=== PATIENT | female | born 1945 | race Caucasian/White ===

== ENCOUNTER → 2020-05-12 | Outpatient (CLI) | payer MEDICARE, OTHER, SELFPAY ==
[2016-10-01 10:11] VITALS: BMI 30.9
== END | disposition home or self-care (01) ==
PROVIDERS: PCP Family Medicine; Referring Provider Urology; Visit Provider Urology
DX: N39.0 Urinary tract infection, site not specified (principal)
CPT/HCPCS: 87086; 87088; 87186

== ENCOUNTER → 2020-10-13 | Outpatient (CLI) | payer MEDICARE, OTHER, SELFPAY | END | disposition home or self-care (01) | LOC: LABSPEC 17:04 | PROVIDERS: PCP Family Medicine; Visit Provider Nurse Practitioner Adult Health | DX: N30.00 Acute cystitis without hematuria (principal) | CPT/HCPCS: 87086; 87088; 87186 ==

== ENCOUNTER → 2020-11-17 10:15 | Outpatient (CLI) | payer MEDICARE, OTHER, SELFPAY ==
--- NOTE | 2020-11-17 10:40 | RAD_ITS ---
CLINICAL HISTORY: Female, 75 years old. Two-week history of knee pain. PROCEDURE: ARTHROGRAM - RIGHT KNEE CONSENT: The procedure as well as the benefits and possible complications including bleeding and infection were expanded to the patient. Informed consent was obtained. FLUOROSCOPY TIME (if supplied): (91 seconds) minutes/seconds Injection Information: 10 cc of dilute MRI contrast. Number of images obtained: 1 TECHNIQUE: (All elements of maximal sterile barrier technique followed, including US elements as applicable) The patient was in the supine position. The overlying skin was prepped and draped in usual sterile fashion. Following local anesthetic application and under direct fluoroscopic guidance, a 22-gauge spinal needle was placed into the knee joint. 10 cc of dilute MRI contrast was injected. The patient tolerated the procedure well. A CT scan will follow. RAD/Arthrogram Knee IMPRESSION: Successful right knee arthrogram. Electronically Signed: Conrado Harrison MD at 12:55 EDT , Service support ,
--- NOTE | 2020-11-17 11:02 | CT_ITS ---
STUDY: CT LEFT KNEE WITH CONTRAST REASON FOR EXAM: Female, 75 years old. Left knee pain following injury. RADIATION DOSAGE (If Supplied By Facility): CTDIvol = ( 15.35 ) mGy, DLP = ( 480.41 ) mGycm TECHNIQUE: Transaxial CT imaging of the knee was performed post intra-articular contrast administration of 10 cc of the MRI contrast. The examination was performed without intravenous administration of . Individualized dose optimization techniques were used for this CT. COMPARISON: None. FINDINGS: Subchondral sclerosis of the medial tibial plateau. Moderate degree of a joint space narrowing of the medial compartment of the knee joint. Normal lateral femoral condyle and lateral tibial plateau. There is preservation of the articular joint space of the lateral knee compartment. Normal proximal tibiofibular articulation. There is no joint effusion. There is no demonstrated abnormal enhancement. The quadriceps tendon is grossly normal. The patellar tendon is grossly normal. Normal Hoffa''s fat pad. The soft tissues are unremarkable. CT/Extremity Lower WITH Contrast IMPRESSION: Moderate degree of the joint space narrowing of the medial compartment of the knee joint with subchondral sclerosis of the medial tibial plateau. Electronically Signed: Conrado Harrison MD at 13:01 EDT , Service support ,
== END ==
PROVIDERS: PCP Family Medicine; Referring Provider Physician Assistant Surgical; Visit Provider Physician Assistant Surgical
DX: M17.12 Unilateral primary osteoarthritis, left knee (principal); S83.8X2A Sprain of other specified parts of left knee, initial encounter
CPT/HCPCS: 27369; 73580; 73701; A9575; Q9967

== ENCOUNTER → 2021-02-20 10:01 | Outpatient (CLI) | payer MEDICARE, OTHER, SELFPAY ==
[2021-02-20 12:43] LABS: Absolute Lymphocyte Count 2.08 X10^3/uL (0.83-4.51); Absolute Neutrophil Count 5.1 X10^3/uL (2.0-7.7); Basophil# 0.07 X10^3/uL; Basophil% 0.9 % (0-1); Eosinophil# 0.21 X10^3/uL; Eosinophils% 2.6 % (0-5); Hematocrit 43.3 % (37-47); Hemoglobin 14.2 g/dL (12.0-15.0); Lymphocyte # 2.08 X10^3/ul (0.83-4.51); Lymphocyte % 25.8 % (19-41); Mean Corp Hgb Conc 32.8 g/dL (32-36); Mean Corpuscular Hgb 31.5 pg (27.0-32.0); Mean Platelet Vol. 9.7 fl (6.2-12.0); Monocyte# 0.53 X10^3/uL; Monocyte% 6.6 % (0-10); NRBC Flagged by Analyzer 0 % (0-5); Neutrophil # 5.14 X10^3/uL (2.7-7.7); Neutrophil % 63.9 % (47-70); Platelet Count 351 K/mm3 (150-450); RBC Distribution Width CV 12.6 % (11.6-14.6); RBC Distribution Width SD 44.9 fl (35.1-43.9); Red Blood Count 4.51 M/mm3 (4.2-5.4); White Blood Count 8.1 K/mm3 (4.4-11.0)
[2021-02-20 12:57] LABS: Vitamin D,25 Hydroxy 36.7 ng/mL
[2021-02-20 13:04] LABS: AST(SGOT) 21 U/L (15-37); Alanine Aminotransfer ALT/SGPT 32 U/L (13-56); Albumin, Serum 3.8 g/dL (3.2-5.0); Alkaline Phosphatase 95 U/L (45-117); Anion Gap 8 (5-15); BUN 24 mg/dL (7-18); BUN/Creat Ratio 28.3 RATIO (10-20); Calcium,Total 9.4 mg/dL (8.5-10.1); Chloride 103 mmol/L (98-107); Creatinine, Serum 0.85 mg/dL (0.55-1.02); EST Glomerular Filtration Rate 69 mL/min (>60); Est Glom Filt Rate - Afr Amer 83 mL/min (>60); Globulin 3.7 g/dL (2.2-4.2); Glucose 96 mg/dL (74-106); Potassium 4.1 mmol/L (3.5-5.1); Protein, Total 7.5 g/dL (6.4-8.2); Sodium Level 137 mmol/L (136-145); Thyroid Stim Hormone (TSH) 4.24 uIU/mL (0.358-3.74)
== END ==
PROVIDERS: PCP Family Medicine Geriatric Medicine; Visit Provider Family Medicine Geriatric Medicine
DX: E55.9 Vitamin D deficiency, unspecified (principal); R53.83 Other fatigue
CPT/HCPCS: 36415; 80053; 82306; 84443; 85025

== ENCOUNTER → 2021-03-25 17:01 | Outpatient (CLI) | payer MEDICARE, OTHER, SELFPAY ==
--- NOTE | 2021-03-25 17:20 | CT_ITS ---
STUDY: CT BRAIN WITHOUT CONTRAST REASON FOR EXAM: Female, 75 years old. Injury. RADIATION DOSAGE (If Supplied By Facility): CTDIvol = ( 44.99 ) mGy, DLP = ( 779.24 ) mGycm TECHNIQUE: Transaxial CT imaging of the brain was performed without administration of intravenous contrast material. Individualized dose optimization techniques were used for this CT. COMPARISON: No relevant priors. FINDINGS: Normal soft tissue structures. Normal calvarium. There is mild cerebral atrophy with widening of the extra-axial spaces and ventricular dilatation. There are areas of decreased attenuation within the white matter tracts of the supratentorial brain, consistent with microvascular disease changes. There are small punctate calcifications of the basal ganglia which are seen in the aging brain as a normal variant. Normal brainstem. Normal cerebellum. 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 There is no intracranial hemorrhage. There are no findings of an acute ischemic infarction. Normal visualized paranasal sinuses. CT/Brain/Head without Contrast IMPRESSION: Chronic involutional changes without evidence of acute intracranial or calvarial abnormality. Electronically Signed: Charles Jasmine DO at 17:37 EST Tel [phone], Service support ,
[2021-03-25 18:17] LABS: Thyroid Stim Hormone (TSH) 3.13 uIU/mL (0.358-3.74)
== END ==
PROVIDERS: PCP Family Medicine Geriatric Medicine; Visit Provider Family Medicine Geriatric Medicine
DX: E03.9 Hypothyroidism, unspecified (principal); S09.90XD Unspecified injury of head, subsequent encounter
CPT/HCPCS: 36415; 70450; 84443

== ENCOUNTER 2021-05-02 10:52 | Emergency (ER) | payer MEDICARE, OTHER, SELFPAY ==
[2021-05-02 10:53] VITALS: BP 149/79; PULSE 86; RESP 16; TEMP 36.2; O2SAT 96; BMI 28.5
--- NOTE | 2021-05-02 11:14 | RAD_ITS ---
STUDY: X-RAY - RIGHT KNEE REASON FOR EXAM: Female, 75 years old. trauma fall this morning onto the knee TECHNIQUE: 4 view(s) of the knee. COMPARISON: None. FINDINGS: The knee is intact and located without fractures or lesions. There is moderate degeneration of the medial weightbearing compartment and mild patellofemoral. There is a small joint effusion. RAD/Knee 4 or More Views IMPRESSION: No acute osseous injury. Small joint effusion. Moderate medial compartment degeneration. Electronically Signed: Corazon Mcduffie MD at 11:47 EST Tel , Service support ,
--- NOTE | 2021-05-02 12:15 | EDS_ITS ---
HPI History of Present Illness Chief Complaint: Lower Extremity Injury Narrative Narrative: Patient fell out of bed injuring her right knee. She did not sustain any other injury. No head injury no loss consciousness no neck pain no upper extremity injury no chest pain or back pain [facility] Medical History GERD (gastroesophageal reflux disease) Hypothyroid Home Medications hydrocodone-acetaminophen 1 tab PO QHS PRN 3 Days #10 tab 05/02/21 [Rx Last Taken Unknown] Allergy/AdvReac Type Severity Reaction Status Date / Time rofecoxib [From Vioxx] Allergy Other Verified 05/02/21 10:54 Surgical History H/O lateral meniscus repair of right knee Social History Smoking Status: Never smoker ROS ROS ED ROS Narrative Past medical history: Reviewed Medications: Reviewed Social history: Noncontributory Review of systems: Musculoskeletal: Knee injury as in HPI Skin: No abrasions or lacerations Neurological: No weakness or paresthesias Hematologic: No easy bleeding or easy bruising EXAM Physical Exam Narrative Exam Narrative: Physical exam General: Patient does not appear in significant distress . Head: Normocephalic, Atraumatic Neck: No C-spine tenderness Cardiovascular: Normal distal pulses Back: Nontender, Normal Inspection. Extremities: Right knee shows normal knee there is a very slight effusion medially. No laxity to any other stressors normal extensor mechanism. Skin: No abrasions, no lacerations Neurological: Normal strength and sensation Const Vital Signs: 05/02/21 10:53 Temperature 97.2 F L Temperature Source Temporal Pulse Rate 86 Respiratory Rate 16 Blood Pressure 149/79 H Blood Pressure Mean 102 Pulse Ox 96 Oxygen Delivery Method Room Air MDM MDM MDM Narrative Medical decision making narrative: X-ray read by me and radiologist does not show any fracture. There is a small effusion. Patient be discharged with analgesia. No fracture. She is referred to orthopedics if she still has pain in a few days. Radiography Diagnostic Testing: Clinical Impression(s) from Imaging Studies Knee X-Ray 05/02/21 11:14 IMPRESSION: No acute osseous injury. Small joint effusion. Moderate medial compartment degeneration. Electronically Signed: Corazon Mcduffie MD at 11:47 EST Tel , Service support , Discharge Plan Triage Chief Complaint: Lower Extremity Injury ED Provider: Quentin Joya Dx/Rx/DC Orders Clinical Impression: Knee strain Instructions: ED Hip Strain Prescriptions: New hydrocodone-acetaminophen 5-325 mg tablet 1 tab PO QHS PRN (Reason: pain) 3 Days Qty: 10 RF: 0 Primary Care Provider: Israel Tucker Chi Referrals: Ty Sorensen DO [STAFF PHYSICIAN] - Israel Tucker Chi, MD [Primary Care Provider] -
== END 2021-05-02 13:42 | disposition home or self-care (01) ==
PROVIDERS: Emergency Provider Emergency Medicine; PCP Family Medicine Geriatric Medicine
DX: S76.911A Strain of unspecified muscles, fascia and tendons at thigh level, right thigh, initial encounter (principal); W06.XXXA Fall from bed, initial encounter
CPT/HCPCS: 73564; 99281; 99282

== ENCOUNTER 2021-05-21 13:23 | Outpatient (CLI) | payer MEDICARE, OTHER, SELFPAY ==
--- NOTE | 2021-05-21 13:40 | CT_ITS ---
STUDY: CT RIGHT KNEE WITHOUT CONTRAST REASON FOR EXAM: Female, 75 years old. CONTUSION RADIATION DOSAGE (If Supplied By Facility): CTDIvol = ( 15.35 ) mGy, DLP = ( 530.30 ) mGycm TECHNIQUE: Transaxial CT imaging of the knee was performed post contrast administration. The examination was performed without intravenous administration of . Individualized dose optimization techniques were used for this CT. COMPARISON: None. FINDINGS: Degenerative spur formation along the medial femoral condyle. Moderate degree of joint space of the medial compartment of the knee joint. Degenerative spur formation of the lateral femoral condyle. Mild degree of lateral compartment joint space narrowing. Normal proximal tibiofibular articulation. There is no joint effusion. There is no demonstrated abnormal enhancement. The quadriceps tendon is grossly normal. The patellar tendon is grossly normal. Normal Hoffa''s fat pad. Vascular calcification. CT/Extremity Lower without Contra IMPRESSION: Moderate degree of joint space narrowing of the medial compartment knee joint with mild degree of joint space narrowing of the lateral compartment and patellofemoral joint. Electronically Signed: Conrado Harrison MD at 14:14 EST , Service support ,
== END 2021-05-21 23:59 | disposition short-term general hospital (02) ==
LOC: CT 13:28
PROVIDERS: PCP Family Medicine Geriatric Medicine; Referring Provider Physician Assistant Surgical; Visit Provider Physician Assistant Surgical
DX: S80.01XA Contusion of right knee, initial encounter (principal)
CPT/HCPCS: 73700

== ENCOUNTER 2021-06-03 14:59 | Outpatient (CLI) | payer MEDICARE, OTHER, SELFPAY ==
[2021-06-03 16:13] LABS: Absolute Lymphocyte Count 1.47 X10^3/uL (0.83-4.51); Absolute Neutrophil Count 6.6 X10^3/uL (2.0-7.7); Basophil# 0.07 X10^3/uL; Basophil% 0.7 % (0-1); Eosinophil# 0.25 X10^3/uL; Eosinophils% 2.6 % (0-5); Hematocrit 42.5 % (37-47); Hemoglobin 13.9 g/dL (12.0-15.0); Lymphocyte # 1.47 X10^3/ul (0.83-4.51); Lymphocyte % 15.4 % (19-41); Mean Corp Hgb Conc 32.7 g/dL (32-36); Mean Corpuscular Hgb 30.4 pg (27.0-32.0); Mean Platelet Vol. 9.1 fl (6.2-12.0); Monocyte# 0.94 X10^3/uL; Monocyte% 9.9 % (0-10); NRBC Flagged by Analyzer 0 % (0-5); Neutrophil # 6.63 X10^3/uL (2.7-7.7); Neutrophil % 69.5 % (47-70); Platelet Count 361 K/mm3 (150-450); RBC Distribution Width CV 12.2 % (11.6-14.6); Red Blood Count 4.57 M/mm3 (4.2-5.4); White Blood Count 9.5 K/mm3 (4.4-11.0)
--- NOTE | 2021-06-03 16:21 | RAD_ITS ---
STUDY: X-RAY - ABDOMEN/PELVIS REASON FOR EXAM: Female, 75 years old. FECAL IMPACTION TECHNIQUE: AP supine and upright views of the abdomen and pelvis. COMPARISON: FINDINGS: There is left lower lobe atelectasis. There is moderate stool in the colon. There is mild to moderate stool within the visualized rectum. There are few mildly distended loops of small bowel in the left upper quadrant and featureless decompressed descending colon. The liver spleen and kidneys are mostly obscured. The visualized baclofen pump. A lead is overlying the left side of the pelvis. Normal soft tissue structures. There are diffuse degenerative changes of the visualized lumbar spine. There is visualized scoliosis. RAD/Abd Inc Decub and/or Erect IMPRESSION: Nonspecific bowel gas pattern with [id number] stool and gas in the colon. Moderate stool within the rectum. Minimal left lower lobe atelectasis. Electronically Signed: Johanna Huffman MD at 4:44 EST ,
[2021-06-03 16:35] LABS: Vitamin D,25 Hydroxy 25.7 ng/mL
[2021-06-04 08:13] LABS: ALB/GLOB Ratio 0.9 RATIO (0.9-2.4); AST(SGOT) 16 U/L (15-37); Alanine Aminotransfer ALT/SGPT 26 U/L (13-56); Albumin, Serum 3.3 g/dL (3.2-5.0); Alkaline Phosphatase 118 U/L (45-117); Anion Gap 8 (5-15); BUN 27 mg/dL (7-18); BUN/Creat Ratio 30.4 RATIO (10-20); Calcium,Total 8.7 mg/dL (8.5-10.1); Chloride 102 mmol/L (98-107); Creatinine, Serum 0.89 mg/dL (0.55-1.02); EST Glomerular Filtration Rate 66 mL/min (>60); Est Glom Filt Rate - Afr Amer 79 mL/min (>60); Globulin 3.8 g/dL (2.2-4.2); Glucose 118 mg/dL (74-106); Protein, Total 7.1 g/dL (6.4-8.2); Sodium Level 137 mmol/L (136-145); Thyroid Stim Hormone (TSH) 2.92 uIU/mL (0.358-3.74)
== END 2021-06-03 23:59 | disposition short-term general hospital (02) ==
LOC: POLAB3 15:03 → RAD 16:12
PROVIDERS: PCP Family Medicine Geriatric Medicine; Visit Provider Family Medicine Geriatric Medicine
DX: K56.41 Fecal impaction (principal); E55.9 Vitamin D deficiency, unspecified; R53.83 Other fatigue
CPT/HCPCS: 36415; 74019; 80053; 82306; 84443; 85025

== ENCOUNTER 2021-06-05 11:36 | Outpatient (CLI) | payer MEDICARE, OTHER, SELFPAY | END 2021-06-05 23:59 | disposition short-term general hospital (02) | LOC: LABSPEC 11:38 | PROVIDERS: PCP Family Medicine Geriatric Medicine; Visit Provider Family Medicine Geriatric Medicine | DX: R19.7 Diarrhea, unspecified (principal) | CPT/HCPCS: 82274; 83630; 87177; 87209; 87506 ==

== ENCOUNTER 2021-08-26 14:41 | Outpatient (CLI) | payer MEDICARE, OTHER, SELFPAY ==
--- NOTE | 2021-08-26 16:15 | RAD_ITS ---
STUDY: X-RAY - LUMBAR SPINE REASON FOR EXAM: Female, 76 years old. SCIATICA TECHNIQUE: 2 view(s) of the lumbar spine were obtained. COMPARISON: Abdominal x-rays 06/03/2021 FINDINGS: Vertebral bodies are normal in height. No definite fracture demonstrated. Anterior subluxation L3 on L4 of approximately 3 mm, and L4 on L5, 6 mm. Moderate curvature convex left. Disc space narrowing and osteophytes most pronounced at L1-L3. Marked facet arthropathy most pronounced at the lower lumbar levels. No paravertebral soft tissue mass identified. Device overlying the right iliac wing with electrode terminating over the left hemisacrum. RAD/Lumbar Spine 2 or 3 Views IMPRESSION: Anterolisthesis at L3-4 and L4-5 likely secondary to degenerative changes/facet arthropathy. Extensive degenerative changes and scoliosis. No evidence of fracture or traumatic subluxation. Electronically Signed: Yessy Avendaño MD at 2:46 EDT ,
[2021-08-26 16:40] LABS: Absolute Lymphocyte Count 1.75 X10^3/uL (0.83-4.51); Absolute Neutrophil Count 4.7 X10^3/uL (2.0-7.7); Basophil# 0.06 X10^3/uL; Basophil% 0.8 % (0-1); Eosinophil# 0.29 X10^3/uL; Eosinophils% 3.8 % (0-5); Hematocrit 40.6 % (37-47); Hemoglobin 12.9 g/dL (12.0-15.0); Lymphocyte # 1.75 X10^3/ul (0.83-4.51); Lymphocyte % 22.6 % (19-41); Mean Corp Hgb Conc 31.8 g/dL (32-36); Mean Corpuscular Hgb 29.8 pg (27.0-32.0); Mean Corpuscular Volume 93.8 fL (81-99); Mean Platelet Vol. 10.3 fl (6.2-12.0); Monocyte# 0.86 X10^3/uL; Monocyte% 11.1 % (0-10); NRBC Flagged by Analyzer 0 % (0-5); Neutrophil # 4.74 X10^3/uL (2.7-7.7); Neutrophil % 61.3 % (47-70); Platelet Count 356 K/mm3 (150-450); RBC Distribution Width CV 12.8 % (11.6-14.6); RBC Distribution Width SD 44.6 fl (35.1-43.9); Red Blood Count 4.33 M/mm3 (4.2-5.4); White Blood Count 7.7 K/mm3 (4.4-11.0)
[2021-08-26 16:46] LABS: Vitamin D,25 Hydroxy 22.4 ng/mL
[2021-08-26 16:51] LABS: Albumin, Serum 3.6 g/dL (3.2-5.0); BUN 23 mg/dL (7-18); BUN/Creat Ratio 23.6 RATIO (10-20); Creatinine, Serum 0.97 mg/dL (0.55-1.02); EST Glomerular Filtration Rate 59 mL/min (>60); Est Glom Filt Rate - Afr Amer 71 mL/min (>60); Glucose 112 mg/dL (74-106)
[2021-08-26 16:52] LABS: ALB/GLOB Ratio 1.1 RATIO (0.9-2.4); AST(SGOT) 20 U/L (15-37); Alanine Aminotransfer ALT/SGPT 26 U/L (13-56); Alkaline Phosphatase 108 U/L (45-117); Anion Gap 8 (5-15); Calcium,Total 8.5 mg/dL (8.5-10.1); Chloride 102 mmol/L (98-107); Globulin 3.4 g/dL (2.2-4.2); Potassium 4.3 mmol/L (3.5-5.1); Sodium Level 139 mmol/L (136-145); Thyroid Stim Hormone (TSH) 3.19 uIU/mL (0.358-3.74)
== END 2021-08-26 23:59 | disposition home or self-care (01) ==
LOC: POLAB3 14:43 → RAD 16:01
PROVIDERS: PCP Family Medicine Geriatric Medicine; Referring Provider Family Medicine Geriatric Medicine; Visit Provider Family Medicine Geriatric Medicine
DX: E55.9 Vitamin D deficiency, unspecified (principal); R53.83 Other fatigue; M54.30 Sciatica, unspecified side
CPT/HCPCS: 36415; 72100; 80053; 82306; 84443; 85025

== ENCOUNTER → 2021-10-07 | Outpatient (CLI) | payer MEDICARE, OTHER, SELFPAY ==
--- NOTE | 2021-10-07 10:22 | RAD_ITS ---
STUDY: X-RAY - LUMBAR SPINE REASON FOR EXAM: Female, 76 years old. PAIN IN LEG TECHNIQUE: XR Spine Lumbar 2 or 3 Views COMPARISON: Aug 26 2021 4:22pm FINDINGS: Normal lumbar lordosis. There is a levoscoliosis of the lumbar spine. There is a grade 1 anterolisthesis of L3 on L4 and L4 on L5. There is a right side sided subcutaneous implanted electronic device with leads extending into the spinal canal. This is likely an SCS (spinal cord stimulator). There is multilevel endplate spondylosis of the lumbar vertebrae. There is multi-level degenerative disc disease with multi-level disc space narrowing. There are atherosclerotic vascular calcifications. The soft tissue structures are unremarkable. RAD/Lumbar Spine 2 or 3 Views IMPRESSION: Degenerative changes of the spine, as detailed above. Electronically Signed: Willy Caldera MD at 17:21 EDT ,
== END | disposition home or self-care (01) ==
PROVIDERS: PCP Family Medicine Geriatric Medicine; Referring Provider Family Medicine Geriatric Medicine; Visit Provider Family Medicine Geriatric Medicine
DX: M79.606 Pain in leg, unspecified (principal)
CPT/HCPCS: 72100

== ENCOUNTER → 2021-10-15 | Outpatient (CLI) | payer MEDICARE, OTHER, SELFPAY ==
[2021-10-15 16:30] LABS: Absolute Lymphocyte Count 1.84 X10^3/uL (0.83-4.51); Absolute Neutrophil Count 6.1 X10^3/uL (2.0-7.7); Basophil# 0.06 X10^3/uL; Basophil% 0.7 % (0-1); Eosinophil# 0.19 X10^3/uL; Eosinophils% 2.1 % (0-5); Hematocrit 47.6 % (37-47); Hemoglobin 15.1 g/dL (12.0-15.0); Lymphocyte # 1.84 X10^3/ul (0.83-4.51); Mean Corp Hgb Conc 31.7 g/dL (32-36); Mean Corpuscular Volume 91.4 fL (81-99); Mean Platelet Vol. 9.9 fl (6.2-12.0); Monocyte# 0.93 X10^3/uL; Monocyte% 10.1 % (0-10); NRBC Flagged by Analyzer 0 % (0-5); Neutrophil # 6.14 X10^3/uL (2.7-7.7); Neutrophil % 66.6 % (47-70); Platelet Count 348 K/mm3 (150-450); RBC Distribution Width CV 12.3 % (11.6-14.6); RBC Distribution Width SD 41.1 fl (35.1-43.9); Red Blood Count 5.21 M/mm3 (4.2-5.4); White Blood Count 9.2 K/mm3 (4.4-11.0)
[2021-10-15 16:49] LABS: ALB/GLOB Ratio 1.1 RATIO (0.9-2.4); AST(SGOT) 20 U/L (15-37); Alanine Aminotransfer ALT/SGPT 34 U/L (13-56); Albumin, Serum 3.9 g/dL (3.2-5.0); Alkaline Phosphatase 115 U/L (45-117); Anion Gap 8 (5-15); BUN 20 mg/dL (7-18); Calcium,Total 9.5 mg/dL (8.5-10.1); Chloride 103 mmol/L (98-107); Creatinine, Serum 0.91 mg/dL (0.55-1.02); EST Glomerular Filtration Rate 64 mL/min (>60); Est Glom Filt Rate - Afr Amer 77 mL/min (>60); Globulin 3.6 g/dL (2.2-4.2); Glucose 83 mg/dL (74-106); Potassium 3.7 mmol/L (3.5-5.1); Protein, Total 7.5 g/dL (6.4-8.2); Sodium Level 137 mmol/L (136-145)
--- NOTE | 2021-10-15 17:00 | RAD_ITS ---
EXAM: XR ABDOMEN, 1 VIEW CLINICAL INDICATION: ABDOMINAL PAIN TECHNIQUE: Frontal supine view of the abdomen/pelvis. This report was created using Swift[employer] report generation technology. COMPARISON: None. FINDINGS: LOWER THORAX: No acute pathology. GASTROINTESTINAL TRACT: There are gas-filled loops of large and small bowel which may represent enteritis or ileus. ORGANS: Unremarkable as visualized. No organomegaly. No abnormal calcifications. BONES/JOINTS: There is a battery pack over the right hemipelvis with left sacrum. SOFT TISSUES: No acute pathology. RAD/Abdomen Single View IMPRESSION: Gas-filled loops of large and small bowel which may represent enteritis or a mild ileus. Electronically Signed: Faisal Alvarez MD at 15:26 EDT ,
== END | disposition home or self-care (01) ==
LOC: POLAB3 14:09 → RAD 16:46
PROVIDERS: PCP Family Medicine Geriatric Medicine; Referring Provider Family Medicine Geriatric Medicine; Visit Provider Family Medicine Geriatric Medicine
DX: R10.9 Unspecified abdominal pain (principal); R11.0 Nausea; N39.0 Urinary tract infection, site not specified
CPT/HCPCS: 36415; 74018; 80053; 85025; 87077; 87086; 87088; 87186

== ENCOUNTER → 2021-10-16 | Outpatient (CLI) | payer MEDICARE, OTHER, SELFPAY | END | disposition home or self-care (01) | LOC: LAB 08:57 | PROVIDERS: PCP Family Medicine Geriatric Medicine; Referring Provider Family Medicine Geriatric Medicine; Visit Provider Family Medicine Geriatric Medicine | DX: R19.7 Diarrhea, unspecified (principal) | CPT/HCPCS: 82274; 83630; 87177; 87209; 87493; 87506 ==

== ENCOUNTER 2021-10-23 09:58 | Emergency (ER) | payer OTHER, MEDICARE, SELFPAY ==
[2021-10-23 09:59] VITALS: BP 165/90; PULSE 87; RESP 17; TEMP 36.9; O2SAT 94
--- NOTE | 2021-10-23 10:17 | CT_ITS ---
STUDY: CT BRAIN WITHOUT CONTRAST REASON FOR EXAM: Female, 76 years old. Head injury. RADIATION DOSAGE (If Supplied By Facility): CTDIvol = ( 44.99 ) mGy, DLP = ( 779.24 ) mGycm TECHNIQUE: Transaxial CT imaging of the brain was performed without administration of intravenous contrast material. Individualized dose optimization techniques were used for this CT. COMPARISON: Comparison is made with prior study dated 03/25/2021. FINDINGS: Normal soft tissue structures. Normal calvarium. There is mild cerebral atrophy with widening of the extra-axial spaces and ventricular dilatation. There are areas of decreased attenuation within the white matter tracts of the supratentorial brain, consistent with microvascular disease changes. Normal basal ganglia and thalami. Normal brainstem. Normal cerebellum. Enlargement of the cisterna magna. There is a 5 mm dense nodule in the anterior aspect of the third ventricle. A colloid cyst should be ruled out. There is no intracranial hemorrhage. There are no findings of an acute ischemic infarction. Atherosclerotic calcific plaques of the vertebral arteries and cavernous portions of the internal carotid arteries bilaterally. Normal visualized paranasal sinuses. CT/Brain/Head without Contrast IMPRESSION: Chronic involutional changes of the brain. A 5 mm dense nodule is seen in the roof of the anterior aspect of the third ventricle. A colloid cyst should be ruled out. Electronically Signed: Conrado Harrison MD at 10:52 EDT ,
--- NOTE | 2021-10-23 10:17 | CT_ITS ---
STUDY: CT CERVICAL SPINE WITHOUT CONTRAST REASON FOR EXAM: Female, 76 years old. Injury RADIATION DOSAGE (If Supplied By Facility): CTDIvol = ( 21.29 ) mGy, DLP = ( 442.53 ) mGycm TECHNIQUE: High resolution transaxial imaging was performed without contrast material. Sagittal and coronal images were reconstructed. Individualized dose optimization techniques were used for this CT. COMPARISON: None FINDINGS: Normal craniovertebral junction. There are degenerative changes of the anterior atlantoaxial articulation. There is a 8.2 mm x 9.8 mm cystic nodule in the posterior aspect of the base of the odontoid. There is reversal of the normal cervical lordosis. Normal vertebral bodies and posterior osseous elements. C2-3: Normal endplates. Normal disc height and morphology. Normal central canal and intervertebral neuroforamina. C3-4: Facet joint osteoarthritis and hypertrophy. Bilateral neural foraminal stenosis. C4-5: Minimal anterior listhesis of C4 on C5. Facet joint osteoarthritis and hypertrophy worse on the left side. Mild degree of left neural foraminal stenosis. C5-6: Marked degree of disc space narrowing with spondylosis. Uncovertebral arthrosis. Bilateral neural foraminal stenosis right greater than left. C6-7: Moderate degree of disc space narrowing. Spondylosis. Facet joint osteoarthritis. C7-T1: Normal endplates. Normal disc height and morphology. Normal central canal and intervertebral neuroforamina. Atherosclerotic plaque formation of the carotid bifurcations bilaterally. CT/Spine Cervical without Contras IMPRESSION: Multilevel degenerative changes, as described above. Reversal of the normal cervical lordosis. 9.8 mm x 8.2 mm cystic nodule in the posterior aspect of the dens. Electronically Signed: Conrado Harrison MD at 10:54 EDT ,
--- NOTE | 2021-10-23 10:18 | EDS_ITS ---
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 She fell forward striking her head. No loss of consciousness. She states that 2 days ago she had fallen out of bed and had a hematoma on the occiput. She had some minor neck discomfort but now notes that after today's fall the neck is significantly more sore. She denies being on any blood thinners. She denies any other injuries. She denies any oral or mandibular injuries. [facility] Medical History (Updated 10/23/21 @ 11:[address] Ramakrishna Al DO) GERD (gastroesophageal reflux disease) Hypothyroid Home Medications hydrocodone-acetaminophen 5-325mg 5mg-325mg 1 tab PO QHS PRN pain 3 days #10 tabs 05/02/21 [Rx Last Taken Unknown] Allergy/AdvReac Type Severity Reaction Status Date / Time rofecoxib [From Vioxx] Allergy Other Verified 10/23/21 09:59 Surgical History (Updated 10/23/21 @ 10:29 by Jihan Mcghee) H/O lateral meniscus repair of right knee History of appendectomy History of cholecystectomy History of partial hysterectomy Social History (Updated 10/23/21 @ 10:[address] Ramakrishna Al DO) current gender identity: female Smoking Status: Never smoker substance use type: does not use EXAM Physical Exam Const Vital Signs: 10/23/21 09:59 10/23/21 10:28 Temperature 98.4 F Temperature Source Temporal Pulse Rate 87 Respiratory Rate 17 Respiratory Effort Normal Non-Labored Respiratory Depth Normal Respiratory Pattern Normal Blood Pressure 165/90 H Blood Pressure Mean 115 Pulse Ox 94 Oxygen Delivery Method Room Air Room Air Positive well nourished and well developed General Appearance ED: well developed HEENT Reports normocephalic and moist mucous membranes HEENT Narrative: There is a forehead hematoma Nose: external nose normal, nares normal and other Other Details: Specifically no septal hematoma Mouth ED: Yes other Mouth: other Other Details: Midface stable no dental trauma noted no malocclusion. Eyes PERRL and EOMs intact bilaterally Neck full ROM, no lymphadenopathy, supple and no JVD Neck Narrative: Patient is tenderness in the midline the upper cervical spine as well as in the paraspinal musculature Resp normal respiratory effort and clear to auscultation bilaterally Cardio regular rate, regular rhythm and no murmurs GI normal to inspection, nondistended, normoactive bowel sounds and non-tender Palpation: soft Back/Spine no CVA tenderness and normal ROM Extremity normal to inspection General Extremety ED: Negative for edema General Extremity: Negative for edema Neuro oriented x3 and CN's II-XII intact bilaterally Sensorium / Orientation: alert Motor Exam: strength 5/5 throughout Psych mental status grossly normal Mood & Affect: Negative for depressed or tearful Skin no rashes or lesions noted and no wounds MDM MDM MDM Narrative Medical decision making narrative: CT of the head and cervical spine were negative for fracture or hemorrhage. Patient will be discharged home with supportive care. Return if worsening or concerns Radiography Diagnostic Testing: Clinical Impression(s) from Imaging Studies Brain CT 10/23/21 10:17 IMPRESSION: Chronic involutional changes of the brain. A 5 mm dense nodule is seen in the roof of the anterior aspect of the third ventricle. A colloid cyst should be ruled out. Electronically Signed: Conrado Harrison MD at 10:52 EDT , Cervical Spine CT 10/23/21 10:17 IMPRESSION: Multilevel degenerative changes, as described above. Reversal of the normal cervical lordosis. 9.8 mm x 8.2 mm cystic nodule in the posterior aspect of the dens. Electronically Signed: Conrado Harrison MD at 10:54 EDT , Discharge Plan Triage Chief Complaint: Fall ED Provider: Ramakrishna Al Dx/Rx/DC Orders Clinical Impression: Closed head injury, Contusion of forehead, Acute cervical myofascial strain Instructions: ED Facial Contusion, ED Head Injury (Adult) Prescriptions: No Action hydrocodone-acetaminophen 5-325 mg tablet 1 tab PO QHS PRN (Reason: pain) 3 Days Qty: 10 0RF Primary Care Provider: Israel Tucker Chi Referrals: Israel Tucker Chi, MD [Primary Care Provider] - [facility] [NON-STAFF] - 3-5 Days Disposition Disposition: Home, Self Care
[2021-10-23 11:34] VITALS: BP 142/88; PULSE 73; RESP 15; O2SAT 98
== END 2021-10-23 11:34 | disposition home or self-care (01) ==
PROVIDERS: Emergency Provider Emergency Medicine; PCP Family Medicine Geriatric Medicine; Visit Provider Emergency Medicine
DX: S00.83XA Contusion of other part of head, initial encounter (principal); S16.1XXA Strain of muscle, fascia and tendon at neck level, initial encounter; W19.XXXA Unspecified fall, initial encounter
CPT/HCPCS: 70450; 72125; 99282

== ENCOUNTER → 2021-11-16 | Outpatient (CLI) | payer MEDICARE, OTHER, SELFPAY ==
--- NOTE | 2021-11-16 15:45 | MRI_ITS ---
STUDY: MRI BRAIN WITHOUT CONTRAST REASON FOR EXAM: Female, 76 years old. CONGENITAL CEREBRAL CYSTS TECHNIQUE: Standardized multiplanar fat and water weighted pulse sequences were obtained. COMPARISON: 03/25/2021 and 10/23/[address]''s FINDINGS: Normal size of the ventricles and extra-axial spaces for the patient''s age. Normal white matter tracts of the supratentorial brain. There is no evidence for recent intracranial ischemia or other cause of cytotoxic edema on diffusion weighted imaging (DWI). 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 Normal thalami. 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 Normal flow voids within the major intracranial circulation suggesting patency by spin echo criteria. Previously described dense nodule in the anterior third ventricle follows white matter on all sequences. Normal sella turcica, pituitary gland, infundibular stalk, optic chiasm and hypothalamus. Normal tectal plate and pineal gland. Normal midbrain, raj and medulla. Normal cerebellum. Normal basal cisterns. Normal bilateral temporal bones. Normal bilateral internal auditory canals. There are bilateral ocular lens implants with otherwise normal intraorbital contents Normal visualized paranasal sinuses. Normal calvarium and skull base. Normal visualized soft tissue structures. Normal visualized upper cervical spine. MRI/Brain without Contrast IMPRESSION: Probable interthalamic adhesion corresponds to dense nodule in the anterior third ventricle on recent CT. No finding of colloid cyst. Unchanged appearance of a cisterna magna versus arachnoid cyst. Electronically Signed: Quentin Carpenter MD at 4:39 EDT ,
== END | disposition home or self-care (01) ==
LOC: MRI 15:27
PROVIDERS: PCP Family Medicine Geriatric Medicine; Referring Provider Family Medicine Geriatric Medicine; Visit Provider Family Medicine Geriatric Medicine
DX: Q04.6 Congenital cerebral cysts (principal)
CPT/HCPCS: 70551

== ENCOUNTER → 2021-11-25 | Outpatient (CLI) | payer MEDICARE, OTHER, SELFPAY ==
[2021-11-25 16:19] LABS: Absolute Lymphocyte Count 1.59 X10^3/uL (0.83-4.51); Absolute Neutrophil Count 3.7 X10^3/uL (2.0-7.7); Basophil# 0.06 X10^3/uL; Eosinophil# 0.24 X10^3/uL; Eosinophils% 3.9 % (0-5); Hematocrit 42.8 % (37-47); Hemoglobin 13.7 g/dL (12.0-15.0); Lymphocyte # 1.59 X10^3/ul (0.83-4.51); Lymphocyte % 25.7 % (19-41); Mean Corpuscular Volume 90.7 fL (81-99); Mean Platelet Vol. 9.7 fl (6.2-12.0); Monocyte# 0.55 X10^3/uL; Monocyte% 8.9 % (0-10); NRBC Flagged by Analyzer 0 % (0-5); Neutrophil # 3.73 X10^3/uL (2.7-7.7); Neutrophil % 60.2 % (47-70); Platelet Count 340 K/mm3 (150-450); RBC Distribution Width CV 13.2 % (11.6-14.6); RBC Distribution Width SD 43.8 fl (35.1-43.9); Red Blood Count 4.72 M/mm3 (4.2-5.4); White Blood Count 6.2 K/mm3 (4.4-11.0)
[2021-11-25 16:34] LABS: Vitamin D,25 Hydroxy 26.3 ng/mL
[2021-11-25 16:45] LABS: ALB/GLOB Ratio 1.1 RATIO (0.9-2.4); AST(SGOT) 18 U/L (15-37); Alanine Aminotransfer ALT/SGPT 27 U/L (13-56); Albumin, Serum 3.6 g/dL (3.2-5.0); Alkaline Phosphatase 107 U/L (45-117); Anion Gap 5 (5-15); BUN 21 mg/dL (7-18); BUN/Creat Ratio 21.9 RATIO (10-20); Chloride 105 mmol/L (98-107); Creatinine, Serum 0.96 mg/dL (0.55-1.02); EST Glomerular Filtration Rate 60 mL/min (>60); Est Glom Filt Rate - Afr Amer 72 mL/min (>60); Globulin 3.3 g/dL (2.2-4.2); Glucose 140 mg/dL (74-106); Potassium 3.7 mmol/L (3.5-5.1); Protein, Total 6.9 g/dL (6.4-8.2); Sodium Level 140 mmol/L (136-145); Thyroid Stim Hormone (TSH) 2.11 uIU/mL (0.358-3.74)
== END | disposition home or self-care (01) ==
LOC: POLAB3 15:19
PROVIDERS: PCP Family Medicine Geriatric Medicine; Visit Provider Family Medicine Geriatric Medicine
DX: E55.9 Vitamin D deficiency, unspecified (principal); R53.83 Other fatigue
CPT/HCPCS: 36415; 80053; 82306; 84443; 85025

== ENCOUNTER 2022-03-26 18:15 | Emergency (ER) | payer MEDICARE, OTHER, SELFPAY ==
[2022-03-26 18:17] VITALS: BP 117/77; PULSE 86; RESP 18; TEMP 37.2; O2SAT 93; BMI 31.7
--- NOTE | 2022-03-26 18:35 | RAD_ITS ---
STUDY: X-RAY - UNILATERAL RIBS ( LEFT ) WITH CHEST REASON FOR EXAM: Female, 76 years old. On concrete. Left anterior rib pain. TECHNIQUE - RIBS: 4 view(s) of the ribs. TECHNIQUE - CHEST: Single PA view of the chest. COMPARISON: None. FINDINGS - RIBS: Normal visualized ribs without a demonstrated fracture. FINDINGS - CHEST: The lungs are clear and expanded. There is no demonstrated pleural abnormality. Normal size heart. Normal mediastinum and jonny. Normal visualized pulmonary arteries. There is atherosclerotic calcification of the aortic arch with tortuosity. There are diffuse degenerative changes of the visualized thoracic spine. Normal visualized ribs, clavicles, and shoulders. There is no demonstrated abnormality of the visualized soft tissue structures of the upper abdomen. RAD/Ribs Uni Min 3V w/PA Chest IMPRESSION: RIBS: Normal x-ray examination of the ribs. CHEST: Degenerative changes, as described above. No demonstrated acute cardiopulmonary process. Electronically Signed: Charles Jasmine DO at 19:00 EST ,
--- NOTE | 2022-03-26 18:38 | EDS_ITS ---
HPI <ASIF Whalen - Last Filed: 03/26/22 19:36> History of Present Illness Chief Complaint: Fall Narrative Narrative: 76-year-old female with history of arthritis, hypertension, lipidemia presents to the emergency department with left rib pain following a fall which occurred 4 days ago. Patient was walking out of a building, her left knee gave out, falling to her left side She does work at [employer] and she is continuously moving, she noticed that while she was doing some movements with her upper extremities, she had worsening pain to her left ribs. Patient denies any other injury. Patient has a head and neck injury. Patient is currently noyt any blood thinners. PFSH <ASIF Whalen - Last Filed: 03/26/22 19:36> [facility] Medical History (Updated 03/26/22 @ 19:34 by ASIF Whalen) GERD (gastroesophageal reflux disease) Hypothyroid Home Medications hydrocodone-acetaminophen 5-325mg 5mg-325mg 1 tab PO QHS PRN pain 3 days #10 tabs 05/02/21 [Rx Last Taken Unknown] hydrocodone-acetaminophen 5-325mg 5mg-325mg 1 tab PO Q6H PRN pain 3 days #10 tabs 03/26/22 [Rx Last Taken Unknown] Allergy/AdvReac Type Severity Reaction Status Date / Time rofecoxib [From Vioxx] Allergy Unknown Verified 03/26/22 18:17 Surgical History H/O lateral meniscus repair of right knee History of appendectomy History of cholecystectomy History of partial hysterectomy Social History (Updated 10/23/21 @ 10:[address] Ramakrishna Al, DO) Smoking Status: Never smoker substance use type: does not use ROS <ASIF Whalen - Last Filed: 03/26/22 19:36> ROS ED ROS Narrative Constitutional: Negative for fever, chills, weight loss, weakness Eyes: Negative for vision loss, vision change, double vision ENT: Negative for any sore throat, ear pain, congestion Cardiovascular: Negative for any chest pain, tightness, palpitations Respiratory: Negative for any cough, sputum production, hemoptysis, dyspnea, dyspnea on exertion, orthopnea Gastrointestinal: Negative for any abdominal pain, nausea, vomiting, diarrhea, constipation, blood in stool, blood in vomit : Negative for any urinary frequency, dysuria, retention, blood in urine Muscle skeletal: Negative for any muscle joint pain, stiffness, myalgias, arthralgias, neck pain, back pain. Positive for left rib pain Neurological: Negative for any headache, syncope, numbness or tingling, dizziness Skin: Negative for any rashes, lumps, itching, abrasions, lacerations Psychiatric: Negative for any depression, anxiety, stress, suicidal ideation, homicidal ideation Hematologic: Negative for any easy bruising, excessive bruising, easy bleeding Allergies: Negative for any eczema, hives, rash EXAM <ASIF Whalen - Last Filed: 03/26/22 19:36> Physical Exam Narrative Exam Narrative: Vital signs reviewed. HEET: Head normocephalic atraumatic, TMs clear bilaterally. Posterior pharynx is clear, moist mucous membranes. Nares clear bilaterally. Neck: Supple with no lymphadenopathy or tenderness. No signs of meningismus, negative jolt sign. Cardiac: Regular rate and rhythm no murmurs gallops or rubs, equal peripheral pulses bilaterally. Respiratory: Lungs clear to auscultation bilaterally. Patient has some left- sided chest tenderness to her lateral left ribs. There is no crepitus, ecchymosis, edema. Equal lung sounds throughout. Abdomen: Soft, nontender, nondistended. No abdominal bruit or pulsatile masses. No hepatosplenomegaly Extremities: No peripheral edema, no signs of gross trauma or deformity. Active full range of motion of all extremities. Neuro: Cranial nerves II through XII intact, no focal neurological deficits. Skin: Clean dry and intact with no rash, purpura, petechiae, vesicles or pustules. Backs/flank: No CVA tenderness, no midline spinal tenderness, no deformity. Psych: Normal mood and affect. No SI, HI or acute psychosis. Const Vital Signs: 03/26/22 18:17 03/26/22 18:29 Temperature 98.9 F Temperature Source Temporal Pulse Rate 86 Respiratory Rate 18 Respiratory Effort Normal Respiratory Depth Normal Respiratory Pattern Normal Blood Pressure 117/77 Blood Pressure Mean 90 Pulse Ox 93 Oxygen Delivery Method Room Air Room Air <Dr. Marilee Munguia MD - Last Filed: 03/26/22 19:43> Physical Exam Const Vital Signs: 03/26/22 18:17 03/26/22 18:29 Temperature 98.9 F Temperature Source Temporal Pulse Rate 86 Respiratory Rate 18 Respiratory Effort Normal Respiratory Depth Normal Respiratory Pattern Normal Blood Pressure 117/77 Blood Pressure Mean 90 Pulse Ox 93 Oxygen Delivery Method Room Air Room Air [facility] <Quentin BlackASIF gross - Last Filed: 03/26/22 19:36> [facility] Radiography Diagnostic Testing: Clinical Impression(s) from Imaging Studies Ribs w/Chest X-Ray 03/26/22 18:35 IMPRESSION: RIBS: Normal x-ray examination of the ribs. CHEST: Degenerative changes, as described above. No demonstrated acute cardiopulmonary process. Electronically Signed: Charles Jasmine DO at 19:00 EST Reading Location ID and State: [employer] / [place] Tel [phone], Service support , Treatment and Re-Evaluation Narrative: Patient appears well, patient appears nontoxic, vital signs are stable. Patient presents to the emergency department with complaints of left rib pain after a fall 3 days ago. Patient did receive x-rays of the left rib series, these were entered by ER physician, there was possible fractures on the lateral view x2. Patient will be given incentive spirometer. She is instructed to use this 10 times every hour while awake. She will also be given a short course of Medora for pain. She instructed to ice heat and perform gentle stretching. Patient given strict return precaution return for any cough, fever chills nausea vomiting. Patient stable for discharge <Dr. Marilee Munguia MD - Last Filed: 03/26/22 19:43> [facility] Radiography Diagnostic Testing: Clinical Impression(s) from Imaging Studies Ribs w/Chest X-Ray 03/26/22 18:35 IMPRESSION: RIBS: Normal x-ray examination of the ribs. CHEST: Degenerative changes, as described above. No demonstrated acute cardiopulmonary process. Electronically Signed: Charles Jasmine DO at 19:00 EST , Treatment and Re-Evaluation Narrative: Patient appears well, patient appears nontoxic, vital signs are stable. Patient presents to the emergency department with complaints of left rib pain after a fall 3 days ago. Patient did receive x-rays of the left rib series, these were entered by ER physician, there was possible fractures on the lateral view x2. Patient will be given incentive spirometer. She is instructed to use this 10 times every hour while awake. She will also be given a short course of Medora for pain. She instructed to ice heat and perform gentle stretching. Patient given strict return precaution return for any cough, fever chills nausea vomiting. Patient stable for discharge Patient seen and evaluated with [facility]E. I personally interviewed and examined the patient. I was involved in all aspects of patient's orders, interpretation of results, and treatment. Patient presents with left lateral lower rib pain after a fall 3 days ago. She landed on concrete. She states has been icing the area. She continues to have pain. She states she does feel somewhat short of breath. Patient sitting upright in bed no acute distress. Speaking full sentences. Head and neck examination unremarkable. Heart is regular rate and rhythm. Lung sounds are clear. Chest wall is tender along the left lateral lower border. No crepitus noted. Abdomen is soft and nontender. Rib series with chest x-ray obtained. Per my interpretation it appears there are 2 cracked ribs on the left lateral lower border. Radiology has read the images as normal. This was discussed with the patient and we did advise her that it does not change our management. She will be written for analgesics to use as needed. Return instructions given. Discharge Plan Triage Chief Complaint: Fall ED Midlevel Provider: Quentin Mckeon ED Provider: Marilee Munguia Dx/Rx/DC Orders Clinical Impression: Fall, Fracture of rib Instructions: ED Rib Fracture Prescriptions: New hydrocodone-acetaminophen 5-325 mg tablet 1 tab PO Q6H PRN (Reason: pain) 3 Days Qty: 10 0RF No Action hydrocodone-acetaminophen 5-325 mg tablet 1 tab PO QHS PRN (Reason: pain) 3 Days Qty: 10 0RF Primary Care Provider: Richard Cruz Referrals: Richard Cruz MD [Primary Care Provider] - Activity Restrictions/Additional Instructions: Please use the incentive spirometer 10 times every hour while awake. Return for any signs or symptoms of pneumonia, fever or chills. Disposition Disposition: Home, Self Care
[2022-03-26 19:56] VITALS: RESP 18
== END 2022-03-26 19:57 | disposition home or self-care (01) ==
PROVIDERS: Emergency Provider Emergency Medicine; PCP Family Medicine; Visit Provider Emergency Medicine
DX: S22.39XA Fracture of one rib, unspecified side, initial encounter for closed fracture (principal); I10 Essential (primary) hypertension; W19.XXXA Unspecified fall, initial encounter
CPT/HCPCS: 71101; 99251; 99252; 99282; G0463

== ENCOUNTER 2022-06-11 06:08 | Emergency (ER) | payer MEDICARE, OTHER, SELFPAY ==
[2022-06-11 06:09] VITALS: BP 156/74; PULSE 100; RESP 16; TEMP 36.8; O2SAT 95; BMI 32.1
--- NOTE | 2022-06-11 06:30 | CT_ITS ---
INDICATION: fall EXAMINATION: CT CERVICAL SPINE - CT Spine Cervical W/O Contrast Injection TECHNIQUE: Helically acquired images were obtained of the cervical spine. 2D reformatted images were reviewed. A radiation dose optimization technique was used for this scan. IV Contrast dosage and agent: None. COMPARISON: CT cervical spine 10/23/2021. FINDINGS: ALIGNMENT: Minimal anterior subluxation of C4 on C5, unchanged. Straightening of the normal curvature. MINERALIZATION: Normal. VERTEBRAL BODIES: No fracture or acute abnormality. Cystic change at the base of the odontoid, unchanged DISC SPACES: Disc space narrowing with osteophytes most pronounced C5-C7. POSTERIOR ELEMENTS: Facet arthropathy at multiple levels. SPINAL CANAL: Maintained. PARASPINAL SOFT TISSUES: Unremarkable. OTHER: None. CT/Spine Cervical without Contras IMPRESSION: No evidence of fracture or traumatic subluxation. Minimal anterolisthesis at C4-5 likely secondary to degenerative changes. Straightening of the normal curvature may be due to positioning or muscle spasm. No significant change compared to prior study. Electronically Signed: Yessy Avendaño MD at 7:23 EST ,
--- NOTE | 2022-06-11 06:30 | CT_ITS ---
INDICATION: head trauma EXAMINATION: CT FACIAL BONES - CT Maxillofacial W/O Contrast Injection TECHNIQUE: Helically acquired images were obtained of the facial bones. A radiation dose optimization technique was used for this scan. IV Contrast dosage and agent: None. COMPARISON: None. FINDINGS: ORBITS: No fracture demonstrated. Globes appear intact. No retrobulbar hematoma. NASAL BONES: Unremarkable. NASOETHMOID COMPLEX: Unremarkable. ZYGOMATIC ARCHES: Unremarkable. MAXILLAE: Unremarkable. PTERYGOID PLATES: Unremarkable. MANDIBLE: No fracture demonstrated. No dislocation at the temporomandibular joints. SINUSES: Minimal mucosal thickening in the maxillary sinuses. No fluid levels. SOFT TISSUES: Mild swelling right supraorbital/frontal region. OTHER: None. CT/Sinus/Facial Bone IMPRESSION: No evidence of fracture. Electronically Signed: Yessy Avendaño MD at 7:27 EST ,
--- NOTE | 2022-06-11 06:30 | CT_ITS ---
INDICATION: head injury EXAMINATION: CT BRAIN - CT Head or Brain W/O Contrast Injection TECHNIQUE: Multiple axial images were obtained of the head without intravenous contrast. A radiation dose optimization technique was used for this scan. IV Contrast dosage and agent: None. COMPARISON: CT head 10/23/2021, MRI report 11/16/2021. FINDINGS: BRAIN: No acute bleed. No edema. Decreased attenuation in the periventricular white matter bilaterally. Old lacunar infarct in the right basal ganglia Murphy-white matter differentiation is maintained. Arterial calcifications. VENTRICLES AND SULCI: Ventricles are not enlarged, stable. Small hyperdense 5 mm nodule at the third ventricle unchanged. Sulci are prominent EXTRA-AXIAL: No hemorrhage, fluid collection, or mass. CALVARIUM / SKULL BASE: Unremarkable. FACE/SINUSES: Unremarkable. SOFT TISSUES: Mild swelling in the right frontal scalp anteriorly. CT/Brain/Head without Contrast IMPRESSION: Scalp contusion. No evidence of acute intracranial injury. Chronic microvascular ischemic disease. Small hyperdense nodule in the third ventricle unchanged. Electronically Signed: Yessy Avendaño MD at 7:18 EST ,
[2022-06-11] MEDS: Lidocaine/Epi/Tetracaine 50 ML 1 APPLIC TOPICAL (06:38)
--- NOTE | 2022-06-11 06:45 | RAD_ITS ---
INDICATION: fall EXAMINATION/TECHNIQUE: X-RAY - XR Pelvis 1 or 2 Views COMPARISON: None. FINDINGS: No definite fracture demonstrated. Femoral heads are normal in contour. No dislocation of the hips. Device overlying the right iliac wing with electrode projecting over the left hemisacrum. RAD/Pelvis 1 or 2 Views IMPRESSION: No evidence of fracture on single view pelvis. Electronically Signed: Yessy Avendaño MD at 7:29 EST ,
--- NOTE | 2022-06-11 06:45 | RAD_ITS ---
INDICATION: pain EXAMINATION/TECHNIQUE: X-RAY - RIGHT XR Knee 3 Views 3 VIEWS COMPARISON: None. FINDINGS: SOFT TISSUES: No soft tissue swelling or gas. No radiopaque foreign body. BONES/JOINTS: Severe degenerative arthrosis. Small joint effusion. No sclerotic or destructive changes observed. RAD/Knee 3 Views IMPRESSION: Severe degenerative arthrosis. Electronically Signed: Araceli Fu MD at 7:16 EST ,
--- NOTE | 2022-06-11 06:50 | EX.ED.DYSGE1 ---
HPI History of Present Illness Chief Complaint: Fall Narrative Narrative: Patient is a 76-year-old female with past medical history of hypothyroidism neurogenic bladder GERD and previous skull fracture. She states she was in bed last night when she accidentally rolled over and fell out of bed. She states she fell approximately 2 feet landing on a wooden floor. She states she did strike her head/face. She denies any loss of consciousness. She states she tried to get back up and lost her balance once again and fell from a kneeling position back to the ground and struck her head once again. Again she states there is no loss of consciousness with this injury. She states that she developed a knot on her forehead from the trauma and she iced it but despite this she had increased bruising and with her previous history of underlying skull fracture she was concerned for repeat injury with this fall and therefore comes in for evaluation [facility] Medical History GERD (gastroesophageal reflux disease) Hypothyroid Home Medications donepezil 10 mg tablet 10 mg PO DAILY 06/11/22 [History Last Taken Unknown] famotidine 40 mg tablet 40 mg PO DAILY 06/11/22 [History Last Taken Unknown] fluoxetine 40 mg capsule 40 mg PO DAILY 06/11/22 [History Last Taken Unknown] levothyroxine 25 mcg tablet (Synthroid) 25 mcg PO DAILY 06/11/22 [History Last Taken Unknown] meloxicam 7.5 mg tablet 7.5 mg PO DAILY 06/11/22 [History Last Taken Unknown] mirabegron 50 mg tablet,extended release 24 hr (Myrbetriq) 50 mg PO DAILY 06/11/22 [History Last Taken Unknown] pantoprazole 40 mg granules delayed-release for susp in packet 40 mg PO DAILY 06/11/22 [History Last Taken Unknown] Allergy/AdvReac Type Severity Reaction Status Date / Time rofecoxib [From Vioxx] Allergy Unknown Verified 06/11/22 06:14 Surgical History H/O lateral meniscus repair of right knee History of appendectomy History of cholecystectomy History of partial hysterectomy Social History Smoking Status: Never smoker substance use type: does not use ROS ROS ED Constitutional Constitutional ED: Denies chills or fever(s) Eyes Eyes: Denies change in vision ENT ENT ED: Denies sore throat Cardiovascular Cardiovascular: Denies chest pain Respiratory/Chest Respiratory/Chest: Denies cough or dyspnea Gastrointestinal Gastrointestinal: Denies abdominal pain, diarrhea, nausea or vomiting Genitourinary Genitourinary ED: Denies dysuria Musculoskeletal Musculoskeletal: Reports other Details: Positive right knee pain ; Denies back pain, myalgias or neck pain Integumentary Denies rash Neurologic Neurologic: Denies headache(s), paresthesias or weakness Hematologic/Lymphatic Hematologic/Lymphatic: Denies easy bleeding or easy bruising EXAM Physical Exam Const Vital Signs: 06/11/22 06:09 06/11/22 06:18 Temperature 98.2 F Temperature Source Temporal Pulse Rate 100 Respiratory Rate 16 Respiratory Effort Normal Blood Pressure 156/74 H Blood Pressure Mean 101 Pulse Ox 95 Oxygen Delivery Method Room Air Positive well nourished, well developed and obese General Appearance ED: well developed Nutritional Appearance: obese HEENT Reports moist mucous membranes HEENT Narrative: No signs of depressed or basilar skull fracture. Patient has a 2 x 2 centimeter hematoma with ecchymosis tracking down the right side of her frontal bone towards the orbit consistent with report of trauma. No septal hematoma noted. Patient does have a small 1 cm skin laceration to the right portion of the upper lip that does not involve the vermilion border without active bleeding or foreign body. The wound is dermal layer deep Eyes PERRL and EOMs intact bilaterally Eyes Narrative: No hyphema noted Neck supple Neck Narrative: No bony deformity or step-off of the cervical spine no midline pain on palpation Patient can move her neck in all directions without pain Chest Wall palpation of chest normal Chest Narrative: No bony deformity or crepitance Resp normal respiratory effort and clear to auscultation bilaterally Cardio regular rate and regular rhythm GI normal to inspection, nondistended, normoactive bowel sounds, non-tender, non-distended and no masses Auscultation: normoactive bowel sounds Palpation: soft Back/Spine Back/Spine Narrative: No bony deformity or step-off of the thoracic or lumbar spine no midline pain on palpation Extremity Extremity Narrative: Pelvis is stable there is no shortening or external rotation of either lower extremity. Patient does have mild pain on palpation over top the superior and inferior pubic rami region on the right There is mild soft tissue swelling to the anterior aspect of the right knee with pain on palpation over top the patella. No obvious bony deformity or joint effusion. Patellar tendon is intact and knee ligaments are stable. Remainder of the exam is normal. Neuro oriented x3, CN's II-XII intact bilaterally and no sensory deficits noted Sensorium / Orientation: alert Psych mental status grossly normal Skin Skin Narrative: Hematoma to the forehead as documented above along with upper lip skin laceration MDM MDM MDM Narrative Medical decision making narrative: Patient presented to the ER with a mechanical fall and therefore there was no need for cardiac or syncope work-up. With the physical exam showing signs of head injury I did elect to perform CTs of the head neck and face. This revealed hematoma consistent with her history and exam but no underlying trauma. Imaging of the long bones also revealed no acute fracture or dislocation. The patient's lip laceration was sutured as documented below. Following this as work-up reveals no signs of acute trauma and patient reports has been able to ambulate since the fall there is no need for further work-up and she is otherwise safe for discharge Patient had the upper lip laceration cleaned with chlorhexidine. It was anesthetized with 4 mL of 1% lidocaine without epinephrine in local fashion. The wound was copiously irrigated with normal saline then three 5-0 Ethilon sutures were placed in simple interrupted fashion. This brought the wound together with good approximation. Patient tolerated procedure well without complication Radiography Diagnostic Testing: Clinical Impression(s) from Imaging Studies Brain CT 06/11/22 06:30 IMPRESSION: Scalp contusion. No evidence of acute intracranial injury. Chronic microvascular ischemic disease. Small hyperdense nodule in the third ventricle unchanged. Electronically Signed: Yessy Avendaño MD at 7:18 EST , Cervical Spine CT 06/11/22 06:30 IMPRESSION: No evidence of fracture or traumatic subluxation. Minimal anterolisthesis at C4-5 likely secondary to degenerative changes. Straightening of the normal curvature may be due to positioning or muscle spasm. No significant change compared to prior study. Electronically Signed: Yessy Avendaño MD at 7:23 EST , Facial/Sinus 06/11/22 06:30 IMPRESSION: No evidence of fracture. Electronically Signed: Yessy Avendaño MD at 7:27 EST , Knee X-Ray 06/11/22 06:45 IMPRESSION: Severe degenerative arthrosis. Electronically Signed: Araceli Fu MD at 7:16 EST , Pelvis X-Ray 06/11/22 06:45 IMPRESSION: No evidence of fracture on single view pelvis. Electronically Signed: Yessy Avendaño MD at 7:29 EST , X-ray of the right knee as interpreted by the emergency medicine physician reveals no acute fracture dislocation or joint effusion 1 view pelvis x-ray as interpreted by the emergency medicine physician reveals no acute fracture or dislocation Discharge Plan Triage Chief Complaint: Fall ED Provider: Jesus Duenas Dx/Rx/DC Orders Clinical Impression: Closed head injury, Hematoma of frontal scalp, Facial laceration, Contusion of right knee Instructions: ED Head Injury (Adult), ED Hematoma, ED Laceration: All Closures Prescriptions: No Action fluoxetine 40 mg Capsule 40 mg PO DAILY donepezil 10 mg Tablet 10 mg PO DAILY famotidine 40 mg Tablet 40 mg PO DAILY levothyroxine [Synthroid] 25 mcg Tablet 25 mcg PO DAILY meloxicam 7.5 mg Tablet 7.5 mg PO DAILY pantoprazole [address] For Susp In Packet 40 mg PO DAILY Myrbetriq 50 mg Tablet Extended Release 24 Hr 50 mg PO DAILY Primary Care Provider: Richard Cruz Referrals: Richard Cruz MD [Primary Care Provider] - Activity Restrictions/Additional Instructions: Please return to the ER or see your family doctor in 5 to 7 days for suture removal. Your work-up today revealed no signs of underlying head trauma such as skull fracture or brain bleed or broken bones Disposition Disposition: Home, Self Care
[2022-06-11 07:51] VITALS: BP 129/74; PULSE 68; RESP 15; O2SAT 98
== END 2022-06-11 07:52 | disposition home or self-care (01) ==
PROVIDERS: Emergency Provider Emergency Medicine; PCP Family Medicine; Visit Provider Emergency Medicine
DX: S01.511A Laceration without foreign body of lip, initial encounter (principal); S80.01XA Contusion of right knee, initial encounter; K21.9 Gastro-esophageal reflux disease without esophagitis; E66.9 Obesity, unspecified; Z79.899 Other long term (current) drug therapy
CPT/HCPCS: 12011; 70450; 70486; 72125; 72170; 73562; 99283

== ENCOUNTER → 2022-09-09 | Outpatient (CLI) | payer MEDICARE, OTHER, SELFPAY ==
--- NOTE | 2022-09-09 15:02 | CT_ITS ---
INDICATION: NEOPLASM OF UNCERTAIN BEHAIVOR OF BLADDER A radiation dose optimization technique was used for this scan. COMPARISON: Comparison abdominal radiograph 10/15/2021 and pelvis radiograph 06/11/2022. IV Contrast dosage and agent: IV 100mL Isovue-300 Radiation CTDIvol 17.4 Radiation DLP 2233.23 FINDINGS: Contrast enhanced serial CT axial images through the abdomen and pelvis with coronal and sagittal reformatted series. PANCREAS: No peripancreatic fat stranding. BOWEL/MESENTERY: No dilated bowel loops. No significant free fluid. No free air. GALLBLADDER: Appears to be absent. LIVER/STOMACH: No obvious abnormality. URINARY COLLECTING SYSTEM/ KIDNEYS: No obstructing ureteral calculus. No significant renal parenchymal abnormality. Although urinary bladder is nondistended and unopacified, there appears to be urinary bladder wall thickening and perivesicular hazy fat stranding suggesting cystitis, however, no comparison is available to document stability of this finding. APPENDIX: Appendix is not definitely identified, however, there are no significant right lower quadrant inflammatory fat changes or focal fluid collection to suggest acute appendicitis. LUNG BASES: Left lung base thin linear atelectasis versus. BONES: Lumbar levoscoliosis. Old left lateral rib fracture deformities. Right flank neurostimulator lead wire tip at left L3-L4 level. CT/Abdomen/Pelvis W IV Cont ONLY IMPRESSION: Although urinary bladder is nondistended and unopacified, there appears to be urinary bladder wall thickening and perivesicular hazy fat stranding suggesting cystitis, however, no comparison is available to document stability of this finding in this patient with history of urinary bladder neoplasm. Appendix is not definitely identified, however, there are no significant right lower quadrant inflammatory fat changes or focal fluid collection to suggest acute appendicitis. Otherwise, no other definite acute abdominal abnormality is identified, to include no evidence of obstructing ureteral calculus. Electronically Signed: Alber Mccray MD at 23:25 EDT ,
[2022-09-09 15:41] LABS: CREATININE FINGERSTICK 1.1 mg/dL (0.55-1.02)
== END | disposition home or self-care (01) ==
LOC: CT 14:52
PROVIDERS: PCP Family Medicine; Visit Provider Urology
DX: D41.4 Neoplasm of uncertain behavior of bladder (principal)
CPT/HCPCS: 74177; Q9967

== ENCOUNTER 2022-09-10 12:23 | Day surgery (SDC) | payer MEDICARE, OTHER, SELFPAY ==
[2022-09-07 08:48] LABS: Hematocrit 44.7 % (37-47); Hemoglobin 14.1 g/dL (12.0-15.0); Mean Corp Hgb Conc 31.5 g/dL (32-36); Mean Corpuscular Hgb 29.9 pg (27.0-32.0); Mean Corpuscular Volume 94.7 fL (81-99); Mean Platelet Vol. 9.4 fl (6.2-12.0); Platelet Count 377 K/mm3 (150-450); RBC Distribution Width CV 13.6 % (11.6-14.6); RBC Distribution Width SD 47.5 fl (35.1-43.9); Red Blood Count 4.72 M/mm3 (4.2-5.4)
[2022-09-07 08:59] LABS: International Normalized Ratio 0.9; Partial Thromboplast Time 23.9 Seconds (24.1-36.2); Prothrombin Time (Protime)PT. 12.3 SECONDS (11.7-14.9)
[2022-09-07 09:31] LABS: AST(SGOT) 16 U/L (15-37); Alanine Aminotransfer ALT/SGPT 23 U/L (13-56); Albumin, Serum 3.6 g/dL (3.2-5.0); Alkaline Phosphatase 117 U/L (45-117); Bilirubin, Direct 0.08 mg/dL (0.00-0.30); Globulin 3.4 g/dL (2.2-4.2)
[2022-09-10 12:56] VITALS: BP 136/88; PULSE 94; RESP 16; TEMP 36.2; O2SAT 95; BMI 30.4
[2022-09-10] MEDS: Lactated Ringers 1,000 ML 15 ML IV (13:00)
--- NOTE | 2022-09-10 14:40 | BLA_PTH ---
PATIENT: ALLAN SEGURA [place] [facility] [place][id number] AGE/SX: 77/F ROOM: RE09/10/[address]: Dr. Rory Gomez MD : 1945 BED: DIS: 09/10/2022 SPEC #: [id number] RECD: 09/10/22 15:55 STATUS: MAULIK WINSTON #: [id number] IZA: 09/10/22 14:[address]: Rory Gomez DEPT: SURGICAL PATHOLOGY RECD BY: Sobia Negron ENTERED: 09/13/22 10:07 SP TYPE: BLADDER BX OTHR DR: MD Dr. Richard Calhoun MD Tissues: Urinary bladder, NOS Procedures: Surgery Specimen Level IV HEADER OPERATION: Cystoscopy, bladder biopsy, fulguration PRE-OP DIAGNOSIS: Bladder lesion TISSUE SUBMITTED: Bladder biopsy MICROSCOPIC DIAGNOSIS Urinary bladder, biopsy: Chronic cystitis. See comment. AM:meng 09/14/2022 COMMENT The majority of the chronic infiltrates consist of eosinophils with a smaller population of plasma cells and polymorphous lymphocytes. Clinical correlation is suggested. MICROSCOPIC DESCRIPTION Slides are reviewed. GROSS DESCRIPTION Received in fixative is one container labeled with the patient's name and designated bladder biopsy. The specimen consists of one irregular fragment of light lorenzo soft tissue that measures 0.2 x 0.1 x 0.1 cm. The specimen is totally submitted in one cassette. / SJ:meng 09/13/2022 TC:3 CPT:
--- NOTE | 2022-09-10 14:52 | HP.PCM_ITS ---
HPI - General HPI Narrative ALLAN SEGURA, is a 77 F who presents a diagnostic cystoscopy possible bladder biopsy possible transurethral section of bladder tumor around in the office he had a cystoscopy that was abnormal so organ to do a biopsies there was a concern of possible malignancy in the bladder. [facility] Medical History (Updated 09/06/22 @ 14:09 by Fara Duarte) Bladder disease Depression Easy bruising Excessive bleeding GERD (gastroesophageal reflux disease) High cholesterol Hypothyroid Non-smoker Overactive bladder PONV (postoperative nausea and vomiting) Wears glasses Home Medications donepezil 10 mg tablet 10 mg PO DAILY MEMORY 06/11/22 [History Last Taken Unknown] famotidine 40 mg tablet 40 mg PO DAILY GERD 06/11/22 [History Last Taken Unknown] fluoxetine 40 mg capsule 40 mg PO DAILY DEPRESSION 06/11/22 [History Last Taken Unknown] levothyroxine 25 mcg tablet (Synthroid) 25 mcg PO DAILY THYROID 06/11/22 [ History Last Taken 09/10/22] mirabegron 50 mg tablet,extended release 24 hr (Myrbetriq) 50 mg PO DAILY OAB 06/11/22 [History Last Taken Unknown] pantoprazole 40 mg granules delayed-release for susp in packet 40 mg PO DAILY 06/11/22 [History Last Taken 09/10/22] ciprofloxacin HCl 500 mg tablet (Cipro) 500 mg PO BID #6 tabs 09/10/22 [Rx Last Taken Unknown] Allergy/AdvReac Type Severity Reaction Status Date / Time rofecoxib [From Vioxx] Allergy Unknown Verified 09/10/22 12:55 Surgical History (Updated 09/06/22 @ 13:55 by Fara Duarte) H/O lateral meniscus repair of right knee History of appendectomy History of bladder surgery History of cholecystectomy History of partial hysterectomy Social History Smoking Status: Never smoker substance use type: does not use Vital Signs Vital Signs Vital Signs: 09/10/22 12:56 09/10/22 12:56 Temperature 97.2 F L Temperature Source Temporal Pulse Rate 94 Respiratory Rate 16 Respiratory Pattern Normal Blood Pressure 136/88 H Blood Pressure Mean 104 Blood Pressure Source Monitor Blood Pressure Position Semi-Fowlers Blood Pressure Location Left Arm Pulse Ox 95 Oxygen Delivery Method Room Air Weight Weight: 78 kg Body Mass Index (BMI) 30.4 Results Lab / Micro Data Result Diagrams: 09/07/22 08:20
--- NOTE | 2022-09-10 14:53 | DCINST_ITS ---
Discharge Instructions Diet Discharge Diet: No restrictions, Light diet - advance as tolerated and Soft diet Activity Discharge Activity: Return to Normal Activity Follow Up Care Please Follow Up With: Rory Gomez MD When: call for appt. Test Results: Test results from this visit will be discussed in further detail at your follow- up appointment, if applicable. Discharge Plan Admission Primary Reason for Your Visit: bladder biopsy Attending Provider: Rory Gomez Primary Care Provider: Richard Cruz Consulting Providers: Jose Sotelo Instructions Patient Instructions: Bladder Tumor Transureth Resect Discharge Orders/Prescriptions Prescriptions: New ciprofloxacin HCl [Cipro] 500 mg tablet 500 mg PO BID Qty: 6 0RF Continued fluoxetine 40 mg Capsule 40 mg PO DAILY donepezil 10 mg Tablet 10 mg PO DAILY famotidine 40 mg Tablet 40 mg PO DAILY levothyroxine [Synthroid] 25 mcg Tablet 25 mcg PO DAILY pantoprazole [address] For Susp In Packet 40 mg PO DAILY Myrbetriq 50 mg Tablet Extended Release 24 Hr 50 mg PO DAILY Referrals / Follow Up: Rory Gomez MD [Med Staff - Active Staff] - Richard Cruz MD [Primary Care Provider] - Disposition Disposition (needs filled in before D/C Order can be placed): Home, Self Care
[2022-09-10] MEDS: Cefazolin 2 GM in 0.9% Normal Saline 100 ML IV (14:57)
--- NOTE | 2022-09-10 15:24 | OP.PCM_ITS ---
Report of Operation Date of Procedure: 09/10/22 Pre-Operative Diagnosis: Bladder lesion Post-Operative Diagnosis: The same Surgery/Procedure Performed:: Cystoscopy bladder biopsy and fulguration of lesion in the dome of the bladder Description of Surgical Findings:: Is a 77-year-old female who I saw in the office for overactive bladder and urge incontinence on cystoscopy was found to have an ulcerative lesion in the dome of the bladder so today she taken back to the operating due to biopsy and fulguration of this lesion. She is placed in dorsolithotomy position within the bladder with a right 21 Upper Sorbian rigid cystourethroscope afterwards after she had undergone a sterilization and prepped. Inside the bladder and a nice smooth mucosa there was an ulcerative lesion in the dome of the bladder up in the anterior part of the bladder a biopsy was taken of this I then used the Bugbee electrode curve the Bugbee electrode and cauterized the area extensively to control bleeding there was no bleeding I then emptied the bladder cystoscope was removed and she is taken back to the PACU in good condition on inspection this appeared to be a benign lesion on inspection but a biopsy was taken to be sure. She will follow-up in the office in a few weeks for check Surgeon: Rory Gomez Type of Anesthesia: General Drains: none Estimated Blood Loss (mL): 0 Admit VTE Documentation VTE Present on Admission: No VTE Mechan Device Prophylaxis: SCD's VTE Pharm Prophylaxis ordered?: No
[2022-09-10 15:38] VITALS: BP 136/88; BP 160/94; PULSE 96; RESP 16; TEMP 36.2; O2SAT 98
[2022-09-10 15:45] VITALS: BP 136/88; BP 162/93; PULSE 91; RESP 16; O2SAT 94
[2022-09-10 16:00] VITALS: BP 136/88; BP 156/84; PULSE 90; RESP 16; O2SAT 94
[2022-09-10 16:04] VITALS: BP 136/88; BP 156/84; PULSE 88; RESP 16; TEMP 36.4; O2SAT 93
== END 2022-09-10 17:00 | disposition home or self-care (01) ==
LOC: SDC 12:24 → AC 12:24
PROVIDERS: Anesthesiology; PCP Family Medicine; Referring Provider Urology; Visit Provider Urology
PROC: 0TBB8ZZ Excision of Bladder, Via Natural or Artificial Opening Endoscopic (ICD-10-PCS; CPT 52204; principal; 2022-09-10 14:30)
DX: N30.20 Other chronic cystitis without hematuria (principal); N32.81 Overactive bladder; E78.00 Pure hypercholesterolemia, unspecified; E03.9 Hypothyroidism, unspecified; K21.9 Gastro-esophageal reflux disease without esophagitis; F32.A Depression, unspecified; Z79.890 Hormone replacement therapy; Z79.899 Other long term (current) drug therapy
CPT/HCPCS: 52204; 00910; 36415; 80076; 84443; 85027; 85610; 85730; 88305; 93005; J7120; J2405

== ENCOUNTER 2022-10-08 19:31 | Emergency (ER) | payer MEDICARE, OTHER, SELFPAY ==
[2022-10-08 19:32] VITALS: BP 203/93; PULSE 99; RESP 19; TEMP 37.1; O2SAT 96
[2022-10-08 19:34] VITALS: BMI 31.0
[2022-10-08 20:47] VITALS: O2SAT 98
--- NOTE | 2022-10-08 22:06 | CT_ITS ---
INDICATION: head injury EXAMINATION: CT BRAIN - CT Head or Brain W/O Contrast Injection TECHNIQUE: Multiple axial images were obtained of the head without intravenous contrast. A radiation dose optimization technique was used for this scan. IV Contrast dosage and agent: None. RADIATION DOSAGE (If Supplied By Facility): CTDIvol = ( 44.99 ) mGy, DLP = ( 812.98 ) mGycm COMPARISON: CT brain 06/11/2022 FINDINGS: BRAIN: Chronic lacunar infarct in the right basal ganglia, similar compared to the prior. Posterior fossa cystic changes, similar compared to the prior. VENTRICLES: The ventricles and cortical sulci are mildly enlarged, similar compared to the prior. 6 mm hyperattenuating nodule in the anterior aspect of the third ventricle, similar compared to the prior. Bilateral periventricular hypoattenuation, nonspecific however likely represents chronic microvascular ischemic changes. EXTRA-AXIAL SPACES: No hemorrhages, fluid collections, or masses. CALVARIUM/SKULL BASE: Normal. FACE/SINUSES: Visualized portions normal. SOFT TISSUES: Posterior left scalp soft tissue swelling and hematoma measuring approximately 2 cm.. OTHER: Vascular calcifications. CT/Brain/Head without Contrast IMPRESSION: 1. No intracranial hemorrhage or depressed calvarial fracture. 2. Senescent changes and hyperattenuating 6 mm third ventricular nodule, similar compared to the prior. Electronically Signed: Ryland Grimes MD at 22:24 EDT ,
--- NOTE | 2022-10-08 22:59 | EDS_ITS ---
HPI HPI - Fall History of Present Illness Chief Complaint: Fall Narrative Narrative: 77-year-old female with gait instability presenting after a fall. She states she was walking across a parking lot and misstep with a right foot and fell backwards hitting her head. No LOC. No nausea, vomiting. Patient states this is a chronic issue and she had blood work done this month. She was referred to neurology who stated they wanted her to get into physical therapy and she supposed to have some follow-up testing on her feet as I thought this was part of the problem. She denies any extremity pain or injury. She not anticoagulated on any blood thinners. [facility] Medical History Bladder disease Depression Easy bruising Excessive bleeding GERD (gastroesophageal reflux disease) High cholesterol Hypothyroid Non-smoker Overactive bladder PONV (postoperative nausea and vomiting) Wears glasses Home Medications donepezil 10 mg tablet 10 mg PO DAILY MEMORY 06/11/22 [History Last Taken Unknown] famotidine 40 mg tablet 40 mg PO DAILY GERD 06/11/22 [History Last Taken Unknown] fluoxetine 40 mg capsule 40 mg PO DAILY DEPRESSION 06/11/22 [History Last Taken Unknown] levothyroxine 25 mcg tablet (Synthroid) 25 mcg PO DAILY THYROID 06/11/22 [History Last Taken 09/10/22] mirabegron 50 mg tablet,extended release 24 hr (Myrbetriq) 50 mg PO DAILY OAB 06/11/22 [History Last Taken Unknown] pantoprazole 40 mg granules delayed-release for susp in packet 40 mg PO DAILY 06/11/22 [History Last Taken 09/10/22] ciprofloxacin HCl 500 mg tablet (Cipro) 500 mg PO BID #6 tabs 09/10/22 [Rx Last Taken Unknown] Allergy/AdvReac Type Severity Reaction Status Date / Time rofecoxib [From Vioxx] Allergy Unknown Verified 10/08/22 19:32 Surgical History H/O lateral meniscus repair of right knee History of appendectomy History of bladder surgery History of cholecystectomy History of partial hysterectomy Social History Smoking Status: Never smoker substance use type: does not use ROS ROS ED Constitutional Constitutional ED: Denies chills, fever(s) or sweats Eyes Eyes: Denies blurry vision or change in vision ENT ENT ED: Denies ear pain or sore throat Cardiovascular Cardiovascular: Denies chest pain, palpitations or racing heartbeat Respiratory/Chest Respiratory/Chest: Denies cough, dyspnea or sputum Gastrointestinal Gastrointestinal: Denies abdominal pain, constipation, diarrhea, nausea or vomiting Genitourinary Genitourinary ED: Denies dysuria, hematuria or urinary frequency Musculoskeletal Musculoskeletal: Denies arthralgias, myalgias or neck pain Integumentary Reports other Details: Superficial abrasion to the occiput. ; Denies abscess, Abrasions or rash Neurologic Neurologic: Denies headache(s), paresthesias or weakness Psychiatric Psychiatric: Denies anxiety, depression, suicidal ideation or suicidal thoughts Endocrine Endocrinology: Denies polydipsia or polyuria EXAM Physical Exam Const Vital Signs: 10/08/22 19:32 10/08/22 20:47 Temperature 98.8 F Temperature Source Temporal Pulse Rate 99 Respiratory Rate 19 H Respiratory Effort Normal Non-Labored Respiratory Depth Normal Respiratory Pattern Normal Blood Pressure 203/93 H Blood Pressure Mean 129 Pulse Ox 96 98 Oxygen Delivery Method Room Air Room Air Positive well nourished General Appearance ED: NAD HEENT Reports normocephalic HEENT Narrative: 3 cm superficial abrasion to the occiput in the midline. Eyes PERRL and EOMs intact bilaterally Neck full ROM Neck Narrative: No midline spinal tenderness, deformity, step-off. Resp normal respiratory effort and no retractions Cardio regular rate and regular rhythm Neuro oriented x3 and CN's II-XII intact bilaterally Sensorium / Orientation: alert Motor Exam: strength 5/5 throughout Psych mental status grossly normal MDM MDM MDM Narrative Medical decision making narrative: Patient presenting with mechanical fall history. She fell and hit her head. No LOC. No red flag signs or symptoms. She is on any blood thinners. Has not any neck pain. CT of the brain was obtained and is negative for acute or cranial findings. Patient counseled on this. He is discharged home in stable condition. Impression: 1. Mechanical fall 2. Closed head injury 3. Superficial scalp abrasion Radiography Diagnostic Testing: Clinical Impression(s) from Imaging Studies Brain CT 10/08/22 22:06 IMPRESSION: 1. No intracranial hemorrhage or depressed calvarial fracture. 2. Senescent changes and hyperattenuating 6 mm third ventricular nodule, similar compared to the prior. Electronically Signed: Ryland Grimes MD at 22:24 EDT , Discharge Plan Triage Chief Complaint: Fall ED Provider: Abe Pinedo Dx/Rx/DC Orders Instructions: ED Head Injury (Adult), ED Fall Prevention Prescriptions: No Action fluoxetine 40 mg Capsule 40 mg PO DAILY donepezil 10 mg Tablet 10 mg PO DAILY famotidine 40 mg Tablet 40 mg PO DAILY levothyroxine [Synthroid] 25 mcg Tablet 25 mcg PO DAILY pantoprazole [address] For Susp In Packet 40 mg PO DAILY Myrbetriq 50 mg Tablet Extended Release 24 Hr 50 mg PO DAILY ciprofloxacin HCl [Cipro] 500 mg tablet 500 mg PO BID Qty: 6 0RF Primary Care Provider: Richard Cruz Referrals: Richard Cruz MD [Primary Care Provider] - Disposition Disposition: Home, Self Care
[2022-10-08 23:26] VITALS: BP 154/76; PULSE 87; RESP 16; TEMP 36.7; O2SAT 99
== END 2022-10-08 23:28 | disposition home or self-care (01) ==
PROVIDERS: Emergency Provider Student in an Organized Health Care Education/Training Program; PCP Family Medicine; Visit Provider Student in an Organized Health Care Education/Training Program
DX: S00.01XA Abrasion of scalp, initial encounter (principal); E78.00 Pure hypercholesterolemia, unspecified; W18.30XA Fall on same level, unspecified, initial encounter
CPT/HCPCS: 70450; 99284

== ENCOUNTER 2023-04-06 10:57 | Day surgery (SDC) | payer MEDICARE, OTHER, SELFPAY ==
[2023-04-06 11:37] VITALS: BP 134/84; PULSE 86; RESP 16; TEMP 36.9; O2SAT 93; BMI 32.1
[2023-04-06] MEDS: Lactated Ringers 1,000 ML 15 ML IV (11:45)
--- NOTE | 2023-04-06 14:01 | PCM.HP.STD ---
HPI - General General Date of Service: 04/06/23 Chief Complaint: InterStim battery not working worn out HPI Narrative ALLAN SEGURA, is a 77 F who presents stage II InterStim therapy change of B battery and generator FOR[facility] Medical History (Updated 03/28/23 @ 15:10 by Laya Thomas) Ambulates with cane Arthritis Asthma Back pain CPAP (continuous positive airway pressure) dependence Depression Easy bruising GERD (gastroesophageal reflux disease) High cholesterol History of pain when walking Hypothyroid Injury of head and neck Loss of hearing Non-smoker Overactive bladder PONV (postoperative nausea and vomiting) Post-menopausal Wears glasses Home Medications donepezil 10 mg tablet 10 mg PO DAILY MEMORY 06/11/22 [History Last Taken Unknown] famotidine 40 mg tablet 40 mg PO QHS GERD 06/11/22 [History Last Taken Unknown] fluoxetine 40 mg capsule 40 mg PO DAILY DEPRESSION 06/11/22 [History Last Taken Unknown] levothyroxine 25 mcg tablet (Synthroid) 25 mcg PO DAILY THYROID 06/11/22 [History Last Taken 04/06/23] mirabegron 50 mg tablet,extended release 24 hr (Myrbetriq) 50 mg PO DAILY OAB 06/11/22 [History Last Taken Unknown] pantoprazole 40 mg granules delayed-release for susp in packet 40 mg PO DAILY 06/11/22 [History Last Taken 04/06/23] ezetimibe 10 mg tablet 10 mg PO DAILY 03/28/23 [History Last Taken Unknown] solifenacin 10 mg tablet 10 mg PO QHS 03/28/23 [History Last Taken Unknown] Allergy/AdvReac Type Severity Reaction Status Date / Time rofecoxib [From Vioxx] Allergy Unknown Verified 03/28/23 14:51 Surgical History (Updated 03/28/23 @ 15:10 by Laya Thomas) H/O lateral meniscus repair of right knee History of appendectomy History of bladder surgery History of cholecystectomy History of partial hysterectomy Hx of surgical biopsy Social History Smoking Status: Never smoker substance use type: does not use Vital Signs Vital Signs Vital Signs: 04/06/23 11:37 04/06/23 11:37 Temperature 98.4 F Temperature Source Temporal Pulse Rate 86 Respiratory Rate 16 Respiratory Pattern Normal Blood Pressure 134/84 H Blood Pressure Mean 100 Blood Pressure Source Monitor Blood Pressure Position Semi-Fowlers Blood Pressure Location Left Arm Pulse Ox 93 Oxygen Delivery Method Room Air Weight Weight: 82.2 kg Body Mass Index (BMI) 32.1
--- NOTE | 2023-04-06 14:04 | DCINST_ITS ---
Discharge Instructions Diet Discharge Diet: No restrictions Activity Discharge Activity: Return to Normal Activity and May Not Drive (while taking narcotic pain medications.) Dressing / Incision Call your doctor if you observe: Fever of 101 or Higher Follow Up Care Please Follow Up With: Rory Gomez MD When: Call [phone] for an appointment Test Results: Test results from this visit will be discussed in further detail at your follow- up appointment, if applicable. Discharge Plan Admission Primary Reason for Your Visit: New battery and generator for InterStim Attending Provider: Rory Gomez Primary Care Provider: Richard Cruz Discharge Orders/Prescriptions Prescriptions: New cephalexin 500 mg capsule 1,000 mg PO BID Qty: 10 0RF oxycodone 5 mg tablet 5 mg PO Q6H PRN (Reason: pain) 7 Days Qty: 10 0RF Continued fluoxetine 40 mg Capsule 40 mg PO DAILY donepezil 10 mg Tablet 10 mg PO DAILY famotidine 40 mg Tablet 40 mg PO QHS levothyroxine [Synthroid] 25 mcg Tablet 25 mcg PO DAILY pantoprazole [address] For Susp In Packet 40 mg PO DAILY Myrbetriq 50 mg Tablet Extended Release 24 Hr 50 mg PO DAILY solifenacin 10 mg tablet 10 mg PO QHS ezetimibe 10 mg tablet 10 mg PO DAILY Referrals / Follow Up: Richard Cruz MD [Primary Care Provider] - Disposition Disposition (needs filled in before D/C Order can be placed): Home, Self Care
[2023-04-06] MEDS: Lidocaine 1% (20 ml mdv) 20 ML Vial (14:39)
--- NOTE | 2023-04-06 14:55 | OP.PCM_ITS ---
Report of Operation Date of Procedure: 04/06/23 Pre-Operative Diagnosis: InterStim therapy stage II of battery depleted Post-Operative Diagnosis: Same Surgery/Procedure Performed:: InterStim therapy, stage II Description of Surgical Findings:: The patient presents to the operating room for placement of stage II interstim therapuy therapy. She also wishes to proceed with stage II InterStim therapy as it has improved her symptoms significantly, her battery in the original implant has worn off and is not effective anymore. The patient understands these is no guarantees that in the future the InterStim therapy will keep working to the p atient's satisfaction and its always possible and it may need to have a surgical revision, change in implant, possible revision or removal of implant. We also talk about the risks of pain with stimulation, bleeding and infection or any injury to nerves or bony structures and the tailbone area. After reviewing all this with the patient in the preoperative area she signed the consent form and we proceeded with stage II interstim therapy implant. Patient was brought back to the operating room and placed supine on the table and then transferred to facedown the table and underwent sedation with comfort hugging a pillow. Patient's lower back was prepped and draped in usual sterile fashion, I then palpated the bony landmarks identify the tailbone the sacrum and the pocket area was identified where the fast food shift lead would be implanted and also the lead. The temporary lead was then cut off from the Bluetooth device. We made an incision over the pocket and remove the temporary extension from the permanent lead and the suture that was holding the temporary extension was removed. The end of the permanent lead was inspected and there was no signs of any damage and was cleaned thoroughly. We then brought over the generator from the kit. After this was confirmed then pocket opened up to allow for the placement of the generator and the patient's lateral side. Then the generator was opened and I made sure I cleaned the lead completely I attached the lead to the generator use the screwdriver provided in the kit to then secure the bolt secure the lead to the generator prior to doing this again checked the lead 0, 1, 2, 3 and there was still good stimulation at all sites. I then placed the lead into the generator and the generator was put into the pocket that was created. I made sure that the generator was placed with InterStim labeling side up and was oriented appropriately. I then checked for impedance using the [employer] rep had the device checked in the impedance was normal with no abnormal impedance and all leads in all 4-lead sites were programmed and responded normally. The generator was then programmed to ensure good proper stimulation of the InterStim device this was done in the operating room, after complex programming was completed we finished with fluoroscopy I then closed the insertion site with subcuticular stitches and Steri-Strips and bandages and then closed the pocket with subcuticular stitches and Steri-Strips and bandages. The patient's anesthetic was reversed patient was taken back to the recovery room in stable condition and further training and education will be given to the patient regarding how to use the new InterStim therapy. Surgeon: Rory Gomez Type of Anesthesia: General Drains: none Admit VTE Documentation VTE Present on Admission: No VTE Mechan Device Prophylaxis: SCD's VTE Pharm Prophylaxis ordered?: No
[2023-04-06] MEDS: Cefazolin 2 GM in 0.9% Normal Saline (100mL Bag) 100 ML IV (14:58)
[2023-04-06 15:03] VITALS: BP 116/75; BP 134/84; PULSE 91; RESP 16; TEMP 36.2; O2SAT 98
[2023-04-06 15:15] VITALS: BP 134/84; BP 141/85; PULSE 91; RESP 16; O2SAT 97
[2023-04-06 15:30] VITALS: BP 133/70; BP 134/84; PULSE 82; RESP 16; TEMP 36; O2SAT 93
[2023-04-06] MEDS: Ketorolac 15 MG/ML Vial IV (15:33)
[2023-04-06 16:20] VITALS: BP 134/84; BP 150/83; PULSE 84; RESP 16; TEMP 36.9; O2SAT 96
== END 2023-04-06 16:20 | disposition home or self-care (01) ==
LOC: SDC 11:00 → AC 11:01
PROVIDERS: PCP Family Medicine; Referring Provider Urology; Visit Provider Urology
PROC: (CPT 64590; principal; 2023-04-06 12:55)
DX: Z45.42 Encounter for adjustment and management of neurostimulator (principal); N32.81 Overactive bladder; N39.46 Mixed incontinence; E78.00 Pure hypercholesterolemia, unspecified; E03.9 Hypothyroidism, unspecified; Z79.890 Hormone replacement therapy; Z79.899 Other long term (current) drug therapy
CPT/HCPCS: 64590; 00300; J7120; C1767

== ENCOUNTER 2023-08-20 12:18 | Emergency (ER) | payer MEDICARE, OTHER, SELFPAY ==
[2023-08-20 12:20] VITALS: BP 148/88; PULSE 95; RESP 26; TEMP 36.6; O2SAT 93; BMI 34.9
--- NOTE | 2023-08-20 12:32 | CT_ITS ---
EXAM: CT HEAD WITHOUT INTRAVENOUS CONTRAST CLINICAL INDICATION: head injury TECHNIQUE: Multiple axial images were obtained of the head without intravenous contrast. This CT exam was performed using one or more of the following dose reduction techniques: automated exposure control, adjustment of the mA and/or kV according to patient size, and/or use of iterative reconstruction technique. COMPARISON: CT Head dated 10/26/2022 FINDINGS: BRAIN AND EXTRA-AXIAL SPACES: No hemorrhage or mass effect. No acute ischemia. Areas of diminished white matter density noted within both cerebral hemispheres suggestive of chronic microvascular change. Stable chronic lacunar type infarct of the right clay radiata. Prominence of the cortical sulci and ventricles related to volume loss change. 4 mm focus of increased density at the foramen of Grant suggestive of an incidental colloid cyst. Stable prominent CSF space along the posterior midline of the posterior fossa which may represent cisterna magna variant or an arachnoid cyst. BONES/JOINTS: Normal calvarium. SINUSES: No acute sinusitis. MASTOID AIR CELLS: Normal. Clear. CT/Brain/Head without Contrast IMPRESSION: 1. No acute intracranial abnormality. 2. Stable chronic microvascular changes. Electronically Signed: Tyshawn Love MD at 14:17 EDT ,
--- NOTE | 2023-08-20 12:32 | CT_ITS ---
EXAM: CT CERVICAL SPINE WITHOUT INTRAVENOUS CONTRAST CLINICAL INDICATION: neck injury TECHNIQUE: Helically acquired images were obtained of the cervical spine without intravenous contrast. 2D reformatted images were reviewed. This CT exam was performed using one or more of the following dose reduction techniques: automated exposure control, adjustment of the mA and/or kV according to patient size, and/or use of iterative reconstruction technique. COMPARISON: No relevant prior studies available. FINDINGS: VERTEBRAE: Acute type II odontoid fracture noted extending through 16mm subchondral cyst. 13 and 9 mm bone densities superior and posterior to the odontoid process suggestive of old odontoid fractures. Mild anterior listhesis of C4 on C5 likely related to underlying degenerative change. Multilevel facet arthropathy. Prominent disc space narrowing and vertebral body hypertrophy noted at C5-6 and C6-7. Narrowing of the C5-6 and C6-7 neural foramina related to uncinate joint hypertrophy. DISCS/SPINAL CANAL/NEURAL FORAMINA: Spinal stenosis noted at the C2-3, C3-4, C4-5 and C5-6 levels related to disc herniation. SOFT TISSUES: Normal. No prevertebral soft tissue swelling. LYMPH NODES: Normal. No cervical adenopathy. LUNG APICES: Unremarkable as visualized. CT/Spine Cervical without Contras IMPRESSION: 1. Acute pathologic type II odontoid fracture. 2. Findings suggestive of chronic odontoid fracture. 3. Prominent spondylosis with multilevel spinal and neural foraminal stenoses as described. N.B. : The above Results were Read Back by Tyshawn Love MD to Quentin Mckeon NP, and understanding confirmed on 08/20/2023 13:16:13 (ET). Electronically Signed: Tyshawn Love MD at 13:19 EDT ,
[2023-08-20] MEDS: Lidocaine 1% /Epi 1:100 (20ml) 20 ML Vial INFILT (12:37)
--- NOTE | 2023-08-20 12:37 | EDS_ITS ---
HPI <ASIF Whalen - Last Filed: 08/20/23 15:53> History of Present Illness Chief Complaint: Fall Narrative Narrative: Patient is an 78-year-old female with history of hypertension, hyperlipidemia, hypothyroidism, bladder spasms, right arm tremor who presents to the emergency department after mechanical fall. Patient states that she was sitting on the edge of a chair when she slipped off, falling backward striking her head on a corner of a wooden table. Patient was concerned because it was bleeding. Patient now has a headache, she denies any LOC, he is currently on any blood thinners. Patient's tetanus vaccine was within the last 5 years. COUNTS INCLUDE 234 BEDS AT THE [facility] <ASIF Whalen - Last Filed: 08/20/23 15:53> COUNTS INCLUDE 234 BEDS AT THE [facility] Medical History (Updated 08/20/23 @ 15:53 by ASIF Whalen) Ambulates with cane Arthritis Asthma Back pain CPAP (continuous positive airway pressure) dependence Depression Easy bruising GERD (gastroesophageal reflux disease) High cholesterol History of pain when walking Hypothyroid Injury of head and neck Loss of hearing Non-smoker Overactive bladder PONV (postoperative nausea and vomiting) Post-menopausal Wears glasses Home Medications donepezil 10 mg tablet 10 mg PO DAILY MEMORY 06/11/22 [History Last Taken Unknown] famotidine 40 mg tablet 40 mg PO QHS GERD 06/11/22 [History Last Taken Unknown] fluoxetine 40 mg capsule 40 mg PO DAILY DEPRESSION 06/11/22 [History Last Taken Unknown] levothyroxine 25 mcg tablet (Synthroid) 25 mcg PO DAILY THYROID 06/11/22 [History Last Taken 04/06/23] mirabegron 50 mg tablet,extended release 24 hr (Myrbetriq) 50 mg PO DAILY OAB 06/11/22 [History Last Taken Unknown] pantoprazole 40 mg granules delayed-release for susp in packet 40 mg PO DAILY 06/11/22 [History Last Taken 04/06/23] ezetimibe 10 mg tablet 10 mg PO DAILY 03/28/23 [History Last Taken Unknown] meloxicam 7.5 mg tablet 7.5 mg PO DAILY 08/20/23 [History Last Taken Unknown] oxybutynin chloride 10 mg tablet,extended release 24 hr 10 mg PO DAILY 08/20/23 [History Last Taken Unknown] Allergy/AdvReac Type Severity Reaction Status Date / Time rofecoxib [From Vioxx] Allergy Unknown Verified 03/28/23 14:51 Surgical History (Updated 03/28/23 @ 15:10 by Laya Thomas) H/O lateral meniscus repair of right knee History of appendectomy History of bladder surgery History of cholecystectomy History of partial hysterectomy Hx of surgical biopsy Social History Smoking Status: Never smoker substance use type: does not use ROS <ASIF Whalen - Last Filed: 08/20/23 15:53> ROS ED ROS Narrative Constitutional: Negative for fever, chills, weight loss, weakness Eyes: Negative for vision loss, vision change, double vision ENT: Negative for any sore throat, ear pain, congestion Cardiovascular: Negative for any chest pain, tightness, palpitations Respiratory: Negative for any cough, sputum production, hemoptysis, dyspnea, dyspnea on exertion, orthopnea Gastrointestinal: Negative for any abdominal pain, nausea, vomiting, diarrhea, constipation, blood in stool, blood in vomit : Negative for any urinary frequency, dysuria, retention, blood in urine Muscle skeletal: Negative for any neck pain, back pain Neurological: Negative for any syncope, dizziness. Positive for headache Skin: Negative for any rashes, itching, abrasions. Positive for scalp laceration Psychiatric: Negative for any depression, anxiety, stress, suicidal ideation, homicidal ideation Hematologic: Negative for any excessive bruising, easy bleeding EXAM <ASIF Whalen - Last Filed: 08/20/23 15:53> Physical Exam Narrative Exam Narrative: Vital signs reviewed. HEET: Head normocephalic atraumatic, TMs clear bilaterally. Posterior pharynx is clear, moist mucous membranes. Nares clear bilaterally. Pupils are equal round reactive to light, negative for any hemotympanum, negative for any septal hematoma. Patient does have a 2 cm vertical laceration to the occiput. This will need radha. Neck: Supple with no lymphadenopathy or tenderness. No signs of meningismus. Cardiac: Regular rate and rhythm no murmurs gallops or rubs, equal peripheral pulses bilaterally. Respiratory: Lungs clear to auscultation bilaterally. No chest tenderness. Abdomen: Soft, nontender, nondistended. No abdominal bruit or pulsatile masses. No hepatosplenomegaly Extremities: No peripheral edema, no signs of gross trauma or deformity. Active full range of motion of all extremities. Neuro: Cranial nerves II through XII intact, no focal neurological deficits. Skin: Clean dry and intact with no rash, purpura, petechiae, vesicles or pustules. Backs/flank: No CVA tenderness, no midline spinal tenderness, no deformity. Psych: Normal mood and affect. No SI, HI or acute psychosis. Const Vital Signs: 08/20/23 12:20 08/20/23 12:25 08/20/23 14:19 Temperature 97.8 F Temperature Source Tympanic Pulse Rate 95 86 Respiratory Rate 26 H 17 Respiratory Effort Normal Non-Labored Respiratory Depth Normal Respiratory Pattern Normal Blood Pressure 148/88 H 152/90 H Blood Pressure Mean 108 110 Pulse Ox 93 98 Oxygen Delivery Method Room Air Room Air Room Air 08/20/23 16:00 08/20/23 16:34 Temperature 97.8 F Temperature Source Pulse Rate 93 80 Respiratory Rate 16 12 Respiratory Effort Respiratory Depth Respiratory Pattern Blood Pressure 154/90 H 173/101 H Blood Pressure Mean 111 125 Pulse Ox 97 97 Oxygen Delivery Method Room Air <Abelardo Reddy MD - Last Filed: 08/20/23 16:50> Physical Exam Const Vital Signs: 08/20/23 12:20 08/20/23 12:25 08/20/23 14:19 Temperature 97.8 F Temperature Source Tympanic Pulse Rate 95 86 Respiratory Rate 26 H 17 Respiratory Effort Normal Non-Labored Respiratory Depth Normal Respiratory Pattern Normal Blood Pressure 148/88 H 152/90 H Blood Pressure Mean 108 110 Pulse Ox 93 98 Oxygen Delivery Method Room Air Room Air Room Air 08/20/23 16:00 08/20/23 16:34 Temperature 97.8 F Temperature Source Pulse Rate 93 80 Respiratory Rate 16 12 Respiratory Effort Respiratory Depth Respiratory Pattern Blood Pressure 154/90 H 173/101 H Blood Pressure Mean 111 125 Pulse Ox 97 97 Oxygen Delivery Method Room Air MDM <ASIF Whalen - Last Filed: 08/20/23 15:53> [facility] Lab Data Labs: Laboratory Results - last 24 hr 08/20/23 13:30 WBC 8.1 RBC 4.97 Hgb 14.6 Hct 45.8 MCV 92.2 MCH 29.4 MCHC 31.9 L RDW Std Deviation 43.3 RDW Coeff of Dionne 12.9 Plt Count 345 MPV 10.3 Immature Gran % (Auto) 0.600 Neut % (Auto) 57.7 Lymph % (Auto) 31.6 [place] % (Auto) 5.9 Eos % (Auto) 3.3 Baso % (Auto) 0.9 Absolute Neuts (auto) 4.7 Absolute Lymphs (auto) 2.55 Nucleated RBC % 0 PT 12.5 INR 0.9 Sodium 138 Potassium 3.8 Chloride 106 Carbon Dioxide 27.0 Anion Gap 5 BUN 29 H Creatinine 1.38 H Estim Creat Clear Calc 34.49 Est GFR (MDRD) Af Amer 47 L Est GFR (MDRD) Non-Af 39 L BUN/Creatinine Ratio 21.0 H Glucose 140 H Calcium 8.9 Radiography Diagnostic Testing: Clinical Impression(s) from Imaging Studies Brain CT 08/20/23 12:32 IMPRESSION: 1. No acute intracranial abnormality. 2. Stable chronic microvascular changes. Electronically Signed: Tyshawn Love MD at 14:17 EDT , Cervical Spine CT 08/20/23 12:32 IMPRESSION: 1. Acute pathologic type II odontoid fracture. 2. Findings suggestive of chronic odontoid fracture. 3. Prominent spondylosis with multilevel spinal and neural foraminal stenoses as described. N.B. : The above Results were Read Back by Tyshawn Love MD to Quentin Mckeon NP, and understanding confirmed on 08/20/2023 13:16:13 (ET). Electronically Signed: Tyshawn Love MD at 13:19 EDT , ADDENDUM: 08/20/23 1326 IMPRESSION: 1. Acute pathologic type II odontoid fracture. 2. Findings suggestive of chronic odontoid fracture. 3. Prominent spondylosis with multilevel spinal and neural foraminal stenoses as described. N.B. : The above Results were Read Back by Tyshawn Love MD to Quentin Mckeon NP, and understanding confirmed on 08/20/2023 13:16:13 (ET). Electronically Signed: Tyshawn Love MD at 13:19 EDT , Treatment and Re-Evaluation :: Differential diagnosis includes however is not limited to: Concussion, closed head injury, scalp laceration, skull fracture, intracranial bleeding Patient appears generally well, patient appears nontoxic, vital signs are stable. Presenting to the emergency department after mechanical fall, striking the back of her head on a table. Tetanus vaccination was within the last 5 years. Patient does have a 2 cm vertical laceration that will need radha. Patient will receive a CT scan of the brain, cervical spine. All radiologic examinations were read, reviewed by the emergency department attending. From these reads, a plan of care will be put in place. Patient be given 1 g of Tylenol for headache. Patient's CT scan was relayed to me by the radiologist, showing acute type II odontoid fracture noted extending to 16 mm subchondral cyst 13 and 90 mm bone density superior and posterior to the odontoid process suggestive of old odontoid fractures. Mild anterior listhesis. Secondary to patient having frequent falls, continue neck pain, patient will need to be transferred to a place that does have neurosurgery. Patient is currently in the process of being transferred to [facility]. Patient radha stable, placed in c- collar. Patient has a 2 cm vertical laceration to the posterior scalp. Sterile gloves, sterile drapes were used. I was able to place 4 radha to close the wound, edges approximated nicely. Patient tolerated well. The [facility] did call back, secondary to the spine surgeons at [facility] not wanting to do any sort of intervention, do not believe the patient needs to be transferred to their service. However secondary the patient having a mechanical fall, odontoid fracture, history of falls, I do believe the patient still needs to be transferred, we will now try medicine admission at [facility]. I spoke with medicine, they will admit the patient at [facility]. Spoke with the patient they are in agreement. Patient remained stable. <Abelardo Reddy MD - Last Filed: 08/20/23 16:50> MDM MDM Narrative Medical decision making narrative: Dr. Reddy: I have personally performed a face to face assessment of the patient and have reviewed the ZE Note. I performed a substantive portion of the visit including all aspects of the following. My comer findings include: History is fall with head and neck pain. Had previous fall 2 weeks ago when fell against loveseat, has had neck pain since. Exam is GCS 15. ABCs intact. Awake, alert, oriented. Laceration to occipital scalp. Medical Decision Making: Check CT brain, check CT C-spine. Old fractures and pathologic fracture noticed from cyst. Acute type II odontoid fracture. Placed in c-collar. Transfer. Other additions or changes: [None] History & Record Review Discussion w/independent historian: Patient and Family Lab Data Attestation: I reviewed the patient's lab results. Labs: Laboratory Results - last 24 hr 08/20/23 13:30 WBC 8.1 RBC 4.97 Hgb 14.6 Hct 45.8 MCV 92.2 MCH 29.4 MCHC 31.9 L RDW Std Deviation 43.3 RDW Coeff of Dionne 12.9 Plt Count 345 MPV 10.3 Immature Gran % (Auto) 0.600 Neut % (Auto) 57.7 Lymph % (Auto) 31.6 [place] % (Auto) 5.9 Eos % (Auto) 3.3 Baso % (Auto) 0.9 Absolute Neuts (auto) 4.7 Absolute Lymphs (auto) 2.55 Nucleated RBC % 0 PT 12.5 INR 0.9 Sodium 138 Potassium 3.8 Chloride 106 Carbon Dioxide 27.0 Anion Gap 5 BUN 29 H Creatinine 1.38 H Estim Creat Clear Calc 34.49 Est GFR (MDRD) Af Amer 47 L Est GFR (MDRD) Non-Af 39 L BUN/Creatinine Ratio 21.0 H Glucose 140 H Calcium 8.9 Radiography Diagnostic Testing: Clinical Impression(s) from Imaging Studies Brain CT 08/20/23 12:32 IMPRESSION: 1. No acute intracranial abnormality. 2. Stable chronic microvascular changes. Electronically Signed: Tyshawn Love MD at 14:17 EDT , Cervical Spine CT 08/20/23 12:32 IMPRESSION: 1. Acute pathologic type II odontoid fracture. 2. Findings suggestive of chronic odontoid fracture. 3. Prominent spondylosis with multilevel spinal and neural foraminal stenoses as described. N.B. : The above Results were Read Back by Tyshawn Love MD to Quentin Mckeon , BEN, and understanding confirmed on 08/20/2023 13:16:13 (ET). Electronically Signed: Tyshawn Love MD at 13:19 EDT , ADDENDUM: 08/20/23 1326 IMPRESSION: 1. Acute pathologic type II odontoid fracture. 2. Findings suggestive of chronic odontoid fracture. 3. Prominent spondylosis with multilevel spinal and neural foraminal stenoses as described. N.B. : The above Results were Read Back by Tyshawn Love MD to Quentin Mckeon , BEN, and understanding confirmed on 08/20/2023 13:16:13 (ET). Electronically Signed: Tyshawn Love MD at 13:19 EDT , Discharge Plan Triage Chief Complaint: Fall ED Midlevel Provider: Quentin Mckeon ED Provider: Abelardo Reddy Dx/Rx/DC Orders Clinical Impression: Concussion, Acute renal insufficiency, Closed type II fracture of odontoid process, Fall, Laceration of scalp Prescriptions: No Action fluoxetine 40 mg Capsule 40 mg PO DAILY donepezil 10 mg Tablet 10 mg PO DAILY famotidine 40 mg Tablet 40 mg PO QHS levothyroxine [Synthroid] 25 mcg Tablet 25 mcg PO DAILY pantoprazole [address] For Susp In Packet 40 mg PO DAILY Myrbetriq 50 mg Tablet Extended Release 24 Hr 50 mg PO DAILY ezetimibe 10 mg tablet 10 mg PO DAILY oxybutynin chloride 10 mg tablet extended release 24hr 10 mg PO DAILY meloxicam 7.5 mg tablet 7.5 mg PO DAILY Primary Care Provider: Richard Cruz Referrals: Richard Cruz MD [Primary Care Provider] - Disposition Disposition: Acute Care Hospital Discharge Location: [facility]
[2023-08-20] MEDS: Acetaminophen 500 MG Tablet 1000 MG PO (12:40)
[2023-08-20 13:36] LABS: Absolute Lymphocyte Count 2.55 X10^3/uL (0.83-4.51); Absolute Neutrophil Count 4.7 X10^3/uL (2.0-7.7); Basophil# 0.07 X10^3/uL; Basophil% 0.9 % (0-1); Eosinophil# 0.27 X10^3/uL; Eosinophils% 3.3 % (0-5); Hematocrit 45.8 % (37-47); Hemoglobin 14.6 g/dL (12.0-15.0); Lymphocyte # 2.55 X10^3/ul (0.83-4.51); Lymphocyte % 31.6 % (19-41); Mean Corp Hgb Conc 31.9 g/dL (32-36); Mean Corpuscular Hgb 29.4 pg (27.0-32.0); Mean Corpuscular Volume 92.2 fL (81-99); Mean Platelet Vol. 10.3 fl (6.2-12.0); Monocyte# 0.48 X10^3/uL; Monocyte% 5.9 % (0-10); NRBC Flagged by Analyzer 0 % (0-5); Neutrophil # 4.65 X10^3/uL (2.7-7.7); Neutrophil % 57.7 % (47-70); Platelet Count 345 K/mm3 (150-450); RBC Distribution Width CV 12.9 % (11.6-14.6); RBC Distribution Width SD 43.3 fl (35.1-43.9); Red Blood Count 4.97 M/mm3 (4.2-5.4); White Blood Count 8.1 K/mm3 (4.4-11.0)
[2023-08-20 13:51] LABS: Anion Gap 5 (5-15); BUN 29 mg/dL (7-18); Calcium,Total 8.9 mg/dL (8.5-10.1); Chloride 106 mmol/L (98-107); Creatinine, Serum 1.38 mg/dL (0.55-1.02); EST Glomerular Filtration Rate 39 mL/min (>60); Est Glom Filt Rate - Afr Amer 47 mL/min (>60); Estimated Creatinine Clearance 34.49 ml/min; Glucose 140 mg/dL (74-106); Potassium 3.8 mmol/L (3.5-5.1); Sodium Level 138 mmol/L (136-145)
[2023-08-20 13:53] LABS: International Normalized Ratio 0.9; Prothrombin Time (Protime)PT. 12.5 SECONDS (11.7-14.9)
[2023-08-20] MEDS: Ondansetron 4 MG/2 ML Vial IV (13:54)
[2023-08-20] MEDS: Morphine 2 MG/ML Syringe IV ×2 (13:55→16:55)
[2023-08-20] MEDS: 0.9% Normal Saline (500mL Bag) 500 ML 999 ML IV (13:59)
[2023-08-20 14:19] VITALS: BP 152/90; PULSE 86; RESP 17; O2SAT 98
[2023-08-20 16:00] VITALS: BP 154/90; PULSE 93; RESP 16; O2SAT 97
--- NOTE | 2023-08-20 16:24 | ED.RN ---
OFE CALLED, MELO WITHIN THE HOUR (BY [id number])
[2023-08-20 16:34] VITALS: BP 173/101; PULSE 80; RESP 12; TEMP 36.6; O2SAT 97
== END 2023-08-20 17:02 | disposition short-term general hospital (02) ==
PROVIDERS: Nurse Practitioner; Emergency Provider Emergency Medicine; PCP Family Medicine; Visit Provider Emergency Medicine
DX: S01.01XA Laceration without foreign body of scalp, initial encounter (principal); S12.100A Unspecified displaced fracture of second cervical vertebra, initial encounter for closed fracture; W07.XXXA Fall from chair, initial encounter; W22.8XXA Striking against or struck by other objects, initial encounter; N28.9 Disorder of kidney and ureter, unspecified; I10 Essential (primary) hypertension; S06.0X0A Concussion without loss of consciousness, initial encounter; E03.9 Hypothyroidism, unspecified; Z79.01 Long term (current) use of anticoagulants; J45.909 Unspecified asthma, uncomplicated; E78.00 Pure hypercholesterolemia, unspecified
CPT/HCPCS: 12011; 96361; 96374; 96375; 96376; 99283; 70450; 72125; 80048; 85025; 85610; J7040; A4216; J2405

== ENCOUNTER 2023-08-23 15:33 | Inpatient (IN) | payer MEDICARE, OTHER, SELFPAY ==
[2023-08-23 16:31] VITALS: BP 177/92; BP 179/98; BP 181/113; PULSE 101; PULSE 82; PULSE 90
[2023-08-23 16:35] VITALS: BMI 34.0
[2023-08-23 16:39] VITALS: BP 177/92; PULSE 82; RESP 17; TEMP 37.1; O2SAT 96
[2023-08-23 17:13] VITALS: BP 151/87; PULSE 88
[2023-08-23] MEDS: traMADol 50 MG Tablet PO (18:17)
[2023-08-23 21:16] VITALS: BP 166/95; PULSE 93; RESP 16; TEMP 36.8; O2SAT 94
[2023-08-23 21:18] VITALS: BP 166/95; PULSE 93
[2023-08-23] MEDS: hydrALAZINE 10 MG Tablet PO (21:18)
[2023-08-23] MEDS: Donepezil HCl 10 MG Tablet PO (21:19)
[2023-08-23] MEDS: Senna/Docusate Sodium 1 Tablet 2 TABLET PO (21:19)
[2023-08-23] MEDS: Famotidine 20 MG Tablet 40 MG PO (21:19)
[2023-08-23 22:00] VITALS: PULSE 93; RESP 15; O2SAT 94
[2023-08-24] MEDS: Acetaminophen 325 MG Tablet 650 MG PO (04:44)
[2023-08-24] MEDS: traMADol 50 MG Tablet PO ×3 (04:44→20:55)
[2023-08-24] MEDS: Ondansetron ODT 4 MG Tablet PO (05:02)
[2023-08-24 05:12] VITALS: BP 180/95; PULSE 88
[2023-08-24] MEDS: hydrALAZINE 10 MG Tablet PO (05:12)
[2023-08-24] MEDS: Levothyroxine 25 MCG TABLET PO (05:12)
[2023-08-24 05:57] LABS: Absolute Lymphocyte Count 1.94 X10^3/uL (0.83-4.51); Absolute Neutrophil Count 3.6 X10^3/uL (2.0-7.7); Basophil# 0.03 X10^3/uL; Basophil% 0.5 % (0-1); Eosinophil# 0.17 X10^3/uL; Eosinophils% 2.6 % (0-5); Hematocrit 42.3 % (37-47); Hemoglobin 13.7 g/dL (12.0-15.0); Lymphocyte # 1.94 X10^3/ul (0.83-4.51); Lymphocyte % 30.2 % (19-41); Mean Corp Hgb Conc 32.4 g/dL (32-36); Mean Corpuscular Hgb 29.3 pg (27.0-32.0); Mean Corpuscular Volume 90.6 fL (81-99); Mean Platelet Vol. 9.5 fl (6.2-12.0); Monocyte# 0.62 X10^3/uL; Monocyte% 9.6 % (0-10); NRBC Flagged by Analyzer 0 % (0-5); Neutrophil # 3.64 X10^3/uL (2.7-7.7); Neutrophil % 56.6 % (47-70); Platelet Count 274 K/mm3 (150-450); RBC Distribution Width CV 12.7 % (11.6-14.6); RBC Distribution Width SD 41.7 fl (35.1-43.9); Red Blood Count 4.67 M/mm3 (4.2-5.4); White Blood Count 6.4 K/mm3 (4.4-11.0)
[2023-08-24 06:00] VITALS: BP 177/94; BP 177/98; BP 182/93; PULSE 84; PULSE 88; PULSE 93
[2023-08-24 06:26] LABS: AST(SGOT) 22 U/L (15-37); Alanine Aminotransfer ALT/SGPT 22 U/L (13-56); Albumin, Serum 3.4 g/dL (3.2-5.0); Alkaline Phosphatase 118 U/L (45-117); Anion Gap 7 (5-15); BUN 11 mg/dL (7-18); BUN/Creat Ratio 10.8 RATIO (10-20); Calcium,Total 9.1 mg/dL (8.5-10.1); Chloride 100 mmol/L (98-107); Creatinine, Serum 1.02 mg/dL (0.55-1.02); EST Glomerular Filtration Rate 55 mL/min (>60); Est Glom Filt Rate - Afr Amer 67 mL/min (>60); Estimated Creatinine Clearance 46.06 ml/min; Globulin 3.5 g/dL (2.2-4.2); Glucose 123 mg/dL (74-106); Magnesium 2.3 mg/dL (1.6-2.6); Phosphorus 4.3 mg/dL (2.5-4.9); Potassium 3.9 mmol/L (3.5-5.1); Protein, Total 6.9 g/dL (6.4-8.2); Sodium Level 137 mmol/L (136-145)
[2023-08-24 07:47] VITALS: BP 182/93; PULSE 88; RESP 15; TEMP 36.7; O2SAT 96
[2023-08-24] MEDS: Pantoprazole Sodium 40 MG Tablet PO (08:56)
[2023-08-24] MEDS: Vibegron 75 MG TABLET PO (08:56)
[2023-08-24] MEDS: Ezetimibe 10 MG Tablet PO (08:56)
[2023-08-24] MEDS: Fluoxetine HCl 40 MG CAPSULE PO (08:56)
--- NOTE | 2023-08-24 10:21 | PCM.HP.STD ---
[facility] Date of Admission: 08/23/23 Date of Service: 08/24/23 Chief Complaint: Debility due to fall with fx of odontoid. [facility] Narrative GEORGINA SEGURA, is a 78 YO F with a past medical history of asthma, osteoarthritis, dementia without behavioral disturbance, chronic depression, GERD, history of a skull fracture in February 2023 secondary to fall, hyperlipidemia, hypothyroidism, chronic tremors of the right upper extremity, chronic rhinitis, chronic nausea/vomiting Was on Meloxicam at home prior to to the most recent fall, irritable bowel syndrome, neurogenic bladder, sleep apnea (noncompliant with CPAP due to claustrophobia) and urinary incontinence who presented to the emergency department at [facility] on 08/20/2023 after a fall at home. She has a history of frequent falls and in fact had a fall 2-3 weeks prior to the ED visit and had neck pain but, she did not seek medical attention for it. She complained of headache at presentation to the ED denied she had loss of consciousness. On physical examination cranial nerves II through XII are grossly intact and she had no focal neurologic deficits. Noncontrast brain CT showed no acute intracranial abnormalities. 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 She had prominent spondylosis with multilevel spinal and neuroforaminal stenoses. Lab was significant for acute renal failure with a creatinine of 1.38 and a BUN of 29. She had 4 radha to close a laceration in the occipital area and she was transferred to [facility]. She did not require surgery. The cervical spine was immobilized with a cervical collar. She was seen by PT/OT and [facility]. She was transferred to the acute inpt rehab unit at [facility] on 08/23/23 for 3 hours of therapy daily to restore function at or near her level prior to the fall/fracture. Afebrile Blood pressure since arrival on rehab has ranged from 166/95 to 182/93. Heart rate is within normal limits. All lab drawn this AM was personally reviewed. CBC is unremarkable. Sodium is within normal limits and the potassium is 3.9. The BUN is down to 11 with a creatinine of 1.02, down from 1.38 at presentation to the emergency department on 08/20/2023. GFR is 55 which is consistent with stage IIIa chronic renal failure. Fasting blood sugar today is elevated at 123. Phosphorus and magnesium are within normal limits. LFTs are unremarkable. She lives alone and required assistance with cleaning, laundry, meals, shopping and transportation. Reportedly independent with ADLs (later said children assist with ADL's) and mobility. Uses a walker or cane when outside her home. Georgina admits that she does not drink enough during the day. She tells me that when she stands up from bed in the AM she feels lightheaded and she tries to stand there for a few minutes prior to walking. I spoke with her dtr Jaqueline and she tells me that the N/V were under control with Protonix in the AM and Famotidine at night unless she was constipated. She does not take enemas very often at all. Georgina denies any recent wt loss. She has never had an ulcer and she denies any hx of DVT. Her legs swell at the end of the day but, in the AM the swelling is gone. They used to swell when she was working. She worked in a [employer] and after that she worked at [employer] so she did a lot of standing. She still drives in the community for short distances. She denies any hx of HTN. [facility] Medical History (Updated 08/25/23 @ 13:[address] Marina Gotti, ) Ambulates with cane Arthritis Asthma Back pain CPAP (continuous positive airway pressure) dependence Dehydration Dementia Depression Easy bruising GERD (gastroesophageal reflux disease) High cholesterol History of pain when walking Hypothyroid Injury of head and neck Loss of hearing Neurogenic bladder Non-smoker Noncompliance with CPAP treatment Overactive bladder PONV (postoperative nausea and vomiting) Post-menopausal Venous insufficiency (chronic) (peripheral) Wears glasses Home Medications donepezil 10 mg tablet 10 mg PO DAILY MEMORY 06/11/22 [History Last Taken 08/22/23] famotidine 40 mg tablet 40 mg PO QHS GERD 06/11/22 [History Last Taken Unknown] fluoxetine 40 mg capsule 40 mg PO DAILY DEPRESSION 06/11/22 [History Last Taken 08/23/23] levothyroxine 25 mcg tablet (Synthroid) 25 mcg PO DAILY THYROID 06/11/22 [History Last Taken 08/23/23] mirabegron 50 mg tablet,extended release 24 hr (Myrbetriq) 50 mg PO DAILY OAB 06/11/22 [History Last Taken Unknown] pantoprazole 40 mg granules delayed-release for susp in packet 40 mg PO DAILY GERD 06/11/22 [History Last Taken 08/23/23] ezetimibe 10 mg tablet 10 mg PO DAILY cholestorol 03/28/23 [History Last Taken 08/23/23] oxybutynin chloride 10 mg tablet,extended release 24 hr 10 mg PO DAILY OAB 08/20/23 [History Last Taken Unknown] albuterol sulfate 90 mcg/actuation aerosol inhaler 2 inh inhalation Q4H PRN SOB,Wheezing 08/23/23 [History Last Taken Unknown] tramadol 50 mg tablet 50 mg PO Q6H PRN pain 08/23/23 [History Last Taken Unknown] Allergy/AdvReac Type Severity Reaction Status Date / Time rofecoxib [From Vioxx] Allergy Unknown Verified 03/28/23 14:51 Family History unable to obtain Surgical History H/O lateral meniscus repair of right knee History of appendectomy History of bladder surgery History of cholecystectomy History of partial hysterectomy Hx of surgical biopsy Social History housing: house Smoking Status: Never smoker substance use type: does not use ROS Review of Systems ROS Unobtainable: Denies due to encephalopathy, due to endotracheal tube, due to mental condition or due to mental status Constitutional Constitutional: Reports change in weight and weight gain; Denies anorexia, chills, fatigue, fever(s), night sweats or weakness Eyes Eyes: Reports dry eyes; Denies blurry vision, change in vision, eye pain, itchy eyes or loss of vision ENT HEENT: Reports nasal congestion and other Details: Dry mouth ; Denies abnormal hearing, dysphagia, headache(s), hearing loss, sore throat or vertigo Cardiovascular Cardiovascular: Reports chest pain, edema, lightheadedness and other Details: Chest pain is located over the inferior portion of the manubrium and the xiphoid. ; Denies dyspnea on exertion, irregular heart rhythm, orthopnea, palpitations, paroxysmal nocturnal dyspnea or syncope Respiratory/Chest Respiratory/Chest: Denies cough, dyspnea, shortness of breath at rest, shortness of breath with exertion or wheezing Gastrointestinal Gastrointestinal: Reports bloating, constipation, nausea, vomiting and other Details: When she vomits it is chunks......looks like undigested food. ; Denies abdominal pain, diarrhea, dyspepsia, hematemesis or hematochezia Genitourinary Genitourinary: Reports urinary incontinence and urinary urgency; Denies dysuria, hematuria, nocturia, urinary frequency or urinary hesitancy Musculoskeletal Musculoskeletal: Reports joint pain, neck pain and tremors; Denies back pain or joint swelling Integumentary Integumentary: Reports dry skin; Denies alopecia, bleeding lesions, hirsutism or jaundice Neurologic Neurologic: Reports memory loss and tremor(s); Denies behavior changes, confusion, disequilibrium, dizziness, focal weakness, headache(s), paresthesias, radicular pain or seizures Psychiatric Psychiatric: Reports depression and other Details: Was having some hallucinations when taking narcotics at the previous hospital. ; Denies anxiety, homicidal ideation or suicidal ideation Endocrine Endocrinology: Denies change in body appearance, polydipsia or polyuria Hematologic/Lymphatic Hematologic/Lymphatic: Denies easy bleeding, easy bruising or lymphadenopathy Allergic/Immunologic Allergic/Immunologic: Reports seasonal rhinorrhea and rhinitis; Denies itchy eyes, tongue swelling, hives, eczemia or asthma Vital Signs Vital Signs Vital Signs: 08/23/23 16:39 08/23/23 16:31 08/23/23 17:13 Temperature 98.7 F Temperature Source Temporal Pulse Rate 82 88 Pulse Rate [Lying] 82 Pulse Rate [Sitting (for 1 minute prior to obtaining)] 90 Pulse Rate [Standing (for 1 minute prior to obtaining)] 101 H Respiratory Rate 17 Respiratory Effort Respiratory Depth Respiratory Pattern Blood Pressure 177/92 H 151/87 H Blood Pressure [Lying] 177/92 H Blood Pressure [Sitting (for 1 minute prior to obtaining)] 179/98 H Blood Pressure [Standing (for 1 minute prior to obtaining)] 181/113 H Blood Pressure Mean 120 108 Blood Pressure Mean [Lying] 120 Blood Pressure Mean [Sitting (for 1 minute prior to obtaining)] 125 Blood Pressure Mean [Standing (for 1 minute prior to obtaining)] 135 Blood Pressure Source Monitor Monitor Blood Pressure Position Supine Semi-Fowlers Blood Pressure Location Left Arm Right Arm Pulse Ox 96 Oxygen Delivery Method Room Air Oxygen Flow Rate (L/min) 08/23/23 21:16 08/23/23 21:18 08/23/23 22:00 Temperature 98.3 F Temperature Source Temporal Pulse Rate 93 93 93 Pulse Rate [Lying] Pulse Rate [Sitting (for 1 minute prior to obtaining)] Pulse Rate [Standing (for 1 minute prior to obtaining)] Respiratory Rate 16 15 Respiratory Effort Normal Non-Labored Respiratory Depth Normal Respiratory Pattern Normal Blood Pressure 166/95 H 166/95 H Blood Pressure [Lying] Blood Pressure [Sitting (for 1 minute prior to obtaining)] Blood Pressure [Standing (for 1 minute prior to obtaining)] Blood Pressure Mean 118 Blood Pressure Mean [Lying] Blood Pressure Mean [Sitting (for 1 minute prior to obtaining)] Blood Pressure Mean [Standing (for 1 minute prior to obtaining)] Blood Pressure Source Blood Pressure Position Semi-Fowlers Blood Pressure Location Right Arm Pulse Ox 94 94 Oxygen Delivery Method Room Air Room Air Oxygen Flow Rate (L/min) 08/24/23 05:12 08/24/23 07:46 08/24/23 07:47 Temperature 98.0 F Temperature Source Temporal Pulse Rate 88 88 Pulse Rate [Lying] Pulse Rate [Sitting (for 1 minute prior to obtaining)] Pulse Rate [Standing (for 1 minute prior to obtaining)] Respiratory Rate 15 Respiratory Effort Respiratory Depth Respiratory Pattern Blood Pressure 180/95 H 182/93 H Blood Pressure [Lying] Blood Pressure [Sitting (for 1 minute prior to obtaining)] Blood Pressure [Standing (for 1 minute prior to obtaining)] Blood Pressure Mean 122 Blood Pressure Mean [Lying] Blood Pressure Mean [Sitting (for 1 minute prior to obtaining)] Blood Pressure Mean [Standing (for 1 minute prior to obtaining)] Blood Pressure Source Blood Pressure Position Semi-Fowlers Blood Pressure Location Right Arm Pulse Ox 96 Oxygen Delivery Method Room Air Oxygen Flow Rate (L/min) 2 08/24/23 06:00 Temperature Temperature Source Pulse Rate Pulse Rate [Lying] 88 Pulse Rate [Sitting (for 1 minute prior to obtaining)] 84 Pulse Rate [Standing (for 1 minute prior to obtaining)] 93 Respiratory Rate Respiratory Effort Respiratory Depth Respiratory Pattern Blood Pressure Blood Pressure [Lying] 177/98 H Blood Pressure [Sitting (for 1 minute prior to obtaining)] 182/93 H Blood Pressure [Standing (for 1 minute prior to obtaining)] 177/94 H Blood Pressure Mean Blood Pressure Mean [Lying] 124 Blood Pressure Mean [Sitting (for 1 minute prior to obtaining)] 122 Blood Pressure Mean [Standing (for 1 minute prior to obtaining)] 121 Blood Pressure Source Blood Pressure Position Blood Pressure Location Pulse Ox Oxygen Delivery Method Oxygen Flow Rate (L/min) Weight Weight: 192 lb 3.889 oz Body Mass Index (BMI) 34.0 Physical Exam Const alert, oriented x3 and no apparent distress General Appearance: cooperative and well kempt HEENT normocephalic, hearing grossly normal bilaterally, external ears normal and external nose normal HEENT Narrative: Dry mucous membranes. Has a laceration over the occiput. No dehiscence. No DC Eyes PERRL, EOMs intact bilaterally, conjunctivae normal and no scleral icterus Eyes Narrative: No discharge from the eyes. Neck Neck Narrative: Kersey cervical collar is in place. Chest Chest Narrative: She has some pain with palpation over the distal manubrium and the xiphoid. No bruising, erythema or opening in the skin. Chest: symmetrical chest wall rise Resp normal respiratory effort, normal air movement and clear to auscultation bilaterally Effort and Inspection: able to speak in complete sentences; Negative for tachypneic or respiratory distress Cardio regular rate, regular rhythm, S1 normal heart sound, S2 normal heart sound, no murmurs, no rub and no gallops Cardio Narrative: No ectopy GI GI Narrative: Feels bloated. No pain with palpation in the epigastric area. Low frequency BS's. No guarding with palpation. Soft. Not ayush tympanic. no CVA tenderness Back/Spine straight leg raise negative bilaterally Back/Spine Narrative: No pain with palpation or percussion over the vertebrae. No abrasions on the back. Extremity Extremity Narrative: mild pitting edema over the distal anterior tibia BL Skin Skin Narrative: Laceration is intact with no dehiscence, no purulent DC and no gina-incisional erythema. General Skin Exam: no breakdown Rashes: no rashes Neuro oriented x3, CN's II-XII intact bilaterally, moves all extremities and no focal motor deficits Psych cooperative, affect normal, denies hallucinations, denies homicidal ideation and denies suicidal ideation Appearance: grossly normal and appropriate Attitude: calm and engaged Activity / Motor Behavior: appropriate eye contact; Negative for psychomotor agitation Speech: normal speech Results Lab / Micro Data 08/24/23 05:35 08/24/23 05:35 Labs: Laboratory Results - last 24 hr 08/24/23 05:35: WBC 6.4, RBC 4.67, Hgb 13.7, Hct 42.3, MCV 90.6, MCH 29.3, MCHC 32.4, RDW Std Deviation 41.7, RDW Coeff of Dionne 12.7, Plt Count 274, MPV 9.5, Immature Gran % (Auto) 0.500, Neut % (Auto) 56.6, Lymph % (Auto) 30.2, Warrick % (Auto) 9.6, Eos % (Auto) 2.6, Baso % (Auto) 0.5, Absolute Neuts (auto) 3.6, Absolute Lymphs (auto) 1.94, Nucleated RBC % 0, Sodium 137, Potassium 3.9, Chloride 100, Carbon Dioxide 30.0, Anion Gap 7, BUN 11, Creatinine 1.02, Estim Creat Clear Calc 46.06, Est GFR (MDRD) Af Amer 67, Est GFR (MDRD) Non-Af 55 L, BUN/Creatinine Ratio 10.8, Glucose 123 H, Calcium 9.1, Phosphorus 4.3, Magnesium 2.3, Total Bilirubin 0.40, AST 22, ALT 22, Alkaline Phosphatase 118 H, Total Protein 6.9, Albumin 3.4, Globulin 3.5, Albumin/Globulin Ratio 1.0 Assessment & Plan Assessment/Plan (1) Debility: (2) Frequent falls: PLAN: I suspect she is chronically dehydrated and orthostasis contributes to the falls. (3) Closed type II fracture of odontoid process: PLAN: acute fracture with another subacute fracture. (4) Laceration of scalp: QUALIFIERS: Encounter type: subsequent encounter Qualified Code(s): S01.01XD - Laceration without foreign body of scalp, subsequent encounter (5) Closed head injury: QUALIFIERS: Encounter type: subsequent encounter Qualified Code(s): S09.90XD - Unspecified injury of head, subsequent encounter (6) Hypothyroid: QUALIFIERS: Hypothyroidism type: acquired Qualified Code(s): E03.9 - Hypothyroidism, unspecified (7) Elevated TSH: PLAN: TSH is 10.6. Thyroid supplement increased (8) Concussion: QUALIFIERS: Encounter type: subsequent encounter Loss of consciousness presence/duration: without LOC Qualified Code(s): S06.0X0D - Concussion without loss of consciousness, subsequent encounter (9) Acute renal insufficiency: PLAN: Resolved with hydration (10) Dementia: QUALIFIERS: Dementia type: unspecified type Dementia severity: moderate Dementia behavioral or psychological symptom: without behavioral, psychotic, or mood disturbance or anxiety Qualified Code(s): F03.B0 - Unspecified dementia, moderate, without behavioral disturbance, psychotic disturbance, mood disturbance, and anxiety (11) Depression: QUALIFIERS: Depression Type: unspecified Qualified Code(s): F32.A - Depression, unspecified (12) Nausea and vomiting: QUALIFIERS: Vomiting type: unspecified Qualified Code(s): R11.2 - Nausea with vomiting, unspecified (13) Glucose intolerance (impaired glucose tolerance): PLAN: HGBA1C is 5.7. Has a dtr with DM II. (14) Noncompliance with CPAP treatment: PLAN: Due to claustrophobia. Does not have oxygen at home. (15) Heme positive stool: PLAN: Plan PLAN PT for gait stability OT for ADL's ST for evaluation Analgesics as needed Bowel protocol Fall precautions Assess for Anxiety/Depression GI prophylaxis -continue Protonix in the a.m. and famotidine at at bedtime DVT prophylaxis with DYLON hose and ambulation Follow up with Dr. Cruz and neurosurgery following DC from Rehab AM lab including CMP, CBC, Mag and Phos -personally reviewed TSH, hemoglobin A1c, lipase Avoid antihistamines due to the potential for confusion and increased falls. Start Atrovent nasal spray 2 sprays each nostril once daily. Schedule Tylenol 1 g p.o. every 8 hours and tramadol 50 mg p.o. 3 times daily. Wean later this week Increase the hydralazine to 25 mg Q4H PRN systolic >160 or diastolic >85. If the BP's remain elevated will start a scheduled antihypertensive. Encourage increased fluid intake. Remove radha in 7-10 days (today is day #4). Increase the Levothyroxine dose to 50 mcg/day - will need a repeat TSH in 4-6 weeks. Monitor I&O closely Overnight trending pulse ox. Charges/Coding Visit Charges Inpatient E&M: 44080 Init Hosp L2
[2023-08-24] MEDS: Senna/Docusate Sodium 1 Tablet 2 TABLET PO (10:24)
[2023-08-24 11:34] LABS: Hemoglobin A1c 5.7 % (3.8-5.6); Lipase 50 U/L (13-75)
[2023-08-24 13:26] VITALS: O2SAT 91
--- NOTE | 2023-08-24 13:30 | RAD_ITS ---
INDICATION: Nausea/vomiting EXAMINATION/TECHNIQUE: X-RAY - XR Abdomen 1 View COMPARISON: No relevant prior comparison study available FINDINGS: BOWEL GAS PATTERN: Stimulator device with wire extending to the pelvic region. No bowel or stomach distention. FREE AIR: Not assessed on a single supine view. ORGANOMEGALY: Not seen. CALCIFICATIONS: No abnormal calcifications observed. LOWER CHEST: No acute pathology. BONES AND SOFT TISSUES: Degenerative changes of the spine. RAD/Abdomen Single View IMPRESSION: Non-obstructive bowel gas pattern. Electronically Signed: Renzo Ng MD at 13:43 EDT ,
[2023-08-24 13:45] VITALS: BP 153/80; PULSE 83
[2023-08-24] MEDS: Acetaminophen 500 MG Tablet 1000 MG PO ×2 (13:47→20:33)
[2023-08-24 20:00] VITALS: BP 140/74; PULSE 80; RESP 18; TEMP 36.2; O2SAT 98
[2023-08-24] MEDS: Famotidine 20 MG Tablet 40 MG PO (20:31)
[2023-08-24] MEDS: Donepezil HCl 10 MG Tablet PO (20:31)
[2023-08-24] MEDS: Ipratropium Bromide 0.06% NASAL SPRAY 2 SPRAY NASAL (20:32)
[2023-08-25] VITALS (8 sets, daily range): BP systolic 108–190; BP diastolic 66–112; PULSE 85–93; RESP 16–17; TEMP 36.4–36.7; O2SAT 92–96
[2023-08-25] MEDS: Levothyroxine 25 MCG TABLET PO (06:01)
[2023-08-25] MEDS: Acetaminophen 500 MG Tablet 1000 MG PO ×3 (06:01→21:34)
[2023-08-25] MEDS: hydrALAZINE 25 MG Tablet PO ×2 (06:04→12:30)
[2023-08-25] MEDS: traMADol 50 MG Tablet PO ×3 (06:15→21:33)
[2023-08-25] MEDS: Ondansetron ODT 4 MG Tablet PO (06:19)
[2023-08-25] MEDS: Fluoxetine HCl 40 MG CAPSULE PO (09:00)
[2023-08-25] MEDS: Pantoprazole Sodium 40 MG Tablet PO (09:00)
[2023-08-25] MEDS: Ipratropium Bromide 0.06% NASAL SPRAY 2 SPRAY NASAL ×2 (09:00→20:31)
[2023-08-25] MEDS: Vibegron 75 MG TABLET PO (09:00)
[2023-08-25] MEDS: Ezetimibe 10 MG Tablet PO (09:01)
--- NOTE | 2023-08-25 13:53 | PCM.RU.PYE ---
Admission Information Primary Diagnosis:: Debility due to a fall with fracture of the odontoid and mild TBI Status Changes from Prescreening?: No changes Identified Actual Problem List:: Falls, Pain, ALteration in Cmfrt, Cognitve Impr/Memory Loss, Depression, Bladder Incontinence, Bowel, Constipation, Mobility Impaired, Self Care Deficit, BP, Hypertension, Fluid Change-Dehydration and Alteration-Leisure Activ. Potential Problem List:: DVT, Bleeding, Infection, UTI, Aspiration, Falls, Skin Integrity and Depression Risk of Complications DVT: DYLON Hose and - (ambulation) Bleeding: Monitor Lab Values, Nursing to Teach Precautions for anti-coagulation therapy., Wound, if applicable, to be assessed every shift. and Stroke patients assessed for lethargy or change in status. Infection: Clinical Staff to Monitor for S/S of infection: and S/S of infection include fever, redness, warmth, etc. Urinary Tract Infection: Monitor for frequency, burning, discomfort, or incontinence. and Nursing will obtain urine sample for urinalysis and C&S when ordered. Aspiration: Clinical staff will monitor for coughing, drooling, congestion., Speech will evaluate swallowing and dsyphasia. and Nursing will monitor patient swallowing during meals. Falls: Patient will be evaluated for Fall Precautions and Patient will be placed on Fall Precautions as indicated per protocol. Skin Breakdown: Nursing will assess skin daily using assessment tool. and Nursing will place on Skin Breakdown Precautions as indicated. Pain: Clinical staff will assess patient's pain level per protocol., Medications will be given, if needed, and the pain level reassessed. and Other methods: Massage, distraction, decrease stimulus, etc. used PRN. Plan of Care Patient requires physician specializing in physical medicine and rehab oversight to provide close medical supervision of rehab issues including: Pain Management, Sleep Problems, Bowel and Bladder, Medical and co-morbidity Management, DVT prophylaxis, Rehabilitation Leadership and Coordination of treatment team Patient needs Physical Therapy: For a minimum of 1 hour and At least 5 out of 7 days Patient needs Physical Therapy to improve:: Mobility, Strengthening, Transfers, Stretching, ROM, Endurance, Stairs, Gait and Balance Patient needs Occupational Therapy: For a minimum of 1 hour and At least 5 out of 7 days Patient needs Occupational Therapy to improve ADL's incl.: Eating, Grooming, Bathing, Dressing, Toileting, Toilet transfers, Community Reintegration, Higher functioning activities, Household tasks, Adaptive Equipment, Splinting and Other activities as determined Patient requires speech therapy: For a minimum of 1 hour and At least 5 out of 7 days Patient requires speech therapy for: Swallowing, Cognition, Language Skills and Compensatory Strategies Patient requires 24/ Rehabilitation Nursing for: Pain Issues, Identifying and preventing risk factors, Monitoring and reporting current medical conditions, Assisting with ambulation, transfer, and all ADL's, Teaching patients about disease process and medications, Family teaching, Providing safe environment, Bowel and Bladder Issues, Skin integrity and Medication Management Patient needs [employer] Marketing Manager/ Case Management for: Discharge Planning, Arranging Home Equipment or Services and Family Interventions Patient needs Dietary and Nutrition Services for: Adequate Nutrition, Nutritional Supplements and Nutritional Education Goals Goals Patient will remain: free from falls Patient will perform eating at: MOD I level of assist. Patient will perform bed mobility at: MOD I level of assist. Patient will complete transfers from bed to chair at: MOD I level of assist. Patient will ambulate: - (200 feet with least restrictive device at mod I on various surfaces) Patient will complete upper body dressing at: MOD I level of assist. Patient will complete lower body dressing at: MOD I level of assist. (With adaptive equipment as needed for increased independence) Patient will complete toilet transfer at: MOD I level of assist. Patient will complete toileting at: MOD I level of assist. Patient will perform bathing at: MOD I level of assist. (Upper body bathing independently and lower body bathing at mod I with adaptive equipment as needed for increased independence with self-care.) Patient will perform Tub/Shower transfer at: - (Supervision) Patient will complete grooming at: MOD I level of assist. (While standing at the sink) Patient will achieve: - (2 steps with 1-2 handrails and least restrictive device at standby assist to allow access to her home) Discharge Planning Pt Prognosis for Sig. Practical Improv. w/in Reasonable Time: Good Estimated Length of stay (days): 21 Anticipated D/C Destination: Home with Outpt Therapy Was Preadmission Assessment Accurate?: Yes
--- NOTE | 2023-08-25 14:02 | PCM.PROGNOTE ---
Subjective Subjective Afebrile VSS - BP's remain elevated, both systolic and diastolic. HR is in the 80's Maintaining appropriate oxygen saturation on RA Oral intake - FOOD good FLUIDS poor Discussed with nursing - no problems that need addressed Reviewed the THERAPY notes Medication list reviewed. Objective Data Objective Data Vital Signs: Vital Signs Temp Pulse Resp BP Pulse Ox O2 Del Method O2 Flow Rate 98.1 F 88 17 147/79 H 96 Room Air 2 08/25/23 08:55 08/25/23 13:40 08/25/23 08:55 08/25/23 13:40 08/25/23 08:55 08/25/23 08:55 08/24/23 13:26 Oxygen Flow Rate (L/min) 2 Oxygen Delivery Method Room Air Weight: 192 lb 3.889 oz Body Mass Index (BMI) 34.0 Intake & Output: Intake and Output for Last 24 Hours 08/23/23 08/24/23 08/25/23 23:59 23:59 23:59 Intake Total 350 / 350 860 / 860 340 / 340 Output Total 440 / 440 450 / 450 Balance 350 / 350 420 / 420 -110 / -110 Lab / Micro Data 08/24/23 05:35 08/24/23 05:35 Micro: Microbiology 08/24/23 13:37 Stool Stool Occult Blood (STEFANY) - Final Occult Blood Positive Physical Exam Const alert, oriented x3 and no apparent distress General Appearance: cooperative Resp normal respiratory effort, normal air movement and clear to auscultation bilaterally Effort and Inspection: able to speak in complete sentences; Negative for tachypneic or respiratory distress Cardio regular rate, regular rhythm, S1 normal heart sound, S2 normal heart sound, no murmurs, no rub and no gallops Cardio Narrative: No ectopy GI normal to inspection, nondistended, normoactive bowel sounds, soft to palpation and non-tender GI Narrative: No guarding with palpation. Not tympanic. Denies feeling bloated. Had some nausea this AM.......states she threw up however nursing reports it was primarily spit in the emesis bag. Stool is heme +. Will need to enquire if she has ever had an EGD or a colonoscopy. Extremity Extremity Narrative: mild pitting edema over the distal anterior tibia BL Skin Skin Narrative: Laceration is intact with no dehiscence, no purulent DC and no gina-incisional erythema. General Skin Exam: no breakdown Rashes: no rashes Assessment & Plan Assessment/Plan (1) Debility: (2) Frequent falls: PLAN: I suspect she is chronically dehydrated and orthostasis contributes to the falls. (3) Closed type II fracture of odontoid process: PLAN: acute fracture with another subacute fracture. (4) Laceration of scalp: QUALIFIERS: Encounter type: subsequent encounter Qualified Code(s): S01.01XD - Laceration without foreign body of scalp, subsequent encounter (5) Closed head injury: QUALIFIERS: Encounter type: subsequent encounter Qualified Code(s): S09.90XD - Unspecified injury of head, subsequent encounter (6) Hypothyroid: QUALIFIERS: Hypothyroidism type: acquired Qualified Code(s): E03.9 - Hypothyroidism, unspecified (7) Elevated TSH: PLAN: TSH is 10.6. Thyroid supplement increased (8) Concussion: QUALIFIERS: Encounter type: subsequent encounter Loss of consciousness presence/duration: without LOC Qualified Code(s): S06.0X0D - Concussion without loss of consciousness, subsequent encounter (9) Nausea and vomiting: QUALIFIERS: Vomiting type: unspecified Qualified Code(s): R11.2 - Nausea with vomiting, unspecified (10) Heme positive stool: (11) HTN (hypertension): QUALIFIERS: Hypertension type: unspecified Qualified Code(s): I10 - Essential (primary) hypertension PLAN: Not on an antihypertensive prior to the recent fall. PLAN: Plan 1. Continue therapy 2. Add lisinopril 20 mg daily to the current drug regimen. Start today. 3. accurate I&O and encourage increased fluid intake. 4. BMP and orthostatics on Tuesday. 5. Obtain a med list and a problem list from PCP and also the results of any endoscopic procedures she has had in the past. Charges/Coding Visit Charges Inpatient E&M: 56307 Subs Hosp L1
[2023-08-25] MEDS: Lisinopril 20 MG Tablet PO (15:43)
--- NOTE | 2023-08-25 16:26 | CASEMGMT ---
Social Service SW met with patient and completed admission assessment and IRFPAI: BIMS 03/23 PHQ2 0/0 Pt previously lived alone with good family support. Daughter sets up her medications and son helps with finances. Pt used a cane for ambulation. Goal is to return home. SW to follow and assist with DC planning. Valarie HI
[2023-08-25] MEDS: Donepezil HCl 10 MG Tablet PO (20:30)
[2023-08-25] MEDS: Famotidine 20 MG Tablet 40 MG PO (21:34)
[2023-08-26 05:50] VITALS: BMI 33.7
[2023-08-26] MEDS: Levothyroxine 25 MCG TABLET PO (05:54)
[2023-08-26] MEDS: traMADol 50 MG Tablet PO ×3 (05:54→21:24)
[2023-08-26] MEDS: Acetaminophen 500 MG Tablet 1000 MG PO ×3 (05:55→21:25)
[2023-08-26 08:32] VITALS: BP 152/82; PULSE 84; RESP 18; TEMP 36.7; O2SAT 93
[2023-08-26] MEDS: Ipratropium Bromide 0.06% NASAL SPRAY 2 SPRAY NASAL ×2 (09:06→21:19)
[2023-08-26] MEDS: Ezetimibe 10 MG Tablet PO (09:07)
[2023-08-26] MEDS: Polyethylene Glycol 3350 17 GM PACKET PO (09:07)
[2023-08-26] MEDS: Senna/Docusate Sodium 1 Tablet 2 TABLET PO (09:07)
[2023-08-26] MEDS: Pantoprazole Sodium 40 MG Tablet PO (09:07)
[2023-08-26] MEDS: Lisinopril 20 MG Tablet PO (09:07)
[2023-08-26] MEDS: Fluoxetine HCl 40 MG CAPSULE PO (09:07)
[2023-08-26] MEDS: Vibegron 75 MG TABLET PO (09:13)
--- NOTE | 2023-08-26 10:49 | PN_ITS ---
Subjective Subjective Afebrile VSS blood pressure at at bedtime was 108/66 and this morning the blood pressure is 152/82. She was started on scheduled lisinopril 20 mg daily yesterday. Orthostatics are Positive however the MAP even with standing range from 98 standing to 113 lying down so she is asymptomatic at this time. In suspect the orthostasis is due to dehydration and not due to the Lisinopril Maintaining appropriate oxygen saturation on RA Oral intake - FOOD good FLUIDS poor Incontinent of urine. Having regular bowel movements. Continent of stool. Weight is down 5 pounds since 08/20/2023-suspect secondary to dehydration. Discussed with nursing - no problems that need addressed Reviewed the THERAPY notes Medication list reviewed. Denies lightheadedness. She is appropriate. Tells me that she slept very well last night....first time in several days. Appetite is good. Her only complaint to me is pain in the neck. Denies radicular pain into the arms or the legs. Denies numbness in the arms and legs. We discussed that the [place] collar needs to stay on until the fracture is healed to keep the odontoid from displacing. She understands. We also discussed her fluid intake. I suspect the dehydration contributes significantly to the falls. She will drink water we I offer it to her and nursing and therapy are also going to start offering water. She may need to set alarms on her phone to remind her to drink some water during the day. Denies CP, SOB, cough, N/V/abd pain, dysuria and calf tenderness. Objective Data Objective Data Vital Signs: Vital Signs Temp Pulse Resp BP Pulse Ox O2 Del Method O2 Flow Rate 98.0 F 84 18 152/82 H 93 Room Air 18 08/26/23 08:32 08/26/23 08:32 08/26/23 08:32 08/26/23 08:32 08/26/23 08:32 08/26/23 08:32 08/25/23 21:14 FiO2 21 08/25/23 21:14 Oxygen Flow Rate (L/min) 18 Oxygen Delivery Method Room Air Weight: 190 lb 11.198 oz Body Mass Index (BMI) 33.7 Intake & Output: Intake and Output for Last 24 Hours 08/24/23 08/25/23 08/26/23 23:59 23:59 23:59 Intake Total 860 / 860 340 / 340 240 / 240 Output Total 440 / 440 550 / 550 Balance 420 / 420 -210 / -210 240 / 240 Lab / Micro Data 08/24/23 05:35 08/24/23 05:35 Micro: Microbiology 08/24/23 13:37 Stool Stool Occult Blood (STEFANY) - Final Occult Blood Positive Physical Exam Const alert and no apparent distress General Appearance: cooperative HEENT normocephalic, hearing grossly normal bilaterally, external ears normal and external nose normal HEENT Narrative: MM are very dry. She did drink some water for me prior to me leaving the room. Eyes PERRL, EOMs intact bilaterally, conjunctivae normal and no scleral icterus Eyes Narrative: No discharge from the eyes. Neck Neck Narrative: [place] cervical collar is in place. Chest Chest Narrative: She has some pain with palpation over the distal manubrium and the xiphoid. No bruising, erythema or opening in the skin. Chest: symmetrical chest wall rise Resp normal respiratory effort, normal air movement and clear to auscultation bilaterally Effort and Inspection: able to speak in complete sentences; Negative for tachypneic or respiratory distress Cardio regular rate, regular rhythm and no gallops Cardio Narrative: No ectopy GI normal to inspection, nondistended, normoactive bowel sounds, soft to palpation and non-tender GI Narrative: No guarding with palpation. Not tympanic. Denies feeling bloated. Had some nausea this AM.......states she threw up however nursing reports it was primarily spit in the emesis bag. Stool is heme +. Will need to enquire if she has ever had an EGD or a colonoscopy. no CVA tenderness Back/Spine straight leg raise negative bilaterally Back/Spine Narrative: No pain with palpation or percussion over the vertebrae. No abrasions on the back. Extremity no calf tenderness Extremity Narrative: mild pitting edema over the distal anterior tibia BL General Extremity: Negative for edema Skin Skin Narrative: Laceration is intact with no dehiscence, no purulent DC and no gina-incisional erythema. General Skin Exam: no breakdown Rashes: no rashes Neuro oriented x3, CN's II-XII intact bilaterally, moves all extremities and no focal motor deficits Psych cooperative, affect normal, denies hallucinations, denies homicidal ideation and denies suicidal ideation Appearance: grossly normal and appropriate Attitude: calm and engaged Activity / Motor Behavior: appropriate eye contact; Negative for psychomotor agitation Speech: normal speech Assessment & Plan Assessment/Plan (1) Debility: (2) Frequent falls: (3) Closed type II fracture of odontoid process: (4) Laceration of scalp: QUALIFIERS: Encounter type: subsequent encounter Qualified Code(s): S01.01XD - Laceration without foreign body of scalp, subsequent encounter (5) Closed head injury: QUALIFIERS: Encounter type: subsequent encounter Qualified Code(s): S09.90XD - Unspecified injury of head, subsequent encounter (6) Hypothyroid: QUALIFIERS: Hypothyroidism type: acquired Qualified Code(s): E03.9 - Hypothyroidism, unspecified (7) Elevated TSH: (8) Concussion: QUALIFIERS: Encounter type: subsequent encounter Loss of consci ousness presence/duration: without LOC Qualified Code(s): S06.0X0D - Concussion without loss of consciousness, subsequent encounter (9) Nausea and vomiting: QUALIFIERS: Vomiting type: unspecified Qualified Code(s): R11.2 - Nausea with vomiting, unspecified (10) Heme positive stool: (11) HTN (hypertension): QUALIFIERS: Hypertension type: unspecified Qualified Code(s): I10 - Essential (primary) hypertension PLAN: Plan 1. Continue therapy 2. Recheck a BMP on Tuesday 3. Continue lisinopril and as needed hydralazine 4. encouraged her to increase her fluid intake to prevent falls going forward 5. Remove radha on Tuesday 6. Apply O2 at night for hypoxemia due to NAYA with non-compliance with CPAP due to claustrophobia. 30% of the time her pulse ox was Less than 90% No signifcant bradycardia or tachycardia during the time she was monitored last night. Charges/Coding Visit Charges Inpatient E&M: 31407 Subs Hosp L1
[2023-08-26 10:54] VITALS: BP 138/78; BP 156/92; BP 160/82; PULSE 81; PULSE 85
[2023-08-26] MEDS: Donepezil HCl 10 MG Tablet PO (21:19)
[2023-08-26] MEDS: Famotidine 20 MG Tablet 40 MG PO (21:22)
[2023-08-26 21:43] VITALS: BP 160/82; PULSE 78; RESP 18; TEMP 36.8; O2SAT 96
[2023-08-27 06:00] VITALS: BMI 33.6
[2023-08-27] MEDS: Acetaminophen 500 MG Tablet 1000 MG PO ×3 (06:16→21:04)
[2023-08-27] MEDS: Levothyroxine 25 MCG TABLET PO (06:16)
[2023-08-27] MEDS: traMADol 50 MG Tablet PO ×3 (06:16→21:04)
[2023-08-27] MEDS: Ondansetron ODT 4 MG Tablet PO (07:55)
[2023-08-27] MEDS: Ipratropium Bromide 0.06% NASAL SPRAY 2 SPRAY NASAL ×2 (07:57→20:59)
[2023-08-27] MEDS: Senna/Docusate Sodium 1 Tablet 2 TABLET PO (07:58)
[2023-08-27] MEDS: Lisinopril 20 MG Tablet PO (08:00)
[2023-08-27] MEDS: Vibegron 75 MG TABLET PO (08:00)
[2023-08-27] MEDS: Pantoprazole Sodium 40 MG Tablet PO (08:00)
[2023-08-27] MEDS: Fluoxetine HCl 40 MG CAPSULE PO (08:01)
[2023-08-27] MEDS: Polyethylene Glycol 3350 17 GM PACKET PO (08:01)
[2023-08-27] MEDS: Ezetimibe 10 MG Tablet PO (08:02)
[2023-08-27 08:19] VITALS: BP 150/86; PULSE 90; RESP 16; TEMP 36.6; O2SAT 97
[2023-08-27] MEDS: Donepezil HCl 10 MG Tablet PO (20:33)
[2023-08-27 20:37] VITALS: BP 113/65; PULSE 79; RESP 16; TEMP 36.6; O2SAT 94
[2023-08-27 20:39] VITALS: RESP 15
[2023-08-27] MEDS: Famotidine 20 MG Tablet 40 MG PO (20:59)
[2023-08-28] MEDS: Acetaminophen 500 MG Tablet 1000 MG PO ×3 (05:04→21:01)
[2023-08-28] MEDS: Levothyroxine 25 MCG TABLET PO (05:05)
[2023-08-28] MEDS: traMADol 50 MG Tablet PO ×3 (05:05→21:01)
[2023-08-28] MEDS: Ondansetron ODT 4 MG Tablet PO (05:05)
[2023-08-28 05:06] VITALS: BP 167/87; PULSE 87
[2023-08-28] MEDS: hydrALAZINE 25 MG Tablet PO (05:06)
[2023-08-28 05:53] VITALS: BMI 33.8
[2023-08-28 07:16] VITALS: O2SAT 94
[2023-08-28 08:27] VITALS: BP 164/83; PULSE 75; RESP 17; TEMP 36.9; O2SAT 96
[2023-08-28] MEDS: Ipratropium Bromide 0.06% NASAL SPRAY 2 SPRAY NASAL ×2 (09:23→20:48)
[2023-08-28] MEDS: Lisinopril 20 MG Tablet PO (09:24)
[2023-08-28] MEDS: Ezetimibe 10 MG Tablet PO (09:24)
[2023-08-28] MEDS: Fluoxetine HCl 40 MG CAPSULE PO (09:24)
[2023-08-28] MEDS: Vibegron 75 MG TABLET PO (09:25)
[2023-08-28] MEDS: Pantoprazole Sodium 40 MG Tablet PO (09:25)
[2023-08-28 11:29] VITALS: BP 141/83; PULSE 103; RESP 18; TEMP 36.8; O2SAT 92
[2023-08-28 19:28] VITALS: BP 132/71; PULSE 86; RESP 17; TEMP 36.9; O2SAT 92
[2023-08-28] MEDS: Donepezil HCl 10 MG Tablet PO (20:45)
[2023-08-28 20:51] VITALS: PULSE 86; RESP 16
[2023-08-28] MEDS: Famotidine 20 MG Tablet 40 MG PO (21:01)
[2023-08-29 04:50] VITALS: BMI 33.7
[2023-08-29] MEDS: Levothyroxine 25 MCG TABLET PO (05:01)
[2023-08-29] MEDS: Acetaminophen 500 MG Tablet 1000 MG PO ×3 (05:01→21:36)
[2023-08-29] MEDS: Ondansetron ODT 4 MG Tablet PO (05:02)
[2023-08-29] MEDS: traMADol 50 MG Tablet PO ×3 (05:02→21:36)
[2023-08-29 05:05] VITALS: BP 163/92; PULSE 89
[2023-08-29] MEDS: hydrALAZINE 25 MG Tablet PO (05:05)
[2023-08-29 05:40] VITALS: BP 163/92; PULSE 89
[2023-08-29 06:27] LABS: Anion Gap 7 (5-15); BUN 13 mg/dL (7-18); BUN/Creat Ratio 11.6 RATIO (10-20); Calcium,Total 8.9 mg/dL (8.5-10.1); Chloride 104 mmol/L (98-107); Creatinine, Serum 1.12 mg/dL (0.55-1.02); EST Glomerular Filtration Rate 50 mL/min (>60); Est Glom Filt Rate - Afr Amer 60 mL/min (>60); Estimated Creatinine Clearance 41.77 ml/min; Glucose 117 mg/dL (74-106); Potassium 3.8 mmol/L (3.5-5.1); Sodium Level 138 mmol/L (136-145)
[2023-08-29 06:45] VITALS: BP 170/87; PULSE 89
[2023-08-29 07:26] VITALS: BP 161/89; BP 165/85; BP 179/98; PULSE 87; PULSE 92
[2023-08-29 07:28] VITALS: BP 152/76; PULSE 89; RESP 18; TEMP 36.8; O2SAT 94
[2023-08-29] MEDS: Ipratropium Bromide 0.06% NASAL SPRAY 2 SPRAY NASAL ×2 (08:17→21:35)
[2023-08-29] MEDS: Fluoxetine HCl 40 MG CAPSULE PO (08:18)
[2023-08-29] MEDS: Lisinopril 20 MG Tablet PO (08:18)
[2023-08-29] MEDS: Pantoprazole Sodium 40 MG Tablet PO (08:18)
[2023-08-29] MEDS: Vibegron 75 MG TABLET PO (08:18)
[2023-08-29] MEDS: Ezetimibe 10 MG Tablet PO (08:18)
--- NOTE | 2023-08-29 12:09 | PN_ITS ---
Subjective Subjective Georgina was seen on TEAM rounds today. Her son and dtr were present in the room for rounds. Their questions were answered to their satisfaction. Afebrile VSS-blood pressures are not adequately controlled and over the past 24 hours have ranged from 152/76 to 163/92. She received a dose of hydralazine this morning at 5 AM for a blood pressure of 163/92. Blood pressure did not improve with hydralazine. Orthostatics were done today and the blood pressure lying down was 161/89. Sitting it was 179/98 and standing it was 165/85. And this is not consistent with orthostatic hypotension. Maintaining appropriate oxygen saturation on RA Oral intake - FOOD good FLUIDS poor Discussed with nursing - no problems that need addressed. [place] were removed from the head over the occiput. Reviewed the THERAPY notes Medication list reviewed. All lab drawn this morning was personally reviewed. Sodium is normal at 138 and the potassium is 3.8 and stable. The BUN is 13 and the creatinine is 1.12 which is up from 1.02 on 08/24/2023. The therapists and nursing staff have noted a significant improvement in level of alertness, concentration and ability to remember things since she has been wearing the O2 at night. the patient has also noted a difference in her thought processes and ability to follow instructions. Her BCAT was 32 at admission and has improved to 39 already in less than a week. She is c/o not being able to sleep well at night. This has not been mentioned in the nursing notes. Family notes that her diet at home has been not good. She will buy a pizza and eat nothing but pizza for a few days. They tell me that she has never had HTN in the past. I suspect she has white coat HTN and it is fine when she is at home and comfortable and elevated with stress/anxiety. Has never had an ECHO but, would not be surprised if she has LVH/diastolic dysfunction. Georgina is c/o pain in the knees. This is a chronic problem and she has been getting injections from [facility]. She denies WARD, lightheadedness, CP, SOB, dysuria. She tells me that she has been getting Botox injections in the bladder from Dr. Gomez for bladder spasms. She has frequency and urgency. Denies dysuria. Objective Data Objective Data Vital Signs: Vital Signs Temp Pulse Resp BP Pulse Ox O2 Del Method O2 Flow Rate 98.2 F 89 18 152/76 H 94 Room Air 18 08/29/23 07:28 08/29/23 07:28 08/29/23 07:28 08/29/23 07:28 08/29/23 07:28 08/29/23 07:28 08/25/23 21:14 FiO2 21 08/25/23 21:14 Oxygen Flow Rate (L/min) 18 Oxygen Delivery Method Room Air Weight: 190 lb 11.2 oz Body Mass Index (BMI) 33.7 Intake & Output: Intake and Output for Last 24 Hours 08/27/23 08/28/23 08/29/23 23:59 23:59 23:59 Intake Total 1610 / 1610 240 / 240 690 / 690 Output Total 200 / 200 260 / 260 Balance 1610 / 1610 40 / 40 430 / 430 Lab / Micro Data 08/24/23 05:35 08/29/23 05:43 Labs: Laboratory Results - last 24 hr 08/29/23 05:43: Sodium 138, Potassium 3.8, Chloride 104, Carbon Dioxide 27.0, Anion Gap 7, BUN 13, Creatinine 1.12 H, Estim Creat Clear Calc 41.77, Est GFR (MDRD) Af Amer 60, Est GFR (MDRD) Non-Af 50 L, BUN/Creatinine Ratio 11.6, Glucose 117 H, Calcium 8.9 Micro: Microbiology 08/24/23 13:37 Stool Stool Occult Blood (STEFANY) - Final Occult Blood Positive Physical Exam Const alert and no apparent distress General Appearance: cooperative Neck Neck Narrative: [place] cervical collar is in place. Resp normal respiratory effort, normal air movement and clear to auscultation bilaterally Effort and Inspection: able to speak in complete sentences; Negative for tachypneic or respiratory distress Cardio regular rate, regular rhythm and no gallops Cardio Narrative: No ectopy GI normal to inspection, nondistended, normoactive bowel sounds, soft to palpation and non-tender Extremity no calf tenderness Extremity Narrative: mild pitting edema over the distal anterior tibia BL Skin Skin Narrative: Laceration is intact with no dehiscence, no purulent DC and no gina-incisional erythema. General Skin Exam: no breakdown Rashes: no rashes Assessment & Plan Assessment/Plan (1) Debility: (2) Frequent falls: (3) Closed type II fracture of odontoid process: (4) Laceration of scalp: QUALIFIERS: Encounter type: subsequent encounter Qualified Code(s): S01.01XD - Laceration without foreign body of scalp, subsequent encounter (5) Closed head injury: QUALIFIERS: Encounter type: subsequent encounter Qualified Code(s): S09.90XD - Unspecified injury of head, subsequent encounter (6) Hypothyroid: QUALIFIERS: Hypothyroidism type: acquired Qualified Code(s): E03.9 - Hypothyroidism, unspecified (7) Elevated TSH: (8) Concussion: QUALIFIERS: Encounter type: subsequent encounter Loss of consciousness presence/duration: without LOC Qualified Code(s): S06.0X0D - Concussion without loss of consciousness, subsequent encounter (9) Nausea and vomiting: QUALIFIERS: Vomiting type: unspecified Qualified Code(s): R11.2 - Nausea with vomiting, unspecified (10) Heme positive stool: (11) HTN (hypertension): QUALIFIERS: Hypertension type: unspecified Qualified Code(s): I10 - Essential (primary) hypertension PLAN: Plan 1. Continue therapy 2. Add Coreg 3.125 mg twice daily to the current drug regimen which consists of lisinopril 20 mg daily. Continue as needed hydralazine. 3. straight cath for a UA today. 4. She is agreeable to a new sleep study. She has not had a sleep study for many years and she has never had a CPAP machine. Not clear to me why she is having nausea. Stool is heme + despite Famotidine and Protonix which she was on at admission to the hospital. May need to have endoscopy as an OP. for now will continue the PRN Zofran. Lipase was normal and she has had a cholecystectomy in the past. Both donepezil and Myrbetriq can cause nausea. Prozac also causes nausea and 12 to 29% of patients. Gemtesa was started because the pharmacy does not have Myrbetriq and Gemtesa can also cause nausea. Will hold the donepezil for a few days and decrease the Prozac to 30 mg daily to see if that helps with the nausea. Continue as needed Zofran. The STOP BANG score is 5 for age greater than 50, hypertension, loud snoring, she has been observed to stop breathing when she is sleeping, and she feels chronically tired and sleepy during the daytime. She sometimes takes a few naps a day. She falls asleep every night watching television and leaves the television on all night. Memory is poor and she does not sleep well through the night. She sometimes has restless legs. she has fallen asleep driving in the past. Charges/Coding Visit Charges Inpatient E&M: 72430 Subs Hosp L2
[2023-08-29] MEDS: Carvedilol 3.125 MG TABLET PO ×2 (12:50→16:47)
--- NOTE | 2023-08-29 13:13 | CASEMGMT ---
Social Work IDT met with patient and family (son and daughter) at bedside to discuss care plans. Discussed patient progress with therapy (PT/OT/ST) and nursing. Patient is progressing with therapy. Patient family assist with financial planning and medication support. Family is willing to support and adjust changes with checks and balances in the home. SW informed patient that Medicare has approved for 16 days; anticipated discharge 09/07. SW discussed patient goal for returning home. SW discussed home health care services; patient has no history of home health care services. Patient informed SW that she has significant support from her children. Patient and family are interested in home health care services, if recommended. The patient's daughter informed SW that she would like resources for medical alert and meal delivery services. Family expressed concerns for the patients diet. SW provided resources for medical alert and meal delivery services. Family expressed concerns for chronic falls in home and lack of supervision. Patient requires home O2 at night due to lack of oxygen. Patient will require a sleep study to support potential need for respiratory machine. Family expressed concerns for new diagnosis of hypertension. Patient will need blood pressure medications and BP monitor. SW will continue to follow to assist with transition of care plans. JOSEFINA Young
--- NOTE | 2023-08-29 16:25 | MDS.RN ---
Neck Measurement [address] newell.
[2023-08-29 20:53] LABS: Bacteria 0 SEEN /hpf (None Seen); Mucous, Urine 0 SEEN /hpf (<or=2+); Red Blood Cells-Urine 0 SEEN /hpf (0-5); Squamous Epithelial Cells - UA 0 SEEN /hpf (5-10); White Blood Cells 0 SEEN /hpf (0-5)
[2023-08-29 21:06] LABS: Color, Urine Yellow (Yellow); Glucose, Dipstick Normal (Normal); Ketone-Dipstick Negative (Negative); Leukocyte Esterase-Dipstick Negative /ul (Negative); Nitrite-Dipstick Negative (Negative); Occult Blood-Urine Negative /ul (Negative); Protein-Dipstick Negative (Negative); Urine Bilirubin Dipstick Negative (Negative); Urine Clarity Clear (Clear); Urine Urobilinogen Normal (Normal)
[2023-08-29] MEDS: Famotidine 20 MG Tablet 40 MG PO (21:35)
[2023-08-29 22:00] VITALS: BP 145/78; PULSE 72; PULSE 78; RESP 16; TEMP 36.9; O2SAT 96
[2023-08-30 06:00] VITALS: BMI 33.1
[2023-08-30 06:37] VITALS: BP 136/87; PULSE 82
[2023-08-30] MEDS: hydrALAZINE 25 MG Tablet PO (06:37)
[2023-08-30] MEDS: Levothyroxine 25 MCG TABLET PO (06:38)
[2023-08-30] MEDS: Ondansetron ODT 4 MG Tablet PO (06:41)
[2023-08-30] MEDS: Acetaminophen 500 MG Tablet 1000 MG PO ×3 (06:41→21:11)
[2023-08-30] MEDS: traMADol 50 MG Tablet PO ×3 (06:41→21:11)
[2023-08-30 07:42] VITALS: BP 136/87; PULSE 77; RESP 16; TEMP 36.6; O2SAT 94
[2023-08-30] MEDS: Ipratropium Bromide 0.06% NASAL SPRAY 2 SPRAY NASAL ×2 (08:28→20:10)
[2023-08-30] MEDS: Ezetimibe 10 MG Tablet PO (08:29)
[2023-08-30] MEDS: Vibegron 75 MG TABLET PO (08:29)
[2023-08-30] MEDS: Pantoprazole Sodium 40 MG Tablet PO (08:29)
[2023-08-30] MEDS: Lisinopril 20 MG Tablet PO (08:29)
[2023-08-30] MEDS: Carvedilol 3.125 MG TABLET PO ×2 (08:29→16:12)
[2023-08-30] MEDS: FLUoxetine 10 MG Capsule 30 MG PO (10:02)
[2023-08-30] MEDS: Famotidine 20 MG Tablet 40 MG PO (20:10)
[2023-08-30] MEDS: Senna/Docusate Sodium 1 Tablet 2 TABLET PO (20:10)
[2023-08-30 20:47] VITALS: BP 109/56; PULSE 77; RESP 15; TEMP 36.6; O2SAT 96
[2023-08-31] MEDS: traMADol 50 MG Tablet PO ×3 (05:00→22:42)
[2023-08-31] MEDS: Levothyroxine 25 MCG TABLET PO (05:00)
[2023-08-31] MEDS: Acetaminophen 500 MG Tablet 1000 MG PO ×3 (05:00→22:43)
[2023-08-31 06:00] VITALS: BMI 33.0
[2023-08-31] MEDS: Ipratropium Bromide 0.06% NASAL SPRAY 2 SPRAY NASAL ×3 (09:20→22:41)
[2023-08-31] MEDS: Ezetimibe 10 MG Tablet PO (09:21)
[2023-08-31] MEDS: Vibegron 75 MG TABLET PO (09:22)
[2023-08-31] MEDS: Pantoprazole Sodium 40 MG Tablet PO (09:22)
[2023-08-31] MEDS: FLUoxetine 10 MG Capsule 30 MG PO (09:22)
[2023-08-31] MEDS: Lisinopril 20 MG Tablet PO (09:22)
[2023-08-31] MEDS: Carvedilol 3.125 MG TABLET PO ×2 (09:22→16:47)
[2023-08-31 09:25] VITALS: PULSE 84; RESP 18; O2SAT 92
[2023-08-31 09:52] VITALS: BP 155/78; PULSE 76; RESP 18; TEMP 36.6; O2SAT 97
--- NOTE | 2023-08-31 17:24 | PCM.PROGNOTE ---
Subjective Subjective Afebrile VSS-blood pressure over the past 24 hours has ranged from 136/87 to 155/78. She has not required any as needed hydralazine over the past 24 hours. Heart rate is within normal limits. Maintaining appropriate oxygen saturation on RA Oral intake - FOOD good FLUIDS intake and output for 08/30/2023 is not accurate. Intake and output have been ordered in the past. So far today she has had 740 in 800 out. Discussed with nursing - no problems that need addressed Reviewed the THERAPY notes Medication list reviewed. Current antihypertensives include lisinopril 20 mg daily, carvedilol 3.125 mg twice daily and as needed hydralazine. She tells me that her nose is not congested today. She denies lightheadedness, cephalgia, pain radiating into her arms or legs, chest pain, shortness of breath, palpitations, dysuria and calf tenderness. She tells me she was coughing during speech therapy today and had to drink water. Objective Data Objective Data Vital Signs: Vital Signs Temp Pulse Resp BP Pulse Ox O2 Del Method O2 Flow Rate 97.8 F 76 18 155/78 H 97 Room Air 18 08/31/23 09:52 08/31/23 09:52 08/31/23 09:52 08/31/23 09:52 08/31/23 09:52 08/31/23 09:52 08/25/23 21:14 FiO2 21 08/25/23 21:14 Oxygen Flow Rate (L/min) 18 Oxygen Delivery Method Room Air Weight: 186 lb 8.177 oz Body Mass Index (BMI) 33.0 Intake & Output: Intake and Output for Last 24 Hours 08/29/23 08/30/23 08/31/23 23:59 23:59 23:59 Intake Total 1979 / 1979 570 / 570 740 / 740 Output Total 760 / 760 800 / 800 Balance 1220 / 1220 570 / 570 -60 / -60 Lab / Micro Data 08/24/23 05:35 08/29/23 05:43 Micro: Microbiology 08/24/23 13:37 Stool Stool Occult Blood (STEFANY) - Final Occult Blood Positive Physical Exam Const alert and oriented x3 General Appearance: cooperative HEENT normocephalic, hearing grossly normal bilaterally, external ears normal and external nose normal Eyes PERRL, EOMs intact bilaterally, conjunctivae normal and no scleral icterus Eyes Narrative: No discharge from the eyes. Neck Neck Narrative: [place] cervical collar is in place. Chest Chest Narrative: She has some pain with palpation over the distal manubrium and the xiphoid. No bruising, erythema or opening in the skin. Chest: symmetrical chest wall rise Resp normal respiratory effort and clear to auscultation bilaterally Effort and Inspection: Negative for tachypneic or labored Cardio regular rate, regular rhythm and no gallops Cardio Narrative: No ectopy GI normal to inspection, nondistended, normoactive bowel sounds, soft to palpation and non-tender GI Narrative: No guarding with palpation. Not tympanic. Denies feeling bloated. Had some nausea this AM.......states she threw up however nursing reports it was primarily spit in the emesis bag. Stool is heme +. Will need to enquire if she has ever had an EGD or a colonoscopy. no CVA tenderness Back/Spine straight leg raise negative bilaterally Back/Spine Narrative: No pain with palpation or percussion over the vertebrae. No abrasions on the back. Extremity no calf tenderness Extremity Narrative: mild pitting edema over the distal anterior tibia BL General Extremity: Negative for edema Skin Skin Narrative: Laceration is intact with no dehiscence, no purulent DC and no gina-incisional erythema. General Skin Exam: no breakdown Rashes: no rashes Neuro oriented x3, CN's II-XII intact bilaterally, moves all extremities and no focal motor deficits Psych affect normal Psych Narrative: Making good eye contact with me when we talk. She is calm and not anxious or restless. Appearance: appropriate Attitude: calm and engaged Activity / Motor Behavior: appropriate eye contact; Negative for psychomotor agitation Speech: normal speech Assessment & Plan Assessment/Plan (1) Debility: (2) Frequent falls: (3) Closed type II fracture of odontoid process: (4) Laceration of scalp: QUALIFIERS: Encounter type: subsequent encounter Qualified Code(s): S01.01XD - Laceration without foreign body of scalp, subsequent encounter (5) Closed head injury: QUALIFIERS: Encounter type: subsequent encounter Qualified Code(s): S09.90XD - Unspecified injury of head, subsequent encounter (6) Hypothyroid: QUALIFIERS: Hypothyroidism type: acquired Qualified Code(s): E03.9 - Hypothyroidism, unspecified (7) Elevated TSH: (8) Concussion: QUALIFIERS: Encounter type: subsequent encounter Loss of consciousness presence/duration: without LOC Qualified Code(s): S06.0X0D - Concussion without loss of consciousness, subsequent encounter (9) Nausea and vomiting: QUALIFIERS: Vomiting type: unspecified Qualified Code(s): R11.2 - Nausea with vomiting, unspecified (10) Heme positive stool: (11) HTN (hypertension): QUALIFIERS: Hypertension type: unspecified Qualified Code(s): I10 - Essential (primary) hypertension PLAN: Plan 1. Continue therapy 2. Continue to encourage increased fluid intake 3. Increase Coreg to 6.25 mg twice daily and continue to monitor blood pressure every 4 hours while awake. Seems to be responding well to Coreg. May be able to decrease or wean lisinopril off as we increase the Coreg. I suspect increased catecholamine release with stress contributes to her hypertension significantly. 4. Recheck a BMP on Tuesday. 5. The sleep lab was able to get her in for a sleep study on the night following discharge from acute rehab. She will go home in the a.m. on Tuesday. She will follow-up with the pulmonary department to discuss the results. Will need oxygen at discharge. Will need to repeat an overnight trending pulse ox prior to discharge. Charges/Coding Visit Charges Inpatient E&M: 78584 Subs Hosp L1
[2023-08-31 18:00] VITALS: BP 127/61; PULSE 87; RESP 16; TEMP 37.1; O2SAT 92
[2023-08-31] MEDS: Famotidine 20 MG Tablet 40 MG PO (22:42)
[2023-08-31 22:59] VITALS: BP 149/81; PULSE 85; O2SAT 97
[2023-09-01] MEDS: Levothyroxine 25 MCG TABLET PO (05:32)
[2023-09-01] MEDS: Acetaminophen 500 MG Tablet 1000 MG PO ×3 (05:36→22:05)
[2023-09-01] MEDS: Ipratropium Bromide 0.06% NASAL SPRAY 2 SPRAY NASAL ×3 (05:36→22:05)
[2023-09-01] MEDS: traMADol 50 MG Tablet PO ×3 (05:37→22:05)
[2023-09-01 06:00] VITALS: BP 145/69; PULSE 86; RESP 16; TEMP 36.6; O2SAT 93; BMI 33.0
[2023-09-01] MEDS: FLUoxetine 10 MG Capsule 30 MG PO (08:01)
[2023-09-01] MEDS: Ezetimibe 10 MG Tablet PO (08:01)
[2023-09-01] MEDS: Lisinopril 20 MG Tablet PO (08:01)
[2023-09-01] MEDS: Pantoprazole Sodium 40 MG Tablet PO (08:02)
[2023-09-01] MEDS: Carvedilol 6.25 MG Tablet PO ×2 (08:02→16:57)
[2023-09-01] MEDS: Vibegron 75 MG TABLET PO (08:02)
[2023-09-01 09:00] VITALS: BP 103/56; BP 94/55
[2023-09-01 10:00] VITALS: BP 148/85; PULSE 80
--- NOTE | 2023-09-01 12:01 | PN_ITS ---
Subjective Subjective Afebrile VSS Maintaining appropriate oxygen saturation on RA Oral intake - FOOD good FLUIDS improving- She had 1340 in yesterday. Fluid balance yesterday was +540. Discussed with nursing - no problems that need addressed Reviewed the THERAPY notes Medication list reviewed. Georgina tells me that she became lightheaded with standing today and had to sit back down. She told me that her BP dropped however I do not see that reflected in the nurses note. Will check with nursing. She also tells me that she has a cough but, I had her take multiple deep breaths and she never coughed. The lungs were CTA after deep breaths. She has had rhinitis and is on Atrovent nasal spray.....cough may be due to post nasal drainage. She denies CP, SOB, cephalgia, radicular pain into her legs and arms, nausea/vomiting.......this is better since we have been holding the Aricept. She did not need to take any Zofran yesterday or today. She last took Zofran on 08/30/2023 at 06 40. She also denies calf pain and dysuria. Objective Data Objective Data Vital Signs: Vital Signs Temp Pulse Resp BP Pulse Ox O2 Del Method O2 Flow Rate 97.8 F 86 16 145/69 H 93 Room Air 2 09/01/23 06:00 09/01/23 06:00 09/01/23 06:00 09/01/23 06:00 09/01/23 06:00 09/01/23 10:00 08/31/23 22:59 FiO2 21 08/25/23 21:14 Oxygen Flow Rate (L/min) 2 Oxygen Delivery Method Room Air Weight: 186 lb 12.8 oz Body Mass Index (BMI) 33.0 Intake & Output: Intake and Output for Last 24 Hours 08/30/23 08/31/23 09/01/23 23:59 23:59 23:59 Intake Total 570 / 570 1340 / 1340 360 / 360 Output Total 800 / 800 200 / 200 Balance 570 / 570 540 / 540 160 / 160 Lab / Micro Data 08/24/23 05:35 08/29/23 05:43 Micro: Microbiology 08/24/23 13:37 Stool Stool Occult Blood (STEFANY) - Final Occult Blood Positive Physical Exam Const alert Constitutional Narrative: Sitting in the recliner at the bedside and has almost finished 900 cc's of water. General Appearance: cooperative Neck Neck Narrative: [place] collar is in place. Resp normal respiratory effort, normal air movement and clear to auscultation bilaterally Resp Narrative: Able to speak in complete sentences with no conversational dyspnea. Effort and Inspection: Negative for tachypneic or labored Cardio regular rate, regular rhythm and no gallops GI normal to inspection, nondistended, normoactive bowel sounds, soft to palpation and non-tender GI Narrative: No guarding with palpation. Denies nausea. Extremity no calf tenderness Extremity Narrative: Trace edema in the ankles. Compression stockings are on. Skin General Skin Exam: no breakdown Rashes: no rashes Psych cooperative and affect normal Appearance: appropriate Assessment & Plan Assessment/Plan (1) Debility: (2) Frequent falls: (3) Closed type II fracture of odontoid process: (4) Laceration of scalp: QUALIFIERS: Encounter type: subsequent encounter Qualified Code(s): S01.01XD - Laceration without foreign body of scalp, subsequent enco unter (5) Closed head injury: QUALIFIERS: Encounter type: subsequent encounter Qualified Code(s): S09.90XD - Unspecified injury of head, subsequent encounter (6) Hypothyroid: QUALIFIERS: Hypothyroidism type: acquired Qualified Code(s): E03.9 - Hypothyroidism, unspecified (7) Elevated TSH: (8) Concussion: QUALIFIERS: Encounter type: subsequent encounter Loss of consciousness presence/duration: without LOC Qualified Code(s): S06.0X0D - Concussion without loss of consciousness, subsequent encounter (9) Nausea and vomiting: QUALIFIERS: Vomiting type: unspecified Qualified Code(s): R11.2 - Nausea with vomiting, unspecified (10) Heme positive stool: (11) HTN (hypertension): QUALIFIERS: Hypertension type: unspecified Qualified Code(s): I10 - Essential (primary) hypertension (12) Lightheadedness: PLAN: Plan 1. Continue therapy 2. Check orthostatic vital signs today. She was not orthostatic at admission however she has been started on antihypertensives so will repeat the ort hostatics. She has been increasing her fluid intake as instructed. 3. BMP has been ordered for the morning 4. I think the nausea is due to Aricept. I suspect she does not need both Famotidine and Protonix. Continue to hold the Aricept......try restarting at a lower dose or consider Namenda or follow up with neurolog Charges/Coding Visit Charges Inpatient E&M: 21487 Subs Hosp L1
[2023-09-01 14:00] VITALS: BP 115/63; BP 122/62; BP 123/65; PULSE 76; PULSE 80
[2023-09-01 17:59] VITALS: BP 116/67; PULSE 73; RESP 16; TEMP 37.2; O2SAT 97
[2023-09-01 22:00] VITALS: BP 158/72; PULSE 72; RESP 15; TEMP 37; O2SAT 96
[2023-09-01] MEDS: Famotidine 20 MG Tablet 40 MG PO (22:05)
[2023-09-02 06:00] VITALS: BP 140/76; PULSE 74; BMI 32.4
[2023-09-02] MEDS: traMADol 50 MG Tablet PO ×3 (06:10→21:49)
[2023-09-02] MEDS: Levothyroxine 25 MCG TABLET PO (06:10)
[2023-09-02] MEDS: Ipratropium Bromide 0.06% NASAL SPRAY 2 SPRAY NASAL ×3 (06:10→21:52)
[2023-09-02] MEDS: Acetaminophen 500 MG Tablet 1000 MG PO ×3 (06:11→21:51)
[2023-09-02] MEDS: Pantoprazole Sodium 40 MG Tablet PO (08:14)
[2023-09-02] MEDS: Vibegron 75 MG TABLET PO (08:14)
[2023-09-02] MEDS: FLUoxetine 10 MG Capsule 30 MG PO (08:14)
[2023-09-02] MEDS: Senna/Docusate Sodium 1 Tablet 2 TABLET PO (08:15)
[2023-09-02] MEDS: Ezetimibe 10 MG Tablet PO (08:15)
[2023-09-02] MEDS: Lisinopril 10 MG Tablet PO (08:15)
[2023-09-02] MEDS: Carvedilol 6.25 MG Tablet PO ×2 (08:15→17:28)
[2023-09-02 10:00] VITALS: BP 114/64; PULSE 75
[2023-09-02 14:41] VITALS: BP 144/79; PULSE 81
[2023-09-02 17:50] VITALS: BP 143/75; PULSE 79; RESP 16; TEMP 37; O2SAT 96
[2023-09-02 21:49] VITALS: BP 138/76; PULSE 72; RESP 16; TEMP 36.1; O2SAT 97
[2023-09-02] MEDS: Famotidine 20 MG Tablet 40 MG PO (21:50)
[2023-09-03 05:07] VITALS: BP 143/78; PULSE 75; RESP 16; TEMP 36.2; O2SAT 99; BMI 32.3
[2023-09-03] MEDS: Acetaminophen 500 MG Tablet 1000 MG PO ×3 (05:12→21:37)
[2023-09-03] MEDS: traMADol 50 MG Tablet PO ×3 (05:12→21:41)
[2023-09-03] MEDS: Levothyroxine 25 MCG TABLET PO (05:12)
[2023-09-03] MEDS: Ipratropium Bromide 0.06% NASAL SPRAY 2 SPRAY NASAL ×3 (05:12→21:36)
[2023-09-03] MEDS: FLUoxetine 10 MG Capsule 30 MG PO (08:24)
[2023-09-03] MEDS: Pantoprazole Sodium 40 MG Tablet PO (08:24)
[2023-09-03] MEDS: Ezetimibe 10 MG Tablet PO (08:24)
[2023-09-03] MEDS: Vibegron 75 MG TABLET PO (08:25)
[2023-09-03] MEDS: Carvedilol 6.25 MG Tablet PO ×2 (08:25→17:38)
[2023-09-03] MEDS: Lisinopril 10 MG Tablet PO (08:25)
[2023-09-03 09:33] VITALS: BP 141/70; PULSE 76; RESP 18
[2023-09-03] MEDS: guaiFENesin 10 ML UDC (200MG/10ML) GT ×2 (13:40→21:42)
[2023-09-03 14:00] VITALS: BP 150/71
[2023-09-03 17:41] VITALS: BP 177/88; PULSE 78
[2023-09-03] MEDS: hydrALAZINE 25 MG Tablet PO (17:41)
[2023-09-03 18:00] VITALS: BP 125/70; PULSE 78
[2023-09-03 19:08] VITALS: PULSE 78; RESP 18; TEMP 35.6; O2SAT 96
[2023-09-03] MEDS: Famotidine 20 MG Tablet 40 MG PO (21:37)
[2023-09-03] MEDS: Senna/Docusate Sodium 1 Tablet 2 TABLET PO (21:39)
[2023-09-04] VITALS (8 sets, daily range): BP systolic 87–183; BP diastolic 50–86; PULSE 74–86; RESP 16–18; TEMP 36.6–36.7; O2SAT 93–94; BMI 32.0
[2023-09-04] MEDS: Levothyroxine 25 MCG TABLET PO (06:15)
[2023-09-04] MEDS: Acetaminophen 500 MG Tablet 1000 MG PO ×3 (06:15→21:08)
[2023-09-04] MEDS: Ipratropium Bromide 0.06% NASAL SPRAY 2 SPRAY NASAL ×3 (06:15→21:06)
[2023-09-04] MEDS: traMADol 50 MG Tablet PO ×3 (06:18→21:11)
[2023-09-04] MEDS: hydrALAZINE 25 MG Tablet PO ×2 (06:38→17:38)
[2023-09-04] MEDS: guaiFENesin 10 ML UDC (200MG/10ML) GT (08:28)
[2023-09-04] MEDS: FLUoxetine 10 MG Capsule 30 MG PO (08:28)
[2023-09-04] MEDS: Pantoprazole Sodium 40 MG Tablet PO (08:36)
[2023-09-04] MEDS: Carvedilol 6.25 MG Tablet PO ×2 (08:36→17:36)
[2023-09-04] MEDS: Vibegron 75 MG TABLET PO (08:36)
[2023-09-04] MEDS: Ezetimibe 10 MG Tablet PO (08:36)
[2023-09-04] MEDS: Lisinopril 10 MG Tablet PO (08:36)
[2023-09-04] MEDS: Senna/Docusate Sodium 1 Tablet 2 TABLET PO (21:07)
[2023-09-04] MEDS: Famotidine 20 MG Tablet 40 MG PO (21:07)
[2023-09-05 05:14] VITALS: BP 149/84; PULSE 90; RESP 17; TEMP 36.4; O2SAT 97
[2023-09-05] MEDS: traMADol 50 MG Tablet PO (05:36)
[2023-09-05] MEDS: Levothyroxine 25 MCG TABLET PO (05:37)
[2023-09-05] MEDS: Ipratropium Bromide 0.06% NASAL SPRAY 2 SPRAY NASAL ×3 (05:37→22:29)
[2023-09-05] MEDS: Acetaminophen 500 MG Tablet 1000 MG PO ×3 (05:37→22:29)
[2023-09-05 05:38] LABS: Anion Gap 4 (5-15); BUN 20 mg/dL (7-18); BUN/Creat Ratio 15.4 RATIO (10-20); Calcium,Total 9.4 mg/dL (8.5-10.1); Chloride 104 mmol/L (98-107); EST Glomerular Filtration Rate 42 mL/min (>60); Est Glom Filt Rate - Afr Amer 51 mL/min (>60); Glucose 98 mg/dL (74-106); Potassium 4.4 mmol/L (3.5-5.1); Sodium Level 138 mmol/L (136-145)
[2023-09-05 05:47] VITALS: BMI 32.1
[2023-09-05] MEDS: Senna/Docusate Sodium 1 Tablet 2 TABLET PO (08:02)
[2023-09-05] MEDS: Vibegron 75 MG TABLET PO (08:02)
[2023-09-05] MEDS: Ezetimibe 10 MG Tablet PO (08:02)
[2023-09-05] MEDS: Carvedilol 6.25 MG Tablet PO ×2 (08:02→16:54)
[2023-09-05] MEDS: FLUoxetine 10 MG Capsule 30 MG PO (08:02)
[2023-09-05] MEDS: Polyethylene Glycol 3350 17 GM PACKET PO (09:50)
[2023-09-05] MEDS: Lisinopril 10 MG Tablet PO (09:50)
[2023-09-05] MEDS: Pantoprazole Sodium 40 MG Tablet PO (09:50)
[2023-09-05 10:00] VITALS: BP 122/70; PULSE 77; RESP 16; O2SAT 98
--- NOTE | 2023-09-05 10:27 | PN_ITS ---
Subjective Subjective Georgina was seen on team rounds today. Her family was present in the room. Afebrile VSS -blood pressures are erratic. Yesterday at 10 AM the recorded blood pressure was 87/50. Orthostatics last week were negative but Occupational Therapy recorded a drop in blood pressure when going from sitting to standing that could not really reproduce later in the day. Blood pressure this morning is 122/70 with a pulse rate of 77. Current antihypertensives include carvedilol 6.25 mg twice daily and lisinopril 10 mg daily. Maintaining appropriate oxygen saturation on RA Oral intake - FOOD good FLUIDS good, much better than at admission. Discussed with nursing - no problems that need addressed Reviewed the THERAPY notes Medication list reviewed. But he denies lightheadedness, cephalgia, vertigo, shortness of breath, chest pain, nausea/vomiting/epigastric pain, dysuria and calf tenderness. Georgina admits to feeling anxious. She does not c/o feeling depressed. She is more worried about what is to happen to her at DC. Will she have enough money to live on. She she be able to stay in her current living situation. We discussed with Georgina and her family that this is quite normal/common in elderly, ayush when they live by themselves. Family will continue to manage her meds at home and her finances. Cognition has improved with applying oxygen at night. She is scheduled for a sleep study night following DC from reha.. Has been very cooperative with therapy and has been making good progress. Very important for her to maintain an exercise program post DC from rehab. Objective Data Objective Data Vital Signs: Vital Signs Temp Pulse Resp BP Pulse Ox O2 Del Method O2 Flow Rate 97.5 F L 77 16 122/70 H 98 Room Air 2 09/05/23 05:14 09/05/23 10:00 09/05/23 10:00 09/05/23 10:00 09/05/23 10:00 09/05/23 10:00 09/03/23 05:07 FiO2 21 08/25/23 21:14 Oxygen Flow Rate (L/min) 2 Oxygen Delivery Method Room Air Weight: 181 lb 10.574 oz Body Mass Index (BMI) 32.1 Intake & Output: Intake and Output for Last 24 Hours 09/03/23 09/04/23 09/05/23 23:59 23:59 23:59 Intake Total 2220 / 2220 1720 / 1720 300 / 300 Output Total 800 / 800 900 / 900 450 / 450 Balance 1420 / 1420 820 / 820 -150 / -150 Lab / Micro Data 08/24/23 05:35 09/05/23 05:10 Labs: Laboratory Results - last 24 hr 09/05/23 05:10: Sodium 138, Potassium 4.4, Chloride 104, Carbon Dioxide 30.0, Anion Gap 4 L, BUN 20 H, Creatinine 1.30 H, Estim Creat Clear Calc 35.00, Est GFR (MDRD) Af Amer 51 L, Est GFR (MDRD) Non-Af 42 L, BUN/Creatinine Ratio 15.4, Glucose 98, Calcium 9.4 Micro: Microbiology 08/24/23 13:37 Stool Stool Occult Blood (STEFANY) - Final Occult Blood Positive Physical Exam Const alert and no apparent distress Constitutional Narrative: Paying close attention to what is being said on team rounds. Making good eye contact with the speakers. Much more alert and able to focus since arrival on rehab. Making good progress in therapy. General Appearance: cooperative HEENT moist oral mucous membranes Neck Neck Narrative: [place] collar is in place. Resp normal respiratory effort, normal air movement and clear to auscultation bilaterally Resp Narrative: Able to speak in complete sentences with no conversational dyspnea. Effort and Inspection: Negative for tachypneic or labored Cardio regular rate, regular rhythm and no gallops GI normal to inspection, nondistended, normoactive bowel sounds, soft to palpation and non-tender GI Narrative: No guarding with palpation. Denies nausea. Extremity no calf tenderness Extremity Narrative: Trace edema in the ankles. Compression stockings are on. Skin General Skin Exam: no breakdown Rashes: no rashes Psych cooperative and affect normal Appearance: appropriate Assessment & Plan Assessment/Plan (1) Debility: (2) Frequent falls: (3) Closed type II fracture of odontoid process: (4) Laceration of scalp: QUALIFIERS: Encounter type: subsequent encounter Qualified Code( s): S01.01XD - Laceration without foreign body of scalp, subsequent encounter (5) Closed head injury: QUALIFIERS: Encounter type: subsequent encounter Qualified Code(s): S09.90XD - Unspecified injury of head, subsequent encounter (6) Hypothyroid: QUALIFIERS: Hypothyroidism type: acquired Qualified Code(s): E03.9 - Hypothyroidism, unspecified (7) Elevated TSH: (8) Concussion: QUALIFIERS: Encounter type: subsequent encounter Loss of consciousness presence/duration: without LOC Qualified Code(s): S06.0X0D - Concussion without loss of consciousness, subsequent encounter (9) Nausea and vomiting: QUALIFIERS: Vomiting type: unspecified Qualified Code(s): R11.2 - Nausea with vomiting, unspecified PLAN: Resolved with discontinuation of Aricept and decreasing the dose of Prozac. (10) Heme positive stool: PLAN: Heme positive stool but with no anemia. Will defer workup to her family practitioner. (11) HTN (hypertension): QUALIFIERS: Hypertension type: unspecified Qualified Code(s): I10 - Essential (primary) hypertension PLAN: Catecholamine driven. good response to Coreg but, BP still goes up with anxiety and we have needed to give Hydralazine at times. (12) Lightheadedness: (13) NAYA (obstructive sleep apnea): PLAN: Plan 1. Continue therapy 2. Change the Tramadol to TID PRN. Continue acetaminophen 1000 mg p.o. every 8 hours. 3. Consider restarting Aricept at a lower dose to see if she can tolerate. 10 mg caused nausea and vomiting. We also decreased the dose of Prozac because of the nausea........12-29% of people on Prozac have nausea. 4. May need to add something for anxiety. Would consider Buspar. She is not depressed........She is more anxious than depressed. PT is agreeable to starting Buspar for anxiety. and will decrease Prozac to 20 mg and hold there. 5. DC lisinopril due to Low BP and continue Coreg. Continue as needed hydralazine. I suspect if we control her anxiety the blood pressures will come down. 6. Check orthostatics today 7. I recommended they consider seeing a neurologist to assess for dementia and need for medications such as Aricept and Namenda. They had been going to see a neurologist in the past but, they never made it there. With treating sleep apnea and increasing the Levothyroxine may not need Aricept. Charges/Coding Visit Charges Inpatient E&M: 24840 Subs Hosp L2
[2023-09-05 12:00] VITALS: BP 129/77; BP 133/74; BP 136/76; PULSE 81; PULSE 89; PULSE 94
[2023-09-05 14:00] VITALS: BP 139/70; PULSE 84
--- NOTE | 2023-09-05 16:22 | CASEMGMT ---
Addendum entered by Nikki Dickey 09/05/23 16:44: Correction: referral sent to [facility], [facility], and [facility]. Original Note: Social Work IDT met with patient, daughter, and additional family member at bedside for care plan meeting. Discussed patient progress with therapy (PT/OT/ST) and nursing. Patient anticipates discharge on 09/26/2023. Patient and family are agreeable to discharge plans. SW discussed patient anticipated discharge plan for home with home health care services and family support. Patient's daughter informed SW that the patient does not have a preference of home health care providers. SW submitted referral to home health care agency: [facility], [facility], and [facility]. Patient has sleep study scheduled at discharge. Overnight pulse oximetry is required to determine home O2 DME need. Patient has been sleeping with oxygen on unit. SW is awaiting overnight oximetry study for home O2 evaluation. SW will provide update to patient and family regarding accepting home health care provider. SW will continue to follow for discharge plans. JOSEFINA Young
[2023-09-05 16:55] VITALS: BP 130/80; PULSE 77
[2023-09-05 22:00] VITALS: BP 158/72; PULSE 75; RESP 15; TEMP 36.4; O2SAT 97
[2023-09-05] MEDS: Famotidine 20 MG Tablet 40 MG PO (22:28)
[2023-09-06 06:00] VITALS: BP 136/70; PULSE 83; RESP 15; TEMP 36.7; O2SAT 95
[2023-09-06] MEDS: Levothyroxine 50 MCG Tablet PO (06:32)
[2023-09-06] MEDS: Ipratropium Bromide 0.06% NASAL SPRAY 2 SPRAY NASAL ×2 (06:33→21:54)
[2023-09-06] MEDS: Acetaminophen 500 MG Tablet 1000 MG PO ×3 (06:34→21:54)
[2023-09-06] MEDS: FLUoxetine 10 MG Capsule 30 MG PO (08:07)
[2023-09-06] MEDS: Carvedilol 6.25 MG Tablet PO ×2 (08:08→17:15)
[2023-09-06] MEDS: Vibegron 75 MG TABLET PO (08:10)
[2023-09-06] MEDS: Pantoprazole Sodium 40 MG Tablet PO (08:11)
[2023-09-06] MEDS: Ezetimibe 10 MG Tablet PO (08:12)
[2023-09-06 10:00] VITALS: BP 126/70; PULSE 76
--- NOTE | 2023-09-06 11:48 | CASEMGMT ---
Addendum entered by Nikki Dickey 09/06/23 12:55: SW contacted patient's daughter, Netta to provide home health care provider choice and information. Netta informed SW that she has ordered patient's DME for hip kit and shower chair; confirm schedule delivery for 09/06. Original Note: Social Work SW met with patient at bedside to review accepting home health care [facility] and [facility]. Patient provided choice for [facility] services PT/OT/ST/SN. Discharge [facility] PT/OT/ST/SN JOSEFINA Young
[2023-09-06] MEDS: guaiFENesin 10 ML UDC (200MG/10ML) GT ×2 (13:19→22:41)
[2023-09-06 13:42] VITALS: BMI 32.1
[2023-09-06 13:43] VITALS: BP 116/71; PULSE 87
[2023-09-06 18:00] VITALS: BP 158/84; PULSE 63; RESP 16; TEMP 36.2; O2SAT 97
[2023-09-06] MEDS: Famotidine 20 MG Tablet 40 MG PO (21:54)
[2023-09-06 22:00] VITALS: BP 141/75; PULSE 74; RESP 16; RESP 17; TEMP 36.3; O2SAT 98
[2023-09-06] MEDS: Senna/Docusate Sodium 1 Tablet 2 TABLET PO (22:05)
[2023-09-07] VITALS (9 sets, daily range): BP systolic 117–171; BP diastolic 60–81; PULSE 77–102; RESP 15–17; TEMP 36.1–37.2; O2SAT 92–98; BMI 31.6
[2023-09-07] MEDS: Levothyroxine 50 MCG Tablet PO (05:00)
[2023-09-07] MEDS: Ipratropium Bromide 0.06% NASAL SPRAY 2 SPRAY NASAL ×2 (05:00→21:53)
[2023-09-07] MEDS: Acetaminophen 500 MG Tablet 1000 MG PO ×3 (05:01→22:00)
[2023-09-07] MEDS: hydrALAZINE 25 MG Tablet PO (05:12)
[2023-09-07] MEDS: Pantoprazole Sodium 40 MG Tablet PO (07:56)
[2023-09-07] MEDS: Carvedilol 6.25 MG Tablet PO ×2 (07:56→17:01)
[2023-09-07] MEDS: Vibegron 75 MG TABLET PO (07:56)
[2023-09-07] MEDS: Ezetimibe 10 MG Tablet PO (07:57)
[2023-09-07] MEDS: Senna/Docusate Sodium 1 Tablet 2 TABLET PO ×2 (07:58→21:59)
[2023-09-07] MEDS: FLUoxetine 10 MG Capsule 30 MG PO (08:00)
--- NOTE | 2023-09-07 10:55 | DCINST_ITS ---
Discharge Instructions Diet Discharge Diet: - (Low fat, low salt) Activity Discharge Activity: Return to Normal Activity Weight Bearing Status: Full weight bearing Keep extremity elevated above heart level: Legs Dressing / Incision Call your doctor if you observe: Fever of 101 or Higher, Inability to urinate, Shortness of breath, Dizziness, Fainting spells, Swelling in the ankles, Chest pain, Increased palpitations (irregular heartbeat), Calf discomfort and Uncontrolled pain Follow Up Care Please Follow Up With: Richard Cruz MD When: Has an appt scheduled for near future. Test Results: Test results from this visit will be discussed in further detail at your follow- up appointment, if applicable. Pending Tests Upon Discharge: none Discharge Plan Admission Admit Date/Time: 08/23/23 15:33 Primary Reason for Your Visit: Debility due to fall with fracture of the Dens. Attending Provider: Marina Gotti Primary Care Provider: Richard Cruz Instructions Patient Instructions: What Are Snoring and Sleep Apnea?, Preventing Falls in the Home, Exercises to Prevent Falls Additional Instructions / Restrictions: 1. You have done very well in therapy! In order to maintain your stability with walking and strength you should start a regular exercise program at home. I have given you some printed information on an exercise program and The therapists have also talked with you about exercises to do once you are home. If you are not active and you sit around a lot then you will lose your strength and this will lead to more falls. You must USE IT OR LOSE IT Marina! This is especially important for you because I know you want to stay in your home and not have to go to a nursing facility. Falls lead to fractures and fractures lead to surgeries and increased disability. I have given you some information on how to prevent falls in the home. 2. There are a few things that have been contributing to memory loss besides dementia. Other things that contribute to loss of memory include an underactive thyroid, untreated sleep apnea, depression and lack of socialization. You were not taking quite enough thyroid supplement and we have increased the dose. Dr. Cruz will want to recheck your thyroid lab tests in another 4-6 weeks to make sure that you are on an appropriate dose. Over time the dose can change. Your oxygen was lower than it should be 30% of the time when you were sleeping. When the oxygen drops that low your brain wakes you up to take a deep breath and you don't get into stage 4 sleep (also called REM sleep). This causes chronic sleep deprivation and can lead to problems with the rhythm of your heart, strokes, restless legs, daytime sleepiness/napping, memory loss, etc. You became much more alert and able to remember from one day to the next what the therapists were telling you to do. We ALL noticed a big difference after you were on the oxygen at night for a few days. You will have a sleep study the night you are discharged from rehab and then follow up with the pulmonary doctor to discuss the results of the sleep study. 3. I don't think your dementia is as bad as everyone thought. I think it is a good idea for your daughter to continue setting up your medications for you and your son continues to manage your finances. I would recommend following up with a neurologist for some testing and recommendations on medications. I stopped the Aricept (donepezil) while you were on rehab. I stopped it to see if the Nausea and vomiting would resolve. GI upset is one of the most frequent side effects of that medication. If the neurologist thinks you need to be on Aricept prehaps you will tolerate a lower dose (like 5 mg a day). I also decreased the dose of Prozac because up to 29% of patients have nausea with Prozac. Fortunately with the changes in the medication the nausea and vomiting have gone away. You are taking 20 mg of Prozac daily now and your mood is good. You do get anxious and this is very common in the elderly, ayush those living alone. When you get anxious your BP increases significantly and we have had to start you on a BP pill. You worry about being alone, about having enough money to live on, about losing your memory and having to live in a mcc, about your children and your grandchildren, about people trying to cheat you and take advantage of you and the list goes on. I have started you on a medication called Buspar. this medication treats only anxiety and it is not addictive. You take just take when you think you need it.....you have to take it 2-3 times a day as directed. I started you on twice a day and you have been tolerating it well. If things change when you go home Dr. Cruz may have to increase the dose to 3 times a day and you should let him know how you are felling and what you are worried about. 4. It has been a pleasure meeting you and your family Marina. If you or your family have any questions following discharge from rehab please do not hesitate to call me. OFFICE: [phone] CELL: [phone] Discharge Orders/Prescriptions Prescriptions: New fluoxetine [Prozac] 20 mg capsule 20 mg PO DAILY Qty: 30 0RF carvedilol 6.25 mg Tablet 6.25 mg PO BIDCM Qty: 60 0RF tramadol 50 mg Tablet 50 mg PO TID PRN (Reason: Pain Score 4-10) Qty: 21 0RF Rx Instructions: 1 tab every 8 hours as needed for pain >3/10 acetaminophen 500 mg Tablet 1,000 mg PO Q8 Qty: 180 0RF levothyroxine 50 mcg Tablet 50 mcg PO DAILY@0600 Qty: 30 0RF ipratropium bromide 42 mcg (0.06 %) [place],Non-Aerosol 2 spray NASAL TID Qty: 1 0RF polyethylene glycol 3350 [Miralax] 17 gram/dose powder 17 g PO BID Qty: 850 0RF Continued famotidine 40 mg Tablet 40 mg PO QHS pantoprazole [address] For Susp In Packet 40 mg PO DAILY Myrbetriq 50 mg Tablet Extended Release 24 Hr 50 mg PO DAILY ezetimibe 10 mg tablet 10 mg PO DAILY albuterol sulfate 90 mcg/actuation HFA aerosol inhaler 2 inh inhalation Q4H PRN (Reason: SOB,Wheezing) Discontinued fluoxetine 40 mg Capsule 40 mg PO DAILY donepezil 10 mg Tablet 10 mg PO DAILY levothyroxine [Synthroid] 25 mcg Tablet 25 mcg PO DAILY tramadol 50 mg tablet 50 mg PO Q6H PRN (Reason: pain) oxybutynin chloride 10 mg tablet extended release 24hr 10 mg PO DAILY Referrals / Follow Up: Lab,Sleep [Other] - 09/08/23 8:00 pm (d/c 8pm to sleep lab ) Bro Ferrara [Other] - 09/16/23 10:00 am (Need to do Xray prior to appointment. Can go to any [facility] Location) Richard Cruz MD [Primary Care Provider] - 09/12/23 9:20 am Disposition Disposition (needs filled in before D/C Order can be placed): Home Health Service
--- NOTE | 2023-09-07 12:03 | PCM.DC.SUM ---
Providers Date of Admission: 08/23/23 Date of Discharge: 09/08/23 Primary Care Physician: Dr. Richard Cruz MD None Reason For Visit: CERVICAL FRACTURE Diagnosis Discharge Diagnosis (1) Debility: Status: Acute Code(s): R53.81 - Other malaise Plan: Due to non-displaced fractures of the dens due to falls. (2) Frequent falls: Status: Chronic Code(s): R29.6 - Repeated falls Plan: Related to untreated sleep apnea, sedating medications, elevated TSH, etc. (3) Closed type II fracture of odontoid process: Status: Inactive Code(s): S12.110A - Anterior displaced Type II dens fracture, initial encounter for closed fracture (4) Laceration of scalp: Status: Inactive Code(s): S01.01XA - Laceration without foreign body of scalp, initial encounter Qualifiers: Encounter type: subsequent encounter Qualified Code(s): S01.01XD - Laceration without foreign body of scalp, subsequent encounter Plan: Healed. [place] removed. (5) Closed head injury: Status: Acute Code(s): S09.90XA - Unspecified injury of head, initial encounter Qualifiers: Encounter type: subsequent encounter Qualified Code(s): S09.90XD - Unspecified injury of head, subsequent encounter (6) Hypothyroid: Status: Chronic Code(s): E03.9 - Hypothyroidism, unspecified Qualifiers: Hypothyroidism type: acquired Qualified Code(s): E03.9 - Hypothyroidism, unspecified Plan: TSH was elevated. Levothyroxine dose increased from 25 mcg daily to 50 mcg daily. Will need a follow up TSH/T4 in 4-6 weeks. (7) Elevated TSH: Status: Acute Code(s): R79.89 - Other specified abnormal findings of blood chemistry (8) Concussion: Status: Inactive Code(s): S06.0XAA - Concussion with loss of consciousness status unknown, initial encounter Qualifiers: Encounter type: subsequent encounter Loss of consciousness presence/duration: without LOC Qualified Code(s): S06.0X0D - Concussion without loss of consciousness, subsequent encounter (9) Nausea and vomiting: Status: Resolved Code(s): R11.2 - Nausea with vomiting, unspecified Qualifiers: Vomiting type: unspecified Qualified Code(s): R11.2 - Nausea with vomiting, unspecified Plan: Resolved with discontinuation of Aricept and decreasing the dose of Prozac. May consider restarting Aricept at 5 mg as an OP to see if she can tolerate a lower dose without recurrent N/V. (10) Heme positive stool: Status: Acute Code(s): R19.5 - Other fecal abnormalities Plan: Heme positive stool but with no anemia. Will defer workup to her family practitioner. (11) HTN (hypertension): Status: Chronic Code(s): I10 - Essential (primary) hypertension Qualifiers: Hypertension type: unspecified Qualified Code(s): I10 - Essential (primary) hypertension Plan: Catecholamine driven. Good response to Coreg but, BP still goes up with anxiety and we have needed to give Hydralazine at times. doing better with the addition of Buspar to the drug regimen. On 5 mg BID at PR......will likely need to increase the dose going forward. Tolerating with no adverse side effects at the time of DC from rehab. (12) Lightheadedness: Status: Resolved Code(s): R42 - Dizziness and giddiness Plan: Dur to decreased intravascular volume at DC. Doing much better with fluid intake at the time of DC from rehab. (13) NAYA (obstructive sleep apnea): Status: Chronic Code(s): G47.33 - Obstructive sleep apnea (adult) (pediatric) Plan: Scheduled for a sleep study on 09/08/23 and then will follow up with pulmonary medicine. Discharging home on nasal O2 when sleeping. (14) Depression: Status: Chronic Code(s): F32.A - Depression, unspecified Qualifiers: Depression Type: unspecified Qualified Code(s): F32.A - Depression, unspecified Plan: Prozac dose decreased to 20 mg daily due to chronic N/V. No sx of depression at the time of DC from rehab. Anxiety is not adequately controlled even with the 40 mg dose of Prozac. Buspar was added to the drug regimen for better control of anxiety. (15) Anxiety: Status: Chronic Code(s): F41.9 - Anxiety disorder, unspecified Plan: Tolerating 5 mg BID of Buspar at PR but, anxiety is not yet adequately controlled. Will defer increasing the dose in another 5-[address] Cruz. Plan 1. DC home with [facility]. 2. Dtr will continue to fill pill boxes for her and her son will continue to manage her finances. 3. Would avoid medications on the Beer's list if at all possible 4. Sleep study tonight and then will follow up with pulmonary to discuss the results 5. No driving while she is in a cervical collar. I am recommending that in light of dementia/poor memory that prior to resuming driving she follow up with driving assessment program at [facility] to be evaluated to make sure she will be safe to drive. Information about the program and referral made about SW. 6. Has a follow up appt scheduled with Dr. Cruz. Will also need to follow up with Dr. Ferrara for the fracture of the dens. 7. Continue Atrovent nasal spray for chronic rhinitis rather than restarting an antihistamine to avoid sedation and falls. 8. She had N/V despite being on a PPI and a H2 yeni. N/V resolved with decreasing the dose of the Prozac and discontinuing the Aricept. Likely does not need both a PPI and a H2 yeni for GERD. Will defer to Dr. Cruz to make that determination. Medications at Discharge Home Medications famotidine 40 mg tablet 40 mg PO QHS GERD 06/11/22 mirabegron 50 mg tablet,extended release 24 hr (Myrbetriq) 50 mg PO DAILY OAB 06/11/22 pantoprazole 40 mg granules delayed-release for susp in packet 40 mg PO DAILY GERD 06/11/22 ezetimibe 10 mg tablet 10 mg PO DAILY cholestorol 03/28/23 albuterol sulfate 90 mcg/actuation aerosol inhaler 2 inh inhalation Q4H PRN SOB,Wheezing 08/23/23 acetaminophen 500 mg tablet 1,000 mg (2 x 500 mg) PO Q8 #180 tabs 09/07/23 carvedilol 6.25 mg tablet 6.25 mg PO BIDCM #60 tabs 09/07/23 fluoxetine 20 mg capsule (Prozac) 20 mg PO DAILY #30 caps 09/07/23 ipratropium bromide 42 mcg (0.06 %) nasal spray 2 spray NASAL TID #1 BOTTLE 09/07/23 levothyroxine 50 mcg tablet 50 mcg PO DAILY@0600 #30 tabs 09/07/23 polyethylene glycol 3350 17 gram/dose oral powder (Miralax) 17 g PO BID #850 grams 09/07/23 tramadol 50 mg tablet 50 mg PO TID PRN Pain Score 4-10 #21 tabs 09/07/23 Hospital Course Operations None Procedures None Summary of Care Provided Minutes Spent on Discharge: 45 Hospital Course: GEORGINA SEGURA, is a 78 YO F with a past medical history of asthma, osteoarthritis, dementia without behavioral disturbance, chronic depression, GERD, history of a skull fracture in February 2023 secondary to fall, hyperlipidemia, hypothyroidism, chronic tremors of the right upper extremity, chronic rhinitis, chronic nausea/vomiting (was on Meloxicam at home prior to to the most recent fall), irritable bowel syndrome, neurogenic bladder, sleep apnea (noncompliant with CPAP due to claustrophobia) and urinary incontinence who presented to the emergency department at [facility] on 08/20/2023 after a fall at home. She has a history of frequent falls and in fact had a fall 2-3 weeks prior to the ED visit and had neck pain but, she did not seek medical attention for it. She complained of headache at presentation to the ED denied she had loss of consciousness. On physical examination cranial nerves II through XII are grossly intact and she had no focal neurologic deficits. Noncontrast brain CT showed no acute intracranial abnormalities. 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 She had prominent spondylosis with multilevel spinal and neuroforaminal stenoses. Lab was significant for acute renal failure with a creatinine of 1.38 and a BUN of 29. She had 4 radha to close a laceration in the occipital area and she was transferred to [facility]. She did not require surgery. The cervical spine was immobilized with a Bryant cervical collar. She was seen by PT/OT and acute inpt rehab was recommended at [place] from [facility]. She was transferred to the acute inpt rehab unit at [facility] on 08/23/23 for 3 hours of therapy daily to restore function at or near her level prior to the fall/fracture. An overnight trending pulse ox was done at presentation to rehab and it showed that the pulse ox was 88% or last 30% of the time that she was monitored. She was started on nasal O2 while sleeping and this significantly improved her confusion, drowsiness and performance in therapy. We also discontinued some of the sedating medications she had been taking as an OP. She had N/V and stomach discomfort the first few days she was on rehab despite being on a PPI and H2 yeni. Aricept was held and the dose of the Prozac was decreased to 20 mg daily. N/V resolved. She has not really been symptomatically depressed but, she is quite anxious and Prozac was not adequately controlling this. Her BP is very sensitive to any increase in anxiety. BP's were consistently significantly elevated and she was started on Coreg. the Coreg has been effective in bringing the BP down but, she still is getting Hydralazine usually once a day for elevated BP's. I suspect once the anxiety is under control the BP will be controlled at the current dose of Coreg which is 6.25 mg BID. Georgina did well in the therapy. At the time of DC from rehab she is modified independent with grooming, eating, bathing, upper body and lower body dressing, toileting and toilet transfer. She is supervision/set up for tub/shower transfer. She is able to do 12 sit to stands in 30 seconds using her bilateral upper extremities. She is able to ascend/descend three 4 inch steps and two 6 inch steps with 2 handrails at standby assist. She is ambulated with a straight cane on various surfaces for 930 feet at modified [facility]. Georgina was discharged from acute rehab on 09/08/23 and was sent to the sleep lab for a split sleep study. She will follow up with pulmonary medicine following the sleep study. Home O2 has been arranged and she will use the oxygen anytime she is sleeping. She and her family were instructed that she is not to drive while she has a cervical collar on and Dr. Ferrara will let her know when it is safe to remove the collar. I also recommended that prior to her resuming driving she attend the local company hazmat driver evaluation program for physically and mentally impaired drivers at [facility] to make sure that she is safe to drive. A referral was made to the program and a handout was given to the patient telling her about the program. She is much more alert at discharge than she was at admission and I think she she will probably be safe for community driving. She has follow appts scheduled with Dr. Cruz and Dr. Ferrara. she should have a TSH and a T4 repeated in 4-6 weeks since the levothyroxine dose was changed. Would recommend avoiding use of medications on the Beer's list in this elderly pat with dementia and frequent falls. Physical Exam Const alert and oriented x3 Constitutional Narrative: Making good eye contact when talking with me. Still very forgetful and asks me the same question not even 3 minutes I answered the question. General Appearance: cooperative HEENT moist oral mucous membranes HEENT Narrative: No evidence of thrush. Eyes PERRL and EOMs intact bilaterally Neck Neck Narrative: Bryant collar is in place. Resp normal respiratory effort, normal air movement and clear to auscultation bilaterally Resp Narrative: Able to speak in complete sentences with no conversational dyspnea. Effort and Inspection: Negative for tachypneic Cardio regular rate, regular rhythm, no murmurs, no rub and no gallops Cardio Narrative: No ectopy GI normal to inspection, nondistended, normoactive bowel sounds, soft to palpation and non-tender GI Narrative: No guarding with palpation. Denies nausea. Extremity no calf tenderness Extremity Narrative: Trace edema in the ankles. Compression stockings are on. I recommended she continue use of the compression stockings at home to control LE edema due to venous insufficiency. General Extremity: Negative for clubbing or cyanosis Skin General Skin Exam: no breakdown Rashes: no rashes Neuro Neuro Narrative: Has tremors of the RUE and this is chronic. Psych cooperative Psych Narrative: Anxious about the sleep study and about going home. sleeping well at night and has a good appetite. Making good eye contact when talking with staff and has been interacting with staff and other patients on a regular basis. Not tearful. Very motivated to get better and get home. Appearance: appropriate Weight / BMI Weight Weight: 178 lb 5.663 oz Body Mass Index (BMI) 31.6 ABG / Lab / Microbiology Data 08/24/23 05:35 09/05/23 05:10 Microbiology: Microbiology 08/24/23 13:37 Stool Stool Occult Blood (STEFANY) - Final Occult Blood Positive D/C Instructions Discharge Diet: - (Low fat, low salt) Weight Bearing Status: Full weight bearing Keep extremity elevated above heart level: Legs Call your doctor if you observe: Fever of 101 or Higher, Inability to urinate, Shortness of breath, Dizziness, Fainting spells, Swelling in the ankles, Chest pain, Increased palpitations (irregular heartbeat), Calf discomfort and Uncontrolled pain Pending Tests Upon Discharge: none Please Follow Up With: Richard Cruz MD When: Has an appt scheduled for near future. Meaningful Use Info Meaningful Use Meaningful Use Diagnoses (Choose all that apply): None applicable Ischemic Stroke Statin Dosing Therapy Reference: STATIN DOSE THERAPY REFERENCE: * Patients > 75 years receive moderate or high dose statin therapy. * Patients 75 years or YOUNGER should receive HIGH intensity statin dose unless contraindicated. You will be required to document reason for non-treatment if statin daily dose does not meet guidelines. HIGH DOSE STATIN THERAPY DAILY Atorvastatin > than or = to 40 mg Rosuvastatin > than or = to 20 mg Amlodipine + Atorvastatin > than or = to 2.5/40 mg Ezetimibe + Simvastatin 10/80 mg Simvastatin 80mg Discharge Plan Admission Admit Date/Time: 08/23/23 15:33 Primary Reason for Your Visit: Debility due to fall with fracture of the Dens. Attending Provider: Marina Gotti Primary Care Provider: Richard Cruz Instructions Patient Instructions: What Are Snoring and Sleep Apnea?, Preventing Falls in the Home, Exercises to Prevent Falls Additional Instructions / Restrictions: 1. You have done very well in therapy! In order to maintain your stability with walking and strength you should start a regular exercise program at home. I have given you some printed information on an exercise program and The therapists have also talked with you about exercises to do once you are home. If you are not active and you sit around a lot then you will lose your strength and this will lead to more falls. You must USE IT OR LOSE IT Marina! This is especially important for you because I know you want to stay in your home and not have to go to a nursing facility. Falls lead to fractures and fractures lead to surgeries and increased disability. I have given you some information on how to prevent falls in the home. 2. There are a few things that have been contributing to memory loss besides dementia. Other things that contribute to loss of memory include an underactive thyroid, untreated sleep apnea, depression and lack of socialization. You were not taking quite enough thyroid supplement and we have increased the dose. Dr. Cruz will want to recheck your thyroid lab tests in another 4-6 weeks to make sure that you are on an appropriate dose. Over time the dose can change. Your oxygen was lower than it should be 30% of the time when you were sleeping. When the oxygen drops that low your brain wakes you up to take a deep breath and you don't get into stage 4 sleep (also called REM sleep). This causes chronic sleep deprivation and can lead to problems with the rhythm of your heart, strokes, restless legs, daytime sleepiness/napping, memory loss, etc. You became much more alert and able to remember from one day to the next what the therapists were telling you to do. We ALL noticed a big difference after you were on the oxygen at night for a few days. You will have a sleep study the night you are discharged from rehab and then follow up with the pulmonary doctor to discuss the results of the sleep study. 3. I don't think your dementia is as bad as everyone thought. I think it is a good idea for your daughter to continue setting up your medications for you and your son continues to manage your finances. I would recommend following up with a neurologist for some testing and recommendations on medications. I stopped the Aricept (donepezil) while you were on rehab. I stopped it to see if the Nausea and vomiting would resolve. GI upset is one of the most frequent side effects of that medication. If the neurologist thinks you need to be on Aricept prehaps you will tolerate a lower dose (like 5 mg a day). I also decreased the dose of Prozac because up to 29% of patients have nausea with Prozac. Fortunately with the changes in the medication the nausea and vomiting have gone away. You are taking 20 mg of Prozac daily now and your mood is good. You do get anxious and this is very common in the elderly, ayush those living alone. When you get anxious your BP increases significantly and we have had to start you on a BP pill. You worry about being alone, about having enough money to live on, about losing your memory and having to live in a intermediate, about your children and your grandchildren, about people trying to cheat you and take advantage of you and the list goes on. I have started you on a medication called Buspar. this medication treats only anxiety and it is not addictive. You take just take when you think you need it.....you have to take it 2-3 times a day as directed. I started you on twice a day and you have been tolerating it well. If things change when you go home Dr. Cruz may have to increase the dose to 3 times a day and you should let him know how you are felling and what you are worried about. 4. It has been a pleasure meeting you and your family Marina. If you or your family have any questions following discharge from rehab please do not hesitate to call me. OFFICE: [phone] CELL: [phone] Discharge Orders/Prescriptions Prescriptions: New fluoxetine [Prozac] 20 mg capsule 20 mg PO DAILY Qty: 30 0RF carvedilol 6.25 mg Tablet 6.25 mg PO BIDCM Qty: 60 0RF tramadol 50 mg Tablet 50 mg PO TID PRN (Reason: Pain Score 4-10) Qty: 21 0RF Rx Instructions: 1 tab every 8 hours as needed for pain >3/10 acetaminophen 500 mg Tablet 1,000 mg PO Q8 Qty: 180 0RF levothyroxine 50 mcg Tablet 50 mcg PO DAILY@0600 Qty: 30 0RF ipratropium bromide 42 mcg (0.06 %) [place],Non-Aerosol 2 spray NASAL TID Qty: 1 0RF polyethylene glycol 3350 [Miralax] 17 gram/dose powder 17 g PO BID Qty: 850 0RF Continued famotidine 40 mg Tablet 40 mg PO QHS pantoprazole [address] [place] Susp In Packet 40 mg PO DAILY Myrbetriq 50 mg Tablet Extended Release 24 Hr 50 mg PO DAILY ezetimibe 10 mg tablet 10 mg PO DAILY albuterol sulfate 90 mcg/actuation HFA aerosol inhaler 2 inh inhalation Q4H PRN (Reason: SOB,Wheezing) Discontinued fluoxetine 40 mg Capsule 40 mg PO DAILY donepezil 10 mg Tablet 10 mg PO DAILY levothyroxine [Synthroid] 25 mcg Tablet 25 mcg PO DAILY tramadol 50 mg tablet 50 mg PO Q6H PRN (Reason: pain) oxybutynin chloride 10 mg tablet extended release 24hr 10 mg PO DAILY Referrals / Follow Up: Lab,Sleep [Other] - 09/08/23 8:00 pm (d/c 8pm to sleep lab ) Bro Ferrara [Other] - 09/16/23 10:00 am (Need to do Xray prior to appointment. Can go to any [facility] Location) Richard Cruz MD [Primary Care Provider] - 09/12/23 9:20 am Disposition Disposition (needs filled in before D/C Order can be placed): Home Health Service Charges/Coding Visit Charges Inpatient E&M: 28906 Disch Hosp >30min
[2023-09-07] MEDS: guaiFENesin 10 ML UDC (200MG/10ML) GT ×2 (14:27→22:10)
[2023-09-07] MEDS: Famotidine 20 MG Tablet 40 MG PO (21:53)
[2023-09-08] MEDS: Levothyroxine 50 MCG Tablet PO (05:56)
[2023-09-08] MEDS: Ipratropium Bromide 0.06% NASAL SPRAY 2 SPRAY NASAL ×2 (05:56→19:51)
[2023-09-08] MEDS: Acetaminophen 500 MG Tablet 1000 MG PO ×3 (05:56→19:52)
[2023-09-08 06:00] VITALS: BP 169/97; PULSE 83; RESP 16; TEMP 36.4; O2SAT 96; BMI 31.4
[2023-09-08 06:12] VITALS: BP 169/97; PULSE 84
[2023-09-08] MEDS: hydrALAZINE 25 MG Tablet PO (06:12)
[2023-09-08 07:11] VITALS: BP 148/83; PULSE 90
[2023-09-08] MEDS: Vibegron 75 MG TABLET PO (08:04)
[2023-09-08] MEDS: Carvedilol 6.25 MG Tablet PO ×2 (08:04→16:20)
[2023-09-08] MEDS: Pantoprazole Sodium 40 MG Tablet PO (08:04)
[2023-09-08] MEDS: FLUoxetine 10 MG Capsule 30 MG PO (08:04)
[2023-09-08] MEDS: Ezetimibe 10 MG Tablet PO (08:04)
[2023-09-08] MEDS: Senna/Docusate Sodium 1 Tablet 2 TABLET PO (08:05)
--- NOTE | 2023-09-08 09:58 | CASEMGMT ---
Addendum entered by Nikki Dickey 09/08/23 15:43: Correction: [facility] to delivery Home O2 to home when patient discharge to home. Addendum entered by Nikki Dickey 09/08/23 15:39: 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 Patient was provided information regarding [facility] Drivers Rehabilitation. Patient is awaiting delivery of Home O2 at bedside from [facility]. Addendum entered by Nikki Dickey 09/08/23 12:25: SW submitted DME order to [facility] for 2L oxygen Physician informed SW that she would like patient to discharge with resources for [employer] to be provided to patient and family. SW to provide information to patient and family. Original Note: Social Work SW met with patient at bedside to review discharge disposition. Patient informed SW that she anticipates discharge home with daughter and home health care. Patient informed SW that her goal is to continue exercising at home. SW reviewed home health care PT/OT/ST/SN via [facility]. SW inquired about patient preference for DME provider. Patient informed SW that she has no preference for DME provider. Patient completed BIM (04/22) and PhQ-2 (1). Patient denies any concerns at this time. SW met with physician, Dr. Gotti to discuss overnight pulse Ox. Patient still requires physician review of O2 evaluation. JOSEFINA Young
[2023-09-08 10:00] VITALS: BP 141/78; PULSE 94
--- NOTE | 2023-09-08 11:39 | PCM.PROGNOTE ---
Subjective Subjective I reviewed the overnight trending pulse ox. she had desaturation of 88% and less for just over 5% of the time she was monitored. She had 1 desaturation event with O2 sat of 72% for over 60 sec. Will need home O2. Has sleep study scheduled for tonight and following the sleep study will follow up with pulmonary medicine to discuss the results. The overnight pulse ox has improved somewhat since admission when she was 88 or less 30% of the time she was monitored and I suspect this has everything to do with discontinuing some of the sedating medications she was taking. Objective Data Objective Data Vital Signs: Vital Signs Temp Pulse Resp BP Pulse Ox O2 Del Method O2 Flow Rate 97.6 F L 94 16 141/78 H 96 Room Air 2 09/08/23 06:00 09/08/23 10:00 09/08/23 06:00 09/08/23 10:00 09/08/23 06:00 09/08/23 06:00 09/05/23 22:00 FiO2 21 09/07/23 21:40 Oxygen Flow Rate (L/min) 2 Oxygen Delivery Method Room Air Weight: 177 lb 4.026 oz Body Mass Index (BMI) 31.4 Intake & Output: Intake and Output for Last 24 Hours 09/06/23 09/07/23 09/08/23 23:59 23:59 23:59 Intake Total 1370 / 1370 1510 / 1510 590 / 590 Output Total 1150 / 1150 650 / 650 400 / 400 Balance 220 / 220 860 / 860 190 / 190 Lab / Micro Data 08/24/23 05:35 09/05/23 05:10 Micro: Microbiology 08/24/23 13:37 Stool Stool Occult Blood (STEFANY) - Final Occult Blood Positive
[2023-09-08] MEDS: guaiFENesin 10 ML UDC (200MG/10ML) GT ×2 (14:19→20:21)
[2023-09-08 17:52] VITALS: BP 142/82; PULSE 84; RESP 16; TEMP 36.2; O2SAT 95
[2023-09-08] MEDS: Famotidine 20 MG Tablet 40 MG PO (19:51)
[2023-09-08 20:00] VITALS: BP 126/70; PULSE 80; RESP 16; TEMP 36.4; O2SAT 97
--- NOTE | 2023-09-08 20:15 | NURSING ---
Discharge at this time and prior nurse did DC instruct with patient and her daughter.
== END 2023-09-08 20:25 | disposition home health service (06) | DRG 561 ==
PROVIDERS: Admitting Provider Internal Medicine; PCP Family Medicine; Visit Provider Internal Medicine
DX: S12.190D Other displaced fracture of second cervical vertebra, subsequent encounter for fracture with routine healing (principal); E03.9 Hypothyroidism, unspecified; E11.22 Type 2 diabetes mellitus with diabetic chronic kidney disease; F03.90 Unspecified dementia, unspecified severity, without behavioral disturbance, psychotic disturbance, mood disturbance, and anxiety; J45.909 Unspecified asthma, uncomplicated; I10 Essential (primary) hypertension; F32.A Depression, unspecified; E78.00 Pure hypercholesterolemia, unspecified; K21.9 Gastro-esophageal reflux disease without esophagitis; W19.XXXD Unspecified fall, subsequent encounter; G47.33 Obstructive sleep apnea (adult) (pediatric); J31.0 Chronic rhinitis; F41.9 Anxiety disorder, unspecified; S06.0X0D Concussion without loss of consciousness, subsequent encounter; S01.01XD Laceration without foreign body of scalp, subsequent encounter; Z79.899 Other long term (current) drug therapy; Z79.890 Hormone replacement therapy; N31.9 Neuromuscular dysfunction of bladder, unspecified; N32.89 Other specified disorders of bladder; R29.6 Repeated falls
CPT/HCPCS: 36415; 70450; 72125; 74018; 80048; 80053; 81001; 82274; 83036; 83690; 83735; 84100; 84443; 85025; 85610; 92507; 92523; 92526; 94762; 96361; 96374; 96375; 96376; 97110; 97116; 97129; 97130; 97162; 97166; 97530; 97535; 97802; 99283; J7040; A4216; J2405

== ENCOUNTER → 2023-09-08 | Outpatient (CLI) | payer MEDICARE, OTHER, SELFPAY | END | disposition home or self-care (01) | LOC: SL 20:07 | PROVIDERS: PCP Family Medicine; Referring Provider Internal Medicine; Visit Provider Internal Medicine | DX: G47.33 Obstructive sleep apnea (adult) (pediatric) (principal) | CPT/HCPCS: 95811 ==

== ENCOUNTER → 2024-02-06 | Outpatient (CLI) | payer MEDICARE, OTHER, SELFPAY | END | disposition home or self-care (01) | LOC: SL 11:29 | PROVIDERS: PCP Family Medicine; Referring Provider Nurse Practitioner Acute Care; Visit Provider Nurse Practitioner Acute Care | DX: G47.30 Sleep apnea, unspecified (principal) | CPT/HCPCS: 98960; G0463 ==

== ENCOUNTER 2024-08-12 11:29 | Emergency (ER) | payer MEDICARE, OTHER, SELFPAY ==
[2024-08-12 11:30] VITALS: BP 159/81; PULSE 84; RESP 16; TEMP 36.6; O2SAT 94
[2024-08-12 11:32] VITALS: BMI 35.3
--- NOTE | 2024-08-12 12:04 | ED.VIS.FALL ---
HPI HPI - Fall History of Present Illness Chief Complaint: Fall Informant: patient Occured/Mechanism Occurred: Days (2 days ago) Narrative: Patient presents with a fall that occurred 2 days ago. Patient states she actually fell twice. Patient states the first time she fell out of bed. Patient states the second time she was standing and turned when she fell. Patient states her pain is mainly over her lower back. Patient describes it as aching. Patient states it is worse with movement. Patient denies any paresthesias or weakness. Patient states she hit her head the first time she fell but denies any loss of consciousness. Patient denies any other injuries. Pain/Injury Pain Location: back Quality of Pain: Aching Worsened by: Movement Relieved by: Rest Associated Symptoms Associated Symptoms: Negative for Parasthesias, Weakness, Loss of function, Inability to ambulate, Loss of consciousness or Amnesia PFSH PFSH Medical History NAYA (obstructive sleep apnea) Noncompliance with CPAP treatment Venous insufficiency (chronic) (peripheral) Dementia Dehydration Neurogenic bladder Frequent falls Glucose intolerance (impaired glucose tolerance) Loss of hearing Post-menopausal Ambulates with cane Arthritis Back pain Injury of head and neck Asthma CPAP (continuous positive airway pressure) dependence History of pain when walking Wears glasses Depression Overactive bladder High cholesterol Easy bruising Non-smoker PONV (postoperative nausea and vomiting) GERD (gastroesophageal reflux disease) Hypothyroid Home Medications ?Medication ?Instructions ?Recorded ?Last Taken ?Type famotidine 40 mg tablet 40 mg PO QHS GERD 06/11/22 Unknown History mirabegron 50 mg tablet,extended 50 mg PO DAILY OAB 06/11/22 Unknown History release 24 hr (Myrbetriq) pantoprazole 40 mg granules 40 mg PO DAILY GERD 06/11/22 08/23/23 History delayed-release for susp in packet ezetimibe 10 mg tablet 10 mg PO DAILY cholestorol 03/28/23 08/23/23 History albuterol sulfate 90 mcg/actuation 2 inh inhalation Q4H PRN 08/23/23 Unknown History aerosol inhaler SOB,Wheezing acetaminophen 500 mg tablet 1,000 mg (2 x 500 mg) PO Q8 #180 09/07/23 Unknown Rx tabs carvedilol 6.25 mg tablet 6.25 mg PO BIDCM #60 tabs 09/07/23 Unknown Rx fluoxetine 20 mg capsule (Prozac) 20 mg PO DAILY #30 caps 09/07/23 Unknown Rx ipratropium bromide 42 mcg (0.06 2 spray NASAL TID #1 BOTTLE 09/07/23 Unknown Rx %) nasal spray levothyroxine 50 mcg tablet 50 mcg PO DAILY@0600 #30 tabs 09/07/23 Unknown Rx polyethylene glycol 3350 17 17 g PO BID #850 grams 09/07/23 Unknown Rx gram/dose oral powder (Miralax) hydrocodone-acetaminophen 5-325mg 1 tab PO Q6H PRN PRN Pain 3 days 08/12/24 Unknown Rx 5mg-325mg #10 TABLETS solifenacin 10 mg tablet 10 mg PO DAILY 08/12/24 Unknown History Allergy/AdvReac Type Severity Reaction Status Date / Time rofecoxib (From Vioxx) Allergy Unknown Verified 08/12/24 11:32 Surgical History Hx of surgical biopsy History of bladder surgery History of partial hysterectomy History of appendectomy History of cholecystectomy H/O lateral meniscus repair of right knee Social History housing: house Smoking Status: Never smoker second hand exposure: Yes substance use type: does not use ROS ROS ED Constitutional Constitutional ED: Denies chills or fever(s) Eyes Eyes: Denies blurry vision or change in vision ENT ENT ED: Denies rhinorrhea or sore throat Cardiovascular Cardiovascular: Denies chest pain or palpitations Respiratory/Chest Respiratory/Chest: Reports cough; Denies dyspnea Gastrointestinal Gastrointestinal: Reports diarrhea; Denies nausea or vomiting Genitourinary Genitourinary ED: Denies dysuria or hematuria Musculoskeletal Musculoskeletal: Reports back pain; Denies neck pain Integumentary Denies abscess or rash Neurologic Neurologic: Denies headache(s) or weakness Allergic/Immunologic Allergic/Immunologic ED: Denies mouth swelling or urticaria EXAM Physical Exam Const Vital Signs: 08/12/24 11:30 08/12/24 11:42 Temperature 97.9 F Temperature Source Oral Pulse Rate 84 Respiratory Rate 16 Respiratory Effort Normal Respiratory Depth Normal Respiratory Pattern Normal Blood Pressure 159/81 H Blood Pressure Mean 107 Pulse Ox 94 Oxygen Delivery Method Room Air Room Air Positive well nourished and well developed Constitutional Narrative: BMI is 35.3 General Appearance ED: well developed HEENT Reports normocephalic atraumatic Neck full ROM and supple Resp normal respiratory effort and clear to auscultation bilaterally Cardio regular rate and regular rhythm GI non-tender and non-distended Palpation: soft Back/Spine Back/Spine Narrative: There is tenderness over the lower lumbar spine and paraspinal muscles. There is no edema or ecchymosis. There is no bony crepitance or step-off. Range of motion was limited in all motions of the lumbar spine secondary to pain. Straight leg raises were negative bilaterally. Lumbar Spine / Lower Back: lumbar spinal tenderness, paraspinal muscle tenderness and straight leg raise negative bilaterally Neuro oriented x3, CN's II-XII intact bilaterally, moves all extremities, no focal motor deficits and no sensory deficits noted [place] Coma Scale: document GCS findings Spontaneous Obeys Commands Oriented 15 Sensorium / Orientation: alert Motor Exam: strength 5/5 throughout Psych mental status grossly normal and thought process normal MDM MDM MDM Narrative Medical decision making narrative: Differential diagnosis includes lumbar compression fracture, spondylolisthesis, and lumbosacral strain. X-rays of the lumbar spine will be obtained to assess for spondylolisthesis and lumbar compression fracture. Radiography Diagnostic Testing: Clinical Impression(s) from Imaging Studies Lumbar Spine X-Ray 08/12/24 12:24 IMPRESSION: Degenerative changes. No acute fracture. Reading Location: [facility] X-rays of the lumbar spine were obtained. There are 3 views. On my independent interpretation, there is no acute fracture. There is a grade 1 spondylolisthesis at L3-L4 and a grade 1 spondylolisthesis at L4-L5. There is no acute abnormality noted. There are some degenerative changes. Radiologist also interpreted the x-rays and agrees. Treatment and Re-Evaluation Narrative: Patient was advised of her findings. Patient was advised that this is most likely muscular strain. The patient was instructed to use ice to the area. Patient was instructed to follow-up with her primary care physician in 5 to 7 days. Patient understood and was agreeable with the plan. All questions were answered. Discharge Plan Triage Chief Complaint: Fall ED Provider: Nic Chicas Dx/Rx/DC Orders Clinical Impression: Acute myofascial strain of lumbosacral region, HTN (hypertension) Instructions: ED Back Sprain/Strain Prescriptions: New hydrocodone-acetaminophen 5-325 mg tablet 1 tab PO Q6H PRN PRN (Reason: Pain) 3 Days Qty: 10 0RF No Action famotidine 40 mg Tablet 40 mg PO QHS pantoprazole [address] For Susp In Packet 40 mg PO DAILY Myrbetriq 50 mg Tablet Extended Release 24 Hr 50 mg PO DAILY ezetimibe 10 mg tablet 10 mg PO DAILY albuterol sulfate 90 mcg/actuation HFA aerosol inhaler 2 inh inhalation Q4H PRN (Reason: SOB,Wheezing) fluoxetine [Prozac] 20 mg capsule 20 mg PO DAILY Qty: 30 0RF carvedilol 6.25 mg Tablet 6.25 mg PO BIDCM Qty: 60 0RF acetaminophen 500 mg Tablet 1,000 mg PO Q8 Qty: 180 0RF levothyroxine 50 mcg Tablet 50 mcg PO DAILY@0600 Qty: 30 0RF ipratropium bromide 42 mcg (0.06 %) [place],Non-Aerosol 2 spray NASAL TID Qty: 1 0RF polyethylene glycol 3350 [Miralax] 17 gram/dose powder 17 g PO BID Qty: 850 0RF solifenacin 10 mg tablet 10 mg PO DAILY Primary Care Provider: Richard Cruz Referrals: Richard Cruz MD [Primary Care Provider] - Print Language: Fijian Disposition Disposition: Home, Self Care
--- NOTE | 2024-08-12 12:24 | RAD_ITS ---
PROCEDURE: LUMBAR SPINE 2 OR 3 VIEWS 08/12/2024 REASON FOR EXAM: INJURY/PAIN TECHNIQUE: 3 view(s) of the lumbar spine COMPARISON: None. FINDINGS: Vertebrae: The vertebral body heights are maintained. No acute fracture. Discs: Mild-moderate multilevel disc space narrowing. Alignment: Mild leftward curvature of the lumbar spine. Grade 1 retrolisthesis of L3 onto L4, and L4 onto L5. no traumatic listhesis. Other: Calcific plaque of the abdominal aorta. Partially visualized battery pack and stimulator overlying the sacrum. The visualized SI joints are maintained. RAD/Lumbar Spine 2 or 3 Views IMPRESSION: Degenerative changes. No acute fracture. Reading Location: [id number]
[2024-08-12 13:02] VITALS: BP 159/81; PULSE 84; RESP 16; TEMP 36.6; O2SAT 94
[2024-08-12] MEDS: HYDROcodone Bitartrate/Apap 5/325 Tablet PO (13:13)
== END 2024-08-12 13:18 | disposition home or self-care (01) ==
PROVIDERS: Emergency Provider Emergency Medicine; PCP Family Medicine; Visit Provider Emergency Medicine
DX: S39.012A Strain of muscle, fascia and tendon of lower back, initial encounter (principal); F03.93 Unspecified dementia, unspecified severity, with mood disturbance; W19.XXXA Unspecified fall, initial encounter; W06.XXXA Fall from bed, initial encounter; M43.16 Spondylolisthesis, lumbar region; I10 Essential (primary) hypertension; I87.2 Venous insufficiency (chronic) (peripheral); K21.9 Gastro-esophageal reflux disease without esophagitis; E03.9 Hypothyroidism, unspecified; E78.00 Pure hypercholesterolemia, unspecified; G47.33 Obstructive sleep apnea (adult) (pediatric); N32.81 Overactive bladder; J45.909 Unspecified asthma, uncomplicated; Z90.49 Acquired absence of other specified parts of digestive tract; Z79.899 Other long term (current) drug therapy; Z79.890 Hormone replacement therapy
CPT/HCPCS: 99282; 72100

== ENCOUNTER 2024-08-13 18:48 | Inpatient (IN) | payer MEDICARE, OTHER, SELFPAY ==
[2024-08-13 18:49] VITALS: BP 134/68; PULSE 88; RESP 19; TEMP 36.4; O2SAT 92
[2024-08-13 18:51] VITALS: BMI 35.3
--- NOTE | 2024-08-13 20:00 | ED.VIS.BACK ---
HPI History of Present Illness Chief Complaint: Back [facility] Medical History NAYA (obstructive sleep apnea) Noncompliance with CPAP treatment Venous insufficiency (chronic) (peripheral) Dementia Dehydration Neurogenic bladder Frequent falls Glucose intolerance (impaired glucose tolerance) Loss of hearing Post-menopausal Ambulates with cane Arthritis Back pain Injury of head and neck Asthma CPAP (continuous positive airway pressure) dependence History of pain when walking Wears glasses Depression Overactive bladder High cholesterol Easy bruising Non-smoker PONV (postoperative nausea and vomiting) GERD (gastroesophageal reflux disease) Hypothyroid Home Medications ?Medication ?Instructions ?Recorded ?Last Taken ?Type famotidine 40 mg tablet 40 mg PO QHS GERD 06/11/22 Unknown History mirabegron 50 mg tablet,extended 50 mg PO DAILY OAB 06/11/22 Unknown History release 24 hr (Myrbetriq) pantoprazole 40 mg granules 40 mg PO DAILY GERD 06/11/22 08/23/23 History delayed-release for susp in packet ezetimibe 10 mg tablet 10 mg PO DAILY cholestorol 03/28/23 08/23/23 History albuterol sulfate 90 mcg/actuation 2 inh inhalation Q4H PRN 08/23/23 Unknown History aerosol inhaler SOB,Wheezing acetaminophen 500 mg tablet 1,000 mg (2 x 500 mg) PO Q8 #180 09/07/23 Unknown Rx tabs carvedilol 6.25 mg tablet 6.25 mg PO BIDCM #60 tabs 09/07/23 Unknown Rx fluoxetine 20 mg capsule (Prozac) 20 mg PO DAILY #30 caps 09/07/23 Unknown Rx ipratropium bromide 42 mcg (0.06 2 spray NASAL TID #1 BOTTLE 09/07/23 Unknown Rx %) nasal spray levothyroxine 50 mcg tablet 50 mcg PO DAILY@0600 #30 tabs 09/07/23 Unknown Rx solifenacin 10 mg tablet 10 mg PO DAILY 08/12/24 Unknown History polyethylene glycol 3350 17 17 g PO BID PRN constipation 08/13/24 Unknown History gram/dose oral powder (Miralax) Allergy/AdvReac Type Severity Reaction Status Date / Time rofecoxib (From Vioxx) Allergy Unknown Verified 08/13/24 18:49 Surgical History Hx of surgical biopsy History of bladder surgery History of partial hysterectomy History of appendectomy History of cholecystectomy H/O lateral meniscus repair of right knee Social History housing: house Smoking Status: Never smoker second hand exposure: Yes substance use type: does not use EXAM Physical Exam Const Vital Signs: 08/13/24 18:49 08/13/24 20:43 08/13/24 20:43 Temperature 97.5 F L Temperature Source Temporal Pulse Rate 88 Respiratory Rate 19 H Blood Pressure 134/68 H Blood Pressure Mean 90 Pulse Ox 92 80 92 Oxygen Delivery Method Room Air Room Air Nasal Cannula Oxygen Flow Rate (L/min) 2 08/13/24 22:45 08/13/24 23:47 Temperature Temperature Source Pulse Rate 88 85 Respiratory Rate 18 22 H Blood Pressure 120/63 148/78 H Blood Pressure Mean 82 101 Pulse Ox 96 96 Oxygen Delivery Method Nasal Cannula Nasal Cannula Oxygen Flow Rate (L/min) 2 2 MDM MDM MDM Narrative Medical decision making narrative: HISTORY OF PRESENT ILLNESS: Chief complaint: Back pain 79-year-old female present back pain is now resolved. Notes lower midsternal back pain that got worse after recent fall where she received an x-ray for. She states she has no bowel or bladder incontinence, no urinary retention, no loss of motor sensation in her legs. She notes pain in the flank area when asked to locate her pain. She denies vomiting. Denies chest pain or shortness of breath. Denies abdominal pain but does note some abdominal fullness. REVIEW OF SYSTEMS: Pertinent positives: Back pain, abdominal pain, flank pain Pertinent negatives: Vomiting, chest pain PHYSICAL EXAM: Nursing triage notes reviewed, Vital signs reviewed Constitutional: please see mdm HENT: MMM Eyes: Pupils equal round and reactive to light, Extraocular muscles intact Neck: No stridor, no JVD, full neck ROM Lungs: Clear to auscultation, No wheezing or rales. No increased work of breathing, no conversational dyspnea, no accessory muscle use, no nasal flaring. No respiratory distress noted Heart: Regular rate and rhythm, No murmurs, No rubs and No gallops, 2+ distal pulses (radial, femoral, posterior tibial) in all extremities Abdomen: Soft, there is no tenderness slight distention, rigidity, rebound or guarding, no obvious peritoneal signs, no palpable pulsatile abdominal masses, no auscultated abdominal bruit : No CVAT Extremities: No edema Neuro: Intact sensation L1-S1 dermatomal distributions. Intact 5/5 strength in hip flexion (T12-L3). Knee extension (L2-L4). Ankle dorsiflexion (L4-L5). Ankle plantar flexion (S1). Great toe extension (L5). 2+ patellar and Achilles DTRs. Skin: No rash or lesions noted MEDICAL DECISION MAKING: Chief Complaint: please see HPI External records reviewed: Reviewed prior imaging studies: Reviewed x-rays of lumbar spine from August 12, 2024 which showed no acute fracture Factors affecting care: Hypertension, anxiety, neurogenic bladder, Social determinants of health: none History obtained from others: Family Consults: Internal medicine (Dr. Denson) MDM Narrative: The patient was initially hemodynamically stable, afebrile and nontoxic-appearing. Exam without focal cardiopulmonary maladies. Abdomen was slightly distended but nontender to palpation I considered the following differential diagnosis: Intra-abdominal surgical pathology, nephrolithiasis, fractures location lumbar spine, pneumonia, ACS, arrhythmia, anemia, UTI, PE I obtained a broad lab and imaging workup that initially consisted of CT scan abdomen pelvis, CT scan lumbar spine, labs including troponin, EKG, urinalysis ALL IMAGES (IF OBTAINED) HAVE BEEN PERSONALLY REVIEWED AND INTERPRETED BY MYSELF. EKG with normal sinus rhythm, normal axis, normal intervals, no STEMI CBC without leukocytosis, severe anemia, no thrombocytopenia. BMP without evidence of significant electrolyte abnormalities, no anion gap, no acute kidney injury. Baseline CKD LFTs show no evidence of hepatobiliary pathology. High-sensitivity troponin is negative, no evidence of myocardial ischemia BNP within normal suggestive of no heart failure Urinalysis consistent with UTI I have personally reviewed the patient's chest x-ray. Chest x-ray is unremarkable for pulmonary edema, pneumothorax, pneumonia or focal cardiopulmonary abnormality. CT scan lumbar spine showed no evidence of obvious bony abnormality lumbar spine CT scan abdomen pelvis with no evidence of obvious intra-abdominal surgical pathology or left lithiasis During the patient's ED course she became hypoxic. She does note she has NAYA and wears oxygen at night. Her lungs were clear. At this point I ambulated the patient to assess if she had an exertional hypoxia. She ambulates she desaturated to 82%Given exertional hypoxia add on a BNP, COVID flu RSV and CTA of the chest. Additional testing also was negative. Given exertional hypoxia admit the patient. Will also admit for UTI. The patient and/or family, caregivers express understanding. The patient and/or family, caregivers agrees with the plan. Shared decision making: I will have a discussion with the patient and or visitors regarding risk/benefits of further testing or admission. They will be made aware of of the risk/benefits inherent in this decision they will be given the opportunity to voice understanding. Total critical care time today provided was at least 0 minutes. This excludes separately billable procedures. Critical care time (if documented) is secondary to the patient having high probability of clinically significant/life threatening deterioration in the patient's condition which required my urgent intervention. Impression: 1. Back pain 2. UTI 3. NAYA 4. Exertional hypoxia Dispo: Admit to medical floor This note was generated with [employer] dictation software. It may contain incorrect words, spelling, and punctuation that were not noted in review of the chart prior to signing. Lab Data Labs: Laboratory Results - last 24 hr 08/13/24 08/13/24 20:40 21:37 WBC 8.9 RBC 4.25 Hgb 13.0 Hct 39.0 MCV 91.8 MCH 30.6 MCHC 33.3 RDW Std Deviation 42.6 RDW Coeff of [place] 12.9 Plt Count 270 MPV 9.4 Sodium 136 Potassium 3.9 Chloride 102 Carbon Dioxide 21.7 Anion Gap 12 BUN 21 H Creatinine 1.27 H Estim Creat Clear Calc 37.10 L Est GFR (MDRD) Non-Af 42 L BUN/Creatinine Ratio 16.7 Glucose 123 H Calcium 8.8 Total Bilirubin 0.25 AST 21 ALT 10 Alkaline Phosphatase 100 Troponin T High Sens 22 H NT pro BNP II 236 Total Protein 6.4 Albumin 4.0 Globulin 2.4 Albumin/Globulin Ratio 1.6 Urine Color Yellow Urine Clarity Sl. Cloudy Urine pH 5.0 Ur Specific [place] 1.025 Urine Protein 30 H Urine Glucose (UA) Normal Urine Ketones 5 H Urine Occult Blood 10 H Urine Nitrite Positive H Urine Bilirubin Negative Urine Urobilinogen Normal Ur Leukocyte Esterase 500 H Urine RBC 0-5 SEEN Urine WBC 25-50 SEEN Ur Squamous Epith Cells 0 SEEN Urine Bacteria 3+ Urine Mucus 0 SEEN Radiography Diagnostic Testing: Clinical Impression(s) from Imaging Studies Abdomen/Pelvis CT 08/13/24 21:28 IMPRESSION: No acute findings in the abdomen and pelvis. Reading [facility] Lumbar Spine CT 08/13/24 21:28 IMPRESSION: No acute fracture or traumatic subluxation. Degenerative changes, most prominent at L3-L4. Reading Location[facility] Chest X-Ray 08/13/24 21:48 IMPRESSION: No Acute Findings. Reading Location: [facility] Discharge Plan Triage Chief Complaint: Back ED Provider: Haider Hinojosa Dx/Rx/DC Orders Prescriptions: No Action famotidine 40 mg Tablet 40 mg PO QHS pantoprazole [address] For Susp In Packet 40 mg PO DAILY mirabegron [Myrbetriq] 50 mg Tablet Extended Release 24 Hr 50 mg PO DAILY ezetimibe 10 mg tablet 10 mg PO DAILY albuterol sulfate 90 mcg/actuation HFA aerosol inhaler 2 inh inhalation Q4H PRN (Reason: SOB,Wheezing) fluoxetine [Prozac] 20 mg capsule 20 mg PO DAILY Qty: 30 0RF carvedilol 6.25 mg Tablet 6.25 mg PO BIDCM Qty: 60 0RF acetaminophen 500 mg Tablet 1,000 mg PO Q8 Qty: 180 0RF levothyroxine 50 mcg Tablet 50 mcg PO DAILY@0600 Qty: 30 0RF ipratropium bromide 42 mcg (0.06 %) [place],Non-Aerosol 2 spray NASAL TID Qty: 1 0RF solifenacin 10 mg tablet 10 mg PO DAILY polyethylene glycol 3350 [Miralax] 17 gram/dose powder 17 g PO BID PRN (Reason: constipation) Primary Care Provider: Richard Cruz Referrals: Richard Cruz MD [Primary Care Provider] - Print Language: Lebanese
[2024-08-13 20:43] VITALS: O2SAT 80; O2SAT 92
[2024-08-13 20:45] LABS: Mucous, Urine 0 SEEN /hpf (<or=2+); Squamous Epithelial Cells - UA 0 SEEN /hpf (5-10)
[2024-08-13 20:49] LABS: Color, Urine Yellow (Yellow); Glucose, Dipstick Normal (Normal); Ketone-Dipstick 5 mg/dl (Negative); Leukocyte Esterase-Dipstick 500 /ul (Negative); Nitrite-Dipstick Positive (Negative); Occult Blood-Urine 10 /ul (Negative); Protein-Dipstick 30 mg/dl (Negative); Specific Gravity, Urine 1.025 (1.002-1.030); Urine Bilirubin Dipstick Negative (Negative); Urine Clarity Sl. Cloudy (Clear); Urine Urobilinogen Normal (Normal)
[2024-08-13 20:58] LABS: Bacteria 3+ /hpf (None Seen); Red Blood Cells-Urine 0-5 SEEN /hpf (0-5); White Blood Cells 25-50 SEEN /hpf (0-5)
--- NOTE | 2024-08-13 21:26 | EKG12_ITS ---
Test Reason : BACK Blood Pressure : */* mmHG Vent. Rate : 84 BPM Atrial Rate : 84 BPM P-R Int : 144 ms QRS Dur : 88 ms QT Int : 404 ms P-R-T Axes : 14 7 81 degrees QTcB Int : 477 ms Normal sinus rhythm Nonspecific ST and T wave abnormality Abnormal ECG Confirmed by LUANN THOMAS, YULI ([id number]), editorial intern TIGIST DORADO ([id number]) on 08/14/2024 8:11:07 AM Referred By: MARY Confirmed By: YULI KONG MD
--- NOTE | 2024-08-13 21:28 | CT_ITS ---
PROCEDURE: ABDOMEN/PELVIS W IV CONT ONLY 08/13/2024 REASON FOR EXAM: ABDOMINAL PAIN TECHNIQUE: Abdomen and pelvis CT with intravenous contrast. Coronal and Sagittal reconstruction series were provided. PATIENT PREPARATION: Per protocol ORAL CONTRAST TYPE: None. AMOUNT: mL CONTRAST: Omnipaque 350 VOLUME: 100 mL Not Provided Gauge IV One or more dose reduction techniques were used (e.g., Automated exposure control, adjustment of the mA and/or kV according to patient size, use of iterative reconstruction technique. COMPARISON: None FINDINGS: Lung bases: Mild bibasilar atelectasis. Mild cardiomegaly. Dense mitral annular calcifications. Liver: Homogeneous attenuation. No focal lesion. Gallbladder: No ductal dilation. Status post cholecystectomy. Spleen: Normal size. Pancreas: Normal size without evidence of mass surrounding inflammation or ductal dilation. Adrenals: Unremarkable Kidneys: Normal renal sizes. No hydronephrosis. Bladder: No abnormal wall thickening. Reproductive Organs: No pelvic mass. Bowel: Stomach is unremarkable. Small hiatal hernia. No bowel dilation or wall thickening. Appendix: The appendix is not identified. There is no inflammatory process identified in the right lower quadrant to suggest appendicitis. Lymph nodes: No suspicious lymph node enlargement. Vasculature: Moderate diffuse atherosclerotic calcifications are noted. Peritoneum / Retroperitoneum: No ascites. No pneumoperitoneum. Bones: Degenerative changes of the spine. Soft tissues: Right retro gluteal neurostimulator device, with leads terminating in the left presacral region. CT/Abdomen/Pelvis W IV Cont ONLY IMPRESSION: No acute findings in the abdomen and pelvis. Reading Location: [facility]
--- NOTE | 2024-08-13 21:28 | CT_ITS ---
PROCEDURE: SPINE LUMBAR WITHOUT CONTRAST 08/13/2024 REASON FOR EXAM: BACK PAIN TECHNIQUE: Lumbar spine CT without contrast. Coronal and Sagittal reconstruction series were provided. One or more dose reduction techniques were used (e.g., Automated exposure control, adjustment of the mA and/or kV according to patient size, use of iterative reconstruction technique COMPARISON: Lumbar spine radiograph 08/12/2024 FINDINGS: Vertebrae: Vertebral body heights are maintained. Mild multilevel loss of disc space most prominent at L1-L2 and L2-L3. No acute fracture or traumatic malalignment. Right sacral spiculated lesion, likely bone island. Otherwise, no evidence of lytic or blastic lesion. Alignment: Lumbar lordosis is maintained. Mild levoscoliosis. Grade 1 anterolisthesis of L3 on L4 and L4 on L5. Multilevel degenerative changes with up to mild canal stenosis and moderate neural foraminal narrowing most prominent at L3-L4 CT/Spine Lumbar without Contrast IMPRESSION: No acute fracture or traumatic subluxation. Degenerative changes, most prominent at L3-L4. Reading Location: [facility]
[2024-08-13] MEDS: 0.9% Normal Saline (500mL Bag) 500 ML 1000 ML IV (21:39)
--- NOTE | 2024-08-13 21:48 | RAD_ITS ---
PROCEDURE: CHEST 1 VIEW (PORTABLE) 08/13/2024 REASON FOR EXAM: SOB TECHNIQUE: Frontal view of the chest. COMPARISON: None FINDINGS: Hardware: None Heart: Heart size is mildly enlarged. Lungs: Mild bibasilar atelectasis. No focal consolidation. No pneumothorax. No pleural effusion. Bones: Degenerative changes are identified within the thoracic spine. Other: RAD/Chest 1 View (Portable) IMPRESSION: No Acute Findings. Reading Location: [facility]
[2024-08-13 21:50] LABS: Mean Corp Hgb Conc 33.3 g/dL (32-36); Mean Corpuscular Hgb 30.6 pg (27.0-32.0); Mean Corpuscular Volume 91.8 fL (81-99); Mean Platelet Vol. 9.4 fl (6.2-12.0); Platelet Count 270 K/mm3 (150-450); RBC Distribution Width CV 12.9 % (11.6-14.6); RBC Distribution Width SD 42.6 fl (35.1-43.9); Red Blood Count 4.25 M/mm3 (4.2-5.4); White Blood Count 8.9 K/mm3 (4.4-11.0)
[2024-08-13 22:19] LABS: ALB/GLOB Ratio 1.6 RATIO (0.9-2.4); AST(SGOT) 21 U/L (<=31); Alanine Aminotransfer ALT/SGPT 10 U/L (<=34); Alkaline Phosphatase 100 U/L (35-104); Anion Gap 12 (5-15); BUN 21 mg/dL (4-19); BUN/Creat Ratio 16.7 RATIO (10-20); Calcium,Total 8.8 mg/dL (7.6-11.0); Carbon Dioxide 21.7 mmol/L (21.0-32.0); Chloride 102 mmol/L (98-108); Creatinine, Serum 1.27 mg/dL (0.70-1.20); EST Glomerular Filtration Rate 42 (>60); Globulin 2.4 g/dL (2.2-4.2); Glucose 123 mg/dL (70-99); Potassium 3.9 mmol/L (3.3-5.1); Pro- Brain NATRIURETIC PEPTIDE 236 pg/mL (<=1800); Protein, Total 6.4 g/dL (5.9-8.4); Sodium Level 136 mmol/L (133-145); Total Bilirubin 0.25 mg/dL (0.00-1.30); Troponin T High Sensitivity 22 ng/L (<=14)
[2024-08-13] MEDS: Ceftriaxone 1 GM/50 ML BAG IV (22:32)
[2024-08-13 22:45] VITALS: BP 120/63; PULSE 88; RESP 18; O2SAT 96
[2024-08-13 23:06] VITALS: O2SAT 97
--- NOTE | 2024-08-13 23:08 | CT_ITS ---
PROCEDURE: CTA CHEST W/WO CONTRAST 08/13/2024 REASON FOR EXAM: HYPOXIA TECHNIQUE: CTA axial imaging of the chest with intravenous contrast. Coronal and Sagittal reconstruction series were provided. 3D, 3D post processing, 3D reconstructions, Maximum intensity projection (MIPs) Volume rendering and Shaded surface rendering was provided. PATIENT PREPARATION: Per protocol CONTRAST: Isovue 370 VOLUME: 100 ML 18 gauge IV One or more dose reduction techniques were used (e.g., Automated exposure control, adjustment of the mA and/or kV according to patient size, use of iterative reconstruction technique). RADIATION DOSE SUMMARY: CTDlvol: 509.5 mGy DLP: 513.1 mGycm . COMPARISON: Chest radiograph dated August 13, 2024 FINDINGS: Hardware: None Lymph nodes: No lymphadenopathy. Heart: The heart is normal in size. The great vessels are normal in size and caliber. No pericardial effusion. Coronary artery calcification. RV/LV Diameter Ratio: Unremarkable Thoracic Aorta: Unremarkable Pulmonary Vessels: No evidence of pulmonary emboli up to the segmental arterial branches. More peripheral vessels are not well assessed. Most Proximal Level of Embolus (if embolus present): Lungs and Airways: Central airways are patent. Patchy opacity within the lingula and bilateral lower lobe likely representing scarring or subsegmental atelectasis. Dependent left basilar atelectasis. Pleura: Questionable trace left pleural effusion. Upper Abdomen: Unremarkable Bones: Multilevel degenerative changes throughout the spine. CT/CTA Chest W/WO Contrast IMPRESSION: No evidence of a pulmonary emboli up to the segmental arterial branches. More peripheral vessels are not well assessed. Reading Location: [facility]
[2024-08-13] MEDS: 0.9% Normal Saline (500mL Bag) 500 ML 999 ML IV (23:46)
[2024-08-13 23:47] VITALS: BP 148/78; PULSE 85; RESP 22; O2SAT 96
[2024-08-14] VITALS (12 sets, daily range): BP systolic 93–179; BP diastolic 49–86; PULSE 76–98; RESP 13–20; TEMP 36.3–36.9; O2SAT 93–98; BMI 35.1; BMI 35.4
--- NOTE | 2024-08-14 00:50 | HP.PCM.HOS_ITS ---
[facility] - General General Date of Admission: 08/14/24 Date of Service: 08/14/24 Chief Complaint: Lower Abdominal Pain and Back Pain. [facility] Narrative ALLAN SEGURA, is a 79 F with a past medical history of essential hypertension; on carvedilol, hyperlipidemia; on ezetimibe, hypothyroidism; on levothyroxine, obesity; with BMI of 35.3 this admission, NAYA; noncompliant with CPAP, chronic venous insufficiency, history of dementia, history of asthma; on as needed albuterol, history of overactive/neurogenic bladder; s/p bladder surgery on mirabegron and Solifenacin, depression; on fluoxetine, history of Hemoccult positive stool, history of appendectomy, history of cholecystectomy, GERD; on pantoprazole and famotidine nightly, history of constipation; on as needed polyethylene glycol and OA; with history of lateral meniscus repair of the Right knee and chronic back pain with patient ambulating with cane at baseline with frequent falls who presents to [facility] ER complaining of lower abdominal pain and back pain. Ms. Segura reports her symptoms began a few days ago after recent fall for which she received an x-ray that was negative for acute pathologic changes. She also noted flank pain and abdominal fullness but she denied bladder incontinence or urinary retention. There was no report of associated fever, chills, nausea, vomiting, abdominal pain, chest pain or headache. In the ER she was noted to have a UA positive for Acute Cystitis; without hematuria complicated by hypoxia with activity likely due to OHS with a CTA of the chest with and without IV contrast that revealed no evidence of pulmonary emboli with patent central airways and patchy opacity within the lingula and bilateral lower lobes likely presenting scarring or atelectasis with dependent left basilar atelectasis and questionable trace Left pleural effusion. She was then admitted to the general medical floor for ongoing care for a stay that is expected to extend beyond 2 midnights. FORMERLY [facility], [facility]–1983 Medical History NAYA (obstructive sleep apnea) Noncompliance with CPAP treatment Venous insufficiency (chronic) (peripheral) Dementia Dehydration Neurogenic bladder Frequent falls Glucose intolerance (impaired glucose tolerance) Loss of hearing Post-menopausal Ambulates with cane Arthritis Back pain Injury of head and neck Asthma CPAP (continuous positive airway pressure) dependence History of pain when walking Wears glasses Depression Overactive bladder High cholesterol Easy bruising Non-smoker PONV (postoperative nausea and vomiting) GERD (gastroesophageal reflux disease) Hypothyroid Home Medications ?Medication ?Instructions ?Recorded ?Last Taken ?Type famotidine 40 mg tablet 40 mg PO QHS GERD 06/11/22 U nknown History mirabegron 50 mg tablet,extended 50 mg PO DAILY OAB Unknown History release 24 hr (Myrbetriq) pantoprazole 40 mg granules 40 mg PO DAILY GERD 08/23/23 History delayed-release for susp in packet ezetimibe 10 mg tablet 10 mg PO DAILY cholestorol 1 05/28/22 08/23/23 History albuterol sulfate 90 mcg/actuation 2 inh inhalation Q4 H PRN 08/23/23 Unknown History aerosol inhaler SOB,Wheezing acetaminophen 500 mg tablet 1,000 mg (2 x 500 mg) PO Q 8 #180 09/07/23 Unknown Rx tabs carvedilol 6.25 mg tablet 6.25 mg PO BIDCM #60 tabs Unknown Rx fluoxetine 20 mg capsule (Prozac) 20 mg PO DAILY #30 c aps 09/07/23 Unknown Rx ipratropium bromide 42 mcg (0.06 2 spray NASAL TID #1 BOTTLE 09/07/23 Unknown Rx %) nasal spray levothyroxine 50 mcg tablet 50 mcg PO DAILY@0600 #30 t abs 09/07/23 Unknown Rx solifenacin 10 mg tablet 10 mg PO DAILY 08/12/24 Unkn own History polyethylene glycol 3350 17 17 g PO BID PRN constipati on 08/13/24 Unknown History gram/dose oral powder (Miralax) Allergy/AdvReac Type Severity Reaction Status Date / Time rofecoxib (From Vioxx) Allergy Unknown Verified 08/13/24 18:49 Surgical History Hx of surgical biopsy History of bladder surgery History of partial hysterectomy History of appendectomy History of cholecystectomy H/O lateral meniscus repair of right knee Social History housing: house Smoking Status: Never smoker second hand exposure: Yes substance use type: does not use ROS ROS Narrative Review of Systems: Constitutional: Patient denies fever or chills. Eyes: Patient denies change in vision or discharge from eyes. ENT: Patient denies runny nose, sore throat or ear pain. Resp: Patient denies shortness of breath or cough. CV: Patient denies chest pain, palpitations, heart racing or new lower extremity edema. GI: Patient denies abdominal pain, nausea, vomiting, diarrhea or constipation. : Patient denies bladder incontinence, urinary retention or hematuria. MSK: Patient admits to back pain after recent fall as per HPI. Skin: Patient denies rash, abscess, wounds or jaundice. Psych: Patient denies of uncontrolled depression or anxiety. Neuro: Patient denies headache, paresthesias or focal neurologic deficits. Allergy: Patient denies lip swelling, tongue swelling or urticaria. Hematology: Patient denies easy bleeding or easy bruisability. Endocrinology: Patient denies polyuria, polydipsia, polyphagia or heat/cold intolerance. 14 point ROS otherwise negative except for positives noted above in HPI. Vital Signs Vital Signs Vital Signs: 08/13/24 18:49 08/13/24 20:43 08/13/24 20:43 Temperature 97.5 F L Temperature Source Temporal Pulse Rate 88 Respiratory Rate 19 H Blood Pressure 134/68 H Blood Pressure Mean 90 Pulse Ox 92 80 92 Oxygen Delivery Method Room Air Room Air Nasal Cannula Oxygen Flow Rate (L/min) 2 08/13/24 22:45 08/13/24 23:47 08/14/24 00:37 Temperature 98.5 F Temperature Source Pulse Rate 88 85 88 Respiratory Rate 18 22 H 13 Blood Pressure 120/63 148/78 H 140/70 H Blood Pressure Mean 82 101 93 Pulse Ox 96 96 95 Oxygen Delivery Method Nasal Cannula Nasal Cannula Oxygen Flow Rate (L/min) 2 2 Weight Weight: 199 lb 8.293 oz Body Mass Index (BMI) 35.3 Physical Exam Const alert, oriented x3 and no apparent distress Constitutional Narrative: Obese. General Appearance: cooperative HEENT normocephalic, head/scalp atraumatic, hearing grossly normal bilaterally and moist oral mucous membranes Eyes PERRL and EOMs intact bilaterally Neck no lymphadenopathy and supple Resp normal respiratory effort, no retractions, no use of accessory muscles and clear to auscultation bilaterally Cardio regular rate and regular rhythm GI normal to inspection, nondistended, normoactive bowel sounds, soft to palpation, non-tender and non-distended Extremity normal to inspection, full ROM and no clubbing, cyanosis or edema Skin Skin Narrative: Patient denies rash, abscess, wounds or jaundice. Neuro oriented x3, CN's II-XII intact bilaterally, moves all extremities and no focal motor deficits Sensorium / Orientation: awake, alert, oriented to person, oriented to place and oriented to time Speech: speech normal Psych affect normal Results Medical Records Data Attestation: I reviewed the patient's medical records Lab / Micro Data Attestation: I reviewed the patient's lab results. 08/13/24 21:37 08/13/24 21:37 Labs: Laboratory Results - last 24 hr 08/13/24 20:40: Urine Color Yellow, Urine Clarity Sl. Cloudy, Urine pH 5.0, Ur Specific Mchenry 1.025, Urine Protein 30 H, Urine Glucose (UA) Normal, Urine Ketones 5 H, Urine Occult Blood 10 H, Urine Nitrite Positive H, Urine Bilirubin Negative, Urine Urobilinogen Normal, Ur Leukocyte Esterase 500 H, Urine RBC 0-5 SEEN, Urine WBC 25-50 SEEN, Ur Squamous Epith Cells 0 SEEN, Urine Bacteria 3+, Urine Mucus 0 SEEN 08/13/24 21:37: WBC 8.9, RBC 4.25, Hgb 13.0, Hct 39.0, MCV 91.8, MCH 30.6, MCHC 33.3, RDW Std Deviation 42.6, RDW Coeff of Dionne 12.9, Plt Count 270, MPV 9.4, Sodium 136, Potassium 3.9, Chloride 102, Carbon Dioxide 21.7, Anion Gap 12, BUN 21 H, Creatinine 1.27 H, Estim Creat Clear Calc 37.10 L, Est GFR (MDRD) Non-Af 42 L, BUN/Creatinine Ratio 16.7, Glucose 123 H, Calcium 8.8, Total Bilirubin 0.25, AST 21, ALT 10, Alkaline Phosphatase 100, Troponin T High Sens 22 H, NT pro BNP II 236, Total Protein 6.4, Albumin 4.0, Globulin 2.4, Albumin/Globulin Ratio 1.6 Micro: Microbiology 08/13/24 21:37 Mucosa - Nose SARS-CoV-2, Influenza & RSV (PCR) - Final Imaging Radiology Impression Abdomen/Pelvis CT 08/13/24 21:28 IMPRESSION: No acute findings in the abdomen and pelvis. Reading Location: [facility] Lumbar Spine CT 08/13/24 21:28 IMPRESSION: No acute fracture or traumatic subluxation. Degenerative changes, most prominent at L3-L4. Reading Location: [facility] Chest X-Ray 08/13/24 21:48 IMPRESSION: No Acute Findings. Reading Location: [facility] Chest CTA 08/13/24 23:08 IMPRESSION: No evidence of a pulmonary emboli up to the segmental arterial branches. More peripheral vessels are not well assessed. Reading Location: [facility] Assessment & Plan Assessment/Plan (1) Acute cystitis without hematuria: (2) Acute myofascial strain of lumbosacral region: QUALIFIERS: Encounter type: initial encounter Qualified Code(s): S39.012A - Strain of muscle, fascia and tendon of lower back, initial encounter (3) Hypoxia: (4) Sleep apnea: QUALIFIERS: Sleep apnea type: obstructive Qualified Code(s): G 47.33 - Obstructive sleep apnea (adult) (pediatric) (5) Obesity (BMI 30-39.9): PLAN: Plan 1. UA positive for Acute Cystitis; without hematuria - Admit to general medical floor. Continue empiric IV ceftriaxone begun in the ER and await culture and sensitivity data. Give acetaminophen as needed for [id number] (level 1- 5/10) pain or fever. Give morphine IV as needed for severe (level 6-10/10) pain. 2. Acute myofascial strain of lumbosacral region after recent fall complicating #1 - Give pain regimen as outlined in #1. Finally, PT/OT and case management consult and treat on rounds in the a.m. for further recommendations with help appreciated in advance. 3. Obesity; with BMI of 35.1 this admission plus patient noncompliant with CPAP noted to have Hypoxia with activity likely due to OHS compounding #1 & #2 - Patient will need to be tested to see if she requires home oxygen. She will be encouraged to use CPAP. Weight loss will be recommended. Check TSH. This complicates her case and may hamper recovery. 4. Essential hypertension; on carvedilol - Maintain current regimen. 5. Hyperlipidemia; on ezetimibe - Continue ezetimibe and check lipid profile this admission. 6. Hypothyroidism; on levothyroxine - Resume levothyroxine as previous and check TSH. 7. History of chronic venous insufficiency - Noted with no signs of edema on admission. 8. History of dementia - Stable. 9. History of asthma; on as needed albuterol - Stable with no evidence of acute flare at this time. Continue as needed albuterol inhaler. 10. History of overactive/neurogenic bladder; s/p bladder surgery on mirabegron and Solifenacin - Resume current therapy. 11. Depression; on fluoxetine - Maintain current fluoxetine dose and schedule. 12. History of Hemoccult positive stool - Noted with no evidence of active bleeding at this time. 13. History of appendectomy - Noted. 14. History of cholecystectomy - Noted. 15. GERD; on pantoprazole and famotidine nightly - Continue current treatment. 16. History of constipation; on as needed polyethylene glycol - Stable. 17. OA; with history of lateral meniscus repair of the Right knee and chronic back pain with patient ambulating with cane at baseline with frequent falls - Stable. 18. DVT prophylaxis - Lovenox 40 mg sq daily plus SCDs. Total time: Approximately (but not less than) 55 minutes. Charges/Coding Visit Charges Inpatient E&M: 50688 Init Hosp L2
[2024-08-14] MEDS: Morphine 2 MG/ML Syringe IV ×2 (01:03→20:21)
[2024-08-14] MEDS: Ketorolac 15 MG/ML Vial IV (01:07)
[2024-08-14] MEDS: 0.9% Normal Saline (1000mL) 1,000 ML 70 ML IV (03:15)
[2024-08-14] MEDS: Ipratropium Bromide 0.06% NASAL SPRAY 2 SPRAY NASAL ×3 (05:34→20:29)
[2024-08-14] MEDS: Levothyroxine 50 MCG Tablet PO (05:38)
[2024-08-14] MEDS: Acetaminophen 325 MG Tablet 650 MG PO ×2 (05:38→20:21)
[2024-08-14 08:00] LABS: Absolute Lymphocyte Count 1.83 X10^3/uL (0.83-4.51); Basophil# 0.04 X10^3/uL; Basophil% 0.6 % (0-1); Eosinophil# 0.19 X10^3/uL; Eosinophils% 2.8 % (0-5); Hematocrit 34.7 % (37-47); Hemoglobin 11.2 g/dL (12.0-15.0); Lymphocyte # 1.83 X10^3/ul (0.83-4.51); Lymphocyte % 26.8 % (19-41); Mean Corp Hgb Conc 32.3 g/dL (32-36); Mean Corpuscular Hgb 30.2 pg (27.0-32.0); Mean Corpuscular Volume 93.5 fL (81-99); Mean Platelet Vol. 9.4 fl (6.2-12.0); Monocyte# 0.79 X10^3/uL; Monocyte% 11.6 % (0-10); NRBC Flagged by Analyzer 0 % (0-5); Neutrophil # 3.95 X10^3/uL (2.7-7.7); Neutrophil % 57.8 % (47-70); Platelet Count 249 K/mm3 (150-450); RBC Distribution Width CV 12.8 % (11.6-14.6); RBC Distribution Width SD 43.8 fl (35.1-43.9); Red Blood Count 3.71 M/mm3 (4.2-5.4); White Blood Count 6.8 K/mm3 (4.4-11.0)
--- NOTE | 2024-08-14 08:16 | PN.HOSP_ITS ---
Hospitalist Note Mrs. Paredes is a 79-year-old female who presents emergency department at [facility] on 08/14/2024 with a chief complaint of lower abdominal pain and back pain. She ambulates with a cane at baseline. And presented with frequent falls and abdominal pain as well as back pain. Her symptoms began a few days prior to presentation after she sustained a fall. She had x-rays that were unremarkable at that time. She also was complaining of some flank pain and abdominal fullness. She denied any bladder incontinence or urinary retention at the time presentation. She had no fever chills, nausea or vomiting or specific upper abdominal pain. Vital signs on presentation showed a temperature of 97.5, heart rate 88, respiratory rate 19, blood pressure 134/68 and pulse ox was 92% on room air. She desatted to 80% on room air in the emergency department placed on 2 L nasal cannula with improvement to oxygen saturation 92%. CBC on presentation was unremarkable. Today she has a mild monocytosis at 11.6% but CBC remains unremarkable. Chemistry panel showed stable CKD stage IIIb with a serum creatinine of 1.27 but was otherwise unremarkable. BNP is normal. TSH was 5.55. UA was suggestive of dehydration and infection. Urine specific gravity was 1.025. She had positive nitrates and leuk esterase, white cells and 3+ bacteria. Chest x-ray was unremarkable but with her hypoxia CTA of her chest was performed and was overtly unremarkable. CT abdomen pelvis was also unremarkable for any acute findings. COVID/flu/RSV was unremarkable. Urine culture was sent and is currently pending. She does remain on 2 L nasal cannula with a sat of 94%. She is on incentive spirometry and I added Acapella therapy. She is on ceftriaxone for suspected urinary tract infection with pending culture. Will target antibiotics to cultures as culture results. Check respiratory viral panel given hypoxia. Patient does have respiratory history and has diagnosis of sleep apnea with an AHI of 60.9. She does utilize PAP therapy at bedtime. Per last report in the pulmonary office she is extremely compliant with her mask. Settings 8 cm of water. At baseline she is on room air and sats appear to be in the low 90s. I do anticipate patient may be able to be discharged tomorrow. Will check ambulatory pulse ox prior to discharge. Continue current therapy. She is a never smoker so we will just continue with albuterol and DuoNebs.
[2024-08-14 08:28] LABS: Hemoglobin A1c 5.9 % (<=5.6)
[2024-08-14 08:29] LABS: ALB/GLOB Ratio 1.6 RATIO (0.9-2.4); AST(SGOT) 20 U/L (<=31); Alanine Aminotransfer ALT/SGPT 9 U/L (<=34); Albumin, Serum 3.5 g/dL (3.4-4.8); Alkaline Phosphatase 88 U/L (35-104); Anion Gap 11 (5-15); BUN 18 mg/dL (4-19); BUN/Creat Ratio 15.4 RATIO (10-20); Calcium,Total 8.8 mg/dL (7.6-11.0); Carbon Dioxide 21.2 mmol/L (21.0-32.0); Chloride 105 mmol/L (98-108); Creatinine, Serum 1.19 mg/dL (0.70-1.20); EST Glomerular Filtration Rate 46 (>60); Estimated Creatinine Clearance 39.66 ml/min (50-250); Globulin 2.2 g/dL (2.2-4.2); Glucose 90 mg/dL (70-99); Phosphorus 4.1 mg/dL (2.7-4.5); Potassium 4.1 mmol/L (3.3-5.1); Protein, Total 5.7 g/dL (5.9-8.4); Sodium Level 137 mmol/L (133-145); Total Bilirubin 0.21 mg/dL (0.00-1.30)
[2024-08-14] MEDS: Carvedilol 6.25 MG Tablet PO ×2 (08:30→17:52)
[2024-08-14] MEDS: Pantoprazole Sodium 40 MG Tablet PO (10:29)
[2024-08-14] MEDS: Lactobacillis Acidophilus 1 CAP PO ×4 (10:29→20:29)
[2024-08-14] MEDS: Tolterodine Tartrate 4 MG CAP.SA PO (10:29)
[2024-08-14] MEDS: Ezetimibe 10 MG Tablet PO (10:29)
[2024-08-14] MEDS: FLUoxetine 20 MG Capsule PO (10:30)
[2024-08-14] MEDS: Vibegron 75 MG TABLET PO (10:30)
[2024-08-14] MEDS: Enoxaparin 40 MG/0.4 ML Syringe SC (10:30)
--- NOTE | 2024-08-14 14:59 | CASEMGMT ---
Addendum entered by Maryann Brantley 08/14/24 15:05: TC to pt son, he states he is not sure of the patient's DME supplier but is going to her home today and will check and notify [facility]EM[facility] when he comes to visit. Original Note: Received confirmation from [facility] that they are not patient's current DME provider for her oxygen.
--- NOTE | 2024-08-14 15:37 | CASEMGMT ---
[facility] Assessment Face to Face with patient for initial transition planning/care coordination assessment. [facility] HEMPH[facility] introduced self and role at [facility], pt voices understanding. Pt is A&Ox4 and is resting comfortably in the chair and is calm. Care providers, pharmacy, and demographics verified. Admitting dx: UTI LACE Strata: 2 PCP: Richard Cruz Specialists: [facility] (Pt unable to recall name) Preferred Pharmacy: [facility] Insurance: MCR A/B, [employer] Prescription Benefit: Yes LNOK: Netta Carmona (Daughter), Ryan Ivory (Son) Living Arrangements: Pt lives alone in a single story home with 2 steps to enter ADLs/IADLs: Pt reports that she is mainly independent but her children helps her clean at home Transportation: Pt children. Denies concerns DME: Home oxygen. Pt states that she believes that it is through [employer]. Pt states that she only wears @ HS and that she has a concentrator but no portability or pulse ox. Pt educated on pulse ox purchasing options. Per chart review, pt has had recent falls. Pt declines having a medical alert system. MS3 [facility]EM[facility] notified and will f/u with MAS info and oxygen needs. Pt also reports that she has a FWW, Cane, crutches, W/C, and grab bars. HHC/S[facility] Pt[facility]s goal: Home Plan: Home with MAS info, family support, potential updated O2 needs, and follow for HHC. Pt did well with therapy, see notes. At this time, the pt states that she may be interested in HHC, but would like to talk to her son about this first. Pt states that her son will be coming into the hospital this evening and that CM can f/u tomorrow. Pt is aware of home bound status. MS3 [facility] updated and to follow. Pt denies further questions or concerns at this time. Lourdes Sheridan RN, CM
[2024-08-14] MEDS: Famotidine 20 MG Tablet 40 MG PO (20:35)
[2024-08-14] MEDS: Ceftriaxone 1 GM/50 ML BAG IV (20:40)
[2024-08-14] MEDS: Polyethylene Glycol 3350 17 GM PACKET PO (20:40)
--- NOTE | 2024-08-14 21:33 | CPS ---
Patient has 2L oxygen bled intp CPAP HS
[2024-08-15] VITALS: BP 153/97; PULSE 69; RESP 16; TEMP 36.4; O2SAT 95
[2024-08-15] MEDS: Morphine 2 MG/ML Syringe IV (03:53)
[2024-08-15 04:07] VITALS: BP 144/67; PULSE 78; RESP 16; TEMP 36.5; O2SAT 95
[2024-08-15] MEDS: Acetaminophen 325 MG Tablet 650 MG PO (05:42)
[2024-08-15] MEDS: Levothyroxine 50 MCG Tablet PO (05:42)
[2024-08-15] MEDS: Ipratropium Bromide 0.06% NASAL SPRAY 2 SPRAY NASAL ×2 (05:43→13:21)
[2024-08-15 05:51] VITALS: BMI 35.8
[2024-08-15 07:41] LABS: Absolute Lymphocyte Count 1.92 X10^3/uL (0.83-4.51); Basophil# 0.05 X10^3/uL; Basophil% 0.9 % (0-1); Eosinophil# 0.26 X10^3/uL; Eosinophils% 4.5 % (0-5); Hematocrit 35.5 % (37-47); Hemoglobin 11.4 g/dL (12.0-15.0); Lymphocyte # 1.92 X10^3/ul (0.83-4.51); Mean Corp Hgb Conc 32.1 g/dL (32-36); Mean Corpuscular Hgb 30.2 pg (27.0-32.0); Mean Corpuscular Volume 93.9 fL (81-99); Mean Platelet Vol. 9.6 fl (6.2-12.0); Monocyte# 0.58 X10^3/uL; NRBC Flagged by Analyzer 0 % (0-5); Neutrophil # 2.97 X10^3/uL (2.7-7.7); Neutrophil % 50.9 % (47-70); Platelet Count 263 K/mm3 (150-450); RBC Distribution Width SD 44.2 fl (35.1-43.9); Red Blood Count 3.78 M/mm3 (4.2-5.4); White Blood Count 5.8 K/mm3 (4.4-11.0)
[2024-08-15 08:14] LABS: Anion Gap 14 (5-15); BUN 14 mg/dL (4-19); BUN/Creat Ratio 11.6 RATIO (10-20); Calcium,Total 8.7 mg/dL (7.6-11.0); Carbon Dioxide 18.5 mmol/L (21.0-32.0); Chloride 104 mmol/L (98-108); Creatinine, Serum 1.23 mg/dL (0.70-1.20); EST Glomerular Filtration Rate 44 (>60); Estimated Creatinine Clearance 38.58 ml/min (50-250); Glucose 88 mg/dL (70-99); Magnesium 2.2 mg/dL (1.5-2.2); Phosphorus 4.1 mg/dL (2.7-4.5); Potassium 4.3 mmol/L (3.3-5.1); Sodium Level 136 mmol/L (133-145)
[2024-08-15 08:17] VITALS: BP 147/68; PULSE 77; RESP 18; TEMP 36.6; O2SAT 97
[2024-08-15] MEDS: oxyCODONE 5 MG Tablet PO (08:24)
[2024-08-15] MEDS: Carvedilol 6.25 MG Tablet PO (08:24)
[2024-08-15] MEDS: Vibegron 75 MG TABLET PO (09:34)
[2024-08-15] MEDS: Tolterodine Tartrate 4 MG CAP.SA PO (09:34)
[2024-08-15] MEDS: Lactobacillis Acidophilus 1 CAP PO ×2 (09:34→13:21)
[2024-08-15] MEDS: FLUoxetine 20 MG Capsule PO (09:35)
[2024-08-15] MEDS: Pantoprazole Sodium 40 MG Tablet PO (09:35)
[2024-08-15] MEDS: Ezetimibe 10 MG Tablet PO (09:35)
[2024-08-15] MEDS: Enoxaparin 40 MG/0.4 ML Syringe SC (09:35)
[2024-08-15 12:41] VITALS: O2SAT 89; O2SAT 94
--- NOTE | 2024-08-15 12:43 | CASEMGMT ---
Received message that pt son reports oxygen is from [employer]. Emailed [employer] again to verify.
--- NOTE | 2024-08-15 12:52 | DS.PCM_ITS ---
Providers Date of Admission: 08/14/24 Date of Discharge: 08/15/24 Primary Care Physician: Dr. Richard Cruz MD Reason For Visit: UTI Diagnosis Discharge Diagnosis (1) Acute cystitis without hematuria: Status: Acute Code(s): N30.00 - Acute cystitis without hematuria (2) Acute myofascial strain of lumbosacral region: Status: Acute Code(s): S39.012A - Strain of muscle, fascia and tendon of lower back, initial encounter Qualifiers: Encounter type: initial encounter Qualified Code(s): S39.012A - Strain of muscle, fascia and tendon of lower back, initial encounter (3) Hypoxia: Status: Acute Code(s): R09.02 - Hypoxemia (4) Sleep apnea: Status: Chronic Code(s): G47.30 - Sleep apnea, unspecified Qualifiers: Sleep apnea type: obstructive Qualified Code(s): G47.33 - Obstructive sleep apnea (adult) (pediatric) (5) Obesity (BMI 30-39.9): Status: Acute Code(s): E66.9 - Obesity, unspecified Medications at Discharge Home Medications famotidine 40 mg tablet 40 mg PO QHS GERD 06/11/22 mirabegron 50 mg tablet,extended release 24 hr (Myrbetriq) 50 mg PO DAILY OAB 06/11/22 pantoprazole 40 mg granules delayed-release for susp in packet 40 mg PO DAILY GERD 06/11/22 ezetimibe 10 mg tablet 10 mg PO DAILY cholestorol 03/28/23 albuterol sulfate 90 mcg/actuation aerosol inhaler 2 inh inhalation Q4H PRN SOB,Wheezing 08/23/23 acetaminophen 500 mg tablet 1,000 mg (2 x 500 mg) PO Q8 pain #180 tabs 09/07/23 carvedilol 6.25 mg tablet 6.25 mg PO BIDCM heart #60 tabs 09/07/23 fluoxetine 20 mg capsule (Prozac) 20 mg PO DAILY mood #30 caps 09/07/23 ipratropium bromide 42 mcg (0.06 %) nasal spray 2 spray NASAL TID #1 BOTTLE 09/07/23 levothyroxine 50 mcg tablet 50 mcg PO DAILY@0600 thyroid #30 tabs 09/07/23 solifenacin 10 mg tablet 10 mg PO DAILY bladder 08/12/24 polyethylene glycol 3350 17 gram/dose oral powder (Miralax) 17 g PO BID PRN constipation 08/13/24 cephalexin 500 mg capsule 500 mg PO BID #10 caps 08/15/24 Hospital Course Operations None Procedures EKG and - (CT of the abdomen and pelvis/CT of the lumbar spine/CTA of the chest/chest x-ray) Summary of Care Provided Minutes Spent on Discharge: 38 Hospital Course: Mrs. Paredes is a 79-year-old female who presents emergency department at [facility] on 08/14/2024 with a chief complaint of lower abdominal pain and back pain. She ambulates with a cane at baseline. And presented with frequent falls and abdominal pain as well as back pain. Her symptoms began a few days prior to presentation after she sustained a fall. She had x-rays that were unremarkable at that time. She also was complaining of some flank pain and abdominal fullness. She denied any bladder incontinence or urinary retention at the time presentation. She had no fever chills, nausea or vomiting or specific upper abdominal pain. Vital signs on presentation showed a temperature of 97.5, heart rate 88, respiratory rate 19, blood pressure 134/68 and pulse ox was 92% on room air. She desatted to 80% on room air in the emergency department placed on 2 L nasal cannula with improvement to oxygen saturation 92%. CBC on presentation was unremarkable. Today she has a mild monocytosis at 11.6% but CBC remains unremarkable. Chemistry panel showed stable CKD stage IIIb with a serum creatinine of 1.27 but was otherwise unremarkable. BNP is normal. TSH was 5.55. UA was suggestive of dehydration and infection. Urine specific gravity was 1.025. She had positive nitrates and leuk esterase, white cells and 3+ bacteria. Chest x-ray was unremarkable but with her hypoxia CTA of her chest was performed and was overtly unremarkable. CT abdomen pelvis was also unremarkable for any acute findings. COVID/flu/RSV was unremarkable. Urine culture shows 2 gram-negative organisms whose colony counts are low but since patient was symptomatic we elected to treat. At the time of admission she was placed on ceftriaxone to cover her urine. She clinically is much improved so we will continue Keflex at the time of discharge. She did temporarily require oxygen I suspect this was likely atelectatic related that she is improved with its benefit from a tree and no real treatment for her lungs other than ceftriaxone. She did not have symptoms consistent with a pneumonia and her imaging was not consistent with pneumonia. We did an amatory pulse ox prior to discharge and patient required no oxygen. I encouraged her to continue incentive spirometry and Acapella at the time of discharge. She was feeling much improved and anxious to go home. I have sent a prescription for Keflex to local pharmacy to complete a total of a 10-day course given the severity of her symptoms on presentation. I have asked her to follow-up with her primary care physician within the next week. Discharge diagnoses: Abdominal pain Uncomplicated UTI Transient hypoxia Essential hypertension Acute myofascial strain of the lumbosacral spine due to fall Hyperlipidemia Hypothyroidism Chronic venous insufficiency Mild cognitive impairment Asthma Overactive bladder GERD Osteoarthritis Depression Physical Exam Const alert, oriented x3, no apparent distress, no limitations, healthy appearing and well nourished; Negative for average body habitus Constitutional Narrative: Obese, elderly, white female, sitting up in a chair at the bedside, eating lunch, on room air and looks well, daughter at bedside General Appearance: cooperative, comfortable, well kempt and well developed Exam Limitations: no limitations Nutritional Appearance: obese HEENT normocephalic, head/scalp atraumatic, hearing grossly normal bilaterally and moist oral mucous membranes Eyes EOMs intact bilaterally and conjunctivae normal Eyes Narrative: No scleral icterus Neck supple Neck Narrative: Trachea midline Resp normal respiratory effort, no retractions, no use of accessory muscles and clear to auscultation bilaterally Cardio regular rate, regular rhythm, S1 normal heart sound, S2 normal heart sound, no murmurs, no rub, no gallops and no clicks GI normal to inspection, nondistended, normoactive bowel sounds, soft to palpation and non-tender Extremity no clubbing, cyanosis or edema Extremity Narrative: Pedal and radial pulses are 2+ Skin skin turgor normal, no jaundice, no petechiae and no mottling Skin Narrative: Few scattered ecchymosis from fall Neuro oriented x3, moves all extremities and no focal motor deficits Speech: speech normal Psych affect normal Psych Narrative: Extremely pleasant, eye contact is good and patient interacts appropriately Weight / BMI Weight Weight: 91.7 kg Body Mass Index (BMI) 35.8 ABG / Lab / Microbiology Data 08/15/24 06:36 08/15/24 06:36 Laboratory: Laboratory Results - last 24 hr 08/15/24 06:36: WBC 5.8, RBC 3.78 L, Hgb 11.4 L, Hct 35.5 L, MCV 93.9, MCH 30.2, MCHC 32.1, RDW Std Deviation 44.2 H, RDW Coeff of Dionne 13.0, Plt Count 263, MPV 9.6, Immature Gran % (Auto) 0.700, Neut % (Auto) 50.9, Lymph % (Auto) 33.0, [place] % (Auto) 10.0, Eos % (Auto) 4.5, Baso % (Auto) 0.9, Absolute Neuts (auto) 3.0, Absolute Lymphs (auto) 1.92, Nucleated RBC % 0, Sodium 136, Potassium 4.3, Chloride 104, Carbon Dioxide 18.5 L, Anion Gap 14, BUN 14, Creatinine 1.23 H, E stim Creat Clear Calc 38.58 L, Est GFR (MDRD) Non-Af 44 L, BUN/Creatinine Ratio 11.6, Glucose 88, Calcium 8.7, Phosphorus 4.1, Magnesium 2.2 Microbiology: Microbiology 08/13/24 20:40 Urine, Catheterized Urine Culture - Preliminary GNR lactose coin box inspector GNR lactose coin box inspector#2 08/14/24 08:34 Mucosa - Nasopharyngeal Respiratory Panel (PCR) - Final 08/13/24 21:37 Mucosa - Nose SARS-CoV-2, Influenza & RSV (PCR) - Final D/C Instructions Discharge Diet: No restrictions Discharge Activity: Return to Normal Activity DC O2, CPAP, BIPAP Needs Home O2 Discharge instructions: No Meaningful Use Info Meaningful Use Meaningful Use Diagnoses (Choose all that apply): None applicable Ischemic Stroke Statin Dosing Therapy Reference: STATIN DOSE THERAPY REFERENCE: * Patients > 75 years receive moderate or high dose statin therapy. * Patients 75 years or YOUNGER should receive HIGH intensity statin dose unless contraindicated. You will be required to document reason for non-treatment if statin daily dose does not meet guidelines. HIGH DOSE STATIN THERAPY DAILY Atorvastatin > than or = to 40 mg Rosuvastatin > than or = to 20 mg Amlodipine + Atorvastatin > than or = to 2.5/40 mg Ezetimibe + Simvastatin 10/80 mg Simvastatin 80mg Discharge Plan Admission Admit Date/Time: 08/14/24 01:06 Primary Reason for Your Visit: Abdominal pain Attending Provider: Charlee Hernandez Primary Care Provider: Richard Cruz Consulting Providers: Jose Aj Instructions Additional Instructions / Restrictions: 1. Please continue to use your incentive spirometer and Acapella at least 3-4 times daily over the next 1 to 2 weeks 2. Encouraged ongoing mobility and ambulation 3. Please complete antibiotics as noted below Discharge Orders/Prescriptions Prescriptions: New cephalexin 500 mg capsule 500 mg PO BID Qty: 10 0RF Continued famotidine 40 mg Tablet 40 mg PO QHS pantoprazole [address] For Susp In Packet 40 mg PO DAILY mirabegron [Myrbetriq] 50 mg Tablet Extended Release 24 Hr 50 mg PO DAILY ezetimibe 10 mg tablet 10 mg PO DAILY albuterol sulfate 90 mcg/actuation HFA aerosol inhaler 2 inh inhalation Q4H PRN (Reason: SOB,Wheezing) fluoxetine [Prozac] 20 mg capsule 20 mg PO DAILY Qty: 30 0RF carvedilol 6.25 mg Tablet 6.25 mg PO BIDCM Qty: 60 0RF acetaminophen 500 mg Tablet 1,000 mg PO Q8 Qty: 180 0RF levothyroxine 50 mcg Tablet 50 mcg PO DAILY@0600 Qty: 30 0RF ipratropium bromide 42 mcg (0.06 %) [place],Non-Aerosol 2 spray NASAL TID Qty: 1 0RF solifenacin 10 mg tablet 10 mg PO DAILY polyethylene glycol 3350 [Miralax] 17 gram/dose powder 17 g PO BID PRN (Reason: constipation) Referrals / Follow Up: Richard Cruz MD [Primary Care Provider] - Within 2 Weeks Disposition Disposition (needs filled in before D/C Order can be placed): Home, Self Care Charges/Coding Visit Charges Inpatient E&M: 35256 Disch Hosp >30min
--- NOTE | 2024-08-15 13:08 | CASEMGMT ---
Pt did not qualify for home oxygen. No PT recommended. RN CM into pt room, pt sister and dtr present. Pt reports having a CPAP at home with O2 through [employer] for 2L bleed in to pap. Pt aware no therapy was recommended at this time. Discussed SN for pt for UTI prevention/teaching. Pt dtr spoke up who is also a nurse and states that is not necessary. Pt denies any homegoing needs at this time.
[2024-08-15] MEDS: Acetaminophen 500 MG Tablet 1000 MG PO (13:21)
[2024-08-15 13:32] VITALS: BP 158/60; PULSE 87; RESP 18; TEMP 36.3; O2SAT 93
--- NOTE | 2024-08-15 13:48 | PHA.DC.MR.R ---
Pharmacy [place] Med Reconciliation Pharmacy Service has performed discharge medication reconciliation for this patient. Medication education papers prepared, patient discharged when counseling was attempted. The patient's discharge medication list was reviewed for discrepancies and discrepancies were resolved. Medications at Discharge Home Medications famotidine 40 mg tablet 40 mg PO QHS GERD 06/11/22 mirabegron 50 mg tablet,extended release 24 hr (Myrbetriq) 50 mg PO DAILY OAB 06/11/22 pantoprazole 40 mg granules delayed-release for susp in packet 40 mg PO DAILY GERD 06/11/22 ezetimibe 10 mg tablet 10 mg PO DAILY cholestorol 03/28/23 albuterol sulfate 90 mcg/actuation aerosol inhaler 2 inh inhalation Q4H PRN SOB,Wheezing 08/23/23 acetaminophen 500 mg tablet 1,000 mg (2 x 500 mg) PO Q8 pain #180 tabs 09/07/23 carvedilol 6.25 mg tablet 6.25 mg PO BIDCM heart #60 tabs 09/07/23 fluoxetine 20 mg capsule (Prozac) 20 mg PO DAILY mood #30 caps 09/07/23 ipratropium bromide 42 mcg (0.06 %) nasal spray 2 spray NASAL TID #1 BOTTLE 09/07/23 levothyroxine 50 mcg tablet 50 mcg PO DAILY@0600 thyroid #30 tabs 09/07/23 solifenacin 10 mg tablet 10 mg PO DAILY bladder 08/12/24 polyethylene glycol 3350 17 gram/dose oral powder (Miralax) 17 g PO BID PRN constipation 08/13/24 cephalexin 500 mg capsule 500 mg PO BID #10 caps 08/15/24
--- NOTE | 2024-08-15 16:24 | NURSING ---
All documentation by nursing program coordinator Verena Carrasco reviewed by nursing tech Marilee MONTEZN, RN.
== END 2024-08-15 13:45 | disposition home or self-care (01) | DRG 690 ==
LOC: ED 08-14 00:56 → MS3 08-14 02:03
PROVIDERS: Physician Assistant; Admitting Provider Internal Medicine; Emergency Provider Emergency Medicine; PCP Family Medicine; Visit Provider Internal Medicine
DX: N30.00 Acute cystitis without hematuria (principal); E66.2 Morbid (severe) obesity with alveolar hypoventilation; F03.93 Unspecified dementia, unspecified severity, with mood disturbance; F03.94 Unspecified dementia, unspecified severity, with anxiety; J98.11 Atelectasis; N18.32 Chronic kidney disease, stage 3b; E03.9 Hypothyroidism, unspecified; J45.909 Unspecified asthma, uncomplicated; I12.9 Hypertensive chronic kidney disease with stage 1 through stage 4 chronic kidney disease, or unspecified chronic kidney disease; E86.0 Dehydration; E78.00 Pure hypercholesterolemia, unspecified; K21.9 Gastro-esophageal reflux disease without esophagitis; K59.00 Constipation, unspecified; M19.90 Unspecified osteoarthritis, unspecified site; M54.9 Dorsalgia, unspecified; S39.012A Strain of muscle, fascia and tendon of lower back, initial encounter; W06.XXXA Fall from bed, initial encounter; I87.2 Venous insufficiency (chronic) (peripheral); M43.16 Spondylolisthesis, lumbar region; Z68.35 Body mass index [BMI] 35.0-35.9, adult; R09.02 Hypoxemia; N32.81 Overactive bladder; G89.29 Other chronic pain; R29.6 Repeated falls; Z79.899 Other long term (current) drug therapy; Z79.890 Hormone replacement therapy; Z90.49 Acquired absence of other specified parts of digestive tract; Z98.890 Other specified postprocedural states; Z91.199 Patient's noncompliance with other medical treatment and regimen due to unspecified reason
CPT/HCPCS: 36415; 71045; 71275; 72100; 72131; 74177; 80048; 80053; 81001; 83036; 83735; 83880; 84100; 84443; 84484; 85025; 85027; 87077; 87086; 87088; 87186; 87631; 87633; 93005; 94668; 97116; 97162; 97530; 99282; 99285; P9612; Q9967; A4216

== ENCOUNTER 2024-08-21 16:18 | Emergency (ER) | payer MEDICARE, OTHER, SELFPAY ==
[2024-08-21 16:18] VITALS: BP 202/101; PULSE 89; RESP 16; TEMP 36.6; O2SAT 99; BMI 35.3
[2024-08-21 16:23] VITALS: BP 184/92
[2024-08-21 21:00] VITALS: BP 173/87; PULSE 76; RESP 18; O2SAT 96
--- NOTE | 2024-08-21 21:06 | EDS_ITS ---
HPI <ASIF Whalen - Last Filed: 08/21/24 22:20> History of Present Illness Chief Complaint: Constipation Narrative Narrative: Patient is an 79-year-old female with history of hypertension, hyperlipidemia, chronic back pain who presents the [facility] apartment with 8 days of difficulty having a bowel movement. Pay states he is also been having lower back pain. She does have a chronic T12 compression fracture. Patient on her x-ray of her back yesterday, did show some dilated bowel loops concerning for obstruction. Patient has a daughter that has been trying to help her with her constipation. Patient has tried magnesium citrate, MiraLAX, a rectal exam, enemas and nothing is helping. She states that her abdomen is getting more full and more distended and is here for evaluation. [facility] <ASIF Whalen - Last Filed: 08/21/24 22:20> [facility] Medical History NAYA (obstructive sleep apnea) Noncompliance with CPAP treatment Venous insufficiency (chronic) (peripheral) Dementia Dehydration Neurogenic bladder Frequent falls Glucose intolerance (impaired glucose tolerance) Loss of hearing Post-menopausal Ambulates with cane Arthritis Back pain Injury of head and neck Asthma CPAP (continuous positive airway pressure) dependence History of pain when walking Wears glasses Depression Overactive bladder High cholesterol Easy bruising Non-smoker PONV (postoperative nausea and vomiting) GERD (gastroesophageal reflux disease) Hypothyroid Home Medications ?Medication ?Instructions ?Recorded ?Last Taken ?Type famotidine 40 mg tablet 40 mg PO QHS GERD 06/11/22 U nknown History mirabegron 50 mg tablet,extended 50 mg PO DAILY OAB Unknown History release 24 hr (Myrbetriq) pantoprazole 40 mg granules 40 mg PO DAILY GERD 08/23/23 History delayed-release for susp in packet ezetimibe 10 mg tablet 10 mg PO DAILY cholestorol 1 05/28/22 08/23/23 History albuterol sulfate 90 mcg/actuation 2 inh inhalation Q4 H PRN 08/23/23 Unknown History aerosol inhaler SOB,Wheezing acetaminophen 500 mg tablet 1,000 mg (2 x 500 mg) PO Q 8 pain 09/07/23 Unknown Rx #180 tabs carvedilol 6.25 mg tablet 6.25 mg PO BIDCM heart #60 t abs 09/07/23 Unknown Rx fluoxetine 20 mg capsule (Prozac) 20 mg PO DAILY mood #30 caps 09/07/23 Unknown Rx ipratropium bromide 42 mcg (0.06 2 spray NASAL TID #1 BOTTLE 09/07/23 Unknown Rx %) nasal spray levothyroxine 50 mcg tablet 50 mcg PO DAILY@0600 thyro id #30 09/07/23 Unknown Rx tabs solifenacin 10 mg tablet 10 mg PO DAILY bladder 08/12 Unknown History polyethylene glycol 3350 17 17 g PO BID PRN constipati on 08/13/24 Unknown History gram/dose oral powder (Miralax) lactulose 10 gram/15 mL oral 15 ml PO PRN 08/21/24 Unk nown History solution Allergy/AdvReac Type Severity Reaction Status Date / Time rofecoxib (From Vioxx) Allergy Unknown Verified 08/21/24 16:19 Surgical History Hx of surgical biopsy History of bladder surgery History of partial hysterectomy History of appendectomy History of cholecystectomy H/O lateral meniscus repair of right knee Social History housing: house Smoking Status: Former smoker second hand exposure: Yes substance use type: does not use ROS <ASIF Whalen - Last Filed: 08/21/24 22:20> ROS ED ROS Narrative Constitutional: Negative for fever, chills, weight loss, weakness Eyes: Negative for vision loss, vision change, double vision ENT: Negative for any sore throat, ear pain, congestion Cardiovascular: Negative for any chest pain, tightness, palpitations Respiratory: Negative for any cough, sputum production, hemoptysis, dyspnea, dyspnea on exertion, orthopnea Gastrointestinal: Negative for any nausea, vomiting, diarrhea, blood in stool, blood in vomit. Positive for abdominal pain, constipation : Negative for any urinary frequency, dysuria, retention, blood in urine Muscle skeletal: Negative for any neck pain. Positive for back pain Neurological: Negative for any headache, syncope, dizziness Skin: Negative for any rashes, itching, abrasions, lacerations Psychiatric: Negative for any depression, anxiety, stress, suicidal ideation, homicidal ideation Hematologic: Negative for any excessive bruising, easy bleeding EXAM <ASIF Whalen - Last Filed: 08/21/24 22:20> Physical Exam Narrative Exam Narrative: Vital signs reviewed. HEET: Head normocephalic atraumatic, TMs clear bilaterally. Posterior pharynx is clear, moist mucous membranes. Nares clear bilaterally. Neck: Supple with no lymphadenopathy or tenderness. No signs of meningismus. Cardiac: Regular rate and rhythm no murmurs gallops or rubs, equal peripheral pulses bilaterally. Respiratory: Lungs clear to auscultation bilaterally. No chest tenderness. Abdomen: Soft, nondistended. No abdominal bruit or pulsatile masses. No hep atosplenomegaly. Patient had hypoactive bowel sounds, no significant pain on palpation. No peritoneum. No guarding Extremities: No peripheral edema, no signs of gross trauma or deformity. Active full range of motion of all extremities. Neuro: Cranial nerves II through XII intact, no focal neurological deficits. Skin: Clean dry and intact with no rash, purpura, petechiae, vesicles or pustules. Backs/flank: No CVA tenderness, no midline spinal tenderness, no deformity. Psych: Normal mood and affect. No SI, HI or acute psychosis. Const Vital Signs: 08/21/24 16:18 08/21/24 16:23 08/21/24 21:00 Temperature 98 F Temperature Source Temporal Pulse Rate 89 76 Respiratory Rate 16 18 Blood Pressure 202/101 H 184/92 H 173/87 H Blood Pressure Mean 134 122 115 Pulse Ox 99 96 Oxygen Delivery Method Room Air Room Air 08/21/24 21:30 Temperature Temperature Source Pulse Rate Respiratory Rate Blood Pressure 157/76 H Blood Pressure Mean 103 Pulse Ox Oxygen Delivery Method <Abelardo Reddy MD - Last Filed: 08/21/24 23:05> Physical Exam Const Vital Signs: 08/21/24 16:18 08/21/24 16:23 08/21/24 21:00 Temperature 98 F Temperature Source Temporal Pulse Rate 89 76 Respiratory Rate 16 18 Blood Pressure 202/101 H 184/92 H 173/87 H Blood Pressure Mean 134 122 115 Pulse Ox 99 96 Oxygen Delivery Method Room Air Room Air 08/21/24 21:30 Temperature Temperature Source Pulse Rate Respiratory Rate Blood Pressure 157/76 H Blood Pressure Mean 103 Pulse Ox Oxygen Delivery Method [facility] <Quentin MckeonASIF - Last Filed: 08/21/24 22:20> [facility] Lab Data Labs: Laboratory Results - last 24 hr 08/21/24 08/21/24 08/21/24 21:14 21:25 21:25 WBC Cancelled Corrected WBC Cancelled RBC Cancelled Hgb Cancelled Hct Cancelled MCV Cancelled MCH Cancelled MCHC Cancelled RDW Std Deviation Cancelled RDW Coeff of Dionne Cancelled Plt Count Cancelled MPV Cancelled Immature Gran % (Auto) Cancelled Neut % (Auto) Cancelled Lymph % (Auto) Cancelled [place] % (Auto) Cancelled Eos % (Auto) Cancelled Baso % (Auto) Cancelled Absolute Neuts (auto) Cancelled Absolute Lymphs (auto) Cancelled Total Counted Cancelled Neutrophils % (Manual) Cancelled Band Neutrophils % Cancelled Lymphocytes % (Manual) Cancelled Monocytes % (Manual) Cancelled Eosinophils % (Manual) Cancelled Basophils % (Manual) Cancelled Metamyelocytes % Cancelled Myelocytes % Cancelled Promyelocytes % Cancelled Blast Cells % Cancelled Plasma Cell % (Manual) Cancelled Other Cells % Cancelled Nucleated RBC % Cancelled Nucleated RBCs/100 WBC Cancelled Differential Comment Cancelled Diff Path Review Cancelled Hypersegmented Neuts Cancelled Atypical Lymphocytes Cancelled Reactive Lymphocytes Cancelled Smudge Cells Cancelled Toxic Granulation Cancelled Toxic Vacuolation Cancelled Dohle Bodies Cancelled Rhoda Rods Cancelled Platelet Estimate Cancelled Plt Morphology Comment Cancelled RBC Morphology Cancelled Cancelled Polychromasia Cancelled Hypochromasia Cancelled Basophilic Stippling Cancelled Anisocytosis Cancelled Microcytosis Cancelled Macrocytosis Cancelled Spherocytes Cancelled Sickle Cells Cancelled Target Cells Cancelled Tear Drop Cells Cancelled Ovalocytes Cancelled Stomatocytes Cancelled [place] Bodies Cancelled [place] Cells Cancelled Bite Cells Cancelled Crenated Cell Cancelled Acanthocytes (Spur) Cancelled Rouleaux Cancelled Schistocytes Cancelled Sodium 138 Potassium 4.2 Chloride 98 Carbon Dioxide 25.8 Anion Gap 14 BUN 11 Creatinine 1.27 H Estim Creat Clear Calc 37.09 L Est GFR (MDRD) Non-Af 42 L BUN/Creatinine Ratio 8.7 L Glucose 104 H Lactic Acid Calcium 10.4 Total Bilirubin 0.48 AST 27 ALT 22 Alkaline Phosphatase 140 H Total Protein 8.1 Albumin 4.9 H Globulin 3.2 Albumin/Globulin Ratio 1.5 Urine Color Yellow Urine Clarity Clear Urine pH 6.5 Ur Specific [place] 1.010 Urine Protein 30 H Urine Glucose (UA) Normal Urine Ketones Negative Urine Occult Blood Negative Urine Nitrite Negative Urine Bilirubin Negative Urine Urobilinogen Normal Ur Leukocyte Esterase Negative Urine RBC 0 SEEN Urine WBC 0 SEEN Ur Squamous Epith Cells 0-5 SEEN Urine Bacteria 1+ Urine Mucus 0 SEEN 08/21/24 08/21/24 21:34 22:03 WBC 6.7 Corrected WBC RBC 4.09 L Hgb 12.3 Hct 37.0 MCV 90.5 MCH 30.1 MCHC 33.2 RDW Std Deviation 41.7 RDW Coeff of Dionne 12.7 Plt Count 306 MPV 8.7 Immature Gran % (Auto) 0.300 Neut % (Auto) 52.6 Lymph % (Auto) 34.0 [place] % (Auto) 10.5 H Eos % (Auto) 1.8 Baso % (Auto) 0.8 Absolute Neuts (auto) 3.5 Absolute Lymphs (auto) 2.26 Total Counted Neutrophils % (Manual) Band Neutrophils % Lymphocytes % (Manual) Monocytes % (Manual) Eosinophils % (Manual) Basophils % (Manual) Metamyelocytes % Myelocytes % Promyelocytes % Blast Cells % Plasma Cell % (Manual) Other Cells % Nucleated RBC % 0 Nucleated RBCs/100 WBC Differential Comment Diff Path Review Hypersegmented Neuts Atypical Lymphocytes Reactive Lymphocytes Smudge Cells Toxic Granulation Toxic Vacuolation Dohle Bodies Rhoda Rods Platelet Estimate Plt Morphology Comment RBC Morphology Polychromasia Hypochromasia Basophilic Stippling Anisocytosis Microcytosis Macrocytosis Spherocytes Sickle Cells Target Cells Tear Drop Cells Ovalocytes Stomatocytes [place] Bodies [place] Cells Bite Cells Crenated Cell Acanthocytes (Spur) Rouleaux Schistocytes Sodium Potassium Chloride Carbon Dioxide Anion Gap BUN Creatinine Estim Creat Clear Calc Est GFR (MDRD) Non-Af BUN/Creatinine Ratio Glucose Lactic Acid 1.1 Calcium Total Bilirubin AST ALT Alkaline Phosphatase Total Protein Albumin Globulin Albumin/Globulin Ratio Urine Color Urine Clarity Urine pH Ur Specific [place] Urine Protein Urine Glucose (UA) Urine Ketones Urine Occult Blood Urine Nitrite Urine Bilirubin Urine Urobilinogen Ur Leukocyte Esterase Urine RBC Urine WBC Ur Squamous Epith Cells Urine Bacteria Urine Mucus Radiography Diagnostic Testing: Clinical Impression(s) from Imaging Studies Abdomen/Pelvis CT 08/21/24 21:35 IMPRESSION: NO ACUTE FINDINGS AT THE ABDOMEN OR PELVIS ON CONTRAST-ENHANCED CT. Reading Location: [facility] Treatment and Re-Evaluation :: Differential diagnosis includes however is not limited to: Bowel obstruction, constipation, significant stool burden, colitis, diverticulitis Patient is slightly hypertensive, in no obvious distress. Presenting to the emergency department for ongoing abdominal pain, constipation for the last 8 days. Patient will receive basic laboratory values as well as IV fluids, CT scan of the abdomen pelvis IV contrast. All radiologic examinations were read, reviewed by the emergency department attending. From these reads, a plan of care will be put in place. <Abelardo Reddy MD - Last Filed: 08/21/24 23:05> [facility] Narrative Medical decision making narrative: Dr. Reddy: Dr. Reddy: I have personally performed a face to face assessment of the patient and have reviewed the ZE Note. I performed a substantive portion of the visit including all aspects of the following. My comer findings include: History is patient presents for lack of bowel movement and concern for bowel obstruction on outpatient x-ray. Family states that it was approximately 1 week before she had a bowel movement on Tuesday. She was seen by another physician and her primary care provider's office who did x-rays yesterday. They were put on a liquid diet and told to come to the emergency department regarding a dilated small bowel loop with concern for early bowel obstruction. She was also diagnosed with a T12 fracture of undetermined age on that x-ray. Exam is afebrile. Vital signs noted. Nontoxic-appearing. Cardiovascular examination regular rate and rhythm. Lungs clear to auscultation bilaterally. Abdomen is soft, nontender without guarding or rebound. Positive bowel sounds. Medical Decision Making: Check labs. Check CT. I reviewed her laboratory work and she has normal white count. On her electrolyte panel, she has slightly elevated creatinine of 1.27 but when compared to prior labs she seems to be at her baseline. Lactic acid is normal so I have a low suspicion for ischemic bowel disease. I reviewed the radiology report of the CT of the abdomen and pelvis. There is no acute process, no obstruction. She does have moderate stool burden in the right colon. I discussed the findings with the patient and her family. I do not feel that she requires observation or admission as there is no evidence of a bowel obstruction as seen on the x-ray/concern on the x-ray. At this point in time, I do not feel that enemas would be effective as she has no stool in the colon. We discussed transit time for the stool to go across through the transverse colon, down the left colon and into the rectosigmoid area. Regarding her age indeterminate T12 compression fracture, she will continue Tylenol as she was told that opiates may cause constipation and decreased bowel motility. At this point in time she was discharged to follow-up with her primary care provider. Return instructions were reviewed. Disposition is discharged home in stable condition. Other additions or changes: [None] History & Record Review Discussion w/independent historian: Patient and Family Lab Data Attestation: I reviewed the patient's lab results. Labs: Laboratory Results - last 24 hr 08/21/24 08/21/24 08/21/24 21:14 21:25 21:25 WBC Cancelled Corrected WBC Cancelled RBC Cancelled Hgb Cancelled Hct Cancelled MCV Cancelled MCH Cancelled MCHC Cancelled RDW Std Deviation Cancelled RDW Coeff of Dionne Cancelled Plt Count Cancelled MPV Cancelled Immature Gran % (Auto) Cancelled Neut % (Auto) Cancelled Lymph % (Auto) Cancelled [place] % (Auto) Cancelled Eos % (Auto) Cancelled Baso % (Auto) Cancelled Absolute Neuts (auto) Cancelled Absolute Lymphs (auto) Cancelled Total Counted Cancelled Neutrophils % (Manual) Cancelled Band Neutrophils % Cancelled Lymphocytes % (Manual) Cancelled Monocytes % (Manual) Cancelled Eosinophils % (Manual) Cancelled Basophils % (Manual) Cancelled Metamyelocytes % Cancelled Myelocytes % Cancelled Promyelocytes % Cancelled Blast Cells % Cancelled Plasma Cell % (Manual) Cancelled Other Cells % Cancelled Nucleated RBC % Cancelled Nucleated RBCs/100 WBC Cancelled Differential Comment Cancelled Diff Path Review Cancelled Hypersegmented Neuts Cancelled Atypical Lymphocytes Cancelled Reactive Lymphocytes Cancelled Smudge Cells Cancelled Toxic Granulation Cancelled Toxic Vacuolation Cancelled Dohle Bodies Cancelled Rhoda Rods Cancelled Platelet Estimate Cancelled Plt Morphology Comment Cancelled RBC Morphology Cancelled Cancelled Polychromasia Cancelled Hypochromasia Cancelled Basophilic Stippling Cancelled Anisocytosis Cancelled Microcytosis Cancelled Macrocytosis Cancelled Spherocytes Cancelled Sickle Cells Cancelled Target Cells Cancelled Tear Drop Cells Cancelled Ovalocytes Cancelled Stomatocytes Cancelled [place] Bodies Cancelled [place] Cells Cancelled Bite Cells Cancelled Crenated Cell Cancelled Acanthocytes (Spur) Cancelled Rouleaux Cancelled Schistocytes Cancelled Sodium 138 Potassium 4.2 Chloride 98 Carbon Dioxide 25.8 Anion Gap 14 BUN 11 Creatinine 1.27 H Estim Creat Clear Calc 37.09 L Est GFR (MDRD) Non-Af 42 L BUN/Creatinine Ratio 8.7 L Glucose 104 H Lactic Acid Calcium 10.4 Total Bilirubin 0.48 AST 27 ALT 22 Alkaline Phosphatase 140 H Total Protein 8.1 Albumin 4.9 H Globulin 3.2 Albumin/Globulin Ratio 1.5 Urine Color Yellow Urine Clarity Clear Urine pH 6.5 Ur Specific [place] 1.010 Urine Protein 30 H Urine Glucose (UA) Normal Urine Ketones Negative Urine Occult Blood Negative Urine Nitrite Negative Urine Bilirubin Negative Urine Urobilinogen Normal Ur Leukocyte Esterase Negative Urine RBC 0 SEEN Urine WBC 0 SEEN Ur Squamous Epith Cells 0-5 SEEN Urine Bacteria 1+ Urine Mucus 0 SEEN 08/21/24 08/21/24 21:34 22:03 WBC 6.7 Corrected WBC RBC 4.09 L Hgb 12.3 Hct 37.0 MCV 90.5 MCH 30.1 MCHC 33.2 RDW Std Deviation 41.7 RDW Coeff of Dionne 12.7 Plt Count 306 MPV 8.7 Immature Gran % (Auto) 0.300 Neut % (Auto) 52.6 Lymph % (Auto) 34.0 [place] % (Auto) 10.5 H Eos % (Auto) 1.8 Baso % (Auto) 0.8 Absolute Neuts (auto) 3.5 Absolute Lymphs (auto) 2.26 Total Counted Neutrophils % (Manual) Band Neutrophils % Lymphocytes % (Manual) Monocytes % (Manual) Eosinophils % (Manual) Basophils % (Manual) Metamyelocytes % Myelocytes % Promyelocytes % Blast Cells % Plasma Cell % (Manual) Other Cells % Nucleated RBC % 0 Nucleated RBCs/100 WBC Differential Comment Diff Path Review Hypersegmented Neuts Atypical Lymphocytes Reactive Lymphocytes Smudge Cells Toxic Granulation Toxic Vacuolation Dohle Bodies Rhoda Rods Platelet Estimate Plt Morphology Comment RBC Morphology Polychromasia Hypochromasia Basophilic Stippling Anisocytosis Microcytosis Macrocytosis Spherocytes Sickle Cells Target Cells Tear Drop Cells Ovalocytes Stomatocytes [place] Bodies [place] Cells Bite Cells Crenated Cell Acanthocytes (Spur) Rouleaux Schistocytes Sodium Potassium Chloride Carbon Dioxide Anion Gap BUN Creatinine Estim Creat Clear Calc Est GFR (MDRD) Non-Af BUN/Creatinine Ratio Glucose Lactic Acid 1.1 Calcium Total Bilirubin AST ALT Alkaline Phosphatase Total Protein Albumin Globulin Albumin/Globulin Ratio Urine Color Urine Clarity Urine pH Ur Specific [place] Urine Protein Urine Glucose (UA) Urine Ketones Urine Occult Blood Urine Nitrite Urine Bilirubin Urine Urobilinogen Ur Leukocyte Esterase Urine RBC Urine WBC Ur Squamous Epith Cells Urine Bacteria Urine Mucus Radiography Diagnostic Testing: Clinical Impression(s) from Imaging Studies Abdomen/Pelvis CT 08/21/24 21:35 IMPRESSION: NO ACUTE FINDINGS AT THE ABDOMEN OR PELVIS ON CONTRAST-ENHANCED CT. Reading Location: [facility] Discharge Plan Triage Chief Complaint: Constipation ED Midlevel Provider: Quentin Mckeon ED Provider: Abelardo Reddy Dx/Rx/DC Orders Clinical Impression: Constipation, Back pain, T12 vertebral fracture Instructions: ED Fracture, Vertebral Compression, ED Constipation (Adult) Prescriptions: No Action famotidine 40 mg Tablet 40 mg PO QHS pantoprazole [address] For Susp In Packet 40 mg PO DAILY mirabegron [Myrbetriq] 50 mg Tablet Extended Release 24 Hr 50 mg PO DAILY ezetimibe 10 mg tablet 10 mg PO DAILY albuterol sulfate 90 mcg/actuation HFA aerosol inhaler 2 inh inhalation Q4H PRN (Reason: SOB,Wheezing) fluoxetine [Prozac] 20 mg capsule 20 mg PO DAILY Qty: 30 0RF carvedilol 6.25 mg Tablet 6.25 mg PO BIDCM Qty: 60 0RF acetaminophen 500 mg Tablet 1,000 mg PO Q8 Qty: 180 0RF levothyroxine 50 mcg Tablet 50 mcg PO DAILY@0600 Qty: 30 0RF ipratropium bromide 42 mcg (0.06 %) [place],Non-Aerosol 2 spray NASAL TID Qty: 1 0RF solifenacin 10 mg tablet 10 mg PO DAILY polyethylene glycol 3350 [Miralax] 17 gram/dose powder 17 g PO BID PRN (Reason: constipation) lactulose 10 gram/15 mL solution 15 ml PO PRN Primary Care Provider: Richard Cruz Referrals: Richard Cruz MD [Primary Care Provider] - Activity Restrictions/Additional Instructions: Your laboratory work was grossly unremarkable today. You do not have an elevated white count meaning infection and inflammation. The CT of your abdomen and pelvis did not show any bowel obstruction. You did have a moderate amount of stool in the right colon. It will take some time for it to travel through the transverse and left colon, to the rectosigmoid colon. Follow-up with your primary care provider in the next 1 to 2 days regarding your T12 compression fracture that was age-indeterminate as read on your outpatient x-ray. Continue Tylenol 650 mg every 4-6 hours as needed for pain. Opiates may cause decreased colonic activity. Return to the emergency department with fever, nausea and vomiting, new or worsening symptoms. Print Language: Turkish Disposition Disposition: Home, Self Care
[2024-08-21 21:30] VITALS: BP 157/76
[2024-08-21] MEDS: 0.9% Normal Saline (1000mL) 1,000 ML 999 ML IV (21:30)
--- NOTE | 2024-08-21 21:35 | CT_ITS ---
PROCEDURE: ABDOMEN/PELVIS W IV CONT ONLY 08/21/2024 REASON FOR EXAM: ABDOMINAL PAIN TECHNIQUE: Abdomen and pelvis CT with intravenous contrast. Coronal and Sagittal reconstruction series were provided. PATIENT PREPARATION: Per protocol ORAL CONTRAST TYPE: None. AMOUNT: mL CONTRAST: Isovue 370 VOLUME: 99 mL Not Provided Gauge IV One or more dose reduction techniques were used (e.g., Automated exposure control, adjustment of the mA and/or kV according to patient size, use of iterative reconstruction technique. RADIATION DOSE SUMMARY: CTDlvol: 34 mGy DLP: 1133 mGycm COMPARISON: None FINDINGS: Lung bases: Mild dependent atelectasis Liver: Normal size. No mass. Gallbladder: Surgically absent. Spleen: Normal size. Pancreas: Diffuse fatty atrophy. Adrenals: Unremarkable Kidneys: Choose on Bladder: Unremarkable Reproductive Organs: Prior hysterectomy. Adnexal regions are unremarkable. Bowel: Evaluation of the bowel loops are limited due to lack of oral contrast. Stomach is decompressed. No inflammatory changes of the small bowel. Mild stool burden within the right colon. No inflammatory changes of the large bowel. Appendix: The appendix is not clearly visualized. Lymph nodes: No lymphadenopathy. Vasculature: Atherosclerotic calcification of the abdominal aorta and branches. Peritoneum / Retroperitoneum: No free air or free fluid. Bones: Degenerative changes of the lumbar spine. CT/Abdomen/Pelvis W IV Cont ONLY IMPRESSION: NO ACUTE FINDINGS AT THE ABDOMEN OR PELVIS ON CONTRAST-ENHANCED CT. [facility]
[2024-08-21 21:44] LABS: Mucous, Urine 0 SEEN /hpf (<or=2+); Red Blood Cells-Urine 0 SEEN /hpf (0-5); White Blood Cells 0 SEEN /hpf (0-5)
[2024-08-21 21:48] LABS: Color, Urine Yellow (Yellow); Glucose, Dipstick Normal (Normal); Ketone-Dipstick Negative (Negative); Leukocyte Esterase-Dipstick Negative /ul (Negative); Nitrite-Dipstick Negative (Negative); Occult Blood-Urine Negative /ul (Negative); Protein-Dipstick 30 mg/dl (Negative); Urine Bilirubin Dipstick Negative (Negative); Urine Clarity Clear (Clear); Urine Urobilinogen Normal (Normal); Urine pH 6.5 (5.0 - 8.0)
[2024-08-21 22:07] LABS: Absolute Lymphocyte Count 2.26 X10^3/uL (0.83-4.51); Absolute Neutrophil Count 3.5 X10^3/uL (2.0-7.7); Basophil# 0.05 X10^3/uL; Basophil% 0.8 % (0-1); Eosinophil# 0.12 X10^3/uL; Eosinophils% 1.8 % (0-5); Hemoglobin 12.3 g/dL (12.0-15.0); Lymphocyte # 2.26 X10^3/ul (0.83-4.51); Mean Corp Hgb Conc 33.2 g/dL (32-36); Mean Corpuscular Hgb 30.1 pg (27.0-32.0); Mean Corpuscular Volume 90.5 fL (81-99); Mean Platelet Vol. 8.7 fl (6.2-12.0); Monocyte% 10.5 % (0-10); NRBC Flagged by Analyzer 0 % (0-5); Neutrophil % 52.6 % (47-70); Platelet Count 306 K/mm3 (150-450); RBC Distribution Width CV 12.7 % (11.6-14.6); RBC Distribution Width SD 41.7 fl (35.1-43.9); Red Blood Count 4.09 M/mm3 (4.2-5.4); White Blood Count 6.7 K/mm3 (4.4-11.0)
[2024-08-21 22:12] LABS: Bacteria 1+ /hpf (None Seen); Squamous Epithelial Cells - UA 0-5 SEEN /hpf (5-10)
[2024-08-21 22:25] LABS: ALB/GLOB Ratio 1.5 RATIO (0.9-2.4); AST(SGOT) 27 U/L (<=31); Alanine Aminotransfer ALT/SGPT 22 U/L (<=34); Albumin, Serum 4.9 g/dL (3.4-4.8); Alkaline Phosphatase 140 U/L (35-104); Anion Gap 14 (5-15); BUN 11 mg/dL (4-19); BUN/Creat Ratio 8.7 RATIO (10-20); Calcium,Total 10.4 mg/dL (7.6-11.0); Carbon Dioxide 25.8 mmol/L (21.0-32.0); Chloride 98 mmol/L (98-108); Creatinine, Serum 1.27 mg/dL (0.70-1.20); EST Glomerular Filtration Rate 42 (>60); Estimated Creatinine Clearance 37.09 ml/min (50-250); Globulin 3.2 g/dL (2.2-4.2); Glucose 104 mg/dL (70-99); Potassium 4.2 mmol/L (3.3-5.1); Protein, Total 8.1 g/dL (5.9-8.4); Sodium Level 138 mmol/L (133-145); Total Bilirubin 0.48 mg/dL (0.00-1.30)
[2024-08-21 22:25] LABS: Lactic Acid 1.1 mmol/L (0.0-2.0)
[2024-08-21 23:20] VITALS: BP 189/86; PULSE 79; RESP 18; TEMP 36.7; O2SAT 95
== END 2024-08-21 23:22 | disposition home or self-care (01) ==
PROVIDERS: Nurse Practitioner; Emergency Provider Emergency Medicine; PCP Family Medicine; Visit Provider Emergency Medicine
DX: K59.00 Constipation, unspecified (principal); M48.54XA Collapsed vertebra, not elsewhere classified, thoracic region, initial encounter for fracture; F03.93 Unspecified dementia, unspecified severity, with mood disturbance; I10 Essential (primary) hypertension; M54.50 Low back pain, unspecified; N32.81 Overactive bladder; K21.9 Gastro-esophageal reflux disease without esophagitis; E03.9 Hypothyroidism, unspecified; E78.00 Pure hypercholesterolemia, unspecified; G89.29 Other chronic pain; G47.33 Obstructive sleep apnea (adult) (pediatric); J45.909 Unspecified asthma, uncomplicated; Z90.49 Acquired absence of other specified parts of digestive tract; Z79.899 Other long term (current) drug therapy; Z79.890 Hormone replacement therapy; Z87.891 Personal history of nicotine dependence
CPT/HCPCS: 74177; 80053; 81001; 83605; 85025; 96360; 99282; Q9967; A4216

== ENCOUNTER 2024-08-24 18:59 | Emergency (ER) | payer MEDICARE, OTHER, SELFPAY ==
[2024-08-24 19:00] VITALS: BP 161/82; PULSE 78; RESP 16; O2SAT 96
[2024-08-24 19:01] VITALS: BP 156/88; TEMP 36.4; BMI 35.9
[2024-08-24 19:06] VITALS: O2SAT 95
--- NOTE | 2024-08-24 19:09 | ED.RN ---
PT LIVES ALONE AT HOME, WAS REACHING FOR THE PHONE AND LOST HER BALANCE. PT DENIES LOC OR LAC. SHE HAD A C2 FX FROM A YEAR AGO AND PERIODICALLY WEARS HER NECK BRACE. PT HAD A FALL A FEW WEEKS AGO THAT PTS DAUGHTER STATES SHE HAS A LUMBAR FX.
--- NOTE | 2024-08-24 19:46 | CT_ITS ---
PROCEDURE: SPINE LUMBAR WITHOUT CONTRAST 08/24/2024 REASON FOR EXAM: PAIN, TRAUMA TECHNIQUE: Lumbar spine CT without contrast. Coronal and Sagittal reconstruction series were provided. One or more dose reduction techniques were used (e.g., Automated exposure control, adjustment of the mA and/or kV according to patient size, use of iterative reconstruction technique COMPARISON: 08/14/2019 FINDINGS: Vertebrae: Mild wedge compression fracture of T12 which is unchanged. Alignment: Mild levoscoliosis centered at L2. 5 mm of anterolisthesis of L3 on L4 and L4 on L5 which is unchanged. L1-2: Moderate bilobed disc protrusion with vacuum disc formation produces moderate spinal stenosis and moderate bilateral neural foraminal stenosis. L2-3: Mild bilateral facet hypertrophy and severe ligamentum flavum hypertrophy. Moderate bilobed disc protrusion with vacuum disc formation produces moderate spinal stenosis and moderate bilateral neural foraminal stenosis. L3-4: Moderate bilateral facet hypertrophy and severe ligamentum flavum hypertrophy. 5 mm of anterolisthesis of L3 on L4 with a moderate bilobed disc protrusion produces severe spinal stenosis and moderate bilateral neural foraminal stenosis. L4-5: Moderate bilateral facet hypertrophy and ligamentum flavum hypertrophy. 5 mm of anterolisthesis of L4 on L5 with a mild broad disc protrusion produces moderate spinal stenosis and moderate bilateral neural foraminal stenosis. L5-S1: Mild broad disc protrusion produces mild spinal stenosis and mild bilateral neural foraminal stenosis. Sacrum: Unremarkable. Sacral stimulator. CT/Spine Lumbar without Contrast IMPRESSION: Chronic mild wedge compression fracture of T12 which is unchanged. No new fracture or subluxation. Mild levoscoliosis with degenerative disc disease, similar to the prior study. Reading Location: [id number]
--- NOTE | 2024-08-24 19:52 | EDS_ITS ---
HPI HPI - Fall History of Present Illness Chief Complaint: Fall Narrative Narrative: Chief complaint and HPI: Lumbar back pain. 79-year-old female with past medical history of sleep apnea, dementia, frequent falls, asthma presents for evaluation of lumbar back pain after mechanical fall. Patient states that she was reaching over her TV dinner stand to hang up the phone when she lost her balance and fell onto the carpeted floor. States she landed on her back. Was able to get a hold of the telephone to call family. Family called EMS. Patient denies hitting her head. No LOC. Not on blood thinners. States her only pain/injury is her low back. States she recently injured this from a mechanical fall a couple weeks ago, has a known fracture. She denies any fever, chills, shortness of breath, chest pain abdominal pain, nausea, vomiting, weakness, numbness/tingling, dysuria, headache, neck pain. On Chart review, patient was seen in our emergency department office 08/12/2024 for back pain after a fall. She had x-rays that show no acute fracture. She had a CT lumbar spine on 08/13 that showed no traumatic injury but degenerative changes, most prominent at L3-L4. Review of systems: See HPI Medications: As listed on the chart Allergies: As listed on the chart PFSH: Per chart Vital signs: As listed on the chart. Reviewed. Physical exam: Gen: A&O x3, NAD Head: Normocephalic, atraumatic Eyes: No sclera icterus, conjunctiva clear, PERRL, EOMI ENT: TMs clear BL, moist mucous membranes, no swelling/lacerations/blood in the mouth or the nares, No nasal septal hematoma, no facial tenderness Neck: Trachea midline, No JVD, Nontender full range of motion, CV: RRR, no murmurs, no chest wall TTP Resp: Lungs CTA BL, no w/r/c GI: Abd soft, non-distended, non-tender, no r/r/g Musc: Full ROM, no deformity, no spinal TTP, no daphne step-offs, tender to palpation in the bilateral lumbar paraspinal musculature Skin: Warm, dry, intact Neuro: Alert, oriented, grossly intact, sensation intact, GCS 15 Psych: Cooperative, appropriate mood and affect [facility] Medical History NAYA (obstructive sleep apnea) Noncompliance with CPAP treatment Venous insufficiency (chronic) (peripheral) Dementia Dehydration Neurogenic bladder Frequent falls Glucose intolerance (impaired glucose tolerance) Loss of hearing Post-menopausal Ambulates with cane Arthritis Back pain Injury of head and neck Asthma CPAP (continuous positive airway pressure) dependence History of pain when walking Wears glasses Depression Overactive bladder High cholesterol Easy bruising Non-smoker PONV (postoperative nausea and vomiting) GERD (gastroesophageal reflux disease) Hypothyroid Home Medications ?Medication ?Instructions ?Recorded ?Last Taken ?Type famotidine 40 mg tablet 40 mg PO QHS GERD 06/11/22 U nknown History mirabegron 50 mg tablet,extended 50 mg PO DAILY OAB Unknown History release 24 hr (Myrbetriq) pantoprazole 40 mg granules 40 mg PO DAILY GERD 08/23/23 History delayed-release for susp in packet ezetimibe 10 mg tablet 10 mg PO DAILY cholestorol 1 05/28/22 08/23/23 History albuterol sulfate 90 mcg/actuation 2 inh inhalation Q4 H PRN 08/23/23 Unknown History aerosol inhaler SOB,Wheezing acetaminophen 500 mg tablet 1,000 mg (2 x 500 mg) PO Q 8 pain 09/07/23 Unknown Rx #180 tabs carvedilol 6.25 mg tablet 6.25 mg PO BIDCM heart #60 t abs 09/07/23 Unknown Rx fluoxetine 20 mg capsule (Prozac) 20 mg PO DAILY mood #30 caps 09/07/23 Unknown Rx ipratropium bromide 42 mcg (0.06 2 spray NASAL TID #1 BOTTLE 09/07/23 Unknown Rx %) nasal spray levothyroxine 50 mcg tablet 50 mcg PO DAILY@0600 thyro id #30 09/07/23 Unknown Rx tabs solifenacin 10 mg tablet 10 mg PO DAILY bladder 08/12 Unknown History polyethylene glycol 3350 17 17 g PO BID PRN constipati on 08/13/24 Unknown Hi story gram/dose oral powder (Miralax) lactulose 10 gram/15 mL oral 15 ml PO PRN 08/21/24 Unk nown History solution Allergy/AdvReac Type Severity Reaction Status Date / Time rofecoxib (From Vioxx) Allergy Unknown Verified 08/21/24 16:19 Surgical History Hx of surgical biopsy History of bladder surgery History of partial hysterectomy History of appendectomy History of cholecystectomy H/O lateral meniscus repair of right knee Social History housing: house Smoking Status: Former smoker second hand exposure: Yes substance use type: does not use EXAM Physical Exam Const Vital Signs: 08/24/24 19:00 08/24/24 19:01 08/24/24 19:06 Temperature 97.5 F L Temperature Source Oral Pulse Rate 78 Respiratory Rate 16 Respiratory Effort Normal Respiratory Depth Normal Respiratory Pattern Normal Blood Pressure 161/82 H 156/88 H Blood Pressure Mean 108 110 Pulse Ox 96 95 Oxygen Delivery Method Room Air Room Air Room Air 08/24/24 21:00 08/24/24 21:19 Temperature 98.7 F Temperature Source Pulse Rate 82 81 Respiratory Rate 17 17 Respiratory Effort Respiratory Depth Respiratory Pattern Blood Pressure 131/65 H 121/76 H Blood Pressure Mean 87 91 Pulse Ox 92 99 Oxygen Delivery Method Room Air MDM MDM MDM Narrative Medical decision making narrative: 79-year-old female with past medical history of sleep apnea, dementia, frequent falls, asthma presents for evaluation of lumbar back pain after mechanical fall. History was taken by patient as well as medical record, see HPI. Denies hitting her head. No LOC. Not on blood thinners. See physical exam findings. Differential diagnosis includes but is not limited to lumbar spasm, lumbar strain, fracture. Given this was purely mechanical fall I do not think any laboratory workup is needed at this time. Morphine and Zofran ordered for symptoms. CT of the lumbar spine ordered. CT of the lumbar spine shows chronic mild wedge compression fracture of T12 which is unchanged. No new fracture or subluxation. Mild levoscoliosis with degenerative disc disease similar to prior study. On reevaluation, patient's pain has improved. She was able to ambulate in her emergency department with a walker without any difficulty. She is a walker at home. Patient comfortable with discharging home. Daughter comfortable with this decision as well. Follow-up with PCP. Given patient's history of frequent falls no muscle relaxers or narcotics will be given. Tylenol as needed for pain. Impression: 1. Mechanical fall 2. Lumbar back strain Radiography Diagnostic Testing: Clinical Impression(s) from Imaging Studies Lumbar Spine CT 08/24/24 19:46 IMPRESSION: Chronic mild wedge compression fracture of T12 which is unchanged. No new fracture or subluxation. Mild levoscoliosis with degenerative disc disease, similar to the prior study. Reading Location: [facility] Discharge Plan Triage Chief Complaint: Fall ED Provider: Ezequiel Keller Dx/Rx/DC Orders Clinical Impression: Accident due to mechanical fall without injury, Back spasm Instructions: Muscle Spasm, Falls Prevent Adjust Living Space Prescriptions: No Action famotidine 40 mg Tablet 40 mg PO QHS pantoprazole [address] For Susp In Packet 40 mg PO DAILY mirabegron [Myrbetriq] 50 mg Tablet Extended Release 24 Hr 50 mg PO DAILY ezetimibe 10 mg tablet 10 mg PO DAILY albuterol sulfate 90 mcg/actuation HFA aerosol inhaler 2 inh inhalation Q4H PRN (Reason: SOB,Wheezing) fluoxetine [Prozac] 20 mg capsule 20 mg PO DAILY Qty: 30 0RF carvedilol 6.25 mg Tablet 6.25 mg PO BIDCM Qty: 60 0RF acetaminophen 500 mg Tablet 1,000 mg PO Q8 Qty: 180 0RF levothyroxine 50 mcg Tablet 50 mcg PO DAILY@0600 Qty: 30 0RF ipratropium bromide 42 mcg (0.06 %) Esko,Non-Aerosol 2 spray NASAL TID Qty: 1 0RF solifenacin 10 mg tablet 10 mg PO DAILY polyethylene glycol 3350 [Miralax] 17 gram/dose powder 17 g PO BID PRN (Reason: constipation) lactulose 10 gram/15 mL solution 15 ml PO PRN Primary Care Provider: Richard Cruz Referrals: Richard Cruz MD [Primary Care Provider] - 3-5 Days Activity Restrictions/Additional Instructions: Tylenol and Motrin as needed for pain. Follow-up with primary care physician. Return back to the ED if symptoms change or worsen. Print Language: Danish Disposition Disposition: Home, Self Care Discharge Date/Time: 08/24/24 21:31
[2024-08-24] MEDS: Ondansetron 4 MG/2 ML Vial IV (20:41)
[2024-08-24] MEDS: Morphine 2 MG/ML Syringe IV (20:41)
[2024-08-24 21:00] VITALS: BP 131/65; PULSE 82; RESP 17; O2SAT 92
[2024-08-24 21:19] VITALS: BP 121/76; PULSE 81; RESP 17; TEMP 37.1; O2SAT 99
== END 2024-08-24 21:31 | disposition home or self-care (01) ==
PROVIDERS: Emergency Provider Surgery; PCP Family Medicine; Visit Provider Surgery
DX: S39.012A Strain of muscle, fascia and tendon of lower back, initial encounter (principal); M48.54XA Collapsed vertebra, not elsewhere classified, thoracic region, initial encounter for fracture; F03.93 Unspecified dementia, unspecified severity, with mood disturbance; W01.0XXA Fall on same level from slipping, tripping and stumbling without subsequent striking against object, initial encounter; E78.00 Pure hypercholesterolemia, unspecified; E03.9 Hypothyroidism, unspecified; I87.2 Venous insufficiency (chronic) (peripheral); K21.9 Gastro-esophageal reflux disease without esophagitis; N32.81 Overactive bladder; G47.33 Obstructive sleep apnea (adult) (pediatric); J45.909 Unspecified asthma, uncomplicated; Z91.81 History of falling; Z79.899 Other long term (current) drug therapy; Z79.890 Hormone replacement therapy; Z87.891 Personal history of nicotine dependence
CPT/HCPCS: 72131; 96374; 96375; 99285; A4216; J2405

== ENCOUNTER 2024-10-09 19:58 | Inpatient (IN) | payer MEDICARE, OTHER, SELFPAY ==
[2024-10-09] VITALS (8 sets, daily range): BP systolic 137–158; BP diastolic 71–89; PULSE 87–101; RESP 18–31; TEMP 36.8–36.9; O2SAT 81–96; BMI 33.5
--- NOTE | 2024-10-09 20:19 | EKG12_ITS ---
Test Reason : SOB Blood Pressure : */* mmHG Vent. Rate : 95 BPM Atrial Rate : 95 BPM P-R Int : 148 ms QRS Dur : 84 ms QT Int : 426 ms P-R-T Axes : 2 -4 67 degrees QTcB Int : 535 ms Normal sinus rhythm ST & T wave abnormality, consider lateral ischemia Abnormal ECG Confirmed by REGINLADO THOMAS, GWEN ([id number]), food editor TIGIST DORADO ([id number]) on 10/15/2024 7:09:37 AM Referred By: Confirmed By: GWEN HAIR MD
--- NOTE | 2024-10-09 20:25 | EX.ED.DYSGE1 ---
HPI History of Present Illness Chief Complaint: Weakness Narrative Narrative: Chief complaint and HPI: Confusion and weakness. 79-year-old female with past medical history of recurrent UTIs, HTN, NAYA, hypothyroidism presents for evaluation of confusion and weakness. History taken by patient as well as daughter. Patient states that she has been feeling generally unwell since Tuesday. States she has had progressive weakness. Endorses decreased p.o. intake. Patient endorses chronic cough. Denies any fever, shortness of breath, chest pain abdominal pain, nausea, vomiting, dysuria. Patient is slow to respond and intermittently confused with her story. Daughter states this is abnormal for her. States patient is usually alert and oriented x 3. Daughter states that she took the patient's vitals at home and found her oxygen to be in the 80s. Daughter states she smell of urine and is concerned for UTI. Review of systems: See HPI Medications: As listed on the chart Allergies: As listed on the chart PFSH: Per chart Vital signs: As listed on the chart. Reviewed. Physical exam: Gen: A&O x2, NAD Head: Normocephalic, atraumatic Eyes: No sclera icterus, conjunctiva clear, PERRL ENT: Dry mucous membranes Neck: Trachea midline, No JVD CV: RRR, no murmurs, no peripheral edema Resp: Lungs CTA BL but diminished in the bases, no w/r/c, requiring 3 L nasal cannula she was hypoxic at 87% on room air , + productive cough GI: Abd soft, non-distended, non-tender, no r/r/g Musc: Moves all extremities but generalized weakness, no deformity Skin: Warm, dry Neuro: Alert, grossly intact, sensation intact Psych: Cooperative, appropriate mood and affect [facility] Medical History Obesity (BMI 30-39.9) Sleep apnea NAYA (obstructive sleep apnea) Noncompliance with CPAP treatment Venous insufficiency (chronic) (peripheral) Dementia Dehydration Neurogenic bladder Frequent falls Glucose intolerance (impaired glucose tolerance) Loss of hearing Post-menopausal Ambulates with cane Arthritis Back pain Injury of head and neck Asthma CPAP (continuous positive airway pressure) dependence History of pain when walking Wears glasses Depression Overactive bladder High cholesterol Easy bruising Non-smoker PONV (postoperative nausea and vomiting) GERD (gastroesophageal reflux disease) Hypothyroid Home Medications ?Medication ?Instructions ?Recorded ?Last Taken ?Type famotidine 40 mg tablet 40 mg PO QHS GERD 06/11/22 Unknown History mirabegron 50 mg tablet,extended 50 mg PO DAILY OAB 06/11/22 Unknown History release 24 hr (Myrbetriq) pantoprazole 40 mg granules 40 mg PO DAILY GERD 06/11/22 08/23/23 History delayed-release for susp in packet ezetimibe 10 mg tablet 10 mg PO DAILY cholestorol 03/28/23 08/23/23 History albuterol sulfate 90 mcg/actuation 2 inh inhalation Q4H PRN 08/23/23 Unknown History aerosol inhaler SOB,Wheezing acetaminophen 500 mg tablet 1,000 mg (2 x 500 mg) PO Q8 pain 09/07/23 Unknown Rx #180 tabs carvedilol 6.25 mg tablet 6.25 mg PO BIDCM heart #60 tabs 09/07/23 Unknown Rx fluoxetine 20 mg capsule (Prozac) 20 mg PO DAILY mood #30 caps 09/07/23 Unknown Rx levothyroxine 50 mcg tablet 50 mcg PO DAILY@0600 thyroid #30 09/07/23 Unknown Rx tabs solifenacin 10 mg tablet 10 mg PO DAILY bladder 08/12/24 Unknown History polyethylene glycol 3350 17 17 g PO BID PRN constipation 08/13/24 Unknown History gram/dose oral powder (Miralax) alendronate 70 mg tablet 70 mg PO QWEEK 10/09/24 Unknown History tramadol 50 mg tablet 50 mg PO Q8H PRN PRN pain 10/09/24 Unknown History Allergy/AdvReac Type Severity Reaction Status Date / Time rofecoxib (From Vioxx) Allergy Unknown Verified 10/09/24 20:01 Family History (Updated 10/09/24 @ 22:[address] Ayde Powell MD) Mother Heart disease Father Heart disease Surgical History Hx of surgical biopsy History of bladder surgery History of partial hysterectomy History of appendectomy History of cholecystectomy H/O lateral meniscus repair of right knee Social History housing: house Smoking Status: Former smoker second hand exposure: Yes substance use type: does not use EXAM Physical Exam Const Vital Signs: 10/09/24 19:58 10/09/24 20:30 10/09/24 20:39 Temperature 98.3 F 98.3 F Temperature Source Oral Oral Pulse Rate 101 H 98 93 Respiratory Rate 18 22 H 31 H Respiratory Effort Respiratory Pattern Blood Pressure 158/89 H 154/85 H Blood Pressure Mean 112 108 Pulse Ox 81 94 Oxygen Delivery Method Room Air Nasal Cannula Oxygen Flow Rate (L/min) 3 10/09/24 20:45 10/09/24 20:47 10/09/24 21:01 Temperature 98.4 F Temperature Source Oral Pulse Rate 87 Respiratory Rate 26 H Respiratory Effort Labored Respiratory Pattern Tachypnea Blood Pressure 144/71 H Blood Pressure Mean 95 Pulse Ox 92 95 Oxygen Delivery Method Nasal Cannula Nasal Cannula Oxygen Flow Rate (L/min) 3 3 10/09/24 22:00 Temperature 98.4 F Temperature Source Oral Pulse Rate 89 Respiratory Rate 23 H Respiratory Effort Respiratory Pattern Blood Pressure 150/75 H Blood Pressure Mean 100 Pulse Ox 96 Oxygen Delivery Method Nasal Cannula Oxygen Flow Rate (L/min) 3 MDM MDM MDM Narrative Medical decision making narrative: 79-year-old female with past medical history of recurrent UTIs, HTN, NAYA, hypothyroidism presents for evaluation of confusion and weakness. Onset of symptoms Tuesday and progressively worsening. Associated symptom is decreased p.o. intake and hypoxia. On presentation patient is 87% on room air. Placed on 3 L nasal cannula with increase in oxygen saturations. Differential diagnosis includes but is not limited to pneumonia, UTI, viral illness, dehydration, electrolyte abnormality, encephalopathy. NS bolus and DuoNeb ordered. Infectious workup ordered. Shortly after workup was ordered patient triggered sepsis with her encephalopathy, tachycardia, tachypnea, hypoxia. Patient was made a sepsis alert. Rocephin ordered for suspected UTI. Patient does not require 30 cc/kg bolus given that she is not hypotensive. VBG without respiratory or metabolic acidosis, no hypercapnia as a reason for encephalopathy. CBC without leukocytosis or anemia. Coagulation panel unremarkable. CMP shows baseline renal insufficiency with mild dehydration. No transaminitis. Lactic acid unremarkable. Troponin mildly elevated at 17, was previously 22 in August, will obtain delta. Patient not having chest pain. UA positive for UTI. Urine culture already sent and Rocephin already given. Previous urine culture grew out E. coli that was sensitive. Chest x-ray was personally reviewed and interpreted by me, ED physician. Small pleural effusions with vascular congestion. Atelectasis versus consolidation in the left base. Radiology in agreement. Given concern for possible pneumonia with her hypoxia, azithromycin added. Patient will warrant admission. Patient updated about the results and confirmed understanding. Patient discussed with the hospitalist who accepted admission. EKG: Interpreted by me/EM physician: EKG shows normal sinus rhythm with nonspecific ST changes. Heart rate 95. Impression: 1. Acute hypoxia requiring nasal cannula 2. Possible community-acquired pneumonia 3. UTI 4. Encephalopathy, multi factorial secondary to above 5. Renal insufficiency with mild dehydration Lab Data Labs: Laboratory Results - last 24 hr 10/09/24 10/09/24 10/09/24 20:30 21:30 21:38 WBC 11.0 RBC 4.58 Hgb 13.8 Hct 41.3 MCV 90.2 MCH 30.1 MCHC 33.4 RDW Std Deviation 42.2 RDW Coeff of Dionne 13.0 Plt Count 317 MPV 9.9 Immature Gran % (Auto) 0.600 Neut % (Auto) 71.4 H Lymph % (Auto) 16.3 L [place] % (Auto) 10.1 H Eos % (Auto) 1.1 Baso % (Auto) 0.5 Absolute Neuts (auto) 7.9 H Absolute Lymphs (auto) 1.79 Nucleated RBC % 0 PT 13.7 INR 1.0 APTT 25.5 Sodium 133 Potassium 4.0 Chloride 97 L Carbon Dioxide 20.2 L Anion Gap 16 H BUN 20 H Creatinine 1.22 H Estim Creat Clear Calc 37.53 L Est GFR (MDRD) Non-Af 45 L BUN/Creatinine Ratio 16.6 Glucose 110 H Lactic Acid 1.0 Calcium 9.4 Total Bilirubin 0.55 AST 22 ALT 13 Alkaline Phosphatase 152 H Troponin T High Sens 17 H D NT pro BNP II 331 Total Protein 7.1 Albumin 4.2 Globulin 2.9 Albumin/Globulin Ratio 1.5 Urine Color Yellow Urine Clarity Cloudy Urine pH 6.0 Ur Specific [place] 1.020 Urine Protein 30 H Urine Glucose (UA) Normal Urine Ketones 15 H Urine Occult Blood 10 H Urine Nitrite Positive H Urine Bilirubin Negative Urine Urobilinogen 1 H Ur Leukocyte Esterase 500 H Urine RBC 0-5 SEEN Urine WBC 50-100 SEEN Ur Squamous Epith Cells 5-10 SEEN Ur Transition Epith Cell 0-5 SEEN Urine Bacteria 4+ Urine Mucus 0 SEEN ABG Data ABG results: ABG 10/09/24 20:37 Specimen Type ASHLEY Sample Site Not entered O2 % 3.0 VBG pH 7.48 H VBG pO2 60 H VBG HCO3 23 VBG Total CO2 24 VBG O2 Sat (Calc) 93 H VBG Base Excess -1 POC Mix VBG pCO2 Pt Tmp 30.4 L O2 Delivery Device Cannula Radiography Diagnostic Testing: Clinical Impression(s) from Imaging Studies Chest X-Ray 10/09/24 21:15 IMPRESSION: Left base opacity likely reflecting atelectasis however consolidation or aspiration not excluded. Mild pulmonary vascular congestion and interstitial edema. Stable mild cardiomegaly. Reading Location: [id number] Discharge Plan Triage Chief Complaint: Weakness ED Provider: Ezequiel Keller Dx/Rx/DC Orders Prescriptions: No Action famotidine 40 mg Tablet 40 mg PO QHS pantoprazole [address] For Susp In Packet 40 mg PO DAILY mirabegron [Myrbetriq] 50 mg Tablet Extended Release 24 Hr 50 mg PO DAILY ezetimibe 10 mg tablet 10 mg PO DAILY albuterol sulfate 90 mcg/actuation HFA aerosol inhaler 2 inh inhalation Q4H PRN (Reason: SOB,Wheezing) fluoxetine [Prozac] 20 mg capsule 20 mg PO DAILY Qty: 30 0RF carvedilol 6.25 mg Tablet 6.25 mg PO BIDCM Qty: 60 0RF acetaminophen 500 mg Tablet 1,000 mg PO Q8 Qty: 180 0RF levothyroxine 50 mcg Tablet 50 mcg PO DAILY@0600 Qty: 30 0RF solifenacin 10 mg tablet 10 mg PO DAILY polyethylene glycol 3350 [Miralax] 17 gram/dose powder 17 g PO BID PRN (Reason: constipation) alendronate 70 mg tablet 70 mg PO QWEEK tramadol 50 mg tablet 50 mg PO Q8H PRN PRN (Reason: pain) Primary Care Provider: Richard Cruz Referrals: Richard Cruz MD [Primary Care Provider] - Print Language: Russian
[2024-10-09 20:42] LABS: Blood Gas Specimen Type VEN; O2 Delivery Device Cannula; SITE Not entered; VBG BASE EXCESS -1 mmol/L (-1.0-3.5); VBG Bicarbonate 23 mmol/L (22-26); VBG PO2 60 mmHg (25-40); VBG SO2 93 % (50-70); VBG TCO2 24 mmol/L (23-33); VBG pCO2 30.4 mmHg (41-51); VBG pH 7.48 (7.32-7.42)
[2024-10-09] MEDS: Ipratropium/Albuterol Sulfate 3 ML AMPUL.NEB INHALATION (20:42)
[2024-10-09] MEDS: 0.9% Normal Saline (1000mL) 1,000 ML 1000 ML IV (20:43)
[2024-10-09 20:48] LABS: Absolute Lymphocyte Count 1.79 X10^3/uL (0.83-4.51); Absolute Neutrophil Count 7.9 X10^3/uL (2.0-7.7); Basophil# 0.06 X10^3/uL; Basophil% 0.5 % (0-1); Eosinophil# 0.12 X10^3/uL; Eosinophils% 1.1 % (0-5); Hematocrit 41.3 % (37-47); Hemoglobin 13.8 g/dL (12.0-15.0); Lymphocyte # 1.79 X10^3/ul (0.83-4.51); Lymphocyte % 16.3 % (19-41); Mean Corp Hgb Conc 33.4 g/dL (32-36); Mean Corpuscular Hgb 30.1 pg (27.0-32.0); Mean Corpuscular Volume 90.2 fL (81-99); Mean Platelet Vol. 9.9 fl (6.2-12.0); Monocyte# 1.11 X10^3/uL; Monocyte% 10.1 % (0-10); NRBC Flagged by Analyzer 0 % (0-5); Neutrophil # 7.85 X10^3/uL (2.7-7.7); Neutrophil % 71.4 % (47-70); Platelet Count 317 K/mm3 (150-450); RBC Distribution Width SD 42.2 fl (35.1-43.9); Red Blood Count 4.58 M/mm3 (4.2-5.4)
[2024-10-09 21:08] LABS: ALB/GLOB Ratio 1.5 RATIO (0.9-2.4); AST(SGOT) 22 U/L (<=31); Alanine Aminotransfer ALT/SGPT 13 U/L (<=34); Albumin, Serum 4.2 g/dL (3.4-4.8); Alkaline Phosphatase 152 U/L (35-104); Anion Gap 16 (5-15); BUN 20 mg/dL (4-19); BUN/Creat Ratio 16.6 RATIO (10-20); Calcium,Total 9.4 mg/dL (7.6-11.0); Carbon Dioxide 20.2 mmol/L (21.0-32.0); Chloride 97 mmol/L (98-108); Creatinine, Serum 1.22 mg/dL (0.70-1.20); EST Glomerular Filtration Rate 45 (>60); Estimated Creatinine Clearance 37.53 ml/min (50-250); Globulin 2.9 g/dL (2.2-4.2); Glucose 110 mg/dL (70-99); Protein, Total 7.1 g/dL (5.9-8.4); Sodium Level 133 mmol/L (133-145); Total Bilirubin 0.55 mg/dL (0.00-1.30)
--- NOTE | 2024-10-09 21:15 | RAD_ITS ---
PROCEDURE: CHEST PA AND LATERAL 10/09/2024 REASON FOR EXAM: COUGH TECHNIQUE: Frontal and lateral views of the chest. COMPARISON: 08/13/2024 FINDINGS: Left base opacity likely reflecting atelectasis however consolidation not excluded.Mild pulmonary vascular congestion and interstitial edema. Bibasilar subsegmental atelectasis. Stable mild cardiomegaly. No pleural effusion or pneumothorax. RAD/Chest PA and Lateral IMPRESSION: Left base opacity likely reflecting atelectasis however consolidation or aspira tion not excluded. Mild pulmonary vascular congestion and interstitial edema. Stable mild cardiom egaly. Reading Location: [id number]
[2024-10-09 21:25] LABS: Troponin T High Sensitivity 17 ng/L (<=14)
[2024-10-09 21:46] LABS: Mucous, Urine 0 SEEN /hpf (<or=2+)
[2024-10-09 21:49] LABS: Partial Thromboplast Time 25.5 Seconds (24.1-36.2); Prothrombin Time (Protime)PT. 13.7 SECONDS (11.7-14.9)
[2024-10-09 21:50] LABS: Color, Urine Yellow (Yellow); Glucose, Dipstick Normal (Normal); Ketone-Dipstick 15 mg/dl (Negative); Leukocyte Esterase-Dipstick 500 /ul (Negative); Nitrite-Dipstick Positive (Negative); Occult Blood-Urine 10 /ul (Negative); Protein-Dipstick 30 mg/dl (Negative); Urine Bilirubin Dipstick Negative (Negative); Urine Clarity Cloudy (Clear); Urine Urobilinogen 1 mg/dl (Normal)
[2024-10-09] MEDS: Ceftriaxone 1 GM/50 ML BAG IV (21:55)
[2024-10-09 22:10] LABS: White Blood Cells 50-100 SEEN /hpf (0-5)
[2024-10-09 22:12] LABS: Bacteria 4+ /hpf (None Seen); Red Blood Cells-Urine 0-5 SEEN /hpf (0-5); Squamous Epithelial Cells - UA 5-10 SEEN /hpf (5-10); Transitional Epithelial - Ur 0-5 SEEN /hpf (0-5)
[2024-10-09] MEDS: Azithromycin 500 MG in 0.9% Normal Saline (250mL Bag) 250 ML 255 MG IV (22:24)
[2024-10-09 22:31] LABS: Pro- Brain NATRIURETIC PEPTIDE 331 pg/mL (<=1800)
--- NOTE | 2024-10-09 22:35 | PCM.HP.STD ---
HPI - General General Date of Admission: 10/09/24 Date of Service: 10/09/24 Chief Complaint: Confusion, weakness, foul smelling urine, hypoxia noted at home. HPI Narrative The patient is an 79 y/o F w/ PMHx: CKD stage III unclear subtype per GFR trending, Obesity, NAYA noncompliant with PAP therapy, Frequent urinary tract infections with history of neurogenic bladder, Dementia unclear type with unclear behavioral disturbance history, Chart reported history of frequent falls, Asthma, GERD, HLD, Anxiety and Depression, Hypothyroidism, Former tobacco use who presents to the [facility] ED on 10/09/2024 with reported confusion and weakness with general malaise and fatigue not feeling well since Tuesday however she has progressively worsened with decreased oral intake with no recent URI type symptoms, cough, fever, chills, abdominal pain, nausea, emesis or any urinary symptoms but given concerns family brought her in for evaluation. Daughter notes that she has been slow to respond and has intermittently been more confused which is not normal for her. Patient's daughter reportedly also checked her vitals at home and noted that she was mildly hypoxic in the 80s. She also was concern for foul-smelling urine prompting ED evaluation additionally. Workup in the ED included T98.3, heart rate 101, BP 158/89, respiratory rate 18, 81% on room air upon initial presentation with most recent repeat evaluation with T98.3, heart rate 93, BP 154/85, respiratory rate 31, 92% on 3 L nasal cannula, CBC with WBC 11, hemoglobin 13.8, platelet 317 with left shift, VBG with pH 7.48, PO260, O2 saturation 93% on nasal cannula, CMP with chloride 97, carbon dioxide 20.2, anion gap 16, BUN/creatinine 20/1.22, GFR 45, glucose 110, alk phos 152, lactic acid 1.0, urinalysis concerning for urinary tract infection, blood culture x 2 pending per ED, urine culture pending per ED, rapid SARS COVID/influenza/RSV PCR negative, chest x-ray with left base opacity, mild pulmonary vascular congestion and interstitial edema, stable mild cardiomegaly in the ED patient ministered 1 L normal saline, DuoNeb therapy, azithromycin 500 mg IV x 1, Rocephin 1 g IV x 1. [facility] Medical History Obesity (BMI 30-39.9) Sleep apnea NAYA (obstructive sleep apnea) Noncompliance with CPAP treatment Venous insufficiency (chronic) (peripheral) Dementia Dehydration Neurogenic bladder Frequent falls Glucose intolerance (impaired glucose tolerance) Loss of hearing Post-menopausal Ambulates with cane Arthritis Back pain Injury of head and neck Asthma CPAP (continuous positive airway pressure) dependence History of pain when walking Wears glasses Depression Overactive bladder High cholesterol Easy bruising Non-smoker PONV (postoperative nausea and vomiting) GERD (gastroesophageal reflux disease) Hypothyroid Home Medications ?Medication ?Instructions ?Recorded ?Last Taken ?Type famotidine 40 mg tablet 40 mg PO QHS GERD 06/11/22 Unknown History mirabegron 50 mg tablet,extended 50 mg PO DAILY OAB 06/11/22 Unknown History release 24 hr (Myrbetriq) pantoprazole 40 mg granules 40 mg PO DAILY GERD 06/11/22 08/23/23 History delayed-release for susp in packet ezetimibe 10 mg tablet 10 mg PO DAILY cholestorol 03/28/23 08/23/23 History albuterol sulfate 90 mcg/actuation 2 inh inhalation Q4H PRN 08/23/23 Unknown History aerosol inhaler SOB,Wheezing acetaminophen 500 mg tablet 1,000 mg (2 x 500 mg) PO Q8 pain 09/07/23 Unknown Rx #180 tabs carvedilol 6.25 mg tablet 6.25 mg PO BIDCM heart #60 tabs 09/07/23 Unknown Rx fluoxetine 20 mg capsule (Prozac) 20 mg PO DAILY mood #30 caps 09/07/23 Unknown Rx levothyroxine 50 mcg tablet 50 mcg PO DAILY@0600 thyroid #30 09/07/23 Unknown Rx tabs solifenacin 10 mg tablet 10 mg PO DAILY bladder 08/12/24 Unknown History polyethylene glycol 3350 17 17 g PO BID PRN constipation 08/13/24 Unknown History gram/dose oral powder (Miralax) alendronate 70 mg tablet 70 mg PO QWEEK 10/09/24 Unknown History tramadol 50 mg tablet 50 mg PO Q8H PRN PRN pain 10/09/24 Unknown History Allergy/AdvReac Type Severity Reaction Status Date / Time rofecoxib (From Vioxx) Allergy Unknown Verified 10/09/24 20:01 Family History (Updated 10/09/24 @ 22:[address] Ayde Powell MD) Mother Heart disease Father Heart disease Surgical History Hx of surgical biopsy History of bladder surgery History of partial hysterectomy History of appendectomy History of cholecystectomy H/O lateral meniscus repair of right knee Social History housing: house Smoking Status: Former smoker second hand exposure: Yes substance use type: does not use ROS ROS Narrative Admission Review of Systems: CONSTITUTIONAL: No weight loss, fever, chills, weakness or fatigue. HEENT: Eyes: No visual loss, blurred vision, double vision or yellow sclerae. Ears, Nose, Throat: No hearing loss, sneezing, congestion, runny nose or sore throat. SKIN: No rash or itching, lesions, wounds. CARDIOVASCULAR: No chest pain, chest pressure or chest discomfort, palpitations, edema, orthopnea, syncopal events. RESPIRATORY: No shortness of breath, cough or sputum, wheezing, hemoptysis. GASTROINTESTINAL: + Decreased oral intake. No nausea, vomiting or diarrhea, abdominal pain, melena, BRBPR. GENITOURINARY: + Increased urinary frequency with foul-smelling urine. No dysuria, urgency or retention. NEUROLOGICAL: + Acute confusion on chronic with underlying dementia history. No headache, dizziness, syncope, paralysis, ataxia, numbness or tingling in the extremities, focal weakness, change in bowel or bladder control, seizure. MUSCULOSKELETAL: + muscle, back pain, joint pain or stiffness. HEMATOLOGIC: No anemia. + Easy bleeding/bruising. LYMPHATICS: No enlarged nodes. No history of splenectomy. PSYCHIATRIC: + History of anxiety and depression. ENDOCRINOLOGIC: No reports of sweating, cold or heat intolerance. No polyuria or polydipsia. ALLERGIES: + History of asthma. Vital Signs Vital Signs Vital Signs: 10/09/24 19:58 10/09/24 20:30 10/09/24 20:39 Temperature 98.3 F 98.3 F Temperature Source Oral Oral Pulse Rate 101 H 98 93 Respiratory Rate 18 22 H 31 H Respiratory Effort Respiratory Pattern Blood Pressure 158/89 H 154/85 H Blood Pressure Mean 112 108 Pulse Ox 81 94 Oxygen Delivery Method Room Air Nasal Cannula Oxygen Flow Rate (L/min) 3 10/09/24 20:45 10/09/24 20:47 10/09/24 21:01 Temperature 98.4 F Temperature Source Oral Pulse Rate 87 Respiratory Rate 26 H Respiratory Effort Labored Respiratory Pattern Tachypnea Blood Pressure 144/71 H Blood Pressure Mean 95 Pulse Ox 92 95 Oxygen Delivery Method Nasal Cannula Nasal Cannula Oxygen Flow Rate (L/min) 3 3 10/09/24 22:00 Temperature 98.4 F Temperature Source Oral Pulse Rate 89 Respiratory Rate 23 H Respiratory Effort Respiratory Pattern Blood Pressure 150/75 H Blood Pressure Mean 100 Pulse Ox 96 Oxygen Delivery Method Nasal Cannula Oxygen Flow Rate (L/min) 3 Weight Weight: 189 lb Body Mass Index (BMI) 33.5 Physical Exam Narrative Physical Examination: General: Awake, alert, oriented to self, place, family present, which is improved per discussion with family present and cooperative, seated upright in the ED bed, fatigued but no acute distress. Skin: Normal color, normal turgor, no icterus, no cyanosis except occasional stage ecchymoses, abrasion. HEENT: AT/NC, EOMI, PERRLA, moderately dry MM, no carotid bruits or JVD noted. Lungs: Mild diminished, greater bases, no evidence of any distress, supplemental oxygen currently in place, no rales, ronchi or wheezing. Heart: Regular rate and rhythm; no gallop, rub audible. Abdomen: Soft, mild suprapubic discomfort with palpation otherwise nontender to palpation, no evidence of distention, distant BS, no appreciated HSM. Extremities: No cyanosis, no clubbing, mild ankle not markedly pitting edema. Neurological: Patient awake, alert, oriented as noted, cognitive function improving but still not baseline intact per discussion with family but does have underlying dementia of note, pupils equally reactive to light and accommodation, cranial nerves grossly normal, moving all 4 extremities, no focal deficits, strength moderately to severely globally decreased. Psychiatric: Affect appears flat, fatigued, no acute evidence of depressive or anxiety feelings. But does have underlying history Results Lab / Micro Data 10/09/24 20:30 10/09/24 20:30 Labs: Laboratory Results - last 24 hr 10/09/24 20:30: WBC 11.0, RBC 4.58, Hgb 13.8, Hct 41.3, MCV 90.2, MCH 30.1, MCHC 33.4, RDW Std Deviation 42.2, RDW Coeff of [place] 13.0, Plt Count 317, MPV 9.9, Immature Gran % (Auto) 0.600, Neut % (Auto) 71.4 H, Lymph % (Auto) 16.3 L, [place] % (Auto) 10.1 H, Eos % (Auto) 1.1, Baso % (Auto) 0.5, Absolute Neuts (auto) 7.9 H, Absolute Lymphs (auto) 1.79, Nucleated RBC % 0, Sodium 133, Potassium 4.0, Chloride 97 L, Carbon Dioxide 20.2 L, Anion Gap 16 H, BUN 20 H, Creatinine 1.22 H, Estim Creat Clear Calc 37.53 L, Est GFR (MDRD) Non-Af 45 L, BUN/Creatinine Ratio 16.6, Glucose 110 H, Lactic Acid 1.0, Calcium 9.4, Total Bilirubin 0.55, AST 22, ALT 13, Alkaline Phosphatase 152 H, Troponin T High Sens 17 H D, NT pro BNP II 331, Total Protein 7.1, Albumin 4.2, Globulin 2.9, Albumin/Globulin Ratio 1.5 10/09/24 21:30: PT 13.7, INR 1.0, APTT 25.5 10/09/24 21:38: Urine Color Yellow, Urine Clarity Cloudy, Urine pH 6.0, Ur Specific [place] 1.020, Urine Protein 30 H, Urine Glucose (UA) Normal, Urine Ketones 15 H, Urine Occult Blood 10 H, Urine Nitrite Positive H, Urine Bilirubin Negative, Urine Urobilinogen 1 H, Ur Leukocyte Esterase 500 H, Urine RBC 0-5 SEEN, Urine WBC 50-100 SEEN, Ur Squamous Epith Cells 5-10 SEEN, Ur Transition Epith Cell 0-5 SEEN, Urine Bacteria 4+, Urine Mucus 0 SEEN Micro: Microbiology 10/09/24 20:37 Mucosa - Nose SARS-CoV-2, Influenza & RSV (PCR) - Final ABG Data ABG results: ABG 10/09/24 20:37 Specimen Type ASHLEY Sample Site Not entered O2 % 3.0 VBG pH 7.48 H VBG pO2 60 H VBG HCO3 23 VBG Total CO2 24 VBG O2 Sat (Calc) 93 H VBG Base Excess -1 POC Mix VBG pCO2 Pt Tmp 30.4 L O2 Delivery Device Cannula Imaging Radiology Impression Chest X-Ray 10/09/24 21:15 IMPRESSION: Left base opacity likely reflecting atelectasis however consolidation or aspiration not excluded. Mild pulmonary vascular congestion and interstitial edema. Stable mild cardiomegaly. Reading Location: [facility] Assessment & Plan Assessment/Plan (1) Acute cystitis without hematuria: PLAN: Plan The patient is an 79 y/o F w/ PMHx: CKD stage III unclear subtype per GFR trending, Obesity, NAYA noncompliant with PAP therapy, Frequent urinary tract infections with history of neurogenic bladder, Dementia unclear type with unclear behavioral disturbance history, Chart reported history of frequent falls, Asthma, GERD, HLD, Anxiety and Depression, Hypothyroidism, Former tobacco use who presents to the [facility] ED on 10/09/2024 with reported confusion and weakness with general malaise and fatigue not feeling well since Tuesday however she has progressively worsened with decreased oral intake with no recent URI type symptoms, cough, fever, chills, abdominal pain, nausea, emesis or any urinary symptoms but given concerns family brought her in for evaluation. #1. Acute Encephalopathy, multifactorial, secondary to Acute Hypoxia with left lower lobe infiltrate concerning for possible pneumonia, community-acquired versus potential aspiration however lower suspicion complicated by #2 and confounded by #8: Will admit to [facility], maintain on oxygen with wean as tolerated to room air, PRN albuterol, maintained on IV Rocephin and Azithromycin however if any concerns arise for possible aspiration certainly could alter antibiotic therapy but lower suspicion at this time per discussion with patient and family, HOB, IS parameters w/ pending sputum cultures, full respiratory viral panel and urine antigens. PT/OT/case management consulted for discharge planning. BNP requested also given no marked recent respiratory complaints or symptoms. #2. Acute Complicated Urinary Tract Infection complicated by underlying noted history of neurogenic bladder: UA upon ED evaluation remarkable, pending UCx, administer judicious IVFs, monitor I/Os, continue IV Rocephin w/ transition as able pending sensitivities and speciation. #3. Dementia unclear type with unclear behavioral disturbance history: Complicates presentation, maintain fall precautions, PT/OT/case management consulted for discharge planning. #4. Chronic Kidney Disease Stage III, unclear subtype or GFR trending: Admission BUN/Cr 20/1.22, GFR 45, baseline renal function primarily 1.0-1.2, repeat BMP in AM. #5. Anxiety and depression: Will continue patient on Prozac regimen. #6. Hypothyroidism: Will continue patient on levothyroxine regimen. #7. Obesity: Weight loss and lifestyle changes encouraged. #8. NAYA: Patient noncompliant with PAP therapy. #9. GERD: Continue patient on PPI. #10. Former tobacco use: Encourage continued tobacco cessation. #11. Chronic asthma: Will maintain on oxygen with wean as tolerated to room air given acute presentation as noted above, will maintain on ATC budesonide therapy, PRN albuterol, HOB, IS parameters. #12. Hypertension: Continue home regimen including Coreg, PRN hydralazine. #13. Hyperlipidemia: Will continue patient home ezetimibe. #14. DVT prophylaxis: Lovenox. #15. CODE STATUS: DNR CCA with intubation which was confirmed with patient and family as this was the last status patient had during previous admission 08/2024. Charges/Coding Visit Charges Inpatient E&M: 22197 Init Hosp L3
--- OUTSIDE RECORDS SUMMARY | 2024-10-09 23:31 | XMS RPT_ITS | CCD ---
Author Organization [facility] Care Team Providers Care Rivet Catcher Name Role Phone Dr. Israel Tucker Chi Primary Care Provider Dr. Israel Tucker Chi Referring Provider ARLEEN Watt Attending Provider Kayley Owens MD Primary Care Provider Unavailable Primary Care Provider UnavailDinah Kumrai MD Primary Care Provider Dinah Melgar MD Primary Care Provider Dr. Dinah Melgar Primary Care Provider Dr. Dinah Melgar Referring Provider ARLEEN Liang Attending Provider Dr. Dinah Melgar Primary Care Provider Dr. Rosa Cruz Attending Provider Dr. Rory Gomez Referring Provider Dinah Melgar MD Primary Care Provider Dr. Dinah Melgar Primary Care Provider Shen, Dr. Marina Cerda Admit Provider Semenkirby, Dr. Marina Cerda Attending Provider Shen, Dr. Marina Cerda Other Provider GUILLAUME DELGADO Attending Unavailable DINAH MELGAR Primary Care Unavailable Constance JAMIL MD, Arnold Singh Primary Care Provider Sowmya vailable Constance JAMIL MD, Arnold A Primary Care Provider Sowmya vailable Geronimo KNIFE OPERATOR.FILING AND POLISHING SUPERVISOR, Isadora Unavailable Suppan KNIFE OPERATOR.FILING AND POLISHING SUPERVISOR, Sylvie A Unavailable [phone] Suppan KNIFE OPERATOR.FILING AND POLISHING SUPERVISOR, Sylvie A Unavailable Suppan KNIFE OPERATOR.FILING AND POLISHING SUPERVISOR, Sylvie A Unavailable Talia THOMAS, Dr. Ramos Primary Care Provider Dr. Dinah Melgar MD Referring Provider Srini MICROSCOPIST-C, Pam Attending Provider Aviva JACOBSON, Dr. Lucero Emergency Provider [phone] iMcaela JACOBSON, Dr. Maloney Emergency Provider de Lucho JACOBSON, Dr. Garcia Admit Provider Unavail able de Lucho DO, Dr. Garcia Attending Provider Unav ailable Micaela JACOBSON, Dr. Maloney Emergency Provider de Lucho JACOBSON, Dr. Garcia Admit Provider Unavail able de Lucho JACOBSON, Dr. Garcia Other Provider Unavail able David JACOBSON, Dr. Deshpande Attending Provider [phone] David JACOBSON, Dr. Deshpande Other Provider Dr. Nic Chicas DO Attending Provider Abelardo Reddy MD Emergency Provider [phone] Ezequiel Keller DO Emergency Provider [facility] Primary Care Unavailable Ezequiel Keller Attending Unavailabl e [facility] Primary Care Unavailable Charlee Hernandez Attending Unavailable Jose Aj Admitting Unavailable de Jose Yepez Consulting Unavailable Abelardo Reddy Attending Unavailable [facility] Primary Care Unavailable Pam Milligan NP Attending Unavailable Pam Milligan NP Referring Unavailable [facility] Primary Care Unavailable [facility] Primary Care Unavailable Marina Gotti Attending Unavaila ble Marina Gotti Referring Unavaila ble Nic Chicas Attending Unavailable [facility] Primary Care Unavailable [place], [facility] Primary Care Unavailable Charlee Hernandez Attending Unavailable Jose Aj Admitting Unavailable de Jose Yepez Consulting Unavailable Charlee Hernandez Consulting Unavailable Jose Aj Attending Unavailable Srini MICROSCOPIST, Pam Attending Unavailable Talia, Dinah Primary Care Unavailable [place], Dinah Referring Unavailable Srini MICROSCOPIST, Pam Attending Unavailable [place], Dinah Primary Care Unavailable [place], Dinah Referring Unavailable HAWRYGUILLAUME SEN Referring Unavailable TALIA, DINAH García Primary Care Unavailable HAWCANDELARIA, GUILLAUME Referring Unavailable TALIA, DINAH García Primary Care Unavailable NITZ, URIEL Admitting Unavailable NITAnnie, URIEL Attending Unavailable NITZ, URIEL Referring Unavailable TALIA, DINAH J Primary Care Unavailable HAWRYMCKINLEY, GUILLAUME Attending Unavailable TALIA, DINAH García Primary Care Unavailable TALIA, DINAH García Primary Care Unavailable SANDY, GUILLAUME Referring Unavailable TALIA, DINAH García Primary Care Unavailable HAWRYMCKINLEY, GUILLAUME Attending Unavailable TALIA, DINAH J Primary Care Unavailable HAWRYLUK, GUILLAUME Attending Unavailable TALIA, DINAH García Primary Care Unavailable HAWRYMCKINLEY, GUILLAUME Attending Unavailable TALIA, DINAH García Primary Care Unavailable GABRIELRYMCKINLEY, GUILLAUME Attending Unavailable GUILLAUME DELGADO Referring Unavailable TALIA, DINAH García Primary Care Unavailable TALIA, DINAH García Referring Unavailable TALIA, DINAH García Primary Care Unavailable TON LOONEY Attending Unavailable TESTRATON HORNE Referring Unavailable TALIA, DINAH García Primary Care Unavailable TALIA, DINAH García Attending Unavailable TALIA, DINAH García Primary Care Unavailable SYLVIE ARIZA Attending Unavailable TALIA, DINAH García Primary Care Unavailable TALIA, DINAH García Referring Unavailable TALIA, DINAH García Primary Care Unavailable SYLVIE ARIZA Attending Unavailable TALIA, DINAH García Primary Care Unavailable SYLVIE ARIZA Referring Unavailable TALIA, DINAH García Primary Care Unavailable TALIA, DINAH García Referring Unavailable TALIA, DINAH García Primary Care Unavailable TALIA, DINAH García Attending Unavailable TALIA, DINAH García Primary Care Unavailable TESTTON LERMA Attending Unavailable TESTTON LERMA Referring Unavailable TALIA, DINAH García Primary Care Unavailable TALIA, DINAH García Referring Unavailable TALIA, DINAH García Primary Care Unavailable TALIA, DINAH García Attending Unavailable TALIA, DINAH García Primary Care Unavailable TALIA, DINAH García Attending Unavailable TALIA, DINAH García Primary Care Unavailable TESTTON LERMA Attending Unavailable TESTRATON HORNE Referring Unavailable TALIA, DINAH García Primary Care Unavailable TALIA, DINAH García Referring Unavailable TALIA, DINAH García Primary Care Unavailable Allergies Allergy Classification Reported Allergen(s) Allergy Type Date of Onset Reaction(s) Facility (20 sources) rofecoxib; Translations: [ROFECOXIB] Drug Allergy 6 Unknown [facility] Comment on above: It's been too long ago to remember what happened (20 sources) Simvastatin; Translations: [SIMVASTATIN] Drug Allergy 1 Other: See Comments [facility] (1 source) rofecoxib Drug Allergy 5 [facility] Repository Medications Current Medications Medication Drug Class(es) Dates Sig (Normalized) Sig (Original) acetaminophen 500 mg oral tablet (20 sources) Start: 09-07-2023 take 2 tablets by mouth every eight hours Acetaminophen 500 mg Tablet Active 1000 mg PO EVERY 8 HOURS 180 September 07, 2023 12:00am Start: 09-07-2023 take 1000 mg by mout h every eight hours Acetaminophen Active 1000 MG PO EVERY 8 HOURS 180 September 07, 2023 12:00am End: 06-13-2023 take 500 mg by mouth twice daily acetaminophen (TYLENOL 8 HOUR ORAL) Take 500 mg by mouth twice daily. 06/13/2023 Discontinued Comment on above: Take 500 mg by mouth twice daily. [id number] 200 actuat albuterol 0.09 mg/actuat metered dose inhaler (20 sources) beta2-Adrenergic Agonist Start: 08-23-2023 Albuterol Sulfate 90 mcg/actuation HFA aerosol inhaler Active 2 NMA INHALATION Q4H as needed for SOB,Wheezing August 23, 2023 12:00am Start: 08-23-2023 Albuterol Sulf ate Active 2 INH INHALATION Q4H August 23, 2023 12:00am Start: 06-09-2020 take 2 puff(s) by in halation every four hours as needed albuterol HFA (PROVENTIL HFA, VENTOLIN HFA) 90 mcg/actuation inhaler Indications: Uncomplicated asthma, unspecified asthma severity, unspecified whether persistent (HCC) Inhale 2 Puffs as instructed every 4 hours as needed. 18 g 3 06/09/2020 Active Comment on above: Inhale 2 Puffs as in structed every 4 hours as needed. alendronic acid 70 mg oral tablet (10 sources) Bisphosphonate Start: 08-28-19 25 End: 04-21-20 26 take 1 tablet by mouth every week in the morning alendronate (FOSAMAX) 70 mg tablet Indications: Age-related osteoporosis with current pathological fracture, initial encounter Take 1 tablet by mouth one time a week. In am with glass of water, on a empty stomach, nothing by mouth or lying down for 30 minutes 12 tablet 3 08/27/2024 08/27/2025 Active Start: 06-21-2020 End: 02-03-2022 take 1 tablet by mouth every week alendronate (FOSAMAX) 70 mg tablet Indications: Osteoporosis without current pathological fracture, unspecified osteoporosis type Take 1 tablet by mouth one time a week. Take with a full glass of water, on an empty stomach; do NOT lie down for 30minutes. 4 tablet 11 06/21/2020 02/03/2022 Discontinued Comment on above: Take 1 tablet by kary th one time a week. Take with a full glass of water, on an empty stomach; do NOT lie down for 30minutes. calcium carbonate 1250 mg / cholecalciferol 200 unt oral tablet (5 sources) Vitamin D Start: 2024 End: 2025 take 1 tablet by mouth twice daily pgillnv-limwfvxcv-jfol min D3 (CALCIUM 500+D) 500 mg-5 mcg (200 unit) per tablet Indications: Age-related osteoporosis with current pathological fracture, initial encounter Take 1 tablet by mouth two times a day. 180 tablet 3 08/27/2024 08/27/2025 Active carvedilol 6.25 mg oral tablet (20 sources) alpha-Adrenergic Yeni, beta-Adrenergic Yeni Start: 2023 End: 2025 take 1 tablet by mouth twice daily at mealtime carvedilol (COREG) 6.25 mg tablet Indications: Primary hypertension Take 1 tablet by mouth two times a day with meals. 180 tablet 3 07/30/2024 07/30/2025 Active chlorpheniramine maleate 4 mg oral tablet (6 sources) Histamine-1 Receptor Antagonist Start: 2023 End: 2023 take 1 tablet by mouth every six hours as needed chlorpheniramine (CHLORTRIMETON) 4 mg tablet Indications: Seasonal allergic rhinitis due to pollen Take 1 tablet by mouth every 6 hours as needed for up to 15 days. 45 tablet 0 06/13/2023 06/28/2023 Active Comment on above: Take 1 tablet by kary th every 6 hours as needed for up to 15 days. ciprofloxacin 500 mg oral tablet (2 sources) Quinolone Antimicrobial Start: 2022 take 1 tablet by mouth twice daily Ciprofloxacin Hcl (Cipro) 500 mg tablet Active 500 MG PO TWICE A DAY September 10, 2022 12:00am doxycycline monohydrate 100 mg oral tablet (1 source) Tetracycline-class Drug Start: 2022 End: 2022 take 1 tablet by mouth twice daily doxycycline monohydrate 100 mg tablet Indications: Bronchitis Take 1 tablet by mouth two times a day for 10 days. 20 tablet 0 02/16/2023 02/26/2023 Active Comment on above: Take 1 tablet by kary th two times a day for 10 days. ezetimibe 10 mg oral tablet (20 sources) Dietary Cholesterol Absorption Inhibitor Start: 2022 End: 2025 take 1 tablet by mouth once daily ezetimibe (ZETIA) 10 mg tablet Indications: Hyperlipidemia LDL goal , Statin intolerance Take 1 tablet by mouth once daily. 90 tablet 3 07/30/2024 07/30/2025 Active Comment on above: Take 1 tablet by kary th once daily. famotidine 40 mg oral tablet (20 sources) Histamine-2 Receptor Antagonist Start: 2022 End: 2025 take 1 tablet by mouth once daily famotidine (PEPCID) 40 mg tablet Indications: Gastroesophageal reflux disease without esophagitis Take 1 tablet by mouth once daily. 90 tablet 3 07/30/2024 07/30/2025 Active Comment on above: Take 40 mg by mouth once daily. Take 1 tablet by kary th once daily. FLUoxetine 20 mg oral capsule (20 sources) Serotonin Reuptake Inhibitor Start: 2023 End: 2025 take 1 capsule by mouth once FLUoxetine (PROZAC) 20 mg capsule Indications: Depression, recurrent Take 1 capsule by mouth every afternoon. 90 capsule 3 07/30/2024 07/30/2025 Active Start: 01-15-2022 End: 12-31-2023 take 1 capsule by mouth once daily Fluoxetine 40 mg Capsule Discontinued 40 mg PO DAILY June 11, 2022 1:00September 07, 2023 11:43am Start: 06-09-2020 End: 02-03-2022 take 1 capsule by mouth once daily FLUoxetine (PROZAC) 20 mg capsule Indications: Situational depression Take 1 capsule by mouth once daily. 90 capsule 3 06/09/2020 02/03/2022 Discontinued Comment on above: Take 1 capsule by mo [facility] once daily. Take 40 mg by mouth once daily. Incontinence Pad, Liner, Disp pads (9 sources) Start: 08-20-2024 End: 11-18-2024 Incontinence Pad, Liner, Disp pads Indications: Dysuria 1 pad two times a day as needed. 120 each 2 08/20/2024 11/18/2024 Active ipratropium bromide 0.042 mg/actuat metered dose nasal spray (20 sources) Anticholinergic Start: 09-07-2023 End: 07-30-2024 ipratropium bromide (ATROVENT) 42 mcg (0.06 %) nasal spray Use 2 Sprays in the nose three times a day. 15 mL 5 07/30/2024 Active Start: 09-07-2023 Ipratropium Br omide 42 mcg (0.06 %) [place],Non-Aerosol Active 2 NMA NASAL THREE TIMES A DAY September 07, 2023 12:00am Start: 09-07-2023 Ipratropium Br omide Active 2 SPRAY NASAL THREE TIMES A DAY September 07, 2023 12:00am End: 01-30-2024 IPRATROPIUM BROMIDE NASAL Us e in the nose. 01/30/2024 Discontinued IPRATROPIUM BROM SUSAN NASAL Use in the nose. Active IPRATROPIUM BROM SUSAN NASAL Use in the nose. 0 Active lactulose 667 mg/ml oral solution (13 sources) Osmotic Laxative Start: 08-21-2024 Lactulose 10 gram/15 mL solution Active 15 mL PO NEEDED August 21, 2024 12:00am Start: 08-20-2024 End: 08-27-2025 take 30 mL by mouth twice daily as needed lactulose 10 gram/15 mL solution Indications: Acute low back pain without sciatica, unspecified back pain laterality Take 30 mL by mouth two times a day as needed. 473 mL 11 08/27/2024 08/27/2025 Active levothyroxine sodium 0.05 mg oral tablet (20 sources) l-Thyroxine Start: 09-07-2023 End: 07-30-2024 take 1 tablet by mouth once daily in the morning levothyroxine (SYNTHROID) 50 mcg tablet Indications: Hypothyroidism, acquired TAKE 1 TABLET BY MOUTH ONCE DAILY AT 6 AM 90 tablet 3 07/30/2024 Active Start: 03-05-2022 End: 09-12-2023 take 1 tablet by mouth once daily Levothyroxine (Synthroid) 25 mcg Tablet Discontinued 25 ug PO DAILY June 11, 2022 1:00am September 07, 2023 11:44am Start: 03-05-2022 End: 03-05-2022 take 1 capsule by mouth once daily before breakfast levothyroxine 25 mcg cap Take 1 capsule by mouth daily before breakfast. 90 capsule 1 03/05/2022 03/05/2022 Discontinued Comment on above: Take 25 mcg by mouth daily before breakfast. Take 1 capsule by mo uth daily before breakfast. Take 1 tablet by kary th once daily. Take on empty stomach. For Thyroid 24 hr mirabegron 50 mg extended release oral tablet (20 sources) beta3-Adrenergic Agonist Start: 06-11-2022 End: 07-30-2025 take 1 tablet by mouth once daily mirabegron (MYRBETRIQ) 50 mg Tb24 Indications: Overactive bladder Take 1 tablet by mouth once daily. 90 tablet 3 07/30/2024 07/30/2025 Active End: 10-24-2023 take 25 mg by mouth once daily mirabegron (MYRBETRIQ) 50 mg Tb24 Take 25 mg by mouth once daily. 10/24/2023 Discontinued Comment on above: Take 25 mg by mouth once daily. mupirocin 0.02 mg/mg topical ointment (5 sources) RNA Synthetase Inhibitor Antibacterial Start: 12-26-2022 End: 01-05-2023 mupirocin (BACTROBAN) 2 % ointment Apply 1 application to affected area three times daily for 10 days. 30 g 0 12/26/2022 01/05/2023 Active Start: 12-18-2021 End: 12-28-2021 mupirocin (BACTROBAN) 2 % oi ntment Indications: Skin tear of left lower leg without complication, initial encounter Apply to affected area three times daily for 10 days. 22 g 1 12/18/2021 12/28/2021 Active Comment on above: Apply to affected ar ea three times daily for 10 days. Apply 1 application to affected area three times daily for 10 days. nitrofurantoin, macrocrystals 25 mg / nitrofurantoin, monohydrate 75 mg oral capsule (2 sources) Nitrofuran Antibacterial Start: End: take 1 capsule by mouth twice daily at mealtime nitrofurantoin monohydrate and macrocrystal (MACROBID) 100 mg capsule Indications: Urinary tract infection without hematuria, site unspecified Take 1 capsule by mouth two times a day with meals for 5 days. 10 capsule 0 06/15/2023 06/20/2023 Active Comment on above: Take 1 capsule by mo [facility] two times a day with meals for 5 days. pantoprazole 40 mg delayed release oral tablet (20 sources) Proton Pump Inhibitor Start: End: take 1 tablet by mouth once daily pantoprazole DR (PROTONIX) 40 mg tablet Indications: Gastroesophageal reflux disease without esophagitis Take 1 tablet by mouth once daily. 90 tablet 3 07/30/2024 07/30/2025 Active Start: 06-11-2022 take 40 mg by mouth once daily Pantoprazole [address] For Susp In Packet Active 40 mg PO DAILY June 11, 2022 1:00am Start: 05-11-2022 End: 09-12-2023 take 1 tablet by mouth once daily pantoprazole DR (PROTONIX) 40 mg tablet Take 1 tablet by mouth once daily. 90 tablet 1 05/23/2023 09/12/2023 Discontinued (Other) Start: 05-11-2022 End: 05-10-2022 take 1 tablet by mouth once daily pantoprazole DR (PROTONIX) 40 mg tablet Take 1 tablet by mouth once daily. 90 tablet 3 05/11/2022 Active End: 09-16-2023 take 1 tablet by mouth once daily pantoprazole DR (PROTONIX) 40 mg tablet Take 40 mg by mouth once daily. 09/16/2023 Discontinued Comment on above: Take 40 mg by mouth once daily. [facility] polyethylene glycol 3350 82180 mg powder for oral solution (11 sources) Osmotic Laxative Start: End: Polyethylene Glycol 3350 (Miralax) 17 gram/dose powder Active 17 g PO TWICE A DAY as needed for constipation August 13, 2024 12:00am solifenacin succinate 10 mg oral tablet (20 sources) Cholinergic Muscarinic Antagonist Start: take 1 tablet by mouth once daily solifenacin 10 mg tablet Take 1 tablet by mouth once daily. 07/30/2024 Active Start: 03-28-2023 End: 08-20-2023 take 1 tablet by mouth at bedtime Solifenacin 10 mg tablet Discontinued 10 mg PO AT BEDTIME March 28, 2023 1:00am August 20, 2023 1:37pm traMADol hydrochloride 50 mg oral tablet (20 sources) Opioid Agonist Start: 09-07-2023 End: 01-30-2024 traMADol (ULTRAM) 50 mg tablet TAKE 1 TABLET BY MOUTH THREE TIMES DAILY (EVERY 8 HOURS) NEEDED FOR LEVEL 4-10 PAIN 09/07/2023 01/30/2024 Discontinued Start: 09-07-2023 End: 01-30-2024 Tramadol 50 mg Tablet Discon tinued 50 mg PO THREE TIMES A DAY as needed for Pain Score 4-10 September 07, 2023 12:00am January 30, 2024 11:23am 1 tab every 8 hours as needed for pain >3/10 Start: 08-23-2023 End: 09-07-2023 take 1 tablet by mouth every six hours as needed for pain Tramadol 50 mg tablet Discontinued 50 mg PO EVERY 6 HOURS as needed for pain August 23, 2023 12:00am September 07, 2023 11:45am valACYclovir 1000 mg oral tablet (1 source) Herpesvirus Nucleoside Analog DNA Polymerase Inhibitor, Herpes Simplex Virus Nucleoside Analog DNA Polymerase Inhibitor, Herpes Zoster Virus Nucleoside Analog DNA Polymerase Inhibitor Start: 07-14-2022 End: 07-21-2022 take 1 tablet by mouth three times daily valACYclovir (VALTREX) 1 gram Indications: Herpes zoster without complication Take 1 tablet by mouth three times daily for 7 days. 21 tablet 0 07/14/2022 07/21/2022 Active Comment on above: Take 1 tablet by kary three times daily for 7 days. Completed/Discontinued Medications Medication Drug Class(es) Dates Sig (Normalized) Sig (Original) acetaminophen 65 mg/ml / chlorpheniramine maleate 0.4 mg/ml / dextromethorphan hydrobromide 1.3 mg/ml / phenylephrine hydrochloride 1 mg/ml oral solution (1 source) Histamine-1 Receptor Antagonist, Uncompetitive V-tqiygk-X-aspartat e Receptor Antagonist, Sigma-1 Agonist, alpha-1 Adrenergic Agonist Start: 06-13-2023 End: 06-13-2023 take 4 mg by mouth four times daily as needed [id number] cetaminophen 4--650 mg/10 mL liqd Indications: Seasonal allergic rhinitis due to pollen Take 4 mg by mouth four times daily. Takes as needed for sinus drainage, prn use only 60 mL 1 06/13/2023 06/13/2023 Discontinued Comment on above: Take 4 mg by mouth f our times daily. Takes as needed for sinus drainage, prn use only acetaminophen 325 mg / HYDROcodone bitartrate 5 mg oral tablet (20 sources) Opioid Agonist Start: 08-12-2024 End: 08-13-2024 Hydrocodone-Aceta minophen 5-325 mg tablet Discontinued 1 {tbl} PO EVERY 6 HOURS NEEDED as needed for Pain 02 08August 12, 2024 August 13, 2024 9:41pm Start: 03-26-2022 take 1 tablet by kary th every six hours Hydrocodone-Acetaminophen Active 1 TABLE T PO EVERY 6 HOURS 02 08March 26, 2022 Start: 05-02-2021 End: 04-25-2022 Hydrocodone-Acetaminophen 5- 325 mg tablet Discontinued 1 {tbl} PO AT BEDTIME as needed for pain 02 08May 02, 2021 April 25, 2022 12:40pm Start: 05-02-2021 End: 04-25-2022 take 1 tablet by mouth at bedtime Hydrocodone-Acetaminophen Discontinued 1 TABLET PO AT BEDTIME 02 08May 02, 2021 April 25, 2022 12:40pm Apple Cider Vinegar (5 sources) End: 02-03-2022 take 2 capsules by mouth once daily APPLE CIDER VINEGAR ORAL Take 2 capsules by mouth once daily. 02/03/2022 Discontinued End: 02-03-2022 take 2 capsules by mouth once daily APPLE CIDER VINEGAR ORAL Take 2 capsules by mouth once daily. 0 02/03/2022 Discontinued take 2 capsules by m outh once daily APPLE CIDER VINEGAR ORAL Take 2 capsules by mouth once daily. 0 Active Comment on above: Take 2 capsules by m outh once daily. atorvastatin 40 mg oral tablet (5 sources) HMG-CoA Reductase Inhibitor Start: 0 End: 2 atorvastatin (LIPITOR) 40 mg tablet Take as many doses as tolerated /week. (max 1/day; 7/wk)For cholesterol. 90 tablet 3 05/05/2020 02/03/2022 Discontinued Comment on above: Take as many doses a s tolerated /week. (max 1/day; 7/wk)For cholesterol. benzonatate 100 mg oral capsule (3 sources) Non-narcotic Antitussive Start: 3 End: 4 take 1 capsule by mouth three times daily as needed for cough benzonatate (TESSALON PERLES) 100 mg capsule Indications: Bronchitis Take 1 capsule by mouth three times a day as needed for cough. 30 capsule 0 02/16/2023 06/13/2023 Discontinued Comment on above: Take 1 capsule by mo uth three times a day as needed for cough. CENTRUM SILVER TAB (5 sources) Start: 7 End: 2 CENTRUM SILVER TAB Take one(1) tablet daily. 0 06/08/2006 02/03/2022 Discontinued Start: 06-08-2006 CENTRUM SILVER TAB Take one(1) tablet daily. 0 06/08/2006 Active Comment on above: Take one(1) tablet d aily. cephalexin 500 mg oral capsule (12 sources) Cephalosporin Antibacterial Start: 5 End: 5 take 1 capsule by mouth twice daily Cephalexin 500 mg capsule Discontinued 500 mg PO TWICE A DAY August 15, 2024 12:00am August 21, 2024 9:26pm Start: 04-06-2023 End: 08-20-2023 take 2 capsules by mouth twice daily Cephalexin 500 mg capsule Discontinued 1000 mg PO TWICE A DAY April 06, 2023 1:00am August 20, 2023 1:37pm Start: 04-06-2023 End: 08-20-2023 take 1000 mg by mouth twice daily Cephalexin Discontinued 1000 MG PO TWICE A DAY April 06, 2023 1:00am August 20, 2023 1:37pm COMPOUNDED PRESCRIPTION (5 sources) Start: 09-30-2007 End: 02-03-2022 COMPOUNDED PRESCRIPTION biof sabas 1 tab daily 0 09/30/2007 02/03/2022 Discontinued Start: 09-30-2007 COMPOUNDED PRE SCRIPTION bioflex 1 tab daily 0 09/30/2007 Active Comment on above: bioflex 1 tab daily cyclobenzaprine hydrochloride 5 mg oral tablet (15 sources) Muscle Relaxant Start: End: take 1 tablet by mouth three times daily cyclobenzaprine (FLEXERIL) 5 mg tablet Indications: Acute pain of right shoulder Take 1 tablet by mouth three times a day. 20 tablet 05/28/2024 08/27/2024 Discontinued (Discontinued by Patient) diclofenac sodium 0.01 mg/mg topical gel (15 sources) Nonsteroidal Anti-inflammatory Drug Start: End: diclofenac (VOLTAREN ARTHRITIS PAIN) 1 % topical gel Indications: Acute pain of right shoulder Apply 2 g to affected area four times daily. 50 g 05/28/2024 08/27/2024 Discontinued (Discontinued by Patient) diphenhydrAMINE-maalox -lidocaine (BMX 1:1:1) 1:1:1 liqd (1 source) Start: End: take 1 [tsp_us] by mouth every two hours as needed for pain diphenhydrAMINE-maalo x-lidocaine (BMX 1:1:1) 1:1:1 liqd Mix in equal amounts - 1 tsp every 2hrs as needed for mouth pain, Swish/swallow or expectorate. (8oz) 240 mL 06/09/2020 02/15/2021 Discontinued (Course of therapy completed) docusate sodium 50 mg / sennosides, fdc 8.6 mg oral tablet (4 sources) Start: End: take 1 tablet by mouth twice daily senna-docusate (SENNA-S) 8.6-50 mg per tablet Take 1 tablet by mouth two times a day. 0 08/23/2023 09/12/2023 Discontinued Comment on above: Take 1 tablet by kary two times a day. donepezil hydrochloride 10 mg oral tablet (20 sources) Start: End: take 1 tablet by mouth once daily Donepezil 10 mg Tablet Discontinued 10 mg PO DAILY June 11, 2022 1:00am September 07, 2023 11:42am Comment on above: Take 10 mg by mouth daily at bedtime. Take 1 tablet by kary daily at bedtime. fluticasone propionate 0.05 mg/actuat metered dose nasal spray (16 sources) Corticosteroid Start: End: take 2 spray(s) by mouth once daily fluticasone (FLONASE) 50 mcg/actuation nasal spray Use 2 Sprays in each nostril once daily. Rinse mouth after use. 1 Bottle 08/16/2019 10/06/2022 Discontinued Comment on above: Use 2 Sprays in each nostril once daily. Rinse mouth after use. folic acid 0.4 mg oral tablet (5 sources) Start: End: FOLIC ACID 400 MCG TAB Take one(1) tablet daily. 0 06/08/2006 02/03/2022 Discontinued Comment on above: Take one(1) tablet d aily. Magnesium (5 sources) End: take 2 tablets by mouth once daily MAGNESIUM ORAL Take 2 tablets by mouth once daily. 02/03/2022 Discontinued End: 02-03-2022 take 2 tablets by mouth once daily MAGNESIUM ORAL Take 2 tablets by mouth once daily. 0 02/03/2022 Discontinued take [address] [facility] once daily MAGNESIUM ORAL Take 2 tablets by mouth once daily. 0 Active Comment on above: Take 2 tablets by mo [facility] once daily. meloxicam 7.5 mg oral tablet (20 sources) Nonsteroidal Anti-inflammatory Drug Start: 4 End: take 1 tablet by mouth once daily Meloxicam 7.5 mg tablet Discontinued 7.5 mg PO DAILY August 20, 2023 12:00am August 23, 2023 4:01pm Start: 05-11-2022 End: 06-01-2023 take 1 tablet by mouth once daily meloxicam (MOBIC) 7.5 mg tablet Take 1 tablet by mouth once daily. 90 tablet 1 12/03/2022 06/01/2023 Active Comment on above: Take 7.5 mg by mouth once daily. Take 1 tablet by kary once daily. naproxen 500 mg oral tablet (5 sources) Nonsteroidal Anti-inflammatory Drug Start: 09-20-19 End: 02-04-20 take 1 tablet by mouth every twelve hours as needed naproxen (NAPROSYN) 500 mg tablet Take 1 tablet by mouth twice daily as needed (arthritis pain). Take with food. 60 tablet 11 09/20/2019 02/03/2022 Discontinued Comment on above: Take 1 tablet by kary twice daily as needed (arthritis pain). Take with food. omeprazole 20 mg delayed release oral capsule (5 sources) Proton Pump Inhibitor Start: 06-04-19 End: 02-04-20 take 1 capsule by mouth once daily omeprazole (PRILOSEC) 20 mg capsule Indications: Gastroesophageal reflux disease, unspecified whether esophagitis present Take 1 capsule by mouth once daily. 90 capsule 3 06/04/2020 02/03/2022 Discontinued Comment on above: Take 1 capsule by mo [facility] once daily. 24 hr oxybutynin chloride 10 mg extended release oral tablet (13 sources) Cholinergic Muscarinic Antagonist Start: 08-20-19 End: 09-07-19 take 1 tablet by mouth once daily Oxybutynin Chloride 10 mg tablet extended release 24hr Discontinued 10 mg PO DAILY August 20, 2023 12:00am September 07, 2023 11:42am End: 02-03-2022 OXYBUTYNIN CHLORIDE ORAL Abel e 10 mg by mouth. 02/03/2022 Discontinued Comment on above: Take 10 mg by mouth. oxyCODONE hydrochloride 5 mg oral tablet (9 sources) Opioid Agonist Start: 3 End: 4 take 1 tablet by mouth every six hours as needed for pain Oxycodone 5 mg tablet Discontinued 5 mg PO EVERY 6 HOURS as needed for pain 02 12April 06, 2023 August 20, 2023 1:37pm Problems Active Problems Problem Classification Problem Date Documented Da te Episodic/Chronic Anxiety disorders (10 sources) Anxiety; Translations: [Anxiety disorder, unspecified] 09-08-2023 Chronic Asthma (20 sources) Asthma; Translations: [Unspecified asthma, uncomplicated] Onset: 0 03-11-2010 Chronic Chronic kidney disease (20 sources) Chronic kidney disease stage 3A ; Translations: [Chronic kidney disease, stage 3a (HCC)] Onset: 4 Chronic Chronic kidney disease (1 source) Chronic kidney disease; Translations: [Chronic kidney disease, stage 3a (HCC)] Onset: 4 Chronic obstructive pulmonary disease and bronchiectasis (1 source) Bronchitis; Translations: [Bronchitis, not specified as acute or chronic] 02-16-2023 Episodic Conditions associated with dizziness or vertigo (10 sources) Dizziness; Translations: [Dizziness and giddiness] 06-12-2023 Episodic Diabetes mellitus without complication (8 sources) Impaired glucose tolerance; Translations: [Impaired glucose tolerance (oral)] 08-24-2023 Episodic Disorders of lipid metabolism (20 sources) Hyperlipidemia; Translations: [Hyperlipidemia, unspecified] Onset: 2 Resolved: 4 11-12-2015 Chronic Esophageal disorders (20 sources) Gastroesophageal reflux disease; Translations: [Gastro-esophageal reflux disease without esophagitis] Onset: 6 11-03-2005 Chronic Essential hypertension (12 sources) Hypertensive disorder; Translations: [Essential (primary) hypertension] 08-25-2023 Chronic Gastrointestinal hemorrhage (1 source) Hematochezia; Translations: [Melena] 09-12-2023 Episodic Genitourinary symptoms and ill-defined conditions (20 sources) Incontinence; Translations: [Mixed incontinence] Onset: 5 04-23-2015 Chronic Genitourinary symptoms and ill-defined conditions (1 source) Dysuria; Translations: [Dysuria] 08-20-2024 Episodic Headache; including migraine (20 sources) Migraine; Translations: [Other forms of migraine] 07-12-2005 Chronic Intracranial injury (8 sources) Concussion injury of body structure; Translations: [Concussion] 08-20-2023 Episodic Mood disorders (20 sources) Recurrent depression; Translations: [Major depressive disorder, recurrent, unspecified] Onset: 3 10-11-2022 Chronic Comment on above: Taking Prozac 40 mg daily Mycoses (4 sources) Onychomycosis; Translations: [Tinea unguium] 06-14-2023 Episodic Nausea and vomiting (9 sources) Nausea and vomiting; Translations: [Nausea with vomiting, unspecified] 09-08-2023 Episodic Neoplasms of unspecified nature or uncertain behavior (3 sources) Thrombocytosis; Translations: [Thrombocytosis] Episodic Nonmalignant breast conditions (20 sources) Fibrocystic disease of breast; Translations: [Diffuse cystic mastopathy of unspecified breast] Onset: 6 11-03-2005 Chronic Open wounds of extremities (2 sources) Tear of skin; Translations: [Laceration without foreign body, left lower leg, initial encounter] Episodic Osteoarthritis (20 sources) Arthritis; Translations: [Unspecified osteoarthritis, unspecified site] Onset: 6 07-12-2005 Chronic Osteoporosis (3 sources) Osteoporosis; Translations: [Other osteoporosis without current pathological fracture] Onset: 4 01-30-2024 Chronic Other bone disease and musculoskeletal deformities (2 sources) Disorder of bone; Translations: [Disorder of bone, unspecified] 01-30-2024 Episodic Other connective tissue disease (1 source) Pain in both feet; Translations: [Pain in right foot] Episodic Other connective tissue disease (4 sources) Pain of toe of left foot; Translations: [Pain in left toe(s)] 06-14-2023 Episodic Other connective tissue disease (4 sources) Pain of toe of right foot; Translations: [Pain in right toe(s)] 06-14-2023 Episodic Other connective tissue disease (1 source) Repeated falls; Translations: [History of fall] 09-08-2023 Episodic Other diseases of bladder and urethra (20 sources) Overactive bladder; Translations: [Overactive bladder] Onset: 9 02-12-2009 Chronic Other diseases of kidney and ureters (2 sources) Renal impairment; Translations: [Disorder of kidney and ureter, unspecified] Episodic Other diseases of kidney and ureters (8 sources) Acute renal insufficiency; Translations: [Disorder of kidney and ureter, unspecified] 08-20-2023 Episodic Other fractures (13 sources) Fracture of rib; Translations: [Fracture of one rib, unspecified side, initial encounter for closed fracture] 04-03-2022 Episodic Other fractures (8 sources) Type II fracture of odontoid process of axis; Translations: [Anterior displaced Type II dens fracture, initial encounter for closed fracture] 08-20-2023 Episodic Other fractures (1 source) Anterior displaced Type II dens fracture, initial encounter for closed fracture; Translations: [Closed fracture of second cervical vertebra] 09-08-2023 Episodic Other fractures (3 sources) Fracture of twelfth thoracic vertebra; Translations: [Unspecified fracture of T11-T12 vertebra, initial encounter for closed fracture] 08-21-2024 Episodic Other fractures (1 source) Wedge compression fracture of T11-T12 vertebra, initial encounter for closed fracture; Translations: [T12 compression fracture, initial encounter ([facility])] Onset: Episodic Other fractures (1 source) Wedge compression fracture of T11-T12 vertebra, sequela; Translations: [Compression fracture of T12 vertebra, sequela] Onset: Episodic Other gastrointestinal disorders (20 sources) Irritable bowel syndrome with diarrhea; Translations: [Irritable bowel syndrome with diarrhea] Onset: 9 05-31-2018 Chronic Other gastrointestinal disorders (7 sources) Occult blood in stools; Translations: [Other fecal abnormalities] 08-25-2023 Episodic Other gastrointestinal disorders (2 sources) Other fecal abnormalities; Translations: [Nonspecific abnormal findings in stool contents] 09-08-2023 Episodic Other gastrointestinal disorders (2 sources) Constipation; Translations: [Constipation, unspecified] 08-21-2024 Episodic Other gastrointestinal disorders (1 source) Constipation, unspecified; Translations: [Constipation, unspecified] Onset: 5 Episodic Other hereditary and degenerative nervous system conditions (2 sources) Hereditary essential tremor; Translations: [Essential tremor] Chronic Other hereditary and degenerative nervous system conditions (2 sources) Impaired cognition; Translations: [Mild cognitive impairment, so stated] Chronic Other injuries and conditions due to external causes (3 sources) Unspecified injury of head, initial encounter; Translations: [Head injury, unspecified] Episodic Other injuries and conditions due to external causes (1 source) H/O: vertebral fracture; Translations: [Personal history of (healed) traumatic fracture] 09-12-2023 Episodic Other injuries and conditions due to external causes (1 source) Injury of left knee; Translations: [Unspecified injury of left lower leg, initial encounter] 10-23-2020 Episodic Other lower respiratory disease (1 source) Chronic cough; Translations: [Chronic cough] 11-23-2022 Episodic Other lower respiratory disease (1 source) Rib pain; Translations: [Pleurodynia] 02-16-2021 Episodic Other lower respiratory disease (8 sources) Hypoxia; Translations: [Hypoxemia] 08-14-2024 Episodic Other lower respiratory disease (1 source) Hypoxemia; Translations: [Hypoxemia] Onset: Episodic Other nervous system disorders (2 sources) Ataxia; Translations: [Ataxia, unspecified] Episodic Other non-traumatic joint disorders (3 sources) Pain in unspecified knee; Translations: [Pain in joint, lower leg] Onset: 5 07-30-2024 Episodic Other nutritional; endocrine; and metabolic disorders (20 sources) Obese class I; Translations: [Obesity, unspecified] Onset: 4 09-12-2023 Chronic Other nutritional; endocrine; and metabolic disorders (8 sources) Body mass index 30+ - obesity; Translations: [Obesity, unspecified] 08-14-2024 Chronic Other nutritional; endocrine; and metabolic disorders (1 source) Obesity, unspecified; Translations: [Obesity, unspecified] Onset: Chronic Other screening for suspected conditions (not mental disorders or infectious disease) (9 sources) Raised TSH level; Translations: [Other specified abnormal findings of blood chemistry] 08-24-2023 Episodic Other skin disorders (2 sources) Skin lesion; Translations: [Disorder of the skin and subcutaneous tissue, unspecified] 07-30-2024 Episodic Other upper respiratory disease (20 sources) Allergic rhinitis; Translations: [Allergic rhinitis, unspecified] Onset: 8 09-30-2007 Chronic Other upper respiratory disease (1 source) Allergic rhinitis due to pollen; Translations: [Allergic rhinitis due to pollen] 06-13-2023 Chronic Pathological fracture (4 sources) Pathological fracture due to osteoporosis; Translations: [Age-related osteoporosis with current pathological fracture, unspecified site, initial encounter for fracture] Onset: 5 04-23-2025 Episodic Residual codes; unclassified (20 sources) Sleep apnea; Translations: [Sleep apnea, unspecified] 05-05-2016 Chronic Comment on above: AHI is 60.9 Residual codes; unclassified (8 sources) Obstructive sleep apnea syndrome; Translations: [Obstructive sleep apnea (adult) (pediatric)] Chronic Comment on above: diagnosed in the pas t but, she was intolerant of CPAP so she never got a CPAP unit. ABN overnight trending pulse ox with desaturations to 88 or less approximantly 30% of the period she was monitored. Residual codes; unclassified (3 sources) Obstructive sleep apnea (adult) (pediatric); Translations: [Obstructive sleep apnea (adult)(pediatric)] Onset: 4 09-08-2023 Chronic Residual codes; unclassified (1 source) Sleep apnea, unspecified; Translations: [Sleep apnea, unspecified] Onset: 4 Chronic Residual codes; unclassified (8 sources) Unable to comply with treatment; Translations: [Poor compliance with continuous positive airway pressure treatment] 08-25-2023 Episodic Residual codes; unclassified (1 source) Edema; Translations: [Edema, unspecified] 05-28-2024 Episodic Screening and history of mental health and substance abuse codes (1 source) Patient encounter status; Translations: [Encounter for screening examination for other mental health and behavioral disorders] 01-30-2024 Episodic Spondylosis; intervertebral disc disorders; other back problems (20 sources) Cervical disc disorder; Translations: [Cervical disc disorder, unspecified, unspecified cervical region] Onset: 4 06-06-2013 Chronic Thyroid disorders (20 sources) Acquired hypothyroidism; Translations: [Hypothyroidism, unspecified] Onset: 3 Chronic Comment on above: On 25 mcg of Levothy roid the TSH is 10.1 Unclassified (1 source) Knee pain, unspecified chronicity, unspecified laterality 07-30-2024 Unclassified (1 source) Low back pain, unspecified; Translations: [Low back pain, unspecified] Onset: 5 Unclassified (1 source) Established Patient Onset: 4 Unclassified (1 source) Acute low back pain without sciatica, unspecified back pain laterality; Translations: [Acute low back pain without sciatica, unspecified back pain laterality] Onset: 5 Urinary tract infections (10 sources) Urinary tract infectious disease; Translations: [Urinary tract infection, site not specified] Onset: 5 06-15-2023 Episodic Viral infection (14 sources) COVID-19; Translations: [Other specified viral infection] Episodic Past or Other Problems Problem Classification Problem Date Documented Da te Episodic/Chronic Acute and unspecified renal failure (20 sources) Acute renal failure syndrome; Translations: [Acute kidney failure, unspecified] Onset: 08-20-2023 Resolved: 01-30-2024 08-20-2023 Episodic Adjustment disorders (20 sources) Reactive depression (situational); Translations: [Adjustment disorder with depressed mood] Onset: 05-31-2018 Resolved: 02-16-2023 05-31-2018 Chronic Delirium, dementia, and amnestic and other cognitive disorders (20 sources) Dementia; Translations: [Unspecified dementia without behavioral disturbance] Onset: 10-11-2022 Resolved: 02-16-2023 Chronic E Codes: Fall (20 sources) Fall; Translations: [Unspecified fall, initial encounter] Onset: 02-16-2023 Resolved: 02-16-2023 04-03-2022 Episodic Immunizations and screening for infectious disease (20 sources) Requires a tetanus booster; Translations: [Encounter for immunization] Onset: 02-03-2022 Resolved: 02-03-2022 Episodic Malaise and fatigue (11 sources) Asthenia; Translations: [Other malaise] Onset: 01-30-2024 08-25-2023 Episodic Open wounds of head; neck; and trunk (20 sources) Laceration - injury; Translations: [Laceration] Onset: 06-22-2022 Resolved: 10-24-2023 04-28-2013 Episodic Other bone disease and musculoskeletal deformities (1 source) Disorder of bone, unspecified; Translations: [Disorder of bone] Onset: 03-26-2024 Episodic Other connective tissue disease (20 sources) Recurrent falls ; Translations: [Repeated falls] Onset: 11-15-2022 Episodic Other connective tissue disease (20 sources) Disorder of rotator cuff; Translations: [Unspecified rotator cuff tear or rupture of unspecified shoulder, not specified as traumatic] Onset: 02-12-2009 Resolved: 04-10-2014 04-10-2014 Episodic Other connective tissue disease (20 sources) Supraspinatus tendinitis; Translations: [Shoulder lesion, unspecified, unspecified shoulder] Onset: 12-06-2012 Resolved: 04-10-2014 04-10-2014 Episodic Other connective tissue disease (20 sources) Impingement syndrome of right shoulder region; Translations: [Impingement syndrome of right shoulder] Onset: 06-06-2013 Resolved: 05-18-2017 04-10-2014 Episodic Other connective tissue disease (20 sources) Tear of right rotator cuff; Translations: [Unspecified rotator cuff tear or rupture of right shoulder, not specified as traumatic] Onset: 06-28-2013 Resolved: 04-10-2014 04-10-2014 Episodic Other fractures (14 sources) Fracture of odontoid process; Translations: [Anterior displaced Type II dens fracture, initial encounter for closed fracture] Onset: 08-20-2023 08-20-2023 Episodic Other fractures (20 sources) Closed fracture axis, odontoid process ; Translations: [Unspecified displaced fracture of second cervical vertebra, sequela] Onset: 08-20-2023 09-16-2023 Episodic Other fractures (2 sources) Unspecified displaced fracture of second cervical vertebra, sequela; Translations: [Closed odontoid fracture, sequela] Onset: 08-20-2023 Episodic Other fractures (1 source) Unspecified displaced fracture of second cervical vertebra, subsequent encounter for fracture with routine healing; Translations: [Closed odontoid fracture with routine healing] Onset: 01-30-2024 Episodic Other gastrointestinal disorders (20 sources) Diarrhea; Translations: [Diarrhea, unspecified] Onset: 06-21-2011 Resolved: 04-10-2014 04-10-2014 Episodic Other injuries and conditions due to external causes (20 sources) Closed injury of head; Translations: [Unspecified injury of head, initial encounter] Onset: 11-18-2021 Resolved: 01-30-2024 10-23-2021 Episodic Other injuries and conditions due to external causes (20 sources) H/O: head injury; Translations: [Personal history of (healed) traumatic fracture] Onset: 02-16-2023 02-16-2023 Episodic Other injuries and conditions due to external causes (1 source) Personal history of (healed) traumatic fracture; Translations: [History of skull fracture] Onset: 02-16-2023 Episodic Other liver diseases (20 sources) Increased creatine kinase level; Translations: [Abnormal levels of other serum enzymes] Onset: 04-26-2012 Resolved: 04-10-2014 04-10-2014 Episodic Other lower respiratory disease (20 sources) Cough; Translations: [Acute cough] Onset: 11-23-2022 Resolved: 02-16-2023 Episodic Other nervous system disorders (20 sources) Impairment of balance; Translations: [Other abnormalities of gait and mobility] Onset: 10-11-2022 Resolved: 02-16-2023 Episodic Other nervous system disorders (20 sources) Paresthesia of foot ; Translations: [Anesthesia of skin] Onset: 11-15-2022 Episodic Other non-traumatic joint disorders (20 sources) Pain in left shoulder; Translations: [Pain in joint, shoulder region] Onset: 11-29-2022 Resolved: 02-16-2023 11-23-2022 Episodic Other non-traumatic joint disorders (3 sources) Pain in right shoulder; Translations: [Pain in joint, shoulder region] Onset: 05-28-2024 05-28-2024 Episodic Residual codes; unclassified (20 sources) Other specified health status; Translations: [Other drug allergy] Onset: 07-03-2018 07-03-2018 Episodic Residual codes; unclassified (1 source) Edema, unspecified; Translations: [Edema, unspecified type] Onset: 05-28-2024 Episodic Skull and face fractures (20 sources) Fracture of skull; Translations: [Unspecified fracture of skull, initial encounter for closed fracture] Onset: 02-16-2023 Resolved: 02-16-2023 03-05-2021 Episodic Spondylosis; intervertebral disc disorders; other back problems (12 sources) Acute low back pain; Translations: [Acute low back pain without sciatica, unspecified back pain laterality] Onset: 01-04-2024 08-20-2024 Episodic Sprains and strains (20 sources) Strain of knee; Translations: [Strain of unspecified muscle(s) and tendon(s) at lower leg level, unspecified leg, initial encounter] Onset: 04-23-2015 Resolved: 02-16-2023 05-18-2017 Episodic Superficial injury; contusion (20 sources) Contusion of forehead; Translations: [Contusion of other part of head, initial encounter] Onset: 11-18-2021 Resolved: 02-16-2023 06-11-2022 Episodic Unclassified (20 sources) OPENED IN ERROR Onset: 10-13-2018 Resolved: 02-03-2022 10-13-2018 Unclassified (1 source) Fracture of twelfth thoracic vertebra 08-29-2024 Results Test Name Value Interpretation Reference Range Facility [facility] 09-03-2024 CNOV Office Visit ([facility]) GEORGINA SEGURA ([id number]) 1945 F Date Time Provider Department 09/03/24 8:45 AM GUILLAUME DELGADO [facility] During your visit today, we recorded the following information about you: Pulse Blood pressure Weight Height 77/minute 116/74 89.4 kg 1.6 m Guillaume Delgado MD, PhD 09/03/2024 11:58 AM Signed NEUROSURGERY FOLLOW UP OFFICE NOTE Guillaume Delgado MD, PhD Date of visit: September 03, 2024 Patient Name: Ms.Betty Ricky Segura Date of : 1945 Current Age: [age] year old Sex: female MRN/E# [id number] Last Office Visit: 07/23/2024 Chief Complaint: Patient presents with: Established Patient SUBJECTIVE: HPI The patient presented to [facility] ED on 08/20/2023 as a transfer from an outside hospital follow a fall. She noted she hit her head on the wall. Outside imaging demonstrated a type 2 odontoid fracture (acute vs chronic). She reported multiple falls recently and in the past. She noted 2-3 weeks prior, she fell and endorsed neck pain but did not seek medical attention. No surgical interventions were required at that time. She was to wear a [place] collar at all times. She was to obtain a bone stimulator outpatient. She was to follow up in 1 month with repeat imaging. At her last visit on 09/16/2023 she stated she had been doing okay since discharge. She reported midline posterior cervical pain. She denied any radicular symptoms. Denied paresthesia. Denied any weakness. Denied any further falls, loss of bowel or bladder. She had since been using a cane for extra support. She was complaint with her cervical collar. She had been using ultram with relief. She was receiving home therapy. She did not receive any information about her bone growth stimulator. There was significant bone loss at the neck of the odontoid process that was caused to believe that she likely had a longstanding fracture in that location. It was difficult to tell thought it may be acute. Her xray's did not have any concerns with respect to odontoid displacement or other issues. She was interested in the bone growth stimulator. It was recommended that she follow up in 3 months with repeat imaging. At her last visit on 12/19/2023 she stated she had continual posterior cervical pain. She denied any radicular symptoms. Patient stated over the last week or so she had noticed left hand numbness. She reported using Tylenol as needed for the pain. She denied dexterity issues. She did not get her x-rays prior to her visit. She denied any recent falls, numbness, tingling or bowel/ bladder incontinence. Patient using a cane for assistance with ambulation. Patient still had her [place] collar on and stated she wanted it off. She noted she continued with her bone growth stimulator. There was concern for a new upper motor neuron finding that was not perviously documented. She was to obtain a CT myelogram of the cervical spine as she could not obtain an MRI due to her bladder stimulator. She was to follow up once completed. At her last visit on 02/01/2024 she stated she continued with very little cervical pain and headaches, but stated the headaches were unrelated to her cervical spine. Denied any radicular symptoms. Continued with left hand numbness. She continued to be off balance and unsteady with use of a cane, but reported this was improving. Denied any falls, loss of bowel or bladder. She had been complaint with her cervical collar. Noted she continued with her bone growth stimulator. 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 This would almost completely remove her ability to move her neck. The goal of surgery be to arrest neurologic progression and not necessarily to achieve neurologic improvement. In this context I think that continuing to wear the cervical collar is the less morbid of the [address] myelogram does not show evidence of healing of her C1-2 fracture we did articulate a plan to continue use of her bone growth stimulator given that there is little downside to doing so. It was recommended that at that time, she continue with conservative treatment and to follow up in 3 months. At her last visit on 04/30/2024 she stated she had been doing well. She denied any cervical pain or headaches. Denied any radicular pain. Denied paresthesia. Noted taking tylenol as needed. Reported a fall the day before [place] where she slid out of a chair onto her bottom. Denied any injuries. Denied feeling off balance and unsteady, but continued with use of cane. She had been compliant with her cervical collar at all times and wears her bone growth stimulator daily. She was having no evident motion at the site of her odontoid fracture on flexion-extension films. (more content not included)... Normal [facility] CT CERVICAL SPINE WO IVCONon 09-03-2024 CT CERVICAL SPINE WO IVCON * * *Final Report* * * DATE OF EXAM: Sep 03 2024 8:25AM A1C 0505 - CT CERVICAL SPINE WO IVCON / PROCEDURE REASON: Closed odontoid fracture, sequela * * * * Physician Interpretation * * * * EXAMINATION: CT CERVICAL SPINE WO IVCON CLINICAL HISTORY: Closed odontoid fracture, sequela TECHNIQUE: Spiral, high resolution axial unenhanced images were obtained from the skull base to the cervicothoracic junction with sagittal and coronal planar reconstructions. MQ: CTCSPWO_5 CT Radiation dose: Integrated CT Dose-Length Product (DLP) for this visit = 401.64 mGy*cm CT Dose Reduction Employed: Automated exposure control (AEC) COMPARISON: 01/04/2024 CT myelogram RESULT: Counting reference: Craniocervical junction. Anatomic Variants: None. Certified Medical Biller (topogram) images: Bilateral carotid calcifications Alignment: Unchanged AP and lateral alignment which includes reversal normal lower cervical spine. Unchanged 3 mm anterolisthesis C4-5 level. Craniocervical junction: Stable corticated bone superior to a normally developed dens, likely representing a persistent ossiculum terminale. Osseous structures/fracture: . Redemonstration type II odontoid process fracture. Compared to previous exam, mild degree of interval healing of the fracture, consistent with incomplete fusion. However, fracture line is still visualized Redemonstration advanced degenerative disc/endplate degenerative changes C5-6 level Cervical soft tissues: The paraspinal soft tissues are within normal limits. Degenerative changes: Redemonstration of central canal narrowing secondary to central disc bulge/protrusion at the C2-3 and C3-4 level. Mild degree of positive mass effect on the ventral cord, unchanged. Degenerative left foraminal stenosis C3-4 level. Unchanged multilevel degenerative central and foraminal stenotic changes throughout the cervical spine secondary to uncovertebral hypertrophy, posterior osteophytes and facet arthropathy as well as disc bulging. IMPRESSION: Redemonstration type II odontoid process fracture. Compared to previous CT exam, mild degree of interval healing of the fracture, consistent with incomplete fusion. However, fracture line is still visualized. Unchanged alignment of the fracture components. Redemonstration of subcortical cyst involving the odontoid process. Anatomic Variant: None. Assume 7 cervical vertebrae with counting from the craniocervical junction. 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[employer] Transcribe Date/Time: Sep 03 2024 10:44A Dictated by : MICHAEL RICHARDS MD This examination was interpreted and the report reviewed and electronically signed by: MICHAEL RICHARDS MD on Sep 03 2024 10:52AM EST [id number] Normal [facility] CT Cervical spine WO contras ton 09-03-2024 IMPRESSION: Redemonstration type II odontoid process fracture. Compared to previous CT exam, mild degree of interval healing of the fracture, consistent with incomplete fusion. However, fracture line is still visualized. Unchanged alignment of the fracture components. Redemonstration of subcortical cyst involving the odontoid process. Anatomic Variant: None. Assume 7 cervical vertebrae with counting from the craniocervical junction. 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[employer] Transcribe Date/Time: Sep 03 2024 10:44A Dictated by : MICHAEL RICHARDS MD This examination was interpreted and the report reviewed and electronically signed by: MICHAEL RICHARDS MD on Sep 03 2024 10:52AM EST [facility] * * *Final Report* * * DATE OF EXAM: Sep 03 2024 8:25AM A1C 0505 - CT CERVICAL SPINE WO IVCON / PROCEDURE REASON: Closed odontoid fracture, sequela * * * * Physician Interpretation * * * * EXAMINATION: CT CERVICAL SPINE WO IVCON CLINICAL HISTORY: Closed odontoid fracture, sequela TECHNIQUE: Spiral, high resolution axial unenhanced images were obtained from the skull base to the cervicothoracic junction with sagittal and coronal planar reconstructions. MQ: CTCSPWO_5 CT Radiation dose: Integrated CT Dose-Length Product (DLP) for this visit = 401.64 mGy*cm CT Dose Reduction Employed: Automated exposure control (AEC) COMPARISON: 01/04/2024 CT myelogram RESULT: Counting reference: Craniocervical junction. Anatomic Variants: None. Certified Medical Biller (topogram) images: Bilateral carotid calcifications Alignment: Unchanged AP and lateral alignment which includes reversal normal lower cervical spine. Unchanged 3 mm anterolisthesis C4-5 level. Craniocervical junction: Stable corticated bone superior to a normally developed dens, likely representing a persistent ossiculum terminale. Osseous structures/fracture: . Redemonstration type II odontoid process fracture. Compared to previous exam, mild degree of interval healing of the fracture, consistent with incomplete fusion. However, fracture line is still visualized Redemonstration advanced degenerative disc/endplate degenerative changes C5-6 level Cervical soft tissues: The paraspinal soft tissues are within normal limits. Degenerative changes: Redemonstration of central canal narrowing secondary to central disc bulge/protrusion at the C2-3 and C3-4 level. Mild degree of positive mass effect on the ventral cord, unchanged. Degenerative left foraminal stenosis C3-4 level. Unchanged multilevel degenerative central and foraminal stenotic changes throughout the cervical spine secondary to uncovertebral hypertrophy, posterior osteophytes and facet arthropathy as well as disc bulging. [facility] Provider, [facility] - 09/03/2024 * * *Final Report* * * DATE OF EXAM: Sep 03 2024 8:25AM A1C 0505 - CT CERVICAL SPINE WO IVCON / PROCEDURE REASON: Closed odontoid fracture, sequela * * * * Physician Interpretation * * * * EXAMINATION: CT CERVICAL SPINE WO IVCON CLINICAL HISTORY: Closed odontoid fracture, sequela TECHNIQUE: Spiral, high resolution axial unenhanced images were obtained from the skull base to the cervicothoracic junction with sagittal and coronal planar reconstructions. MQ: CTCSPWO_5 CT Radiation dose: Integrated CT Dose-Length Product (DLP) for this visit = 401.64 mGy*cm CT Dose Reduction Employed: Automated exposure control (AEC) COMPARISON: 01/04/2024 CT myelogram RESULT: Counting reference: Craniocervical junction. Anatomic Variants: None. Certified Medical Biller (topogram) images: Bilateral carotid calcifications Alignment: Unchanged AP and lateral alignment which includes reversal normal lower cervical spine. Unchanged 3 mm anterolisthesis C4-5 level. Craniocervical junction: Stable corticated bone superior to a normally developed dens, likely representing a persistent ossiculum terminale. Osseous structures/fracture: . Redemonstration type II odontoid process fracture. Compared to previous exam, mild degree of interval healing of the fracture, consistent with incomplete fusion. However, fracture line is still visualized Redemonstration advanced degenerative disc/endplate degenerative changes C5-6 level Cervical soft tissues: The paraspinal soft tissues are within normal limits. Degenerative changes: Redemonstration of central canal narrowing secondary to central disc bulge/protrusion at the C2-3 and C3-4 level. Mild degree of positive mass effect on the ventral cord, unchanged. Degenerative left foraminal stenosis C3-4 level. Unchanged multilevel degenerative central and foraminal stenotic changes throughout the cervical spine secondary to uncovertebral hypertrophy, posterior osteophytes and facet arthropathy as well as disc bulging. IMPRESSION IMPRESSION: Redemonstration type II odontoid process fracture. Compared to previous CT exam, mild degree of interval healing of the fracture, consistent with incomplete fusion. However, fracture line is still visualized. Unchanged alignment of the fracture components. Redemonstration of subcortical cyst involving the odontoid process. Anatomic Variant: None. Assume 7 cervical vertebrae with counting from the craniocervical junction. 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[employer] Transcribe Date/Time: Sep 03 2024 10:44A Dictated by : MICHAEL RICHARDS MD This examination was interpreted and the report reviewed and electronically signed by: MICHAEL RICHARDS MD on Sep 03 2024 10:52AM EST [facility] Radiology Study observation (narrative) [facility] CT Cervical spine WO contras tOrdered By: [facility] Provider on 09-03-2024 [facility] XR CERV 5V AP/LAT/FLX/EXT/OD ONon 09-03-2024 XR CERV 5V AP/LAT/FLX/EXT/ODON * * *Final Report* * * DATE OF EXAM: Sep 03 2024 8:39AM A1X 5312 - XR CERV 5V AP/LAT/FLX/EXT/ODON / PROCEDURE REASON: Closed odontoid fracture, sequela * * * * Physician Interpretation * * * * EXAMINATION: XR CERV 5V AP/LAT/FLX/EXT/ODON HISTORY: 08/20/23 fall type 2 odontoid fracture, neck pain, left hand numbn Closed odontoid fracture, sequela . TECHNIQUE: XR CERV 5V AP/LAT/FLX/EXT/ODON Laterality: NOT APPLICABLE Number of different views (projections): 5 M: XB_1 COMPARISON: Radiograph 07/23/[address] cervical spine September 03, 2024 RESULT: The odontoid fracture is difficult to visualize by radiograph and is better characterized by the CT done the same day. No malalignment with neutral and flexion view. There could be slight retrolisthesis of the odontoid on extension view. At C4-C5 there is 2 mm anterolisthesis C4-C5 on neutral view. This slightly accentuates on flexion view and reduces to 2 mm on extension view. Moderate degenerative disc space narrowing C5-C6 and C6-C7. No other significant abnormality. IMPRESSION: Odontoid fracture is not well visualized by radiograph. Please refer to recent CT. There may be slight retrolisthesis of the odontoid on extension. Additional degenerative changes as detailed. 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[employer] Transcribe Date/Time: Sep 06 2024 3:38P Dictated by : LYNDA IBARRA MD This examination was interpreted and the report reviewed and electronically signed by: LYNDA IBARRA MD on Sep 06 2024 3:40PM EST [id number] N [facility] CNOVon 08-27-2024 CNOV Office Visit (FAMPWS ) GEORGINA SEGURA ([id number]) 1945 F Date Time Provider Department 08/27/24 2:20 PM SYLVIE ARIZA During your visit today, we recorded the following information about you: Pulse Blood pressure 80/minute 148/78 Sylvie Ariza, KNIFE OPERATOR.FILING AND POLISHING SUPERVISOR 08/27/2024 2:44 PM Signed This is a 79 year old female who presents today with: Patient presents with: Follow Up: Back pain/fracture ER F/U: [facility] Fall 08/24/24 HISTORY OF PRESENT ILLNESS: Georgina Segura is a 79 year old female. Patient presents with: Follow Up: Back pain/fracture ER F/U: [facility] Fall 08/24/24 Pt. Seen for T 12 mild compression fracture. ER medicated her for pain with morphine. Compression fracture found here and sent there to be evaluated for bracing or kyphoplasty- that was not done. ER Reported that they hadn't changed from Xray report. Nothing else done. Tylenol helps. At times pain is a 9/10. Hurts on both lateral lower abdomen. Movement hurts. Hx of osteoporosis No loss of bowel or bladder function Sleeps on couch, wakes up at 2-3 am in the morning, then will go to bed and put home O2 on Daughter wants her to see Palliative Care PAST MEDICAL HISTORY: PAST MEDICAL HISTORY Diagnosis Date Arthritis of both hands 05/05/2016 Asthma ([facility]) 03/11/2010 Cervical disc disease 06/06/2013 Dementia without behavioral disturbance ([facility]) 10/11/2022 Depression, recurrent 10/11/2022 Diarrhea Diffuse cystic mastopathy 11/03/2005 Elevated CK 04/26/2012 Esophageal reflux 11/03/2005 Fracture of skull ([facility]) 02/16/2023 Hyperlipidemia 04/26/2012 Hypothyroidism, acquired 08/04/2022 Impingement syndrome of right shoulder 10/11/2016 Irritable bowel syndrome with diarrhea 05/31/2018 Mild intermittent asthma, uncomplicated ([facility]) 11/23/2022 Neurogenic bladder, NOS Odontoid fracture ([facility]) 08/20/2023 Other and unspecified hyperlipidemia Other forms of migraine Overactive bladder 02/12/2009 Primary localized osteoarthrosis, lower leg Rotator cuff syndrome 02/12/2009 Situational depression 05/31/2018 Statin intolerance 07/03/2018 Supraspinatus tendonitis 12/06/2012 Tear of biceps tendon 05/18/2017 Unspecified sleep apnea Urinary incontinence 03/11/2010 PAST SURGICAL HISTORY Procedure Laterality Date ADENOIDECTOMY PRIMARY Adenoidectomy APPENDECTOMY COLONOSCOPY W/BIOPSY SINGLE/MULTIPLE 06/21/11 DILATION AND CURETTAGE DXAND/THER NONOBSTETRIC Dilation AND curettage LAPAROSCOPY SURG CHOLECYSTECTOMY 07-15-06 Cholecystectomy, lap PAST SURGICAL HISTORY OF N/A 2017 urinary implant device TONSILLECTOMY PRIMARY/SECONDARY Tonsillectomy VAGINAL HYSTERECTOMY UTERUS 250 GM/< Hysterectomy, vaginal ALLERGIES Vioxx [Rofecoxib] and Zocor [Simvastatin] MEDICATIONS Current Outpatient Medications Medication Sig solifenacin 10 mg tablet Take 1 tablet by mouth once daily. lactulose 10 gram/15 mL solution Take 30 mL by mouth two times a day as needed. Incontinence Pad, Liner, Disp pads 1 pad two times a day as needed. mirabegron (MYRBETRIQ) 50 mg Tb24 Take 1 tablet by mouth once daily. levothyroxine (SYNTHROID) 50 mcg tablet TAKE 1 TABLET BY MOUTH ONCE DAILY AT 6 AM FLUoxetine (PROZAC) 20 mg capsule Take 1 capsule by mouth every afternoon. famotidine (PEPCID) 40 mg tablet Take 1 tablet by mouth once daily. ezetimibe (ZETIA) 10 mg tablet Take 1 tablet by mouth once daily. carvedilol (COREG) 6.25 mg tablet Take 1 tablet by mouth two times a day with meals. pantoprazole DR (PROTONIX) 40 mg tablet Take 1 tablet by mouth once daily. ipratropium bromide (ATROVENT) 42 mcg (0.06 %) nasal spray Use 2 Sprays in the nose three times a day. diclofenac (VOLTAREN ARTHRITIS PAIN) 1 % topical gel Apply 2 g to affected area four times daily. (Patient not taking: Reported on 07/30/2024) cyclobenzaprine (FLEXERIL) 5 mg tablet Take 1 tablet by mouth three times a day. (Patient not taking: Reported on 07/30/2024) albuterol HFA (PROVENTIL HFA, VENTOLIN HFA) 90 mcg/actuation inhaler Inhale 2 Puffs as instructed every 4 hours as needed. No current facility-administered medications for this visit. FAMILY HISTORY Problem Relation Age of Onset other (dementia [Other]) Father Heart Father Tremor Father Heart Mother Heart Brother Tremor Daughter Tremor Son Social History Tobacco Use Smoking status: Never Smokeless tobacco: Never Substance Use Topics Alcohol use: No Drug use: No EXAM: BP 148/78 Pulse 80 SpO2 94% PHYSICAL EXAM: Physical Exam Vitals reviewed. Constitutional: Appearance: Normal appearance. HENT: Head: Normocephalic. Cardiovascular: Rate and Rhythm: Normal rate and regular rhythm. Pulses: Normal pulses. Heart sounds: Normal heart sounds. Pulmonary: Effort: Pulmonary effort is normal. Breath sounds: Normal breath sounds. Abdominal: General: Bowel sounds are normal. Pa (more content not included)... Normal [facility] Emergency Department Summary on 08-24-2024 Emergency Department Summary [facility] Medical Records Department [address] [place] [id number] Emergency Department Summary 08/24/24 MR#: [id number] Acct: [id number] Name: GEORGINA SEGURA Rep #: [id number] : 1945 79 From: Ezequiel Keller DO PCP: Dr. Dinah Melgar MD Status:DEP ER Location: ED HPI HPI - Fall History of Present Illness Chief Complaint: Fall Narrative Narrative: Chief complaint and HPI: Lumbar back pain. 79-year-old female with past medical history of sleep apnea, dementia, frequent falls, asthma presents for evaluation of lumbar back pain after mechanical fall. Patient states that she was reaching over her TV dinner stand to hang up the phone when she lost her balance and fell onto the carpeted floor. States she landed on her back. Was able to get a hold of the telephone to call family. Family called EMS. Patient denies hitting her head. No LOC. Not on blood thinners. States her only pain/injury is her low back. States she recently injured this from a mechanical fall a couple weeks ago, has a known fracture. She denies any fever, chills, shortness of breath, chest pain abdominal pain, nausea, vomiting, weakness, numbness/tingling, dysuria, headache, neck pain. On Chart review, patient was seen in our emergency department office 08/12/2024 for back pain after a fall. She had x-rays that show no acute fracture. She had a CT lumbar spine on 08/13 that showed no traumatic injury but degenerative changes, most prominent at L3-L4. Review of systems: See HPI Medications: As listed on the chart Allergies: As listed on the chart PFSH: Per chart Vital signs: As listed on the chart. Reviewed. Physical exam: Gen: A O x3, NAD Head: Normocephalic, atraumatic Eyes: No sclera icterus, conjunctiva clear, PERRL, EOMI ENT: TMs clear BL, moist mucous membranes, no swelling/lacerations/ blood in the mouth or the nares, No nasal septal hematoma, no facial tenderness Neck: Trachea midline, No JVD, Nontender full range of motion, CV: RRR, no murmurs, no chest wall TTP Resp: Lungs CTA BL, no w/r/c GI: Abd soft, non-distended, non-tender, no r/r/g Musc: Full ROM, no deformity, no spinal TTP, no daphne step-offs, tender to palpation in the bilateral lumbar paraspinal musculature Skin: Warm, dry, intact Neuro: Alert, oriented, grossly intact, sensation intact, GCS 15 Psych: Cooperative, appropriate mood and affect [facility] Medical History NAYA (obstructive sleep apnea) Noncompliance with CPAP treatment Venous insufficiency (chronic) (peripheral) Dementia Dehydration Neurogenic bladder Frequent falls Glucose intolerance (impaired glucose tolerance) Loss of hearing Post-menopausal Ambulates with cane Arthritis Back pain Injury of head and neck Asthma CPAP (continuous positive airway pressure) dependence History of pain when walking Wears glasses Depression Overactive bladder High cholesterol Easy bruising Non-smoker PONV (postoperative nausea and vomiting) GERD (gastroesophageal reflux disease) Hypothyroid Home Medications ???Medication ???Instructions ???Recorded ???Last Taken ???Type famotidine 40 mg tablet 40 mg PO QHS GERD 06/11/22 Unknown History mirabegron 50 mg tablet,extended 50 mg PO DAILY OAB 06/11/22 Unknow n History release 24 hr (Myrbetriq) pantoprazole 40 mg granules 40 mg PO DAILY GERD 06/11/2208/22 History delayed-release for susp in packet ezetimibe 10 mg tablet 10 mg PO DAILY cholestorol 3 08/23/23 History albuterol sulfate 90 mcg/actuation 2 inh inhalation Q4H PRN 4 Unknown History aerosol inhaler SOB,Wheezing acetaminophen 500 mg tablet 1,000 mg (2 x 500 mg) PO Q8 pain 0 09/07/23 Unknown Rx #180 tabs carvedilol 6.25 mg tablet 6.25 mg PO BIDCM heart #60 tabs Unknown Rx fluoxetine 20 mg capsule (Prozac) 20 mg PO DAILY mood #30 caps 06/01 Unknown Rx ipratropium bromide 42 mcg (0.06 2 spray NASAL TID #1 BOTTLE Unknown Rx %) nasal spray levothyroxine 50 mcg tablet 50 mcg PO DAILY@0600 thyroid #30 0 09/07/23 Unknown Rx tabs solifenacin 10 mg tablet 10 mg PO DAILY bladder 08/12/24 Un known History polyethylene glycol 3350 17 17 g PO BID PRN constipation 08/13 Unknown History gram/dose oral powder (Miralax) lactulose 10 gram/15 mL oral 15 ml PO PRN 08/21/24 Unknown Hist ory solution Allergy/AdvReac Type Severity Reaction Status Date / Time rofecoxib (From Vioxx) Allergy Unknown Verified 08/21/24 16:19 Surgical History Hx of surgical biopsy History of bladder surgery History of partial hysterectomy History of appendectomy History of cholecystectomy H/O lateral meniscus repair of right knee Soci (more content not included)... Normal [facility] Spine Lumbar without Contras ton 08-24-2024 Spine Lumbar without Contrast [facility] Imaging Services [address] [place] [address] Spine Lumbar without Contrast MR#: [id number] Acct: [id number] Name: GEORGINA SEGURA Rep #: [id number] : 1945 F 79 From: Max Love MD PCP: Dr. Dinah Melgar MD Status: REG ER Study: Spine Lumbar without Contrast Date of Exam: Exam# [id number] Ordering Dr: Ezequiel Keller DO PROCEDURE: SPINE LUMBAR WITHOUT CONTRAST 08/24/2024 REASON FOR EXAM: PAIN, TRAUMA TECHNIQUE: Lumbar spine CT without contrast. Coronal and Sagittal reconstruction series were provided. One or more dose reduction techniques were used (e.g., Automated exposure control, adjustment of the mA and/or kV according to patient size, use of iterative reconstruction technique COMPARISON: 08/14/2019 FINDINGS: Vertebrae: Mild wedge compression fracture of T12 which is unchanged. Alignment: Mild levoscoliosis centered at L2. 5 mm of anterolisthesis of L3 on L4 and L4 on L5 which is unchanged. L1-2: Moderate bilobed disc protrusion with vacuum disc formation produces moderate spinal stenosis and moderate bilateral neural foraminal stenosis. L2-3: Mild bilateral facet hypertrophy and severe ligamentum flavum hypertrophy. Moderate bilobed disc protrusion with vacuum disc formation produces moderate spinal stenosis and moderate bilateral neural foraminal stenosis. L3-4: Moderate bilateral facet hypertrophy and severe ligamentum flavum hypertrophy. 5 mm of anterolisthesis of L3 on L4 with a moderate bilobed disc protrusion produces severe spinal stenosis and moderate bilateral neural foraminal stenosis. L4-5: Moderate bilateral facet hypertrophy and ligamentum flavum hypertrophy. 5 mm of anterolisthesis of L4 on L5 with a mild broad disc protrusion produces moderate spinal stenosis and moderate bilateral neural foraminal stenosis. L5-S1: Mild broad disc protrusion produces mild spinal stenosis and mild bilateral neural foraminal stenosis. Sacrum: Unremarkable. Sacral stimulator. CT/Spine Lumbar without Contrast IMPRESSION: Chronic mild wedge compression fracture of T12 which is unchanged. No new fracture or subluxation. Mild levoscoliosis with degenerative disc disease, similar to the prior study. Reading Location: [id number] CC: Dr. Ezequiel Keller DO; Dr. Dinah Melgar MD 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Signed Normal [facility] Abdomen/Pelvis W IV Cont ONL Yon 08-21-2024 Abdomen/Pelvis W IV Cont ONLY [facility] Imaging Services [address] [place] [id number] Abdomen/Pelvis W IV Cont ONLY MR#: [id number] Acct: [id number] Name: GEORGINA SEGURA Rep #: [id number] : 1945 F 79 From: Levi Johnson DO PCP: Dr. Dinah Melgar MD Status: REG ER Study: Abdomen/Pelvis W IV Cont ONLY Date of Exam: Exam# [id number] Ordering Dr: Quentin Mckeon MICROSCOPISTKelle PROCEDURE: ABDOMEN/PELVIS W IV CONT ONLY 08/21/2024 REASON FOR EXAM: ABDOMINAL PAIN TECHNIQUE: Abdomen and pelvis CT with intravenous contrast. Coronal and Sagittal reconstruction series were provided. PATIENT PREPARATION: Per protocol ORAL CONTRAST TYPE: None. AMOUNT: mL CONTRAST: Isovue 370 VOLUME: 99 mL Not Provided Gauge IV One or more dose reduction techniques were used (e.g., Automated exposure control, adjustment of the mA and/or kV according to patient size, use of iterative reconstruction technique. RADIATION DOSE SUMMARY: CTDlvol: 34 mGy DLP: 1133 mGycm COMPARISON: None FINDINGS: Lung bases: Mild dependent atelectasis Liver: Normal size. No mass. Gallbladder: Surgically absent. Spleen: Normal size. Pancreas: Diffuse fatty atrophy. Adrenals: Unremarkable Kidneys: Choose on Bladder: Unremarkable Reproductive Organs: Prior hysterectomy. Adnexal regions are unremarkable. Bowel: Evaluation of the bowel loops are limited due to lack of oral contrast. Stomach is decompressed. No inflammatory changes of the small bowel. Mild stool burden within the right colon. No inflammatory changes of the large bowel. Appendix: The appendix is not clearly visualized. Lymph nodes: No lymphadenopathy. Vasculature: Atherosclerotic calcification of the abdominal aorta and branches. Peritoneum / Retroperitoneum: No free air or free fluid. Bones: Degenerative changes of the lumbar spine. CT/Abdomen/Pelvis W IV Cont ONLY IMPRESSION: NO ACUTE FINDINGS AT THE ABDOMEN OR PELVIS ON CONTRAST-ENHANCED CT. [facility] CC: ASIF Mckeon; Dr. Dinah Melgar MD 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Signed Normal [facility] Absolute neutrophil countOrd ered By: Abelardo Reddy on 08-21-2024 Neutrophils (Bld) [#/Vol] 3.5 10*3/uL 2.0-7.7 [facility] Anion gap in Serum or Plasma Ordered By: Quentin Mckeon on 08-21-2024 Anion gap [Moles/Vol] 14 mmol/L 09-20 [facility] BUN/creatinine ratioOrdered By: Quentin Mckeon on 08-21-2024 Urea nitrogen/Creatinine [Mass ratio] 8.7 mg/mg Low 02-25 [facility] Basophil percentageOrdered B y: Abelardo Reddy on 08-21-2024 Basophils/100 WBC (Bld) 0.8 % 0-1 [facility] Bilirubin Test strip Ql (U)O rdered By: Quentin Mckeon on 08-21-2024 Bilirubin Ql (U) Negative Negative [facility] Bilirubin, totalOrdered By: Quentin Mckeon on 08-21-2024 Bilirubin [Mass/Vol] 0.48 mg/dL 0.00-1.30 [facility] CBC W/Diff, Automatedon 08-07 Absolute Lymph 2.26 X10 3/uL Normal 0.83-4.51 [facility] Comment on above: Order Comment: REDRA W. PREVIOUS SPECIMEN REJECTED DUE TOCLOTTED SPECIMEN. 08/21/242157. Performed By: #### L 501.9520, L501.9985, L501.5200 #### [facility] [address] [place], [address] Absolute Neut 3.5 X10 3/uL Normal 2.0-7.7 [facility] Comment on above: Order Comment: REDRA W. PREVIOUS SPECIMEN REJECTED DUE TOCLOTTED SPECIMEN. 08/21/242157. Performed By: #### L 501.9520, L501.9985, L501.5200 #### [facility] [address] [place], [address] Basophils/100 WBC (Bld) 0.8 % Normal 0-1 [facility] Comment on above: Order Comment: REDRA W. PREVIOUS SPECIMEN REJECTED DUE TOCLOTTED SPECIMEN. 08/21/242157. Performed By: #### L 501.9520, L501.9985, L501.5200 #### [facility] [address] [place], [address] Eosinophils/100 WBC (Bld) 1.8 % Normal 0-5 [facility] Comment on above: Order Comment: REDRA W. PREVIOUS SPECIMEN REJECTED DUE TOCLOTTED SPECIMEN. 08/21/242157. Performed By: #### L 501.9520, L501.9985, L501.5200 #### [facility] [address] [place], [address] Erythrocyte distribution width (RBC) [Ratio] 12.7 % Normal 11.6-14.6 [facility] Comment on above: Order Comment: REDRA W. PREVIOUS SPECIMEN REJECTED DUE TOCLOTTED SPECIMEN. 08/21/242157. Performed By: #### L 501.9520, L501.9985, L501.5200 #### [facility] [address] [place], [address] Hematocrit (Bld) [Volume fraction] 37.0 % Normal 37-47 [facility] Comment on above: Order Comment: REDRA W. PREVIOUS SPECIMEN REJECTED DUE TOCLOTTED SPECIMEN. 08/21/242157. Performed By: #### L 501.9520, L501.9985, L501.5200 #### [facility] [address] [place], [address] Hemoglobin (Bld) [Mass/Vol] 12.3 g/dL Normal 12.0-15.0 [facility] Comment on above: Order Comment: REDRA W. PREVIOUS SPECIMEN REJECTED DUE TOCLOTTED SPECIMEN. 08/21/242157. Performed By: #### L 501.9520, L501.9985, L501.5200 #### [facility] [address] [place], [address] IG% 0.300 Normal 0.0-0.9 [facility] Comment on above: Order Comment: REDRA W. PREVIOUS SPECIMEN REJECTED DUE TOCLOTTED SPECIMEN. 08/21/242157. Result Comment: IG% - Immature Granulocytes (promyelocytes, myelocytes and metamyelocytes) > 1% indicates that a LEFT SHIFT is Present. Performed By: #### L 501.9520, L501.9985, L501.5200 #### [facility] [address] [place], [address] Lymphocytes/100 WBC (Bld) 34.0 % Normal 19-41 [facility] Comment on above: Order Comment: REDRA W. PREVIOUS SPECIMEN REJECTED DUE TOCLOTTED SPECIMEN. 08/21/242157. Performed By: #### L 501.9520, L501.9985, L501.5200 #### [facility] [address] [place], [address] MCH (RBC) [Entitic mass] 30.1 pg Normal 27.0-32.0 [facility] Comment on above: Order Comment: REDRA W. PREVIOUS SPECIMEN REJECTED DUE TOCLOTTED SPECIMEN. 08/21/242157. Performed By: #### L 501.9520, L501.9985, L501.5200 #### [facility] [address] [place], [address] MCHC (RBC) [Mass/Vol] 33.2 g/dL Normal 32-36 [facility] Comment on above: Order Comment: REDRA W. PREVIOUS SPECIMEN REJECTED DUE TOCLOTTED SPECIMEN. 08/21/242157. Performed By: #### L 501.9520, L501.9985, L501.5200 #### [facility] [address] [place], [address] MCV (RBC) [Entitic vol] 90.5 fL Normal 81-99 [facility] Comment on above: Order Comment: REDRA W. PREVIOUS SPECIMEN REJECTED DUE TOCLOTTED SPECIMEN. 08/21/242157. Performed By: #### L 501.9520, L501.9985, L501.5200 #### [facility] [address] [place], [address] Monocytes/100 WBC (Bld) 10.5 % High 0-10 [facility] Comment on above: Order Comment: REDRA W. PREVIOUS SPECIMEN REJECTED DUE TOCLOTTED SPECIMEN. 08/21/242157. Performed By: #### L 501.9520, L501.9985, L501.5200 #### [facility] [address] [place], [address] Neutrophils/100 WBC (Bld) 52.6 % Normal 47-70 [facility] Comment on above: Order Comment: REDRA W. PREVIOUS SPECIMEN REJECTED DUE TOCLOTTED SPECIMEN. 08/21/242157. Performed By: #### L 501.9520, L501.9985, L501.5200 #### [facility] [address] [place], [address] Nucleated RBC (Bld) [#/Vol] 0 10*3/uL Normal 0-5 [facility] Comment on above: Order Comment: REDRA W. PREVIOUS SPECIMEN REJECTED DUE TOCLOTTED SPECIMEN. 08/21/242157. Performed By: #### L 501.9520, L501.9985, L501.5200 #### [facility] [address] [place], [address] Platelet mean volume (Bld) [Entitic vol] 8.7 fL Normal 6.2-12.0 [facility] Comment on above: Order Comment: REDRA W. PREVIOUS SPECIMEN REJECTED DUE TOCLOTTED SPECIMEN. 08/21/242157. Performed By: #### L 501.9520, L501.9985, L501.5200 #### [facility] [address] [place], [address] Platelets (Bld) [#/Vol] 306 10*3/uL Normal 150-450 [facility] Comment on above: Order Comment: REDRA W. PREVIOUS SPECIMEN REJECTED DUE TOCLOTTED SPECIMEN. 08/21/242157. Performed By: #### L 501.9520, L501.9985, L501.5200 #### [facility] [address] [place], [address] RBC (Bld) [#/Vol] 4.09 10*6/uL Low 4.2-5.4 [facility] Comment on above: Order Comment: REDRA W. PREVIOUS SPECIMEN REJECTED DUE TOCLOTTED SPECIMEN. 08/21/242157. Performed By: #### L 501.9520, L501.9985, L501.5200 #### [facility] [address] [place], [address] RDW SD 41.7 fl Normal 35.1-43.9 [facility] Comment on above: Order Comment: REDRA W. PREVIOUS SPECIMEN REJECTED DUE TOCLOTTED SPECIMEN. 08/21/242157. Performed By: #### L 501.9520, L501.9985, L501.5200 #### [facility] [address] [place], [address] WBC (Bld) [#/Vol] 6.7 10*3/uL Normal 4.4-11.0 [facility] Comment on above: Order Comment: REDRA W. PREVIOUS SPECIMEN REJECTED DUE TOCLOTTED SPECIMEN. 08/21/242157. Performed By: #### L 501.9520, L501.9985, L501.5200 #### [facility] [address] [place], [address] Absolute Neut Normal 2.0-7.7 [facility] Comment on above: Result Comment: This specimen has been REJECTED due to Laboratory criteria: Clotted. ED-JUAN has been notified of need of recollection. 08/21/242156 Performed By: #### L 500.4050, L100.0100 #### [facility] [address] [place], [address] HCT Normal 37-47 [facility] Comment on above: Result Comment: This specimen has been REJECTED due to Laboratory criteria: Clotted. ED-JUAN has been notified of need of recollection. 08/21/242156 Performed By: #### L 500.4050, L100.0100 #### [facility] [address] [place], [address] HGB Normal 12.0-15.0 [facility] Comment on above: Result Comment: This specimen has been REJECTED due to Laboratory criteria: Clotted. ED-JUAN has been notified of need of recollection. 08/21/242156 Performed By: #### L 500.4050, L100.0100 #### [facility] [address] [place], [address] MCH Normal 27.0-32.0 [facility] Comment on above: Result Comment: This specimen has been REJECTED due to Laboratory criteria: Clotted. ED-JUAN has been notified of need of recollection. 08/21/242156 Performed By: #### L 500.4050, L100.0100 #### [facility] [address] [place], [address] MCHC Normal 32-36 [facility] Comment on above: Result Comment: This specimen has been REJECTED due to Laboratory criteria: Clotted. ED-JUAN has been notified of need of recollection. 08/21/242156 Performed By: #### L 500.4050, L100.0100 #### [facility] [address] [place], [address] MCV Normal 81-99 [facility] Comment on above: Result Comment: This specimen has been REJECTED due to Laboratory criteria: Clotted. ED-JUAN has been notified of need of recollection. 08/21/242156 Performed By: #### L 500.4050, L100.0100 #### [facility] [address] [place], [address] NEUT% Normal 47-70 [facility] Comment on above: Result Comment: This specimen has been REJECTED due to Laboratory criteria: Clotted. ED-JUAN has been notified of need of recollection. 08/21/242156 Performed By: #### L 500.4050, L100.0100 #### [facility] [address] [place], [address] PLT Normal 150-450 [facility] Comment on above: Result Comment: This specimen has been REJECTED due to Laboratory criteria: Clotted. ED-JUAN has been notified of need of recollection. 08/21/242156 Performed By: #### L 500.4050, L100.0100 #### [facility] [address] [place], [address] RBC Normal 4.2-5.4 [facility] Comment on above: Result Comment: This specimen has been REJECTED due to Laboratory criteria: Clotted. ED-JUAN has been notified of need of recollection. 08/21/242156 Performed By: #### L 500.4050, L100.0100 #### [facility] [address] [place], [address] RDW CV Normal 11.6-14.6 [facility] Comment on above: Result Comment: This specimen has been REJECTED due to Laboratory criteria: Clotted. ED-JUAN has been notified of need of recollection. 08/21/242156 Performed By: #### L 500.4050, L100.0100 #### [facility] [address] [place], [address] RDW SD Normal 35.1-43.9 [facility] Comment on above: Result Comment: This specimen has been REJECTED due to Laboratory criteria: Clotted. ED-JUAN has been notified of need of recollection. 08/21/242156 Performed By: #### L 500.4050, L100.0100 #### [facility] [address] [place], [address] WBC Normal 4.4-11.0 [facility] Comment on above: Result Comment: This specimen has been REJECTED due to Laboratory criteria: Clotted. ED-JUAN has been notified of need of recollection. 08/21/242156 Performed By: #### L 500.4050, L100.0100 #### [facility] [address] [place], [address] Carbon dioxide, total [Moles /volume] in Central venous bloodOrdered By: Quentin Mckeon on 08-21-2024 CO2 [Moles/Vol] 25.8 mmol/L 21.0-32.0 [facility] Chloride assayOrdered By: Arleen Mckeon on 08-21-2024 Chloride [Moles/Vol] 98 mmol/L 98-108 [facility] Comprehensive Metabolic Prof ilon 08-21-2024 Albumin [Mass/Vol] 4.9 g/dL High 3.4-4.8 [facility] Comment on above: Performed By: #### L 500.4050, L100.0100 #### [facility] [address] [place], [address] Albumin/Globulin [Mass ratio] 1.5 {ratio} Normal 0.9-2.4 [facility] Comment on above: Performed By: #### L 500.4050, L100.0100 #### [facility] [address] [place], [address] ALK PHOS 140 U/L High 35-104 [facility] Comment on above: Performed By: #### L 500.4050, L100.0100 #### [facility] [address] [place], [address] ALT [Catalytic activity/Vol] 22 U/L Normal <=34 [facility] Comment on above: Performed By: #### L 500.4050, L100.0100 #### [facility] [address] [place], [address] AST [Catalytic activity/Vol] 27 U/L Normal <=31 [facility] Comment on above: Performed By: #### L 500.4050, L100.0100 #### [facility] [address] [place], [address] Bilirubin [Mass/Vol] 0.48 mg/dL Normal 0.00-1.30 [facility] Comment on above: Performed By: #### L 500.4050, L100.0100 #### [facility] [address] [place], [address] BUN/CRE 8.7 RATIO Low 10-20 [facility] Comment on above: Performed By: #### L 500.4050, L100.0100 #### [facility] [address] [place], [address] Calcium [Mass/Vol] 10.4 mg/dL Normal 7.6-11.0 [facility] Comment on above: Performed By: #### L 500.4050, L100.0100 #### [facility] [address] [place], [address] Chloride [Moles/Vol] 98 mmol/L Normal 98-108 [facility] Comment on above: Performed By: #### L 500.4050, L100.0100 #### [facility] [address] [place], [address] CO2 [Moles/Vol] 25.8 mmol/L Normal 21.0-32.0 [facility] Comment on above: Performed By: #### L 500.4050, L100.0100 #### [facility] [address] [place], [address] Creatinine [Mass/Vol] 1.27 mg/dL High 0.70-1.20 [facility] Comment on above: Performed By: #### L 500.4050, L100.0100 #### [facility] [address] [place], [address] ECRCL 37.09 ml/min Low 50-250 [facility] Comment on above: Performed By: #### L 500.4050, L100.0100 #### [facility] [address] [place], [address] GAP 14 Normal 5-15 [facility] Comment on above: Performed By: #### L 500.4050, L100.0100 #### [facility] [address] [place], [address] GFR/1.73 sq M.predicted among non-blacks MDRD (S/P/Bld) [Vol rate/Area] 42 mL/min/{1.73_m2} Low >60 [facility] Comment on above: Result Comment: mL/m in/1.73m2 CKD-EPI Creatinine Equation (2020) Performed By: #### L 500.4050, L100.0100 #### [facility] [address] [place], [address] Globulin (S) [Mass/Vol] 3.2 g/dL Normal 2.2-4.2 [facility] Comment on above: Performed By: #### L 500.4050, L100.0100 #### [facility] [address] [place], [address] Glucose [Mass/Vol] 104 mg/dL High 70-99 [facility] Comment on above: Performed By: #### L 500.4050, L100.0100 #### [facility] [address] [place], [address] Potassium [Moles/Vol] 4.2 mmol/L Normal 3.3-5.1 [facility] Comment on above: Performed By: #### L 500.4050, L100.0100 #### [facility] [address] [place], [address] Sodium [Moles/Vol] 138 mmol/L Normal 133-145 [facility] Comment on above: Performed By: #### L 500.4050, L100.0100 #### [facility] [address] [place], [address] T PROT 8.1 g/dL Normal 5.9-8.4 [facility] Comment on above: Performed By: #### L 500.4050, L100.0100 #### [facility] [address] [place], [address] Urea nitrogen [Mass/Vol] 11 mg/dL Normal 4-19 [facility] Comment on above: Performed By: #### L 500.4050, L100.0100 #### [facility] [address] [place], [address] Emergency Department Summary on 08-21-2024 Emergency Department Summary [facility] Medical Records Department [address] [place] [address] Emergency Department Summary 08/21/24 MR#: [id number] Acct: [id number] Name: GEORGINA SEGURA Rep #: [id number] : 1945 79 From: Quentin Mckeon MICROSCOPISTKelle PCP: Dr. Dinah Melgar MD Status:REG ER Location: ED HPI History of Present Illness Chief Complaint: Constipation Narrative Narrative: Patient is an 79-year-old female with history of hypertension, hyperlipidemia, chronic back pain who presents the [facility] apartment with 8 days of difficulty having a bowel movement. Pay states he is also been having lower back pain. She does have a chronic T12 compression fracture. Patient on her x-ray of her back yesterday, did show some dilated bowel loops concerning for obstruction. Patient has a daughter that has been trying to help her with her constipation. Patient has tried magnesium citrate, MiraLAX, a rectal exam, enemas and nothing is helping. She states that her abdomen is getting more full and more distended and is here for evaluation. [facility] Medical History NAYA (obstructive sleep apnea) Noncompliance with CPAP treatment Venous insufficiency (chronic) (peripheral) Dementia Dehydration Neurogenic bladder Frequent falls Glucose intolerance (impaired glucose tolerance) Loss of hearing Post-menopausal Ambulates with cane Arthritis Back pain Injury of head and neck Asthma CPAP (continuous positive airway pressure) dependence History of pain when walking Wears glasses Depression Overactive bladder High cholesterol Easy bruising Non-smoker PONV (postoperative nausea and vomiting) GERD (gastroesophageal reflux disease) Hypothyroid Home Medications ???Medication ???Instructions ???Recorded ???Last Taken ???Type famotidine 40 mg tablet 40 mg PO QHS GERD 06/11/22 Unknown History mirabegron 50 mg tablet,extended 50 mg PO DAILY OAB 06/11/22 Unknow n History release 24 hr (Myrbetriq) pantoprazole 40 mg granules 40 mg PO DAILY GERD 06/11/2208/22 History delayed-release for susp in packet ezetimibe 10 mg tablet 10 mg PO DAILY cholestorol 3 08/23/23 History albuterol sulfate 90 mcg/actuation 2 inh inhalation Q4H PRN 4 Unknown History aerosol inhaler SOB,Wheezing acetaminophen 500 mg tablet 1,000 mg (2 x 500 mg) PO Q8 pain 0 09/07/23 Unknown Rx #180 tabs carvedilol 6.25 mg tablet 6.25 mg PO BIDCM heart #60 tabs Unknown Rx fluoxetine 20 mg capsule (Prozac) 20 mg PO DAILY mood #30 caps 0506/01 Unknown Rx ipratropium bromide 42 mcg (0.06 2 spray NASAL TID #1 BOTTLE Unknown Rx %) nasal spray levothyroxine 50 mcg tablet 50 mcg PO DAILY@0600 thyroid #30 0 09/07/23 Unknown Rx tabs solifenacin 10 mg tablet 10 mg PO DAILY bladder 08/12/24 Un known History polyethylene glycol 3350 17 17 g PO BID PRN constipation 08/13 Unknown History gram/dose oral powder (Miralax) lactulose 10 gram/15 mL oral 15 ml PO PRN 08/21/24 Unknown Hist ory solution Allergy/AdvReac Type Severity Reaction Status Date / Time rofecoxib (From Vioxx) Allergy Unknown Verified 08/21/24 16:19 Surgical History Hx of surgical biopsy History of bladder surgery History of partial hysterectomy History of appendectomy History of cholecystectomy H/O lateral meniscus repair of right knee Social History housing: house Smoking Status: Former smoker second hand exposure: Yes substance use type: does not use ROS ROS ED ROS Narrative Constitutional: Negative for fever, chills, weight loss, weakness Eyes: Negative for vision loss, vision change, double vision ENT: Negative for any sore throat, ear pain, congestion Cardiovascular: Negative for any chest pain, tightness, palpitations Respiratory: Negative for any cough, sputum production, hemoptysis, dyspnea, dyspnea on exertion, orthopnea Gastrointestinal: Negative for any nausea, vomiting, diarrhea, blood in stool, blood in vomit. Positive for abdominal pain, constipation : Negative for any urinary frequency, dysuria, retention, blood in urine Muscle skeletal: Negative for any neck pain. Positive for back pain Neurological: Negative for any headache, syncope, dizziness Skin: Negative for any rashes, itching, abrasions, lacerations Psychiatric: Negative for any depression, anxiety, stress, suicidal ideation, homicidal ideation Hematologic: Negative for any excessive bruising, easy bleeding EXAM Physical Exam Narrative Exam Narrative: Vital signs reviewed. HEET: Head normocephalic atraumatic, TMs clear bilaterally. Posterior pharynx is clear, moist mucous membranes. (more content not included)... Normal [facility] Eosinophil percentageOrdered By: Abelardo Reddy on 08-21-2024 Eosinophils/100 WBC (Bld) 1.8 % 0-5 [facility] Epithelial cells.squamous LM Ql (Urine sed)Ordered By: Quentin Mckeon on 08-21-2024 Epithelial cells.squamous LM.HPF (Urine sed) [#/Area] 0 /[HPF] 5-10 [facility] Erythrocyte distribution wid th (RBC) [Ratio]Ordered By: Abelardo Reddy on 08-21-2024 Erythrocyte distribution width (RBC) [Entitic vol] 41.7 fL 35.1-43.9 [facility] Erythrocyte distribution wid th ratioOrdered By: Abelardo Reddy on 08-21-2024 Erythrocyte distribution width (RBC) [Ratio] 12.7 % 11.6-14.6 [facility] Estimation of creatinine awa aranceOrdered By: Quentin Mckeon on 08-21-2024 Estimated Creatinine Clearance Calc 37.09 ml/min Low 50-250 [facility] GFR/1.73 sq M.predicted mary kate g non-blacks MDRD (S/P/Bld) [Vol rate/Area]Ordered By: Quentin Mckeon on 08-21-2024 Estimated GFR (MDRD) Non-Af Amer 42 Low >60 [facility] Comment on above: mL/min/1.73m2 CKD-EP I Creatinine Equation (2020) Glucose Ql (U)Ordered By: Arleen Mckeon on 08-21-2024 Urine Glucose (UA) Normal mg/dl Normal [facility] Hematocrit Auto (Bld) [Volum e fraction]Ordered By: Abelardo Reddy on 08-21-2024 Hematocrit (Bld) [Volume fraction] 37.0 % 37-47 [facility] Hemoglobin measurementOrdere d By: Abelardo Reddy on 08-21-2024 Hemoglobin (Bld) [Mass/Vol] 12.3 g/dL 12.0-15.0 [facility] Immature granulocytes/100 WB C Auto (Bld)Ordered By: Abelardo Reddy on 08-21-2024 Immature granulocytes/100 WBC (Bld) 0.300 % 0.0-0.9 [facility] Comment on above: IG% - Immature Granu locytes (promyelocytes, myelocytes and metamyelocytes) > 1% indicates that a LEFT SHIFT is Present. Ketones Test strip Ql (U)Ord ered By: Quentin Mckeon on 08-21-2024 Ketones Ql (U) Negative Negative [facility] - Chemistry and C hemistry - challengeOrdered By: Quentin Mckeon on 08-21-2024 AST [Catalytic activity/Vol] 27 U/L <32 [facility] Lactic Acidon 08-21-2024 Lactate [Moles/Vol] 1.1 mmol/L Normal 0.0-2.0 [facility] Comment on above: Order Comment: Y Performed By: #### L 501.9514, L501.9954, L501.5200 #### [facility] [address] [place], [address] Lactic acid measurementOrder ed By: Quentin Mckeon on 08-21-2024 Lactate [Moles/Vol] 1.1 mmol/L 0.0-2.0 [facility] Lymphocytes Auto (Unsp spec) [#/Vol]Ordered By: Abelardo Reddy on 08-21-2024 Lymphocytes (Bld) [#/Vol] 2.26 10*3/uL 0.83-4.51 [facility] Lymphocytes/100 WBC Auto (Un sp spec)Ordered By: Abelardo Reddy on 08-21-2024 Lymphocytes/100 WBC (Bld) 34.0 % 19-41 [facility] MCV (mean corpuscular volume ) determinationOrdered By: Abelardo Reddy on 08-21-2024 MCV (RBC) [Entitic vol] 90.5 fL 81-99 [facility] Mean corpuscular hemoglobin (MCH) determinationOrdered By: Abelardo Reddy on 08-21-2024 MCH (RBC) [Entitic mass] 30.1 pg 27.0-32.0 [facility] Mean corpuscular hemoglobin concentration (MCHC) determinationOrdered By: Abelardo Reddy on 08-21-2024 MCHC (RBC) [Mass/Vol] 33.2 g/dL 32-36 [facility] Mean platelet volume determi nationOrdered By: Abelardo Reddy on 08-21-2024 Platelet mean volume (Bld) [Entitic vol] 8.7 fL 6.2-12.0 [facility] Microscopic analysis of urin e for red blood cells (RBC)Ordered By: Quentin Mckeon on 08-21-2024 Urine RBC 0 SEEN /hpf 0-5 [facility] Monocyte percentageOrdered B y: Abelardo Reddy on 08-21-2024 Monocytes/100 WBC (Bld) 10.5 % High 0-10 [facility] Mucus LM Ql (Urine sed)Order ed By: Quentin Mckeon on 08-21-2024 Mucus Ql (Urine sed) 0 SEEN /hpf [facility] Neutrophil percentageOrdered By: Abelardo Reddy on 08-21-2024 Neutrophils/100 WBC (Bld) 52.6 % 47-70 [facility] Nitrite Test strip Ql (U)Ord ered By: Quentin Mckeon on 08-21-2024 Nitrite Ql (U) Negative Negative [facility] Nucleated red blood cell per centageOrdered By: Abelardo Reddy on 08-21-2024 Nucleated RBC/100 WBC (Bld) [Ratio] 0 % 0-5 [facility] Platelet countOrdered By: Ernst Reddy on 08-21-2024 Platelets (Bld) [#/Vol] 306 10*3/uL 150-450 [facility] Potassium (Unsp spec) [Mass/ Vol]Ordered By: Quentin Mckeon on 08-21-2024 Potassium [Moles/Vol] 4.2 mmol/L 3.3-5.1 [facility] Protein Test strip Ql (U)Ord ered By: Quentin Mckeon on 08-21-2024 Protein Ql (U) 30 mg/dl High Negative [facility] RBC Auto (Bld) [#/Vol]Ordere d By: Abelardo Reddy on 08-21-2024 RBC (Bld) [#/Vol] 4.09 10*6/uL Low 4.2-5.4 [facility] Serum creatinine measurement (mass/volume)Ordered By: Quentin Mckeon on 08-21-2024 Creatinine [Mass/Vol] 1.27 mg/dL High 0.70-1.20 [facility] Serum globulin measurementOr dered By: Quentin Mckeon on 08-21-2024 Globulin (S) [Mass/Vol] 3.2 g/dL 2.2-4.2 [facility] Serum glucose measurement (m ass/volume)Ordered By: Quentin Mckeon on 08-21-2024 Glucose [Mass/Vol] 104 mg/dL High 70-99 [facility] Serum or plasma alanine andres otransferase (ALT) measurementOrdered By: Quentin Mckeon on 08-21-2024 ALT [Catalytic activity/Vol] 22 U/L <35 [facility] Serum or plasma albumin stephanie urement (mass/volume)Ordered By: Quentin Mckeon on 08-21-2024 Albumin [Mass/Vol] 4.9 g/dL High 3.4-4.8 [facility] Serum or plasma albumin/glob ulin mass ratioOrdered By: Quentin Mckeon on 08-21-2024 Albumin/Globulin [Mass ratio] 1.5 {ratio} 0.9-2.4 [facility] Serum or plasma alkaline yaya sphatase measurementOrdered By: Quentin Mckeon on 08-21-2024 ALP [Catalytic activity/Vol] 140 U/L High 35-104 [facility] Serum or plasma calcium stephanie urement (mass/volume)Ordered By: Quentin Mckeon on 08-21-2024 Calcium [Mass/Vol] 10.4 mg/dL 7.6-11.0 [facility] Serum or plasma urea nitroge n measurement (mass/volume)Ordered By: Quentin Mckeon on 08-21-2024 Urea nitrogen [Mass/Vol] 11 mg/dL 4-19 [facility] Sodium levelOrdered By: Quentin Mckeon on 08-21-2024 Sodium [Moles/Vol] 138 mmol/L 133-145 [facility] Total proteinOrdered By: Kaitlynn Mckeon on 08-21-2024 Protein [Mass/Vol] 8.1 g/dL 5.9-8.4 [facility] Urinalysis, Completeon 08-21 BACTERIA 1+ /hpf Normal None Seen [facility] Comment on above: Order Comment: CLEAN CATCH Performed By: #### L [id number] #### [facility] [address] [place], [place], [id number] EPI,SQUAMOUS 0-5 SEEN Normal 5-10 [facility] Comment on above: Order Comment: CLEAN CATCH Performed By: #### L [id number] #### [facility] [address] [place], [address] Mucus Ql (Urine sed) 0 SEEN Normal [facility] Comment on above: Order Comment: CLEAN CATCH Performed By: #### L [id number] #### [facility] [address] [place], [address] RBC 0 SEEN Normal 0-5 [facility] Comment on above: Order Comment: CLEAN CATCH Performed By: #### L [id number] #### [facility] [address] [place], [address] WBC 0 SEEN Normal 0-5 [facility] Comment on above: Order Comment: CLEAN CATCH Performed By: #### L [id number] #### [facility] [address] [place], [place], [id number] Urine blood detectionOrdered By: Quentin Mckeon on 08-21-2024 Urine Occult Blood Negative Negative [facility] Urine clarityOrdered By: Kaitlynn Mckeon on 08-21-2024 Clarity (U) Clear Clear [facility] Urine color determinationOrd ered By: Quentin Mckeon on 08-21-2024 Color (U) Yellow Yellow [facility] Urine leukocyte esterase det ection by dipstickOrdered By: Quentin Mckeon on 08-21-2024 Leukocyte esterase Test strip Ql (U) Negative Negative [facility] Urine pHOrdered By: Quentin tong on 08-21-2024 pH (U) 6.5 [pH] 5.0 - 8.0 [facility] Urine sediment bacteria coun t by microscopy (number/high power field)Ordered By: Quentin Mckeon on 08-21-2024 Bacteria LM.HPF (Urine sed) [#/Area] 1 /[HPF] None Seen [facility] Urine specific gravity measu rementOrdered By: Quentin Mckeon on 08-21-2024 Specific gravity (U) [Rel density] 1.010 1.002-1.030 [facility] Urobilinogen Ql (U)Ordered B y: Quentin Mckeon on 08-21-2024 Urine Urobilinogen Normal mg/dl Normal [facility] White blood cell (WBC) count Ordered By: Abelardo Reddy on 08-21-2024 WBC (Bld) [#/Vol] 6.7 10*3/uL 4.4-11.0 [facility] White blood cell countOrdere d By: Quentin Mckeon on 08-21-2024 Urine WBC 0 SEEN /hpf 0-5 [facility] Bacteria Ur Culton Bacteria identified Cx Nom (U) ORGANISM ID: 1 <10,000 CFU/ml Normal urogenital grant Normal [facility] Comment on above: Performed By: #### 6 30-4 #### [facility] CLIA [id number] [address] [place] [address] OF [facility] CNOVon 08-20-2024 CNOV Office Visit (FAMPWS ) GEORGINA SEGURA ([id number]) 1945 F Date Time Provider Department 08/20/24 1:40 PM [facility] During your visit today, we recorded the following information about you: Temperature Pulse Blood pressure 99.7 degrees 80/minute 128/72 Sylvie Ariza APRN.[facility] 08/20/2024 2:23 PM Signed This is a 79 year old female who presents today with: Patient presents with: Hospital F/U: UTI Constipation HISTORY OF PRESENT ILLNESS: Georgina Segura is a 79 year old female. Patient presents with: Hospital F/U: UTI Constipation Fell a week ago, Tuesday (about 10 days ago) First fell out of bed. The same day, she turned in the kitchen an fell again. Was in hospital overnight for cystitis. Treated with cephalexin. Pain axial lumbar- hurts to move No radiation No nausea or vomiting No fever or chills. No appetite. Constipation. No stool for 5 days Daughter gave her an enema. Then a second enema. Dulcolax liquid caused only liquid stool Kayexalate didn't work PAST MEDICAL HISTORY: PAST MEDICAL HISTORY Diagnosis Date Arthritis of both hands 05/05/2016 Asthma 03/11/2010 Cervical disc disease 06/06/2013 Dementia without behavioral disturbance (HCC) 10/11/2022 Depression, recurrent 10/11/2022 Diarrhea Diffuse cystic mastopathy 11/03/2005 Elevated CK 04/26/2012 Esophageal reflux 11/03/2005 Fracture of skull (HCC) 02/16/2023 Hyperlipidemia 04/26/2012 Hypothyroidism, acquired 08/04/2022 Impingement syndrome of right shoulder 10/11/2016 Irritable bowel syndrome with diarrhea 05/31/2018 Mild intermittent asthma, uncomplicated 11/23/2022 Neurogenic bladder, NOS Odontoid fracture (HCC) 08/20/2023 Other and unspecified hyperlipidemia Other forms of migraine Overactive bladder 02/12/2009 Primary localized osteoarthrosis, lower leg Rotator cuff syndrome 02/12/2009 Situational depression 05/31/2018 Statin intolerance 07/03/2018 Supraspinatus tendonitis 12/06/2012 Tear of biceps tendon 05/18/2017 Unspecified sleep apnea Urinary incontinence 03/11/2010 PAST SURGICAL HISTORY Procedure Laterality Date ADENOIDECTOMY PRIMARY Adenoidectomy APPENDECTOMY COLONOSCOPY W/BIOPSY SINGLE/MULTIPLE 06/21/11 DILATION AND CURETTAGE DXAND/THER NONOBSTETRIC Dilation AND curettage LAPAROSCOPY SURG CHOLECYSTECTOMY 07-15-06 Cholecystectomy, lap PAST SURGICAL HISTORY OF N/A 2016 urinary implant device TONSILLECTOMY PRIMARY/SECONDARY Tonsillectomy VAGINAL HYSTERECTOMY UTERUS 250 GM/< Hysterectomy, vaginal ALLERGIES Vioxx [Rofecoxib] and Zocor [Simvastatin] MEDICATIONS Current Outpatient Medications Medication Sig solifenacin 10 mg tablet Take 1 tablet by mouth once daily. mirabegron (MYRBETRIQ) 50 mg Tb24 Take 1 tablet by mouth once daily. levothyroxine (SYNTHROID) 50 mcg tablet TAKE 1 TABLET BY MOUTH ONCE DAILY AT 6 AM FLUoxetine (PROZAC) 20 mg capsule Take 1 capsule by mouth every afternoon. famotidine (PEPCID) 40 mg tablet Take 1 tablet by mouth once daily. ezetimibe (ZETIA) 10 mg tablet Take 1 tablet by mouth once daily. carvedilol (COREG) 6.25 mg tablet Take 1 tablet by mouth two times a day with meals. pantoprazole DR (PROTONIX) 40 mg tablet Take 1 tablet by mouth once daily. ipratropium bromide (ATROVENT) 42 mcg (0.06 %) nasal spray Use 2 Sprays in the nose three times a day. albuterol HFA (PROVENTIL HFA, VENTOLIN HFA) 90 mcg/actuation inhaler Inhale 2 Puffs as instructed every 4 hours as needed. diclofenac (VOLTAREN ARTHRITIS PAIN) 1 % topical gel Apply 2 g to affected area four times daily. (Patient not taking: Reported on 07/30/2024) cyclobenzaprine (FLEXERIL) 5 mg tablet Take 1 tablet by mouth three times a day. (Patient not taking: Reported on 07/30/2024) No current facility-administered medications for this visit. FAMILY HISTORY Problem Relation Age of Onset other (dementia [Other]) Father Heart Father Tremor Father Heart Mother Heart Brother Tremor Daughter Tremor Son Social History Tobacco Use Smoking status: Never Smokeless tobacco: Never Substance Use Topics Alcohol use: No Drug use: No EXAM: BP 128/72 Pulse 80 Temp 37.6 ?C (99.7 ?F) (Right Tympanic) SpO2 93% PHYSICAL EXAM: Physical Exam Vitals reviewed. Constitutional: Appearance: Normal appearance. Cardiovascular: Rate and Rhythm: Normal rate and regular rhythm. Pulses: Normal pulses. Heart sounds: Normal heart sounds. Pulmonary: Effort: Pulmonary effort is normal. Breath sounds: Normal breath sounds. Musculoskeletal: Comments: Presents in a wheelchair because she is having back pain Walks w/ a cane Skin: General: Skin is warm and dry. Neurological: Mental Status: She is alert and oriented to person, place, and time. LABS: urine culture, Xray abd and low back ASSESSMENT/PLAN: 1. Dysuria - ICD9: 788.1, ICD10: R30.0 (primary (more content not included)... Normal [facility] No Panel Informationon 08-20 Radiology Study observation (narrative) [facility] UA DIP, URINE (POC)on 2024 BILIRUBIN UA (POCT) Negative Negative [facility] CLARITY UA (POCT) Clear [facility] COLOR UA (POCT) Yellow [facility] GLUCOSE UA (POCT) Negative Negative mg/dL [facility] Hemoglobin Ql (U) Negative Negative [facility] KETONE UA (POCT) Negative Negative mg/dL [facility] LEUKOCYTES UA (POCT) Negative Negative [facility] NITRITE UA (POCT) Negative Negative [facility] PH UA (POCT) 5.5 4.5 - 8.0 [facility] Protein Ql (U) Negative Negative mg/dL [facility] SPECIFIC GRAVITY UA (POCT) 1.01 1.005 - 1.030 [facility] UROBILINOGEN UA (POCT) 0.2 Annette l E.U./dL [facility] Location:[address], [place], [place], [id number] [place] [address] POINT OF CARE [facility] XR ABDOMEN 1V SUPINEon 08-20 XR ABDOMEN 1V SUPINE * * *Final Report* * * DATE OF EXAM: Aug 20 2024 2:57PM WOX 5289 - XR ABDOMEN 1V SUPINE / PROCEDURE REASON: Acute low back pain without sciatica, unspecified back pain laterality * * * * Physician Interpretation * * * * ABDOMINAL X-RAY HISTORY: Acute low back pain without sciatica, unspecified back pain laterality TECHNIQUE: AP supine view. COMPARISON: None available RESULT: Lines/tubes/devices: Right-sided sacral stimulator in place with the lead terminating in the left pelvis. Abdomen: Pelvic phleboliths. Gas nondistended colon. Mildly dilated loop of small bowel in the left abdomen measuring 3.5 cm. Moderate colonic stool burden in the ascending colon. Bones: Degenerative changes of the spine with levoconvex curvature. IMPRESSION: Mildly dilated loop of small bowel in the left abdomen measuring 3.5 cm, nonspecific. 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[facility] Transcribe Date/Time: Aug 20 2024 3:49P Dictated by : TONI OBREGON MD This examination was interpreted and the report reviewed and electronically signed by: TONI OBREGON MD on Aug 20 2024 3:53PM EST [id number] Normal [facility] XR Abdomen Supine and Uprigh ton 08-20-2024 IMPRESSION: Mildly dilated loop of small bowel in the left abdomen measuring 3.5 cm, nonspecific. 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[facility] Transcribe Date/Time: Aug 20 2024 3:49P Dictated by : TONI OBREGON MD This examination was interpreted and the report reviewed and electronically signed by: TONI OBREGON MD on Aug 20 2024 3:53PM EST DIVISION OF RADIOLOGY * * *Final Report* * * DATE OF EXAM: Aug 20 2024 2:57PM WOX 5289 - XR ABDOMEN 1V SUPINE / PROCEDURE REASON: Acute low back pain without sciatica, unspecified back pain laterality * * * * Physician Interpretation * * * * ABDOMINAL X-RAY HISTORY: Acute low back pain without sciatica, unspecified back pain laterality TECHNIQUE: AP supine view. COMPARISON: None available RESULT: Lines/tubes/devices: Right-sided sacral stimulator in place with the lead terminating in the left pelvis. Abdomen: Pelvic phleboliths. Gas nondistended colon. Mildly dilated loop of small bowel in the left abdomen measuring 3.5 cm. Moderate colonic stool burden in the ascending colon. Bones: Degenerative changes of the spine with levoconvex curvature. DIVISION OF RADIOLOGY Provider, [facility] - 08/20/2024 * * *Final Report* * * DATE OF EXAM: Aug 20 2024 2:57PM WOX 5289 - XR ABDOMEN 1V SUPINE / PROCEDURE REASON: Acute low back pain without sciatica, unspecified back pain laterality * * * * Physician Interpretation * * * * ABDOMINAL X-RAY HISTORY: Acute low back pain without sciatica, unspecified back pain laterality TECHNIQUE: AP supine view. COMPARISON: None available RESULT: Lines/tubes/devices: Right-sided sacral stimulator in place with the lead terminating in the left pelvis. Abdomen: Pelvic phleboliths. Gas nondistended colon. Mildly dilated loop of small bowel in the left abdomen measuring 3.5 cm. Moderate colonic stool burden in the ascending colon. Bones: Degenerative changes of the spine with levoconvex curvature. IMPRESSION IMPRESSION: Mildly dilated loop of small bowel in the left abdomen measuring 3.5 cm, nonspecific. 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[facility] Transcribe Date/Time: Aug 20 2024 3:49P Dictated by : TONI OBREGON MD This examination was interpreted and the report reviewed and electronically signed by: TONI OBREGON MD on Aug 20 2024 3:53PM EST [facility] XR Abdomen Supine and Uprigh tOrdered By: [facility] Provider on 08-20-2024 [facility] XR LUMBAR 3V AP/LAT/L5-S1on 08-20-2024 XR LUMBAR 3V AP/LAT/L5-S1 * * *Final Report* * * DATE OF EXAM: Aug 20 2024 2:57PM WOX 5228 - XR LUMBAR 3V AP/LAT/L5-S1 / PROCEDURE REASON: Acute low back pain without sciatica, unspecified back pain laterality * * * * Physician Interpretation * * * * LUMBAR SPINE X-RAY SERIES HISTORY: Acute low back pain without sciatica, unspecified back pain laterality TECHNIQUE: AP, Lateral, coned-down lateral COMPARISON: None available. RESULT: Alignment: Grade 1 anterolisthesis of L3 on L4 and L4 on L5.. Levoconvex curvature. Bones: No acute or chronic fracture of the lumbar spine. Mild T12 vertebral body compression fracture, age indeterminate. Intervertebral discs: Mild to moderate degenerative disc disease.. Sacral stimulator in the pelvis. IMPRESSION: 1. No fracture of the lumbar spine. 2. Mild T12 vertebral body compression fracture, age indeterminate. 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[facility] Transcribe Date/Time: Aug 20 2024 3:54P Dictated by : TONI OBREGON MD This examination was interpreted and the report reviewed and electronically signed by: TONI OBREGON MD on Aug 20 2024 3:55PM EST [id number] Normal [facility] XR Lumbar spine 3 Viewson IMPRESSION: 1. No fracture of the lumbar spine. 2. Mild T12 vertebral body compression fracture, age indeterminate. 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[facility] Transcribe Date/Time: Aug 20 2024 3:54P Dictated by : TONI OBREGON MD This examination was interpreted and the report reviewed and electronically signed by: TONI OBREGON MD on Aug 20 2024 3:55PM EST DIVISION OF RADIOLOGY * * *Final Report* * * DATE OF EXAM: Aug 20 2024 2:57PM WOX 5228 - XR LUMBAR 3V AP/LAT/L5-S1 / PROCEDURE REASON: Acute low back pain without sciatica, unspecified back pain laterality * * * * Physician Interpretation * * * * LUMBAR SPINE X-RAY SERIES HISTORY: Acute low back pain without sciatica, unspecified back pain laterality TECHNIQUE: AP, Lateral, coned-down lateral COMPARISON: None available. RESULT: Alignment: Grade 1 anterolisthesis of L3 on L4 and L4 on L5.. Levoconvex curvature. Bones: No acute or chronic fracture of the lumbar spine. Mild T12 vertebral body compression fracture, age indeterminate. Intervertebral discs: Mild to moderate degenerative disc disease.. Sacral stimulator in the pelvis. DIVISION OF RADIOLOGY Provider, [facility] Saurav [facility] - 08/20/2024 * * *Final Report* * * DATE OF EXAM: Aug 20 2024 2:57PM WOX 5228 - XR LUMBAR 3V AP/LAT/L5-S1 / PROCEDURE REASON: Acute low back pain without sciatica, unspecified back pain laterality * * * * Physician Interpretation * * * * LUMBAR SPINE X-RAY SERIES HISTORY: Acute low back pain without sciatica, unspecified back pain laterality TECHNIQUE: AP, Lateral, coned-down lateral COMPARISON: None available. RESULT: Alignment: Grade 1 anterolisthesis of L3 on L4 and L4 on L5.. Levoconvex curvature. Bones: No acute or chronic fracture of the lumbar spine. Mild T12 vertebral body compression fracture, age indeterminate. Intervertebral discs: Mild to moderate degenerative disc disease.. Sacral stimulator in the pelvis. IMPRESSION IMPRESSION: 1. No fracture of the lumbar spine. 2. Mild T12 vertebral body compression fracture, age indeterminate. 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 Transcribe Date/Time: Aug 20 2024 3:54P Dictated by : TONI OBREGON MD This examination was interpreted and the report reviewed and electronically signed by: TONI OBREGON MD on Aug 20 2024 3:55PM [facility] Urine Cultureon 08-16-2024 [facility] Escherichia coli [place] Count 50,000-80,000 Escherichia coli: REACTION Ampicillin Islt STEFANY 4 Ampicillin+Sulbac Islt STEFANY <=2 S Cefepime Islt STEFANY <=0.12 S cefTRIAXone Islt STEFANY <=0.25 S Ciprofloxacin Islt STEFANY <=0.06 S B-Lactamase Extended Susc Islt NEG Gentamicin Islt STEFANY <=1 S levoFLOXacin Islt STEFANY <=0.12 S Meropenem Islt STEFANY <=0.25 S Nitrofurantoin Islt STEFANY <=16 S Pip+Tazo Islt STEFANY <=4 S TMP SMX Islt STEFANY <=20 S Normal [facility] Comment on above: Performed By: #### L [id number], L501.9985, L501.5200 #### [facility] [address] [place], [address] Absolute neutrophil countOrd ered By: Charlee Hernandez on 08-15-2024 Neutrophils (Bld) [#/Vol] 3.0 10*3/uL 2.0-7.7 [facility] Anion gap in Serum or Plasma Ordered By: Charlee Hernandez on 08-15-2024 Anion gap [Moles/Vol] 14 mmol/L 09-20 [facility] BUN/creatinine ratioOrdered By: Charlee Hernandez on 08-15-2024 Urea nitrogen/Creatinine [Mass ratio] 11.6 mg/mg 02-25 [facility] Basic Metabolic Profile (BMP )on 08-15-2024 BUN/CRE 11.6 RATIO Normal 02-25 [facility] Comment on above: Performed By: #### L 501.2300, L100.0100, L500.2500, L501.5200 #### [facility] [address] [place], [address] Calcium [Mass/Vol] 8.7 mg/dL Normal 7.6-11.0 [facility] Comment on above: Performed By: #### L 501.2300, L100.0100, L500.2500, L501.5200 #### [facility] [address] [place], [address] Chloride [Moles/Vol] 104 mmol/L Normal 98-108 [facility] Comment on above: Performed By: #### L 501.2300, L100.0100, L500.2500, L501.5200 #### [facility] [address] [place], [address] CO2 [Moles/Vol] 18.5 mmol/L Low 21.0-32.0 [facility] Comment on above: Performed By: #### L 501.2300, L100.0100, L500.2500, L501.5200 #### [facility] [address] [place], [address] Creatinine [Mass/Vol] 1.23 mg/dL High 0.70-1.20 [facility] Comment on above: Performed By: #### L [id number], L100.0100, L500.2500, L501.5200 #### [facility] [address] [place], [address] ECRCL 38.58 ml/min Low 50-250 [facility] Comment on above: Performed By: #### L 501.2300, L100.0100, L500.2500, L501.5200 #### [facility] [address] [place], [address] GAP 14 Normal 5-15 [facility] Comment on above: Performed By: #### L [id number], L100.0100, L500.2500, L501.5200 #### [facility] [address] [place], [address] GFR/1.73 sq M.predicted among non-blacks MDRD (S/P/Bld) [Vol rate/Area] 44 mL/min/{1.73_m2} Low >60 [facility] Comment on above: Result Comment: mL/m in/1.73m2 CKD-EPI Creatinine Equation (2020) Performed By: #### L 501.2300, L100.0100, L500.2500, L501.5200 #### [facility] [address] [place], [address] Glucose [Mass/Vol] 88 mg/dL Normal 70-99 [facility] Comment on above: Performed By: #### L 501.2300, L100.0100, L500.2500, L501.5200 #### [facility] [address] [place], [address] Potassium [Moles/Vol] 4.3 mmol/L Normal 3.3-5.1 [facility] Comment on above: Performed By: #### L 501.2300, L100.0100, L500.2500, L501.5200 #### [facility] [address] [place], [address] Sodium [Moles/Vol] 136 mmol/L Normal 133-145 [facility] Comment on above: Performed By: #### L 501.2300, L100.0100, L500.2500, L501.5200 #### [facility] [address] [place], [place], [address] Urea nitrogen [Mass/Vol] 14 mg/dL Normal 4-19 [facility] Comment on above: Performed By: #### L 501.2300, L100.0100, L500.2500, L501.5200 #### [facility] [address] [place], [address] Basophil percentageOrdered B y: Charlee Hernandez on 08-15-2024 Basophils/100 WBC (Bld) 0.9 % 0-1 [facility] CBC W/Diff, Automatedon 04-0 Absolute Lymph 1.92 X10 3/uL Normal 0.83-4.51 [facility] Comment on above: Performed By: #### L 501.2300, L100.0100, L500.2500, L501.5200 #### [facility] [address] [place], [address] Absolute Neut 3.0 X10 3/uL Normal 2.0-7.7 [facility] Comment on above: Performed By: #### L 501.2300, L100.0100, L500.2500, L501.5200 #### [facility] [address] [place], [address] Basophils/100 WBC (Bld) 0.9 % Normal 0-1 [facility] Comment on above: Performed By: #### L 501.2300, L100.0100, L500.2500, L501.5200 #### [facility] [address] [place], [address] Eosinophils/100 WBC (Bld) 4.5 % Normal 0-5 [facility] Comment on above: Performed By: #### L 501.2300, L100.0100, L500.2500, L501.5200 #### [facility] [address] [place], [address] Erythrocyte distribution width (RBC) [Ratio] 13.0 % Normal 11.6-14.6 [facility] Comment on above: Performed By: #### L 501.2300, L100.0100, L500.2500, L501.5200 #### [facility] [address] [place], [address] Hematocrit (Bld) [Volume fraction] 35.5 % Low 37-47 [facility] Comment on above: Performed By: #### L 501.2300, L100.0100, L500.2500, L501.5200 #### [facility] [address] [place], [address] Hemoglobin (Bld) [Mass/Vol] 11.4 g/dL Low 12.0-15.0 [facility] Comment on above: Performed By: #### L 501.2300, L100.0100, L500.2500, L501.5200 #### [facility] [address] [place], [address] IG% 0.700 Normal 0.0-0.9 [facility] Comment on above: Result Comment: IG% - Immature Granulocytes (promyelocytes, myelocytes and metamyelocytes) > 1% indicates that a LEFT SHIFT is Present. Performed By: #### L 501.2300, L100.0100, L500.2500, L501.5200 #### [facility] [address] [place], [address] Lymphocytes/100 WBC (Bld) 33.0 % Normal 19-41 [facility] Comment on above: Performed By: #### L 501.2300, L100.0100, L500.2500, L501.5200 #### [facility] [address] [place], [address] MCH (RBC) [Entitic mass] 30.2 pg Normal 27.0-32.0 [facility] Comment on above: Performed By: #### L 501.2300, L100.0100, L500.2500, L501.5200 #### [facility] [address] [place], [address] MCHC (RBC) [Mass/Vol] 32.1 g/dL Normal 32-36 [facility] Comment on above: Performed By: #### L 501.2300, L100.0100, L500.2500, L501.5200 #### [facility] [address] [place], [address] MCV (RBC) [Entitic vol] 93.9 fL Normal 81-99 [facility] Comment on above: Performed By: #### L 501.2300, L100.0100, L500.2500, L501.5200 #### [facility] [address] [place], [address] Monocytes/100 WBC (Bld) 10.0 % Normal 0-10 [facility] Comment on above: Performed By: #### L 501.2300, L100.0100, L500.2500, L501.5200 #### [facility] [address] [place], [address] Neutrophils/100 WBC (Bld) 50.9 % Normal 47-70 [facility] Comment on above: Performed By: #### L 501.2300, L100.0100, L500.2500, L501.5200 #### [facility] [address] [place], [address] Nucleated RBC (Bld) [#/Vol] 0 10*3/uL Normal 0-5 [facility] Comment on above: Performed By: #### L 501.2300, L100.0100, L500.2500, L501.5200 #### [facility] [address] [place], [address] Platelet mean volume (Bld) [Entitic vol] 9.6 fL Normal 6.2-12.0 [facility] Comment on above: Performed By: #### L 501.2300, L100.0100, L500.2500, L501.5200 #### [facility] [address] [place], [address] Platelets (Bld) [#/Vol] 263 10*3/uL Normal 150-450 [facility] Comment on above: Performed By: #### L 501.2300, L100.0100, L500.2500, L501.5200 #### [facility] [address] [place], [address] RBC (Bld) [#/Vol] 3.78 10*6/uL Low 4.2-5.4 [facility] Comment on above: Performed By: #### L 501.2300, L100.0100, L500.2500, L501.5200 #### [facility] [address] [place], [address] RDW SD 44.2 fl High 35.1-43.9 [facility] Comment on above: Performed By: #### L 501.2300, L100.0100, L500.2500, L501.5200 #### [facility] [address] [place], [address] WBC (Bld) [#/Vol] 5.8 10*3/uL Normal 4.4-11.0 [facility] Comment on above: Performed By: #### L 501.2300, L100.0100, L500.2500, L501.5200 #### [facility] [address] [place], [address] Carbon dioxide, total [Moles /volume] in Central venous bloodOrdered By: Charlee Hernandez on 08-15-2024 CO2 [Moles/Vol] 18.5 mmol/L Low 21.0-32.0 [facility] Chloride assayOrdered By: Viri Hernandez on 08-15-2024 Chloride [Moles/Vol] 104 mmol/L 98-108 [facility] Eosinophil percentageOrdered By: Charlee Hernandez on 08-15-2024 Eosinophils/100 WBC (Bld) 4.5 % 0-5 [facility] Erythrocyte distribution wid th (RBC) [Ratio]Ordered By: Charlee Hernandez on 08-15-2024 Erythrocyte distribution width (RBC) [Entitic vol] 44.2 fL High 35.1-43.9 [facility] Erythrocyte distribution wid th ratioOrdered By: Charlee Hernandez on 08-15-2024 Erythrocyte distribution width (RBC) [Ratio] 13.0 % 11.6-14.6 [facility] Estimation of creatinine awa aranceOrdered By: Charlee Hernandez on 08-15-2024 Estimated Creatinine Clearance Calc 38.58 ml/min Low 50-250 [facility] GFR/1.73 sq M.predicted mary kate g non-blacks MDRD (S/P/Bld) [Vol rate/Area]Ordered By: Charlee Hernandez on 08-15-2024 Estimated GFR (MDRD) Non-Af Amer 44 Low >60 [facility] Comment on above: mL/min/1.73m2 CKD-EP I Creatinine Equation (2020) Hematocrit Auto (Bld) [Volum e fraction]Ordered By: Charlee Hernandez on 04-09-2025 Hematocrit (Bld) [Volume fraction] 35.5 % Low 37-47 [facility] Hemoglobin measurementOrdere d By: Charlee Hernandez on 08-15-2024 Hemoglobin (Bld) [Mass/Vol] 11.4 g/dL Low 12.0-15.0 [facility] Immature granulocytes/100 WB C Auto (Bld)Ordered By: Charlee Hernandez on 08-15-2024 Immature granulocytes/100 WBC (Bld) 0.700 % 0.0-0.9 [facility] Comment on above: IG% - Immature Granu locytes (promyelocytes, myelocytes and metamyelocytes) > 1% indicates that a LEFT SHIFT is Present. Lymphocytes Auto (Unsp spec) [#/Vol]Ordered By: Charlee Hernandez on 08-15-2024 Lymphocytes (Bld) [#/Vol] 1.92 10*3/uL 0.83-4.51 [facility] Lymphocytes/100 WBC Auto (Un sp spec)Ordered By: Charlee Hernandez on 08-15-2024 Lymphocytes/100 WBC (Bld) 33.0 % 19-41 [facility] MCV (mean corpuscular volume ) determinationOrdered By: Charlee Hernandez on 08-15-2024 MCV (RBC) [Entitic vol] 93.9 fL 81-99 [facility] Magnesiumon 08-15-2024 Magnesium [Mass/Vol] 2.2 mg/dL Normal 1.5-2.2 [facility] Comment on above: Performed By: #### L 501.9520, L501.9985, L501.5200 #### [facility] [address] [place] [address], [id number] Magnesium (Unsp spec) [Mass/ Vol]Ordered By: Charlee Hernandez on 08-15-2024 Magnesium [Mass/Vol] 2.2 mg/dL 1.5-2.2 [facility] Mean corpuscular hemoglobin (MCH) determinationOrdered By: Charlee Hernandez on 08-15-2024 MCH (RBC) [Entitic mass] 30.2 pg 27.0-32.0 [facility] Mean corpuscular hemoglobin concentration (MCHC) determinationOrdered By: Charlee Hernandez on 08-15-2024 MCHC (RBC) [Mass/Vol] 32.1 g/dL 32-36 [facility] Mean platelet volume determi nationOrdered By: Charlee Hernandez on 08-15-2024 Platelet mean volume (Bld) [Entitic vol] 9.6 fL 6.2-12.0 [facility] Monocyte percentageOrdered B y: Charlee Hernandez on 08-15-2024 Monocytes/100 WBC (Bld) 10.0 % 0-10 [facility] Neutrophil percentageOrdered By: Charlee Hernandez on 08-15-2024 Neutrophils/100 WBC (Bld) 50.9 % 47-70 [facility] Nucleated red blood cell per centageOrdered By: Charlee Hernandez on 08-15-2024 Nucleated RBC/100 WBC (Bld) [Ratio] 0 % 0-5 [facility] Phosphoruson 08-15-2024 Phosphate [Mass/Vol] 4.1 mg/dL Normal 2.7-4.5 [facility] Comment on above: Performed By: #### L 501.2300, L100.0100, L500.2500, L501.5200 #### [facility] [address] [facility] [place], [address] Platelet countOrdered By: Viri Hernandez on 08-15-2024 Platelets (Bld) [#/Vol] 263 10*3/uL 150-450 [facility] Potassium (Unsp spec) [Mass/ Vol]Ordered By: Charlee Hernandez on 08-15-2024 Potassium [Moles/Vol] 4.3 mmol/L 3.3-5.1 [facility] RBC Auto (Bld) [#/Vol]Ordere d By: Charlee Hernandez on 08-15-2024 RBC (Bld) [#/Vol] 3.78 10*6/uL Low 4.2-5.4 [facility] Serum creatinine measurement (mass/volume)Ordered By: Charlee Hernandez on 08-15-2024 Creatinine [Mass/Vol] 1.23 mg/dL High 0.70-1.20 [facility] Serum glucose measurement (m ass/volume)Ordered By: Charlee Hernandez on 08-15-2024 Glucose [Mass/Vol] 88 mg/dL 70-99 [facility] Serum or plasma calcium stephanie urement (mass/volume)Ordered By: Charlee Hernandez on 08-15-2024 Calcium [Mass/Vol] 8.7 mg/dL 7.6-11.0 [facility] Serum or plasma urea nitroge n measurement (mass/volume)Ordered By: Charlee Hernandez on 08-15-2024 Urea nitrogen [Mass/Vol] 14 mg/dL 4-19 [facility] Serum phosphorus measurement Ordered By: Charlee Hernandez on 08-15-2024 Phosphorus Level 4.1 mg/dL 2.7-4.5 [facility] Sodium levelOrdered By: Marilyn Hernandez on 08-15-2024 Sodium [Moles/Vol] 136 mmol/L 133-145 [facility] White blood cell (WBC) count Ordered By: Charlee Hernandez on 08-15-2024 WBC (Bld) [#/Vol] 5.8 10*3/uL 4.4-11.0 [facility] Bilirubin, totalOrdered By: Jose Yepez on 08-14-2024 Bilirubin [Mass/Vol] 0.21 mg/dL 0.00-1.30 [facility] CBC W/Diff, Automatedon 04- Absolute Lymph 1.83 X10 3/uL Normal 0.83-4.51 [facility] Comment on above: Performed By: #### L 501.9520, L501.9985, L501.5200 #### [facility] [address] [place], [address] Absolute Neut 4.0 X10 3/uL Normal 2.0-7.7 [facility] Comment on above: Performed By: #### L 501.9520, L501.9985, L501.5200 #### [facility] [address] [place], [address] Basophils/100 WBC (Bld) 0.6 % Normal 0-1 [facility] Comment on above: Performed By: #### L 501.9520, L501.9985, L501.5200 #### [facility] [address] [place], [address] Eosinophils/100 WBC (Bld) 2.8 % Normal 0-5 [facility] Comment on above: Performed By: #### L 501.9520, L501.9985, L501.5200 #### [facility] [address] [place], [address] Erythrocyte distribution width (RBC) [Ratio] 12.8 % Normal 11.6-14.6 [facility] Comment on above: Performed By: #### L 501.9520, L501.9985, L501.5200 #### [facility] [address] [place], [address] Hematocrit (Bld) [Volume fraction] 34.7 % Low 37-47 [facility] Comment on above: Performed By: #### L 501.9520, L501.9985, L501.5200 #### [facility] [address] [place], [address] Hemoglobin (Bld) [Mass/Vol] 11.2 g/dL Low 12.0-15.0 [facility] Comment on above: Performed By: #### L 501.9520, L501.9985, L501.5200 #### [facility] [address] [place], [address] IG% 0.400 Normal 0.0-0.9 [facility] Comment on above: Result Comment: IG% - Immature Granulocytes (promyelocytes, myelocytes and metamyelocytes) > 1% indicates that a LEFT SHIFT is Present. Performed By: #### L 501.9520, L501.9985, L501.5200 #### [facility] [address] [place], [address] Lymphocytes/100 WBC (Bld) 26.8 % Normal 19-41 [facility] Comment on above: Performed By: #### L 501.9520, L501.9985, L501.5200 #### [facility] [address] [place], [address] MCH (RBC) [Entitic mass] 30.2 pg Normal 27.0-32.0 [facility] Comment on above: Performed By: #### L 501.9520, L501.9985, L501.5200 #### [facility] [address] [place], [address] MCHC (RBC) [Mass/Vol] 32.3 g/dL Normal 32-36 [facility] Comment on above: Performed By: #### L 501.9520, L501.9985, L501.5200 #### [facility] [address] [place], [address] MCV (RBC) [Entitic vol] 93.5 fL Normal 81-99 [facility] Comment on above: Performed By: #### L 501.9520, L501.9985, L501.5200 #### [facility] [address] [place], [address] Monocytes/100 WBC (Bld) 11.6 % High 0-10 [facility] Comment on above: Performed By: #### L 501.9520, L501.9985, L501.5200 #### [facility] [address] [place], [address] Neutrophils/100 WBC (Bld) 57.8 % Normal 47-70 [facility] Comment on above: Performed By: #### L 501.9520, L501.9985, L501.5200 #### [facility] [address] [place], [address] Nucleated RBC (Bld) [#/Vol] 0 10*3/uL Normal 0-5 [facility] Comment on above: Performed By: #### L 501.9520, L501.9985, L501.5200 #### [facility] [address] [place], [address] Platelet mean volume (Bld) [Entitic vol] 9.4 fL Normal 6.2-12.0 [facility] Comment on above: Performed By: #### L 501.9520, L501.9985, L501.5200 #### [facility] [address] [place], [address] Platelets (Bld) [#/Vol] 249 10*3/uL Normal 150-450 [facility] Comment on above: Performed By: #### L 501.9520, L501.9985, L501.5200 #### [facility] [address] [place], [address] RBC (Bld) [#/Vol] 3.71 10*6/uL Low 4.2-5.4 [facility] Comment on above: Performed By: #### L 501.9520, L501.9985, L501.5200 #### [facility] [address] [place], [address] RDW SD 43.8 fl Normal 35.1-43.9 [facility] Comment on above: Performed By: #### L 501.9520, L501.9985, L501.5200 #### [facility] [address] [place], [address] WBC (Bld) [#/Vol] 6.8 10*3/uL Normal 4.4-11.0 [facility] Comment on above: Performed By: #### L 501.9520, L501.9985, L501.5200 #### [facility] [address] [place], [address] [facility] Albumin [Mass/Vol] 3.5 g/dL Normal 3.4-4.8 [facility] Comment on above: Performed By: #### L 501.9520, L501.9985, L501.5200 #### [facility] [address] [place], [address] Albumin/Globulin [Mass ratio] 1.6 {ratio} Normal 0.9-2.4 [facility] Comment on above: Performed By: #### L 501.9520, L501.9985, L501.5200 #### [facility] [address] [place], [address] ALK PHOS 88 U/L Normal 35-104 [facility] Comment on above: Performed By: #### L 501.9520, L501.9985, L501.5200 #### [facility] [address] [place], [address] ALT [Catalytic activity/Vol] 9 U/L Normal <=34 [facility] Comment on above: Performed By: #### L 501.9520, L501.9985, L501.5200 #### [facility] [address] [place], [address] AST [Catalytic activity/Vol] 20 U/L Normal <=31 [facility] Comment on above: Performed By: #### L 501.9520, L501.9985, L501.5200 #### [facility] [address] [place], [address] Bilirubin [Mass/Vol] 0.21 mg/dL Normal 0.00-1.30 [facility] Comment on above: Performed By: #### L 501.9520, L501.9985, L501.5200 #### [facility] [address] [place], [address] BUN/CRE 15.4 RATIO Normal 10-20 [facility] Comment on above: Performed By: #### L 501.9520, L501.9985, L501.5200 #### [facility] [address] [place], [address] Calcium [Mass/Vol] 8.8 mg/dL Normal 7.6-11.0 [facility] Comment on above: Performed By: #### L 501.9520, L501.9985, L501.5200 #### [facility] [address] [place], [address] Chloride [Moles/Vol] 105 mmol/L Normal 98-108 [facility] Comment on above: Performed By: #### L 501.9520, L501.9985, L501.5200 #### [facility] [address] [place], [address] CO2 [Moles/Vol] 21.2 mmol/L Normal 21.0-32.0 [facility] Comment on above: Performed By: #### L 501.9520, L501.9985, L501.5200 #### [facility] [address] [place], [address] Creatinine [Mass/Vol] 1.19 mg/dL Normal 0.70-1.20 [facility] Comment on above: Performed By: #### L 501.9520, L501.9985, L501.5200 #### [facility] [address] [place], [address] ECRCL 39.66 ml/min Low 50-250 [facility] Comment on above: Performed By: #### L 501.9520, L501.9985, L501.5200 #### [facility] [address] [place], [address] GAP 11 Normal 5-15 [facility] Comment on above: Performed By: #### L 501.9520, L501.9985, L501.5200 #### [facility] [address] [place], [address] GFR/1.73 sq M.predicted among non-blacks MDRD (S/P/Bld) [Vol rate/Area] 46 mL/min/{1.73_m2} Low >60 [facility] Comment on above: Result Comment: mL/m in/1.73m2 CKD-EPI Creatinine Equation (2020) Performed By: #### L 501.9520, L501.9985, L501.5200 #### [facility] [address] [place], [address] Globulin (S) [Mass/Vol] 2.2 g/dL Normal 2.2-4.2 [facility] Comment on above: Performed By: #### L 501.9520, L501.9985, L501.5200 #### [facility] [address] [place], [address] Glucose [Mass/Vol] 90 mg/dL Normal 70-99 [facility] Comment on above: Performed By: #### L 501.9520, L501.9985, L501.5200 #### [facility] [address] [place], [address] Potassium [Moles/Vol] 4.1 mmol/L Normal 3.3-5.1 [facility] Comment on above: Performed By: #### L 501.9520, L501.9985, L501.5200 #### [facility] [address] [place], [address] Sodium [Moles/Vol] 137 mmol/L Normal 133-145 [facility] Comment on above: Performed By: #### L 501.9520, L501.9985, L501.5200 #### [facility] [address] [place], [address] T PROT 5.7 g/dL Low 5.9-8.4 [facility] Comment on above: Performed By: #### L 501.9520, L501.9985, L501.5200 #### [facility] [address] [place], [address] Urea nitrogen [Mass/Vol] 18 mg/dL Normal 4-19 [facility] Comment on above: Performed By: #### L 501.9520, L501.9985, L501.5200 #### [facility] [address] [place], [address] Electrocardiogram reportOrde red By: Wallace Lacy on 08-14-2024 EKG study [facility] Cardiovascular Services [address] [place] [address] 12 Lead EKG 08/13/24 2139 MR#: [id number] Acct: [id number] Name: GEORGINA SEGURA Rep #:[id number] : 1945 79 From: Wallace Lacy MD Attending Dr: Dr. Charlee Hernandez DO S tatus: ADM IN Ordering Dr: Haider Hinojosa DO Date: 0 08/13/24 Location: [facility] Sex: F C Admitted: 08/14/24 Test Reason : BACK Blood Pressure : */* mmHG Vent. Rate : 84 BPM Atrial Rate : 84 BPM P-R Int : 144 ms QRS Dur : 88 ms QT Int : 404 ms P-R-T Axes : 14 7 81 degrees QTcB Int : 477 ms Normal sinus rhythm Nonspecific ST and T wave abnormality Abnormal ECG Confirmed by WALLACE LACY MD ([id number]), supervising editor trailer TIGIST DORADO ([id number]) on 08/14/2024 8:11:07 AM Referred By: MICAELA Confirmed By: WALLCAE LACY MD 08/14/24 0811 Date _ Wallace Lacy MD CC: Dr. Charlee Hernandez DO; Dr. Haider Hinojosa DO; Dr. Dinah Melgar MD ~ Signed [facility] Other Phone: H AND P Exam - Hospitaliston 08-14-2024 H&P Exam - Hospitalist [facility] Medical Records Department [address] [place] [address] H P Exam - Hospitalist 08/14/24 0050 MR#: [id number] Acct: [id number] Name: GEORGINA SEGURA Rep #: [id number] : 1945 79 From: Jose Aj DO PCP: Dr. Dinah Melgar MD Status:ADM IN Location: AL3 [id number] [facility] - General General Date of Admission: 08/14/24 Date of Service: 08/14/24 Chief Complaint: Lower Abdominal Pain and Back Pain. HPI Narrative GEORGINA SEGURA, is a 79 F with a past medical history of essential hypertension; on carvedilol, hyperlipidemia; on ezetimibe, hypothyroidism; on levothyroxine, obesity; with BMI of 35.3 this admission, NAYA; noncompliant with CPAP, chronic venous insufficiency, history of dementia, history of asthma; on as needed albuterol, history of overactive/neurogenic bladder; s/p bladder surgery on mirabegron and Solifenacin, depression; on fluoxetine, history of Hemoccult positive stool, history of appendectomy, history of cholecystectomy, GERD; on pantoprazole and famotidine nightly, history of constipation; on as needed polyethylene glycol and OA; with history of lateral meniscus repair of the Right knee and chronic back pain with patient ambulating with cane at baseline with frequent falls who presents to [facility] ER complaining of lower abdominal pain and back pain. Ms. Segura reports her symptoms began a few days ago after recent fall for which she received an x-ray that was negative for acute pathologic changes. She also noted flank pain and abdominal fullness but she denied bladder incontinence or urinary retention. There was no report of associated fever, chills, nausea, vomiting, abdominal pain, chest pain or headache. In the ER she was noted to have a UA positive for Acute Cystitis; without hematuria complicated by hypoxia with activity likely due to OHS with a CTA of the chest with and without IV contrast that revealed no evidence of pulmonary emboli with patent central airways and patchy opacity within the lingula and bilateral lower lobes likely presenting scarring or atelectasis with dependent left basilar atelectasis and questionable trace Left pleural effusion. She was then admitted to the general medical floor for ongoing care for a stay that is expected to extend beyond 2 midnights. [facility] Medical History NAYA (obstructive sleep apnea) Noncompliance with CPAP treatment Venous insufficiency (chronic) (peripheral) Dementia Dehydration Neurogenic bladder Frequent falls Glucose intolerance (impaired glucose tolerance) Loss of hearing Post-menopausal Ambulates with cane Arthritis Back pain Injury of head and neck Asthma CPAP (continuous positive airway pressure) dependence History of pain when walking Wears glasses Depression Overactive bladder High cholesterol Easy bruising Non-smoker PONV (postoperative nausea and vomiting) GERD (gastroesophageal reflux disease) Hypothyroid Home Medications ???Medication ???Instructions ???Recorded ???Last Taken ???Type famotidine 40 mg tablet 40 mg PO QHS GERD 06/11/22 Unknown History mirabegron 50 mg tablet,extended 50 mg PO DAILY OAB 06/11/22 Unknow n History release 24 hr (Myrbetriq) pantoprazole 40 mg granules 40 mg PO DAILY GERD 06/11/2208/22 History delayed-release for susp in packet ezetimibe 10 mg tablet 10 mg PO DAILY cholestorol 3 08/23/23 History albuterol sulfate 90 mcg/actuation 2 inh inhalation Q4H PRN 4 Unknown History aerosol inhaler SOB,Wheezing acetaminophen 500 mg tablet 1,000 mg (2 x 500 mg) PO Q8 #180 0 09/07/23 Unknown Rx tabs carvedilol 6.25 mg tablet 6.25 mg PO BIDCM #60 tabs 09/07/23 Unknown Rx fluoxetine 20 mg capsule (Prozac) 20 mg PO DAILY #30 caps 09/07/23 Unknown Rx ipratropium bromide 42 mcg (0.06 2 spray NASAL TID #1 BOTTLE Unknown Rx %) nasal spray levothyroxine 50 mcg tablet 50 mcg PO DAILY@0600 #30 tabs 05/0 06/01 Unknown Rx solifenacin 10 mg tablet 10 mg PO DAILY 04/06/25 Unknown Hi story polyethylene glycol 3350 17 17 g PO BID PRN constipation 08/13 Unknown History gram/dose oral powder (Miralax) Allergy/AdvReac Type Severity Reaction Status Date / Time rofecoxib (From Vioxx) Allergy Unknown Verified 08/13/24 18:49 Surgical History Hx of surgical biopsy History of bladder surgery History of partial hysterectomy History of appendectomy History of cholecystectomy H/O lateral meniscus repair of right knee Social History housing: house Smoking Status: Never smoker second hand exposure: Yes substance use type: does not use ROS ROS Narrative Review of Systems (more content not included)... Normal [facility] Hemoglobin A1con 08-14-2024 HbA1c (Bld) [Mass fraction] 5.9 % Normal <=5.6 [facility] Comment on above: Performed By: #### L 501.9520, L501.9985, L501.5200 #### [facility] [address] [place], [place], [id number] Hemoglobin A1c percentageOrd ered By: Jose Yepez on 08-14-2024 HbA1c (Bld) [Mass fraction] 5.9 % >5.7 [facility] - Chemistry and C hemistry - challengeOrdered By: Jose Yepez on 08-14-2024 AST [Catalytic activity/Vol] 20 U/L <32 [facility] Magnesiumon 08-14-2024 Magnesium [Mass/Vol] 2.0 mg/dL Normal 1.5-2.2 [facility] Comment on above: Performed By: #### L 501.9520, L501.9985, L501.5200 #### [facility] [address] [facility] [place], [place], [id number] Phosphoruson 08-14-2024 Phosphate [Mass/Vol] 4.1 mg/dL Normal 2.7-4.5 [facility] Comment on above: Performed By: #### L 501.9520, L501.9985, L501.5200 #### [facility] [address] [facility] [place], [place], [id number] RESPIRATORY PANEL MOLECULARo n 08-14-2024 RP PANEL Normal Reference Range = Not Detected Resp path DNA+RNA Pnl Resp VIKRAM+probe Nucleic acid amplification test method ADENOVIRUS Not Detected INFLUENZA A Not Detected INFLUENZA A (SUBTYPE H1) Not Detected INFLUENZA A (SUBTYPE H3) Not Detected INFLUENZA B Not Detected HUMAN METAPHNEUMO Not Detected PARAINFLUENZA 1 Not Detected PARAINFLUENZA 2 Not Detected PARAINFLUENZA 3 Not Detected PARAINFLUENZA 4 Not Detected RHINOVIRUS Not Detected RSV A Not Detected RSV B Not Detected Normal [facility] Comment on above: Performed By: #### M 100.638 #### [facility] [address] [place], [place], [id number] Respiratory pathogens DNA an d RNA panel VIKRAM+probe (Resp)Ordered By: Charlee Hernandez on 08-14-2024 Respiratory Panel (PCR) [facility] Serum globulin measurementOr dered By: Jose Yepez on 08-14-2024 Globulin (S) [Mass/Vol] 2.2 g/dL 2.2-4.2 [facility] Serum or plasma alanine andres otransferase (ALT) measurementOrdered By: Jose Yepez on 08-14-2024 ALT [Catalytic activity/Vol] 9 U/L <35 [facility] Serum or plasma albumin stephanie urement (mass/volume)Ordered By: Jose Yepez on 08-14-2024 Albumin [Mass/Vol] 3.5 g/dL 3.4-4.8 [facility] Serum or plasma albumin/glob ulin mass ratioOrdered By: Jose Yepez on 08-14-2024 Albumin/Globulin [Mass ratio] 1.6 {ratio} 0.9-2.4 [facility] Serum or plasma alkaline yaya sphatase measurementOrdered By: Jose Yepez on 08-14-2024 ALP [Catalytic activity/Vol] 88 U/L 35-104 [facility] Thyroid Stim Hormone (TSH)on 08-14-2024 TSH 5.550 uIU/mL High 0.300-4.200 [facility] Comment on above: Performed By: #### L 501.9520, L501.9985, L501.5200 #### [facility] [address] [facility] [place], [place], [address] Total proteinOrdered By: Kilo Yepez on 08-14-2024 Protein [Mass/Vol] 5.7 g/dL Low 5.9-8.4 [facility] 12 Lead EKGon 08-13-2024 12 Lead EKG [facility] Cardiovascular Services [address] [place] [address] 12 Lead EKG 08/13/24 2139 MR#: [id number] Acct: [id number] Name: GEORGINA SEGURA Rep #: [id number] : 1945 79 From: Wallace Lacy MD Attending Dr: Dr. Charlee Hernandez DO Status: ADM I N Ordering Dr: Haider Hinojosa DO Date: 08/13/24 Location: [facility] Sex: F C Admitted: 08/14/24 Test Reason : BACK Blood Pressure : */* mmHG Vent. Rate : 84 BPM Atrial Rate : 84 BPM P-R Int : 144 ms QRS Dur : 88 ms QT Int : 404 ms P-R-T Axes : 14 7 81 degrees QTcB Int : 477 ms Normal sinus rhythm Nonspecific ST and T wave abnormality Abnormal ECG Confirmed by WALLACE ALCY MD ([id number]), supervising editor trailer TIGIST DORADO ([id number]) on 08/14/2024 8:11:07 AM Referred By: MICAELA Confirmed By: WALLACE LACY MD 08/14/24 0811 Date Wallace Lacy MD CC: Dr. Charlee Hernandez DO; Dr. Haider Hinojosa DO; Dr. Dinah Melgar MD Signed Normal [facility] Abdomen/Pelvis W IV Cont ONL Yon 08-13-2024 Abdomen/Pelvis W IV Cont ONLY [facility] Imaging Services [address] [place] [address] Abdomen/Pelvis W IV Cont ONLY MR#: [id number] Acct: [id number] Name: GEORGINA SEGURA Rep #: [id number] : 1945 F 79 From: Cosme kimble MD PCP: Dr. Dinah Melgar MD Status: [facility] Study: Abdomen/Pelvis W IV Cont ONLY Date of Exam: Exam# [id number] Ordering Dr: Haider Hinojosa DO PROCEDURE: ABDOMEN/PELVIS W IV CONT ONLY 08/13/2024 REASON FOR EXAM: ABDOMINAL PAIN TECHNIQUE: Abdomen and pelvis CT with intravenous contrast. Coronal and Sagittal reconstruction series were provided. PATIENT PREPARATION: Per protocol ORAL CONTRAST TYPE: None. AMOUNT: mL CONTRAST: Omnipaque 350 VOLUME: 100 mL Not Provided Gauge IV One or more dose reduction techniques were used (e.g., Automated exposure control, adjustment of the mA and/or kV according to patient size, use of iterative reconstruction technique. COMPARISON: None FINDINGS: Lung bases: Mild bibasilar atelectasis. Mild cardiomegaly. Dense mitral annular calcifications. Liver: Homogeneous attenuation. No focal lesion. Gallbladder: No ductal dilation. Status post cholecystectomy. Spleen: Normal size. Pancreas: Normal size without evidence of mass surrounding inflammation or ductal dilation. Adrenals: Unremarkable Kidneys: Normal renal sizes. No hydronephrosis. Bladder: No abnormal wall thickening. Reproductive Organs: No pelvic mass. Bowel: Stomach is unremarkable. Small hiatal hernia. No bowel dilation or wall thickening. Appendix: The appendix is not identified. There is no inflammatory process identified in the right lower quadrant to suggest appendicitis. Lymph nodes: No suspicious lymph node enlargement. Vasculature: Moderate diffuse atherosclerotic calcifications are noted. Peritoneum / Retroperitoneum: No ascites. No pneumoperitoneum. Bones: Degenerative changes of the spine. Soft tissues: Right retro gluteal neurostimulator device, with leads terminating in the left presacral region. CT/Abdomen/Pelvis W IV Cont ONLY IMPRESSION: No acute findings in the abdomen and pelvis. Reading Location: [facility] CC: Dr. Haider Hinojosa DO; Dr. Dinah Melgar MD 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Signed Normal [facility] Anion gap in Serum or Plasma Ordered By: Haider Hinojosa on 08-13-2024 Anion gap [Moles/Vol] 12 mmol/L 5-15 [facility] BUN/creatinine ratioOrdered By: Haider Hinojosa on 08-13-2024 Urea nitrogen/Creatinine [Mass ratio] 16.7 mg/mg 10-20 [facility] Bilirubin Test strip Ql (U)O rdered By: Joelle Gilliam on 08-13-2024 Bilirubin Ql (U) Negative Negative [facility] Bilirubin, totalOrdered By: Haider Hinojosa on 08-13-2024 Bilirubin [Mass/Vol] 0.25 mg/dL 0.00-1.30 [facility] CBC-Complete Blood Cnt No Di ffon 08-13-2024 Erythrocyte distribution width (RBC) [Ratio] 12.9 % Normal 11.6-14.6 [facility] Comment on above: Performed By: #### L 501.9520, L501.9985, L501.5200 #### [facility] [address] [place], [address] Hematocrit (Bld) [Volume fraction] 39.0 % Normal 37-47 [facility] Comment on above: Performed By: #### L 501.9520, L501.9985, L501.5200 #### [facility] [address] [place], [address] Hemoglobin (Bld) [Mass/Vol] 13.0 g/dL Normal 12.0-15.0 [facility] Comment on above: Performed By: #### L 501.9520, L501.9985, L501.5200 #### [facility] [address] [place], [address] MCH (RBC) [Entitic mass] 30.6 pg Normal 27.0-32.0 [facility] Comment on above: Performed By: #### L 501.9520, L501.9985, L501.5200 #### [facility] [address] [place], [address] MCHC (RBC) [Mass/Vol] 33.3 g/dL Normal 32-36 [facility] Comment on above: Performed By: #### L 501.9520, L501.9985, L501.5200 #### [facility] [address] [place], [address] MCV (RBC) [Entitic vol] 91.8 fL Normal 81-99 [facility] Comment on above: Performed By: #### L 501.9520, L501.9985, L501.5200 #### [facility] [address] [place], [address] Platelet mean volume (Bld) [Entitic vol] 9.4 fL Normal 6.2-12.0 [facility] Comment on above: Performed By: #### L 501.9520, L501.9985, L501.5200 #### [facility] [address] [place], [address] Platelets (Bld) [#/Vol] 270 10*3/uL Normal 150-450 [facility] Comment on above: Performed By: #### L 501.9520, L501.9985, L501.5200 #### [facility] [address] [place], [address] RBC (Bld) [#/Vol] 4.25 10*6/uL Normal 4.2-5.4 [facility] Comment on above: Performed By: #### L 501.9520, L501.9985, L501.5200 #### [facility] [address] [place], [address] RDW SD 42.6 fl Normal 35.1-43.9 [facility] Comment on above: Performed By: #### L 501.9520, L501.9985, L501.5200 #### [facility] [address] [place], [address] WBC (Bld) [#/Vol] 8.9 10*3/uL Normal 4.4-11.0 [facility] Comment on above: Performed By: #### L 501.9520, L501.9985, L501.5200 #### [facility] [address] [place], [address] CTA Chest W/WO Contraston CTA Chest W/WO Contrast [facility] Imaging Services [address] [place], [place] [address] CTA Chest W/WO Contrast MR#: [id number] Acct: [id number] Name: GEORGINA SEGURA Rep #: [id number] : 1945 F 79 From: Cherie Edmondson MD PCP: Dr. Dinah Melgar MD Status: REG ER Study: CTA Chest W/WO Contrast Date of Exam: 08/13/24 Exam# [id number] Ordering Dr: Haider Hinojosa DO PROCEDURE: CTA CHEST W/WO CONTRAST 08/13/2024 REASON FOR EXAM: HYPOXIA TECHNIQUE: CTA axial imaging of the chest with intravenous contrast. Coronal and Sagittal reconstruction series were provided. 3D, 3D post processing, 3D reconstructions, Maximum intensity projection (MIPs) Volume rendering and Shaded surface rendering was provided. PATIENT PREPARATION: Per protocol CONTRAST: Isovue 370 VOLUME: 100 ML 18 gauge IV One or more dose reduction techniques were used (e.g., Automated exposure control, adjustment of the mA and/or kV according to patient size, use of iterative reconstruction technique). RADIATION DOSE SUMMARY: CTDlvol: 509.5 mGy DLP: 513.1 mGycm . COMPARISON: Chest radiograph dated August 13, 2024 FINDINGS: Hardware: None Lymph nodes: No lymphadenopathy. Heart: The heart is normal in size. The great vessels are normal in size and caliber. No pericardial effusion. Coronary artery calcification. RV/LV Diameter Ratio: Unremarkable Thoracic Aorta: Unremarkable Pulmonary Vessels: No evidence of pulmonary emboli up to the segmental arterial branches. More peripheral vessels are not well assessed. Most Proximal Level of Embolus (if embolus present): Lungs and Airways: Central airways are patent. Patchy opacity within the lingula and bilateral lower lobe likely representing scarring or subsegmental atelectasis. Dependent left basilar atelectasis. Pleura: Questionable trace left pleural effusion. Upper Abdomen: Unremarkable Bones: Multilevel degenerative changes throughout the spine. CT/CTA Chest W/WO Contrast IMPRESSION: No evidence of a pulmonary emboli up to the segmental arterial branches. More peripheral vessels are not well assessed. Reading Location: [facility] CC: Dr. Haider Hinojosa DO; Dr. Dinah Melgar MD 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Signed Normal [facility] Carbon dioxide, total [Moles /volume] in Central venous bloodOrdered By: Haider Hinojosa on 08-13-2024 CO2 [Moles/Vol] 21.7 mmol/L 21.0-32.0 [facility] Chest 1 View (Portable)on Chest 1 View (Portable) [facility] Imaging Services [address] [place] [address] Chest 1 View (Portable) MR#: [id number] Acct: [id number] Name: GEORGINA SEGURA Rep #: [id number] : 1945 F 79 From: Cosme kimble MD PCP: Dr. Dinah Melgar MD Status: [facility] ER Study: Chest 1 View (Portable) Date of Exam: 08/13/24 Exam# [id number] Ordering Dr: Haider Hinojosa DO PROCEDURE: CHEST 1 VIEW (PORTABLE) 08/13/2024 REASON FOR EXAM: SOB TECHNIQUE: Frontal view of the chest. COMPARISON: None FINDINGS: Hardware: None Heart: Heart size is mildly enlarged. Lungs: Mild bibasilar atelectasis. No focal consolidation. No pneumothorax. No pleural effusion. Bones: Degenerative changes are identified within the thoracic spine. Other: RAD/Chest 1 View (Portable) IMPRESSION: No Acute Findings. [facility] CC: Dr. Haider Hinojosa DO; Dr. Dinah Melgar MD 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Signed Normal [facility] Chloride assayOrdered By: Luis Hinojosa on 08-13-2024 Chloride [Moles/Vol] 102 mmol/L 98-108 [facility] Comprehensive Metabolic Prof ilon 08-13-2024 Albumin [Mass/Vol] 4.0 g/dL Normal 3.4-4.8 [facility] Comment on above: Performed By: #### L 501.9520, L501.9985, L501.5200 #### [facility] [address] [place], [address] Albumin/Globulin [Mass ratio] 1.6 {ratio} Normal 0.9-2.4 [facility] Comment on above: Performed By: #### L 501.9520, L501.9985, L501.5200 #### [facility] [address] [place], [address] ALK PHOS 100 U/L Normal 35-104 [facility] Comment on above: Performed By: #### L 501.9520, L501.9985, L501.5200 #### [facility] [address] [place], [address] ALT [Catalytic activity/Vol] 10 U/L Normal <=34 [facility] Comment on above: Performed By: #### L 501.9520, L501.9985, L501.5200 #### [facility] [address] [place], [address] AST [Catalytic activity/Vol] 21 U/L Normal <=31 [facility] Comment on above: Performed By: #### L 501.9520, L501.9985, L501.5200 #### [facility] [address] [place], [address] Bilirubin [Mass/Vol] 0.25 mg/dL Normal 0.00-1.30 [facility] Comment on above: Performed By: #### L 501.9520, L501.9985, L501.5200 #### [facility] [address] [place], [address] BUN/CRE 16.7 RATIO Normal 10-20 [facility] Comment on above: Performed By: #### L 501.9520, L501.9985, L501.5200 #### [facility] [address] [place], [address] Calcium [Mass/Vol] 8.8 mg/dL Normal 7.6-11.0 [facility] Comment on above: Performed By: #### L 501.9520, L501.9985, L501.5200 #### [facility] [address] [place], [address] Chloride [Moles/Vol] 102 mmol/L Normal 98-108 [facility] Comment on above: Performed By: #### L 501.9520, L501.9985, L501.5200 #### [facility] [address] [place], [address] CO2 [Moles/Vol] 21.7 mmol/L Normal 21.0-32.0 [facility] Comment on above: Performed By: #### L 501.9520, L501.9985, L501.5200 #### [facility] [address] [place], [address] Creatinine [Mass/Vol] 1.27 mg/dL High 0.70-1.20 [facility] Comment on above: Performed By: #### L 501.9520, L501.9985, L501.5200 #### [facility] [address] [place], [address] ECRCL 37.10 ml/min Low 50-250 [facility] Comment on above: Performed By: #### L 501.9520, L501.9985, L501.5200 #### [facility] [address] [place], [address] GAP 12 Normal 5-15 [facility] Comment on above: Performed By: #### L 501.9520, L501.9985, L501.5200 #### [facility] [address] [place], [address] GFR/1.73 sq M.predicted among non-blacks MDRD (S/P/Bld) [Vol rate/Area] 42 mL/min/{1.73_m2} Low >60 [facility] Comment on above: Result Comment: mL/m in/1.73m2 CKD-EPI Creatinine Equation (2020) Performed By: #### L 501.9520, L501.9985, L501.5200 #### [facility] [address] [place], [address] Globulin (S) [Mass/Vol] 2.4 g/dL Normal 2.2-4.2 [facility] Comment on above: Performed By: #### L 501.9520, L501.9985, L501.5200 #### [facility] [address] [place], [address] Glucose [Mass/Vol] 123 mg/dL High 70-99 [facility] Comment on above: Performed By: #### L 501.9520, L501.9985, L501.5200 #### [facility] [address] [place], [address] Potassium [Moles/Vol] 3.9 mmol/L Normal 3.3-5.1 [facility] Comment on above: Performed By: #### L 501.9520, L501.9985, L501.5200 #### [facility] [address] [place], [address] Sodium [Moles/Vol] 136 mmol/L Normal 133-145 [facility] Comment on above: Performed By: #### L 501.9520, L501.9985, L501.5200 #### [facility] [address] [place], [address] T PROT 6.4 g/dL Normal 5.9-8.4 [facility] Comment on above: Performed By: #### L 501.9520, L501.9985, L501.5200 #### [facility] [address] [place], [address] Urea nitrogen [Mass/Vol] 21 mg/dL High 4-19 [facility] Comment on above: Performed By: #### L 501.9520, L501.9985, L501.5200 #### [facility] [address] [place], [address] Emergency Department Summary on 08-13-2024 Emergency Department Summary [facility] Medical Records Department [address] [place] [address] Emergency Department Summary 08/13/24 MR#: [id number] Acct: [id number] Name: GEORGINA SEGURA Rep #: [id number] : 1945 79 From: Haider Hinojosa DO PCP: Dr. Dinah Melgar MD Status:REG ER Location: ED HPI History of Present Illness Chief Complaint: Back [facility] Medical History NAYA (obstructive sleep apnea) Noncompliance with CPAP treatment Venous insufficiency (chronic) (peripheral) Dementia Dehydration Neurogenic bladder Frequent falls Glucose intolerance (impaired glucose tolerance) Loss of hearing Post-menopausal Ambulates with cane Arthritis Back pain Injury of head and neck Asthma CPAP (continuous positive airway pressure) dependence History of pain when walking Wears glasses Depression Overactive bladder High cholesterol Easy bruising Non-smoker PONV (postoperative nausea and vomiting) GERD (gastroesophageal reflux disease) Hypothyroid Home Medications ???Medication ???Instructions ???Recorded ???Last Taken ???Type famotidine 40 mg tablet 40 mg PO QHS GERD 06/11/22 Unknown History mirabegron 50 mg tablet,extended 50 mg PO DAILY OAB 06/11/22 Unknow n History release 24 hr (Myrbetriq) pantoprazole 40 mg granules 40 mg PO DAILY GERD 06/11/2208/22 History delayed-release for susp in packet ezetimibe 10 mg tablet 10 mg PO DAILY cholestorol 3 08/23/23 History albuterol sulfate 90 mcg/actuation 2 inh inhalation Q4H PRN 4 Unknown History aerosol inhaler SOB,Wheezing acetaminophen 500 mg tablet 1,000 mg (2 x 500 mg) PO Q8 #180 0 09/07/23 Unknown Rx tabs carvedilol 6.25 mg tablet 6.25 mg PO BIDCM #60 tabs 09/07/23 Unknown Rx fluoxetine 20 mg capsule (Prozac) 20 mg PO DAILY #30 caps 09/07/23 Unknown Rx ipratropium bromide 42 mcg (0.06 2 spray NASAL TID #1 BOTTLE Unknown Rx %) nasal spray levothyroxine 50 mcg tablet 50 mcg PO DAILY@0600 #30 tabs 05/0 06/01 Unknown Rx solifenacin 10 mg tablet 10 mg PO DAILY 08/12/24 Unknown Hi story polyethylene glycol 3350 17 17 g PO BID PRN constipation 08/13 Unknown History gram/dose oral powder (Miralax) Allergy/AdvReac Type Severity Reaction Status Date / Time rofecoxib (From Vioxx) Allergy Unknown Verified 08/13/24 18:49 Surgical History Hx of surgical biopsy History of bladder surgery History of partial hysterectomy History of appendectomy History of cholecystectomy H/O lateral meniscus repair of right knee Social History housing: house Smoking Status: Never smoker second hand exposure: Yes substance use type: does not use EXAM Physical Exam Const Vital Signs: 08/13/24 18:49 08/13/24 20:43 08/13/24 20:43 Temperature 97.5 F L Temperature Source Temporal Pulse Rate 88 Respiratory Rate 19 H Blood Pressure 134/68 H Blood Pressure Mean 90 Pulse Ox 92 80 92 Oxygen Delivery Method Room Air Room Air Nasal Cannula Oxygen Flow Rate (L/min) 2 08/13/24 22:45 08/13/24 23:47 Temperature Temperature Source Pulse Rate 88 85 Respiratory Rate 18 22 H Blood Pressure 120/63 148/78 H Blood Pressure Mean 82 101 Pulse Ox 96 96 Oxygen Delivery Method Nasal Cannula Nasal Cannula Oxygen Flow Rate (L/min) 2 2 MDM MDM MDM Narrative Medical decision making narrative: HISTORY OF PRESENT ILLNESS: Chief complaint: Back pain 79-year-old female present back pain is now resolved. Notes lower midsternal back pain that got worse after recent fall where she received an x-ray for. She states she has no bowel or bladder incontinence, no urinary retention, no loss of motor sensation in her legs. She notes pain in the flank area when asked to locate her pain. She denies vomiting. Denies chest pain or shortness of breath. Denies abdominal pain but does note some abdominal fullness. REVIEW OF SYSTEMS: Pertinent positives: Back pain, abdominal pain, flank pain Pertinent negatives: Vomiting, chest pain PHYSICAL EXAM: Nursing triage notes reviewed, Vital signs reviewed Constitutional: please see mdm HENT: MMM Eyes: Pupils equal round and reactive to light, Extraocular muscles intact Neck: No stridor, no JVD, full neck ROM Lungs: Clear to auscultation, No wheezing or rales. No increased work of breathing, no conversational dyspnea, no accessory muscle use, no nasal flaring. No respiratory distress noted Heart: Regular rate and rhythm, No murmurs, No rubs and No gallops, 2+ distal pulses (radial, femoral, posterior tibial) in all extremities Abdomen: Soft, there is no tender (more content not included)... Normal [facility] Epithelial cells.squamous LM Ql (Urine sed)Ordered By: Joelle Gilliam on 08-13-2024 Epithelial cells.squamous LM.HPF (Urine sed) [#/Area] 0 /[HPF] 5-10 [facility] Erythrocyte distribution wid th (RBC) [Ratio]Ordered By: Haider Hinojosa on 08-13-2024 Erythrocyte distribution width (RBC) [Entitic vol] 42.6 fL 35.1-43.9 [facility] Erythrocyte distribution wid th ratioOrdered By: Haider Hinojosa on 08-13-2024 Erythrocyte distribution width (RBC) [Ratio] 12.9 % 11.6-14.6 [facility] Estimation of creatinine awa aranceOrdered By: Haider Hinojosa on 08-13-2024 Estimated Creatinine Clearance Calc 37.10 ml/min Low 50-250 [facility] GFR/1.73 sq M.predicted mary kate g non-blacks MDRD (S/P/Bld) [Vol rate/Area]Ordered By: Haider Hinojosa on 08-13-2024 Estimated GFR (MDRD) Non-Af Amer 42 Low >60 [facility] Comment on above: mL/min/1.73m2 CKD-EP I Creatinine Equation (2020) Glucose Ql (U)Ordered By: Cathy Gilliam on 08-13-2024 Urine Glucose (UA) Normal mg/dl Normal [facility] Hematocrit Auto (Bld) [Volum e fraction]Ordered By: Haider Hinojosa on 08-13-2024 Hematocrit (Bld) [Volume fraction] 39.0 % 37-47 [facility] Hemoglobin measurementOrdere d By: Haider Hinojosa on 08-13-2024 Hemoglobin (Bld) [Mass/Vol] 13.0 g/dL 12.0-15.0 [facility] Influenza virus A and B and SARS-CoV-2 (COVID-19) and Respiratory syncytial virus RNAOrdered By: Haider Hinojosa on 08-13-2024 SARS-CoV-2 (COVID-19) RNA VIKRAM+probe Ql (Unsp spec) [facility] Ketones Test strip Ql (U)Ord ered By: Joelle Gilliam on 08-13-2024 Ketones Ql (U) 5 mg/dl High Negative [facility] L501.4021on 08-13-2024 Trop T High Sen 22 ng/L High <=14 [facility] Comment on above: Performed By: #### L 501.6999, L501.9968, L501.9380 #### [facility] [address] [place], [address] L503.7501on 08-13-2024 Natriuretic peptide B (Bld) [Mass/Vol] 236 pg/mL Normal <=1800 [facility] Comment on above: Result Comment: Hear t Failure Unlikely: < 300 pg/mL Heart Failure Likely < 50 Years: > 450 pg/mL 50-75 Years: > 900 pg/mL >75 Years: > 1800 pg/mL Performed By: #### L 501.9520, L501.9985, L501.5200 #### [facility] [address] [place], [place], [id number] Laboratory - Chemistry and C hemistry - challengeOrdered By: Haider Hinojosa on 08-13-2024 AST [Catalytic activity/Vol] 21 U/L <32 [facility] M100.678on 08-13-2024 M100.678 SARS-CoV-2 (COVID 19 ) Negative INFLUENZA A Negative INFLUENZA B Negative RSV PCR Negative Normal [facility] Comment on above: Performed By: #### L 501.9520, L501.9985, L501.5200 #### [facility] [address] [place], [place], [address] MCV (mean corpuscular volume ) determinationOrdered By: Haider Hinojosa on 08-13-2024 MCV (RBC) [Entitic vol] 91.8 fL 81-99 [facility] Mean corpuscular hemoglobin (MCH) determinationOrdered By: Haider Hinojosa on 08-13-2024 MCH (RBC) [Entitic mass] 30.6 pg 27.0-32.0 [facility] Mean corpuscular hemoglobin concentration (MCHC) determinationOrdered By: Haider Hinojosa on 08-13-2024 MCHC (RBC) [Mass/Vol] 33.3 g/dL 32-36 [facility] Mean platelet volume determi nationOrdered By: Haider Hinojosa on 08-13-2024 Platelet mean volume (Bld) [Entitic vol] 9.4 fL 6.2-12.0 [facility] Microscopic analysis of urin e for red blood cells (RBC)Ordered By: Joelle Gilliam on 08-13-2024 Urine RBC 0-5 SEEN /hpf 0-5 [facility] Mucus LM Ql (Urine sed)Order ed By: Joelle Gilliam on 08-13-2024 Mucus Ql (Urine sed) 0 SEEN /hpf [facility] Natriuretic peptide.B prohor sylvie N-Terminal [Mass/Vol]Ordered By: Haider Hinojosa on 08-13-2024 Natriuretic peptide B (Bld) [Mass/Vol] 236 pg/mL <1800 [facility] Comment on above: Heart Failure Unlike ly: < 300 pg/mLHeart Failure Likely< 50 Years: > 450 pg/mL50-75 Years: > 900 pg/mL>75 Years: > 1800 pg/mL Nitrite Test strip Ql (U)Ord ered By: Joelle Gilliam on 08-13-2024 Nitrite Ql (U) Positive High Negative [facility] Platelet countOrdered By: Luis Hinojosa on 08-13-2024 Platelets (Bld) [#/Vol] 270 10*3/uL 150-450 [facility] Potassium (Unsp spec) [Mass/ Vol]Ordered By: Haider Hinojosa on 08-13-2024 Potassium [Moles/Vol] 3.9 mmol/L 3.3-5.1 [facility] Protein Test strip Ql (U)Ord ered By: Joelle Gilliam on 08-13-2024 Protein Ql (U) 30 mg/dl High Negative [facility] RBC Auto (Bld) [#/Vol]Ordere d By: Haider Hinojosa on 08-13-2024 RBC (Bld) [#/Vol] 4.25 10*6/uL 4.2-5.4 [facility] Serum creatinine measurement (mass/volume)Ordered By: Haider Hinojosa on 08-13-2024 Creatinine [Mass/Vol] 1.27 mg/dL High 0.70-1.20 [facility] Serum globulin measurementOr dered By: Haider Hinojosa on 08-13-2024 Globulin (S) [Mass/Vol] 2.4 g/dL 2.2-4.2 [facility] Serum glucose measurement (m ass/volume)Ordered By: Haider Hinojosa on 08-13-2024 Glucose [Mass/Vol] 123 mg/dL High 70-99 [facility] Serum or plasma alanine andres otransferase (ALT) measurementOrdered By: Haider Hinojosa on 08-13-2024 ALT [Catalytic activity/Vol] 10 U/L <35 [facility] Serum or plasma albumin stephanie urement (mass/volume)Ordered By: Haider Hinojosa on 08-13-2024 Albumin [Mass/Vol] 4.0 g/dL 3.4-4.8 [facility] Serum or plasma albumin/glob ulin mass ratioOrdered By: Haider Hniojosa on 08-13-2024 Albumin/Globulin [Mass ratio] 1.6 {ratio} 0.9-2.4 [facility] Serum or plasma alkaline yaya sphatase measurementOrdered By: Haider Hinojosa on 08-13-2024 ALP [Catalytic activity/Vol] 100 U/L 35-104 [facility] Serum or plasma calcium stephanie urement (mass/volume)Ordered By: Haider Hinojosa on 08-13-2024 Calcium [Mass/Vol] 8.8 mg/dL 7.6-11.0 [facility] Serum or plasma urea nitroge n measurement (mass/volume)Ordered By: Haider Hinojosa on 08-13-2024 Urea nitrogen [Mass/Vol] 21 mg/dL High 4-19 [facility] Sodium levelOrdered By: Ranjan Hinojosa on 08-13-2024 Sodium [Moles/Vol] 136 mmol/L 133-145 [facility] Spine Lumbar without Contras ton 08-13-2024 Spine Lumbar without Contrast [facility] Imaging Services [address] [place] [id number] Spine Lumbar without Contrast MR#: [id number] Acct: [id number] Name: GEORGINA SEGURA Rep #: [id number] : 1945 F 79 From: Cosme kimble MD PCP: Dr. Dinah Melgar MD Status: REG ER Study: Spine Lumbar without Contrast Date of Exam: Exam# [id number] Ordering Dr: Haider Hinojosa DO PROCEDURE: SPINE LUMBAR WITHOUT CONTRAST 08/13/2024 REASON FOR EXAM: BACK PAIN TECHNIQUE: Lumbar spine CT without contrast. Coronal and Sagittal reconstruction series were provided. One or more dose reduction techniques were used (e.g., Automated exposure control, adjustment of the mA and/or kV according to patient size, use of iterative reconstruction technique COMPARISON: Lumbar spine radiograph 08/12/2024 FINDINGS: Vertebrae: Vertebral body heights are maintained. Mild multilevel loss of disc space most prominent at L1-L2 and L2-L3. No acute fracture or traumatic malalignment. Right sacral spiculated lesion, likely bone island. Otherwise, no evidence of lytic or blastic lesion. Alignment: Lumbar lordosis is maintained. Mild levoscoliosis. Grade 1 anterolisthesis of L3 on L4 and L4 on L5. Multilevel degenerative changes with up to mild canal stenosis and moderate neural foraminal narrowing most prominent at L3-L4 CT/Spine Lumbar without Contrast IMPRESSION: No acute fracture or traumatic subluxation. Degenerative changes, most prominent at L3-L4. [facility] CC: Dr. Haider Hinojosa DO; Dr. Dinah Melgar MD 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Signed Normal [facility] TSH DL <= 0.005 mIU/L QnOrde red By: Jose Yepez on 08-13-2024 Thyroid Stimulating Hormone (TSH) 5.550 uIU/mL High 0.300-4.200 [facility] Total proteinOrdered By: Manpreet Hinojosa on 08-13-2024 Protein [Mass/Vol] 6.4 g/dL 5.9-8.4 [facility] Troponin T.cardiac High sens itivity method [Mass/Vol]Ordered By: Haider Hinojosa on 08-13-2024 Troponin T High Sensitivity 22 ng/L High <14 [facility] Urinalysis, Completeon 08-13 BACTERIA 3+ /hpf Normal None Seen [facility] Comment on above: Order Comment: LAVERNE CTOR TO SPECIFY Performed By: #### L 501.9512, L501.9971, L501.5200 #### [facility] [address] [place], [address] RBC 0-5 SEEN Normal 0-5 [facility] Comment on above: Order Comment: LAVERNE CTOR TO SPECIFY Performed By: #### L 501.9520, L501.9985, L501.5200 #### [facility] [address] [place], [address] WBC 25-50 SEEN Normal 0-5 [facility] Comment on above: Order Comment: LAVERNE CTOR TO SPECIFY Performed By: #### L 501.9520, L501.9985, L501.5200 #### [facility] [address] [place], [address] EPI,SQUAMOUS 0 SEEN Normal 5-10 [facility] Comment on above: Order Comment: LAVERNE CTOR TO SPECIFY Performed By: #### L 501.9520, L501.9985, L501.5200 #### [facility] [address] [place], [address] Mucus Ql (Urine sed) 0 SEEN Normal [facility] Comment on above: Order Comment: LAVERNE CTOR TO SPECIFY Performed By: #### L 501.9520, L501.9985, L501.5200 #### [facility] [address] [place], [address] Urine blood detectionOrdered By: Joelle Gilliam on 08-13-2024 Urine Occult Blood 10 /ul High Negative [facility] Urine clarityOrdered By: Rizwana Gilliam on 08-13-2024 Clarity (U) Sl. Cloudy Clear [facility] Urine color determinationOrd ered By: Joelle Gilliam on 08-13-2024 Color (U) Yellow Yellow [facility] Urine cultureOrdered By: Manpreet Hinojosa on 08-13-2024 Bacteria identified Cx Nom (U) Escherichia coli Abnormal [facility] Urine leukocyte esterase det ection by dipstickOrdered By: Joelle Gilliam on 08-13-2024 Leukocyte esterase Test strip Ql (U) 500 /ul High Negative [facility] Urine pHOrdered By: Joelle esparza on 08-13-2024 pH (U) 5.0 [pH] 5.0 - 8.0 [facility] Urine sediment bacteria coun t by microscopy (number/high power field)Ordered By: Joelle Gilliam on 08-13-2024 Bacteria LM.HPF (Urine sed) [#/Area] 3 /[HPF] None Seen [facility] Urine specific gravity measu rementOrdered By: Joelle Gilliam on 08-13-2024 Specific gravity (U) [Rel density] 1.025 1.002-1.030 [facility] Urobilinogen Ql (U)Ordered B y: Joelle Gilliam on 08-13-2024 Urine Urobilinogen Normal mg/dl Normal [facility] White blood cell (WBC) count Ordered By: Haider Hinojosa on 08-13-2024 WBC (Bld) [#/Vol] 8.9 10*3/uL 4.4-11.0 [facility] White blood cell countOrdere d By: Joelle Gilliam on 08-13-2024 Urine WBC 25-50 SEEN /hpf 0-5 [facility] Emergency Department Summary on 08-12-[address] [facility] Medical Records Department [address] [place] [address] Emergency Department Summary 08/12/24 MR#: [id number] Acct: [id number] Name: GEORGINA SEGURA Rep #: [id number] : 1945 79 From: Nic Chicas DO PCP: Dr. Dinah Melgar MD Status:DEP ER Location: ED HPI HPI - Fall History of Present Illness Chief Complaint: Fall Informant: patient Occured/Mechanism Occurred: Days (2 days ago) Narrative: Patient presents with a fall that occurred 2 days ago. Patient states she actually fell twice. Patient states the first time she fell out of bed. Patient states the second time she was standing and turned when she fell. Patient states her pain is mainly over her lower back. Patient describes it as aching. Patient states it is worse with movement. Patient denies any paresthesias or weakness. Patient states she hit her head the first time she fell but denies any loss of consciousness. Patient denies any other injuries. Pain/Injury Pain Location: back Quality of Pain: Aching Worsened by: Movement Relieved by: Rest Associated Symptoms Associated Symptoms: Negative for Parasthesias, Weakness, Loss of function, Inability to ambulate, Loss of consciousness or Amnesia PFSH PFSH Medical History NAYA (obstructive sleep apnea) Noncompliance with CPAP treatment Venous insufficiency (chronic) (peripheral) Dementia Dehydration Neurogenic bladder Frequent falls Glucose intolerance (impaired glucose tolerance) Loss of hearing Post-menopausal Ambulates with cane Arthritis Back pain Injury of head and neck Asthma CPAP (continuous positive airway pressure) dependence History of pain when walking Wears glasses Depression Overactive bladder High cholesterol Easy bruising Non-smoker PONV (postoperative nausea and vomiting) GERD (gastroesophageal reflux disease) Hypothyroid Home Medications ???Medication ???Instructions ???Recorded ???Last Taken ???Type famotidine 40 mg tablet 40 mg PO QHS GERD 06/11/22 Unknown History mirabegron 50 mg tablet,extended 50 mg PO DAILY OAB 06/11/22 Unknow n History release 24 hr (Myrbetriq) pantoprazole 40 mg granules 40 mg PO DAILY GERD 06/11/2208/22 History delayed-release for susp in packet ezetimibe 10 mg tablet 10 mg PO DAILY cholestorol 3 08/23/23 History albuterol sulfate 90 mcg/actuation 2 inh inhalation Q4H PRN 4 Unknown History aerosol inhaler SOB,Wheezing acetaminophen 500 mg tablet 1,000 mg (2 x 500 mg) PO Q8 #180 0 09/07/23 Unknown Rx tabs carvedilol 6.25 mg tablet 6.25 mg PO BIDCM #60 tabs 09/07/23 Unknown Rx fluoxetine 20 mg capsule (Prozac) 20 mg PO DAILY #30 caps 09/07/23 Unknown Rx ipratropium bromide 42 mcg (0.06 2 spray NASAL TID #1 BOTTLE Unknown Rx %) nasal spray levothyroxine 50 mcg tablet 50 mcg PO DAILY@0600 #30 tabs 0506/01 Unknown Rx polyethylene glycol 3350 17 17 g PO BID #850 grams 09/07/23 Un known Rx gram/dose oral powder (Miralax) hydrocodone-acetamino phen 5-325mg 1 tab PO Q6H PRN PRN Pain 3 days 04/06/25 Unknown Rx 5mg-325mg #10 TABLETS solifenacin 10 mg tablet 10 mg PO DAILY 08/12/24 Unknown Hi story Allergy/AdvReac Type Severity Reaction Status Date / Time rofecoxib (From Vioxx) Allergy Unknown Verified 08/12/24 11:32 Surgical History Hx of surgical biopsy History of bladder surgery History of partial hysterectomy History of appendectomy History of cholecystectomy H/O lateral meniscus repair of right knee Social History housing: house Smoking Status: Never smoker second hand exposure: Yes substance use type: does not use ROS ROS ED Constitutional Constitutional ED: Denies chills or fever(s) Eyes Eyes: Denies blurry vision or change in vision ENT ENT ED: Denies rhinorrhea or sore throat Cardiovascular Cardiovascular: Denies chest pain or palpitations Respiratory/Chest Respiratory/Chest: Reports cough; Denies dyspnea Gastrointestinal Gastrointestinal: Reports diarrhea; Denies nausea or vomiting Genitourinary Genitourinary ED: Denies dysuria or hematuria Musculoskeletal Musculoskeletal: Reports back pain; Denies neck pain Integumentary Denies abscess or rash Neurologic Neurologic: Denies headache(s) or weakness Allergic/Immunologic Allergic/Immunologic ED: Denies mouth swelling or urticaria EXAM Physical Exam Const Vital Signs: 08/12/24 11:30 08/12/24 11:42 Temperature 97.9 F Temperature Source Oral Pulse Rate 84 Respiratory Rate 16 Respiratory Effort Normal Respiratory Depth Normal Respiratory Pattern Normal Blood Pressure 159 (more content not included)... Normal [facility] Lumbar Spine 2 or 3 Viewson 08-12-2024 Lumbar Spine 2 or 3 Views [facility] Imaging Services [address] [place] [address] Lumbar Spine 2 or 3 Views MR#: [id number] Acct: [id number] Name: GEORGINA SEGURA Rep #: [id number] : 1945 F 79 From: Carolina Wells nd, MD PCP: Dr. Dinah Melgar MD Status: REG ER Study: Lumbar Spine 2 or 3 Views Date of Exam: Exam# [id number] Ordering Dr: Nic Chicas DO PROCEDURE: LUMBAR SPINE 2 OR 3 VIEWS 08/12/2024 REASON FOR EXAM: INJURY/PAIN TECHNIQUE: 3 view(s) of the lumbar spine COMPARISON: None. FINDINGS: Vertebrae: The vertebral body heights are maintained. No acute fracture. Discs: Mild-moderate multilevel disc space narrowing. Alignment: Mild leftward curvature of the lumbar spine. Grade 1 retrolisthesis of L3 onto L4, and L4 onto L5. no traumatic listhesis. Other: Calcific plaque of the abdominal aorta. Partially visualized battery pack and stimulator overlying the sacrum. The visualized SI joints are maintained. RAD/Lumbar Spine 2 or 3 Views IMPRESSION: Degenerative changes. No acute fracture. Reading Location: [facility] CC: Dr. Nic Chicas DO; Dr. Dinah Melgar MD 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Signed [facility] 07-30-2024 [facility] Office Visit (FAMPWS ) GEORGINA SEGURA ([id number]) 1945 F Date Time Provider Department 07/30/24 10:00 AM DINAH MELGAR FAMPWS During your visit today, we recorded the following information about you: Pulse Blood pressure Weight Height 92/minute 122/70 89.4 kg 1.6 m Dinah Melgar MD 07/30/2024 10:34 AM Signed Patient presents with: Follow Up HPI: Patient presents today for office visit for routine follow up. Had a fall a couple months ago. While walking up steps into house she tripped and fell. Hit her face. Caused bruising to left eye. Ambulates with cane when outside of home. Her knees still bother her. Still wearing neck brace. Seeing neuro. Inquiring about driving. Advised to wait for now. She recently could not remember what happened to her neck. Occasionally will talk about things repeatedly. No obvious other memory issues. They do not think it is a big issue now. Red flags for re-assessment reviewed with patient in detail. Denies chest pain and shortness of breath. Has edema to B/L feet and ankles. Left ankle/calf is much worse. She is not wearing the compression hose as we discussed Is actually down three lbs No chest pain or shortness of breath. Has had edema dating back at least 10 years. Has had duplexes in the past. Shoulder is not bad. Note was copied and pasted, without alteration from previous ov: Complains of right shoulder pain X 5 days. Daughter thinks it may be longer. No injury. Pain is constant. Refers to It really hurts Hx of rotator cuff repair same side No new neck pain. No injury. Pain is over the posterior shoulder. Used ice and heat. No numbness or tingling. She did see neurosurgery on 04/30. They are considering stopping her wearing her collar. Just had xrays done recently Did have a fall off of a chair at [facility] but no injuries since. Did not bother her after. Also having issues with worsening chronic edema. Is not moving around as much. Has been more sedentary. No chest pain with exertion. Drinking coffee etc again. She recently had some constipation She had a panic attack. Was short of breath and uncomfortable in trunk. Given mag citrate and enema Once she got her bowels better, she was fine. No redness or soreness in her legs. Not wearing compression stockings. The swelling goes down at night. Latest Ref [facility] 05/28/2024 WBC 3.70 - 11.00 k/uL 10.01 RBC 3.90 - 5.20 m/uL 4.52 Hemoglobin 11.5 - 15.5 g/dL 14.0 Hematocrit 36.0 - 46.0 % 43.0 MCV 80.0 - 100.0 fL 95.1 MCH 26.0 - 34.0 pg 31.0 MCHC 30.5 - 36.0 g/dL 32.6 RDW-CV 11.5 - 15.0 % 12.6 Platelet Count 150 - 400 k/uL 353 MPV 9.0 - 12.7 fL 10.4 Neut% % 61.6 Abs Neut (ANC) 1.45 - 7.50 k/uL 6.17 Lymph% % 29.1 Abs Lymph 1.00 - 4.00 k/uL 2.91 Anasco% % 6.6 Abs [place]co <0.87 k/uL 0.66 Eosin% % 1.6 Abs Eosin <0.46 k/uL 0.16 Baso% % 0.8 Abs Baso <0.11 k/uL 0.08 Immature Gran % % 0.3 IMMATURE GRANS (ABS) <0.10 k/uL 0.03 NRBC /100 WBC 0.0 Absolute nRBC <0.01 k/uL <0.01 DTYPE Auto Protein, Total 6.3 - 8.0 g/dL 7.0 Albumin 3.9 - 4.9 g/dL 4.8 Calcium 8.5 - 10.2 mg/dL 9.7 Bilirubin, Total 0.2 - 1.3 mg/dL <0.2 (L) Alkaline Phosphatase 34 - 123 U/L 94 AST 13 - 35 U/L 19 ALT 7 - 38 U/L 13 Glucose 74 - 99 mg/dL 111 (H) BUN 7 - 21 mg/dL 26 (H) Creatinine 0.58 - 0.96 mg/dL 1.12 (H) Sodium 136 - 144 mmol/L 139 Potassium 3.7 - 5.1 mmol/L 4.3 Chloride 98 - 107 mmol/L 102 CO2 22 - 30 mmol/L 24 Anion Gap 8 - 15 mmol/L 13 eGFR >=60 mL/min/1.73m? 50 (L) TSH 0.270 - 4.200 mIU/L 2.170 Legend: (L) Low (H) High IMPRESSION: Findings are suggestive of degenerative changes in the right shoulder and rotator cuff arthroplasty. MEDICATIONS: Current Outpatient Medications Medication Sig famotidine (PEPCID) 40 mg tablet Take 1 tablet by mouth once daily. ipratropium bromide (ATROVENT) 42 mcg (0.06 %) nasal spray Use 2 Sprays in the nose three times a day. mirabegron (MYRBETRIQ) 50 mg Tb24 Take 1 tablet by mouth once daily. pantoprazole DR (PROTONIX) 40 mg tablet Take 1 tablet by mouth once daily. levothyroxine (SYNTHROID) 50 mcg tablet TAKE 1 TABLET BY MOUTH ONCE DAILY AT 6 AM carvedilol (COREG) 6.25 mg tablet Take 1 tablet by mouth two times a day with meals. FLUoxetine (PROZAC) 20 mg capsule Take 1 capsule by mouth every afternoon. ezetimibe (ZETIA) 10 mg tablet Take 1 tablet by mouth once daily. albuterol HFA (PROVENTIL HFA, VENTOLIN HFA) 90 mcg/actuation inhaler Inhale 2 Puffs as instructed every 4 hours as needed. diclofenac (VOLTAREN ARTHRITIS PAIN) 1 % topical gel Apply 2 g to affected area four times daily. (Patient not taking: Reported on 07/30/2024) cyclobenzaprine (FLEXERIL) 5 mg tablet Take 1 tablet by mouth three times a day. (Patient not taking: Reported on 07/30/2024) No current facility-administered medications f (more content not included)... Normal [facility] XR KNEE 4V AP/PA/LAT/MERCH B ILon 07-30-2024 XR KNEE 4V AP/PA/LAT/MERCH ABDULKADIR * * *Final Report* * * DATE OF EXAM: Jul 30 2024 11:27AM WOX 5618 - XR KNEE 4V AP/PA/LAT/MERCH ABDULKADIR / PROCEDURE REASON: Knee pain, unspecified chronicity, unspecified laterality * * * * Physician Interpretation * * * * EXAM(s): XR KNEE 4V AP/PA/LAT/MERCH ABDULKADIR..... HISTORY: 79 years old Clinical information: Knee pain, unspecified chronicity, unspecified laterality Pt. states chronic bilat knee pain throughout. No injury. TECHNIQUE: Images: XR KNEE 4V AP/PA/LAT/MERCH ABDULKADIR Comparison: 10/23/2020. RESULT: Findings: Advanced degenerative change in the medial joint space compartments bilaterally, both of which are [id number] on the upright films. Lateral joint space is also narrowed in comparison with the previous exam. No intra-articular loose bodies. No fractures. Marginal patellar osteophyte formation. Femoral patellar joint space is narrowed with marginal sclerosis. Diffuse vascular calcification.. IMPRESSION: Advanced osteoarthritis in both knees, progressive since the previous examination dated 10/23/2020 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DIEGO Transcribe Date/Time: Aug 03 2024 5:00P Dictated by : ALYSON WILSON MD This examination was interpreted and the report reviewed and electronically signed by: ALYSON WILSON MD on Aug 03 2024 5:03PM EST [id number] Normal [facility] CNOVon 07-23-2024 [facility] Office Visit (NEAGCLM) GEORGINA SEGURA ([id number]) 1945 F Date Time Provider Department 07/23/24 9:45 AM GUILLAUME DELGADO NEAGCLM During your visit today, we recorded the following information about you: Pulse Respiration Blood pressure Weight 84/minute 16/minute 129/84 91 kg Guillaume Delgado MD, PhD 07/23/2024 10:18 AM Signed NEUROSURGERY FOLLOW UP OFFICE NOTE Guillaume Delgado MD, PhD Date of visit: July 23, 2024 Patient Name: Ms.Betty Ricky Segura Date of : 1945 Current Age: [age] year old Sex: female MRN/E# [id number] Last Office Visit: 04/30/2024 Chief Complaint: Patient presents with: Established Patient SUBJECTIVE: HPI The patient presented to [facility] ED on 08/20/2023 as a transfer from an outside hospital follow a fall. She noted she hit her head on the wall. Outside imaging demonstrated a type 2 odontoid fracture (acute vs chronic). She reported multiple falls recently and in the past. She noted 2-3 weeks prior, she fell and endorsed neck pain but did not seek medical attention. No surgical interventions were required at that time. She was to wear a [place] collar at all times. She was to obtain a bone stimulator outpatient. She was to follow up in 1 month with repeat imaging. At her last visit on 09/16/2023 she stated she had been doing okay since discharge. She reported midline posterior cervical pain. She denied any radicular symptoms. Denied paresthesia. Denied any weakness. Denied any further falls, loss of bowel or bladder. She had since been using a cane for extra support. She was complaint with her cervical collar. She had been using ultram with relief. She was receiving home therapy. She did not receive any information about her bone growth stimulator. There was significant bone loss at the neck of the odontoid process that was caused to believe that she likely had a longstanding fracture in that location. It was difficult to tell thought it may be acute. Her xray's did not have any concerns with respect to odontoid displacement or other issues. She was interested in the bone growth stimulator. It was recommended that she follow up in 3 months with repeat imaging. At her last visit on 12/19/2023 she stated she had continual posterior cervical pain. She denied any radicular symptoms. Patient stated over the last week or so she had noticed left hand numbness. She reported using Tylenol as needed for the pain. She denied dexterity issues. She did not get her x-rays prior to her visit. She denied any recent falls, numbness, tingling or bowel/ bladder incontinence. Patient using a cane for assistance with ambulation. Patient still had her [place] collar on and stated she wanted it off. She noted she continued with her bone growth stimulator. There was concern for a new upper motor neuron finding that was not perviously documented. She was to obtain a CT myelogram of the cervical spine as she could not obtain an MRI due to her bladder stimulator. She was to follow up once completed. At her last visit on 02/01/2024 she stated she continued with very little cervical pain and headaches, but stated the headaches were unrelated to her cervical spine. Denied any radicular symptoms. Continued with left hand numbness. She continued to be off balance and unsteady with use of a cane, but reported this was improving. Denied any falls, loss of bowel or bladder. She had been complaint with her cervical collar. Noted she continued with her bone growth stimulator. 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 This would almost completely remove her ability to move her neck. The goal of surgery be to arrest neurologic progression and not necessarily to achieve neurologic improvement. In this context I think that continuing to wear the cervical collar is the less morbid of the [address] myelogram does not show evidence of healing of her C1-2 fracture we did articulate a plan to continue use of her bone growth stimulator given that there is little downside to doing so. It was recommended that at that time, she continue with conservative treatment and to follow up in 3 months. At her last visit on 04/30/2024 she stated she had been doing well. She denied any cervical pain or headaches. Denied any radicular pain. Denied paresthesia. Noted taking tylenol as needed. Reported a fall the day before where she slid out of a chair onto her bottom. Denied any injuries. Denied feeling off balance and unsteady, but continued with use of cane. She had been compliant with her cervical collar at all times and wears her bone growth stimulator daily. She was having no evident motion at the site of her odontoid fracture on flexion-extensio (more content not included)... Normal [facility] XR CERV 5V AP/LAT/FLX/EXT/OD ONon 07-23-2024 XR CERV 5V AP/LAT/FLX/EXT/ODON * * *Final Report* * * DATE OF EXAM: Jul 23 2024 9:19AM A1X 5312 - XR CERV 5V AP/LAT/FLX/EXT/ODON / PROCEDURE REASON: Closed odontoid fracture, sequela * * * * Physician Interpretation * * * * TECHNIQUE: XR CERV 5V AP/LAT/FLX/EXT/ODON EXAM DATE: 07/23/2024 9:19 AM COMPARISON STUDIES: 04/30/2024 cervical spine x-rays and 01/04/2024 cervical spine myelogram CLINICAL HISTORY: C2 fracture follow-up RESULT: Counting reference: Craniocervical junction. Anatomic Variants: None. C2 dens fracture seen on prior CT not as well appreciated on x-ray, with also limited assessment on the open-mouth odontoid views. Grossly no change between flexion extension 1-2 mm anterolisthesis C4/5, unchanged Straightening/reversa l normal lordosis at the mid to lower cervical spine unchanged No gross instability Visualized vertebral body heights maintained Severe C5/6 and moderate C6/7 disc space narrowing with endplate osteophytes Facet and UVJ degenerative changes IMPRESSION: C2 fracture seen on prior CT not well seen on x-rays. Grossly similar x-ray appearance compared to prior Degenerative changes 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MICAHB Transcribe Date/Time: Jul 26 2024 10:17A Dictated by : JAIMIE RANGEL MD This examination was interpreted and the report reviewed and electronically signed by: JAIMIE RANGEL MD on Jul 26 2024 10:27AM EST [id number] Normal [facility] CNOVon 07-13-2024 CNOV Office Visit (PODIWS ) GEORGINA SEGURA ([id number]) 1945 F Date Time Provider Department 07/13/24 1:00 PM TON LOONEY [facility] During your visit today, we recorded the following information about you: Ton Looney 07/13/2024 1:11 PM Signed Subjective: Patient presents to clinic c/o painful toenails. They state that the nails are especially painful with shoe gear and pressure. Patient states that nails b/l hallux are painful. No other pedal complaints at this time. Patient states no change in medications or medical history since last visit. Objective: Patient presents to clinic ambulating in [facility] Vasc: DP and PT pulses are nonpalpable bilateral. CFT is less than 5 seconds bilateral. Skin temperature is warm to cool proximal to distal bilateral. There is no edema or varicosities noted. Neuro: Protective sensation is intact to the foot and toes when tested with the 5.07 SWM bilateral. Vibratory sensation is absent at the hallux IPJ bilateral. The hallux is downgoing bilateral. Derm: Nails 1-5 b/l are painful, discolored-yellow, thick, crumbly, dystrophic and with subungal debris. Skin is of normal turgor, texture and hair growth is absent bilateral. Right upper arm along anterior lateral biceps has hypopigmented raised lesion. Pic entered into epic Ortho: Muscle strength is 5/5 for all pedal groups tested. Ankle joint DF is full with the knee extended with no pain or crepitus noted. 1st MPJ ROM is full bilateral. Assessment: (B35.1) Onychomycosis (primary encounter diagnosis) (M79.675) Pain in toe of left foot (M79.674) Pain in toe of right foot (D49.2) Skin neoplasm Plan: Patient was seen and evaluated. Nails 1-5 bilateral were debrided in length and thickness. Small bleed to left hallux treated with band aide. Of note, I did notice a small hypopigmented lesion along the right anterior lateral upper arm. I would recommend she consult with derm for possbile biopsy. Discussed [facility] in [place] or [facility]. This patient would like to stay local. Derm referral made. Patient is to RTC in 3-4 months. KATHY Iyer Laurie, MA 07/13/2024 1:18 PM Signed Referral faxed to [facility] ) due to transportation issues. Pt will call when ready to schedule. Jessica Osborn MA Referring Provider: TON LOONEY [[id number]] Allergies As of Date: 07/13/2024 Noted Allergy Reaction VIOXX (ROFECOXIB) 07/12/2005 16 - Unknown Comments: Has used nsaids ZOCOR (SIMVASTATIN) 03/18/2011 14 - Other: See Comments Comments: elevated CPK Date Reviewed: 07/13/2024 Reviewed by: Jessica Osborn MA - Fully Assessed Reason for Visit: Established Patient [175] Established Patient [175] Primary Visit Diagnosis:Onychomycos is [B35.1] Other Visit Diagnoses:Pain in toe of left foot [M79.675] Pain in toe of right foot [M79.674] Skin neoplasm [D49.2] Order(s):CONSULT TO DERMATOLOGY [9006] Order #: [id number]: 1 FUTURE Prescriptions as of 07/13/2024 - diclofenac (VOLTAREN ARTHRITIS PAIN) 1 % topical gel Apply 2 g to affected area four times daily. - cyclobenzaprine (FLEXERIL) 5 mg tablet Take 1 tablet by mouth three times a day. - famotidine (PEPCID) 40 mg tablet Take 1 tablet by mouth once daily. - ipratropium bromide (ATROVENT) 42 mcg (0.06 %) nasal spray Use 2 Sprays in the nose three times a day. - mirabegron (MYRBETRIQ) 50 mg Tb24 Take 1 tablet by mouth once daily. - pantoprazole DR (PROTONIX) 40 mg tablet Take 1 tablet by mouth once daily. - levothyroxine (SYNTHROID) 50 mcg tablet TAKE 1 TABLET BY MOUTH ONCE DAILY AT 6 AM - carvedilol (COREG) 6.25 mg tablet Take 1 tablet by mouth two times a day with meals. - FLUoxetine (PROZAC) 20 mg capsule Take 1 capsule by mouth every afternoon. - ezetimibe (ZETIA) 10 mg tablet Take 1 tablet by mouth once daily. - albuterol HFA (PROVENTIL HFA, VENTOLIN HFA) 90 mcg/actuation inhaler Inhale 2 Puffs as instructed every 4 hours as needed. 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] ESOPHAGEAL REFLUX [K21.9] 11/03/2005 DIFFUS CYSTIC MASTOPATHY [N60.19] 11/03/2005 ALLERGIC RHINITIS NOS [J30.9] 09/30/2007 Rotator cuff syndrome [M75.100] 02/12/2009 04/10/2014 Overactive bladder [N32.81] 02/12/2009 Asthma [J45.909] 03/11/2010 Diarrhea [R19.7] 06/21/2011 04/10/2014 Hyperlipidemia [E78.5] 04/26/2012 04/10/2014 Elevated CK [R74.8] 04/26/2012 04/10/2014 Supraspinatus tendonitis [M75.90] 12/06/2012 04/10/2014 Impingement syndrome of right shoulder [M75.41] 06/06/2013 04/10/2014 Cervical disc disease [M50.90] 06/06/2013 Right rotator cuff tear [M75.101] 06/28/2013 04/10/2014 Mixed incontinence [N39.46] 04/23/2015 Rotator cuff strain (more content not included)... Normal [facility] CBC W Auto Differential pane l (Bld)on 05-28-2024 Basophils (Bld) [#/Vol] 0.08 10*3/uL Normal <0.11 [facility] Comment on above: Order Comment: Speci men Type: BLOOD SPECIMENOrdering Facility: [facility] Address: [address] [place] [address] Performed By: #### 6 30-4 #### [facility] CLIA [id number] [address] [address] [place] Basophils/100 WBC (Bld) 0.8 % Normal [facility] Comment on above: Order Comment: Speci men Type: BLOOD SPECIMENOrdering Facility: [facility] Address: [address] [place] [address] Performed By: #### 6 30-4 #### [facility] CLIA [id number] [address] [address] [place] Differential cell count method Nom (Bld) Auto Normal [facility] Comment on above: Order Comment: Speci men Type: BLOOD SPECIMENOrdering Facility: [facility] Address: [address] [place] [address] Performed By: #### 6 30-4 #### [facility] CLIA [id number] [address] [place] [address] [place] Eosinophils (Bld) [#/Vol] 0.16 10*3/uL Normal <0.46 [facility] Comment on above: Order Comment: Speci men Type: BLOOD SPECIMENOrdering Facility: [facility] Address: [address] [place] [address] Performed By: #### 6 30-4 #### [facility] CLIA [id number] [address] [address] [place] Eosinophils/100 WBC (Bld) 1.6 % Normal [facility] Comment on above: Order Comment: Speci men Type: BLOOD SPECIMENOrdering Facility: [facility] Address: [address] [place] [address] Performed By: #### 6 30-4 #### [facility] CLIA [id number] [address] [address] [place] Erythrocyte distribution width (RBC) [Ratio] 12.6 % Normal 11.5-15.0 [facility] Comment on above: Order Comment: Speci men Type: BLOOD SPECIMENOrdering Facility: [facility] Address: [address] [place] [address] Performed By: #### 6 30-4 #### [facility] CLIA [id number] [address] [address] [place] Hematocrit (Bld) [Volume fraction] 43.0 % Normal 36.0-46.0 [facility] Comment on above: Order Comment: Speci men Type: BLOOD SPECIMENOrdering Facility: [facility] Address: [address] [place] [address] Performed By: #### 6 30-4 #### [facility] CLIA [id number] [address] [address] [place] Hemoglobin (Bld) [Mass/Vol] 14.0 g/dL Normal 11.5-15.5 [facility] Comment on above: Order Comment: Speci men Type: BLOOD SPECIMENOrdering Facility: [facility] Address: [address] [place] [address] Performed By: #### 6 30-4 #### [facility] CLIA [id number] [address] [address] [place] Immature granulocytes (Bld) [#/Vol] 0.03 10*3/uL Normal <0.10 [facility] Comment on above: Order Comment: Speci men Type: BLOOD SPECIMENOrdering Facility: [facility] Address: [address] [place] [address] Performed By: #### 6 30-4 #### [facility] CLIA [id number] [address] [address] [place] Immature granulocytes/100 WBC (Bld) 0.3 % Normal [facility] Comment on above: Order Comment: Speci men Type: BLOOD SPECIMENOrdering Facility: [facility] Address: [address] [place] [address] Performed By: #### 6 30-4 #### [facility] CLIA [id number] [address] [address] [place] Lymphocytes (Bld) [#/Vol] 2.91 10*3/uL Normal 1.00-4.00 [facility] Comment on above: Order Comment: Speci men Type: BLOOD SPECIMENOrdering Facility: [facility] Address: [address] [place] [address] Performed By: #### 6 30-4 #### [facility] CLIA [id number] [address] [address] [place] Lymphocytes/100 WBC (Bld) 29.1 % Normal [facility] Comment on above: Order Comment: Speci men Type: BLOOD SPECIMENOrdering Facility: [facility] Address: [address] [place] [address] Performed By: #### 6 30-4 #### [facility] CLIA [id number] [address] [address] [place] MCH (RBC) [Entitic mass] 31.0 pg Normal 26.0-34.0 [facility] Comment on above: Order Comment: Speci men Type: BLOOD SPECIMENOrdering Facility: [facility] Address: [address] [place] [address] Performed By: #### 6 30-4 #### [facility] CLIA [id number] [address] [address] [place] MCHC (RBC) [Mass/Vol] 32.6 g/dL Normal 30.5-36.0 [facility] Comment on above: Order Comment: Speci men Type: BLOOD SPECIMENOrdering Facility: [facility] Address: [address] [place] [address] Performed By: #### 6 30-4 #### [facility] CLIA [id number] [address] [address] [place] MCV (RBC) [Entitic vol] 95.1 fL Normal 80.0-100.0 [facility] Comment on above: Order Comment: Speci men Type: BLOOD SPECIMENOrdering Facility: [facility] Address: [address] [place] [address] Performed By: #### 6 30-4 #### [facility] CLIA [id number] [address] [address] [place] Monocytes (Bld) [#/Vol] 0.66 10*3/uL Normal <0.87 [facility] Comment on above: Order Comment: Speci men Type: BLOOD SPECIMENOrdering Facility: [facility] Address: [address] [place] [address] Performed By: #### 6 30-4 #### [facility] CLIA [id number] [address] [address] [place] Monocytes/100 WBC (Bld) 6.6 % Normal [facility] Comment on above: Order Comment: Speci men Type: BLOOD SPECIMENOrdering Facility: [facility] Address: [address] [place] [address] Performed By: #### 6 30-4 #### [facility] CLIA [id number] [address] [address] [place] Neutrophils (Bld) [#/Vol] 6.17 10*3/uL Normal 1.45-7.50 [facility] Comment on above: Order Comment: Speci men Type: BLOOD SPECIMENOrdering Facility: [facility] Address: [address] [place] [address] Performed By: #### 6 30-4 #### [facility] CLIA [id number] [address] [address] [place] Neutrophils/100 WBC (Bld) 61.6 % Normal [facility] Comment on above: Order Comment: Speci men Type: BLOOD SPECIMENOrdering Facility: [facility] Address: [address] [place] [address] Performed By: #### 6 30-4 #### [facility] CLIA [id number] [address] [address] [place] Nucleated RBC (Bld) [#/Vol] 10*3/uL Normal <0.01 [facility] Comment on above: Order Comment: Speci men Type: BLOOD SPECIMENOrdering Facility: [facility] Address: [address] [place] [address] Performed By: #### 6 30-4 #### [facility] CLIA [id number] [address] [address] [place] Nucleated RBC/100 WBC (Bld) [Ratio] 0.0 /100 WBC Normal [facility] Comment on above: Order Comment: Speci men Type: BLOOD SPECIMENOrdering Facility: [facility] Address: [address] [place] [address] Performed By: #### 6 30-4 #### [facility] CLIA [id number] [address] [address] [place] Platelet mean volume (Bld) [Entitic vol] 10.4 fL Normal 9.0-12.7 [facility] Comment on above: Order Comment: Speci men Type: BLOOD SPECIMENOrdering Facility: [facility] Address: [address] [place] [address] Performed By: #### 6 30-4 #### [facility] CLIA [id number] [address] [address] [place] Platelets (Bld) [#/Vol] 353 10*3/uL Normal 150-400 [facility] Comment on above: Order Comment: Speci men Type: BLOOD SPECIMENOrdering Facility: [facility] Address: [address] [place] [address] Performed By: #### 6 30-4 #### [facility] CLIA [id number] [address] [address] [place] RBC (Bld) [#/Vol] 4.52 10*6/uL Normal 3.90-5.20 [facility] Comment on above: Order Comment: Speci men Type: BLOOD SPECIMENOrdering Facility: [facility] Address: [address] [place] [address] Performed By: #### 6 30-4 #### [facility] CLIA [id number] [address] [address] [place] WBC (Bld) [#/Vol] 10.01 10*3/uL Normal 3.70-11.00 [facility] Comment on above: Order Comment: Speci men Type: BLOOD SPECIMENOrdering Facility: [facility] Address: [address] [place] [address] Performed By: #### 6 30-4 #### [facility] CLIA [id number] [address] [address] [place] CNOVon 05-28-2024 [facility] GEORGINA SEGURA ([id number]) 1945 F Date Time Provider Department 05/28/24 3:20 PM [facility] During your visit today, we recorded the following information about you: Pulse Blood pressure Weight Height 86/minute 150/81 88.5 kg 1.6 m Dinah Melgar MD 05/28/2024 4:00 PM Signed Patient presents with: Pain (Shoulder Pain): Right shoulder pain HPI: Patient presents today for office visit for right shoulder pain. Complains of right shoulder pain X 5 days. Daughter thinks it may be longer. No injury. Pain is constant. Refers to It really hurts Hx of rotator cuff repair same side No new neck pain. No injury. Pain is over the posterior shoulder. Used ice and heat. No numbness or tingling. She did see neurosurgery on 04/30. They are considering stopping her wearing her collar. Just had xrays done recently Did have a fall off of a chair at [facility] but no injuries since. Did not bother her after. Also having issues with worsening chronic edema. Is not moving around as much. Has been more sedentary. No chest pain with exertion. Drinking coffee etc again. She recently had some constipation She had a panic attack. Was short of breath and uncomfortable in trunk. Given mag citrate and enema Once she got her bowels better, she was fine. No redness or soreness in her legs. Not wearing compression stockings. The swelling goes down at night. MEDICATIONS: Current Outpatient Medications Medication Sig famotidine (PEPCID) 40 mg tablet Take 1 tablet by mouth once daily. ipratropium bromide (ATROVENT) 42 mcg (0.06 %) nasal spray Use 2 Sprays in the nose three times a day. mirabegron (MYRBETRIQ) 50 mg Tb24 Take 1 tablet by mouth once daily. pantoprazole DR (PROTONIX) 40 mg tablet Take 1 tablet by mouth once daily. levothyroxine (SYNTHROID) 50 mcg tablet TAKE 1 TABLET BY MOUTH ONCE DAILY AT 6 AM carvedilol (COREG) 6.25 mg tablet Take 1 tablet by mouth two times a day with meals. FLUoxetine (PROZAC) 20 mg capsule Take 1 capsule by mouth every afternoon. ezetimibe (ZETIA) 10 mg tablet Take 1 tablet by mouth once daily. albuterol HFA (PROVENTIL HFA, VENTOLIN HFA) 90 mcg/actuation inhaler Inhale 2 Puffs as instructed every 4 hours as needed. No current facility-administered medications for this visit. ALLERGIES: ALLERGIES Allergen Reactions Vioxx [Rofecoxib] Zocor [Simvastatin] Other: See Comments elevated CPK PAST MEDICAL HISTORY Diagnosis Date Arthritis of both hands 05/05/2016 Asthma 03/11/2010 Cervical disc disease 06/06/2013 Dementia without behavioral disturbance (HCC) 10/11/2022 Depression, recurrent ([facility]) 10/11/2022 Diarrhea Diffuse cystic mastopathy 11/03/2005 Elevated CK 04/26/2012 Esophageal reflux 11/03/2005 Fracture of skull ([facility]) 02/16/2023 Hyperlipidemia 04/26/2012 Hypothyroidism, acquired 08/04/2022 Impingement syndrome of right shoulder 10/11/2016 Irritable bowel syndrome with diarrhea 05/31/2018 Mild intermittent asthma, uncomplicated 11/23/2022 Neurogenic bladder, NOS Odontoid fracture ([facility]) 08/20/2023 Other and unspecified hyperlipidemia Other forms of migraine Overactive bladder 02/12/2009 Primary localized osteoarthrosis, lower leg Rotator cuff syndrome 02/12/2009 Situational depression 05/31/2018 Statin intolerance 07/03/2018 Supraspinatus tendonitis 12/06/2012 Tear of biceps tendon 05/18/2017 Unspecified sleep apnea Urinary incontinence 03/11/2010 PAST SURGICAL HISTORY Procedure Laterality Date ADENOIDECTOMY PRIMARY Adenoidectomy APPENDECTOMY COLONOSCOPY W/BIOPSY SINGLE/MULTIPLE 06/21/11 DILATION AND CURETTAGE DXAND/THER NONOBSTETRIC Dilation AND curettage LAPAROSCOPY SURG CHOLECYSTECTOMY 07-15-06 Cholecystectomy, lap PAST SURGICAL HISTORY OF N/A 2017 urinary implant device TONSILLECTOMY PRIMARY/SECONDARY Tonsillectomy VAGINAL HYSTERECTOMY UTERUS 250 GM/< Hysterectomy, vaginal FAMILY HISTORY Problem Relation Age of Onset other (dementia [Other]) Father Heart Father Tremor Father Heart Mother Heart Brother Tremor Daughter Tremor Son Social History Tobacco Use Smoking status: Never Smokeless tobacco: Never Substance Use Topics Alcohol use: No Drug use: No Reviewed current medications, allergies, past medical history, surgical history, family history and social history today. REVIEW OF SYSTEMS All other reviewed and negative other than HPI. VITALS: BP 150/81 Pulse 86 Ht 160 cm (5' 3) Wt 88.5 kg (195 lb) BMI 34.54 kg/m? Last 4 Encounter Wt Readings: Date: Wt: 05/28/2024 88.5 kg (195 lb) 04/30/2024 86.6 kg (191 lb) 02/01/2024 86.8 kg (191 lb 6.4 oz) 01/30/2024 86.8 kg (191 lb 6.4 oz) PHYSICAL EXAMINATION: General appearance: Well appearing, alert, in no acute distress, well-hydrated, well nourished. Skin: Skin color, texture, turgor n (more content not included)... [facility] GEORGINA SEGURA ([id number]) 1945 F Date Time Provider Department 05/28/24 DINAH MELGAR [facility] [place] During your visit today, we recorded the following information about you: Ary Garza LPN 05/28/2024 4:13 PM Signed Electronic PA rec'd for cyclobenzaprine. This was approved. Prior authorization approved Payer: [employer] [phone] Note from payer: CaseId:[id number];Statu s:Approved;Review Type:Prior Auth;Coverage Start Date:04/28/2024;Cover age End Date:05/28/2025; Approval Details Authorized from April 28, 2024 to May 28, 2025 Electronic appeal: Not supported View History Medication Being Authorized cyclobenzaprine (FLEXERIL) 5 mg tablet Take 1 tablet by mouth three times a day. Dispense: 20 tablet Refills: 0 Start: 05/28/2024 Class: Normal Diagnoses: Acute pain of right shoulder This order has been released to its destination. To be filled at: [facility] [address] [place] [id number] [facility] [phone] 1812 Allergies As of Date: 05/28/2024 Noted Allergy Reaction VIOXX (ROFECOXIB) 07/12/2005 16 - Unknown Comments: Has used nsaids ZOCOR (SIMVASTATIN) 03/18/2011 14 - Other: See Comments Comments: elevated CPK Date Reviewed: 05/28/2024 Reviewed by: Glenis Truong MA - Fully Assessed Reason for Visit: Insurance Authorization [[id number]] Prescriptions as of 05/28/2024 - diclofenac (VOLTAREN ARTHRITIS PAIN) 1 % topical gel Apply 2 g to affected area four times daily. - cyclobenzaprine (FLEXERIL) 5 mg tablet Take 1 tablet by mouth three times a day. - famotidine (PEPCID) 40 mg tablet Take 1 tablet by mouth once daily. - ipratropium bromide (ATROVENT) 42 mcg (0.06 %) nasal spray Use 2 Sprays in the nose three times a day. - mirabegron (MYRBETRIQ) 50 mg Tb24 Take 1 tablet by mouth once daily. - pantoprazole DR (PROTONIX) 40 mg tablet Take 1 tablet by mouth once daily. - levothyroxine (SYNTHROID) 50 mcg tablet TAKE 1 TABLET BY MOUTH ONCE DAILY AT 6 AM - carvedilol (COREG) 6.25 mg tablet Take 1 tablet by mouth two times a day with meals. - FLUoxetine (PROZAC) 20 mg capsule Take 1 capsule by mouth every afternoon. - ezetimibe (ZETIA) 10 mg tablet Take 1 tablet by mouth once daily. - albuterol HFA (PROVENTIL HFA, VENTOLIN HFA) 90 mcg/actuation inhaler Inhale 2 Puffs as instructed every 4 hours as needed. Meds Comments as of 09/16/2023: Unsure of medications recent change Problem List As Of Date 05/28/2024 Noted Resolved Unspecified sleep apnea [G47.30] MIGRAINE NEC [346.8] LOC PRIM OSTEOART-L/LEG [M17.10] ESOPHAGEAL REFLUX [K21.9] 11/03/2005 DIFFUS CYSTIC MASTOPATHY [N60.19] 11/03/2005 ALLERGIC RHINITIS NOS [J30.9] 09/30/2007 Rotator cuff syndrome [M75.100] 02/12/2009 04/10/2014 Overactive bladder [N32.81] 02/12/2009 Asthma [J45.909] 03/11/2010 Diarrhea [R19.7] 06/21/2011 04/10/2014 Hyperlipidemia [E78.5] 04/26/2012 04/10/2014 Elevated CK [R74.8] 04/26/2012 04/10/2014 Supraspinatus tendonitis [M75.90] 12/06/2012 04/10/2014 Impingement syndrome of right shoulder [M75.41] 06/06/2013 04/10/2014 Cervical disc disease [M50.90] 06/06/2013 Right rotator cuff tear [M75.101] 06/28/2013 04/10/2014 Mixed incontinence [N39.46] 04/23/2015 Rotator cuff strain [S46.019A] 04/23/2015 05/18/2017 Hyperlipidemia LDL goal <100 [E78.5] 11/12/2015 Arthritis of both hands [M19.041, M19.042] 05/05/2016 Impingement syndrome of right shoulder [M75.41] 10/11/2016 05/18/2017 Tear of biceps tendon [S46.219A] 05/18/2017 02/16/2023 Irritable bowel syndrome with diarrhea [K58.0] 05/31/2018 Situational depression [F43.21] 05/31/2018 02/16/2023 Statin intolerance [Z78.9] 07/03/2018 OPENED IN ERROR 10/13/2018 02/03/2022 Special screening examination for viral disease*02/03/2022 02/03/2022 Hypothyroidism, acquired [E03.9] 08/04/2022 Dementia without behavioral disturbance (HCC) [*10/11/2022 02/16/2023 Depression, recurrent (HCC) [F33.9] 10/11/2022 Imbalance [R26.89] 10/11/2022 02/16/2023 Balance disorder [R26.89] 11/15/2022 Falls frequently [R29.6] 11/15/2022 Numbness and tingling of both feet [R20.0, R20.*11/15/2022 Cough [R05.9] 11/23/2022 02/16/2023 Mild intermittent asthma, uncomplicated [J45.20]11/23/2022 Acute pain of left shoulder [M25.512] 11/29/2022 02/16/2023 Closed head injury [S09.90XA] 11/18/2021 01/30/2024 Diagnosed: 02/16/2023 Contusion of forehead [S00.83XA] 11/18/2021 02/16/2023 Diagnosed: 02/16/2023 Fall [W19.XXXA] 02/16/2023 02/16/2023 Diagnosed: 02/16/2023 Fracture of skull (HCC) [S02.91XA] 02/16/2023 02/16/2023 Diagnosed: 02/16/2023 Laceration [ONY6845] 06/22/2022 10/24/2023 Diagnosed: 02/16/2023 Arthritis [M19.90] 02/16/2023 Diagnosed: 02/16/2023 History of skull fracture [Z87.81] 02/16/2023 [place] (acute kidney injury) (HCC) [N17.9] 08/20/2023 0 (more content not included)... Normal [facility] Comprehensive metabolic 2000 panelon 05-28-2024 Albumin [Mass/Vol] 4.8 g/dL Normal 3.9-4.9 [facility] Comment on above: Order Comment: Speci men Type: BLOOD SPECIMENOrdering Facility: [facility] Address: [address] [place] [address] Performed By: #### 6 30-4 #### [facility] CLIA [id number] [address] [place] [address] [place] ALP [Catalytic activity/Vol] 94 U/L Normal 34-123 [facility] Comment on above: Order Comment: Speci men Type: BLOOD SPECIMENOrdering Facility: [facility] Address: [address] [place] [address] Performed By: #### 6 30-4 #### [facility] CLIA [id number] [address] [place] [address] [place] ALT [Catalytic activity/Vol] 13 U/L Normal 7-38 [facility] Comment on above: Order Comment: Speci men Type: BLOOD SPECIMENOrdering Facility: [facility] Address: [address] [place] [address] Performed By: #### 6 30-4 #### [facility] CLIA [id number] [address] [place] [address] [place] Anion gap [Moles/Vol] 13 mmol/L Normal 8-15 [facility] Comment on above: Order Comment: Speci men Type: BLOOD SPECIMENOrdering Facility: [facility] Address: [address] [place] [address] Performed By: #### 6 30-4 #### [facility] CLIA [id number] [address] [place] [address] [place] AST [Catalytic activity/Vol] 19 U/L Normal 13-35 [facility] Comment on above: Order Comment: Speci men Type: BLOOD SPECIMENOrdering Facility: [facility] Address: [address] [place] [address] Performed By: #### 6 30-4 #### [facility] CLIA [id number] [address] [place] [address] [place] Bilirubin [Mass/Vol] mg/dL Low 0.2-1.3 [facility] Comment on above: Order Comment: Speci men Type: BLOOD SPECIMENOrdering Facility: [facility] Address: [address] [place] [address] Performed By: #### 6 30-4 #### [facility] CLIA [id number] [address] [address] [place] Calcium [Mass/Vol] 9.7 mg/dL Normal 8.5-10.2 [facility] Comment on above: Order Comment: Speci men Type: BLOOD SPECIMENOrdering Facility: [facility] Address: [address] [place] [address] Performed By: #### 6 30-4 #### [facility] CLIA [id number] [address] [place] [address] [place] Chloride [Moles/Vol] 102 mmol/L Normal 98-107 [facility] Comment on above: Order Comment: Speci men Type: BLOOD SPECIMENOrdering Facility: [facility] Address: [address] [place] [address] Performed By: #### 6 30-4 #### [facility] CLIA [id number] [address] [address] [place] CO2 [Moles/Vol] 24 mmol/L Normal 22-30 [facility] Comment on above: Order Comment: Speci men Type: BLOOD SPECIMENOrdering Facility: [facility] Address: [address] [place] [address] Performed By: #### 6 30-4 #### [facility] CLIA [id number] [address] [address] [place] Creatinine [Mass/Vol] 1.12 mg/dL High 0.58-0.96 [facility] Comment on above: Order Comment: Speci men Type: BLOOD SPECIMENOrdering Facility: [facility] Address: [address] [place] [address] Performed By: #### 6 30-4 #### [facility] CLIA [id number] [address] [address] [place] Creatinine and Glomerular filtration rate.predicted panel (S/P/Bld) 50 mL/min/1.73m??? Low >=60 [facility] Comment on above: Order Comment: Speci men Type: BLOOD SPECIMENOrdering Facility: [facility] Address: [address] [place] [address] Result Comment: Lindsey mated Glomerular Filtration Rate (eGFR) is calculated using the 2020 CKD-EPI creatinine equation. This equation utilizes serum creatinine, sex, and age as parameters. The creatinine assay has traceable calibration to isotope dilution-mass spectrometry. Refer to KDIGO guidelines for clinical interpretation. In patients with unstable renal function, e.g. those with acute kidney injury, the eGFR may not accurately reflect actual GFR. Performed By: #### 6 30-4 #### [facility] CLIA [id number] [address] [address] [place] Glucose [Mass/Vol] 111 mg/dL High 74-99 [facility] Comment on above: Order Comment: Speci men Type: BLOOD SPECIMENOrdering Facility: [facility] Address: [address] [place] [address] Result Comment: The [place] Diabetes Association (ADA) provides guidance for cutoff values for fasting glucose and random glucose. The ADA defines fasting as no caloric intake for at least 8 hours. Fasting plasma glucose results between 100 to 125 mg/dL indicate increased risk for diabetes (prediabetes). Fasting plasma glucose results greater than or equal to 126 mg/dL meet the criteria for diagnosis of diabetes. In the absence of unequivocal hyperglycemia, results should be confirmed by repeat testing. In a patient with classic symptoms of hyperglycemia or hyperglycemic crisis, random plasma glucose results greater than or equal to 200 mg/dL meet the criteria for diagnosis of diabetes. Reference: Standards of Medical Care in Diabetes 2016, [place] [employer]. Diabetes Care. 2016.39(Suppl 1). Performed By: #### 6 30-4 #### [facility] CLIA [id number] [address] [address] [place] Potassium [Moles/Vol] 4.3 mmol/L Normal 3.7-5.1 [facility] Comment on above: Order Comment: Speci men Type: BLOOD SPECIMENOrdering Facility: [facility] Address: [address] [place] [address] Performed By: #### 6 30-4 #### [facility] CLIA [id number] [address] [address] [place] Protein [Mass/Vol] 7.0 g/dL Normal 6.3-8.0 [facility] Comment on above: Order Comment: Speci men Type: BLOOD SPECIMENOrdering Facility: [facility] Address: [address] [place] [address] Performed By: #### 6 30-4 #### [facility] CLIA [id number] [address] [address] [place] Sodium [Moles/Vol] 139 mmol/L Normal 136-144 [facility] Comment on above: Order Comment: Speci men Type: BLOOD SPECIMENOrdering Facility: [facility] Address: [address] [place] [address] Performed By: #### 6 30-4 #### [facility] CLIA [id number] [address] [address] [place] Urea nitrogen [Mass/Vol] 26 mg/dL High 7-21 [facility] Comment on above: Order Comment: Speci men Type: BLOOD SPECIMENOrdering Facility: [facility] Address: [address] [place] [address] Performed By: #### 6 30-4 #### [facility] CLIA [id number] [address] [address] [place] TSH SerPl-aCncon 05-28-2024 TSH Qn 2.170 m[IU]/L Normal 0.270-4.200 [facility] Comment on above: Order Comment: Speci men Type: BLOOD SPECIMENOrdering Facility: [facility] Address: [address] [place] [address] Performed By: #### 6 30-4 #### [facility] CLIA [id number] [address] [place] [address] [place] XR SHLDR >/=3V AP/PRETTY AP/OTH R RTon 05-28-2024 XR SHLDR >/=3V AP/PRETTY AP/OTHR RT * * *Final Report* * * DATE OF EXAM: May 28 2024 4:09PM [id number] - XR SHLDR >/=3V AP/PRETTY AP/OTHR RT / PROCEDURE REASON: Acute pain of right shoulder * * * * Physician Interpretation * * * * EXAM TITLE: XR SHLDR >/=3V AP/PRETTY AP/OTHR RT EXAM DATE/TIME: 05/28/2024 4:09 PM COMPARISON: None. CLINICAL INDICATION/HISTORY: Shoulder pain TECHNIQUE: AP, true AP and axial views of the right shoulder are presented FINDINGS: No acute fractures or subluxations are noted. The acromioclavicular and glenohumeral joint spaces are maintained however mild osteophyte formation is present. Decreased acromiohumeral interval is noted. The mineralization of the bones is normal. There is no significant soft tissue swelling. IMPRESSION: Findings are suggestive of degenerative changes in the right shoulder and rotator cuff arthroplasty. 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DIEGO Transcribe Date/Time: May 30 2024 3:07P Dictated by : SUSANA HERNANDEZ MD This examination was interpreted and the report reviewed and electronically signed by: SUSANA HERNANDEZ MD on May 30 2024 3:09PM EST [id number] Normal [facility] Pulmonary Visit Reporton Pulmonary Visit Report [facility] of [address] [place] [address] OFFICE VISIT Date of Service: 05/07/24 MR#: [id number] Acct: [id number] Name: GEORGINA SEGURA Rep #: [id number] : 1945 Provider: ASIF Milligan Age/Sex: 78/F [place] [facility] [place] Status: Signed Assessment and Plan Assessment and Plan (1) Sleep apnea: Status: Chronic Qualifiers: Sleep apnea type: obstructive Qualified Code(s): G47.33 - Obstructive sleep apnea (adult) (pediatric) Comment: AHI is 60.9 Plan: She is using and benefiting from Pap therapy. No indication for titration study at this time. Contact the office for any new or worsening symptoms in the meantime. Follow-up in 6 months. She has been encouraged to call the office with any difficulty in the meantime. Plan Details Follow Up: 6 Months ([facility]) HPI 3 M FU Chief Complaint: Sleep apnea HPI Comments Details: This patient presents to the office today for follow-up of her obstructive sleep apnea. She is ambulatory, currently on room air and accompanied today by her daughter. She has not recently been seen in the ED or urgent care for any respiratory illness. She has not required any antibiotics or prednisone for any breathing problems. She reports some shortness of breath on exertion. Currently she has an occasional dry cough. She denies any sputum production or hemoptysis. She has occasional wheezing but denies any chest pain, chest tightness or palpitations. She has not had any fever, chills or body aches. The patient reports that now that she is using a nasal interface that she is feeling rested and refreshed with the use of her Pap device. She has no longer feeling claustrophobic. She wakes up easily, is not requiring naps. She denies any difficulty with dry mouth or mask leaks. She is not having morning headaches. Compliance report for the past 30 days shows 100% compliance and average use of 8 hours and 9 minutes per night. Current setting is CPAP 8 cmH2O with a residual AHI of 5.0 events per hour. Leaks do not appear to be a problem. Intake Vital Signs 01/30/24 07:51 05/07/24 07:46 Height 5 ft 3 in 5 ft 3 in Weight: 190 lb 192 lb BMI 33.6 34.0 BP 127/74 H 108/67 Blood Pressure Location Rt brachial Lt brachial Position Sitting Sitting Respiration 20 H Pulse 77 73 Pulse Source Monitor Monitor Temp 97.2 F L 97.0 F L Temperature Source Temporal Artery Temporal Artery Pulse Oximetry (%) 93 93 Oxygen Delivery Method room air room air Intake Visit Reasons: 3 M FU Transportation Superintendent Required: No DME Vendor: pap- [employer] Accompanied by: Daughter Is patient in pain?: No Allergies rofecoxib (From Vioxx) Allergy (Verified 05/07/24 13:20) Unknown Medications ???Medication ???Instructions ???Recorded ???Confirmed ???Type famotidine 40 mg tablet 40 mg PO QHS GERD 06/11/22 05/07/24 History mirabegron 50 mg tablet,extended 50 mg PO DAILY OAB 06/11/22 05/07/24 History release 24 hr (Myrbetriq) pantoprazole 40 mg granules 40 mg PO DAILY GERD 06/11/22 05/07/24 History delayed-release for susp in packet ezetimibe 10 mg tablet 10 mg PO DAILY cholestorol 03/28/23 05/07/24 History albuterol sulfate 90 mcg/actuation 2 inh inhalation Q4H PRN 08/23/23 05/07/24 History aerosol inhaler SOB,Wheezing acetaminophen 500 mg tablet 1,000 mg (2 x 500 mg) PO Q8 #180 09/07/23 05/07/24 Rx tabs carvedilol 6.25 mg tablet 6.25 mg PO BIDCM #60 tabs 09/07/23 05/07/24 Rx fluoxetine 20 mg capsule (Prozac) 20 mg PO DAILY #30 caps 09/07/23 05/07/24 Rx ipratropium bromide 42 mcg (0.06 2 spray NASAL TID #1 BOTTLE 09/07/23 05/07/24 Rx %) nasal spray levothyroxine 50 mcg tablet 50 mcg PO DAILY@0600 #30 tabs 09/07/23 05/07/24 Rx polyethylene glycol 3350 17 17 g PO BID #850 grams 09/07/23 05/07/24 Rx gram/dose oral powder (Miralax) Have you fallen in the past year?: Yes PFSH Medical History NAYA (obstructive sleep apnea) Noncompliance with CPAP treatment Venous insufficiency (chronic) (peripheral) Dementia Dehydration Neurogenic bladder Frequent falls Glucose intolerance (impaired glucose tolerance) Loss of hearing Post-menopausal Ambulates with cane Arthritis Back pain Injury of head and neck Asthma CPAP (continuous positive airway pressure) dependence History of pain when walking Wears glasses Depression Overactive bladder High cholesterol Easy bruising Non-smoker PONV (postoperative nausea and vomiting) GERD (gastroesophageal reflux disease) Hypothyroid Surgical History Hx of surgical biopsy History of bladder surgery History of partial hysterectomy History of append (more content not included)... [facility] ([facility]) GEORGINA SEGURA ([id number]) 1945 F Date Time Provider Department 04/30/24 8:30 AM GUILLAUME DELGADO [facility] During your visit today, we recorded the following information about you: Pulse Blood pressure Weight Height 78/minute 136/76 86.6 kg 1.6 m Guillaume Delgado MD, PhD 04/30/2024 9:32 AM Signed NEUROSURGERY FOLLOW UP OFFICE NOTE Guillaume Delgado MD, PhD Date of visit: April 30, 2024 Patient Name: Ms.Betty Ricky Segura Date of : 1945 Current Age: [age] year old Sex: female MRN/E# [id number] Last Office Visit: 12/19/2023 Chief Complaint: Patient presents with: Established Patient SUBJECTIVE: HPI The patient presented to [facility] ED on 08/20/2023 as a transfer from an outside hospital follow a fall. She noted she hit her head on the wall. Outside imaging demonstrated a type 2 odontoid fracture (acute vs chronic). She reported multiple falls recently and in the past. She noted 2-3 weeks prior, she fell and endorsed neck pain but did not seek medical attention. No surgical interventions were required at that time. She was to wear a [place] collar at all times. She was to obtain a bone stimulator outpatient. She was to follow up in 1 month with repeat imaging. At her last visit on 09/16/2023 she stated she had been doing okay since discharge. She reported midline posterior cervical pain. She denied any radicular symptoms. Denied paresthesia. Denied any weakness. Denied any further falls, loss of bowel or bladder. She had since been using a cane for extra support. She was complaint with her cervical collar. She had been using ultram with relief. She was receiving home therapy. She did not receive any information about her bone growth stimulator. There was significant bone loss at the neck of the odontoid process that was caused to believe that she likely had a longstanding fracture in that location. It was difficult to tell thought it may be acute. Her xray's did not have any concerns with respect to odontoid displacement or other issues. She was interested in the bone growth stimulator. It was recommended that she follow up in 3 months with repeat imaging. At her last visit on 12/19/2023 she stated she had continual posterior cervical pain. She denied any radicular symptoms. Patient stated over the last week or so she had noticed left hand numbness. She reported using Tylenol as needed for the pain. She denied dexterity issues. She did not get her x-rays prior to her visit. She denied any recent falls, numbness, tingling or bowel/ bladder incontinence. Patient using a cane for assistance with ambulation. Patient still had her [place] collar on and stated she wanted it off. She noted she continued with her bone growth stimulator. There was concern for a new upper motor neuron finding that was not perviously documented. She was to obtain a CT myelogram of the cervical spine as she could not obtain an MRI due to her bladder stimulator. She was to follow up once completed. At her last visit on 02/01/2024 she stated she continued with very little cervical pain and headaches, but stated the headaches were unrelated to her cervical spine. Denied any radicular symptoms. Continued with left hand numbness. She continued to be off balance and unsteady with use of a cane, but reported this was improving. Denied any falls, loss of bowel or bladder. She had been complaint with her cervical collar. Noted she continued with her bone growth stimulator. 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 This would almost completely remove her ability to move her neck. The goal of surgery be to arrest neurologic progression and not necessarily to achieve neurologic improvement. In this context I think that continuing to wear the cervical collar is the less morbid of the [address] myelogram does not show evidence of healing of her C1-2 fracture we did articulate a plan to continue use of her bone growth stimulator given that there is little downside to doing so. It was recommended that at that time, she continue with conservative treatment and to follow up in 3 months, prompting her visit today. Today she states she has been doing well since her last visit. She denies any cervical pain or headaches. Denies any radicular pain. Denies paresthesia. Notes taking tylenol as needed. Reports a fall the day before Thanks where she slid out of a chair onto her bottom. Denies any injuries. Denies feeling off balance and unsteady, but continues with use of cane. She has been compliant with her cervical collar at all times and wears her bone growth stimulator daily. She presents for evaluation and plan of care. Symptoms: use of a cane. (more content not included)... Normal [facility] XR CERV 5V AP/LAT/FLX/EXT/OD ONon 04-30-2024 XR CERV 5V AP/LAT/FLX/EXT/ODON * * *Final Report* * * DATE OF EXAM: Apr 30 2024 9:01AM [id number] - XR CERV 5V AP/LAT/FLX/EXT/ODON / PROCEDURE REASON: Closed odontoid fracture, sequela * * * * Physician Interpretation * * * * EXAMINATION / TECHNIQUE: XR CERV 5V AP/LAT/FLX/EXT/ODON HISTORY: closed odontoid fracture Closed odontoid fracture, sequela . COMPARISON: CT cervical spine 01/04/2024 RESULT: Nonunion of type II odontoid fracture is nondisplaced on the neutral and flexion views and demonstrates minimal 2 mm of posterior displacement of the upper fragment on the extension view. No acute cervical compression deformity identified. Grade 1 anterolisthesis C3-4 and C4-5 on the neutral view is unchanged on the flexion/extension views. Atlantodental interval is not widened. Disc space narrowing, most pronounced at C5-6 and C6-7. Multilevel facet arthrosis. Scattered osteophytes. Atherosclerotic calcifications of the cervical carotid arteries.. Counting reference: Craniocervical junction. Anatomic Variants: None. IMPRESSION: Nonunion of type II odontoid fracture with minimal posterior displacement of the upper fragment on the extension view and no displacement on the flexion and neutral views.. 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PSCB Transcribe Date/Time: May 05 2024 5:08P Dictated by : MARGARITA VÁSQUEZ MD This examination was interpreted and the report reviewed and electronically signed by: MARGARITA VÁSQUEZ MD on May 05 2024 5:13PM EST [id number] N Normal [facility] CNOVon 04-13-2024 CNOV Office Visit (PODIWS ) GEORGINA SEGURA ([id number]) 1945 F Date Time Provider Department 04/13/24 3:20 PM TON LOONEY During your visit today, we recorded the following information about you: Ton Looney 04/13/2024 3:35 PM Signed Subjective: Patient presents to clinic c/o painful toenails. They state that the nails are especially painful with shoe gear and pressure. Patient states that nails b/l hallux are painful. No other pedal complaints at this time. Patient states no change in medications or medical history since last visit. Objective: Patient presents to clinic ambulating in [facility] Vasc: DP pulses palpable bilateral. Posterior tibial pulses nonpalpable b/l. CFT is less than 5 seconds bilateral. Skin temperature is warm to cool proximal to distal bilateral. There is moderate edema or varicosities noted. Neuro: Protective sensation is intact to the foot and toes when tested with the 5.07 SWM bilateral. Vibratory sensation is absent at the hallux IPJ bilateral. The hallux is downgoing bilateral. Derm: Nails 1-5 b/l are painful, discolored-yellow, thick, crumbly, dystrophic and with subungal debris. Skin is of normal turgor, texture and hair growth is absent bilateral. Skin is ruborous. Hair growth is absent. Ortho: Muscle strength is 5/5 for all pedal groups tested. Ankle joint DF is decreased with the knee extended with no pain or crepitus noted. 1st MPJ ROM is decreased bilateral. Assessment: (B35.1) Onychomycosis (primary encounter diagnosis) (M79.675) Pain in toe of left foot (M79.674) Pain in toe of right foot Plan: Patient was seen and evaluated. Nails 1-5 bilateral were debrided in length and thickness. Small bleed to left 2nd toe and right hallux. Band aide applied. Patient is to RTC in 3-4 months. Ton Looney DPM Referring Provider: TON LOONEY [[id number]] Allergies As of Date: 04/13/2024 Noted Allergy Reaction VIOXX (ROFECOXIB) 07/12/2005 ZOCOR (SIMVASTATIN) 03/18/2011 14 - Other: See Comments Comments: elevated CPK Date Reviewed: 04/13/2024 Reviewed by: Jessica Osborn MA - Fully Assessed Reason for Visit: Follow Up [171] Cmt: Nail Care Follow Up [171] Cmt: Nail Care Primary Visit Diagnosis:Onychomycos is [B35.1] Other Visit Diagnoses:Pain in toe of left foot [M79.675] Pain in toe of right foot [M79.674] Prescriptions as of 04/13/2024 - famotidine (PEPCID) 40 mg tablet Take 1 tablet by mouth once daily. - ipratropium bromide (ATROVENT) 42 mcg (0.06 %) nasal spray Use 2 Sprays in the nose three times a day. - mirabegron (MYRBETRIQ) 50 mg Tb24 Take 1 tablet by mouth once daily. - pantoprazole DR (PROTONIX) 40 mg tablet Take 1 tablet by mouth once daily. - levothyroxine (SYNTHROID) 50 mcg tablet TAKE 1 TABLET BY MOUTH ONCE DAILY AT 6 AM - carvedilol (COREG) 6.25 mg tablet Take 1 tablet by mouth two times a day with meals. - FLUoxetine (PROZAC) 20 mg capsule Take 1 capsule by mouth every afternoon. - ezetimibe (ZETIA) 10 mg tablet Take 1 tablet by mouth once daily. - albuterol HFA (PROVENTIL HFA, VENTOLIN HFA) 90 mcg/actuation inhaler Inhale 2 Puffs as instructed every 4 hours as needed. Meds Comments as of 09/16/2023: Unsure of medications recent change Problem List As Of Date 04/13/2024 Noted Resolved Unspecified sleep apnea [G47.30] MIGRAINE NEC [346.8] LOC PRIM OSTEOART-L/LEG [M17.10] ESOPHAGEAL REFLUX [K21.9] 11/03/2005 DIFFUS CYSTIC MASTOPATHY [N60.19] 11/03/2005 ALLERGIC RHINITIS NOS [J30.9] 09/30/2007 Rotator cuff syndrome [M75.100] 02/12/2009 04/10/2014 Overactive bladder [N32.81] 02/12/2009 Asthma [J45.909] 03/11/2010 Diarrhea [R19.7] 06/21/2011 04/10/2014 Hyperlipidemia [E78.5] 04/26/2012 04/10/2014 Elevated CK [R74.8] 04/26/2012 04/10/2014 Supraspinatus tendonitis [M75.90] 12/06/2012 04/10/2014 Impingement syndrome of right shoulder [M75.41] 06/06/2013 04/10/2014 Cervical disc disease [M50.90] 06/06/2013 Right rotator cuff tear [M75.101] 06/28/2013 04/10/2014 Mixed incontinence [N39.46] 04/23/2015 Rotator cuff strain [S46.019A] 04/23/2015 05/18/2017 Hyperlipidemia LDL goal <100 [E78.5] 11/12/2015 Arthritis of both hands [M19.041, M19.042] 05/05/2016 Impingement syndrome of right shoulder [M75.41] 10/11/2016 05/18/2017 Tear of biceps tendon [S46.219A] 05/18/2017 02/16/2023 Irritable bowel syndrome with diarrhea [K58.0] 05/31/2018 Situational depression [F43.21] 05/31/2018 02/16/2023 Statin intolerance [Z78.9] 07/03/2018 OPENED IN ERROR 10/13/2018 02/03/2022 Special screening examination for viral disease*02/03/2022 02/03/2022 Hypothyroidism, acquired [E03.9] 08/04/2022 Dementia without behavioral disturbance (HCC) [*10/11/2022 02/16/2023 Depression, recurrent (HCC) [F33.9] 10/11/2022 Imbalance [R26.89] 10/11/2022 02/16/2023 Balance disorder [R26.89] 11/15/2022 Falls frequently [R29 (more content not included)... Normal [facility] BD DXA - AXIAL SKELETONon BD DXA - AXIAL SKELETON * * *Final Repor t* * * DATE OF EXAM: Mar 26 2024 11:40AM WRB 0804 - BD DXA - AXIAL SKELETON / PROCEDURE REASON: multiple diagnoses * * * * Physician Interpretation * * * * EXAMINATION: DXA BONE DENSITOMETRY BD DXA - AXIAL SKELETON, BD DXA TRABECLR BONE SCORE (TBS) PATIENT DEMOGRAPHICS: Age: 78 years, Gender: Female SCANNER INFORMATION: DXA Model: [place] - [employer] C [id number] Date Scanned: 03/26/2024 11:40 AM CLINICAL HISTORY: DIAGNOSTIC History of skull fracture Disorder of bone Closed odontoid fracture with routine healing Other osteoporosis. RISK FACTORS FOR OSTEOPOROSIS AND ASSOCIATED FRACTURES REPORTED BY THIS PATIENT: Please refer to Bone Health Questionnaire in the EMR CURRENT THERAPY: Please refer to Bone Health Questionnaire in the EMR TECHNICAL LIMITATIONS: Degenerative disease of the spine RESULTS: Lumbar spine (L1, L2, L3, L4): 1.041 g/cm2, T-score -0.1, Z-score 2.7 Lumbar spine: 2020: 1.058 g/cm2 No statistically significant change Right Femoral Neck: 0.597 g/cm2, T-score -2.3, Z-score 0.1 Right Femoral Neck: 2009: 0.705 g/cm2 Statistically significant decrease Right Total Hip: 0.794 g/cm2, T-score -1.2, Z-score 0.9 Right Total Hip: 2009: 0.967 g/cm2 Statistically significant decrease Left Femoral Neck: 0.573 g/cm2, T-score -2.5, Z-score -0.1 Left Femoral Neck: 2020: 0.597 g/cm2 No statistically significant change Left Total Hip: 0.776 g/cm2, T-score -1.4, Z-score 0.7 Left Total Hip: 2020: 0.858 g/cm2 Statistically significant decrease CHANGE IS STATISTICALLY SIGNIFICANT IN THE SPINE OR HIP IF GREATER THAN OR EQUAL TO 0.04 g/cm2 VERTEBRAL FRACTURE ASSESSMENT Not performed. TRABECULAR BONE ASSESSMENT TBS score: 1.117 Bone micro-architecture: Degraded (< or = 1.230) IMPRESSION: THE LOWEST T-SCORE IS -2.5 IN THE LEFT HIP 1) DIAGNOSIS (based on BMD alone): OSTEOPOROSIS Caution: Medical conditions other than osteoporosis may cause low bone density, such as osteomalacia or renal osteodystrophy. Clinical correlation is necessary. 2) FRACTURE RISK (Based on TBS adjusted FRAX): 10-year absolute fracture risk: - major osteoporotic fracture = 24 % - hip fracture = 6.6 % - A diagnosis of Osteoporosis, a 10 year probability of hip fracture greater than or equal to 3% or a 10 year probability of any major osteoporosis-related fracture greater than or equal to 20% should be considered for treatment. - DXA scanner generated FRAX calculations may slightly differ from online FRAX calculations due to differences in software versions. - All recommendations and calculations are to be considered as guidelines and should not replace sound clinical judgement - Caution: Fracture risk may be increased independent of BMD in patients with corticosteroid use, age greater than 65 years, or a history of prior fragility fracture. RECOMMENDATIONS: Follow-up in 2 years or as clinically indicated. Patients that are taking corticosteroids, are transplant recipients or have hyperparathyroidism should have annual follow-up. Follow-up scans should always be done on the same machine for accurate comparison. FOR MORE INFORMATION ABOUT DIAGNOSIS AND TREATMENT: [facility]oporosis and Metabolic Bone Disease:? www.ccf.org/arthritis /osteo National Osteoporosis Foundation:? www.nof.org International Society of Clinical Densitometry www.iscd.org 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DIEGO Transcribe Date/Time: Mar 26 2024 4:10P Dictated by : SONNY PICKENS MD This examination was interpreted and the report reviewed and electronically signed by: SONNY PCIKENS MD on Mar 26 2024 4:13PM EST [id number] N -2.5 Normal [facility] BD DXA TRABECLR BONE SCORE ( TBS)on 03-26-2024 BD DXA TRABECLR BONE SCORE (TBS) * * *Final Report* * * DATE OF EXAM: Mar 26 2024 11:40AM B 0801 - BD DXA TRABECLR BONE SCORE (TBS) / PROCEDURE REASON: multiple diagnoses * * * * Physician Interpretation * * * * EXAMINATION: DXA BONE DENSITOMETRY BD DXA - AXIAL SKELETON, BD DXA TRABECLR BONE SCORE (TBS) PATIENT DEMOGRAPHICS: Age: 78 years, Gender: Female SCANNER INFORMATION: DXA Model: [employer] - [employer] C [id number] Date Scanned: 03/26/2024 11:40 AM CLINICAL HISTORY: DIAGNOSTIC History of skull fracture Disorder of bone Closed odontoid fracture with routine healing Other osteoporosis. RISK FACTORS FOR OSTEOPOROSIS AND ASSOCIATED FRACTURES REPORTED BY THIS PATIENT: Please refer to Bone Health Questionnaire in the EMR CURRENT THERAPY: Please refer to Bone Health Questionnaire in the EMR TECHNICAL LIMITATIONS: Degenerative disease of the spine RESULTS: Lumbar spine (L1, L2, L3, L4): 1.041 g/cm2, T-score -0.1, Z-score 2.7 Lumbar spine: 2020: 1.058 g/cm2 No statistically significant change Right Femoral Neck: 0.597 g/cm2, T-score -2.3, Z-score 0.1 Right Femoral Neck: 2009: 0.705 g/cm2 Statistically significant decrease Right Total Hip: 0.794 g/cm2, T-score -1.2, Z-score 0.9 Right Total Hip: 2009: 0.967 g/cm2 Statistically significant decrease Left Femoral Neck: 0.573 g/cm2, T-score -2.5, Z-score -0.1 Left Femoral Neck: 2020: 0.597 g/cm2 No statistically significant change Left Total Hip: 0.776 g/cm2, T-score -1.4, Z-score 0.7 Left Total Hip: 2020: 0.858 g/cm2 Statistically significant decrease CHANGE IS STATISTICALLY SIGNIFICANT IN THE SPINE OR HIP IF GREATER THAN OR EQUAL TO 0.04 g/cm2 VERTEBRAL FRACTURE ASSESSMENT Not performed. TRABECULAR BONE ASSESSMENT TBS score: 1.117 Bone micro-architecture: Degraded (< or = 1.230) IMPRESSION: THE LOWEST T-SCORE IS -2.5 IN THE LEFT HIP 1) DIAGNOSIS (based on BMD alone): OSTEOPOROSIS Caution: Medical conditions other than osteoporosis may cause low bone density, such as osteomalacia or renal osteodystrophy. Clinical correlation is necessary. 2) FRACTURE RISK (Based on TBS adjusted FRAX): 10-year absolute fracture risk: - major osteoporotic fracture = 24 % - hip fracture = 6.6 % - A diagnosis of Osteoporosis, a 10 year probability of hip fracture greater than or equal to 3% or a 10 year probability of any major osteoporosis-related fracture greater than or equal to 20% should be considered for treatment. - DXA scanner generated FRAX calculations may slightly differ from online FRAX calculations due to differences in software versions. - All recommendations and calculations are to be considered as guidelines and should not replace sound clinical judgement - Caution: Fracture risk may be increased independent of BMD in patients with corticosteroid use, age greater than 65 years, or a history of prior fragility fracture. RECOMMENDATIONS: Follow-up in 2 years or as clinically indicated. Patients that are taking corticosteroids, are transplant recipients or have hyperparathyroidism should have annual follow-up. Follow-up scans should always be done on the same machine for accurate comparison. FOR MORE INFORMATION ABOUT DIAGNOSIS AND TREATMENT: [facility] Osteoporosis and Metabolic Bone Disease:? www.ccf.org/arthritis /osteo National Osteoporosis Foundation:? www.nof.org International Society of Clinical Densitometry www.iscd.org 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DIEGO Transcribe Date/Time: Mar 26 2024 4:10P Dictated by : SONNY PICKENS MD This examination was interpreted and the report reviewed and electronically signed by: SONNY PICKENS MD on Mar 26 2024 4:13PM EST [id number] N -2.5 Normal [facility] 03[facility]26[facility]20[facility] GEORGINA SEGURA ([id number]) 1945 F Date Time Provider Department 03/26/24 DINAH MELGAR [facility] During your visit today, we recorded the following information about you: Dinah Melgar MD 03/26/2024 4:23 PM Signed Bone density shows osteoporosis. H. If interested in retrying meds, come in to see one of us to discuss Martínez Kessler LPN 03/26/2024 4:50 PM Signed Phoned patient and went over results, notes from Dr Melgar several times to get her to understand. She is going to discuss with her daughter who is a nurse and gave her phone number to call back to schedule an appt. Allergies As of Date: 03/26/2024 Noted Allergy Reaction VIOXX (ROFECOXIB) 07/12/2005 ZOCOR (SIMVASTATIN) 03/18/2011 14 - Other: See Comments Comments: elevated CPK Date Reviewed: 02/01/2024 Reviewed by: Chuyita Davila MA - Fully Assessed Reason for Visit: Results [95] Prescriptions as of 03/26/2024 - famotidine (PEPCID) 40 mg tablet Take 1 tablet by mouth once daily. - ipratropium bromide (ATROVENT) 42 mcg (0.06 %) nasal spray Use 2 Sprays in the nose three times a day. - mirabegron (MYRBETRIQ) 50 mg Tb24 Take 1 tablet by mouth once daily. - pantoprazole DR (PROTONIX) 40 mg tablet Take 1 tablet by mouth once daily. - levothyroxine (SYNTHROID) 50 mcg tablet TAKE 1 TABLET BY MOUTH ONCE DAILY AT 6 AM - carvedilol (COREG) 6.25 mg tablet Take 1 tablet by mouth two times a day with meals. - FLUoxetine (PROZAC) 20 mg capsule Take 1 capsule by mouth every afternoon. - ezetimibe (ZETIA) 10 mg tablet Take 1 tablet by mouth once daily. - albuterol HFA (PROVENTIL HFA, VENTOLIN HFA) 90 mcg/actuation inhaler Inhale 2 Puffs as instructed every 4 hours as needed. Meds Comments as of 09/16/2023: Unsure of medications recent change Problem List As Of Date 03/26/2024 Noted Resolved Unspecified sleep apnea [G47.30] MIGRAINE NEC [346.8] LOC PRIM OSTEOART-L/LEG [M17.10] ESOPHAGEAL REFLUX [K21.9] 11/03/2005 DIFFUS CYSTIC MASTOPATHY [N60.19] 11/03/2005 ALLERGIC RHINITIS NOS [J30.9] 09/30/2007 Rotator cuff syndrome [M75.100] 02/12/2009 04/10/2014 Overactive bladder [N32.81] 02/12/2009 Asthma [J45.909] 03/11/2010 Diarrhea [R19.7] 06/21/2011 04/10/2014 Hyperlipidemia [E78.5] 04/26/2012 04/10/2014 Elevated CK [R74.8] 04/26/2012 04/10/2014 Supraspinatus tendonitis [M75.90] 12/06/2012 04/10/2014 Impingement syndrome of right shoulder [M75.41] 06/06/2013 04/10/2014 Cervical disc disease [M50.90] 06/06/2013 Right rotator cuff tear [M75.101] 06/28/2013 04/10/2014 Mixed incontinence [N39.46] 04/23/2015 Rotator cuff strain [S46.019A] 04/23/2015 05/18/2017 Hyperlipidemia LDL goal <100 [E78.5] 11/12/2015 Arthritis of both hands [M19.041, M19.042] 05/05/2016 Impingement syndrome of right shoulder [M75.41] 10/11/2016 05/18/2017 Tear of biceps tendon [S46.219A] 05/18/2017 02/16/2023 Irritable bowel syndrome with diarrhea [K58.0] 05/31/2018 Situational depression [F43.21] 05/31/2018 02/16/2023 Statin intolerance [Z78.9] 07/03/2018 OPENED IN ERROR 10/13/2018 02/03/2022 Special screening examination for viral disease*02/03/2022 02/03/2022 Hypothyroidism, acquired [E03.9] 08/04/2022 Dementia without behavioral disturbance (HCC) [*10/11/2022 02/16/2023 Depression, recurrent (HCC) [F33.9] 10/11/2022 Imbalance [R26.89] 10/11/2022 02/16/2023 Balance disorder [R26.89] 11/15/2022 Falls frequently [R29.6] 11/15/2022 Numbness and tingling of both feet [R20.0, R20.*11/15/2022 Cough [R05.9] 11/23/2022 02/16/2023 Mild intermittent asthma, uncomplicated [J45.20]11/23/2022 Acute pain of left shoulder [M25.512] 11/29/2022 02/16/2023 Closed head injury [S09.90XA] 11/18/2021 01/30/2024 Diagnosed: 02/16/2023 Contusion of forehead [S00.83XA] 11/18/2021 02/16/2023 Diagnosed: 02/16/2023 Fall [W19.XXXA] 02/16/2023 02/16/2023 Diagnosed: 02/16/2023 Fracture of skull (HCC) [S02.91XA] 02/16/2023 02/16/2023 Diagnosed: 02/16/2023 Laceration [DDS4425] 06/22/2022 10/24/2023 Diagnosed: 02/16/2023 Arthritis [M19.90] 02/16/2023 Diagnosed: 02/16/2023 History of skull fracture [Z87.81] 02/16/2023 [place] (acute kidney injury) ([facility]) [N17.9] 08/20/2023 01/30/2024 Closed odontoid fracture with routine healing [*08/20/2023 Obesity, Class I, BMI 30-34.9 [E66.811] 09/12/2023 Chronic kidney disease, stage 3a (HCC) [N18.31] 01/30/2024 Encounter Status:Closed by MARTÍNEZ KESSLER on 03/26/24 Normal [facility] DXA Femur [T-score] Bone den bridgetyon 03-26-2024 * * *Final Report* * * DATE OF EXAM: Mar 26 2024 11:40AM WRB 0801 - BD DXA TRABECLR BONE SCORE (TBS) / PROCEDURE REASON: multiple diagnoses * * * * Physician Interpretation * * * * EXAMINATION: DXA BONE DENSITOMETRY BD DXA - AXIAL SKELETON, BD DXA TRABECLR BONE SCORE (TBS) PATIENT DEMOGRAPHICS: Age: 78 years, Gender: Female SCANNER INFORMATION: DXA Model: [facility] - [employer] C [id number] Date Scanned: 03/26/2024 11:40 AM CLINICAL HISTORY: DIAGNOSTIC History of skull fracture Disorder of bone Closed odontoid fracture with routine healing Other osteoporosis. RISK FACTORS FOR OSTEOPOROSIS AND ASSOCIATED FRACTURES REPORTED BY THIS PATIENT: Please refer to Bone Health Questionnaire in the EMR CURRENT THERAPY: Please refer to Bone Health Questionnaire in the EMR TECHNICAL LIMITATIONS: Degenerative disease of the spine RESULTS: Lumbar spine (L1, L2, L3, L4): 1.041 g/cm2, T-score -0.1, Z-score 2.7 Lumbar spine: 2020: 1.058 g/cm2 No statistically significant change Right Femoral Neck: 0.597 g/cm2, T-score -2.3, Z-score 0.1 Right Femoral Neck: 2009: 0.705 g/cm2 Statistically significant decrease Right Total Hip: 0.794 g/cm2, T-score -1.2, Z-score 0.9 Right Total Hip: 2009: 0.967 g/cm2 Statistically significant decrease Left Femoral Neck: 0.573 g/cm2, T-score -2.5, Z-score -0.1 Left Femoral Neck: 2020: 0.597 g/cm2 No statistically significant change Left Total Hip: 0.776 g/cm2, T-score -1.4, Z-score 0.7 Left Total Hip: 2020: 0.858 g/cm2 Statistically significant decrease CHANGE IS STATISTICALLY SIGNIFICANT IN THE SPINE OR HIP IF GREATER THAN OR EQUAL TO 0.04 g/cm2 VERTEBRAL FRACTURE ASSESSMENT Not performed. TRABECULAR BONE ASSESSMENT TBS score: 1.117 Bone micro-architecture: Degraded (< or = 1.230) DIVISION OF RADIOLOGY Provider, [facility] - 03/26/2024 * * *Final Report* * * DATE OF EXAM: Mar 26 2024 11:40AM [facility] 0801 - BD DXA TRABECLR BONE SCORE (TBS) / PROCEDURE REASON: multiple diagnoses * * * * Physician Interpretation * * * * EXAMINATION: DXA BONE DENSITOMETRY BD DXA - AXIAL SKELETON, BD DXA TRABECLR BONE SCORE (TBS) PATIENT DEMOGRAPHICS: Age: 78 years, Gender: Female SCANNER INFORMATION: DXA Model: [place] - [employer] C [id number] Date Scanned: 03/26/2024 11:40 AM CLINICAL HISTORY: DIAGNOSTIC History of skull fracture Disorder of bone Closed odontoid fracture with routine healing Other osteoporosis. RISK FACTORS FOR OSTEOPOROSIS AND ASSOCIATED FRACTURES REPORTED BY THIS PATIENT: Please refer to Bone Health Questionnaire in the EMR CURRENT THERAPY: Please refer to Bone Health Questionnaire in the EMR TECHNICAL LIMITATIONS: Degenerative disease of the spine RESULTS: Lumbar spine (L1, L2, L3, L4): 1.041 g/cm2, T-score -0.1, Z-score 2.7 Lumbar spine: 2020: 1.058 g/cm2 No statistically significant change Right Femoral Neck: 0.597 g/cm2, T-score -2.3, Z-score 0.1 Right Femoral Neck: 2009: 0.705 g/cm2 Statistically significant decrease Right Total Hip: 0.794 g/cm2, T-score -1.2, Z-score 0.9 Right Total Hip: 2009: 0.967 g/cm2 Statistically significant decrease Left Femoral Neck: 0.573 g/cm2, T-score -2.5, Z-score -0.1 Left Femoral Neck: 2020: 0.597 g/cm2 No statistically significant change Left Total Hip: 0.776 g/cm2, T-score -1.4, Z-score 0.7 Left Total Hip: 2020: 0.858 g/cm2 Statistically significant decrease CHANGE IS STATISTICALLY SIGNIFICANT IN THE SPINE OR HIP IF GREATER THAN OR EQUAL TO 0.04 g/cm2 VERTEBRAL FRACTURE ASSESSMENT Not performed. TRABECULAR BONE ASSESSMENT TBS score: 1.117 Bone micro-architecture: Degraded (< or = 1.230) IMPRESSION IMPRESSION: THE LOWEST T-SCORE IS -2.5 IN THE LEFT HIP 1) DIAGNOSIS (based on BMD alone): OSTEOPOROSIS Caution: Medical conditions other than osteoporosis may cause low bone density, such as osteomalacia or renal osteodystrophy. Clinical correlation is necessary. 2) FRACTURE RISK (Based on TBS adjusted FRAX): 10-year absolute fracture risk: - major osteoporotic fracture = 24 % - hip fracture = 6.6 % - A diagnosis of Osteoporosis, a 10 year probability of hip fracture greater than or equal to 3% or a 10 year probability of any major osteoporosis-related fracture greater than or equal to 20% should be considered for treatment. - DXA scanner generated FRAX calculations may slightly differ from online FRAX calculations due to differences in software versions. - All recommendations and calculations are to be considered as guidelines and should not replace sound clinical judgement - Caution: Fracture risk may be increased independent of BMD in patients with corticosteroid use, age greater than 65 years, or a history of prior fragility fracture. RECOMMENDATIONS: Follow-up in 2 years or as clinically indicated. Patients that are taking corticosteroids, are transplant recipients or have hyperparathyroidism should have annual follow-up. Follow-up scans should always be done on the same machine for accurate comparison. FOR MORE INFORMATION ABOUT DIAGNOSIS AND TREATMENT: [facility] Osteoporosis and Metabolic Bone Disease:? www.ccf.org/arthritis /osteo National Osteoporosis Foundation:? www.nof.org International Society of Clinical Densitometry www.iscd.org 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DIEGO Transcribe Date/Time: Mar 26 2024 4:10P Dictated by : SONNY PICKENS MD This examination was interpreted and the report reviewed and electronically signed by: SONNY PICKENS MD on Mar 26 2024 4:13PM EST [facility] DXA Skeletal system.axial Vi ews for bone densityon 03-26-2024 * * *Final Report* * * DATE OF EXAM: Mar 26 2024 11:40AM WRB 0804 - BD DXA - AXIAL SKELETON / PROCEDURE REASON: multiple diagnoses * * * * Physician Interpretation * * * * EXAMINATION: DXA BONE DENSITOMETRY BD DXA - AXIAL SKELETON, BD DXA TRABECLR BONE SCORE (TBS) PATIENT DEMOGRAPHICS: Age: 78 years, Gender: Female SCANNER INFORMATION: DXA Model: [employer] - [employer] C [id number] Date Scanned: 03/26/2024 11:40 AM CLINICAL HISTORY: DIAGNOSTIC History of skull fracture Disorder of bone Closed odontoid fracture with routine healing Other osteoporosis. RISK FACTORS FOR OSTEOPOROSIS AND ASSOCIATED FRACTURES REPORTED BY THIS PATIENT: Please refer to Bone Health Questionnaire in the EMR CURRENT THERAPY: Please refer to Bone Health Questionnaire in the EMR TECHNICAL LIMITATIONS: Degenerative disease of the spine RESULTS: Lumbar spine (L1, L2, L3, L4): 1.041 g/cm2, T-score -0.1, Z-score 2.7 Lumbar spine: 2020: 1.058 g/cm2 No statistically significant change Right Femoral Neck: 0.597 g/cm2, T-score -2.3, Z-score 0.1 Right Femoral Neck: 2009: 0.705 g/cm2 Statistically significant decrease Right Total Hip: 0.794 g/cm2, T-score -1.2, Z-score 0.9 Right Total Hip: 2009: 0.967 g/cm2 Statistically significant decrease Left Femoral Neck: 0.573 g/cm2, T-score -2.5, Z-score -0.1 Left Femoral Neck: 2020: 0.597 g/cm2 No statistically significant change Left Total Hip: 0.776 g/cm2, T-score -1.4, Z-score 0.7 Left Total Hip: 2020: 0.858 g/cm2 Statistically significant decrease CHANGE IS STATISTICALLY SIGNIFICANT IN THE SPINE OR HIP IF GREATER THAN OR EQUAL TO 0.04 g/cm2 VERTEBRAL FRACTURE ASSESSMENT Not performed. TRABECULAR BONE ASSESSMENT TBS score: 1.117 Bone micro-architecture: Degraded (< or = 1.230) DIVISION OF RADIOLOGY Provider, Lilibeth Mg [facility] - 03/26/2024 * * *Final Report* * * DATE OF EXAM: Mar 26 2024 11:40AM WRB 0804 - BD DXA - AXIAL SKELETON / PROCEDURE REASON: multiple diagnoses * * * * Physician Interpretation * * * * EXAMINATION: DXA BONE DENSITOMETRY BD DXA - AXIAL SKELETON, BD DXA TRABECLR BONE SCORE (TBS) PATIENT DEMOGRAPHICS: Age: 78 years, Gender: Female SCANNER INFORMATION: DXA Model: Bloc - [employer] C [id number] Date Scanned: 03/26/2024 11:40 AM CLINICAL HISTORY: DIAGNOSTIC History of skull fracture Disorder of bone Closed odontoid fracture with routine healing Other osteoporosis. RISK FACTORS FOR OSTEOPOROSIS AND ASSOCIATED FRACTURES REPORTED BY THIS PATIENT: Please refer to Bone Health Questionnaire in the EMR CURRENT THERAPY: Please refer to Bone Health Questionnaire in the EMR TECHNICAL LIMITATIONS: Degenerative disease of the spine RESULTS: Lumbar spine (L1, L2, L3, L4): 1.041 g/cm2, T-score -0.1, Z-score 2.7 Lumbar spine: 2020: 1.058 g/cm2 No statistically significant change Right Femoral Neck: 0.597 g/cm2, T-score -2.3, Z-score 0.1 Right Femoral Neck: 2009: 0.705 g/cm2 Statistically significant decrease Right Total Hip: 0.794 g/cm2, T-score -1.2, Z-score 0.9 Right Total Hip: 2009: 0.967 g/cm2 Statistically significant decrease Left Femoral Neck: 0.573 g/cm2, T-score -2.5, Z-score -0.1 Left Femoral Neck: 2020: 0.597 g/cm2 No statistically significant change Left Total Hip: 0.776 g/cm2, T-score -1.4, Z-score 0.7 Left Total Hip: 2020: 0.858 g/cm2 Statistically significant decrease CHANGE IS STATISTICALLY SIGNIFICANT IN THE SPINE OR HIP IF GREATER THAN OR EQUAL TO 0.04 g/cm2 VERTEBRAL FRACTURE ASSESSMENT Not performed. TRABECULAR BONE ASSESSMENT TBS score: 1.117 Bone micro-architecture: Degraded (< or = 1.230) IMPRESSION IMPRESSION: THE LOWEST T-SCORE IS -2.5 IN THE LEFT HIP 1) DIAGNOSIS (based on BMD alone): OSTEOPOROSIS Caution: Medical conditions other than osteoporosis may cause low bone density, such as osteomalacia or renal osteodystrophy. Clinical correlation is necessary. 2) FRACTURE RISK (Based on TBS adjusted FRAX): 10-year absolute fracture risk: - major osteoporotic fracture = 24 % - hip fracture = 6.6 % - A diagnosis of Osteoporosis, a 10 year probability of hip fracture greater than or equal to 3% or a 10 year probability of any major osteoporosis-related fracture greater than or equal to 20% should be considered for treatment. - DXA scanner generated FRAX calculations may slightly differ from online FRAX calculations due to differences in software versions. - All recommendations and calculations are to be considered as guidelines and should not replace sound clinical judgement - Caution: Fracture risk may be increased independent of BMD in patients with corticosteroid use, age greater than 65 years, or a history of prior fragility fracture. RECOMMENDATIONS: Follow-up in 2 years or as clinically indicated. Patients that are taking corticosteroids, are transplant recipients or have hyperparathyroidism should have annual follow-up. Follow-up scans should always be done on the same machine for accurate comparison. FOR MORE INFORMATION ABOUT DIAGNOSIS AND TREATMENT: [facility]oporosis and Metabolic Bone Disease:? www.ccf.org/arthritis /osteo National Osteoporosis Foundation:? www.nof.org International Society of Clinical Densitometry www.iscd.org 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DIEGO Transcribe Date/Time: Mar 26 2024 4:10P Dictated by : SONNY PICKENS MD This examination was interpreted and the report reviewed and electronically signed by: SONNY PICKENS MD on Mar 26 2024 4:13PM [facility] No Panel InformationOrdered By: [facility] Provider on 03-26-2024 LOWEST T-SCORE -2.5 [facility] No Panel Informationon 03-26 IMPRESSION: THE LOWEST T-SCORE IS -2.5 IN THE LEFT HIP 1) DIAGNOSIS (based on BMD alone): OSTEOPOROSIS Caution: Medical conditions other than osteoporosis may cause low bone density, such as osteomalacia or renal osteodystrophy. Clinical correlation is necessary. 2) FRACTURE RISK (Based on TBS adjusted FRAX): 10-year absolute fracture risk: - major osteoporotic fracture = 24 % - hip fracture = 6.6 % - A diagnosis of Osteoporosis, a 10 year probability of hip fracture greater than or equal to 3% or a 10 year probability of any major osteoporosis-related fracture greater than or equal to 20% should be considered for treatment. - DXA scanner generated FRAX calculations may slightly differ from online FRAX calculations due to differences in software versions. - All recommendations and calculations are to be considered as guidelines and should not replace sound clinical judgement - Caution: Fracture risk may be increased independent of BMD in patients with corticosteroid use, age greater than 65 years, or a history of prior fragility fracture. RECOMMENDATIONS: Follow-up in 2 years or as clinically indicated. Patients that are taking corticosteroids, are transplant recipients or have hyperparathyroidism should have annual follow-up. Follow-up scans should always be done on the same machine for accurate comparison. FOR MORE INFORMATION ABOUT DIAGNOSIS AND TREATMENT: [facility] Oste[facility]osis and Metabolic Bone Disease:? www.ccf.org/arthritis /osteo National Osteoporosis Foundation:? www.nof.org International Society of Clinical Densitometry www.iscd.org 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DIEGO Transcribe Date/Time: Mar 26 2024 4:10P Dictated by : SONNY PICKENS MD This examination was interpreted and the report reviewed and electronically signed by: SONNY PICKENS MD on Mar 26 2024 4:13PM [facility] DIVISION OF RADIOLOGY Radiology Study observation (narrative) [facility] 02-01-2024 [facility] Office Visit (ENRRIQUEY ) GEORGINA SEGURA ([id number]) 1945 F Date Time Provider Department 02/01/24 9:15 AM GUILLAUME DELGADOBabatunde During your visit today, we recorded the following information about you: Pulse Blood pressure Weight Height 81/minute 124/74 86.8 kg 1.6 m Guillaume Delgado MD, PhD 02/01/2024 9:50 AM Signed NEUROSURGERY FOLLOW UP OFFICE NOTE Guillaume Delgado MD, PhD Date of visit: February 01, 2024 Patient Name: Ms.Betty Ricky Segura Date of : 1945 Current Age: [age] year old Sex: female MRN/E# [id number] Last Office Visit: Visit date not found Chief Complaint: Patient presents with: Follow Up: 78 year old female pt her for a follow up spinal stenosis. Ct and xray done on 01-04-24. SUBJECTIVE: HPI The patient presented to [facility] ED on 08/20/2023 af a transfer from an outside hospital follow a fall. She noted she hit her head on the wall. Outside imaging demonstrated a type 2 odontoid fracture (acute vs chronic). She reported multiple falls recently and in the past. She noted 2-3 weeks prior, she fell and endorsed neck pain but did not seek medical attention. No surgical interventions were required at that time. She was to wear a [place] collar at all times. She was to obtain a bone stimulator outpatient. She was to follow up in 1 month with repeat imaging. At her last visit on 09/16/2023 she stated she had been doing okay since discharge. She reported midline posterior cervical pain. She denied any radicular symptoms. Denied paresthesia. Denied any weakness. Denied any further falls, loss of bowel or bladder. She had since been using a cane for extra support. She was complaint with her cervical collar. She had been using ultram with relief. She was receiving home therapy. She did not receive any information about her bone growth stimulator. There was significant bone loss at the neck of the odontoid process that was caused to believe that she likely had a longstanding fracture in that location. It was difficult to tell thought it may be acute. Her xray's did not have any concerns with respect to odontoid displacement or other issues. She was interested in the bone growth stimulator. It was recommended that she follow up in 3 months with repeat imaging. At her last visit on 12/19/2023 she stated she had continual posterior cervical pain. She denied any radicular symptoms. Patient stated over the last week or so she had noticed left hand numbness. She reported using Tylenol as needed for the pain. She denied dexterity issues. She did not get her x-rays prior to her visit. She denied any recent falls, numbness, tingling or bowel/ bladder incontinence. Patient using a cane for assistance with ambulation. Patient still had her [place] collar on and stated she wanted it off. She noted she continued with her bone growth stimulator. There was concern for a new upper motor neuron finding that was not perviously documented. She was to obtain a CT myelogram of the cervical spine as she could not obtain an MRI due to her bladder stimulator. She was to follow up once completed, prompting her visit today. Today she states she continues with very little cervical pain and headaches, but states the headaches are unrelated to her cervical spine. Denies any radicular symptoms. Continues with left hand numbness. She continues to be off balance and unsteady with use of a cane, but reports this is improving. Denies any falls, loss of bowel or bladder. She has been complaint with her cervical collar. Notes she continues with her bone growth stimulator. She presents for imaging review, evaluation and plan of care. Symptoms: Posterior cervical pain, left hand numbness. Headaches, gait imbalance and use of a cane. Smoker: denies Diabetic: denies Anticoagulants / Antiplatelets: denies Occupation: [employer] PREVIOUS CONSERVATIVE TREATMENTS: [place] collar Ultram Bone growth stimulator. PREVIOUS SURGERY: None PAIN EVALUATION No data found in the last 1 encounters. PAST MEDICAL HISTORY Diagnosis Date Arthritis of both hands 05/05/2016 Asthma 03/11/2010 Cervical disc disease 06/06/2013 Dementia without behavioral disturbance (HCC) 10/11/2022 Depression, recurrent ([facility]) 10/11/2022 Diarrhea Diffuse cystic mastopathy 11/03/2005 Elevated CK 04/26/2012 Esophageal reflux 11/03/2005 Fracture of skull (HCC) 02/16/2023 Hyperlipidemia 04/26/2012 Hypothyroidism, acquired 08/04/2022 Impingement syndrome of right shoulder 10/11/2016 Irritable bowel syndrome with diarrhea 05/31/2018 Mild intermittent asthma, uncomplicated 11/23/2022 Neurogenic bladder, NOS Odontoid fracture (HCC) 08/20/2023 Other and unspecified hyperlipidemia Other forms of migraine Overactive bladder 02/12/2009 Primary localized osteoarthrosis, lower leg Rotator cuff syndrome 02/12/2009 Situational depression (more content not included)... Normal [facility] 25(OH)D3 SerPl-ncon 2023 25-hydroxyvitamin D3 [Mass/Vol] 21.9 ng/mL Low 31.0-80.0 [facility] Comment on above: Order Comment: Speci men Type: BLOOD SPECIMENOrdering Facility: [facility] Address: [address] [place] [address] Performed By: #### 6 30-4 #### [facility] CLIA [id number] [address] [address] [place] Basic metabolic 2000 panelon 01-30-2024 Anion gap [Moles/Vol] 12 mmol/L Normal 8-15 [facility] Comment on above: Order Comment: Speci men Type: BLOOD SPECIMENOrdering Facility: [facility] Address: [address] [place] [address] Performed By: #### 6 30-4 #### [facility] CLIA [id number] [address] [place] [address] [place] Calcium [Mass/Vol] 9.5 mg/dL Normal 8.5-10.2 [facility] Comment on above: Order Comment: Speci men Type: BLOOD SPECIMENOrdering Facility: [facility] Address: [address] [place] [address] Performed By: #### 6 30-4 #### [facility] CLIA [id number] [address] [address] [place] Chloride [Moles/Vol] 104 mmol/L Normal 98-107 [facility] Comment on above: Order Comment: Speci men Type: BLOOD SPECIMENOrdering Facility: [facility] Address: [address] [place] [address] Performed By: #### 6 30-4 #### [facility] CLIA [id number] [address] [address] [place] CO2 [Moles/Vol] 24 mmol/L Normal 22-30 [facility] Comment on above: Order Comment: Speci men Type: BLOOD SPECIMENOrdering Facility: [facility] Address: [address] [place] [address] Performed By: #### 6 30-4 #### [facility] CLIA [id number] [address] [address] [place] Creatinine [Mass/Vol] 1.20 mg/dL High 0.58-0.96 [facility] Comment on above: Order Comment: Speci men Type: BLOOD SPECIMENOrdering Facility: [facility] Address: [address] [place] [address] Performed By: #### 6 30-4 #### [facility] CLIA [id number] [address] [address] [place] Creatinine and Glomerular filtration rate.predicted panel (S/P/Bld) 46 mL/min/1.73m??? Low >=60 [facility] Comment on above: Order Comment: Speci men Type: BLOOD SPECIMENOrdering Facility: [facility] Address: [address] [place] [address] Result Comment: Lindsey mated Glomerular Filtration Rate (eGFR) is calculated using the 2020 CKD-EPI creatinine equation. This equation utilizes serum creatinine, sex, and age as parameters. The creatinine assay has traceable calibration to isotope dilution-mass spectrometry. Refer to KDIGO guidelines for clinical interpretation. In patients with unstable renal function, e.g. those with acute kidney injury, the eGFR may not accurately reflect actual GFR. Performed By: #### 6 30-4 #### [facility] CLIA [id number] [address] [address] [place] Glucose [Mass/Vol] 114 mg/dL High 74-99 [facility] Comment on above: Order Comment: Speci men Type: BLOOD SPECIMENOrdering Facility: [facility] Address: [address] [place] [address] Result Comment: The [place] Diabetes Association (ADA) provides guidance for cutoff values for fasting glucose and random glucose. The ADA defines fasting as no caloric intake for at least 8 hours. Fasting plasma glucose results between 100 to 125 mg/dL indicate increased risk for diabetes (prediabetes). Fasting plasma glucose results greater than or equal to 126 mg/dL meet the criteria for diagnosis of diabetes. In the absence of unequivocal hyperglycemia, results should be confirmed by repeat testing. In a patient with classic symptoms of hyperglycemia or hyperglycemic crisis, random plasma glucose results greater than or equal to 200 mg/dL meet the criteria for diagnosis of diabetes. Reference: Standards of Medical Care in Diabetes 2016, [place] Diabetes Association. Diabetes Care. 2016.39(Suppl 1). Performed By: #### 6 30-4 #### [facility] CLIA [id number] [address] [address] [place] Potassium [Moles/Vol] 4.9 mmol/L Normal 3.7-5.1 [facility] Comment on above: Order Comment: Speci men Type: BLOOD SPECIMENOrdering Facility: [facility] Address: [address] [place] [address] Performed By: #### 6 30-4 #### [facility] CLIA [id number] [address] [address] [place] Sodium [Moles/Vol] 140 mmol/L Normal 136-144 [facility] Comment on above: Order Comment: Speci men Type: BLOOD SPECIMENOrdering Facility: [facility] Address: [address] [place] [address] Performed By: #### 6 30-4 #### [facility] CLIA [id number] [address] [address] [place] Urea nitrogen [Mass/Vol] 22 mg/dL High 7-21 [facility] Comment on above: Order Comment: Speci men Type: BLOOD SPECIMENOrdering Facility: [facility] Address: [address] [place] [address] Performed By: #### 6 30-4 #### [facility] CLIA [id number] [address] [address] [place] CBC W Auto Differential pane l (Bld)on 01-30-2024 Basophils (Bld) [#/Vol] 0.05 10*3/uL Normal <0.11 [facility] Comment on above: Order Comment: Speci men Type: BLOOD SPECIMENOrdering Facility: [facility] Address: [address] [place] [address] Performed By: #### 6 30-4 #### [facility] CLIA [id number] [address] [address] [place] Basophils/100 WBC (Bld) 0.8 % Normal [facility] Comment on above: Order Comment: Speci men Type: BLOOD SPECIMENOrdering Facility: [facility] Address: [address] [place] [address] Performed By: #### 6 30-4 #### [facility] CLIA [id number] [address] [address] [place] Differential cell count method Nom (Bld) Auto Normal [facility] Comment on above: Order Comment: Speci men Type: BLOOD SPECIMENOrdering Facility: [facility] Address: [address] [place] [address] Performed By: #### 6 30-4 #### [facility] CLIA [id number] [address] [address] [place] Eosinophils (Bld) [#/Vol] 0.16 10*3/uL Normal <0.46 [facility] Comment on above: Order Comment: Speci men Type: BLOOD SPECIMENOrdering Facility: [facility] Address: [address] [place] [address] Performed By: #### 6 30-4 #### [facility] CLIA [id number] [address] [address] [place] Eosinophils/100 WBC (Bld) 2.4 % Normal [facility] Comment on above: Order Comment: Speci men Type: BLOOD SPECIMENOrdering Facility: [facility] Address: [address] [place] [address] Performed By: #### 6 30-4 #### [facility] CLIA [id number] [address] [address] [place] Erythrocyte distribution width (RBC) [Ratio] 12.8 % Normal 11.5-15.0 [facility] Comment on above: Order Comment: Speci men Type: BLOOD SPECIMENOrdering Facility: [facility] Address: [address] [place] [address] Performed By: #### 6 30-4 #### [facility] CLIA [id number] [address] [address] [place] Hematocrit (Bld) [Volume fraction] 42.7 % Normal 36.0-46.0 [facility] Comment on above: Order Comment: Speci men Type: BLOOD SPECIMENOrdering Facility: [facility] Address: [address] [place] [address] Performed By: #### 6 30-4 #### [facility] CLIA [id number] [address] [address] [place] Hemoglobin (Bld) [Mass/Vol] 13.7 g/dL Normal 11.5-15.5 [facility] Comment on above: Order Comment: Speci men Type: BLOOD SPECIMENOrdering Facility: [facility] Address: [address] [place] [address] Performed By: #### 6 30-4 #### [facility] CLIA [id number] [address] [address] [place] Immature granulocytes (Bld) [#/Vol] 0.03 10*3/uL Normal <0.10 [facility] Comment on above: Order Comment: Speci men Type: BLOOD SPECIMENOrdering Facility: [facility] Address: [address] [place] [address] Performed By: #### 6 30-4 #### [facility] CLIA [id number] [address] [address] [place] Immature granulocytes/100 WBC (Bld) 0.5 % Normal [facility] Comment on above: Order Comment: Speci men Type: BLOOD SPECIMENOrdering Facility: [facility] Address: [address] [place] [address] Performed By: #### 6 30-4 #### [facility] CLIA [id number] [address] [address] [place] Lymphocytes (Bld) [#/Vol] 1.97 10*3/uL Normal 1.00-4.00 [facility] Comment on above: Order Comment: Speci men Type: BLOOD SPECIMENOrdering Facility: [facility] Address: [address] [place] [address] Performed By: #### 6 30-4 #### [facility] CLIA [id number] [address] [address] [place] Lymphocytes/100 WBC (Bld) 29.7 % Normal [facility] Comment on above: Order Comment: Speci men Type: BLOOD SPECIMENOrdering Facility: [facility] Address: [address] [place] [address] Performed By: #### 6 30-4 #### [facility] CLIA [id number] [address] [address] [place] MCH (RBC) [Entitic mass] 30.0 pg Normal 26.0-34.0 [facility] Comment on above: Order Comment: Speci men Type: BLOOD SPECIMENOrdering Facility: [facility] Address: [address] [place] [address] Performed By: #### 6 30-4 #### [facility] CLIA [id number] [address] [address] [place] MCHC (RBC) [Mass/Vol] 32.1 g/dL Normal 30.5-36.0 [facility] Comment on above: Order Comment: Speci men Type: BLOOD SPECIMENOrdering Facility: [facility] Address: [address] [place] [address] Performed By: #### 6 30-4 #### [facility] CLIA [id number] [address] [address] [place] MCV (RBC) [Entitic vol] 93.4 fL Normal 80.0-100.0 [facility] Comment on above: Order Comment: Speci men Type: BLOOD SPECIMENOrdering Facility: [facility] Address: [address] [place] [address] Performed By: #### 6 30-4 #### [facility] CLIA [id number] [address] [address] [place] Monocytes (Bld) [#/Vol] 0.56 10*3/uL Normal <0.87 [facility] Comment on above: Order Comment: Speci men Type: BLOOD SPECIMENOrdering Facility: [facility] Address: [address] [place] [address] Performed By: #### 6 30-4 #### [facility] CLIA [id number] [address] [address] [place] Monocytes/100 WBC (Bld) 8.4 % Normal [facility] Comment on above: Order Comment: Speci men Type: BLOOD SPECIMENOrdering Facility: [facility] Address: [address] [place] [address] Performed By: #### 6 30-4 #### [facility] CLIA [id number] [address] [address] [place] Neutrophils (Bld) [#/Vol] 3.87 10*3/uL Normal 1.45-7.50 [facility] Comment on above: Order Comment: Speci men Type: BLOOD SPECIMENOrdering Facility: [facility] Address: [address] [place] [address] Performed By: #### 6 30-4 #### [facility] CLIA [id number] [address] [address] [place] Neutrophils/100 WBC (Bld) 58.2 % Normal [facility] Comment on above: Order Comment: Speci men Type: BLOOD SPECIMENOrdering Facility: [facility] Address: [address] [place] [address] Performed By: #### 6 30-4 #### [facility] CLIA [id number] [address] [address] [place] Nucleated RBC (Bld) [#/Vol] 10*3/uL Normal <0.01 [facility] Comment on above: Order Comment: Speci men Type: BLOOD SPECIMENOrdering Facility: [facility] Address: [address] [place] [address] Performed By: #### 6 30-4 #### [facility] CLIA [id number] [address] [place] [address] [place] Nucleated RBC/100 WBC (Bld) [Ratio] 0.0 /100 WBC Normal [facility] Comment on above: Order Comment: Speci men Type: BLOOD SPECIMENOrdering Facility: [facility] Address: [address] [place] [address] Performed By: #### 6 30-4 #### [facility] CLIA [id number] [address] [place] [address] [place] Platelet mean volume (Bld) [Entitic vol] 10.2 fL Normal 9.0-12.7 [facility] Comment on above: Order Comment: Speci men Type: BLOOD SPECIMENOrdering Facility: [facility] Address: [address] [place] [address] Performed By: #### 6 30-4 #### [facility] CLIA [id number] [address] [place] [address] [place] Platelets (Bld) [#/Vol] 314 10*3/uL Normal 150-400 [facility] Comment on above: Order Comment: Speci men Type: BLOOD SPECIMENOrdering Facility: [facility] Address: [address] [place] [address] Performed By: #### 6 30-4 #### [facility] CLIA [id number] [address] [place] [address] [place] RBC (Bld) [#/Vol] 4.57 10*6/uL Normal 3.90-5.20 [facility] Comment on above: Order Comment: Speci men Type: BLOOD SPECIMENOrdering Facility: [facility] Address: [address] [place] [address] Performed By: #### 6 30-4 #### [facility] CLIA [id number] [address] [place] [address] [place] WBC (Bld) [#/Vol] 6.64 10*3/uL Normal 3.70-11.00 [facility] Comment on above: Order Comment: Speci men Type: BLOOD SPECIMENOrdering Facility: [facility] Address: [address] [place] [address] Performed By: #### 6 30-4 #### [facility] CLIA [id number] [address] [place] [address] [place] CNOVon 01-30-2024 [facility] GEORGINA SEGURA ([id number]) 1945 F Date Time Provider Department 01/30/24 9:20 AM [facility] During your visit today, we recorded the following information about you: Pulse Blood pressure Weight Height 83/minute 112/50 86.8 kg 1.6 m Dinah Melgar MD 01/30/2024 5:23 PM Addendum Patient presents with: Follow Up HPI: Patient presents today for office visit for follow up. Follows with Neurosurgery. Had noted new left hand numbness at her last ov. Nothing new since. Upcoming appt this week. Note was copied and pasted, without alteration from: Dr Delgado's last note Unfortunately today Georgina reports that she did not get the request to obtain cervical x-rays. She reports that she is wearing her bone growth stimulator diligently. My concern today is that she has new upper motor neuron findings that have not been previously documented. She has a bladder stimulator in place that may prevent obtaining a cervical MR. We will check into whether this is likely be MR-compatible. If it is not I think we will need to proceed with a CT myelogram. I would like to see her again a few days after the CT myelogram has been completed when the report is available. I think there is a bit of a waiting list for CT milligram at the moment but hopefully we will be able to get this investigation completed before too long if it is required. I have cautioned Georgina that we often keep people in a collar with a bone growth stimulator for a period of 9 months and so it is unlikely that I will be able to recommend collar removal in the near future. Denies any chest pain or shortness of breath. Sees pulmonary today Mentions she has gained weight so this makes things harder. Has some chronic edema. Uses compression stockings. Sees Podiatry. Her knees bother her. Hard to walk. Ambulates with a cane. Wants to wait on checking the knees. No falls. Has some fatigue. Last tsh was in 07/02. Has issues losing weight. No gi changes. Some mild changes in the bowels or the last week and a half. Has a stool softener since not as active but not using. No blood or black stools. Moods are stable. Benefiting from naya tx. Uses cpap nightly. Reviewed print out from [employer]. Her AHI is improved from 60.9 to 14.4. they believe she would benefit from new setting on her cpap of 8-15 cm H20. If not improving. May consider sleep referral. CT myelogram: IMPRESSION: Stable nonunion type II odontoid fracture. Stable 1.4 cm lytic lesion in the dens in a nonaggressive appearance. Degenerative changes and OPLL. Resultant ventricle cord deformity at C3-4 through C5-6. Moderate to severe foraminal stenosis at bilateral C5-6. Anatomic Variant: None. Assume 7 cervical vertebrae with counting from the craniocervical junction. MEDICATIONS: Current Outpatient Medications Medication Sig ipratropium bromide (ATROVENT) 42 mcg (0.06 %) nasal spray Use 2 Sprays in the nose three times a day. mirabegron (MYRBETRIQ) 50 mg Tb24 Take 1 tablet by mouth once daily. pantoprazole DR (PROTONIX) 40 mg tablet Take 1 tablet by mouth once daily. levothyroxine (SYNTHROID) 50 mcg tablet TAKE 1 TABLET BY MOUTH ONCE DAILY AT 6 AM carvedilol (COREG) 6.25 mg tablet Take 1 tablet by mouth two times a day with meals. FLUoxetine (PROZAC) 20 mg capsule Take 1 capsule by mouth every afternoon. famotidine (PEPCID) 40 mg tablet Take 1 tablet by mouth once daily. ezetimibe (ZETIA) 10 mg tablet Take 1 tablet by mouth once daily. albuterol HFA (PROVENTIL HFA, VENTOLIN HFA) 90 mcg/actuation inhaler Inhale 2 Puffs as instructed every 4 hours as needed. No current facility-administered medications for this visit. ALLERGIES: ALLERGIES Allergen Reactions Vioxx [Rofecoxib] Zocor [Simvastatin] Other: See Comments elevated CPK PAST MEDICAL HISTORY Diagnosis Date Arthritis of both hands 05/05/2016 Asthma 03/11/2010 Cervical disc disease 06/06/2013 Dementia without behavioral disturbance (HCC) 10/11/2022 Depression, recurrent (HCC) 10/11/2022 Diarrhea Diffuse cystic mastopathy 11/03/2005 Elevated CK 04/26/2012 Esophageal reflux 11/03/2005 Fracture of skull (HCC) 02/16/2023 Hyperlipidemia 04/26/2012 Hypothyroidism, acquired 08/04/2022 Impingement syndrome of right shoulder 10/11/2016 Irritable bowel syndrome with diarrhea 05/31/2018 Mild intermittent asthma, uncomplicated 11/23/2022 Neurogenic bladder, NOS Odontoid fracture (HCC) 08/20/2023 Other and unspecified hyperlipidemia Other forms of migraine Overactive bladder 02/12/2009 Primary localized osteoarthrosis, lower leg Rotator cuff syndrome 02/12/2009 Situational depression 05/31/2018 Statin intolerance 07/03/2018 Supraspinatus tendonitis 12/06/2012 Tear of biceps tendon 05/18/2017 Unspecified sleep apnea Urinary incontinence 03/11/2010 PAST SURGICAL HISTORY Pr (more content not included)... Normal [facility] Pulmonary Visit Reporton Pulmonary Visit Report [facility] [address] [place] [address] OFFICE VISIT Date of Service: 01/30/24 MR#: [id number] Acct: [id number] Name: GEORGINA SEGURA Rep #: [id number] : 1945 Provider: ASIF Milligan Age/Sex: 78/F [place] [facility] Status: Signed Assessment and Plan Assessment and Plan (1) Sleep apnea: Status: Chronic Qualifiers: Sleep apnea type: obstructive Qualified Code(s): G47.33 - Obstructive sleep apnea (adult) (pediatric) Comment: AHI is 60.9 Plan: She is using and benefiting from Pap therapy, however she has an elevated residual AHI and increase in mask leaks. I am sending her to PAP Ed to evaluate for tips/tricks to reduce leaks. No indication for titration study at this time. Contact the office for any new or worsening symptoms in the meantime. Follow-up in 3 months to evaluate for reduces AHI and mask leak. She has been encouraged to call the office with any difficulty in the meantime. Orders: Orders Self Mgmnt Educ Training 01/30/24 G47.30 - Sleep apnea, unspecified Plan Details Follow Up: 3 Months ([facility]) HPI Sleep concern Chief Complaint: PAP therapy HPI Comments Details: This patient presents to the office today for initial consultation regarding concern for obstructive sleep apnea. She is in a wheelchair, currently on room air and accompanied today by her daughter. The patient reports that since being set up with PAP therapy she is occasionally having some difficulty with dry mouth. She is nodding off to sleep unintentionally, however this is occurring less frequently. She is experiencing some headaches, also not as frequent. It is unclear if she has nocturia as she has a bladder stimulator. She is noticing that she feels more rested and her daughter reports that the patient's thinking is more clear since starting PAP therapy. The patient is currently retired. 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 She is a lifelong never smoker. She does have an albuterol but has never used it. She has never seen a interline clerk. Past medical family history significant for: Mother had heart disease and scarlet fever, father had heart trouble as well. Sister had her gallbladder recently removed, also has osteoporosis. Brother has dementia. She has 2 children, 1 son and 1 daughter. The daughter has diabetes, fatty liver and nonessential tremors. The son has hyperlipidemia and tremors. The patient denies any difficulty with wheezing, chest tightness, chest pain or palpitations. She has some shortness of breath on exertion. She has an occasional dry cough, but she denies any sputum production or hemoptysis. She has not had any fever, chills or body aches. Test results personally reviewed with the patient: Split-night study completed on September 08, 2023. Overall AHI is 60.9 events per hour with treatment emergent conditions. Impression is severe sleep apnea, appeared mostly obstructive in mechanism. Recommendation is a trial of CPAP at 12 cm of water. Compliance report for the past 30 days shows 100% compliance and average use of 6 hours and 56 minutes per night. Current setting is CPAP 12 cmH2O with a residual AHI of 14.6 events per hour. Leaks do appear to be quite problematic. Intake Vital Signs 08/31/23 11:19 01/30/24 07:51 Height 5 ft 3 in 5 ft 3 in Weight: 190 lb BMI 33.6 BP 127/74 H Blood Pressure Location Rt brachial Position Sitting Pulse 77 Pulse Source Monitor Temp 97.2 F L Temperature Source Temporal Artery Pulse Oximetry (%) 93 Oxygen Delivery Method room air Intake Visit Reasons: Sleep problems Chief Complaint: Cervical Fracture Transportation Superintendent Required: No DME Vendor: Cpap - [employer] Accompanied by: Daughter Allergies rofecoxib (From Vioxx) Allergy (Verified 01/30/24 11:22) Unknown Medications ???Medication ???Instructions ???Recorded ???Confirmed ???Type famotidine 40 mg tablet 40 mg PO QHS GERD 06/11/22 01/30/24 History mirabegron 50 mg tablet,extended 50 mg PO DAILY OAB 06/11/22 01/30/24 History release 24 hr (Myrbetriq) pantoprazole 40 mg granules 40 mg PO DAILY GERD 06/11/22 01/30/24 History delayed-release for susp in packet ezetimibe 10 mg tablet 10 mg PO DAILY cholestorol 03/28/23 01/30/24 History albuterol sulfate 90 mcg/actuation 2 inh inhalation Q4H PRN 08/23/23 01/30/24 History aerosol inhaler SOB,Wheezing acetaminophen 500 mg tablet 1,000 mg (2 x 500 mg) PO Q8 #180 09/07/23 01/30/24 Rx tabs carvedilol 6.25 mg tablet 6.25 mg PO BIDCM #60 tabs 09/07/23 01/30/24 Rx fluoxetine 20 mg capsule (Prozac) 20 mg PO DAILY #30 caps 09/07/23 01/30/24 Rx ipratropium bromide 42 mcg (0.06 2 spray NASAL TID #1 BOTTLE 09/07/23 01/30/24 Rx %) nasal spra (more content not included)... Normal [facility] TSH SerPl-aCncon 01-30-2024 TSH Qn 3.010 m[IU]/L Normal 0.270-4.200 [facility] Comment on above: Order Comment: Speci men Type: BLOOD SPECIMENOrdering Facility: [facility] Address: [address] [place] [address] Performed By: #### 6 30-4 #### [facility] CLIA [id number] [address] [place] [address] [place] [address] [place] BRIEF OP NOTon 01-04-2024 BRIEF OP NOT HNO ID: [id number] Author: COSMO MCGUIRE PA-C Service: ? Author Type: Physician Food Tray Assembler Type: Brief Op Note Filed: 01/04/2024 11:12 Note Text: BRIEF OPERATIVE / PROCEDURE NOTE LOG ID: [id number] SURGERY/PROCEDURE DATE: 01/04/2024 INCISION/PROCEDURE START TIME: 1050 INCISION CLOSE/PROCEDURE END TIME: 1100 SURGEON(S)/PROCEDURAL IST(S) AND SILICATOR(S): Surgeons and Role: * Cosmo Mcguire PA-C - Primary No Additional Staff SURGERY/PROCEDURE(S): fluoroscopically guided lumbar puncture with IT injection of contrast ANESTHESIA: Local 5cc FINDINGS: successful access L5/S1, clear CSF, IT injection of 10cc Omnipaque 300. Fluoroscopy demonstrated presence of contrast in cervical region. ESTIMATED BLOOD LOSS: <1 mls SPECIMENS: None per ordering team COMPLICATIONS: None PRE-OP/PRE-PROCEDURE DIAGNOSIS: Spinal stenosis of cervical region POST-OP/POST-PROCEDUR E DIAGNOSIS: Same as Preop SIGNATURE: COSMO MCGUIRE PA-C PATIENT NAME: Georgina Segura DATE: January 04, 2024 TIME: 11:10 AM Normal [facility] CT MYELOGRAM CERVICALon 12-08 CT MYELOGRAM CERVICAL * * *Final Report* * * DATE OF EXAM: Jan 04 2024 11:25AM [facility] 0482 - CT MYELOGRAM CERVICAL / PROCEDURE REASON: spinal stenosis * * * * Physician Interpretation * * * * EXAMINATION: CT MYELOGRAM CERVICAL CLINICAL HISTORY: spinal stenosis TECHNIQUE: Spiral, high resolution axial images were obtained from the skull base to the cervicothoracic junction following the injection of intrathecal contrast with subsequent sagittal and coronal planar reconstructions. MQ: [id number] CT Radiation dose: Integrated CT Dose-Length Product (DLP) for this visit = 417 mGy*cm CT Dose Reduction Employed: Automated exposure control(AEC) and iterative recon COMPARISON: Outside CT cervical spine 09/06/2023 RESULT: Counting reference: Craniocervical junction. Anatomic Variants: None. Certified Medical Biller (topogram) images: No additional findings. Alignment: Reversal of the lower cervical spine. Stable 2 to 3 mm anterolisthesis at C4-5 due to facet arthropathy. Craniocervical junction: Stable corticated bone superior to a normally developed dens, likely representing a persistent ossiculum terminale. Osseous structures/fracture: Again noted is a nonunion type II fracture through the dens. There is minimal anterior sagittal translation of the fractured dens, stable. Again noted is a 1 x 1 x 1.4 cm lucent lesion in the posterior dense with a thin sclerotic margin, stable.. Stable severe disc space narrowing and endplate sclerosis at C5-6. Cervical spinal Canal: Satisfactory opacification of the subarachnoid spaces. Cervical soft tissues: The paraspinal soft tissues are within normal limits. Degenerative changes: There is likely ossification of the posterior longitudinal ligament. Degenerative with disc osteophyte complex, uncovertebral and facet hypertrophy C2-C3: Mild to moderate canal stenosis and mild bilateral foraminal stenosis C3-C4: Mild to moderate canal stenosis and ventral cord deformity. Mild right and moderate left foraminal stenosis C4-C5: Mild to moderate canal stenosis and ventral cord deformity. Mild right and moderate left foraminal stenosis. C5-C6: Mild to moderate canal stenosis and ventral cord deformity. Moderate to severe bilateral foraminal stenosis. C6-C7: Mild canal stenosis. Moderate right and mild left foraminal stenosis. C7-T1: Canal and foramina are patent. IMPRESSION: Stable nonunion type II odontoid fracture. Stable 1.4 cm lytic lesion in the dens in a nonaggressive appearance. Degenerative changes and OPLL. Resultant ventricle cord deformity at C3-4 through C5-6. Moderate to severe foraminal stenosis at bilateral C5-6. Anatomic Variant: None. Assume 7 cervical vertebrae with counting from the craniocervical junction. 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PSC[employer] Transcribe Date/Time: Jan 04 2024 1:59P Dictated by : HEATHER NEWMAN MD This examination was interpreted and the report reviewed and electronically signed by: HEATHER NEWMAN MD on Jan 04 2024 2:26PM EST [id number] N Normal [facility] XR MYELOGRAM CERVICALon 12-08 XR MYELOGRAM CERVICAL * * *Final Report* * * DATE OF EXAM: Jan 04 2024 11:14AM [facility] [id number] - XR MYELOGRAM CERVICAL / PROCEDURE REASON: M48.02 * * * * Physician Interpretation * * * * PROCEDURE: Myelogram HISTORY: The patient is a 78 years year old Female who presented with spinal stenosis of cervical region. Consent: The risks, benefits, treatment options, potential complications, equipment, and personnel to be involved were discussed (including the risks of radiation exposure, contrast and anesthesia administration) with the patient and all questions were answered and consent was obtained prior to the procedure. General: A) Medication Reconciliation: The patient's medications and allergies were reviewed in the electronic medical record and reconciled to the proposed procedure/treatment. B) Pre-Procedure Medications: Medication #1: None C) Positioning: The patient was placed Prone on the fluoroscopy table. D) The Lumbar dorsal soft tissues. were then sterile prepped and draped. E) Time Out: A time out was performed immediately prior to procedure start with the nursing, anesthesia and interventional team, correctly identifying the name, medical record number, procedure, anatomy (including marking of site and side), patient position, procedure consent form, relevant diagnostic and radiology test results, antibiotic administration, safety precautions, and procedure-specific equipment needs. Timeout Affirmation (if attending not present): PA, RN, and RT present. F) Anesthesia Type: administration of local anesthesia. Local Anesthesia: 5 mL 1% Lidocaine G) Anesthesia Was Administered For A Total Of None. H) Patient Monitoring: I personally monitored the patient?s level of consciousness and physiological status throughout the procedure. TECHNIQUE/RESULT: A) Access Site: 9 cm 22 gauge spinal needle from a Midline approach at the L5-S1 level. B) Counting reference: Lumbosacral junction. For the purposes of this report, L4-5 is considered the level of the iliac crest. C) Procedure Details: Using sterile procedure, local anesthesia was introduced to the skin and subcutaneous tissues as outlined above. Diagnostic Myelo Details: Under fluoroscopic guidance, the needle was carefully advanced into the lumbar subarachnoid space resulting in free flow of CSF. 10 ml of OMNIPAQUE 300 Intrathecal contrast was administered. CSF Color: Clear Diagnostic Myelogram Results: Myelogram Type: Cervical Primary Site Results: Fluoroscopy demonstrated presence of contrast in the cervical spine / subarachnoid space. Secondary Site Results: Not Applicable. D) Estimated Blood Loss: <1 mL E) Type of Removed Specimens: none per ordering team. F) Number of specimen vials: None Fluoroscopic Radiation Summary: Fluoroscopic guidance was performed in conjunction with the agricultural service technician. Plane A, Air Kerma: 11.8 mGy Dose Area Product (DAP): 2014.2 mGy*cm2 Fluoro time: 0:54 min: sec Post-Procedure: Conclusion: The patient was transferred to the Radiology Recovery Room in stable condition and observed for approximately 60 minutes. Immediate Complications: None. Delayed Complications (will be reported as an addendum to the original report): None apparent at this time Timeout Time and Procedure Start Time: 1050 Procedure End Time and Sign Out Time: 1100 IMPRESSION: Technically successful myelogram The procedure was performed by: Cosmo Mcguire PA-C 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PSCB Transcribe Date/Time: Jan 04 2024 11:55A Dictated by : ARLEEN PRESCOTT This examination was interpreted and the report reviewed and electronically signed by: ARLEEN PRESCOTT on Jan 04 2024 11:57AM EST [id number] N Normal [facility] CNOVon 12-19-2023 CNOV Office Visit ([facility]) GEORGINA SEGURA ([id number]) 1945 F Date Time Provider Department 12/19/23 10:30 AM GUILLAUME DELGADO [facility] During your visit today, we recorded the following information about you: Pulse Blood pressure Weight Height 76/minute 136/80 84.4 kg 1.6 m Guillaume Delgado MD, PhD 12/19/2023 11:17 AM Signed NEUROSURGERY FOLLOW UP OFFICE NOTE Guillaume Delgado MD, PhD Date of visit: December 19, 2023 Patient Name: Ms.Betty Ricky Segura Date of : 1945 Current Age: [age] year old Sex: female MRN/E# [id number] Last Office Visit: Visit date not found Chief Complaint: No chief complaint on file. SUBJECTIVE: HPI The patient presented to [facility] ED on 08/20/2023 af a transfer from an outside hospital follow a fall. She noted she hit her head on the wall. Outside imaging demonstrated a type 2 odontoid fracture (acute vs chronic). She reported multiple falls recently and in the past. She noted 2-3 weeks prior, she fell and endorsed neck pain but did not seek medical attention. No surgical interventions were required at that time. She was to wear a [place] collar at all times. She was to obtain a bone stimulator outpatient. She was to follow up in 1 month with repeat imaging. At her last visit on 09/16/2023 she stated she had been doing okay since discharge. She reported midline posterior cervical pain. She denied any radicular symptoms. Denied paresthesia. Denied any weakness. Denied any further falls, loss of bowel or bladder. She had since been using a cane for extra support. She was complaint with her cervical collar. She had been using ultram with relief. She was receiving home therapy. She did not receive any information about her bone growth stimulator. There was significant bone loss at the neck of the odontoid process that was caused to believe that she likely had a longstanding fracture in that location. It was difficult to tell thought it may be acute. Her xray's did not have any concerns with respect to odontoid displacement or other issues. She was interested in the bone growth stimulator. It was recommended that she follow up in 3 months with repeat imaging, prompting her visit today. Today she states she has continual posterior cervical pain. She denies any radicular symptoms. Patient states over the last week or so she has noticed left hand numbness. She reports using Tylenol as needed for the pain. She denies dexterity issues. She did not get her x-rays prior to her visit today. She denies any recent falls, numbness, tingling or bowel/ bladder incontinence. Patient using a cane for and assistance with ambulation. Patient still has her [place] collar on and states she wants it off. She presents for evaluation and plan of care. Symptoms: Posterior cervical pain, left hand numbness. Smoker: denies Diabetic: denies Anticoagulants / Antiplatelets: denies Occupation: [employer] PREVIOUS CONSERVATIVE TREATMENTS: [place] collar Ultram PREVIOUS SURGERY: None PAIN EVALUATION No data found in the last 1 encounters. PAST MEDICAL HISTORY Diagnosis Date Arthritis of both hands 05/05/2016 Asthma 03/11/2010 Cervical disc disease 06/06/2013 Dementia without behavioral disturbance (HCC) 10/11/2022 Depression, recurrent (HCC) 10/11/2022 Diarrhea Diffuse cystic mastopathy 11/03/2005 Elevated CK 04/26/2012 Esophageal reflux 11/03/2005 Fracture of skull (HCC) 02/16/2023 Hyperlipidemia 04/26/2012 Hypothyroidism, acquired 08/04/2022 Impingement syndrome of right shoulder 10/11/2016 Irritable bowel syndrome with diarrhea 05/31/2018 Mild intermittent asthma, uncomplicated 11/23/2022 Neurogenic bladder, NOS Odontoid fracture (HCC) 08/20/2023 Other and unspecified hyperlipidemia Other forms of migraine Overactive bladder 02/12/2009 Primary localized osteoarthrosis, lower leg Rotator cuff syndrome 02/12/2009 Situational depression 05/31/2018 Statin intolerance 07/03/2018 Supraspinatus tendonitis 12/06/2012 Tear of biceps tendon 05/18/2017 Unspecified sleep apnea Urinary incontinence 03/11/2010 PAST SURGICAL HISTORY Procedure Laterality Date ADENOIDECTOMY PRIMARY Adenoidectomy APPENDECTOMY COLONOSCOPY W/BIOPSY SINGLE/MULTIPLE 06/21/11 DILATION AND CURETTAGE DXAND/THER NONOBSTETRIC Dilation AND curettage LAPAROSCOPY SURG CHOLECYSTECTOMY 07-15-06 Cholecystectomy, lap PAST SURGICAL HISTORY OF N/A 2017 urinary implant device TONSILLECTOMY PRIMARY/SECONDARY Tonsillectomy VAGINAL HYSTERECTOMY UTERUS 250 GM/< Hysterectomy, vaginal FAMILY HISTORY Problem Relation Age of Onset other (dementia [Other]) Father Heart Father Tremor Father Heart Mother Heart Brother Tremor Daughter Tremor Son ALLERGIES Allergen Reactions Vioxx [Rofecoxib] Zocor [Simvastatin] Other: See Comments elevated CPK Current Outpatient Medications Medication Sig (more content not included)... Normal [facility] CNOVon 10-24-2023 CN Office Visit (LAURELWS ) GEORGINA SEGURA ([id number]) 1945 F Date Time Provider Department 10/24/23 11:20 AM DINAH MELGARWS During your visit today, we recorded the following information about you: Pulse Blood pressure Weight 88/minute 111/67 84.4 kg Dinah Melgar MD 10/24/2023 12:06 PM Signed Patient presents with: Follow Up HPI: Patient presents today for office visit for follow up. Sees neurosurgery again in December. Using her cane. No falls. Mentally is doing well. No constipation. No chest pain Has a cpap and oxygen at hs from sleep med/pulmonary. Still has some pain. Neuro surgery declined pain meds. Mostly using tramadol if goes away etc. Does help her to function. Discussed risks and benefits of opiates. No misuse or abuse. Discussed that if chronic use occurs, might need to see pain management. Note was copied and pasted, without alteration from last ov: HOSPITAL/ER FOLLOW UP: Recently in [facility] and then transferred to [facility] rehab Date of [facility] 08/22-09/08/23. Today is day two after discharge (normal working hours) [facility] is following. Undergoing physical therapy. Wearing her collar. Mentally is back to baseline. Is not taking her buspar that was discussed in hospital discharge. Bp is well controlled. No chest pain or shortness of breath. No worsening edema. No new neuro issues. No black or bloody stools. Was having constipation when her heme positive stool was done. She is not anemic. We discussed rechecking at some point. We discussed adding colace. Rarely using tramadol. Has appointments with pulmonary at [facility] for sleep study follow up. Has follow up neurosurgery. [facility] is following. Her daughter is keeping close tabs on her. Is on oxygen at hs. See discharge from [facility], copied and pasted: Diagnosis Discharge Diagnosis (1) Debility: Status: Acute Code(s): R53.81 - Other malaise Plan: Due to non-displaced fractures of the dens due to falls. (2) Frequent falls: Status: Chronic Code(s): R29.6 - Repeated falls Plan: Related to untreated sleep apnea, sedating medications, elevated TSH, etc. (3) Closed type II fracture of odontoid process: Status: Inactive Code(s): S12.110A - Anterior displaced Type II dens fracture, initial encounter for closed fracture (4) Laceration of scalp: Status: Inactive Code(s): S01.01XA - Laceration without foreign body of scalp, initial encounter Qualifiers: Encounter type: subsequent encounter Qualified Code(s): S01.01XD - Laceration without foreign body of scalp, subsequent encounter Plan: Healed. Radha removed. (5) Closed head injury: Status: Acute Code(s): S09.90XA - Unspecified injury of head, initial encounter Qualifiers: Encounter type: subsequent encounter Qualified Code(s): S09.90XD - Unspecified injury of head, subsequent encounter (6) Hypothyroid: Status: Chronic Code(s): E03.9 - Hypothyroidism, unspecified Qualifiers: Hypothyroidism type: acquired Qualified Code(s): E03.9 - Hypothyroidism, unspecified Plan: TSH was elevated. Levothyroxine dose increased from 25 mcg daily to 50 mcg daily. Will need a follow up TSH/T4 in 4-6 weeks. (7) Elevated TSH: Status: Acute Code(s): R79.89 - Other specified abnormal findings of blood chemistry (8) Concussion: Status: Inactive Code(s): S06.0XAA - Concussion with loss of consciousness status unknown, initial encounter Qualifiers: Encounter type: subsequent encounter Loss of consciousness presence/duration: without LOC Qualified Code(s): S06.0X0D - Concussion withoutloss of consciousness, subsequent encounter (9) Nausea and vomiting: Status: Resolved Code(s): R11.2 - Nausea with vomiting, unspecified Qualifiers: Vomiting type: unspecified Qualified Code(s): R11.2 - Nausea with vomiting, unspecified Plan: Resolved with discontinuation of Aricept and decreasing the dose of Prozac. Mayconsider restarting Aricept at 5 mg as an OP to see if she can tolerate a lower dose without recurrent N/V. (10) Heme positive stool: Status: Acute Code(s): R19.5 - Other fecal abnormalities Plan: Heme positive stool but with no anemia. Will defer workup to her family practitioner. (11) HTN (hypertension): Status: Chronic Code(s): I10 - Essential (primary) hypertension Qualifiers: Hypertension type: unspecified Qualified Code(s): I10 - Essential (primary) hypertension Plan: Catecholamine driven. Good response to Coreg but, BP still goes up with anxietyand we have needed to give Hydralazine at times. doing better with the additionof Buspar to the drug regimen. On 5 mg BID at DC......will likely need to increase the dose going forward. Tolerating with no adverse side effects at thetime of DC from rehab. (12) Lightheadedness: Status: Resolved Code(s): R42 - Dizziness and giddiness Plan: Dur to (more content not included)... Normal [facility] CNPNon 10-10-2023 CNPN Telephone (FAMWS) GEORGINA SEGURA ([id number]) 1945 F Date Time Provider Department 10/10/23 DINAH MELGAR [facility] During your visit today, we recorded the following information about you: Allergies As of Date: 10/10/2023 Noted Allergy Reaction VIOXX (ROFECOXIB) 07/12/2005 ZOCOR (SIMVASTATIN) 03/18/2011 14 - Other: See Comments Comments: elevated CPK Date Reviewed: 09/16/2023 Reviewed by: Kimberly Domingo LPN - Fully Assessed Prescriptions as of 10/10/2023 - levothyroxine (SYNTHROID) 50 mcg tablet TAKE 1 TABLET BY MOUTH ONCE DAILY AT 6 AM - carvedilol (COREG) 6.25 mg tablet Take 1 tablet by mouth two times a day with meals. - FLUoxetine (PROZAC) 20 mg capsule Take 1 capsule by mouth every afternoon. - pantoprazole DR (PROTONIX) 40 mg tablet Take 1 tablet by mouth once daily. - traMADol (ULTRAM) 50 mg tablet TAKE 1 TABLET BY MOUTH THREE TIMES DAILY (EVERY 8 HOURS) NEEDED FOR LEVEL 4-10 PAIN - IPRATROPIUM BROMIDE NASAL Use in the nose. - famotidine (PEPCID) 40 mg tablet Take 1 tablet by mouth once daily. - ezetimibe (ZETIA) 10 mg tablet Take 1 tablet by mouth once daily. - mirabegron (MYRBETRIQ) 50 mg Tb24 Take 25 mg by mouth once daily. - albuterol HFA (PROVENTIL HFA, VENTOLIN HFA) 90 mcg/actuation inhaler Inhale 2 Puffs as instructed every 4 hours as needed. Meds Comments as of 09/16/2023: Unsure of medications recent change Problem List As Of Date 10/10/2023 Noted Resolved Unspecified sleep apnea [G47.30] MIGRAINE NEC [346.8] LOC PRIM OSTEOART-L/LEG [M17.10] ESOPHAGEAL REFLUX [K21.9] 11/03/2005 DIFFUS CYSTIC MASTOPATHY [N60.19] 11/03/2005 ALLERGIC RHINITIS NOS [J30.9] 09/30/2007 Rotator cuff syndrome [M75.100] 02/12/2009 04/10/2014 Overactive bladder [N32.81] 02/12/2009 Asthma [J45.909] 03/11/2010 Diarrhea [R19.7] 06/21/2011 04/10/2014 Hyperlipidemia [E78.5] 04/26/2012 04/10/2014 Elevated CK [R74.8] 04/26/2012 04/10/2014 Supraspinatus tendonitis [M75.90] 12/06/2012 04/10/2014 Impingement syndrome of right shoulder [M75.41] 06/06/2013 04/10/2014 Cervical disc disease [M50.90] 06/06/2013 Right rotator cuff tear [M75.101] 06/28/2013 04/10/2014 Mixed incontinence [N39.46] 04/23/2015 Rotator cuff strain [S46.019A] 04/23/2015 05/18/2017 Hyperlipidemia LDL goal <100 [E78.5] 11/12/2015 Arthritis of both hands [M19.041, M19.042] 05/05/2016 Impingement syndrome of right shoulder [M75.41] 10/11/2016 05/18/2017 Tear of biceps tendon [S46.219A] 05/18/2017 02/16/2023 Irritable bowel syndrome with diarrhea [K58.0] 05/31/2018 Situational depression [F43.21] 05/31/2018 02/16/2023 Statin intolerance [Z78.9] 07/03/2018 OPENED IN ERROR 10/13/2018 02/03/2022 Special screening examination for viral disease*02/03/2022 02/03/2022 Hypothyroidism, acquired [E03.9] 08/04/2022 Dementia without behavioral disturbance (HCC) [*10/11/2022 02/16/2023 Depression, recurrent (HCC) [F33.9] 10/11/2022 Imbalance [R26.89] 10/11/2022 02/16/2023 Balance disorder [R26.89] 11/15/2022 Falls frequently [R29.6] 11/15/2022 Numbness and tingling of both feet [R20.0, R20.*11/15/2022 Cough [R05.9] 11/23/2022 02/16/2023 Mild intermittent asthma, uncomplicated [J45.20]11/23/2022 Acute pain of left shoulder [M25.512] 11/29/2022 02/16/2023 Closed head injury [S09.90XA] 11/18/2021 Contusion of forehead [S00.83XA] 11/18/2021 02/16/2023 Fall [W19.XXXA] 02/16/2023 02/16/2023 Fracture of skull (HCC) [S02.91XA] 02/16/2023 02/16/2023 Laceration [[id number]] 06/22/2022 Arthritis [M19.90] 02/16/2023 History of skull fracture [Z87.81] 02/16/2023 RALEIGH (acute kidney injury) (HCC) [N17.9] 08/20/2023 Odontoid fracture (HCC) [S12.110A] 08/20/2023 Obesity, Class I, BMI 30-34.9 [E66.9] 09/12/2023 Encounter Status:Closed by IDNAH MELGAR on 10/10/23 [facility] CNOVon 09-16-2023 CNOV Office Visit (PODIWS ) GEORGINA SEGURA ([id number]) 1945 F Date Time Provider Department 09/16/23 3:00 PM TON LOONEY PODIWS During your visit today, we recorded the following information about you: Kimberly Domingo FAB[employer]ICATION 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 They state that the nails are especially painful with shoe gear and pressure. Patient states that nails 1-5 b/l are painful. Patient states no change in medications or medical history since last visit. Objective: Patient presents to clinic ambulating in dress shoes Vasc: DP and PT pulses are faintly palpable bilateral. CFT is less than 5 seconds bilateral. Skin temperature is warm to cool proximal to distal bilateral. There is mild edema or varicosities noted. Neuro: Protective sensation is intact to the foot and toes when tested with the 5.07 SWM bilateral. Vibratory sensation is decreased at the hallux IPJ bilateral. The hallux is downgoing bilateral. Derm: Nails 1-5 b/l are painful, discolored-yellow, thick, crumbly, dystrophic and with subungal debris. Skin is of normal turgor, texture and hair growth is decreased bilateral. There are no hyperkeratosis, ulcerations, scars, verruca or other lesions noted. Ortho: Muscle strength is 5/5 for all pedal groups tested. Ankle joint DF is decreased with the knee extended with no pain or crepitus noted. 1st MPJ ROM is decreased bilateral. Assessment: (B35.1) Onychomycosis (primary encounter diagnosis) (M79.675) Pain in toe of left foot (M79.674) Pain in toe of right foot Plan: Patient was seen and evaluated. Nails 1-5 bilateral were debrided in length and thickness. Patient is to RTC in 3-4 months. Ton Looney DPM Referring Provider: TON LOONEY [[id number]] Allergies As of Date: 09/16/2023 Noted Allergy Reaction VIOXX (ROFECOXIB) 07/12/2005 ZOCOR (SIMVASTATIN) 03/18/2011 14 - Other: See Comments Comments: elevated CPK Date Reviewed: 09/16/2023 Reviewed by: Kimberly Domingo LPN - Fully Assessed Primary Visit Diagnosis:Onychomycos is [B35.1] Other Visit Diagnoses:Pain in toe of left foot [M79.675] Pain in toe of right foot [M79.674] Prescriptions as of 09/18/2023 - pantoprazole DR (PROTONIX) 40 mg tablet Take 1 tablet by mouth once daily. - carvedilol (COREG) 6.25 mg tablet Take 6.25 mg by mouth two times a day with meals. - traMADol (ULTRAM) 50 mg tablet TAKE 1 TABLET BY MOUTH THREE TIMES DAILY (EVERY 8 HOURS) NEEDED FOR LEVEL 4-10 PAIN - FLUoxetine (PROZAC) 20 mg capsule Take 1 capsule by mouth every afternoon. - levothyroxine (SYNTHROID) 50 mcg tablet TAKE 1 TABLET BY MOUTH ONCE DAILY AT 6 AM - IPRATROPIUM BROMIDE NASAL Use in the nose. - famotidine (PEPCID) 40 mg tablet Take 1 tablet by mouth once daily. - ezetimibe (ZETIA) 10 mg tablet Take 1 tablet by mouth once daily. - mirabegron (MYRBETRIQ) 50 mg Tb24 Take 25 mg by mouth once daily. - albuterol HFA (PROVENTIL HFA, VENTOLIN HFA) 90 mcg/actuation inhaler Inhale 2 Puffs as instructed every 4 hours as needed. Meds Comments as of 09/16/2023: Unsure of medications recent change Problem List As Of Date 09/16/2023 Noted Resolved Unspecified sleep apnea [G47.30] MIGRAINE NEC [346.8] LOC PRIM OSTEOART-L/LEG [M17.10] ESOPHAGEAL REFLUX [K21.9] 11/03/2005 DIFFUS CYSTIC MASTOPATHY [N60.19] 11/03/2005 ALLERGIC RHINITIS NOS [J30.9] 09/30/2007 Rotator cuff syndrome [M75.100] 02/12/2009 04/10/2014 Overactive bladder [N32.81] 02/12/2009 Asthma [J45.909] 03/11/2010 Diarrhea [R19.7] 06/21/2011 04/10/2014 Hyperlipidemia [E78.5] 04/26/2012 04/10/2014 Elevated CK [R74.8] 04/26/2012 04/10/2014 Supraspinatus tendonitis [M75.90] 12/06/2012 04/10/2014 Impingement syndrome of right shoulder [M75.41] 06/06/2013 04/10/2014 Cervical disc disease [M50.90] 06/06/2013 Right rotator cuff tear [M75.101] 06/28/2013 04/10/2014 Mixed incontinence [N39.46] 04/23/2015 Rotator cuff strain [S46.019A] 04/23/2015 05/18/2017 Hyperlipidemia LDL goal <100 [E78.5] 11/12/2015 Arthritis of both hands [M19.041, M19.042] 05/05/2016 Impingement syndrome of right shoulder [M75.41] 10/11/2016 05/18/2017 Tear of biceps tendon [S46.219A] 05/18/2017 02/16/2023 Irritable bowel syndrome with diarrhea [K58.0] 05/31/2018 Situational depression [F43.21] 05/31/2018 02/16/2023 Statin intolerance [Z78.9] 07/03/2018 OPENED IN ERROR 10/13/2018 02/03/2022 Special screening examination for viral disease*02/03/2022 02/03/2022 Hypothyroidism, acquired [E03.9] 0 (more content not included)... Normal [facility] CNOV Office Visit (NSAGAP ) GEORGINA SEGURA ([id number]) 1945 F Date Time Provider Department 09/16/23 10:00 AM GUILLAUME DELGADO NSAGAP During your visit today, we recorded the following information about you: Pulse Respiration Blood pressure Weight 89/minute 20/minute 143/72 82.4 kg Guillaume Delgado MD, PhD 09/16/2023 10:53 AM Signed NEUROSURGERY FOLLOW UP OFFICE NOTE Guillaume Delgado MD, PhD Date of visit: September 16, 2023 Patient Name: Ms.Betty Ricky Segura Date of : 1945 Current Age: [age] year old Sex: female MRN/E# [id number] Last Office Visit: Visit date not found Chief Complaint: Patient presents with: Established Patient: ED follow up SUBJECTIVE: HPI The patient presented to [facility] ED on 08/20/2023 af a transfer from an outside hospital follow a fall. She noted she hit her head on the wall. Outside imaging demonstrated a type 2 odontoid fracture (acute vs chronic). She reported multiple falls recently and in the past. She noted 2-3 weeks prior, she fell and endorsed neck pain but did not seek medical attention. No surgical interventions were required at that time. She was to wear a [place] collar at all times. She was to obtain a bone stimulator outpatient. She was to follow up in 1 month with repeat imaging, prompting her visit today. Today she states she has been doing okay since discharge. She reports midline posterior cervical pain. She denies any radicular symptoms. Denies paresthesia. Denies any weakness. Denies any further falls, loss of bowel or bladder. She has since been using a cane for extra support. She has been complaint with her cervical collar. She has been using ultram with relief. She is receiving home therapy at this time. She did not receive any information about her bone growth stimulator. She presents for imaging review, evaluation and plan of care. Symptoms: midline posterior cervical pain Smoker: denies Diabetic: denies Anticoagulants / Antiplatelets: denies Occupation: [employer] PREVIOUS CONSERVATIVE TREATMENTS: [place] collar Ultram PREVIOUS SURGERY: None PAIN EVALUATION 09/11/2023 1240 09/16/2023 1020 Pain Level: 4 4 Pain Location: Neck Neck Description: Aching;Tightness -- Duration Amount of Time: 24 -- Duration Units: Hours -- Frequency: Continuous -- Intervention/Comfort measure: Medication;Other: See comment -- Comments: neck brace -- PAST MEDICAL HISTORY Diagnosis Date Arthritis of both hands 05/05/2016 Asthma 03/11/2010 Cervical disc disease 06/06/2013 Dementia without behavioral disturbance (HCC) 10/11/2022 Depression, recurrent (HCC) 10/11/2022 Diarrhea Diffuse cystic mastopathy 11/03/2005 Elevated CK 04/26/2012 Esophageal reflux 11/03/2005 Fracture of skull (HCC) 02/16/2023 Hyperlipidemia 04/26/2012 Hypothyroidism, acquired 08/04/2022 Impingement syndrome of right shoulder 10/11/2016 Irritable bowel syndrome with diarrhea 05/31/2018 Mild intermittent asthma, uncomplicated 11/23/2022 Neurogenic bladder, NOS Odontoid fracture (HCC) 08/20/2023 Other and unspecified hyperlipidemia Other forms of migraine Overactive bladder 02/12/2009 Primary localized osteoarthrosis, lower leg Rotator cuff syndrome 02/12/2009 Situational depression 05/31/2018 Statin intolerance 07/03/2018 Supraspinatus tendonitis 12/06/2012 Tear of biceps tendon 05/18/2017 Unspecified sleep apnea Urinary incontinence 03/11/2010 PAST SURGICAL HISTORY Procedure Laterality Date ADENOIDECTOMY PRIMARY Adenoidectomy APPENDECTOMY COLONOSCOPY W/BIOPSY SINGLE/MULTIPLE 06/21/11 DILATION AND CURETTAGE DXAND/THER NONOBSTETRIC Dilation AND curettage LAPAROSCOPY SURG CHOLECYSTECTOMY 07-15-06 Cholecystectomy, lap PAST SURGICAL HISTORY OF N/A 2016 urinary implant device TONSILLECTOMY PRIMARY/SECONDARY Tonsillectomy VAGINAL HYSTERECTOMY UTERUS 250 GM/< Hysterectomy, vaginal FAMILY HISTORY Problem Relation Age of Onset other (dementia [Other]) Father Heart Father Tremor Father Heart Mother Heart Brother Tremor Daughter Tremor Son ALLERGIES Allergen Reactions Vioxx [Rofecoxib] Zocor [Simvastatin] Other: See Comments elevated CPK Current Outpatient Medications Medication Sig Dispense Refill carvedilol (COREG) 6.25 mg tablet Take 6.25 mg by mouth two times a day with meals. traMADol (ULTRAM) 50 mg tablet TAKE 1 TABLET BY MOUTH THREE TIMES DAILY (EVERY 8 HOURS) NEEDED FOR LEVEL 4-10 PAIN FLUoxetine (PROZAC) 20 mg capsule Take 1 capsule by mouth every afternoon. levothyroxine (SYNTHROID) 50 mcg tablet TAKE 1 TABLET BY MOUTH ONCE DAILY AT [address] (PROTONIX) 40 mg tablet Take 40 mg by mouth once daily. IPRATROPIUM BROMIDE NASAL Use in the nose. famotidine (PEPCID) 40 mg tablet Take 1 tablet by mouth once daily. 90 tablet 1 ezetimibe (ZETIA) 10 mg tablet Take 1 tablet by mouth once daily. 90 tablet 3 (more content not included)... Normal [facility]15[facility]20[facility]) GEORGINA SEGURA ([id number]) 1945 F Date Time Provider Department 09/15/23 DINAH MELGAR [facility] During your visit today, we recorded the following information about you: Martínez Kessler LPN 09/15/2023 3:47 PM Signed Ángel from [facility] calling with PT plan of care, 1 visit this week, then 2 visits weekly for 2 weeks, then 1 visit weekly for 3 weeks. No need for return call. Allergies As of Date: 09/15/2023 Noted Allergy Reaction VIOXX (ROFECOXIB) 07/12/2005 ZOCOR (SIMVASTATIN) 03/18/2011 14 - Other: See Comments Comments: elevated CPK Date Reviewed: 09/12/2023 Reviewed by: Glenis Truong MA - Fully Assessed Reason for Visit: PT plan of care [Other] Prescriptions as of 09/26/2023 - pantoprazole DR (PROTONIX) 40 mg tablet Take 1 tablet by mouth once daily. - carvedilol (COREG) 6.25 mg tablet Take 6.25 mg by mouth two times a day with meals. - traMADol (ULTRAM) 50 mg tablet TAKE 1 TABLET BY MOUTH THREE TIMES DAILY (EVERY 8 HOURS) NEEDED FOR LEVEL 4-10 PAIN - FLUoxetine (PROZAC) 20 mg capsule Take 1 capsule by mouth every afternoon. - levothyroxine (SYNTHROID) 50 mcg tablet TAKE 1 TABLET BY MOUTH ONCE DAILY AT 6 AM - IPRATROPIUM BROMIDE NASAL Use in the nose. - famotidine (PEPCID) 40 mg tablet Take 1 tablet by mouth once daily. - ezetimibe (ZETIA) 10 mg tablet Take 1 tablet by mouth once daily. - mirabegron (MYRBETRIQ) 50 mg Tb24 Take 25 mg by mouth once daily. - albuterol HFA (PROVENTIL HFA, VENTOLIN HFA) 90 mcg/actuation inhaler Inhale 2 Puffs as instructed every 4 hours as needed. Meds Comments as of 09/16/2023: Unsure of medications recent change Problem List As Of Date 09/15/2023 Noted Resolved Unspecified sleep apnea [G47.30] MIGRAINE NEC [346.8] LOC PRIM OSTEOART-L/LEG [M17.10] ESOPHAGEAL REFLUX [K21.9] 11/03/2005 DIFFUS CYSTIC MASTOPATHY [N60.19] 11/03/2005 ALLERGIC RHINITIS NOS [J30.9] 09/30/2007 Rotator cuff syndrome [M75.100] 02/12/2009 04/10/2014 Overactive bladder [N32.81] 02/12/2009 Asthma [J45.909] 03/11/2010 Diarrhea [R19.7] 06/21/2011 04/10/2014 Hyperlipidemia [E78.5] 04/26/2012 04/10/2014 Elevated CK [R74.8] 04/26/2012 04/10/2014 Supraspinatus tendonitis [M75.90] 12/06/2012 04/10/2014 Impingement syndrome of right shoulder [M75.41] 06/06/2013 04/10/2014 Cervical disc disease [M50.90] 06/06/2013 Right rotator cuff tear [M75.101] 06/28/2013 04/10/2014 Mixed incontinence [N39.46] 04/23/2015 Rotator cuff strain [S46.019A] 04/23/2015 05/18/2017 Hyperlipidemia LDL goal <100 [E78.5] 11/12/2015 Arthritis of both hands [M19.041, M19.042] 05/05/2016 Impingement syndrome of right shoulder [M75.41] 10/11/2016 05/18/2017 Tear of biceps tendon [S46.219A] 05/18/2017 02/16/2023 Irritable bowel syndrome with diarrhea [K58.0] 05/31/2018 Situational depression [F43.21] 05/31/2018 02/16/2023 Statin intolerance [Z78.9] 07/03/2018 OPENED IN ERROR 10/13/2018 02/03/2022 Special screening examination for viral disease*02/03/2022 02/03/2022 Hypothyroidism, acquired [E03.9] 08/04/2022 Dementia without behavioral disturbance (HCC) [*10/11/2022 02/16/2023 Depression, recurrent (HCC) [F33.9] 10/11/2022 Imbalance [R26.89] 10/11/2022 02/16/2023 Balance disorder [R26.89] 11/15/2022 Falls frequently [R29.6] 11/15/2022 Numbness and tingling of both feet [R20.0, R20.*11/15/2022 Cough [R05.9] 11/23/2022 02/16/2023 Mild intermittent asthma, uncomplicated [J45.20]11/23/2022 Acute pain of left shoulder [M25.512] 11/29/2022 02/16/2023 Closed head injury [S09.90XA] 11/18/2021 Contusion of forehead [S00.83XA] 11/18/2021 02/16/2023 Fall [W19.XXXA] 02/16/2023 02/16/2023 Fracture of skull (HCC) [S02.91XA] 02/16/2023 02/16/2023 Laceration [[id number]] 06/22/2022 Arthritis [M19.90] 02/16/2023 History of skull fracture [Z87.81] 02/16/2023 RALEIGH (acute kidney injury) (HCC) [N17.9] 08/20/2023 Odontoid fracture (HCC) [S12.110A] 08/20/2023 Obesity, Class I, BMI 30-34.9 [E66.9] 09/12/2023 Encounter Status:Closed by MARTÍNEZ KESSLER on 09/26/23 [facility] AP and Lat eralon 09-15-2023 IMPRESSION: Cervical spine degenerative changes from multilevel disc space narrowing. 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DIEGO Transcribe Date/Time: Sep 15 2023 3:35P Dictated by : SUSANA HERNANDEZ MD This examination was interpreted and the report reviewed and electronically signed by: SUSANA HERNANDEZ MD on Sep 15 2023 3:45PM [facility] DIVISION OF RADIOLOGY * * *Final Report* * * DATE OF EXAM: Sep 12 2023 10:53AM WOX [id number] - XR CERVICAL 2V AP/LAT / PROCEDURE REASON: Closed nondisplaced odontoid fracture with type II morphology and nonunion, subs * * * * Physician Interpretation * * * * EXAM TITLE: XR CERVICAL 2V AP/LAT EXAM DATE/TIME: 09/12/2023 10:53 AM COMPARISON: X-ray cervical spine on 06/06/2013 CLINICAL INDICATION/HISTORY: Closed fracture. TECHNIQUE: AP, lateral and swimmer's views of the cervical spine are presented. FINDINGS: No acute fractures seen. There is grade 1 C4 on C5 anterolisthesis. C5-6 and C6-7 disc space narrowing is demonstrated. There is at least moderate osteophyte formation, with facet arthrosis. The prevertebral soft tissues are normal. 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 TECHNIQUE: AP, lateral and swimmer's views of the cervical spine are presented. FINDINGS: No acute fractures seen. There is grade 1 C4 on C5 anterolisthesis. C5-6 and C6-7 disc space narrowing is demonstrated. There is at least moderate osteophyte formation, with facet arthrosis. The prevertebral soft tissues are normal. IMPRESSION IMPRESSION: Cervical spine degenerative changes from multilevel disc space narrowing. 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DIEGO Transcribe Date/Time: Sep 15 2023 3:35P Dictated by : SUSANA HERNANDEZ MD This examination was interpreted and the report reviewed and electronically signed by: SUSANA HERNANDEZ MD on Sep 15 2023 3:45PM [facility] XR Cervical spine AP and Lat eralOrdered By: Ccf Provider on 09-15-2023 [facility] Basic metabolic 2000 panelon 09-12-2023 Anion gap [Moles/Vol] 12 mmol/L 9 - 18 mmol/L [facility] Calcium [Mass/Vol] 9.8 mg/dL 8.5 - 10. 2 mg/dL [facility] Chloride [Moles/Vol] 102 mmol/L 97 - 10 5 mmol/L [facility] CO2 [Moles/Vol] 25 mmol/L 22 - 30 mmol/L [facility] Creatinine [Mass/Vol] 1.09 mg/dL High 0.58 - 0.96 mg/dL [facility] GFR/1.73 sq M.predicted among non-blacks MDRD (S/P/Bld) [Vol rate/Area] 51 mL/min/{1.73_m2} Low - PINF [facility] Comment on above: Estimated Glomerular Filtration Rate (eGFR) is calculated using the 2020 CKD-EPI creatinine equation. This equation utilizes serum creatinine, sex, and age as parameters. The creatinine assay has traceable calibration to isotope dilution-mass spectrometry. Refer to KDIGO guidelines for clinical interpretation. In patients with unstable renal function, e.g. those with acute kidney injury, the eGFR may not accurately reflect actual GFR. Glucose [Mass/Vol] 104 mg/dL High 74 - 99 mg/dL [facility] Comment on above: The [place] Diab[employer] Association (ADA) provides guidance for cutoff values for fasting glucose and random glucose. The ADA defines fasting as no caloric intake for at least 8 hours. Fasting plasma glucose results between 100 to 125 mg/dL indicate increased risk for diabetes (prediabetes). Fasting plasma glucose results greater than or equal to 126 mg/dL meet the criteria for diagnosis of diabetes. In the absence of unequivocal hyperglycemia, results should be confirmed by repeat testing. In a patient with classic symptoms of hyperglycemia or hyperglycemic crisis, random plasma glucose results greater than or equal to 200 mg/dL meet the criteria for diagnosis of diabetes. Reference: Standards of Medical Care in Diabetes 2016, [place] [employer]. Diabetes Care. 2016.39(Suppl 1). Interpretation and review of laboratory results Abnormal [facility] Potassium [Moles/Vol] 4.5 mmol/L 3.7 - 5.1 mmol/L [facility] Sodium [Moles/Vol] 139 mmol/L 136 - 144 mmol/L [facility] Urea nitrogen [Mass/Vol] 17 mg/dL 7 - 21 mg/d L [facility] CBC W Auto Differential pane l (Bld)on 09-12-2023 Basophils (Bld) [#/Vol] 0.06 10*3/uL [facility] Basophils/100 WBC (Bld) 0.5 % C [facility] Differential cell count method Nom (Bld) Auto [facility] Eosinophils (Bld) [#/Vol] 0.15 10*3/uL [facility] Eosinophils/100 WBC (Bld) 1.3 % [facility] Erythrocyte distribution width (RBC) [Ratio] 13.1 % 11.5 - 15.0 % [facility] Hematocrit (Bld) [Volume fraction] 42.9 % 36.0 - 46.0 % [facility] Hemoglobin (Bld) [Mass/Vol] 13.6 g/dL 11.5 - 15.5 g/dL [facility] Immature granulocytes (Bld) [#/Vol] 0.04 10*3/uL [facility] Immature granulocytes/100 WBC (Bld) 0.3 % [facility] Interpretation and review of laboratory results Abnormal [facility] Lymphocytes (Bld) [#/Vol] 2.67 10*3/uL [facility] Lymphocytes/100 WBC (Bld) 22.3 % [facility] MCH (RBC) [Entitic mass] 29.5 pg 26. 0 - 34.0 pg [facility] MCHC (RBC) [Mass/Vol] 31.7 g/dL 30.5 - 36.0 g/dL [facility] MCV (RBC) [Entitic vol] 93.1 fL 80.0 - 100.0 fL [facility] Monocytes (Bld) [#/Vol] 0.89 10*3/uL High [facility] Monocytes/100 WBC (Bld) 7.4 % C [facility] Neutrophils (Bld) [#/Vol] 8.18 10*3/uL High [facility] Neutrophils/100 WBC (Bld) 68.2 % [facility] Nucleated RBC (Bld) [#/Vol] [facility] Nucleated RBC/100 WBC (Bld) [Ratio] 0.0 % /100 WBC [facility] Platelet mean volume (Bld) [Entitic vol] 10.3 fL 9.0 - 12.7 fL [facility] Platelets (Bld) [#/Vol] 362 10*3/uL [facility] RBC (Bld) [#/Vol] 4.61 10*6/uL 3.90 - 5.2 0 m/uL [facility] WBC (Bld) [#/Vol] 11.99 10*3/uL High [facility] XR Cervical spine AP and Lat eralon 09-12-2023 Radiology Study [facility]narrative[facility] Discharge Instructionon 05-0 Discharge Instruction [facility] Medical Records Department [address] [place] [address] Instructions for Home/Discharge Instructions 09/07/23 1055 MR#: [id number] Acct: [id number] Name: GEORGINA SEGURA Rep #: [id number] : 1945 78 From: Marina Gotti DO PCP: Dr. Dinah Melgar MD Status:ADM IN Discharge Instructions Diet Discharge Diet: - (Low fat, low salt) Activity Discharge Activity: Return to Normal Activity Weight Bearing Status: Full weight bearing Keep extremity elevated above heart level: Legs Dressing / Incision Call your doctor if you observe: Fever of 101 or Higher, Inability to urinate, Shortness of breath, Dizziness, Fainting spells, Swelling in the ankles, Chest pain, Increased palpitations (irregular heartbeat), Calf discomfort and Uncontrolled pain Follow Up Care Please Follow Up With: Dinah Melgar MD When: Has an appt scheduled for near future. Test Results: Test results from this visit will be discussed in further detail at your follow-up appointment, if applicable. Pending Tests Upon Discharge: none Discharge Plan Admission Admit Date/Time: 08/23/23 15:33 Primary Reason for Your Visit: Debility due to fall with fracture of the Dens. Attending Provider: Marina Gotti Primary Care Provider: Dinah Melgar Instructions Patient Instructions: What Are Snoring and Sleep Apnea?, Preventing Falls in the Home, Exercises to Prevent Falls Additional Instructions / Restrictions: 1. You have done very well in therapy! In order to maintain your stability with walking and strength you should start a regular exercise program at home. I have given you some printed information on an exercise program and The therapists have also talked with you about exercises to do once you are home. If you are not active and you sit around a lot then you will lose your strength and this will lead to more falls. You must USE IT OR LOSE IT Marina! This is especially important for you because I know you want to stay in your home and not have to go to a nursing facility. Falls lead to fractures and fractures lead to surgeries and increased disability. I have given you some information on how to prevent falls in the home. 2. There are a few things that have been contributing to memory loss besides dementia. Other things that contribute to loss of memory include an underactive thyroid, untreated sleep apnea, depression and lack of socialization. You were not taking quite enough thyroid supplement and we have increased the dose. Dr. Melgar will want to recheck your thyroid lab tests in another 4-6 weeks to make sure that you are on an appropriate dose. Over time the dose can change. Your oxygen was lower than it should be 30% of the time when you were sleeping. When the oxygen drops that low your brain wakes you up to take a deep breath and you don't get into stage 4 sleep (also called REM sleep). This causes chronic sleep deprivation and can lead to problems with the rhythm of your heart, strokes, restless legs, daytime sleepiness/napping, memory loss, etc. You became much more alert and able to remember from one day to the next what the therapists were telling you to do. We ALL noticed a big difference after you were on the oxygen at night for a few days. You will have a sleep study the night you are discharged from rehab and then follow up with the pulmonary doctor to discuss the results of the sleep study. 3. I don't think your dementia is as bad as everyone thought. I think it is a good idea for your daughter to continue setting up your medications for you and your son continues to manage your finances. I would recommend following up with a neurologist for some testing and recommendations on medications. I stopped the Aricept (donepezil) while you were on rehab. I stopped it to see if the Nausea and vomiting would resolve. GI upset is one of the most frequent side effects of that medication. If the neurologist thinks you need to be on Aricept prehaps you will tolerate a lower dose (like 5 mg a day). I also decreased the dose of Prozac because up to 29% of patients have nausea with Prozac. Fortunately with the changes in the medication the nausea and vomiting have gone away. You are taking 20 mg of Prozac daily now and your mood is good. You do get anxious and this is very common in the elderly, ayush those living alone. When you get anxious your BP increases significantly and we have had to start you on a BP pill. You worry about being alone, about having enough money to live on, about losing your memory and having to live in a chcf, about your children and your grandchildren, about people trying to cheat you and take advantage of you and the list goes on. I have started you on a medication called Buspar. this medication treats only anxiety and it is not addictive. You take just take when you think you need it.....you have to t (more content not included)... Normal [facility] Basic Metabolic Profile (BMP )on 09-05-2023 BUN/CRE 15.4 RATIO Normal 10-20 [facility] Comment on above: Performed By: #### L 501.9520, L501.9985, L501.5200 #### [facility] [address] [place], [address] CA,Total 9.4 mg/dL Normal 8.5-10.1 [facility] Comment on above: Performed By: #### L [id number], L501.9985, L501.5200 #### [facility] [address] [place], [address] Chloride [Moles/Vol] 104 mmol/L Normal 98-107 [facility] Comment on above: Performed By: #### L [id number], L501.9985, L501.5200 #### [facility] [address] [place], [address] CO2 [Moles/Vol] 30.0 mmol/L Normal 21.0-32.0 [facility] Comment on above: Performed By: #### L [id number], L501.9985, L501.5200 #### [facility] [address] [place], [address] Creatinine [Mass/Vol] 1.30 mg/dL High 0.55-1.02 [facility] Comment on above: Result Comment: The validity of the calculated GFR GFRAA in patients over 70 years has not been determined. Clinical correlation is essential. Performed By: #### L [id number], L501.9985, L501.5200 #### [facility] [address] [place], [address] ECRCL 35.00 ml/min Normal [facility] Comment on above: Performed By: #### L [id number], L501.9985, L501.5200 #### [facility] [address] [place], [address] EST GFR - AA 51 mL/min Low >60 [facility] Comment on above: Result Comment: Afri can [place] GFR Calc Performed By: #### L [id number], L501.9985, L501.5200 #### [facility] [address] [place], [address] GAP 4 Low 5-15 [facility] Comment on above: Performed By: #### L [id number], [id number], L501.5200 #### [facility] [address] [place], [address] GFR/1.73 sq M.predicted among non-blacks MDRD (S/P/Bld) [Vol rate/Area] 42 mL/min/{1.73_m2} Low >60 [facility] Comment on above: Result Comment: Non- GFR Calc Performed By: #### L [id number], L501.9985, L501.5200 #### [facility] [address] [place], [address] Glucose [Mass/Vol] 98 mg/dL Normal 74-106 [facility] Comment on above: Performed By: #### L [id number], [id number], L501.5200 #### [facility] [address] [place], [address] Potassium [Moles/Vol] 4.4 mmol/L Normal 3.5-5.1 [facility] Comment on above: Performed By: #### L [id number], [id number], L501.5200 #### [facility] [address] [place], [address] Sodium [Moles/Vol] 138 mmol/L Normal 136-145 [facility] Comment on above: Performed By: #### L [id number], [id number], L501.5200 #### [facility] [address] [place], [address] Urea nitrogen [Mass/Vol] 20 mg/dL High 7-18 [facility] Comment on above: Performed By: #### L [id number], [id number], L501.5200 #### [facility] [address] [place], [address] Basophil percentageOrdered B y: Marina Gotti on 09-05-2023 Chloride [Moles/Vol] 104 mmol/L 98-107 [facility] Glucose [Mass/Vol] 98 mg/dL 74-106 [facility] Potassium [Moles/Vol] 4.4 mmol/L 3.5-5.1 [facility] Sodium [Moles/Vol] 138 mmol/L 136-145 [facility] - Chemistry and C hemistry - challengeOrdered By: Marina Gotti on 09-05-2023 CO2 [Moles/Vol] 30.0 mmol/L 21.0-32.0 [facility] Urea nitrogen/Creatinine [Mass ratio] 15.4 mg/mg 10-20 [facility] No Panel InformationOrdered By: Marina Gotti on 09-05-2023 Estimated Creatinine Clearance Calc 35.00 ml/min [facility] Estimated GFR (MDRD) Amer 51 mL/min >60 [facility] Comment on above: GFR Calc Estimated GFR (MDRD) Non-Af Amer 42 mL/min >60 [facility] Comment on above: Non- GFR Calc Serum or plasma calcium stephanie urement (mass/volume)Ordered By: Marina Gotti on 09-05-2023 Calcium [Mass/Vol] 9.4 mg/dL 8.5-10.1 [facility] Serum or plasma creatinine m easurement (mass/volume)Ordered By: Marina Gotti on 09-05-2023 Creatinine [Mass/Vol] 1.30 mg/dL 0.55-1.02 [facility] Comment on above: The validity of the calculated GFR & GFRAA in patients over 70 years has not been determined. Clinical correlation is essential. Serum or plasma urea nitroge n measurement (mass/volume)Ordered By: Marina Gotti on 09-05-2023 Urea nitrogen [Mass/Vol] 20 mg/dL 7-18 [facility] Thin prep Papanicolaou smear with manual screeningOrdered By: Marina Gotti on 09-05-2023 Thin prep Papanicolaou smear with manual screening 4 5-15 [facility] Basophil percentageOrdered B y: Marina Gotti on 08-29-2023 Basophil percentage 0 SEEN /hpf 0-5 [facility] Bilirubin Test strip Ql (U)O rdered By: Marina Gotti on 08-29-2023 Bilirubin Ql (U) Negative Negative [facility] Ketones Test strip Ql (U)Ord ered By: Marina Gotti on 08-29-2023 Ketones Ql (U) Negative Negative [facility] Mucus LM Ql (Urine sed)Order ed By: Marina Gotti on 08-29-2023 Mucus Ql (Urine sed) 0 SEEN /hpf [facility] Nitrite Test strip Ql (U)Ord ered By: Marina Gotti on 08-29-2023 Nitrite Ql (U) Negative Negative [facility] No Panel InformationOrdered By: Marina Gotti on 08-29-2023 Urine RBC 0 SEEN /hpf 0-5 [facility] Protein Test strip Ql (U)Ord ered By: Marina Gotti on 08-29-2023 Protein Ql (U) Negative Negative [facility] Squamous epithelial cells de tection in urine sediment by light microscopyOrdered By: Marina Gotti on 08-29-2023 Epithelial cells.squamous LM Ql (Urine sed) 0 SEEN /hpf 5-10 [facility] Urine blood detectionOrdered By: Marina Gotti on 08-29-2023 RBC Ql (U) Negative Negative [facility] Urine clarityOrdered By: Frances rasmussen Shen on 08-29-2023 Clarity (U) Clear Clear [facility] Urine color determinationOrd ered By: Marina Shen on 08-29-2023 Color (U) Yellow Yellow [facility] Urine glucose detectionOrder ed By: Marina Shen on 08-29-2023 Glucose Ql (U) Normal mg/dl Normal [facility] Urine leukocyte esterase det ection by dipstickOrdered By: Marina Gotti on 08-29-2023 Leukocyte esterase Test strip Ql (U) Negative Negative [facility] Urine pHOrdered By: Marina duncan on 08-29-2023 pH (U) 7.0 [pH] 5.0 - 8.0 [facility] Urine sediment bacteria coun t by microscopy (number/high power field)Ordered By: Marina Shen on 08-29-2023 Bacteria LM.HPF (Urine sed) [#/Area] 0 /[HPF] None Seen [facility] Urine specific gravity measu rementOrdered By: Marina Shen on 08-29-2023 Specific gravity (U) [Rel density] 1.010 1.002-1.030 [facility] Urine urobilinogen measureme ntOrdered By: Marina Gotti on 08-29-2023 Urobilinogen Ql (U) Normal mg/dl Normal [facility] Absolute lymphocyte countOrd ered By: Marina Shen on 08-24-2023 Lymphocytes Auto (Unsp spec) [#/Vol] 1.94 10*3/uL 0.83-4.51 [facility] Automated lymphocyte count a s percentage of total leukocytesOrdered By: Marina Gotti on 08-24-2023 Lymphocytes/100 WBC Auto (Unsp spec) 30.2 % 19-41 [facility] Basophil percentageOrdered B y: Marina Gotti on 08-24-2023 Basophil percentage 4.3 mg/dL 2.5-4.9 [facility] Basophils/100 WBC (Bld) 0.5 % 0-1 [facility] Bilirubin [Mass/Vol] 0.40 mg/dL 0.20-1.00 [facility] Comment on above: For patients on eltr ombopag therapy, use of Dimension [place] TBIL is not recommended. Eosinophils/100 WBC (Bld) 2.6 % 0-5 [facility] Hemoglobin (Bld) [Mass/Vol] 13.7 g/dL 12.0-15.0 [facility] Monocytes/100 WBC (Bld) 9.6 % 0-10 [facility] Neutrophils (Bld) [#/Vol] 3.6 10*3/uL 2.0-7.7 [facility] Neutrophils/100 WBC (Bld) 56.6 % 47-70 [facility] Protein [Mass/Vol] 6.9 g/dL 6.4-8.2 [facility] WBC (Bld) [#/Vol] 6.4 10*3/uL 4.4-11.0 [facility] Determination of erythrocyte mean corpuscular volume (MCV)Ordered By: Marina Gotti on 08-24-2023 MCV (RBC) [Entitic vol] 90.6 fL 81-99 [facility] Erythrocyte distribution wid th ratioOrdered By: Marina Gotti on 08-24-2023 Erythrocyte distribution width (RBC) [Ratio] 12.7 % 11.6-14.6 [facility] Erythrocyte distribution wid th standard deviationOrdered By: Marina Gotti on 08-24-2023 Erythrocyte distribution width (RBC) [Entitic vol] 41.7 fL 35.1-43.9 [facility] Hematocrit Auto (Bld) [Volum e fraction]Ordered By: Marina Gotti on 08-24-2023 Hematocrit (Bld) [Volume fraction] 42.3 % 37-47 [facility] Immature granulocytes/100 WB C Auto (Bld)Ordered By: Marina Gotti on 08-24-2023 Immature granulocytes/100 WBC (Bld) 0.500 % 0.0-0.9 [facility] Comment on above: IG% - Immature Granu locytes (promyelocytes, myelocytes and metamyelocytes) > 1% indicates that a LEFT SHIFT is Present. Laboratory - Chemistry and C hemistry - challengeOrdered By: Marina Gotti on 08-24-2023 Albumin/Globulin [Mass ratio] 1.0 {ratio} 0.9-2.4 [facility] ALP [Catalytic activity/Vol] 118 U/L 45-117 [facility] ALT [Catalytic activity/Vol] 22 U/L 13-56 [facility] Globulin (S) [Mass/Vol] 3.5 g/dL 2.2-4.2 [facility] Lipase [Catalytic activity/Vol] 50 U/L 13-75 [facility] Comment on above: Please note:LIPASE r evised reference range effective 22. New Lipase methodology. Expected to produce lower values than the previous assay method. NEW Reference Range: 13 - 75 U/L Magnesium [Mass/Vol] 2.3 mg/dL 1.6-2.6 [facility] Laboratory - Hematology and Cell countsOrdered By: Marina Gotti on 08-24-2023 MCH (RBC) [Entitic mass] 29.3 pg 27.0-32.0 [facility] MCHC (RBC) [Mass/Vol] 32.4 g/dL 32-36 [facility] Nucleated RBC/100 WBC (Bld) [Ratio] 0 % 0-5 [facility] Platelet mean volume (Bld) [Entitic vol] 9.5 fL 6.2-12.0 [facility] Platelets (Bld) [#/Vol] 274 10*3/uL 150-450 [facility] Lower GI hemoglobin IA Ql (S tl)Ordered By: Marina Gotti on 08-24-2023 Stool Occult Blood (STEFANY) Positive [facility] RBC Auto (Bld) [#/Vol]Ordere d By: Marina Gotti on 08-24-2023 RBC (Bld) [#/Vol] 4.67 10*6/uL 4.2-5.4 [facility] Serum or plasma thyroid stim ulating hormone (TSH) measurement (units/volume)Ordered By: Marina Gotti on 08-24-2023 TSH Qn 10.60 uIU/mL 0.358-3.74 [facility] Thin prep Papanicolaou smear with manual screeningOrdered By: Marina Shen on 08-24-2023 Thin prep Papanicolaou smear with manual screening 3.4 g/dL 3.2-5.0 [facility] Thin prep Papanicolaou smear with manual screening 22 U/L 15-37 [facility] Whole blood hemoglobin A1c/t otal hemoglobin ratio (mass fraction)Ordered By: Marina Shen on 08-24-2023 HbA1c (Bld) [Mass fraction] 5.7 % 3.8-5.6 [facility] Comment on above: Normal < 5.7 % Predi abetic 5.7 - 6.4 % Diabetic >or= 6.5 % Please note range changes. Absolute lymphocyte countOrd ered By: Quentin Mckeon on 08-20-2023 Lymphocytes Auto (Unsp spec) [#/Vol] 2.55 10*3/uL 0.83-4.51 [facility] Automated lymphocyte count a s percentage of total leukocytesOrdered By: Quentin Mckeon on 08-20-2023 Lymphocytes/100 WBC Auto (Unsp spec) 31.6 % 19-41 [facility] Basophil percentageOrdered B y: Quentin Mckeon on 08-20-2023 Basophils/100 WBC (Bld) 0.9 % 0-1 [facility] Chloride [Moles/Vol] 106 mmol/L 98-107 [facility] Eosinophils/100 WBC (Bld) 3.3 % 0-5 [facility] Glucose [Mass/Vol] 140 mg/dL 74-106 [facility] Comment on above: Fasting Glucose resu lt greater than or equal to 126 mg/dL suggests DIABETES MELLITUS per A.D.A. criteria. Hemoglobin (Bld) [Mass/Vol] 14.6 g/dL 12.0-15.0 [facility] Monocytes/100 WBC (Bld) 5.9 % 0-10 [facility] Neutrophils (Bld) [#/Vol] 4.7 10*3/uL 2.0-7.7 [facility] Neutrophils/100 WBC (Bld) 57.7 % 47-70 [facility] Potassium [Moles/Vol] 3.8 mmol/L 3.5-5.1 [facility] Sodium [Moles/Vol] 138 mmol/L 136-145 [facility] WBC (Bld) [#/Vol] 8.1 10*3/uL 4.4-11.0 [facility] Determination of erythrocyte mean corpuscular volume (MCV)Ordered By: Quentin Mckeon on 08-20-2023 MCV (RBC) [Entitic vol] 92.2 fL 81-99 [facility] Erythrocyte distribution wid th ratioOrdered By: Quentin Mckeon on 08-20-2023 Erythrocyte distribution width (RBC) [Ratio] 12.9 % 11.6-14.6 [facility] Erythrocyte distribution wid th standard deviationOrdered By: Quentin Mckeon on 08-20-2023 Erythrocyte distribution width (RBC) [Entitic vol] 43.3 fL 35.1-43.9 [facility] Hematocrit Auto (Bld) [Volum e fraction]Ordered By: Quentin Mckeon on 08-20-2023 Hematocrit (Bld) [Volume fraction] 45.8 % 37-47 [facility] Immature granulocytes/100 WB C Auto (Bld)Ordered By: Quentin Mckeon on 08-20-2023 Immature granulocytes/100 WBC (Bld) 0.600 % 0.0-0.9 [facility] Comment on above: IG% - Immature Granu locytes (promyelocytes, myelocytes and metamyelocytes) > 1% indicates that a LEFT SHIFT is Present. Laboratory - Chemistry and C hemistry - challengeOrdered By: Quentin Mckeon on 08-20-2023 CO2 [Moles/Vol] 27.0 mmol/L 21.0-32.0 [facility] Urea nitrogen/Creatinine [Mass ratio] 21.0 mg/mg 10-20 [facility] Laboratory - CoagulationOrde red By: Quentin Mckeon on 08-20-2023 INR Coag (Bld) [Relative time] 0.9 {INR} [facility] PT Coag (PPP) [Time] 12.5 s 11.7-14.9 [facility] Laboratory - Hematology and Cell countsOrdered By: Quentin Mckeon on 08-20-2023 MCH (RBC) [Entitic mass] 29.4 pg 27.0-32.0 [facility] MCHC (RBC) [Mass/Vol] 31.9 g/dL 32-36 [facility] Nucleated RBC/100 WBC (Bld) [Ratio] 0 % 0-5 [facility] Platelet mean volume (Bld) [Entitic vol] 10.3 fL 6.2-12.0 [facility] Platelets (Bld) [#/Vol] 345 10*3/uL 150-450 [facility] No Panel InformationOrdered By: Quentin Mckeon on 08-20-2023 Estimated Creatinine Clearance Calc 34.49 ml/min [facility] Estimated GFR (MDRD) Amer 47 mL/min >60 [facility] Comment on above: GFR Calc Estimated GFR (MDRD) Non-Af Amer 39 mL/min >60 [facility] Comment on above: Non- GFR Calc RBC Auto (Bld) [#/Vol]Ordere d By: Quentin Mckeon on 08-20-2023 RBC (Bld) [#/Vol] 4.97 10*6/uL 4.2-5.4 [facility] Serum or plasma calcium stephanie urement (mass/volume)Ordered By: Quentin Mckeon on 08-20-2023 Calcium [Mass/Vol] 8.9 mg/dL 8.5-10.1 [facility] Serum or plasma creatinine m easurement (mass/volume)Ordered By: Quentin Mckeon on 08-20-2023 Creatinine [Mass/Vol] 1.38 mg/dL 0.55-1.02 [facility] Comment on above: The validity of the calculated GFR & GFRAA in patients over 70 years has not been determined. Clinical correlation is essential. Serum or plasma urea nitroge n measurement (mass/volume)Ordered By: Quentin Mckeon on 08-20-2023 Urea nitrogen [Mass/Vol] 29 mg/dL 7-18 [facility] Thin prep Papanicolaou smear with manual screeningOrdered By: Quentin Mckeon on 08-20-2023 Thin prep Papanicolaou smear with manual screening 5 5-15 [facility] CBC W Auto Differential pane l (Bld)on 06-13-2023 Basophils (Bld) [#/Vol] 0.06 10*3/uL <0.11 k/uL [facility] Basophils/100 WBC (Bld) 0.8 % [facility] Differential cell count method Nom (Bld) Auto [facility] Eosinophils (Bld) [#/Vol] 0.24 10*3/uL <0.46 k/uL [facility] Eosinophils/100 WBC (Bld) 3.2 % [facility] Erythrocyte distribution width (RBC) [Ratio] 13.0 % 11.5 - 15.0 % [facility] Hematocrit (Bld) [Volume fraction] 48.9 % High 36.0 - 46.0 % [facility] Hemoglobin (Bld) [Mass/Vol] 15.3 g/dL 11.5 - 15.5 g/dL [facility] Immature granulocytes (Bld) [#/Vol] <0.10 k/uL [facility] Immature granulocytes/100 WBC (Bld) 0.3 % [facility] Lymphocytes (Bld) [#/Vol] 2.31 10*3/uL 1.00 - 4.00 k/uL [facility] Lymphocytes/100 WBC (Bld) 30.5 % [facility] MCH (RBC) [Entitic mass] 29.3 pg 26. 0 - 34.0 pg [facility] MCHC (RBC) [Mass/Vol] 31.3 g/dL 30.5 - 36.0 g/dL [facility] MCV (RBC) [Entitic vol] 93.7 fL 80.0 - 100.0 fL [facility] Monocytes (Bld) [#/Vol] 0.62 10*3/uL <0.87 k/uL [facility] Monocytes/100 WBC (Bld) 8.2 % [facility] Neutrophils (Bld) [#/Vol] 4.33 10*3/uL 1.45 - 7.50 k/uL [facility] Neutrophils/100 WBC (Bld) 57.0 % [facility] Nucleated RBC (Bld) [#/Vol] <0.01 k/uL [facility] Nucleated RBC/100 WBC (Bld) [Ratio] 0.0 /100 WBC [facility] Platelet mean volume (Bld) [Entitic vol] 10.6 fL 9.0 - 12.7 fL [facility] Platelets (Bld) [#/Vol] 324 10*3/uL 150 - 400 k/uL [facility] RBC (Bld) [#/Vol] 5.22 10*6/uL High 3.90 - 5.2 0 m/uL [facility] WBC (Bld) [#/Vol] 7.58 10*3/uL 3.70 - 11. 00 k/uL [facility] XR Shoulder - left 3 Viewson 11-25-2022 IMPRESSION: No acute osseous abnormality. 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[employer] Transcribe Date/Time: Nov 25 2022 5:04P Dictated by : YAZAN VARMA MD This examination was interpreted and the report reviewed and electronically signed by: YAZAN VARMA MD on Nov 25 2022 5:06PM [facility] DIVISION OF RADIOLOGY * * *Final Report* * * DATE OF EXAM: Nov 23 2022 9:51AM WOX 5252 - XR SHLDR >/=3V AP/PRETTY AP/OTHR LT / PROCEDURE REASON: Acute pain of left shoulder * * * * Physician Interpretation * * * * EXAMINATION: XR SHLDR >/=3V AP/PRETTY AP/OTHR LT CLINICAL HISTORY: Left shoulder pain Technique: XR SHLDR >/=3V AP/PRETTY AP/OTHR LT -- LEFT with 3 views on 3 images Comparison: None RESULT: No acute fracture or dislocation. Joint spaces are maintained. DIVISION OF RADIOLOGY Provider, [facility] - 11/25/2022 * * *Final Report* * * DATE OF EXAM: Nov 23 2022 9:51AM WOX 5252 - XR SHLDR >/=3V AP/PRETTY AP/OTHR LT / PROCEDURE REASON: Acute pain of left shoulder * * * * Physician Interpretation * * * * EXAMINATION: XR SHLDR >/=3V AP/PRETTY AP/OTHR LT CLINICAL HISTORY: Left shoulder pain Technique: XR SHLDR >/=3V AP/PRETTY AP/OTHR LT -- LEFT with 3 views on 3 images Comparison: None RESULT: No acute fracture or dislocation. Joint spaces are maintained. IMPRESSION IMPRESSION: No acute osseous abnormality. 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[employer] Transcribe Date/Time: Nov 25 2022 5:04P Dictated by : YAZAN VARMA MD This examination was interpreted and the report reviewed and electronically signed by: YAZAN VARMA MD on Nov 25 2022 5:06PM EST [facility] XR Shoulder - left 3 ViewsOr dered By: Ccf Provider on 11-25-2022 [facility] XR Shoulder - left 3 Viewson 11-23-2022 Radiology Study observation (narrative) Anthony gardner [facility] XR Chest PA and Lateralon IMPRESSION: No developing abnormality or acute process 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DIEGO Transcribe Date/Time: Oct 12 2022 9:53A Dictated by : BELINDA CARDENAS MD This examination was interpreted and the report reviewed and electronically signed by: BELINDA CARDENAS MD on Oct 12 2022 9:54AM EST DIVISION OF RADIOLOGY * * *Final Report* * * DATE OF EXAM: Oct 11 2022 3:03PM WOX 5291 - XR CHEST 2V FRONTAL/LAT / PROCEDURE REASON: Acute cough * * * * Physician Interpretation * * * * EXAMINATION: CHEST RADIOGRAPH (2 VIEW FRONTAL & LATERAL) CLINICAL HISTORY: Acute cough MQ: XC2_6 EXAM DATE/TIME: 10/11/2022 3:03 PM COMPARISON: 02/16/2021 and 04/10/2014 RESULT: Lines, tubes, and devices: None. Lungs and pleura: No consolidation. No lung mass. No pleural effusion. No pneumothorax. Minimal stable atelectasis or fibrosis at the left base Cardiomediastinal silhouette: Normal cardiomediastinal silhouette. Bones and soft tissues: Unremarkable. DIVISION OF RADIOLOGY Provider, [facility] - 10/12/2022 * * *Final Report* * * DATE OF EXAM: Oct 11 2022 3:03PM WOX 5291 - XR CHEST 2V FRONTAL/LAT / PROCEDURE REASON: Acute cough * * * * Physician Interpretation * * * * EXAMINATION: CHEST RADIOGRAPH (2 VIEW FRONTAL & LATERAL) CLINICAL HISTORY: Acute cough MQ: XC2_6 EXAM DATE/TIME: 10/11/2022 3:03 PM COMPARISON: 02/16/2021 and 04/10/2014 RESULT: Lines, tubes, and devices: None. Lungs and pleura: No consolidation. No lung mass. No pleural effusion. No pneumothorax. Minimal stable atelectasis or fibrosis at the left base Cardiomediastinal silhouette: Normal cardiomediastinal silhouette. Bones and soft tissues: Unremarkable. 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[employer] Transcribe Date/Time: Oct 12 2022 9:53A Dictated by : BELINDA CARDENAS MD This examination was interpreted and the report reviewed and electronically signed by: BELINDA CARDENAS MD on Oct 12 2022 9:54AM EST [facility] XR Chest PA and LateralOrder ed By: Ccf Provider on 10-12-2022 [facility] Influenza virus A and B RNA and SARS-CoV-2 (COVID-19) N gene panel VIKRAM+probe (Resp)on 10-11-2022 FLUAV RNA VIKRAM+probe Ql (Unsp spec) Not detected Not Detected [facility] FLUBV RNA VIKRAM+probe Ql (Unsp spec) Not detected Not Detected [facility] SARS-CoV-2 (COVID-19) RNA VIKRAM+probe Ql (Resp) Not detected See comment [facility] XR Chest PA and Lateralon Radiology Study observation (narrative) [facility] Basophil percentageOrdered B y: Dr. Gomez on 09-09-2022 Creatinine [Mass/Vol] 1.1 mg/dL 0.55-1.02 [facility] Laboratory - Chemistry and C hemistry - challengeOrdered By: Dr. Gomez on 09-09-2022 GFR/1.73 sq M.predicted among non-blacks MDRD (S/P/Bld) [Vol rate/Area] 51.0000 mL/min/{1.73_m2} >60 [facility] Basophil percentageOrdered B y: Dr. Sotelo on 09-07-2022 Bilirubin [Mass/Vol] 0.30 mg/dL 0.20-1.00 [facility] Comment on above: For patients on eltr ombopag therapy, use of [place] TBIL is not recommended. Protein [Mass/Vol] 7.0 g/dL 6.4-8.2 [facility] WBC (Bld) [#/Vol] 8.0 10*3/uL 4.4-11.0 [facility] Blood erythrocytes count (nu mber/volume)Ordered By: Dr. Sotelo on 09-07-2022 RBC (Bld) [#/Vol] 4.72 10*6/uL 4.2-5.4 [facility] Blood hemoglobin measurement (mass/volume)Ordered By: Dr. Sotelo on 09-07-2022 Hemoglobin (Bld) [Mass/Vol] 14.1 g/dL 12.0-15.0 [facility] Blood platelet mean volumeOr dered By: Dr. Sotelo on 09-07-2022 Platelet mean volume (Bld) [Entitic vol] 9.4 fL 6.2-12.0 [facility] Determination of erythrocyte mean corpuscular volume (MCV)Ordered By: Dr. Sotelo on 09-07-2022 MCV (RBC) [Entitic vol] 94.7 fL 81-99 [facility] Direct bilirubinOrdered By: Dr. Sotelo on 09-07-2022 Bilirubin.direct [Mass/Vol] 0.08 mg/dL 0.00-0.30 [facility] Hematocrit Auto (Bld) [Volum e fraction]Ordered By: Dr. Sotelo on 09-07-2022 Hematocrit (Bld) [Volume fraction] 44.7 % 37-47 [facility] INR in Blood by Coagulation assayOrdered By: Dr. Sotelo on 09-07-2022 INR Coag (Bld) [Relative time] 0.9 {INR} [facility] Laboratory - Chemistry and C hemistry - challengeOrdered By: Dr. Sotelo on 09-07-2022 ALP [Catalytic activity/Vol] 117 U/L 45-117 [facility] ALT [Catalytic activity/Vol] 23 U/L 13-56 [facility] Globulin (S) [Mass/Vol] 3.4 g/dL 2.2-4.2 [facility] Laboratory - CoagulationOrde red By: Dr. Sotelo on 09-07-2022 aPTT Coag (Bld) [Time] 23.9 s 24.1-36.2 [facility] PT Coag (PPP) [Time] 12.3 s 11.7-14.9 [facility] Laboratory - Hematology and Cell countsOrdered By: Dr. Sotelo on 09-07-2022 Erythrocyte distribution width (RBC) [Entitic vol] 47.5 fL 35.1-43.9 [facility] Erythrocyte distribution width (RBC) [Ratio] 13.6 % 11.6-14.6 [facility] MCH (RBC) [Entitic mass] 29.9 pg 27.0-32.0 [facility] MCHC Auto (RBC) [Mass/Vol]Or dered By: Dr. Sotelo on 09-07-2022 MCHC (RBC) [Mass/Vol] 31.5 g/dL 32-36 [facility] No Panel InformationOrdered By: Dr. Sotelo on 09-07-2022 Thyroid Stimulating Hormone (TSH) 6.80 uIU/mL 0.358-3.74 [facility] Platelets bldOrdered By: Dr. Sotelo on 09-07-2022 Platelets (Bld) [#/Vol] 377 10*3/uL 150-450 [facility] Serum or plasma albumin stephanie urement (mass/volume)Ordered By: Dr. Sotelo on 09-07-2022 Albumin [Mass/Vol] 3.6 g/dL 3.2-5.0 [facility] Thin prep Papanicolaou smear with manual screeningOrdered By: Dr. Sotelo on 09-07-2022 Thin prep Papanicolaou smear with manual screening 16 U/L 15-37 [facility] Laboratory - Microbiology an d Antimicrobial susceptibilityon 04-25-2022 SARS-CoV-2 (COVID-19) RNA VIKRAM+probe Ql (Unsp spec) Detected [facility] No Panel Informationon 04-25 Influenza Types A,B Rapid (Clinic) Not detected [facility] XR FOOT GENERAL 3V AP/LAT/OB L BILATERALon 01-06-2022 [facility] Lower GI hemoglobin IA Ql (S tl)on 10-16-2021 Stool Occult Blood (STEFANY) Positive [facility] Work Phone: No Panel Informationon 10-16 Enteric Bacteriology [facility] Work Phone: Absolute lymphocyte counton 10-15-2021 Lymphocytes Auto (Unsp spec) [#/Vol] 1.84 10*3/uL 0.83-4.51 [facility] Work Phone: Basophil percentageon 2021 Basophils/100 WBC (Bld) 0.7 % 0-1 [facility] Work Phone: Bilirubin [Mass/Vol] 0.40 mg/dL 0.20-1.00 [facility] Work Phone: Comment on above: For patients on eltr ombopag therapy, use of [place] TBIL is not recommended. Chloride [Moles/Vol] 103 mmol/L 98-107 [facility] Work Phone: Eosinophils/100 WBC (Bld) 2.1 % 0-5 [facility] Work Phone: Glucose [Mass/Vol] 83 mg/dL 74-106 [facility] Work Phone: Neutrophils (Bld) [#/Vol] 6.1 10*3/uL 2.0-7.7 [facility] Work Phone: Neutrophils/100 WBC (Bld) 66.6 % 47-70 [facility] Work Phone: Potassium [Moles/Vol] 3.7 mmol/L 3.5-5.1 [facility] Work Phone: Comment on above: Slight Hemolysis, Re sult may be falsely increased. Protein [Mass/Vol] 7.5 g/dL 6.4-8.2 [facility] Work Phone: Sodium [Moles/Vol] 137 mmol/L 136-145 [facility] Work Phone: WBC (Bld) [#/Vol] 9.2 10*3/uL 4.4-11.0 [facility] Work Phone: Blood erythrocytes count (nu mber/volume)on 10-15-2021 RBC (Bld) [#/Vol] 5.21 10*6/uL 4.2-5.4 [facility] Work Phone: Blood hemoglobin measurement (mass/volume)on 10-15-2021 Hemoglobin (Bld) [Mass/Vol] 15.1 g/dL 12.0-15.0 [facility] Work Phone: Blood lymphocytes/100 leukoc yteson 10-15-2021 Lymphocytes/100 WBC (Bld) 20.0 % 19-41 [facility] Work Phone: [phone] Blood monocytes/100 leukocyt eson 10-15-2021 Monocytes/100 WBC (Bld) 10.1 % 0-10 [facility] Work Phone: [phone] Blood platelet mean volumeon 10-15-2021 Platelet mean volume (Bld) [Entitic vol] 9.9 fL 6.2-12.0 [facility] Work Phone: Culture, urineon 10-15-2021 Bacteria identified Cx Nom (U) Klebsiella pneumoniae sp pneum [facility] Work Phone: [phone] Bacteria identified Cx Nom (U) Positive [facility] Work Phone: [phone] Determination of erythrocyte mean corpuscular volume (MCV)on 10-15-2021 MCV (RBC) [Entitic vol] 91.4 fL 81-99 [facility] Work Phone: [phone] Hematocrit Auto (Bld) [Volum e fraction]on 10-15-2021 Hematocrit (Bld) [Volume fraction] 47.6 % 37-47 [facility] Work Phone: Laboratory - Chemistry and C hemistry - challengeon 10-15-2021 ALP [Catalytic activity/Vol] 115 U/L 45-117 [facility] Work Phone: ALT [Catalytic activity/Vol] 34 U/L 13-56 [facility] Work Phone: [phone] CO2 [Moles/Vol] 26.0 mmol/L 21.0-32.0 [facility] Work Phone: [phone] Globulin (S) [Mass/Vol] 3.6 g/dL 2.2-4.2 [facility] Work Phone: [phone] Urea nitrogen/Creatinine [Mass ratio] 22.0 mg/mg 10-20 [facility] Work Phone: [phone] Laboratory - Hematology and Cell countson 10-15-2021 Erythrocyte distribution width (RBC) [Entitic vol] 41.1 fL 35.1-43.9 [facility] Work Phone: [phone] Erythrocyte distribution width (RBC) [Ratio] 12.3 % 11.6-14.6 [facility] Work Phone: [phone] Immature granulocytes/100 WBC (Bld) 0.500 % 0.0-0.9 [facility] Work Phone: [phone] Comment on above: IG% - Immature Granu locytes (promyelocytes, myelocytes and metamyelocytes) > 1% indicates that a LEFT SHIFT is Present. MCH (RBC) [Entitic mass] 29.0 pg 27.0-32.0 [facility] Work Phone: [phone] Nucleated RBC/100 WBC (Bld) [Ratio] 0 % 0-5 [facility] Work Phone: [phone] MCHC Auto (RBC) [Mass/Vol]on 10-15-2021 MCHC (RBC) [Mass/Vol] 31.7 g/dL 32-36 [facility] Work Phone: No Panel Informationon 10-15 Estimated GFR (MDRD) Amer 77 mL/min >60 [facility] Work Phone: [phone] Comment on above: GFR Calc Estimated GFR (MDRD) Non-Af Amer 64 mL/min >60 [facility] Work Phone: [phone] Comment on above: Non- GFR Calc Platelets bldon 10-15-2021 Platelets (Bld) [#/Vol] 348 10*3/uL 150-450 [facility] Work Phone: [phone] Serum or plasma albumin stephanie urement (mass/volume)on 10-15-2021 Albumin [Mass/Vol] 3.9 g/dL 3.2-5.0 [facility] Work Phone: [phone] Serum or plasma albumin/glob ulin mass ratioon 10-15-2021 Albumin/Globulin [Mass ratio] 1.1 {ratio} 0.9-2.4 [facility] Work Phone: Serum or plasma calcium stephanie urement (mass/volume)on 10-15-2021 Calcium [Mass/Vol] 9.5 mg/dL 8.5-10.1 [facility] Work Phone: Serum or plasma creatinine m easurement (mass/volume)on 10-15-2021 Creatinine [Mass/Vol] 0.91 mg/dL 0.55-1.02 [facility] Work Phone: Comment on above: The validity of the calculated GFR & GFRAA in patients over 70 years has not been determined. Clinical correlation is essential. Serum or plasma urea nitroge n measurement (mass/volume)on 10-15-2021 Urea nitrogen [Mass/Vol] 20 mg/dL 7-18 [facility] Work Phone: Thin prep Papanicolaou smear with manual screeningon 10-15-2021 Thin prep Papanicolaou smear with manual screening 20 U/L 15-37 [facility] Work Phone: Comment on above: Slight Hemolysis, Re sult may be falsely increased. Thin prep Papanicolaou smear with manual screening 8 5-15 [facility] Work Phone: Absolute lymphocyte counton 08-26-2021 Lymphocytes Auto (Unsp spec) [#/Vol] 1.75 10*3/uL 0.83-4.51 [facility] Work Phone: Basophil percentageon 2021 Basophils/100 WBC (Bld) 0.8 % 0-1 [facility] Work Phone: [phone] Bilirubin [Mass/Vol] 0.30 mg/dL 0.20-1.00 [facility] Work Phone: Comment on above: For patients on eltr ombopag therapy, use of [place] TBIL is not recommended. Chloride [Moles/Vol] 102 mmol/L 98-107 [facility] Work Phone: Eosinophils/100 WBC (Bld) 3.8 % 0-5 [facility] Work Phone: Glucose [Mass/Vol] 112 mg/dL 74-106 [facility] Work Phone: Comment on above: Fasting Glucose resu lt from 100 to 125 mg/dL suggests IMPAIRED HOMEOSTASIS per A.D.A. criteria. Neutrophils (Bld) [#/Vol] 4.7 10*3/uL 2.0-7.7 [facility] Work Phone: Neutrophils/100 WBC (Bld) 61.3 % 47-70 [facility] Work Phone: Potassium [Moles/Vol] 4.3 mmol/L 3.5-5.1 [facility] Work Phone: Protein [Mass/Vol] 7.0 g/dL 6.4-8.2 [facility] Work Phone: Sodium [Moles/Vol] 139 mmol/L 136-145 [facility] Work Phone: WBC (Bld) [#/Vol] 7.7 10*3/uL 4.4-11.0 [facility] Work Phone: Blood erythrocytes count (nu mber/volume)on 08-26-2021 RBC (Bld) [#/Vol] 4.33 10*6/uL 4.2-5.4 [facility] Work Phone: Blood hemoglobin measurement (mass/volume)on 08-26-2021 Hemoglobin (Bld) [Mass/Vol] 12.9 g/dL 12.0-15.0 [facility] Work Phone: Blood lymphocytes/100 leukoc yteson 08-26-2021 Lymphocytes/100 WBC (Bld) 22.6 % 19-41 [facility] Work Phone: Blood monocytes/100 leukocyt eson 08-26-2021 Monocytes/100 WBC (Bld) 11.1 % 0-10 [facility] Work Phone: Blood platelet mean volumeon 08-26-2021 Platelet mean volume (Bld) [Entitic vol] 10.3 fL 6.2-12.0 [facility] Work Phone: [phone] Determination of erythrocyte mean corpuscular volume (MCV)on 08-26-2021 MCV (RBC) [Entitic vol] 93.8 fL 81-99 [facility] Work Phone: [phone] Hematocrit Auto (Bld) [Volum e fraction]on 08-26-2021 Hematocrit (Bld) [Volume fraction] 40.6 % 37-47 [facility] Work Phone: [phone] Laboratory - Chemistry and C hemistry - challengeon 08-26-2021 ALP [Catalytic activity/Vol] 108 U/L 45-117 [facility] Work Phone: [phone] ALT [Catalytic activity/Vol] 26 U/L 13-56 [facility] Work Phone: [phone] CO2 [Moles/Vol] 29.0 mmol/L 21.0-32.0 [facility] Work Phone: [phone] Globulin (S) [Mass/Vol] 3.4 g/dL 2.2-4.2 [facility] Work Phone: [phone] Urea nitrogen/Creatinine [Mass ratio] 23.6 mg/mg -20 [facility] Work Phone: [phone] Laboratory - Hematology and Cell countson 08-26-2021 Erythrocyte distribution width (RBC) [Entitic vol] 44.6 fL 35.1-43.9 [facility] Work Phone: [phone] Erythrocyte distribution width (RBC) [Ratio] 12.8 % 11.6-14.6 [facility] Work Phone: [phone] Immature granulocytes/100 WBC (Bld) 0.400 % 0.0-0.9 [facility] Work Phone: [phone] Comment on above: IG% - Immature Granu locytes (promyelocytes, myelocytes and metamyelocytes) > 1% indicates that a LEFT SHIFT is Present. MCH (RBC) [Entitic mass] 29.8 pg 27.0-32.0 [facility] Work Phone: [phone] Nucleated RBC/100 WBC (Bld) [Ratio] 0 % 0-5 [facility] Work Phone: [phone] MCHC Auto (RBC) [Mass/Vol]on 08-26-2021 MCHC (RBC) [Mass/Vol] 31.8 g/dL 32-36 [facility] Work Phone: No Panel Informationon 08-26 Estimated GFR (MDRD) Amer 71 mL/min >60 [facility] Work Phone: [phone] Comment on above: GFR Calc Estimated GFR (MDRD) Non-Af Amer 59 mL/min >60 [facility] Work Phone: [phone] Comment on above: Non- GFR Calc Thyroid Stimulating Hormone (TSH) 3.19 uIU/mL 0.358-3.74 [facility] Work Phone: [phone] Vitamin D 25-Hydroxy 22.4 ng/mL [facility] Work Phone: [phone] Comment on above: Vitamin D 25(OH) Sta tus Range Deficiency <20 ng/mL (50nmol/L) Insufficiency 20 - 30 ng/mL (50 - 75 nmol/L) Sufficiency 30 - 100 ng/mL (75 - 250 nmol/L) Toxicity >100 ng/mL (>250 nmol/L) Platelets bldon 08-26-2021 Platelets (Bld) [#/Vol] 356 10*3/uL 150-450 [facility] Work Phone: [phone] Serum or plasma albumin stephanie urement (mass/volume)on 08-26-2021 Albumin [Mass/Vol] 3.6 g/dL 3.2-5.0 [facility] Work Phone: [phone] Serum or plasma albumin/glob ulin mass ratioon 08-26-2021 Albumin/Globulin [Mass ratio] 1.1 {ratio} 0.9-2.4 [facility] Work Phone: [phone] Serum or plasma calcium stephanie urement (mass/volume)on 08-26-2021 Calcium [Mass/Vol] 8.5 mg/dL 8.5-10.1 [facility] Work Phone: Serum or plasma creatinine m easurement (mass/volume)on 08-26-2021 Creatinine [Mass/Vol] 0.97 mg/dL 0.55-1.02 [facility] Work Phone: Comment on above: The validity of the calculated GFR & GFRAA in patients over 70 years has not been determined. Clinical correlation is essential. Serum or plasma urea nitroge n measurement (mass/volume)on 08-26-2021 Urea nitrogen [Mass/Vol] 23 mg/dL 7-18 [facility] Work Phone: Thin prep Papanicolaou smear with manual screeningon 08-26-2021 Thin prep Papanicolaou smear with manual screening 20 U/L 15-37 [facility] Work Phone: Thin prep Papanicolaou smear with manual screening 8 5-15 [facility] Work Phone: Absolute lymphocyte counton 06-03-2021 Lymphocytes Auto (Unsp spec) [#/Vol] 1.47 10*3/uL 0.83-4.51 [facility] Work Phone: Basophil percentageon 2021 Basophils/100 WBC (Bld) 0.7 % 0-1 [facility] [facility] Work Phone: Bilirubin [Mass/Vol] 0.20 mg/dL 0.20-1.00 [facility] Work Phone: Comment on above: For patients on eltr ombopag therapy, use of Dimension [place] TBIL is not recommended. Chloride [Moles/Vol] 102 mmol/L 98-107 [facility] Work Phone: Eosinophils/100 WBC (Bld) 2.6 % 0-5 [facility] Work Phone: Glucose [Mass/Vol] 118 mg/dL 74-106 [facility] Work Phone: Comment on above: Fasting Glucose resu lt from 100 to 125 mg/dL suggests IMPAIRED HOMEOSTASIS per A.D.A. criteria. Neutrophils (Bld) [#/Vol] 6.6 10*3/uL 2.0-7.7 [facility] Work Phone: [phone] Neutrophils/100 WBC (Bld) 69.5 % 47-70 [facility] Work Phone: [phone] Potassium [Moles/Vol] 4.0 mmol/L 3.5-5.1 [facility] Work Phone: [phone] Protein [Mass/Vol] 7.1 g/dL 6.4-8.2 [facility] Work Phone: [phone] Sodium [Moles/Vol] 137 mmol/L 136-145 [facility] Work Phone: [phone] WBC (Bld) [#/Vol] 9.5 10*3/uL 4.4-11.0 [facility] Work Phone: [phone] Blood erythrocytes count (nu mber/volume)on 06-03-2021 RBC (Bld) [#/Vol] 4.57 10*6/uL 4.2-5.[address] [facility] Work Phone: [phone] Blood hemoglobin measurement (mass/volume)on 06-03-2021 Hemoglobin (Bld) [Mass/Vol] 13.9 g/dL 12.0-15.0 [facility] Work Phone: [phone] Blood lymphocytes/100 leukoc yteson 06-03-2021 Lymphocytes/100 WBC (Bld) 15.4 % 19-41 [facility] Work Phone: [phone] Blood monocytes/100 leukocyt eson 06-03-2021 Monocytes/100 WBC (Bld) 9.9 % 0-10 [facility] Work Phone: [phone] Blood platelet mean volumeon 06-03-2021 Platelet mean volume (Bld) [Entitic vol] 9.1 fL 6.2-12.0 [facility] Work Phone: [phone] Determination of erythrocyte mean corpuscular volume (MCV)on 06-03-2021 MCV (RBC) [Entitic vol] 93.0 fL 81-99 [facility] Work Phone: Hematocrit Auto (Bld) [Volum e fraction]on 06-03-2021 Hematocrit (Bld) [Volume fraction] 42.5 % 37-47 [facility] Work Phone: [phone] Laboratory - Chemistry and C hemistry - challengeon 06-03-2021 ALP [Catalytic activity/Vol] 118 U/L 45-117 [facility] Work Phone: [phone] ALT [Catalytic activity/Vol] 26 U/L 13-56 [facility] Work Phone: [phone] CO2 [Moles/Vol] 27.0 mmol/L 21.0-32.0 [facility] Work Phone: [phone] Globulin (S) [Mass/Vol] 3.8 g/dL 2.2-4.2 [facility] Work Phone: [phone] Urea nitrogen/Creatinine [Mass ratio] 30.4 mg/mg 10-20 [facility] Work Phone: [phone] Laboratory - Hematology and Cell countson 06-03-2021 Erythrocyte distribution width (RBC) [Entitic vol] 42.0 fL 35.1-43.9 [facility] Work Phone: [phone] Erythrocyte distribution width (RBC) [Ratio] 12.2 % 11.6-14.6 [facility] Work Phone: [phone] Immature granulocytes/100 WBC (Bld) 1.900 % 0.0-0.9 [facility] Work Phone: [phone] Comment on above: IG% - Immature Granu locytes (promyelocytes, myelocytes and metamyelocytes) > 1% indicates that a LEFT SHIFT is Present. MCH (RBC) [Entitic mass] 30.4 pg 27.0-32.0 [facility] Work Phone: [phone] Nucleated RBC/100 WBC (Bld) [Ratio] 0 % 0-5 [facility] Work Phone: [phone] MCHC Auto (RBC) [Mass/Vol]on 06-03-2021 MCHC (RBC) [Mass/Vol] 32.7 g/dL 32-36 [facility] Work Phone: No Panel Informationon 06-03 Estimated GFR (MDRD) Amer 79 mL/min >60 [facility] Work Phone: Comment on above: GFR Calc Estimated GFR (MDRD) Non-Af Amer 66 mL/min >60 [facility] Work Phone: Comment on above: Non- GFR Calc Thyroid Stimulating Hormone (TSH) 2.92 uIU/mL 0.358-3.74 [facility] Work Phone: Vitamin D 25-Hydroxy 25.7 ng/mL [facility] Work Phone: Comment on above: Vitamin D 25(OH) Sta tus Range Deficiency <20 ng/mL (50nmol/L) Insufficiency 20 - 30 ng/mL (50 - 75 nmol/L) Sufficiency 30 - 100 ng/mL (75 - 250 nmol/L) Toxicity >100 ng/mL (>250 nmol/L) Platelets bldon 06-03-2021 Platelets (Bld) [#/Vol] 361 10*3/uL 150-450 [facility] Work Phone: Serum or plasma albumin stephanie urement (mass/volume)on 06-03-2021 Albumin [Mass/Vol] 3.3 g/dL 3.2-5.0 [facility] Work Phone: [phone] Serum or plasma albumin/glob ulin mass ratioon 06-03-2021 Albumin/Globulin [Mass ratio] 0.9 {ratio} 0.9-2.4 [facility] Work Phone: [phone] Serum or plasma calcium stephanie urement (mass/volume)on 06-03-2021 Calcium [Mass/Vol] 8.7 mg/dL 8.5-10.1 [facility] Work Phone: [phone] Serum or plasma creatinine m easurement (mass/volume)on 06-03-2021 Creatinine [Mass/Vol] 0.89 mg/dL 0.55-1.02 [facility] Work Phone: Comment on above: The validity of the calculated GFR & GFRAA in patients over 70 years has not been determined. Clinical correlation is essential. Serum or plasma urea nitroge n measurement (mass/volume)on 06-03-2021 Urea nitrogen [Mass/Vol] 27 mg/dL 7-18 [facility] Work Phone: Thin prep Papanicolaou smear with manual screeningon 06-03-2021 Thin prep Papanicolaou smear with manual screening 16 U/L 15-37 [facility] Work Phone: Thin prep Papanicolaou smear with manual screening 8 5-15 [facility] Work Phone: XR Ribs - right Views and Ch est PAon 02-16-2021 IMPRESSION: No acute osseous abnormality. 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DIEGO Transcribe Date/Time: Feb 16 2021 4:14P Dictated by : TON CABRERA MD This examination was interpreted and the report reviewed and electronically signed by: TON CABRERA MD on Feb 16 2021 4:15PM [facility] DIVISION OF RADIOLOGY * * *Final Report* * * DATE OF EXAM: Feb 16 2021 3:06PM WOX 5244 - XR RIB/CHST 3V AP RIB/OBL/CHST R / PROCEDURE REASON: multiple diagnoses * * * * Physician Interpretation * * * * EXAMINATION / TECHNIQUE: XR RIB/CHST 3V AP RIB/OBL/CHST R PATIENT/TECHNOLOGIST PROVIDED HISTORY: Right anterior mid to lower rib pain following a fall yesterday CLINICAL INFORMATION ( PROVIDED BY ORDERING CLINICIAN) : Fall from slip, trip, or stumble, initial encounter Rib pain on right side COMPARISON: None RESULT: No acute fracture or dislocation. Visualized joint spaces are preserved. No aggressive osseous lesions. Left basilar atelectasis. Atherosclerotic calcifications of the thoracic aorta. No pneumothorax. DIVISION OF RADIOLOGY Provider, [facility] * * *Final Report* * * DATE OF EXAM: Feb 16 2021 3:06PM WOX 5244 - XR RIB/CHST 3V AP RIB/OBL/CHST R / PROCEDURE REASON: multiple diagnoses * * * * Physician Interpretation * * * * EXAMINATION / TECHNIQUE: XR RIB/CHST 3V AP RIB/OBL/CHST R PATIENT/TECHNOLOGIST PROVIDED HISTORY: Right anterior mid to lower rib pain following a fall yesterday CLINICAL INFORMATION ( PROVIDED BY ORDERING CLINICIAN) : Fall from slip, trip, or stumble, initial encounter Rib pain on right side COMPARISON: None RESULT: No acute fracture or dislocation. Visualized joint spaces are preserved. No aggressive osseous lesions. Left basilar atelectasis. Atherosclerotic calcifications of the thoracic aorta. No pneumothorax. IMPRESSION IMPRESSION: No acute osseous abnormality. 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[facility] Transcribe Date/Time: Feb 16 2021 4:14P Dictated by : TON CABRERA MD This examination was interpreted and the report reviewed and electronically signed by: TON CABRERA MD on Feb 16 2021 4:15PM EST [facility] Radiology Study observation (narrative) [facility] XR Ribs - right Views and Ch est PAOrdered By: Ccf Provider on 02-16-2021 [facility] XR Knee - left 4 Viewson IMPRESSION: Suprapatellar LEFT knee joint effusion. No acute osseous abnormality. 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[facility] Transcribe Date/Time: Oct 23 2020 8:28A Dictated by : CONSTANZA MARCOS MD This examination was interpreted and the report reviewed and electronically signed by: CONSTANZA MARCOS MD on Oct 23 2020 8:29AM [facility] DIVISION OF RADIOLOGY * * *Final Report* * * DATE OF EXAM: Oct 23 2020 8:25AM WOX 5202 - XR KNEE 4V AP/PA BOTH+LAT/DMITRI LT / PROCEDURE REASON: Knee injury, left, initial encounter * * * * Physician Interpretation * * * * EXAMINATION: XR KNEE 4V AP/PA BOTH+LAT/DMITRI LT CLINICAL HISTORY: Diffuse left knee pain after feeling a pop this morning. Knee injury, left, initial encounter Technique: XR KNEE 4V AP/PA BOTH+LAT/DMITRI LT -- LEFT knee with 4 views on 4 images Comparison: None RESULT: No acute fracture or dislocation. There is mild narrowing of the medial compartment of the LEFT knee without significant degenerative spurring. A suprapatellar LEFT knee joint effusion is noted. Vascular calcifications. Marked degenerative changes of the medial compartment of the RIGHT knee with subchondral sclerotic change and spurring. There is also narrowing of the lateral aspect of the patellofemoral joint of the RIGHT knee. DIVISION OF RADIOLOGY Provider, Lilibeth Saurav [facility] - 10/23/2020 * * *Final Report* * * DATE OF EXAM: Oct 23 2020 8:25AM WOX 5202 - XR KNEE 4V AP/PA BOTH+LAT/DMITRI LT / PROCEDURE REASON: Knee injury, left, initial encounter * * * * Physician Interpretation * * * * EXAMINATION: XR KNEE 4V AP/PA BOTH+LAT/DMITRI LT CLINICAL HISTORY: Diffuse left knee pain after feeling a pop this morning. Knee injury, left, initial encounter Technique: XR KNEE 4V AP/PA BOTH+LAT/DMITRI LT -- LEFT knee with 4 views on 4 images Comparison: None RESULT: No acute fracture or dislocation. There is mild narrowing of the medial compartment of the LEFT knee without significant degenerative spurring. A suprapatellar LEFT knee joint effusion is noted. Vascular calcifications. Marked degenerative changes of the medial compartment of the RIGHT knee with subchondral sclerotic change and spurring. There is also narrowing of the lateral aspect of the patellofemoral joint of the RIGHT knee. IMPRESSION IMPRESSION: Suprapatellar LEFT knee joint effusion. No acute osseous abnormality. 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[facility] Transcribe Date/Time: Oct 23 2020 8:28A Dictated by : CONSTANZA MARCOS MD This examination was interpreted and the report reviewed and electronically signed by: CONSTANZA MARCOS MD on Oct 23 2020 8:29AM EST [facility] Radiology Study observation (narrative) Anthony gardner [facility] XR Knee - left 4 ViewsOrdere d By: Ccf Provider on 10-23-2020 [facility] Culture, urine Bacteria identified Cx Nom (U) Klebsiella pneumoniae sp pneum [facility] Work Phone: Bacteria identified Cx Nom (U) Positive [facility] Work Phone: Lower GI hemoglobin IA Ql (S tl) Stool Occult Blood (STEFANY) Positive [facility] Work Phone: No Panel Information Enteric Bacteriology [facility] Work Phone: Vital Signs Date Time Vital Sign Value Performing Clinician Facility 08-27-2024 14:06-0400 Diastolic blood pressure 78 mm[Hg] Sylvie Suppan KNIFE OPERATOR.FILING AND POLISHING SUPERVISOR Work Phone: [facility] 08-27-2024 14:06-0400 Heart rate 80 /min Sylvie Suppan KNIFE OPERATOR.FILING AND POLISHING SUPERVISOR Work Phone: [facility] 08-27-2024 14:06-0400 SaO2% (BldA) [Mass fraction] 94 % Sylvie Suppan KNIFE OPERATOR.FILING AND POLISHING SUPERVISOR Work Phone: [facility] 08-27-2024 14:06-0400 Systolic blood pressure 148 mm[Hg] Sylvie Suppan KNIFE OPERATOR.FILING AND POLISHING SUPERVISOR Work Phone: [facility] 08-24-2024 21:19-0400 Body temperature 98.7 [degF] Dr. Dinah Melgar MD Work Phone: [facility] 08-24-2024 21:19-0400 Diastolic blood pressure 76 mm[Hg] Dr. Dinah Melgar MD Work Phone: [facility] 08-24-2024 21:19-0400 Heart rate 81 /min Dr. Dinah Melgar MD Work Phone: 8(416)545-401725 [place] [address] 08-24-2024 21:19-0400 Respiratory rate 17 /min Dr. Dinah Melgar MD Work Phone: [facility] 08-24-2024 21:19-0400 SaO2% (BldA) [Mass fraction] 99 % Dr. Dinah Melgar MD Work Phone: [facility] 08-24-2024 21:19-0400 Systolic blood pressure 121 mm[Hg] Dr. Dinah Melgar MD Work Phone: [facility] 08-24-2024 19:01-0400 Body height 160.[address] Dinah Melgar MD Work Phone: [facility] 08-24-2024 19:01-0400 Body mass index (BMI) [Ratio] 35.9 kg/m2 Dr. Dinah Melgar MD Work Phone: [facility] 08-24-2024 19:01-0400 Body weight 91.[address] Dinah Melgar MD Work Phone: 2(575)701-267038 [place] [address] 08-21-2024 23:20-0400 Body temperature 98 [degF] Dr. Dinah Melgar MD Work Phone: 6(527)128-323538 [place] [address] 08-21-2024 23:20-0400 Diastolic blood pressure 86 mm[Hg] Dr. Dinah Melgar MD Work Phone: 6(584)131-146938 [place] [address] 08-21-2024 23:20-0400 Heart rate 79 /min Dr. Dinah Melgar MD Work Phone: 8(600)746-555538 [place] [address] 08-21-2024 23:20-0400 Respiratory rate 18 /min Dr. Dinah Melgar MD Work Phone: 7(247)735-043838 [place] [address] 08-21-2024 23:20-0400 SaO2% (BldA) [Mass fraction] 95 % Dr. Dinah Melgar MD Work Phone: 1(016)771-149938 [place] [address] 08-21-2024 23:20-0400 Systolic blood pressure 189 mm[Hg] Dr. Dinah Melgar MD Work Phone: 2(615)105-637338 [place] [address] 08-21-2024 16:18-0400 Body height 160.[address] Dinah Melgar MD Work Phone: 5(324)010-258138 [place] [address] 08-21-2024 16:18-0400 Body mass index (BMI) [Ratio] 35.3 kg/m2 Dr. Dinah Melgar MD Work Phone: 5(086)762-213138 [place] [address] 08-21-2024 16:18-0400 Body weight 90.[address] Dinah Melgar MD Work Phone: 9(532)463-006438 [place] [address] 08-20-2024 13:50-0400 Body temperature 99.7 [degF] Sylvie Ariza KNIFE OPERATOR.FILING AND POLISHING SUPERVISOR Work Phone: 8(443)762-378315 [place] [address] 08-20-2024 13:50-0400 Diastolic blood pressure 72 mm[Hg] Sylvie Ariza KNIFE OPERATOR.FILING AND POLISHING SUPERVISOR Work Phone: 4(754)498-018355 [place] [address] 08-20-2024 13:50-0400 Heart rate 80 /min Sylvie Ariza KNIFE OPERATOR.FILING AND POLISHING SUPERVISOR Work Phone: [facility] 08-20-2024 13:50-0400 SaO2% (BldA) [Mass fraction] 93 % Sylvie Ariza KNIFE OPERATOR.FILING AND POLISHING SUPERVISOR Work Phone: [facility] 08-20-2024 13:50-0400 Systolic blood pressure 128 mm[Hg] Sylvie Ariza KNIFE OPERATOR.FILING AND POLISHING SUPERVISOR Work Phone: 5(558)264-183755 [place] [address] 08-15-2024 13:32-0400 Body temperature 97.4 [degF] Dr. Dinah Melgar MD Work Phone: 4(441)978-680638 [place] [address] 08-15-2024 13:32-0400 Diastolic blood pressure 60 mm[Hg] Dr. Dinah Melgar MD Work Phone: 1(542)438-903838 [place] [address] 08-15-2024 13:32-0400 Heart rate 87 /min Dr. Dinah Melgar MD Work Phone: 0(790)605-481938 [place] [address] 08-15-2024 13:32-0400 Respiratory rate 18 /min Dr. Dinah Melgar MD Work Phone: 4(545)565-569738 [place] [address] 08-15-2024 13:32-0400 SaO2% (BldA) [Mass fraction] 93 % Dr. Dinah Melgar MD Work Phone: 1(940)926-597225 [place] [address] 08-15-2024 13:32-0400 Systolic blood pressure 158 mm[Hg] Dr. Dinah Melgar MD Work Phone: 1(923)530-360638 [place] [address] 08-15-2024 09:17-0400 Inhaled oxygen flow rate 2 L/min Dr. Dinah Melgar MD Work Phone: 5(370)496-135838 [place] [address] 08-15-2024 08:17-0400 Inhaled oxygen concentration 2 % Dr. Dinah Melgar MD Work Phone: 4(213)564-449538 [place] [address] 08-15-2024 05:51-0400 Body mass index (BMI) [Ratio] 35.8 kg/m2 Dr. Dinah Melgar MD Work Phone: 1(593)727-346738 [place] [address] 08-15-2024 05:51-0400 Body weight 91.[address] Dinah Melgar MD Work Phone: 3(796)395-732738 [place] [address] 08-14-2024 02:50-0400 Body height 160.[address] Dinah Melgar MD Work Phone: 5(843)007-113938 [place] [address] 08-14-2024 01:17-0400 Diastolic blood pressure 86 mm[Hg] Dr. Dinah Melgar MD Work Phone: 6(154)324-375038 [place] [address] 08-14-2024 01:17-0400 Heart rate 83 /min Dr. Dinah Melgar MD Work Phone: 2(446)268-885338 [place] [address] 08-14-2024 01:17-0400 Inhaled oxygen flow rate 2 L/min Dr. Dinah Melgar MD Work Phone: 9(899)091-204738 [place] [address] 08-14-2024 01:17-0400 Respiratory rate 18 /min Dr. Dinah Melgar MD Work Phone: 4(537)953-985338 [place] [address] 08-14-2024 01:17-0400 SaO2% (BldA) [Mass fraction] 96 % Dr. Dinah Melgar MD Work Phone: 4(830)045-921738 [place] [address] 08-14-2024 01:17-0400 Systolic blood pressure 175 mm[Hg] Dr. Dinah Melgar MD Work Phone: 2(063)080-678338 [place] [address] 08-14-2024 00:37-0400 Body temperature 98.5 [degF] Dr. Dinah Melgar MD Work Phone: 7(951)783-417738 [place] [address] 08-13-2024 18:51-0400 Body mass index (BMI) [Ratio] 35.3 kg/m2 Dr. Dinah Melgar MD Work Phone: 9(704)825-447438 [place] [address] 08-13-2024 18:51-0400 Body weight 90.[address] Dinah Melgar MD Work Phone: 2(694)730-006138 [place] [address] 08-13-2024 18:49-0400 Body height 160.[address] Dinah Melgar MD Work Phone: 1(572)507-443938 [place] [address] 08-12-2024 13:02-0400 Body temperature 97.9 [degF] Dr. Dinah Melgar MD Work Phone: 0(914)939-560825 [place] [address] 08-12-2024 13:02-0400 Diastolic blood pressure 81 mm[Hg] Dr. Dinah Melgar MD Work Phone: 5(274)323-324038 [place] [address] 08-12-2024 13:02-0400 Heart rate 84 /min Dr. Dinah Melgar MD Work Phone: 8(918)965-911538 [place] [address] 08-12-2024 13:02-0400 Respiratory rate 16 /min Dr. Dinah Melgar MD Work Phone: 3(507)369-404738 [place] [address] 08-12-2024 13:02-0400 SaO2% (BldA) [Mass fraction] 94 % Dr. Dinah Melgar MD Work Phone: 4(796)883-296538 [place] [address] 08-12-2024 13:02-0400 Systolic blood pressure 159 mm[Hg] Dr. Dinah Melgar MD Work Phone: 0(043)351-664338 [place] [address] 08-12-2024 11:32-0400 Body mass index (BMI) [Ratio] 35.3 kg/m2 Dr. Dinah Melgar MD Work Phone: 4(934)462-720238 [place] [address] 08-12-2024 11:32-0400 Body weight 90.[address] Dinah Melgar MD Work Phone: 2(803)534-466338 [place] [address] 08-12-2024 11:30-0400 Body height 160.[address] Dinah Melgar MD Work Phone: [facility] 07-30-2024 09:54-0400 Body height 160 cm Dinah Melgar MD Work Phone: [facility] 07-30-2024 09:54-0400 Body mass index (BMI) [Ratio] 34.9 kg/m2 Dinah Melgar MD Work Phone: [facility] 07-30-2024 09:54-0400 Body weight 89.36 kg Dinah Melgar MD Work Phone: [facility] 07-30-2024 09:54-0400 Diastolic blood pressure 70 mm[Hg] Dinah Melgar MD Work Phone: [facility] 07-30-2024 09:54-0400 Heart rate 92 /min Dinah Melgar MD Work Phone: [facility] 07-30-2024 09:54-0400 SaO2% (BldA) [Mass fraction] 96 % Dinah Melgar MD Work Phone: [facility] 07-30-2024 09:54-0400 Systolic blood pressure 122 mm[Hg] Dinah Melgar MD Work Phone: [facility] 07-23-2024 09:27-0400 Body mass index (BMI) [Ratio] 35.54 kg/m2 Guillaume Delgado MD, PhD Work Phone: [facility] 07-23-2024 09:27-0400 Body weight 91 kg Guillaume Delgado MD, PhD Work Phone: [facility] 07-23-2024 09:27-0400 Diastolic blood pressure 84 mm[Hg] Guillaume Delgado MD, PhD Work Phone: [facility] 07-23-2024 09:27-0400 Heart rate 84 /min Guillaume Delgado MD, PhD Work Phone: [facility] 07-23-2024 09:27-0400 Respiratory rate 16 /min Guillaume Delgado MD, PhD Work Phone: [facility] 07-23-2024 09:27-0400 SaO2% (BldA) [Mass fraction] 94 % Guillaume Delgado MD, PhD Work Phone: [facility] 07-23-2024 09:27-0400 Systolic blood pressure 129 mm[Hg] Guillaume Delgado MD, PhD Work Phone: [facility] 05-28-2024 15:09-0500 Body height 160 cm Dinah Melgar MD Work Phone: [facility] 05-28-2024 15:09-0500 Body mass index (BMI) [Ratio] 34.54 kg/m2 Dinah Melgar MD Work Phone: [facility] 05-28-2024 15:09-0500 Body weight 88.45 kg Dinah Melgar MD Work Phone: [facility] 05-28-2024 15:09-0500 Diastolic blood pressure 81 mm[Hg] Dinah Melgar MD Work Phone: [facility] 05-28-2024 15:09-0500 Heart rate 86 /min Dinah Melgar MD Work Phone: [facility] 05-28-2024 15:09-0500 Systolic blood pressure 150 mm[Hg] Dinah Melgar MD Work Phone: [facility] 05-07-2024 07:46-0500 Body mass index (BMI) [Ratio] 34 kg/m2 Dr. Dinah Melgar MD Work Phone: [facility] 05-07-2024 07:46-0500 Body temperature 97 [degF] Dr. Dinah Melgar MD Work Phone: 9(944)688-401738 [place] [address] 05-07-2024 07:46-0500 Body weight 87.[address] Dinah Melgar MD Work Phone: 2(781)011-720638 [place] [address] 05-07-2024 07:46-0500 Diastolic blood pressure 67 mm[Hg] Dr. Dinah Melgar MD Work Phone: 6(690)419-125525 [place] [address] 05-07-2024 07:46-0500 Heart rate 73 /min Dr. Dinah Melgar MD Work Phone: 9(036)894-443025 [place] [address] 05-07-2024 07:46-0500 Respiratory rate 20 /min Dr. Dinah Melgar MD Work Phone: 9(748)158-674138 [place] [address] 05-07-2024 07:46-0500 SaO2% (BldA) [Mass fraction] 93 % Dr. Dinah Melgar MD Work Phone: 2(512)260-861925 [place] [address] 05-07-2024 07:46-0500 Systolic blood pressure 108 mm[Hg] Dr. Dinah Melgar MD Work Phone: 9(129)784-620525 [place] [address] 04-30-2024 08:09-0500 Body height 160 cm Guillaume Delgado MD, PhD Work Phone: [facility] 04-30-2024 08:09-0500 Body mass index (BMI) [Ratio] 33.83 kg/m2 Guillaume Delgado MD, PhD Work Phone: [facility] 04-30-2024 08:09-0500 Body weight 86.64 kg Guillaume Delgado MD, PhD Work Phone: [facility] 04-30-2024 08:09-0500 Diastolic blood pressure 76 mm[Hg] Guillaume Delgado MD, PhD Work Phone: [facility] 04-30-2024 08:09-0500 Heart rate 78 /min Guillaume Delgado MD, PhD Work Phone: [facility] 04-30-2024 08:09-0500 SaO2% (BldA) [Mass fraction] 96 % Guillaume Delgado MD, PhD Work Phone: [facility] 04-30-2024 08:09-0500 Systolic blood pressure 136 mm[Hg] Guillaume Delgado MD, PhD Work Phone: [facility] 02-01-2024 09:10-0400 Body height 160 cm Guillaume Delgado MD, PhD Work Phone: [facility] 02-01-2024 09:10-0400 Body mass index (BMI) [Ratio] 33.9 kg/m2 Guillaume Delgado MD, PhD Work Phone: [facility] 02-01-2024 09:10-0400 Body weight 86.82 kg Guillaume Delgado MD, PhD Work Phone: [facility] 02-01-2024 09:10-0400 Diastolic blood pressure 74 mm[Hg] Guillaume Delgado MD, PhD Work Phone: [facility] 02-01-2024 09:10-0400 Heart rate 81 /min Guillaume Delgado MD, PhD Work Phone: [facility] 02-01-2024 09:10-0400 SaO2% (BldA) [Mass fraction] 93 % Guillaume Delgado MD, PhD Work Phone: [facility] 02-01-2024 09:10-0400 Systolic blood pressure 124 mm[Hg] Guillaume Delgado MD, PhD Work Phone: [facility] 01-30-2024 09:08-0400 Body height 160 cm Dinah Melgar MD Work Phone: [facility] 01-30-2024 09:08-0400 Body mass index (BMI) [Ratio] 33.9 kg/m2 Dinah Melgar MD Work Phone: [facility] 01-30-2024 09:08-0400 Body weight 86.82 kg Dinah Melgar MD Work Phone: [facility] 01-30-2024 09:08-0400 Diastolic blood pressure 50 mm[Hg] Dinah Melgar MD Work Phone: [facility] 01-30-2024 09:08-0400 Heart rate 83 /min Dinah Melgar MD Work Phone: [facility] 01-30-2024 09:08-0400 SaO2% (BldA) [Mass fraction] 94 % Dinah Melgar MD Work Phone: [facility] 01-30-2024 09:08-0400 Systolic blood pressure 112 mm[Hg] Dinah Melgar MD Work Phone: [facility] 12-19-2023 10:24-0400 Body height 160 cm Guillaume Delgado MD, PhD Work Phone: [facility] 12-19-2023 10:24-0400 Body mass index (BMI) [Ratio] 32.95 kg/m2 Guillaume Delgado MD, PhD Work Phone: [facility] 12-19-2023 10:24-0400 Body weight 84.37 kg Guillaume Delgado MD, PhD Work Phone: [facility] 12-19-2023 10:24-0400 Diastolic blood pressure 80 mm[Hg] Guillaume Delgado MD, PhD Work Phone: [facility] 12-19-2023 10:24-0400 Heart rate 76 /min Guillaume Delgado MD, PhD Work Phone: [facility] 12-19-2023 10:24-0400 SaO2% (BldA) [Mass fraction] 94 % Guillaume Delgado MD, PhD Work Phone: [facility] 12-19-2023 10:24-0400 Systolic blood pressure 136 mm[Hg] Guillaume Delgado MD, PhD Work Phone: [facility] 10-24-2023 11:39-0400 Body mass index (BMI) [Ratio] 32.95 kg/m2 Dinah Melgar MD Work Phone: [facility] 10-24-2023 11:39-0400 Body weight 84.37 kg Dinah Melgar MD Work Phone: [facility] 10-24-2023 11:39-0400 Diastolic blood pressure 67 mm[Hg] Dinah Melgar MD Work Phone: [facility] 10-24-2023 11:39-0400 Heart rate 88 /min Dinah Melgar MD Work Phone: [facility] 10-24-2023 11:39-0400 SaO2% (BldA) [Mass fraction] 92 % Dinah Melgar MD Work Phone: [facility] 10-24-2023 11:39-0400 Systolic blood pressure 111 mm[Hg] Dinah Melgar MD Work Phone: [facility] 09-16-2023 10:20-0400 Body mass index (BMI) [Ratio] 32.17 kg/m2 Guillaume Delgado MD, PhD Work Phone: [facility] 09-16-2023 10:20-0400 Body weight 82.37 kg Guillaume Delgado MD, PhD Work Phone: [facility] 09-16-2023 10:20-0400 Diastolic blood pressure 72 mm[Hg] Guillaume Delgado MD, PhD Work Phone: [facility] 09-16-2023 10:20-0400 Heart rate 89 /min Guillaume Delgado MD, PhD Work Phone: [facility] 09-16-2023 10:20-0400 Respiratory rate 20 /min Guillaume Delgado MD, PhD Work Phone: [facility] 09-16-2023 10:20-0400 SaO2% (BldA) [Mass fraction] 95 % Guillaume Delgado MD, PhD Work Phone: [facility] 09-16-2023 10:20-0400 Systolic blood pressure 143 mm[Hg] Guillaume Delgado MD, PhD Work Phone: [facility] 09-12-2023 09:13-0400 Body height 160 cm Dinah Melgar MD Work Phone: [facility] 09-12-2023 09:13-0400 Body mass index (BMI) [Ratio] 32.06 kg/m2 Dinah Melgar MD Work Phone: [facility] 09-12-2023 09:13-0400 Body weight 82.1 kg Dinah Melgar MD Work Phone: [facility] 09-12-2023 09:13-0400 Diastolic blood pressure 70 mm[Hg] Dinah Melgar MD Work Phone: [facility] 09-12-2023 09:13-0400 Heart rate 90 /min Dinah Melgar MD Work Phone: [facility] 09-12-2023 09:13-0400 SaO2% (BldA) [Mass fraction] 94 % Dinah Melgar MD Work Phone: [facility] 09-12-2023 09:13-0400 Systolic blood pressure 134 mm[Hg] Dinah Melgar MD Work Phone: [facility] 09-08-2023 20:00-0400 Body temperature 97.5 [degF] Dr. Dinah Melgar Work Phone: 9(527)232-098625 [place] [address] 09-08-2023 20:00-0400 Diastolic blood pressure 70 mm[Hg] Dr. Dinah Melgar Work Phone: 8(146)295-632825 [place] [address] 09-08-2023 20:00-0400 Heart rate 80 /min Dr. Dinah Melgar Work Phone: 1(859)495-067725 [place] [address] 09-08-2023 20:00-0400 Respiratory rate 16 /min Dr. Dinah Melagr Work Phone: 1(294)498-516938 [place] [address] 09-08-2023 20:00-0400 SaO2% (BldA) [Mass fraction] 97 % Dr. Dinah Melgar Work Phone: 5(911)639-045938 [place] [address] 09-08-2023 20:00-0400 Systolic blood pressure 126 mm[Hg] Dr. Dinah Melgar Work Phone: 2(627)998-218825 [place] [address] 09-08-2023 06:00-0400 Body mass index (BMI) [Ratio] 31.4 kg/m2 Dr. Dinah Melgar Work Phone: 9(761)313-199925 [place] [address] 09-08-2023 06:00-0400 Body weight 80.[address] Dinah Melgar Work Phone: 5(832)518-076638 [place] [address] 09-07-2023 21:40-0400 Inhaled oxygen concentration 21 % Dr. Dinah Melgar Work Phone: 2(324)283-483925 [place] [address] 09-05-2023 22:00-0400 Inhaled oxygen flow rate 2 L/min Dr. Dinah Melgar Work Phone: 4(925)999-150238 [place] [address] 08-31-2023 11:19-0400 Body height 160.[address] Dinah Melgar Work Phone: 9(567)324-133238 [place] [address] 08-20-2023 16:34-0400 Body temperature 97.8 [degF] [facility] 08-20-2023 16:34-0400 Diastolic blood pressure 101 mm[Hg] [facility] 08-20-2023 16:34-0400 Heart rate 80 /min [facility] 08-20-2023 16:34-0400 Respiratory rate 12 /min [facility] 08-20-2023 16:34-0400 SaO2% (BldA) [Mass fraction] 97 % [facility] 08-20-2023 16:34-0400 Systolic blood pressure 173 mm[Hg] [facility] 08-20-2023 12:20-0400 Body height 160.02 cm [facility] 08-20-2023 12:20-0400 Body mass index (BMI) [Ratio] 34.9 kg/m2 [facility] 08-20-2023 12:20-0400 Body weight 89.4 kg [facility] 06-13-2023 08:58-0500 Body weight 82.56 kg Sylvie Suppan KNIFE OPERATOR.PHOTOGRAPHIC AIDE Work Phone: [facility] 06-13-2023 08:58-0500 Diastolic blood pressure 72 mm[Hg] Sylvie Suppan KNIFE OPERATOR.PHOTOGRAPHIC AIDE Work Phone: [facility] 06-13-2023 08:58-0500 Heart rate 98 /min Sylvie Suppan KNIFE OPERATOR.PHOTOGRAPHIC AIDE Work Phone: [facility] 06-13-2023 08:58-0500 Respiratory rate 16 /min Sylvie Suppan KNIFE OPERATOR.PHOTOGRAPHIC AIDE Work Phone: [facility] 06-13-2023 08:58-0500 SaO2% (BldA) [Mass fraction] 95 % Sylvie Suppan KNIFE OPERATOR.PHOTOGRAPHIC AIDE Work Phone: [facility] 06-13-2023 08:58-0500 Systolic blood pressure 110 mm[Hg] Sylvie Suppan KNIFE OPERATOR.PHOTOGRAPHIC AIDE Work Phone: [facility] 06-12-2023 12:54-0500 Body temperature 97.39 [degF] Vera Ocampo KNIFE OPERATOR.FILING AND POLISHING SUPERVISOR Work Phone: [facility] 06-12-2023 12:54-0500 Body weight 82.56 kg Evra Ocampo KNIFE OPERATOR.FILING AND POLISHING SUPERVISOR Work Phone: [facility] 06-12-2023 12:54-0500 Diastolic blood pressure 80 mm[Hg] Vera Ocampo KNIFE OPERATOR.FILING AND POLISHING SUPERVISOR Work Phone: [facility] 06-12-2023 12:54-0500 Heart rate 102 /min Vera Ocampo KNIFE OPERATOR.FILING AND POLISHING SUPERVISOR Work Phone: [facility] 06-12-2023 12:54-0500 Respiratory rate 16 /min Vera Ocampo KNIFE OPERATOR.FILING AND POLISHING SUPERVISOR Work Phone: [facility] 06-12-2023 12:54-0500 SaO2% (BldA) [Mass fraction] 98 % Vera Ocampo KNIFE OPERATOR.FILING AND POLISHING SUPERVISOR Work Phone: [facility] 06-12-2023 12:54-0500 Systolic blood pressure 126 mm[Hg] Vera Ocampo KNIFE OPERATOR.FILING AND POLISHING SUPERVISOR Work Phone: [facility] 04-06-2023 16:20-0500 Body temperature 98.4 [degF] [facility] 04-06-2023 16:20-0500 Diastolic blood pressure 83 mm[Hg] [facility] 04-06-2023 16:20-0500 Heart rate 84 /min [facility] 04-06-2023 16:20-0500 Respiratory rate 16 /min [facility] 04-06-2023 16:20-0500 SaO2% (BldA) [Mass fraction] 96 % [facility] 04-06-2023 16:20-0500 Systolic blood pressure 150 mm[Hg] [facility] 04-06-2023 15:15-0500 Inhaled oxygen flow rate 2 L/min [facility] 04-06-2023 11:37-0500 Body height 160.02 cm [facility] 04-06-2023 11:37-0500 Body mass index (BMI) [Ratio] 32.1 kg/m2 [facility] 04-06-2023 11:37-0500 Body weight 82.2 kg [facility] 02-16-2023 08:13-0400 Body height 160 cm Dinah Melgar MD Work Phone: [facility] 02-16-2023 08:13-0400 Body weight 82.1 kg Dinah Melgar MD Work Phone: [facility] 02-16-2023 08:13-0400 Diastolic blood pressure 82 mm[Hg] Dinah Melgar MD Work Phone: [facility] 02-16-2023 08:13-0400 Heart rate 87 /min Dinah Melgar MD Work Phone: [facility] 02-16-2023 08:13-0400 SaO2% (BldA) [Mass fraction] 95 % Dinah Melgar MD Work Phone: [facility] 02-16-2023 08:13-0400 Systolic blood pressure 131 mm[Hg] Dinah Melgar MD Work Phone: [facility] 12-26-2022 09:39-0400 Body temperature 98.91 [degF] Anna Abdullahi KNIFE OPERATOR.FILING AND POLISHING SUPERVISOR Work Phone: [facility] 12-26-2022 09:39-0400 Body weight 81.1 kg Anna Abdullahi KNIFE OPERATOR.FILING AND POLISHING SUPERVISOR Work Phone: [facility] 12-26-2022 09:39-0400 Diastolic blood pressure 78 mm[Hg] Anna Abdullahi KNIFE OPERATOR.FILING AND POLISHING SUPERVISOR Work Phone: [facility] 12-26-2022 09:39-0400 Heart rate 105 /min Anna Abdullahi KNIFE OPERATOR.FILING AND POLISHING SUPERVISOR Work Phone: [facility] 12-26-2022 09:39-0400 Respiratory rate 18 /min Anna Abdullahi KNIFE OPERATOR.FILING AND POLISHING SUPERVISOR Work Phone: [facility] 12-26-2022 09:39-0400 SaO2% (BldA) [Mass fraction] 95 % Anna Abdullahi KNIFE OPERATOR.FILING AND POLISHING SUPERVISOR Work Phone: [facility] 12-26-2022 09:39-0400 Systolic blood pressure 128 mm[Hg] Anna Abdullahi KNIFE OPERATOR.FILING AND POLISHING SUPERVISOR Work Phone: [facility] 11-23-2022 08:52-0400 Body height 160 cm Dinah Melgar MD Work Phone: [facility] 11-23-2022 08:52-0400 Body weight 79.29 kg Dinah Melgar MD Work Phone: [facility] 11-23-2022 08:52-0400 Diastolic blood pressure 74 mm[Hg] Dinah Melgar MD Work Phone: [facility] 11-23-2022 08:52-0400 Heart rate 93 /min Dinah Melgar MD Work Phone: [facility] 11-23-2022 08:52-0400 SaO2% (BldA) [Mass fraction] 93 % Dinah Melgar MD Work Phone: [facility] 11-23-2022 08:52-0400 Systolic blood pressure 138 mm[Hg] Dinah Melgar MD Work Phone: [facility] 10-11-2022 14:08-0400 Body weight 77.56 kg Dinah Melgar MD Work Phone: [facility] 10-11-2022 14:08-0400 Diastolic blood pressure 80 mm[Hg] Dinah Melgar MD Work Phone: [facility] 10-11-2022 14:08-0400 Heart rate 90 /min Dinah Melgar MD Work Phone: [facility] 10-11-2022 14:08-0400 SaO2% (BldA) [Mass fraction] 96 % Dinah Melgar MD Work Phone: [facility] 10-11-2022 14:08-0400 Systolic blood pressure 120 mm[Hg] Dinah Melgar MD Work Phone: [facility] 10-08-2022 23:26-0400 Body temperature 98.1 [degF] Dr. Dinah Melgar Work Phone: [facility] 10-08-2022 23:26-0400 Diastolic blood pressure 76 mm[Hg] Dr. Dinah Melgar Work Phone: [facility] 10-08-2022 23:26-0400 Heart rate 87 /min Dr. Dinah Melgar Work Phone: [facility] 10-08-2022 23:26-0400 Respiratory rate 16 /min Dr. Dinah Melgar Work Phone: [facility] 10-08-2022 23:26-0400 SaO2% (BldA) [Mass fraction] 99 % Dr. Dinah Melgar Work Phone: [facility] 10-08-2022 23:26-0400 Systolic blood pressure 154 mm[Hg] Dr. Dinah Melgar Work Phone: [facility] 10-08-2022 19:34-0400 Body mass index (BMI) [Ratio] 31 kg/m2 Dr. Dinah Melgar Work Phone: [facility] 10-08-2022 19:34-0400 Body weight 79.[address] Dinah Melgar Work Phone: [facility] 10-08-2022 19:32-0400 Body height 160.[address] Dinah Melgar Work Phone: [facility] 10-06-2022 07:43-0400 Body height 160 cm Tanja Collins MD Work Phone: [facility] 10-06-2022 07:43-0400 Body weight 80.6 kg Tanja Collins MD Work Phone: [facility] 10-06-2022 07:43-0400 Diastolic blood pressure 68 mm[Hg] Tanja Collins MD Work Phone: [facility] 10-06-2022 07:43-0400 Heart rate 65 /min Tanja Collins MD Work Phone: [facility] 10-06-2022 07:43-0400 SaO2% (BldA) [Mass fraction] 95 % Tanja Collins MD Work Phone: [facility] 10-06-2022 07:43-0400 Systolic blood pressure 121 mm[Hg] Tanja Collins MD Work Phone: [facility] 09-10-2022 16:04-0400 Body temperature 97.5 [degF] Dr. Dinah Melgar Work Phone: 6(758)591-520938 [place] [address] 09-10-2022 16:04-0400 Diastolic blood pressure 84 mm[Hg] Dr. Dinah Melgar Work Phone: 8(206)643-691238 [place] [address] 09-10-2022 16:04-0400 Heart rate 88 /min Dr. Dinah Melgar Work Phone: 9(190)429-738138 [place] [address] 09-10-2022 16:04-0400 Respiratory rate 16 /min Dr. Dinah Melgar Work Phone: 2(249)147-311138 [place] [address] 09-10-2022 16:04-0400 SaO2% (BldA) [Mass fraction] 93 % Dr. Dinah Melgar Work Phone: 7(771)021-515738 [place] [address] 09-10-2022 16:04-0400 Systolic blood pressure 156 mm[Hg] Dr. Dinah Melgar Work Phone: 9(493)373-253838 [place] [address] 09-10-2022 15:38-0400 Inhaled oxygen flow rate 4 L/min Dr. Dinah Melgar Work Phone: 5(850)170-239238 [place] [address] 09-10-2022 12:56-0400 Body height 160.[address] Dinah Melgar Work Phone: 9(688)091-092438 [place] [address] 09-10-2022 12:56-0400 Body mass index (BMI) [Ratio] 30.4 kg/m2 Dr. Dinah Melgar Work Phone: 2(335)096-616538 [place] [address] 09-10-2022 12:56-0400 Body weight [address] Dinah Melgar Work Phone: [facility] 08-04-2022 10:18-0400 Body height 154.9 cm Dinah Melgar MD Work Phone: [facility] 08-04-2022 10:18-0400 Body weight 76.2 kg Dinah Melgar MD Work Phone: [facility] 08-04-2022 10:18-0400 Diastolic blood pressure 70 mm[Hg] Dinah Melgar MD Work Phone: [facility] 08-04-2022 10:18-0400 Heart rate 96 /min Dinah Mlegar MD Work Phone: [facility] 08-04-2022 10:18-0400 SaO2% (BldA) [Mass fraction] 96 % Dinah Melgar MD Work Phone: [facility] 08-04-2022 10:18-0400 Systolic blood pressure 116 mm[Hg] Dinah Melgar MD Work Phone: [facility] 06-11-2022 07:51-0500 Diastolic blood pressure 74 mm[Hg] Dr. Dinah Melgar Work Phone: [facility] 06-11-2022 07:51-0500 Heart rate 68 /min Dr. Dinah Melgar Work Phone: [facility] 06-11-2022 07:51-0500 Respiratory rate 15 /min Dr. Dinah Melgar Work Phone: [facility] 06-11-2022 07:51-0500 SaO2% (BldA) [Mass fraction] 98 % Dr. Dinah Melgar Work Phone: [facility] 06-11-2022 07:51-0500 Systolic blood pressure 129 mm[Hg] Dr. Dinah Melgar Work Phone: [facility] 06-11-2022 06:09-0500 Body height 160.[address] Dinah Melgar Work Phone: [facility] 06-11-2022 06:09-0500 Body mass index (BMI) [Ratio] 32.1 kg/m2 Dr. Dinah Melgar Work Phone: [facility] 06-11-2022 06:09-0500 Body temperature 98.2 [degF] Dr. Dinah Melgar Work Phone: [facility] 06-11-2022 06:09-0500 Body weight 82.[address] Dinah Melgar Work Phone: 4(094)843-760225 [place] [address] 05-10-2022 15:02-0500 Body temperature 99.1 [degF] Nael Benson MD Work Phone: [facility] 05-10-2022 15:02-0500 Body weight 78.83 kg Nael Benson MD Work Phone: [facility] 05-10-2022 15:02-0500 Diastolic blood pressure 84 mm[Hg] Nael Benson MD Work Phone: [facility] 05-10-2022 15:02-0500 Heart rate 97 /min Nael Benson MD Work Phone: [facility] 05-10-2022 15:02-0500 Respiratory rate 18 /min Nael Benson MD Work Phone: [facility] 05-10-2022 15:02-0500 SaO2% (BldA) [Mass fraction] 92 % Nael Benson MD Work Phone: [facility] 05-10-2022 15:02-0500 Systolic blood pressure 138 mm[Hg] Nael Benson MD Work Phone: [facility] 04-25-2022 11:39-0500 Body temperature 98.6 [degF] Dr. Dinah Melgar Work Phone: [facility] 04-25-2022 11:39-0500 Diastolic blood pressure 80 mm[Hg] Dr. Dinah Melgar Work Phone: [facility] 04-25-2022 11:39-0500 Heart rate 108 /min Dr. Dinah Melgar Work Phone: [facility] 04-25-2022 11:39-0500 Respiratory rate 17 /min Dr. Dinah Melgar Work Phone: [facility] 04-25-2022 11:39-0500 SaO2% (BldA) [Mass fraction] 94 % Dr. Dinah Melgar Work Phone: [facility] 04-25-2022 11:39-0500 Systolic blood pressure 150 mm[Hg] Dr. Dinah Melgar Work Phone: [facility] 03-26-2022 19:56-0500 Respiratory rate 18 /min [facility] 03-26-2022 18:17-0500 Body height 160.02 cm [facility] Work Phone: 03-26-2022 18:17-0500 Body mass index (BMI) [Ratio] 31.7 kg/m2 [facility] 03-26-2022 18:17-0500 Body temperature 98.9 [degF] [facility] 03-26-2022 18:17-0500 Body weight 81.2 kg [facility] 03-26-2022 18:17-0500 Diastolic blood pressure 77 mm[Hg] [facility] 03-26-2022 18:17-0500 Heart rate 86 /min [facility] 03-26-2022 18:17-0500 SaO2% (BldA) [Mass fraction] 93 % [facility] 03-26-2022 18:17-0500 Systolic blood pressure 117 mm[Hg] [facility] 02-03-2022 13:05-0400 Body height 154.9 cm Dinah Melgar MD Work Phone: [facility] 02-03-2022 13:05-0400 Body weight 77.56 kg Dinah Melgar MD Work Phone: [facility] 02-03-2022 13:05-0400 Diastolic blood pressure 72 mm[Hg] Dinah Melgar MD Work Phone: [facility] 02-03-2022 13:05-0400 Heart rate 55 /min Dinah Melgar MD Work Phone: [facility] 02-03-2022 13:05-0400 SaO2% (BldA) [Mass fraction] 94 % Dinah Melgar MD Work Phone: [facility] 02-03-2022 13:05-0400 Systolic blood pressure 126 mm[Hg] Dinah Melgar MD Work Phone: [facility] 12-18-2021 18:37-0400 Body temperature 97.39 [degF] Ryland Covarrubias KNIFE OPERATOR.FILING AND POLISHING SUPERVISOR Work Phone: [facility] 12-18-2021 18:37-0400 Body weight 78.2 kg Ryland Covarrubias KNIFE OPERATOR.FILING AND POLISHING SUPERVISOR Work Phone: [facility] 12-18-2021 18:37-0400 Diastolic blood pressure 90 mm[Hg] Ryland Covarrubias KNIFE OPERATOR.FILING AND POLISHING SUPERVISOR Work Phone: [facility] 12-18-2021 18:37-0400 Heart rate 82 /min Ryland Covarrubias KNIFE OPERATOR.FILING AND POLISHING SUPERVISOR Work Phone: [facility] 12-18-2021 18:37-0400 Respiratory rate 20 /min Ryland Covarrubias KNIFE OPERATOR.FILING AND POLISHING SUPERVISOR Work Phone: [facility] 12-18-2021 18:37-0400 SaO2% (BldA) [Mass fraction] 97 % Ryland Covarrubias KNIFE OPERATOR.FILING AND POLISHING SUPERVISOR Work Phone: [facility] 12-18-2021 18:37-0400 Systolic blood pressure 162 mm[Hg] Ryland Covarrubias KNIFE OPERATOR.FILING AND POLISHING SUPERVISOR Work Phone: [facility] 10-26-2021 09:18-0400 Body temperature 98.5 [degF] Dr. Israel Tucker Work Phone: [facility] Work Phone: 10-26-2021 09:18-0400 Diastolic blood pressure 78 mm[Hg] Dr. Israel Tucker Work Phone: [facility] Work Phone: 10-26-2021 09:18-0400 Heart rate 84 /min Dr. Israel Tucker Work Phone: [facility] Work Phone: 10-26-2021 09:18-0400 Respiratory rate 16 /min Dr. Israel Tucker Work Phone: [facility] Work Phone: 10-26-2021 09:18-0400 SaO2% (BldA) [Mass fraction] 97 % Dr. Israel Tucker Work Phone: [facility] Work Phone: 10-26-2021 09:18-0400 Systolic blood pressure 144 mm[Hg] Dr. Israel Tucker Work Phone: [facility] Work Phone: 10-23-2021 11:34-0400 Diastolic blood pressure 88 mm[Hg] [facility] Work Phone: 10-23-2021 11:34-0400 Heart rate 73 /min [facility] Work Phone: 10-23-2021 11:34-0400 Respiratory rate 15 /min [facility] Work Phone: 10-23-2021 11:34-0400 SaO2% (BldA) [Mass fraction] 98 % [facility] Work Phone: 10-23-2021 11:34-0400 Systolic blood pressure 142 mm[Hg] [facility] Work Phone: 10-23-2021 09:59-0400 Body height 160.02 cm [facility] Work Phone: 10-23-2021 09:59-0400 Body mass index (BMI) [Ratio] 30 kg/m2 [facility] Work Phone: 10-23-2021 09:59-0400 Body temperature 98.4 [degF] [facility] Work Phone: 10-23-2021 09:59-0400 Body weight 76.9 kg [facility] Work Phone: Encounters Encounter Date Encounter Type Care Provider Facility Start: 10-05-2024 End: 10-05-2024 ambulatory Nurse Intm/Famp Triage [facility] Work Phone: Nurse Phone Triage Comment on above: Fall; Back Pain Start: 09-17-2024 End: 09-17-2024 Refill Dinah Melgar MD Work Phone: [facility] [place] Comment on above: Refill Request Start: 09-03-2024 End: 09-03-2024 ambulatory GUILLAUME DELGADO Facility:[facility] Start: 09-03-2024 End: 09-03-2024 Subsequent hospital visit by physician Xr [employer] PHOTOGRAPHIC AIDE Comment on above: Closed odontoid frac ture, sequela [S12.100S] Start: 08-27-2024 End: 08-27-2024 Office outpatient visit 15 minutes Sylvie Ariza KNIFE OPERATOR.FILING AND POLISHING SUPERVISOR Work Phone: [facility] [place] Comment on above: Compression fracture of T12 vertebra, sequela (Primary Dx); Age-related osteoporosis with current pathological fracture, initial encounter; Acute low back pain without sciatica, unspecified back pain laterality Start: 08-27-2024 End: 08-27-2024 ambulatory SYLVIE Singh SUPPAN Facility:[facility] Start: 08-24-2024 End: 08-24-2024 Emergency department patient visit Dr. Dinah Melgar MD Work Phone: -Emergency Department Work Phone: Start: 08-23-2024 End: 08-24-2024 Follow-up encounter Sylvie Ariza KNIFE OPERATOR.FILING AND POLISHING SUPERVISOR Work Phone: [facility] [place] Start: 08-21-2024 End: 08-21-2024 Emergency department patient visit Dr. Dinah Melgar MD Work Phone: -Emergency Department Work Phone: Start: 08-20-2024 End: 08-20-2024 Subsequent hospital visit by physician Xr [facility] [place] Work Phone: Radiology Comment on above: Acute low back pain without sciatica, unspecified back pain laterality [M54.50] Start: 08-20-2024 End: 08-20-2024 Follow-up encounter Sylvie Ariza KNIFE OPERATOR.FILING AND POLISHING SUPERVISOR Work Phone: [facility] [place] Start: 08-20-2024 End: 08-20-2024 ambulatory SYLVIE Singh SUPPAN Facility:[facility] Start: 08-20-2024 End: 08-20-2024 Office outpatient visit 15 minutes Sylvie Ariza KNIFE OPERATOR.FILING AND POLISHING SUPERVISOR Work Phone: [facility] Comment on above: Dysuria (Primary Dx) ; Acute low back pain without sciatica, unspecified back pain laterality Start: 08-15-2024 Non-patient / Non-visit Dr. Charlee Hernandez DO -[facility] Work Phone: Start: 08-14-2024 End: 08-14-2024 ambulatory Dinah Melgar MD Work Phone: [facility] Comment on above: Georgina Colton Start: 08-14-2024 ambulatory Dinah Melgar Facility:[facility] Start: 08-14-2024 End: 08-15-2024 Evaluation and management of inpatient Dr. Jose Aj DO -[facility] Work Phone: Start: 08-12-2024 End: 08-12-2024 Emergency department patient visit Dr. Dinah Melgar MD Work Phone: -Emergency Department Work Phone: Start: 08-03-2024 End: 08-07-2024 Follow-up encounter Dinah Melgar MD Work Phone: [facility] Comment on above: Results Start: 07-30-2024 End: 07-30-2024 Subsequent hospital visit by physician Valerio [facility] Work Phone: Radiology Comment on above: Knee pain, unspecifi ed chronicity, unspecified laterality [M25.569] Start: 07-30-2024 End: 07-30-2024 ambulatory DINAH MELGAR Facility:[facility] Start: 07-30-2024 End: 07-30-2024 Patient encounter procedure [facility] Comment on above: Balance disorder (Pr imary Dx); Hyperlipidemia LDL goal <100; Statin intolerance; Uncomplicated asthma, unspecified asthma severity, unspecified whether persistent; Gastroesophageal reflux disease without esophagitis; Overactive bladder; Hypothyroidism, acquired; Closed odontoid fracture with routine healing; Depression, recurrent (HCC); Obesity, Class I, BMI 30-34.9; Falls frequently; Chronic pain of both knees; Primary hypertension; Knee pain, unspecified chronicity, unspecified laterality; Skin lesion Start: 07-23-2024 End: 07-23-2024 Patient encounter procedure Guillaume Delgado MD, PhD Work Phone: [facility] Comment on above: Closed odontoid frac ture, sequela (Primary Dx) Start: 07-23-2024 End: 07-23-2024 ambulatory GUILLAUME DELGADO Facility:[facility] Start: 07-23-2024 End: 07-23-2024 Subsequent hospital visit by physician Xr [employer] [facility] Comment on above: Closed odontoid frac ture, sequela [S12.100S] Start: 07-13-2024 End: 07-13-2024 ambulatory TON LOONEY Facility:[facility] Start: 07-13-2024 End: 07-13-2024 Patient encounter procedure Ton Looney Work Phone: Podiatry Comment on above: Onychomycosis (Prima ry Dx); Pain in toe of left foot; Pain in toe of right foot; Skin neoplasm Start: 05-28-2024 End: 05-28-2024 Subsequent hospital visit by physician Valerio [facility] Work Phone: Radiology Comment on above: Acute pain of right shoulder [M25.511] Start: 05-28-2024 End: 05-28-2024 Patient encounter procedure Dinah Melgar MD Work Phone: [facility] [place] Comment on above: Acute pain of right shoulder (Primary Dx); Edema, unspecified type; Chronic kidney disease, stage 3a (HCC); Hypothyroidism, acquired; Closed odontoid fracture with routine healing Start: 05-28-2024 End: 05-28-2024 ambulatory DINAH MELGAR Facility:[facility] Start: 05-28-2024 End: 05-28-2024 Telephone encounter Dinah Melgar MD Work Phone: Internal Medicine [facility] Comment on above: Insurance Authorizat ion Start: 05-07-2024 End: 05-07-2024 Patient encounter procedure [facility] Work Phone: Start: 05-07-2024 End: 05-07-2024 ambulatory Pam Milligan MICROSCOPIST [facility] Start: 04-30-2024 End: 04-30-2024 Subsequent hospital visit by physician Valerio [employer] [facility] Comment on above: Closed odontoid frac ture, sequela [S12.100S] Start: 04-30-2024 End: 04-30-2024 Patient encounter procedure Guillaume Delgado MD, PhD Work Phone: [facility] Comment on above: Hyperlipidemia LDL g oal <100 (Primary Dx); Closed odontoid fracture, sequela Start: 04-30-2024 End: 04-30-2024 ambulatory GUILLAUME DELGADO Facility:[facility] Start: 04-13-2024 End: 04-16-2024 ambulatory TON LOONEY Facility:[facility] Start: 04-13-2024 End: 04-13-2024 Patient encounter procedure Ton Looney Work Phone: Podiatry Comment on above: Onychomycosis (Prima ry Dx); Pain in toe of left foot; Pain in toe of right foot Start: 03-26-2024 End: 03-26-2024 Telephone encounter Dinah Melgar MD Work Phone: [facility] [place] Comment on above: Results Start: 03-26-2024 End: 03-26-2024 ambulatory DINAH MELGAR Facility:[facility] Start: 03-26-2024 End: 03-26-2024 Subsequent hospital visit by physician [facility] Work Phone: Radiology Comment on above: History of skull fra cture [Z87.81] Start: 03-25-2024 End: 03-26-2024 Refill Flora Carnes PA-C Work Phone: [facility] [place] Comment on above: Refill Request Start: 02-06-2024 End: 02-06-2024 ambulatory Pam Milligan NP Facility:[facility] Start: 02-01-2024 End: 02-01-2024 Patient encounter procedure Guillaume Delgado MD, PhD Work Phone: [facility] Comment on above: Closed odontoid frac ture, sequela (Primary Dx) Start: 02-01-2024 End: 02-01-2024 ambulatory GUILLAUME SANDY Facility:[id number] Start: 01-30-2024 End: 01-30-2024 ambulatory Pam Milligan NP [facility] Start: 01-30-2024 End: 01-30-2024 ambulatory DINAH MELGAR Facility:[facility] Start: 01-30-2024 End: 01-30-2024 Patient encounter procedure Dinah Melgar MD Work Phone: [facility] [place] Comment on above: Hyperlipidemia LDL g oal <100 (Primary Dx); Gastroesophageal reflux disease without esophagitis; Hypothyroidism, acquired; Statin intolerance; History of skull fracture; Balance disorder; Depression, recurrent ([facility]); Need for vaccination; Encounter for screening examination for other mental health and behavioral disorders; Disorder of bone; Closed odontoid fracture with routine healing; Other osteoporosis; Fatigue, unspecified type; Primary hypertension; Chronic kidney disease, stage 3a ([facility]) Start: 01-04-2024 End: 01-04-2024 ambulatory URIEL ENG Facility:[facility] Start: 12-19-2023 End: 12-19-2023 Patient encounter procedure Guillaume Delgado MD, PhD Work Phone: [facility] Comment on above: Closed odontoid frac ture, sequela (Primary Dx) Start: 12-19-2023 End: 12-19-2023 ambulatory GUILLAUME DELGADO Facility:[facility] Start: 10-24-2023 End: 10-24-2023 ambulatory DINAH MELGAR Facility:[facility] Start: 10-24-2023 End: 10-24-2023 Patient encounter procedure Dinah Melgar MD Work Phone: [facility] [place] Comment on above: Closed odontoid frac ture with routine healing, subsequent encounter (Primary Dx); Hyperlipidemia LDL goal <100; Unspecified sleep apnea; Uncomplicated asthma, unspecified asthma severity, unspecified whether persistent; Mild intermittent asthma, uncomplicated; Hypothyroidism, acquired; Depression, recurrent (HCC); Statin intolerance; Mixed incontinence Start: 10-10-2023 ambulatory Dinah Melgar MD Work Phone: [facility] [place] Comment on above: Pain medication Start: 10-10-2023 Telephone encounter Dinah Melgar MD Work Phone: [facility] Start: 09-27-2023 MC Get Medical Advice Dinah Melgar MD Work Phone: [facility] [place] Comment on above: Medication Refills Start: 09-16-2023 End: 09-16-2023 ambulatory Dinah Melgar MD Work Phone: [facility] Comment on above: medication question Start: 09-16-2023 End: 09-16-2023 Patient encounter procedure Guillaume Delgado MD, PhD Work Phone: [facility] Comment on above: Closed odontoid frac ture, sequela (Primary Dx) Onychomycosis (Prima ry Dx); Pain in toe of left foot; Pain in toe of right foot Start: 09-15-2023 Telephone encounter Dinah Melgar MD Work Phone: [facility] [place] Comment on above: PT plan of care Start: 09-12-2023 End: 09-12-2023 Subsequent hospital visit by physician Valerio [facility] [place] Work Phone: Radiology Comment on above: Closed nondisplaced odontoid fracture with type II morphology and nonunion, subsequent encounter [S12.112K] Start: 09-12-2023 End: 09-12-2023 Patient encounter procedure Dinah Melgar MD Work Phone: [facility] [place] Comment on above: History of cervical fracture (Primary Dx); Obesity, Class I, BMI 30-34.9; Falls frequently; Hypothyroidism, acquired; 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 Dinah Melgar Work Phone: [facility] Work Phone: Start: 09-08-2023 End: 09-08-2023 ambulatory Dinah Melgar MD Work Phone: [facility] [place] Comment on above: Opened In Error Start: 09-08-2023 Non-patient / Non-visit Dr. Gabriel Melgar Work Phone: [facility] Work Phone: Start: 09-08-2023 End: 09-08-2023 ambulatory Dinah Melgar Facility:[facility] Start: 09-07-2023 Non-patient / Non-visit Dr. Gabriel Melgar Work Phone: [facility] Work Phone: Start: 09-06-2023 Telephone encounter Dinah Melgar MD Work Phone: [facility] [place] Comment on above: [facility] orders needed Start: 09-05-2023 Non-patient / Non-visit Dr. Gabriel Melgar Work Phone: [facility] Work Phone: Start: 09-01-2023 Non-patient / Non-visit Dr. Gabriel Melgar Work Phone: [facility] Work Phone: Start: 08-31-2023 Non-patient / Non-visit Dr. Gabriel Melgar Work Phone: [facility] Work Phone: Start: 08-29-2023 Non-patient / Non-visit Dr. Gabriel Melgar Work Phone: [facility] Work Phone: Start: 08-26-2023 Non-patient / Non-visit Dr. Gabriel Melgar Work Phone: [facility] Work Phone: Start: 08-25-2023 Non-patient / Non-visit Dr. Gabriel Melgar Work Phone: [facility] Work Phone: Start: 08-24-2023 ambulatory Dinah Melgar MD Work Phone: [facility] [place] Comment on above: Georgina Colton Start: 08-24-2023 Non-patient / Non-visit Dr. Gabriel Melgar Work Phone: [facility] Work Phone: Start: 08-23-2023 End: 09-08-2023 Evaluation and management of inpatient Dr. Dinah Melgar Work Phone: [facility] Work Phone: Start: 08-20-2023 End: 08-20-2023 Emergency department patient visit [facility] Work Phone: Start: 06-16-2023 Telephone encounter Sylvie Ariza KNIFE OPERATOR.PHOTOGRAPHIC AIDE Work Phone: [facility] [place] Comment on above: Results Start: 06-15-2023 ambulatory Sylvie Benson upjluis KNIFE OPERATOR.PHOTOGRAPHIC AIDE Work Phone: [facility] [place] Comment on above: UA/C&S Start: 06-14-2023 End: 06-14-2023 Patient encounter procedure Ton Looney Work Phone: Podiatry Comment on above: Onychomycosis (Prima ry Dx); Pain in toe of left foot; Pain in toe of right foot Refill Request Start: 06-13-2023 Telephone encounter Sylvie Ariza KNIFE OPERATOR.PHOTOGRAPHIC AIDE Work Phone: [facility] [place] Comment on above: Medication Problem Start: 06-13-2023 End: 06-13-2023 Office outpatient visit 25 minutes Sylvie Samantha Ariza KNIFE OPERATOR.PHOTOGRAPHIC AIDE Work Phone: [facility] [place] Comment on above: Balance disorder (Pr imary Dx); Hypothyroidism, acquired; Falls frequently; Numbness and tingling of both feet; 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 behavioral disturbance (HCC); Seasonal allergic rhinitis due to pollen Start: 06-12-2023 End: 06-12-2023 Patient encounter procedure Vera Ocampo APRN.CNP Work Phone: [facility] Comment on above: Dizziness (Primary D x) Start: 04-06-2023 End: 04-06-2023 Admission to same day surgery center [facility] Start: 04-06-2023 End: 04-06-2023 ambulatory [facility] Work Phone: Start: 02-16-2023 End: 02-16-2023 Patient encounter procedure Dinah Melgar MD Work Phone: [facility] [place] Comment on above: Acute cough (Primary Dx); Mild intermittent asthma, uncomplicated; Uncomplicated asthma, unspecified asthma severity, unspecified whether persistent; Unspecified sleep apnea; Hyperlipidemia LDL goal <100; Overactive bladder; Hypothyroidism, acquired; Statin intolerance; History of skull fracture; Depression, recurrent (HCC); Dementia without behavioral disturbance (HCC); Bronchitis; Multiple falls; Contusion of other part of head, initial encounter Start: 01-24-2023 End: 01-24-2023 OT/PT/Speech Visit Vera Matthews PT [facility] Comment on above: Balance disorder (Pr imary Dx); Falls frequently; Numbness and tingling of both feet; Acute pain of left shoulder Start: 01-20-2023 End: 01-20-2023 OT/PT/Speech Visit Vera Matthews PT [facility] Comment on above: Acute pain of left s houlder (Primary Dx); Balance disorder; Falls frequently; Numbness and tingling of both feet Start: 01-18-2023 End: 01-18-2023 OT/PT/Speech Visit Awa Mims PTA Work Phone: [facility] Comment on above: Acute pain of left s houlder (Primary Dx); Balance disorder; Falls frequently; Numbness and tingling of both feet Start: 01-03-2023 End: 01-03-2023 OT/PT/Speech Visit Awa Rodriguezosman [facility] Work Phone: [facility] Comment on above: Balance disorder (Pr imary Dx); Acute pain of left shoulder; Falls frequently; Numbness and tingling of both feet Start: 12-29-2022 End: 12-29-2022 OT/PT/Speech Visit Vera Matthews PT [facility] Comment on above: Balance disorder (Pr imary Dx); Falls frequently; Numbness and tingling of both feet Start: 12-27-2022 End: 12-27-2022 [facility] Comment on above: Acute pain of left s houlder (Primary Dx); Balance disorder; Falls frequently; Numbness and tingling of both feet Start: 12-26-2022 End: 12-26-2022 Patient encounter procedure Anna Fernando 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 Work Phone: [facility] Comment on above: Laceration of left i ndex finger without foreign body without damage to nail, initial encounter (Primary Dx) Start: 12-13-2022 End: 12-13-2022 OT/PT/Speech Visit Vera Matthews PT [facility] Comment on above: Acute pain of left s houlder (Primary Dx); Balance disorder; Falls frequently; Numbness and tingling of both feet Start: 12-08-2022 End: 12-08-2022 OT/PT/Speech Visit Awa Kasosman [facility] Work Phone: [facility] Comment on above: Acute pain of left s houlder (Primary Dx); Balance disorder; Falls frequently; Numbness and tingling of both feet Start: 12-02-2022 Refill Dinah Melgar MD Work Phone: [facility] [place] Comment on above: Refill Request Medication Refill Start: 12-01-2022 End: 12-01-2022 OT/PT/Speech Visit Vera Matthews PT [facility] Comment on above: Acute pain of left s houlder (Primary Dx); Balance disorder; Falls frequently; Numbness and tingling of both feet Start: 11-26-2022 End: 11-26-2022 OT/PT/Speech Visit Awa Mims DURGA Work Phone: [facility] Comment on above: Balance disorder (Pr imary Dx); Falls frequently; Numbness and tingling of both feet Start: 11-23-2022 End: 11-23-2022 OT/PT/Speech Visit Vera Matthews PT [facility] Comment on above: Balance disorder (Pr imary Dx); Falls frequently; Numbness and tingling of both feet Start: 11-23-2022 End: 11-23-2022 Subsequent hospital visit by physician Valerio [facility] Work Phone: Radiology Comment on above: Acute pain of left s houlder [M25.512] Start: 11-23-2022 End: 11-23-2022 Patient encounter procedure Dinah Melgar MD Work Phone: [facility] [place] Comment on above: Gastroesophageal ref lux disease without esophagitis (Primary Dx); Chronic cough; Mild intermittent asthma, uncomplicated; Imbalance; Acute pain of left shoulder Start: 11-15-2022 End: 11-15-2022 OT/PT/Speech Visit Vera Matthews PT [facility] Comment on above: Falls frequently (Pr imary Dx); Balance disorder; Numbness and tingling of both feet Start: 10-11-2022 End: 10-11-2022 Subsequent hospital visit by physician Valerio [facility] Work Phone: Radiology Comment on above: Acute cough [R05.1] Start: 10-11-2022 End: 10-11-2022 Patient encounter procedure Dinah Melgar MD Work Phone: [facility] [place] Comment on above: Acute cough (Primary Dx); Dementia without behavioral disturbance (HCC); Imbalance Start: 10-08-2022 End: 10-08-2022 Emergency department patient visit Dr. Dinah Melgar Work Phone: [facility] Start: 10-06-2022 End: 10-06-2022 Patient encounter procedure Tanja Collins MD Work Phone: Neurology Comment on above: Numbness and tinglin g of both feet (Primary Dx); Familial tremor; Balance disorder; Ataxia; Falls frequently; Mild cognitive impairment; NAYA (obstructive sleep apnea) Start: 09-10-2022 End: 09-10-2022 Admission to same day surgery center Dr. Dinah Melgar Work Phone: [facility] Start: 09-09-2022 End: 09-09-[address] Dinah Melgar Work Phone: [facility] Work Phone: Start: 09-09-2022 End: 09-09-[address] Dinah Melgar Work Phone: [facility] Start: 09-07-2022 End: 09-07-2022 Non-patient / Non-visit Dr. Dinah Melgar Work Phone: [facility] Start: 09-06-2022 ambulatory Dinah Melgar MD Work Phone: [facility] [place] Comment on above: medication renewal Start: 09-05-2022 Refill Dinah Melgar MD Work Phone: [facility] [place] Comment on above: Refill Request Start: 08-04-2022 End: 08-04-2022 Patient encounter procedure Dinah Melgar MD Work Phone: [facility] [place] Comment on above: Hyperlipidemia LDL g oal <100 (Primary Dx); Chronic kidney disease, stage 3a (HCC); Uncomplicated asthma, unspecified asthma severity, unspecified whether persistent; Unspecified sleep apnea; Gastroesophageal reflux disease without esophagitis; Overactive bladder; Hypothyroidism, acquired; Statin intolerance; Thrombocytosis; Renal insufficiency; Familial tremor; Balance disorder; Ataxia; Falls frequently; Mild cognitive impairment Start: 07-15-2022 Telephone encounter Ryland álvarez APRN.CNP Work Phone: [facility] Comment on above: Results Start: 06-25-2022 Telephone encounter Dinah Melgar MD Work Phone: [facility] [place] Comment on above: [place] [facility] Start: 06-11-2022 End: 06-11-2022 Emergency department patient visit Dr. Dinah Melgar Work Phone: [facility] Start: 05-10-2022 End: 05-10-2022 Patient encounter procedure Nael Benson MD Work Phone: [facility] Comment on above: Acute COVID-19 (Prim dolores Dx) Refill Request Start: 04-25-2022 End: 04-25-[address] Dinha Melgar Work Phone: [facility] Start: 03-26-2022 End: 03-26-2022 [facility] Start: 03-05-2022 Telephone encounter M Guillaume Villegas PA-C Work Phone: [facility] [place] Comment on above: Orders medication issue Start: 02-03-2022 End: 02-03-2022 Patient encounter procedure Dinah Melgar MD Work Phone: [facility] [place] Comment on above: Uncomplicated asthma , unspecified asthma severity, unspecified whether persistent (Primary Dx); Unspecified sleep apnea; Hyperlipidemia LDL goal <100; Statin intolerance; Situational depression; Need for influenza vaccination; Overactive bladder; Hypothyroidism, acquired; Need for hepatitis C screening test Start: 01-06-2022 End: 01-06-2022 Subsequent hospital visit by physician Xr [facility] Gigi Work Phone: Radiology Comment on above: Bilateral foot pain [M79.671, M79.672] Start: 12-18-2021 End: 12-18-2021 Patient encounter procedure Ryland Covarrubias APRN.CNP Work Phone: [facility] Comment on above: Skin tear of left lo wer leg without complication, initial encounter (Primary Dx); Need for tetanus booster Start: 11-16-2021 End: 11-16-[address] Israel Tucker Work Phone: [facility] Start: 10-26-2021 End: 10-26-[address] Israel Tucker Work Phone: [facility] Start: 10-23-2021 End: 10-23-2021 Emergency department patient visit [facility] Start: 10-16-2021 End: 10-16-2021 Patient encounter procedure [facility] Start: 10-15-2021 End: 10-15-2021 Patient encounter procedure [facility], [facility] Start: 10-07-2021 End: 10-07-2021 Patient encounter procedure [facility], [facility] Start: 08-26-2021 End: 08-26-2021 Patient encounter procedure [facility], [facility] Start: 06-05-2021 End: 06-05-2021 Patient encounter procedure [facility], Specimen Start: 06-03-2021 End: 06-03-2021 Patient encounter procedure [facility], [facility] Start: 05-21-2021 End: 05-21-2021 Patient encounter procedure [facility]Cat Scan, [facility] Start: 02-16-2021 End: 02-16-2021 Subsequent hospital visit by physician Xr [facility] Work Phone: Radiology Comment on above: Fall from slip, trip , or stumble, initial encounter [W01.0XXA] Start: 10-23-2020 End: 10-23-2020 Subsequent hospital visit by physician Xr [facility] Work Phone: Radiology Comment on above: Knee injury, left, i nitial encounter [S89.92XA] Procedures Date Procedure Procedure Detail Performing Clinician Start: 09-03-2024 Ct cervical spine w/ o contrast material Guillaume Delgado MD, PhD Work Phone: Start: 08-24-2024 CT of lumbar spine Dr. Dinah Melgar MD Work Phone: Start: 08-21-2024 Computed tomography of abdomen and pelvis with intravenous contrast Dr. Dinah Melgar MD Work Phone: Start: 08-20-2024 Radiologic exam abdo men 1 view Sylvie Ariza KNIFE OPERATOR.FILING AND POLISHING SUPERVISOR Work Phone: Start: 08-20-2024 Urnls dip stick/tabl et rgnt auto w/o microscopy Sylvie Singh Suppjaciel KNIFE OPERATOR.FILING AND POLISHING SUPERVISOR Work Phone: Start: 08-14-[address] Dinah Melgar MD Work Phone: Start: 08-13-2024 CT angiography of ch est with contrast Dr. Dinah Melgar MD Work Phone: Start: 08-13-2024 Plain chest X-ray Dr. Miguel Melgar MD Work Phone: Start: 08-13-2024 Computed tomography of abdomen and pelvis with intravenous contrast Dr. Dinah Melgar MD Work Phone: Start: 08-13-2024 CT of lumbar spine Dr. Dinah Melgar MD Work Phone: Start: 08-13-2024 SARS-CoV-2, Influenz a & RSV (PCR) Dr. Dinah Melgar MD Work Phone: Start: 08-13-[address] Omar Melgar MD Work Phone: Start: 08-12-2024 X-ray of lumbar spin e, two or three views Dr. Dinah Melgar MD Work Phone: Start: 03-26-2024 BD DXA TRABECULAR RODGER NE SCORE (TBS) Dinah Melgar MD Work Phone: Start: 03-26-2024 Dxa bone density isabela dy 1/> sites axial skel Dinah Melgar MD Work Phone: Start: 01-30-2024 PFIZER-BIONTCaratLane COVI D-19 VACCINE AGE 12+ YR Dinah Melgar MD Work Phone: Start: 09-12-2023 Radex spine cervical 2 or 3 views Joanne Villegas PA-C Work Phone: Start: 08-24-2023 Measurement of occul t blood in stool specimen using immunoassay Dr. Dinah Melgar Work Phone: Start: 08-24-2023 Diagnostic radiograp hy of abdomen Dr. Dinah Melgar Work Phone: Start: 08-20-2023 CT cervical spine wi thout contrast Start: 08-20-2023 CT of head without contrast Start: 04-06-2023 Interstim Therapy 2 (Not Applicable) Start: 11-23-2022 Radex shoulder compl ete minimum 2 views Dinah Melgar MD Work Phone: Start: 10-11-2022 Radiologic exam ches t 2 views Dinah Melgar MD Work Phone: Start: 10-11-2022 COVID WITH FLUA+B, ROUTINE Dinah Melgar MD Work Phone: Start: 10-08-2022 CT of head without contrast Dr. Dinah Melgar Work Phone: Start: 09-10-2022 Cysto,Transurethal R esec Bladder,[facility] (Not Applicable) Dr. Dinah Melgar Work Phone: Start: 09-09-2022 Computed tomography of abdomen and pelvis with intravenous contrast Dr. Dinah Melgar Work Phone: Start: 06-11-[address]22 Pelvis X-ray Dr. Ayan Melgar Work Phone: Start: 06-11-2022 Radiologic examinati on of knee Dr. Dinah Melgar Work Phone: Start: 06-11-2022 CT cervical spine wi thout contrast Dr. Dinah Melgar Work Phone: Start: 06-11-[address] Ayan Melgar Work Phone: Start: 06-11-2022 CT of head without contrast Dr. Dinah Melgar Work Phone: Start: 03-26-2022 X-ray of chest posteroanterior view Start: 02-03-2022 INFLUENZA SEASONAL QUADRIVALENT HIGH DOSE AGE 65+ Dinah Melgar MD Work Phone: Start: 01-06-2022 Radex foot complete minimum 3 views Ton Looney Work Phone: Start: 11-16-2021 MRI of brain without contrast Dr. Israel Tucker Work Phone: Start: 10-23-2021 CT cervical spine wi thout contrast Start: 10-23-2021 CT of head without contrast Start: 10-16-2021 End: 10-16-2021 Clostridium difficile detection Start: 10-16-2021 Enteric Bacteriology Start: 10-16-2021 End: 10-16-2021 Lactoferrin measurement Start: 10-16-2021 Measurement of occul t blood in stool specimen using immunoassay Start: 10-15-2021 Diagnostic radiograp hy of abdomen Start: 10-15-2021 Urine culture Start: 10-07-2021 X-ray of lumbar spin e, two or three views Start: 08-26-2021 X-ray of lumbar spin e, two or three views Start: 06-05-2021 End: 06-05-2021 Ova OR parasites identification Start: 06-03-2021 Diagnostic radiograp hy of abdomen, decubitus and erect Start: 05-21-2021 MRI of lower extremity Start: 02-16-2021 Radex ribs uni w/pos teroant ch minimum 3 views Marcelle Marcos APRN.CNP Work Phone: Start: 10-23-2020 Radiologic exam knee complete 4/more views Luly Perez PA-C Work Phone: Clostridium difficil e detection Enteric Bacteriology Lactoferrin measurement Measurement of occul t blood in stool specimen using immunoassay Ova [place] parasites identification Dr. Israel Tucker Work Phone: Urine culture Plan of Treatment Date Care Activity Detail Author Start: 12-19-2031 Urine microalbumin profile [facility] Start: 05-28-2027 Diabetes Screening Diabetes Screening [facility] Start: 01-29-2027 Diabetes Screening Diabetes Screening [facility] Start: 09-11-2026 Diabetes Screening Diabetes Screening [facility] Start: 08-22-2026 Diabetes Screening Diabetes Screening [facility] Start: 06-13-2026 Diabetes Screening Diabetes Screening [facility] Start: 03-26-2026 Screening for osteoporosis Bone Density Screening [facility] Start: 08-02-2025 DIABETES SCREEN DIABETES SCREEN [facility] Start: 08-02-2025 Diabetes Screening Diabetes Screening [facility] Start: 05-28-2025 Annual PCP Team Chronic Disease Visit Annual PCP Team Chronic Disease Visit [facility] Start: 02-18-2025 End: 02-18-2025 Patient encounter procedure 02/18/2025 10:00 AM EDT [facility] [place] [address] [facility] [place] [address] Dinah Melgar MD [address] [facility] [place] [address] Medicare Wellness [facility] [place] Comment on above: Medicare Wellness Start: 01-31-2025 BP Controlled (<130/80) BP Controlled (<130/80) [facility] Start: 01-29-2025 Annual PCP Team Chronic Disease Visit Annual PCP Team Chronic Disease Visit [facility] Start: 01-29-2025 Anxiety Screening Anxiety Screening [facility] Start: 01-29-2025 BP Controlled (<130/80) BP Controlled (<130/80) [facility] Start: 01-29-2025 Complete blood count Hemoglobin/Hematocrit [facility] Start: 01-29-2025 Creatinine measurement Serum Creatinine [facility] Start: 01-29-2025 RSV Vaccine (1 - 1-dose 75+ series) RSV Vaccine (1 - 1-dose 75+ series) [facility] Comment on above: Postponed from 2018 (Declined at t his time) Start: 10-23-2024 Annual PCP Team Chronic Disease Visit Annual PCP Team Chronic Disease Visit [facility] Start: 10-19-2024 End: 10-19-2024 Patient encounter procedure Podiatry Comment on above: 3 month follow up nail care Start: 09-11-2024 Annual PCP Team Chronic Disease Visit Annual PCP Team Chronic Disease Visit [facility] Start: 09-11-2024 Complete blood count Hemoglobin/Hematocrit [facility] Start: 09-11-2024 Creatinine measurement Serum Creatinine [facility] Start: 09-03-2024 End: 09-03-2024 Patient encounter procedure RADIO CT [facility] [employer] Comment on above: cervical CT CERVICAL WO XR CERV AP/LAT/FLEX/ EXT/ODON Start: 08-27-2024 End: 08-27-2024 Patient encounter procedure 08/27/2024 2:20 PM EDT Office Visit Family [facility] [address] [place] [address] Sylvie Ariza 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 [address] [facility] [place] [address] back pain/fracture follow up [facility] [place] Comment on above: back pain/fracture follow up Start: 08-24-2024 [facility] Start: 08-21-2024 [facility] Start: 08-15-2024 Patient discharge [facility] Start: 08-14-2024 Continuous positive airway pressure ventilation treatment [facility] Start: 08-14-2024 Physiotherapy of chest [facility] Start: 08-14-2024 Application of intermittent pneumatic compression device [facility] Start: 08-14-2024 Following clinical pathway protocol [facility] Start: 08-14-2024 Assessment of risk of venous thromboembolism [facility] Start: 08-14-2024 Incentive spirometry [facility] Start: 08-14-2024 Insertion of catheter into peripheral vein [facility] Start: 08-14-2024 Measuring intake and output [facility] Start: 08-14-2024 Oxygen therapy [facility] Start: 08-14-2024 Providing care according to standard [facility] Start: 08-14-2024 Provision of activity privileges [facility] Start: 08-14-2024 Referral to service [facility] Start: 08-14-2024 [facility] Start: 08-14-2024 End: 08-14-2024 Hospital admission, emergency, from emergency room, medical nature [facility] Start: 08-14-2024 Thyroid stimulating hormone measurement [facility] Start: 08-14-2024 Verification routine [facility] Start: 08-14-2024 Admission procedure [facility] Start: 08-13-2024 End: 08-13-2024 [facility] Start: 08-13-2024 Bacteria identified in Urine by Culture Urine Culture [facility] Start: 08-13-2024 Urine culture [facility] Start: 08-12-2024 Emergency department visit low/moder severity EMERGENCY DEPT VISIT [facility] Start: 08-12-2024 [facility] Start: 07-30-2024 End: 07-30-2024 Patient encounter procedure 07/30/2024 10:00 AM EDT [facility] [address] [place] [address] Dinah Melgar MD [address] [facility] [place] [id number] [facility] Comment on above: 6 month follow up Start: 07-29-2024 Covid-19 Vaccine () Covid-19 Vaccine () [facility] Start: 07-23-2024 End: 07-23-2024 Patient encounter procedure [facility] [employer] Comment on above: cervcial 3 month follow up xr ay today XR CERV AP/LAT/FLEX/ EXT/ODONTOID Start: 07-13-2024 End: 07-13-2024 Patient encounter procedure 07/13/2024 1:00 PM EST Office Visit Podiatry [address] [place], [place] [id number] Ton Looney [address] [address] 3 month follow up nail care Podiatry Comment on above: 3 month follow up nail care Start: 06-23-2024 End: 06-23-2024 Patient encounter procedure 06/23/2024 9:40 AM EST Office Visit [facility] [place] [address] [facility] [place] [address] Dinah Melgar MD [address] [facility] [place] [id number] follow up [facility] Yajaira Gallardo Comment on above: follow up Start: 05-28-2024 End: 08-27-2024 CBC W Auto Differential panel - Blood [facility] Work Phone: Comment on above: Expected: 05/28/2024, Expires: Start: 05-28-2024 End: 08-27-2024 Comprehensive metabolic 2000 panel - Serum or Plasma [facility] Comment on above: Expected: 05/28/2024, Expires: Start: 05-28-2024 End: 08-27-2024 Thyrotropin [Units/volume] in Serum or Plasma [facility] Comment on above: Expected: 05/28/2024, Expires: Start: 05-09-2024 Advance Directive Discussion Advance Directive Discussion [facility] Start: 04-30-2024 End: 04-30-2024 Patient encounter procedure 04/30/2024 8:30 AM EST Office Visit [facility] [address] [place] [address] Guillaume Delgado MD, PhD [address] [facility] [place] [address] 3 month follow up [facility] Comment on above: 3 month follow up Start: 04-13-2024 End: 04-13-2024 Patient encounter procedure 04/13/2024 3:20 PM EST Office Visit Podiatry [address] [place] [place] [address] Ton Looney [address] [address] 3 month follow up nail care Podiatry Comment on above: 3 month follow up nail care Start: 03-26-2024 End: 03-26-2024 Patient encounter procedure 03/26/2024 11:15 AM EST Appointment Radiology [address] [place] [id number] History of skull fracture [Z87.81] Radiology Comment on above: History of skull fracture [Z87.81] Start: 03-23-2024 End: 03-23-2024 Patient encounter procedure 03/23/2024 1:00 PM EST Office Visit Podiatry [address] [place] [place] [address] Ton Looney [address] [place] [place] [address] 3 month follow up nail care Podiatry Comment on above: 3 month follow up nail care Start: 02-17-2024 Annual PCP Team Chronic Disease Visit Annual PCP Team Chronic Disease Visit [facility] Start: 02-17-2024 Covid-19 Vaccine () Covid-19 Vaccine () [facility] Comment on above: Postponed from 01/07/2023 (Declined at t his time) Start: 02-01-2024 End: 02-01-2024 Patient encounter procedure 02/01/2024 9:15 AM EDT Office Visit [facility] [address] [place] [address] Guillaume Delgado MD, PhD [address] [facility] [place] [address] follow up [facility] Comment on above: follow up Start: 01-30-2024 End: 04-30-2024 25-hydroxyvitamin D3 [Mass/volume] in Serum or Plasma [facility] Comment on above: Expected: 01/30/2024, Expires: Start: 01-30-2024 End: 04-30-2024 Basic metabolic 2000 panel - Serum or Plasma [facility] Comment on above: Expected: 01/30/2024, Expires: 4 Start: 01-30-2024 End: 04-30-2024 CBC W Auto Differential panel - Blood [facility] Comment on above: Expected: 01/30/2024, Expires: Start: 01-30-2024 End: 04-30-2024 Thyrotropin [Units/volume] in Serum or Plasma [facility] Comment on above: Expected: 01/30/2024, Expires: Start: 01-30-2024 End: 01-30-2024 Patient encounter procedure 01/30/2024 9:20 AM EDT Office Visit [facility] [place] [address] [place] [address] Dinah Melgar MD [address] [facility] [place] [address] 3 month follow up [facility] [place] Comment on above: 3 month follow up Start: 01-08-2024 Covid-19 Vaccine () Covid-19 Vaccine () [facility] Start: 01-08-2024 Influenza vaccination [facility] Start: 12-20-2023 End: 12-20-2023 Patient encounter procedure 12/20/2023 10:00 AM EDT Office Visit Podiatry [address] [place] [address] Ton Looney [address] [place] [address] 3 month follow up nail care Podiatry Comment on above: 3 month follow up nail care Start: 12-19-2023 End: 12-19-2023 Patient encounter procedure 12/19/2023 10:30 AM EDT Office Visit [facility] [address] [facility] [id number] Guillaume Delgado MD, PhD [address] [facility] [place] [address] 3 month follow up will get xray before [facility] Comment on above: 3 month follow up will get xray before Start: 11-24-2023 ANNUAL PCP TEAM CHRONIC DISEASE VISIT ANNUAL PCP TEAM CHRONIC DISEASE VISIT [facility] Start: 11-06-2023 Influenza vaccination Influenza Vaccine (#1) [facility] Comment on above: Postponed from 01/07/2023 (Declined at t his time) Start: 10-24-2023 End: 10-24-2023 Patient encounter procedure 10/24/2023 11:20 AM EDT Office Visit [facility] [place] [address] [place] [address] Dinah Melgar MD [address] [facility] [place] [address] 6 week follow up Family Yajaira Gallardo Comment on above: 6 week follow up Start: 10-12-2023 ANNUAL PCP TEAM CHRONIC DISEASE VISIT ANNUAL PCP TEAM CHRONIC DISEASE VISIT [facility] Start: 09-16-2023 End: 09-16-2023 Patient encounter procedure [facility] Comment on above: 6 week follow up will get xrays before 3 MONTH FOLLOW UP Start: 09-12-2023 End: 09-12-2023 Patient encounter procedure Family [facility] [place] Comment on above: 3 month f/u 3 month f/u-hospital follow up Start: 09-08-2023 Polysomnography [facility] Start: 09-08-2023 Patient discharge [facility] Start: 09-06-2023 Referral to service [facility] Start: 09-06-2023 [facility] Start: 09-05-2023 [facility] Start: 08-30-2023 Inhalation therapy procedure [facility] Start: 08-29-2023 [facility] Start: 08-29-2023 Introduction of urinary catheter [facility] Start: 08-25-2023 Measuring intake and output [facility] Start: 08-24-2023 Urinary bladder residual urine study [facility] Start: 08-23-2023 Application of intermittent pneumatic compression device [facility] Start: 08-23-2023 Recommendation to continue with treatment [facility] Start: 08-23-[address] [facility] Start: 08-23-2023 Referral to service [facility] Start: 08-23-2023 Admission procedure [facility] Start: 08-23-2023 Patient referral to dietitian [facility] Start: 08-23-2023 Referral to occupational therapist [facility] Start: 08-23-[address] [facility] Start: 08-23-2023 End: 08-23-2023 [facility] Start: 08-23-2023 Speech therapy assessment [facility] Start: 08-20-2023 Emergency department visit moderate severity EMERGENCY DEPT VISIT LOW MDM [facility] Start: 08-20-2023 Iv infusion hydration each additional hour HYDRATE IV INFUSION ADD-ON [facility] Start: 08-20-2023 Simple repair f/e/e/n/l/m 2.5cm/< RPR F/E/E/N/L/M 2.5 CM/< [facility] Start: 08-20-2023 Ther proph/dx njx ea seql iv push sbst/drug fac TX/PRO/DX INJ SAME DRUG SHEET COMBINING OPERATOR [facility] Start: 08-20-2023 Ther proph/dx njx iv push single/1st sbst/drug THER/PROPH/DIAG INJ IV PUSH [facility] Start: 08-20-2023 Therapeutic injection iv push each new drug TX/PRO/DX INJ NEW DRUG ADDON [facility] Start: 08-18-2023 End: 10-18-2023 CBC panel - Blood by Automated count CBC Lab Routine Hypothyroidism, acquired Expected: 08/18/2023, Expires: 10/18/2023 [facility] Work Phone: Comment on above: Expected: 08/18/2023, Expires: 4 Start: 08-18-2023 End: 10-18-2023 Comprehensive metabolic 2000 panel - Serum or Plasma COMP METABOLIC PANEL Lab Routine Hypothyroidism, acquired Expected: 08/18/2023, Expires: 10/18/2023 [facility] Work Phone: Comment on above: Expected: 08/18/2023, Expires: 4 Start: 08-18-2023 End: 10-18-2023 Lipid 1996 panel - Serum or Plasma LIPID PANEL BASIC Lab Routine Hypothyroidism, acquired Expected: 08/18/2023, Expires: 10/18/2023 [facility] Work Phone: Comment on above: Expected: 08/18/2023, Expires: 4 Start: 08-18-2023 End: 10-18-2023 Thyrotropin [Units/volume] in Serum or Plasma TSH BLD Lab Routine Hyperlipidemia LDL goal <100 Hypothyroidism, acquired Expected: 08/18/2023, Expires: 10/18/2023 [facility] Work Phone: Comment on above: Expected: 08/18/2023, Expires: 4 Start: 08-05-2023 ANNUAL PCP TEAM CHRONIC DISEASE VISIT ANNUAL PCP TEAM CHRONIC DISEASE VISIT [facility] Start: 08-05-2023 COVID-19 VACCINE (5 - Booster for Pfizer series) COVID-19 VACCINE (5 - Booster for Pfizer series) [facility] Comment on above: Postponed from 10/21/2021 (Declined at t his time) Start: 08-05-2023 COVID-19 VACCINE (5 - Pfizer series) COVID-19 VACCINE (5 - Pfizer series) [facility] Comment on above: Postponed from 10/21/2021 (Declined at t his time) Start: 06-13-2023 End: 09-12-2023 Cobalamin (Vitamin B12) [Mass/volume] in Serum or Plasma [facility] Work Phone: Comment on above: Expected: 06/13/2023, Expires: 4 Start: 06-13-2023 End: 09-12-2023 Comprehensive metabolic 2000 panel - Serum or Plasma [facility] Work Phone: Comment on above: Expected: 06/13/2023, Expires: 4 Start: 06-13-2023 End: 09-12-2023 Magnesium [Mass/volume] in Serum or Plasma [facility] Work Phone: Comment on above: Expected: 06/13/2023, Expires: 4 Start: 06-13-2023 End: 09-12-2023 Thyrotropin [Units/volume] in Serum or Plasma [facility] Work Phone: Comment on above: Expected: 06/13/2023, Expires: 4 Start: 06-13-2023 End: 09-12-2023 Urinalysis complete panel - Urine [facility] Work Phone: Comment on above: Expected: 06/13/2023, Expires: Start: 06-05-2023 DIABETES SCREEN DIABETES SCREEN [facility] Start: 05-09-2023 Advance Directive Discussion Advance Directive Discussion [facility] Start: 04-06-2023 Ambulation without limitation [facility] Start: 04-06-2023 Medication education [facility] Start: 04-06-2023 Patient discharge [facility] Start: 04-06-2023 Taking patient vital signs [facility] Start: 04-06-2023 [facility] Start: 02-03-2023 ANNUAL PCP TEAM CHRONIC DISEASE VISIT ANNUAL PCP TEAM CHRONIC DISEASE VISIT [facility] Start: 01-07-2023 Influenza vaccination [facility] Start: 09-10-2022 Patient discharge [facility] Start: 09-10-2022 Ambulation without limitation [facility] Start: 09-10-2022 Medical regimen orders management [facility] Start: 09-10-2022 Medication education [facility] Start: 09-10-2022 Taking patient vital signs [facility] Start: 09-10-2022 [facility] Start: 09-10-2022 Anes transurethral w/urethrocystoscopy nos ANESTH BLADDER SURGERY [facility] Start: 09-10-2022 Cystourethroscopy with biopsy CYSTOSCOPY W/BIOPSY(S) [facility] Start: 08-04-2022 End: 10-04-2022 Basic metabolic 2000 panel - Serum or Plasma BASIC METABOLIC PNL Lab Routine Renal insufficiency Expected: 08/04/2022, Expires: 10/04/2022 [facility] Work Phone: Comment on above: Expected: 08/04/2022, Expires: 3 Start: 08-04-2022 End: 10-04-2022 CBC W Auto Differential panel - Blood CBC + DIFF Lab Routine Thrombocytosis Expected: 08/04/2022, Expires: 10/04/2022 [facility] Work Phone: Comment on above: Expected: 08/04/2022, Expires: 3 Start: 08-04-2022 End: 10-04-2022 Lipid 1996 panel - Serum or Plasma LIPID PANEL BASIC Lab Routine Hyperlipidemia LDL goal <100 Expected: 08/04/2022, Expires: 10/04/2022 [facility] Work Phone: Comment on above: Expected: 08/04/2022, Expires: 3 Start: 08-04-2022 End: 10-04-2022 Urinalysis complete panel - Urine URINALYSIS, WITH MICROSCOPIC Lab Routine Renal insufficiency Expected: 08/04/2022, Expires: 10/04/2022 [facility] Work Phone: Comment on above: Expected: 08/04/2022, Expires: 3 Start: 08-03-2022 End: 02-03-2023 CBC W Auto Differential panel - Blood CBC + DIFF Lab Routine Uncomplicated asthma, unspecified asthma severity, unspecified whether persistent Expected: 08/03/2022, Expires: 02/03/2023 [facility] Work Phone: Comment on above: Expected: 08/03/2022, Expires: 3 Start: 08-03-2022 End: 02-03-2023 Comprehensive metabolic 2000 panel - Serum or Plasma COMP METABOLIC PANEL Lab Routine Hyperlipidemia LDL goal <100 Expected: 08/03/2022, Expires: 02/03/2023 [facility] Work Phone: Comment on above: Expected: 08/03/2022, Expires: 3 Start: 08-03-2022 End: 10-03-2022 Hepatitis C virus Ab [Presence] in Serum HEP C AB IA W/CONF SCRN Lab Routine Need for hepatitis C screening test Expected: 08/03/2022, Expires: 10/03/2022 [facility] Work Phone: Comment on above: Expected: 08/03/2022, Expires: 3 Start: 08-03-2022 End: 02-03-2023 Lipid 1996 panel - Serum or Plasma LIPID PANEL BASIC Lab Routine Hyperlipidemia LDL goal <100 Expected: 08/03/2022, Expires: 02/03/2023 [facility] Work Phone: Comment on above: Expected: 08/03/2022, Expires: 3 Start: 08-03-2022 End: 10-03-2022 Thyrotropin [Units/volume] in Serum or Plasma TSH BLD Lab Routine Hypothyroidism, acquired Expected: 08/03/2022, Expires: 10/03/2022 [facility] Work Phone: Comment on above: Expected: 08/03/2022, Expires: 3 Start: 06-11-2022 Simple repair f/e/e/n/l/m 2.5cm/< RPR F/E/E/N/L/M 2.5 CM/< [facility] Start: 05-09-2022 ADVANCE DIRECTIVE DISCUSSION ADVANCE DIRECTIVE DISCUSSION [facility] Start: 03-26-2022 Incentive spirometry [facility] Start: 01-07-2022 Influenza vaccination INFLUENZA (#1) [facility] Start: 10-21-2021 COVID-19 VACCINE (5 - Booster for Pfizer series) COVID-19 VACCINE (5 - Booster for Pfizer series) [facility] Start: 06-09-2021 ANNUAL PCP TEAM CHRONIC DISEASE VISIT ANNUAL PCP TEAM CHRONIC DISEASE VISIT [facility] Start: 05-09-2021 ADVANCE DIRECTIVE DISCUSSION ADVANCE DIRECTIVE DISCUSSION [facility] Start: 2003 RSV Vaccine (1 - 1-dose 60+ series) RSV Vaccine (1 - 1-dose 60+ series) [facility] Start: 1961 Anxiety Screening Anxiety Screening [facility] Start: 1961 BP Controlled (<130/80) BP Controlled (<130/80) [facility] Start: 1961 HEPATITIS C SCREENING HEPATITIS C SCREENING [facility] Bacteria identified in Urine by Culture BACTERIAL CULTURE, URINE Microbiology Routine Dysuria 08/20/2024 2:28 PM EDT [facility] Work Phone: End: 02-28-2025 BD DXA TRABECULAR BONE SCORE (TBS) BD DXA TRABECULAR BONE SCORE (TBS) Radiology Routine History of skull fracture Disorder of bone Closed odontoid fracture with routine healing Other osteoporosis 1 Occurrences starting 01/30/2024 until 02/28/2025 [facility] Comment on above: 1 Occurrences starting 01/30/2024 until 02/28/2025 COVID & INFLUENZA A/ B & RSV NAAT, ROUTINE COVID & INFLUENZA A/B & RSV NAAT, ROUTINE Microbiology Routine Bronchitis Acute cough Ordered: 02/16/2023 [facility] Work Phone: Comment on above: Ordered: 02/16/2023 End: 08-22-2025 CT Cervical spine WO contrast CT CERVICAL SPINE WO IVCON Radiology Routine Closed odontoid fracture, sequela 1 Occurrences starting 07/23/2024 until 08/22/2025 [facility] Work Phone: Comment on above: 1 Occurrences starting 07/23/2024 until 08/22/2025 End: 02-28-2025 DXA Skeletal system.axial Views for bone density DXA-AXIAL SKELETON Radiology Routine History of skull fracture Disorder of bone Closed odontoid fracture with routine healing Other osteoporosis 1 Occurrences starting 01/30/2024 until 02/28/2025 [facility] Work Phone: Comment on above: 1 Occurrences starting 01/30/2024 until 02/28/2025 End: 10-07-2023 EMG(NEURO/NI) EMG(NEURO/NI) EMG Routine Balance disorder Falls frequently Numbness and tingling of both feet 1 Occurrences starting 10/06/2022 until 10/07/2023 [facility] Work Phone: Comment on above: 1 Occurrences starting 10/06/2022 until 10/07/2023 Hemoglobin A1c/Hemoglobin.total in Blood [facility] [facility] Patient Education [facility] Work Phone: Patient referral [facility] Work Phone: PT PLAN OF CARE CERTIFICATION PT PLAN OF CARE CERTIFICATION Procedures Routine Balance disorder Falls frequently Numbness and tingling of both feet Ordered: 11/15/2022 [facility] Comment on above: Ordered: 11/15/2022 End: 11-10-2023 Radiologic exam chest 2 views XR CHEST 2V FRONTAL/LAT Radiology Routine Acute cough 1 Occurrences starting 10/11/2022 until 11/10/2023 [facility] Work Phone: Comment on above: 1 Occurrences starting 10/11/2022 until 11/10/2023 Radiologic exam ches t 2 views XR CHEST 2V FRONTAL/LAT Radiology Routine Acute cough 10/11/2022 3:03 PM EDT [facility] Work Phone: ROUTINE FLU A/B + RSV ROUTINE FL U A/B + RSV Lab Routine Bronchitis Acute cough Ordered: 02/16/2023 [facility] Work Phone: Comment on above: Ordered: 02/16/2023 SARS-CoV-2 (COVID-19 ) RNA [Presence] in Respiratory specimen by VIKRAM with probe detection COVID NAAT, UPPER RESPIRATORY, ROUTINE Microbiology Routine Bronchitis Acute cough Ordered: 02/16/2023 [facility] Work Phone: Comment on above: Ordered: 02/16/2023 End: 10-15-2024 XR Cervical spine AP and Lateral XR CERV GENERAL 2V AP/LAT Radiology Routine Closed odontoid fracture, sequela 1 Occurrences starting 09/16/2023 until 10/15/2024 [facility] Work Phone: Comment on above: 1 Occurrences starting 09/16/2023 until 10/15/2024 End: 05-30-2025 XR Cervical spine AP and Odontoid and (Lateral W flexion and W extension) XR CERV OTHER 5V AP/LAT/FLX/EXT/ODON Radiology Routine Closed odontoid fracture, sequela 1 Occurrences starting 04/30/2024 until 05/30/2025 [facility] Work Phone: Comment on above: 1 Occurrences starting 04/30/2024 until 05/30/2025 XR Cervical spine AP and Odontoid and (Lateral W flexion and W extension) XR CERV OTHER 5V AP/LAT/FLX/EXT/ODON Radiology Routine Closed odontoid fracture, sequela 04/30/2024 9:01 AM EST [facility] End: 08-22-2025 XR Cervical spine AP and Odontoid and (Lateral W flexion and W extension) XR CERV OTHER 5V AP/LAT/FLX/EXT/ODON Radiology Routine Closed odontoid fracture, sequela 1 Occurrences starting 07/23/2024 until 08/22/2025 [facility] Comment on above: 1 Occurrences starting 07/23/2024 until 08/22/2025 XR Cervical spine AP and Odontoid and (Lateral W flexion and W extension) XR CERV OTHER 5V AP/LAT/FLX/EXT/ODON Radiology Routine Closed odontoid fracture, sequela 07/23/2024 9:19 AM EDT [facility] Work Phone: XR Cervical spine AP and Odontoid and (Lateral W flexion and W extension) XR CERV OTHER 5V AP/LAT/FLX/EXT/ODON Radiology Routine Closed odontoid fracture, sequela 09/03/2024 8:39 AM EDT [facility] Work Phone: End: 08-29-2025 XR Knee - bilateral 4 Views XR KNEE GENERAL 4V AP BOTH/PA BOTH/LAT/MERC BILATERAL Radiology Routine Knee pain, unspecified chronicity, unspecified laterality 1 Occurrences starting 07/30/2024 until 08/29/2025 [facility] Work Phone: Comment on above: 1 Occurrences starting 07/30/2024 until 08/29/2025 XR Knee - bilateral 4 Views XR KNEE GENERAL 4V AP BOTH/PA BOTH/LAT/MERC BILATERAL Radiology Routine Knee pain, unspecified chronicity, unspecified laterality 07/30/2024 11:27 AM EDT [facility] End: 06-27-2025 XR Shoulder - right 3 Views XR SHOULDER GENERAL 3V OR MORE AP/TRUE AP/OTHER RIGHT Radiology Routine Acute pain of right shoulder 1 Occurrences starting 05/28/2024 until 06/27/2025 [facility] Comment on above: 1 Occurrences starting 05/28/2024 until 06/27/2025 XR Shoulder - right 3 Views XR SHOULDER GENERAL 3V OR MORE AP/TRUE AP/OTHER RIGHT Radiology Routine Acute pain of right shoulder 05/28/2024 4:09 PM [facility] End: 12-23-2023 XR SHOULDER GENERAL 3V OR MORE AP/TRUE AP/OTHER LEFT XR SHOULDER GENERAL 3V OR MORE AP/TRUE AP/OTHER LEFT Radiology Routine Acute pain of left shoulder 1 Occurrences starting 11/23/2022 until 12/23/2023 [facility] Work Phone: Comment on above: 1 Occurrences starting 11/23/2022 until 12/23/2023 XR SHOULDER GENERAL 3V OR MORE AP/TRUE AP/OTHER LEFT XR SHOULDER GENERAL 3V OR MORE AP/TRUE AP/OTHER LEFT Radiology Routine Acute pain of left shoulder 11/23/2022 9:51 AM EDT [facility] Work Phone: [facility] Immunizations Immunization Date Immunization Notes Care Provider Fa cili 01-30-2024 COVID-19 vaccine, ag e 12+ yr ([employer]) Dinah Melgar MD Work Phone: [facility] 01-30-2024 influenza, high dose seasonal, preservative-free Dinah Melgar MD Work Phone: [facility] 02-03-2022 influenza, high-dose , quadrivalent vaccine (FLUZONE HIGH DOSE QUADRIVALENT) Dinah Melgar MD Work Phone: [facility] 02-03-2022 influenza virus vacc ine, unspecified formulation Awa Rodriguezosman HANDLE ASSEMBLER Work Phone: [facility] 12-18-2021 TD(adult) unspecifie d formulation Ryland Covarrubias 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 Work Phone: [facility] Work Phone: 12-18-2021 tetanus and diphther ia toxoids, adsorbed, preservative free, for adult use (2 Lf of tetanus toxoid and 2 Lf of diphtheria toxoid) Dr. Dinah Melgar Work Phone: [facility] 12-18-2021 tetanus and diphther ia toxoids, adsorbed, preservative free, for adult use (5 Lf of tetanus toxoid and 2 Lf of diphtheria toxoid) Ryland Covarrubias 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 Work Phone: [facility] 08-26-2021 COVID-19 vaccine, fu ll dose (MODERNA) Ryland Covarrubias 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 Work Phone: [facility] 08-24-2021 zoster vaccine recombinant Ryland Satish KNIFE OPERATOR.FILING AND POLISHING SUPERVISOR Work Phone: [facility] 06-21-2021 zoster vaccine recombinant Ryland Satish KNIFE OPERATOR.FILING AND POLISHING SUPERVISOR Work Phone: [facility] 02-20-2021 COVID-19 vaccine, fu ll dose (MODERNA) Ryland Satish KNIFE OPERATOR.FILING AND POLISHING SUPERVISOR Work Phone: [facility] 02-20-2021 influenza, injectabl e, quadrivalent, contains preservative Ryland Satish KNIFE OPERATOR.FILING AND POLISHING SUPERVISOR Work Phone: [facility] 08-04-2020 Covid (Pfizer) Dr. Dinah morataya Work Phone: [facility] 07-12-2020 Covid (Pfizer) Dr. Dinah morataya Work Phone: [facility] 06-06-2019 influenza, high dose seasonal, preservative-free Ryland Satish KNIFE OPERATOR.FILING AND POLISHING SUPERVISOR Work Phone: [facility] 05-31-2018 influenza, high dose seasonal, preservative-free Ryland Satish KNIFE OPERATOR.FILING AND POLISHING SUPERVISOR Work Phone: [facility] 05-18-2017 influenza, high dose seasonal, preservative-free Ryland Satish KNIFE OPERATOR.FILING AND POLISHING SUPERVISOR Work Phone: [facility] 05-05-2016 influenza, high dose seasonal, preservative-free Ryland Satish KNIFE OPERATOR.FILING AND POLISHING SUPERVISOR Work Phone: [facility] 04-23-2015 influenza, high dose seasonal, preservative-free Ryland Satish KNIFE OPERATOR.FILING AND POLISHING SUPERVISOR Work Phone: [facility] 04-23-2015 pneumococcal conjuga te vaccine, 13 valent Ryland Satish KNIFE OPERATOR.FILING AND POLISHING SUPERVISOR Work Phone: [facility] 04-10-2014 influenza, high dose seasonal, preservative-free Ryland Satish KNIFE OPERATOR.FILING AND POLISHING SUPERVISOR Work Phone: [facility] 04-28-2013 diphtheria and tetan us toxoids, adsorbed for pediatric use Ryland Satish KNIFE OPERATOR.FILING AND POLISHING SUPERVISOR Work Phone: [facility] 04-28-2013 tetanus and diphther ia toxoids, adsorbed, preservative free, for adult use (2 Lf of tetanus toxoid and 2 Lf of diphtheria toxoid) [facility] 03-28-2013 influenza virus vacc ine, unspecified formulation Ryland Covarrubias KNIFE OPERATOR.FILING AND POLISHING SUPERVISOR Work Phone: [facility] 04-05-2012 zoster vaccine, live Lacykiko Covarrubias KNIFE OPERATOR.FILING AND POLISHING SUPERVISOR Work Phone: [facility] 03-17-2011 influenza virus vacc ine, unspecified formulation Ryland Covarrubias KNIFE OPERATOR.FILING AND POLISHING SUPERVISOR Work Phone: [facility] Work Phone: 03-17-2011 tetanus toxoid, redu [place] diphtheria toxoid, and acellular pertussis vaccine, adsorbed Ryland Covarrubias KNIFE OPERATOR.FILING AND POLISHING SUPERVISOR Work Phone: [facility] Work Phone: 03-11-2010 influenza virus vacc ine, unspecified formulation Ryland Covarrubias KNIFE OPERATOR.FILING AND POLISHING SUPERVISOR Work Phone: [facility] 03-11-2010 pneumococcal polysaccharide vaccine, 23 valent Ryland Covarrubias KNIFE OPERATOR.FILING AND POLISHING SUPERVISOR Work Phone: [facility] 02-12-2009 influenza virus vacc ine, unspecified formulation Ryland Covarrubias KNIFE OPERATOR.FILING AND POLISHING SUPERVISOR Work Phone: [facility] 03-22-2007 influenza virus vacc ine, whole virus Ryland Covarrubias KNIFE OPERATOR.FILING AND POLISHING SUPERVISOR Work Phone: [facility] 05-09-1999 diphtheria and tetan us toxoids, adsorbed for pediatric use Ryland Covarrubias KNIFE OPERATOR.FILING AND POLISHING SUPERVISOR Work Phone: [facility] Payers Date Payer Category Payer Self-pay [id number] 2008 Medicare [id number] 2008 Medicare [id number] 2005 Private Health Insurance [id number] 2005 Private Health Insurance [id number] Unknown SELF INS [facility] CAMI [id number] Unknown [id number] 2 Unknown [id number] 2 Unknown [id number] 2 Unknown [id number] 2 Unknown [id number] 2 Unknown [id number] 2 Unknown [id number] 2 Unknown [id number] 2 Unknown [id number] 2 Unknown [id number] 2 Social History Date Type Detail Facility Start: 05-02-2021 End: 08-23-2023 Tobacco smoking status UTIS Unknown if ever smoked [facility] Start: 1945 Sex Assigned At Female W [facility] Start: 03-17-2011 End: 08-13-2024 Tobacco smoking status NHIS Never smoked tobacco [facility] Work Phone: Start: 03-17-2011 Tobacco use and exposure Smoke less tobacco non-user [facility] Work Phone: Start: 12-18-2021 End: 09-03-2024 Alcohol intake Current non-drinker of alcohol (finding) [facility] Start: 06-01-2019 End: 02-03-2022 History SDOH Alcohol Frequency 1 [facility] Start: 06-01-2019 End: 10-11-2022 History SDOH Social Connections Phone 5 [facility] Start: 06-01-2019 End: 10-11-2022 History SDOH Social Connections Membership 2 [facility] Start: 06-01-2019 End: 10-11-2022 History SDOH Physical Activity DPW 0 [facility] Start: 06-01-2019 End: 10-11-2022 History SDOH Stress 3 [facility] Start: 06-01-2019 Education 12 [facility] Start: 1945 Sex Assigned At Not on file [facility] Start: 09-23-2020 End: 02-03-2022 Exposure to SARS-CoV-2 (event) Not sure [facility] Start: 02-03-2022 History SDOH Social Connections Get Together 4 [facility] Start: 10-11-2022 End: 10-22-2023 History of Social function [facility] Start: 10-11-2022 End: 10-22-2023 Social connection and isolation panel [facility] Do you belong to any clubs or organizations such as restorationist groups, unions, fraternal or athletic groups, or school groups? Yes [facility] Are you now , , , , never or living with a partner? [facility] How often to you hav e a drink containing alcohol? Never [facility] How many standard dr inks containing alcohol do you have on a typical day? Patient does not drink [facility] Do you feel stress - tense, restless, nervous, or anxious, or unable to sleep at night because your mind is troubled all the time - these days [OSQ] Not at all [facility] (I/We) worried wheth er (my/our) food would run out before (I/we) got money to buy more. Never true [facility] In the past 12 month s, was there a time when you were not able to pay the mortgage or rent on time? No [facility] Do you feel stress - tense, restless, nervous, or anxious, or unable to sleep at night because your mind is troubled all the time - these days [OSQ] Only a little [facility] Do you feel stress - tense, restless, nervous, or anxious, or unable to sleep at night because your mind is troubled all the time - these days [OSQ] To some extent [facility] Start: 08-12-2024 End: 08-24-2024 Sex Female (finding) [facility] Start: 08-21-2024 End: 08-24-2024 Tobacco smoking status NHIS Ex-smoker (finding) [facility] NEGATED: Highlighted row [facility] Medical Equipment Procedure Code Equipment Code Equipment Origin al Text Equipment Identifier Dates MEDTRONIC BLADDE R STIMULATOR FDA Start: 10-01-2016 MEDTRONIC BLADDE R STIMULATOR FDA Start: 10-01-2016 MEDTRONIC BLADDE R STIMULATOR FDA Start: 10-01-2016 MEDTRONIC BLADDE R STIMULATOR FDA Start: 10-01-2016 MEDTRONIC BLADDE R STIMULATOR FDA Start: 10-01-2016 MEDTRONIC BLADDE R STIMULATOR FDA Start: 10-01-2016 MEDTRONIC BLADDE R STIMULATOR FDA Start: 10-01-2016 NEUROSTIM ,INTER STIM X INS FDA Start: 04-06-2023 MEDTRONIC BLADDE R STIMULATOR FDA Start: 10-01-2016 NEUROSTIM ,INTER STIM X INS FDA Start: 04-06-2023 MEDTRONIC BLADDE R STIMULATOR FDA Start: 10-01-2016 NEUROSTIM ,INTER STIM X INS FDA Start: 04-06-2023 MEDTRONIC BLADDE R STIMULATOR FDA Start: 10-01-2016 NEUROSTIM ,INTER STIM X INS FDA Start: 04-06-2023 MEDTRONIC BLADDE R STIMULATOR FDA Start: 10-01-2016 NEUROSTIM ,INTER STIM X INS FDA Start: 04-06-2023 MEDTRONIC BLADDE R STIMULATOR FDA Start: 10-01-2016 NEUROSTIM ,INTER STIM X INS FDA Start: 04-06-2023 MEDTRONIC BLADDE R STIMULATOR FDA Start: 10-01-2016 NEUROSTIM ,INTER STIM X INS FDA Start: 04-06-2023 MEDTRONIC BLADDE R STIMULATOR FDA Start: 10-01-2016 NEUROSTIM ,INTER STIM X INS FDA Start: 04-06-2023 Goals Date Patient Goal Desired Activity /State Functional Status Date Assessment Result Facility 08-15-2024 Functional status Chair [facility] Work Phone: 09-08-2023 Functional status Chair [facility] Work Phone: 08-23-2023 Are you deaf, or do you have serious difficulty hearing No 08/23/2023 12:51 PM EDT Nany Reeves RN No [facility] 08-23-2023 Are you blind, or do you have serious difficulty seeing, even when wearing glasses No 08/23/2023 12:51 PM EDNany Hamilton RN No [facility] 08-23-2023 Do you have serious difficulty walking or climbing stairs Yes 08/23/2023 12:51 PM EDT Nany Reeves RN Yes [facility] 08-23-2023 Do you have difficul ty dressing or bathing Yes 08/23/2023 12:51 PM EDT Nany Reeves RN Yes [facility] 08-23-2023 Because of a physica l, mental, or emotional condition, do you have difficulty doing errands alone such as visiting a physician's office or shopping Yes 08/23/2023 12:51 PM EDNany Hamilton RN Yes [facility] Mental Status Date Assessment Result Facility 08-15-2024 Cognitive function Voice/Name [facility] Work Phone: 09-08-2023 Cognitive function Voice/Name [facility] Work Phone: 08-23-2023 Because of a physica l, mental, or emotional condition, do you have serious difficulty concentrating, remembering, or making decisions Yes 08/23/2023 12:51 PM EDNany Hamilton RN Yes [facility] 04-06-2023 Cognitive function Voice/Name [facility] Work Phone: 09-10-2022 Cognitive function Voice/Name [facility] Work Phone: Clinical Notes 10-11-2016 to 10-05-2024 Telephone Encounter - Karon Turner RN - 10/05/2024 3:46 PM EDTTelephone Encounter - Karon Turner RN - 10/05/2024 3:46 PM EDTTelephone Encounter - Annalee Jimenez RN - 10/05/2024 2:09 PM EDT Note Date & Type Note Facility 10-05-2024 Telephone encounter Note Called pt's daughter Netta who called in earlier. Netta states she is driving home from [place] at the moment. States her mom called her and told her she fell and is having a lot of pain. Daughter states the fall was Tuesday and pt told her she slid out of her bed onto her bottom. Daughter also states that pt's son, Sy told Netta that their mom feel the Tuesday before as well and bent her walker. Netta isn't sure what to do. She states pt has been under palliative care and they prescribed meds for her, but the pt can't find them. Instructed Netta to contact palliative care as they can send a nurse out to check on her. She states she will do that. Netta also says her mom's home number isn't working and to use pt's cell number. Called and spoke with pt. Pt states she has significant back pain. Pt states she did fall but neither time did she hit her head. Pt has a hx of back pain and she states that is why she fell. She denies any headache, numbness or tingling, leg weakness or problems with urinary or fecal incontinence or control. Pt found her pain meds and will take those. Called and spoke with daughter again who states that palliative said she should take her mom to the ER if pain is bad. Netta will call her brother to take her mom if needed. [facility] 10-05-2024 Miscellaneous Notes Called pt's daughter Netta who called in earlier. Netta states she is driving home from [place] at the moment. States her mom called her and told her she fell and is having a lot of pain. Daughter states the fall was Tuesday and pt told her she slid out of her bed onto her bottom. Daughter also states that pt's son, Sy told Netta that their mom feel the Tuesday before as well and bent her walker. Netta isn't sure what to do. She states pt has been under palliative care and they prescribed meds for her, but the pt can't find them. Instructed Netta to contact palliative care as they can send a nurse out to check on her. She states she will do that. Netta also says her mom's home number isn't working and to use pt's cell number. Called and spoke with pt. Pt states she has significant back pain. Pt states she did fall but neither time did she hit her head. Pt has a hx of back pain and she states that is why she fell. She denies any headache, numbness or tingling, leg weakness or problems with urinary or fecal incontinence or control. Pt found her pain meds and will take those. Called and spoke with daughter again who states that palliative said she should take her mom to the ER if pain is bad. Netta will call her brother to take her mom if needed. Attempted to contact patient. No answer and no VM. Please try contacting patient again. Annalee Jimenez RN documented in this encounter [facility] 10-05-2024 Telephone encounter Note Attempted to contact patient. No answer and no VM. Please try contacting patient again. Annalee Jimenez RN [facility] 09-03-2024 Note HNO ID: [id number] Author: GUILLAUME DELGADO MD, PhD Service: ? Author Type: Physician Type: Progress Notes Filed: 09/03/2024 11:58 Note Text: NEUROSURGERY FOLLOW UP OFFICE NOTE Guillaume Delgado MD, PhD Date of visit: September 03, 2024 Patient Name: Ms.Betty Ricky Segura Date of : 1945 Current Age: [age] year old Sex: female MRN/E# [id number] Last Office Visit: 07/23/2024 Chief Complaint: Patient presents with: Established Patient SUBJECTIVE: HPI The patient presented to [facility] ED on 08/20/2023 as a transfer from an outside hospital follow a fall. She noted she hit her head on the wall. Outside imaging demonstrated a type 2 odontoid fracture (acute vs chronic). She reported multiple falls recently and in the past. She noted 2-3 weeks prior, she fell and endorsed neck pain but did not seek medical attention. No surgical interventions were required at that time. She was to wear a [place] collar at all times. She was to obtain a bone stimulator outpatient. She was to follow up in 1 month with repeat imaging. At her last visit on 09/16/2023 she stated she had been doing okay since discharge. She reported midline posterior cervical pain. She denied any radicular symptoms. Denied paresthesia. Denied any weakness. Denied any further falls, loss of bowel or bladder. She had since been using a cane for extra support. She was complaint with her cervical collar. She had been using ultram with relief. She was receiving home therapy. She did not receive any information about her bone growth stimulator. There was significant bone loss at the neck of the odontoid process that was caused to believe that she likely had a longstanding fracture in that location. It was difficult to tell thought it may be acute. Her xray's did not have any concerns with respect to odontoid displacement or other issues. She was interested in the bone growth stimulator. It was recommended that she follow up in 3 months with repeat imaging. At her last visit on 12/19/2023 she stated she had continual posterior cervical pain. She denied any radicular symptoms. Patient stated over the last week or so she had noticed left hand numbness. She reported using Tylenol as needed for the pain. She denied dexterity issues. She did not get her x-rays prior to her visit. She denied any recent falls, numbness, tingling or bowel/ bladder incontinence. Patient using a cane for assistance with ambulation. Patient still had her [place] collar on and stated she wanted it off. She noted she continued with her bone growth stimulator. There was concern for a new upper motor neuron finding that was not perviously documented. She was to obtain a CT myelogram of the cervical spine as she could not obtain an MRI due to her bladder stimulator. She was to follow up once completed. At her last visit on 02/01/2024 she stated she continued with very little cervical pain and headaches, but stated the headaches were unrelated to her cervical spine. Denied any radicular symptoms. Continued with left hand numbness. She continued to be off balance and unsteady with use of a cane, but reported this was improving. Denied any falls, loss of bowel or bladder. She had been complaint with her cervical collar. Noted she continued with her bone growth stimulator. 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 This would almost completely remove her ability to move her neck. The goal of surgery be to arrest neurologic progression and not necessarily to achieve neurologic improvement. In this context I think that continuing to wear the cervical collar is the less morbid of the [address] myelogram does not show evidence of healing of her C1-2 fracture we did articulate a plan to continue use of her bone growth stimulator given that there is little downside to doing so. It was recommended that at that time, she continue with conservative treatment and to follow up in 3 months. At her last visit on 04/30/2024 she stated she had been doing well. She denied any cervical pain or headaches. Denied any radicular pain. Denied paresthesia. Noted taking tylenol as needed. Reported a fall the day before Thanks where she slid out of a chair onto her bottom. Denied any injuries. Denied feeling off balance and unsteady, but continued with use of cane. She had been compliant with her cervical collar at all times and wears her bone growth stimulator daily. She was having no evident motion at the site of her odontoid fracture on flexion-extension films. This could reflect fibrous union. It was recommended that she continue with her collar and bone growth stimulator for another 3 months. If her xray's looked good, then we may consider a collar wean. She was to follow up in 3 months with repeat imaging. At her (more content not included)... [facility] 09-03-2024 History of Presen t illness Narrative Radiology Service Progress Note PATIENT NAME: Georgian Segura DATE OF SERVICE: September 03, 2024 TIME: 8:39 AM PATIENT IDENTITY VERIFICATION COMPLETED USING TWO (2) IDENTIFIERS: Name and Date of confirmed by patient verbally. FALL SCREENING: Has the patient had 2 falls in the last year or 1 fall with injury or currently using an Ambulatory Assistive Device (Walker, Cane, Wheelchair, Crutches, etc.)? No PATIENT GENDER DATA: PATIENT RELEVANT IMPLANT DATA REVIEWED: Not Applicable PATIENT PRESENTS WITH AN IMPLANTABLE OR ATTACHED FAMILY SERVICE CENTER DIRECTOR: No RADIOLOGY DEPARTMENT: General X-ray: Exam(s) Completed: Spine X-Ray(s): Cervical AP / LAT / OBL / FLEX-EXT PERIPHERAL IV DATA: Not applicable SIGNED BY: RT Yolanda(R) September 03, 2024 8:39 AM documented in this encounter [facility] 09-03-2024 Note HNO ID: [id number] Author: TIGIST HERNANDEZ RT(Arin) Service: ? Author Type: Technologist Type: Progress Notes Filed: 09/03/2024 08:40 Note Text: Radiology Service Progress Note PATIENT NAME: Georgina Segura DATE OF SERVICE: September 03, 2024 TIME: 8:39 AM PATIENT IDENTITY VERIFICATION COMPLETED USING TWO (2) IDENTIFIERS: Name and Date of confirmed by patient verbally. FALL SCREENING: Has the patient had 2 falls in the last year or 1 fall with injury or currently using an Ambulatory Assistive Device (Walker, Cane, Wheelchair, Crutches, etc.)? No PATIENT GENDER DATA: PATIENT RELEVANT IMPLANT DATA REVIEWED: Not Applicable PATIENT PRESENTS WITH AN IMPLANTABLE OR ATTACHED FAMILY SERVICE CENTER DIRECTOR: No RADIOLOGY DEPARTMENT: General X-ray: Exam(s) Completed: Spine X-Ray(s): Cervical AP / LAT / OBL / FLEX-EXT PERIPHERAL IV DATA: Not applicable SIGNED BY: RT Yolanda(R) September 03, 2024 8:39 AM [facility] 09-03-2024 History of Presen t illness Narrative Radiology Service Progress Note PATIENT NAME: Georgina WINNN: [id number] DATE OF SERVICE: September 03, 2024 TIME: 8:21 AM PATIENT IDENTITY VERIFICATION COMPLETED USING TWO (2) IDENTIFIERS: Name and Date of confirmed by patient verbally. FALL SCREENING: Has the patient had 2 falls in the last year or 1 fall with injury or currently using an Ambulatory Assistive Device (Walker, Cane, Wheelchair, Crutches, etc.)? Yes, Patient High Risk for Falls What interventions were put in place to prevent falls during this visit? Offered Assistance with Transfers/Clothing and Increased Observations by Caregivers PATIENT GENDER DATA: Assigned female at . status: : No status: NO. PATIENT RELEVANT IMPLANT DATA REVIEWED: Not Applicable PATIENT PRESENTS WITH AN IMPLANTABLE OR ATTACHED [facility]ENTER DIRECTOR: No RADIOLOGY DEPARTMENT: CT; Exam(s) Completed: Spine PERIPHERAL IV DATA: Not applicable SIGNED BY: JILLINA Mitchell) September 03, 2024 8:21 AM documented in this encounter [facility] 09-03-2024 Note HNO ID: [id number] Author: FRANCISCO ROWAN RT(R) Service: Radiology Author Type: Technologist Type: Progress Notes Filed: 09/03/2024 08:22 Note Text: Radiology Service Progress Note PATIENT NAME: Georgina Segura DATE OF SERVICE: September 03, 2024 TIME: 8:21 AM PATIENT IDENTITY VERIFICATION COMPLETED USING TWO (2) IDENTIFIERS: Name and Date of confirmed by patient verbally. FALL SCREENING: Has the patient had 2 falls in the last year or 1 fall with injury or currently using an Ambulatory Assistive Device (Walker, Cane, Wheelchair, Crutches, etc.)? Yes, Patient High Risk for Falls What interventions were put in place to prevent falls during this visit? Offered Assistance with Transfers/Clothing and Increased Observations by Caregivers PATIENT GENDER DATA: Assigned female at . status: : No status: NO. PATIENT RELEVANT IMPLANT DATA REVIEWED: Not Applicable PATIENT PRESENTS WITH AN IMPLANTABLE OR ATTACHED [facility]ILY [facility] CENTER DIRECTOR: No RADIOLOGY DEPARTMENT: CT; Exam(s) Completed: Spine PERIPHERAL IV DATA: Not applicable SIGNED BY: JILLIAN Mitchell) September 03, 2024 8:21 AM [facility] 08-27-2024 Instructions Sylvie Ariza APRN.CNP - 08/27/2024 2:32 PM EDT Consult [facility]- if not covered, call me for pain management referral Calcium with Vit D 2 times every day Fosamax 70 mg every week for osteoporosis Increase Lactulose to 30 mg daily or 15 mg [address] Melgar as scheduled in Feb. documented in this encounter [facility] 08-27-2024 Note HNO ID: [id number] Author: SYLVIE ARIZA APRN.CNP Service: ? Author Type: Nurse Practitioner Type: Progress Notes Filed: 08/27/2024 14:44 Note Text: This is a 79 year old female who presents today with: Patient presents with: Follow Up: Back pain/fracture ER F/U: [facility] Fall 08/24/24 HISTORY OF PRESENT ILLNESS: Georgina Segura is a 79 year old female. Patient presents with: Follow Up: Back pain/fracture ER F/U: [facility] Fall 08/24/24 Pt. Seen for T 12 mild compression fracture. ER medicated her for pain with morphine. Compression fracture found here and sent there to be evaluated for bracing or kyphoplasty- that was not done. ER Reported that they hadn't changed from Xray report. Nothing else done. Tylenol helps. At times pain is a 9/10. Hurts on both lateral lower abdomen. Movement hurts. Hx of osteoporosis No loss of bowel or bladder function Sleeps on couch, wakes up at 2-3 am in the morning, then will go to bed and put home O2 on Daughter wants her to see Palliative Care PAST MEDICAL HISTORY: PAST MEDICAL HISTORY Diagnosis Date Arthritis of both hands 05/05/2016 Asthma ([facility]) 03/11/2010 Cervical disc disease 06/06/2013 Dementia without behavioral disturbance ([facility]) 10/11/2022 Depression, recurrent 10/11/2022 Diarrhea Diffuse cystic mastopathy 11/03/2005 Elevated CK 04/26/2012 Esophageal reflux 11/03/2005 Fracture of skull ([facility]) 02/16/2023 Hyperlipidemia 04/26/2012 Hypothyroidism, acquired 08/04/2022 Impingement syndrome of right shoulder 10/11/2016 Irritable bowel syndrome with diarrhea 05/31/2018 Mild intermittent asthma, uncomplicated ([facility]) 11/23/2022 Neurogenic bladder, NOS Odontoid fracture ([facility]) 08/20/2023 Other and unspecified hyperlipidemia Other forms of migraine Overactive bladder 02/12/2009 Primary localized osteoarthrosis, lower leg Rotator cuff syndrome 02/12/2009 Situational depression 05/31/2018 Statin intolerance 07/03/2018 Supraspinatus tendonitis 12/06/2012 Tear of biceps tendon 05/18/2017 Unspecified sleep apnea Urinary incontinence 03/11/2010 PAST SURGICAL HISTORY Procedure Laterality Date ADENOIDECTOMY PRIMARY Adenoidectomy APPENDECTOMY COLONOSCOPY W/BIOPSY SINGLE/MULTIPLE 06/21/11 DILATION AND CURETTAGE DXAND/THER NONOBSTETRIC Dilation AND curettage LAPAROSCOPY SURG CHOLECYSTECTOMY 07-15-06 Cholecystectomy, lap PAST SURGICAL HISTORY OF N/A 2017 urinary implant device TONSILLECTOMY PRIMARY/SECONDARY Tonsillectomy VAGINAL HYSTERECTOMY UTERUS 250 GM/< Hysterectomy, vaginal ALLERGIES Vioxx [Rofecoxib] and Zocor [Simvastatin] MEDICATIONS Current Outpatient Medications Medication Sig solifenacin 10 mg tablet Take 1 tablet by mouth once daily. lactulose 10 gram/15 mL solution Take 30 mL by mouth two times a day as needed. Incontinence Pad, Liner, Disp pads 1 pad two times a day as needed. mirabegron (MYRBETRIQ) 50 mg Tb24 Take 1 tablet by mouth once daily. levothyroxine (SYNTHROID) 50 mcg tablet TAKE 1 TABLET BY MOUTH ONCE DAILY AT 6 AM FLUoxetine (PROZAC) 20 mg capsule Take 1 capsule by mouth every afternoon. famotidine (PEPCID) 40 mg tablet Take 1 tablet by mouth once daily. ezetimibe (ZETIA) 10 mg tablet Take 1 tablet by mouth once daily. carvedilol (COREG) 6.25 mg tablet Take 1 tablet by mouth two times a day with meals. pantoprazole DR (PROTONIX) 40 mg tablet Take 1 tablet by mouth once daily. ipratropium bromide (ATROVENT) 42 mcg (0.06 %) nasal spray Use 2 Sprays in the nose three times a day. diclofenac (VOLTAREN ARTHRITIS PAIN) 1 % topical gel Apply 2 g to affected area four times daily. (Patient not taking: Reported on 07/30/2024) cyclobenzaprine (FLEXERIL) 5 mg tablet Take 1 tablet by mouth three times a day. (Patient not taking: Reported on 07/30/2024) albuterol HFA (PROVENTIL HFA, VENTOLIN HFA) 90 mcg/actuation inhaler Inhale 2 Puffs as instructed every 4 hours as needed. No current facility-administered medications for this visit. FAMILY HISTORY Problem Relation Age of Onset other (dementia [Other]) Father Heart Father Tremor Father Heart Mother Heart Brother Tremor Daughter Tremor Son Social History Tobacco Use Smoking status: Never Smokeless tobacco: Never Substance Use Topics Alcohol use: No Drug use: No EXAM: BP 148/78 Pulse 80 SpO2 94% PHYSICAL EXAM: Physical Exam Vitals reviewed. Constitutional: Appearance: Normal appearance. HENT: Head: Normocephalic. Cardiovascular: Rate and Rhythm: Normal rate and regular rhythm. Pulses: Normal pulses. Heart sounds: Normal heart sounds. Pulmonary: Effort: Pulmonary effort is normal. Breath sounds: Normal breath sounds. Abdominal: General: Bowel sounds are normal. Palpations: Abdomen is soft. Tenderness: There is no abdominal tenderness. There is no rebound. Musculoskeletal: Comments: Presents in a wheelchair, palpable T 12 pain that radiates to both sides of back Skin: General: Skin i (more content not included)... [facility] 08-27-2024 History of Presen t illness Narrative This is a 79 year old female who presents today with: Patient presents with: Follow Up: Back pain/fracture ER F/U: [facility] Fall 08/24/24 HISTORY OF PRESENT ILLNESS: Georgina Segura is a 79 year old female. Patient presents with: Follow Up: Back pain/fracture ER F/U: [facility] Fall 08/24/24 Pt. Seen for T 12 mild compression fracture. ER medicated her for pain with morphine. Compression fracture found here and sent there to be evaluated for bracing or kyphoplasty- that was not done. ER Reported that they hadn't changed from Xray report. Nothing else done. Tylenol helps. At times pain is a 9/10. Hurts on both lateral lower abdomen. Movement hurts. Hx of osteoporosis No loss of bowel or bladder function Sleeps on couch, wakes up at 2-3 am in the morning, then will go to bed and put home O2 on Daughter wants her to see Palliative Care PAST MEDICAL HISTORY: PAST MEDICAL HISTORY Diagnosis Date Arthritis of both hands 05/05/2016 Asthma ([facility]) 03/11/2010 Cervical disc disease 06/06/2013 Dementia without behavioral disturbance ([facility]) 10/11/2022 Depression, recurrent 10/11/2022 Diarrhea Diffuse cystic mastopathy 11/03/2005 Elevated CK 04/26/2012 Esophageal reflux 11/03/2005 Fracture of skull ([facility]) 02/16/2023 Hyperlipidemia 04/26/2012 Hypothyroidism, acquired 08/04/2022 Impingement syndrome of right shoulder 10/11/2016 Irritable bowel syndrome with diarrhea 05/31/2018 Mild intermittent asthma, uncomplicated ([facility]) 11/23/2022 Neurogenic bladder, NOS Odontoid fracture ([facility]) 08/20/2023 Other and unspecified hyperlipidemia Other forms of migraine Overactive bladder 02/12/2009 Primary localized osteoarthrosis, lower leg Rotator cuff syndrome 02/12/2009 Situational depression 05/31/2018 Statin intolerance 07/03/2018 Supraspinatus tendonitis 12/06/2012 Tear of biceps tendon 05/18/2017 Unspecified sleep apnea Urinary incontinence 03/11/2010 PAST SURGICAL HISTORY Procedure Laterality Date ADENOIDECTOMY PRIMARY <AGE 10 Adenoidectomy APPENDECTOMY COLONOSCOPY W/BIOPSY SINGLE/MULTIPLE 06/21/11 DILATION & CURETTAGE DX&/THER NONOBSTETRIC Dilation & curettage LAPAROSCOPY SURG CHOLECYSTECTOMY 07-15-06 Cholecystectomy, lap PAST SURGICAL HISTORY OF N/A 2017 urinary implant device TONSILLECTOMY PRIMARY/SECONDARY <AGE 10 Tonsillectomy VAGINAL HYSTERECTOMY UTERUS 250 GM/< Hysterectomy, vaginal ALLERGIES Vioxx [Rofecoxib] and Zocor [Simvastatin] MEDICATIONS Current Outpatient Medications Medication Sig solifenacin 10 mg tablet Take 1 tablet by mouth once daily. lactulose 10 gram/15 mL solution Take 30 mL by mouth two times a day as needed. Incontinence Pad, Liner, Disp pads 1 pad two times a day as needed. mirabegron (MYRBETRIQ) 50 mg Tb24 Take 1 tablet by mouth once daily. levothyroxine (SYNTHROID) 50 mcg tablet TAKE 1 TABLET BY MOUTH ONCE DAILY AT 6 AM FLUoxetine (PROZAC) 20 mg capsule Take 1 capsule by mouth every afternoon. famotidine (PEPCID) 40 mg tablet Take 1 tablet by mouth once daily. ezetimibe (ZETIA) 10 mg tablet Take 1 tablet by mouth once daily. carvedilol (COREG) 6.25 mg tablet Take 1 tablet by mouth two times a day with meals. pantoprazole DR (PROTONIX) 40 mg tablet Take 1 tablet by mouth once daily. ipratropium bromide (ATROVENT) 42 mcg (0.06 %) nasal spray Use 2 Sprays in the nose three times a day. diclofenac (VOLTAREN ARTHRITIS PAIN) 1 % topical gel Apply 2 g to affected area four times daily. (Patient not taking: Reported on 07/30/2024) cyclobenzaprine (FLEXERIL) 5 mg tablet Take 1 tablet by mouth three times a day. (Patient not taking: Reported on 07/30/2024) albuterol HFA (PROVENTIL HFA, VENTOLIN HFA) 90 mcg/actuation inhaler Inhale 2 Puffs as instructed every 4 hours as needed. No current facility-administered medications for this visit. FAMILY HISTORY Problem Relation Age of Onset other (dementia [Other]) Father Heart Father Tremor Father Heart Mother Heart Brother Tremor Daughter Tremor Son Social History Tobacco Use Smoking status: Never Smokeless tobacco: Never Substance Use Topics Alcohol use: No Drug use: No EXAM: BP 148/78 Pulse 80 SpO2 94% PHYSICAL EXAM: Physical Exam Vitals reviewed. Constitutional: Appearance: Normal appearance. HENT: Head: Normocephalic. Cardiovascular: Rate and Rhythm: Normal rate and regular rhythm. Pulses: Normal pulses. Heart sounds: Normal heart sounds. Pulmonary: Effort: Pulmonary effort is normal. Breath sounds: Normal breath sounds. Abdominal: General: Bowel sounds are normal. Palpations: Abdomen is soft. Tenderness: There is no abdominal tenderness. There is no rebound. Musculoskeletal: Comments: Presents in a wheelchair, palpable T 12 pain that radiates to both sides of back Skin: General: Skin is warm and dry. Neurological: Mental Status: She is alert and oriented to person, place, and time. LABS: ASSESSMENT/PLAN: 1. Compression fracture of T12 vertebra, sequela - ICD9: 905.1, ICD10: S22.080S (primary diagnosis) Acute fracture T12- CT did not apparently note instability - CONSULT TO PALLIATIVE CARE 2. Age-related osteoporosis with current pathological fracture, initial encounter - ICD9: 733.10, 733.01, ICD10: M80.00XA - Reviewed the need for Calcium and Vitamin D supplements and weight bearing exercise as tolerated - CALCIUM 500 MG ( CARBONATE)-VITAMIN D3 5 MCG (200 UNIT) TABLET - ALENDRONATE 70 MG TABLET weekly - CONSULT TO PALLIATIVE CARE 3. Acute low back pain without sciatica, unspecified back pain laterality - ICD9: 724.2, ICD10: M54.50 Relived with acetaminophen prn - LACTULOSE 10 GRAM/15 ML ORAL SOLUTION increased to 30 mg daily Discussed treatment plan and patient voices understanding. Patient's questions answered appropriately. Medications and potential side effects were discussed and patient voices understanding. Return to the office as scheduled or as needed for worsening/no improvement. Sylvie Ariza APRN.SHIRLEY documented in this encounter [facility] 08-24-2024 Radiology Diagnostic study note [facility] Imaging Services [address] [place], [place] [address] Spine Lumbar without Contrast MR#: [id number] Acct: [id number] Name: GEORGINA SEGURA Rep #: [id number] : 1945 F 79 From: Xavier Love MD PCP: Dr. Dinah Melgar MD Status: REG E R Study:Spine Lumbar without Contrast Date of E xam: 08/24/24 Exam# [id number] Ordering Dr: Ezequiel Hernandez DO PROCEDURE: SPINE LUMBAR WITHOUT CONTRAST 08/24/2024 REASON FOR EXAM: PAIN, TRAUMA TECHNIQUE: Lumbar spine CT without contrast. Coronal and Sagittal reconstruction series were provided. One or more dose reduction techniques were used (e.g., Automated exposure control, adjustment of the mA and/or kV according to patient size, use of iterative reconstruction technique COMPARISON: 08/14/2019 FINDINGS: Vertebrae: Mild wedge compression fracture of T12 which is unchanged. Alignment: Mild levoscoliosis centered at L2. 5 mm of anterolisthesis of L3 on L4 and L4 on L5 which is unchanged. L1-2: Moderate bilobed disc protrusion with vacuum disc formation produces moderate spinal stenosis and moderate bilateral neural foraminal stenosis. L2-3: Mild bilateral facet hypertrophy and severe ligamentum flavum hypertrophy. Moderate bilobed disc protrusion with vacuum disc formation produces moderate spinal stenosis and moderate bilateral neural foraminal stenosis. L3-4: Moderate bilateral facet hypertrophy and severe ligamentum flavum hypertrophy. 5 mm of anterolisthesis of L3 on L4 with a moderate bilobed disc protrusion produces severe spinal stenosis and moderate bilateral neural foraminal stenosis. L4-5: Moderate bilateral facet hypertrophy and ligamentum flavum hypertrophy. 5mm of anterolisthesis of L4 on L5 with a mild broad disc protrusion produces moderate spinal stenosis and moderate bilateral neural foraminal stenosis. L5-S1: Mild broad disc protrusion produces mild spinal stenosis and mild bilateral neural foraminal stenosis. Sacrum: Unremarkable. Sacral stimulator. CT/Spine Lumbar without Contrast IMPRESSION: Chronic mild wedge compression fracture of T12 which is unchanged. No new fracture or subluxation. Mild levoscoliosis with degenerative disc disease, similar to the prior study. Reading Location: [id number] CC: Dr. Ezequiel Keller DO; Dr. Dniah Melgar MD ~ 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Signed [facility] 08-24-2024 Telephone encounter Note Patient notified. [facility] 08-24-2024 Miscellaneous Notes Patient notified. Urinalysis showed only normal grant. No infection. documented in this encounter [facility] 08-23-2024 Progress note Formatting of t his note might be different from the original. Urinalysis showed only normal grant. No infection. [facility] 08-21-2024 Discharge summary [facility] 08-21-2024 Radiology Diagnostic study note [facility] Imaging Services [address] [place] [address] Abdomen/Pelvis W IV Cont ONLY MR#: [id number] Acct: [id number] Name: GEORGINA SEGURA Rep #: [id number] : 1945 F 79 From: Erick Johnson DO PCP: Dr. Dinah Melgar MD Status: REG E R Study:Abdomen/Pelvis W IV Cont ONLY Date of E xam: 08/21/24 Exam# [id number] Ordering Dr: Quentin Clark MICROSCOPIST-C PROCEDURE: ABDOMEN/PELVIS W IV CONT ONLY 08/21/2024 REASON FOR EXAM: ABDOMINAL PAIN TECHNIQUE: Abdomen and pelvis CT with intravenous contrast. Coronal and Sagittal reconstruction series were provided. PATIENT PREPARATION: Per protocol ORAL CONTRAST TYPE: None. AMOUNT: mL CONTRAST: Isovue 370 VOLUME: 99 mL Not Provided Gauge IV One or more dose reduction techniques were used (e.g., Automated exposure control, adjustment of the mA and/or kV according to patient size, use of iterative reconstruction technique. RADIATION DOSE SUMMARY: CTDlvol: 34 mGy DLP: 1133 mGycm COMPARISON: None FINDINGS: Lung bases: Mild dependent atelectasis Liver: Normal size. No mass. Gallbladder: Surgically absent. Spleen: Normal size. Pancreas: Diffuse fatty atrophy. Adrenals: Unremarkable Kidneys: Choose on Bladder: Unremarkable Reproductive Organs: Prior hysterectomy. Adnexal regions are unremarkable. Bowel: Evaluation of the bowel loops are limited due to lack of oral contrast. Stomach is decompressed. No inflammatory changes of the small bowel. Mild stool burden within the right colon. No inflammatory changes of the large bowel. Appendix: The appendix is not clearly visualized. Lymph nodes: No lymphadenopathy. Vasculature: Atherosclerotic calcification of the abdominal aorta and branches. Peritoneum / Retroperitoneum: No free air or free fluid. Bones: Degenerative changes of the lumbar spine. CT/Abdomen/Pelvis W IV Cont ONLY IMPRESSION: NO ACUTE FINDINGS AT THE ABDOMEN OR PELVIS ON CONTRAST-ENHANCED CT. [facility] CC: ASIF Mckeon; Dr. Dinah Melgar MD ~ 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Signed [facility] 08-21-2024 Discharge summary Note Date/Time August 21, 2024 11:05pm [facility] Medical Records Department [address] [place] [address] Emergency Department Summary 08/21/24 MR#: [id number] Acct: [id number] Name: GEORGINA SEGURA Rep #:[id number] : 1945 79 From: Quentin GOLD PCP: Dr. Dinah Melgar MD Status:REG E R Location: ED HPI <ASIF Whalen - Last Filed: 08/21/24 22:20> History of Present Illness Chief Complaint: Constipation Narrative Narrative: Patient is an 79-year-old female with history of hypertension, hyperlipidemia, chronic back pain who presents the [facility] apartment with 8 days of difficulty having a bowel movement. Pay states he is also been having lower back pain. She does have a chronic T12 compression fracture. Patient on her x-ray of her back yesterday, did show some dilated bowel loops concerning for obstruction. Patient has a daughter that has been trying to help her with her constipation. Patient has tried magnesium citrate, MiraLAX, a rectal exam, enemas and nothing is helping. She states that her abdomen is getting more full and more distendedand is here for evaluation. [facility] <ASIF Whalen - Last Filed: 08/21/24 22:20> [facility] Medical History NAYA (obstructive sleep apnea) Noncompliance with CPAP treatment Venous insufficiency (chronic) (peripheral) Dementia Dehydration Neurogenic bladder Frequent falls Glucose intolerance (impaired glucose tolerance) Loss of hearing Post-menopausal Ambulates with cane Arthritis Back pain Injury of head and neck Asthma CPAP (continuous positive airway pressure) dependence History of pain when walking Wears glasses Depression Overactive bladder High cholesterol Easy bruising Non-smoker PONV (postoperative nausea and vomiting) GERD (gastroesophageal reflux disease) Hypothyroid Home Medications ?Medication ?Instructions ?Recorded ?Last Taken ?Type famotidine 40 mg tablet 40 mg PO QHS GERD 06/11/22 U nknown History mirabegron 50 mg tablet,extended 50 mg PO DAILY OAB Unknown History release 24 hr (Myrbetriq) pantoprazole 40 mg granules 40 mg PO DAILY GERD 08/23/23 History delayed-release for susp in packet ezetimibe 10 mg tablet 10 mg PO DAILY cholestorol 1 05/28/22 08/23/23 History albuterol sulfate 90 mcg/actuation 2 inh inhalation Q4 H PRN 08/23/23 Unknown History aerosol inhaler SOB,Wheezing acetaminophen 500 mg tablet 1,000 mg (2 x 500 mg) PO Q 8 pain 09/07/23 Unknown Rx #180 tabs carvedilol 6.25 mg tablet 6.25 mg PO BIDCM heart #60 t abs 09/07/23 Unknown Rx fluoxetine 20 mg capsule (Prozac) 20 mg PO DAILY mood #30 caps 09/07/23 Unknown Rx ipratropium bromide 42 mcg (0.06 2 spray NASAL TID #1 BOTTLE 09/07/23 Unknown Rx %) nasal spray levothyroxine 50 mcg tablet 50 mcg PO DAILY@0600 thyro id #30 09/07/23 Unknown Rx tabs solifenacin 10 mg tablet 10 mg PO DAILY bladder 08/12 Unknown History polyethylene glycol 3350 17 17 g PO BID PRN constipati on 08/13/24 Unknown Hi story gram/dose oral powder (Miralax) lactulose 10 gram/15 mL oral 15 ml PO PRN 08/21/24 Unk nown History solution Allergy/AdvReac Type Severity Reaction Status Date / Time rofecoxib (From Vioxx) Allergy Unknown Verified 08/21/24 16:19 Surgical History Hx of surgical biopsy History of bladder surgery History of partial hysterectomy History of appendectomy History of cholecystectomy H/O lateral meniscus repair of right knee Social History housing: house Smoking Status: Former smoker second hand exposure: Yes substance use type: does not use ROS <ASIF Whalen - Last Filed: 08/21/24 22:20> ROS ED ROS Narrative Constitutional: Negative for fever, chills, weight loss, weakness Eyes: Negative for vision loss, vision change, double vision ENT: Negative for any sore throat, ear pain, congestion Cardiovascular: Negative for any chest pain, tightness, palpitations Respiratory: Negative for any cough, sputum production, hemoptysis, dyspnea, dyspnea on exertion, orthopnea Gastrointestinal: Negative for any nausea, vomiting, diarrhea, blood in stool, blood in vomit. Positive for abdominal pain, constipation : Negative for any urinary frequency, dysuria, retention, blood in urine Muscle skeletal: Negative for any neck pain. Positive for back pain Neurological: Negative for any headache, syncope, dizziness Skin: Negative for any rashes, itching, abrasions, lacerations Psychiatric: Negative for any depression, anxiety, stress, suicidal ideation, homicidal ideation Hematologic: Negative for any excessive bruising, easy bleeding EXAM <ASIF Whalen - Last Filed: 08/21/24 22:20> Physical Exam Narrative Exam Narrative: Vital signs reviewed. HEET: Head normocephalic atraumatic, TMs clear bilaterally. Posterior pharynx is clear, moist mucous membranes. Nares clear bilaterally. Neck: Supple with no lymphadenopathy or tenderness. No signs of meningismus. Cardiac: Regular rate and rhythm no murmurs gallops or rubs, equal peripheral pulses bilaterally. Respiratory: Lungs clear to auscultation bilaterally. No chest tenderness. Abdomen: Soft, nondistended. No abdominal bruit or pulsatile masses. No hepatosplenomegaly. Patient had hypoactive bowel sounds, no significant pain onpalpation. No peritoneum. No guarding Extremities: No peripheral edema, no signs of gross trauma or deformity. Activefull range of motion of all extremities. Neuro: Cranial nerves II through XII intact, no focal neurological deficits. Skin: Clean dry and intact with no rash, purpura, petechiae, vesicles or pustules. Backs/flank: No CVA tenderness, no midline spinal tenderness, no deformity. Psych: Normal mood and affect. No SI, HI or acute psychosis. Const Vital Signs: 08/21/24 16:18 08/21/24 16:23 08/21/24 21:00 Temperature 98 F Temperature Source Temporal Pulse Rate 89 76 Respiratory Rate 16 18 Blood Pressure 202/101 H 184/92 H 173/87 H Blood Pressure Mean 134 122 115 Pulse Ox 99 96 Oxygen Delivery Method Room Air Room Air 08/21/24 21:30 Temperature Temperature Source Pulse Rate Respiratory Rate Blood Pressure 157/76 H Blood Pressure Mean 103 Pulse Ox Oxygen Delivery Method <Abelardo Reddy MD - Last Filed: 08/21/24 23:05> Physical Exam Const Vital Signs: 08/21/24 16:18 08/21/24 16:23 08/21/24 21:00 Temperature 98 F Temperature Source Temporal Pulse Rate 89 76 Respiratory Rate 16 18 Blood Pressure 202/101 H 184/92 H 173/87 H Blood Pressure Mean 134 122 115 Pulse Ox 99 96 Oxygen Delivery Method Room Air Room Air 08/21/24 21:30 Temperature Temperature Source Pulse Rate Respiratory Rate Blood Pressure 157/76 H Blood Pressure Mean 103 Pulse Ox Oxygen Delivery Method MDM <ASIF Whalen - Last Filed: 08/21/24 22:20> [facility] Lab Data Labs: Laboratory Results - last 24 hr 08/21/24 08/21/24 08/21/24 21:14 21:25 21:25 WBC Cancelled Corrected WBC Cancelled RBC Cancelled Hgb Cancelled Hct Cancelled MCV Cancelled MCH Cancelled MCHC Cancelled RDW Std Deviation Cancelled RDW Coeff of Dionne Cancelled Plt Count Cancelled MPV Cancelled Immature Gran % (Auto) Cancelled Neut % (Auto) Cancelled Lymph % (Auto) Cancelled [place] % (Auto) Cancelled Eos % (Auto) Cancelled Baso % (Auto) Cancelled Absolute Neuts (auto) Cancelled Absolute Lymphs (auto) Cancelled Total Counted Cancelled Neutrophils % (Manual) Cancelled Band Neutrophils % Cancelled Lymphocytes % (Manual) Cancelled Monocytes % (Manual) Cancelled Eosinophils % (Manual) Cancelled Basophils % (Manual) Cancelled Metamyelocytes % Cancelled Myelocytes % Cancelled Promyelocytes % Cancelled Blast Cells % Cancelled Plasma Cell % (Manual) Cancelled Other Cells % Cancelled Nucleated RBC % Cancelled Nucleated RBCs/100 WBC Cancelled Differential Comment Cancelled Diff Path Review Cancelled Hypersegmented Neuts Cancelled Atypical Lymphocytes Cancelled Reactive Lymphocytes Cancelled Smudge Cells Cancelled Toxic Granulation Cancelled Toxic Vacuolation Cancelled Dohle Bodies Cancelled Rhoda Rods Cancelled Platelet Estimate Cancelled Plt Morphology Comment Cancelled RBC Morphology Cancelled Cancelled Polychromasia Cancelled Hypochromasia Cancelled Basophilic Stippling Cancelled Anisocytosis Cancelled Microcytosis Cancelled Macrocytosis Cancelled Spherocytes Cancelled Sickle Cells Cancelled Target Cells Cancelled Tear Drop Cells Cancelled Ovalocytes Cancelled Stomatocytes Cancelled Polanco-[place] Bodies Cancelled Stefano Cells Cancelled Bite Cells Cancelled Crenated Cell Cancelled Acanthocytes (Spur) Cancelled Rouleaux Cancelled Schistocytes Cancelled Sodium 138 Potassium 4.2 Chloride 98 Carbon Dioxide 25.8 Anion Gap 14 BUN 11 Creatinine 1.27 H Estim Creat Clear Calc 37.09 L Est GFR (MDRD) Non-Af 42 L BUN/Creatinine Ratio 8.7 L Glucose 104 H Lactic Acid Calcium 10.4 Total Bilirubin 0.48 AST 27 ALT 22 Alkaline Phosphatase 140 H Total Protein 8.1 Albumin 4.9 H Globulin 3.2 Albumin/Globulin Ratio 1.5 Urine Color Yellow Urine Clarity Clear Urine pH 6.5 Ur Specific [place] 1.010 Urine Protein 30 H Urine Glucose (UA) Normal Urine Ketones Negative Urine Occult Blood Negative Urine Nitrite Negative Urine Bilirubin Negative Urine Urobilinogen Normal Ur Leukocyte Esterase Negative Urine RBC 0 SEEN Urine WBC 0 SEEN Ur Squamous Epith Cells 0-5 SEEN Urine Bacteria 1+ Urine Mucus 0 SEEN 08/21/24 08/21/24 21:34 22:03 WBC 6.7 Corrected WBC RBC 4.09 L Hgb 12.3 Hct 37.0 MCV 90.5 MCH 30.1 MCHC 33.2 RDW Std Deviation 41.7 RDW Coeff of Dionne 12.7 Plt Count 306 MPV 8.7 Immature Gran % (Auto) 0.300 Neut % (Auto) 52.6 Lymph % (Auto) 34.0 [place] % (Auto) 10.5 H Eos % (Auto) 1.8 Baso % (Auto) 0.8 Absolute Neuts (auto) 3.5 Absolute Lymphs (auto) 2.26 Total Counted Neutrophils % (Manual) Band Neutrophils % Lymphocytes % (Manual) Monocytes % (Manual) Eosinophils % (Manual) Basophils % (Manual) Metamyelocytes % Myelocytes % Promyelocytes % Blast Cells % Plasma Cell % (Manual) Other Cells % Nucleated RBC % 0 Nucleated RBCs/100 WBC Differential Comment Diff Path Review Hypersegmented Neuts Atypical Lymphocytes Reactive Lymphocytes Smudge Cells Toxic Granulation Toxic Vacuolation Dohle Bodies Rhoda Rods Platelet Estimate Plt Morphology Comment RBC Morphology Polychromasia Hypochromasia Basophilic Stippling Anisocytosis Microcytosis Macrocytosis Spherocytes Sickle Cells Target Cells Tear Drop Cells Ovalocytes Stomatocytes Polanco-[place] Bodies Sumner Cells Bite Cells Crenated Cell Acanthocytes (Spur) Rouleaux Schistocytes Sodium Potassium Chloride Carbon Dioxide Anion Gap BUN Creatinine Estim Creat Clear Calc Est GFR (MDRD) Non-Af BUN/Creatinine Ratio Glucose Lactic Acid 1.1 Calcium Total Bilirubin AST ALT Alkaline Phosphatase Total Protein Albumin Globulin Albumin/Globulin Ratio Urine Color Urine Clarity Urine pH Ur Specific [place] Urine Protein Urine Glucose (UA) Urine Ketones Urine Occult Blood Urine Nitrite Urine Bilirubin Urine Urobilinogen Ur Leukocyte Esterase Urine RBC Urine WBC Ur Squamous Epith Cells Urine Bacteria Urine Mucus Radiography Diagnostic Testing: Clinical Impression(s) from Imaging Studies Abdomen/Pelvis CT 08/21/24 21:35 IMPRESSION: NO ACUTE FINDINGS AT THE ABDOMEN OR PELVIS ON CONTRAST-ENHANCED CT. Reading [facility] Treatment and Re-Evaluation :: Differential diagnosis includes however is not limited to: Bowel obstruction, constipation, significant stool burden, colitis, diverticulitis Patient is slightly hypertensive, in no obvious distress. Presenting to the emergency department for ongoing abdominal pain, constipation for the last 8 days. Patient will receive basic laboratory values as well as IV fluids, CT scan of the abdomen pelvis IV contrast. All radiologic examinations were read, reviewed by the emergency department attending. From these reads, a plan of care will be put in place. <Abelardo Reddy MD - Last Filed: 08/21/24 23:05> [facility] MDM Narrative Medical decision making narrative: Dr. Reddy: Dr. Reddy: I have personally performed a face to face assessment of the patient and have reviewed the ZE Note. I performed a substantive portion of the visit including all aspects of the following. My comer findings include: History is patient presents for lack of bowel movement and concern for bowel obstruction on outpatient x-ray. Family states that it was approximately 1 weekbefore she had a bowel movement on Tuesday. She was seen by another physician and her primary care provider's office who did x-rays yesterday. They were put on a liquid diet and told to come to the emergency department regarding a dilated small bowel loop with concern for early bowel obstruction. She was alsodiagnosed with a T12 fracture of undetermined age on that x-ray. Exam is afebrile. Vital signs noted. Nontoxic-appearing. Cardiovascular examination regular rate and rhythm. Lungs clear to auscultation bilaterally. Abdomen is soft, nontender without guarding or rebound. Positive bowel sounds. Medical Decision Making: Check labs. Check CT. I reviewed her laboratory work and she has normal white count. On her electrolyte panel, she has slightly elevated creatinine of 1.27 but when compared to prior labs she seems to be at her baseline. Lactic acid is normal so I have a low suspicion for ischemic bowel disease. I reviewed the radiology report of the CT of the abdomen and pelvis. There is no acute process, no obstruction. She does have moderate stool burden in the right colon. I discussed the findings with the patient and her family. I do not feel that she requires observation or admission as there is no evidence of a bowel obstruction as seen on the x-ray/concern on the x-ray. At this point in time, I do not feel that enemas would be effective as she has no stool in the colon. We discussed transit time for the stool to go across through the transverse colon, down the left colon and into the rectosigmoid area. Regarding her age indeterminate T12 compression fracture, she will continue Tylenol as she was told that opiates may cause constipation and decreased bowel motility. At this point in time she was discharged to follow-upwith her primary care provider. Return instructions were reviewed. Dispositionis discharged home in stable condition. Other additions or changes: [None] History & Record Review Discussion w/independent historian: Patient and Family Lab Data Attestation: I reviewed the patient's lab results. Labs: Laboratory Results - last 24 hr 08/21/24 08/21/24 08/21/24 21:14 21:25 21:25 WBC Cancelled Corrected WBC Cancelled RBC Cancelled Hgb Cancelled Hct Cancelled MCV Cancelled MCH Cancelled MCHC Cancelled RDW Std Deviation Cancelled RDW Coeff of Dionne Cancelled Plt Count Cancelled MPV Cancelled Immature Gran % (Auto) Cancelled Neut % (Auto) Cancelled Lymph % (Auto) Cancelled [place] % (Auto) Cancelled Eos % (Auto) Cancelled Baso % (Auto) Cancelled Absolute Neuts (auto) Cancelled Absolute Lymphs (auto) Cancelled Total Counted Cancelled Neutrophils % (Manual) Cancelled Band Neutrophils % Cancelled Lymphocytes % (Manual) Cancelled Monocytes % (Manual) Cancelled Eosinophils % (Manual) Cancelled Basophils % (Manual) Cancelled Metamyelocytes % Cancelled Myelocytes % Cancelled Promyelocytes % Cancelled Blast Cells % Cancelled Plasma Cell % (Manual) Cancelled Other Cells % Cancelled Nucleated RBC % Cancelled Nucleated RBCs/100 WBC Cancelled Differential Comment Cancelled Diff Path Review Cancelled Hypersegmented Neuts Cancelled Atypical Lymphocytes Cancelled Reactive Lymphocytes Cancelled Smudge Cells Cancelled Toxic Granulation Cancelled Toxic Vacuolation Cancelled Dohle Bodies Cancelled Rhoda Rods Cancelled Platelet Estimate Cancelled Plt Morphology Comment Cancelled RBC Morphology Cancelled Cancelled Polychromasia Cancelled Hypochromasia Cancelled Basophilic Stippling Cancelled Anisocytosis Cancelled Microcytosis Cancelled Macrocytosis Cancelled Spherocytes Cancelled Sickle Cells Cancelled Target Cells Cancelled Tear Drop Cells Cancelled Ovalocytes Cancelled Stomatocytes Cancelled Polanco-[place] Bodies Cancelled Stefano Cells Cancelled Bite Cells Cancelled Crenated Cell Cancelled Acanthocytes (Spur) Cancelled Rouleaux Cancelled Schistocytes Cancelled Sodium 138 Potassium 4.2 Chloride 98 Carbon Dioxide 25.8 Anion Gap 14 BUN 11 Creatinine 1.27 H Estim Creat Clear Calc 37.09 L Est GFR (MDRD) Non-Af 42 L BUN/Creatinine Ratio 8.7 L Glucose 104 H Lactic Acid Calcium 10.4 Total Bilirubin 0.48 AST 27 ALT 22 Alkaline Phosphatase 140 H Total Protein 8.1 Albumin 4.9 H Globulin 3.2 Albumin/Globulin Ratio 1.5 Urine Color Yellow Urine Clarity Clear Urine pH 6.5 Ur Specific [place] 1.010 Urine Protein 30 H Urine Glucose (UA) Normal Urine Ketones Negative Urine Occult Blood Negative Urine Nitrite Negative Urine Bilirubin Negative Urine Urobilinogen Normal Ur Leukocyte Esterase Negative Urine RBC 0 SEEN Urine WBC 0 SEEN Ur Squamous Epith Cells 0-5 SEEN Urine Bacteria 1+ Urine Mucus 0 SEEN 08/21/24 08/21/24 21:34 22:03 WBC 6.7 Corrected WBC RBC 4.09 L Hgb 12.3 Hct 37.0 MCV 90.5 MCH 30.1 MCHC 33.2 RDW Std Deviation 41.7 RDW Coeff of Dionne 12.7 Plt Count 306 MPV 8.7 Immature Gran % (Auto) 0.300 Neut % (Auto) 52.6 Lymph % (Auto) 34.0 [place] % (Auto) 10.5 H Eos % (Auto) 1.8 Baso % (Auto) 0.8 Absolute Neuts (auto) 3.5 Absolute Lymphs (auto) 2.26 Total Counted Neutrophils % (Manual) Band Neutrophils % Lymphocytes % (Manual) Monocytes % (Manual) Eosinophils % (Manual) Basophils % (Manual) Metamyelocytes % Myelocytes % Promyelocytes % Blast Cells % Plasma Cell % (Manual) Other Cells % Nucleated RBC % 0 Nucleated RBCs/100 WBC Differential Comment Diff Path Review Hypersegmented Neuts Atypical Lymphocytes Reactive Lymphocytes Smudge Cells Toxic Granulation Toxic Vacuolation Dohle Bodies Rhoda Rods Platelet Estimate Plt Morphology Comment RBC Morphology Polychromasia Hypochromasia Basophilic Stippling Anisocytosis Microcytosis Macrocytosis Spherocytes Sickle Cells Target Cells Tear Drop Cells Ovalocytes Stomatocytes Polanco-[place] Bodies Sumner Cells Bite Cells Crenated Cell Acanthocytes (Spur) Rouleaux Schistocytes Sodium Potassium Chloride Carbon Dioxide Anion Gap BUN Creatinine Estim Creat Clear Calc Est GFR (MDRD) Non-Af BUN/Creatinine Ratio Glucose Lactic Acid 1.1 Calcium Total Bilirubin AST ALT Alkaline Phosphatase Total Protein Albumin Globulin Albumin/Globulin Ratio Urine Color Urine Clarity Urine pH Ur Specific [place] Urine Protein Urine Glucose (UA) Urine Ketones Urine Occult Blood Urine Nitrite Urine Bilirubin Urine Urobilinogen Ur Leukocyte Esterase Urine RBC Urine WBC Ur Squamous Epith Cells Urine Bacteria Urine Mucus Radiography Diagnostic Testing: Clinical Impression(s) from Imaging Studies Abdomen/Pelvis CT 08/21/24 21:35 IMPRESSION: NO ACUTE FINDINGS AT THE ABDOMEN OR PELVIS ON CONTRAST-ENHANCED CT. [facility] Triage Chief Complaint: Constipation ED Midlevel Provider: Quentin Mckeon ED Provider: Abelardo Reddy Dx/Rx/DC Orders Clinical Impression: Constipation, Back pain, T12 vertebral fracture Instructions: ED Fracture, Vertebral Compression, ED Constipation (Adult) Prescriptions: No Action famotidine 40 mg Tablet 40 mg PO QHS pantoprazole [address] For Susp In Packet 40 mg PO DAILY mirabegron [Myrbetriq] 50 mg Tablet Extended Release 24 Hr 50 mg PO DAILY ezetimibe 10 mg tablet 10 mg PO DAILY albuterol sulfate 90 mcg/actuation HFA aerosol inhaler 2 inh inhalation Q4H PRN (Reason: SOB,Wheezing) fluoxetine [Prozac] 20 mg capsule 20 mg PO DAILY Qty: 30 0RF carvedilol 6.25 mg Tablet 6.25 mg PO BIDCM Qty: 60 0RF acetaminophen 500 mg Tablet 1,000 mg PO Q8 Qty: 180 0RF levothyroxine 50 mcg Tablet 50 mcg PO DAILY@0600 Qty: 30 0RF ipratropium bromide 42 mcg (0.06 %) [place],Non-Aerosol 2 spray NASAL TID Qty: 1 0RF solifenacin 10 mg tablet 10 mg PO DAILY polyethylene glycol 3350 [Miralax] 17 gram/dose powder 17 g PO BID PRN (Reason: constipation) lactulose 10 gram/15 mL solution 15 ml PO PRN Primary Care Provider: Dinah Melgar Referrals: Dinah Melgar MD [Primary Care Provider] - Activity Restrictions/Additional Instructions: Your laboratory work was grossly unremarkable today. You do not have an elevated white count meaning infection and inflammation. The CT of your abdomen and pelvis did not show any bowel obstruction. You did have a moderate amount of stool in the right colon. It will take some time for it to travel through the transverse and left colon, to the rectosigmoid colon. Follow-up with your primary care provider in the next 1 to 2 days regarding your T12 compression fracture that was age-indeterminate as read on your outpatient x-ray. Continue Tylenol 650 mg every 4-6 hours as needed for pain. Opiates may cause decreased colonic activity. Return to the emergency department with fever, nausea and vomiting, new or worsening symptoms. Print Language: Italian Disposition Disposition: Home, Self Care What to do if you have Problems For any increased pain, shortness of breath, bleeding, nausea or vomiting, chestpain, or any unexpected problems, contact your Primary Care Provider. Call [facility] ([phone]) or report to the closest Emergency Room. Call 911 if necessary. 08/21/242219 <Electronically signed by Quentin GOLD> Cosigner Signature (if applicable): 08/21/242304 <Electronically signed by Abelardo Reddy MD> CC: Dr. Dinah Melgar MD ~ Signed [facility] Work Phone: [phone] 962-826304-14-2025 Telephone encounter Note* Telephone Encounter - Joelle Newby MA - 08/20/2024 4:37 PM EDT Daughter was notified of results and verbalizes understanding provider message Joelle Newby Ma [facility]04-14-2025 Miscellaneous Notes* Telephone Encounter - Joelle Newby MA - 08/20/2024 4:37 PM EDT Daughter was notified of results and verbalizes understanding provider message Joelle Newby Ma * Telephone Encounter - Joelle Newby MA - 08/20/2024 4:30 PM EDT ----- Message from Sylvie Ariza sent at 08/20/2024 4:27 PM EDT ----- Please let patient know that she has a mildly dilated loop of small bowel on the left meaning a possible start of bowel obstruction. Moderate amount of stool burden. Have her switch to a liquid diet and try to get her bowels moving. If she is unable to move her bowels by tomorrow, go to the emergency room. Also, she has a T12 mild compression fracture. That may be the source of her discomfort. We should follow-up in a week to make certain that she is comfortable and that her low back pain has improved. * Result Encounter Note - Sylvie Ariza APRN.CNP - 08/20/2024 4:27 PM EDT Please let patient know that she has a mildly dilated loop of small bowel on the left meaning a possible start of bowel obstruction. Moderate amount of stool burden. Have her switch to a liquid diet and try to get her bowels moving. If she is unable to move her bowels by tomorrow, go to the emergency room. Also, she has a T12 mild compression fracture. That may be the source of her discomfort. We should follow-up in a week to make certain that she is comfortable and that her low back pain has improved. [facility] Telephone encounter Note * Telephone Encounter - Joelle Newby MA - 08/20/2024 4:30 PM EDT ----- Message from Sylvie Ariza sent at 08/20/2024 4:27 PM EDT ----- Please let patient know that she has a mildly dilated loop of small bowel on the left meaning a possible start of bowel obstruction. Moderate amount of stool burden. Have her switch to a liquid diet and try to get her bowels moving. If she is unable to move her bowels by tomorrow, go to the emergency room. Also, she has a T12 mild compression fracture. That may be the source of her discomfort. We should follow-up in a week to make certain that she is comfortable and that her low back pain has improved. [facility]04-14-2025 Progress note* Result Encounter Note - Sylvie Ariza APRN.CNP - 08/20/2024 4:27 PM EDT Please let patient know that she has a mildly dilated loop of small bowel on the left meaning a possible start of bowel obstruction. Moderate amount of stool burden. Have her switch to a liquid diet and try to get her bowels moving. If she is unable to move her bowels by tomorrow, go to the emergency room. Also, she has a T12 mild compression fracture. That may be the source of her discomfort. We should follow-up in a week to make certain that she is comfortable and that her low back pain has improved. [facility]04-14-2025 History of Present illness Narrative* Sonya Osborne Tech - 08/20/2024 2:30 PM EDT Radiology Service Progress Note PATIENT NAME: Georgina Segura DATE OF SERVICE: August 20, 2024 TIME: 2:38 PM PATIENT IDENTITY VERIFICATION COMPLETED USING TWO (2) IDENTIFIERS: Name and Date of confirmedby patient verbally. FALL SCREENING: Has the patient had 2 falls in the last year or 1 fall with injury or currently using an Ambulatory Assistive Device (Walker, Cane, Wheelchair, Crutches, etc.)? No PATIENT GENDER DATA: Assigned female at . status: : No status:NO. PATIENT RELEVANT IMPLANT DATA REVIEWED: Not Applicable PATIENT PRESENTS WITH AN IMPLANTABLE OR ATTACHED [facility] DIRECTOR: No RADIOLOGY DEPARTMENT: General X-ray: Exam(s) Completed: Abdomen X-Ray: Abdomen Spine X-Ray(s): Lumbar AP / LAT / L5-S1 PERIPHERAL IV DATA: Not applicable SIGNED BY: Eldon Morgan August 20, 2024 2:38 PM [facility]25 NoteHNO ID: [id number] Author: SONYA OSBORNE Tech Service: ? Author Type: Technologist Type: Progress Notes Filed: 08/20/2024 14:59 Note Text: Radiology Service Progress Note PATIENT NAME: Georgina Segura DATE OF SERVICE: August 20, 2024 TIME: 2:38 PM PATIENT IDENTITY VERIFICATION COMPLETED USING TWO (2) IDENTIFIERS: Name and Date of confirmed by patient verbally. FALL SCREENING: Has the patient had 2 falls in the last year or 1 fall with injury or currently using an Ambulatory Assistive Device (Walker, Cane, Wheelchair, Crutches, etc.)? No PATIENT GENDER DATA: Assigned female at . status: : No status: NO. PATIENT RELEVANT IMPLANT DATA REVIEWED: Not Applicable PATIENT PRESENTS WITH AN IMPLANTABLE OR ATTACHED [facility] DIRECTOR: No RADIOLOGY DEPARTMENT: General X-ray: Exam(s) Completed: Abdomen X-Ray: Abdomen Spine X-Ray(s): Lumbar AP / LAT / L5-S1 PERIPHERAL IV DATA: Not applicable SIGNED BY: Eldon Morgan August 20, 2024 2:38 [facility]04-14-2025 Instructions* Patient Instructions* Sylvie Ariza APRN.CNP - 08/20/2024 2:21 PM EDT 1) Get Xrays done today 2) Lactulose 1 Tbsp 2 x day as needed for constipation 3) Sending urine for culture 4) Incontinence pads ordered [facility]25 NoteHNO ID: [id number] Author: SYLVIE ARIZA APRN.CNP Service: ? Author Type: Nurse Practitioner Type: Progress Notes Filed: 08/20/2024 14:23 Note Text: This is a 79 year old female who presents today with: Patient presents with: Hospital F/U: UTI Constipation HISTORY OF PRESENT ILLNESS: Georgina Segura is a 79 year old female. Patient presents with: Hospital F/U: UTI Constipation Fell a week ago, Tuesday (about 10 days ago) First fell out of bed. The same day, she turned in the kitchen an fell again. Was in hospital overnight for cystitis. Treated with cephalexin. Pain axial lumbar- hurts to move No radiation No nausea or vomiting No fever or chills. No appetite. Constipation. No stool for 5 days Daughter gave her an enema. Then a second enema. Dulcolax liquid caused only liquid stool Kayexalate didn't work PAST MEDICAL HISTORY: PAST MEDICAL HISTORY Diagnosis Date Arthritis of both hands 05/05/2016 Asthma 03/11/2010 Cervical disc disease 06/06/2013 Dementia without behavioral disturbance (HCC) 10/11/2022 Depression, recurrent 10/11/2022 Diarrhea Diffuse cystic mastopathy 11/03/2005 Elevated CK 04/26/2012 Esophageal reflux 11/03/2005 Fracture of skull ([facility]) 02/16/2023 Hyperlipidemia 04/26/2012 Hypothyroidism, acquired 08/04/2022 Impingement syndrome of right shoulder 10/11/2016 Irritable bowel syndrome with diarrhea 05/31/2018 Mild intermittent asthma, uncomplicated 11/23/2022 Neurogenic bladder, NOS Odontoid fracture ([facility]) 08/20/2023 Other and unspecified hyperlipidemia Other forms of migraine Overactive bladder 02/12/2009 Primary localized osteoarthrosis, lower leg Rotator cuff syndrome 02/12/2009 Situational depression 05/31/2018 Statin intolerance 07/03/2018 Supraspinatus tendonitis 12/06/2012 Tear of biceps tendon 05/18/2017 Unspecified sleep apnea Urinary incontinence 03/11/2010 PAST SURGICAL HISTORY Procedure Laterality Date ADENOIDECTOMY PRIMARY Adenoidectomy APPENDECTOMY COLONOSCOPY W/BIOPSY SINGLE/MULTIPLE 06/21/11 DILATION AND CURETTAGE DXAND/THER NONOBSTETRIC Dilation AND curettage LAPAROSCOPY SURG CHOLECYSTECTOMY 07-15-06 Cholecystectomy, lap PAST SURGICAL HISTORY OF N/A 2017 urinary implant device TONSILLECTOMY PRIMARY/SECONDARY Tonsillectomy VAGINAL HYSTERECTOMY UTERUS 250 GM/< Hysterectomy, vaginal ALLERGIES Vioxx [Rofecoxib] and Zocor [Simvastatin] MEDICATIONS Current Outpatient Medications Medication Sig solifenacin 10 mg tablet Take 1 tablet by mouth once daily. mirabegron (MYRBETRIQ) 50 mg Tb24 Take 1 tablet by mouth once daily. levothyroxine (SYNTHROID) 50 mcg tablet TAKE 1 TABLET BY MOUTH ONCE DAILY AT 6 AM FLUoxetine (PROZAC) 20 mg capsule Take 1 capsule by mouth every afternoon. famotidine (PEPCID) 40 mg tablet Take 1 tablet by mouth once daily. ezetimibe (ZETIA) 10 mg tablet Take 1 tablet by mouth once daily. carvedilol (COREG) 6.25 mg tablet Take 1 tablet by mouth two times a day with meals. pantoprazole DR (PROTONIX) 40 mg tablet Take 1 tablet by mouth once daily. ipratropium bromide (ATROVENT) 42 mcg (0.06 %) nasal spray Use 2 Sprays in the nose three times a day. albuterol HFA (PROVENTIL HFA, VENTOLIN HFA) 90 mcg/actuation inhaler Inhale 2 Puffs as instructed every 4 hours as needed. diclofenac (VOLTAREN ARTHRITIS PAIN) 1 % topical gel Apply 2 g to affected area four times daily. (Patient not taking: Reported on 07/30/2024) cyclobenzaprine (FLEXERIL) 5 mg tablet Take 1 tablet by mouth three times a day. (Patient not taking: Reported on 07/30/2024) No current facility-administered medications for this visit. FAMILY HISTORY Problem Relation Age of Onset other (dementia [Other]) Father Heart Father Tremor Father Heart Mother Heart Brother Tremor Daughter Tremor Son Social History Tobacco Use Smoking status: Never Smokeless tobacco: Never Substance Use Topics Alcohol use: No Drug use: No EXAM: BP 128/72 Pulse 80 Temp 37.6 ?C (99.7 ?F) (Right Tympanic) SpO2 93% PHYSICAL EXAM: Physical Exam Vitals reviewed. Constitutional: Appearance: Normal appearance. Cardiovascular: Rate and Rhythm: Normal rate and regular rhythm. Pulses: Normal pulses. Heart sounds: Normal heart sounds. Pulmonary: Effort: Pulmonary effort is normal. Breath sounds: Normal breath sounds. Musculoskeletal: Comments: Presents in a wheelchair because she is having back pain Walks w/ a cane Skin: General: Skin is warm and dry. Neurological: Mental Status: She is alert and oriented to person, place, and time. LABS: urine culture, Xray abd and low back ASSESSMENT/PLAN: 1. Dysuria - ICD9: 788.1, ICD10: R30.0 (primary diagnosis) One last antibiotic, urine dip shows negative nitrates and leukocytes - Patient education for prevention given - UA DIP, URINE (POC) - BACTERIAL CULTURE, URINE 2. Acute low back pain without sciatica, unspecified back pain laterality - (more content not included)...[facility]04-14-2025 History of Present illness Narrative* Sylvie Ariza 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 - 08/20/2024 1:56 PM EDT This is a 79 year old female who presents today with: Patient presents with: Hospital F/U: UTI Constipation HISTORY OF PRESENT ILLNESS: Georgina Segura is a 79 year old female. Patient presents with: Hospital F/U: UTI Constipation Fell a week ago, Tuesday (about 10 days ago) First fell out of bed. The same day, she turned in the kitchen an fell again. Was in hospital overnight for cystitis. Treated with cephalexin. Pain axial lumbar- hurts to move No radiation No nausea or vomiting No fever or chills. No appetite. Constipation. No stool for 5 days Daughter gave her an enema. Then a second enema. Dulcolax liquid caused only liquid stool Kayexalate didn't work PAST MEDICAL HISTORY: PAST MEDICAL HISTORY Diagnosis Date Arthritis of both hands 05/05/2016 Asthma 03/11/2010 Cervical disc disease 06/06/2013 Dementia without behavioral disturbance (HCC) 10/11/2022 Depression, recurrent 10/11/2022 Diarrhea Diffuse cystic mastopathy 11/03/2005 Elevated CK 04/26/2012 Esophageal reflux 11/03/2005 Fracture of skull (HCC) 02/16/2023 Hyperlipidemia 04/26/2012 Hypothyroidism, acquired 08/04/2022 Impingement syndrome of right shoulder 10/11/2016 Irritable bowel syndrome with diarrhea 05/31/2018 Mild intermittent asthma, uncomplicated 11/23/2022 Neurogenic bladder, NOS Odontoid fracture (HCC) 08/20/2023 Other and unspecified hyperlipidemia Other forms of migraine Overactive bladder 02/12/2009 Primary localized osteoarthrosis, lower leg Rotator cuff syndrome 02/12/2009 Situational depression 05/31/2018 Statin intolerance 07/03/2018 Supraspinatus tendonitis 12/06/2012 Tear of biceps tendon 05/18/2017 Unspecified sleep apnea Urinary incontinence 03/11/2010 PAST SURGICAL HISTORY Procedure Laterality Date ADENOIDECTOMY PRIMARY <AGE 10 Adenoidectomy APPENDECTOMY COLONOSCOPY W/BIOPSY SINGLE/MULTIPLE 06/21/11 DILATION & CURETTAGE DX&/THER NONOBSTETRIC Dilation & curettage LAPAROSCOPY SURG CHOLECYSTECTOMY 07-15-06 Cholecystectomy, lap PAST SURGICAL HISTORY OF N/A 2017 urinary implant device TONSILLECTOMY PRIMARY/SECONDARY <AGE 10 Tonsillectomy VAGINAL HYSTERECTOMY UTERUS 250 GM/< Hysterectomy, vaginal ALLERGIES Vioxx [Rofecoxib] and Zocor [Simvastatin] MEDICATIONS Current Outpatient Medications Medication Sig solifenacin 10 mg tablet Take 1 tablet by mouth once daily. mirabegron (MYRBETRIQ) 50 mg Tb24 Take 1 tablet by mouth once daily. levothyroxine (SYNTHROID) 50 mcg tablet TAKE 1 TABLET BY MOUTH ONCE DAILY AT 6 AM FLUoxetine (PROZAC) 20 mg capsule Take 1 capsule by mouth every afternoon. famotidine (PEPCID) 40 mg tablet Take 1 tablet by mouth once daily. ezetimibe (ZETIA) 10 mg tablet Take 1 tablet by mouth once daily. carvedilol (COREG) 6.25 mg tablet Take 1 tablet by mouth two times a day with meals. pantoprazole DR (PROTONIX) 40 mg tablet Take 1 tablet by mouth once daily. ipratropium bromide (ATROVENT) 42 mcg (0.06 %) nasal spray Use 2 Sprays in the nose three times a day. albuterol HFA (PROVENTIL HFA, VENTOLIN HFA) 90 mcg/actuation inhaler Inhale 2 Puffs as instructed every 4 hours as needed. diclofenac (VOLTAREN ARTHRITIS PAIN) 1 % topical gel Apply 2 g to affected area four times daily. (Patient not taking: Reported on 07/30/2024) cyclobenzaprine (FLEXERIL) 5 mg tablet Take 1 tablet by mouth three times a day. (Patient not taking: Reported on 07/30/2024) No current facility-administered medications for this visit. FAMILY HISTORY Problem Relation Age of Onset other (dementia [Other]) Father Heart Father Tremor Father Heart Mother Heart Brother Tremor Daughter Tremor Son Social History Tobacco Use Smoking status: Never Smokeless tobacco: Never Substance Use Topics Alcohol use: No Drug use: No EXAM: BP 128/72 Pulse 80 Temp 37.6 C (99.7 F) (Right Tympanic) SpO2 93% PHYSICAL EXAM: Physical Exam Vitals reviewed. Constitutional: Appearance: Normal appearance. Cardiovascular: Rate and Rhythm: Normal rate and regular rhythm. Pulses: Normal pulses. Heart sounds: Normal heart sounds. Pulmonary: Effort: Pulmonary effort is normal. Breath sounds: Normal breath sounds. Musculoskeletal: Comments: Presents in a wheelchair because she is having back pain Walks w/ a cane Skin: General: Skin is warm and dry. Neurological: Mental Status: She is alert and oriented to person, place, and time. LABS: urine culture, Xray abd and low back ASSESSMENT/PLAN: 1. Dysuria - ICD9: 788.1, ICD10: R30.0 (primary diagnosis) One last antibiotic, urine dip shows negative nitrates and leukocytes - Patient education for prevention given - UA DIP, URINE (POC) - BACTERIAL CULTURE, URINE 2. Acute low back pain without sciatica, unspecified back pain laterality - ICD9: 724.2, ICD10: M54.50 Possible constipation, bladder infection, vs lumbar compression fx - XR LUMBAR GENERAL 3V AP/LAT/L5-S1 - XR ABDOMEN 1V SUPINE - LACTULOSE 10 GRAM/15 ML ORAL SOLUTION 2 x day as needed Discussed treatment plan and patient voices understanding. Patient's questions answered appropriately. Medications and potential side effects were discussed and patient voices understanding. Return to the office as scheduled or as needed for worsening/no improvement. Sylvie Ariza APRN.SHIRLEY [facility] Discharge summary Author Charlee Hernandez [facility] Note Date/Time August 15, 2024 1:02 pm [facility] Medical Records Department [address] [place] [id number] Discharge Summary 08/15/24 1252 MR#: [id number] Acct: [id number] Name: GEORGINA SEGURA Rep #:[id number] : 1945 79 From: Charlee Hernandez DO PCP: Dr. Dinah Melgar MD Status:ADM I N [facility] Prov[facility] Date of Admission: 08/14/24 Date of Discharge: 08/15/24 Primary Care Physician: Dr. Dinah Melgar MD Reason For Visit: UTI Diagnosis Discharge Diagnosis (1) Acute cystitis without hematuria: Status: Acute Code(s): N30.00 - Acute cystitis without hematuria (2) Acute myofascial strain of lumbosacral region: Status: Acute Code(s): S39.012A - Strain of muscle, fascia and tendon of lower back, initial encounter Qualifiers: Encounter type: initial encounter Qualified Code(s): S39.012A - Strain of muscle, fascia and tendon of lower back, initial encounter (3) Hypoxia: Status: Acute Code(s): R09.02 - Hypoxemia (4) Sleep apnea: Status: Chronic Code(s): G47.30 - Sleep apnea, unspecified Qualifiers: Sleep apnea type: obstructive Qualified Code(s): G47.33 - Obstructive sleep apnea (adult) (pediatric) (5) Obesity (BMI 30-39.9): Status: Acute Code(s): E66.9 - Obesity, unspecified Medications at Discharge Home Medications famotidine 40 mg tablet 40 mg PO QHS GERD 06/11/22 mirabegron 50 mg tablet,extended release 24 hr (Myrbetriq) 50 mg PO DAILY OAB 06/11/22 pantoprazole 40 mg granules delayed-release for susp in packet 40 mg PO DAILY GERD 06/11/22 ezetimibe 10 mg tablet 10 mg PO DAILY cholestorol 03/28/23 albuterol sulfate 90 mcg/actuation aerosol inhaler 2 inh inhalation Q4H PRN SOB,Wheezing 08/23/23 acetaminophen 500 mg tablet 1,000 mg (2 x 500 mg) PO Q8 pain #180 tabs 09/07/23 carvedilol 6.25 mg tablet 6.25 mg PO BIDCM heart #60 tabs 09/07/23 fluoxetine 20 mg capsule (Prozac) 20 mg PO DAILY mood #30 caps 09/07/23 ipratropium bromide 42 mcg (0.06 %) nasal spray 2 spray NASAL TID #1 BOTTLE 09/07/23 levothyroxine 50 mcg tablet 50 mcg PO DAILY@0600 thyroid #30 tabs 09/07/23 solifenacin 10 mg tablet 10 mg PO DAILY bladder 08/12/24 polyethylene glycol 3350 17 gram/dose oral powder (Miralax) 17 g PO BID PRN constipation 08/13/24 cephalexin 500 mg capsule 500 mg PO BID #10 caps 08/15/24 Hospital Course Operations None Procedures EKG and - (CT of the abdomen and pelvis/CT of the lumbar spine/CTA of the chest/chest x-ray) Summary of Care Provided Minutes Spent on Discharge: 38 Hospital Course: Mrs. Segura is a 79-year-old female who presents emergency department at [facility] on 08/14/2024 with a chief complaint of lower abdominalpain and back pain. She ambulates with a cane at baseline. And presented with frequent falls and abdominal pain as well as back pain. Her symptoms began a few days prior to presentation after she sustained a fall. She had x-rays that were unremarkable at that time. She also was complaining of some flank pain andabdominal fullness. She denied any bladder incontinence or urinary retention atthe time presentation. She had no fever chills, nausea or vomiting or specific upper abdominal pain. Vital signs on presentation showed a temperature of 97.5,heart rate 88, respiratory rate 19, blood pressure 134/68 and pulse ox was 92% on room air. She desatted to 80% on room air in the emergency department placedon 2 L nasal cannula with improvement to oxygen saturation 92%. CBC on presentation was unremarkable. Today she has a mild monocytosis at 11.6% but CBC remains unremarkable. Chemistry panel showed stable CKD stage IIIb with a serum creatinine of 1.27 but was otherwise unremarkable. BNP is normal. TSH was 5.55. UA was suggestive of dehydration and infection. Urine specific gravity was 1.025. She had positive nitrates and leuk esterase, white cells and3+ bacteria. Chest x-ray was unremarkable but with her hypoxia CTA of her chestwas performed and was overtly unremarkable. CT abdomen pelvis was also unremarkable for any acute findings. COVID/flu/RSV was unremarkable. Urine culture shows 2 gram-negative organisms whose colony counts are low but since patient was symptomatic we elected to treat. At the time of admission she was placed on ceftriaxone to cover her urine. She clinically is much improved so wewill continue Keflex at the time of discharge. She did temporarily require oxygen I suspect this was likely atelectatic related that she is improved with its benefit from a tree and no real treatment for her lungs other than ceftriaxone. She did not have symptoms consistent with a pneumonia and her imaging was not consistent with pneumonia. We did an amatory pulse ox prior to discharge and patient required no oxygen. I encouraged her to continue incentive spirometry and Acapella at the time of discharge. She was feeling much improved and anxious to go home. I have sent a prescription for Keflex to local pharmacy to complete a total of a 10-day course given the severity of her symptoms on presentation. I have asked her to follow-up with her primary care physician within the next week. Discharge diagnoses: Abdominal pain Uncomplicated UTI Transient hypoxia Essential hypertension Acute myofascial strain of the lumbosacral spine due to fall Hyperlipidemia Hypothyroidism Chronic venous insufficiency Mild cognitive impairment Asthma Overactive bladder GERD Osteoarthritis Depression Physical Exam Const alert, oriented x3, no apparent distress, no limitations, healthy appearing and well nourished; Negative for average body habitus Constitutional Narrative: Obese, elderly, white female, sitting up in a chair at the bedside, eating lunch, on room air and looks well, daughter at bedside General Appearance: cooperative, comfortable, well kempt and well developed Exam Limitations: no limitations Nutritional Appearance: obese HEENT normocephalic, head/scalp atraumatic, hearing grossly normal bilaterally and moist oral mucous membranes Eyes EOMs intact bilaterally and conjunctivae normal Eyes Narrative: No scleral icterus Neck supple Neck Narrative: Trachea midline Resp normal respiratory effort, no retractions, no use of accessory muscles and clearto auscultation bilaterally Cardio regular rate, regular rhythm, S1 normal heart sound, S2 normal heart sound, no murmurs, no rub, no gallops and no clicks GI normal to inspection, nondistended, normoactive bowel sounds, soft to palpation and non-tender Extremity no clubbing, cyanosis or edema Extremity Narrative: Pedal and radial pulses are 2+ Skin skin turgor normal, no jaundice, no petechiae and no mottling Skin Narrative: Few scattered ecchymosis from fall Neuro oriented x3, moves all extremities and no focal motor deficits Speech: speech normal Psych affect normal Psych Narrative: Extremely pleasant, eye contact is good and patient interacts appropriately Weight / BMI Weight Weight: 91.7 kg Body Mass Index (BMI) 35.8 ABG / Lab / Microbiology Data 08/15/24 06:36 08/15/24 06:36 Laboratory: Laboratory Results - last 24 hr 08/15/24 06:36: WBC 5.8, RBC 3.78 L, Hgb 11.4 L, Hct 35.5 L, MCV 93.9, MCH 30.2,MCHC 32.1, RDW Std Deviation 44.2 H, RDW Coeff of Dionne 13.0, Plt Count 263, MPV 9.6, Immature Gran % (Auto) 0.700, Neut % (Auto) 50.9, Lymph % (Auto) 33.0, [place]% (Auto) 10.0, Eos % (Auto) 4.5, Baso % (Auto) 0.9, Absolute Neuts (auto) 3.0, Absolute Lymphs (auto) 1.92, Nucleated RBC % 0, Sodium 136, Potassium 4.3, Chloride 104, Carbon Dioxide 18.5 L, Anion Gap 14, BUN 14, Creatinine 1.23 H, Estim Creat Clear Calc 38.58 L, Est GFR (MDRD) Non-Af 44 L, BUN/Creatinine Ratio 11.6, Glucose 88, Calcium 8.7, Phosphorus 4.1, Magnesium 2.2 Microbiology: Microbiology 08/13/24 20:40 Urine, Catheterized Urine Culture - Preliminary GNR lactose charger tester GNR lactose charger tester#2 08/14/24 08:34 Mucosa - Nasopharyngeal Respiratory Panel (PCR) - Final 08/13/24 21:37 Mucosa - Nose SARS-CoV-2, Influenza & RSV (PCR) - Final D/C Instructions Discharge Diet: No restrictions Discharge Activity: Return to Normal Activity DC O2, CPAP, BIPAP Needs Home O2 Discharge instructions: No Meaningful Use Info Meaningful Use Meaningful Use Diagnoses (Choose all that apply): None applicable Ischemic Stroke Statin Dosing Therapy Reference: STATIN DOSE THERAPY REFERENCE: * Patients > 75 years receive moderate or high dose statin therapy. * Patients 75 years or YOUNGER should receive HIGH intensity statin dose unless contraindicated. You will be required to document reason for non-treatment if statin daily dose does not meet guidelines. HIGH DOSE STATIN THERAPY DAILY Atorvastatin > than or = to 40 mg Rosuvastatin > than or = to 20 mg Amlodipine + Atorvastatin > than or = to 2.5/40 mg Ezetimibe + Simvastatin 10/80 mg Simvastatin 80mg Discharge Plan Admission Admit Date/Time: 08/14/24 01:06 Primary Reason for Your Visit: Abdominal pain Attending Provider: Charlee Hernandez Primary Care Provider: Dinah Melgar Consulting Providers: Jose Aj Instructions Additional Instructions / Restrictions: 1. Please continue to use your incentive spirometer and Acapella at least 3-4 times daily over the next 1 to 2 weeks 2. Encouraged ongoing mobility and ambulation 3. Please complete antibiotics as noted below Discharge Orders/Prescriptions Prescriptions: New cephalexin 500 mg capsule 500 mg PO BID Qty: 10 0RF Continued famotidine 40 mg Tablet 40 mg PO QHS pantoprazole 40 mg Granules For Susp In Packet 40 mg PO DAILY mirabegron [Myrbetriq] 50 mg Tablet Extended Release 24 Hr 50 mg PO DAILY ezetimibe 10 mg tablet 10 mg PO DAILY albuterol sulfate 90 mcg/actuation HFA aerosol inhaler 2 inh inhalation Q4H PRN (Reason: SOB,Wheezing) fluoxetine [Prozac] 20 mg capsule 20 mg PO DAILY Qty: 30 0RF carvedilol 6.25 mg Tablet 6.25 mg PO BIDCM Qty: 60 0RF acetaminophen 500 mg Tablet 1,000 mg PO Q8 Qty: 180 0RF levothyroxine 50 mcg Tablet 50 mcg PO DAILY@0600 Qty: 30 0RF ipratropium bromide 42 mcg (0.06 %) [place],Non-Aerosol 2 spray NASAL TID Qty: 1 0RF solifenacin 10 mg tablet 10 mg PO DAILY polyethylene glycol 3350 [Miralax] 17 gram/dose powder 17 g PO BID PRN (Reason: constipation) Referrals / Follow Up: Dinah Melgar MD [Primary Care Provider] - Within 2 Weeks Disposition Disposition (needs filled in before D/C Order can be placed): Home, Self Care Charges/Coding Visit Charges Inpatient E&M: 79850 Disch Hosp >30min 08/15/24 1302 <Electronically signed by Charlee Hernandez DO> Cosigner Signature (if applicable): CC: Dr. Charlee Hernandez DO; Dr. Dinah Melgar MD~ Signed [facility] Work Phone: [phone] 594-488804-09-2025 Consult note [facility] Medical Records Department [address] [place] [address] Counseling Note - Pharmacy 08/15/24 1348 MR#: [id number] Acct: [id number] Name: GEORGINA SEGURA Rep #:[id number] : 1945 79 From: Sonali Scott PCP: Dr. Dinah Melgar MD Status:ADM I N Y Location: [place] [address] [place] Med Reconciliation Pharmacy Service has performed discharge medication reconciliation for this patient. Medication education papers prepared, patient discharged when counseling was attempted. The patient's discharge medication list was reviewed for discrepancies and discrepancies were resolved. Medications at Discharge Home Medications famotidine 40 mg tablet 40 mg PO QHS GERD 06/11/22 mirabegron 50 mg tablet,extended release 24 hr (Myrbetriq) 50 mg PO DAILY OAB 06/11/22 pantoprazole 40 mg granules delayed-release for susp in packet 40 mg PO DAILY GERD 06/11/22 ezetimibe 10 mg tablet 10 mg PO DAILY cholestorol 03/28/23 albuterol sulfate 90 mcg/actuation aerosol inhaler 2 inh inhalation Q4H PRN SOB,Wheezing 08/23/23 acetaminophen 500 mg tablet 1,000 mg (2 x 500 mg) PO Q8 pain #180 tabs 09/07/23 carvedilol 6.25 mg tablet 6.25 mg PO BIDCM heart #60 tabs 09/07/23 fluoxetine 20 mg capsule (Prozac) 20 mg PO DAILY mood #30 caps 09/07/23 ipratropium bromide 42 mcg (0.06 %) nasal spray 2 spray NASAL TID #1 BOTTLE 09/07/23 levothyroxine 50 mcg tablet 50 mcg PO DAILY@0600 thyroid #30 tabs 09/07/23 solifenacin 10 mg tablet 10 mg PO DAILY bladder 08/12/24 polyethylene glycol 3350 17 gram/dose oral powder (Miralax) 17 g PO BID PRN constipation 08/13/24 cephalexin 500 mg capsule 500 mg PO BID #10 caps 08/15/24 08/15/24 1348 Date _ Sonali Salazar Signature (if applicable): Date CC: ~ Signed [facility]04-09-2025 Discharge summary [facility] Medical Records Department [address] [place] [address] Discharge Summary 08/15/24 1252 MR#: [id number] Acct: [id number] Name: GEORGINA SEGURA Rep #:[id number] : 1945 79 From: Charlee Hernandez DO PCP: Dr. Dinah Melgar MD Status:ADM I N Location: [facility] NL570-0 Providers Date of Admission: 08/14/24 Date of Discharge: 08/15/24 Primary Care Physician: Dr. Dinah Melgar MD Reason For Visit: UTI Diagnosis Discharge Diagnosis (1) Acute cystitis without hematuria: Status: Acute Code(s): N30.00 - Acute cystitis without hematuria (2) Acute myofascial strain of lumbosacral region: Status: Acute Code(s): S39.012A - Strain of muscle, fascia and tendon of lower back, initial encounter Qualifiers: Encounter type: initial encounter Qualified Code(s): S39.012A - Strain of muscle, fascia and tendonof lower back, initial encounter (3) Hypoxia: Status: Acute Code(s): R09.02 - Hypoxemia (4) Sleep apnea: Status: Chronic Code(s): G47.30 - Sleep apnea, unspecified Qualifiers: Sleep apnea type: obstructive Qualified Code(s): G47.33 - Obstructive sleep apnea (adult) (pediatric) (5) Obesity (BMI 30-39.9): Status: Acute Code(s): E66.9 - Obesity, unspecified Medications at Discharge Home Medications famotidine 40 mg tablet 40 mg PO QHS GERD 06/11/22 mirabegron 50 mg tablet,extended release 24 hr (Myrbetriq) 50 mg PO DAILY OAB 06/11/22 pantoprazole 40 mg granules delayed-release for susp in packet 40 mg PO DAILY GERD 06/11/22 ezetimibe 10 mg tablet 10 mg PO DAILY cholestorol 03/28/23 albuterol sulfate 90 mcg/actuation aerosol inhaler 2 inh inhalation Q4H PRN SOB,Wheezing 08/23/23 acetaminophen 500 mg tablet 1,000 mg (2 x 500 mg) PO Q8 pain #180 tabs 09/07/23 carvedilol 6.25 mg tablet 6.25 mg PO BIDCM heart #60 tabs 09/07/23 fluoxetine 20 mg capsule (Prozac) 20 mg PO DAILY mood #30 caps 09/07/23 ipratropium bromide 42 mcg (0.06 %) nasal spray 2 spray NASAL TID #1 BOTTLE 09/07/23 levothyroxine 50 mcg tablet 50 mcg PO DAILY@0600 thyroid #30 tabs 09/07/23 solifenacin 10 mg tablet 10 mg PO DAILY bladder 08/12/24 polyethylene glycol 3350 17 gram/dose oral powder (Miralax) 17 g PO BID PRN constipation 08/13/24 cephalexin 500 mg capsule 500 mg PO BID #10 caps 08/15/24 Hospital Course Operations None Procedures EKG and - (CT of the abdomen and pelvis/CT of the lumbar spine/CTA of the chest/chest x-ray) Summary of Care Provided Minutes Spent on Discharge: 38 Hospital Course: Mrs. Segura is a 79-year-old female who presents emergency department at [facility] on 08/14/2024 with a chief complaint of lower abdominalpain and back pain. She ambulates with a caneat baseline. And presented with frequent falls and abdominal pain as well as back pain. Her symptoms began a few days prior to presentation after she sustained a fall. She had x-rays that were unremarkable at that time. She also was complaining of some flank pain andabdominal fullness. She denied any bladder incontinence or urinary retention atthe time presentation. She had no fever chills, nausea or vomiting or specific upper abdominal pain. Vital signs on presentation showed a temperature of 9 7.5,heart rate 88, respiratory rate 19, blood pressure 134/68 and pulse ox was 92% on room air. Shedesatted to 80% on room air in the emergency department placedon 2 L nasal cannula with improvementto oxygen saturation 92%. CBC on presentation was unremarkable. Today she has a mild monocytosis at11.6% but CBC remains unremarkable. Chemistry panel showed stable CKD stage IIIb with a serum creatinine of 1.27 but was otherwise unremarkable. BNP is normal. TSH was 5.55. UA was suggestive of dehydration and infection. Urine specific gravity was 1.025. She had positive nitrates and leuk esterase, white cells and3+ bacteria. Chest x-ray was unremarkable but with her hypoxia CTA of her chestwas performed and was overtly unremarkable. CT abdomen pelvis was also unremarkable for any acute findings. COVID/flu/RSV was unremarkable. Urine culture shows 2 gram- negative organisms whose colony counts are low but since patient was symptomatic we elected to treat. At the time of admission she was placed on ceftriaxone to cover her urine. She clinically is much improved so wewill continue Keflex atthe time of discharge. She did temporarily require oxygen I suspect this was likely atelectatic related that she is improved with its benefit from a tree and no real treatment for her lungs other than ceftriaxone. She did not have symptoms consistent with a pneumonia and her imaging was not consistent with pneumonia. We did an amatory pulse ox prior to discharge and patient required no oxygen. I encouraged her to continue incentive spirometry and Acapella at the time of discharge. She was feeling much improved and anxious to go home. I have sent a prescription for Keflex to local pharmacy to complete a total of a 10-day course given the severity of her symptoms on presentation. I have askedher to follow-up with her primary care physician within the next week. Discharge diagnoses: Abdominal pain Uncomplicated UTI Transient hypoxia Essential hypertension Acute myofascial strain of the lumbosacral spine due to fall Hyperlipidemia Hypothyroidism Chronic venous insufficiency Mild cognitive impairment Asthma Overactive bladder GERD Osteoarthritis Depression Physical Exam Const alert, oriented x3, no apparent distress, no limitations, healthy appearing and well nourished; Negative for average body habitus Constitutional Narrative: Obese, elderly, white female, sitting up in a chair at the bedside, eating lunch, on room air and looks well, daughter at bedside General Appearance: cooperative, comfortable, well kempt and well developed Exam Limitations: no limitations Nutritional Appearance: obese HEENT normocephalic, head/scalp atraumatic, hearing grossly normal bilaterally and moist oral mucous membranes Eyes EOMs intact bilaterally and conjunctivae normal Eyes Narrative: No scleral icterus Neck supple Neck Narrative: Trachea midline Resp normal respiratory effort, no retractions, no use of accessory muscles and clearto auscultation bilaterally Cardio regular rate, regular rhythm, S1 normal heart sound, S2 normal heart sound, no murmurs, no rub, no gallops and no clicks GI normal to inspection, nondistended, normoactive bowel sounds, soft to palpation and non-tender Extremity no clubbing, cyanosis or edema Extremity Narrative: Pedal and radial pulses are 2+ Skin skin turgor normal, no jaundice, no petechiae and no mottling Skin Narrative: Few scattered ecchymosis from fall Neuro oriented x3, moves all extremities and no focal motor deficits Speech: speech normal Psych affect normal Psych Narrative: Extremely pleasant, eye contact is good and patient interacts appropriately Weight / BMI Weight Weight: 91.7 kg Body Mass Index (BMI) 35.8 ABG / Lab / Microbiology Data 08/15/24 06:36 08/15/24 06:36 Laboratory: Laboratory Results - last 24 hr 08/15/24 06:36: WBC 5.8, RBC 3.78 L, Hgb 11.4 L, Hct 35.5 L, MCV 93.9, MCH 30.2,MCHC 32.1, RDW Std Deviation 44.2 H, RDW Coeff of Dionne 13.0, Plt Count 263, MPV 9.6, Immature Gran % (Auto) 0.700, Neut % (Auto) 50.9, Lymph % (Auto) 33.0, [place]% (Auto) 10.0, Eos % (Auto) 4.5, Baso % (Auto) 0.9, AbsoluteNeuts (auto) 3.0, Absolute Lymphs (auto) 1.92, Nucleated RBC % 0, Sodium 136, Potassium 4.3, Chloride 104, Carbon Dioxide 18.5 L, Anion Gap 14, BUN 14, Creatinine 1.23 H, Estim Creat Clear Calc 38.58L, Est GFR (MDRD) Non-Af 44 L, BUN/Creatinine Ratio 11.6, Glucose 88, Calcium 8.7, Phosphorus 4.1, Magnesium 2.2 Microbiology: Microbiology 08/13/24 20:40 Urine, Catheterized Urine Culture - Preliminary GNR lactose charger tester GNR lactose charger tester#2 08/14/24 08:34 Mucosa - Nasopharyngeal Respiratory Panel (PCR) - Final 08/13/24 21:37 Mucosa - Nose SARS-CoV-2, Influenza & RSV (PCR) - Final D/C Instructions Discharge Diet: No restrictions Discharge Activity: Return to Normal Activity DC O2, CPAP, BIPAP Needs Home O2 Discharge instructions: No Meaningful Use Info Meaningful Use Meaningful Use Diagnoses (Choose all that apply): None applicable Ischemic Stroke Statin Dosing Therapy Reference: STATIN DOSE THERAPY REFERENCE: * Patients > 75 years receive moderate or high dose statin therapy. * Patients 75 years or YOUNGER should receive HIGH intensity statin dose unless contraindicated. You will be required to document reason for non-treatment if statin daily dose does not meet guidelines. HIGH DOSE STATIN THERAPY DAILY Atorvastatin > than or = to 40 mg Rosuvastatin > than or = to 20 mg Amlodipine + Atorvastatin > than or = to 2.5/40 mg Ezetimibe + Simvastatin 10/80 mg Simvastatin 80mg Discharge Plan Admission Admit Date/Time: 08/14/24 01:06 Primary Reason for Your Visit: Abdominal pain Attending Provider: Charlee Hernandez Primary Care Provider: Dinah Melgar Consulting Providers: Jose Aj Instructions Additional Instructions / Restrictions: 1. Please continue to use your incentive spirometer and Acapella at least 3-4 times daily over the next 1 to 2 weeks 2. Encouraged ongoing mobility and ambulation 3. Please complete antibiotics as noted below Discharge Orders/Prescriptions Prescriptions: New cephalexin 500 mg capsule 500 mg PO BID Qty: 10 0RF Continued famotidine 40 mg Tablet 40 mg PO QHS pantoprazole [address] For Susp In Packet 40 mg PO DAILY mirabegron [Myrbetriq] 50 mg Tablet Extended Release 24 Hr 50 mg PO DAILY ezetimibe 10 mg tablet 10 mg PO DAILY albuterol sulfate 90 mcg/actuation HFA aerosol inhaler 2 inh inhalation Q4H PRN (Reason: SOB,Wheezing) fluoxetine [Prozac] 20 mg capsule 20 mg PO DAILY Qty: 30 0RF carvedilol 6.25 mg Tablet 6.25 mg PO BIDCM Qty: 60 0RF acetaminophen 500 mg Tablet 1,000 mg PO Q8 Qty: 180 0RF levothyroxine 50 mcg Tablet 50 mcg PO DAILY@0600 Qty: 30 0RF ipratropium bromide 42 mcg (0.06 %) [place],Non-Aerosol 2 spray NASAL TID Qty: 1 0RF solifenacin 10 mg tablet 10 mg PO DAILY polyethylene glycol 3350 [Miralax] 17 gram/dose powder 17 g PO BID PRN (Reason: constipation) Referrals / Follow Up: Dinah Melgar MD [Primary Care Provider] - Within 2 Weeks Disposition Disposition (needs filled in before D/C Order can be placed): Home, Self Care Charges/Coding Visit Charges Inpatient E&M: 96951 Disch Hosp >30min 08/15/24 1302 Cosigner Signature (if applicable): CC: Dr. Charlee Hernandez DO; Dr. Dinah Melgar MD~ Signed [facility]04-09-2025 [facility] Medical Records Department [address] [place] [id number] Discharge Summary 08/15/24 1252 MR#: [id number] Acct: [id number] Name: GEORGINA SEGURA Rep #: [id number] : 1945 79 From: Charlee Hernandez DO PCP: Dr. Dinah Melgar MD Status:ADM IN Location: [place] [address] Providers Date of Admission: 08/14/24 Date of Discharge: 08/15/24 Primary Care Physician: Dr. Dinah Melgar MD Reason For Visit: UTI Diagnosis Discharge Diagnosis (1) Acute cystitis without hematuria: Status: Acute Code(s): N30.00 - Acute cystitis without hematuria (2) Acute myofascial strain of lumbosacral region: Status: Acute Code(s): S39.012A - Strain of muscle, fascia and tendon of lower back, initial encounter Qualifiers: Encounter type: initial encounter Qualified Code(s): S39.012A - Strain of muscle, fascia and tendon of lower back, initial encounter (3) Hypoxia: Status: Acute Code(s): R09.02 - Hypoxemia (4) Sleep apnea: Status: Chronic Code(s): G47.30 - Sleep apnea, unspecified Qualifiers: Sleep apnea type: obstructive Qualified Code(s): G47.33 - Obstructive sleep apnea (adult) (pediatric) (5) Obesity (BMI 30-39.9): Status: Acute Code(s): E66.9 - Obesity, unspecified Medications at Discharge Home Medications famotidine 40 mg tablet 40 mg PO QHS GERD 06/11/22 mirabegron 50 mg tablet,extended release 24 hr (Myrbetriq) 50 mg PO DAILY OAB 06/11/22 pantoprazole 40 mg granules delayed-release for susp in packet 40 mg PO DAILY GERD 06/11/22 ezetimibe 10 mg tablet 10 mg PO DAILY cholestorol 03/28/23 albuterol sulfate 90 mcg/actuation aerosol inhaler 2 inh inhalation Q4H PRN SOB,Wheezing 08/23/23 acetaminophen 500 mg tablet 1,000 mg (2 x 500 mg) PO Q8 pain #180 tabs 09/07/23 carvedilol 6.25 mg tablet 6.25 mg PO BIDCM heart #60 tabs 09/07/23 fluoxetine 20 mg capsule (Prozac) 20 mg PO DAILY mood #30 caps 09/07/23 ipratropium bromide 42 mcg (0.06 %) nasal spray 2 spray NASAL TID #1 BOTTLE 09/07/23 levothyroxine 50 mcg tablet 50 mcg PO DAILY@0600 thyroid #30 tabs 09/07/23 solifenacin 10 mg tablet 10 mg PO DAILY bladder 08/12/24 polyethylene glycol 3350 17 gram/dose oral powder (Miralax) 17 g PO BID PRN constipation 08/13/24 cephalexin 500 mg capsule 500 mg PO BID #10 caps 08/15/24 Hospital Course Operations None Procedures EKG and - (CT of the abdomen and pelvis/CT of the lumbar spine/CTA of the chest/chest x-ray) Summary of Care Provided Minutes Spent on Discharge: 38 Hospital Course: Mrs. Segura is a 79-year-old female who presents emergency department at [facility] on 08/14/2024 with a chief complaint of lower abdominal pain and back pain. She ambulates with a cane at baseline. And presented with frequent falls and abdominal pain as well as back pain. Her symptoms began a few days prior to presentation after she sustained a fall. She had x-rays that were unremarkable at that time. She also was complaining of some flank pain and abdominal fullness. She denied any bladder incontinence or urinary retention at the time presentation. She had no fever chills, nausea or vomiting or specific upper abdominal pain. Vital signs on presentation showed a temperature of 97.5, heart rate 88, respiratory rate 19, blood pressure 134/68 and pulse ox was 92% on room air. She desatted to 80% on room air in the emergency department placed on 2 L nasal cannula with improvement to oxygen saturation 92%. CBC on presentation was unremarkable. Today she has a mild monocytosis at 11.6% but CBC remains unremarkable. Chemistry panel showed stable CKD stage IIIb with a serum creatinine of 1.27 but was otherwise unremarkable. BNP is normal. TSH was 5.55. UA was suggestive of dehydration and infection. Urine specific gravity was 1.025. She had positive nitrates and leuk esterase, white cells and 3+ bacteria. Chest x-ray was unremarkable but with her hypoxia CTA of her chest was performed and was overtly unremarkable. CT abdomen pelvis was also unremarkable for any acute findings. COVID/flu/RSV was unremarkable. Urine culture shows 2 gram-negative organisms whose colony counts are low but since patient was symptomatic we elected to treat. At the time of admission she was placed on ceftriaxone to cover her urine. She clinically is much improved so we will continue Keflex at the time of discharge. She did temporarily require oxygen I suspect this was likely atelectatic related that she is improved with its benefit from a tree and no real treatment for her lungs other than ceftriaxone. She did not have symptoms consistent with a pneumonia and her imaging was not consistent with pneumonia. We did an amatory pulse ox prior to discharge and patient required no oxygen. I encouraged her to continue incentive spirometry and Acapella at the time of discharge. She was feeling much improved and anxious to go home. I have sent a p (more content not included)...[facility]04-08-2025 Progress note Author Charlee Hernandez [facility] Note Date/Time August 14, 2024 5:[address] [facility] Medical Records Department [address] [place] [address] Progress Note - Hospitalist 08/14/24 0816 MR#: [id number] Acct: [id number] Name: GEORGINA SEGURA Rep #:[id number] : 1945 79 From: Charlee Hernandez DO PCP: Dr. Dinah Melgar MD Status:ADM I N Location: [place] [address] Hospitalist Note Mrs. Segura is a 79-year-old female who presents emergency department at [facility] on 08/14/2024 with a chief complaint of lower abdominalpain and back pain. She ambulates with a cane at baseline. And presented with frequent falls and abdominal pain as well as back pain. Her symptoms began a few days prior to presentation after she sustained a fall. She had x-rays that were unremarkable at that time. She also was complaining of some flank pain andabdominal fullness. She denied any bladder incontinence or urinary retention atthe time presentation. She had no fever chills, nausea or vomiting or specific upper abdominal pain. Vital signs on presentation showed a temperature of 97.5,heart rate 88, respiratory rate 19, blood pressure 134/68 and pulse ox was 92% on room air. She desatted to 80% on room air in the emergency department placedon 2 L nasal cannula with improvement to oxygen saturation 92%. CBC on presentation was unremarkable. Today she has a mild monocytosis at 11.6% but CBC remains unremarkable. Chemistry panel showed stable CKD stage IIIb with a serum creatinine of 1.27 but was otherwise unremarkable. BNP is normal. TSH was 5.55. UA was suggestive of dehydration and infection. Urine specific gravity was 1.025. She had positive nitrates and leuk esterase, white cells and3+ bacteria. Chest x-ray was unremarkable but with her hypoxia CTA of her chestwas performed and was overtly unremarkable. CT abdomen pelvis was also unremarkable for any acute findings. COVID/flu/RSV was unremarkable. Urine culture was sent and is currently pending. She does remain on 2 L nasal cannula with a sat of 94%. She is on incentive spirometry and I added Acapella therapy. She is on ceftriaxone for suspected urinary tract infection with pending culture. Will target antibiotics to cultures as culture results. Check respiratory viral panel given hypoxia. Patient does have respiratory history and has diagnosis of sleep apnea with an AHI of 60.9. She does utilize PAP therapy at bedtime. Per last report in the pulmonary office she is extremely compliant with her mask. Settings 8 cm of water. At baseline she is on room air and sats appear to be in the low 90s. I do anticipate patient may be able to be discharged tomorrow. Will check ambulatory pulse ox prior to discharge. Continue current therapy. She is a never smoker so we will just continue with albuterol and DuoNebs. 08/14/24 1707 <Electronically signed by Charlee Hernandez DO> Cosigner Signature (if applicable): CC: ~ Signed [facility] Work Phone: [phone] 373-613704-08-2025 Progress note [facility] Medical Records Department [address] [place] [address] Progress Note - Hospitalist 08/14/24815 MR#: [id number] Acct: [id number] Name: GEORGIAN SEGURA Rep #:[id number] : 1945 79 From: Charlee Hernandez DO PCP: Dr. Dinah Melgar MD Status:ADM I N Location: [facility] [id number] Hospitalist Note Mrs. Segura is a 79-year-old female who presents emergency department at [facility] on 08/14/2024 with a chief complaint of lower abdominalpain and back pain. She ambulates with a caneat baseline. And presented with frequent falls and abdominal pain as well as back pain. Her symptoms began a few days prior to presentation after she sustained a fall. She had x-rays that were unremarkable at that time. She also was complaining of some flank pain andabdominal fullness. She denied any bladder incontinence or urinary retention atthe time presentation. She had no fever chills, nausea or vomiting or specific upper abdominal pain. Vital signs on presentation showed a temperature of 9 7.5,heart rate 88, respiratory rate 19, blood pressure 134/68 and pulse ox was 92% on room air. Shedesatted to 80% on room air in the emergency department placedon 2 L nasal cannula with improvementto oxygen saturation 92%. CBC on presentation was unremarkable. Today she has a mild monocytosis at11.6% but CBC remains unremarkable. Chemistry panel showed stable CKD stage IIIb with a serum creatinine of 1.27 but was otherwise unremarkable. BNP is normal. TSH was 5.55. UA was suggestive of dehydration and infection. Urine specific gravity was 1.025. She had positive nitrates and leuk esterase, white cells and3+ bacteria. Chest x-ray was unremarkable but with her hypoxia CTA of her chestwas performed and was overtly unremarkable. CT abdomen pelvis was also unremarkable for any acute findings. COVID/flu/RSV was unremarkable. Urine culture was sent and is currently pending. She does remain on 2 L nasal cannula with a sat of 94%. She is on incentive spirometry and I added Acapella therapy. She is on ceftriaxone for suspected urinary tract infection with pending culture. Will target antibiotics to cultures as culture results. Check respiratory viral panel given hypoxia.Patient does have respiratory history and has diagnosis of sleep apnea with an AHI of 60.9. She does utilize PAP therapy at bedtime. Per last report in the pulmonary office she is extremely compliantwith her mask. Settings 8 cm of water. At baseline she is on room air and sats appear to be in the low 90s. I do anticipate patient may be able to be discharged tomorrow. Will check ambulatory pulse ox prior to discharge. Continue current therapy. She is a never smoker so we will just continue withalbuterol and DuoNebs. 08/14/24 1707 Cosigner Signature (if applicable): CC: ~ Signed [facility]04-08-2025 History and physical note Author Jose Yepez [facility] Note Date/Time August 14, 2024 6:[address] [facility] Medical Records Department [address] [place] [address] H&P Exam - Hospitalist 08/14/24 0050 MR#: [id number] Acct: [id number] Name: GEORGINA SEGURA Rep #:[id number] : 1945 79 From: Jose Dougherty DO PCP: Dr. Dinah Melgar MD Status:ADM I N Location: [facility] [id number] HPI - General General Date of Admission: 08/14/24 Date of Service: 08/14/24 Chief Complaint: Lower Abdominal Pain and Back Pain. HPI Narrative GEORGINA SEGURA, is a 79 F with a past medical history of essential hypertension; on carvedilol, hyperlipidemia; on ezetimibe, hypothyroidism; on levothyroxine, obesity; with BMI of 35.3 this admission, NAYA; noncompliant with CPAP, chronic venous insufficiency, history of dementia, history of asthma; on as needed albuterol, history of overactive/neurogenic bladder; s/p bladder surgery on mirabegron and Solifenacin, depression; on fluoxetine, history of Hemoccult positive stool, history of appendectomy, history of cholecystectomy, GERD; on pantoprazole and famotidine nightly, history of constipation; on as needed polyethylene glycol and OA; with history of lateral meniscus repair of the Rightknee and chronic back pain with patient ambulating with cane at baseline with frequent falls who presents to [facility] ER complaining of lower abdominal pain and back pain. Ms. Segura reports her symptoms began a few days ago after recent fall for which she received an x-ray that was negativefor acute pathologic changes. She also noted flank pain and abdominal fullness but she denied bladder incontinence or urinary retention. There was no report of associated fever, chills, nausea, vomiting, abdominal pain, chest pain or headache. In the ER she was noted to have a UA positive for Acute Cystitis; without hematuria complicated by hypoxia with activity likely due to OHS with a CTA of the chest with and without IV contrast that revealed no evidence of pulmonary emboli with patent central airways and patchy opacity within the lingula and bilateral lower lobes likely presenting scarring or atelectasis withdependent left basilar atelectasis and questionable trace Left pleural effusion. She was then admitted to the general medical floor for ongoing care for a stay that is expected to extend beyond 2 midnights. [facility] Medical History NAYA (obstructive sleep apnea) Noncompliance with CPAP treatment Venous insufficiency (chronic) (peripheral) Dementia Dehydration Neurogenic bladder Frequent falls Glucose intolerance (impaired glucose tolerance) Loss of hearing Post-menopausal Ambulates with cane Arthritis Back pain Injury of head and neck Asthma CPAP (continuous positive airway pressure) dependence History of pain when walking Wears glasses Depression Overactive bladder High cholesterol Easy bruising Non-smoker PONV (postoperative nausea and vomiting) GERD (gastroesophageal reflux disease) Hypothyroid Home Medications ?Medication ?Instructions ?Recorded ?Last Taken ?Type famotidine 40 mg tablet 40 mg PO QHS GERD 06/11/22 U nknown History mirabegron 50 mg tablet,extended 50 mg PO DAILY OAB Unknown History release 24 hr (Myrbetriq) pantoprazole 40 mg granules 40 mg PO DAILY GERD 08/23/23 History delayed-release for susp in packet ezetimibe 10 mg tablet 10 mg PO DAILY cholestorol 1 05/28/22 08/23/23 History albuterol sulfate 90 mcg/actuation 2 inh inhalation Q4 H PRN 08/23/23 Unknown History aerosol inhaler SOB,Wheezing acetaminophen 500 mg tablet 1,000 mg (2 x 500 mg) PO Q 8 #180 09/07/23 Unknown Rx tabs carvedilol 6.25 mg tablet 6.25 mg PO BIDCM #60 tabs Unknown Rx fluoxetine 20 mg capsule (Prozac) 20 mg PO DAILY #30 c aps 09/07/23 Unknown Rx ipratropium bromide 42 mcg (0.06 2 spray NASAL TID #1 BOTTLE 09/07/23 Unknown Rx %) nasal spray levothyroxine 50 mcg tablet 50 mcg PO DAILY@0600 #30 t abs 09/07/23 Unknown Rx solifenacin 10 mg tablet 10 mg PO DAILY 08/12/24 Unkn own History polyethylene glycol 3350 17 17 g PO BID PRN constipati on 08/13/24 Unknown History gram/dose oral powder (Miralax) Allergy/AdvReac Type Severity Reaction Status Date / Time rofecoxib (From Vioxx) Allergy Unknown Verified 08/13/24 18:49 Surgical History Hx of surgical biopsy History of bladder surgery History of partial hysterectomy History of appendectomy History of cholecystectomy H/O lateral meniscus repair of right knee Social History housing: house Smoking Status: Never smoker second hand exposure: Yes substance use type: does not use ROS ROS Narrative Review of Systems: Constitutional: Patient denies fever or chills. Eyes: Patient denies change in vision or discharge from eyes. ENT: Patient denies runny nose, sore throat or ear pain. Resp: Patient denies shortness of breath or cough. CV: Patient denies chest pain, palpitations, heart racing or new lower extremityedema. GI: Patient denies abdominal pain, nausea, vomiting, diarrhea or constipation. : Patient denies bladder incontinence, urinary retention or hematuria. MSK: Patient admits to back pain after recent fall as per HPI. Skin: Patient denies rash, abscess, wounds or jaundice. Psych: Patient denies of uncontrolled depression or anxiety. Neuro: Patient denies headache, paresthesias or focal neurologic deficits. Allergy: Patient denies lip swelling, tongue swelling or urticaria. Hematology: Patient denies easy bleeding or easy bruisability. Endocrinology: Patient denies polyuria, polydipsia, polyphagia or heat/cold intolerance. 14 point ROS otherwise negative except for positives noted above in HPI. Vital Signs Vital Signs Vital Signs: 08/13/24 18:49 08/13/24 20:43 08/13/24 20:43 Temperature 97.5 F L Temperature Source Temporal Pulse Rate 88 Respiratory Rate 19 H Blood Pressure 134/68 H Blood Pressure Mean 90 Pulse Ox 92 80 92 Oxygen Delivery Method Room Air Room Air Nasal Cannula Oxygen Flow Rate (L/min) 2 08/13/24 22:45 08/13/24 23:47 08/14/24 00:37 Temperature 98.5 F Temperature Source Pulse Rate 88 85 88 Respiratory Rate 18 22 H 13 Blood Pressure 120/63 148/78 H 140/70 H Blood Pressure Mean 82 101 93 Pulse Ox 96 96 95 Oxygen Delivery Method Nasal Cannula Nasal Cannula Oxygen Flow Rate (L/min) 2 2 Weight Weight: 199 lb 8.293 oz Body Mass Index (BMI) 35.3 Physical Exam Const alert, oriented x3 and no apparent distress Constitutional Narrative: Obese. General Appearance: cooperative HEENT normocephalic, head/scalp atraumatic, hearing grossly normal bilaterally and moist oral mucous membranes Eyes PERRL and EOMs intact bilaterally Neck no lymphadenopathy and supple Resp normal respiratory effort, no retractions, no use of accessory muscles and clearto auscultation bilaterally Cardio regular rate and regular rhythm GI normal to inspection, nondistended, normoactive bowel sounds, soft to palpation,non-tender and non-distended Extremity normal to inspection, full ROM and no clubbing, cyanosis or edema Skin Skin Narrative: Patient denies rash, abscess, wounds or jaundice. Neuro oriented x3, CN's II-XII intact bilaterally, moves all extremities and no focal motor deficits Sensorium / Orientation: awake, alert, oriented to person, oriented to place andoriented to time Speech: speech normal Psych affect normal Results Medical Records Data Attestation: I reviewed the patient's medical records Lab / Micro Data Attestation: I reviewed the patient's lab results. 08/13/24 21:37 08/13/24 21:37 Labs: Laboratory Results - last 24 hr 08/13/24 20:40: Urine Color Yellow, Urine Clarity Sl. Cloudy, Urine pH 5.0, Ur Specific [place] 1.025, Urine Protein 30 H, Urine Glucose (UA) Normal, Urine Ketones 5 H, Urine Occult Blood 10 H, Urine Nitrite Positive H, Urine Bilirubin Negative, Urine Urobilinogen Normal, Ur Leukocyte Esterase 500 H, Urine RBC 0-5 SEEN, Urine WBC 25-50 SEEN, Ur Squamous Epith Cells 0 SEEN, Urine Bacteria 3+, Urine Mucus 0 SEEN 08/13/24 21:37: WBC 8.9, RBC 4.25, Hgb 13.0, Hct 39.0, MCV 91.8, MCH 30.6, MCHC 33.3, RDW Std Deviation 42.6, RDW Coeff of Dionne 12.9, Plt Count 270, MPV 9.4, Sodium 136, Potassium 3.9, Chloride 102, Carbon Dioxide 21.7, Anion Gap 12, BUN 21 H, Creatinine 1.27 H, Estim Creat Clear Calc 37.10 L, Est GFR (MDRD) Non-Af 42 L, BUN/Creatinine Ratio 16.7, Glucose 123 H, Calcium 8.8, Total Bilirubin 0.25, AST 21, ALT 10, Alkaline Phosphatase 100, Troponin T High Sens 22 H, NT pro BNP II 236, Total Protein 6.4, Albumin 4.0, Globulin 2.4, Albumin/Globulin Ratio 1.6 Micro: Microbiology 08/13/24 21:37 Mucosa - Nose SARS-CoV-2, Influenza & RSV (PCR) - Final Imaging Radiology Impression Abdomen/Pelvis CT 08/13/24 21:28 IMPRESSION: No acute findings in the abdomen and pelvis. Reading Location: [facility] Lumbar Spine CT 08/13/24 21:28 IMPRESSION: No acute fracture or traumatic subluxation. Degenerative changes, most prominent at L3-L4. Reading Location: [facility] Chest X-Ray 08/13/24 21:48 IMPRESSION: No Acute Findings. Reading Location: [facility] Chest CTA 08/13/24 23:08 IMPRESSION: No evidence of a pulmonary emboli up to the segmental arterial branches. More peripheral vessels are not well assessed. Reading Location: [facility] Assessment & Plan Assessment/Plan (1) Acute cystitis without hematuria: (2) Acute myofascial strain of lumbosacral region: QUALIFIERS: Encounter type: initial encounter Qualified Code(s): S39.012A - Strain of muscle, fascia and tendon of lower back, initial encounter (3) Hypoxia: (4) Sleep apnea: QUALIFIERS: Sleep apnea type: obstructive Qualified Code(s): G47.33 - Obstructive sleep apnea (adult) (pediatric) (5) Obesity (BMI 30-39.9): PLAN: Plan 1. UA positive for Acute Cystitis; without hematuria - Admit to general medicalfloor. Continue empiric IV ceftriaxone begun in the ER and await culture and sensitivity data. Give acetaminophen as needed for [id number] (level 1-5/10) pain or fever. Give morphine IV as needed for severe (level 6-10/10) pain. 2. Acute myofascial strain of lumbosacral region after recent fall complicating#1 - Give pain regimen as outlined in #1. Finally, PT/OT and case management consult and treat on rounds in the a.m. for further recommendations with help appreciated in advance. 3. Obesity; with BMI of 35.1 this admission plus patient noncompliant with CPAPnoted to have Hypoxia with activity likely due to OHS compounding #1 & #2 - Patient will need to be tested to see if she requires home oxygen. She will be encouraged to use CPAP. Weight loss will be recommended. Check TSH. This complicates her case and may hamper recovery. 4. Essential hypertension; on carvedilol - Maintain current regimen. 5. Hyperlipidemia; on ezetimibe - Continue ezetimibe and check lipid profile this admission. 6. Hypothyroidism; on levothyroxine - Resume levothyroxine as previous and check TSH. 7. History of chronic venous insufficiency - Noted with no signs of edema on admission. 8. History of dementia - Stable. 9. History of asthma; on as needed albuterol - Stable with no evidence of acuteflare at this time. Continue as needed albuterol inhaler. 10. History of overactive/neurogenic bladder; s/p bladder surgery on mirabegronand Solifenacin - Resume current therapy. 11. Depression; on fluoxetine - Maintain current fluoxetine dose and schedule. 12. History of Hemoccult positive stool - Noted with no evidence of active bleeding at this time. 13. History of appendectomy - Noted. 14. History of cholecystectomy - Noted. 15. GERD; on pantoprazole and famotidine nightly - Continue current treatment. 16. History of constipation; on as needed polyethylene glycol - Stable. 17. OA; with history of lateral meniscus repair of the Right knee and chronic back pain with patient ambulating with cane at baseline with frequent falls - Stable. 18. DVT prophylaxis - Lovenox 40 mg sq daily plus SCDs. Total time: Approximately (but not less than) 55 minutes. Charges/Coding Visit Charges Inpatient E&M: 00963 Init Hosp L2 08/14/24 0656 <Electronically signed by Jose Aj DO> Cosigner Signature (if applicable): CC: Dr. Jose Aj DO; Dr. Dinah Melgar MD~ Signed [facility] Work Phone: [phone]) 702-328104-08-[address] [facility] Medical Records Department [address] [place] [address] H&P Exam - Hospitalist 08/14/24 0050 MR#: [id number] Acct: [id number] Name: GEORGINA SEGURA Rep #:[id number] : 1945 79 From: Jose Dougherty DO PCP: Dr. Dinah Melgar MD Status:ADM I N Location: [facility] IT825-6 [facility] General Date of Admission: 08/14/24 Date of Service: 08/14/24 Chief Complaint: Lower Abdominal Pain and Back Pain. HPI Narrative GEORGINA SEGURA, is a 79 F with a past medical history of essential hypertension; on carvedilol, hyperlipidemia; on ezetimibe, hypothyroidism; on levothyroxine, obesity; with BMI of 35.3 this admission, NAYA; noncompliant with CPAP, chronic venous insufficiency, history of dementia, history of asthma;on as needed albuterol, history of overactive/neurogenic bladder; s/p bladder surgery on mirabegronand Solifenacin, depression; on fluoxetine, history of Hemoccult positive stool, history of appendectomy, history of cholecystectomy, GERD; on pantoprazole and famotidine nightly, history of constipation; on as needed polyethylene glycol and OA; with history of lateral meniscus repair of the Rightknee and chronic back pain with patient ambulating with cane at baseline with frequent falls who presents to [facility] ER complaining of lower abdominal pain and back pain. Ms. Larryeports her symptoms began a few days ago after recent fall for which she received an x-ray that was negativefor acute pathologic changes. She also noted flank pain and abdominal fullness but she denied bladder incontinence or urinary retention. There was no report of associated fever, chills, nausea, vomiting, abdominal pain, chest pain or headache. In the ER she was noted to have a UA positive for Acute Cystitis; without hematuria complicated by hypoxia with activity likely due to OHS with a CTA of the chest with and without IV contrast that revealed no evidence of pulmonary emboli with patent central airways and patchy opacity within the lingula and bilateral lower lobes likely presenting scarring or atelectasis withdependent left basilar atelectasis and questionable trace Left pleural effusion. She was then admitted to the general medical floor for ongoing care for a stay that is expected to extend beyond 2 midnights. [facility] Medical History NAYA (obstructive sleep apnea) Noncompliance with CPAP treatment Venous insufficiency (chronic) (peripheral) Dementia Dehydration Neurogenic bladder Frequent falls Glucose intolerance (impaired glucose tolerance) Loss of hearing Post-menopausal Ambulates with cane Arthritis Back pain Injury of head and neck Asthma CPAP (continuous positive airway pressure) dependence History of pain when walking Wears glasses Depression Overactive bladder High cholesterol Easy bruising Non-smoker PONV (postoperative nausea and vomiting) GERD (gastroesophageal reflux disease) Hypothyroid Home Medications ?Medication ?Instructions ?Recorded ?Last Taken ?Type famotidine 40 mg tablet 40 mg PO QHS GERD 06/11/22 U nknown History mirabegron 50 mg tablet,extended 50 mg PO DAILY OAB Unknown History release 24 hr (Myrbetriq) pantoprazole 40 mg granules 40 mg PO DAILY GERD 08/23/23 History delayed-release for susp in packet ezetimibe 10 mg tablet 10 mg PO DAILY cholestorol 1 05/28/22 08/23/23 History albuterol sulfate 90 mcg/actuation 2 inh inhalation Q4 H PRN 08/23/23 Unknown History aerosol inhaler SOB,Wheezing acetaminophen 500 mg tablet 1,000 mg (2 x 500 mg) PO Q 8 #180 09/07/23 Unknown Rx tabs carvedilol 6.25 mg tablet 6.25 mg PO BIDCM #60 tabs Unknown Rx fluoxetine 20 mg capsule (Prozac) 20 mg PO DAILY #30 c aps 09/07/23 Unknown Rx ipratropium bromide 42 mcg (0.06 2 spray NASAL TID #1 BOTTLE 09/07/23 Unknown Rx %) nasal spray levothyroxine 50 mcg tablet 50 mcg PO DAILY@0600 #30 t abs 09/07/23 Unknown Rx solifenacin 10 mg tablet 10 mg PO DAILY 08/12/24 Unkn own History polyethylene glycol 3350 17 17 g PO BID PRN constipati on 08/13/24 Unknown History gram/dose oral powder (Miralax) Allergy/AdvReac Type Severity Reaction Status Date / Time rofecoxib (From Vioxx) Allergy Unknown Verified 08/13/24 18:49 Surgical History Hx of surgical biopsy History of bladder surgery History of partial hysterectomy History of appendectomy History of cholecystectomy H/O lateral meniscus repair of right knee Social History housing: house Smoking Status: Never smoker second hand exposure: Yes substance use type: does not use ROS ROS Narrative Review of Systems: Constitutional: Patient denies fever or chills. Eyes: Patient denies change in vision or discharge from eyes. ENT: Patient denies runny nose, sore throat or ear pain. Resp: Patient denies shortness of breath or cough. CV: Patient denies chest pain, palpitations, heart racing or new lower extremityedema. GI: Patient denies abdominal pain, nausea, vomiting, diarrhea or constipation. : Patient denies bladder incontinence, urinary retention or hematuria. MSK: Patient admits to back pain after recent fall as per HPI. Skin: Patient denies rash, abscess, wounds or jaundice. Psych: Patient denies of uncontrolled depression or anxiety. Neuro: Patient denies headache, paresthesias or focal neurologic deficits. Allergy: Patient denies lip swelling, tongue swelling or urticaria. Hematology: Patient denies easy bleeding or easy bruisability. Endocrinology: Patient denies polyuria, polydipsia, polyphagia or heat/cold intolerance. 14 point ROS otherwise negative except for positives noted above in HPI. Vital Signs Vital Signs Vital Signs: 08/13/24 18:49 08/13/24 20:43 08/13/24 20:43 Temperature 97.5 F L Temperature Source Temporal Pulse Rate 88 Respiratory Rate 19 H Blood Pressure 134/68 H Blood Pressure Mean 90 Pulse Ox 92 80 92 Oxygen Delivery Method Room Air Room Air Nasal Cannula Oxygen Flow Rate (L/min) 2 08/13/24 22:45 08/13/24 23:47 08/14/24 00:37 Temperature 98.5 F Temperature Source Pulse Rate 88 85 88 Respiratory Rate 18 22 H 13 Blood Pressure 120/63 148/78 H 140/70 H Blood Pressure Mean 82 101 93 Pulse Ox 96 96 95 Oxygen Delivery Method Nasal Cannula Nasal Cannula Oxygen Flow Rate (L/min) 2 2 Weight Weight: 199 lb 8.293 oz Body Mass Index (BMI) 35.3 Physical Exam Const alert, oriented x3 and no apparent distress Constitutional Narrative: Obese. General Appearance: cooperative HEENT normocephalic, head/scalp atraumatic, hearing grossly normal bilaterally and moist oral mucous membranes Eyes PERRL and EOMs intact bilaterally Neck no lymphadenopathy and supple Resp normal respiratory effort, no retractions, no use of accessory muscles and clearto auscultation bilaterally Cardio regular rate and regular rhythm GI normal to inspection, nondistended, normoactive bowel sounds, soft to palpation,non-tender and non-distended Extremity normal to inspection, full ROM and no clubbing, cyanosis or edema Skin Skin Narrative: Patient denies rash, abscess, wounds or jaundice. Neuro oriented x3, CN's II-XII intact bilaterally, moves all extremities and no focal motor deficits Sensorium / Orientation: awake, alert, oriented to person, oriented to place andoriented to time Speech: speech normal Psych affect normal Results Medical Records Data Attestation: I reviewed the patient's medical records Lab / Micro Data Attestation: I reviewed the patient's lab results. 08/13/24 21:37 08/13/24 21:37 Labs: Laboratory Results - last 24 hr 08/13/24 20:40: Urine Color Yellow, Urine Clarity Sl. Cloudy, Urine pH 5.0, Ur Specific [place] 1.025, Urine Protein 30 H, Urine Glucose (UA) Normal, Urine Ketones 5 H, Urine Occult Blood 10 H, UrineNitrite Positive H, Urine Bilirubin Negative, Urine Urobilinogen Normal, Ur Leukocyte Esterase 500 H, Urine RBC 0-5 SEEN, Urine WBC 25-50 SEEN, Ur Squamous Epith Cells 0 SEEN, Urine Bacteria 3+, Urine Mucus 0 SEEN 08/13/24 21:37: WBC 8.9, RBC 4.25, Hgb 13.0, Hct 39.0, MCV 91.8, MCH 30.6, MCHC 33.3, RDW Std Deviation 42.6, RDW Coeff of Dionne 12.9, Plt Count 270, MPV 9.4, Sodium 136, Potassium 3.9, Chloride 102, Carbon Dioxide 21.7, Anion Gap 12, BUN 21 H, Creatinine 1.27 H, Estim Creat Clear Calc 37.10 L, Est GFR (MDRD) Non-Af 42 L, BUN/Creatinine Ratio 16.7, Glucose 123 H, Calcium 8.8, Total Bilirubin 0.25, AST 21, ALT 10, Alkaline Phosphatase 100, Troponin T High Sens 22 H, NT pro BNP II 236, Total Protein 6.4, Albumin 4.0, Globulin 2.4, Albumin/Globulin Ratio 1.6 Micro: Microbiology 08/13/24 21:37 Mucosa - Nose SARS-CoV-2, Influenza & RSV (PCR) - Final Imaging Radiology Impression Abdomen/Pelvis CT 08/13/24 21:28 IMPRESSION: No acute findings in the abdomen and pelvis. Reading Location: [facility] Lumbar Spine CT 08/13/24 21:28 IMPRESSION: No acute fracture or traumatic subluxation. Degenerative changes, most prominent at L3-L4. Reading Location: [facility] Chest X-Ray 08/13/24 21:48 IMPRESSION: No Acute Findings. Reading Location: [facility] Chest CTA 08/13/24 23:08 IMPRESSION: No evidence of a pulmonary emboli up to the segmental arterial branches. More peripheral vessels are not well assessed. Reading Location: [facility] Assessment & Plan Assessment/Plan (1) Acute cystitis without hematuria: (2) Acute myofascial strain of lumbosacral region: QUALIFIERS: Encounter type: initial encounter Qualified Code(s): S39.012A - Strain of muscle, fascia and tendon of lower back, initial encounter (3) Hypoxia: (4) Sleep apnea: QUALIFIERS: Sleep apnea type: obstructive Qualified Code(s): G47.33 - Obstructive sleep apnea (adult) (pediatric) (5) Obesity (BMI 30-39.9): PLAN: Plan 1. UA positive for Acute Cystitis; without hematuria - [facility] Continue empiric IV ceftriaxone begun in the ER and await culture and sensitivity data. Give acetaminophen as needed for [id number] (level 1-5/10) pain or fever. Give morphine IV as needed for severe (level 6-10/10) pain. 2. Acute myofascial strain of lumbosacral region after recent fall complicating#1 - Give pain regimen as outlined in #1. Finally, PT/OT and case management consult and treat on rounds in the a.m. forfurther recommendations with help appreciated in advance. 3. Obesity; with BMI of 35.1 this admission plus patient noncompliant with CPAPnoted to have Hypoxia with activity likely due to OHS compounding #1 & #2 - Patient will need to be tested to see ifshe requires home oxygen. She will be encouraged to use CPAP. Weight loss will be recommended. Check TSH. This complicates her case and may hamper recovery. 4. Essential hypertension; on carvedilol - Maintain current regimen. 5. Hyperlipidemia; on ezetimibe - Continue ezetimibe and check lipid profile this admission. 6. Hypothyroidism; on levothyroxine - Resume levothyroxine as previous and check TSH. 7. History of chronic venous insufficiency - Noted with no signs of edema on admission. 8. History of dementia - Stable. 9. History of asthma; on as needed albuterol - Stable with no evidence of acuteflare at this time. Continue as needed albuterol inhaler. 10. History of overactive/neurogenic bladder; s/p bladder surgery on mirabegronand Solifenacin - Resume current therapy. 11. Depression; on fluoxetine - Maintain current fluoxetine dose and schedule. 12. History of Hemoccult positive stool - Noted with no evidence of active bleeding at this time. 13. History of appendectomy - Noted. 14. History of cholecystectomy - Noted. 15. GERD; on pantoprazole and famotidine nightly - Continue current treatment. 16. History of constipation; on as needed polyethylene glycol - Stable. 17. OA; with history of lateral meniscus repair of the Right knee and chronic back pain with patient ambulating with cane at baseline with frequent falls - Stable. 18. DVT prophylaxis - Lovenox 40 mg sq daily plus SCDs. Total time: Approximately (but not less than) 55 minutes. Charges/Coding Visit Charges Inpatient E&M: 04672 Init Hosp L2 08/14/24 0656 Cosigner Signature (if applicable): CC: Dr. Jose Aj DO; Dr. Dinah Melgar MD~ Signed [facility]04-08-2025 Discharge summary Author Haider [facility] Note Date/Time August 14, 2024 12:[address] [facility] Medical Records Department [address] [place] [address] Emergency Department Summary 08/13/24 MR#: [id number] Acct: [id number] Name: GEORGINA SEGURA Rep #:[id number] : 1945 79 From: Haider Lopez PCP: Dr. Dinah Melgar MD Status:REG E R Location: ED HPI History of Present Illness Chief Complaint: Back [facility] Medical History NAYA (obstructive sleep apnea) Noncompliance with CPAP treatment Venous insufficiency (chronic) (peripheral) Dementia Dehydration Neurogenic bladder Frequent falls Glucose intolerance (impaired glucose tolerance) Loss of hearing Post-menopausal Ambulates with cane Arthritis Back pain Injury of head and neck Asthma CPAP (continuous positive airway pressure) dependence History of pain when walking Wears glasses Depression Overactive bladder High cholesterol Easy bruising Non-smoker PONV (postoperative nausea and vomiting) GERD (gastroesophageal reflux disease) Hypothyroid Home Medications ?Medication ?Instructions ?Recorded ?Last Taken ?Type famotidine 40 mg tablet 40 mg PO QHS GERD 06/11/22 U nknown History mirabegron 50 mg tablet,extended 50 mg PO DAILY OAB Unknown History release 24 hr (Myrbetriq) pantoprazole 40 mg granules 40 mg PO DAILY GERD 08/23/23 History delayed-release for susp in packet ezetimibe 10 mg tablet 10 mg PO DAILY cholestorol 1 05/28/22 08/23/23 History albuterol sulfate 90 mcg/actuation 2 inh inhalation Q4 H PRN 08/23/23 Unknown History aerosol inhaler SOB,Wheezing acetaminophen 500 mg tablet 1,000 mg (2 x 500 mg) PO Q 8 #180 09/07/23 Unknown Rx tabs carvedilol 6.25 mg tablet 6.25 mg PO BIDCM #60 tabs Unknown Rx fluoxetine 20 mg capsule (Prozac) 20 mg PO DAILY #30 c aps 09/07/23 Unknown Rx ipratropium bromide 42 mcg (0.06 2 spray NASAL TID #1 BOTTLE 09/07/23 Unknown Rx %) nasal spray levothyroxine 50 mcg tablet 50 mcg PO DAILY@0600 #30 t abs 09/07/23 Unknown Rx solifenacin 10 mg tablet 10 mg PO DAILY 08/12/24 Unkn own History polyethylene glycol 3350 17 17 g PO BID PRN constipati on 08/13/24 Unknown History gram/dose oral powder (Miralax) Allergy/AdvReac Type Severity Reaction Status Date / Time rofecoxib (From Vioxx) Allergy Unknown Verified 08/13/24 18:49 Surgical History Hx of surgical biopsy History of bladder surgery History of partial hysterectomy History of appendectomy History of cholecystectomy H/O lateral meniscus repair of right knee Social History housing: house Smoking Status: Never smoker second hand exposure: Yes substance use type: does not use EXAM Physical Exam Const Vital Signs: 08/13/24 18:49 08/13/24 20:43 08/13/24 20:43 Temperature 97.5 F L Temperature Source Temporal Pulse Rate 88 Respiratory Rate 19 H Blood Pressure 134/68 H Blood Pressure Mean 90 Pulse Ox 92 80 92 Oxygen Delivery Method Room Air Room Air Nasal Cannula Oxygen Flow Rate (L/min) 2 08/13/24 22:45 08/13/24 23:47 Temperature Temperature Source Pulse Rate 88 85 Respiratory Rate 18 22 H Blood Pressure 120/63 148/78 H Blood Pressure Mean 82 101 Pulse Ox 96 96 Oxygen Delivery Method Nasal Cannula Nasal Cannula Oxygen Flow Rate (L/min) 2 2 [facility] Narrative Medical decision making narrative: HISTORY OF PRESENT ILLNESS: Chief complaint: Back pain 79-year-old female present back pain is now resolved. Notes lower midsternal back pain that got worse after recent fall where she received an x-ray for. Shestates she has no bowel or bladder incontinence, no urinary retention, no loss of motor sensation in her legs. She notes pain in the flank area when asked to locate her pain. She denies vomiting. Denies chest pain or shortness of breath. Denies abdominal pain but does note some abdominal fullness. REVIEW OF SYSTEMS: Pertinent positives: Back pain, abdominal pain, flank pain Pertinent negatives: Vomiting, chest pain PHYSICAL EXAM: Nursing triage notes reviewed, Vital signs reviewed Constitutional: please see [facility] HENT: MMM Eyes: Pupils equal round and reactive to light, Extraocular muscles intact Neck: No stridor, no JVD, full neck ROM Lungs: Clear to auscultation, No wheezing or rales. No increased work of breathing, no conversational dyspnea, no accessory muscle use, no nasal flaring. No respiratory distress noted Heart: Regular rate and rhythm, No murmurs, No rubs and No gallops, 2+ distal pulses (radial, femoral, posterior tibial) in all extremities Abdomen: Soft, there is no tenderness slight distention, rigidity, rebound or guarding, no obvious peritoneal signs, no palpable pulsatile abdominal masses, no auscultated abdominal bruit : No CVAT Extremities: No edema Neuro: Intact sensation L1-S1 dermatomal distributions. Intact 5/5 strength in hip flexion (T12-L3). Knee extension (L2-L4). Ankle dorsiflexion (L4-L5). Ankle plantar flexion (S1). Great toe extension (L5). 2+ patellar and AchillesDTRs. Skin: No rash or lesions noted MEDICAL DECISION MAKING: Chief Complaint: please see HPI External records reviewed: Reviewed prior imaging studies: Reviewed x-rays of lumbar spine from August 12, 2024 which showed no acute fracture Factors affecting care: Hypertension, anxiety, neurogenic bladder, Social determinants of health: none History obtained from others: Family Consults: Internal medicine (Dr. Denson) [facility] Narrative: The patient was initially hemodynamically stable, afebrile and nontoxic- appearing. Exam without focal cardiopulmonary maladies. Abdomen was slightly distended but nontender to palpation I considered the following differential diagnosis: Intra-abdominal surgical pathology, nephrolithiasis, fractures location lumbar spine, pneumonia, ACS, arrhythmia, anemia, UTI, PE I obtained a broad lab and imaging workup that initially consisted of CT scan abdomen pelvis, CT scan lumbar spine, labs including troponin, EKG, urinalysis ALL IMAGES (IF OBTAINED) HAVE BEEN PERSONALLY REVIEWED AND INTERPRETED BY MYSELF. EKG with normal sinus rhythm, normal axis, normal intervals, no STEMI CBC without leukocytosis, severe anemia, no thrombocytopenia. BMP without evidence of significant electrolyte abnormalities, no anion gap, no acute kidneyinjury. Baseline CKD LFTs show no evidence of hepatobiliary pathology. High-sensitivity troponin is negative, no evidence of myocardial ischemia BNP within normal suggestive of no heart failure Urinalysis consistent with UTI I have personally reviewed the patient's chest x-ray. Chest x-ray is unremarkable for pulmonary edema, pneumothorax, pneumonia or focal cardiopulmonary abnormality. CT scan lumbar spine showed no evidence of obvious bony abnormality lumbar spine CT scan abdomen pelvis with no evidence of obvious intra-abdominal surgical pathology or left lithiasis During the patient's ED course she became hypoxic. She does note she has NAYA and wears oxygen at night. Her lungs were clear. At this point I ambulated thepatient to assess if she had an exertional hypoxia. She ambulates she desaturated to 82%Given exertional hypoxia add on a BNP, COVID flu RSV and CTA of the chest. Additional testing also was negative. Given exertional hypoxia admit the patient. Will also admit for UTI. The patient and/or family, caregivers express understanding. The patient and/orfamily, caregivers agrees with the plan. Shared decision making: I will have a discussion with the patient and or visitors regarding risk/benefits of further testing or admission. They will be made aware of of the risk/benefits inherent in this decision they will be given the opportunity to voice understanding. Total critical care time today provided was at least 0 minutes. This excludes separately billable procedures. Critical care time (if documented) is secondary to the patient having high probability of clinically significant/life threatening deterioration in the patient's condition which required my urgent intervention. Impression: 1. Back pain 2. UTI 3. NAYA 4. Exertional hypoxia Dispo: Admit to medical floor This note was generated with Synker dictation software. It may contain incorrectwords, spelling, and punctuation that were not noted in review of the chart prior to signing. Lab Data Labs: Laboratory Results - last 24 hr 08/13/24 08/13/24 20:40 21:37 WBC 8.9 RBC 4.25 Hgb 13.0 Hct 39.0 MCV 91.8 MCH 30.6 MCHC 33.3 RDW Std Deviation 42.6 RDW Coeff of Dionne 12.9 Plt Count 270 MPV 9.4 Sodium 136 Potassium 3.9 Chloride 102 Carbon Dioxide 21.7 Anion Gap 12 BUN 21 H Creatinine 1.27 H Estim Creat Clear Calc 37.10 L Est GFR (MDRD) Non-Af 42 L BUN/Creatinine Ratio 16.7 Glucose 123 H Calcium 8.8 Total Bilirubin 0.25 AST 21 ALT 10 Alkaline Phosphatase 100 Troponin T High Sens 22 H NT pro BNP II 236 Total Protein 6.4 Albumin 4.0 Globulin 2.4 Albumin/Globulin Ratio 1.6 Urine Color Yellow Urine Clarity Sl. Cloudy Urine pH 5.0 Ur Specific [place] 1.025 Urine Protein 30 H Urine Glucose (UA) Normal Urine Ketones 5 H Urine Occult Blood 10 H Urine Nitrite Positive H Urine Bilirubin Negative Urine Urobilinogen Normal Ur Leukocyte Esterase 500 H Urine RBC 0-5 SEEN Urine WBC 25-50 SEEN Ur Squamous Epith Cells 0 SEEN Urine Bacteria 3+ Urine Mucus 0 SEEN Radiography Diagnostic Testing: Clinical Impression(s) from Imaging Studies Abdomen/Pelvis CT 08/13/24 21:28 IMPRESSION: No acute findings in the abdomen and pelvis. Reading Location: [facility] Lumbar Spine CT 08/13/24 21:28 IMPRESSION: No acute fracture or traumatic subluxation. Degenerative changes, most prominent at L3-L4. Reading Location: [facility] Chest X-Ray 08/13/24 21:48 IMPRESSION: No Acute Findings. Reading Location: [facility] Discharge Plan Triage Chief Complaint: Back ED Provider: Haider Hinojosa Dx/Rx/DC Orders Prescriptions: No Action famotidine 40 mg Tablet 40 mg PO QHS pantoprazole [address] For Susp In Packet 40 mg PO DAILY mirabegron [Myrbetriq] 50 mg Tablet Extended Release 24 Hr 50 mg PO DAILY ezetimibe 10 mg tablet 10 mg PO DAILY albuterol sulfate 90 mcg/actuation HFA aerosol inhaler 2 inh inhalation Q4H PRN (Reason: SOB,Wheezing) fluoxetine [Prozac] 20 mg capsule 20 mg PO DAILY Qty: 30 0RF carvedilol 6.25 mg Tablet 6.25 mg PO BIDCM Qty: 60 0RF acetaminophen 500 mg Tablet 1,000 mg PO Q8 Qty: 180 0RF levothyroxine 50 mcg Tablet 50 mcg PO DAILY@0600 Qty: 30 0RF ipratropium bromide 42 mcg (0.06 %) [place],Non-Aerosol 2 spray NASAL TID Qty: 1 0RF solifenacin 10 mg tablet 10 mg PO DAILY polyethylene glycol 3350 [Miralax] 17 gram/dose powder 17 g PO BID PRN (Reason: constipation) Primary Care Provider: Dinah Melgar Referrals: Dinah Melgar MD [Primary Care Provider] - Print Language: Italian What to do if you have Problems For any increased pain, shortness of breath, bleeding, nausea or vomiting, chestpain, or any unexpected problems, contact your Primary Care Provider. Call [facility] ([phone]) or report to the closest Emergency Room. Call 911 if necessary. 08/14/24 0059 <Electronically signed by Haider Hinojosa DO> Cosigner Signature (if applicable): CC: Dr. Dinah Melgar MD ~ Signed [facility] Work Phone: [phone] 312-949404-08-[address] [facility] Medical Records Department [address] [place] [address] Emergency Department Summary 08/13/24 MR#: [id number] Acct: [id number] Name: GEORGINA SEGURA Rep #:[id number] : 1945 79 From: Haider Lopez PCP: Dr. Dinah Melgar MD Status:REG E R Location: ED HPI History of Present Illness Chief Complaint: [facility] Medical History NAYA (obstructive sleep apnea) Noncompliance with CPAP treatment Venous insufficiency (chronic) (peripheral) Dementia Dehydration Neurogenic bladder Frequent falls Glucose intolerance (impaired glucose tolerance) Loss of hearing Post-menopausal Ambulates with cane Arthritis Back pain Injury of head and neck Asthma CPAP (continuous positive airway pressure) dependence History of pain when walking Wears glasses Depression Overactive bladder High cholesterol Easy bruising Non-smoker PONV (postoperative nausea and vomiting) GERD (gastroesophageal reflux disease) Hypothyroid Home Medications ?Medication ?Instructions ?Recorded ?Last Taken ?Type famotidine 40 mg tablet 40 mg PO QHS GERD 06/11/22 U nknown History mirabegron 50 mg tablet,extended 50 mg PO DAILY OAB Unknown History release 24 hr (Myrbetriq) pantoprazole 40 mg granules 40 mg PO DAILY GERD 08/23/23 History delayed-release for susp in packet ezetimibe 10 mg tablet 10 mg PO DAILY cholestorol 1 05/28/22 08/23/23 History albuterol sulfate 90 mcg/actuation 2 inh inhalation Q4 H PRN 08/23/23 Unknown History aerosol inhaler SOB,Wheezing acetaminophen 500 mg tablet 1,000 mg (2 x 500 mg) PO Q 8 #180 09/07/23 Unknown Rx tabs carvedilol 6.25 mg tablet 6.25 mg PO BIDCM #60 tabs Unknown Rx fluoxetine 20 mg capsule (Prozac) 20 mg PO DAILY #30 c aps 09/07/23 Unknown Rx ipratropium bromide 42 mcg (0.06 2 spray NASAL TID #1 BOTTLE 09/07/23 Unknown Rx %) nasal spray levothyroxine 50 mcg tablet 50 mcg PO DAILY@0600 #30 t abs 09/07/23 Unknown Rx solifenacin 10 mg tablet 10 mg PO DAILY 08/12/24 Unkn own History polyethylene glycol 3350 17 17 g PO BID PRN constipati on 08/13/24 Unknown History gram/dose oral powder (Miralax) Allergy/AdvReac Type Severity Reaction Status Date / Time rofecoxib (From Vioxx) Allergy Unknown Verified 08/13/24 18:49 Surgical History Hx of surgical biopsy History of bladder surgery History of partial hysterectomy History of appendectomy History of cholecystectomy H/O lateral meniscus repair of right knee Social History housing: house Smoking Status: Never smoker second hand exposure: Yes substance use type: does not use EXAM Physical Exam Const Vital Signs: 08/13/24 18:49 08/13/24 20:43 08/13/24 20:43 Temperature 97.5 F L Temperature Source Temporal Pulse Rate 88 Respiratory Rate 19 H Blood Pressure 134/68 H Blood Pressure Mean 90 Pulse Ox 92 80 92 Oxygen Delivery Method Room Air Room Air Nasal Cannula Oxygen Flow Rate (L/min) 2 08/13/24 22:45 08/13/24 23:47 Temperature Temperature Source Pulse Rate 88 85 Respiratory Rate 18 22 H Blood Pressure 120/63 148/78 H Blood Pressure Mean 82 101 Pulse Ox 96 96 Oxygen Delivery Method Nasal Cannula Nasal Cannula Oxygen Flow Rate (L/min) 2 2 MDM MDM MDM Narrative Medical decision making narrative: HISTORY OF PRESENT ILLNESS: Chief complaint: Back pain 79-year-old female present back pain is now resolved. Notes lower midsternal back pain that got worse after recent fall where she received an x-ray for. Shestates she has no bowel or bladder incontinence, no urinary retention, no loss of motor sensation in her legs. She notes pain in the flank areawhen asked to locate her pain. She denies vomiting. Denies chest pain or shortness of breath. Denies abdominal pain but does note some abdominal fullness. REVIEW OF SYSTEMS: Pertinent positives: Back pain, abdominal pain, flank pain Pertinent negatives: Vomiting, chest pain PHYSICAL EXAM: Nursing triage notes reviewed, Vital signs reviewed Constitutional: please see mdm HENT: MMM Eyes: Pupils equal round and reactive to light, Extraocular muscles intact Neck: No stridor, no JVD, full neck ROM Lungs: Clear to auscultation, No wheezing or rales. No increased work of breathing, no conversational dyspnea, no accessory muscle use, no nasal flaring. No respiratory distress noted Heart: Regular rate and rhythm, No murmurs, No rubs and No gallops, 2+ distal pulses (radial, femoral, posterior tibial) in all extremities Abdomen: Soft, there is no tenderness slight distention, rigidity, rebound or guarding, no obvious peritoneal signs, no palpable pulsatile abdominal masses, no auscultated abdominal bruit : No CVAT Extremities: No edema Neuro: Intact sensation L1-S1 dermatomal distributions. Intact 5/5 strength in hip flexion (T12-L3). Knee extension (L2-L4). Ankle dorsiflexion (L4-L5). Ankle plantar flexion (S1). Great toe extension (L5). 2+ patellar and AchillesDTRs. Skin: No rash or lesions noted MEDICAL DECISION MAKING: Chief Complaint: please see HPI External records reviewed: Reviewed prior imaging studies: Reviewed x-rays of lumbar spine from August 12, 2024 which showed no acute fracture Factors affecting care: Hypertension, anxiety, neurogenic bladder, Social determinants of health: none History obtained from others: Family Consults: Internal medicine (Dr. Denson) MDM Narrative: The patient was initially hemodynamically stable, afebrile and nontoxic- appearing. Exam without focal cardiopulmonary maladies. Abdomen was slightly distended but nontender to palpation I considered the following differential diagnosis: Intra-abdominal surgical pathology, nephrolithiasis, fractures location lumbar spine, pneumonia, ACS, arrhythmia, anemia, UTI, PE I obtained a broad lab and imaging workup that initially consisted of CT scan abdomen pelvis, CT scan lumbar spine, labs including troponin, EKG, urinalysis ALL IMAGES (IF OBTAINED) HAVE BEEN PERSONALLY REVIEWED AND INTERPRETED BY MYSELF. EKG with normal sinus rhythm, normal axis, normal intervals, no STEMI CBC without leukocytosis, severe anemia, no thrombocytopenia. BMP without evidence of significant electrolyte abnormalities, no anion gap, no acute kidneyinjury. Baseline CKD LFTs show no evidence of hepatobiliary pathology. High-sensitivity troponin is negative, no evidence of myocardial ischemia BNP within normal suggestive of no heart failure Urinalysis consistent with UTI I have personally reviewed the patient's chest x-ray. Chest x-ray is unremarkable for pulmonary edema, pneumothorax, pneumonia or focal cardiopulmonary abnormality. CT scan lumbar spine showed no evidence of obvious bony abnormality lumbar spine CT scan abdomen pelvis with no evidence of obvious intra-abdominal surgical pathology or left lithiasis During the patient's ED course she became hypoxic. She does note she has NAYA and wears oxygen at night. Her lungs were clear. At this point I ambulated thepatient to assess if she had an exertional hypoxia. She ambulates she desaturated to 82%Given exertional hypoxia add on a BNP, COVID flu RSV andCTA of the chest. Additional testing also was negative. Given exertional hypoxia admit the patient. Will also admit for UTI. The patient and/or family, caregivers express understanding. The patient and/orfamily, caregivers agrees with the plan. Shared decision making: I will have a discussion with the patient and or visitors regarding risk/benefits of further testing or admission. They will be made aware of of the risk/benefits inherent in this decision they will be given the opportunity to voice understanding. Total critical care time today provided was at least 0 minutes. This excludes separately billable procedures. Critical care time (if documented) is secondary to the patient having high probability ofclinically significant/life threatening deterioration in the patient's condition which required my urgent intervention. Impression: 1. Back pain 2. UTI 3. NAYA 4. Exertional hypoxia Dispo: Admit to medical floor This note was generated with Synker dictation software. It may contain incorrectwords, spelling, and punctuation that were not noted in review of the chart prior to signing. Lab Data Labs: Laboratory Results - last 24 hr 08/13/24 08/13/24 20:40 21:37 WBC 8.9 RBC 4.25 Hgb 13.0 Hct 39.0 MCV 91.8 MCH 30.6 MCHC 33.3 RDW Std Deviation 42.6 RDW Coeff of Dionne 12.9 Plt Count 270 MPV 9.4 Sodium 136 Potassium 3.9 Chloride 102 Carbon Dioxide 21.7 Anion Gap 12 BUN 21 H Creatinine 1.27 H Estim Creat Clear Calc 37.10 L Est GFR (MDRD) Non-Af 42 L BUN/Creatinine Ratio 16.7 Glucose 123 H Calcium 8.8 Total Bilirubin 0.25 AST 21 ALT 10 Alkaline Phosphatase 100 Troponin T High Sens 22 H NT pro BNP II 236 Total Protein 6.4 Albumin 4.0 Globulin 2.4 Albumin/Globulin Ratio 1.6 Urine Color Yellow Urine Clarity Sl. Cloudy Urine pH 5.0 Ur Specific [place] 1.025 Urine Protein 30 H Urine Glucose (UA) Normal Urine Ketones 5 H Urine Occult Blood 10 H Urine Nitrite Positive H Urine Bilirubin Negative Urine Urobilinogen Normal Ur Leukocyte Esterase 500 H Urine RBC 0-5 SEEN Urine WBC 25-50 SEEN Ur Squamous Epith Cells 0 SEEN Urine Bacteria 3+ Urine Mucus 0 SEEN Radiography Diagnostic Testing: Clinical Impression(s) from Imaging Studies Abdomen/Pelvis CT 08/13/24 21:28 IMPRESSION: No acute findings in the abdomen and pelvis. Reading Location: [facility] Lumbar Spine CT 08/13/24 21:28 IMPRESSION: No acute fracture or traumatic subluxation. Degenerative changes, most prominent at L3-L4. Reading Location: [facility] Chest X-Ray 08/13/24 21:48 IMPRESSION: No Acute Findings. Reading Location: [facility] Discharge Plan Triage Chief Complaint: Back ED Provider: Haider Hinojosa Dx/Rx/DC Orders Prescriptions: No Action famotidine 40 mg Tablet 40 mg PO QHS pantoprazole [address] For Susp In Packet 40 mg PO DAILY mirabegron [Myrbetriq] 50 mg Tablet Extended Release 24 Hr 50 mg PO DAILY ezetimibe 10 mg tablet 10 mg PO DAILY albuterol sulfate 90 mcg/actuation HFA aerosol inhaler 2 inh inhalation Q4H PRN (Reason: SOB,Wheezing) fluoxetine [Prozac] 20 mg capsule 20 mg PO DAILY Qty: 30 0RF carvedilol 6.25 mg Tablet 6.25 mg PO BIDCM Qty: 60 0RF acetaminophen 500 mg Tablet 1,000 mg PO Q8 Qty: 180 0RF levothyroxine 50 mcg Tablet 50 mcg PO DAILY@0600 Qty: 30 0RF ipratropium bromide 42 mcg (0.06 %) [place],Non-Aerosol 2 spray NASAL TID Qty: 1 0RF solifenacin 10 mg tablet 10 mg PO DAILY polyethylene glycol 3350 [Miralax] 17 gram/dose powder 17 g PO BID PRN (Reason: constipation) Primary Care Provider: Dinah Melgar Referrals: Dinah Melgar MD [Primary Care Provider] - Print Language: Italian What to do if you have Problems For any increased pain, shortness of breath, bleeding, nausea or vomiting, chestpain, or any unexpected problems, contact your Primary Care Provider. Call [facility] ([phone]) or report tothe closest Emergency Room. Call 911 if necessary. 08/14/24 0059 Cosigner Signature (if applicable): CC: Dr. Dinah Melgar MD ~ Signed [facility]04-08-2025 Radiology Diagnostic study note [facility] Imaging Services [address] [place] [address] CTA Chest W/WO Contrast MR#: [id number] Acct: [id number] Name: GEORGINA SEGURA Rep #: [id number] : 1945 F 79 From: Isabel Cho MD PCP: Dr. Dinah Melgar MD Status: REG E R Study:CTA Chest W/WO Contrast Date of Exam: 08/13/24 Exam# [id number] Ordering Dr: Burke Hinojosa DO PROCEDURE: CTA CHEST W/WO CONTRAST 08/13/2024 REASON FOR EXAM: HYPOXIA TECHNIQUE: CTA axial imaging of the chest with intravenous contrast. Coronal and Sagittal reconstruction series were provided. 3D, 3D post processing, 3D reconstructions, Maximum intensity projection (MIPs) Volume rendering and Shaded surface rendering was provided. PATIENT PREPARATION: Per protocol CONTRAST: Isovue 370 VOLUME: 100 ML 18 gauge IV One or more dose reduction techniques were used (e.g., Automated exposure control, adjustment of the mA and/or kV according to patient size, use of iterative reconstruction technique). RADIATION DOSE SUMMARY: CTDlvol: 509.5 mGy DLP: 513.1 mGycm . COMPARISON: Chest radiograph dated August 13, 2024 FINDINGS: Hardware: None Lymph nodes: No lymphadenopathy. Heart: The heart is normal in size. The great vessels are normal in size and caliber. No pericardial effusion. Coronary artery calcification. RV/LV Diameter Ratio: Unremarkable Thoracic Aorta: Unremarkable Pulmonary Vessels: No evidence of pulmonary emboli up to the segmental arterial branches. More peripheral vessels are not well assessed. Most Proximal Level of Embolus (if embolus present): Lungs and Airways: Central airways are patent. Patchy opacity within the lingula and bilateral lower lobe likely representing scarring or subsegmental atelectasis. Dependent left basilar atelectasis. Pleura: Questionable trace left pleural effusion. Upper Abdomen: Unremarkable Bones: Multilevel degenerative changes throughout the spine. CT/CTA Chest W/WO Contrast IMPRESSION: No evidence of a pulmonary emboli up to the segmental arterial branches. More peripheral vessels are not well assessed. Reading Location: [facility] CC: Dr. Haider Hinojosa DO; Dr. Dinah Melgar MD ~ 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Signed [facility]04-07-2025 Radiology Diagnostic study note [facility] Imaging Services [address] [place], [place] [address] Spine Lumbar without Contrast MR#: [id number] Acct: [id number] Name: GEORGINA SEGURA Rep #: [id number] : 1945 F 79 From: Dinah Ramos MD PCP: Dr. Dinah Melgar MD Status: REG E R Study:Spine Lumbar without Contrast Date of E xam: 08/13/24 Exam# [id number] Ordering Dr: Burke Hinojosa DO PROCEDURE: SPINE LUMBAR WITHOUT CONTRAST 08/13/2024 REASON FOR EXAM: BACK PAIN TECHNIQUE: Lumbar spine CT without contrast. Coronal and Sagittal reconstruction series were provided. One or more dose reduction techniques were used (e.g., Automated exposure control, adjustment of the mA and/or kV according to patient size, use of iterative reconstruction technique COMPARISON: Lumbar spine radiograph 08/12/2024 FINDINGS: Vertebrae: Vertebral body heights are maintained. Mild multilevel loss of disc space most prominentat L1-L2 and L2-L3. No acute fracture or traumatic malalignment. Right sacral spiculated lesion, likely bone island. Otherwise, no evidence of lytic or blastic lesion. Alignment: Lumbar lordosis is maintained. Mild levoscoliosis. Grade 1 anterolisthesis of L3 on L4 and L4 on L5. Multilevel degenerative changes with up to mild canal stenosis and moderate neural foraminal narrowing most prominent at L3-L4 CT/Spine Lumbar without Contrast IMPRESSION: No acute fracture or traumatic subluxation. Degenerative changes, most prominent at L3-L4. Reading Location: [facility] CC: Dr. Haider Hinojosa DO; Dr. Dinah Melgar MD ~ 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Signed [facility]04-07-2025 Radiology Diagnostic study note [facility] Imaging Services [address] [place] [address] Abdomen/Pelvis W IV Cont ONLY MR#: [id number] Acct: [id number] Name: GEORGINA SEGURA Rep #: [id number] : 1945 F 79 From: Dinah Ramos MD PCP: Dr. Dinah Melgar MD Status: REG E R Study:Abdomen/Pelvis W IV Cont ONLY Date of E xam: 08/13/24 Exam# [id number] Ordering Dr: Burke Hinojosa DO PROCEDURE: ABDOMEN/PELVIS W IV CONT ONLY 08/13/2024 REASON FOR EXAM: ABDOMINAL PAIN TECHNIQUE: Abdomen and pelvis CT with intravenous contrast. Coronal and Sagittal reconstruction series were provided. PATIENT PREPARATION: Per protocol ORAL CONTRAST TYPE: None. AMOUNT: mL CONTRAST: Omnipaque 350 VOLUME: 100 mL Not Provided Gauge IV One or more dose reduction techniques were used (e.g., Automated exposure control, adjustment of the mA and/or kV according to patient size, use of iterative reconstruction technique. COMPARISON: None FINDINGS: Lung bases: Mild bibasilar atelectasis. Mild cardiomegaly. Dense mitral annular calcifications. Liver: Homogeneous attenuation. No focal lesion. Gallbladder: No ductal dilation. Status post cholecystectomy. Spleen: Normal size. Pancreas: Normal size without evidence of mass surrounding inflammation or ductal dilation. Adrenals: Unremarkable Kidneys: Normal renal sizes. No hydronephrosis. Bladder: No abnormal wall thickening. Reproductive Organs: No pelvic mass. Bowel: Stomach is unremarkable. Small hiatal hernia. No bowel dilation or wallthickening. Appendix: The appendix is not identified. There is no inflammatory process identified in the right lower quadrant to suggest appendicitis. Lymph nodes: No suspicious lymph node enlargement. Vasculature: Moderate diffuse atherosclerotic calcifications are noted. Peritoneum / Retroperitoneum: No ascites. No pneumoperitoneum. Bones: Degenerative changes of the spine. Soft tissues: Right retro gluteal neurostimulator device, with leads terminatingin the left presacral region. CT/Abdomen/Pelvis W IV Cont ONLY IMPRESSION: No acute findings in the abdomen and pelvis. Reading Location: [facility] CC: Dr. Haider Hinojosa DO; Dr. Dinah Melgar MD ~ 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Signed [facility]04-07-2025 Radiology Diagnostic study note [facility] Imaging Services [address] [place] [address] Chest 1 View (Portable) MR#: [id number] Acct: [id number] Name: SHARONDAALEXANDRAGEORGINA Rasmussen Ricky Rep #: [id number] : 1945 F 79 From: Dinah Ramos MD PCP: Dr. Dinah Melgar MD Status: REG E R Study:Chest 1 View (Portable) Date of Exam: 08/13/24 Exam# [id number] Ordering Dr: Burke Hinojosa DO PROCEDURE: CHEST 1 VIEW (PORTABLE) 08/13/2024 REASON FOR EXAM: SOB TECHNIQUE: Frontal view of the chest. COMPARISON: None FINDINGS: Hardware: None Heart: Heart size is mildly enlarged. Lungs: Mild bibasilar atelectasis. No focal consolidation. No pneumothorax. No pleural effusion. Bones: Degenerative changes are identified within the thoracic spine. Other: RAD/Chest 1 View (Portable) IMPRESSION: No Acute Findings. Reading Location: [facility] CC: Dr. Haider Hinojosa DO; Dr. Dinah Melgar MD ~ 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Signed [facility]04-07-2025 Discharge summary Author Haider Hinojosa [facility] Note Date/Time August 14, 2024 12:[address] [facility] Medical Records Department [address] [place] [address] Emergency Department Summary 08/13/24 MR#: [id number] Acct: [id number] Name: COLTONGEORGINA Ricky Rep #:[id number] : 1945 79 From: Haider Lopez PCP: Dr. Dinah Melgar MD Status:REG E R Location: ED HPI History of Present Illness Chief Complaint: Back PFSH [facility] Medical History NAYA (obstructive sleep apnea) Noncompliance with CPAP treatment Venous insufficiency (chronic) (peripheral) Dementia Dehydration Neurogenic bladder Frequent falls Glucose intolerance (impaired glucose tolerance) Loss of hearing Post-menopausal Ambulates with cane Arthritis Back pain Injury of head and neck Asthma CPAP (continuous positive airway pressure) dependence History of pain when walking Wears glasses Depression Overactive bladder High cholesterol Easy bruising Non-smoker PONV (postoperative nausea and vomiting) GERD (gastroesophageal reflux disease) Hypothyroid Home Medications ?Medication ?Instructions ?Recorded ?Last Taken ?Type famotidine 40 mg tablet 40 mg PO QHS GERD 06/11/22 U nknown History mirabegron 50 mg tablet,extended 50 mg PO DAILY OAB Unknown History release 24 hr (Myrbetriq) pantoprazole 40 mg granules 40 mg PO DAILY GERD 08/23/23 History delayed-release for susp in packet ezetimibe 10 mg tablet 10 mg PO DAILY cholestorol 1 05/28/22 08/23/23 History albuterol sulfate 90 mcg/actuation 2 inh inhalation Q4 H PRN 08/23/23 Unknown History aerosol inhaler SOB,Wheezing acetaminophen 500 mg tablet 1,000 mg (2 x 500 mg) PO Q 8 #180 09/07/23 Unknown Rx tabs carvedilol 6.25 mg tablet 6.25 mg PO BIDCM #60 tabs Unknown Rx fluoxetine 20 mg capsule (Prozac) 20 mg PO DAILY #30 c aps 09/07/23 Unknown Rx ipratropium bromide 42 mcg (0.06 2 spray NASAL TID #1 BOTTLE 09/07/23 Unknown Rx %) nasal spray levothyroxine 50 mcg tablet 50 mcg PO DAILY@0600 #30 t abs 09/07/23 Unknown Rx solifenacin 10 mg tablet 10 mg PO DAILY 08/12/24 Unkn own History polyethylene glycol 3350 17 17 g PO BID PRN constipati on 08/13/24 Unknown History gram/dose oral powder (Miralax) Allergy/AdvReac Type Severity Reaction Status Date / Time rofecoxib (From Vioxx) Allergy Unknown Verified 08/13/24 18:49 Surgical History Hx of surgical biopsy History of bladder surgery History of partial hysterectomy History of appendectomy History of cholecystectomy H/O lateral meniscus repair of right knee Social History housing: house Smoking Status: Never smoker second hand exposure: Yes substance use type: does not use EXAM Physical Exam Const Vital Signs: 08/13/24 18:49 08/13/24 20:43 08/13/24 20:43 Temperature 97.5 F L Temperature Source Temporal Pulse Rate 88 Respiratory Rate 19 H Blood Pressure 134/68 H Blood Pressure Mean 90 Pulse Ox 92 80 92 Oxygen Delivery Method Room Air Room Air Nasal Cannula Oxygen Flow Rate (L/min) 2 08/13/24 22:45 08/13/24 23:47 Temperature Temperature Source Pulse Rate 88 85 Respiratory Rate 18 22 H Blood Pressure 120/63 148/78 H Blood Pressure Mean 82 101 Pulse Ox 96 96 Oxygen Delivery Method Nasal Cannula Nasal Cannula Oxygen Flow Rate (L/min) 2 2 MDM MDM MDM Narrative Medical decision making narrative: HISTORY OF PRESENT ILLNESS: Chief complaint: Back pain 79-year-old female present back pain is now resolved. Notes lower midsternal back pain that got worse after recent fall where she received an x-ray for. Shestates she has no bowel or bladder incontinence, no urinary retention, no loss of motor sensation in her legs. She notes pain in the flank area when asked to locate her pain. She denies vomiting. Denies chest pain or shortness of breath. Denies abdominal pain but does note some abdominal fullness. REVIEW OF SYSTEMS: Pertinent positives: Back pain, abdominal pain, flank pain Pertinent negatives: Vomiting, chest pain PHYSICAL EXAM: Nursing triage notes reviewed, Vital signs reviewed Constitutional: please see mdm HENT: MMM Eyes: Pupils equal round and reactive to light, Extraocular muscles intact Neck: No stridor, no JVD, full neck ROM Lungs: Clear to auscultation, No wheezing or rales. No increased work of breathing, no conversational dyspnea, no accessory muscle use, no nasal flaring. No respiratory distress noted Heart: Regular rate and rhythm, No murmurs, No rubs and No gallops, 2+ distal pulses (radial, femoral, posterior tibial) in all extremities Abdomen: Soft, there is no tenderness slight distention, rigidity, rebound or guarding, no obvious peritoneal signs, no palpable pulsatile abdominal masses, no auscultated abdominal bruit : No CVAT Extremities: No edema Neuro: Intact sensation L1-S1 dermatomal distributions. Intact 5/5 strength in hip flexion (T12-L3). Knee extension (L2-L4). Ankle dorsiflexion (L4-L5). Ankle plantar flexion (S1). Great toe extension (L5). 2+ patellar and AchillesDTRs. Skin: No rash or lesions noted MEDICAL DECISION MAKING: Chief Complaint: please see HPI External records reviewed: Reviewed prior imaging studies: Reviewed x-rays of lumbar spine from August 12, 2024 which showed no acute fracture Factors affecting care: Hypertension, anxiety, neurogenic bladder, Social determinants of health: none History obtained from others: Family Consults: Internal medicine (Dr. Denson) MDM Narrative: The patient was initially hemodynamically stable, afebrile and nontoxic- appearing. Exam without focal cardiopulmonary maladies. Abdomen was slightly distended but nontender to palpation I considered the following differential diagnosis: Intra-abdominal surgical pathology, nephrolithiasis, fractures location lumbar spine, pneumonia, ACS, arrhythmia, anemia, UTI, PE I obtained a broad lab and imaging workup that initially consisted of CT scan abdomen pelvis, CT scan lumbar spine, labs including troponin, EKG, urinalysis ALL IMAGES (IF OBTAINED) HAVE BEEN PERSONALLY REVIEWED AND INTERPRETED BY MYSELF. EKG with normal sinus rhythm, normal axis, normal intervals, no STEMI CBC without leukocytosis, severe anemia, no thrombocytopenia. BMP without evidence of significant electrolyte abnormalities, no anion gap, no acute kidneyinjury. Baseline CKD LFTs show no evidence of hepatobiliary pathology. High-sensitivity troponin is negative, no evidence of myocardial ischemia BNP within normal suggestive of no heart failure Urinalysis consistent with UTI I have personally reviewed the patient's chest x-ray. Chest x-ray is unremarkable for pulmonary edema, pneumothorax, pneumonia or focal cardiopulmonary abnormality. CT scan lumbar spine showed no evidence of obvious bony abnormality lumbar spine CT scan abdomen pelvis with no evidence of obvious intra-abdominal surgical pathology or left lithiasis During the patient's ED course she became hypoxic. She does note she has NAYA and wears oxygen at night. Her lungs were clear. At this point I ambulated thepatient to assess if she had an exertional hypoxia. She ambulates she desaturated to 82%Given exertional hypoxia add on a BNP, COVID flu RSV and CTA of the chest. Additional testing also was negative. Given exertional hypoxia admit the patient. Will also admit for UTI. The patient and/or family, caregivers express understanding. The patient and/orfamily, caregivers agrees with the plan. Shared decision making: I will have a discussion with the patient and or visitors regarding risk/benefits of further testing or admission. They will be made aware of of the risk/benefits inherent in this decision they will be given the opportunity to voice understanding. Total critical care time today provided was at least 0 minutes. This excludes separately billable procedures. Critical care time (if documented) is secondary to the patient having high probability of clinically significant/life threatening deterioration in the patient's condition which required my urgent intervention. Impression: 1. Back pain 2. UTI 3. NAYA 4. Exertional hypoxia Dispo: Admit to medical floor This note was generated with Synker dictation software. It may contain incorrectwords, spelling, and punctuation that were not noted in review of the chart prior to signing. Lab Data Labs: Laboratory Results - last 24 hr 08/13/24 08/13/24 20:40 21:37 WBC 8.9 RBC 4.25 Hgb 13.0 Hct 39.0 MCV 91.8 MCH 30.6 MCHC 33.3 RDW Std Deviation 42.6 RDW Coeff of Dionne 12.9 Plt Count 270 MPV 9.4 Sodium 136 Potassium 3.9 Chloride 102 Carbon Dioxide 21.7 Anion Gap 12 BUN 21 H Creatinine 1.27 H Estim Creat Clear Calc 37.10 L Est GFR (MDRD) Non-Af 42 L BUN/Creatinine Ratio 16.7 Glucose 123 H Calcium 8.8 Total Bilirubin 0.25 AST 21 ALT 10 Alkaline Phosphatase 100 Troponin T High Sens 22 H NT pro BNP II 236 Total Protein 6.4 Albumin 4.0 Globulin 2.4 Albumin/Globulin Ratio 1.6 Urine Color Yellow Urine Clarity Sl. Cloudy Urine pH 5.0 Ur Specific [place] 1.025 Urine Protein 30 H Urine Glucose (UA) Normal Urine Ketones 5 H Urine Occult Blood 10 H Urine Nitrite Positive H Urine Bilirubin Negative Urine Urobilinogen Normal Ur Leukocyte Esterase 500 H Urine RBC 0-5 SEEN Urine WBC 25-50 SEEN Ur Squamous Epith Cells 0 SEEN Urine Bacteria 3+ Urine Mucus 0 SEEN Radiography Diagnostic Testing: Clinical Impression(s) from Imaging Studies Abdomen/Pelvis CT 08/13/24 21:28 IMPRESSION: No acute findings in the abdomen and pelvis. Reading Location: [facility] Lumbar Spine CT 08/13/24 21:28 IMPRESSION: No acute fracture or traumatic subluxation. Degenerative changes, most prominent at L3-L4. Reading Location: [facility] Chest X-Ray 08/13/24 21:48 IMPRESSION: No Acute Findings. Reading Location: [facility] Discharge Plan Triage Chief Complaint: Back ED Provider: Haider Hinojosa Dx/Rx/DC Orders Prescriptions: No Action famotidine 40 mg Tablet 40 mg PO QHS pantoprazole [address] For Susp In Packet 40 mg PO DAILY mirabegron [Myrbetriq] 50 mg Tablet Extended Release 24 Hr 50 mg PO DAILY ezetimibe 10 mg tablet 10 mg PO DAILY albuterol sulfate 90 mcg/actuation HFA aerosol inhaler 2 inh inhalation Q4H PRN (Reason: SOB,Wheezing) fluoxetine [Prozac] 20 mg capsule 20 mg PO DAILY Qty: 30 0RF carvedilol 6.25 mg Tablet 6.25 mg PO BIDCM Qty: 60 0RF acetaminophen 500 mg Tablet 1,000 mg PO Q8 Qty: 180 0RF levothyroxine 50 mcg Tablet 50 mcg PO DAILY@0600 Qty: 30 0RF ipratropium bromide 42 mcg (0.06 %) [place],Non-Aerosol 2 spray NASAL TID Qty: 1 0RF solifenacin 10 mg tablet 10 mg PO DAILY polyethylene glycol 3350 [Miralax] 17 gram/dose powder 17 g PO BID PRN (Reason: constipation) Primary Care Provider: Dinah Melgar Referrals: Dinah Melgar MD [Primary Care Provider] - Print Language: Italian What to do if you have Problems For any increased pain, shortness of breath, bleeding, nausea or vomiting, chestpain, or any unexpected problems, contact your Primary Care Provider. Call [facility] ([phone]) or report to the closest Emergency Room. Call 911 if necessary. 08/14/24 0059 <Electronically signed by Haider Hinojosa DO> Cosigner Signature (if applicable): CC: Dr. Dinah Melgar MD ~ Signed [facility] Work Phone: [phone] 620-287504-06-2025 Radiology Diagnostic study note [facility] Imaging Services [address] [place], [place] [address] Lumbar Spine 2 or 3 Views MR#: [id number] Acct: [id number] Name: GEORGINA SEGURA Rep #: [id number] : 1945 F 79 From: Maile Alex MD PCP: Dr. Dinah Melgar MD Status: REG E R Study:Lumbar Spine 2 or 3 Views Date of Exam: 08/12/24 Exam# [id number] Ordering Dr: Nic Chicas DO PROCEDURE: LUMBAR SPINE 2 OR 3 VIEWS 08/12/2024 REASON FOR EXAM: INJURY/PAIN TECHNIQUE: 3 view(s) of the lumbar spine COMPARISON: None. FINDINGS: Vertebrae: The vertebral body heights are maintained. No acute fracture. Discs: Mild-moderate multilevel disc space narrowing. Alignment: Mild leftward curvature of the lumbar spine. Grade 1 retrolisthesis of L3 onto L4, and L4 onto L5. no traumatic listhesis. Other: Calcific plaque of the abdominal aorta. Partially visualized battery pack and stimulator overlying the sacrum. The visualized SI joints are maintained. RAD/Lumbar Spine 2 or 3 Views IMPRESSION: Degenerative changes. No acute fracture. Reading Location: [id number] CC: Dr. Nic Chicas DO; Dr. Dinah Melgar MD ~ 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Signed [facility]04-01-2025 Telephone encounter Note* Telephone Encounter - Glenis Truong MA - 08/07/2024 10:56 AM EDT Patient informed. Will call back if decides on ortho. Glenis Truong MA [facility]04-01-2025 Miscellaneous Notes* Telephone Encounter - Glenis Truong MA - 08/07/2024 10:56 AM EDT Patient informed. Will call back if decides on ortho. Glenis Truong MA * Telephone Encounter - Glenis Truong MA - 08/07/2024 10:54 AM EDT ----- Message from Dinah Melgar MD sent at 08/06/2024 10:32 AM EDT ----- Let patient know below. Never picked up her my chart message: Georgina: Xrays show significant arthritis. We can have you see orthopedics if you are willing. Let me know. Dr Melgar [facility] Telephone encounter Note * Telephone Encounter - Glenis Truong MA - 08/07/2024 10:54 AM EDT ----- Message from Dinah Melgar MD sent at 08/06/2024 10:32 AM EDT ----- Let patient know below. Never picked up her my chart message: Georgina: Xrays show significant arthritis. We can have you see orthopedics if you are willing. Let me know. Dr Melgar [facility]03-24-2025 History of Present illness Narrative* William Cohen, RT(R) - 07/30/2024 10:50 AM EDT Radiology Service Progress Note PATIENT NAME: Georgina Segura DATE OF SERVICE: July 30, 2024 TIME: 11:14 AM PATIENT IDENTITY VERIFICATION COMPLETED USING TWO (2) IDENTIFIERS: Name and Date of confirmedby patient verbally. FALL SCREENING: Has the patient had 2 falls in the last year or 1 fall with injury or currently using an Ambulatory Assistive Device (Walker, Cane, Wheelchair, Crutches, etc.)? No PATIENT GENDER DATA: Assigned female at . status: : No status:NO. PATIENT RELEVANT IMPLANT DATA REVIEWED: Not Applicable PATIENT PRESENTS WITH AN IMPLANTABLE OR ATTACHED [facility] DIRECTOR: No RADIOLOGY DEPARTMENT: General X-ray: Exam(s) Completed: Lower Extremity X- Ray(s): Knee, AP / Lat / Tunne / Merchant Bilateral and Wt. Bearing PERIPHERAL IV DATA: Not applicable SIGNED BY: JILLIAN Zacarias) July 30, 2024 11:14 AM [facility] NoteHNO ID: [id number] Author: WILLIAM COHEN RT(R) Service: ? Author Type: Technologist Type: Progress Notes Filed: 07/30/2024 11:27 Note Text: Radiology Service Progress Note PATIENT NAME: Georgina Segura DATE OF SERVICE: July 30, 2024 TIME: 11:14 AM PATIENT IDENTITY VERIFICATION COMPLETED USING TWO (2) IDENTIFIERS: Name and Date of confirmed by patient verbally. FALL SCREENING: Has the patient had 2 falls in the last year or 1 fall with injury or currently using an Ambulatory Assistive Device (Walker, Cane, Wheelchair, Crutches, etc.)? No PATIENT GENDER DATA: Assigned female at . status: : No status: NO. PATIENT RELEVANT IMPLANT DATA REVIEWED: Not Applicable PATIENT PRESENTS WITH AN IMPLANTABLE OR ATTACHED [facility] DIRECTOR: No RADIOLOGY DEPARTMENT: General X-ray: Exam(s) Completed: Lower Extremity X-Ray(s): Knee, AP / Lat / Tunne / Merchant Bilateral and Wt. Bearing PERIPHERAL IV DATA: Not applicable SIGNED BY: JILLIAN Zacarias) July 30, 2024 11:14 [facility]03-24-2025 NoteHNO ID: [id number] Author: DINAH MELGAR MD Service: ? Author Type: Physician Type: Progress Notes Filed: 07/30/2024 10:34 Note Text: Patient presents with: Follow Up HPI: Patient presents today for office visit for routine follow up. Had a fall a couple months ago. While walking up steps into house she tripped and fell. Hit her face. Caused bruising to left eye. Ambulates with cane when outside of home. Her knees still bother her. Still wearing neck brace. Seeing neuro. Inquiring about driving. Advised to wait for now. She recently could not remember what happened to her neck. Occasionally will talk about things repeatedly. No obvious other memory issues. They do not think it is a big issue now. Red flags for re-assessment reviewed with patient in detail. Denies chest pain and shortness of breath. Has edema to B/L feet and ankles. Left ankle/calf is much worse. She is not wearing the compression hose as we discussed Is actually down three lbs No chest pain or shortness of breath. Has had edema dating back at least 10 years. Has had duplexes in the past. Shoulder is not bad. Note was copied and pasted, without alteration from previous ov: Complains of right shoulder pain X 5 days. Daughter thinks it may be longer. No injury. Pain is constant. Refers to It really hurts Hx of rotator cuff repair same side No new neck pain. No injury. Pain is over the posterior shoulder. Used ice and heat. No numbness or tingling. She did see neurosurgery on 04/30. They are considering stopping her wearing her collar. Just had xrays done recently Did have a fall off of a chair at [facility] but no injuries since. Did not bother her after. Also having issues with worsening chronic edema. Is not moving around as much. Has been more sedentary. No chest pain with exertion. Drinking coffee etc again. She recently had some constipation She had a panic attack. Was short of breath and uncomfortable in trunk. Given mag citrate and enema Once she got her bowels better, she was fine. No redness or soreness in her legs. Not wearing compression stockings. The swelling goes down at night. Latest Ref Rng 05/28/2024 WBC 3.70 - 11.00 k/uL 10.01 RBC 3.90 - 5.20 m/uL 4.52 Hemoglobin 11.5 - 15.5 g/dL 14.0 Hematocrit 36.0 - 46.0 % 43.0 MCV 80.0 - 100.0 fL 95.1 MCH 26.0 - 34.0 pg 31.0 MCHC 30.5 - 36.0 g/dL 32.6 RDW-CV 11.5 - 15.0 % 12.6 Platelet Count 150 - 400 k/uL 353 MPV 9.0 - 12.7 fL 10.4 Neut% % 61.6 Abs Neut (ANC) 1.45 - 7.50 k/uL 6.17 Lymph% % 29.1 Abs Lymph 1.00 - 4.00 k/uL 2.91 [place]% % 6.6 Abs [place] <0.87 k/uL 0.66 Eosin% % 1.6 Abs Eosin <0.46 k/uL 0.16 Baso% % 0.8 Abs Baso <0.11 k/uL 0.08 Immature Gran % % 0.3 IMMATURE GRANS (ABS) <0.10 k/uL 0.03 NRBC /100 WBC 0.0 Absolute nRBC <0.01 k/uL <0.01 DTYPE Auto Protein, Total 6.3 - 8.0 g/dL 7.0 Albumin 3.9 - 4.9 g/dL 4.8 Calcium 8.5 - 10.2 mg/dL 9.7 Bilirubin, Total 0.2 - 1.3 mg/dL <0.2 (L) Alkaline Phosphatase 34 - 123 U/L 94 AST 13 - 35 U/L 19 ALT 7 - 38 U/L 13 Glucose 74 - 99 mg/dL 111 (H) BUN 7 - 21 mg/dL 26 (H) Creatinine 0.58 - 0.96 mg/dL 1.12 (H) Sodium 136 - 144 mmol/L 139 Potassium 3.7 - 5.1 mmol/L 4.3 Chloride 98 - 107 mmol/L 102 CO2 22 - 30 mmol/L 24 Anion Gap 8 - 15 mmol/L 13 eGFR >=60 mL/min/1.73m? 50 (L) TSH 0.270 - 4.200 mIU/L 2.170 Legend: (L) Low (H) High IMPRESSION: Findings are suggestive of degenerative changes in the right shoulder and rotator cuff arthroplasty. MEDICATIONS: Current Outpatient Medications Medication Sig famotidine (PEPCID) 40 mg tablet Take 1 tablet by mouth once daily. ipratropium bromide (ATROVENT) 42 mcg (0.06 %) nasal spray Use 2 Sprays in the nose three times a day. mirabegron (MYRBETRIQ) 50 mg Tb24 Take 1 tablet by mouth once daily. pantoprazole DR (PROTONIX) 40 mg tablet Take 1 tablet by mouth once daily. levothyroxine (SYNTHROID) 50 mcg tablet TAKE 1 TABLET BY MOUTH ONCE DAILY AT 6 AM carvedilol (COREG) 6.25 mg tablet Take 1 tablet by mouth two times a day with meals. FLUoxetine (PROZAC) 20 mg capsule Take 1 capsule by mouth every afternoon. ezetimibe (ZETIA) 10 mg tablet Take 1 tablet by mouth once daily. albuterol HFA (PROVENTIL HFA, VENTOLIN HFA) 90 mcg/actuation inhaler Inhale 2 Puffs as instructed every 4 hours as needed. diclofenac (VOLTAREN ARTHRITIS PAIN) 1 % topical gel Apply 2 g to affected area four times daily. (Patient not taking: Reported on 07/30/2024) cyclobenzaprine (FLEXERIL) 5 mg tablet Take 1 tablet by mouth three times a day. (Patient not taking: Reported on 07/30/2024) No current facility-administered medications for this visit. ALLERGIES: ALLERGIES Allergen Reactions Vioxx [Rofecoxib] Unknown Has used nsaids Zocor [Simvastatin] Other: See Comments elevated CPK PAST MEDICAL HISTORY Diagnosis Date Arthritis of both hands 05/05/2016 Asthma 03/11/2010 Cervi (more content not included)...[facility]03-24-2025 History of Present illness Narrative* Dinah Melgar MD - 07/30/2024 9:52 AM EDT Patient presents with: Follow Up HPI: Patient presents today for office visit for routine follow up. Had a fall a couple months ago. While walking up steps into house she tripped and fell. Hit her face. Caused bruising to left eye. Ambulates with cane when outside of home. Her knees still bother her. Still wearing neck brace. Seeing neuro. Inquiring about driving. Advised to wait for now. She recently could not remember what happened to her neck. Occasionally will talk about things repeatedly. No obvious other memory issues. They do not think it is a big issue now. Red flags for re-assessment reviewed with patient in detail. Denies chest pain and shortness of breath. Has edema to B/L feet and ankles. Left ankle/calf is much worse. She is not wearing the compression hose as we discussed Is actually down three lbs No chest pain or shortness of breath. Has had edema dating back at least 10 years. Has had duplexes in the past. Shoulder is not bad. Note was copied and pasted, without alteration from previous ov: Complains of right shoulder pain X 5 days. Daughter thinks it may be longer. No injury. Pain is constant. Refers to It really hurts Hx of rotator cuff repair same side No new neck pain. No injury. Pain is over the posterior shoulder. Used ice and heat. No numbness or tingling. She did see neurosurgery on 04/30. They are considering stopping her wearing her collar. Just had xrays done recently Did have a fall off of a chair at [facility] but no injuries since. Did not bother her after. Also having issues with worsening chronic edema. Is not moving around as much. Has been more sedentary. No chest pain with exertion. Drinking coffee etc again. She recently had some constipation She had a panic attack. Was short of breath and uncomfortable in trunk. Given mag citrate and enema Once she got her bowels better, she was fine. No redness or soreness in her legs. Not wearing compression stockings. The swelling goes down at night. Latest Ref [facility] 05/28/2024 WBC 3.70 - 11.00 k/uL 10.01 RBC 3.90 - 5.20 m/uL 4.52 Hemoglobin 11.5 - 15.5 g/dL 14.0 Hematocrit 36.0 - 46.0 % 43.0 MCV 80.0 - 100.0 fL 95.1 MCH 26.0 - 34.0 pg 31.0 MCHC 30.5 - 36.0 g/dL 32.6 RDW-CV 11.5 - 15.0 % 12.6 Platelet Count 150 - 400 k/uL 353 MPV 9.0 - 12.7 fL 10.4 Neut% % 61.6 Abs Neut (ANC) 1.45 - 7.50 k/uL 6.17 Lymph% % 29.1 Abs Lymph 1.00 - 4.00 k/uL 2.91 [place]% % 6.6 Abs [place] <0.87 k/uL 0.66 Eosin% % 1.6 Abs Eosin <0.46 k/uL 0.16 Baso% % 0.8 Abs Baso <0.11 k/uL 0.08 Immature Gran % % 0.3 IMMATURE GRANS (ABS) <0.10 k/uL 0.03 NRBC /100 WBC 0.0 Absolute nRBC <0.01 k/uL <0.01 DTYPE Auto Protein, Total 6.3 - 8.0 g/dL 7.0 Albumin 3.9 - 4.9 g/dL 4.8 Calcium 8.5 - 10.2 mg/dL 9.7 Bilirubin, Total 0.2 - 1.3 mg/dL <0.2 (L) Alkaline Phosphatase 34 - 123 U/L 94 AST 13 - 35 U/L 19 ALT 7 - 38 U/L 13 Glucose 74 - 99 mg/dL 111 (H) BUN 7 - 21 mg/dL 26 (H) Creatinine 0.58 - 0.96 mg/dL 1.12 (H) Sodium 136 - 144 mmol/L 139 Potassium 3.7 - 5.1 mmol/L 4.3 Chloride 98 - 107 mmol/L 102 CO2 22 - 30 mmol/L 24 Anion Gap 8 - 15 mmol/L 13 eGFR >=60 mL/min/1.73m 50 (L) TSH 0.270 - 4.200 mIU/L 2.170 Legend: (L) Low (H) High IMPRESSION: Findings are suggestive of degenerative changes in the right shoulder and rotator cuff arthroplasty. MEDICATIONS: Current Outpatient Medications Medication Sig famotidine (PEPCID) 40 mg tablet Take 1 tablet by mouth once daily. ipratropium bromide (ATROVENT) 42 mcg (0.06 %) nasal spray Use 2 Sprays in the nose three times a day. mirabegron (MYRBETRIQ) 50 mg Tb24 Take 1 tablet by mouth once daily. pantoprazole DR (PROTONIX) 40 mg tablet Take 1 tablet by mouth once daily. levothyroxine (SYNTHROID) 50 mcg tablet TAKE 1 TABLET BY MOUTH ONCE DAILY AT 6 AM carvedilol (COREG) 6.25 mg tablet Take 1 tablet by mouth two times a day with meals. FLUoxetine (PROZAC) 20 mg capsule Take 1 capsule by mouth every afternoon. ezetimibe (ZETIA) 10 mg tablet Take 1 tablet by mouth once daily. albuterol HFA (PROVENTIL HFA, VENTOLIN HFA) 90 mcg/actuation inhaler Inhale 2 Puffs as instructed every 4 hours as needed. diclofenac (VOLTAREN ARTHRITIS PAIN) 1 % topical gel Apply 2 g to affected area four times daily. (Patient not taking: Reported on 07/30/2024) cyclobenzaprine (FLEXERIL) 5 mg tablet Take 1 tablet by mouth three times a day. (Patient not taking: Reported on 07/30/2024) No current facility-administered medications for this visit. ALLERGIES: ALLERGIES Allergen Reactions Vioxx [Rofecoxib] Unknown Has used nsaids Zocor [Simvastatin] Other: See Comments elevated CPK PAST MEDICAL HISTORY Diagnosis Date Arthritis of both hands 05/05/2016 Asthma 03/11/2010 Cervical disc disease 06/06/2013 Dementia without behavioral disturbance (HCC) 10/11/2022 Depression, recurrent ([facility]) 10/11/2022 Diarrhea Diffuse cystic mastopathy 11/03/2005 Elevated CK 04/26/2012 Esophageal reflux 11/03/2005 Fracture of skull ([facility]) 02/16/2023 Hyperlipidemia 04/26/2012 Hypothyroidism, acquired 08/04/2022 Impingement syndrome of right shoulder 10/11/2016 Irritable bowel syndrome with diarrhea 05/31/2018 Mild intermittent asthma, uncomplicated 11/23/2022 Neurogenic bladder, NOS Odontoid fracture ([facility]) 08/20/2023 Other and unspecified hyperlipidemia Other forms of migraine Overactive bladder 02/12/2009 Primary localized osteoarthrosis, lower leg Rotator cuff syndrome 02/12/2009 Situational depression 05/31/2018 Statin intolerance 07/03/2018 Supraspinatus tendonitis 12/06/2012 Tear of biceps tendon 05/18/2017 Unspecified sleep apnea Urinary incontinence 03/11/2010 PAST SURGICAL HISTORY Procedure Laterality Date ADENOIDECTOMY PRIMARY <AGE 10 Adenoidectomy APPENDECTOMY COLONOSCOPY W/BIOPSY SINGLE/MULTIPLE 06/21/11 DILATION & CURETTAGE DX&/THER NONOBSTETRIC Dilation & curettage LAPAROSCOPY SURG CHOLECYSTECTOMY 07-15-06 Cholecystectomy, lap PAST SURGICAL HISTORY OF N/A 2017 urinary implant device TONSILLECTOMY PRIMARY/SECONDARY <AGE 10 Tonsillectomy VAGINAL HYSTERECTOMY UTERUS 250 GM/< Hysterectomy, vaginal FAMILY HISTORY Problem Relation Age of Onset other (dementia [Other]) Father Heart Father Tremor Father Heart Mother Heart Brother Tremor Daughter Tremor Son Social History Tobacco Use Smoking status: Never Smokeless tobacco: Never Substance Use Topics Alcohol use: No Drug use: No Reviewed current medications, allergies, past medical history, surgical history, family history andsocial history today. REVIEW OF SYSTEMS All other reviewed and negative other than HPI. HEALTH MAINTENANCE: Reviewed health maintenance issues today and recommended the following in detail. Advance Directive Discussion due on 05/09/2024 VITALS: BP 122/70 Pulse 92 Ht 160 cm (5' 3) Wt 89.4 kg (197 lb) SpO2 96% BMI 34.90 kg/m Last 4 Encounter Wt Readings: Date: Wt: 07/30/2024 89.4 kg (197 lb) 07/23/2024 91 kg (200 lb 9.9 oz) 05/28/2024 88.5 kg (195 lb) 04/30/2024 86.6 kg (191 lb) PHYSICAL EXAMINATION: General appearance: Well appearing, alert, in no acute distress, well-hydrated, well nourished. Skin: has multiple skin lesions on her arms. ? Solar keratosis. Lungs: Lungs clear to auscultation. No wheezing, rhonchi, rales Heart: RRR without murmur, gallop, or rubs. No ectopy Abdomen: Normal abdominal exam, Abdomen soft, non-tender. Bowel sounds normal. No masses, organomegaly Extremities: one plus chronic edema. No redness or warmth. Musculoskeletal: No joint swelling, deformity, or tenderness ASSESSMENT/PLAN: 1. Balance disorder - ICD9: 781.99, ICD10: R26.89 (primary diagnosis) - has done therapy. Continue following with neurosurgery. 2. Hyperlipidemia LDL goal <100 - ICD9: 272.4, ICD10: E78.5 - EZETIMIBE 10 MG TABLET 3. Statin intolerance - ICD9: 995.27, ICD10: Z78.9 - EZETIMIBE 10 MG TABLET 4. Uncomplicated asthma, unspecified asthma severity, unspecified whether persistent - ICD9: 493.90, ICD10: J45.909 - stable. 5. Gastroesophageal reflux disease without esophagitis - ICD9: 530.81, ICD10: K21.9 - refilled meds. - FAMOTIDINE 40 MG TABLET - PANTOPRAZOLE 40 MG TABLET,DELAYED RELEASE 6. Overactive bladder - ICD9: 596.51, ICD10: N32.81 - Continue current medications. Notify us if any difficulties are noted. - MIRABEGRON ER 50 MG TABLET,EXTENDED RELEASE 24 HR 7. Hypothyroidism, acquired - ICD9: 244.9, ICD10: E03.9 - stable. - LEVOTHYROXINE 50 MCG TABLET 8. Closed odontoid fracture with routine healing - ICD9: V54.17, ICD10: S12.100D - doing well. 9. Depression, recurrent (HCC) - ICD9: 296.30, ICD10: F33.9 - stable. - FLUOXETINE 20 MG CAPSULE 10. Obesity, Class I, BMI 30-34.9 - ICD9: 278.00, ICD10: E66.811 Watch diet. 11. Falls frequently - ICD9: V15.88, ICD10: R29.6 - continue to encourage safety. Rec against driving. 12. Chronic pain of both knees - ICD9: 719.46, 338.29, ICD10: M25.561, M25.562, G89.29 - get xrays 13. Primary hypertension - ICD9: 401.9, ICD10: I10 - Controlled - Continue current medications - CARVEDILOL 6.25 MG TABLET 14. Knee pain, unspecified chronicity, unspecified laterality - ICD9: 719.46, ICD10: M25.569 - XR KNEE GENERAL 4V AP BOTH/PA BOTH/LAT/MERC BILATERAL 15. Skin lesion - ICD9: 709.9, ICD10: L98.9 - do not pick lesions since it is masking them for evaluation. - CONSULT TO DERMATOLOGY Dinah Melgar RTO in six months and prn. documented in [facility] History of Present illness Narrative* Guillaume Delgado MD, PhD - 07/23/2024 9:45 AM EDT NEUROSURGERY FOLLOW UP OFFICE NOTE Guillaume Delgado MD, PhD Date of visit: July 23, 2024 Patient Name: Ms.Betty Ricky Segura Date of : 1945 Current Age: [age] year old Sex: female MRN/E# [id number] Last Office Visit: 04/30/2024 Chief Complaint: Patient presents with: Established Patient SUBJECTIVE: HPI The patient presented to [facility] ED on 08/20/2023 as a transfer from an outside hospital follow a fall.She noted she hit her head on the wall. Outside imaging demonstrated a type 2 odontoid fracture (acute vs chronic). She reported multiple falls recently and in the past. She noted 2-3 weeks prior, she fell and endorsed neck pain but did not seek medical attention. No surgical interventions were required at that time. She was to wear a [place] collar at all times. She was to obtain a bone stimulatoroutpatient. She was to follow up in 1 month with repeat imaging. At her last visit on 09/16/2023 she stated she had been doing okay since discharge. She reported midline posterior cervical pain. She denied any radicular symptoms. Denied paresthesia. Denied any weakness. Denied any further falls, loss of bowel or bladder. She had since been using a cane for extra s upport. She was complaint with her cervical collar. She had been using ultram with relief. She was receiving home therapy. She did not receive any information about her bone growth stimulator. There was significant bone loss at the neck of the odontoid process that was caused to believe thatshe likely had a longstanding fracture in that location. It was difficult to tell thought it may beacute. Her xray's did not have any concerns with respect to odontoid displacement or other issues. She was interested in the bone growth stimulator. It was recommended that she follow up in 3 months with repeat imaging. At her last visit on 12/19/2023 she stated she had continual posterior cervical pain. She denied anyradicular symptoms. Patient stated over the last week or so she had noticed left hand numbness. Shereported using Tylenol as needed for the pain. She denied dexterity issues. She did not get her x-rays prior to her visit. She denied any recent falls, numbness, tingling or bowel/ bladder incontinence. Patient using a cane for assistance with ambulation. Patient still had her [place] collar on and stated she wanted it off. She noted she continued with her bone growth stimulator. There was concern for a new upper motor neuron finding that was not perviously documented. She was to obtain a CT myelogram of the cervical spine as she could not obtain an MRI due to her bladder stimulator. She was to follow up once completed. At her last visit on 02/01/2024 she stated she continued with very little cervical pain and headaches, but stated the headaches were unrelated to her cervical spine. Denied any radicular symptoms. Continued with left hand numbness. She continued to be off balance and unsteady with use of a cane, but reported this was improving. Denied any falls, loss of bowel or bladder. She had been complaint with her cervical collar. Noted she continued with her bone growth stimulator. 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 This wouldalmost completely remove her ability to move her neck. The goal of surgery be to arrest neurologic p rogression and not necessarily to achieve neurologic improvement. In this context I think that continuing to wear the cervical collar is the less morbid of the [address] myelogram does not show evidence of healing of her C1-2 fracture we did articulate a plan to continue use of her bone growth stimulator given that there is little downside to doing so. It was recommended that at that time, she continue with conservative treatment and to follow up in 3 months. At her last visit on 04/30/2024 she stated she had been doing well. She denied any cervical pain orheadaches. Denied any radicular pain. Denied paresthesia. Noted taking tylenol as needed. Reported a fall the day before where she slid out of a chair onto her bottom. Denied any injuries. Denied feeling off balance and unsteady, but continued with use of cane. She had been compliant with her cervical collar at all times and wears her bone growth stimulator daily. She was having no evident motion at the site of her odontoid fracture on flexion-extension films. This could reflect fibrous union. It was recommended that she continue with her collar and bone growth stimulator for another 3 months. If her xray's looked good, then we may consider a collar wean. She was to follow up in 3 months with repeat imaging, prompting her visit today. Today she states she has been doing well since her last visit. She denies any cervical pain. Deniesradiation down her arms. Denies weakness, paresthesia, loss of bowel or bladder. Has use of cane for assistance with ambulation. Notes left wrist pain that recently started. Notes falls but unsure ofhow recent her last one was. She reports she has had her collar off more than the recommended 3 hour s a day. She continues with her bone growth stimulator which she reports wearing for 4 hours a day. She presents for imaging review, evaluation and plan of care. Symptoms: use of a cane. Left wrist pain. Smoker: denies Diabetic: denies Anticoagulants / Antiplatelets: denies Occupation: [employer] PREVIOUS CONSERVATIVE TREATMENTS: [place] collar Ultram Bone growth stimulator. PREVIOUS SURGERY: None PAIN EVALUATION No data found in the last 1 encounters. PAST MEDICAL HISTORY Diagnosis Date Arthritis of both hands 05/05/2016 Asthma 03/11/2010 Cervical disc disease 06/06/2013 Dementia without behavioral disturbance (HCC) 10/11/2022 Depression, recurrent ([facility]) 10/11/2022 Diarrhea Diffuse cystic mastopathy 11/03/2005 Elevated CK 04/26/2012 Esophageal reflux 11/03/2005 Fracture of skull ([facility]) 02/16/2023 Hyperlipidemia 04/26/2012 Hypothyroidism, acquired 08/04/2022 Impingement syndrome of right shoulder 10/11/2016 Irritable bowel syndrome with diarrhea 05/31/2018 Mild intermittent asthma, uncomplicated 11/23/2022 Neurogenic bladder, NOS Odontoid fracture ([facility]) 08/20/2023 Other and unspecified hyperlipidemia Other forms of migraine Overactive bladder 02/12/2009 Primary localized osteoarthrosis, lower leg Rotator cuff syndrome 02/12/2009 Situational depression 05/31/2018 Statin intolerance 07/03/2018 Supraspinatus tendonitis 12/06/2012 Tear of biceps tendon 05/18/2017 Unspecified sleep apnea Urinary incontinence 03/11/2010 PAST SURGICAL HISTORY Procedure Laterality Date ADENOIDECTOMY PRIMARY <AGE 10 Adenoidectomy APPENDECTOMY COLONOSCOPY W/BIOPSY SINGLE/MULTIPLE 06/21/11 DILATION & CURETTAGE DX&/THER NONOBSTETRIC Dilation & curettage LAPAROSCOPY SURG CHOLECYSTECTOMY 07-15-06 Cholecystectomy, lap PAST SURGICAL HISTORY OF N/A 2017 urinary implant device TONSILLECTOMY PRIMARY/SECONDARY <AGE 10 Tonsillectomy VAGINAL HYSTERECTOMY UTERUS 250 GM/< Hysterectomy, vaginal FAMILY HISTORY Problem Relation Age of Onset other (dementia [Other]) Father Heart Father Tremor Father Heart Mother Heart Brother Tremor Daughter Tremor Son ALLERGIES Allergen Reactions Vioxx [Rofecoxib] Unknown Has used nsaids Zocor [Simvastatin] Other: See Comments elevated CPK Current Outpatient Medications Medication Sig Dispense Refill diclofenac (VOLTAREN ARTHRITIS PAIN) 1 % topical gel Apply 2 g to affected area four times daily. 50 g 0 famotidine (PEPCID) 40 mg tablet Take 1 tablet by mouth once daily. 90 tablet 1 ipratropium bromide (ATROVENT) 42 mcg (0.06 %) nasal spray Use 2 Sprays in the nose three times a day. mirabegron (MYRBETRIQ) 50 mg Tb24 Take 1 tablet by mouth once daily. [address] (PROTONIX) 40 mg tablet Take 1 tablet by mouth once daily. 90 tablet 3 levothyroxine (SYNTHROID) 50 mcg tablet TAKE 1 TABLET BY MOUTH ONCE DAILY AT 6 AM 90 tablet 3 carvedilol (COREG) 6.25 mg tablet Take 1 tablet by mouth two times a day with meals. 180 tablet 3 FLUoxetine (PROZAC) 20 mg capsule Take 1 capsule by mouth every afternoon. 90 capsule 3 ezetimibe (ZETIA) 10 mg tablet Take 1 tablet by mouth once daily. 90 tablet 3 albuterol HFA (PROVENTIL HFA, VENTOLIN HFA) 90 mcg/actuation inhaler Inhale 2 Puffs as instructed every 4 hours as needed. 18 g 3 cyclobenzaprine (FLEXERIL) 5 mg tablet Take 1 tablet by mouth three times a day. 20 tablet 0 No current facility-administered medications for this visit. REVIEW OF SYSTEMS Review of Systems Constitutional: Negative for chills, fatigue and fever. HENT: Negative for congestion and sore throat. Eyes: Negative for discharge, itching and visual disturbance. Respiratory: Negative for cough and shortness of breath. Cardiovascular: Negative for chest pain and palpitations. Gastrointestinal: Negative for constipation, diarrhea, nausea and vomiting. Endocrine: Negative for cold intolerance and heat intolerance. Genitourinary: Negative for difficulty urinating, frequency and urgency. Musculoskeletal: Positive for gait problem. Negative for back pain, neck pain and neck stiffness. Skin: Negative for rash and wound. Allergic/Immunologic: Negative for environmental allergies and food allergies. Neurological: Negative for dizziness, weakness, light-headedness, numbness and headaches. Hematological: Does not bruise/bleed easily. Psychiatric/Behavioral: Negative for agitation. The patient is not nervous/anxious. Neck: (-) neck pain, (+) crunching sensation Musculoskeletal: (+) hand soreness Neurological: (-) arm numbness, (-) arm weakness OBJECTIVE: BP 129/84 Pulse 84 Resp 16 Wt 200 lb 9.9 oz (91.0kg) SpO2 94% Physical Exam General: No acute distress. 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 Back: Mild crepitus with cervical range of motion. Neuro: No numbness in hands bilaterally. On my examination today Georgina had no neurologic abnormalities in her arms and other strength or sensation on either side. I removed her collar and she did not have no where the pain is she moves through neck range of motion although she did have approximately a 50% reduction globally in her neck movement. Data Review IMAGING STUDIES: XR Cervical 07/23/2024: in process Assessment: Georgina is an 79-year-old female presenting for follow-up on neck fracture. Georgina has been using a bone stimulator for over six months, four hours daily, to aid in healing a neck fracture. She has alsobeen wearing a neck collar for an extended period and expresses a desire to discontinue its use. She does not report any neck pain, arm numbness, or weakness. 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 She has now been using a bone growth stimulator for almost a year. Plan: 1. Closed odontoid fracture, sequela (S12.100S) - Patient has been using a bone stimulator for over 6 months, 4 hours daily. - Recent X-rays show signs of healing, though a fracture is still visible. - No neck pain, arm numbness, or weakness reported; physical exam shows no tenderness in the neck and normal strength and sensation in the upper extremities. - Initiated a gradual weaning from the cervical collar over the next month: - Week 1: Remove collar for a few hours daily during quiet activities. - Week 2: Wear collar about half the time. - Week 3: Wear collar only 1-2 hours daily during active periods. - Scheduled a CT scan at [facility] at the end of the month to assess healing progress. - Follow-up appointment in one month to review CT scan results and determine further management. - Gradually wean off the collar over the next month: - Week 1: Remove the collar for a couple of hours each day during quiet activities. - Week 2: Wear the collar about half the time. - Week 3: Wear the collar only an hour or two a day when up and active. - Week 4: Aim to be out of the collar completely, but go at your own pace if needed. - Schedule a CAT scan at any [facility] facility at the end of the month to assess healing progress. - Next follow-up appointment in one month. Attestation: The following portions of the patient's history were reviewed, confirmed, and updated as necessary: allergies, current medications, past family history, past medical history, past socialhistory, past surgical history, problem list, HPI, and ROS obtained by others. Some elements may be copied from a previous office note and have been reviewed/updated where appropriate. All portions reflect current medical decision making from today. The clinical and radiographic findings as well as the risks, benefits and alternatives of treatmenthave been reviewed in detail with the patient. The patient was advised to call the office if symptoms worsen or new symptoms develop. The patient expressed understanding and is in agreement with plan. Guillaume Delgado MD, PhD This note was partially generated using Synker voice recognition system, and there may be some incorrect words, spellings, and punctuation that were not noted in checking the note before saving. documented in this encounterDet[facility]25 NoteHNO ID: [id number] Author: GUILLAUME DELGADO MD, PhD Service: ? Author Type: Physician Type: Progress Notes Filed: 07/23/2024 10:18 Note Text: NEUROSURGERY FOLLOW UP OFFICE NOTE Guillaume Delgado MD, PhD Date of visit: July 23, 2024 Patient Name: Ms.Betty Ricky Segura Date of : 1945 Current Age: [age] year old Sex: female MRN/E# [id number] Last Office Visit: 04/30/2024 Chief Complaint: Patient presents with: Established Patient SUBJECTIVE: HPI The patient presented to [facility] ED on 08/20/2023 as a transfer from an outside hospital follow a fall. She noted she hit her head on the wall. Outside imaging demonstrated a type 2 odontoid fracture (acute vs chronic). She reported multiple falls recently and in the past. She noted 2-3 weeks prior, she fell and endorsed neck pain but did not seek medical attention. No surgical interventions were required at that time. She was to wear a [place] collar at all times. She was to obtain a bone stimulator outpatient. She was to follow up in 1 month with repeat imaging. At her last visit on 09/16/2023 she stated she had been doing okay since discharge. She reported midline posterior cervical pain. She denied any radicular symptoms. Denied paresthesia. Denied any weakness. Denied any further falls, loss of bowel or bladder. She had since been using a cane for extra support. She was complaint with her cervical collar. She had been using ultram with relief. She was receiving home therapy. She did not receive any information about her bone growth stimulator. There was significant bone loss at the neck of the odontoid process that was caused to believe that she likely had a longstanding fracture in that location. It was difficult to tell thought it may be acute. Her xray's did not have any concerns with respect to odontoid displacement or other issues. She was interested in the bone growth stimulator. It was recommended that she follow up in 3 months with repeat imaging. At her last visit on 12/19/2023 she stated she had continual posterior cervical pain. She denied any radicular symptoms. Patient stated over the last week or so she had noticed left hand numbness. She reported using Tylenol as needed for the pain. She denied dexterity issues. She did not get her x-rays prior to her visit. She denied any recent falls, numbness, tingling or bowel/ bladder incontinence. Patient using a cane for assistance with ambulation. Patient still had her [place] collar on and stated she wanted it off. She noted she continued with her bone growth stimulator. There was concern for a new upper motor neuron finding that was not perviously documented. She was to obtain a CT myelogram of the cervical spine as she could not obtain an MRI due to her bladder stimulator. She was to follow up once completed. At her last visit on 02/01/2024 she stated she continued with very little cervical pain and headaches, but stated the headaches were unrelated to her cervical spine. Denied any radicular symptoms. Continued with left hand numbness. She continued to be off balance and unsteady with use of a cane, but reported this was improving. Denied any falls, loss of bowel or bladder. She had been complaint with her cervical collar. Noted she continued with her bone growth stimulator. 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 This would almost completely remove her ability to move her neck. The goal of surgery be to arrest neurologic progression and not necessarily to achieve neurologic improvement. In this context I think that continuing to wear the cervical collar is the less morbid of the [address] myelogram does not show evidence of healing of her C1-2 fracture we did articulate a plan to continue use of her bone growth stimulator given that there is little downside to doing so. It was recommended that at that time, she continue with conservative treatment and to follow up in 3 months. At her last visit on 04/30/2024 she stated she had been doing well. She denied any cervical pain or headaches. Denied any radicular pain. Denied paresthesia. Noted taking tylenol as needed. Reported a fall the day before where she slid out of a chair onto her bottom. Denied any injuries. Denied feeling off balance and unsteady, but continued with use of cane. She had been compliant with her cervical collar at all times and wears her bone growth stimulator daily. She was having no evident motion at the site of her odontoid fracture on flexion-extension films. This could reflect fibrous union. It was recommended that she continue with her collar and bone growth stimulator for another 3 months. If her xray's looked good, then we may consider a collar wean. She was to follow up in 3 months with repeat imaging, promptin (more content not included)...[facility]03-17-2025 History of Present illness Narrative* Francisco Rowan RT(R) - 07/23/2024 9:30 AM EDT Radiology Service Progress Note PATIENT NAME: Georgina Segura DATE OF SERVICE: July 23, 2024 TIME: 9:18 AM PATIENT IDENTITY VERIFICATION COMPLETED USING TWO (2) IDENTIFIERS: Name and Date of confirmedby patient verbally. FALL SCREENING: Has the patient had 2 falls in the last year or 1 fall with injury or currently using an Ambulatory Assistive Device (Walker, Cane, Wheelchair, Crutches, etc.)? No PATIENT GENDER DATA: Assigned female at . status: : No status:NO. PATIENT RELEVANT IMPLANT DATA REVIEWED: Not Applicable PATIENT PRESENTS WITH AN IMPLANTABLE OR ATTACHED FAMILY SERVICE CENTER DIRECTOR: No RADIOLOGY DEPARTMENT: General X-ray: Exam(s) Completed: Spine X-Ray(s): Cervical AP / LAT / FLEX-EXT PERIPHERAL IV DATA: Not applicable SIGNED BY: RT Paula(Arin) July 23, 2024 9:18 AM documented in [facility]25 NoteHNO ID: [id number] Author: FRANCISCO ROWAN RT(R) Service: Radiology Author Type: Technologist Type: Progress Notes Filed: 07/23/2024 09:19 Note Text: Radiology Service Progress Note PATIENT NAME: Georgina Segura DATE OF SERVICE: July 23, 2024 TIME: 9:18 AM PATIENT IDENTITY VERIFICATION COMPLETED USING TWO (2) IDENTIFIERS: Name and Date of confirmed by patient verbally. FALL SCREENING: Has the patient had 2 falls in the last year or 1 fall with injury or currently using an Ambulatory Assistive Device (Walker, Cane, Wheelchair, Crutches, etc.)? No PATIENT GENDER DATA: Assigned female at . status: : No status: NO. PATIENT RELEVANT IMPLANT DATA REVIEWED: Not Applicable PATIENT PRESENTS WITH AN IMPLANTABLE OR ATTACHED FAMILY SERVICE CENTER DIRECTOR: No RADIOLOGY DEPARTMENT: General X-ray: Exam(s) Completed: Spine X-Ray(s): Cervical AP / LAT / FLEX-EXT PERIPHERAL IV DATA: Not applicable SIGNED BY: RT Paula(R) July 23, 2024 9:18 [facility]03-07-2025 NoteHNO ID: [id number] Author: JESSICA OSBORN MA Service: ? Author Type: Cereal Maker Type: Progress Notes Filed: 07/13/2024 13:18 Note Text: Referral faxed to [facility] ) due to transportation issues. Pt will call when ready to schedule. Jessica Osborn [facility]03-07-2025 History of Present illness Narrative* Jessica Osborn MA - 07/13/2024 1:17 PM EST Referral faxed to [employer] [facility] ) due to transportation issues. Pt will call when ready to schedule. Jessica Osborn MA * Aure Ton - 07/13/2024 12:53 PM EST Subjective: Patient presents to clinic c/o painful toenails. They state that the nails are especially painful with shoe gear and pressure. Patient states that nails b/l hallux are painful. No other pedal complaints at this time. Patient states no change in medications or medical history since last visit. Objective: Patient presents to clinic ambulating in sneakers Vasc: DP and PT pulses are nonpalpable bilateral. CFT is less than 5 seconds bilateral. Skin temperature is warm to cool proximal to distal bilateral. There is no edema or varicosities noted. Neuro: Protective sensation is intact to the foot and toes when tested with the 5.07 SWM bilateral.Vibratory sensation is absent at the hallux IPJ bilateral. The hallux is downgoing bilateral. Derm: Nails 1-5 b/l are painful, discolored-yellow, thick, crumbly, dystrophic and with subungal debris. Skin is of normal turgor, texture and hair growth is absent bilateral. Right upper arm along anterior lateral biceps has hypopigmented raised lesion. Pic entered into epic Ortho: Muscle strength is 5/5 for all pedal groups tested. Ankle joint DF is full with the knee extended with no pain or crepitus noted. 1st MPJ ROM is full bilateral. Assessment: (B35.1) Onychomycosis (primary encounter diagnosis) (M79.675) Pain in toe of left foot (M79.674) Pain in toe of right foot (D49.2) Skin neoplasm Plan: Patient was seen and evaluated. Nails 1-5 bilateral were debrided in length and thickness. Small bleed to left hallux treated with band aide. Of note, I did notice a small hypopigmented lesion along the right anterior lateral upper arm. I would recommend she consult with derm for possbile biopsy. [facility]iscussed [facility] in [place] or [facility]. This patient would like to stay local. Derm referral made. Patient is to RTC in 3-4 months. Ton Looney DPM documented in this encounterDet[facility]03-07-2025 NoteHNO ID: [id number] Author: TON LOONEY, ? Service: ? Author Type: Physician Type: Progress Notes Filed: 07/13/2024 13:11 Note Text: Subjective: Patient presents to clinic c/o painful toenails. They state that the nails are especially painful with shoe gear and pressure. Patient states that nails b/l hallux are painful. No other pedal complaints at this time. Patient states no change in medications or medical history since last visit. Objective: Patient presents to clinic ambulating in [facility] Vasc: DP and PT pulses are nonpalpable bilateral. CFT is less than 5 seconds bilateral. Skin temperature is warm to cool proximal to distal bilateral. There is no edema or varicosities noted. Neuro: Protective sensation is intact to the foot and toes when tested with the 5.07 SWM bilateral. Vibratory sensation is absent at the hallux IPJ bilateral. The hallux is downgoing bilateral. Derm: Nails 1-5 b/l are painful, discolored-yellow, thick, crumbly, dystrophic and with subungal debris. Skin is of normal turgor, texture and hair growth is absent bilateral. Right upper arm along anterior lateral biceps has hypopigmented raised lesion. Pic entered into epic Ortho: Muscle strength is 5/5 for all pedal groups tested. Ankle joint DF is full with the knee extended with no pain or crepitus noted. 1st MPJ ROM is full bilateral. Assessment: (B35.1) Onychomycosis (primary encounter diagnosis) (M79.675) Pain in toe of left foot (M79.674) Pain in toe of right foot (D49.2) Skin neoplasm Plan: Patient was seen and evaluated. Nails 1-5 bilateral were debrided in length and thickness. Small bleed to left hallux treated with band aide. Of note, I did notice a small hypopigmented lesion along the right anterior lateral upper arm. I would recommend she consult with derm for possbile biopsy. Discussed [facility] in [place] or [facility]. This patient would like to stay local. Derm referral made. Patient is to RTC in 3-4 months. Ton Looney, [facility]01-20-2025 History of Present illness Narrative* Jp Sharma RT(R) - 05/28/2024 4:20 PM EST Radiology Service Progress Note PATIENT NAME: Georgina Segura DATE OF SERVICE: May 28, 2024 TIME: 3:57 PM PATIENT IDENTITY VERIFICATION COMPLETED USING TWO (2) IDENTIFIERS: Name and Date of confirmedby patient verbally. FALL SCREENING: Has the patient had 2 falls in the last year or 1 fall with injury or currently using an Ambulatory Assistive Device (Walker, Cane, Wheelchair, Crutches, etc.)? No PATIENT GENDER DATA: Assigned female at . status: : No status:NO. PATIENT RELEVANT IMPLANT DATA REVIEWED: Not Applicable PATIENT PRESENTS WITH AN IMPLANTABLE OR ATTACHED FAMILY SERVICE CENTER DIRECTOR: No RADIOLOGY DEPARTMENT: General X-ray: Exam(s) Completed: Upper Extremity X- Ray(s): Shoulder, AP / TRUE AP / AXILLARY right PERIPHERAL IV DATA: Not applicable SIGNED BY: RT Ping(R) May 28, 2024 3:57 PM documented in this encounterDetw[facility]01-20-2025 NoteHNO ID: [id number] Author: JP SHARMA RT(R) Service: Radiology Author Type: Technologist Type: Progress Notes Filed: 05/28/2024 16:09 Note Text: Radiology Service Progress Note PATIENT NAME: Georgina Segura DATE OF SERVICE: May 28, 2024 TIME: 3:57 PM PATIENT IDENTITY VERIFICATION COMPLETED USING TWO (2) IDENTIFIERS: Name and Date of confirmed by patient verbally. FALL SCREENING: Has the patient had 2 falls in the last year or 1 fall with injury or currently using an Ambulatory Assistive Device (Walker, Cane, Wheelchair, Crutches, etc.)? No PATIENT GENDER DATA: Assigned female at . status: : No status: NO. PATIENT RELEVANT IMPLANT DATA REVIEWED: Not Applicable PATIENT PRESENTS WITH AN IMPLANTABLE OR ATTACHED FAMILY SERVICE CENTER DIRECTOR: No RADIOLOGY DEPARTMENT: General X-ray: Exam(s) Completed: Upper Extremity X-Ray(s): Shoulder, AP / TRUE AP / AXILLARY right PERIPHERAL IV DATA: Not applicable SIGNED BY: RT Ping(Arin) May 28, 2024 3:57 [facility]01-20-2025 Telephone encounter Note* Telephone Encounter - Ary GarzaDEBRA - 05/28/2024 4:13 PM EST Images from the original note were not included. Electronic PA rec'd for cyclobenzaprine. This was approved. Prior authorization approved Payer: [employer] HOME [employer]IVERY [phone] Note from payer: CaseId:[id number];Status:Approved;Review Type:Prior Auth;Coverage Start Date:04/28/2024;Coverage End Date:05/28/2025; Approval Details Authorized from April 28, 2024 to May 28, 2025 Electronic appeal: Not supported View History Medication Being Authorized cyclobenzaprine (FLEXERIL) 5 mg tablet Take 1 tablet by mouth three times a day. Dispense: 20 tablet Refills: 0 Start: 05/28/2024 Class: Normal Diagnoses: Acute pain of right shoulder This order has been released to its destination. To be filled at: [facility] [address] [place] [id number] [address] [place] [phone] [id number] [facility]01-20-2025 Miscellaneous Notes* Telephone Encounter - Ary Garza LPN - 05/28/2024 4:13 PM EST Images from the original note were not included. Electronic PA rec'd for cyclobenzaprine. This was approved. Prior authorization approved Payer: [employer] HOME DELIVERY [phone] Note from payer: CaseId:[id number];Status:Approved;Review Type:Prior Auth;Coverage Start Date:04/28/2024;Coverage End Date:05/28/2025; Approval Details Authorized from April 28, 2024 to May 28, 2025 Electronic appeal: Not supported View History Medication Being Authorized cyclobenzaprine (FLEXERIL) 5 mg tablet Take 1 tablet by mouth three times a day. Dispense: 20 tablet Refills: 0 Start: 05/28/2024 Class: Normal Diagnoses: Acute pain of right shoulder This order has been released to its destination. To be filled at: [facility] [id number] [address] [place] [phone] documented in this encounterDetwiler [facility]01-20-2025 NoteHNO ID: [id number] Author: DINAH MELGAR MD Service: ? Author Type: Physician Type: Progress Notes Filed: 05/28/2024 16:00 Note Text: Patient presents with: Pain (Shoulder Pain): Right shoulder pain HPI: Patient presents today for office visit for right shoulder pain. Complains of right shoulder pain X 5 days. Daughter thinks it may be longer. No injury. Pain is constant. Refers to It really hurts Hx of rotator cuff repair same side No new neck pain. No injury. Pain is over the posterior shoulder. Used ice and heat. No numbness or tingling. She did see neurosurgery on 04/30. They are considering stopping her wearing her collar. Just had xrays done recently Did have a fall off of a chair at [facility] but no injuries since. Did not bother her after. Also having issues with worsening chronic edema. Is not moving around as much. Has been more sedentary. No chest pain with exertion. Drinking coffee etc again. She recently had some constipation She had a panic attack. Was short of breath and uncomfortable in trunk. Given mag citrate and enema Once she got her bowels better, she was fine. No redness or soreness in her legs. Not wearing compression stockings. The swelling goes down at night. MEDICATIONS: Current Outpatient Medications Medication Sig famotidine (PEPCID) 40 mg tablet Take 1 tablet by mouth once daily. ipratropium bromide (ATROVENT) 42 mcg (0.06 %) nasal spray Use 2 Sprays in the nose three times a day. mirabegron (MYRBETRIQ) 50 mg Tb24 Take 1 tablet by mouth once daily. pantoprazole DR (PROTONIX) 40 mg tablet Take 1 tablet by mouth once daily. levothyroxine (SYNTHROID) 50 mcg tablet TAKE 1 TABLET BY MOUTH ONCE DAILY AT 6 AM carvedilol (COREG) 6.25 mg tablet Take 1 tablet by mouth two times a day with meals. FLUoxetine (PROZAC) 20 mg capsule Take 1 capsule by mouth every afternoon. ezetimibe (ZETIA) 10 mg tablet Take 1 tablet by mouth once daily. albuterol HFA (PROVENTIL HFA, VENTOLIN HFA) 90 mcg/actuation inhaler Inhale 2 Puffs as instructed every 4 hours as needed. No current facility-administered medications for this visit. ALLERGIES: ALLERGIES Allergen Reactions Vioxx [Rofecoxib] Zocor [Simvastatin] Other: See Comments elevated CPK PAST MEDICAL HISTORY Diagnosis Date Arthritis of both hands 05/05/2016 Asthma 03/11/2010 Cervical disc disease 06/06/2013 Dementia without behavioral disturbance (HCC) 10/11/2022 Depression, recurrent (HCC) 10/11/2022 Diarrhea Diffuse cystic mastopathy 11/03/2005 Elevated CK 04/26/2012 Esophageal reflux 11/03/2005 Fracture of skull (HCC) 02/16/2023 Hyperlipidemia 04/26/2012 Hypothyroidism, acquired 08/04/2022 Impingement syndrome of right shoulder 10/11/2016 Irritable bowel syndrome with diarrhea 05/31/2018 Mild intermittent asthma, uncomplicated 11/23/2022 Neurogenic bladder, NOS Odontoid fracture (HCC) 08/20/2023 Other and unspecified hyperlipidemia Other forms of migraine Overactive bladder 02/12/2009 Primary localized osteoarthrosis, lower leg Rotator cuff syndrome 02/12/2009 Situational depression 05/31/2018 Statin intolerance 07/03/2018 Supraspinatus tendonitis 12/06/2012 Tear of biceps tendon 05/18/2017 Unspecified sleep apnea Urinary incontinence 03/11/2010 PAST SURGICAL HISTORY Procedure Laterality Date ADENOIDECTOMY PRIMARY Adenoidectomy APPENDECTOMY COLONOSCOPY W/BIOPSY SINGLE/MULTIPLE 06/21/11 DILATION AND CURETTAGE DXAND/THER NONOBSTETRIC Dilation AND curettage LAPAROSCOPY SURG CHOLECYSTECTOMY 07-15-06 Cholecystectomy, lap PAST SURGICAL HISTORY OF N/A 2016 urinary implant device TONSILLECTOMY PRIMARY/SECONDARY Tonsillectomy VAGINAL HYSTERECTOMY UTERUS 250 GM/< Hysterectomy, vaginal FAMILY HISTORY Problem Relation Age of Onset other (dementia [Other]) Father Heart Father Tremor Father Heart Mother Heart Brother Tremor Daughter Tremor Son Social History Tobacco Use Smoking status: Never Smokeless tobacco: Never Substance Use Topics Alcohol use: No Drug use: No Reviewed current medications, allergies, past medical history, surgical history, family history and social history today. REVIEW OF SYSTEMS All other reviewed and negative other than HPI. VITALS: BP 150/81 Pulse 86 Ht 160 cm (5' 3) Wt 88.5 kg (195 lb) BMI 34.54 kg/m? Last 4 Encounter Wt Readings: Date: Wt: 05/28/2024 88.5 kg (195 lb) 04/30/2024 86.6 kg (191 lb) 02/01/2024 86.8 kg (191 lb 6.4 oz) 01/30/2024 86.8 kg (191 lb 6.4 oz) PHYSICAL EXAMINATION: General appearance: Well appearing, alert, in no acute distress, well-hydrated, well nourished. Skin: Skin color, texture, turgor normal, no suspicious rashes or lesions Head: Normocephalic, no masses, lesions, tenderness or abnormalities Neck: collar in place but is now allowed to take it off occasionally. No masses or tendnerss. Back: Normal exam Lungs: Lungs clear to auscultation. (more content not included)...[facility]01-20-2025 History of Present illness Narrative* Dinah Melgar MD - 05/28/2024 3:09 PM EST Patient presents with: Pain (Shoulder Pain): Right shoulder pain HPI: Patient presents today for office visit for right shoulder pain. Complains of right shoulder pain X 5 days. Daughter thinks it may be longer. No injury. Pain is constant. Refers to It really hurts Hx of rotator cuff repair same side No new neck pain. No injury. Pain is over the posterior shoulder. Used ice and heat. No numbness or tingling. She did see neurosurgery on 04/30. They are considering stopping her wearing her collar. Just had xrays done recently Did have a fall off of a chair at [facility] but no injuries since. Did not bother her after. Also having issues with worsening chronic edema. Is not moving around as much. Has been more sedentary. No chest pain with exertion. Drinking coffee etc again. She recently had some constipation She had a panic attack. Was short of breath and uncomfortable in trunk. Given mag citrate and enema Once she got her bowels better, she was fine. No redness or soreness in her legs. Not wearing compression stockings. The swelling goes down at night. MEDICATIONS: Current Outpatient Medications Medication Sig famotidine (PEPCID) 40 mg tablet Take 1 tablet by mouth once daily. ipratropium bromide (ATROVENT) 42 mcg (0.06 %) nasal spray Use 2 Sprays in the nose three times a day. mirabegron (MYRBETRIQ) 50 mg Tb24 Take 1 tablet by mouth once daily. pantoprazole DR (PROTONIX) 40 mg tablet Take 1 tablet by mouth once daily. levothyroxine (SYNTHROID) 50 mcg tablet TAKE 1 TABLET BY MOUTH ONCE DAILY AT 6 AM carvedilol (COREG) 6.25 mg tablet Take 1 tablet by mouth two times a day with meals. FLUoxetine (PROZAC) 20 mg capsule Take 1 capsule by mouth every afternoon. ezetimibe (ZETIA) 10 mg tablet Take 1 tablet by mouth once daily. albuterol HFA (PROVENTIL HFA, VENTOLIN HFA) 90 mcg/actuation inhaler Inhale 2 Puffs as instructed every 4 hours as needed. No current facility-administered medications for this visit. ALLERGIES: ALLERGIES Allergen Reactions Vioxx [Rofecoxib] Zocor [Simvastatin] Other: See Comments elevated CPK PAST MEDICAL HISTORY Diagnosis Date Arthritis of both hands 05/05/2016 Asthma 03/11/2010 Cervical disc disease 06/06/2013 Dementia without behavioral disturbance (HCC) 10/11/2022 Depression, recurrent ([facility]) 10/11/2022 Diarrhea Diffuse cystic mastopathy 11/03/2005 Elevated CK 04/26/2012 Esophageal reflux 11/03/2005 Fracture of skull ([facility]) 02/16/2023 Hyperlipidemia 04/26/2012 Hypothyroidism, acquired 08/04/2022 Impingement syndrome of right shoulder 10/11/2016 Irritable bowel syndrome with diarrhea 05/31/2018 Mild intermittent asthma, uncomplicated 11/23/2022 Neurogenic bladder, NOS Odontoid fracture ([facility]) 08/20/2023 Other and unspecified hyperlipidemia Other forms of migraine Overactive bladder 02/12/2009 Primary localized osteoarthrosis, lower leg Rotator cuff syndrome 02/12/2009 Situational depression 05/31/2018 Statin intolerance 07/03/2018 Supraspinatus tendonitis 12/06/2012 Tear of biceps tendon 05/18/2017 Unspecified sleep apnea Urinary incontinence 03/11/2010 PAST SURGICAL HISTORY Procedure Laterality Date ADENOIDECTOMY PRIMARY <AGE 10 Adenoidectomy APPENDECTOMY COLONOSCOPY W/BIOPSY SINGLE/MULTIPLE 06/21/11 DILATION & CURETTAGE DX&/THER NONOBSTETRIC Dilation & curettage LAPAROSCOPY SURG CHOLECYSTECTOMY 07-15-06 Cholecystectomy, lap PAST SURGICAL HISTORY OF N/A 2017 urinary implant device TONSILLECTOMY PRIMARY/SECONDARY <AGE 10 Tonsillectomy VAGINAL HYSTERECTOMY UTERUS 250 GM/< Hysterectomy, vaginal FAMILY HISTORY Problem Relation Age of Onset other (dementia [Other]) Father Heart Father Tremor Father Heart Mother Heart Brother Tremor Daughter Tremor Son Social History Tobacco Use Smoking status: Never Smokeless tobacco: Never Substance Use Topics Alcohol use: No Drug use: No Reviewed current medications, allergies, past medical history, surgical history, family history andsocial history today. REVIEW OF SYSTEMS All other reviewed and negative other than HPI. VITALS: BP 150/81 Pulse 86 Ht 160 cm (5' 3) Wt 88.5 kg (195 lb) BMI 34.54 kg/m Last 4 Encounter Wt Readings: Date: Wt: 05/28/2024 88.5 kg (195 lb) 04/30/2024 86.6 kg (191 lb) 02/01/2024 86.8 kg (191 lb 6.4 oz) 01/30/2024 86.8 kg (191 lb 6.4 oz) PHYSICAL EXAMINATION: General appearance: Well appearing, alert, in no acute distress, well-hydrated, well nourished. Skin: Skin color, texture, turgor normal, no suspicious rashes or lesions Head: Normocephalic, no masses, lesions, tenderness or abnormalities Neck: collar in place but is now allowed to take it off occasionally. No masses or tendnerss. Back: Normal exam Lungs: Lungs clear to auscultation. No wheezing, rhonchi, rales Heart: RRR without murmur, gallop, or rubs. No ectopy Abdomen: Normal abdominal exam, Abdomen soft, non-tender. Bowel sounds normal. No masses, organomegaly Ext: no redness or warmth. Negative calf tenderness. One plus chronic edema. Shoulder Musculoskeletal Exam Inspection Right Right shoulder inspection is normal. Ecchymosis: none Peripheral edema: none Atrophy: none Masses: none Palpation Right Crepitus: no crepitus Increased warmth: none Tenderness: present Posterior shoulder: moderate Superior pole of scapula: moderate Range of Motion Right Right shoulder range of motion is normal. Strength Right Right shoulder strength is normal. Neurovascular Right Right shoulder nerve sensation is normal. Negative empty can. ASSESSMENT/PLAN: 1. Acute pain of right shoulder - ICD9: 719.41, ICD10: M25.511 (primary diagnosis) - appears musculoskeletal. Discussed risks and benefits of new medication with the patient. Advised them to call if any side effects or questions. Red flags for re-assessment reviewed with patient in detail. Call if symptoms worsen at all or if not better in one to two weeks Reviewed diagnosis and treatment options in detail. Questions were answered. Patient expressed understanding of treatment plan. - XR SHOULDER GENERAL 3V OR MORE AP/TRUE AP/OTHER RIGHT - DICLOFENAC 1 % TOPICAL GEL - CYCLOBENZAPRINE 5 MG TABLET 2. Edema, unspecified type - ICD9: 782.3, ICD10: R60.9 - exacerbation of known dependent edema. Wear compression hose. No definite signs of chf, dvt etc. Red flags for re-assessment reviewed with patient in detail. Alyson farrell prn. - COMPLETE BLOOD COUNT AND DIFFERENTIAL - COMPREHENSIVE METABOLIC PANEL - THYROID STIMULATING HORMONE 3. Chronic kidney disease, stage 3a (HCC) - ICD9: 585.3, ICD10: N18.31 - check labs 4. Hypothyroidism, acquired - ICD9: 244.9, ICD10: E03.9 - check labs. 5. Closed odontoid fracture with routine healing - ICD9: V54.17, ICD10: S12.100D - just saw neurosurgery and doing well. Dinah Melgar MD RTO in four weeks. [facility] Evaluation note* Diagnosis Acute pain of right shoulder- Primary Edema, unspecified type Chronic kidney disease, stage 3a (HCC) Hypothyroidism, acquired Unspecified hypothyroidism Closed odontoid fracture with routine healing documented in this encounter [facility]12[facility]30[facility] Evaluation note* Diagnosis Onset Date Resolution Status Admit Date Sleep apnea chronic April 1:09pm [facility] Work Phone: 1(889) 765-521512-30-2024 Evaluation note* Diagnosis Onset Date Resolution Status Admit Date Sleep apnea chronic April 1:09pm Acute cystitis without hematuria acute August 14, 2024 2:02am Acute myofascial strain of lumbosacral region acute August 14 2:02am Hypoxia acute August 14 2:02am Obesity (BMI 30-39.9) acute Aug 2:02am Sleep apnea chronic August 14 2:02am [facility] Work Phone: 1(266) 355-117912-30-2024 Evaluation note* Diagnosis Onset Date Resolution Status Admit Date Sleep apnea chronic April 1:09pm Acute cystitis without hematuria acute August 14, 2024 1:06am Acute myofascial strain of lumbosacral region acute August 14 1:06am Hypoxia acute August 14 1:06am Obesity (BMI 30-39.9) acute Aug 1:06am Sleep apnea chronic August 14 1:06am [facility] Work Phone: [phone]) 749-583712-30-2024 Evaluation note* Diagnosis Onset Date Resolution Status Admit Date Sleep apnea inactive April 1:09pm Acute cystitis without hematuria acute August 14, 2024 1:06am Hypoxia resolved August 14 1:06am Acute myofascial strain of lumbosacral region inactive August 14 1:06am Obesity (BMI 30-39.9) inactive Aug 1:06am Sleep apnea inactive August 14 1:06am [facility] Work Phone: [phone] History of Present illness Narrative* Francisco Rowan RT(R) - 04/30/2024 8:45 AM EST Radiology Service Progress Note PATIENT NAME: Georgina Segura DATE OF SERVICE: April 30, 2024 TIME: 9:00 AM PATIENT IDENTITY VERIFICATION COMPLETED USING TWO (2) IDENTIFIERS: Name and Date of confirmedby patient verbally. FALL SCREENING: Has the patient had 2 falls in the last year or 1 fall with injury or currently using an Ambulatory Assistive Device (Walker, Cane, Wheelchair, Crutches, etc.)? No PATIENT GENDER DATA: Female. status: : No status: NO. PATIENT RELEVANT IMPLANT DATA REVIEWED: Not Applicable PATIENT PRESENTS WITH AN IMPLANTABLE OR ATTACHED FAMILY SERVICE CENTER DIRECTOR: No RADIOLOGY DEPARTMENT: General X-ray: Exam(s) Completed: Spine X-Ray(s): Cervical AP / LAT / FLEX-EXT PERIPHERAL IV DATA: Not applicable SIGNED BY: RT Paula(R) April 30, 2024 9:00 AM documented in this encounterDet[facility]12-[facility]-2024 NoteHNO ID: [id number] Author: FRANCISCO ROWAN RT(Arin) Service: Radiology Author Type: Technologist Type: Progress Notes Filed: 04/30/2024 09:01 Note Text: Radiology Service Progress Note PATIENT NAME: Georgina Segura DATE OF SERVICE: April 30, 2024 TIME: 9:00 AM PATIENT IDENTITY VERIFICATION COMPLETED USING TWO (2) IDENTIFIERS: Name and Date of confirmed by patient verbally. FALL SCREENING: Has the patient had 2 falls in the last year or 1 fall with injury or currently using an Ambulatory Assistive Device (Walker, Cane, Wheelchair, Crutches, etc.)? No PATIENT GENDER DATA: Female. status: : No status: NO. PATIENT RELEVANT IMPLANT DATA REVIEWED: Not Applicable PATIENT PRESENTS WITH AN IMPLANTABLE OR ATTACHED FAMILY SERVICE CENTER DIRECTOR: No RADIOLOGY DEPARTMENT: General X-ray: Exam(s) Completed: Spine X-Ray(s): Cervical AP / LAT / FLEX-EXT PERIPHERAL IV DATA: Not applicable SIGNED BY: RT Paula(R) April 30, 2024 9:00 [facility]12-23-2024 History of Present illness Narrative* Guillaume Delgado MD, PhD - 04/30/2024 8:30 AM EST NEUROSURGERY FOLLOW UP OFFICE NOTE Guillaume Delgado MD, PhD Date of visit: April 30, 2024 Patient Name: Ms.Betty Ricky Segura Date of : 1945 Current Age: [age] year old Sex: female MRN/E# [id number] Last Office Visit: 12/19/2023 Chief Complaint: Patient presents with: Established Patient SUBJECTIVE: HPI The patient presented to [facility] ED on 08/20/2023 as a transfer from an outside hospital follow a fall.She noted she hit her head on the wall. Outside imaging demonstrated a type 2 odontoid fracture (acute vs chronic). She reported multiple falls recently and in the past. She noted 2-3 weeks prior, she fell and endorsed neck pain but did not seek medical attention. No surgical interventions were required at that time. She was to wear a [place] collar at all times. She was to obtain a bone stimulatoroutpatient. She was to follow up in 1 month with repeat imaging. At her last visit on 09/16/2023 she stated she had been doing okay since discharge. She reported midline posterior cervical pain. She denied any radicular symptoms. Denied paresthesia. Denied any weakness. Denied any further falls, loss of bowel or bladder. She had since been using a cane for extra s upport. She was complaint with her cervical collar. She had been using ultram with relief. She was receiving home therapy. She did not receive any information about her bone growth stimulator. There was significant bone loss at the neck of the odontoid process that was caused to believe thatshe likely had a longstanding fracture in that location. It was difficult to tell thought it may beacute. Her xray's did not have any concerns with respect to odontoid displacement or other issues. She was interested in the bone growth stimulator. It was recommended that she follow up in 3 months with repeat imaging. At her last visit on 12/19/2023 she stated she had continual posterior cervical pain. She denied anyradicular symptoms. Patient stated over the last week or so she had noticed left hand numbness. Shereported using Tylenol as needed for the pain. She denied dexterity issues. She did not get her x-rays prior to her visit. She denied any recent falls, numbness, tingling or bowel/ bladder incontinence. Patient using a cane for assistance with ambulation. Patient still had her [place] collar on and stated she wanted it off. She noted she continued with her bone growth stimulator. There was concern for a new upper motor neuron finding that was not perviously documented. She was to obtain a CT myelogram of the cervical spine as she could not obtain an MRI due to her bladder stimulator. She was to follow up once completed. At her last visit on 02/01/2024 she stated she continued with very little cervical pain and headaches, but stated the headaches were unrelated to her cervical spine. Denied any radicular symptoms. Continued with left hand numbness. She continued to be off balance and unsteady with use of a cane, but reported this was improving. Denied any falls, loss of bowel or bladder. She had been complaint with her cervical collar. Noted she continued with her bone growth stimulator. 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 This wouldalmost completely remove her ability to move her neck. The goal of surgery be to arrest neurologic p rogression and not necessarily to achieve neurologic improvement. In this context I think that continuing to wear the cervical collar is the less morbid of the [address] myelogram does not show evidence of healing of her C1-2 fracture we did articulate a plan to continue use of her bone growth stimulator given that there is little downside to doing so. It was recommended that at that time, she continue with conservative treatment and to follow up in 3 months, prompting her visit today. Today she states she has been doing well since her last visit. She denies any cervical pain or headaches. Denies any radicular pain. Denies paresthesia. Notes taking tylenol as needed. Reports a fallthe day before where she slid out of a chair onto her bottom. Denies any injuries. Denies feeling off balance and unsteady, but continues with use of cane. She has been compliant with her cervical collar at all times and wears her bone growth stimulator daily. She presents for evaluation and plan of care. Symptoms: use of a cane. Smoker: denies Diabetic: denies Anticoagulants / Antiplatelets: denies Occupation: [employer] PREVIOUS CONSERVATIVE TREATMENTS: [place] collar Ultram Bone growth stimulator. PREVIOUS SURGERY: None PAIN EVALUATION No data found in the last 1 encounters. PAST MEDICAL HISTORY Diagnosis Date Arthritis of both hands 05/05/2016 Asthma 03/11/2010 Cervical disc disease 06/06/2013 Dementia without behavioral disturbance (HCC) 10/11/2022 Depression, recurrent ([facility]) 10/11/2022 Diarrhea Diffuse cystic mastopathy 11/03/2005 Elevated CK 04/26/2012 Esophageal reflux 11/03/2005 Fracture of skull ([facility]) 02/16/2023 Hyperlipidemia 04/26/2012 Hypothyroidism, acquired 08/04/2022 Impingement syndrome of right shoulder 10/11/2016 Irritable bowel syndrome with diarrhea 05/31/2018 Mild intermittent asthma, uncomplicated 11/23/2022 Neurogenic bladder, NOS Odontoid fracture (HCC) 08/20/2023 Other and unspecified hyperlipidemia Other forms of migraine Overactive bladder 02/12/2009 Primary localized osteoarthrosis, lower leg Rotator cuff syndrome 02/12/2009 Situational depression 05/31/2018 Statin intolerance 07/03/2018 Supraspinatus tendonitis 12/06/2012 Tear of biceps tendon 05/18/2017 Unspecified sleep apnea Urinary incontinence 03/11/2010 PAST SURGICAL HISTORY Procedure Laterality Date ADENOIDECTOMY PRIMARY <AGE 10 Adenoidectomy APPENDECTOMY COLONOSCOPY W/BIOPSY SINGLE/MULTIPLE 06/21/11 DILATION & CURETTAGE DX&/THER NONOBSTETRIC Dilation & curettage LAPAROSCOPY SURG CHOLECYSTECTOMY 07-15-06 Cholecystectomy, lap PAST SURGICAL HISTORY OF N/A 2016 urinary implant device TONSILLECTOMY PRIMARY/SECONDARY <AGE 10 Tonsillectomy VAGINAL HYSTERECTOMY UTERUS 250 GM/< Hysterectomy, vaginal FAMILY HISTORY Problem Relation Age of Onset other (dementia [Other]) Father Heart Father Tremor Father Heart Mother Heart Brother Tremor Daughter Tremor Son ALLERGIES Allergen Reactions Vioxx [Rofecoxib] Zocor [Simvastatin] Other: See Comments elevated CPK Current Outpatient Medications Medication Sig Dispense Refill famotidine (PEPCID) 40 mg tablet Take 1 tablet by mouth once daily. 90 tablet 1 ipratropium bromide (ATROVENT) 42 mcg (0.06 %) nasal spray Use 2 Sprays in the nose three times a day. mirabegron (MYRBETRIQ) 50 mg Tb24 Take 1 tablet by mouth once daily. [address] (PROTONIX) 40 mg tablet Take 1 tablet by mouth once daily. 90 tablet 3 levothyroxine (SYNTHROID) 50 mcg tablet TAKE 1 TABLET BY MOUTH ONCE DAILY AT 6 AM 90 tablet 3 carvedilol (COREG) 6.25 mg tablet Take 1 tablet by mouth two times a day with meals. 180 tablet 3 FLUoxetine (PROZAC) 20 mg capsule Take 1 capsule by mouth every afternoon. 90 capsule 3 ezetimibe (ZETIA) 10 mg tablet Take 1 tablet by mouth once daily. 90 tablet 3 albuterol HFA (PROVENTIL HFA, VENTOLIN HFA) 90 mcg/actuation inhaler Inhale 2 Puffs as instructed every 4 hours as needed. 18 g 3 No current facility-administered medications for this visit. REVIEW OF SYSTEMS Review of Systems Constitutional: Negative for chills, fatigue and fever. HENT: Negative for congestion and sore throat. Eyes: Negative for discharge, itching and visual disturbance. Respiratory: Negative for cough and shortness of breath. Cardiovascular: Negative for chest pain and palpitations. Gastrointestinal: Negative for constipation, diarrhea, nausea and vomiting. Endocrine: Negative for cold intolerance and heat intolerance. Genitourinary: Negative for difficulty urinating, frequency and urgency. Musculoskeletal: Positive for gait problem. Negative for back pain, neck pain and neck stiffness. Skin: Negative for rash and wound. Allergic/Immunologic: Negative for environmental allergies and food allergies. Neurological: Negative for dizziness, weakness, light-headedness, numbness and headaches. Hematological: Does not bruise/bleed easily. Psychiatric/Behavioral: Negative for agitation. The patient is not nervous/anxious. OBJECTIVE: BP 136/76 Pulse 78 Ht 5' 3 (1.60m) Wt 191 lb (86.6kg) SpO2 96% BMI 33.84 kg/(m^2). Physical Exam On today's examination Georgina was wearing her collar. She is pleasant. She was accompanied by her daughter. Georgina has no Trevor sign bilaterally today. I did feel that she had 3+ reflexes globally throughout her arms but she reported no issues with arm or hand dexterity nor hand numbness on light touch. Data Review IMAGING STUDIES: XR Cervical 04/30/2024: in process Assessment and Plan: I await radiology read but remarkably to my eye Georgina is having no evident motion at the site of her odontoid fracture on flexion-extension films. This could reflect fibrous union. Of course Georgina has been wearing a bone growth stimulator and there is a possibility that she is achieving a bony fusion at that site. I think in terms of a belt and suspenders approach I am going to encourage Georgina to continue wearing her collar using her bone growth stimulator for an additional 3 months. I think that if her x-rayslook as good when I next assess her we might consider initiating a collar wean. I have verified with Georgina and her daughter once more that the are of the firm opinion that they would not consider any spinal surgery going forward under any circumstance which is very helpful to understand. I do think that puts further pressure on achieving success with conservative management and provides the rationale for extending her course of collar and bone stimulator. Attestation: The following portions of the patient's history were reviewed, confirmed, and updated as necessary: allergies, current medications, past family history, past medical history, past socialhistory, past surgical history, problem list, HPI, and ROS obtained by others. Some elements may be copied from a previous office note and have been reviewed/updated where appropriate. All portions reflect current medical decision making from today. The clinical and radiographic findings as well as the risks, benefits and alternatives of treatmenthave been reviewed in detail with the patient. The patient was advised to call the office if symptoms worsen or new symptoms develop. The patient expressed understanding and is in agreement with plan. Guillaume Delgado MD, PhD This note was partially generated using Synker voice recognition system, and there may be some incorrect words, spellings, and punctuation that were not noted in checking the note before saving. documented in this encounterDetwiler [facility]12-23-2024 NoteHNO ID: [id number] Author: GUILLAUME DELGADO MD, PhD Service: ? Author Type: Physician Type: Progress Notes Filed: 04/30/2024 09:32 Note Text: NEUROSURGERY FOLLOW UP OFFICE NOTE Guillaume Delgado MD, PhD Date of visit: April 30, 2024 Patient Name: Ms.Betty Ricky Segura Date of : 1945 Current Age: [age] year old Sex: female MRN/E# [id number] Last Office Visit: 12/19/2023 Chief Complaint: Patient presents with: Established Patient SUBJECTIVE: HPI The patient presented to [facility] ED on 08/20/2023 as a transfer from an outside hospital follow a fall. She noted she hit her head on the wall. Outside imaging demonstrated a type 2 odontoid fracture (acute vs chronic). She reported multiple falls recently and in the past. She noted 2-3 weeks prior, she fell and endorsed neck pain but did not seek medical attention. No surgical interventions were required at that time. She was to wear a [place] collar at all times. She was to obtain a bone stimulator outpatient. She was to follow up in 1 month with repeat imaging. At her last visit on 09/16/2023 she stated she had been doing okay since discharge. She reported midline posterior cervical pain. She denied any radicular symptoms. Denied paresthesia. Denied any weakness. Denied any further falls, loss of bowel or bladder. She had since been using a cane for extra support. She was complaint with her cervical collar. She had been using ultram with relief. She was receiving home therapy. She did not receive any information about her bone growth stimulator. There was significant bone loss at the neck of the odontoid process that was caused to believe that she likely had a longstanding fracture in that location. It was difficult to tell thought it may be acute. Her xray's did not have any concerns with respect to odontoid displacement or other issues. She was interested in the bone growth stimulator. It was recommended that she follow up in 3 months with repeat imaging. At her last visit on 12/19/2023 she stated she had continual posterior cervical pain. She denied any radicular symptoms. Patient stated over the last week or so she had noticed left hand numbness. She reported using Tylenol as needed for the pain. She denied dexterity issues. She did not get her x-rays prior to her visit. She denied any recent falls, numbness, tingling or bowel/ bladder incontinence. Patient using a cane for assistance with ambulation. Patient still had her [place] collar on and stated she wanted it off. She noted she continued with her bone growth stimulator. There was concern for a new upper motor neuron finding that was not perviously documented. She was to obtain a CT myelogram of the cervical spine as she could not obtain an MRI due to her bladder stimulator. She was to follow up once completed. At her last visit on 02/01/2024 she stated she continued with very little cervical pain and headaches, but stated the headaches were unrelated to her cervical spine. Denied any radicular symptoms. Continued with left hand numbness. She continued to be off balance and unsteady with use of a cane, but reported this was improving. Denied any falls, loss of bowel or bladder. She had been complaint with her cervical collar. Noted she continued with her bone growth stimulator. 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 This would almost completely remove her ability to move her neck. The goal of surgery be to arrest neurologic progression and not necessarily to achieve neurologic improvement. In this context I think that continuing to wear the cervical collar is the less morbid of the [address] myelogram does not show evidence of healing of her C1-2 fracture we did articulate a plan to continue use of her bone growth stimulator given that there is little downside to doing so. It was recommended that at that time, she continue with conservative treatment and to follow up in 3 months, prompting her visit today. Today she states she has been doing well since her last visit. She denies any cervical pain or headaches. Denies any radicular pain. Denies paresthesia. Notes taking tylenol as needed. Reports a fall the day before Thanksgiving where she slid out of a chair onto her bottom. Denies any injuries. Denies feeling off balance and unsteady, but continues with use of cane. She has been compliant with her cervical collar at all times and wears her bone growth stimulator daily. She presents for evaluation and plan of care. Symptoms: use of a cane. Smoker: denies Diabetic: denies Anticoagulants / Antiplatelets: denies Occupation: [employer] PREVIOUS CONSERVATIVE TREATMENTS: [place] collar Ultram Bone growth stimulator. PREVIOUS SURGERY: None PAIN EVALUATION No data found in the last 1 enc (more content not included)...[facility]12-06-2024 NoteHNO ID: [id number] Author: TON LOONEY, ? Service: ? Author Type: Physician Type: Progress Notes Filed: 04/13/2024 15:35 Note Text: Subjective: Patient presents to clinic c/o painful toenails. They state that the nails are especially painful with shoe gear and pressure. Patient states that nails b/l hallux are painful. No other pedal complaints at this time. Patient states no change in medications or medical history since last visit. Objective: Patient presents to clinic ambulating in [place] Vasc: DP pulses palpable bilateral. Posterior tibial pulses nonpalpable b/l. CFT is less than 5 seconds bilateral. Skin temperature is warm to cool proximal to distal bilateral. There is moderate edema or varicosities noted. Neuro: Protective sensation is intact to the foot and toes when tested with the 5.07 SWM bilateral. Vibratory sensation is absent at the hallux IPJ bilateral. The hallux is downgoing bilateral. Derm: Nails 1-5 b/l are painful, discolored-yellow, thick, crumbly, dystrophic and with subungal debris. Skin is of normal turgor, texture and hair growth is absent bilateral. Skin is ruborous. Hair growth is absent. Ortho: Muscle strength is 5/5 for all pedal groups tested. Ankle joint DF is decreased with the knee extended with no pain or crepitus noted. 1st MPJ ROM is decreased bilateral. Assessment: (B35.1) Onychomycosis (primary encounter diagnosis) (M79.675) Pain in toe of left foot (M79.674) Pain in toe of right foot Plan: Patient was seen and evaluated. Nails 1-5 bilateral were debrided in length and thickness. Small bleed to left 2nd toe and right hallux. Band aide applied. Patient is to RTC in 3-4 months. Ton Looney [facility]12-06-2024 History of Present illness Narrative* Ton Looney - 04/13/2024 3:21 PM EST Subjective: Patient presents to clinic c/o painful toenails. They state that the nails are especially painful with shoe gear and pressure. Patient states that nails b/l hallux are painful. No other pedal complaints at this time. Patient states no change in medications or medical history since last visit. Objective: Patient presents to clinic ambulating in [facility] Vasc: DP pulses palpable bilateral. Posterior tibial pulses nonpalpable b/l. CFT is less than 5 seconds bilateral. Skin temperature is warm to cool proximal to distal bilateral. There is moderate edema or varicosities noted. Neuro: Protective sensation is intact to the foot and toes when tested with the 5.07 SWM bilateral.Vibratory sensation is absent at the hallux IPJ bilateral. The hallux is downgoing bilateral. Derm: Nails 1-5 b/l are painful, discolored-yellow, thick, crumbly, dystrophic and with subungal debris. Skin is of normal turgor, texture and hair growth is absent bilateral. Skin is ruborous. Hair growth is absent. Ortho: Muscle strength is 5/5 for all pedal groups tested. Ankle joint DF is decreased with the knee extended with no pain or crepitus noted. 1st MPJ ROM is decreased bilateral. Assessment: (B35.1) Onychomycosis (primary encounter diagnosis) (M79.675) Pain in toe of left foot (M79.674) Pain in toe of right foot Plan: Patient was seen and evaluated. Nails 1-5 bilateral were debrided in length and thickness. Small bleed to left 2nd toe and right hallux. Band aide applied. Patient is to RTC in 3-4 months. Ton Looney DPM documented in this encounterDetwiler [facility]11-18-2024 Telephone encounter Note * Telephone Encounter - Martínez Kessler LPN - 03/26/2024 4:49 PM EST Phoned patient and went over results, notes from Dr Melgar several times to get her to understand. She is going to discuss with her daughter who is a nurse and gave her phone number to call back to schedule an appt. [facility]11-18-20[facility] Miscellaneous Notes* Telephone Encounter - Martínez Kessler LPN - 03/26/2024 4:49 PM EST Phoned patient and went over results, notes from Dr Melgar several times to get her to understand. She is going to discuss with her daughter who is a nurse and gave her phone number to call back to schedule an appt. * Telephone Encounter - Dinah Melgar MD - 03/26/2024 4:21 PM EST Bone density shows osteoporosis. H. If interested in retrying meds, come in to see one of us to discuss documented in this encounterDetwiler [facility]11-18-2024 Telephone encounter Note * Telephone Encounter - Dinah Melgar MD - 03/26/2024 4:21 PM EST Bone density shows osteoporosis. H. If interested in retrying meds, come in to see one of us to discuss [facility]11-18-[facility] History of Present illness Narrative* William Cohen RT(R) - 03/26/2024 11:15 AM EST Radiology Service Progress Note PATIENT NAME: Georgina Segura DATE OF SERVICE: March 26, 2024 TIME: 11:10 AM PATIENT IDENTITY VERIFICATION COMPLETED USING TWO (2) IDENTIFIERS: Name and Date of confirmedby patient verbally. FALL SCREENING: Has the patient had 2 falls in the last year or 1 fall with injury or currently using an Ambulatory Assistive Device (Walker, Cane, Wheelchair, Crutches, etc.)? No PATIENT GENDER DATA: Female. status: : No status: NO. PATIENT RELEVANT IMPLANT DATA REVIEWED: Not Applicable PATIENT PRESENTS WITH AN IMPLANTABLE OR ATTACHED FAMILY SERVICE CENTER DIRECTOR: No RADIOLOGY DEPARTMENT: Bone Density PERIPHERAL IV DATA: Not applicable SIGNED BY: JILLIAN Zacarias) March 26, 2024 11:10 AM documented in this encounterDetwiler [facility] Hospital11-18-2024 NoteHNO ID: [id number] Author: WILLIAM COHEN RT (R) Service: ? Author Type: Technologist Type: Progress Notes Filed: 03/26/2024 11:24 Note Text: Radiology Service Progress Note PATIENT NAME: Georgina Segura DATE OF SERVICE: March 26, 2024 TIME: 11:10 AM PATIENT IDENTITY VERIFICATION COMPLETED USING TWO (2) IDENTIFIERS: Name and Date of confirmed by patient verbally. FALL SCREENING: Has the patient had 2 falls in the last year or 1 fall with injury or currently using an Ambulatory Assistive Device (Walker, Cane, Wheelchair, Crutches, etc.)? No PATIENT GENDER DATA: Female. status: : No status: NO. PATIENT RELEVANT IMPLANT DATA REVIEWED: Not Applicable PATIENT PRESENTS WITH AN IMPLANTABLE OR ATTACHED [facility] DIRECTOR: No RADIOLOGY DEPARTMENT: Bone Density PERIPHERAL IV DATA: Not applicable SIGNED BY: RT Rell(Arin) March 26, 2024 11:10 [facility]11-18-2024 Telephone encounter Note* Telephone Encounter - Brigitte Metz LPN - 03/26/2024 9:12 AM EST Prescription Refill Information The patient has been identified by name and date of : Yes Caregiver verified no other encounters exist for this prescription request: Yes Caregiver confirmed with patient/requestor that no other refills are due, in the near future, with this provider at this time: Yes The last office visit in the department: 01/30/24 Does the patient have a future office visit with this provider/department: Yes Requested Prescriptions Pending Prescriptions Disp Refills famotidine (PEPCID) 40 mg tablet 90 tablet 1 Sig: Take 1 tablet by mouth once daily. Brigitte Metz LPN March 26, 2024 9:12 AM [facility]11-18-2024 Miscellaneous Notes* Telephone Encounter - Brigitte Metz LPN - 03/26/2024 9:12 AM EST Prescription Refill Information The patient has been identified by name and date of : Yes Caregiver verified no other encounters exist for this prescription request: Yes Caregiver confirmed with patient/requestor that no other refills are due, in the near future, with this provider at this time: Yes The last office visit in the department: 01/30/24 Does the patient have a future office visit with this provider/department: Yes Requested Prescriptions Pending Prescriptions Disp Refills famotidine (PEPCID) 40 mg tablet 90 tablet 1 Sig: Take 1 tablet by mouth once daily. Brigitte Metz LPN March 26, 2024 9:12 AM documented in [facility] encounterDet[facility] History of Present illness Narrative* Guillaume Delgado MD, PhD - 02/01/2024 9:15 AM EDT NEUROSURGERY FOLLOW UP OFFICE NOTE Guillaume Delgado MD, PhD Date of visit: February 01, 2024 Patient Name: Ms.Betty Ricky Segura Date of : 1945 Current Age: [age] year old Sex: female MRN/E# [id number] Last Office Visit: Visit date not found Chief Complaint: Patient presents with: Follow Up: 78 year old female pt her for a follow up spinal stenosis. Ct and xray done on 01-04-24. SUBJECTIVE: HPI The patient presented to [facility] ED on 08/20/2023 af a transfer from an outside hospital follow a fall.She noted she hit her head on the wall. Outside imaging demonstrated a type 2 odontoid fracture (acute vs chronic). She reported multiple falls recently and in the past. She noted 2-3 weeks prior, she fell and endorsed neck pain but did not seek medical attention. No surgical interventions were required at that time. She was to wear a [place] collar at all times. She was to obtain a bone stimulatoroutpatient. She was to follow up in 1 month with repeat imaging. At her last visit on 09/16/2023 she stated she had been doing okay since discharge. She reported midline posterior cervical pain. She denied any radicular symptoms. Denied paresthesia. Denied any weakness. Denied any further falls, loss of bowel or bladder. She had since been using a cane for extra s upport. She was complaint with her cervical collar. She had been using ultram with relief. She was receiving home therapy. She did not receive any information about her bone growth stimulator. There was significant bone loss at the neck of the odontoid process that was caused to believe thatshe likely had a longstanding fracture in that location. It was difficult to tell thought it may beacute. Her xray's did not have any concerns with respect to odontoid displacement or other issues. She was interested in the bone growth stimulator. It was recommended that she follow up in 3 months with repeat imaging. At her last visit on 12/19/2023 she stated she had continual posterior cervical pain. She denied anyradicular symptoms. Patient stated over the last week or so she had noticed left hand numbness. Shereported using Tylenol as needed for the pain. She denied dexterity issues. She did not get her x-rays prior to her visit. She denied any recent falls, numbness, tingling or bowel/ bladder incontinence. Patient using a cane for assistance with ambulation. Patient still had her [place] collar on and stated she wanted it off. She noted she continued with her bone growth stimulator. There was concern for a new upper motor neuron finding that was not perviously documented. She was to obtain a CT myelogram of the cervical spine as she could not obtain an MRI due to her bladder stimulator. She was to follow up once completed, prompting her visit today. Today she states she continues with very little cervical pain and headaches, but states the headaches are unrelated to her cervical spine. Denies any radicular symptoms. Continues with left hand numbness. She continues to be off balance and unsteady with use of a cane, but reports this is improving. Denies any falls, loss of bowel or bladder. She has been complaint with her cervical collar. Notes she continues with her bone growth stimulator. She presents for imaging review, evaluation and plan of care. Symptoms: Posterior cervical pain, left hand numbness. Headaches, gait imbalance and use of a cane. Smoker: denies Diabetic: denies Anticoagulants / Antiplatelets: denies Occupation: [employer] PREVIOUS CONSERVATIVE TREATMENTS: [place] collar Ultram Bone growth stimulator. PREVIOUS SURGERY: None PAIN EVALUATION No data found in the last 1 encounters. PAST MEDICAL HISTORY Diagnosis Date Arthritis of both hands 05/05/2016 Asthma 03/11/2010 Cervical disc disease 06/06/2013 Dementia without behavioral disturbance (HCC) 10/11/2022 Depression, recurrent ([facility]) 10/11/2022 Diarrhea Diffuse cystic mastopathy 11/03/2005 Elevated CK 04/26/2012 Esophageal reflux 11/03/2005 Fracture of skull ([facility]) 02/16/2023 Hyperlipidemia 04/26/2012 Hypothyroidism, acquired 08/04/2022 Impingement syndrome of right shoulder 10/11/2016 Irritable bowel syndrome with diarrhea 05/31/2018 Mild intermittent asthma, uncomplicated 11/23/2022 Neurogenic bladder, NOS Odontoid fracture ([facility]) 08/20/2023 Other and unspecified hyperlipidemia Other forms of migraine Overactive bladder 02/12/2009 Primary localized osteoarthrosis, lower leg Rotator cuff syndrome 02/12/2009 Situational depression 05/31/2018 Statin intolerance 07/03/2018 Supraspinatus tendonitis 12/06/2012 Tear of biceps tendon 05/18/2017 Unspecified sleep apnea Urinary incontinence 03/11/2010 PAST SURGICAL HISTORY Procedure Laterality Date ADENOIDECTOMY PRIMARY <AGE 10 Adenoidectomy APPENDECTOMY COLONOSCOPY W/BIOPSY SINGLE/MULTIPLE 06/21/11 DILATION & CURETTAGE DX&/THER NONOBSTETRIC Dilation & curettage LAPAROSCOPY SURG CHOLECYSTECTOMY 07-15-06 Cholecystectomy, lap PAST SURGICAL HISTORY OF N/A 2016 urinary implant device TONSILLECTOMY PRIMARY/SECONDARY <AGE 10 Tonsillectomy VAGINAL HYSTERECTOMY UTERUS 250 GM/< Hysterectomy, vaginal FAMILY HISTORY Problem Relation Age of Onset other (dementia [Other]) Father Heart Father Tremor Father Heart Mother Heart Brother Tremor Daughter Tremor Son ALLERGIES Allergen Reactions Vioxx [Rofecoxib] Zocor [Simvastatin] Other: See Comments elevated CPK Current Outpatient Medications Medication Sig Dispense Refill ipratropium bromide (ATROVENT) 42 mcg (0.06 %) nasal spray Use 2 Sprays in the nose three times a day. mirabegron (MYRBETRIQ) 50 mg Tb24 Take 1 tablet by mouth once daily. [address] (PROTONIX) 40 mg tablet Take 1 tablet by mouth once daily. 90 tablet 3 levothyroxine (SYNTHROID) 50 mcg tablet TAKE 1 TABLET BY MOUTH ONCE DAILY AT 6 AM 90 tablet 3 carvedilol (COREG) 6.25 mg tablet Take 1 tablet by mouth two times a day with meals. 180 tablet 3 FLUoxetine (PROZAC) 20 mg capsule Take 1 capsule by mouth every afternoon. 90 capsule 3 famotidine (PEPCID) 40 mg tablet Take 1 tablet by mouth once daily. 90 tablet 1 ezetimibe (ZETIA) 10 mg tablet Take 1 tablet by mouth once daily. 90 tablet 3 albuterol HFA (PROVENTIL HFA, VENTOLIN HFA) 90 mcg/actuation inhaler Inhale 2 Puffs as instructed every 4 hours as needed. 18 g 3 No current facility-administered medications for this visit. REVIEW OF SYSTEMS Review of Systems Constitutional: Negative for chills, fatigue and fever. HENT: Negative for congestion and sore throat. Eyes: Negative for discharge, itching and visual disturbance. Respiratory: Negative for cough and shortness of breath. Cardiovascular: Negative for chest pain and palpitations. Gastrointestinal: Negative for constipation, diarrhea, nausea and vomiting. Endocrine: Negative for cold intolerance and heat intolerance. Genitourinary: Negative for difficulty urinating, frequency and urgency. Musculoskeletal: Positive for gait problem, neck pain and neck stiffness. Negative for back pain. Skin: Negative for rash and wound. Allergic/Immunologic: Negative for environmental allergies and food allergies. Neurological: Positive for weakness and numbness. Negative for dizziness, light- headedness and headaches. Hematological: Does not bruise/bleed easily. Psychiatric/Behavioral: Negative for agitation. The patient is not nervous/anxious. OBJECTIVE: BP 124/74 Pulse 81 Ht 5' 3 (1.60m) Wt 191 lb 6.4 oz (86.8kg) SpO2 93% BMI 33.91 kg/(m^2). Physical Exam I completed physical examination today with Georgina. She is confirmed to have a diagnosis of cervicalmyelopathy at this point as she has clear upper motor neuron findings including a left-sided Trevor sign and hyperreflexia. Data Review IMAGING STUDIES: CT Myelogram Cervical 01/04/2024: IMPRESSION: Stable nonunion type II odontoid fracture. Stable 1.4 cm lytic lesion in the dens in a nonaggressive appearance. Degenerative changes and OPLL. Resultant ventricle cord deformity at C3-4 through C5-6. Moderate to severe foraminal stenosis at bilateral C5-6. XR Myelogram Cervical 01/04/2024: IMPRESSION: Technically successful myelogram Assessment and Plan: Georgina is a challenging patient. Although she is relatively healthy is an 78-year-old the issue of surgical management is complex here. Given her kyphotic cervical deformity and the presence of spinalcord compression in her lower cervical spine surgical management would in my opinion mandate a fusion from C1 likely to T1. This would almost completely remove her ability to move her neck. The goal of surgery be to arrest neurologic progression and not necessarily to achieve neurologic improvement. In this context I think that continuing to wear the cervical collar is the less morbid of the 2 options. Although Georgina is unhappy about wearing her collar both her and her daughter expressed strong feeling that a posterior cervical surgery is highly undesirable to them and not something that the we should consider. Although the CT myelogram does not show evidence of healing of her C1-2 fracturewe did articulate a plan to continue use of her bone growth stimulator given that there is little downside to doing so. I indicated that unless surgery is performed but he will continue to have all op tions available in front of her. Certainly if she was to have a note where the decline in her limb function this could potentially lead to a change in relevant decision making but I think for the moment we have strong consensus about pursuing nonoperative management and to continue in the cervical collar. We have agreed to a follow-up appointment in 3 months time. Attestation: The following portions of the patient's history were reviewed, confirmed, and updated as necessary: allergies, current medications, past family history, past medical history, past socialhistory, past surgical history, problem list, HPI, and ROS obtained by others. Some elements may be copied from a previous office note and have been reviewed/updated where appropriate. All portions reflect current medical decision making from today. The clinical and radiographic findings as well as the risks, benefits and alternatives of treatmenthave been reviewed in detail with the patient. The patient was advised to call the office if symptoms worsen or new symptoms develop. The patient expressed understanding and is in agreement with plan. Guillaume Delgado MD, PhD This note was partially generated using Synker voice recognition system, and there may be some incorrect words, spellings, and punctuation that were not noted in checking the note before saving. documented in this encounterDetwiler [facility]09-[facility]24 NoteHNO ID: [id number] Author: GUILLAUME DELGADO MD, PhD Service: ? Author Type: Physician Type: Progress Notes Filed: 02/01/2024 09:50 Note Text: NEUROSURGERY FOLLOW UP OFFICE NOTE Guillaume Delgado MD, PhD Date of visit: February 01, 2024 Patient Name: Ms.Betty Ricky Segura Date of : 1945 Current Age: [age] year old Sex: female MRN/E# [id number] Last Office Visit: Visit date not found Chief Complaint: Patient presents with: Follow Up: 78 year old female pt her for a follow up spinal stenosis. Ct and xray done on 01-04-24. SUBJECTIVE: HPI The patient presented to [facility] ED on 08/20/2023 af a transfer from an outside hospital follow a fall. She noted she hit her head on the wall. Outside imaging demonstrated a type 2 odontoid fracture (acute vs chronic). She reported multiple falls recently and in the past. She noted 2-3 weeks prior, she fell and endorsed neck pain but did not seek medical attention. No surgical interventions were required at that time. She was to wear a [place] collar at all times. She was to obtain a bone stimulator outpatient. She was to follow up in 1 month with repeat imaging. At her last visit on 09/16/2023 she stated she had been doing okay since discharge. She reported midline posterior cervical pain. She denied any radicular symptoms. Denied paresthesia. Denied any weakness. Denied any further falls, loss of bowel or bladder. She had since been using a cane for extra support. She was complaint with her cervical collar. She had been using ultram with relief. She was receiving home therapy. She did not receive any information about her bone growth stimulator. There was significant bone loss at the neck of the odontoid process that was caused to believe that she likely had a longstanding fracture in that location. It was difficult to tell thought it may be acute. Her xray's did not have any concerns with respect to odontoid displacement or other issues. She was interested in the bone growth stimulator. It was recommended that she follow up in 3 months with repeat imaging. At her last visit on 12/19/2023 she stated she had continual posterior cervical pain. She denied any radicular symptoms. Patient stated over the last week or so she had noticed left hand numbness. She reported using Tylenol as needed for the pain. She denied dexterity issues. She did not get her x-rays prior to her visit. She denied any recent falls, numbness, tingling or bowel/ bladder incontinence. Patient using a cane for assistance with ambulation. Patient still had her [place] collar on and stated she wanted it off. She noted she continued with her bone growth stimulator. There was concern for a new upper motor neuron finding that was not perviously documented. She was to obtain a CT myelogram of the cervical spine as she could not obtain an MRI due to her bladder stimulator. She was to follow up once completed, prompting her visit today. Today she states she continues with very little cervical pain and headaches, but states the headaches are unrelated to her cervical spine. Denies any radicular symptoms. Continues with left hand numbness. She continues to be off balance and unsteady with use of a cane, but reports this is improving. Denies any falls, loss of bowel or bladder. She has been complaint with her cervical collar. Notes she continues with her bone growth stimulator. She presents for imaging review, evaluation and plan of care. Symptoms: Posterior cervical pain, left hand numbness. Headaches, gait imbalance and use of a cane. Smoker: denies Diabetic: denies Anticoagulants / Antiplatelets: denies Occupation: [employer] PREVIOUS CONSERVATIVE TREATMENTS: [place] collar Ultram Bone growth stimulator. PREVIOUS SURGERY: None PAIN EVALUATION No data found in the last 1 encounters. PAST MEDICAL HISTORY Diagnosis Date Arthritis of both hands 05/05/2016 Asthma 03/11/2010 Cervical disc disease 06/06/2013 Dementia without behavioral disturbance (HCC) 10/11/2022 Depression, recurrent (HCC) 10/11/2022 Diarrhea Diffuse cystic mastopathy 11/03/2005 Elevated CK 04/26/2012 Esophageal reflux 11/03/2005 Fracture of skull (HCC) 02/16/2023 Hyperlipidemia 04/26/2012 Hypothyroidism, acquired 08/04/2022 Impingement syndrome of right shoulder 10/11/2016 Irritable bowel syndrome with diarrhea 05/31/2018 Mild intermittent asthma, uncomplicated 11/23/2022 Neurogenic bladder, NOS Odontoid fracture (HCC) 08/20/2023 Other and unspecified hyperlipidemia Other forms of migraine Overactive bladder 02/12/2009 Primary localized osteoarthrosis, lower leg Rotator cuff syndrome 02/12/2009 Situational depression 05/31/2018 Statin intolerance 07/03/2018 Supraspinatus tendonitis 12/06/2012 Tear of biceps tendon 05/18/2017 Unspecified sleep apnea Urinary incontinence 03/11/2010 PAST SURGICAL HISTORY Procedure Laterality Date ADENOIDECTOMY PRIMARY Adenoidectomy (more content not included)...[facility]09-23-2024 Instructions* Patient Instructions* Dinah Melgar MD - 01/30/2024 9:39 AM EDT BONE MINERAL DENSITY PATIENT INSTRUCTIONS Bone mineral density testing measures the amount of calcium in certain parts of your bones. This information determines how strong your bones are. The test is used to detect osteoporosis, a disease in which the bone's mineral content and density are low, increasing a person's risk of fractures. Thelumbar spine (lower back) and the hip are the skeletal sites usually examined. For the test, remember that: 1. You cannot take this test if you are . 2. Eat a normal diet on the day of the test. 3. Take your medications as you normally would. 4. DO NOT take calcium supplements (such as Tums) for 24 hours before the test. 5. On the day of the test, leave valuables (jewelry or credit cards) at home. 6. The test should be performed prior to oral, rectal or IV contrast studies, or at least 7 days after any of these studies. For the test, you may be asked to wear a hospital gown. You will lie on your back, on a padded table, in a comfortable position. Generally, you can resume your usual activities immediately. documented in this encounterDetwiler [facility]09-23-2024 NoteHNO ID: [id number] Author: DINAH MELGAR MD Service: ? Author Type: Physician Type: Progress Notes Filed: 01/30/2024 17:23 Note Text: Patient presents with: Follow Up HPI: Patient presents today for office visit for follow up. Follows with Neurosurgery. Had noted new left hand numbness at her last ov. Nothing new since. Upcoming appt this week. Note was copied and pasted, without alteration from: Dr Delgado's last note Unfortunately today Georgina reports that she did not get the request to obtain cervical x-rays. She reports that she is wearing her bone growth stimulator diligently. My concern today is that she has new upper motor neuron findings that have not been previously documented. She has a bladder stimulator in place that may prevent obtaining a cervical MR. We will check into whether this is likely be MR-compatible. If it is not I think we will need to proceed with a CT myelogram. I would like to see her again a few days after the CT myelogram has been completed when the report is available. I think there is a bit of a waiting list for CT milligram at the moment but hopefully we will be able to get this investigation completed before too long if it is required. I have cautioned Georgina that we often keep people in a collar with a bone growth stimulator for a period of 9 months and so it is unlikely that I will be able to recommend collar removal in the near future. Denies any chest pain or shortness of breath. Sees pulmonary today Mentions she has gained weight so this makes things harder. Has some chronic edema. Uses compression stockings. Sees Podiatry. Her knees bother her. Hard to walk. Ambulates with a cane. Wants to wait on checking the knees. No falls. Has some fatigue. Last tsh was in 07/02. Has issues losing weight. No gi changes. Some mild changes in the bowels or the last week and a half. Has a stool softener since not as active but not using. No blood or black stools. Moods are stable. Benefiting from naya tx. Uses cpap nightly. Reviewed print out from [employer]. Her AHI is improved from 60.9 to 14.4. they believe she would benefit from new setting on her cpap of 8-15 cm H20. If not improving. May consider sleep referral. CT myelogram: IMPRESSION: Stable nonunion type II odontoid fracture. Stable 1.4 cm lytic lesion in the dens in a nonaggressive appearance. Degenerative changes and OPLL. Resultant ventricle cord deformity at C3-4 through C5-6. Moderate to severe foraminal stenosis at bilateral C5-6. Anatomic Variant: None. Assume 7 cervical vertebrae with counting from the craniocervical junction. MEDICATIONS: Current Outpatient Medications Medication Sig ipratropium bromide (ATROVENT) 42 mcg (0.06 %) nasal spray Use 2 Sprays in the nose three times a day. mirabegron (MYRBETRIQ) 50 mg Tb24 Take 1 tablet by mouth once daily. pantoprazole DR (PROTONIX) 40 mg tablet Take 1 tablet by mouth once daily. levothyroxine (SYNTHROID) 50 mcg tablet TAKE 1 TABLET BY MOUTH ONCE DAILY AT 6 AM carvedilol (COREG) 6.25 mg tablet Take 1 tablet by mouth two times a day with meals. FLUoxetine (PROZAC) 20 mg capsule Take 1 capsule by mouth every afternoon. famotidine (PEPCID) 40 mg tablet Take 1 tablet by mouth once daily. ezetimibe (ZETIA) 10 mg tablet Take 1 tablet by mouth once daily. albuterol HFA (PROVENTIL HFA, VENTOLIN HFA) 90 mcg/actuation inhaler Inhale 2 Puffs as instructed every 4 hours as needed. No current facility-administered medications for this visit. ALLERGIES: ALLERGIES Allergen Reactions Vioxx [Rofecoxib] Zocor [Simvastatin] Other: See Comments elevated CPK PAST MEDICAL HISTORY Diagnosis Date Arthritis of both hands 05/05/2016 Asthma 03/11/2010 Cervical disc disease 06/06/2013 Dementia without behavioral disturbance (HCC) 10/11/2022 Depression, recurrent ([facility]) 10/11/2022 Diarrhea Diffuse cystic mastopathy 11/03/2005 Elevated CK 04/26/2012 Esophageal reflux 11/03/2005 Fracture of skull ([facility]) 02/16/2023 Hyperlipidemia 04/26/2012 Hypothyroidism, acquired 08/04/2022 Impingement syndrome of right shoulder 10/11/2016 Irritable bowel syndrome with diarrhea 05/31/2018 Mild intermittent asthma, uncomplicated 11/23/2022 Neurogenic bladder, NOS Odontoid fracture ([facility]) 08/20/2023 Other and unspecified hyperlipidemia Other forms of migraine Overactive bladder 02/12/2009 Primary localized osteoarthrosis, lower leg Rotator cuff syndrome 02/12/2009 Situational depression 05/31/2018 Statin intolerance 07/03/2018 Supraspinatus tendonitis 12/06/2012 Tear of biceps tendon 05/18/2017 Unspecified sleep apnea Urinary incontinence 03/11/2010 PAST SURGICAL HISTORY Procedure Laterality Date ADENOIDECTOMY PRIMARY Adenoidectomy APPENDECTOMY COLONOSCOPY W/BIOPSY SINGLE/MULTIPLE 06/21/11 DILATION AND CURETTAGE DXAND/THER NONOBSTETRIC Dilation AND curettage LAPAROSCOPY SURG CHOLECYSTECTOMY 07-15-06 Cholecystectomy, lap (more content not included)...[facility]09-23-2024 History of Present illness Narrative* Dinah Melgar MD - 01/30/2024 9:08 AM EDT Patient presents with: Follow Up HPI: Patient presents today for office visit for follow up. Follows with Neurosurgery. Had noted new left hand numbness at her last ov. Nothing new since. Upcoming appt this week. Note was copied and pasted, without alteration from: Dr Delgado's last note Unfortunately today Georgina reports that she did not get the request to obtain cervical x-rays. She reports that she is wearing her bone growth stimulator diligently. My concern today is that she has new upper motor neuron findings that have not been previously documented. She has a bladder stimulator in place that may prevent obtaining a cervical MR. We will check into whether this is likely be MR-compatible. If it is not I think we will need to proceed with a CT myelogram. I would like to see her again a few days after the CT myelogram has been completed when the report is available. I think there is a bit of a waiting list for CT milligram at the moment but hopefully we will be able to getthis investigation completed before too long if it is required. I have cautioned Georgina that we often keep people in a collar with a bone growth stimulator for a period of 9 months and so it is unlikely that I will be able to recommend collar removal in the near future. Denies any chest pain or shortness of breath. Sees pulmonary today Mentions she has gained weight so this makes things harder. Has some chronic edema. Uses compression stockings. Sees Podiatry. Her knees bother her. Hard to walk. Ambulates with a cane. Wants to wait on checking the knees. No falls. Has some fatigue. Last tsh was in 07/02. Has issues losing weight. No gi changes. Some mild changes in the bowels or the last week and a half. Has a stool softener since not as active but not using. No blood or black stools. Moods are stable. CT myelogram: IMPRESSION: Stable nonunion type II odontoid fracture. Stable 1.4 cm lytic lesion in the dens in a nonaggressive appearance. Degenerative changes and OPLL. Resultant ventricle cord deformity at C3-4 through C5-6. Moderate to severe foraminal stenosis at bilateral C5-6. Anatomic Variant: None. Assume 7 cervical vertebrae with counting from the craniocervical junction. MEDICATIONS: Current Outpatient Medications Medication Sig ipratropium bromide (ATROVENT) 42 mcg (0.06 %) nasal spray Use 2 Sprays in the nose three times a day. mirabegron (MYRBETRIQ) 50 mg Tb24 Take 1 tablet by mouth once daily. pantoprazole DR (PROTONIX) 40 mg tablet Take 1 tablet by mouth once daily. levothyroxine (SYNTHROID) 50 mcg tablet TAKE 1 TABLET BY MOUTH ONCE DAILY AT 6 AM carvedilol (COREG) 6.25 mg tablet Take 1 tablet by mouth two times a day with meals. FLUoxetine (PROZAC) 20 mg capsule Take 1 capsule by mouth every afternoon. famotidine (PEPCID) 40 mg tablet Take 1 tablet by mouth once daily. ezetimibe (ZETIA) 10 mg tablet Take 1 tablet by mouth once daily. albuterol HFA (PROVENTIL HFA, VENTOLIN HFA) 90 mcg/actuation inhaler Inhale 2 Puffs as instructed every 4 hours as needed. No current facility-administered medications for this visit. ALLERGIES: ALLERGIES Allergen Reactions Vioxx [Rofecoxib] Zocor [Simvastatin] Other: See Comments elevated CPK PAST MEDICAL HISTORY Diagnosis Date Arthritis of both hands 05/05/2016 Asthma 03/11/2010 Cervical disc disease 06/06/2013 Dementia without behavioral disturbance (HCC) 10/11/2022 Depression, recurrent ([facility]) 10/11/2022 Diarrhea Diffuse cystic mastopathy 11/03/2005 Elevated CK 04/26/2012 Esophageal reflux 11/03/2005 Fracture of skull (HCC) 02/16/2023 Hyperlipidemia 04/26/2012 Hypothyroidism, acquired 08/04/2022 Impingement syndrome of right shoulder 10/11/2016 Irritable bowel syndrome with diarrhea 05/31/2018 Mild intermittent asthma, uncomplicated 11/23/2022 Neurogenic bladder, NOS Odontoid fracture (HCC) 08/20/2023 Other and unspecified hyperlipidemia Other forms of migraine Overactive bladder 02/12/2009 Primary localized osteoarthrosis, lower leg Rotator cuff syndrome 02/12/2009 Situational depression 05/31/2018 Statin intolerance 07/03/2018 Supraspinatus tendonitis 12/06/2012 Tear of biceps tendon 05/18/2017 Unspecified sleep apnea Urinary incontinence 03/11/2010 PAST SURGICAL HISTORY Procedure Laterality Date ADENOIDECTOMY PRIMARY <AGE 10 Adenoidectomy APPENDECTOMY COLONOSCOPY W/BIOPSY SINGLE/MULTIPLE 06/21/11 DILATION & CURETTAGE DX&/THER NONOBSTETRIC Dilation & curettage LAPAROSCOPY SURG CHOLECYSTECTOMY 07-15-06 Cholecystectomy, lap PAST SURGICAL HISTORY OF N/A 2017 urinary implant device TONSILLECTOMY PRIMARY/SECONDARY <AGE 10 Tonsillectomy VAGINAL HYSTERECTOMY UTERUS 250 GM/< Hysterectomy, vaginal FAMILY HISTORY Problem Relation Age of Onset other (dementia [Other]) Father Heart Father Tremor Father Heart Mother Heart Brother Tremor Daughter Tremor Son Social History Tobacco Use Smoking status: Never Smokeless tobacco: Never Substance Use Topics Alcohol use: No Drug use: No Reviewed current medications, allergies, past medical history, surgical history, family history andsocial history today. REVIEW OF SYSTEMS All other reviewed and negative other than HPI. HEALTH MAINTENANCE: Reviewed health maintenance issues today and recommended the following in detail. Anxiety Screening Never done RSV Vaccine(1 - 1-dose 75+ series) Never done Advance Directive Discussion due on 05/09/2023 Covid-19 Vaccine(2023- season) due on 01/08/2024 Influenza Vaccine(1) due on 01/08/2024 Suggested bone density. VITALS: BP 112/50 Pulse 83 Ht 160 cm (5' 3) Wt 86.8 kg (191 lb 6.4 oz) SpO2 94% BMI 33.90 kg/m Last 4 Encounter Wt Readings: Date: Wt: 12/19/2023 84.4 kg (186 lb) 10/24/2023 84.4 kg (186 lb) 09/16/2023 82.4 kg (181 lb 9.6 oz) 09/12/2023 82.1 kg (181 lb) PHYSICAL EXAMINATION: General appearance: Well appearing, alert, in no acute distress, well-hydrated, well nourished., Wheelchair, and collar in place. Skin: Skin color, texture, turgor normal, no suspicious rashes or lesion Lungs: Lungs clear to auscultation. No wheezing, rhonchi, rales Heart: RRR without murmur, gallop, or rubs. No ectopy Abdomen: Normal abdominal exam, Abdomen soft, non-tender. Bowel sounds normal. No masses, organomegaly Extremities: No deformities, new edema, skin discoloration, clubbing or cyanosis. Good capillary refill. Musculoskeletal: No joint swelling, deformity, or tenderness ASSESSMENT/PLAN: 1. Hyperlipidemia LDL goal <100 - ICD9: 272.4, ICD10: E78.5 (primary diagnosis) - continue meds. 2. Gastroesophageal reflux disease without esophagitis - ICD9: 530.81, ICD10: K21.9 - stable. 3. Hypothyroidism, acquired - ICD9: 244.9, ICD10: E03.9 - check labs. 4. Statin intolerance - ICD9: 995.27, ICD10: Z78.9 - on meds. 5. History of skull fracture - ICD9: V15.51, ICD10: Z87.81 - willing to do bone density. - DXA-AXIAL SKELETON - BD DXA TRABECULAR BONE SCORE (TBS) 6. Balance disorder - ICD9: 781.99, ICD10: R26.89 - no change. 7. Depression, recurrent (HCC) - ICD9: 296.30, ICD10: F33.9 - Continue current medications. Notify us if any difficulties are noted. 8. Need for vaccination - ICD9: V05.9, ICD10: Z23 - INFLUENZA VACCINE, PRSV FREE, AGE 65+ YR, HIGH DOSE, TRIVALENT (FLUZONE HIGH-DOSE) - [employer] COVID-19 VACCINE AGE 12+ YR 9. Encounter for screening examination for other mental health and behavioral disorders - ICD9: V79.8, ICD10: Z13.39 - ANXIETY SCREENING 10. Disorder of bone - ICD9: 733.90, ICD10: M89.9 - DXA-AXIAL SKELETON - BD DXA TRABECULAR BONE SCORE (TBS) 11. Closed odontoid fracture with routine healing - ICD9: V54.17, ICD10: S12.100D - per neurosurgery. Seeing them again this week. - DXA-AXIAL SKELETON - BD DXA TRABECULAR BONE SCORE (TBS) 12. Other osteoporosis - ICD9: 733.09, ICD10: M81.8 - DXA-AXIAL SKELETON - BD DXA TRABECULAR BONE SCORE (TBS) - BASIC METABOLIC PANEL - VITAMIN D 25 HYDROXY 13. Fatigue, unspecified type - ICD9: 780.79, ICD10: R53.83 - THYROID STIMULATING HORMONE - COMPLETE BLOOD COUNT AND DIFFERENTIAL 14. Primary hypertension - ICD9: 401.9, ICD10: I10 - Controlled - Continue current medications 15. Chronic kidney disease, stage 3a (HCC) - ICD9: 585.3, ICD10: N18.31 - follow labs Dinah Melgar MD documented [facility] History of Present illness Narrative* Guillaume Delgado MD, PhD - 12/19/2023 10:30 AM EDT NEUROSURGERY FOLLOW UP OFFICE NOTE Guillaume Delgado MD, PhD Date of visit: December 19, 2023 Patient Name: Ms.Betty Ricky Segura Date of : 1945 Current Age: [age] year old Sex: female MRN/E# [id number] Last Office Visit: Visit date not found Chief Complaint: No chief complaint on file. SUBJECTIVE: HPI The patient presented to [facility] ED on 08/20/2023 af a transfer from an outside hospital follow a fall.She noted she hit her head on the wall. Outside imaging demonstrated a type 2 odontoid fracture (acute vs chronic). She reported multiple falls recently and in the past. She noted 2-3 weeks prior, she fell and endorsed neck pain but did not seek medical attention. No surgical interventions were required at that time. She was to wear a [place] collar at all times. She was to obtain a bone stimulatoroutpatient. She was to follow up in 1 month with repeat imaging. At her last visit on 09/16/2023 she stated she had been doing okay since discharge. She reported midline posterior cervical pain. She denied any radicular symptoms. Denied paresthesia. Denied any weakness. Denied any further falls, loss of bowel or bladder. She had since been using a cane for extra s upport. She was complaint with her cervical collar. She had been using ultram with relief. She was receiving home therapy. She did not receive any information about her bone growth stimulator. There was significant bone loss at the neck of the odontoid process that was caused to believe thatshe likely had a longstanding fracture in that location. It was difficult to tell thought it may beacute. Her xray's did not have any concerns with respect to odontoid displacement or other issues. She was interested in the bone growth stimulator. It was recommended that she follow up in 3 months with repeat imaging, prompting her visit today. Today she states she has continual posterior cervical pain. She denies any radicular symptoms. Patient states over the last week or so she has noticed left hand numbness. She reports using Tylenol asneeded for the pain. She denies dexterity issues. She did not get her x-rays prior to her visit today. She denies any recent falls, numbness, tingling or bowel/ bladder incontinence. Patient using a cane for and assistance with ambulation. Patient still has her [place] collar on and states she wants it off. She presents for evaluation and plan of care. Symptoms: Posterior cervical pain, left hand numbness. Smoker: denies Diabetic: denies Anticoagulants / Antiplatelets: denies Occupation: [employer] PREVIOUS CONSERVATIVE TREATMENTS: [place] collar Ultram PREVIOUS SURGERY: None PAIN EVALUATION No data found in the last 1 encounters. PAST MEDICAL HISTORY Diagnosis Date Arthritis of both hands 05/05/2016 Asthma 03/11/2010 Cervical disc disease 06/06/2013 Dementia without behavioral disturbance (HCC) 10/11/2022 Depression, recurrent ([facility]) 10/11/2022 Diarrhea Diffuse cystic mastopathy 11/03/2005 Elevated CK 04/26/2012 Esophageal reflux 11/03/2005 Fracture of skull ([facility]) 02/16/2023 Hyperlipidemia 04/26/2012 Hypothyroidism, acquired 08/04/2022 Impingement syndrome of right shoulder 10/11/2016 Irritable bowel syndrome with diarrhea 05/31/2018 Mild intermittent asthma, uncomplicated 11/23/2022 Neurogenic bladder, NOS Odontoid fracture ([facility]) 08/20/2023 Other and unspecified hyperlipidemia Other forms of migraine Overactive bladder 02/12/2009 Primary localized osteoarthrosis, lower leg Rotator cuff syndrome 02/12/2009 Situational depression 05/31/2018 Statin intolerance 07/03/2018 Supraspinatus tendonitis 12/06/2012 Tear of biceps tendon 05/18/2017 Unspecified sleep apnea Urinary incontinence 03/11/2010 PAST SURGICAL HISTORY Procedure Laterality Date ADENOIDECTOMY PRIMARY <AGE 10 Adenoidectomy APPENDECTOMY COLONOSCOPY W/BIOPSY SINGLE/MULTIPLE 06/21/11 DILATION & CURETTAGE DX&/THER NONOBSTETRIC Dilation & curettage LAPAROSCOPY SURG CHOLECYSTECTOMY 07-15-06 Cholecystectomy, lap PAST SURGICAL HISTORY OF N/A 2017 urinary implant device TONSILLECTOMY PRIMARY/SECONDARY <AGE 10 Tonsillectomy VAGINAL HYSTERECTOMY UTERUS 250 GM/< Hysterectomy, vaginal FAMILY HISTORY Problem Relation Age of Onset other (dementia [Other]) Father Heart Father Tremor Father Heart Mother Heart Brother Tremor Daughter Tremor Son ALLERGIES Allergen Reactions Vioxx [Rofecoxib] Zocor [Simvastatin] Other: See Comments elevated CPK Current Outpatient Medications Medication Sig Dispense Refill mirabegron (MYRBETRIQ) 50 mg Tb24 Take 1 tablet by mouth once daily. [address] (PROTONIX) 40 mg tablet Take 1 tablet by mouth once daily. 90 tablet 3 levothyroxine (SYNTHROID) 50 mcg tablet TAKE 1 TABLET BY MOUTH ONCE DAILY AT 6 AM 90 tablet 3 carvedilol (COREG) 6.25 mg tablet Take 1 tablet by mouth two times a day with meals. 180 tablet 3 FLUoxetine (PROZAC) 20 mg capsule Take 1 capsule by mouth every afternoon. 90 capsule 3 traMADol (ULTRAM) 50 mg tablet TAKE 1 TABLET BY MOUTH THREE TIMES DAILY (EVERY 8 HOURS) NEEDED FOR LEVEL 4-10 PAIN IPRATROPIUM BROMIDE NASAL Use in the nose. famotidine (PEPCID) 40 mg tablet Take 1 tablet by mouth once daily. 90 tablet 1 ezetimibe (ZETIA) 10 mg tablet Take 1 tablet by mouth once daily. 90 tablet 3 albuterol HFA (PROVENTIL HFA, VENTOLIN HFA) 90 mcg/actuation inhaler Inhale 2 Puffs as instructed every 4 hours as needed. 18 g 3 No current facility-administered medications for this visit. REVIEW OF SYSTEMS Review of Systems Musculoskeletal: Positive for neck pain. Neurological: Positive for numbness. OBJECTIVE: There were no vitals taken for this visit. Physical Exam I repeated a physical examination with Georgina today. She did not have strength or sensory deficits in her upper extremities but she did have a marked left-sided Trevor sign which is new. By 2 prior examinations documented absence of upper motor neuron findings. Data Review IMAGING STUDIES: XR Cervical: Not completed Assessment and Plan Unfortunately today Georgina reports that she did not get the request to obtain cervical x-rays. She reports that she is wearing her bone growth stimulator diligently. My concern today is that she has new upper motor neuron findings that have not been previously documented. She has a bladder stimulator in place that may prevent obtaining a cervical MR. We will check into whether this is likely be MR-compatible. If it is not I think we will need to proceed with a CT myelogram. I would like to see her again a few days after the CT myelogram has been completed when the report is available. I think there is a bit of a waiting list for CT milligram at the moment but hopefully we will be able to getthis investigation completed before too long if it is required. I have cautioned Georgina that we often keep people in a collar with a bone growth stimulator for a period of 9 months and so it is unlikely that I will be able to recommend collar removal in the near future. Attestation: The following portions of the patient's history were reviewed, confirmed, and updated as necessary: allergies, current medications, past family history, past medical history, past socialhistory, past surgical history, problem list, HPI, and ROS obtained by others. Some elements may be copied from a previous office note and have been reviewed/updated where appropriate. All portions reflect current medical decision making from today. The clinical and radiographic findings as well as the risks, benefits and alternatives of treatmenthave been reviewed in detail with the patient. The patient was advised to call the office if symptoms worsen or new symptoms develop. The patient expressed understanding and is in agreement with plan. Guillaume Delgado MD, PhD This note was partially generated using Synker voice recognition system, and there may be some incorrect words, spellings, and punctuation that were not noted in checking the note before saving. documented in this encounterDetw[facility]08-12-[facility]24 NoteHNO ID: [id number] Author: GUILLAUME DELGADO MD, PhD Service: ? Author Type: Physician Type: Progress Notes Filed: 12/19/2023 11:17 Note Text: NEUROSURGERY FOLLOW UP OFFICE NOTE Guillaume Delgado MD, PhD Date of visit: December 19, 2023 Patient Name: Ms.Betty Ricky Segura Date of : 1945 Current Age: [age] year old Sex: female MRN/E# [id number] Last Office Visit: Visit date not found Chief Complaint: No chief complaint on file. SUBJECTIVE: HPI The patient presented to [facility] ED on 08/20/2023 af a transfer from an outside hospital follow a fall. She noted she hit her head on the wall. Outside imaging demonstrated a type 2 odontoid fracture (acute vs chronic). She reported multiple falls recently and in the past. She noted 2-3 weeks prior, she fell and endorsed neck pain but did not seek medical attention. No surgical interventions were required at that time. She was to wear a [place] collar at all times. She was to obtain a bone stimulator outpatient. She was to follow up in 1 month with repeat imaging. At her last visit on 09/16/2023 she stated she had been doing okay since discharge. She reported midline posterior cervical pain. She denied any radicular symptoms. Denied paresthesia. Denied any weakness. Denied any further falls, loss of bowel or bladder. She had since been using a cane for extra support. She was complaint with her cervical collar. She had been using ultram with relief. She was receiving home therapy. She did not receive any information about her bone growth stimulator. There was significant bone loss at the neck of the odontoid process that was caused to believe that she likely had a longstanding fracture in that location. It was difficult to tell thought it may be acute. Her xray's did not have any concerns with respect to odontoid displacement or other issues. She was interested in the bone growth stimulator. It was recommended that she follow up in 3 months with repeat imaging, prompting her visit today. Today she states she has continual posterior cervical pain. She denies any radicular symptoms. Patient states over the last week or so she has noticed left hand numbness. She reports using Tylenol as needed for the pain. She denies dexterity issues. She did not get her x-rays prior to her visit today. She denies any recent falls, numbness, tingling or bowel/ bladder incontinence. Patient using a cane for and assistance with ambulation. Patient still has her [place] collar on and states she wants it off. She presents for evaluation and plan of care. Symptoms: Posterior cervical pain, left hand numbness. Smoker: denies Diabetic: denies Anticoagulants / Antiplatelets: denies Occupation: [employer] PREVIOUS CONSERVATIVE TREATMENTS: [place] collar Ultram PREVIOUS SURGERY: None PAIN EVALUATION No data found in the last 1 encounters. PAST MEDICAL HISTORY Diagnosis Date Arthritis of both hands 05/05/2016 Asthma 03/11/2010 Cervical disc disease 06/06/2013 Dementia without behavioral disturbance (HCC) 10/11/2022 Depression, recurrent ([facility]) 10/11/2022 Diarrhea Diffuse cystic mastopathy 11/03/2005 Elevated CK 04/26/2012 Esophageal reflux 11/03/2005 Fracture of skull ([facility]) 02/16/2023 Hyperlipidemia 04/26/2012 Hypothyroidism, acquired 08/04/2022 Impingement syndrome of right shoulder 10/11/2016 Irritable bowel syndrome with diarrhea 05/31/2018 Mild intermittent asthma, uncomplicated 11/23/2022 Neurogenic bladder, NOS Odontoid fracture ([facility]) 08/20/2023 Other and unspecified hyperlipidemia Other forms of migraine Overactive bladder 02/12/2009 Primary localized osteoarthrosis, lower leg Rotator cuff syndrome 02/12/2009 Situational depression 05/31/2018 Statin intolerance 07/03/2018 Supraspinatus tendonitis 12/06/2012 Tear of biceps tendon 05/18/2017 Unspecified sleep apnea Urinary incontinence 03/11/2010 PAST SURGICAL HISTORY Procedure Laterality Date ADENOIDECTOMY PRIMARY Adenoidectomy APPENDECTOMY COLONOSCOPY W/BIOPSY SINGLE/MULTIPLE 06/21/11 DILATION AND CURETTAGE DXAND/THER NONOBSTETRIC Dilation AND curettage LAPAROSCOPY SURG CHOLECYSTECTOMY 07-15-06 Cholecystectomy, lap PAST SURGICAL HISTORY OF N/A 2016 urinary implant device TONSILLECTOMY PRIMARY/SECONDARY Tonsillectomy VAGINAL HYSTERECTOMY UTERUS 250 GM/< Hysterectomy, vaginal FAMILY HISTORY Problem Relation Age of Onset other (dementia [Other]) Father Heart Father Tremor Father Heart Mother Heart Brother Tremor Daughter Tremor Son ALLERGIES Allergen Reactions Vioxx [Rofecoxib] Zocor [Simvastatin] Other: See Comments elevated CPK Current Outpatient Medications Medication Sig Dispense Refill mirabegron (MYRBETRIQ) 50 mg Tb24 Take 1 tablet by mouth once daily. [address] (PROTONIX) 40 mg tablet Take 1 tablet by mouth once daily. 90 tablet 3 levothyroxine (SYNTHROID) 50 mcg tablet TAKE 1 TABLET BY MOUTH ONCE DAILY (more content not included)...[facility]06-17-2024 NoteHNO ID: [id number] Author: DINAH MELGAR MD Service: ? Author Type: Physician Type: Progress Notes Filed: 10/24/2023 12:06 Note Text: Patient presents with: Follow Up HPI: Patient presents today for office visit for follow up. Sees neurosurgery again in December. Using her cane. No falls. Mentally is doing well. No constipation. No chest pain Has a cpap and oxygen at hs from sleep med/pulmonary. Still has some pain. Neuro surgery declined pain meds. Mostly using tramadol if goes away etc. Does help her to function. Discussed risks and benefits of opiates. No misuse or abuse. Discussed that if chronic use occurs, might need to see pain management. Note was copied and pasted, without alteration from last ov: HOSPITAL/ER FOLLOW UP: Recently in [facility] and then transferred to [facility] rehab Date of [facility] 08/22-09/08/23. Today is day two after discharge (normal working hours) [facility] is following. Undergoing physical therapy. Wearing her collar. Mentally is back to baseline. Is not taking her buspar that was discussed in hospital discharge. Bp is well controlled. No chest pain or shortness of breath. No worsening edema. No new neuro issues. No black or bloody stools. Was having constipation when her heme positive stool was done. She is not anemic. We discussed rechecking at some point. We discussed adding colace. Rarely using tramadol. Has appointments with pulmonary at [facility] for sleep study follow up. Has follow up neurosurgery. [facility] is following. Her daughter is keeping close tabs on her. Is on oxygen at hs. See discharge from [facility], copied and pasted: Diagnosis Discharge Diagnosis (1) Debility: Status: Acute Code(s): R53.81 - Other malaise Plan: Due to non-displaced fractures of the dens due to falls. (2) Frequent falls: Status: Chronic Code(s): R29.6 - Repeated falls Plan: Related to untreated sleep apnea, sedating medications, elevated TSH, etc. (3) Closed type II fracture of odontoid process: Status: Inactive Code(s): S12.110A - Anterior displaced Type II dens fracture, initial encounter for closed fracture (4) Laceration of scalp: Status: Inactive Code(s): S01.01XA - Laceration without foreign body of scalp, initial encounter Qualifiers: Encounter type: subsequent encounter Qualified Code(s): S01.01XD - Laceration without foreign body of scalp, subsequent encounter Plan: Healed. Radha removed. (5) Closed head injury: Status: Acute Code(s): S09.90XA - Unspecified injury of head, initial encounter Qualifiers: Encounter type: subsequent encounter Qualified Code(s): S09.90XD - Unspecified injury of head, subsequent encounter (6) Hypothyroid: Status: Chronic Code(s): E03.9 - Hypothyroidism, unspecified Qualifiers: Hypothyroidism type: acquired Qualified Code(s): E03.9 - Hypothyroidism, unspecified Plan: TSH was elevated. Levothyroxine dose increased from 25 mcg daily to 50 mcg daily. Will need a follow up TSH/T4 in 4-6 weeks. (7) Elevated TSH: Status: Acute Code(s): R79.89 - Other specified abnormal findings of blood chemistry (8) Concussion: Status: Inactive Code(s): S06.0XAA - Concussion with loss of consciousness status unknown, initial encounter Qualifiers: Encounter type: subsequent encounter Loss of consciousness presence/duration: without LOC Qualified Code(s): S06.0X0D - Concussion withoutloss of consciousness, subsequent encounter (9) Nausea and vomiting: Status: Resolved Code(s): R11.2 - Nausea with vomiting, unspecified Qualifiers: Vomiting type: unspecified Qualified Code(s): R11.2 - Nausea with vomiting, unspecified Plan: Resolved with discontinuation of Aricept and decreasing the dose of Prozac. Mayconsider restarting Aricept at 5 mg as an OP to see if she can tolerate a lower dose without recurrent N/V. (10) Heme positive stool: Status: Acute Code(s): R19.5 - Other fecal abnormalities Plan: Heme positive stool but with no anemia. Will defer workup to her family practitioner. (11) HTN (hypertension): Status: Chronic Code(s): I10 - Essential (primary) hypertension Qualifiers: Hypertension type: unspecified Qualified Code(s): I10 - Essential (primary) hypertension Plan: Catecholamine driven. Good response to Coreg but, BP still goes up with anxietyand we have needed to give Hydralazine at times. doing better with the additionof Buspar to the drug regimen. On 5 mg BID at DC......will likely need to increase the dose going forward. Tolerating with no adverse side effects at thetime of DC from rehab. (12) Lightheadedness: Status: Resolved Code(s): R42 - Dizziness and giddiness Plan: Dur to decreased intravascular volume at DC. Doing much better with fluid intake at the time of DC from rehab. (13) NAYA (obstructive sleep apnea): Status: Chronic Code(s): G47.33 - Obstructive sleep apnea (adult) (pediatric) Plan: Scheduled for a (more content not included)...[facility] 10-24-2023 History of Present illness Narrative* Dinah Melgar MD - 10/24/2023 11:35 AM EDT Patient presents with: Follow Up HPI: Patient presents today for office visit for follow up. Sees neurosurgery again in December. Using her cane. No falls. Mentally is doing well. No constipation. No chest pain Has a cpap and oxygen at hs from sleep med/pulmonary. Still has some pain. Neuro surgery declined pain meds. Mostly using tramadol if goes away etc. Does help her to function. Discussed risks and benefits of opiates. No misuse or abuse. Discussed that if chronic use occurs, might need to see pain management. Note was copied and pasted, without alteration from last ov: HOSPITAL/ER FOLLOW UP: Recently in [facility] and then transferred to [facility] rehab Date of [facility] 08/22-09/08/23. Today is day two after discharge (normal working hours) [facility] is following. Undergoing physical therapy. Wearing her collar. Mentally is back to baseline. Is not taking her buspar that was discussed in hospital discharge. Bp is well controlled. No chest pain or shortness of breath. No worsening edema. No new neuro issues. No black or bloody stools. Was having constipation when her heme positive stool was done. She is not anemic. We discussed rechecking at some point. We discussed adding colace. Rarely using tramadol. Has appointments with pulmonary at [facility] for sleep study follow up. Has follow up neurosurgery. [facility] is following. Her daughter is keeping close tabs on her. Is on oxygen at hs. See discharge from [facility], copied and pasted: Diagnosis Discharge Diagnosis (1) Debility: Status: Acute Code(s): R53.81 - Other malaise Plan: Due to non-displaced fractures of the dens due to falls. (2) Frequent falls: Status: Chronic Code(s): R29.6 - Repeated falls Plan: Related to untreated sleep apnea, sedating medications, elevated TSH, etc. (3) Closed type II fracture of odontoid process: Status: Inactive Code(s): S12.110A - Anterior displaced Type II dens fracture, initial encounter for closed fracture (4) Laceration of scalp: Status: Inactive Code(s): S01.01XA - Laceration without foreign body of scalp, initial encounter Qualifiers: Encounter type: subsequent encounter Qualified Code(s): S01.01XD - Laceration without foreign body of scalp, subsequent encounter Plan: Healed. Radha removed. (5) Closed head injury: Status: Acute Code(s): S09.90XA - Unspecified injury of head, initial encounter Qualifiers: Encounter type: subsequent encounter Qualified Code(s): S09.90XD - Unspecified injury of head, subsequent encounter (6) Hypothyroid: Status: Chronic Code(s): E03.9 - Hypothyroidism, unspecified Qualifiers: Hypothyroidism type: acquired Qualified Code(s): E03.9 - Hypothyroidism, unspecified Plan: TSH was elevated. Levothyroxine dose increased from 25 mcg daily to 50 mcg daily. Will need a follow up TSH/T4 in 4-6 weeks. (7) Elevated TSH: Status: Acute Code(s): R79.89 - Other specified abnormal findings of blood chemistry (8) Concussion: Status: Inactive Code(s): S06.0XAA - Concussion with loss of consciousness status unknown, initial encounter Qualifiers: Encounter type: subsequent encounter Loss of consciousness presence/duration: without LOC QualifiedCode(s): S06.0X0D - Concussion withoutloss of consciousness, subsequent encounter (9) Nausea and vomiting: Status: Resolved Code(s): R11.2 - Nausea with vomiting, unspecified Qualifiers: Vomiting type: unspecified Qualified Code(s): R11.2 - Nausea with vomiting, unspecified Plan: Resolved with discontinuation of Aricept and decreasing the dose of Prozac. Mayconsider restarting Aricept at 5 mg as an OP to see if she can tolerate a lower dose without recurrent N/V. (10) Heme positive stool: Status: Acute Code(s): R19.5 - Other fecal abnormalities Plan: Heme positive stool but with no anemia. Will defer workup to her family practitioner. (11) HTN (hypertension): Status: Chronic Code(s): I10 - Essential (primary) hypertension Qualifiers: Hypertension type: unspecified Qualified Code(s): I10 - Essential (primary) hypertension Plan: Catecholamine driven. Good response to Coreg but, BP still goes up with anxietyand we have needed to give Hydralazine at times. doing better with the additionof Buspar to the drug regimen. On 5 mg BID at [place]......will likely need to increase the dose going forward. Tolerating with no adverse side effects at thetime of DC from rehab. (12) Lightheadedness: Status: Resolved Code(s): R42 - Dizziness and giddiness Plan: Dur to decreased intravascular volume at DC. Doing much better with fluid intake at the time of DC from rehab. (13) NAYA (obstructive sleep apnea): Status: Chronic Code(s): G47.33 - Obstructive sleep apnea (adult) (pediatric) Plan: Scheduled for a sleep study on 09/08/23 and then will follow up with pulmonary medicine. Discharging home on nasal O2 when sleeping. (14) Depression: Status: Chronic Code(s): F32.A - Depression, unspecified Qualifiers: Depression Type: unspecified Qualified Code(s): F32.A - Depression, unspecified Plan: Prozac dose decreased to 20 mg daily due to chronic N/V. No sx of depression atthe time of DC from rehab. Anxiety is not adequately controlled even with the 40 mg dose of Prozac. Buspar was added to the drug regimen for better control of anxiety. (15) Anxiety: Status: Chronic Code(s): F41.9 - Anxiety disorder, unspecified Plan: Tolerating 5 mg BID of Buspar at [place] but, anxiety is not yet adequately controlled. Will defer increasing the dose in another 5-[address] Melgar. Plan 1. DC home with [facility]. 2. Dtr will continue to fill pill boxes for her and her son will continue to manage her finances. 3. Would avoid medications on the Beer's list if at all possible 4. Sleep study tonight and then will follow up with pulmonary to discuss the results 5. No driving while she is in a cervical collar. I am recommending that in light of dementia/poor memory that prior to resuming driving she follow up with driving assessment program at [facility] to be evaluated to make sureshe will be safe to drive. Information about the program and referral made about SW. 6. Has a follow up appt scheduled with Dr. Melgar. Will also need to follow up with Dr. Delgado for the fracture of the dens. 7. Continue Atrovent nasal spray for chronic rhinitis rather than restarting anantihistamine to avoid sedation and falls. 8. She had N/V despite being on a PPI and a H2 yeni. N/V resolved with decreasing the dose of the Prozac and discontinuing the Aricept. Likely does not need both a PPI and a H2 yeni for GERD. Will defer to Dr. Melgar to make that determination. See discharge summary: copied and pasted. ADMIT DATE: 08/20/2023 DISCHARGE DATE: 08/23/23 MY DOCTORS AND MEDICAL TEAM: My Main Hospital Doctor: Cassandra Reeves DO Primary Care Provider: Dinah Melgar MD My Medical Team Members: Treatment Team: Attending Provider: Cassandra Reeves DO Primary Service: RUEL CRUZ MY CONDITION AT DISCHARGE: Improved REASON I WAS IN THE HOSPITAL: odontoid fracture SUMMARY OF WHAT HAPPENED WHILE I WAS IN THE HOSPITAL: 78 yo F who presented after fall, found to have an odontoid fracture. Seen by neurosurgery who said no surgical intervention but to maintain C-collar and f/u in 2 weeks for repeat imaging. Seen by PT/OT and discharged to SNF in stable condition. OTHER PROBLEMS/DIAGNOSIS: Principal Problem: RALEIGH (acute kidney injury) (HCC) Active Problems: Odontoid fracture (HCC) Asthma Depression, recurrent (HCC) Falls frequently Closed head injury Resolved Problems: * No resolved hospital problems. * OPERATIONS PERFORMED WHILE IN THE HOSPITAL: None IMPORTANT TEST/PROCEDURES: No procedures performed TEST RESULTS NOT AVAILABLE AT THIS TIME: No pending results MEDICATIONS: Current Outpatient Medications Medication Sig levothyroxine (SYNTHROID) 50 mcg tablet TAKE 1 TABLET BY MOUTH ONCE DAILY AT 6 AM carvedilol (COREG) 6.25 mg tablet Take 1 tablet by mouth two times a day with meals. FLUoxetine (PROZAC) 20 mg capsule Take 1 capsule by mouth every afternoon. pantoprazole DR (PROTONIX) 40 mg tablet Take 1 tablet by mouth once daily. traMADol (ULTRAM) 50 mg tablet TAKE 1 TABLET BY MOUTH THREE TIMES DAILY (EVERY 8 HOURS) NEEDED FOR LEVEL 4-10 PAIN IPRATROPIUM BROMIDE NASAL Use in the nose. famotidine (PEPCID) 40 mg tablet Take 1 tablet by mouth once daily. ezetimibe (ZETIA) 10 mg tablet Take 1 tablet by mouth once daily. mirabegron (MYRBETRIQ) 50 mg Tb24 Take 25 mg by mouth once daily. albuterol HFA (PROVENTIL HFA, VENTOLIN HFA) 90 mcg/actuation inhaler Inhale 2 Puffs as instructed every 4 hours as needed. No current facility-administered medications for this visit. ALLERGIES: ALLERGIES Allergen Reactions Vioxx [Rofecoxib] Zocor [Simvastatin] Other: See Comments elevated CPK PAST MEDICAL HISTORY Diagnosis Date Arthritis of both hands 05/05/2016 Asthma 03/11/2010 Cervical disc disease 06/06/2013 Dementia without behavioral disturbance (HCC) 10/11/2022 Depression, recurrent ([facility]) 10/11/2022 Diarrhea Diffuse cystic mastopathy 11/03/2005 Elevated CK 04/26/2012 Esophageal reflux 11/03/2005 Fracture of skull ([facility]) 02/16/2023 Hyperlipidemia 04/26/2012 Hypothyroidism, acquired 08/04/2022 Impingement syndrome of right shoulder 10/11/2016 Irritable bowel syndrome with diarrhea 05/31/2018 Mild intermittent asthma, uncomplicated 11/23/2022 Neurogenic bladder, NOS Odontoid fracture (HCC) 08/20/2023 Other and unspecified hyperlipidemia Other forms of migraine Overactive bladder 02/12/2009 Primary localized osteoarthrosis, lower leg Rotator cuff syndrome 02/12/2009 Situational depression 05/31/2018 Statin intolerance 07/03/2018 Supraspinatus tendonitis 12/06/2012 Tear of biceps tendon 05/18/2017 Unspecified sleep apnea Urinary incontinence 03/11/2010 PAST SURGICAL HISTORY Procedure Laterality Date ADENOIDECTOMY PRIMARY <AGE 10 Adenoidectomy APPENDECTOMY COLONOSCOPY W/BIOPSY SINGLE/MULTIPLE 06/21/11 DILATION & CURETTAGE DX&/THER NONOBSTETRIC Dilation & curettage LAPAROSCOPY SURG CHOLECYSTECTOMY 07-15-06 Cholecystectomy, lap PAST SURGICAL HISTORY OF N/A 2017 urinary implant device TONSILLECTOMY PRIMARY/SECONDARY <AGE 10 Tonsillectomy VAGINAL HYSTERECTOMY UTERUS 250 GM/< Hysterectomy, vaginal FAMILY HISTORY Problem Relation Age of Onset other (dementia [Other]) Father Heart Father Tremor Father Heart Mother Heart Brother Tremor Daughter Tremor Son Social History Tobacco Use Smoking status: Never Smokeless tobacco: Never Substance Use Topics Alcohol use: No Drug use: No Reviewed current medications, allergies, past medical history, surgical history, family history andsocial history today. REVIEW OF SYSTEMS All other reviewed and negative other than HPI. VITALS: BP 111/67 Pulse 88 Wt 84.4 kg (186 lb) SpO2 92% BMI 32.95 kg/m Last 4 Encounter Wt Readings: Date: Wt: 09/16/2023 82.4 kg (181 lb 9.6 oz) 09/12/2023 82.1 kg (181 lb) 06/13/2023 82.6 kg (182 lb) 06/12/2023 82.6 kg (182 lb) PHYSICAL EXAMINATION: General appearance: Well appearing, alert, in no acute distress, well-hydrated, well nourished. Skin: Skin color, texture, turgor normal, no suspicious rashes or lesions Head: Normocephalic, no masses, lesions, tenderness or abnormalities. Neck: stable in collar. Lungs: Lungs clear to auscultation. No wheezing, rhonchi, rales Heart: RRR without murmur, gallop, or rubs. No ectopy Abdomen: Normal abdominal exam, Abdomen soft, non-tender. Bowel sounds normal. No masses, organomegaly Extremities: No deformities, edema, skin discoloration, clubbing or cyanosis. Good capillary refill. ASSESSMENT/PLAN: 1. Closed odontoid fracture with routine healing, subsequent encounter - ICD9: V54.17, ICD10: S12.100D (primary diagnosis) - now on bone stimulator. Will be following up. Pain meds prn through us. Continue to wear collar. Red flags for re-assessment reviewed with patient in detail. 2. Hyperlipidemia LDL goal <100 - ICD9: 272.4, ICD10: E78.5 - stable. 3. Unspecified sleep apnea - ICD9: 780.57, ICD10: G47.30 - continue tx 4. Uncomplicated asthma, unspecified asthma severity, unspecified whether persistent - ICD9: 493.90, ICD10: J45.909 - stable. 5. Mild intermittent asthma, uncomplicated - ICD9: 493.90, ICD10: J45.20 - stable. 6. Hypothyroidism, acquired - ICD9: 244.9, ICD10: E03.9 - continue meds. 7. Depression, recurrent (HCC) - ICD9: 296.30, ICD10: F33.9 - continue meds. 8. Statin intolerance - ICD9: 995.27, ICD10: Z78.9 As above. 9. Mixed incontinence - ICD9: 788.33, ICD10: N39.46 - continue meds. Dinah Melgar MD [facility] Telephone encounter Note * Telephone Encounter - Isadora Melton APRN.CNP - 09/28/2023 4:47 PM EDT Medications sent to the pharmacy. Additional pain medication really should be coming from the surgeon/specialist, if she is still having pain. [facility] Work Phone: [phone] Miscellaneous Notes* Telephone Encounter - Isadora Melton APRN.CNP - 09/28/2023 4:47 PM EDT Medications sent to the pharmacy. Additional pain medication really should be coming from the surgeon/specialist, if she is still having pain. * Telephone Encounter - Constanza Barahona MA - 09/28/2023 3:33 PM EDT Patient had hospital d/c follow up 09/11 with pcp Constanza Barahona MA documented in this encounterDet[facility]05-[facility]-2024 Telephone encounter Note * Telephone Encounter - Constanza Barahona MA - 09/28/2023 3:33 PM EDT Patient had hospital d/c follow up 09/11 with pcp Constanza Barahona MA [facility]05-10-2024 NoteHNO ID: [id number] Author: TON LOONEY, ? Service: ? Author Type: Physician Type: Progress Notes Filed: 09/18/2023 21:47 Note Text: Subjective: Patient presents to clinic c/o painful toenails. They state that the nails are especially painful with shoe gear and pressure. Patient states that nails 1-5 b/l are painful. Patient states no change in medications or medical history since last visit. Objective: Patient presents to clinic ambulating in dress shoes Vasc: DP and PT pulses are faintly palpable bilateral. CFT is less than 5 seconds bilateral. Skin temperature is warm to cool proximal to distal bilateral. There is mild edema or varicosities noted. Neuro: Protective sensation is intact to the foot and toes when tested with the 5.07 SWM bilateral. Vibratory sensation is decreased at the hallux IPJ bilateral. The hallux is downgoing bilateral. Derm: Nails 1-5 b/l are painful, discolored-yellow, thick, crumbly, dystrophic and with subungal debris. Skin is of normal turgor, texture and hair growth is decreased bilateral. There are no hyperkeratosis, ulcerations, scars, verruca or other lesions noted. Ortho: Muscle strength is 5/5 for all pedal groups tested. Ankle joint DF is decreased with the knee extended with no pain or crepitus noted. 1st MPJ ROM is decreased bilateral. Assessment: (B35.1) Onychomycosis (primary encounter diagnosis) (M79.675) Pain in toe of left foot (M79.674) Pain in toe of right foot Plan: Patient was seen and evaluated. Nails 1-5 bilateral were debrided in length and thickness. Patient is to RTC in 3-4 months. [facility] History of Present illness Narrative* Ton Looney - 09/16/2023 3:02 PM EDT Subjective: Patient presents to clinic c/o painful toenails. They state that the nails are especially painful with shoe gear and pressure. Patient states that nails 1-5 b/l are painful. Patient states no change in medications or medical history since last visit. Objective: Patient presents to clinic ambulating in dress shoes Vasc: DP and PT pulses are faintly palpable bilateral. CFT is less than 5 seconds bilateral. Skin temperature is warm to cool proximal to distal bilateral. There is mild edema or varicosities noted. Neuro: Protective sensation is intact to the foot and toes when tested with the 5.07 SWM bilateral.Vibratory sensation is decreased at the hallux IPJ bilateral. The hallux is downgoing bilateral. Derm: Nails 1-5 b/l are painful, discolored-yellow, thick, crumbly, dystrophic and with subungal debris. Skin is of normal turgor, texture and hair growth is decreased bilateral. There are no hyperkeratosis, ulcerations, scars, verruca or other lesions noted. Ortho: Muscle strength is 5/5 for all pedal groups tested. Ankle joint DF is decreased with the knee extended with no pain or crepitus noted. 1st MPJ ROM is decreased bilateral. Assessment: (B35.1) Onychomycosis (primary encounter diagnosis) (M79.675) Pain in toe of left foot (M79.674) Pain in toe of right foot Plan: Patient was seen and evaluated. Nails 1-5 bilateral were debrided in length and thickness. Patient is to RTC in 3-4 months. Ton Looney DPM * Kimberly Domingo LPN - 09/16/2023 2:55 PM EDT AMB ROOMING INTAKE FLOWSHEET DATA Pain Pain Level: 4 Pain Location: Neck Description: Aching, Tightness Duration Amount of Time: 24 Duration Units: Hours Frequency: Continuous Intervention/Comfort measure: Medication, Other: See comment Comments: neck brace Kimberly Domingo LPN documented in this encounterDetw[facility]05-10-2024 NoteHNO ID: [id number] Author: KIMBERLY DOMINGO LPN Service: ? Author Type: LICENSED NURSE Type: Progress Notes Filed: 09/18/2023 21:47 Note Text: AMB ROOMING INTAKE FLOWSHEET DATA Pain Pain Level: 4 Pain Location: Neck Description: Aching, Tightness Duration Amount of Time: 24 Duration Units: Hours Frequency: Continuous Intervention/Comfort measure: Medication, Other: See comment Comments: neck braDONNELL RichChildren[facility] History of Present illness Narrative* Guillaume Delgado MD, PhD - 09/16/2023 10:00 AM EDT Images from the original note were not included. NEUROSURGERY FOLLOW UP OFFICE NOTE Guillaume Delgado MD, PhD Date of visit: September 16, 2023 Patient Name: Ms.Betty Ricky Segura Date of : 1945 Current Age: [age] year old Sex: female MRN/E# [id number] Last Office Visit: Visit date not found Chief Complaint: Patient presents with: Established Patient: ED follow up SUBJECTIVE: HPI The patient presented to [facility] ED on 08/20/2023 af a transfer from an outside hospital follow a fall.She noted she hit her head on the wall. Outside imaging demonstrated a type 2 odontoid fracture (acute vs chronic). She reported multiple falls recently and in the past. She noted 2-3 weeks prior, she fell and endorsed neck pain but did not seek medical attention. No surgical interventions were required at that time. She was to wear a [place] collar at all times. She was to obtain a bone stimulatoroutpatient. She was to follow up in 1 month with repeat imaging, prompting her visit today. Today she states she has been doing okay since discharge. She reports midline posterior cervical pain. She denies any radicular symptoms. Denies paresthesia. Denies any weakness. Denies any further falls, loss of bowel or bladder. She has since been using a cane for extra support. She has been complaint with her cervical collar. She has been using ultram with relief. She is receiving home therapyat this time. She did not receive any information about her bone growth stimulator. She presents for imaging review, evaluation and plan of care. Symptoms: midline posterior cervical pain Smoker: denies Diabetic: denies Anticoagulants / Antiplatelets: denies Occupation: [employer] PREVIOUS CONSERVATIVE TREATMENTS: [place] collar Ultram PREVIOUS SURGERY: None PAIN EVALUATION 09/11/2023 1240 09/16/2023 1020 Pain Level: 4 4 Pain Location: Neck Neck Description: Aching;Tightness -- Duration Amount of Time: 24 -- Duration Units: Hours -- Frequency: Continuous -- Intervention/Comfort measure: Medication;Other: See comment -- Comments: neck brace -- PAST MEDICAL HISTORY Diagnosis Date Arthritis of both hands 05/05/2016 Asthma 03/11/2010 Cervical disc disease 06/06/2013 Dementia without behavioral disturbance (HCC) 10/11/2022 Depression, recurrent ([facility]) 10/11/2022 Diarrhea Diffuse cystic mastopathy 11/03/2005 Elevated CK 04/26/2012 Esophageal reflux 11/03/2005 Fracture of skull ([facility]) 02/16/2023 Hyperlipidemia 04/26/2012 Hypothyroidism, acquired 08/04/2022 Impingement syndrome of right shoulder 10/11/2016 Irritable bowel syndrome with diarrhea 05/31/2018 Mild intermittent asthma, uncomplicated 11/23/2022 Neurogenic bladder, NOS Odontoid fracture ([facility]) 08/20/2023 Other and unspecified hyperlipidemia Other forms of migraine Overactive bladder 02/12/2009 Primary localized osteoarthrosis, lower leg Rotator cuff syndrome 02/12/2009 Situational depression 05/31/2018 Statin intolerance 07/03/2018 Supraspinatus tendonitis 12/06/2012 Tear of biceps tendon 05/18/2017 Unspecified sleep apnea Urinary incontinence 03/11/2010 PAST SURGICAL HISTORY Procedure Laterality Date ADENOIDECTOMY PRIMARY <AGE 10 Adenoidectomy APPENDECTOMY COLONOSCOPY W/BIOPSY SINGLE/MULTIPLE 06/21/11 DILATION & CURETTAGE DX&/THER NONOBSTETRIC Dilation & curettage LAPAROSCOPY SURG CHOLECYSTECTOMY 07-15-06 Cholecystectomy, lap PAST SURGICAL HISTORY OF N/A 2017 urinary implant device TONSILLECTOMY PRIMARY/SECONDARY <AGE 10 Tonsillectomy VAGINAL HYSTERECTOMY UTERUS 250 GM/< Hysterectomy, vaginal FAMILY HISTORY Problem Relation Age of Onset other (dementia [Other]) Father Heart Father Tremor Father Heart Mother Heart Brother Tremor Daughter Tremor Son ALLERGIES Allergen Reactions Vioxx [Rofecoxib] Zocor [Simvastatin] Other: See Comments elevated CPK Current Outpatient Medications Medication Sig Dispense Refill carvedilol (COREG) 6.25 mg tablet Take 6.25 mg by mouth two times a day with meals. traMADol (ULTRAM) 50 mg tablet TAKE 1 TABLET BY MOUTH THREE TIMES DAILY (EVERY 8 HOURS) NEEDED FOR LEVEL 4-10 PAIN FLUoxetine (PROZAC) 20 mg capsule Take 1 capsule by mouth every afternoon. levothyroxine (SYNTHROID) 50 mcg tablet TAKE 1 TABLET BY MOUTH ONCE DAILY AT [address] (PROTONIX) 40 mg tablet Take 40 mg by mouth once daily. IPRATROPIUM BROMIDE NASAL Use in the nose. famotidine (PEPCID) 40 mg tablet Take 1 tablet by mouth once daily. 90 tablet 1 ezetimibe (ZETIA) 10 mg tablet Take 1 tablet by mouth once daily. 90 tablet 3 mirabegron (MYRBETRIQ) 50 mg Tb24 Take 25 mg by mouth once daily. albuterol HFA (PROVENTIL HFA, VENTOLIN HFA) 90 mcg/actuation inhaler Inhale 2 Puffs as instructed every 4 hours as needed. 18 g 3 No current facility-administered medications for this visit. REVIEW OF SYSTEMS Review of Systems Constitutional: Negative for chills, fatigue and fever. HENT: Negative for congestion and sore throat. Eyes: Negative for discharge, itching and visual disturbance. Respiratory: Negative for cough and shortness of breath. Cardiovascular: Negative for chest pain and palpitations. Gastrointestinal: Negative for constipation, diarrhea, nausea and vomiting. Endocrine: Negative for cold intolerance and heat intolerance. Genitourinary: Negative for difficulty urinating, frequency and urgency. Musculoskeletal: Positive for neck pain and neck stiffness. Negative for back pain and gait problem. Skin: Negative for rash and wound. Allergic/Immunologic: Negative for environmental allergies and food allergies. Neurological: Positive for weakness. Negative for dizziness, light-headedness, numbness and headaches. Hematological: Does not bruise/bleed easily. Psychiatric/Behavioral: Negative for agitation. The patient is not nervous/anxious. OBJECTIVE: BP 143/72 Pulse 89 Resp 20 Wt 181 lb 9.6 oz (82.4kg) SpO2 95% Physical Exam On examination today Georgina wore her [place] cervical collar. She had intact strength and sensation throughout her upper extremities. She did not exhibit upper motor neuron findings. Data Review IMAGING STUDIES: XR Cervical 09/12/2023: IMPRESSION: Cervical spine degenerative changes from multilevel disc space narrowing. Assessment and Plan: Georgina is a patient I am following up subsequent to her discharge from the hospital. She has a type II odontoid fracture. There is significant bone loss at the neck of the odontoid process causing me to believe that likely she has a longstanding fracture in that location. It is difficult to tell though it may be acute. I reviewed her cervical x-rays and did not have any concerns with respect to odontoid displacement or other issues. She has re-articulated interest today in trying a bone growth stimulator. We will put in the relevant paperwork for this. I have expressed pessimism that this willlead to desired healing of the fracture but it is certainly worth a try if she is interested. I am interested in seeing her again in about 3 months from now to check on her progress. We will follow her with serial x-rays over time. I have asked that she contact my office in the interim if she should have any troubles or concerns. Attestation: The following portions of the patient's history were reviewed, confirmed, and updated as necessary: allergies, current medications, past family history, past medical history, past socialhistory, past surgical history, problem list, HPI, and ROS obtained by others. Some elements may be copied from a previous office note and have been reviewed/updated where appropriate. All portions reflect current medical decision making from today. The clinical and radiographic findings as well as the risks, benefits and alternatives of treatmenthave been reviewed in detail with the patient. The patient was advised to call the office if symptoms worsen or new symptoms develop. The patient expressed understanding and is in agreement with plan. Guillaume Delgado MD, PhD This note was partially generated using Synker voice recognition system, and there may be some incorrect words, spellings, and punctuation that were not noted in checking the note before saving. documented in this encounterDet[facility] NoteHNO ID: [id number] Author: GUILLAUME DELGADO MD, PhD Service: ? Author Type: Physician Type: Progress Notes Filed: 09/16/2023 10:53 Note Text: NEUROSURGERY FOLLOW UP OFFICE NOTE Guillaume Delgado MD, PhD Date of visit: September 16, 2023 Patient Name: Ms.Betty Ricky Segura Date of : 1945 Current Age: [age] year old Sex: female MRN/E# [id number] Last Office Visit: Visit date not found Chief Complaint: Patient presents with: Established Patient: ED follow up SUBJECTIVE: HPI The patient presented to [facility] ED on 08/20/2023 af a transfer from an outside hospital follow a fall. She noted she hit her head on the wall. Outside imaging demonstrated a type 2 odontoid fracture (acute vs chronic). She reported multiple falls recently and in the past. She noted 2-3 weeks prior, she fell and endorsed neck pain but did not seek medical attention. No surgical interventions were required at that time. She was to wear a [place] collar at all times. She was to obtain a bone stimulator outpatient. She was to follow up in 1 month with repeat imaging, prompting her visit today. Today she states she has been doing okay since discharge. She reports midline posterior cervical pain. She denies any radicular symptoms. Denies paresthesia. Denies any weakness. Denies any further falls, loss of bowel or bladder. She has since been using a cane for extra support. She has been complaint with her cervical collar. She has been using ultram with relief. She is receiving home therapy at this time. She did not receive any information about her bone growth stimulator. She presents for imaging review, evaluation and plan of care. Symptoms: midline posterior cervical pain Smoker: denies Diabetic: denies Anticoagulants / Antiplatelets: denies Occupation: [employer] PREVIOUS CONSERVATIVE TREATMENTS: [place] collar Ultram PREVIOUS SURGERY: None PAIN EVALUATION 09/11/2023 1240 09/16/2023 1020 Pain Level: 4 4 Pain Location: Neck Neck Description: Aching;Tightness -- Duration Amount of Time: 24 -- Duration Units: Hours -- Frequency: Continuous -- Intervention/Comfort measure: Medication;Other: See comment -- Comments: neck brace -- PAST MEDICAL HISTORY Diagnosis Date Arthritis of both hands 05/05/2016 Asthma 03/11/2010 Cervical disc disease 06/06/2013 Dementia without behavioral disturbance ([facility]) 10/11/2022 Depression, recurrent ([facility]) 10/11/2022 Diarrhea Diffuse cystic mastopathy 11/03/2005 Elevated CK 04/26/2012 Esophageal reflux 11/03/2005 Fracture of skull ([facility]) 02/16/2023 Hyperlipidemia 04/26/2012 Hypothyroidism, acquired 08/04/2022 Impingement syndrome of right shoulder 10/11/2016 Irritable bowel syndrome with diarrhea 05/31/2018 Mild intermittent asthma, uncomplicated 11/23/2022 Neurogenic bladder, NOS Odontoid fracture ([facility]) 08/20/2023 Other and unspecified hyperlipidemia Other forms of migraine Overactive bladder 02/12/2009 Primary localized osteoarthrosis, lower leg Rotator cuff syndrome 02/12/2009 Situational depression 05/31/2018 Statin intolerance 07/03/2018 Supraspinatus tendonitis 12/06/2012 Tear of biceps tendon 05/18/2017 Unspecified sleep apnea Urinary incontinence 03/11/2010 PAST SURGICAL HISTORY Procedure Laterality Date ADENOIDECTOMY PRIMARY Adenoidectomy APPENDECTOMY COLONOSCOPY W/BIOPSY SINGLE/MULTIPLE 06/21/11 DILATION AND CURETTAGE DXAND/THER NONOBSTETRIC Dilation AND curettage LAPAROSCOPY SURG CHOLECYSTECTOMY 07-15-06 Cholecystectomy, lap PAST SURGICAL HISTORY OF N/A 2016 urinary implant device TONSILLECTOMY PRIMARY/SECONDARY Tonsillectomy VAGINAL HYSTERECTOMY UTERUS 250 GM/< Hysterectomy, vaginal FAMILY HISTORY Problem Relation Age of Onset other (dementia [Other]) Father Heart Father Tremor Father Heart Mother Heart Brother Tremor Daughter Tremor Son ALLERGIES Allergen Reactions Vioxx [Rofecoxib] Zocor [Simvastatin] Other: See Comments elevated CPK Current Outpatient Medications Medication Sig Dispense Refill carvedilol (COREG) 6.25 mg tablet Take 6.25 mg by mouth two times a day with meals. traMADol (ULTRAM) 50 mg tablet TAKE 1 TABLET BY MOUTH THREE TIMES DAILY (EVERY 8 HOURS) NEEDED FOR LEVEL 4-10 PAIN FLUoxetine (PROZAC) 20 mg capsule Take 1 capsule by mouth every afternoon. levothyroxine (SYNTHROID) 50 mcg tablet TAKE 1 TABLET BY MOUTH ONCE DAILY AT [address] (PROTONIX) 40 mg tablet Take 40 mg by mouth once daily. IPRATROPIUM BROMIDE NASAL Use in the nose. famotidine (PEPCID) 40 mg tablet Take 1 tablet by mouth once daily. 90 tablet 1 ezetimibe (ZETIA) 10 mg tablet Take 1 tablet by mouth once daily. 90 tablet 3 mirabegron (MYRBETRIQ) 50 mg Tb24 Take 25 mg by mouth once daily. albuterol HFA (PROVENTIL HFA, VENTOLIN HFA) 90 mcg/actuation inhaler Inhale 2 Puffs as instructed every 4 hours as needed. 18 g 3 No current facility-administered medications for this visit. REVIEW OF (more content not included)...[facility]05-09-2024 Telephone encounter Note* Telephone Encounter - Martínez Kessler LPN - 09/15/2023 3:45 PM EDT Ángel from [facility] calling with PT plan of care, 1 visit this week, then 2 visits weekly for 2 weeks, then 1 visit weekly for 3 weeks. No need for return call. [facility]05-09-[facility] Miscellaneous Notes* Telephone Encounter - Martínez Kessler LPN - 09/15/2023 3:45 PM EDT Ángel from [facility] calling with PT plan of care, 1 visit this week, then 2 visits weekly for 2 weeks, then 1 visit weekly for 3 weeks. No need for return call. documented in this encounterDetwiler [facility]05-06-[facility]24 History of Present illness Narrative* Celine Araiza, RT(R) - 09/12/2023 10:10 AM EDT Radiology Service Progress Note PATIENT NAME: Georgina WINNN: [id number] DATE OF SERVICE: September 12, 2023 TIME: 10:42 AM PATIENT IDENTITY VERIFICATION COMPLETED USING TWO (2) IDENTIFIERS: Name and Date of confirmedby patient verbally. FALL SCREENING: Has the patient had 2 falls in the last year or 1 fall with injury or currently using an Ambulatory Assistive Device (Walker, Cane, Wheelchair, Crutches, etc.)? No PATIENT GENDER DATA: Female. status: : No status: NO. PATIENT RELEVANT IMPLANT DATA REVIEWED: Yes PATIENT PRESENTS WITH AN IMPLANTABLE OR ATTACHED [facility] DIRECTOR: No RADIOLOGY DEPARTMENT: General X-ray: Exam(s) Completed: Spine X-Ray(s): Cervical AP / LAT PERIPHERAL IV DATA: Not applicable SIGNED BY: RT Yessi(Arin) September 12, 2023 10:42 AM documented in this encounterDetwiler [facility]05-06-2024 Instructions* Patient Instructions* Dinah Melgar MD - 09/12/2023 9:40 AM EDT Labs now. Will repeat labs at next ov. See home health. Stay on current meds. Add a stool softener. documented in this encounterDetwiler [facility]05-06-2024 History of Present illness Narrative* Dinah Melgar MD - 09/12/2023 9:14 AM EDT Patient presents with: Transition Of Care HPI: Patient presents today for office visit for TCM./hospital follow up. HOSPITAL/ER FOLLOW UP: Recently in [facility] and then transferred to [facility] rehab Date of [facility] 08/22-09/08/23. Today is day two after discharge (normal working hours) [facility] is following. Undergoing physical therapy. Wearing her collar. Mentally is back to baseline. Is not taking her buspar that was discussed in hospital discharge. Bp is well controlled. No chest pain or shortness of breath. No worsening edema. No new neuro issues. No black or bloody stools. Was having constipation when her heme positive stool was done. She is not anemic. We discussed rechecking at some point. We discussed adding colace. Rarely using tramadol. Has appointments with pulmonary at [facility] for sleep study follow up. Has follow up neurosurgery. [facility] is following. Her daughter is keeping close tabs on her. Is on oxygen at . See discharge from [facility], copied and pasted: Diagnosis Discharge Diagnosis (1) Debility: Status: Acute Code(s): R53.81 - Other malaise Plan: Due to non-displaced fractures of the dens due to falls. (2) Frequent falls: Status: Chronic Code(s): R29.6 - Repeated falls Plan: Related to untreated sleep apnea, sedating medications, elevated TSH, etc. (3) Closed type II fracture of odontoid process: Status: Inactive Code(s): S12.110A - Anterior displaced Type II dens fracture, initial encounter for closed fracture (4) Laceration of scalp: Status: Inactive Code(s): S01.01XA - Laceration without foreign body of scalp, initial encounter Qualifiers: Encounter type: subsequent encounter Qualified Code(s): S01.01XD - Laceration without foreign body of scalp, subsequent encounter Plan: Healed. [place] removed. (5) Closed head injury: Status: Acute Code(s): S09.90XA - Unspecified injury of head, initial encounter Qualifiers: Encounter type: subsequent encounter Qualified Code(s): S09.90XD - Unspecified injury of head, subsequent encounter (6) Hypothyroid: Status: Chronic Code(s): E03.9 - Hypothyroidism, unspecified Qualifiers: Hypothyroidism type: acquired Qualified Code(s): E03.9 - Hypothyroidism, unspecified Plan: TSH was elevated. Levothyroxine dose increased from 25 mcg daily to 50 mcg daily. Will need a follow up TSH/T4 in 4-6 weeks. (7) Elevated TSH: Status: Acute Code(s): R79.89 - Other specified abnormal findings of blood chemistry (8) Concussion: Status: Inactive Code(s): S06.0XAA - Concussion with loss of consciousness status unknown, initial encounter Qualifiers: Encounter type: subsequent encounter Loss of consciousness presence/duration: without LOC QualifiedCode(s): S06.0X0D - Concussion withoutloss of consciousness, subsequent encounter (9) Nausea and vomiting: Status: Resolved Code(s): R11.2 - Nausea with vomiting, unspecified Qualifiers: Vomiting type: unspecified Qualified Code(s): R11.2 - Nausea with vomiting, unspecified Plan: Resolved with discontinuation of Aricept and decreasing the dose of Prozac. Mayconsider restarting Aricept at 5 mg as an OP to see if she can tolerate a lower dose without recurrent N/V. (10) Heme positive stool: Status: Acute Code(s): R19.5 - Other fecal abnormalities Plan: Heme positive stool but with no anemia. Will defer workup to her family practitioner. (11) HTN (hypertension): Status: Chronic Code(s): I10 - Essential (primary) hypertension Qualifiers: Hypertension type: unspecified Qualified Code(s): I10 - Essential (primary) hypertension Plan: Catecholamine driven. Good response to Coreg but, BP still goes up with anxietyand we have needed to give Hydralazine at times. doing better with the additionof Buspar to the drug regimen. On 5 mg BID at DC......will likely need to increase the dose going forward. Tolerating with no adverse side effects at thetime of DC from rehab. (12) Lightheadedness: Status: Resolved Code(s): R42 - Dizziness and giddiness Plan: Dur to decreased intravascular volume at DC. Doing much better with fluid intake at the time of DC from rehab. (13) NAYA (obstructive sleep apnea): Status: Chronic Code(s): G47.33 - Obstructive sleep apnea (adult) (pediatric) Plan: Scheduled for a sleep study on 09/08/23 and then will follow up with pulmonary medicine. Discharging home on nasal O2 when sleeping. (14) Depression: Status: Chronic Code(s): F32.A - Depression, unspecified Qualifiers: Depression Type: unspecified Qualified Code(s): F32.A - Depression, unspecified Plan: Prozac dose decreased to 20 mg daily due to chronic N/V. No sx of depression atthe time of DC from rehab. Anxiety is not adequately controlled even with the 40 mg dose of Prozac. Buspar was added to the drug regimen for better control of anxiety. (15) Anxiety: Status: Chronic Code(s): F41.9 - Anxiety disorder, unspecified Plan: Tolerating 5 mg BID of Buspar at DC but, anxiety is not yet adequately controlled. Will defer increasing the dose in another 5-[address] Melgar. Plan 1. DC home with [facility]. 2. Dtr will continue to fill pill boxes for her and her son will continue to manage her finances. 3. Would avoid medications on the Beer's list if at all possible 4. Sleep study tonight and then will follow up with pulmonary to discuss the results 5. No driving while she is in a cervical collar. I am recommending that in light of dementia/poor memory that prior to resuming driving she follow up with driving assessment program at [facility] to be evaluated to make sureshe will be safe to drive. Information about the program and referral made about SW. 6. Has a follow up appt scheduled with Dr. Melgar. Will also need to follow up with Dr. Delgado for the fracture of the dens. 7. Continue Atrovent nasal spray for chronic rhinitis rather than restarting anantihistamine to avoid sedation and falls. 8. She had N/V despite being on a PPI and a H2 yeni. N/V resolved with decreasing the dose of the Prozac and discontinuing the Aricept. Likely does not need both a PPI and a H2 yeni for GERD. Will defer to Dr. Melgar to make that determination. See discharge summary: copied and pasted. ADMIT DATE: 08/20/2023 DISCHARGE DATE: 08/23/23 MY DOCTORS AND MEDICAL TEAM: My Main Hospital Doctor: Cassandra Reeves DO Primary Care Provider: Dinah Melgar MD My Medical Team Members: Treatment Team: Attending Provider: Cassandra Reeves DO Primary Service: RUEL CRUZ MY CONDITION AT DISCHARGE: Improved REASON I WAS IN THE HOSPITAL: odontoid fracture SUMMARY OF WHAT HAPPENED WHILE I WAS IN THE HOSPITAL: 78 yo F who presented after fall, found to have an odontoid fracture. Seen by neurosurgery who said no surgical intervention but to maintain C-collar and f/u in 2 weeks for repeat imaging. Seen by PT/OT and discharged to SNF in stable condition. OTHER PROBLEMS/DIAGNOSIS: Principal Problem: [place] (acute kidney injury) (HCC) Active Problems: Odontoid fracture (HCC) Asthma Depression, recurrent (HCC) Falls frequently Closed head injury Resolved Problems: * No resolved hospital problems. * OPERATIONS PERFORMED WHILE IN THE HOSPITAL: None IMPORTANT TEST/PROCEDURES: No procedures performed TEST RESULTS NOT AVAILABLE AT THIS TIME: No pending results MEDICATIONS: Current Outpatient Medications Medication Sig carvedilol (COREG) 6.25 mg tablet Take 6.25 mg by mouth two times a day with meals. traMADol (ULTRAM) 50 mg tablet TAKE 1 TABLET BY MOUTH THREE TIMES DAILY (EVERY 8 HOURS) NEEDED FOR LEVEL 4-10 PAIN FLUoxetine (PROZAC) 20 mg capsule Take 1 capsule by mouth every afternoon. levothyroxine (SYNTHROID) 50 mcg tablet TAKE 1 TABLET BY MOUTH ONCE DAILY AT [address] (PROTONIX) 40 mg tablet Take 40 mg by mouth once daily. IPRATROPIUM BROMIDE NASAL Use in the nose. famotidine (PEPCID) 40 mg tablet Take 1 tablet by mouth once daily. ezetimibe (ZETIA) 10 mg tablet Take 1 tablet by mouth once daily. mirabegron (MYRBETRIQ) 50 mg Tb24 Take 25 mg by mouth once daily. albuterol HFA (PROVENTIL HFA, VENTOLIN HFA) 90 mcg/actuation inhaler Inhale 2 Puffs as instructed every 4 hours as needed. No current facility-administered medications for this visit. ALLERGIES: ALLERGIES Allergen Reactions Vioxx [Rofecoxib] Zocor [Simvastatin] Other: See Comments elevated CPK PAST MEDICAL HISTORY Diagnosis Date Arthritis of both hands 05/05/2016 Asthma 03/11/2010 Cervical disc disease 06/06/2013 Dementia without behavioral disturbance (HCC) 10/11/2022 Depression, recurrent ([facility]) 10/11/2022 Diarrhea Diffuse cystic mastopathy 11/03/2005 Elevated CK 04/26/2012 Esophageal reflux 11/03/2005 Fracture of skull ([facility]) 02/16/2023 Hyperlipidemia 04/26/2012 Hypothyroidism, acquired 08/04/2022 Impingement syndrome of right shoulder 10/11/2016 Irritable bowel syndrome with diarrhea 05/31/2018 Mild intermittent asthma, uncomplicated 11/23/2022 Neurogenic bladder, NOS Odontoid fracture (HCC) 08/20/2023 Other and unspecified hyperlipidemia Other forms of migraine Overactive bladder 02/12/2009 Primary localized osteoarthrosis, lower leg Rotator cuff syndrome 02/12/2009 Situational depression 05/31/2018 Statin intolerance 07/03/2018 Supraspinatus tendonitis 12/06/2012 Tear of biceps tendon 05/18/2017 Unspecified sleep apnea Urinary incontinence 03/11/2010 PAST SURGICAL HISTORY Procedure Laterality Date ADENOIDECTOMY PRIMARY <AGE 10 Adenoidectomy APPENDECTOMY COLONOSCOPY W/BIOPSY SINGLE/MULTIPLE 06/21/11 DILATION & CURETTAGE DX&/THER NONOBSTETRIC Dilation & curettage LAPAROSCOPY SURG CHOLECYSTECTOMY 07-15-06 Cholecystectomy, lap PAST SURGICAL HISTORY OF N/A 2017 urinary implant device TONSILLECTOMY PRIMARY/SECONDARY <AGE 10 Tonsillectomy VAGINAL HYSTERECTOMY UTERUS 250 GM/< Hysterectomy, vaginal FAMILY HISTORY Problem Relation Age of Onset other (dementia [Other]) Father Heart Father Tremor Father Heart Mother Heart Brother Tremor Daughter Tremor Son Social History Tobacco Use Smoking status: Never Smokeless tobacco: Never Substance Use Topics Alcohol use: No Drug use: No Reviewed current medications, allergies, past medical history, surgical history, family history andsocial history today. REVIEW OF SYSTEMS All other reviewed and negative other than HPI. HEALTH MAINTENANCE: Reviewed health maintenance issues today and recommended the following in detail. RSV Vaccine(1 - 1-dose 60+ series) Never done Advance Directive Discussion due on 05/09/2023 VITALS: BP 134/70 Pulse 90 Ht 160 cm (5' 3) Wt 82.1 kg (181 lb) SpO2 94% BMI 32.06 kg/m Last 4 Encounter Wt Readings: Date: Wt: 09/12/2023 82.1 kg (181 lb) 06/13/2023 82.6 kg (182 lb) 06/12/2023 82.6 kg (182 lb) 02/16/2023 82.1 kg (181 lb) PHYSICAL EXAMINATION: General appearance: Well appearing, alert, in no acute distress, well-hydrated, well nourished. Skin: Skin color, texture, turgor normal, no suspicious rashes or lesions Head: Normocephalic, no masses, lesions, tenderness or abnormalities Neck: collar in place Lungs: Lungs clear to auscultation. No wheezing, rhonchi, rales Heart: RRR without murmur, gallop, or rubs. No ectopy Abdomen: Normal abdominal exam, Abdomen soft, non-tender. Bowel sounds normal. No masses, organomegaly Extremities: No deformities, edema, skin discoloration, clubbing or cyanosis. Good capillary refill. Neuro: Negative. ASSESSMENT/PLAN: 1. History of cervical fracture - ICD9: V15.51, ICD10: Z87.81 (primary diagnosis) - stable. Wear collar. Follow with neurosurgery. 2. Obesity, Class I, BMI 30-34.9 - ICD9: 278.00, ICD10: E66.9 - stable. 3. Falls frequently - ICD9: V15.88, ICD10: R29.6 - continue therapy. 4. Hypothyroidism, acquired - ICD9: 244.9, ICD10: E03.9 - will need labs at next ov. 5. 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 Daughter caring for her daily. Continue home health care. 6. Anxiety - ICD9: 300.00, ICD10: F41.9 - continue meds. 7. Renal insufficiency - ICD9: 593.9, ICD10: N28.9 - check labs. - BASIC METABOLIC PANEL 8. Blood in stool - ICD9: 578.1, ICD10: K92.1 - consider repeat ifobt when able. - COMPLETE BLOOD COUNT AND DIFFERENTIAL 9. Primary hypertension - ICD9: 401.9, ICD10: I10 - Controlled - Continue current medications Dinah Melgar MD RTO in six weeks or prn documented in this encounterDet[facility]05-[facility] Discharge summary Author Marina Gotti [facility] September 08, 2023 2:22pm Note Date/Time September 07, 2023 12:03p [facility] Medical Records Department [address] [place] [address] Discharge Summary 09/07/23 1203 MR#: [id number] Acct: [id number] Name: LEVYBabatundeGEORGINA Rep #:[id number] : 1945 78 From: Marina Gotti DO PCP: Dr. Dinah Melgar MD Status:ADM I N Location: [place] [address] Providers Date of Admission: 08/23/23 Date of Discharge: 09/08/23 Primary Care Physician: Dr. Dinah Melgar MD None Reason For Visit: CERVICAL FRACTURE Diagnosis Discharge Diagnosis (1) Debility: Status: Acute Code(s): R53.81 - Other malaise Plan: Due to non-displaced fractures of the dens due to falls. (2) Frequent falls: Status: Chronic Code(s): R29.6 - Repeated falls Plan: Related to untreated sleep apnea, sedating medications, elevated TSH, etc. (3) Closed type II fracture of odontoid process: Status: Inactive Code(s): S12.110A - Anterior displaced Type II dens fracture, initial encounter for closed fracture (4) Laceration of scalp: Status: Inactive Code(s): S01.01XA - Laceration without foreign body of scalp, initial encounter Qualifiers: Encounter type: subsequent encounter Qualified Code(s): S01.01XD - Laceration without foreign body of scalp, subsequent encounter Plan: Healed. [place] removed. (5) Closed head injury: Status: Acute Code(s): S09.90XA - Unspecified injury of head, initial encounter Qualifiers: Encounter type: subsequent encounter Qualified Code(s): S09.90XD - Unspecified injury of head, subsequent encounter (6) Hypothyroid: Status: Chronic Code(s): E03.9 - Hypothyroidism, unspecified Qualifiers: Hypothyroidism type: acquired Qualified Code(s): E03.9 - Hypothyroidism, unspecified Plan: TSH was elevated. Levothyroxine dose increased from 25 mcg daily to 50 mcg daily. Will need a follow up TSH/T4 in 4-6 weeks. (7) Elevated TSH: Status: Acute Code(s): R79.89 - Other specified abnormal findings of blood chemistry (8) Concussion: Status: Inactive Code(s): S06.0XAA - Concussion with loss of consciousness status unknown, initial encounter Qualifiers: Encounter type: subsequent encounter Loss of consciousness presence/duration: without LOC Qualified Code(s): S06.0X0D - Concussion withoutloss of consciousness, subsequent encounter (9) Nausea and vomiting: Status: Resolved Code(s): R11.2 - Nausea with vomiting, unspecified Qualifiers: Vomiting type: unspecified Qualified Code(s): R11.2 - Nausea with vomiting, unspecified Plan: Resolved with discontinuation of Aricept and decreasing the dose of Prozac. Mayconsider restarting Aricept at 5 mg as an OP to see if she can tolerate a lower dose without recurrent N/V. (10) Heme positive stool: Status: Acute Code(s): R19.5 - Other fecal abnormalities Plan: Heme positive stool but with no anemia. Will defer workup to her family practitioner. (11) HTN (hypertension): Status: Chronic Code(s): I10 - Essential (primary) hypertension Qualifiers: Hypertension type: unspecified Qualified Code(s): I10 - Essential (primary) hypertension Plan: Catecholamine driven. Good response to Coreg but, BP still goes up with anxietyand we have needed to give Hydralazine at times. doing better with the additionof Buspar to the drug regimen. On 5 mg BID at DC......will likely need to increase the dose going forward. Tolerating with no adverse side effects at thetime of DC from rehab. (12) Lightheadedness: Status: Resolved Code(s): R42 - Dizziness and giddiness Plan: Dur to decreased intravascular volume at DC. Doing much better with fluid intake at the time of DC from rehab. (13) NAYA (obstructive sleep apnea): Status: Chronic Code(s): G47.33 - Obstructive sleep apnea (adult) (pediatric) Plan: Scheduled for a sleep study on 09/08/23 and then will follow up with pulmonary medicine. Discharging home on nasal O2 when sleeping. (14) Depression: Status: Chronic Code(s): F32.A - Depression, unspecified Qualifiers: Depression Type: unspecified Qualified Code(s): F32.A - Depression, unspecified Plan: Prozac dose decreased to 20 mg daily due to chronic N/V. No sx of depression atthe time of DC from rehab. Anxiety is not adequately controlled even with the 40 mg dose of Prozac. Buspar was added to the drug regimen for better control of anxiety. (15) Anxiety: Status: Chronic Code(s): F41.9 - Anxiety disorder, unspecified Plan: Tolerating 5 mg BID of Buspar at [place] but, anxiety is not yet adequately controlled. Will defer increasing the dose in another 5-[address] Melgar. Plan 1. DC home with [facility]. 2. Dtr will continue to fill pill boxes for her and her son will continue to manage her finances. 3. Would avoid medications on the Beer's list if at all possible 4. Sleep study tonight and then will follow up with pulmonary to discuss the results 5. No driving while she is in a cervical collar. I am recommending that in light of dementia/poor memory that prior to resuming driving she follow up with driving assessment program at [facility] to be evaluated to make sureshe will be safe to drive. Information about the program and referral made about SW. 6. Has a follow up appt scheduled with Dr. Melgar. Will also need to follow up with Dr. Delgado for the fracture of the dens. 7. Continue Atrovent nasal spray for chronic rhinitis rather than restarting anantihistamine to avoid sedation and falls. 8. She had N/V despite being on a PPI and a H2 yeni. N/V resolved with decreasing the dose of the Prozac and discontinuing the Aricept. Likely does not need both a PPI and a H2 yeni for GERD. Will defer to Dr. Melgar to make that determination. Medications at Discharge Home Medications famotidine 40 mg tablet 40 mg PO QHS GERD 06/11/22 mirabegron 50 mg tablet,extended release 24 hr (Myrbetriq) 50 mg PO DAILY OAB 06/11/22 pantoprazole 40 mg granules delayed-release for susp in packet 40 mg PO DAILY GERD 06/11/22 ezetimibe 10 mg tablet 10 mg PO DAILY cholestorol 03/28/23 albuterol sulfate 90 mcg/actuation aerosol inhaler 2 inh inhalation Q4H PRN SOB,Wheezing 08/23/23 acetaminophen 500 mg tablet 1,000 mg (2 x 500 mg) PO Q8 #180 tabs 09/07/23 carvedilol 6.25 mg tablet 6.25 mg PO BIDCM #60 tabs 09/07/23 fluoxetine 20 mg capsule (Prozac) 20 mg PO DAILY #30 caps 09/07/23 ipratropium bromide 42 mcg (0.06 %) nasal spray 2 spray NASAL TID #1 BOTTLE 09/07/23 levothyroxine 50 mcg tablet 50 mcg PO DAILY@0600 #30 tabs 09/07/23 polyethylene glycol 3350 17 gram/dose oral powder (Miralax) 17 g PO BID #850 grams 09/07/23 tramadol 50 mg tablet 50 mg PO TID PRN Pain Score 4-10 #21 tabs 09/07/23 Hospital Course Operations None Procedures None Summary of Care Provided Minutes Spent on Discharge: 45 Hospital Course: GEORGINA SEGURA, is a 78 YO F with a past medical history of asthma, osteoarthritis, dementia without behavioral disturbance, chronic depression, GERD, history of a skull fracture in February 2023 secondary to fall, hyperlipidemia, hypothyroidism, chronic tremors of the right upper extremity, chronic rhinitis, chronic nausea/vomiting (was on Meloxicam at home prior to to the most recent fall), irritable bowel syndrome, neurogenic bladder, sleep apnea(noncompliant with CPAP due to claustrophobia) and urinary incontinence who presented to the emergency department at [facility] on 4after a fall at home. She has a history of frequent falls and in fact had a fall 2-3 weeks prior to the ED visit and had neck pain but, she did not seek medical attention for it. She complained of headache at presentation to the ED denied she had loss of consciousness. On physical examination cranial nerves IIthrough XII are grossly intact and she had no focal neurologic deficits. Noncontrast brain CT showed no acute intracranial abnormalities. CT scan of thecervical spine showed an acute pathologic type II odontoid fracture noted to extend through a 16 mm subchondral bone cyst. 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 She had prominent spondylosis with multilevel spinal and neuroforaminal stenoses. Lab was significant for acute renal failurewith a creatinine of 1.38 and a BUN of 29. She had 4 radha to close a laceration in the occipital area and she was transferred to [facility]. She did not require surgery. The cervical spine was immobilizedwith a [place] cervical collar. She was seen by PT/OT and acute inpt rehab was recommended at [place] from [facility]. She was transferred to the acute inpt rehab unit at [facility] on 08/23/23 for 3 hours of therapy daily to restore function at or near her level prior to the fall/fracture. An overnight trending pulse ox was done at presentation to rehab and it showed that the pulse ox was 88% or last 30% of the time that she was monitored. She was started on nasal O2 while sleeping and this significantly improved her confusion, drowsiness and performance in therapy. We also discontinued some of the sedating medications she had been taking as an OP. She had N/V and stomach discomfort the first few days she was on rehab despite being on a PPI and H2 yeni. Aricept was held and the dose of the Prozac was decreased to 20 mg daily. N/V resolved. She has not really been symptomatically depressed but, she is quite anxious and Prozac was not adequately controlling this. Her BP is very sensitive to any increase in anxiety. BP's were consistently significantlyelevated and she was started on Coreg. the Coreg has been effective in bringingthe BP down but, she still is getting Hydralazine usually once a day for elevated BP's. I suspect once the anxiety is under control the BP will be controlled at the current dose of Coreg which is 6.25 mg BID. Georgina did well in the therapy. At the time of DC from rehab she is modified independent with grooming, eating, bathing, upper body and lower body dressing, toileting and toilet transfer. She is supervision/set up for tub/shower transfer. She is able to do 12 sit to stands in 30 seconds using herbilateral upper extremities. She is able to ascend/descend three 4 inch steps and two 6 inch steps with 2 handrails at standby assist. She is ambulated with a straight cane on various surfaces for 930 feet at modified independent. Georgina was discharged from acute rehab on 09/08/23 and was sent to the sleep lab for a split sleep study. She will follow up with pulmonary medicine following the sleep study. Home O2 has been arranged and she will use the oxygen anytime she is sleeping. She and her family were instructed that she is not to drive while she has a cervical collar on and Dr. Delgado will let her know when it is safe to remove the collar. I also recommended that prior to her resuming driving she attend the charter driver evaluation program for physically and mentally impaired drivers at [facility] to make sure that she is safeto drive. A referral was made to the program and a handout was given to the patient telling her about the program. She is much more alert at discharge thanshe was at admission and I think she she will probably be safe for community driving. She has follow appts scheduled with Dr. Melgar and Dr. Delgado. she shouldhave a TSH and a T4 repeated in 4-6 weeks since the levothyroxine dose was changed. Would recommend avoiding use of medications on the Beer's list in thiselderly pat with dementia and frequent falls. Physical Exam Const alert and oriented x3 Constitutional Narrative: Making good eye contact when talking with me. Still very forgetful and asks me the same question not even 3 minutes I answered the question. General Appearance: cooperative HEENT moist oral mucous membranes HEENT Narrative: No evidence of thrush. Eyes PERRL and EOMs intact bilaterally Neck Neck Narrative: [place] collar is in place. Resp normal respiratory effort, normal air movement and clear to auscultation bilaterally Resp Narrative: Able to speak in complete sentences with no conversational dyspnea. Effort and Inspection: Negative for tachypneic Cardio regular rate, regular rhythm, no murmurs, no rub and no gallops Cardio Narrative: No ectopy GI normal to inspection, nondistended, normoactive bowel sounds, soft to palpation and non-tender GI Narrative: No guarding with palpation. Denies nausea. Extremity no calf tenderness Extremity Narrative: Trace edema in the ankles. Compression stockings are on. I recommended she continue use of the compression stockings at home to control LE edema due to venous insufficiency. General Extremity: Negative for clubbing or cyanosis Skin General Skin Exam: no breakdown Rashes: no rashes Neuro Neuro Narrative: Has tremors of the RUE and this is chronic. Psych cooperative Psych Narrative: Anxious about the sleep study and about going home. sleeping well at night and has a good appetite. Making good eye contact when talking with staff and has been interacting with staff and other patients on a regular basis. Not tearful. Very motivated to get better and get home. Appearance: appropriate Weight / BMI Weight Weight: 178 lb 5.663 oz Body Mass Index (BMI) 31.6 ABG / Lab / Microbiology Data 08/24/23 05:35 09/05/23 05:10 Microbiology: Microbiology 08/24/23 13:37 Stool Stool Occult Blood (STEFANY) - Final Occult Blood Positive D/C Instructions Discharge Diet: - (Low fat, low salt) Weight Bearing Status: Full weight bearing Keep extremity elevated above heart level: Legs Call your doctor if you observe: Fever of 101 or Higher, Inability to urinate, Shortness of breath, Dizziness, Fainting spells, Swelling in the ankles, Chest pain, Increased palpitations (irregular heartbeat), Calf discomfort and Uncontrolled pain Pending Tests Upon Discharge: none Please Follow Up With: Dinah Melgar MD When: Has an appt scheduled for near future. Meaningful Use Info Meaningful Use Meaningful Use Diagnoses (Choose all that apply): None applicable Ischemic Stroke Statin Dosing Therapy Reference: STATIN DOSE THERAPY REFERENCE: * Patients > 75 years receive moderate or high dose statin therapy. * Patients 75 years or YOUNGER should receive HIGH intensity statin dose unless contraindicated. You will be required to document reason for non-treatment if statin daily dose does not meet guidelines. HIGH DOSE STATIN THERAPY DAILY Atorvastatin > than or = to 40 mg Rosuvastatin > than or = to 20 mg Amlodipine + Atorvastatin > than or = to 2.5/40 mg Ezetimibe + Simvastatin 10/80 mg Simvastatin 80mg Discharge Plan Admission Admit Date/Time: 08/23/23 15:33 Primary Reason for Your Visit: Debility due to fall with fracture of the Dens. Attending Provider: Marina Gotti Primary Care Provider: Dinah Melgar Instructions Patient Instructions: What Are Snoring and Sleep Apnea?, Preventing Falls in the Home, Exercises to Prevent Falls Additional Instructions / Restrictions: 1. You have done very well in therapy! In order to maintain your stability with walking and strength you should start a regular exercise program at home. I have given you some printed information on an exercise program and The therapists have also talked with you about exercises to do once you are home. If you are not active and you sit around a lot then you will lose your strength and this will lead to more falls. You must USE IT OR LOSE IT Marina! This is especially important for you because I know you want to stay in your home and not have to go to a nursing facility. Falls lead to fractures and fractures lead to surgeries and increased disability. I have given you some information on how to prevent falls in the home. 2. There are a few things that have been contributing to memory loss besides dementia. Other things that contribute to loss of memory include an underactivethyroid, untreated sleep apnea, depression and lack of socialization. You were not taking quite enough thyroid supplement and we have increased the dose. Dr. Melgar will want to recheck your thyroid lab tests in another 4-6 weeks to make sure that you are on an appropriate dose. Over time the dose can change. Your oxygen was lower than it should be 30% of the time when you were sleeping. Whenthe oxygen drops that low your brain wakes you up to take a deep breath and you don't get into stage 4 sleep (also called REM sleep). This causes chronic sleepdeprivation and can lead to problems with the rhythm of your heart, strokes, restless legs, daytime sleepiness/napping, memory loss, etc. You became much more alert and able to remember from one day to the next what the therapists were telling you to do. We ALL noticed a big difference after you were on the oxygen at night for a few days. You will have a sleep study the night you are discharged from rehab and then follow up with the pulmonary doctor to discuss the results of the sleep study. 3. I don't think your dementia is as bad as everyone thought. I think it is a good idea for your daughter to continue setting up your medications for you and your son continues to manage your finances. I would recommend following up with a neurologist for some testing and recommendations on medications. I stopped the Aricept (donepezil) while you were on rehab. I stopped it to see ifthe Nausea and vomiting would resolve. GI upset is one of the most frequent side effects of that medication. If the neurologist thinks you need to be on Aricept prehaps you will tolerate a lower dose (like 5 mg a day). I also decreased the dose of Prozac because up to 29% of patients have nausea with Prozac. Fortunately with the changes in the medication the nausea and vomiting have gone away. You are taking 20 mg of Prozac daily now and your mood is good. You do get anxious and this is very common in the elderly, ayush those living alone. When you get anxious your BP increases significantly and we have had to start you on a BP pill. You worry about being alone, about having enough money to live on, about losing your memory and having to live in a chcf, aboutyour children and your grandchildren, about people trying to cheat you and take advantage of you and the list goes on. I have started you on a medication called Buspar. this medication treats only anxiety and it is not addictive. You take just take when you think you need it.....you have to take it 2-3 times a day as directed. I started you on twice a day and you have been tolerating itwell. If things change when you go home Dr. Melgar may have to increase the dose to 3 times a day and you should let him know how you are felling and what you are worried about. 4. It has been a pleasure meeting you and your family Marina. If you or your family have any questions following discharge from rehab please do not hesitate to call me. OFFICE: [phone] CELL: [phone] Discharge Orders/Prescriptions Prescriptions: New fluoxetine [Prozac] 20 mg capsule 20 mg PO DAILY Qty: 30 0RF carvedilol 6.25 mg Tablet 6.25 mg PO BIDCM Qty: 60 0RF tramadol 50 mg Tablet 50 mg PO TID PRN (Reason: Pain Score 4-10) Qty: 21 0RF Rx Instructions: 1 tab every 8 hours as needed for pain >3/10 acetaminophen 500 mg Tablet 1,000 mg PO Q8 Qty: 180 0RF levothyroxine 50 mcg Tablet 50 mcg PO DAILY@0600 Qty: 30 0RF ipratropium bromide 42 mcg (0.06 %) [place],Non-Aerosol 2 spray NASAL TID Qty: 1 0RF polyethylene glycol 3350 [Miralax] 17 gram/dose powder 17 g PO BID Qty: 850 0RF Continued famotidine 40 mg Tablet 40 mg PO QHS pantoprazole [address] [place] Susp In Packet 40 mg PO DAILY Myrbetriq 50 mg Tablet Extended Release 24 Hr 50 mg PO DAILY ezetimibe 10 mg tablet 10 mg PO DAILY albuterol sulfate 90 mcg/actuation HFA aerosol inhaler 2 inh inhalation Q4H PRN (Reason: SOB,Wheezing) Discontinued fluoxetine 40 mg Capsule 40 mg PO DAILY donepezil 10 mg Tablet 10 mg PO DAILY levothyroxine [Synthroid] 25 mcg Tablet 25 mcg PO DAILY tramadol 50 mg tablet 50 mg PO Q6H PRN (Reason: pain) oxybutynin chloride 10 mg tablet extended release 24hr 10 mg PO DAILY Referrals / Follow Up: Lab,Sleep [Other] - 09/08/23 8:00 pm (d/c 8pm to sleep lab ) Bro Delgado [Other] - 09/16/23 10:00 am (Need to do Xray prior to appointment. Can go to any [facility] Location) Dinah Melgar MD [Primary Care Provider] - 09/12/23 9:20 am Disposition Disposition (needs filled in before D/C Order can be placed): Home Health Service Charges/Coding Visit Charges Inpatient E&M: 76949 Disch Hosp >30min 09/08/23 1422 <Electronically signed by Marina Gotti DO> Cosigner Signature (if applicable): CC: Dr. Marina Gotti DO; Dr. Dinah Melgar MD~ Signed [facility] Work Phone: 1(309) 322-564505-02-2024 Progress note Author Marina [facility] September 08, 2023 11:43am Note Date/Time September 08, 2023 11:43a m [facility] Medical Records Department [address] [place] [address] Progress Note 09/08/23 1139 MR#: [id number] Acct: [id number] Name: GEORGINA SEGURA Rep #:[id number] : 1945 78 From: Marina Gotti DO PCP: Dr. Dinah Melgar MD Status:ADM I N Location: [place] [address] Subjective Subjective I reviewed the overnight trending pulse ox. she had desaturation of 88% and lessfor just over 5% of the time she was monitored. She had 1 desaturation event with O2 sat of 72% for over 60 sec. Will need home O2. Has sleep study scheduled [facility] and following the sleep study will follow up with pulmonary medicine to discuss the results. The overnight pulse ox has improved somewhat since admission when she was 86 or less 30% of the time she was monitored and I suspect this has everything to do with discontinuing some of thesedating medications she was taking. Objective Data Objective Data Vital Signs: Vital Signs Temp Pulse Resp BP Pulse Ox O2 Del Method O2 Flow Rate 97.6 F L 94 16 141/78 H 96 Room Air 2 09/08/23 06:00 09/08/23 10:00 09/08/23 06:00 09/08/23 10:00 09/08/23 06:00 09/08/23 06:00 09/05/23 22:00 FiO2 21 09/07/23 21:40 Oxygen Flow Rate (L/min) 2 Oxygen Delivery Method Room Air Weight: 177 lb 4.026 oz Body Mass Index (BMI) 31.4 Intake & Output: Intake and Output for Last 24 Hours 09/06/23 09/07/23 09/08/23 23:59 23:59 23:59 Intake Total 1370 / 1370 1510 / 1510 590 / 590 Output Total 1150 / 1150 650 / 650 400 / 400 Balance 220 / 220 860 / 860 190 / 190 Lab / Micro Data 08/24/23 05:35 09/05/23 05:10 Micro: Microbiology 08/24/23 13:37 Stool Stool Occult Blood (STEFANY) - Final Occult Blood Positive 09/08/23 1143 <Electronically signed by Marina Gotti DO> Marina Gotti DO Cosigner Signature (if applicable): CC: ~ Signed [facility] Work Phone: 1(250) 698-396705-01-2024 Discharge summary Author [facility] September 07, 2023 12:00pm Note Date/Time September 07, 2023 11:21a [facility] Medical Records Department [address] [place] [address] Instructions for Home/Discharge Instructions 09/07/23 1055 MR#: [id number] Acct: [id number] Name: GEORGINA SEGURA Rep #:[id number] : 1945 78 From: Marina Gotti DO PCP: Dr. Dinah Melgar MD Status:ADM I N Discharge Instructions Diet Discharge Diet: - (Low fat, low salt) Activity Discharge Activity: Return to Normal Activity Weight Bearing Status: Full weight bearing Keep extremity elevated above heart level: Legs Dressing / Incision Call your doctor if you observe: Fever of 101 or Higher, Inability to urinate, Shortness of breath, Dizziness, Fainting spells, Swelling in the ankles, Chest pain, Increased palpitations (irregular heartbeat), Calf discomfort and Uncontrolled pain Follow Up Care Please Follow Up With: Dinah Melgar MD When: Has an appt scheduled for near future. Test Results: Test results from this visit will be discussed in further detail at your follow- up appointment, if applicable. Pending Tests Upon Discharge: none Discharge Plan Admission Admit Date/Time: 08/23/23 15:33 Primary Reason for Your Visit: Debility due to fall with fracture of the Dens. Attending Provider: Marina Gotti Primary Care Provider: Dinah Melgar Instructions Patient Instructions: What Are Snoring and Sleep Apnea?, Preventing Falls in the Home, Exercises to Prevent Falls Additional Instructions / Restrictions: 1. You have done very well in therapy! In order to maintain your stability with walking and strength you should start a regular exercise program at home. I have given you some printed information on an exercise program and The therapists have also talked with you about exercises to do once you are home. If you are not active and you sit around a lot then you will lose your strength and this will lead to more falls. You must USE IT OR LOSE IT Marina! This is especially important for you because I know you want to stay in your home and not have to go to a nursing facility. Falls lead to fractures and fractures lead to surgeries and increased disability. I have given you some information on how to prevent falls in the home. 2. There are a few things that have been contributing to memory loss besides dementia. Other things that contribute to loss of memory include an underactivethyroid, untreated sleep apnea, depression and lack of socialization. You were not taking quite enough thyroid supplement and we have increased the dose. Dr. Melgar will want to recheck your thyroid lab tests in another 4-6 weeks to make sure that you are on an appropriate dose. Over time the dose can change. Your oxygen was lower than it should be 30% of the time when you were sleeping. Whenthe oxygen drops that low your brain wakes you up to take a deep breath and you don't get into stage 4 sleep (also called REM sleep). This causes chronic sleepdeprivation and can lead to problems with the rhythm of your heart, strokes, restless legs, daytime sleepiness/napping, memory loss, etc. You became much more alert and able to remember from one day to the next what the therapists were telling you to do. We ALL noticed a big difference after you were on the oxygen at night for a few days. You will have a sleep study the night you are discharged from rehab and then follow up with the pulmonary doctor to discuss the results of the sleep study. 3. I don't think your dementia is as bad as everyone thought. I think it is a good idea for your daughter to continue setting up your medications for you and your son continues to manage your finances. I would recommend following up with a neurologist for some testing and recommendations on medications. I stopped the Aricept (donepezil) while you were on rehab. I stopped it to see ifthe Nausea and vomiting would resolve. GI upset is one of the most frequent side effects of that medication. If the neurologist thinks you need to be on Aricept prehaps you will tolerate a lower dose (like 5 mg a day). I also decreased the dose of Prozac because up to 29% of patients have nausea with Prozac. Fortunately with the changes in the medication the nausea and vomiting have gone away. You are taking 20 mg of Prozac daily now and your mood is good. Youdo get anxious and this is very common in the elderly, ayush those living alone. When you get anxious your BP increases significantly and we have had to start you on a BP pill. You worry about being alone, about having enough money to live on, about losing your memory and having to live in a chcf, about your children and your grandchildren, about people trying to cheat you and take advantage of you and the list goes on. I have started you on a medication called Buspar. this medication treats only anxiety and it is not addictive. You take just take when you think you need it.....you have to take it 2-3 times a day as directed. I started you on twice a day and you have been tolerating itwell. If things change when you go home Dr. Melgar may have to increase the dose to 3 times a day and you should let him know how you are felling and what you are worried about. 4. It has been a pleasure meeting you and your family Marina. If you or your family have any questions following discharge from rehab please do not hesitate to call me. OFFICE: [phone] CELL: [phone] Discharge Orders/Prescriptions Prescriptions: New fluoxetine [Prozac] 20 mg capsule 20 mg PO DAILY Qty: 30 0RF carvedilol 6.25 mg Tablet 6.25 mg PO BIDCM Qty: 60 0RF tramadol 50 mg Tablet 50 mg PO TID PRN (Reason: Pain Score 4-10) Qty: 21 0RF Rx Instructions: 1 tab every 8 hours as needed for pain >3/10 acetaminophen 500 mg Tablet 1,000 mg PO Q8 Qty: 180 0RF levothyroxine 50 mcg Tablet 50 mcg PO DAILY@0600 Qty: 30 0RF ipratropium bromide 42 mcg (0.06 %) [place],Non-Aerosol 2 spray NASAL TID Qty: 1 0RF polyethylene glycol 3350 [Miralax] 17 gram/dose powder 17 g PO BID Qty: 850 0RF Continued famotidine 40 mg Tablet 40 mg PO QHS pantoprazole [address] For Susp In Packet 40 mg PO DAILY Myrbetriq 50 mg Tablet Extended Release 24 Hr 50 mg PO DAILY ezetimibe 10 mg tablet 10 mg PO DAILY albuterol sulfate 90 mcg/actuation HFA aerosol inhaler 2 inh inhalation Q4H PRN (Reason: SOB,Wheezing) Discontinued fluoxetine 40 mg Capsule 40 mg PO DAILY donepezil 10 mg Tablet 10 mg PO DAILY levothyroxine [Synthroid] 25 mcg Tablet 25 mcg PO DAILY tramadol 50 mg tablet 50 mg PO Q6H PRN (Reason: pain) oxybutynin chloride 10 mg tablet extended release 24hr 10 mg PO DAILY Referrals / Follow Up: Lab,Sleep [Other] - 09/08/23 8:00 pm (d/c 8pm to sleep lab ) Bro Delgado [Other] - 09/16/23 10:00 am (Need to do Xray prior to appointment. Can go to any [facility] Location) Dinah Melgar MD [Primary Care Provider] - 09/12/23 9:20 am Disposition Disposition (needs filled in before D/C Order can be placed): Home Health Service 09/07/23 1200<Electronically signed by Marina Gotti DO>Marina Gotti DO CC: Dr. Dinah Melgar MD ~ Signed [facility] Work Phone: 1(103) 309-309905-01-2024 [facility] Medical Records Department [address] [place] [address] Discharge Summary 09/07/23 1203 MR#: [id number] Acct: [id number] Name: GEORGINA SEGURA Rep #: [id number] : 1945 78 From: Marina Gotti DO PCP: Dr. Dinah Melgar MD Status:ADM IN Location: [place] [address] Providers Date of Admission: 08/23/23 Date of Discharge: 09/08/23 Primary Care Physician: Dr. Dinah Melgar MD None Reason For Visit: CERVICAL FRACTURE Diagnosis Discharge Diagnosis (1) Debility: Status: Acute Code(s): R53.81 - Other malaise Plan: Due to non-displaced fractures of the dens due to falls. (2) Frequent falls: Status: Chronic Code(s): R29.6 - Repeated falls Plan: Related to untreated sleep apnea, sedating medications, elevated TSH, etc. (3) Closed type II fracture of odontoid process: Status: Inactive Code(s): S12.110A - Anterior displaced Type II dens fracture, initial encounter for closed fracture (4) Laceration of scalp: Status: Inactive Code(s): S01.01XA - Laceration without foreign body of scalp, initial encounter Qualifiers: Encounter type: subsequent encounter Qualified Code(s): S01.01XD - Laceration without foreign body of scalp, subsequent encounter Plan: Healed. Radha removed. (5) Closed head injury: Status: Acute Code(s): S09.90XA - Unspecified injury of head, initial encounter Qualifiers: Encounter type: subsequent encounter Qualified Code(s): S09.90XD - Unspecified injury of head, subsequent encounter (6) Hypothyroid: Status: Chronic Code(s): E03.9 - Hypothyroidism, unspecified Qualifiers: Hypothyroidism type: acquired Qualified Code(s): E03.9 - Hypothyroidism, unspecified Plan: TSH was elevated. Levothyroxine dose increased from 25 mcg daily to 50 mcg daily. Will need a follow up TSH/T4 in 4-6 weeks. (7) Elevated TSH: Status: Acute Code(s): R79.89 - Other specified abnormal findings of blood chemistry (8) Concussion: Status: Inactive Code(s): S06.0XAA - Concussion with loss of consciousness status unknown, initial encounter Qualifiers: Encounter type: subsequent encounter Loss of consciousness presence/duration: without LOC Qualified Code(s): S06.0X0D - Concussion without loss of consciousness, subsequent encounter (9) Nausea and vomiting: Status: Resolved Code(s): R11.2 - Nausea with vomiting, unspecified Qualifiers: Vomiting type: unspecified Qualified Code(s): R11.2 - Nausea with vomiting, unspecified Plan: Resolved with discontinuation of Aricept and decreasing the dose of Prozac. May consider restarting Aricept at 5 mg as an OP to see if she can tolerate a lower dose without recurrent N/V. (10) Heme positive stool: Status: Acute Code(s): R19.5 - Other fecal abnormalities Plan: Heme positive stool but with no anemia. Will defer workup to her family practitioner. (11) HTN (hypertension): Status: Chronic Code(s): I10 - Essential (primary) hypertension Qualifiers: Hypertension type: unspecified Qualified Code(s): I10 - Essential (primary) hypertension Plan: Catecholamine driven. Good response to Coreg but, BP still goes up with anxiety and we have needed to give Hydralazine at times. doing better with the addition of Buspar to the drug regimen. On 5 mg BID at DC......will likely need to increase the dose going forward. Tolerating with no adverse side effects at the time of DC from rehab. (12) Lightheadedness: Status: Resolved Code(s): R42 - Dizziness and giddiness Plan: Dur to decreased intravascular volume at DC. Doing much better with fluid intake at the time of DC from rehab. (13) NAYA (obstructive sleep apnea): Status: Chronic Code(s): G47.33 - Obstructive sleep apnea (adult) (pediatric) Plan: Scheduled for a sleep study on 09/08/23 and then will follow up with pulmonary medicine. Discharging home on nasal O2 when sleeping. (14) Depression: Status: Chronic Code(s): F32.A - Depression, unspecified Qualifiers: Depression Type: unspecified Qualified Code(s): F32.A - Depression, unspecified Plan: Prozac dose decreased to 20 mg daily due to chronic N/V. No sx of depression at the time of DC from rehab. Anxiety is not adequately controlled even with the 40 mg dose of Prozac. Buspar was added to the drug regimen for better control of anxiety. (15) Anxiety: Status: Chronic Code(s): F41.9 - Anxiety disorder, unspecified Plan: Tolerating 5 mg BID of Buspar at [place] but, anxiety is not yet adequately controlled. Will defer increasing the dose in another 5-[address] Melgar. Plan 1. DC home with [facility]. 2. Dtr will continue to fill pill boxes for her and her son will continue to manage her finances. 3. Would avoid medications on the Beer's list if at all possible 4. Sleep study tonight and then will follow up with pulmonary to discuss the results 5. No driving while she is in a cervical collar. I am recommen (more content not included)...[facility]04-30-2024 Telephone encounter Note* Telephone Encounter - Neyda Birmingham MA - 09/06/2023 4:40 PM EDT Called and spoke with Marie due to Natalee not being available. Notified her of message below from Provider, she verbalized understanding. She did ask if pt had an upcoming appt, which she is scheduled on 09/12/23 for a routine follow up. Neyda Birmingham MA [facility]04-30-2024 Miscellaneous Notes* Telephone Encounter - Neyda Birmingham MA - 09/06/2023 4:40 PM EDT Called and spoke with Marie due to Natalee not being available. Notified her of message below from Provider, she verbalized understanding. She did ask if pt had an upcoming appt, which she is scheduled on 09/12/23 for a routine follow up. Neyda Birmingham MA * Telephone Encounter - Marjorie Villegas PA-C - 09/06/2023 4:36 PM EDT Yes, Dr. Melgar will cover. Johnathan Hercules PA-C * Telephone Encounter - Jessica Gamboa LPN - 09/06/2023 1:49 PM EDT Natalee with [facility] calling to let you know they were contacted by [facility] for HH. Pt is going to be discharged from the hospital on and checking to see if you will follow for nursing, PTand OT . DX fall.cervical fracture. Please advise Natalee with verbal orders Jessica Gamboa LPN [facility] Telephone encounter Note * Telephone Encounter - Marjorie Villegas PA-C - 09/06/2023 4:36 PM EDT Yes, Dr. Melgar will cover. Johnathan Hercules PA-C [facility] Work Phone: 1(933) 317-629604-30-2024 Telephone encounter Note* Telephone Encounter - Jessica Gamboa LPN - 09/06/2023 1:49 PM EDT Natalee with [facility] calling to let you know they were contacted by [facility] for HH. Pt is going to be discharged from the hospital on and checking to see if you will follow for nursing, PTand OT . DX fall.cervical fracture. Please advise Natalee with verbal orders Jessica Gamboa LPN [facility]04-29-2024 Progress note Author Marina Gotti [facility] September 05, 2023 3:40pm Note Date/Time September 05, 2023 10: 28am [facility] Medical Records Department [address] [place] [address] Progress Note 09/05/23 1027 MR#: [id number] Acct: [id number] Name: GEORGINA SEGURA Rep #:[id number] : 1945 78 From: Marina Cesar Gotti DO PCP: Dr. Dinah Melgar MD Status:ADM I N Location: [place] [address] Subjective Subjective Georgina was seen on team rounds today. Her family was present in the room. Afebrile VSS -blood pressures are erratic. Yesterday at 10 AM the recorded blood pressure was 87/50. Orthostatics last week were negative but Occupational Therapy recorded a drop in blood pressure when going from sitting to standing that could not really reproduce later in the day. Blood pressure this morning is 122/70 with a pulse rate of 77. Current antihypertensives include carvedilol6.25 mg twice daily and lisinopril 10 mg daily. Maintaining appropriate oxygen saturation on RA Oral intake - FOOD good FLUIDS good, much better than at admission. Discussed with nursing - no problems that need addressed Reviewed the THERAPY notes Medication list reviewed. But he denies lightheadedness, cephalgia, vertigo, shortness of breath, chest pain, nausea/vomiting/epigastric pain, dysuria and calf tenderness. Georgina admits to feeling anxious. She does not c/o feeling depressed. She is more worried about what is to happen to her at DC. Will she have enough money to live on. She she be able to stay in her current living situation. We discussed with Georgina and her family that this is quite normal/common in elderly, ayush when they live by themselves. Family will continue to manage her meds at home and her finances. Cognition has improved with applying oxygen at night. She is scheduled for a sleep study night following DC from reha.. Has been very cooperative with therapy and has been making good progress. Very important for her to maintain an exercise program post DC from rehab. Objective Data Objective Data Vital Signs: Vital Signs Temp Pulse Resp BP Pulse Ox O2 Del Method O2 Flow Rate 97.5 F L 77 16 122/70 H 98 Room Air 2 09/05/23 05:14 09/05/23 10:09/05/23 10:00 09/05/23 10:00 09/05/23 10:09/05/23 10:00 09/03/23 05:07 FiO2 21 08/25/23 21:14 Oxygen Flow Rate (L/min) 2 Oxygen Delivery Method Room Air Weight: 181 lb 10.574 oz Body Mass Index (BMI) 32.1 Intake & Output: Intake and Output for Last 24 Hours 09/03/23 09/04/23 09/05/23 23:59 23:59 23:59 Intake Total 2220 / 2220 1720 / 1720 300 / 300 Output Total 800 / 800 900 / 900 450 / 450 Balance 1420 / 1420 820 / 820 -150 / -150 Lab / Micro Data 08/24/23 05:35 09/05/23 05:10 Labs: Laboratory Results - last 24 hr 09/05/23 05:10: Sodium 138, Potassium 4.4, Chloride 104, Carbon Dioxide 30.0, Anion Gap 4 L, BUN 20 H, Creatinine 1.30 H, Estim Creat Clear Calc 35.00, Est GFR (MDRD) Af Amer 51 L, Est GFR (MDRD) Non-Af 42 L, BUN/Creatinine Ratio 15.4, Glucose 98, Calcium 9.4 Micro: Microbiology 08/24/23 13:37 Stool Stool Occult Blood (STEFANY) - Final Occult Blood Positive Physical Exam Const alert and no apparent distress Constitutional Narrative: Paying close attention to what is being said on team rounds. Making good eye contact with the speakers. Much more alert and able to focus since arrival on rehab. Making good progress in therapy. General Appearance: cooperative HEENT moist oral mucous membranes Neck Neck Narrative: [place] collar is in place. Resp normal respiratory effort, normal air movement and clear to auscultation bilaterally Resp Narrative: Able to speak in complete sentences with no conversational dyspnea. Effort and Inspection: Negative for tachypneic or labored Cardio regular rate, regular rhythm and no gallops GI normal to inspection, nondistended, normoactive bowel sounds, soft to palpation and non-tender GI Narrative: No guarding with palpation. Denies nausea. Extremity no calf tenderness Extremity Narrative: Trace edema in the ankles. Compression stockings are on. Skin General Skin Exam: no breakdown Rashes: no rashes Psych cooperative and affect normal Appearance: appropriate Assessment & Plan Assessment/Plan (1) Debility: (2) Frequent falls: (3) Closed type II fracture of odontoid process: (4) Laceration of scalp: QUALIFIERS: Encounter type: subsequent encounter Qualified Code(s): S01.01XD - Laceration without foreign body of scalp, subsequent encounter (5) Closed head injury: QUALIFIERS: Encounter type: subsequent encounter Qualified Code(s): S09.90XD - Unspecified injury of head, subsequent encounter (6) Hypothyroid: QUALIFIERS: Hypothyroidism type: acquired Qualified Code(s): E03.9 - Hypothyroidism, unspecified (7) Elevated TSH: (8) Concussion: QUALIFIERS: Encounter type: subsequent encounter Loss of consciousness presence/duration: without LOC Qualified Code(s): S06.0X0D - Concussion without loss of consciousness, subsequent encounter (9) Nausea and vomiting: QUALIFIERS: Vomiting type: unspecified Qualified Code(s): R11.2 -Nausea with vomiting, unspecified PLAN: Resolved with discontinuation of Aricept and decreasing the dose of Prozac. (10) Heme positive stool: PLAN: Heme positive stool but with no anemia. Will defer workup to her family practitioner. (11) HTN (hypertension): QUALIFIERS: Hypertension type: unspecified Qualified Code(s): I10- Essential (primary) hypertension PLAN: Catecholamine driven. good response to Coreg but, BP still goes up with anxiety and we have needed to give Hydralazine at times. (12) Lightheadedness: (13) NAYA (obstructive sleep apnea): PLAN: Plan 1. Continue therapy 2. Change the Tramadol to TID PRN. Continue acetaminophen 1000 mg p.o. every 8hours. 3. Consider restarting Aricept at a lower dose to see if she can tolerate. 10 mg caused nausea and vomiting. We also decreased the dose of Prozac because of the nausea........12-29% of people on Prozac have nausea. 4. May need to add something for anxiety. Would consider Buspar. She is not depressed........She is more anxious than depressed. PT is agreeable to starting Buspar for anxiety. and will decrease Prozac to 20 mg and hold there. 5. DC lisinopril due to Low BP and continue Coreg. Continue as needed hydralazine. I suspect if we control her anxiety the blood pressures will come down. 6. Check orthostatics today 7. I recommended they consider seeing a neurologist to assess for dementia and need for medications such as Aricept and Namenda. They had been going to see a neurologist in the past but, they never made it there. With treating sleep apnea and increasing the Levothyroxine may not need Aricept. Charges/Coding Visit Charges Inpatient E&M: 03727 Subs Hosp L2 09/05/23 1540 <Electronically signed by Marina Gotti DO> Marina Gotti DO Cosigner Signature (if applicable): CC: ~ Signed [facility] Work Phone: 1(234) 937-357304-25-2024 Progress note Author Marina Gotti [facility] September 01, 2023 4:59pm Note Date/Time September 01, 2023 12: 11pm [facility] Medical Records Department [address] [place] [address] Progress Note 09/01/23 1201 MR#: [id number] Acct: [id number] Name: GEORGINA SEGURA Rep #:[id number] : 1945 78 From: Marina Gotti DO PCP: Dr. Dinah Melgar MD Status:ADM I N Location: [place] [address] Subjective Subjective Afebrile VSS Maintaining appropriate oxygen saturation on RA Oral intake - FOOD good FLUIDS improving- She had 1340 in yesterday. Fluidbalance yesterday was +540. Discussed with nursing - no problems that need addressed Reviewed the THERAPY notes Medication list reviewed. Georgina tells me that she became lightheaded with standing today and had to sit back down. She told me that her BP dropped however I do not see that reflected in the nurses note. Will check with nursing. She also tells me that she has a cough but, I had her take multiple deep breaths and she never coughed. The lungs were CTA after deep breaths. She has had rhinitis and is on Atrovent nasal spray.....cough may be due to post nasal drainage. She denies CP, SOB, cephalgia, radicular pain into her legs and arms, nausea/vomiting.......this is better since we have been holding the Aricept. She did not need to take any Zofran yesterday or today. She last took Zofran on 08/30/2023 at 06 40. She also denies calf pain and dysuria. Objective Data Objective Data Vital Signs: Vital Signs Temp Pulse Resp BP Pulse Ox O2 Del Method O2 Flow Rate 97.8 F 86 16 145/69 H 93 Room Air 2 09/01/23 06:00 09/01/23 06:00 09/01/23 06:00 09/01/23 06:00 09/01/23 06:00 09/01/23 10:00 08/31/23 22:59 FiO2 21 08/25/23 21:14 Oxygen Flow Rate (L/min) 2 Oxygen Delivery Method Room Air Weight: 186 lb 12.8 oz Body Mass Index (BMI) 33.0 Intake & Output: Intake and Output for Last 24 Hours 08/30/23 08/31/23 09/01/23 23:59 23:59 23:59 Intake Total 570 / 570 1340 / 1340 360 / 360 Output Total 800 / 800 200 / 200 Balance 570 / 570 540 / 540 160 / 160 Lab / Micro Data 08/24/23 05:35 08/29/23 05:43 Micro: Microbiology 08/24/23 13:37 Stool Stool Occult Blood (STEFANY) - Final Occult Blood Positive Physical Exam Const alert Constitutional Narrative: Sitting in the recliner at the bedside and has almost finished 900 cc's of water. General Appearance: cooperative Neck Neck Narrative: [place] collar is in place. Resp normal respiratory effort, normal air movement and clear to auscultation bilaterally Resp Narrative: Able to speak in complete sentences with no conversational dyspnea. Effort and Inspection: Negative for tachypneic or labored Cardio regular rate, regular rhythm and no gallops GI normal to inspection, nondistended, normoactive bowel sounds, soft to palpation and non-tender GI Narrative: No guarding with palpation. Denies nausea. Extremity no calf tenderness Extremity Narrative: Trace edema in the ankles. Compression stockings are on. Skin General Skin Exam: no breakdown Rashes: no rashes Psych cooperative and affect normal Appearance: appropriate Assessment & Plan Assessment/Plan (1) Debility: (2) Frequent falls: (3) Closed type II fracture of odontoid process: (4) Laceration of scalp: QUALIFIERS: Encounter type: subsequent encounter Qualified Code(s): S01.01XD - Laceration without foreign body of scalp, subsequent encounter (5) Closed head injury: QUALIFIERS: Encounter type: subsequent encounter Qualified Code(s): S09.90XD - Unspecified injury of head, subsequent encounter (6) Hypothyroid: QUALIFIERS: Hypothyroidism type: acquired Qualified Code(s): E03.9 - Hypothyroidism, unspecified (7) Elevated TSH: (8) Concussion: QUALIFIERS: Encounter type: subsequent encounter Loss of consciousness presence/duration: without LOC Qualified Code(s): S06.0X0D - Concussion without loss of consciousness, subsequent encounter (9) Nausea and vomiting: QUALIFIERS: Vomiting type: unspecified Qualified Code(s): R11.2 -Nausea with vomiting, unspecified (10) Heme positive stool: (11) HTN (hypertension): QUALIFIERS: Hypertension type: unspecified Qualified Code(s): I10- Essential (primary) hypertension (12) Lightheadedness: PLAN: Plan 1. Continue therapy 2. Check orthostatic vital signs today. She was not orthostatic at admission however she has been started on antihypertensives so will repeat the orthostatics. She has been increasing her fluid intake as instructed. 3. BMP has been ordered for the morning 4. I think the nausea is due to Aricept. I suspect she does not need both Famotidine and Protonix. Continue to hold the Aricept......try restarting at a lower dose or consider Namenda or follow up with neurolog Charges/Coding Visit Charges Inpatient E&M: 75128 Subs Hosp L1 09/01/23 1219 <Electronically signed by Marina Gotti DO> Marina Gotti DO Cosbrijesher Signature (if applicable): CC: ~ Signed ADDENDUM by Dr. Marina Gotti DO on 09/01/23 at 1659 Addendum Orthostatics were negative today when taking in the afternoon. This morning when OT tried to work with her the blood pressure sitting was 103/56 and standing dropped to 94/65 and she complained of lightheadedness. We decreased the lisinopril dose to 10 mg daily. 09/01/23 1659 <Electronically signed by Marina orr DO> Date _ Marina Gotti DO Cosigner Signature (if applicable): Date ____ cc: ~* Signed [facility] Work Phone: 1(300) 923-187504-24-2024 Progress note Author Marina Gotti [facility] August 31, 2023 5:50pm Note Date/Time August 31, 2023 5:2 8pm [facility] Medical Records Department [address] [place] [address] Progress Note 08/31/23 1724 MR#: [id number] Acct: [id number] Name: GEORGINA SEGURA Rep #:[id number] : 1945 78 From: Marina Gotti DO PCP: Dr. Dinah Melgar MD Status:ADM I N Location: [place] [address] Subjective Subjective Afebrile VSS-blood pressure over the past 24 hours has ranged from 136/87 to 155/78. Shehas not required any as needed hydralazine over the past 24 hours. Heart rate is within normal limits. Maintaining appropriate oxygen saturation on RA Oral intake - FOOD good FLUIDS intake and output for 08/30/2023 is not accurate. Intake and output have been ordered in the past. So far today she has had 740 in 800 out. Discussed with nursing - no problems that need addressed Reviewed the THERAPY notes Medication list reviewed. Current antihypertensives include lisinopril 20 mg daily, carvedilol 3.125 mg twice daily and as needed hydralazine. She tells me that her nose is not congested today. She denies lightheadedness, cephalgia, pain radiating into her arms or legs, chest pain, shortness of breath, palpitations, dysuria and calf tenderness. She tells me she was coughing during speech therapy today and had to drink water. Objective Data Objective Data Vital Signs: Vital Signs Temp Pulse Resp BP Pulse Ox O2 Del Method O2 Flow Rate 97.8 F 76 18 155/78 H 97 Room Air 18 08/31/23 09:52 08/31/23 09:52 08/31/23 09:52 08/31/23 09:52 08/31/23 09:52 08/31/23 09:52 08/25/23 21:14 FiO2 21 08/25/23 21:14 Oxygen Flow Rate (L/min) 18 Oxygen Delivery Method Room Air Weight: 186 lb 8.177 oz Body Mass Index (BMI) 33.0 Intake & Output: Intake and Output for Last 24 Hours 08/29/23 08/30/23 08/31/23 23:59 23:59 23:59 Intake Total 1979 / 1979 570 / 570 740 / 740 Output Total 760 / 760 800 / 800 Balance 1220 / 1220 570 / 570 -60 / -60 Lab / Micro Data 08/24/23 05:35 08/29/23 05:43 Micro: Microbiology 08/24/23 13:37 Stool Stool Occult Blood (STEFANY) - Final Occult Blood Positive Physical Exam Const alert and oriented x3 General Appearance: cooperative HEENT normocephalic, hearing grossly normal bilaterally, external ears normal and external nose normal Eyes PERRL, EOMs intact bilaterally, conjunctivae normal and no scleral icterus Eyes Narrative: No discharge from the eyes. Neck Neck Narrative: [place] cervical collar is in place. Chest Chest Narrative: She has some pain with palpation over the distal manubrium and the xiphoid. No bruising, erythema or opening in the skin. Chest: symmetrical chest wall rise Resp normal respiratory effort and clear to auscultation bilaterally Effort and Inspection: Negative for tachypneic or labored Cardio regular rate, regular rhythm and no gallops Cardio Narrative: No ectopy GI normal to inspection, nondistended, normoactive bowel sounds, soft to palpation and non-tender GI Narrative: No guarding with palpation. Not tympanic. Denies feeling bloated. Had some nausea this AM.......states she threw up however nursing reports it was primarily spit in the emesis bag. Stool is heme +. Will need to enquire if wade ever had an EGD or a colonoscopy. no CVA tenderness Back/Spine straight leg raise negative bilaterally Back/Spine Narrative: No pain with palpation or percussion over the vertebrae. No abrasions on the back. Extremity no calf tenderness Extremity Narrative: mild pitting edema over the distal anterior tibia BL General Extremity: Negative for edema Skin Skin Narrative: Laceration is intact with no dehiscence, no purulent DC and no gina-incisional erythema. General Skin Exam: no breakdown Rashes: no rashes Neuro oriented x3, CN's II-XII intact bilaterally, moves all extremities and no focal motor deficits Psych affect normal Psych Narrative: Making good eye contact with me when we talk. She is calm and not anxious or restless. Appearance: appropriate Attitude: calm and engaged Activity / Motor Behavior: appropriate eye contact; Negative for psychomotor agitation Speech: normal speech Assessment & Plan Assessment/Plan (1) Debility: (2) Frequent falls: (3) Closed type II fracture of odontoid process: (4) Laceration of scalp: QUALIFIERS: Encounter type: subsequent encounter Qualified Code(s): S01.01XD - Laceration without foreign body of scalp, subsequent encounter (5) Closed head injury: QUALIFIERS: Encounter type: subsequent encounter Qualified Code(s): S09.90XD - Unspecified injury of head, subsequent encounter (6) Hypothyroid: QUALIFIERS: Hypothyroidism type: acquired Qualified Code(s): E03.9 - Hypothyroidism, unspecified (7) Elevated TSH: (8) Concussion: QUALIFIERS: Encounter type: subsequent encounter Loss of consciousness presence/duration: without LOC Qualified Code(s): S06.0X0D - Concussion without loss of consciousness, subsequent encounter (9) Nausea and vomiting: QUALIFIERS: Vomiting type: unspecified Qualified Code(s): R11.2 -Nausea with vomiting, unspecified (10) Heme positive stool: (11) HTN (hypertension): QUALIFIERS: Hypertension type: unspecified Qualified Code(s): I10- Essential (primary) hypertension PLAN: Plan 1. Continue therapy 2. Continue to encourage increased fluid intake 3. Increase Coreg to 6.25 mg twice daily and continue to monitor blood pressureevery 4 hours while awake. Seems to be responding well to Coreg. May be able to decrease or wean lisinopril off as we increase the Coreg. I suspect increased catecholamine release with stress contributes to her hypertension significantly. 4. Recheck a BMP on Tuesday. 5. The sleep lab was able to get her in for a sleep study on the night following discharge from acute rehab. She will go home in the a.m. on Tuesday. She will follow-up with the pulmonary department to discuss the results. Will need oxygen at discharge. Will need to repeat an overnight trending pulse ox prior to discharge. Charges/Coding Visit Charges Inpatient E&M: 73013 Subs Hosp L1 08/31/23 1750 <Electronically signed by Marina Gotti DO> Marina Gotti DO Cosigner Signature (if applicable): CC: ~ Signed [facility] Work Phone: 1(165) 721-900904-22-2024 Progress note Author Marina Shen [facility] August 29, 2023 5:39pm Note Date/Time August 29, 2023 12: 16pm [facility] Medical Records Department [address] [place] [address] Progress Note 08/29/23 1209 MR#: [id number] Acct: [id number] Name: GEORGINA SEGURA Rep #:[id number] : 1945 78 From: Marina Gotti DO PCP: Dr. Dinah Melgar MD Status:ADM I N Location: [place] [address] Subjective Subjective Georgina was seen on TEAM rounds today. Her son and dtr were present in the room for rounds. Their questions were answered to their satisfaction. Afebrile VSS-blood pressures are not adequately controlled and over the past 24 hours have ranged from 152/76 to 163/92. She received a dose of hydralazine this morning at 5 AM for a blood pressure of 163/92. Blood pressure did not improve with hydralazine. Orthostatics were done today and the blood pressure lying down was 161/89. Sitting it was 179/98 and standing it was 165/85. And this isnot consistent with orthostatic hypotension. Maintaining appropriate oxygen saturation on RA Oral intake - FOOD good FLUIDS poor Discussed with nursing - no problems that need addressed. Radha were removed from the head over the occiput. Reviewed the THERAPY notes Medication list reviewed. All lab drawn this morning was personally reviewed. Sodium is normal at 138 andthe potassium is 3.8 and stable. The BUN is 13 and the creatinine is 1.12 whichis up from 1.02 on 08/24/2023. The therapists and nursing staff have noted a significant improvement in level of alertness, concentration and ability to remember things since she has been wearing the O2 at night. the patient has also noted a difference in her thoughtprocesses and ability to follow instructions. Her BCAT was 32 at admission and has improved to 39 already in less than a week. She is c/o not being able to sleep well at night. This has not been mentioned in the nursing notes. Family notes that her diet at home has been not good. She will buy a pizza and eat nothing but pizza for a few days. They tell me that she has never had HTN in the past. I suspect she has white coat HTN and it is fine when she is at home and comfortable and elevated with stress/anxiety. Has never had an ECHO but, would not be surprised if she has LVH/diastolic dysfunction. Georgina is c/o pain in the knees. This is a chronic problem and she has been getting injections from [facility]. She denies WARD, lightheadedness, CP, SOB, dysuria. She tells me that she has been getting Botox injections in the bladder from Dr. Gomez for bladder spasms. She has frequency and urgency. Denies dysuria. Objective Data Objective Data Vital Signs: Vital Signs Temp Pulse Resp BP Pulse Ox O2 Del Method O2 Flow Rate 98.2 F 89 18 152/76 H 94 Room Air 18 08/29/23 07:28 08/29/23 07:28 08/29/23 07:28 08/29/23 07:28 08/29/23 07:28 08/29/23 07:28 08/25/23 21:14 FiO2 21 08/25/23 21:14 Oxygen Flow Rate (L/min) 18 Oxygen Delivery Method Room Air Weight: 190 lb 11.2 oz Body Mass Index (BMI) 33.7 Intake & Output: Intake and Output for Last 24 Hours 08/27/23 08/28/23 08/29/23 23:59 23:59 23:59 Intake Total 1610 / 1610 240 / 240 690 / 690 Output Total 200 / 200 260 / 260 Balance 1610 / 1610 40 / 40 430 / 430 Lab / Micro Data 08/24/23 05:35 08/29/23 05:43 Labs: Laboratory Results - last 24 hr 08/29/23 05:43: Sodium 138, Potassium 3.8, Chloride 104, Carbon Dioxide 27.0, Anion Gap 7, BUN 13, Creatinine 1.12 H, Estim Creat Clear Calc 41.77, Est GFR (MDRD) Af Amer 60, Est GFR (MDRD) Non-Af 50 L, BUN/Creatinine Ratio 11.6, Glucose 117 H, Calcium 8.9 Micro: Microbiology 08/24/23 13:37 Stool Stool Occult Blood (STEFANY) - Final Occult Blood Positive Physical Exam Const alert and no apparent distress General Appearance: cooperative Neck Neck Narrative: [place] cervical collar is in place. Resp normal respiratory effort, normal air movement and clear to auscultation bilaterally Effort and Inspection: able to speak in complete sentences; Negative for tachypneic or respiratory distress Cardio regular rate, regular rhythm and no gallops Cardio Narrative: No ectopy GI normal to inspection, nondistended, normoactive bowel sounds, soft to palpation and non-tender Extremity no calf tenderness Extremity Narrative: mild pitting edema over the distal anterior tibia BL Skin Skin Narrative: Laceration is intact with no dehiscence, no purulent DC and no gina-incisional erythema. General Skin Exam: no breakdown Rashes: no rashes Assessment & Plan Assessment/Plan (1) Debility: (2) Frequent falls: (3) Closed type II fracture of odontoid process: (4) Laceration of scalp: QUALIFIERS: Encounter type: subsequent encounter Qualified Code(s): S01.01XD - Laceration without foreign body of scalp, subsequent encounter (5) Closed head injury: QUALIFIERS: Encounter type: subsequent encounter Qualified Code(s): S09.90XD - Unspecified injury of head, subsequent encounter (6) Hypothyroid: QUALIFIERS: Hypothyroidism type: acquired Qualified Code(s): E03.9 - Hypothyroidism, unspecified (7) Elevated TSH: (8) Concussion: QUALIFIERS: Encounter type: subsequent encounter Loss of consciousness presence/duration: without LOC Qualified Code(s): S06.0X0D - Concussion without loss of consciousness, subsequent encounter (9) Nausea and vomiting: QUALIFIERS: Vomiting type: unspecified Qualified Code(s): R11.2 -Nausea with vomiting, unspecified (10) Heme positive stool: (11) HTN (hypertension): QUALIFIERS: Hypertension type: unspecified Qualified Code(s): I10- Essential (primary) hypertension PLAN: Plan 1. Continue therapy 2. Add Coreg 3.125 mg twice daily to the current drug regimen which consists oflisinopril 20 mg daily. Continue as needed hydralazine. 3. straight cath for a UA today. 4. She is agreeable to a new sleep study. She has not had a sleep study for many years and she has never had a CPAP machine. Not clear to me why she is having nausea. Stool is heme + despite Famotidine and Protonix which she was on at admission to the hospital. May need to have endoscopy as an OP. for now will continue the PRN Zofran. Lipase was normal and she has had a cholecystectomy in the past. Both donepezil and Myrbetriq cancause nausea. Prozac also causes nausea and 12 to 29% of patients. Gemtesa wasstarted because the pharmacy does not have Myrbetriq and Gemtesa can also cause nausea. Will hold the donepezil for a few days and decrease the Prozac to 30 mgdaily to see if that helps with the nausea. Continue as needed Zofran. The STOP BANG score is 5 for age greater than 50, hypertension, loud snoring, she has been observed to stop breathing when she is sleeping, and she feels chronically tired and sleepy during the daytime. She sometimes takes a few napsa day. She falls asleep every night watching television and leaves the television on all night. Memory is poor and she does not sleep well through the night. She sometimes has restless legs. she has fallen asleep driving in the past. Charges/Coding Visit Charges Inpatient E&M: 74208 Subs Hosp L2 08/29/23 1739 <Electronically signed by Marina Gotti DO> Marina Gotti DO Cosigner Signature (if applicable): CC: ~ Signed [facility] Work Phone: 1(229) 546-384204-19-2024 Progress note Author Marina Frankkirby [facility] August 26, 2023 3:42pm Note Date/Time August 26, 2023 10: 52am [facility] Medical Records Department [address] [place] [address] Progress Note 08/26/23 1049 MR#: [id number] Acct: [id number] Name: GEORGINA SEGURA Rep #:[id number] : 1945 78 From: Marina Gotti DO PCP: Dr. Dinah Melgar MD Status:ADM I N Location: [place] [address] Subjective Subjective Afebrile VSS blood pressure at at bedtime was 108/66 and this morning the blood pressure is 152/82. She was started on scheduled lisinopril 20 mg daily yesterday. Orthostatics are Positive however the MAP even with standing range from 98 standing to 113 lying down so she is asymptomatic at this time. In suspect the orthostasis is due to dehydration and not due to the Lisinopril Maintaining appropriate oxygen saturation on RA Oral intake - FOOD good FLUIDS poor Incontinent of urine. Having regular bowel movements. Continent of stool. Weight is down 5 pounds since 08/20/2023-suspect secondary to dehydration. Discussed with nursing - no problems that need addressed Reviewed the THERAPY notes Medication list reviewed. Denies lightheadedness. She is appropriate. Tells me that she slept very well last night....first time in several days. Appetite is good. Her only complaintto me is pain in the neck. Denies radicular pain into the arms or the legs. Denies numbness in the arms and legs. We discussed that the [place] collar needsto stay on until the fracture is healed to keep the odontoid from displacing. She understands. We also discussed her fluid intake. I suspect the dehydrationcontributes significantly to the falls. She will drink water we I offer it to her and nursing and therapy are also going to start offering water. She may need to set alarms on her phone to remind her to drink some water during the day. Denies CP, SOB, cough, N/V/abd pain, dysuria and calf tenderness. Objective Data Objective Data Vital Signs: Vital Signs Temp Pulse Resp BP Pulse Ox O2 Del Method O2 Flow Rate 98.0 F 84 18 152/82 H 93 Room Air 18 08/26/23 08:32 08/26/23 08:32 08/26/23 08:32 08/26/23 08:32 08/26/23 08:32 08/26/23 08:32 08/25/23 21:14 FiO2 21 08/25/23 21:14 Oxygen Flow Rate (L/min) 18 Oxygen Delivery Method Room Air Weight: 190 lb 11.198 oz Body Mass Index (BMI) 33.7 Intake & Output: Intake and Output for Last 24 Hours 08/24/23 08/25/23 08/26/23 23:59 23:59 23:59 Intake Total 860 / 860 340 / 340 240 / 240 Output Total 440 / 440 550 / 550 Balance 420 / 420 -210 / -210 240 / 240 Lab / Micro Data 08/24/23 05:35 08/24/23 05:35 Micro: Microbiology 08/24/23 13:37 Stool Stool Occult Blood (STEFANY) - Final Occult Blood Positive Physical Exam Const alert and no apparent distress General Appearance: cooperative HEENT normocephalic, hearing grossly normal bilaterally, external ears normal and external nose normal HEENT Narrative: MM are very dry. She did drink some water for me prior to me leaving the room. Eyes PERRL, EOMs intact bilaterally, conjunctivae normal and no scleral icterus Eyes Narrative: No discharge from the eyes. Neck Neck Narrative: [place] cervical collar is in place. Chest Chest Narrative: She has some pain with palpation over the distal manubrium and the xiphoid. No bruising, erythema or opening in the skin. Chest: symmetrical chest wall rise Resp normal respiratory effort, normal air movement and clear to auscultation bilaterally Effort and Inspection: able to speak in complete sentences; Negative for tachypneic or respiratory distress Cardio regular rate, regular rhythm and no gallops Cardio Narrative: No ectopy GI normal to inspection, nondistended, normoactive bowel sounds, soft to palpation and non-tender GI Narrative: No guarding with palpation. Not tympanic. Denies feeling bloated. Had some nausea this AM.......states she threw up however nursing reports it was primarily spit in the emesis bag. Stool is heme +. Will need to enquire if wade ever had an EGD or a colonoscopy. no CVA tenderness Back/Spine straight leg raise negative bilaterally Back/Spine Narrative: No pain with palpation or percussion over the vertebrae. No abrasions on the back. Extremity no calf tenderness Extremity Narrative: mild pitting edema over the distal anterior tibia BL General Extremity: Negative for edema Skin Skin Narrative: Laceration is intact with no dehiscence, no purulent DC and no gina-incisional erythema. General Skin Exam: no breakdown Rashes: no rashes Neuro oriented x3, CN's II-XII intact bilaterally, moves all extremities and no focal motor deficits Psych cooperative, affect normal, denies hallucinations, denies homicidal ideation anddenies suicidal ideation Appearance: grossly normal and appropriate Attitude: calm and engaged Activity / Motor Behavior: appropriate eye contact; Negative for psychomotor agitation Speech: normal speech Assessment & Plan Assessment/Plan (1) Debility: (2) Frequent falls: (3) Closed type II fracture of odontoid process: (4) Laceration of scalp: QUALIFIERS: Encounter type: subsequent encounter Qualified Code(s): S01.01XD - Laceration without foreign body of scalp, subsequent encounter (5) Closed head injury: QUALIFIERS: Encounter type: subsequent encounter Qualified Code(s): S09.90XD - Unspecified injury of head, subsequent encounter (6) Hypothyroid: QUALIFIERS: Hypothyroidism type: acquired Qualified Code(s): E03.9 - Hypothyroidism, unspecified (7) Elevated TSH: (8) Concussion: QUALIFIERS: Encounter type: subsequent encounter Loss of consciousness presence/duration: without LOC Qualified Code(s): S06.0X0D - Concussion without loss of consciousness, subsequent encounter (9) Nausea and vomiting: QUALIFIERS: Vomiting type: unspecified Qualified Code(s): R11.2 -Nausea with vomiting, unspecified (10) Heme positive stool: (11) HTN (hypertension): QUALIFIERS: Hypertension type: unspecified Qualified Code(s): I10- Essential (primary) hypertension PLAN: Plan 1. Continue therapy 2. Recheck a BMP on Tuesday 3. Continue lisinopril and as needed hydralazine 4. encouraged her to increase her fluid intake to prevent falls going forward 5. Remove radha on Tuesday 6. Apply O2 at night for hypoxemia due to NAYA with non-compliance with CPAP dueto claustrophobia. 30% of the time her pulse ox was Less than 90% No signifcant bradycardia or tachycardia during the time she was monitored last night. Charges/Coding Visit Charges Inpatient E&M: 07087 Subs Hosp L1 08/26/23 4114 <Electronically signed by Marina Gotti DO> Marina Gotti DO Cosigner Signature (if applicable): CC: ~ Signed [facility] Work Phone: 1(138) 678-210904-18-2024 Progress note Author Marina Gotti [facility] August 25, 2023 2:14pm Note Date/Time August 25, 2023 2:1 4[facility] Medical Records Department [address] [place] [address] Progress Note 08/25/23 1402 MR#: [id number] Acct: [id number] Name: GEORGINA SEGURA Rep #:[id number] : 1945 78 From: Marina Gotti DO PCP: Dr. Dinah Melgar MD Status:ADM I N Location: [place] [address] Subjective Subjective Afebrile VSS - BP's remain elevated, both systolic and diastolic. HR is in the 80's Maintaining appropriate oxygen saturation on RA Oral intake - FOOD good FLUIDS poor Discussed with nursing - no problems that need addressed Reviewed the THERAPY notes Medication list reviewed. Objective Data Objective Data Vital Signs: Vital Signs Temp Pulse Resp BP Pulse Ox O2 Del Method O2 Flow Rate 98.1 F 88 17 147/79 H 96 Room Air 2 08/25/23 08:55 08/25/23 13:40 08/25/23 08:55 08/25/23 13:40 08/25/23 08:55 08/25/23 08:55 08/24/23 13:26 Oxygen Flow Rate (L/min) 2 Oxygen Delivery Method Room Air Weight: 192 lb 3.889 oz Body Mass Index (BMI) 34.0 Intake & Output: Intake and Output for Last 24 Hours 08/23/23 08/24/23 08/25/23 23:59 23:59 23:59 Intake Total 350 / 350 860 / 860 340 / 340 Output Total 440 / 440 450 / 450 Balance 350 / 350 420 / 420 -110 / -110 Lab / Micro Data 08/24/23 05:35 08/24/23 05:35 Micro: Microbiology 08/24/23 13:37 Stool Stool Occult Blood (STEFANY) - Final Occult Blood Positive Physical Exam Const alert, oriented x3 and no apparent distress General Appearance: cooperative Resp normal respiratory effort, normal air movement and clear to auscultation bilaterally Effort and Inspection: able to speak in complete sentences; Negative for tachypneic or respiratory distress Cardio regular rate, regular rhythm, S1 normal heart sound, S2 normal heart sound, no murmurs, no rub and no gallops Cardio Narrative: No ectopy GI normal to inspection, nondistended, normoactive bowel sounds, soft to palpation and non-tender GI Narrative: No guarding with palpation. Not tympanic. Denies feeling bloated. Had some nausea this AM.......states she threw up however nursing reports it was primarily spit in the emesis bag. Stool is heme +. Will need to enquire if crystalhas ever had an EGD or a colonoscopy. Extremity Extremity Narrative: mild pitting edema over the distal anterior tibia BL Skin Skin Narrative: Laceration is intact with no dehiscence, no purulent DC and no gina-incisional erythema. General Skin Exam: no breakdown Rashes: no rashes Assessment & Plan Assessment/Plan (1) Debility: (2) Frequent falls: PLAN: I suspect she is chronically dehydrated and orthostasis contributes to thefalls. (3) Closed type II fracture of odontoid process: PLAN: acute fracture with another subacute fracture. (4) Laceration of scalp: QUALIFIERS: Encounter type: subsequent encounter Qualified Code(s): S01.01XD - Laceration without foreign body of scalp, subsequent encounter (5) Closed head injury: QUALIFIERS: Encounter type: subsequent encounter Qualified Code(s): S09.90XD - Unspecified injury of head, subsequent encounter (6) Hypothyroid: QUALIFIERS: Hypothyroidism type: acquired Qualified Code(s): E03.9 - Hypothyroidism, unspecified (7) Elevated TSH: PLAN: TSH is 10.6. Thyroid supplement increased (8) Concussion: QUALIFIERS: Encounter type: subsequent encounter Loss of consciousness presence/duration: without LOC Qualified Code(s): S06.0X0D - Concussion without loss of consciousness, subsequent encounter (9) Nausea and vomiting: QUALIFIERS: Vomiting type: unspecified Qualified Code(s): R11.2 -Nausea with vomiting, unspecified (10) Heme positive stool: (11) HTN (hypertension): QUALIFIERS: Hypertension type: unspecified Qualified Code(s): I10- Essential (primary) hypertension PLAN: Not on an antihypertensive prior to the recent fall. PLAN: Plan 1. Continue therapy 2. Add lisinopril 20 mg daily to the current drug regimen. Start today. 3. accurate I&O and encourage increased fluid intake. 4. BMP and orthostatics on Tuesday. 5. Obtain a med list and a problem list from PCP and also the results of any endoscopic procedures she has had in the past. Charges/Coding Visit Charges Inpatient E&M: 01313 Subs Hosp L1 08/25/23 1414 <Electronically signed by Marina Gotti DO> Marina Gotti DO Cosigner Signature (if applicable): CC: ~ Signed [facility] Work Phone: 1(938) 345-359804-18-2024 History and physical note Author Marina Frankkirby [facility] August 25, 2023 2:00pm Note Date/Time August 25, 2023 2:[address] [facility] Medical Records Department [address] [place] [address] Post Admission Physician Eval 08/25/23 1353 MR#: [id number] Acct: [id number] Name: GEORGINA SEGURA Rep #:[id number] : 1945 78 From: Marina Gotti DO PCP: Dr. Dinah Melgar MD Status:ADM I N Location: [place] [address] Admission Information Primary Diagnosis:: Debility due to a fall with fracture of the odontoid and mild TBI Status Changes from Prescreening?: No changes Identified Actual Problem List:: Falls, Pain, ALteration in Cmfrt, Cognitve Impr/Memory Loss, Depression, Bladder Incontinence, Bowel, Constipation, Mobility Impaired, Self Care Deficit, BP, Hypertension, Fluid Change-Dehydration and Alteration-Leisure Activ. Potential Problem List:: DVT, Bleeding, Infection, UTI, Aspiration, Falls, Skin Integrity and Depression Risk of Complications DVT: DYLON Hose and - (ambulation) Bleeding: Monitor Lab Values, Nursing to Teach Precautions for anti-coagulation therapy., Wound, if applicable, to be assessed every shift. and Stroke patients assessed for lethargy or change in status. Infection: Clinical Staff to Monitor for S/S of infection: and S/S of infection include fever, redness, warmth, etc. Urinary Tract Infection: Monitor for frequency, burning, discomfort, or incontinence. and Nursing will obtain urine sample for urinalysis and C&S when ordered. Aspiration: Clinical staff will monitor for coughing, drooling, congestion., Speech will evaluate swallowing and dsyphasia. and Nursing will monitor patient swallowing during meals. Falls: Patient will be evaluated for Fall Precautions and Patient will be placedon Fall Precautions as indicated per protocol. Skin Breakdown: Nursing will assess skin daily using assessment tool. and Nursing will place on Skin Breakdown Precautions as indicated. Pain: Clinical staff will assess patient's pain level per protocol., Medicationswill be given, if needed, and the pain level reassessed. and Other methods: Massage, distraction, decrease stimulus, etc. used PRN. Plan of Care Patient requires physician specializing in physical medicine and rehab oversightto provide close medical supervision of rehab issues including: Pain Management,Sleep Problems, Bowel and Bladder, Medical and co-morbidity Management, DVT prophylaxis, Rehabilitation Leadership and Coordination of treatment team Patient needs Physical Therapy: For a minimum of 1 hour and At least 5 out of 7 days Patient needs Physical Therapy to improve:: Mobility, Strengthening, Transfers, Stretching, ROM, Endurance, Stairs, Gait and Balance Patient needs Occupational Therapy: For a minimum of 1 hour and At least 5 out of 7 days Patient needs Occupational Therapy to improve ADL's incl.: Eating, Grooming, Bathing, Dressing, Toileting, Toilet transfers, Community Reintegration, Higher functioning activities, Household tasks, Adaptive Equipment, Splinting and Otheractivities as determined Patient requires speech therapy: For a minimum of 1 hour and At least 5 out of 7days Patient requires speech therapy for: Swallowing, Cognition, Language Skills and Compensatory Strategies Patient requires 24/7 Rehabilitation Nursing for: Pain Issues, Identifying and preventing risk factors, Monitoring and reporting current medical conditions, Assisting with ambulation, transfer, and all ADL's, Teaching patients about disease process and medications, Family teaching, Providing safe environment, Bowel and Bladder Issues, Skin integrity and Medication Management Patient needs Medical Doctor/ Case Management for: Discharge Planning, Arranging Home Equipment or Services and Family Interventions Patient needs Dietary and Nutrition Services for: Adequate Nutrition, Nutritional Supplements and Nutritional Education Goals Goals Patient will remain: free from falls Patient will perform eating at: MOD I level of assist. Patient will perform bed mobility at: MOD I level of assist. Patient will complete transfers from bed to chair at: MOD I level of assist. Patient will ambulate: - (200 feet with least restrictive device at mod I on various surfaces) Patient will complete upper body dressing at: MOD I level of assist. Patient will complete lower body dressing at: MOD I level of assist. (With adaptive equipment as needed for increased independence) Patient will complete toilet transfer at: MOD I level of assist. Patient will complete toileting at: MOD I level of assist. Patient will perform bathing at: MOD I level of assist. (Upper body bathing independently and lower body bathing at mod I with adaptive equipment as needed for increased independence with self-care.) Patient will perform Tub/Shower transfer at: - (Supervision) Patient will complete grooming at: MOD I level of assist. (While standing at thesink) Patient will achieve: - (2 steps with 1-2 handrails and least restrictive deviceat standby assist to allow access to her home) Discharge Planning Pt Prognosis for Sig. Practical Improv. w/in Reasonable Time: Good Estimated Length of stay (days): 21 Anticipated D/C Destination: Home with Outpt Therapy Was Preadmission Assessment Accurate?: Yes 08/25/23 1400 <Electronically signed by Marina Gotti DO> Cosigner Signature (if applicable): CC: ~ Signed [facility] Work Phone: [phone] History and physical note Author Marina [facility] August 25, 2023 1:53pm Note Date/Time August 24, 2023 10: 26am [facility] Medical Records Department [address] [place] [id number] History & Physical Exam 08/24/23 1021 MR#: [id number] Acct: [id number] Name: GEORGINA SEGURA Rep #:[id number] : 1945 78 From: Marina Gotti DO PCP: Dr. Dinah Melgar MD Status:ADM I N Location: [place] [address] HPI - General General Date of Admission: 08/23/23 Date of Service: 08/24/23 Chief Complaint: Debility due to fall with fx of odontoid. HPI Narrative GEORGINA SEGURA, is a 78 YO F with a past medical history of asthma, osteoarthritis, dementia without behavioral disturbance, chronic depression, GERD, history of a skull fracture in February 2023 secondary to fall, hyperlipidemia, hypothyroidism, chronic tremors of the right upper extremity, chronic rhinitis, chronic nausea/vomiting Was on Meloxicam at home prior to to the most recent fall, irritable bowel syndrome, neurogenic bladder, sleep apnea (noncompliant with CPAP due to claustrophobia) and urinary incontinence who presented to the emergency department at [facility] on 4after a fall at home. She has a history of frequent falls and in fact had a fall 2-3 weeks prior to the ED visit and had neck pain but, she did not seek medical attention for it. She complained of headache at presentation to the ED denied she had loss of consciousness. On physical examination cranial nerves IIthrough XII are grossly intact and she had no focal neurologic deficits. Noncontrast brain CT showed no acute intracranial abnormalities. CT scan of thecervical spine showed an acute pathologic type II odontoid fracture noted to extend through a 16 mm subchondral bone cyst. 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 She had prominent spondylosis with multilevel spinal and neuroforaminal stenoses. Lab was significant for acute renal failurewith a creatinine of 1.38 and a BUN of 29. She had 4 radha to close a laceration in the occipital area and she was transferred to [facility]. She did not require surgery. The cervical spine was immobilizedwith a cervical collar. She was seen by PT/OT and acute inpt rehab was recommended at [place] from [facility]. She was transferred to the acute inpt rehab unit at [facility] on 08/23/23 for 3 hours of therapy daily to restore function at or near her level prior to the fall/fracture. Afebrile Blood pressure since arrival on rehab has ranged from 166/95 to 182/93. Heart rate is within normal limits. All lab drawn this AM was personally reviewed. CBC is unremarkable. Sodium is within normal limits and the potassium is 3.9. The BUN is down to 11 with a creatinine of 1.02, down from 1.38 at presentation to the emergency department on 08/20/2023. GFR is 55 which is consistent with stage IIIa chronic renal failure. Fasting blood sugar today is elevated at 123. Phosphorus and magnesium are within normal limits. LFTs are unremarkable. She lives alone and required assistance with cleaning, laundry, meals, shopping and transportation. Reportedly independent with ADLs (later said children assist with ADL's) and mobility. Uses a walker or cane when outside her home. Georgina admits that she does not drink enough during the day. She tells me that when she stands up from bed in the AM she feels lightheaded and she tries to stand there for a few minutes prior to walking. I spoke with her dtr Jaqueline and she tells me that the N/V were under control with Protonix in the AM and Famotidine at night unless she was constipated. She doesnot take enemas very often at all. Georgina denies any recent wt loss. She has never had an ulcer and she denies any hx of DVT. Her legs swell at the end of the day but, in the AM the swelling is gone. They used to swell when she was working. She worked in a [employer] and after that she worked at [employer] so she did a lot of standing. She still drives in the community for short distances. She denies any hx of HTN. [facility] Medical History (Updated 08/25/23 @ 13:[address] Marina Gotti, ) Ambulates with cane Arthritis Asthma Back pain CPAP (continuous positive airway pressure) dependence Dehydration Dementia Depression Easy bruising GERD (gastroesophageal reflux disease) High cholesterol History of pain when walking Hypothyroid Injury of head and neck Loss of hearing Neurogenic bladder Non-smoker Noncompliance with CPAP treatment Overactive bladder PONV (postoperative nausea and vomiting) Post-menopausal Venous insufficiency (chronic) (peripheral) Wears glasses Home Medications donepezil 10 mg tablet 10 mg PO DAILY MEMORY 06/11/22 [History Last Taken 08/22/23] famotidine 40 mg tablet 40 mg PO QHS GERD 06/11/22 [History Last Taken Unknown] fluoxetine 40 mg capsule 40 mg PO DAILY DEPRESSION 06/11/22 [History Last Taken 08/23/23] levothyroxine 25 mcg tablet (Synthroid) 25 mcg PO DAILY THYROID 06/11/22 [History Last Taken 08/23/23] mirabegron 50 mg tablet,extended release 24 hr (Myrbetriq) 50 mg PO DAILY OAB 06/11/22 [History Last Taken Unknown] pantoprazole 40 mg granules delayed-release for susp in packet 40 mg PO DAILY GERD 06/11/22 [History Last Taken 08/23/23] ezetimibe 10 mg tablet 10 mg PO DAILY cholestorol 03/28/23 [History Last Taken 08/23/23] oxybutynin chloride 10 mg tablet,extended release 24 hr 10 mg PO DAILY OAB 08/20/23 [History Last Taken Unknown] albuterol sulfate 90 mcg/actuation aerosol inhaler 2 inh inhalation Q4H PRN SOB,Wheezing 08/23/23 [History Last Taken Unknown] tramadol 50 mg tablet 50 mg PO Q6H PRN pain 08/23/23 [History Last Taken Unknown] Allergy/AdvReac Type Severity Reaction Status Date / Time rofecoxib [From Vioxx] Allergy Unknown Verified 03/28/23 14:51 Family History unable to obtain Surgical History H/O lateral meniscus repair of right knee History of appendectomy History of bladder surgery History of cholecystectomy History of partial hysterectomy Hx of surgical biopsy Social History housing: house Smoking Status: Never smoker substance use type: does not use ROS Review of Systems ROS Unobtainable: Denies due to encephalopathy, due to endotracheal tube, due tomental condition or due to mental status Constitutional Constitutional: Reports change in weight and weight gain; Denies anorexia, chills, fatigue, fever(s), night sweats or weakness Eyes Eyes: Reports dry eyes; Denies blurry vision, change in vision, eye pain, itchy eyes or loss of vision ENT HEENT: Reports nasal congestion and other Details: Dry mouth ; Denies abnormal hearing, dysphagia, headache(s), hearing loss, sore throat or vertigo Cardiovascular Cardiovascular: Reports chest pain, edema, lightheadedness and other Details: Chest pain is located over the inferior portion of the manubrium and the xiphoid. ; Denies dyspnea on exertion, irregular heart rhythm, orthopnea, palpitations, paroxysmal nocturnal dyspnea or syncope Respiratory/Chest Respiratory/Chest: Denies cough, dyspnea, shortness of breath at rest, shortnessof breath with exertion or wheezing Gastrointestinal Gastrointestinal: Reports bloating, constipation, nausea, vomiting and other Details: When she vomits it is chunks......looks like undigested food. ; Denies abdominal pain, diarrhea, dyspepsia, hematemesis or hematochezia Genitourinary Genitourinary: Reports urinary incontinence and urinary urgency; Denies dysuria,hematuria, nocturia, urinary frequency or urinary hesitancy Musculoskeletal Musculoskeletal: Reports joint pain, neck pain and tremors; Denies back pain or joint swelling Integumentary Integumentary: Reports dry skin; Denies alopecia, bleeding lesions, hirsutism orjaundice Neurologic Neurologic: Reports memory loss and tremor(s); Denies behavior changes, confusion, disequilibrium, dizziness, focal weakness, headache(s), paresthesias,radicular pain or seizures Psychiatric Psychiatric: Reports depression and other Details: Was having some hallucinations when taking narcotics at the previous hospital. ; Denies anxiety, homicidal ideation or suicidal ideation Endocrine Endocrinology: Denies change in body appearance, polydipsia or polyuria Hematologic/Lymphatic Hematologic/Lymphatic: Denies easy bleeding, easy bruising or lymphadenopathy Allergic/Immunologic Allergic/Immunologic: Reports seasonal rhinorrhea and rhinitis; Denies itchy eyes, tongue swelling, hives, eczemia or asthma Vital Signs Vital Signs Vital Signs: 08/23/23 16:39 08/23/23 16:31 08/23/23 17:13 Temperature 98.7 F Temperature Source Temporal Pulse Rate 82 88 Pulse Rate [Lying] 82 Pulse Rate [Sitting (for 1 minute prior to obtaining)] 90 Pulse Rate [Standing (for 1 minute prior to obtaining)] 101 H Respiratory Rate 17 Respiratory Effort Respiratory Depth Respiratory Pattern Blood Pressure 177/92 H 151/87 H Blood Pressure [Lying] 177/92 H Blood Pressure [Sitting (for 1 minute prior to obtaining)] 179/98 H Blood Pressure [Standing (for 1 minute prior to obtaining)] 181/113 H Blood Pressure Mean 120 108 Blood Pressure Mean [Lying] 120 Blood Pressure Mean [Sitting (for 1 minute prior to obtaining)] 125 Blood Pressure Mean [Standing (for 1 minute prior to obtaining)] 135 Blood Pressure Source Monitor Monitor Blood Pressure Position Supine Semi-Fowlers Blood Pressure Location Left Arm Right Arm Pulse Ox 96 Oxygen Delivery Method Room Air Oxygen Flow Rate (L/min) 08/23/23 21:16 08/23/23 21:18 08/23/23 22:00 Temperature 98.3 F Temperature Source Temporal Pulse Rate 93 93 93 Pulse Rate [Lying] Pulse Rate [Sitting (for 1 minute prior to obtaining)] Pulse Rate [Standing (for 1 minute prior to obtaining)] Respiratory Rate 16 15 Respiratory Effort Normal Non-Labored Respiratory Depth Normal Respiratory Pattern Normal Blood Pressure 166/95 H 166/95 H Blood Pressure [Lying] Blood Pressure [Sitting (for 1 minute prior to obtaining)] Blood Pressure [Standing (for 1 minute prior to obtaining)] Blood Pressure Mean 118 Blood Pressure Mean [Lying] Blood Pressure Mean [Sitting (for 1 minute prior to obtaining)] Blood Pressure Mean [Standing (for 1 minute prior to obtaining)] Blood Pressure Source Blood Pressure Position Semi-Fowlers Blood Pressure Location Right Arm Pulse Ox 94 94 Oxygen Delivery Method Room Air Room Air Oxygen Flow Rate (L/min) 08/24/23 05:12 08/24/23 07:46 08/24/23 07:47 Temperature 98.0 F Temperature Source Temporal Pulse Rate 88 88 Pulse Rate [Lying] Pulse Rate [Sitting (for 1 minute prior to obtaining)] Pulse Rate [Standing (for 1 minute prior to obtaining)] Respiratory Rate 15 Respiratory Effort Respiratory Depth Respiratory Pattern Blood Pressure 180/95 H 182/93 H Blood Pressure [Lying] Blood Pressure [Sitting (for 1 minute prior to obtaining)] Blood Pressure [Standing (for 1 minute prior to obtaining)] Blood Pressure Mean 122 Blood Pressure Mean [Lying] Blood Pressure Mean [Sitting (for 1 minute prior to obtaining)] Blood Pressure Mean [Standing (for 1 minute prior to obtaining)] Blood Pressure Source Blood Pressure Position Semi-Fowlers Blood Pressure Location Right Arm Pulse Ox 96 Oxygen Delivery Method Room Air Oxygen Flow Rate (L/min) 2 08/24/23 06:00 Temperature Temperature Source Pulse Rate Pulse Rate [Lying] 88 Pulse Rate [Sitting (for 1 minute prior to obtaining)] 84 Pulse Rate [Standing (for 1 minute prior to obtaining)] 93 Respiratory Rate Respiratory Effort Respiratory Depth Respiratory Pattern Blood Pressure Blood Pressure [Lying] 177/98 H Blood Pressure [Sitting (for 1 minute prior to obtaining)] 182/93 H Blood Pressure [Standing (for 1 minute prior to obtaining)] 177/94 H Blood Pressure Mean Blood Pressure Mean [Lying] 124 Blood Pressure Mean [Sitting (for 1 minute prior to obtaining)] 122 Blood Pressure Mean [Standing (for 1 minute prior to obtaining)] 121 Blood Pressure Source Blood Pressure Position Blood Pressure Location Pulse Ox Oxygen Delivery Method Oxygen Flow Rate (L/min) Weight Weight: 192 lb 3.889 oz Body Mass Index (BMI) 34.0 Physical Exam Const alert, oriented x3 and no apparent distress General Appearance: cooperative and well kempt HEENT normocephalic, hearing grossly normal bilaterally, external ears normal and external nose normal HEENT Narrative: Dry mucous membranes. Has a laceration over the occiput. No dehiscence. No DC Eyes PERRL, EOMs intact bilaterally, conjunctivae normal and no scleral icterus Eyes Narrative: No discharge from the eyes. Neck Neck Narrative: [place] cervical collar is in place. Chest Chest Narrative: She has some pain with palpation over the distal manubrium and the xiphoid. No bruising, erythema or opening in the skin. Chest: symmetrical chest wall rise Resp normal respiratory effort, normal air movement and clear to auscultation bilaterally Effort and Inspection: able to speak in complete sentences; Negative for tachypneic or respiratory distress Cardio regular rate, regular rhythm, S1 normal heart sound, S2 normal heart sound, no murmurs, no rub and no gallops Cardio Narrative: No ectopy GI GI Narrative: Feels bloated. No pain with palpation in the epigastric area. Low frequency BS's. No guarding with palpation. Soft. Not ayush tympanic. no CVA tenderness Back/Spine straight leg raise negative bilaterally Back/Spine Narrative: No pain with palpation or percussion over the vertebrae. No abrasions on the back. Extremity Extremity Narrative: mild pitting edema over the distal anterior tibia BL Skin Skin Narrative: Laceration is intact with no dehiscence, no purulent DC and no gina-incisional erythema. General Skin Exam: no breakdown Rashes: no rashes Neuro oriented x3, CN's II-XII intact bilaterally, moves all extremities and no focal motor deficits Psych cooperative, affect normal, denies hallucinations, denies homicidal ideation anddenies suicidal ideation Appearance: grossly normal and appropriate Attitude: calm and engaged Activity / Motor Behavior: appropriate eye contact; Negative for psychomotor agitation Speech: normal speech Results Lab / Micro Data 08/24/23 05:35 08/24/23 05:35 Labs: Laboratory Results - last 24 hr 08/24/23 05:35: WBC 6.4, RBC 4.67, Hgb 13.7, Hct 42.3, MCV 90.6, MCH 29.3, MCHC 32.4, RDW Std Deviation 41.7, RDW Coeff of Dionne 12.7, Plt Count 274, MPV 9.5, Immature Gran % (Auto) 0.500, Neut % (Auto) 56.6, Lymph % (Auto) 30.2, [place] % (Auto) 9.6, Eos % (Auto) 2.6, Baso % (Auto) 0.5, Absolute Neuts (auto) 3.6, Absolute Lymphs (auto) 1.94, Nucleated RBC % 0, Sodium 137, Potassium 3.9, Chloride 100, Carbon Dioxide 30.0, Anion Gap 7, BUN 11, Creatinine 1.02, Estim Creat Clear Calc 46.06, Est GFR (MDRD) Af Amer 67, Est GFR (MDRD) Non-Af 55 L, BUN/Creatinine Ratio 10.8, Glucose 123 H, Calcium 9.1, Phosphorus 4.3, Magnesium2.3, Total Bilirubin 0.40, AST 22, ALT 22, Alkaline Phosphatase 118 H, Total Protein 6.9, Albumin 3.4, Globulin 3.5, Albumin/Globulin Ratio 1.0 Assessment & Plan Assessment/Plan (1) Debility: (2) Frequent falls: PLAN: I suspect she is chronically dehydrated and orthostasis contributes to thefalls. (3) Closed type II fracture of odontoid process: PLAN: acute fracture with another subacute fracture. (4) Laceration of scalp: QUALIFIERS: Encounter type: subsequent encounter Qualified Code(s): S01.01XD - Laceration without foreign body of scalp, subsequent encounter (5) Closed head injury: QUALIFIERS: Encounter type: subsequent encounter Qualified Code(s): S09.90XD - Unspecified injury of head, subsequent encounter (6) Hypothyroid: QUALIFIERS: Hypothyroidism type: acquired Qualified Code(s): E03.9 - Hypothyroidism, unspecified (7) Elevated TSH: PLAN: TSH is 10.6. Thyroid supplement increased (8) Concussion: QUALIFIERS: Encounter type: subsequent encounter Loss of consciousness presence/duration: without LOC Qualified Code(s): S06.0X0D - Concussion without loss of consciousness, subsequent encounter (9) Acute renal insufficiency: PLAN: Resolved with hydration (10) Dementia: QUALIFIERS: Dementia type: unspecified type Dementia severity: moderate Dementia behavioral or psychological symptom: without behavioral, psychotic, or mood disturbance or anxiety Qualified Code(s): F03.B0 - Unspecified dementia, moderate, without behavioral disturbance, psychotic disturbance, mood disturbance, and anxiety (11) Depression: QUALIFIERS: Depression Type: unspecified Qualified Code(s): F32.A- Depression, unspecified (12) Nausea and vomiting: QUALIFIERS: Vomiting type: unspecified Qualified Code(s): R11.2 -Nausea with vomiting, unspecified (13) Glucose intolerance (impaired glucose tolerance): PLAN: HGBA1C is 5.7. Has a dtr with DM II. (14) Noncompliance with CPAP treatment: PLAN: Due to claustrophobia. Does not have oxygen at home. (15) Heme positive stool: PLAN: Plan PLAN PT for gait stability OT for ADL's ST for evaluation Analgesics as needed Bowel protocol Fall precautions Assess for Anxiety/Depression GI prophylaxis -continue Protonix in the a.m. and famotidine at at bedtime DVT prophylaxis with DYLON odell and ambulation Follow up with Dr. Melgar and neurosurgery following DC from Rehab AM lab including CMP, CBC, Mag and Phos -personally reviewed TSH, hemoglobin A1c, lipase Avoid antihistamines due to the potential for confusion and increased falls. Start Atrovent nasal spray 2 sprays each nostril once daily. Schedule Tylenol 1 g p.o. every 8 hours and tramadol 50 mg p.o. 3 times daily. Wean later this week Increase the hydralazine to 25 mg Q4H PRN systolic >160 or diastolic >85. If the BP's remain elevated will start a scheduled antihypertensive. Encourage increased fluid intake. Remove radha in 7-10 days (today is day #4). Increase the Levothyroxine dose to 50 mcg/day - will need a repeat TSH in 4-6 weeks. Monitor I&O closely Overnight trending pulse ox. Charges/Coding Visit Charges Inpatient E&M: 64409 Init Hosp L2 08/25/23 1356 <Electronically signed by Marina Gotti DO> Cosigner Signature (if applicable): CC: Dr. Marina Gotti DO; Dr. Dinah Melgar MD~ Signed [facility] Work Phone: [phone] 132-629904-13-2024 Discharge summary Author Abelardo Reddy [facility] August 20, 2023 4:50pm Note Date/Time August 20, 2023 12: 38pm [facility] Medical Records Department [address] [place] [address] Emergency Department Summary 08/20/23 MR#: [id number] Acct: [id number] Name: GEORGINA SEGURA Rep #:[id number] : 1945 78 From: Quentin GOLD PCP: Dr. Dinah Melgar MD Status:REG E R Location: ED HPI <ASIF Whalen - Last Filed: 08/20/23 15:53> History of Present Illness Chief Complaint: Fall Narrative Narrative: Patient is an 78-year-old female with history of hypertension, hyperlipidemia, hypothyroidism, bladder spasms, right arm tremor who presents to the emergency department after mechanical fall. Patient states that she was sitting on the edge of a chair when she slipped off, falling backward striking her head on a corner of a wooden table. Patient was concerned because it was bleeding. Patient now has a headache, she denies any LOC, he is currently on any blood thinners. Patient's tetanus vaccine was within the last 5 years. [facility] <ASIF Whalen - Last Filed: 08/20/23 15:53> [facility] Medical History (Updated 08/20/23 @ 15:53 by ASIF Whalen) Ambulates with cane Arthritis Asthma Back pain CPAP (continuous positive airway pressure) dependence Depression Easy bruising GERD (gastroesophageal reflux disease) High cholesterol History of pain when walking Hypothyroid Injury of head and neck Loss of hearing Non-smoker Overactive bladder PONV (postoperative nausea and vomiting) Post-menopausal Wears glasses Home Medications donepezil 10 mg tablet 10 mg PO DAILY MEMORY 06/11/22 [History Last Taken Unknown] famotidine 40 mg tablet 40 mg PO QHS GERD 06/11/22 [History Last Taken Unknown] fluoxetine 40 mg capsule 40 mg PO DAILY DEPRESSION 06/11/22 [History Last Taken Unknown] levothyroxine 25 mcg tablet (Synthroid) 25 mcg PO DAILY THYROID 06/11/22 [History Last Taken 04/06/23] mirabegron 50 mg tablet,extended release 24 hr (Myrbetriq) 50 mg PO DAILY OAB 06/11/22 [History Last Taken Unknown] pantoprazole 40 mg granules delayed-release for susp in packet 40 mg PO DAILY 06/11/22 [History Last Taken 04/06/23] ezetimibe 10 mg tablet 10 mg PO DAILY 03/28/23 [History Last Taken Unknown] meloxicam 7.5 mg tablet 7.5 mg PO DAILY 08/20/23 [History Last Taken Unknown] oxybutynin chloride 10 mg tablet,extended release 24 hr 10 mg PO DAILY 08/20/23 [History Last Taken Unknown] Allergy/AdvReac Type Severity Reaction Status Date / Time rofecoxib [From Vioxx] Allergy Unknown Verified 03/28/23 14:51 Surgical History (Updated 03/28/23 @ 15:10 by Laya Thomas) H/O lateral meniscus repair of right knee History of appendectomy History of bladder surgery History of cholecystectomy History of partial hysterectomy Hx of surgical biopsy Social History Smoking Status: Never smoker substance use type: does not use ROS <ASIF Whalen - Last Filed: 08/20/23 15:53> ROS ED ROS Narrative Constitutional: Negative for fever, chills, weight loss, weakness Eyes: Negative for vision loss, vision change, double vision ENT: Negative for any sore throat, ear pain, congestion Cardiovascular: Negative for any chest pain, tightness, palpitations Respiratory: Negative for any cough, sputum production, hemoptysis, dyspnea, dyspnea on exertion, orthopnea Gastrointestinal: Negative for any abdominal pain, nausea, vomiting, diarrhea, constipation, blood in stool, blood in vomit : Negative for any urinary frequency, dysuria, retention, blood in urine Muscle skeletal: Negative for any neck pain, back pain Neurological: Negative for any syncope, dizziness. Positive for headache Skin: Negative for any rashes, itching, abrasions. Positive for scalp laceration Psychiatric: Negative for any depression, anxiety, stress, suicidal ideation, homicidal ideation Hematologic: Negative for any excessive bruising, easy bleeding EXAM <ASIF Whalen - Last Filed: 08/20/23 15:53> Physical Exam Narrative Exam Narrative: Vital signs reviewed. HEET: Head normocephalic atraumatic, TMs clear bilaterally. Posterior pharynx is clear, moist mucous membranes. Nares clear bilaterally. Pupils are equal round reactive to light, negative for any hemotympanum, negative for any septal hematoma. Patient does have a 2 cm vertical laceration to the occiput. This will need radha. Neck: Supple with no lymphadenopathy or tenderness. No signs of meningismus. Cardiac: Regular rate and rhythm no murmurs gallops or rubs, equal peripheral pulses bilaterally. Respiratory: Lungs clear to auscultation bilaterally. No chest tenderness. Abdomen: Soft, nontender, nondistended. No abdominal bruit or pulsatile masses. No hepatosplenomegaly Extremities: No peripheral edema, no signs of gross trauma or deformity. Activefull range of motion of all extremities. Neuro: Cranial nerves II through XII intact, no focal neurological deficits. Skin: Clean dry and intact with no rash, purpura, petechiae, vesicles or pustules. Backs/flank: No CVA tenderness, no midline spinal tenderness, no deformity. Psych: Normal mood and affect. No SI, HI or acute psychosis. Const Vital Signs: 08/20/23 12:20 08/20/23 12:25 08/20/23 14:19 Temperature 97.8 F Temperature Source Tympanic Pulse Rate 95 86 Respiratory Rate 26 H 17 Respiratory Effort Normal Non-Labored Respiratory Depth Normal Respiratory Pattern Normal Blood Pressure 148/88 H 152/90 H Blood Pressure Mean 108 110 Pulse Ox 93 98 Oxygen Delivery Method Room Air Room Air Room Air 08/20/23 16:00 08/20/23 16:34 Temperature 97.8 F Temperature Source Pulse Rate 93 80 Respiratory Rate 16 12 Respiratory Effort Respiratory Depth Respiratory Pattern Blood Pressure 154/90 H 173/101 H Blood Pressure Mean 111 125 Pulse Ox 97 97 Oxygen Delivery Method Room Air <Abelardo Reddy MD - Last Filed: 08/20/23 16:50> Physical Exam Const Vital Signs: 08/20/23 12:20 08/20/23 12:25 08/20/23 14:19 Temperature 97.8 F Temperature Source Tympanic Pulse Rate 95 86 Respiratory Rate 26 H 17 Respiratory Effort Normal Non-Labored Respiratory Depth Normal Respiratory Pattern Normal Blood Pressure 148/88 H 152/90 H Blood Pressure Mean 108 110 Pulse Ox 93 98 Oxygen Delivery Method Room Air Room Air Room Air 08/20/23 16:00 08/20/23 16:34 Temperature 97.8 F Temperature Source Pulse Rate 93 80 Respiratory Rate 16 12 Respiratory Effort Respiratory Depth Respiratory Pattern Blood Pressure 154/90 H 173/101 H Blood Pressure Mean 111 125 Pulse Ox 97 97 Oxygen Delivery Method Room Air [facility] <ASIF Whalen - Last Filed: 08/20/23 15:53> [facility] Lab Data Labs: Laboratory Results - last 24 hr 08/20/23 13:30 WBC 8.1 RBC 4.97 Hgb 14.6 Hct 45.8 MCV 92.2 MCH 29.4 MCHC 31.9 L RDW Std Deviation 43.3 RDW Coeff of Dionne 12.9 Plt Count 345 MPV 10.3 Immature Gran % (Auto) 0.600 Neut % (Auto) 57.7 Lymph % (Auto) 31.6 [place] % (Auto) 5.9 Eos % (Auto) 3.3 Baso % (Auto) 0.9 Absolute Neuts (auto) 4.7 Absolute Lymphs (auto) 2.55 Nucleated RBC % 0 PT 12.5 INR 0.9 Sodium 138 Potassium 3.8 Chloride 106 Carbon Dioxide 27.0 Anion Gap 5 BUN 29 H Creatinine 1.38 H Estim Creat Clear Calc 34.49 Est GFR (MDRD) Af Amer 47 L Est GFR (MDRD) Non-Af 39 L BUN/Creatinine Ratio 21.0 H Glucose 140 H Calcium 8.9 Radiography Diagnostic Testing: Clinical Impression(s) from Imaging Studies Brain CT 08/20/23 12:32 IMPRESSION: 1. No acute intracranial abnormality. 2. Stable chronic microvascular changes. Electronically Signed: Tyshawn Love MD at 14:17 EDT , Cervical Spine CT 08/20/23 12:32 IMPRESSION: 1. Acute pathologic type II odontoid fracture. 2. Findings suggestive of chronic odontoid fracture. 3. Prominent spondylosis with multilevel spinal and neural foraminal stenoses as described. N.B. : The above Results were Read Back by Tyshawn Love MD to Quentin Mckeon NP, and understanding confirmed on 08/20/2023 13:16:13 (ET). Electronically Signed: Tyshawn Love MD at 13:19 EDT , ADDENDUM: 08/20/23 1326 IMPRESSION: 1. Acute pathologic type II odontoid fracture. 2. Findings suggestive of chronic odontoid fracture. 3. Prominent spondylosis with multilevel spinal and neural foraminal stenoses as described. N.B. : The above Results were Read Back by Tyshawn Love MD to Quentin Mckeon NP, and understanding confirmed on 08/20/2023 13:16:13 (ET). Electronically Signed: Tyshawn Love MD at 13:19 EDT , Treatment and Re-Evaluation :: Differential diagnosis includes however is not limited to: Concussion, closed head injury, scalp laceration, skull fracture, intracranial bleeding Patient appears generally well, patient appears nontoxic, vital signs are stable. Presenting to the emergency department after mechanical fall, striking the back of her head on a table. Tetanus vaccination was within the last 5 years. Patient does have a 2 cm vertical laceration that will need radha. Patient will receive a CT scan of the brain, cervical spine. All radiologic examinations were read, reviewed by the emergency department attending. From these reads, a plan of care will be put in place. Patient be given 1 g of Tylenol for headache. Patient's CT scan was relayed to me by the radiologist, showing acute type II odontoid fracture noted extending to 16 mm subchondral cyst 13 and 90 mm bone density superior and posterior to the odontoid process suggestive of old odontoid fractures. Mild anterior listhesis. Secondary to patient having frequent falls, continue neck pain, patient will need to be transferred to a place that does have neurosurgery. Patient is currently in the process of being transferred to [facility]. Patient radha stable, placed in c-collar. Patient has a 2 cm vertical laceration to the posterior scalp. Sterile gloves, sterile drapes were used. I was able to place 4 radha to close the wound, edges approximated nicely. Patient tolerated well. The [facility] did call back, secondary to the spine surgeons at [facility] not wanting to do any sort of intervention, do not believe the patient needs to be transferred to their service. However secondary the patient having a mechanical fall, odontoid fracture, history of falls, I do believe the patientstill needs to be transferred, we will now try medicine admission at [facility]. I spoke with medicine, they will admit the patient at [facility]. Spoke with the patient they are in agreement. Patient remained stable. <Abelardo Reddy MD - Last Filed: 08/20/23 16:50> MDM MDM Narrative Medical decision making narrative: Dr. Reddy: I have personally performed a face to face assessment of the patient and have reviewed the ZE Note. I performed a substantive portion of the visit including all aspects of the following. My comer findings include: History is fall with head and neck pain. Had previous fall 2 weeks ago when fell against loveseat, has had neck pain since. Exam is GCS 15. ABCs intact. Awake, alert, oriented. Laceration to occipital scalp. Medical Decision Making: Check CT brain, check CT C-spine. Old fractures and pathologic fracture noticed from cyst. Acute type II odontoid fracture. Placedin c-collar. Transfer. Other additions or changes: [None] History & Record Review Discussion w/independent historian: Patient and Family Lab Data Attestation: I reviewed the patient's lab results. Labs: Laboratory Results - last 24 hr 08/20/23 13:30 WBC 8.1 RBC 4.97 Hgb 14.6 Hct 45.8 MCV 92.2 MCH 29.4 MCHC 31.9 L RDW Std Deviation 43.3 RDW Coeff of Dionne 12.9 Plt Count 345 MPV 10.3 Immature Gran % (Auto) 0.600 Neut % (Auto) 57.7 Lymph % (Auto) 31.6 [place] % (Auto) 5.9 Eos % (Auto) 3.3 Baso % (Auto) 0.9 Absolute Neuts (auto) 4.7 Absolute Lymphs (auto) 2.55 Nucleated RBC % 0 PT 12.5 INR 0.9 Sodium 138 Potassium 3.8 Chloride 106 Carbon Dioxide 27.0 Anion Gap 5 BUN 29 H Creatinine 1.38 H Estim Creat Clear Calc 34.49 Est GFR (MDRD) Af Amer 47 L Est GFR (MDRD) Non-Af 39 L BUN/Creatinine Ratio 21.0 H Glucose 140 H Calcium 8.9 Radiography Diagnostic Testing: Clinical Impression(s) from Imaging Studies Brain CT 08/20/23 12:32 IMPRESSION: 1. No acute intracranial abnormality. 2. Stable chronic microvascular changes. Electronically Signed: Tyshawn Love MD at 14:17 EDT , Cervical Spine CT 08/20/23 12:32 IMPRESSION: 1. Acute pathologic type II odontoid fracture. 2. Findings suggestive of chronic odontoid fracture. 3. Prominent spondylosis with multilevel spinal and neural foraminal stenoses as described. N.B. : The above Results were Read Back by Tyshawn Love MD to Quentin Mckeon NP, and understanding confirmed on 08/20/2023 13:16:13 (ET). Electronically Signed: Tyshawn Love MD at 13:19 EDT , ADDENDUM: 08/20/23 1326 IMPRESSION: 1. Acute pathologic type II odontoid fracture. 2. Findings suggestive of chronic odontoid fracture. 3. Prominent spondylosis with multilevel spinal and neural foraminal stenoses as described. N.B. : The above Results were Read Back by Tyshawn Love MD to Quentin Mckeon NP, and understanding confirmed on 08/20/2023 13:16:13 (ET). Electronically Signed: Tyshawn Love MD at 13:19 EDT , Discharge Plan Triage Chief Complaint: Fall ED Midlevel Provider: Quentin Mckeon ED Provider: Abelardo Reddy Dx/Rx/DC Orders Clinical Impression: Concussion, Acute renal insufficiency, Closed type II fracture of odontoid process, Fall, Laceration of scalp Prescriptions: No Action fluoxetine 40 mg Capsule 40 mg PO DAILY donepezil 10 mg Tablet 10 mg PO DAILY famotidine 40 mg Tablet 40 mg PO QHS levothyroxine [Synthroid] 25 mcg Tablet 25 mcg PO DAILY pantoprazole 40 mg Granules For Susp In Packet 40 mg PO DAILY Myrbetriq 50 mg Tablet Extended Release 24 Hr 50 mg PO DAILY ezetimibe 10 mg tablet 10 mg PO DAILY oxybutynin chloride 10 mg tablet extended release 24hr 10 mg PO DAILY meloxicam 7.5 mg tablet 7.5 mg PO DAILY Primary Care Provider: Dinah Melgar Referrals: Dinah Melgar MD [Primary Care Provider] - Disposition Disposition: Acute Care Hospital Discharge Location: [facility] What to do if you have Problems For any increased pain, shortness of breath, bleeding, nausea or vomiting, chestpain, or any unexpected problems, contact your Primary Care Provider. Call [facility] ([phone]) or report to the closest Emergency Room. Call 911 if necessary. 08/20/23 1553 <Electronically signed by Quentin GOLD> Cosigner Signature (if applicable): 08/20/23 1650 <Electronically signed by Abelardo Reddy MD> CC: Dr. Dinah Melgar MD ~ Signed [facility] Work Phone: [phone]) 217-790502-08-2024 Miscellaneous Notes* Telephone Encounter - Jessica Gamboa LPN - 06/16/2023 9:58 AM EST Spoke with pt and information listed below given. Pt verbalizes understanding. Jessica Gamboa LPN * Telephone Encounter - Joelle Newby Ma - 06/16/2023 9:42 AM EST Left message for patient to return call. Joelle Newby Ma * Telephone Encounter - Joelle Newby Ma - 06/16/2023 9:42 AM EST ----- Message from Sylvie Ariza APRN.CNS sent at 06/16/2023 8:03 AM EST ----- Please let pt. Know that thyroid, blood counts, and electrolytes were normal. Her kidney function is weak. Please drink 64 oz. Of water daily. Sorry about the delay in the treatment of UTI, I was waiting for the sensitivity for the bacteria. [facility] Miscellaneous Notes* Telephone Encounter - Sylvie Ariza APRN.CNS - 06/14/2023 2:27 PM EST Donepazil renewed per pharmacy request [facility] History of Present illness Narrative* Ton Looney - 06/14/2023 9:48 AM EST Subjective: Patient presents to clinic c/o painful toenails. They state that the nails are especially painful with shoe gear and pressure. Patient states that nails 1-5 b/l are painful. Patient does report to falling. No other pedal complaints at this time. Patient states no change in medications or medical history since last visit. Objective: Patient presents to clinic ambulating in [facility] Vasc: DP and PT pulses are palpable bilateral. CFT is less than 5 seconds bilateral. Skin temperature is warm to cool proximal to distal bilateral. There is mild edema or varicosities noted. Neuro: Protective sensation is intact to the foot and toes when tested with the 5.07 SWM bilateral.Vibratory sensation is decreased at the hallux IPJ bilateral. The hallux is downgoing bilateral. Derm: Nails 1-5 b/l are painful, discolored-yellow, thick, crumbly, dystrophic and with subungal debris. Skin is of normal turgor, texture and hair growth is decreased bilateral. There are no hyperkeratosis, ulcerations, scars, verruca or other lesions noted. Ortho: Muscle strength is 5/5 for all pedal groups tested. Ankle joint DF is decreased with the knee extended with no pain or crepitus noted. 1st MPJ ROM is decreased bilateral. Assessment: (B35.1) Onychomycosis (primary encounter diagnosis) (M79.675) Pain in toe of left foot (M79.674) Pain in toe of right foot Plan: Patient was seen and evaluated. Nails 1-5 bilateral were debrided in length and thickness. Small bleed to left 2nd toe Discussed falling. Offered therapy referral. She declined. Patient is to RTC in 3-4 months. Ton Looney DPM * Kimberly Domingo LPN - 06/14/2023 9:43 AM EST AMB ROOMING INTAKE FLOWSHEET DATA Patient presents with: Left Foot - Established Patient, nail care Right Foot - Established Patient, nail care Kimberly Domingo LPN [facility] Miscellaneous Notes* Telephone Encounter - Joelle Newby Ma - 06/13/2023 10:56 AM EST Spoke with Chris, they do have this in stock and will fill for patient * Telephone Encounter - Martínez Kessler LPN - 06/13/2023 10:30 AM EST Chris pharmacist from [facility] pharmacy calling the [id number] acetaminophen liquid is no longer available. Asking for another rx to replace the medication. Please advise documented in [facility] Miscellaneous Notes* Addendum Note - Sylvie Ariza APRN.PHOTOGRAPHIC AIDE - 06/13/2023 10:45 AM EST Addended by: SYLVIE ARIZA on: 06/13/2023 10:45 AM Modules accepted: Orders documented in this [facility]Det[facility] Instructions* Patient Instructions* Sylvie Ariza APRN.CNS - 06/13/2023 9:42 AM EST 1) Get labs done including urinalysis 2) Drink at least 64 oz of water 3) Chlorpheniramine as needed for allergy symptoms 4) Follow up in 3 months 5) Continue synthroid current dose & donepazil documented in [facility] History of Present illness Narrative* Sylvie Ariza APRN.CNS - 06/13/2023 9:06 AM EST This is a 77 year old female who presents today with: Patient presents with: Dizziness: Express care follow up- 06/13/23 HISTORY OF PRESENT ILLNESS: Georgina Segura is a 77 year old female. Patient presents with: Dizziness: Express care follow up- 06/13/23 Patient denies headaches, vision is getting worse, no significant hearing change Dizziness that has been ongoing. Notes that when she first stands up. Some weakness. Has been falling for the last year. Did go through physical therapy. States that it helped her gaitbut did not improve her falls. She has had no nausea or vomiting. No diarrhea. Had fallen and struck her face many months ago. Her left eye is still a little tender. Patient attributes the dizziness to sinus drainage. PAST MEDICAL HISTORY: PAST MEDICAL HISTORY Diagnosis Date Asthma 03/11/2010 Diarrhea Elevated CK 04/26/2012 Hyperlipidemia 04/26/2012 Impingement syndrome of right shoulder 10/11/2016 Neurogenic bladder, NOS Other and unspecified hyperlipidemia Other forms of migraine Overactive bladder 02/12/2009 Primary localized osteoarthrosis, lower leg Rotator cuff syndrome 02/12/2009 Situational depression 05/31/2018 Unspecified sleep apnea Urinary incontinence 03/11/2010 PAST SURGICAL HISTORY Procedure Laterality Date ADENOIDECTOMY PRIMARY <AGE 10 Adenoidectomy APPENDECTOMY COLONOSCOPY W/BIOPSY SINGLE/MULTIPLE 06/21/11 DILATION & CURETTAGE DX&/THER NONOBSTETRIC Dilation & curettage LAPAROSCOPY SURG CHOLECYSTECTOMY 07-15-06 Cholecystectomy, lap PAST SURGICAL HISTORY OF N/A 2017 urinary implant device TONSILLECTOMY PRIMARY/SECONDARY <AGE 10 Tonsillectomy VAGINAL HYSTERECTOMY UTERUS 250 GM/< Hysterectomy, vaginal ALLERGIES Vioxx [Rofecoxib] and Zocor [Simvastatin] MEDICATIONS Current Outpatient Medications Medication Sig pantoprazole DR (PROTONIX) 40 mg tablet Take 1 tablet by mouth once daily. levothyroxine (LEVOXYL) 25 mcg tablet Take 1 tablet by mouth once daily. Take on empty stomach. ForThyroid FLUoxetine (PROZAC) 40 mg capsule Take 1 capsule by mouth once daily. benzonatate (TESSALON PERLES) 100 mg capsule Take 1 capsule by mouth three times a day as needed for cough. donepezil (ARICEPT) 10 mg tablet Take 1 tablet by mouth daily at bedtime. famotidine (PEPCID) 40 mg tablet Take 1 tablet by mouth once daily. ezetimibe (ZETIA) 10 mg tablet Take 1 tablet by mouth once daily. mirabegron (MYRBETRIQ) 50 mg Tb24 Take 25 mg by mouth once daily. albuterol HFA (PROVENTIL HFA, VENTOLIN HFA) 90 mcg/actuation inhaler Inhale 2 Puffs as instructed every 4 hours as needed. acetaminophen (TYLENOL 8 HOUR ORAL) Take 500 mg by mouth twice daily. No current facility-administered medications for this visit. FAMILY HISTORY Problem Relation Age of Onset other (dementia [Other]) Father Heart Father Tremor Father Heart Mother Heart Brother Tremor Daughter Tremor Son Social History Tobacco Use Smoking status: Never Smokeless tobacco: Never Substance Use Topics Alcohol use: No Drug use: No REVIEW OF SYSTEMS PAIN ASSESSMENT: Negative for pain, history of chronic pain, or current treatment for a chronic pain condition. Abnormal gait with a wide stance GENERAL: Complains of weight gain, some tiredness HEENT: Negative for frequent or significant headaches, some visual changes over the last year. Had cataracts done over a year ago has not followed up. NECK: Negative for lumps, goiter, pain and significant neck swelling RESPIRATORY: Negative for cough, hemoptysis, wheezing, COPD, dyspnea or shortness of breath CARDIOVASCULAR: Negative for chest pain, leg swelling, hypertension, CHF or palpitations GI: No nausea, vomiting, or diarrhea : No history of dysuria, frequency or incontinence MUSCULOSKELETAL: Negative for joint pain or swelling, back pain or muscle pain NEURO: No history of headaches, syncope, paralysis, seizures or tremors does complain of unsteady gait for over a year All other reviewed and negative other than HPI.. Pressure sitting is 118/70, standing 90/60 EXAM: BP 110/72 Pulse 98 Resp 16 Wt 82.6 kg (182 lb) SpO2 95% BMI 32.24 kg/m PHYSICAL EXAM: General Appearance: Well appearing, alert, in no acute distress, well-hydrated, well nourished. andhas a cane but does not use it. Skin: Skin color, texture, turgor normal, no suspicious rashes or lesions. Head: Normocephalic, no masses, lesions, tenderness or abnormalities, some mild tenderness around the zygoma on the left side of her face that is persistent. Eyes: Anicteric sclera. Pupils are equally round and reactive to light. Extraocular movements are intact. . Ears: External ears normal, canals clear. Nose/Sinuses: Nares normal, septum midline, mucosa normal, no drainage or sinus tenderness. Neck: Supple, no adenopathy; thyroid symmetric, normal size, no bruits. Lungs: Lungs clear to auscultation. No wheezing, rhonchi, rales.. Heart: RRR without murmur, gallop, or rubs. No ectopy. Abdomen: Normal abdominal exam, Abdomen soft, non-tender. Bowel sounds normal. No masses, organomegaly. Musculoskeletal: No joint swelling, deformity, or tenderness. Neurologic: Gait normal. Reflexes normal and symmetric. Sensation grossly intact.. ASSESSMENT/PLAN: 1. Balance disorder - ICD9: 781.99, ICD10: R26.89 (primary diagnosis) Patient did go through physical therapy. - COMP METABOLIC PANEL - CBC + DIFF - VITAMIN B12 BLOOD - MAGNESIUM BLD - CHECK UA w/ culture 2. Hypothyroidism, acquired - ICD9: 244.9, ICD10: E03.9 Continue current dose of Synthroid. Will check level to make certain that this is the correct dose for her at this time - LEVOTHYROXINE 25 MCG TABLET - TSH BLD 3. Falls frequently - ICD9: V15.88, ICD10: R29.6 Encouraged to use her cane that she has at home. Also encouraged to drink 64 ounces of water daily - URINALYSIS WITH MICROSCOPIC, REFLEX CULTURE 4. Numbness and tingling of both feet - ICD9: 782.0, ICD10: R20.0, R20.2 - VITAMIN B12 BLOOD 5. 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 Seasonal allergic rhinitis due to pollen - ICD9: 477.0, ICD10: J30.1 - CHLORPHEN 4 MG-PHENYLEPH 10 MG-DM 13 MG-ACETAMIN 650 MG/10 ML ORAL LIQ Discussed treatment plan and patient voices understanding. Patient's questions answered appropriately. Medications and potential side effects were discussed and patient voices understanding. Return to the office as scheduled or as needed for worsening/no improvement. Sylvie Ariza APRN.CNS The patient indicates understanding of these issues and agrees with the plan. [facility] Instructions* Patient Instructions* Vera Ocampo APRN.CNP - 06/12/2023 1:05 PM EST Your ear looks okay today. There are other reasons for dizziness, that cannot be excluded in the Express Care. IF sx worsen, please seek ED. Please follow up tomorrow. [facility] History of Present illness Narrative* Vera Ocampo APRN.CNP - 06/12/2023 12:59 PM EST This note was created using NoteWriter. Subjective Georgina Segura is a 77 year old female. 77 year old female with PMH balance disorder, migraines, asthma, hyperlipidemia, IBS, GERD, thyroid, and recurrent falls presents for dizziness. Acute onset one month ago Endorses dizzy in the morning. Dizzy in the evening when she lays down. States that she has had history of same in past, In fact endorses that she had to retire early this past October related to her balance disorder and frequent falls. Denies seeking medical treatment for this bout, She presents today want you to check my ear Denies pain or discomfort with ear Denies reduce or limited hearing. Denies N/V/D She drove herself here today. The history is provided by the patient. No director speech language was used. Dizziness The patient's primary symptoms include a loss of balance. The patient's pertinent negatives includeno altered mental status, clumsiness, focal sensory loss, focal weakness, memory loss, near-syncope, slurred speech, syncope, visual change or weakness. This is a recurrent problem. Episode onset: this bout has been a month. The neurological problem developed suddenly. The problem is unchanged. There was no focality noted. Associated symptoms include dizziness and fatigue. Pertinent negatives include no abdominal pain, auditory change, aura, back pain, bladder incontinence, chest pain, confusion, diaphoresis, headaches, light-headedness, nausea, neck pain, palpitations, shortness of breath orvomiting. Past treatments include nothing. The treatment provided no relief. PAST MEDICAL HISTORY Diagnosis Date Asthma 03/11/2010 Diarrhea Elevated CK 04/26/2012 Hyperlipidemia 04/26/2012 Impingement syndrome of right shoulder 10/11/2016 Neurogenic bladder, NOS Other and unspecified hyperlipidemia Other forms of migraine Overactive bladder 02/12/2009 Primary localized osteoarthrosis, lower leg Rotator cuff syndrome 02/12/2009 Situational depression 05/31/2018 Unspecified sleep apnea Urinary incontinence 03/11/2010 PAST SURGICAL HISTORY Procedure Laterality Date ADENOIDECTOMY PRIMARY <AGE 10 Adenoidectomy APPENDECTOMY COLONOSCOPY W/BIOPSY SINGLE/MULTIPLE 06/21/11 DILATION & CURETTAGE DX&/THER NONOBSTETRIC Dilation & curettage LAPAROSCOPY SURG CHOLECYSTECTOMY 07-15-06 Cholecystectomy, lap PAST SURGICAL HISTORY OF N/A 2017 urinary implant device TONSILLECTOMY PRIMARY/SECONDARY <AGE 10 Tonsillectomy VAGINAL HYSTERECTOMY UTERUS 250 GM/< Hysterectomy, vaginal ALLERGIES Vioxx [Rofecoxib] and Zocor [Simvastatin] MEDICATIONS pantoprazole DR (PROTONIX) 40 mg tablet Take 1 tablet by mouth once daily. levothyroxine (LEVOXYL) 25 mcg tablet Take 1 tablet by mouth once daily. Take on empty stomach. ForThyroid FLUoxetine (PROZAC) 40 mg capsule Take 1 capsule by mouth once daily. benzonatate (TESSALON PERLES) 100 mg capsule Take 1 capsule by mouth three times a day as needed for cough. famotidine (PEPCID) 40 mg tablet Take 1 tablet by mouth once daily. ezetimibe (ZETIA) 10 mg tablet Take 1 tablet by mouth once daily. mirabegron (MYRBETRIQ) 50 mg Tb24 Take 25 mg by mouth once daily. albuterol HFA (PROVENTIL HFA, VENTOLIN HFA) 90 mcg/actuation inhaler Inhale 2 Puffs as instructed every 4 hours as needed. acetaminophen (TYLENOL 8 HOUR ORAL) Take 500 mg by mouth twice daily. donepezil (ARICEPT) 10 mg tablet Take 1 tablet by mouth daily at bedtime. FAMILY HISTORY Problem Relation Age of Onset other (dementia [Other]) Father Heart Father Tremor Father Heart Mother Heart Brother Tremor Daughter Tremor Son Social History Tobacco Use Smoking status: Never Smokeless tobacco: Never Substance Use Topics Alcohol use: No Drug use: No Review of Systems Constitutional: Positive for fatigue. Negative for diaphoresis. Respiratory: Negative for apnea, choking, chest tightness and shortness of breath. Cardiovascular: Negative for chest pain, palpitations and near-syncope. Gastrointestinal: Negative for abdominal pain, nausea and vomiting. Genitourinary: Negative for bladder incontinence. Musculoskeletal: Negative for arthralgias, back pain, gait problem and neck pain. Skin: Negative for color change, pallor, rash and wound. Allergic/Immunologic: Positive for immunocompromised state. Negative for environmental allergies and food allergies. Neurological: Positive for dizziness and loss of balance. Negative for focal weakness, seizures, syncope, speech difficulty, weakness, light-headedness and headaches. Hematological: Negative for adenopathy. Does not bruise/bleed easily. Psychiatric/Behavioral: Negative for agitation, behavioral problems, confusion and memory loss. Objective BP 126/80 Pulse 102 Temp 36.3 C (97.4 F) Resp 16 Wt 82.6 kg (182 lb) SpO2 98% BMI 32.24kg/m Physical Exam Vitals and nursing note reviewed. Constitutional: General: She is not in acute distress. Appearance: Normal appearance. She is normal weight. She is not ill-appearing, toxic-appearing or diaphoretic. Comments: Elderly appearing. Non toxic. HENT: Head: Normocephalic and atraumatic. Right Ear: Ear canal and external ear normal. Left Ear: Ear canal and external ear normal. Ears: Comments: Right EAC with mild cerum noted, No full impaction. TM normal appearing. Nose: Nose normal. No congestion or rhinorrhea. Mouth/Throat: Mouth: Mucous membranes are moist. Pharynx: No oropharyngeal exudate or posterior oropharyngeal erythema. Eyes: General: Right eye: No discharge. Left eye: No discharge. Extraocular Movements: Extraocular movements intact. Conjunctiva/sclera: Conjunctivae normal. Pupils: Pupils are equal, round, and reactive to light. Cardiovascular: Rate and Rhythm: Normal rate and regular rhythm. Pulses: Normal pulses. Heart sounds: Normal heart sounds. No murmur heard. No friction rub. Pulmonary: Effort: Pulmonary effort is normal. No respiratory distress. Breath sounds: Normal breath sounds. No stridor. No wheezing, rhonchi or rales. Chest: Chest wall: No tenderness. Abdominal: General: Abdomen is flat. There is no distension. Palpations: Abdomen is soft. There is no mass. Tenderness: There is no abdominal tenderness. There is no right CVA tenderness, left CVA tenderness, guarding or rebound. Hernia: No hernia is present. Musculoskeletal: General: No swelling, tenderness, deformity or signs of injury. Normal range of motion. Cervical back: Normal range of motion and neck supple. No rigidity. Right lower leg: No edema. Left lower leg: No edema. Lymphadenopathy: Cervical: No cervical adenopathy. Skin: General: Skin is warm and dry. Capillary Refill: Capillary refill takes less than 2 seconds. Coloration: Skin is not jaundiced or pale. Findings: No bruising, erythema, lesion or rash. Neurological: General: No focal deficit present. Mental Status: She is alert and oriented to person, place, and time. Cranial Nerves: No cranial nerve deficit. Sensory: No sensory deficit. Motor: No weakness. Coordination: Coordination normal. Gait: Gait normal. Psychiatric: Mood and Affect: Mood normal. Behavior: Behavior normal. Thought Content: Thought content normal. Judgment: Judgment normal. Assessment and Plan ASSESSMENT/PLAN: 1. Dizziness - ICD9: 780.4, ICD10: R42 X 1 month Endorses she feels it in morning and at evening. Daily Denies seeking medical treatment prior to today History of balance disorder She presents thinking it is her ear, denies pain or hearing. Ears are unremarkable. Discussed with patient that the express care on a Tuesday has limitations to work up dizziness It has been a month, she is reluctant to go to ED She will follow up with PCP in AM, appt made Discussed labs and possible imaging to further work up her dizziness for a month. Vera Ocampo APRN.SHIRLEY documented in this [facility] Discharge summary Author Rory Gomez [facility] April 06, 2023 2:04pm Note Date/Time April 06, 2023 2:04pm [facility] Medical Records Department [address] [place] [id number] Instructions for Home/Discharge Instructions 04/06/23 1404 MR#: [id number] Acct: [id number] Name: GEORGINA SEGURA Rep #:[id number] : 1945 77 From: Rory Gomez MD PCP: Dr. Dinah Melgar MD Status:REG S DC Discharge Instructions Diet Discharge Diet: No restrictions Activity Discharge Activity: Return to Normal Activity and May Not Drive (while taking narcotic pain medications.) Dressing / Incision Call your doctor if you observe: Fever of 101 or Higher Follow Up Care Please Follow Up With: Rory Gomez MD When: Call [phone] for an appointment Test Results: Test results from this visit will be discussed in further detail at your follow- up appointment, if applicable. Discharge Plan Admission Primary Reason for Your Visit: New battery and generator for InterStim Attending Provider: Rory Gomze Primary Care Provider: Dinah Melgar Discharge Orders/Prescriptions Prescriptions: New cephalexin 500 mg capsule 1,000 mg PO BID Qty: 10 0RF oxycodone 5 mg tablet 5 mg PO Q6H PRN (Reason: pain) 7 Days Qty: 10 0RF Continued fluoxetine 40 mg Capsule 40 mg PO DAILY donepezil 10 mg Tablet 10 mg PO DAILY famotidine 40 mg Tablet 40 mg PO QHS levothyroxine [Synthroid] 25 mcg Tablet 25 mcg PO DAILY pantoprazole 40 mg Granules For Susp In Packet 40 mg PO DAILY Myrbetriq 50 mg Tablet Extended Release 24 Hr 50 mg PO DAILY solifenacin 10 mg tablet 10 mg PO QHS ezetimibe 10 mg tablet 10 mg PO DAILY Referrals / Follow Up: Dinah Melgar MD [Primary Care Provider] - Disposition Disposition (needs filled in before D/C Order can be placed): Home, Self Care 04/06/23 1404<Electronically signed by Rory Gomez MD>Rory Gomez MD CC: Dr. Dinah Melgar MD ~ Signed [facility] Work Phone: 1(999) 583-650311-29-2023 History and physical note Author Rory Patricia [facility] April 06, 2023 2:01pm Note Date/Time April 06, 2023 2:01pm [facility] Medical Records Department [address] [place] [id number] History & Physical Exam 04/06/23 1401 MR#: [id number] Acct: [id number] Name: GEORGINA SEGURA Rep #:[id number] : 1945 77 From: Rory Gomez MD PCP: Dr. Dinah Melgar MD Status:REG S DC Location: [place] [address] HPI - General General Date of Service: 04/06/23 Chief Complaint: InterStim battery not working worn out HPI Narrative GEORGINA SEGURA, is a 77 F who presents stage II InterStim therapy change of B battery and generator [facility] Medical History (Updated 03/28/23 @ 15:10 by Laya Thomas) Ambulates with cane Arthritis Asthma Back pain CPAP (continuous positive airway pressure) dependence Depression Easy bruising GERD (gastroesophageal reflux disease) High cholesterol History of pain when walking Hypothyroid Injury of head and neck Loss of hearing Non-smoker Overactive bladder PONV (postoperative nausea and vomiting) Post-menopausal Wears glasses Home Medications donepezil 10 mg tablet 10 mg PO DAILY MEMORY 06/11/22 [History Last Taken Unknown] famotidine 40 mg tablet 40 mg PO QHS GERD 06/11/22 [History Last Taken Unknown] fluoxetine 40 mg capsule 40 mg PO DAILY DEPRESSION 06/11/22 [History Last Taken Unknown] levothyroxine 25 mcg tablet (Synthroid) 25 mcg PO DAILY THYROID 06/11/22 [History Last Taken 04/06/23] mirabegron 50 mg tablet,extended release 24 hr (Myrbetriq) 50 mg PO DAILY OAB 06/11/22 [History Last Taken Unknown] pantoprazole 40 mg granules delayed-release for susp in packet 40 mg PO DAILY 06/11/22 [History Last Taken 04/06/23] ezetimibe 10 mg tablet 10 mg PO DAILY 03/28/23 [History Last Taken Unknown] solifenacin 10 mg tablet 10 mg PO QHS 03/28/23 [History Last Taken Unknown] Allergy/AdvReac Type Severity Reaction Status Date / Time rofecoxib [From Vioxx] Allergy Unknown Verified 03/28/23 14:51 Surgical History (Updated 03/28/23 @ 15:10 by Laya Thomas) H/O lateral meniscus repair of right knee History of appendectomy History of bladder surgery History of cholecystectomy History of partial hysterectomy Hx of surgical biopsy Social History Smoking Status: Never smoker substance use type: does not use Vital Signs Vital Signs Vital Signs: 04/06/23 11:37 04/06/23 11:37 Temperature 98.4 F Temperature Source Temporal Pulse Rate 86 Respiratory Rate 16 Respiratory Pattern Normal Blood Pressure 134/84 H Blood Pressure Mean 100 Blood Pressure Source Monitor Blood Pressure Position Semi-Fowlers Blood Pressure Location Left Arm Pulse Ox 93 Oxygen Delivery Method Room Air Weight Weight: 82.2 kg Body Mass Index (BMI) 32.1 04/06/23 1401 <Electronically signed by Rory Gomez MD> Cosigner Signature (if applicable): CC: Dr. Rory Gomez MD; Dr. Dinah Melgar MD~ Signed [facility] Work Phone: 1(389) 927-738211-29-2023 Procedure [facility] 02-16-2023 History of Past illness Narrative* Problem Noted Date Diagnosed Date Resolved Date Fall 02/16/2023 02/16/2023 02/16/2023 Fracture of skull 02/16/2023 02/16/2023 02/16/2023 Acute pain of left shoulder 11/29/2022 02/16/2023 Cough 11/23/2022 02/16/2023 Dementia without behavioral disturbance 10/11/2022 02/16/2023 Imbalance 10/11/2022 02/16/2023 Special screening examinatio n for viral disease 02/03/2022 02/03/2022 Closed head injury 11/18/2021 02/16/2023 Contusion of forehead 11/18/2021 02/16/20232022 OPENED IN ERROR 10/13/2018 02/03/2022 Situational depression 05/31/201802/16 Tear of biceps tendon 05/18/20172022 Impingement syndrome of right shoulder 10/11/2016 05/18/2017 Rotator cuff strain 04/23/2015 05/18/19 Right rotator cuff tear 06/28/201307/2013 Impingement syndrome of right shoulder 06/06/2013 04/10/2014 Supraspinatus tendonitis 12/06/201207/2013 Hyperlipidemia 04/26/2012 04/10/2014 Elevated CK 04/26/2012 04/10/2014 Diarrhea 06/21/2011 04/10/2014 Rotator cuff syndrome 02/12/20092013 documented as of this encounter (statuses as of 06/12/2023) [facility] History of Past illness Narrative* Problem Noted Date Diagnosed Date Resolved Date Fall 02/16/2023 02/16/2023 02/16/2023 Fracture of skull 02/16/2023 02/16/2023 02/16/2023 Acute pain of left shoulder 11/29/2022 02/16/2023 Cough 11/23/2022 02/16/2023 Dementia without behavioral disturbance 10/11/2022 02/16/2023 Imbalance 10/11/2022 02/16/2023 Special screening examinatio n for viral disease 02/03/2022 02/03/2022 Closed head injury 11/18/2021 02/16/2023 Contusion of forehead 11/18/2021 02/16/20232022 OPENED IN ERROR 10/13/2018 02/03/2022 Situational depression 05/31/201802/16 Tear of biceps tendon 05/18/20172022 Impingement syndrome of right shoulder 10/11/2016 05/18/2017 Rotator cuff strain 04/23/2015 05/18/19 18 Right rotator cuff tear 06/28/201307/2013 Impingement syndrome of right shoulder 06/06/2013 04/10/2014 Supraspinatus tendonitis 12/06/201207/2013 Hyperlipidemia 04/26/2012 04/10/2014 Elevated CK 04/26/2012 04/10/2014 Diarrhea 06/21/2011 04/10/2014 Rotator cuff syndrome 02/12/20092013 documented as of this encounter (statuses as of 06/13/2023) [facility] of Past illness Narrative* Problem Noted Date Diagnosed Date Resolved Date Fall 02/16/2023 02/16/2023 02/16/2023 Fracture of skull 02/16/2023 02/16/2023 02/16/2023 Acute pain of left shoulder 11/29/2022 02/16/2023 Cough 11/23/2022 02/16/2023 Dementia without behavioral disturbance 10/11/2022 02/16/2023 Imbalance 10/11/2022 02/16/2023 Special screening examinatio n for viral disease 02/03/2022 02/03/2022 Closed head injury 11/18/2021 02/16/2023 Contusion of forehead 11/18/2021 02/16/20232022 OPENED IN ERROR 10/13/2018 02/03/2022 Situational depression 05/31/201802/16 Tear of biceps tendon 05/18/20172022 Impingement syndrome of right shoulder 10/11/2016 05/18/2017 Rotator cuff strain 04/23/2015 05/18/19 18 Right rotator cuff tear 06/28/201307/2013 Impingement syndrome of right shoulder 06/06/2013 04/10/2014 Supraspinatus tendonitis 12/06/201207/2013 Hyperlipidemia 04/26/2012 04/10/2014 Elevated CK 04/26/2012 04/10/2014 Diarrhea 06/21/2011 04/10/2014 Rotator cuff syndrome 02/12/20092013 documented as of this encounter (statuses as of 06/13/2023) [facility] of Past illness Narrative* Problem Noted Date Diagnosed Date Resolved Date Fall 02/16/2023 02/16/2023 02/16/2023 Fracture of skull 02/16/2023 02/16/2023 02/16/2023 Acute pain of left shoulder 11/29/2022 02/16/2023 Cough 11/23/2022 02/16/2023 Dementia without behavioral disturbance 10/11/2022 02/16/2023 Imbalance 10/11/2022 02/16/2023 Special screening examinatio n for viral disease 02/03/2022 02/03/2022 Closed head injury 11/18/2021 02/16/2023 Contusion of forehead 11/18/2021 02/16/20232022 OPENED IN ERROR 10/13/2018 02/03/2022 Situational depression 05/31/201802/16 Tear of biceps tendon 05/18/20172022 Impingement syndrome of right shoulder 10/11/2016 05/18/2017 Rotator cuff strain 04/23/2015 05/18/19 18 Right rotator cuff tear 06/28/201307/2013 Impingement syndrome of right shoulder 06/06/2013 04/10/2014 Supraspinatus tendonitis 12/06/201207/2013 Hyperlipidemia 04/26/2012 04/10/2014 Elevated CK 04/26/2012 04/10/2014 Diarrhea 06/21/2011 04/10/2014 Rotator cuff syndrome 02/12/20092013 documented as of this encounter (statuses as of 06/14/2023) [facility] of Past illness Narrative* Problem Noted Date Diagnosed Date Resolved Date Fall 02/16/2023 02/16/2023 02/16/2023 Fracture of skull 02/16/2023 02/16/2023 02/16/2023 Acute pain of left shoulder 11/29/2022 02/16/2023 Cough 11/23/2022 02/16/2023 Dementia without behavioral disturbance 10/11/2022 02/16/2023 Imbalance 10/11/2022 02/16/2023 Special screening examinatio n for viral disease 02/03/2022 02/03/2022 Closed head injury 11/18/2021 02/16/2023 Contusion of forehead 11/18/2021 02/16/20232022 OPENED IN ERROR 10/13/2018 02/03/2022 Situational depression 05/31/201802/16 Tear of biceps tendon 05/18/20172022 Impingement syndrome of right shoulder 10/11/2016 05/18/2017 Rotator cuff strain 04/23/2015 05/18/19 Right rotator cuff tear 06/28/201307/2013 Impingement syndrome of right shoulder 06/06/2013 04/10/2014 Supraspinatus tendonitis 12/06/201207/2013 Hyperlipidemia 04/26/2012 04/10/2014 Elevated CK 04/26/2012 04/10/2014 Diarrhea 06/21/2011 04/10/2014 Rotator cuff syndrome 02/12/20092013 documented as of this encounter (statuses as of 06/15/2023) [facility] of Past illness Narrative* Problem Noted Date Diagnosed Date Resolved Date Fall 02/16/2023 02/16/2023 02/16/2023 Fracture of skull 02/16/2023 02/16/2023 02/16/2023 Acute pain of left shoulder 11/29/2022 02/16/2023 Cough 11/23/2022 02/16/2023 Dementia without behavioral disturbance 10/11/2022 02/16/2023 Imbalance 10/11/2022 02/16/2023 Special screening examinatio n for viral disease 02/03/2022 02/03/2022 Closed head injury 11/18/2021 02/16/2023 Contusion of forehead 11/18/2021 02/16/20232022 OPENED IN ERROR 10/13/2018 02/03/2022 Situational depression 05/31/201802/16 Tear of biceps tendon 05/18/20172022 Impingement syndrome of right shoulder 10/11/2016 05/18/2017 Rotator cuff strain 04/23/2015 05/18/19 18 Right rotator cuff tear 06/28/201307/2013 Impingement syndrome of right shoulder 06/06/2013 04/10/2014 Supraspinatus tendonitis 12/06/201207/2013 Hyperlipidemia 04/26/2012 04/10/2014 Elevated CK 04/26/2012 04/10/2014 Diarrhea 06/21/2011 04/10/2014 Rotator cuff syndrome 02/12/20092013 documented as of this encounter (statuses as of 06/15/2023) [facility] of Past illness Narrative* Problem Noted Date Diagnosed Date Resolved Date Fall 02/16/2023 02/16/2023 02/16/2023 Fracture of skull 02/16/2023 02/16/2023 02/16/2023 Acute pain of left shoulder 11/29/2022 02/16/2023 Cough 11/23/2022 02/16/2023 Dementia without behavioral disturbance 10/11/2022 02/16/2023 Imbalance 10/11/2022 02/16/2023 Special screening examinatio n for viral disease 02/03/2022 02/03/2022 Closed head injury 11/18/2021 02/16/2023 Contusion of forehead 11/18/2021 02/16/20232022 OPENED IN ERROR 10/13/2018 02/03/2022 Situational depression 05/31/201802/16 Tear of biceps tendon 05/18/20172022 Impingement syndrome of right shoulder 10/11/2016 05/18/2017 Rotator cuff strain 04/23/2015 05/18/19 18 Right rotator cuff tear 06/28/201307/2013 Impingement syndrome of right shoulder 06/06/2013 04/10/2014 Supraspinatus tendonitis 12/06/201207/2013 Hyperlipidemia 04/26/2012 04/10/2014 Elevated CK 04/26/2012 04/10/2014 Diarrhea 06/21/2011 04/10/2014 Rotator cuff syndrome 02/12/20092013 documented as of this encounter (statuses as of 06/16/2023) [facility] of Past illness Narrative* Problem Noted Date Diagnosed Date Resolved Date Fall 02/16/2023 02/16/2023 02/16/2023 Fracture of skull 02/16/2023 02/16/2023 02/16/2023 Acute pain of left shoulder 11/29/2022 02/16/2023 Cough 11/23/2022 02/16/2023 Dementia without behavioral disturbance 10/11/2022 02/16/2023 Imbalance 10/11/2022 02/16/2023 Special screening examinatio n for viral disease 02/03/2022 02/03/2022 Contusion of forehead 11/18/2021 02/16/20232022 OPENED IN ERROR 10/13/2018 02/03/2022 Situational depression 05/31/201802/16 Tear of biceps tendon 05/18/20172022 Impingement syndrome of right shoulder 10/11/2016 05/18/2017 Rotator cuff strain 04/23/2015 05/18/19 Right rotator cuff tear 06/28/201307/2013 Impingement syndrome of right shoulder 06/06/2013 04/10/2014 Supraspinatus tendonitis 12/06/201207/2013 Hyperlipidemia 04/26/2012 04/10/2014 Elevated CK 04/26/2012 04/10/2014 Diarrhea 06/21/2011 04/10/2014 Rotator cuff syndrome 02/12/20092013 documented as of this encounter (statuses as of 08/25/2023) [facility] History of Present illness Narrative* Dinah Melgar MD - 02/16/2023 8:11 AM EDT Patient presents with: 6 Month Exam HPI: Patient presents today for office visit for follow up. Complaints of chest congestion, cough, and sore throat X 1 wk. No fever. Did not do home covid testing. No shortness of breath. No ear pain that is new. Slightly hoarse. No nausea or vomiting or diarrhea. No issues with taste or smell. Has had multiple falls. Latest fall was last night while at grocery store. Had a knot on back of her head last night but is better today and a bruise on her chest. Has been seeing neurology for same. Was not using her cane with recent store. Reinforced need for safety issues. No loc or headache or neuro issues. No new memory issues. Recently finished PT. PULM: Hx of asthma. Hardly using her rescue inhaler. Denies shortness of breath. HLD: Continues on Zetia. GERD: Using Pepcid and Protonix with relief. No issues. URO/OAB: Appt next week with urology. No issues. Continues on Myrbetriq. Still with incontinence. Emotionally is feeling well. No chest pain or edema. Hypothyroid: stable energy level. MEDICATIONS: Current Outpatient Medications Medication Sig acetaminophen (TYLENOL 8 HOUR ORAL) Take 500 mg by mouth twice daily. albuterol HFA (PROVENTIL HFA, VENTOLIN HFA) 90 mcg/actuation inhaler Inhale 2 Puffs as instructed every 4 hours as needed. donepezil (ARICEPT) 10 mg tablet Take 1 tablet by mouth daily at bedtime. ezetimibe (ZETIA) 10 mg tablet Take 1 tablet by mouth once daily. famotidine (PEPCID) 40 mg tablet Take 1 tablet by mouth once daily. FLUoxetine (PROZAC) 40 mg capsule Take 1 capsule by mouth once daily. levothyroxine (LEVOXYL) 25 mcg tablet Take 1 tablet by mouth once daily. Take on empty stomach. ForThyroid meloxicam (MOBIC) 7.5 mg tablet Take 1 tablet by mouth once daily. mirabegron (MYRBETRIQ) 50 mg Tb24 Take 25 mg by mouth once daily. pantoprazole DR (PROTONIX) 40 mg tablet Take 1 tablet by mouth once daily. No current facility-administered medications for this visit. ALLERGIES: ALLERGIES Allergen Reactions Vioxx [Rofecoxib] Zocor [Simvastatin] Other: See Comments elevated CPK PAST MEDICAL HISTORY Diagnosis Date Asthma 03/11/2010 Diarrhea Elevated CK 04/26/2012 Hyperlipidemia 04/26/2012 Impingement syndrome of right shoulder 10/11/2016 Neurogenic bladder, NOS Other and unspecified hyperlipidemia Other forms of migraine Overactive bladder 02/12/2009 Primary localized osteoarthrosis, lower leg Rotator cuff syndrome 02/12/2009 Situational depression 05/31/2018 Unspecified sleep apnea Urinary incontinence 03/11/2010 PAST SURGICAL HISTORY Procedure Laterality Date ADENOIDECTOMY PRIMARY <AGE 10 Adenoidectomy APPENDECTOMY COLONOSCOPY W/BIOPSY SINGLE/MULTIPLE 06/21/11 DILATION & CURETTAGE DX&/THER NONOBSTETRIC Dilation & curettage LAPAROSCOPY SURG CHOLECYSTECTOMY 07-15-06 Cholecystectomy, lap PAST SURGICAL HISTORY OF N/A 2017 urinary implant device TONSILLECTOMY PRIMARY/SECONDARY <AGE 10 Tonsillectomy VAGINAL HYSTERECTOMY UTERUS 250 GM/< Hysterectomy, vaginal FAMILY HISTORY Problem Relation Age of Onset other (dementia [Other]) Father Heart Father Tremor Father Heart Mother Heart Brother Tremor Daughter Tremor Son Social History Tobacco Use Smoking status: Never Smokeless tobacco: Never Substance Use Topics Alcohol use: No Drug use: No Reviewed current medications, allergies, past medical history, surgical history, family history andsocial history today. REVIEW OF SYSTEMS All other reviewed and negative other than HPI. HEALTH MAINTENANCE: Reviewed health maintenance issues today and recommended the following in detail. Influenza Vaccine(1) due on 01/07/2023 Covid-19 Vaccine( season) due on 01/07/2023 VITALS: BP 131/82 Pulse 87 Ht 160 cm (5' 3) Wt 82.1 kg (181 lb) SpO2 95% BMI 32.06 kg/m Last 4 Encounter Wt Readings: Date: Wt: 12/26/2022 81.1 kg (178 lb 12.8 oz) 11/23/2022 79.3 kg (174 lb 12.8 oz) 10/11/2022 77.6 kg (171 lb) 10/06/2022 80.6 kg (177 lb 11.2 oz) PHYSICAL EXAMINATION: General appearance: Well appearing, alert, in no acute distress, well-hydrated, well nourished. Skin: Skin color, texture, turgor normal, no suspicious rashes or lesions Head: Normocephalic, no masses, lesions, tenderness or abnormalities Eyes: Anicteric sclera. Pupils are equally round and reactive to light. Extraocular movements are intact. Ears: some serous fluid. Mild wax in the left. Nose/Sinuses: Nares normal, septum midline, mucosa normal, no drainage or sinus tenderness Oropharynx: Lips, mucosa, and tongue normal, teeth and gums normal, oropharynx normal Neck: Supple, no adenopathy; thyroid symmetric, normal size, no bruits Lungs: Lungs clear to auscultation. No wheezing, rhonchi, rales Heart: RRR without murmur, gallop, or rubs. No ectopy Abdomen: Normal abdominal exam, Abdomen soft, non-tender. Bowel sounds normal. No masses, organomegaly Extremities: No deformities, edema, skin discoloration, clubbing or cyanosis. Good capillary refill. Musculoskeletal: No joint swelling, deformity, or tenderness ASSESSMENT/PLAN: 1. Acute cough - ICD9: 786.2, ICD10: R05.1 (primary diagnosis) - Discussed risks and benefits of new medication with the patient. Advised them to call if any sideeffects or questions. Red flags for re-assessment reviewed with patient in detail. Call if symptoms worsen at all or if not better in one to two weeks Reviewed diagnosis and treatment options in detail. Questions were answered. Patient expressed understanding of treatment plan. - COVID & INFLUENZA A/B & RSV NAAT, ROUTINE - COVID NAAT, UPPER RESPIRATORY, ROUTINE - ROUTINE FLU A/B + RSV 2. Mild intermittent asthma, uncomplicated - ICD9: 493.90, ICD10: J45.20 - stable. 3. Uncomplicated asthma, unspecified asthma severity, unspecified whether persistent - ICD9: 493.90, ICD10: J45.909 - as abve, 4. Unspecified sleep apnea - ICD9: 780.57, ICD10: G47.30 - does not treat. 5. Hyperlipidemia LDL goal <100 - ICD9: 272.4, ICD10: E78.5 - Control undetermined, due for labs - Counseled on healthy diet and regular exercise - check labs in six months. - TSH BLD 6. Overactive bladder - ICD9: 596.51, ICD10: N32.81 - stable. 7. Hypothyroidism, acquired - ICD9: 244.9, ICD10: E03.9 - check labs in six months. - CBC - COMP METABOLIC PANEL - TSH BLD - LIPID PANEL BASIC 8. 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 History of skull fracture - ICD9: V15.51, ICD10: Z87.81 - stable. 10. Depression, recurrent (HCC) - ICD9: 296.30, ICD10: F33.9 - continue meds. 11. Dementia without behavioral disturbance (HCC) - ICD9: 294.20, ICD10: F03.90 - due for follow up. - CONSULT TO NEUROLOGY 12. Bronchitis - ICD9: 490, ICD10: J40 - COVID & INFLUENZA A/B & RSV NAAT, ROUTINE - COVID NAAT, UPPER RESPIRATORY, ROUTINE - ROUTINE FLU A/B + RSV - DOXYCYCLINE MONOHYDRATE 100 MG TABLET - BENZONATATE 100 MG CAPSULE 13. Multiple falls - ICD9: V15.88, ICD10: R29.6 - needs to use cane. Is often not - CONSULT TO NEUROLOGY 14. Contusion of other part of head, initial encounter - ICD9: 920, ICD10: S00.83XA - appears benign. Red flags for re-assessment reviewed with patient in detail. Dinah Melgar MD documented [facility] History of Present illness Narrative* Vera Matthews, PT - 01/24/2023 9:47 AM EDT Episode Visit Count: 15 Therapist That Will Accept/Oversee The Plan Of Care: Vera Matthews Start of Care Date: 11/15/22 Onset Date: 10/30/22 Plan of Care Certification Date: 12/29/22 Next Certification Due Date: 02/02/23 Patient Identified by Name and Date of : Yes REHABILITATION AND SPORTS THERAPY PHYSICAL THERAPY DISCONTINUANCE OF CARE PLAN OF CARE UPDATE: Assessment: Georgina Segura is discontinued from Physical Therapy services due to goal achievement and maximal benefit.. Patient was seen for 15 visits from Start of Care Date: 11/15/22 to 01/24/2023 and treatment included: Therapeutic exercise, Neuromuscular re-education, Manual therapy, Self-custodial management, and Gait training. Goals for Episode of Care: created on 11/15/22 through 12/27/22 Goals updated on 12/15/2022. Goals updated on 12/29/2022 through 02/02/23 Goals updated on 01/24/2023. Patient will report no falls. -- MET Improve score on Timed Up and Go Test to < 9 seconds to reflect decreased fall risk. -- PROGRESSING, 14 seconds with quad cane -- NOT MET 14 seconds with SC Improve score on 30 Second Chair Stand to 10 repetitions to reflect decreased fall risk. -- PROGRESSING, 8 reps -- MET 13 reps Patient will demonstrate independent and proper use of assisstive device to allow for improved walking quality and safety therefore reducing the risk of falls. -- MET Perform picking items off the floor without LOB. -- MET Patient Goals: reduce fall risk -- PROGRESSING DGI improve score to or greater -- PROGRESSING -- NOT MET SHOULDER GOALS: Goals for Episode of Care: created on 11/29/22 through 01/10/23 Goals updated on 12/29/2022 through 02/02/2023 Mora in home exercise program. -- MET Patient will decrease pain rating by 2 points to meet minimal clinical important difference for numeric pain rating scale. -- Met Patient will increase active ROM of L shoulder elevation to to 170 degrees or greater without limitation due to pain to allow pt to to improve performance of ADLs. -- PROGRESSING -- MET 171 Patient will increase flexibility of bilateral upper trapezius to WNL to improve ability to maintain proper posture, improve mechanics, and decrease pain. -- PROGRESSING, reports tightness with right SB but demonstrates equal AROM bilaterally. -- MET Perform reaching behind the back (Left 3rd MCP to L3 AROM IR L shoulder) without pain. -- MET, L2 Patient Goals: reach behind the back, donning UE clothing -- MET SUBJECTIVE: pt. presents 20 min late. pt. presents with L knee brace. pt. is happy with progress mde since the beginning of therapy. Pt. agrees to DC today.. Patient Goals: reduce fall risk Functional Limitations: rising from a chair, walking Prior Level of Function: Independent without limitations Falls Interview: No positive findings with falls interview Pain: Pain Pain Level: 0 Pain Location: Low Back/Lumbar Spine- Midline Pain Level 2: 0 Pain Location 2: Shoulder - Left Post Treatment Pain Post Treatment Pain Level: 0 Post Treatment Pain Location: Shoulder - Left, Low Back/Lumbar Spine- Midline PROMIS Scales Higher is Better 01/18/2023 12/20/2022 11/14/2022 Phys Func - Score 41 (mild dysfunction) 39 (moderate dysfunction) 33 (moderate dysfunction) Phys Func - Percentile 18 % 14 % 4 % Self-Eff Symptom - Score 42 (Average) 44 (Average) 45 (Average) Self-Eff Symptom - Percentile 21 % 27 % 31 % T-scores: mean of general population = 50. 5 points is clinically meaningfully difference Percentiles provide an indication of how the patient's score ranks in relation to the general population. Higher percentile rankings indicate better function/quality of life. 50th percentile is the average of the general population and indicates half of respondents had a worse score. OBJECTIVE MEASURES WITH LEVEL OF FUNCTION: UE AROM L Shoulder Flex: 171 Degrees UE Flexibility R Upper Trapezius Flexibilty Comments: WNL L Upper Trapezius Flexibility Comments: WNL Functional Performance Test Results 30 Second Chair Stand Test: 13 reps Timed Up and Go (sec): 14 sec TREATMENT: Therapeutic Exercise: 1: 30 sec sit to stand 13 repitions Skilled Intervention: Patient was educated in proper exercise technique and purpose for exercises. Skilled judgment was provided in selection of appropriate interventions. Correct performance of therapeutic exercises was facilitated with verbal and visual cuing. Patient education as noted. Neuromuscular Re-Education: 1: TUG with SC 14 sec Skilled Intervention: Skilled judgment used to assess appropriate program for balance and coordination activity. Ensured patient safety with use of gait belt Patient education as noted. Self-Group Home Management: 1: *discussed continuation of shoulder exercises at home. 2: *discussed outcome measure scores and how they relate to fall risk. 3: *discussed pt. progress and goal achievment at length and recommmended DC Skilled Intervention: Skilled judgment in the selection of proper modification for activity of daily living/home management based on clinical presentation, deficits, and needs. Reviewed patient specific diagnosis in relation to activities of daily living/home management. Activity progression based on professional judgement. Billing Therapeutic Exercise Treatment Minutes: 5 Neuromuscular Re-Education Treatment Minutes: 5 Self-Care/Home Management Treatment Minutes: 20 Skilled Treatment Time Minutes (timed and untimed codes): 30 Total Session Time (minutes): 30 Session Start Time : 0945 Session Stop Time : 1015 BIANCA Hardy Supervising therapist was present and guided the care of the patient for the entire session on thisdate. All documentation was reviewed and agreed upon. Vera Matthews PT documented in this encounterDet[facility]-14-[facility] History of Present illness Narrative* Mono Paige, SPT - 01/20/2023 8:02 AM EDT Episode Visit Count: 14 Therapist That Will Accept/Oversee The Plan Of Care: Vera Matthews Start of Care Date: 11/29/22 Onset Date: 10/30/22 Plan of Care Certification Date: 12/29/22 Next Certification Due Date: 02/02/23 REHABILITATION AND SPORTS THERAPY PHYSICAL THERAPY TREATMENT NOTE ASSESSMENT: Georgina Segura tolerated the session with no issues. She demonstrated improvements in L shoulder ROM and symptom management. Continues to display difficulty with balance on compliant surface The patient will continue to benefit from ongoing skilled physical therapy to progress toward set goals. PLAN FOR NEXT VISIT: Continue shoulder AAROM and strengthening. Progress balance training with EC. SUBJECTIVE: pt. is doing well. pt. states that I am significantly better than when she started PT. Pain: Pain Pain Level: 0 Pain Location: Low Back/Lumbar Spine- Midline Pain Level 2: 0 Pain Location 2: Shoulder - Left Post Treatment Pain Post Treatment Pain Location: Shoulder - Left, Low Back/Lumbar Spine- Midline OBJECTIVE MEASURES WITH LEVEL OF FUNCTION: TREATMENT: Therapeutic Exercise: 1: Scapular retraction 3x15 2: Scapular circles 2x10 each direction 3: Standing extension AAROM with cane 3x10 4: Standing AAROM IR 3x10 5: Standing AAROM flexion 2x10 6: Standing horizontal abduction with YTB 3x8 7: Seated ER with YTB 3x10 Skilled Intervention: Patient was educated in proper exercise technique and purpose for exercises. Skilled judgment was provided in selection of appropriate interventions. Correct performance of therapeutic exercises was facilitated with verbal, visual, and tactile cuing. Patient education as noted. Neuromuscular Re-Education: 1: Step ups on foam with use of cane in // bars 2x12 each leg leading CGA 2: NBOS on foam with EO 3x30 seconds in // bars CGA 3: NBOS on foam with EC 1x20 seconds in // bars Corrine Skilled Intervention: Skilled judgment used to assess appropriate program for balance and coordination activity. Ensured patient safety with use of gait belt and parallel // Patient education as noted. Billing Therapeutic Exercise Treatment Minutes: 25 Neuromuscular Re-Education Treatment Minutes: 15 Skilled Treatment Time Minutes (timed and untimed codes): 40 Total Session Time (minutes): 40 Session Start Time : 0800 Session Stop Time : 0840 BIANCA Hardy Supervising therapist was present and guided the care of the patient for the entire session on thisdate. All documentation was reviewed and agreed upon. Vera Matthews PT documented in [facility]Det[facility]09-[facility] History of Present illness Narrative* Vera Matthews PT - 01/18/2023 8:52 AM EDT Episode Visit Count: 13 Therapist That Will Accept/Oversee The Plan Of Care: Vera Matthews Start of Care Date: 11/29/22 Onset Date: 10/30/22 Plan of Care Certification Date: 12/29/22 Next Certification Due Date: 02/02/23 Patient Identified by Name and Date of : Yes REHABILITATION AND SPORTS THERAPY PHYSICAL THERAPY TREATMENT NOTE ASSESSMENT: Georgina Segura tolerated the session with fatigue and expected muscle soreness. She demonstrated improvements in steps ups on foam and balance on NBOS on foam. The patient will continue to benefit from ongoing skilled physical therapy to progress toward set goals. PLAN FOR NEXT VISIT: Continue shoulder strengthening and flexibility training. Introduce more AAROm flexion exercise SUBJECTIVE: Pt reports thst her shoulder is feeling good today. Pt states that her legs feel off today. States that her legs feel tight, especially her L knee. Pt ambulating with SC vs. quad cane. Pain: Pain Pain Level: 0 Pain Location: Low Back/Lumbar Spine- Midline Description: Sore Pain Level 2: 0 Pain Location 2: Shoulder - Left Post Treatment Pain Post Treatment Pain Level: Better Post Treatment Pain Location: Shoulder - Left, Low Back/Lumbar Spine- Midline OBJECTIVE MEASURES WITH LEVEL OF FUNCTION: Increased upright posture with ambulation with SC vs. Quad cane. TREATMENT: Therapeutic Exercise: 1: SciFit level 2, 1:1 throughout, subjective collected, seat 12 2: seated L UT stretch 2x30 sec 3: Scapular retraction 3x15 4: Standing extension AAROM with cane 2x10 5: Standing AAROM IR 2x10 6: wall slides 2x15 7: Scapular circles 2x20 each direction Skilled Intervention: Patient was educated in proper exercise technique and purpose for exercises. Skilled judgment was provided in selection of appropriate interventions. Correct performance of therapeutic exercises was facilitated with verbal and visual cuing. Neuromuscular Re-Education: 1: Step ups on foam with use of cane in RUE 1x12 B 2: Marching on foam without UE assist 2x15 B . (CGA provided at gait belt) 3: NBOS on foam with EO 2x30 seconds Skilled Intervention: Skilled judgment used to assess appropriate program for balance and coordination activity. Ensured patient safety with use of gait belt. Billing Therapeutic Exercise Treatment Minutes: 28 Neuromuscular Re-Education Treatment Minutes: 12 Skilled Treatment Time Minutes (timed and untimed codes): 40 Total Session Time (minutes): 40 Session Start Time : 844 Session Stop Time : 924 DURGA Worley PT documented in this encounterDetw[facility]08-28-2023 History of Present illness Narrative* Vera Matthews, PT - 01/03/2023 9:34 AM EDT Episode Visit Count: 12 Therapist That Will Accept/Oversee The Plan Of Care: Vera Matthews Start of Care Date: 11/29/22 Onset Date: 10/30/22 Plan of Care Certification Date: 12/29/22 Next Certification Due Date: 02/02/23 Patient Identified by Name and Date of : Yes REHABILITATION AND SPORTS THERAPY PHYSICAL THERAPY TREATMENT NOTE ASSESSMENT: Georgina Segura tolerated the session with fatigue. She demonstrated difficulty with stepping up on foam using SPC in RUE. The patient will continue to benefit from ongoing skilled physical therapy to progress toward set goals. PLAN FOR NEXT VISIT: continue with gait trainging and balance with use of SPC if pt is transitioning to that. SUBJECTIVE: Pt reports that she is feeling pretty good today. Pt denies any falls. Pt states that she should be transitioning to a single point cane by tuesday ( her goal). Pain: Pain Pain Level: 0 Pain Location: Low Back/Lumbar Spine- Midline Pain Location 2: Shoulder - Left Description 2: Sore Post Treatment Pain Post Treatment Pain Level: No Change Post Treatment Pain Location: Shoulder - Left OBJECTIVE MEASURES WITH LEVEL OF FUNCTION: Increased difficulty performing step up on foam leading with RLE compared to LLE. TREATMENT: Therapeutic Exercise: 1: Scapular retractions 2x10 Skilled Intervention: Patient was educated in proper exercise technique and purpose for exercises. Skilled judgment was provided in selection of appropriate interventions. Correct performance of therapeutic exercises was facilitated with verbal and visual cuing. Neuromuscular Re-Education: 1: Static balance on foam 1x30 seconds 2: step ups on foam with SPC in RUE 1x5 each LE (very challenged when stepping up with RLE comparedto LLE. Discussed support of cane and LLE when leading with LLE.) 3: Static balance on foam with EC 1x14 seconds (Min A provided at gait belt due to reto-lean) 4: NBOS on foam with EO 2x30 seconds Skilled Intervention: Skilled judgment used to assess appropriate program for balance and coordination activity. Ensured patient safety with use of gait belt. Gait Training: Gait Cues: cues given for small steps and cane usage when turning 1: Gait training with 4PC x 150 ft with SBA provided with gait belt donned. Then, gait training with SPC with navigating turns for pt to feel comfortable when transitioning to SPC x 150 ft. (pt voiced feeling unsteady with SPC, but no unsteadiness noted from therapist.) Skilled Intervention: Patient was provided contact guard assistance, stand by assist during pre-gait/gait training to prevent falls and insure safety. Facilitated proper gait cycle with the use of verbal and visual cues for correction of gait deviations identified in the objective section above. Gait belt utilized during session for safety. Billing Therapeutic Exercise Treatment Minutes: 2 Neuromuscular Re-Education Treatment Minutes: 15 Gait Training Treatment Minutes: 23 Total Treatment Time Minutes (timed/untimed): 40 Session Start Time : 932 Session Stop Time : 1012 DURGA Worley, PT documented in this encounterDetw[facility]08-23-2023 History of Present illness Narrative* Vera Matthews, PT - 12/29/2022 9:50 AM EDT Episode Visit Count: 11 Therapist That Will Accept/Oversee The Plan Of Care: Vera Matthews Start of Care Date: 11/29/22 Onset Date: 10/30/22 Plan of Care Certification Date: 12/29/22 Next Certification Due Date: 02/02/23 REHABILITATION AND SPORTS THERAPY PHYSICAL THERAPY PROGRESS REPORT PLAN OF CARE UPDATE: Assessment: Georgina Segura demonstrates minimal improvement in walking, lifting, reaching behind back, and reaching overhead. She has progressed toward goals. Patient continues to present with impairments in ADL's, balance, coordination, gait, independence in exercise, overall function, and patient reported outcome measures that interfere with lifting, reaching overhead, reaching behind back, walking . Current prognosis is Good due to: positive past response to therapy, current objective clinical presentation, within-session changes . She will benefit from continued skilled therapy services to meet the updated goals for this plan of care as noted below. Goals for Episode of Care: created on 11/15/22 through 12/27/22 Goals updated on 12/15/2022. Goals updated on 12/29/2022 through 02/02/23 Patient will report no falls. -- MET Improve score on Timed Up and Go Test to < 9 seconds to reflect decreased fall risk. -- PROGRESSING, 14 seconds with quad cane Improve score on 30 Second Chair Stand to 10 repetitions to reflect decreased fall risk. -- PROGRESSING, 8 reps Patient will demonstrate independent and proper use of assisstive device to allow for improved walking quality and safety therefore reducing the risk of falls. -- MET Perform picking items off the floor without LOB. -- MET Patient Goals: reduce fall risk -- PROGRESSING DGI improve score to 19/24 or greater -- PROGRESSING SHOULDER GOALS: Goals for Episode of Care: created on 11/29/22 through 01/10/23 Goals updated on 12/29/2022 through 02/02/2023 Mora in home exercise program. -- MET Patient will decrease pain rating by 2 points to meet minimal clinical important difference for numeric pain rating scale. -- Met Patient will increase active ROM of L shoulder elevation to to 170 degrees or greater without limitation due to pain to allow pt to to improve performance of ADLs. -- PROGRESSING Patient will increase flexibility of bilateral upper trapezius to WNL to improve ability to maintain proper posture, improve mechanics, and decrease pain. -- PROGRESSING, reports tightness with right SB but demonstrates equal AROM bilaterally. Perform reaching behind the back (Left 3rd MCP to L3 AROM IR L shoulder) without pain. -- MET, L2 Patient Goals: reach behind the back, donning UE clothing -- MET Planned Interventions, Frequency, and Duration: 2x/week, 5 weeks Total Number of Visits Planned: 10 Patient to be seen for Therapeutic exercise ([id number]), Neuromuscular re-education ([id number]), Manual therapy ([id number]), Therapeutic activities (39031), Self-custodial management ([id number]), Gait Training ([id number]) PLAN FOR NEXT VISIT: work on ambulation with safe turns, taking smaller steps SUBJECTIVE: Pt reports no new falls. She cut her finger opening a can tuesday. Presents wearing a spinlt on left index finger. Reports shoulder pain with UE movement. Has not used bath tub since fall and has been sponge bathing. 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 Functional Limitations: lifting, reaching overhead, reaching behind back, walking Pain: Pain Pain Level: 0 Pain Location: Low Back/Lumbar Spine- Midline Pain Level 2: (it's just sore.) Pain Location 2: Shoulder - Left Description 2: Sore Post Treatment Pain Post Treatment Pain Level: No Change Post Treatment Pain Location: Low Back/Lumbar Spine- Midline PROMIS Scales Higher is Better 12/20/2022 11/14/2022 Phys Func - Score 39 (moderate dysfunction) 33 (moderate dysfunction) Phys Func - Percentile 14 % 4 % Self-Eff Symptom - Score 44 (Average) 45 (Average) Self-Eff Symptom - Percentile 27 % 31 % T-scores: mean of general population = 50. 5 points is clinically meaningfully difference Percentiles provide an indication of how the patient's score ranks in relation to the general population. Higher percentile rankings indicate better function/quality of life. 50th percentile is the average of the general population and indicates half of respondents had a worse score. OBJECTIVE MEASURES WITH LEVEL OF FUNCTION: UE AROM L Shoulder Flex: 155 Degrees L Shoulder ABduction: 147 Degrees L Shoulder Internal Rotation (Functional): 3rd MCP to L1 L Shoulder External Rotation (Functional): 3rd mCP to C5 Gait Gait: Contact Guard Assistance Gait Device: Quad Cane Gait Deviations: General Deviations General Deviations/Observations: Difficulty changing direction/turning, Hollie decreased, Trunk Control Decreased, Path Deviation, Scissoring of LEs Gait Observation: difficulty with coordination, inconsistent L heel strike with cane contact Functional Performance Test Results 30 Second Chair Stand Test: 9 reps Timed Up and Go (sec): 14 sec Dynamic Gait Index Gait level surface : 2 - Mild impairment- walks 20' uses assist device, slower speed, mild gait deviation Change in gait speed: 2 - Mild impairment- is able to change speed but demonstrates mild gait deviations or no gait deviations but unable to achieve a significant change in velocity, or uses an assistive device Gait and horizontal head turns: 1 - Moderate impairment- performs R/L head turns with moderate change in gait velocity, slows down, staggers but recovers, can continue to walk Gait and vertical head turns: 2 - Mild impairment- performs up/ down head turns smoothly with slight change in gait velocity, minor disruption to smooth gait path or uses assistive device Gait and pivot: 1 - Moderate impairment- turns slowly, requires verbal cueing, requires several small steps following turn and stop Step over obstacle: 2 - Mild impairment- is able to step over box, but must slow down and adjust steps to clear box Step around obstacle: 2 - Mild impairment- able to step around both cones, must slow down and adjust steps to clear cones Steps: 2 - Mild impairment- alternating feet, must use rail Dynamic Gait Index Total: 14 TREATMENT: Therapeutic Exercise: 1: Scapular retraction 1x20 2: Scapular circles 1x10 CW & CCW (Pt. reports decreased pain after completion) 3: 30 second sit to stand 9 reps with use of arm rest Skilled Intervention: Patient was educated in proper exercise technique and purpose for exercises. Reviewed and educated patient on additions/changes for home exercise program as above (*). Skilled judgment was provided in selection of appropriate interventions. Correct performance of therapeutic exercises was facilitated with verbal and visual cuing. Neuromuscular Re-Education: 1: DGI 2: TUG 2 trials requires cues for correct completion 14 sec with quad cane and SBA to CGA, unsteadiness with turn Skilled Intervention: Skilled judgment used to assess appropriate program for balance and coordination activity. Ensured patient safety with use of gait belt. Gait Training: Gait Cues: cues given for small steps and cane usage when turning 1: Gait training with 4PC x 160 ft with CGA provided at gait belt Skilled Intervention: Patient was provided contact guard assistance during pre- gait/gait training to prevent falls and insure safety. Facilitated proper gait cycle with the use of verbal, visual, and tactile cues for correction of gait deviations identified in the objective section above. Gait belt utilized during session for safety. Skilled judgment used to assess selection and proper use of assistive device. Education provided to patient regarding the proper sequence for stair and obstacle negotiation. Self-Group Home Management: 1: disscused benefits of using a non slip mat on bath tub floot 2: disscussed importance of taking slow steps and using cane while turning 3: disscussed TUG, DGI , and 30 sec sit to stand scores and how they relate to reduced fall risk Skilled Intervention: Skilled judgment in the selection of proper modification for activity of daily living/home management based on clinical presentation, deficits, and needs. Educated the patient regarding recommendations to facilitate compliance. Activity progression based on professional judgement. Reviewed and educated patient on additions/changes for home program as noted above with an (*). Billing Therapeutic Exercise Treatment Minutes: 10 Neuromuscular Re-Education Treatment Minutes: 20 Self-Care/Home Management Treatment Minutes: 5 Gait Training Treatment Minutes: 10 Total Treatment Time Minutes (timed/untimed): 45 Session Start Time : 0950 Session Stop Time : 1035 Vera Matthews PT documented in this encounterDet[facility] History of Present illness Narrative* Vera Matthews PT - 12/27/2022 8:05 AM EDT Episode Visit Count: 10 Therapist That Will Accept/Oversee The Plan Of Care: Vera Matthews Start of Care Date: 11/29/22 Onset Date: 10/30/22 Plan of Care Certification Date: 12/15/22 Next Certification Due Date: 01/19/23 Patient Identified by Name and Date of : Yes REHABILITATION AND SPORTS THERAPY PHYSICAL THERAPY TREATMENT NOTE ASSESSMENT: Georgina Segura tolerated the session with fatigue and no issues. She demonstrated improvements in alt tapping on BOSU. The patient will continue to benefit from ongoing skilled physical therapy to progress toward set goals. PLAN FOR NEXT VISIT: PN SUBJECTIVE: Pt reports that she was turning in the bath tub and lost her balance and she fell and hit her L side. Bruising on L lateral hip and L shoulder is sore. Pt states that she may try SPC at home versus using her quad cane. Pain: Pain Pain Level: 0 Pain Location: Low Back/Lumbar Spine- Midline Pain Location 2: Shoulder - Left Description 2: Sore Post Treatment Pain Post Treatment Pain Level: No Change Post Treatment Pain Location: Low Back/Lumbar Spine- Midline OBJECTIVE MEASURES WITH LEVEL OF FUNCTION: UE AROM L Shoulder Flex: 75 Degrees (painful) L Shoulder ABduction: 95 Degrees TREATMENT: Therapeutic Exercise: 1: SciFit level 2, 1:1 throughout, subjective collected, seat 12 Skilled Intervention: Patient was educated in proper exercise technique and purpose for exercises. Skilled judgment was provided in selection of appropriate interventions. Correct performance of therapeutic exercises was facilitated with verbal and visual cuing. Manual Therapy: 1: STM to L scapula and surrounding musculature x 8 minutes Skilled Intervention: Manual skills to improve joint mobility, ROM, and decrease pain. Utilized anatomy knowledge of the therapist, and assessment of patient's response to intervention. Neuromuscular Re-Education: 1: Alt taps on BOSU without UE support 3x10 alt. 2: step ups on foam with quad cane in RUE for support 2x10 B Skilled Intervention: Skilled judgment used to assess appropriate program for balance and coordination activity. Ensured patient safety with use of gait belt. Gait Trainin: Gait training with use of SPC x 100 ft with CGA provided at gait belt. Skilled Intervention: Patient was provided contact guard assistance during pre- gait/gait training to prevent falls and insure safety. Facilitated proper gait cycle with the use of verbal cues for correction of gait deviations identified in the objective section above. Gait belt utilized during session for safety. Billing Therapeutic Exercise Treatment Minutes: 5 Manual TherapyTreatment Minutes: 8 Neuromuscular Re-Education Treatment Minutes: 19 Gait Training Treatment Minutes: 8 Total Treatment Time Minutes (timed/untimed): 40 Session Start Time : 0800 Session Stop Time : 0840 DURGA Worley PT documented in this encounterDet[facility]08-20-2023 Miscellaneous Notes* Addendum Note - Anna Fernando APRN.CNP - 12/26/2022 10:51 AM EDTAddended by: ANNA FERNANDO on: 12/26/2022 10:51 AM Modules accepted: Orders documented in this encounterDetwiler [facility]08-20-2023 Instructions* Patient Instructions* Anna Fernando APRN.CNP - 12/26/2022 10:14 AM EDT - Keep the area clean and dry -Clean with soap and water . Apply mupirocin ointment 2 times a day. -Tylenol or Ibuprofen for discomfort -Observe area for signs of infection: redness, warmth, foul odor, drainage or increase in discomfort. Call you primary care physician if this occurs. -2 sutures placed in the finger laceration -Return for suture removal in 10-14 days documented in this encounterDetwiler [facility]08-20-2023 History of Present illness Narrative* Anna Fernando APRN.CNP - 12/26/2022 10:02 AM EDT Images from the original note were not included. Subjective The history is provided by the patient. No director speech language was used. HPI Georgina Segura is a 77 year old female who presents today for CC of laceration of left distal ring finger when opening a metal can. This happened about 15 min ago. She has not used any treatment. Last tetanus was 2021. BP 128/78 Pulse 105 Temp 37.2 C (98.9 F) (Tympanic) Resp 18 Wt 81.1 kg (178 lb 12.8 oz) SpO2 95% BMI 31.67 kg/m Social History Tobacco Use Smoking status: Never Smokeless tobacco: Never Substance Use Topics Alcohol use: No Drug use: No PAST MEDICAL HISTORY Diagnosis Date Asthma 03/11/2010 Diarrhea Elevated CK 04/26/2012 Hyperlipidemia 04/26/2012 Impingement syndrome of right shoulder 10/11/2016 Neurogenic bladder, NOS Other and unspecified hyperlipidemia Other forms of migraine Overactive bladder 02/12/2009 Primary localized osteoarthrosis, lower leg Rotator cuff syndrome 02/12/2009 Situational depression 05/31/2018 Unspecified sleep apnea Urinary incontinence 03/11/2010 I have confirmed and edited as necessary, the [facility] Review of Systems Constitutional: Negative for chills and fever. Musculoskeletal: Negative for joint pain and myalgias. Skin: Negative for itching and rash. Laceration left distal dorsal finger. All other systems reviewed and are negative. Objective Physical Exam Vitals and nursing note reviewed. Pulmonary: Effort: Pulmonary effort is normal. Musculoskeletal: Right hand: Normal. Left hand: Laceration present. No swelling, deformity, tenderness or bony tenderness. Normal range of motion. Normal strength. Normal sensation. There is no disruption of two-point discrimination. Normal capillary refill. Normal pulse. Hands: Skin: General: Skin is warm and dry. Neurological: Mental Status: She is alert and oriented to person, place, and time. Psychiatric: Mood and Affect: Affect normal. LAC REPAIR Date/Time: 12.26.2022: Performed by: SHIRLEY Rodríguez Consent: Verbal consent obtained. Consent given by: Patient Patient understanding: patient states understanding of the procedure being performed Body area: Location details:distal 4th left finger dorsal Laceration length: 1 cm Foreign bodies: none Tendon involvement: npne Nerve involvement: none Anesthesia: local infiltration Local anesthetic: lbupivacaine .25% without epinephrine Anesthetic total: 2 ml Preparation: Patient was prepped and draped in the usual sterile fashion. Irrigation solution: saline Irrigation method: lavage Amount of cleaning: extensive Skin closure: 4-0 Ethilon Number of sutures: 2 Technique: simple Approximation: close Approximation difficulty: simple Dressing: antibiotic ointment and pressure dressing, applied finger splint Patient tolerance: Patient tolerated the procedure well with no immediate complications UNIVERSAL PROTOCOL / SAFETY CHECKLIST Procedure to be Performed: SHIRLEY Rodríguez Sign In: A Moment of CARE was completed. Personnel directly involved with the procedure wore the appropriate PPE (Personal Protective Equipment). No special equipment needed. Patient/Surrogate Stated/Verified: PATIENT VERIFIED(optional for EMERGENT procedures): Patient name, Date of , Relevant allergies, and The intended procedure Time Out Communication: Intended patient and procedure match the source documents. Consent documented and matches the intended procedure. No correct side/site applicable for marking and visibility. Sign Out: SIGN OUT (optional for EMERGENT procedures): No specimen collected. All instruments, equipment, possible retained foreign bodies accounted for. Post-procedure follow-up management communicated and Plan of Care Visit completed when applicable. ASSESSMENT/PLAN: 1. Laceration of left index finger without foreign body without damage to nail, initial encounter -ICD9: 883.0, ICD10: S61.211A -2 sutures placed in the [id number] finger laceration -Monitor for signs of infection -Return for suture removal in 10-14 days -Return for re-eval if any signs or symptoms of infection. Diagnosis and treatment plan were discussed and questions were answered to the patient's satisfaction. Pt acknowledged understanding of concepts and follow up plan. Specific signs and symptoms that would indicate the need for higher level of care were discussed indetail warranting prompt ER evaluation. Anna Fernando 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 documented in this encounterDetwiler [facility]08-07-2023 History of Present illness Narrative* Vera Matthews, PT - 12/13/2022 9:40 AM EDT Episode Visit Count: 6 Therapist That Will Accept/Oversee The Plan Of Care: Vera Matthews Start of Care Date: 11/29/22 Onset Date: 10/30/22 Plan of Care Certification Date: 11/29/22 Next Certification Due Date: 01/03/23 REHABILITATION AND SPORTS THERAPY PHYSICAL THERAPY TREATMENT NOTE ASSESSMENT: Georgina Segura tolerated the session with increased symptoms. She demonstrated improvements in low back pain reported following lumbar flexion based exercises, suggesting a flexion directional preference. The patient will continue to benefit from ongoing skilled physical therapy to progress toward set goals. PLAN FOR NEXT VISIT: PN for falls/balance including TUG test. Flexion directional preference HEP. SUBJECTIVE: Pt. unable to check in. it help desk analyst notified after pt. waited 10 minutes. Pt. reports generalized soreness which she attributes to the rain today. She admits she only does the HEP 1x/day. When asked only once daily, she reponds laziness. Denies falls since last visit Pain: Pain Pain Level: 5 Pain Location: Low Back/Lumbar Spine- Midline Description: Sore Pain Level 2: 5 Pain Location 2: Shoulder - Left Description 2: Sore Post Treatment Pain Post Treatment Pain Level: 4 Post Treatment Pain Location: Low Back/Lumbar Spine- Midline Post Treatment Pain Description: Sore Post Treatment Symptoms: denies shoulder pain at end of visit OBJECTIVE MEASURES WITH LEVEL OF FUNCTION: TREATMENT: Therapeutic Exercise: 1: seated lumbar flexion 2x10 (no change) 2: *supine S KTC 3x30 sec each side (no change) 3: supine 55 cm physioball TA BUE press down activation, 2x15 4: supine 55 cm physioball rolling, BLE KTC 2x20 (reports 4/10 low back pain following lumbar flexion based exercises, 0/10 shoulder pain) Skilled Intervention: Patient was educated in proper exercise technique and purpose for exercises. Reviewed and educated patient on additions/changes for home exercise program as above (*). Skilled judgment was provided in selection of appropriate interventions. Provided written instruction for home exercise program to facilitate proper performance and compliance. Correct performance of therapeutic exercises was facilitated with verbal, visual, and tactile cuing. Educated patient on rationale for performing exercises in regards to decreasing fatigue , increase ease of ADL, and ROM and function . Patient education as noted. Billing Therapeutic Exercise Treatment Minutes: 30 Total Treatment Time Minutes (timed/untimed): 30 Session Start Time : 939 Session Stop Time : 0 Vera Matthews PT documented in this encounterDetw[facility]08-02-2023 History of Present illness Narrative* Vera Matthews PT - 12/08/2022 2:42 PM EDT Episode Visit Count: 5 Therapist That Will Accept/Oversee The Plan Of Care: Vera Matthews Start of Care Date: 11/29/22 Onset Date: 10/30/22 Plan of Care Certification Date: 11/29/22 Next Certification Due Date: 01/03/23 Patient Identified by Name and Date of : Yes REHABILITATION AND SPORTS THERAPY PHYSICAL THERAPY TREATMENT NOTE ASSESSMENT: Georgina Segura tolerated the session with fatigue and expected muscle soreness. She demonstrated improvements in endurance with exercise. The patient will continue to benefit from ongoing skilled physical therapy to progress toward set goals. PLAN FOR NEXT VISIT: Continue with L shoulder ROM and strengthening as tolerated. SUBJECTIVE: Subjective: Pt reports that she just got done getting a massage prior to therapy today,her muscles were sore but she is in pretty good shape now. Pt reports that she fell going down the sidewalk to the parking lot after last therapy session and got scrapes on her elbows. States there were a lot of people and she was trying to navigate around them, 3 people helped her up. Pain: Pain Pain Level: 0 Pain Location: Shoulder - Left Description: Sore Pain Level 2: 0 Pain Location 2: Low Back/Lumbar Spine- Midline Description 2: Sore Post Treatment Pain Post Treatment Pain Level: No Change Post Treatment Pain Location: Low Back/Lumbar Spine- Midline, Shoulder - Left OBJECTIVE MEASURES WITH LEVEL OF FUNCTION: UE AROM L Shoulder Flex: 155 Degrees L Shoulder ABduction: (fatigue, but not painful) TREATMENT: Therapeutic Exercise: 1: 5 min SciFit level 1, 1:1 throughout, subjective collected for warm up 2: Standing wand IR behind back (broken up into 2 movements) 2x10 each 3: B scapular retractions 2x10 4: L shoulder AROM reaching for numbers overhead #1-4 5x, pt. denies pain 5: AROM shoulder flexion 2x5 6: STS 2x10 7: Ball on wall CW and CCW 2x10 each direction 8: Numbers on wall #1-5, x5 rounds 9: seated UT stretch 3x30 sec each side Skilled Intervention: Patient was educated in proper exercise technique and purpose for exercises. Skilled judgment was provided in selection of appropriate interventions. Correct performance of therapeutic exercises was facilitated with verbal and visual cuing. Billing Therapeutic Exercise Treatment Minutes: 42 Total Treatment Time Minutes (timed/untimed): 42 Session Start Time : 1442 Session Stop Time : 1525 DURGA Worley PT documented in this encounterDetw[facility]07-28-2023 Miscellaneous Notes* Telephone Encounter - Ashley SotoSHAN - 12/03/2022 8:41 AM EDT Patient has been identified by name and date of : Yes Patient phones for refill(s): Requested Prescriptions Pending Prescriptions Disp Refills donepezil (ARICEPT) 10 mg tablet 90 tablet 1 Sig: Take 1 tablet by mouth daily at bedtime. Date of last office visit in primary care: [facility] 11/23/22 02/16/23 Last 2 Encounter Wt Readings: Date: Wt: 11/23/2022 79.3 kg (174 lb 12.8 oz) 10/11/2022 77.6 kg (171 lb) Please advise. Thank you. SHAN Enamorado documented in this encounterDetwiler [facility]07-28-2023 Miscellaneous Notes* Telephone Encounter - Ashley Soto OCCA - 12/03/2022 8:39 AM EDT Patient has been identified by name and date of : YesPatient phones for refill(s): Requested Prescriptions Pending Prescriptions Disp Refills FLUoxetine (PROZAC) 40 mg capsule 90 capsule 1 Sig: Take 1 capsule by mouth once daily. Date of last office visit in primary care: [facility] 11/24/31 02/16/23 Last 2 Encounter Wt Readings: Date: Wt: 11/23/2022 79.3 kg (174 lb 12.8 oz) 10/11/2022 77.6 kg (171 lb) Please advise. Thank you. SHAN Enamorado documented in this encounterDetwiler [facility]07-28-2023 Miscellaneous Notes* Telephone Encounter - Ashley Soto OCCA - 12/03/2022 8:37 AM EDT Patient has been identified by name and date of : Yes Patient phones for refill(s): Requested Prescriptions Pending Prescriptions Disp Refills levothyroxine (LEVOXYL) 25 mcg tablet 90 tablet 0 Sig: Take 1 tablet by mouth once daily. Take on empty stomach. For Thyroid Date of last office visit in primary care: [facility] 11/23/22 02/16/23 Last 2 Encounter Wt Readings: Date: Wt: 11/23/2022 79.3 kg (174 lb 12.8 oz) 10/11/2022 77.6 kg (171 lb) Please advise. Thank you. SHAN Enamorado documented in this encounterDetwiler [facility]07-26-2023 History of Present illness Narrative* Vera Matthews, PT - 12/01/2022 12:00 PM EDT Episode Visit Count: 4 Therapist That Will Accept/Oversee The Plan Of Care: Vera Matthews Start of Care Date: 11/29/22 Onset Date: 10/30/22 Plan of Care Certification Date: 11/29/22 Next Certification Due Date: 01/03/23 REHABILITATION AND SPORTS THERAPY PHYSICAL THERAPY TREATMENT NOTE ASSESSMENT: Georgina Segura tolerated the session with increased symptoms. She demonstrated improvements in L shoulder IR AROM to equal of that of the RUE. Pt. Continues to have L shoulder soreness. The patient will continue to benefit from ongoing skilled physical therapy to progress toward set goals. PLAN FOR NEXT VISIT: add scapular isometrics to HEP SUBJECTIVE: Patient Reason for Visit: Pt. did her HEP with the exception of the towel IR stretch sofar this morning. Pain: Pain Pain Level: 6 Pain Location: Shoulder - Left Description: Sore Frequency: With movement Additional Pain Information : Location 2 Pain Level 2: 2 Pain Location 2: Low Back/Lumbar Spine- Midline Description 2: Aching Post Treatment Pain Post Treatment Pain Level: 6 Post Treatment Pain Location: Shoulder - Left OBJECTIVE MEASURES WITH LEVEL OF FUNCTION: TREATMENT: Therapeutic Exercise: 1: B scapular circles fwd 10x, rev 10x 2: B scapular retraction 1x15 3: Towel L shoulder IR stretch 3x30 sec 4: active R & L shoulder IR -- 3rd MCP to L3, equal BUE AROM 5: BUE shoulder elevation towel AAROM passthrough 2x10 6: sit <> stand without UE support 5x 7: seated lumbar flexion 2x10 8: L shoulder AROM reaching for numbers overhead #1-4 5x, pt. denies pain 9: B shoulder ER towel pull apart 5x10 sec holds 10: seated UT stretch 3x30 sec each side 11: A-Z x26 letters (lost track 2x. and required cues of which letter shes on) - denies pain Skilled Intervention: Patient was educated in proper exercise technique and purpose for exercises. Reviewed and educated patient on additions/changes for home exercise program as above (*). Skilled judgment was provided in selection of appropriate interventions. Correct performance of therapeutic exercises was facilitated with verbal, visual, and tactile cuing. Educated patient on rationale for performing exercises in regards to decreasing fatigue , increase ease of ADL, and ROM and function . Patient education as noted. Self-Group Home Management: 1: *discussed use of heat or ice, correct parameters Skilled Intervention: Skilled judgment in the selection of proper modification for activity of daily living/home management based on clinical presentation, deficits, and needs. Provided written instruction for activities of daily living techniques to facilitate proper performance and compliance. Reviewed patient specific diagnosis in relation to activities of daily living/home management. Activity progression based on professional judgement. Billing Therapeutic Exercise Treatment Minutes: 35 Self-Care/Home Management Treatment Minutes: 5 Total Treatment Time Minutes (timed/untimed): 25 Session Start Time : 1155 Session Stop Time : 1135 Vera Matthews PT documented in this encounterDetwiler [facility]07-21-2023 History of Present illness Narrative* Vera Matthews PT - 11/26/2022 2:55 PM EDT Episode Visit Count: 3 Therapist That Will Accept/Oversee The Plan Of Care: Vera Matthews Start of Care Date: 11/15/22 Onset Date: 10/08/22 Plan of Care Certification Date: 11/15/22 Next Certification Due Date: 12/20/22 Patient Identified by Name and Date of : Yes REHABILITATION AND SPORTS THERAPY PHYSICAL THERAPY TREATMENT NOTE ASSESSMENT: Georgina Segura tolerated the session with decreased endurance, fatigue, and expected muscle soreness. She demonstrated difficulty with STS due to quad fatigue. The patient will continue to benefit from ongoing skilled physical therapy to progress toward set goals. PLAN FOR NEXT VISIT: Continue with LE functional strengthening. Work on gait as needed. SUBJECTIVE: Patient Reason for Visit: Pt presents with quad cane in RUE this visit, questioning if it is adjusted properly. Pt states that she is feeling pretty good today. Pt reports that she went to sit on the bed and sat too close to the edge and slid right off, hitting her R elbow, has abrasionnow, unsure what she hit it on. Pt states LLE is sore today. Pain: Pain Pain Level: (no value given) Pain Location: Leg - Left, Shoulder - Left Description: Sore OBJECTIVE MEASURES WITH LEVEL OF FUNCTION: Good sequencing noted after verbal cues given for ambulation with quad cane. TREATMENT: Therapeutic Exercise: 1: 5 min SciFit level 1, 1:1 throughout, subjective collected for warm up 2: *STS 1x10 without use of UE, 1x5 with wider JOHN and use of 1 UE. (decreased eccentric control with descent into chair. * use B UE for HEP 1-2 rounds of 5.) 3: *LAQ 1x10 B Skilled Intervention: Patient was educated in proper exercise technique and purpose for exercises. Reviewed and educated patient on additions/changes for home exercise program as above (*). Skilled judgment was provided in selection of appropriate interventions. Provided written instruction for home exercise program to facilitate proper performance and compliance. Correct performance of therapeutic exercises was facilitated with verbal and visual cuing. Gait Training: Pre gait training: Correct adjustment of quad cane Distance (feet): 300 ft with quad cane Gait Cues: Cueing for cane to go with LLE, pt using quad cane in RUE. Assistive Device: Quad cane Assist Level: SBA Skilled Intervention: Patient was provided stand by assist during pre-gait/gait training to preventfalls and insure safety. Facilitated proper gait cycle with the use of verbal and visual cues for correction of gait deviations identified in the objective section above. Billing Therapeutic Exercise Treatment Minutes: 23 Gait Training Treatment Minutes: 17 Total Treatment Time Minutes (timed/untimed): 40 Session Start Time : 1450 Session Stop Time : 1530 DURGA Worley PT documented in [facility] History of Present illness Narrative* Vera Matthews PT - 11/23/2022 1:33 PM EDT Episode Visit Count: 2 Therapist That Will Accept/Oversee The Plan Of Care: Vera Matthews Start of Care Date: 11/15/22 Onset Date: 10/08/22 Plan of Care Certification Date: 11/15/22 Next Certification Due Date: 12/20/22 REHABILITATION AND SPORTS THERAPY PHYSICAL THERAPY TREATMENT NOTE ASSESSMENT: Georgina Segura tolerated the session with fatigue. She demonstrated difficulty with heel strike and toe push off with gait training today, which improved with use of SC . The patient will continue to benefit from ongoing skilled physical therapy to progress toward set goals. Current Frequency: 2x/week PLAN FOR NEXT VISIT: pt. to bring SC. Shoulder evaluation next visit with PT 11/29/22. Functional strengthening of LLE. SUBJECTIVE: Patient Reason for Visit: Pt. has an order for her shoulder. She has a PT order for it.Pt. has fallen 1x time in the house. She did not bring her cane today. Pain: Pain Pain Level: 5 Pain Location: Shoulder - Left Description: Aching Frequency: With movement OBJECTIVE MEASURES WITH LEVEL OF FUNCTION: Dynamic Gait Index Gait level surface : 1 - Moderate impairment- walks 20', slow speed, abnormal gait pattern, evidence for imbalance Change in gait speed: 2 - Mild impairment- is able to change speed but demonstrates mild gait deviations or no gait deviations but unable to achieve a significant change in velocity, or uses an assistive device Gait and horizontal head turns: 1 - Moderate impairment- performs R/L head turns with moderate change in gait velocity, slows down, staggers but recovers, can continue to walk Gait and vertical head turns: 2 - Mild impairment- performs up/ down head turns smoothly with slight change in gait velocity, minor disruption to smooth gait path or uses assistive device Gait and pivot: 2 - Mild impairment- pivot turns safely in >3 sec, stops, no loss of balance Step over obstacle: 1 - Moderate impairment- is able to step over box, but must stop then step over, may require verbal cueing Step around obstacle: 1 - Moderate impairment- able to clear cones, but must significantly slow speed or requires verbal cueing Steps: 1 - Moderate impairment- 2 feet to a stair, must use rail (bilateral hand rails, reciprocal ascending, non-reciprocal descending) Dynamic Gait Index Total: 11 TREATMENT: Therapeutic Exercise: 1: *5 min SciFit level 1, 1:1 throughout, subjective collected for warm up Skilled Intervention: Skilled judgment was provided in selection of appropriate interventions. Neuromuscular Re-Education: 1: DGI without AD, 04/01 Skilled Intervention: Education in proprioceptive/kinesthetic awareness during DGI testing. Ensured patient safety with use of gait belt and use of SC Gait Training: Pre gait training: correct adjustment and use of SC reviewed with pt. using clinic's cane Distance (feet): 100' without AD, 100' + 100' with SC Gait Cues: heel strike and toe push off each side, more difficulty with heel strike LLE and difficulty with clearing toes to swing due to limited knee/hip flexion Assistive Device: SC Assist Level: CGA Skilled Intervention: Patient was provided contact guard assistance during pre- gait/gait training to prevent falls and insure safety. Facilitated proper gait cycle with the use of verbal, visual, and tactile cues for correction of gait deviations identified in the objective section above. Gait belt utilized during session for safety. Skilled judgment used to assess selection, proper sizing, and proper use of assistive device. Billing Therapeutic Exercise Treatment Minutes: 5 Neuromuscular Re-Education Treatment Minutes: 15 Gait Training Treatment Minutes: 20 Total Treatment Time Minutes (timed/untimed): 40 Vera Matthews PT documented in this encounterDet[facility]07-[facility] History of Present illness Narrative* Dinah Melgar MD - 11/23/2022 8:48 AM EDT Patient presents with: Follow Up HPI: Patient presents today for office visit for follow up. Last seen on 10/11/22 for ER F/U . Discussed chronic cough that she's had for close to a year. Cough has gotten worse since beginning of October. CXR on 10/11/22 normal. Consider Pulmonary workup. Even chronic cough seems to be better. No current heartburn. Cough better today. Still coughing but not as much as she was. Not using her rescue inhaler. Taking Zyrtec OTC. Denies chest pain and shortness of breath Declines further work up a this point. Still seeing neurologist and physical therapy. Did have a fall recently again. Is still not using walker or cane. Discussed concerns regarding safety. Has noted some issues with her left shoulder. Has issues with range of motion. Is slightly sore. Does not recall direct injury but has had several fall. No numbness Feels the shoulder is weak Has been since the one fall in October. See previous ov note: HOSPITAL/ER FOLLOW UP: Reason for visit: fall Which facility: [facility] Date of visit: 10/08/22 Diagnosis: head injury Testing done: CT brain Treatment given: observation. Ct showed no acute changed Current symptoms: dizzy. Has mild lightheadedness today. No severe headache. No numbness or tingling. No changes in speech or vision. No no chest pain or palpitations. No new memory issues. No nausea or vomiting. Blood pressure was elevated in ER. States daughter ([employer] SUPERVISOR) took BP yesterday and was back to normal. Saw neuro and is to be having EMG of lower extremities and also do PT for balance. Has walker and cane but does not use them. Had discussion regarding safety issues. Has had a chronic cough for close to a year. Has had worse cough since the 2nd. No fever or chills. No new sore throat. No new shortness of breath. No new gi issues. No new heartburn. Is on meds. See recent plan from neuro ov: EMG - PT for imbalance - Sleep consult for untreated NAYA - Labs for cognitive impairment: TSH normal, B12 to be ordered once EMG results in case neuropathy labs need to be added - MEDICATIONS: Current Outpatient Medications Medication Sig levothyroxine (LEVOXYL) 25 mcg tablet Take 1 tablet by mouth once daily. Take on empty stomach. ForThyroid famotidine (PEPCID) 40 mg tablet Take 1 tablet by mouth once daily. ezetimibe (ZETIA) 10 mg tablet Take 1 tablet by mouth once daily. pantoprazole DR (PROTONIX) 40 mg tablet Take 1 tablet by mouth once daily. FLUoxetine (PROZAC) 40 mg capsule Take 1 capsule by mouth once daily. donepezil (ARICEPT) 10 mg tablet Take 1 tablet by mouth daily at bedtime. mirabegron (MYRBETRIQ) 50 mg Tb24 Take 25 mg by mouth once daily. albuterol HFA (PROVENTIL HFA, VENTOLIN HFA) 90 mcg/actuation inhaler Inhale 2 Puffs as instructed every 4 hours as needed. acetaminophen (TYLENOL 8 HOUR ORAL) Take 500 mg by mouth twice daily. No current facility-administered medications for this visit. ALLERGIES: ALLERGIES Allergen Reactions Vioxx [Rofecoxib] Zocor [Simvastatin] Other: See Comments elevated CPK PAST MEDICAL HISTORY Diagnosis Date Asthma 03/11/2010 Diarrhea Elevated CK 04/26/2012 Hyperlipidemia 04/26/2012 Impingement syndrome of right shoulder 10/11/2016 Neurogenic bladder, NOS Other and unspecified hyperlipidemia Other forms of migraine Overactive bladder 02/12/2009 Primary localized osteoarthrosis, lower leg Rotator cuff syndrome 02/12/2009 Situational depression 05/31/2018 Unspecified sleep apnea Urinary incontinence 03/11/2010 PAST SURGICAL HISTORY Procedure Laterality Date ADENOIDECTOMY PRIMARY <AGE 10 Adenoidectomy APPENDECTOMY COLONOSCOPY W/BIOPSY SINGLE/MULTIPLE 06/21/11 DILATION & CURETTAGE DX&/THER NONOBSTETRIC Dilation & curettage LAPAROSCOPY SURG CHOLECYSTECTOMY 07-15-06 Cholecystectomy, lap PAST SURGICAL HISTORY OF N/A 2016 urinary implant device TONSILLECTOMY PRIMARY/SECONDARY <AGE 10 Tonsillectomy VAGINAL HYSTERECTOMY UTERUS 250 GM/< Hysterectomy, vaginal FAMILY HISTORY Problem Relation Age of Onset other (dementia [Other]) Father Heart Father Tremor Father Heart Mother Heart Brother Tremor Daughter Tremor Son Social History Tobacco Use Smoking status: Never Smokeless tobacco: Never Substance Use Topics Alcohol use: No Drug use: No Reviewed current medications, allergies, past medical history, surgical history, family history andsocial history today. REVIEW OF SYSTEMS All other reviewed and negative other than HPI. HEALTH MAINTENANCE: Reviewed health maintenance issues today and recommended the following in detail. There are no preventive care reminders to display for this patient. VITALS: BP 138/74 Pulse 93 Ht 160 cm (5' 3) Wt 79.3 kg (174 lb 12.8 oz) SpO2 93% BMI 30.96 kg/m Last 4 Encounter Wt Readings: Date: Wt: 10/11/2022 77.6 kg (171 lb) 10/06/2022 80.6 kg (177 lb 11.2 oz) 08/04/2022 76.2 kg (168 lb) 07/14/2022 77.6 kg (171 lb) PHYSICAL EXAMINATION: General appearance: Well appearing, alert, in no acute distress, well-hydrated, well nourished. Skin: Skin color, texture, turgor normal, no suspicious rashes or lesions Head: Normocephalic, no masses, lesions, tenderness or abnormalities Lungs: Lungs clear to auscultation. No wheezing, rhonchi, rales Heart: RRR without murmur, gallop, or rubs. No ectopy Abdomen: Normal abdominal exam, Abdomen soft, non-tender. Bowel sounds normal. No masses, organomegaly Shoulder. Slightly decreased abduction. Positive empty can sign. Normal sensation. No deformity. ASSESSMENT/PLAN: 1. Gastroesophageal reflux disease without esophagitis - ICD9: 530.81, ICD10: K21.9 (primary diagnosis) - continue meds. Call if any issues. 2. Chronic cough - ICD9: 786.2, ICD10: R05.3 - call if recurs. Consider pfts and pulmonary eval. 3. Mild intermittent asthma, uncomplicated - ICD9: 493.90, ICD10: J45.20 - stable. 4. Imbalance - ICD9: 781.2, ICD10: R26.89 - encouraged use of walker or cane. Continue therapy and follow up with neuro 5. Acute pain of left shoulder - ICD9: 719.41, ICD10: M25.512 - ice prn. Add to her physical therapy regimen. Consider ortho if issues worsen or continues. - XR SHOULDER GENERAL 3V OR MORE AP/TRUE AP/OTHER LEFT - CONSULT TO PHYSICAL THERAPY Dinah Melgar MD documented in this [facility]Det[facility]07-[facility] History of Present illness Narrative* Vera Matthews, PT - 11/15/2022 8:06 AM EDT Episode Visit Count: 1 Therapist That Will Accept/Oversee The Plan Of Care: Vera Matthews Start of Care Date: 11/15/22 Onset Date: 10/08/22 Plan of Care Certification Date: 11/15/22 Next Certification Due Date: 12/20/22 Patient Identified by Name and Date of : Yes REHABILITATION AND SPORTS THERAPY PHYSICAL THERAPY EVALUATION PLAN OF CARE: Assessment: Georgina Segura presents with diagnosis of balance disorder, falls frequently, and numbness and tingling of both feet that interferes with rising from a chair, walking . She presents withimpairments in ADL's, balance, gait, independence in exercise, overall function, patient reported outcome measures, and strength. PROMIS (Patient-Reported Outcomes Measurement Information System) scores were reviewed and physical function domain and self efficacy domain identified as a rehabilitation concern. Prognosis for therapy is Good due to: good support system/ coping skills . She will benefit from skilled therapy services to meet the goals established for this plan of care as noted below. Assessment Fall Risk : Complex at risk Goals for Episode of Care: created on 11/15/22 through 12/27/22 Patient will report no falls. Improve score on Timed Up and Go Test to < 9 seconds to reflect decreased fall risk. Improve score on 30 Second Chair Stand to 10 repetitions to reflect decreased fall risk. Patient will demonstrate independent and proper use of assisstive device to allow for improved walking quality and safety therefore reducing the risk of falls. Perform picking items off the floor without LOB. Patient Goals: reduce fall risk Planned Interventions, Frequency, and Duration: Current Frequency: 2x/week Duration: 6 weeks Total Number of Visits Planned: 12 Planned Treatment Interventions: Therapeutic exercise (50345), Neuromuscular re- education (30113), Manual therapy (57663), Therapeutic activities (50160), Self- custodial management (90029), Gait Training (81169) PLAN FOR NEXT VISIT: pt. instructed to bring SC. continue balance testing, consider FGA or DGI. Complete the 30 sec sit <> stand test Patient demonstrates good understanding of plan of care and treatment. The above goals and plan of care were discussed and agreed upon by patient/family. SUBJECTIVE: Georgina Segura is a 77 year old female seen today for for falls at least once a week. Pt. has been able to get herself up off the floor each fall. Denies recent dizziness, changes in vision, changes in hearing, or lightheadedness at this time or during with her falls. Pt. has a great grandson who lives with her, but he is currenlty in [place]. Grandson has encouraged pt. to use a cane. Pt. uses it intermittently. She owns a FWW. Pt. fell in a parking lot in 10/08/22 and reports thather head was bleeding. She was taken by squad to [facility]. CT negative for acute brain changes. Pt. has been seen by neuro per physicians report. EMG ordered for the BLEs. Denies numbness and tingling in the LEs. Pt. reports she has had imbalance for years denies that it is getting worse, but does admitit isn't getting better. 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 Good support from family. Patient Goals: reduce fall risk Functional Limitations: rising from a chair, walking Prior Level of Function: Independent without limitations Relevant History Past Relevant Medical Conditions: (HTN in ER, pt. reports she doesn't usually have a problem with this) Right or Left Handed: Right Home Environment Equipment Owned: Cane, Walker- Wheeled (pt. has not brought it up from down stairs) Intake Information: Prescription present Previous Treatment: Physical Therapy Falls Interview: Two or more falls in the last year Falls Intervention: Instructed patient on safety and use of assistive device and awareness in regards to falls prevention. Falls History # of falls resulting in an injury in past year: 1 Concussion History of Concussion: No Vestibular Symptoms present for: years Symptom onset: gradual Dizziness: No Imbalance: Yes Imbalance triggered by: Walking Fall Assessment: History of falls Frequency of falls: Weekly When was your most recent fall?: 2 days ago Did the fall occur inside or outside?: inside How did the fall occur?: bending over and standing back up to pick something off the floor Injuries resulting from fall? : head injury October 2022 Dizziness during fall?: no How often do you lose your balance?: intermittently, daily Nausea: denies Motion Sickness: None Headache: No Neck Symptoms: No Jaw Symptoms: No Ear Symptoms: Yes Description: fullness Location: both ears equally Comments: something I've had. Frequency: Constant Hearing Changes: No recent changes Sleep Affected by Symptoms: Not affected by dizziness, not affected by pain History of Syncope: No History of Migraine: Yes Denies: dizziness, headaches, neurological complaints, neuropathy, focal weakness, paresthesia, tremors, visual changes Pain: Pain Pain Level: 5 Pain Location: Shoulder - Left Description: Aching Frequency: With movement Post Treatment Pain Post Treatment Symptoms: no change PROMIS Scales Higher is Better 11/14/2022 Phys Func - Score 33 (moderate dysfunction) Phys Func - Percentile 4 % Self-Eff Symptom - Score 45 (Average) Self-Eff Symptom - Percentile 31 % T-scores: mean of general population = 50. 5 points is clinically meaningfully difference Percentiles provide an indication of how the patient's score ranks in relation to the general population. Higher percentile rankings indicate better function/quality of life. 50th percentile is the average of the general population and indicates half of respondents had a worse score. OBJECTIVE MEASURES WITH LEVEL OF FUNCTION: Mobility Sit To Stand: Modified Independent Stand To Sit: Modified Independent Gait Gait: Supervision Gait Distance (feet): 100 Gait Device: None Gait Deviations: General Deviations General Deviations/Observations: Path Deviation, Step length decreased, Shuffling Gait, Difficulty changing direction/turning, Hollie decreased, Arm swing decreased Functional Performance Test Results Assistive Device: None Timed Up and Go (sec): 24 sec Timed Up and Go - Condition 2 (sec) : 19 Education: Education Learning Preferences: Demonstration, Explanation, Printed Materials, Performance Education Provided: Yes, see treatment interventions for education provided Education Provided To: Patient Education Mode/Type: Demonstration, Explanation/Discussion, Performance Response to Education/Teach Back: States/Identifies, Return Demonstration TREATMENT: PT Treatment Interventions: Self-Group Home Management Evaluation Self-Group Home Management: 1: *encouraged use of AD 2: *instructed pt. to bring SC to clinic next visit 3: *discussed TUG score and fall risk Skilled Intervention: Skilled judgment in the selection of proper modification for activity of daily living/home management based on clinical presentation, deficits, and needs. Educated the patient regarding recommendations and provided written instruction to facilitate compliance. Reviewed patient specific diagnosis in relation to activities of daily living/home management. Activity progression based on professional judgement. Correct performance of home program was facilitated with verbal and visual cueing. Billing * Evaluation Low Complexity: 1 Unit Self-Care/Home Management Treatment Minutes: 15 Total Treatment Time Minutes (timed/untimed): 35 Vera Matthews PT documented in this encounterDet[facility]06-[facility]23 History of Present illness Narrative* William Cohen RT(R) - 10/11/2022 2:50 PM EDT Radiology Service Progress Note PATIENT NAME: Georgina Segura DATE OF SERVICE: October 11, 2022 TIME: 2:57 PM PATIENT IDENTITY VERIFICATION COMPLETED USING TWO (2) IDENTIFIERS: Name and Date of confirmedby patient verbally. FALL SCREENING: Has the patient had 2 falls in the last year or 1 fall with injury or currently using an Ambulatory Assistive Device (Walker, Cane, Wheelchair, Crutches, etc.)? No PATIENT GENDER DATA: Female. status: : No status: NO. PATIENT RELEVANT IMPLANT DATA REVIEWED: Not Applicable RADIOLOGY DEPARTMENT: General X-ray: Exam(s) Completed: Chest X-Ray PERIPHERAL IV DATA: Not applicable SIGNED BY: RT Rell(R) October 11, 2022 2:57 PM documented in this encounterDetw[facility]06-05-2023 History of Present illness Narrative* Dinah Melgar MD - 10/11/2022 2:03 PM EDT Patient presents with: ED Follow-up HPI: Patient presents today for office visit for ER follow up HOSPITAL/ER FOLLOW UP: Reason for visit: fall Which facility: [facility] Date of visit: 10/08/22 Diagnosis: head injury Testing done: CT brain Treatment given: observation. Ct showed no acute changed Current symptoms: dizzy. Has mild lightheadedness today. No severe headache. No numbness or tingling. No changes in speech or vision. No no chest pain or palpitations. No new memory issues. No nausea or vomiting. Blood pressure was elevated in ER. States daughter ([employer] DEPARTMENT SUPERVISOR) took BP yesterday and was back to normal. Saw neuro and is to be having EMG of lower extremities and also do PT for balance. Has walker and cane but does not use them. Had discussion regarding safety issues. Has had a chronic cough for close to a year. Has had worse cough since the 2nd. No fever or chills. No new sore throat. No new shortness of breath. No new gi issues. No new heartburn. Is on meds. See recent plan from neuro ov: EMG - PT for imbalance - Sleep consult for untreated NAYA - Labs for cognitive impairment: TSH normal, B12 to be ordered once EMG results in case neuropathy labs need to be added - MEDICATIONS: Current Outpatient Medications Medication Sig levothyroxine (LEVOXYL) 25 mcg tablet Take 1 tablet by mouth once daily. Take on empty stomach. ForThyroid famotidine (PEPCID) 40 mg tablet Take 1 tablet by mouth once daily. ezetimibe (ZETIA) 10 mg tablet Take 1 tablet by mouth once daily. pantoprazole DR (PROTONIX) 40 mg tablet Take 1 tablet by mouth once daily. FLUoxetine (PROZAC) 40 mg capsule Take 1 capsule by mouth once daily. meloxicam (MOBIC) 7.5 mg tablet Take 1 tablet by mouth once daily. donepezil (ARICEPT) 10 mg tablet Take 1 tablet by mouth daily at bedtime. mirabegron (MYRBETRIQ) 50 mg Tb24 Take 25 mg by mouth once daily. albuterol HFA (PROVENTIL HFA, VENTOLIN HFA) 90 mcg/actuation inhaler Inhale 2 Puffs as instructed every 4 hours as needed. acetaminophen (TYLENOL 8 HOUR ORAL) Take 500 mg by mouth twice daily. No current facility-administered medications for this visit. ALLERGIES: ALLERGIES Allergen Reactions Vioxx [Rofecoxib] Zocor [Simvastatin] Other: See Comments elevated CPK PAST MEDICAL HISTORY Diagnosis Date Asthma 03/11/2010 Diarrhea Elevated CK 04/26/2012 Hyperlipidemia 04/26/2012 Impingement syndrome of right shoulder 10/11/2016 Neurogenic bladder, NOS Other and unspecified hyperlipidemia Other forms of migraine Overactive bladder 02/12/2009 Primary localized osteoarthrosis, lower leg Rotator cuff syndrome 02/12/2009 Situational depression 05/31/2018 Unspecified sleep apnea Urinary incontinence 03/11/2010 PAST SURGICAL HISTORY Procedure Laterality Date ADENOIDECTOMY PRIMARY <AGE 10 Adenoidectomy APPENDECTOMY COLONOSCOPY W/BIOPSY SINGLE/MULTIPLE 06/21/11 DILATION & CURETTAGE DX&/THER NONOBSTETRIC Dilation & curettage LAPAROSCOPY SURG CHOLECYSTECTOMY 07-15-06 Cholecystectomy, lap PAST SURGICAL HISTORY OF N/A 2017 urinary implant device TONSILLECTOMY PRIMARY/SECONDARY <AGE 10 Tonsillectomy VAGINAL HYSTERECTOMY UTERUS 250 GM/< Hysterectomy, vaginal FAMILY HISTORY Problem Relation Age of Onset other (dementia [Other]) Father Heart Father Tremor Father Heart Mother Heart Brother Tremor Daughter Tremor Son Social History Tobacco Use Smoking status: Never Smokeless tobacco: Never Substance Use Topics Alcohol use: No Drug use: No Reviewed current medications, allergies, past medical history, surgical history, family history andsocial history today. REVIEW OF SYSTEMS All other reviewed and negative other than HPI. HEALTH MAINTENANCE: Reviewed health maintenance issues today and recommended the following in detail. There are no preventive care reminders to display for this patient. VITALS: BP 120/80 Pulse 90 Wt 77.6 kg (171 lb) SpO2 96% BMI 30.29 kg/m Last 4 Encounter Wt Readings: Date: Wt: 10/06/2022 80.6 kg (177 lb 11.2 oz) 08/04/2022 76.2 kg (168 lb) 07/14/2022 77.6 kg (171 lb) 05/10/2022 78.8 kg (173 lb 12.8 oz) PHYSICAL EXAMINATION: General appearance: Well appearing, alert, in no acute distress, well-hydrated, well nourished. Skin: Skin color, texture, turgor normal, no suspicious rashes or lesions Head: Normocephalic, no masses, lesions, tenderness or abnormalities Neck: Supple, no adenopath Lungs: Lungs clear to auscultation. No wheezing, rhonchi, rales Heart: RRR without murmur, gallop, or rubs. No ectopy Abdomen: Normal abdominal exam, Abdomen soft, non-tender. Bowel sounds normal. No masses, organomegaly Extremities: No deformities, edema, skin discoloration, clubbing or cyanosis. Good capillary refill. Musculoskeletal: No joint swelling, deformity, or tenderness ASSESSMENT/PLAN: 1. Acute cough - ICD9: 786.2, ICD10: R05.1 (primary diagnosis) - get covid test. Fluids rest. Check chest xray due to chronic cough. Monitor gerd. Consider pulmonary work up. 2. Dementia without behavioral disturbance (HCC) - ICD9: 294.20, ICD10: F03.90 - continue meds. 3. Imbalance - ICD9: 781.2, ICD10: R26.89 - get therapy started. Use cane. Follow up with neurology Dinah Melgar MD documented [facility] Khris Gallardo [facility] October 08, 2022 11:02pm Note Date/Time October 08, 2022 11:02 pm [facility] Medical Records Department [address] [place] [address] Emergency Department Summary 10/08/22 MR#: [id number] Acct: [id number] Name: GEORGINA SEGURA Rep #:[id number] : 1945 77 From: Abe Pinedo DO PCP: Dr. Dinah Melgar MD Status:REG E R Location: ED HPI HPI - Fall History of Present Illness Chief Complaint: Fall Narrative Narrative: 77-year-old female with gait instability presenting after a fall. She states she was walking across a parking lot and misstep with a right foot and fell backwards hitting her head. No LOC. No nausea, vomiting. Patient states this is a chronic issue and she had blood work done this month. She was referred to neurology who stated they wanted her to get into physical therapy and she supposed to have some follow-up testing on her feet as I thought this was part ofthe problem. She denies any extremity pain or injury. She not anticoagulated on any blood thinners. [facility] Medical History Bladder disease Depression Easy bruising Excessive bleeding GERD (gastroesophageal reflux disease) High cholesterol Hypothyroid Non-smoker Overactive bladder PONV (postoperative nausea and vomiting) Wears glasses Home Medications donepezil 10 mg tablet 10 mg PO DAILY MEMORY 06/11/22 [History Last Taken Unknown] famotidine 40 mg tablet 40 mg PO DAILY GERD 06/11/22 [History Last Taken Unknown] fluoxetine 40 mg capsule 40 mg PO DAILY DEPRESSION 06/11/22 [History Last Taken Unknown] levothyroxine 25 mcg tablet (Synthroid) 25 mcg PO DAILY THYROID 06/11/22 [History Last Taken 09/10/22] mirabegron 50 mg tablet,extended release 24 hr (Myrbetriq) 50 mg PO DAILY OAB 06/11/22 [History Last Taken Unknown] pantoprazole 40 mg granules delayed-release for susp in packet 40 mg PO DAILY 06/11/22 [History Last Taken 09/10/22] ciprofloxacin HCl 500 mg tablet (Cipro) 500 mg PO BID #6 tabs 09/10/22 [Rx Last Taken Unknown] Allergy/AdvReac Type Severity Reaction Status Date / Time rofecoxib [From Vioxx] Allergy Unknown Verified 10/08/22 19:32 Surgical History H/O lateral meniscus repair of right knee History of appendectomy History of bladder surgery History of cholecystectomy History of partial hysterectomy Social History Smoking Status: Never smoker substance use type: does not use ROS ROS ED Constitutional Constitutional ED: Denies chills, fever(s) or sweats Eyes Eyes: Denies blurry vision or change in vision ENT ENT ED: Denies ear pain or sore throat Cardiovascular Cardiovascular: Denies chest pain, palpitations or racing heartbeat Respiratory/Chest Respiratory/Chest: Denies cough, dyspnea or sputum Gastrointestinal Gastrointestinal: Denies abdominal pain, constipation, diarrhea, nausea or vomiting Genitourinary Genitourinary ED: Denies dysuria, hematuria or urinary frequency Musculoskeletal Musculoskeletal: Denies arthralgias, myalgias or neck pain Integumentary Reports other Details: Superficial abrasion to the occiput. ; Denies abscess, Abrasions or rash Neurologic Neurologic: Denies headache(s), paresthesias or weakness Psychiatric Psychiatric: Denies anxiety, depression, suicidal ideation or suicidal thoughts Endocrine Endocrinology: Denies polydipsia or polyuria EXAM Physical Exam Const Vital Signs: 10/08/22 19:32 10/08/22 20:47 Temperature 98.8 F Temperature Source Temporal Pulse Rate 99 Respiratory Rate 19 H Respiratory Effort Normal Non-Labored Respiratory Depth Normal Respiratory Pattern Normal Blood Pressure 203/93 H Blood Pressure Mean 129 Pulse Ox 96 98 Oxygen Delivery Method Room Air Room Air Positive well nourished General Appearance ED: NAD HEENT Reports normocephalic HEENT Narrative: 3 cm superficial abrasion to the occiput in the midline. Eyes PERRL and EOMs intact bilaterally Neck full ROM Neck Narrative: No midline spinal tenderness, deformity, step-off. Resp normal respiratory effort and no retractions Cardio regular rate and regular rhythm Neuro oriented x3 and CN's II-XII intact bilaterally Sensorium / Orientation: alert Motor Exam: strength 5/5 throughout Psych mental status grossly normal MDM MDM MDM Narrative Medical decision making narrative: Patient presenting with mechanical fall history. She fell and hit her head. NoLOC. No red flag signs or symptoms. She is on any blood thinners. Has not anyneck pain. CT of the brain was obtained and is negative for acute or cranial findings. Patient counseled on this. He is discharged home in stable condition. Impression: 1. Mechanical fall 2. Closed head injury 3. Superficial scalp abrasion Radiography Diagnostic Testing: Clinical Impression(s) from Imaging Studies Brain CT 10/08/22 22:06 IMPRESSION: 1. No intracranial hemorrhage or depressed calvarial fracture. 2. Senescent changes and hyperattenuating 6 mm third ventricular nodule, similar compared to the prior. Electronically Signed: Ryland Grimes MD at 22:24 EDT , Discharge Plan Triage Chief Complaint: Fall ED Provider: Abe Pinedo Dx/Rx/DC Orders Instructions: ED Head Injury (Adult), ED Fall Prevention Prescriptions: No Action fluoxetine 40 mg Capsule 40 mg PO DAILY donepezil 10 mg Tablet 10 mg PO DAILY famotidine 40 mg Tablet 40 mg PO DAILY levothyroxine [Synthroid] 25 mcg Tablet 25 mcg PO DAILY pantoprazole [address] For Susp In Packet 40 mg PO DAILY Myrbetriq 50 mg Tablet Extended Release 24 Hr 50 mg PO DAILY ciprofloxacin HCl [Cipro] 500 mg tablet 500 mg PO BID Qty: 6 0RF Primary Care Provider: Dinah Melgar Referrals: Dinah Melgar MD [Primary Care Provider] - Disposition Disposition: Home, Self Care What to do if you have Problems For any increased pain, shortness of breath, bleeding, nausea or vomiting, chestpain, or any unexpected problems, contact your Primary Care Provider. Call [facility] ([phone]) or report to the closest Emergency Room. Call 911 if necessary. 10/08/222301 <Electronically signed by Abe Pinedo DO> Cosigner Signature (if applicable): CC: Dr. Dinah Melgar MD ~ Signed [facility] Work Phone: 1(770) 594-490005-31-2023 History of Present illness Narrative* Tanja Collins MD - 10/06/2022 8:17 AM EDT [facility] - NEW PATIENT EVALUATION Referring Provider: Dinah Melgar [address] [facility] [address] Primary Care Provider: Dinah Melgar MD [address] [facility] [id number] Dear Dinah Melgar: Thank you for referring Ms. Segura to our clinic today. As you know she is a 77 year old right-handed female who is seen in consultation for evaluation of tremor and imbalance since years . She is seen with a daughter. Subjective HISTORY OF PRESENT ILLNESS: Initial HPI Imbalance and tremors. Imbalance a couple of years. Just loses balance. Pauses after standing up to get her bearings. Walks slower intentionally. 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 Progressive. Falls and near falls. Falls twice permonth. Not worse on uneven surface or in the dark. Low back pain that doesn't radiate. Feet feel numb for awhile. Everything feels weak. Left leg and shoulder feel sore. No lightheadedness or vertigo. Sedentary. Works 3 days per week as [employer] at [employer]. Tremors for years. Daughter, son, and father with tremors. 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 Eating and drinking are ok. Both hands with action. Nothing makes them better or worse. Not sure she would want medications. Ears feel like they are plugged. Tinnitus. On Aricept. Was also on Namenda. Started by Dr. Tucker. Previously saw Cebul. Back to Dr. Melgar. Just had Botox for OAB and working so far. Movement Disorders Medications Schedule - as of the start of the visit: Medications Questionnaires In addition, the following areas that may be affected by abnormal involuntary movements were evaluated: Daily activities Difficulties with eatin (none) Difficulties in dressin (none) Difficulties with hygiene activities: 0 (none) Difficulties with handwriting: Yes (slight) Difficulties with doing hobbies and other activities: Yes (mild) Difficulties turning in bed: 0 (none) Difficulties getting out of bed, car or chair: 0 (none) Tremors/Gait/Balance Shaking or tremors: Yes (mild) Walking and balance problems: Yes (slight) Number of falls in the Last Month: 1 Gait freezin (none) Autonomic/Pain Lightheadeness on standing: Yes (mild) Urinary problems: 0 (none) Constipation problems: 0 (none) Pain and other sensations: 0 (none) Speech/Swallowing Speech problems: 0 (none) Droolin (none) Chewing and swallowing problems: Yes (slight) currently due to sore throat. Sleep/Fatigue Sleep problems: Yes (mild) up and down. not sure why. has NAYA but doesn't use CPAP. hasn't seen sleep specialist. PSG many years ago Daytime sleepiness: Yes (mild) Fatigue: Yes (severe) Mood/Behavior Depression: PHQ-9 Score: 5 usually representing mild (5-9) depression. Anxiety: DEREK-7 Total Score: 2 usually representing no significant (0-4) anxiety. Finally, the following table shows the patient's overall global physical and mental health using the PROMIS scale: PROMIS-10 Flowsheet Row Office Visit from 10/06/2022 in Neurology Office Visit from 02/03/2022 in [facility] [place] Global Physical Health T Score 39.8 34.9 Global Mental Health T Score 43.5 43.5 0-10 Standard Pain Scale 3 3 *PROMIS-10 scoring scale: mean = 50, over 50 is above average, under 50 is below average In addition, the following non-motor symptoms and palliative concerns were evaluated: Sleep/Fatigue: REM sleep behavior disorder: No Restless Legs Syndrome: Leg swelling: Impaired sense of smell: Yes Cognition: Cognitive impairment: yes not sure if worse than average for age. manages all of her own ADLs MoCA Cognitive assessment: 19 (10/08/2022) Hallucinations and delusions: Apathy: Impulse control disorder: Palliative Concerns: Caregiver burden: Spiritual concerns: Advanced directives on file: Palliative services: Therapy and Exercise: Last PT Date: Last OT Date: Last ST Date: Exercises Regularly: Review of Systems Review of Systems Constitutional Positive for Fatigue Negative for Fevers, Night Sweats, Weight Gain and Weight Loss Eyes Negative for Change in vison not corrected by glasses and Vision loss or change Hent Positive for Hearing Loss and Tinnitus Negative for Difficulty Swallowing and Recent change in speech or voice Cardiovascular Positive for Leg pain with walking Negative for Chest Pain and Lightheadedness Respiratory Positive for Cough and Snoring Negative for SOB at rest, SOB with exertion and Wheezing GI Negative for Blood in Stool, Abdominal Pain, Diarrhea, Constipation, Nausea/Vomiting and Heartburn Negative for Urgency and Incontinence Endocrine Negative for Heat Intolerance and Excessive Thirst Musculoskeletal Positive for Back Pain, Joint Swelling, Stiff Joints and Muscle Pain Integumentary Negative for Rashes, Itching and Hair Changes Heme/Lymph Positive for Prolonged Bleeding and Easy Bruising Negative for Swelling of Arm or Leg Allergy/Immunologic Negative for Nasal Congestion and Swollen Nodes Neurologic Positive for Memory Problems, Numbness/Tingling and Weakness Negative for Headache, Double Vision, Trouble Swallowing and Slurred Speech Psychiatric Positive for Depression and Anxiety Negative for Stress or Conflicts, Irritability, Hallucinations and Delusions Patient's Review of Systems has been reviewed with the patient and updated as appropriate. ALLERGIES Allergen Reactions Vioxx [Rofecoxib] Zocor [Simvastatin] Other: See Comments elevated CPK Current Outpatient Medications Medication Sig levothyroxine (LEVOXYL) 25 mcg tablet Take 1 tablet by mouth once daily. Take on empty stomach. ForThyroid famotidine (PEPCID) 40 mg tablet Take 1 tablet by mouth once daily. ezetimibe (ZETIA) 10 mg tablet Take 1 tablet by mouth once daily. pantoprazole DR (PROTONIX) 40 mg tablet Take 1 tablet by mouth once daily. FLUoxetine (PROZAC) 40 mg capsule Take 1 capsule by mouth once daily. meloxicam (MOBIC) 7.5 mg tablet Take 1 tablet by mouth once daily. donepezil (ARICEPT) 10 mg tablet Take 1 tablet by mouth daily at bedtime. mirabegron (MYRBETRIQ) 50 mg Tb24 Take 25 mg by mouth once daily. albuterol HFA (PROVENTIL HFA, VENTOLIN HFA) 90 mcg/actuation inhaler Inhale 2 Puffs as instructed every 4 hours as needed. acetaminophen (TYLENOL 8 HOUR ORAL) Take 500 mg by mouth twice daily. No current facility-administered medications for this visit. Past Medical and Surgical History: has a past medical history of Asthma (03/11/2010), Diarrhea, Elevated CK (04/26/2012), Hyperlipidemia (04/26/2012), Impingement syndrome of right shoulder (10/11/2016), Neurogenic bladder, NOS, Other and unspecified hyperlipidemia, Other forms of migraine, Overactive bladder (02/12/2009), Primary localized osteoarthrosis, lower leg, Rotator cuff syndrome (02/12/2009), Situational depression (05/31/2018), Unspecified sleep apnea, and Urinary incontinence (03/11/2010). has a past surgical history that includes adenoidectomy primary <age 10; tonsillectomy primary/secondary <age 10; vaginal hysterectomy uterus 250 gm/<; appendectomy; dilation & curettagedx&/ther nonobstetric; laparoscopy surg cholecystectomy (07-15-06); colonoscopy w/biopsy single/multiple (06/21/11); and past surgical history of (N/A, 2016). Social History Tobacco Use Smoking status: Never Smokeless tobacco: Never Substance Use Topics Alcohol use: No Drug use: No Family History: family history includes Heart in her brother, father, and mother; Tremor in her daughter, father, and son; dementia in her father. Objective Vital Signs: BP 121/68 (BP Site: Left Arm, BP Position: Sitting, BP Cuff Size: Regular Adult) Pulse 65 Ht 160 cm (5' 3) Wt 80.6 kg (177 lb 11.2 oz) SpO2 95% BMI 31.48 kg/m Orthostatic Vitals: None for this encounter Weight: 80.6 kg (177 lb 11.2 oz) Height: 160 cm (5' 3) No LMP recorded. Patient has had a hysterectomy. Body mass index is 31.48 kg/m . General Physical Examination: General: Awake, alert, interactive, no acute distress, good nutritional status, normal development,well-kept General Neurological Examination: Neurological Exam Mental Status Awake and alert. Language is fluent with no aphasia. Cranial Nerves CN III, IV, : Extraocular movements intact bilaterally. CN V: Facial sensation is normal. CN VII: Full and symmetric facial movement. CN VIII: Hearing is normal. CN XI: Shoulder shrug strength is normal. CN XII: Tongue midline without atrophy or fasciculations. Motor Normal muscle tone. Strength is 5/5 throughout all four extremities. Bilateral upper extremity action and postural tremors. Trace resting tremors. No rigidity or bradykinesia. Tremulous but legible cursive handwriting. No micrographia. Tremulous spirals and lines witheither hand. Sensory Vibration sense nearly absent right toe. Reduced left toe. Reflexes Right Left Brachioradialis 1+ 1+ Biceps 1+ 1+ Triceps 1+ 1+ Patellar Tr Tr Achilles Tr 1+ Plantar Downgoing Downgoing Coordination Right: Rapid alternating movement normal.Left: Rapid alternating movement normal. Action tremors on FTN bilaterally. Little trouble with HSN left side only. Gait Casual gait: Wide stance. Reduced stride length. Hesitant gait. Normal right arm swing. Normal leftarm swing. Romberg is absent. Pertinent Studies Head CT 06/11/22 - brain: no acute bleed. No edema. Decreased attenuation in the periventricular white matter bilaterally. Old lacunar infarct in the right basal ganglia mendiola- white matter differentiation is maintained. Arterial calcification. -Ventricles and sulci: Ventricles are not enlarged, stable. Small hypodense 5 mm nodule at the third ventricle unchanged. Sulci are prominent. -Extra-axial: No hemorrhage, fluid collection, or mass. -Calvarium/skull base: Unremarkable -Face/sinuses: Unremarkable -Soft tissues: Mild swelling in the right frontal scalp anteriorly Assessment and Plan: Assessment Ms. Segura is a right-handed 77 year old female with ET and gait instability. Action tremors are consistent with ET. Discussed diagnosis of ET vs PD is clinical. There are no elements of the history or physical exam concerning for parkinsonism. Discussed potential treatment options vs no treatment. Tremors may worsen with time and starting medications would not change that. At this point tremors are not bothersome enough to warrant treatment. Gait instability likely multifactorial. Possibly neuropathy, deconditioning. Head CT completed at [facility] does not reveal NPH or other obvious structural cause. Does not think she can have MRI due to her bladder stimulator. Recommend EMG. PT to improve gait. Be more active. Also cognitive impairment and on Aricept. Completes all daily activities despite cognitive complaints. Not on CPAP for her NAYA, could be contributing to her cognitive impairment The following are the current problems noted and addressed during this visit: Familial tremor Balance disorder Ataxia Falls frequently Mild cognitive impairment Numbness and tingling of both feet (primary encounter diagnosis) Naya (obstructive sleep apnea) Plan 10/06/2022 Visit: EMG - PT for imbalance - Sleep consult for untreated NAYA - Labs for cognitive impairment: TSH normal, B12 to be ordered once EMG results in case neuropathy labs need to be added - Updated Movement Disorders Medication Schedule: Medications Level of service : 37190 (45-59 min). Time spent 55 min on the day of service, which included preparing to see the patient, [id number] patient care, completing clinical documentation, obtaining and/or reviewing separately obtained history, performing a medically appropriate examination, counseling and educating the patient/family/caregiver, and ordering medications, tests, or procedures. Thank you for allowing me to be part of the clinical care of this patient! I look forward to continued participation in the patient s care with you. Please do not hesitate to call with any questions. Sincerely, Tanja Collins MD documented in this [facility]05-[facility]23 Miscellaneous Notes* Telephone Encounter - Francisco Carr MA - 09/06/2022 8:37 AM EDT Patient has been identified by name and date of : Yes Requested Prescriptions Pending Prescriptions Disp Refills levothyroxine (LEVOXYL) 25 mcg tablet 90 tablet 0 Sig: Take 1 tablet by mouth once daily. Take on empty stomach. For Thyroid RX INSTRUCTIONS: Patient aware RX will be sent to pharmacy. No need to notify patient. Patient last office visit: 08/04/22 Patient next office visit: 02/16/23 Francisco Carr MA documented in this encounterDet[facility]03-29-[facility] History of Present illness Narrative* Dinah Melgar MD - 08/04/2022 10:18 AM EDT Patient presents with: 6 Month Exam HPI: Patient presents today for office visit for follow up. Still having frequent falls. Currently taking Aricept and off Namenda. States her memory is about the same. Cut back at work andis only working [address] Nolasco has had on both meds for some times Discussed her falls. She fell out of bed recently. Had [facility]. Has a tremor in her right hand. There is some familial tremor. Has issues with balance for at least a few years. She recommended we consider therapy or neurology. Recently got shingles. Was on her back. Has bladder stimulator and currently on Myrbetriq. Still with incontinence. Followed by Urology. HLD: No longer taking any meds. GERD: Continues on Protonix and Pepcid with relief. Symptoms controlled. No bloody or black stool. No abdominal pain. PULM: does not use cpap No chest pain. Occasionally winded but thinks it is due to age and out of shape. No edema. Component Latest Ref Rng & Units 08/02/2022 WBC 3.70 - 11.00 k/uL 8.48 RBC 3.90 - 5.20 m/uL 4.86 Hemoglobin 11.5 - 15.5 g/dL 14.5 Hematocrit 36.0 - 46.0 % 46.3 (H) MCV 80.0 - 100.0 fL 95.3 MCH 26.0 - 34.0 pg 29.8 MCHC 30.5 - 36.0 g/dL 31.3 RDW-CV 11.5 - 15.0 % 14.0 Platelet Count 150 - 400 k/uL 432 (H) MPV 9.0 - 12.7 fL 10.5 Neut% % 59.3 Abs Neut (ANC) 1.45 - 7.50 k/uL 5.04 Lymph% % 27.4 Abs Lymph 1.00 - 4.00 k/uL 2.32 Anasco% % 9.0 Abs [place]co <0.87 k/uL 0.76 Eosin% % 2.5 Abs Eosin <0.46 k/uL 0.21 Baso% % 1.1 Abs Baso <0.11 k/uL 0.09 Immature Gran % % 0.7 IMMATURE GRANS (ABS) <0.10 k/uL 0.06 NRBC /100 WBC 0.0 Absolute nRBC <0.01 k/uL <0.01 DTYPE Auto Protein, Total 6.3 - 8.0 g/dL 7.0 Albumin 3.9 - 4.9 g/dL 4.3 Calcium 8.5 - 10.2 mg/dL 9.6 Bilirubin, Total 0.2 - 1.3 mg/dL 0.5 Alkaline Phosphatase 34 - 123 U/L 120 AST 13 - 35 U/L 15 ALT 7 - 38 U/L 11 Glucose 74 - 99 mg/dL 95 BUN 7 - 21 mg/dL 25 (H) Creatinine 0.58 - 0.96 mg/dL 1.00 (H) Sodium 136 - 144 mmol/L 138 Potassium 3.7 - 5.1 mmol/L 3.8 Chloride 97 - 105 mmol/L 101 CO2 22 - 30 mmol/L 27 Anion Gap 9 - 18 mmol/L 10 eGFR >=60 mL/min/1.73m 57 (L) Cholesterol, Total <200 mg/dL 378 (H) Triglyceride <150 mg/dL 273 (H) HDL Cholesterol >39 mg/dL 44 Non HDL Cholesterol <130 mg/dL 334 (H) Fasting Time hrs 15 VLDL Cholesterol <30 mg/dL 55 (H) TC:HDL Ratio <5.10 8.59 (H) LDL Cholesterol <100 mg/dL 279 (H) LDL:HDL Ratio <2.54 6.34 (H) TSH 0.270 - 4.200 mIU/L 3.860 Hep C Antibody IA Negative Negative MEDICATIONS: Current Outpatient Medications Medication Sig pantoprazole DR (PROTONIX) 40 mg tablet Take 1 tablet by mouth once daily. levothyroxine (LEVOXYL) 25 mcg tablet Take 1 tablet by mouth once daily. Take on empty stomach. ForThyroid FLUoxetine (PROZAC) 40 mg capsule Take 1 capsule by mouth once daily. meloxicam (MOBIC) 7.5 mg tablet Take 1 tablet by mouth once daily. donepezil (ARICEPT) 10 mg tablet Take 1 tablet by mouth daily at bedtime. mirabegron (MYRBETRIQ) 50 mg Tb24 Take 25 mg by mouth once daily. famotidine (PEPCID) 40 mg tablet Take 40 mg by mouth once daily. albuterol HFA (PROVENTIL HFA, VENTOLIN HFA) 90 mcg/actuation inhaler Inhale 2 Puffs as instructed every 4 hours as needed. fluticasone (FLONASE) 50 mcg/actuation nasal spray Use 2 Sprays in each nostril once daily. Rinse mouth after use. acetaminophen (TYLENOL 8 HOUR ORAL) Take 500 mg by mouth twice daily. No current facility-administered medications for this visit. ALLERGIES: ALLERGIES Allergen Reactions Vioxx [Rofecoxib] Zocor [Simvastatin] Other: See Comments elevated CPK PAST MEDICAL HISTORY Diagnosis Date Asthma 03/11/2010 Diarrhea Elevated CK 04/26/2012 Hyperlipidemia 04/26/2012 Impingement syndrome of right shoulder 10/11/2016 Neurogenic bladder, NOS Other and unspecified hyperlipidemia Other forms of migraine Overactive bladder 02/12/2009 Primary localized osteoarthrosis, lower leg Rotator cuff syndrome 02/12/2009 Situational depression 05/31/2018 Unspecified sleep apnea Urinary incontinence 03/11/2010 PAST SURGICAL HISTORY Procedure Laterality Date ADENOIDECTOMY PRIMARY <AGE 10 Adenoidectomy APPENDECTOMY COLONOSCOPY W/BIOPSY SINGLE/MULTIPLE 06/21/11 DILATION & CURETTAGE DX&/THER NONOBSTETRIC Dilation & curettage LAPAROSCOPY SURG CHOLECYSTECTOMY 07-15-06 Cholecystectomy, lap PAST SURGICAL HISTORY OF N/A 2017 urinary implant device TONSILLECTOMY PRIMARY/SECONDARY <AGE 10 Tonsillectomy VAGINAL HYSTERECTOMY UTERUS 250 GM/< Hysterectomy, vaginal FAMILY HISTORY Problem Relation Age of Onset other (dementia [Other]) Father Heart Father Heart Mother Heart Brother Social History Tobacco Use Smoking status: Never Smokeless tobacco: Never Substance Use Topics Alcohol use: No Drug use: No Reviewed current medications, allergies, past medical history, surgical history, family history andsocial history today. REVIEW OF SYSTEMS No new gi issues. They are considering injections for her bladdder. All other reviewed and negative other than HPI. HEALTH MAINTENANCE: Reviewed health maintenance issues today and recommended the following in detail. COVID-19 VACCINE(5 - Booster for Pfizer series) due on 10/21/2021 ADVANCE DIRECTIVE DISCUSSION -has a dpoa, her daughter Netta is her surrogate. - discussed mammogram and colonosocpy. VITALS: BP 116/70 Pulse 96 Ht 154.9 cm (5' 1) Wt 76.2 kg (168 lb) SpO2 96% BMI 31.74 kg/m Last 4 Encounter Wt Readings: Date: Wt: 07/14/2022 77.6 kg (171 lb) 05/10/2022 78.8 kg (173 lb 12.8 oz) 02/03/2022 77.6 kg (171 lb) 12/18/2021 78.2 kg (172 lb 6.4 oz) PHYSICAL EXAMINATION: General appearance: Well appearing, alert, in no acute distress, well-hydrated, well nourished. Skin: Skin color, texture, turgor normal, no suspicious rashes or lesions Head: Normocephalic, no masses, lesions, tenderness or abnormalities Eyes: Anicteric sclera. Pupils are equally round and reactive to light. Extraocular movements are intact. Neck: Supple, no adenopathy; thyroid symmetric, normal size, no bruits Lungs: Lungs clear to auscultation. No wheezing, rhonchi, rales Heart: RRR without murmur, gallop, or rubs. No ectopy Abdomen: Normal abdominal exam, Abdomen soft, non-tender. Bowel sounds normal. No masses, organomegaly Extremities: No deformities, edema, skin discoloration, clubbing or cyanosis. Good capillary refill. Musculoskeletal: No joint swelling, deformity, or tenderness Peripheral pulses: Normal Neuro: broad based gait. Mild tremor with intention. No cogwheeling. ASSESSMENT/PLAN: 1. Hyperlipidemia LDL goal <100 - ICD9: 272.4, ICD10: E78.5 (primary diagnosis) - Discussed risks and benefits of new medication with the patient. Advised them to call if any sideeffects or questions. - recheck labs in one month. - EZETIMIBE 10 MG TABLET - LIPID PANEL BASIC 2. Chronic kidney disease, stage 3a (HCC) - ICD9: 585.3, ICD10: N18.31 - follow labs. 3. Uncomplicated asthma, unspecified asthma severity, unspecified whether persistent - ICD9: 493.90, ICD10: J45.909 - - stable. 4. Unspecified sleep apnea - ICD9: 780.57, ICD10: G47.30 - as above. 5. Gastroesophageal reflux disease without esophagitis - ICD9: 530.81, ICD10: K21.9 - doing well. 6. Overactive bladder - ICD9: 596.51, ICD10: N32.81 - per urology 7. Hypothyroidism, acquired - ICD9: 244.9, ICD10: E03.9 - continue meds. 8. Statin intolerance - ICD9: 995.27, ICD10: Z78.9 - EZETIMIBE 10 MG TABLET 9. Thrombocytosis - ICD9: 238.71, ICD10: D75.839 - follow labs. - CBC + DIFF 10. Renal insufficiency - ICD9: 593.9, ICD10: N28.9 - follow labs. - BASIC METABOLIC PNL - URINALYSIS, WITH MICROSCOPIC 11. Familial tremor - ICD9: 333.1, ICD10: G25.0 - see neuro - CONSULT TO NEUROLOGY 12. Balance disorder - ICD9: 781.99, ICD10: R26.89 - CONSULT TO NEUROLOGY 13. Ataxia - ICD9: 781.3, ICD10: R27.0 - does not use a cane or walker. Have offered physical therapy. - CONSULT TO NEUROLOGY 14. Falls frequently - ICD9: V15.88, ICD10: R29.6 - CONSULT TO NEUROLOGY 15. Mild cognitive impairment - ICD9: 331.83, ICD10: G31.84 - CONSULT TO NEUROLOGY Dinah Melgar MD documented [facility] encounter[facility]* Diagnosis Hyperlipidemia LDL goal <100- Primary Other and unspecified hyperlipidemia Chronic kidney disease, stage 3a (HCC) Uncomplicated asthma, unspecified asthma severity, unspecified whether persistent Unspecified sleep apnea Gastroesophageal reflux disease without esophagitis Esophageal reflux Overactive bladder Hypertonicity of bladder Hypothyroidism, acquired Unspecified hypothyroidism Statin intolerance Other drug allergy Thrombocytosis Essential thrombocythemia Renal insufficiency Unspecified disorder of kidney and ureter Familial tremor Essential and other specified forms of tremor Balance disorder Other symptoms involving nervous and musculoskeletal systems Ataxia Lack of coordination Falls frequently Personal history of fall Mild cognitive impairment Mild cognitive impairment, so stated documented in [facility] encounter [facility] Miscellaneous Notes* Telephone Encounter - Patience Lipscomb MA - 07/15/2022 7:32 AM EST Pt was notified of the results. Pt verbalized understanding. Patience Lipscomb MA * Telephone Encounter - Ryland Covarrubias APRN.CNP - 07/15/2022 7:18 AM EST Please notify that covid testing negative. Continue with plan of care as discussed during visit. documented in this encounterDetw[facility]02-17-2023 Miscellaneous Notes* Telephone Encounter - Martínez Kessler LPN - 06/25/2022 3:05 PM EST [facility] office calling patient is there for a visit and asking for a copy of patient medication list be faxed to [phone]. Printed office visit from 02/03/2022 and faxed as requested. documented in this encounterDetw[facility]02-03-[facility]23 Hospital Discharge instructions Additional Instructions Please return to the ER or see your family doctor in 5 to 7 days for suture removal. Your work-up today revealed no signs of underlying head trauma such as skull fracture or brain bleed or broken [facility] Work Phone: [phone] 205-308301-03-2023 Miscellaneous Notes* Telephone Encounter - Abdi Penny LPN - 05/11/2022 2:13 PM EST Patient phones requesting refills as follows: Requested Prescriptions Pending Prescriptions Disp Refills levothyroxine (LEVOXYL) 25 mcg tablet 90 tablet 0 Sig: Take 1 tablet by mouth once daily. Take on empty stomach. For Thyroid Please review and advise. Abdi Penny LPN documented in this encounterDet[facility]01-02-2023 History of Present illness Narrative* Nael Benson MD - 05/10/2022 3:15 PM EST Patient presents with: Covid19 Concern: Cough, ST x2 weeks + rapid 04/25, treated with Paxlovid HPI: Feeling sick for a few days before testing positive for COVID 04/25. She has improved some. She dida home test today and it was positive. Positive symptoms: Cough, Rhinorrhea, always has Headaches, chronic intermittent Diarrhea, Negative symptoms: Shortness of breath, Chest tightness, Chest pain, Fever, Chills, Body Aches, OTC: treated with paxlovid week of 04/25. MEDICATIONS: Current Outpatient Medications Medication Sig levothyroxine (LEVOXYL) 25 mcg tablet Take 1 tablet by mouth once daily. Take on empty stomach. ForThyroid FLUoxetine (PROZAC) 40 mg capsule Take 40 mg by mouth once daily. pantoprazole DR (PROTONIX) 40 mg tablet Take 40 mg by mouth once daily. meloxicam (MOBIC) 7.5 mg tablet Take 7.5 mg by mouth once daily. mirabegron (MYRBETRIQ) 50 mg Tb24 Take 25 mg by mouth once daily. donepezil (ARICEPT) 10 mg tablet Take 10 mg by mouth daily at bedtime. famotidine (PEPCID) 40 mg tablet Take 40 mg by mouth once daily. albuterol HFA (PROVENTIL HFA, VENTOLIN HFA) 90 mcg/actuation inhaler Inhale 2 Puffs as instructed every 4 hours as needed. fluticasone (FLONASE) 50 mcg/actuation nasal spray Use 2 Sprays in each nostril once daily. Rinse mouth after use. acetaminophen (TYLENOL 8 HOUR ORAL) Take 500 mg by mouth twice daily. No current facility-administered medications for this visit. ALLERGIES: ALLERGIES Allergen Reactions Vioxx [Rofecoxib] Zocor [Simvastatin] Other: See Comments elevated CPK VITALS: BP 138/84 Pulse 97 Temp 37.3 C (99.1 F) Resp 18 Wt 78.8 kg (173 lb 12.8 oz) SpO2 92% BMI 32.84 kg/m PHYSICAL EXAM: GEN: Pleasant, in no acute distress. HEENT: PERRL, EOMI, conjunctiva clear Ears: LTM without erythema, bulge, or effusion. Cerumen right canal. Sinuses: non-tender frontal sinus, non-tender maxillary sinuses Throat: moist mucous membranes, no erythema, no exudate Neck: supple, no thyromegaly, no lymphadenopathy HEART: regular rate and rhythm, no murmurs LUNGS: clear to auscultation, no wheezes or crackles, no increased WOB; raspy cough ASSESSMENT/PLAN: 1. Acute COVID-19 - ICD9: 079.89, ICD10: U07.1 Reviewed typical contagious duration is 10 days and fever free for 24 hours. She did not experiencerebound of symptoms after antiviral treatment. Follow up with worsening cough, worsening shortness of breath, chest pain, or late onset fever. She may discuss [facility] clinic if symptoms are not resolving. Nael Benson MD documented in this encounterDet[facility]01-02-2023 Miscellaneous Notes* Telephone Encounter - Eladia Herrera LPN - 05/10/2022 11:51 AM EST Pt's daughter Netta calling to request refill. Netta states this med was previously filled by Dr Tucker but pt's current pcp will fill as needed. RAMESH: 02/03/22 NOV: 08/04/22 Netta reports pt tested + for covd 04/25/22, took paxlovid X 5 days & was doing well & returned to work 04/30/22. Netta states pt started having a cough, sore throat & doesn't feel well. Netta tested pt now & she is testing + for covid. Not sure if pt is still testing pos from last infection or if this is new. Netta advised providers are out of the office today & if she felt pt needed seen, EC is open. Amyvoiced understanding. Eladia Herrera LPN documented in this encounterDetwiler [facility]10-31-2022 Miscellaneous Notes* Telephone Encounter - Jessica Gamboa LPN - 03/08/2022 8:01 AM EDT Below was address in another phone encounter. Jessica Gamboa LPN * Telephone Encounter - Jessica Gamboa LPN - 03/05/2022 12:01 PM EDT Enoc with [facility] called and states the prescription for Levothyroxine 25 mcg needs to be atablet. Please send new prescription. Patient has been identified by name and date of : Yes Pharmacy phones for refill(s): Requested Prescriptions Pending Prescriptions Disp Refills levothyroxine (SYNTHROID) 25 mcg tablet 90 tablet 1 Sig: Take 1 tablet daily before breakfast for thyroid Last 2 Encounter Wt Readings: Date: Wt: 02/03/2022 77.6 kg (171 lb) 12/18/2021 78.2 kg (172 lb 6.4 oz) Previous labs/tests for medication: Thyroid: TSH (uU/mL) Date Value 06/05/2020 3.730 Thank you. Jessica Gamboa LPN documented in this encounterDetwiler [facility]10-28-2022 Miscellaneous Notes* Telephone Encounter - Jessica Gamboa LPN - 03/05/2022 12:00 PM EDT Enoc with [facility] called and states the prescription below should be a tablet not capsule. * Telephone Encounter - Abdi Penny LPN - 03/05/2022 9:44 AM EDT Left message for pt to return call to office. Abdi Penny LPN * Telephone Encounter - Marjorie Villegas PA-C - 03/05/2022 8:05 AM EDT Needs to complete outsanding labwork overnight fasting this week. Overdue. The following approved medication requests have been transmitted electronically. Requested Prescriptions Signed Prescriptions Disp Refills levothyroxine 25 mcg cap 90 capsule 1 Sig: Take 1 capsule by mouth daily before breakfast. Authorizing Provider: Marjorie VILLEGAS PA-C documented in this encounterDetwiler [facility]09-28-2022 History of Past illness Narrative* Problem Noted Date Resolved Date Special screening examination for viral disease 02/03/2022 02/03/2022 OPENED IN ERROR 10/13/2018 02/03/2022 Impingement syndrome of right shoulder 7 05/18/2017 Rotator cuff strain 04/23/2015 05/18/2017 Right rotator cuff tear 06/28/2013 04/10/20 14 Impingement syndrome of right shoulder 4 04/10/2014 Supraspinatus tendonitis 12/06/2012 014 Hyperlipidemia 04/26/2012 04/10/2014 Elevated CK 04/26/2012 04/10/2014 Diarrhea 06/21/2011 04/10/2014 Rotator cuff syndrome 02/12/2009 04/10/2014 documented as of this encounter (statuses as of 02/03/2022) [facility] of Past illness Narrative* Problem Noted Date Resolved Date Special screening examination for viral disease 02/03/2022 02/03/2022 OPENED IN ERROR 10/13/2018 02/03/2022 Impingement syndrome of right shoulder 7 05/18/2017 Rotator cuff strain 04/23/2015 05/18/2017 Right rotator cuff tear 06/28/2013 04/10/20 14 Impingement syndrome of right shoulder 4 04/10/2014 Supraspinatus tendonitis 12/06/2012 014 Hyperlipidemia 04/26/2012 04/10/2014 Elevated CK 04/26/2012 04/10/2014 Diarrhea 06/21/2011 04/10/2014 Rotator cuff syndrome 02/12/2009 04/10/2014 documented as of this encounter (statuses as of 03/05/2022) [facility] Past illness Narrative* Problem Noted Date Resolved Date Special screening examination for viral disease 02/03/2022 02/03/2022 OPENED IN ERROR 10/13/2018 02/03/2022 Impingement syndrome of right shoulder 7 05/18/2017 Rotator cuff strain 04/23/2015 05/18/2017 Right rotator cuff tear 06/28/2013 04/10/20 14 Impingement syndrome of right shoulder 4 04/10/2014 Supraspinatus tendonitis 12/06/2012 014 Hyperlipidemia 04/26/2012 04/10/2014 Elevated CK 04/26/2012 04/10/2014 Diarrhea 06/21/2011 04/10/2014 Rotator cuff syndrome 02/12/2009 04/10/2014 documented as of this encounter (statuses as of 03/08/2022) [facility] illness Narrative* Problem Noted Date Resolved Date Special screening examination for viral disease 02/03/2022 02/03/2022 OPENED IN ERROR 10/13/2018 02/03/2022 Impingement syndrome of right shoulder 7 05/18/2017 Rotator cuff strain 04/23/2015 05/18/2017 Right rotator cuff tear 06/28/2013 04/10/20 14 Impingement syndrome of right shoulder 4 04/10/2014 Supraspinatus tendonitis 12/06/2012 014 Hyperlipidemia 04/26/2012 04/10/2014 Elevated CK 04/26/2012 04/10/2014 Diarrhea 06/21/2011 04/10/2014 Rotator cuff syndrome 02/12/2009 04/10/2014 documented as of this encounter (statuses as of 05/13/2022) [facility] illness Narrative* Problem Noted Date Resolved Date Special screening examination for viral disease 02/03/2022 02/03/2022 OPENED IN ERROR 10/13/2018 02/03/2022 Impingement syndrome of right shoulder 7 05/18/2017 Rotator cuff strain 04/23/2015 05/18/2017 Right rotator cuff tear 06/28/2013 04/10/20 14 Impingement syndrome of right shoulder 4 04/10/2014 Supraspinatus tendonitis 12/06/2012 014 Hyperlipidemia 04/26/2012 04/10/2014 Elevated CK 04/26/2012 04/10/2014 Diarrhea 06/21/2011 04/10/2014 Rotator cuff syndrome 02/12/2009 04/10/2014 documented as of this encounter (statuses as of 06/25/2022) [facility] illness Narrative* Problem Noted Date Resolved Date Special screening examination for viral disease 02/03/2022 02/03/2022 OPENED IN ERROR 10/13/2018 02/03/2022 Impingement syndrome of right shoulder 7 05/18/2017 Rotator cuff strain 04/23/2015 05/18/2017 Right rotator cuff tear 06/28/2013 04/10/20 14 Impingement syndrome of right shoulder 4 04/10/2014 Supraspinatus tendonitis 12/06/201204/10/2 014 Hyperlipidemia 04/26/2012 04/10/2014 Elevated CK 04/26/2012 04/10/2014 Diarrhea 06/21/2011 04/10/2014 Rotator cuff syndrome 02/12/2009 04/10/2014 documented as of this encounter (statuses as of 07/15/2022) [facility] illness Narrative* Problem Noted Date Resolved Date Special screening examination for viral disease 02/03/2022 02/03/2022 OPENED IN ERROR 10/13/2018 02/03/2022 Impingement syndrome of right shoulder 7 05/18/2017 Rotator cuff strain 04/23/2015 05/18/2017 Right rotator cuff tear 06/28/2013 04/10/20 14 Impingement syndrome of right shoulder 4 04/10/2014 Supraspinatus tendonitis 12/06/2012 014 Hyperlipidemia 04/26/2012 04/10/2014 Elevated CK 04/26/2012 04/10/2014 Diarrhea 06/21/2011 04/10/2014 Rotator cuff syndrome 02/12/2009 04/10/2014 documented as of this encounter (statuses as of 08/04/2022) [facility] Narrative* Problem Noted Date Resolved Date Special screening examination for viral disease 02/03/2022 02/03/2022 OPENED IN ERROR 10/13/2018 02/03/2022 Impingement syndrome of right shoulder 7 05/18/2017 Rotator cuff strain 04/23/2015 05/18/2017 Right rotator cuff tear 06/28/2013 04/10/20 14 Impingement syndrome of right shoulder 4 04/10/2014 Supraspinatus tendonitis 12/06/2012 014 Hyperlipidemia 04/26/2012 04/10/2014 Elevated CK 04/26/2012 04/10/2014 Diarrhea 06/21/2011 04/10/2014 Rotator cuff syndrome 02/12/2009 04/10/2014 documented as of this encounter (statuses as of 09/06/2022) [facility] Narrative* Problem Noted Date Resolved Date Special screening examination for viral disease 02/03/2022 02/03/2022 OPENED IN ERROR 10/13/2018 02/03/2022 Impingement syndrome of right shoulder 7 05/18/2017 Rotator cuff strain 04/23/2015 05/18/2017 Right rotator cuff tear 06/28/2013 04/10/20 14 Impingement syndrome of right shoulder 4 04/10/2014 Supraspinatus tendonitis 12/06/2012 014 Hyperlipidemia 04/26/2012 04/10/2014 Elevated CK 04/26/2012 04/10/2014 Diarrhea 06/21/2011 04/10/2014 Rotator cuff syndrome 02/12/2009 04/10/2014 documented as of this encounter (statuses as of 09/07/2022) [facility] Narrative* Problem Noted Date Resolved Date Special screening examination for viral disease 02/03/2022 02/03/2022 OPENED IN ERROR 10/13/2018 02/03/2022 Impingement syndrome of right shoulder 7 05/18/2017 Rotator cuff strain 04/23/2015 05/18/2017 Right rotator cuff tear 06/28/2013 04/10/20 14 Impingement syndrome of right shoulder 4 04/10/2014 Supraspinatus tendonitis 12/06/2012 014 Hyperlipidemia 04/26/2012 04/10/2014 Elevated CK 04/26/2012 04/10/2014 Diarrhea 06/21/2011 04/10/2014 Rotator cuff syndrome 02/12/2009 04/10/2014 documented as of this encounter (statuses as of 10/09/2022) [facility] Narrative* Problem Noted Date Resolved Date Special screening examination for viral disease 02/03/2022 02/03/2022 OPENED IN ERROR 10/13/2018 02/03/2022 Impingement syndrome of right shoulder 7 05/18/2017 Rotator cuff strain 04/23/2015 05/18/2017 Right rotator cuff tear 06/28/2013 04/10/20 14 Impingement syndrome of right shoulder 4 04/10/2014 Supraspinatus tendonitis 12/06/2012 014 Hyperlipidemia 04/26/2012 04/10/2014 Elevated CK 04/26/2012 04/10/2014 Diarrhea 06/21/2011 04/10/2014 Rotator cuff syndrome 02/12/2009 04/10/2014 documented as of this encounter (statuses as of 10/12/2022) [facility] Narrative* Problem Noted Date Diagnosed Date Resolved Date Special screening examinatio n for viral disease 02/03/2022 02/03/2022 OPENED IN ERROR 10/13/2018 02/03/2022 Impingement syndrome of right shoulder 10/11/2016 05/18/2017 Rotator cuff strain 04/23/2015 05/18/19 18 Right rotator cuff tear 06/28/201307/2013 Impingement syndrome of right shoulder 06/06/2013 04/10/2014 Supraspinatus tendonitis 12/06/201207/2013 Hyperlipidemia 04/26/2012 04/10/2014 Elevated CK 04/26/2012 04/10/2014 Diarrhea 06/21/2011 04/10/2014 Rotator cuff syndrome 02/12/20092013 documented as of this encounter (statuses as of 11/15/2022) [facility] Narrative* Problem Noted Date Diagnosed Date Resolved Date Special screening examinatio n for viral disease 02/03/2022 02/03/2022 OPENED IN ERROR 10/13/2018 02/03/2022 Impingement syndrome of right shoulder 10/11/2016 05/18/2017 Rotator cuff strain 04/23/2015 05/18/19 18 Right rotator cuff tear 06/28/201307/2013 Impingement syndrome of right shoulder 06/06/2013 04/10/2014 Supraspinatus tendonitis 12/06/201207/2013 Hyperlipidemia 04/26/2012 04/10/2014 Elevated CK 04/26/2012 04/10/2014 Diarrhea 06/21/2011 04/10/2014 Rotator cuff syndrome 02/12/20092013 documented as of this encounter (statuses as of 11/23/2022) [facility] Narrative* Problem Noted Date Diagnosed Date Resolved Date Special screening examinatio n for viral disease 02/03/2022 02/03/2022 OPENED IN ERROR 10/13/2018 02/03/2022 Impingement syndrome of right shoulder 10/11/2016 05/18/2017 Rotator cuff strain 04/23/2015 05/18/19 18 Right rotator cuff tear 06/28/20130 07/2013 Impingement syndrome of right shoulder 06/06/2013 04/10/2014 Supraspinatus tendonitis 12/06/201207/2013 Hyperlipidemia 04/26/2012 04/10/2014 Elevated CK 04/26/2012 04/10/2014 Diarrhea 06/21/2011 04/10/2014 Rotator cuff syndrome 02/12/20092013 documented as of this encounter (statuses as of 11/23/2022) [facility] Narrative* Problem Noted Date Diagnosed Date Resolved Date Special screening examinatio n for viral disease 02/03/2022 02/03/2022 OPENED IN ERROR 10/13/2018 02/03/2022 Impingement syndrome of right shoulder 10/11/2016 05/18/2017 Rotator cuff strain 04/23/2015 05/18/19 18 Right rotator cuff tear 06/28/201307/2013 Impingement syndrome of right shoulder 06/06/2013 04/10/2014 Supraspinatus tendonitis 12/06/201207/2013 Hyperlipidemia 04/26/2012 04/10/2014 Elevated CK 04/26/2012 04/10/2014 Diarrhea 06/21/2011 04/10/2014 Rotator cuff syndrome 02/12/20092013 documented as of this encounter (statuses as of 11/29/2022) [facility] Narrative* Problem Noted Date Diagnosed Date Resolved Date Special screening examinatio n for viral disease 02/03/2022 02/03/2022 OPENED IN ERROR 10/13/2018 02/03/2022 Impingement syndrome of right shoulder 10/11/2016 05/18/2017 Rotator cuff strain 04/23/2015 05/18/19 18 Right rotator cuff tear 06/28/201307/2013 Impingement syndrome of right shoulder 06/06/2013 04/10/2014 Supraspinatus tendonitis 12/06/201207/2013 Hyperlipidemia 04/26/2012 04/10/2014 Elevated CK 04/26/2012 04/10/2014 Diarrhea 06/21/2011 04/10/2014 Rotator cuff syndrome 02/12/20092013 documented as of this encounter (statuses as of 12/01/2022) [facility] Narrative* Problem Noted Date Diagnosed Date Resolved Date Special screening examinatio n for viral disease 02/03/2022 02/03/2022 OPENED IN ERROR 10/13/2018 02/03/2022 Impingement syndrome of right shoulder 10/11/2016 05/18/2017 Rotator cuff strain 04/23/2015 05/18/19 18 Right rotator cuff tear 06/28/201307/2013 Impingement syndrome of right shoulder 06/06/2013 04/10/2014 Supraspinatus tendonitis 12/06/201207/2013 Hyperlipidemia 04/26/2012 04/10/2014 Elevated CK 04/26/2012 04/10/2014 Diarrhea 06/21/2011 04/10/2014 Rotator cuff syndrome 02/12/20092013 documented as of this encounter (statuses as of 12/03/2022) [facility] Narrative* Problem Noted Date Diagnosed Date Resolved Date Special screening examinatio n for viral disease 02/03/2022 02/03/2022 OPENED IN ERROR 10/13/2018 02/03/2022 Impingement syndrome of right shoulder 10/11/2016 05/18/2017 Rotator cuff strain 04/23/2015 05/18/19 18 Right rotator cuff tear 06/28/201307/2013 Impingement syndrome of right shoulder 06/06/2013 04/10/2014 Supraspinatus tendonitis 12/06/201207/2013 Hyperlipidemia 04/26/2012 04/10/2014 Elevated CK 04/26/2012 04/10/2014 Diarrhea 06/21/2011 04/10/2014 Rotator cuff syndrome 02/12/20092013 documented as of this encounter (statuses as of 12/09/2022) [facility] Narrative* Problem Noted Date Diagnosed Date Resolved Date Special screening examinatio n for viral disease 02/03/2022 02/03/2022 OPENED IN ERROR 10/13/2018 02/03/2022 Impingement syndrome of right shoulder 10/11/2016 05/18/2017 Rotator cuff strain 04/23/2015 05/18/19 18 Right rotator cuff tear 06/28/20130 07/2013 Impingement syndrome of right shoulder 06/06/2013 04/10/2014 Supraspinatus tendonitis 12/06/201207/2013 Hyperlipidemia 04/26/2012 04/10/2014 Elevated CK 04/26/2012 04/10/2014 Diarrhea 06/21/2011 04/10/2014 Rotator cuff syndrome 02/12/20092013 documented as of this encounter (statuses as of 12/13/2022) [facility] Narrative* Problem Noted Date Diagnosed Date Resolved Date Special screening examinatio n for viral disease 02/03/2022 02/03/2022 OPENED IN ERROR 10/13/2018 02/03/2022 Impingement syndrome of right shoulder 10/11/2016 05/18/2017 Rotator cuff strain 04/23/2015 05/18/19 18 Right rotator cuff tear 06/28/201307/2013 Impingement syndrome of right shoulder 06/06/2013 04/10/2014 Supraspinatus tendonitis 12/06/201207/2013 Hyperlipidemia 04/26/2012 04/10/2014 Elevated CK 04/26/2012 04/10/2014 Diarrhea 06/21/2011 04/10/2014 Rotator cuff syndrome 02/12/20092013 documented as of this encounter (statuses as of 12/26/2022) [facility] History of Past illness Narrative* Problem Noted Date Diagnosed Date Resolved Date Special screening examinatio n for viral disease 02/03/2022 02/03/2022 OPENED IN ERROR 10/13/2018 02/03/2022 Impingement syndrome of right shoulder 10/11/2016 05/18/2017 Rotator cuff strain 04/23/2015 05/18/19 18 Right rotator cuff tear 06/28/201307/2013 Impingement syndrome of right shoulder 06/06/2013 04/10/2014 Supraspinatus tendonitis 12/06/201207/2013 Hyperlipidemia 04/26/2012 04/10/2014 Elevated CK 04/26/2012 04/10/2014 Diarrhea 06/21/2011 04/10/2014 Rotator cuff syndrome 02/12/20092013 documented as of this encounter (statuses as of 12/27/2022) [facility] History of Past illness Narrative* Problem Noted Date Diagnosed Date Resolved Date Special screening examinatio n for viral disease 02/03/2022 02/03/2022 OPENED IN ERROR 10/13/2018 02/03/2022 Impingement syndrome of right shoulder 10/11/2016 05/18/2017 Rotator cuff strain 04/23/2015 05/18/19 18 Right rotator cuff tear 06/28/201307/2013 Impingement syndrome of right shoulder 06/06/2013 04/10/2014 Supraspinatus tendonitis 12/06/201207/2013 Hyperlipidemia 04/26/2012 04/10/2014 Elevated CK 04/26/2012 04/10/2014 Diarrhea 06/21/2011 04/10/2014 Rotator cuff syndrome 02/12/20092013 documented as of this encounter (statuses as of 12/29/2022) [facility] History of Past illness Narrative* Problem Noted Date Diagnosed Date Resolved Date Special screening examinatio n for viral disease 02/03/2022 02/03/2022 OPENED IN ERROR 10/13/2018 02/03/2022 Impingement syndrome of right shoulder 10/11/2016 05/18/2017 Rotator cuff strain 04/23/2015 05/18/19 18 Right rotator cuff tear 06/28/201307/2013 Impingement syndrome of right shoulder 06/06/2013 04/10/2014 Supraspinatus tendonitis 12/06/201207/2013 Hyperlipidemia 04/26/2012 04/10/2014 Elevated CK 04/26/2012 04/10/2014 Diarrhea 06/21/2011 04/10/2014 Rotator cuff syndrome 02/12/20092013 documented as of this encounter (statuses as of 01/04/2023) [facility] History of Past illness Narrative* Problem Noted Date Diagnosed Date Resolved Date Special screening examinatio n for viral disease 02/03/2022 02/03/2022 OPENED IN ERROR 10/13/2018 02/03/2022 Impingement syndrome of right shoulder 10/11/2016 05/18/2017 Rotator cuff strain 04/23/2015 05/18/19 18 Right rotator cuff tear 06/28/20130 07/2013 Impingement syndrome of right shoulder 06/06/2013 04/10/2014 Supraspinatus tendonitis 12/06/201207/2013 Hyperlipidemia 04/26/2012 04/10/2014 Elevated CK 04/26/2012 04/10/2014 Diarrhea 06/21/2011 04/10/2014 Rotator cuff syndrome 02/12/20092013 documented as of this encounter (statuses as of 01/18/2023) [facility] History of Past illness Narrative* Problem Noted Date Diagnosed Date Resolved Date Special screening examinatio n for viral disease 02/03/2022 02/03/2022 OPENED IN ERROR 10/13/2018 02/03/2022 Impingement syndrome of right shoulder 10/11/2016 05/18/2017 Rotator cuff strain 04/23/2015 05/18/19 18 Right rotator cuff tear 06/28/201307/2013 Impingement syndrome of right shoulder 06/06/2013 04/10/2014 Supraspinatus tendonitis 12/06/201207/2013 Hyperlipidemia 04/26/2012 04/10/2014 Elevated CK 04/26/2012 04/10/2014 Diarrhea 06/21/2011 04/10/2014 Rotator cuff syndrome 02/12/20092013 documented as of this encounter (statuses as of 01/20/2023) [facility] History of Past illness Narrative* Problem Noted Date Diagnosed Date Resolved Date Special screening examinatio n for viral disease 02/03/2022 02/03/2022 OPENED IN ERROR 10/13/2018 02/03/2022 Impingement syndrome of right shoulder 10/11/2016 05/18/2017 Rotator cuff strain 04/23/2015 05/18/19 18 Right rotator cuff tear 06/28/201307/2013 Impingement syndrome of right shoulder 06/06/2013 04/10/2014 Supraspinatus tendonitis 12/06/201207/2013 Hyperlipidemia 04/26/2012 04/10/2014 Elevated CK 04/26/2012 04/10/2014 Diarrhea 06/21/2011 04/10/2014 Rotator cuff syndrome 02/12/20092013 documented as of this encounter (statuses as of 01/24/2023) [facility] History of Present illness Narrative* Dinah Melgar MD - 02/03/2022 1:06 PM EDT Patient presents with: Yearly Exam: Dr. Nolasco Pt. [facility] care HPI: Patient presents today for office visit for follow up. Dr. Nolasco Pt. Had switched out to Dr. Tucker. Now switching back. Had been on a number of meds. They stopped them per his disc Having trouble with balance. Multiple falls. Since stopping Namenda hasn't fallen as much. Issues with B/L ears. Refers to crackling noises. Denies pain. Has had a few falls since the namenda. Feels her balance is sometimes off chronically. No focal numbness or weakness. 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 Has had surgery on the right and no injections. Discussed that when she is not as active it seemsworse. Discussed watching it and to consider therapy or ortho if continues. HYPERLIPIDEMIA: Patient is taking medications: No. Patient is watching diet: No. Patient denies myalgias: No. Had issues with Simvastatin Constance changed to Atorvastatin and Dr. Rivastopped it. Not sure why. Patient denies gi upset: Yes GERD: Patient takes: Protonix and Pepcid. Heartburn is controlled: Yes. Bloody or black stools: No. Bowel changes: No. Some trouble with constipation. Takes Senna Plus PULM: does not use cpap Still taking her thyroid meds. She is getting lazy. Works four days a week at [employer]. No chest pain. Occasionally winded but thinks it is due to age and out of shape. No edema. Memory is no worse since namenda being off. Had cmp, vit d and tsh, cbc in last few months Sees Dr Kirkland for a bladder stimulator. MEDICATIONS: Current Outpatient Medications Medication Sig FLUoxetine (PROZAC) 40 mg capsule Take 40 mg by mouth once daily. levothyroxine 25 mcg cap Take 25 mcg by mouth daily before breakfast. pantoprazole DR (PROTONIX) 40 mg tablet Take 40 mg by mouth once daily. meloxicam (MOBIC) 7.5 mg tablet Take 7.5 mg by mouth once daily. mirabegron (MYRBETRIQ) 50 mg Tb24 Take 25 mg by mouth once daily. donepezil (ARICEPT) 10 mg tablet Take 10 mg by mouth daily at bedtime. famotidine (PEPCID) 40 mg tablet Take 40 mg by mouth once daily. albuterol HFA (PROVENTIL HFA, VENTOLIN HFA) 90 mcg/actuation inhaler Inhale 2 Puffs as instructed every 4 hours as needed. fluticasone (FLONASE) 50 mcg/actuation nasal spray Use 2 Sprays in each nostril once daily. Rinse mouth after use. acetaminophen (TYLENOL 8 HOUR ORAL) Take 500 mg by mouth twice daily. No current facility-administered medications for this visit. ALLERGIES: ALLERGIES Allergen Reactions Vioxx [Rofecoxib] Zocor [Simvastatin] Other: See Comments elevated CPK PAST MEDICAL HISTORY Diagnosis Date Asthma 03/11/2010 Diarrhea Elevated CK 04/26/2012 Hyperlipidemia 04/26/2012 Impingement syndrome of right shoulder 10/11/2016 Neurogenic bladder, NOS Other and unspecified hyperlipidemia Other forms of migraine Overactive bladder 02/12/2009 Primary localized osteoarthrosis, lower leg Rotator cuff syndrome 02/12/2009 Situational depression 05/31/2018 Unspecified sleep apnea Urinary incontinence 03/11/2010 PAST SURGICAL HISTORY Procedure Laterality Date ADENOIDECTOMY PRIMARY <AGE 10 Adenoidectomy APPENDECTOMY COLONOSCOPY W/BIOPSY SINGLE/MULTIPLE 06/21/11 DILATION & CURETTAGE DX&/THER NONOBSTETRIC Dilation & curettage LAPAROSCOPY SURG CHOLECYSTECTOMY 07-15-06 Cholecystectomy, lap PAST SURGICAL HISTORY OF N/A 2017 urinary implant device TONSILLECTOMY PRIMARY/SECONDARY <AGE 10 Tonsillectomy VAGINAL HYSTERECTOMY UTERUS 250 GM/< Hysterectomy, vaginal FAMILY HISTORY Problem Relation Age of Onset other (dementia [Other]) Father Heart Father Heart Mother Heart Brother Social History Tobacco Use Smoking status: Never Smokeless tobacco: Never Substance Use Topics Alcohol use: No Drug use: No Reviewed current medications, allergies, past medical history, surgical history, family history andsocial history today. REVIEW OF SYSTEMS All other reviewed and negative other than HPI. HEALTH MAINTENANCE: Reviewed health maintenance issues today and recommended the following in detail. HEPATITIS C SCREENING Never done ADVANCE DIRECTIVE DISCUSSION- has dpoa. Son and daugter are surrogate. ANNUAL PCP TEAM CHRONIC DISEASE VISIT due on 06/09/2021 COVID-19 VACCINE(5 - Booster for Pfizer series) due on 10/21/2021 INFLUENZA(1) due on 01/07/2022 VITALS: BP 126/72 Pulse (!) 55 Ht 154.9 cm (5' 1) Wt 77.6 kg (171 lb) SpO2 94% BMI 32.31 kg/m Last 4 Encounter Wt Readings: Date: Wt: 12/18/2021 78.2 kg (172 lb 6.4 oz) 02/15/2021 75.8 kg (167 lb) 10/23/2020 74.9 kg (165 lb 3.2 oz) 06/18/2020 72.8 kg (160 lb 6.4 oz) PHYSICAL EXAMINATION: General appearance: Well appearing, alert, in no acute distress, well-hydrated, well nourished. Neck: Supple, no adenopathy; thyroid symmetric, normal size, no bruits Lungs: Lungs clear to auscultation. No wheezing, rhonchi, rales Heart: RRR without murmur, gallop, or rubs. No ectopy Abdomen: Normal abdominal exam, Abdomen soft, non-tender. Bowel sounds normal. No masses, organomegaly Extremities: No deformities, edema, skin discoloration, clubbing or cyanosis. Good capillary refill. Musculoskeletal: No joint swelling, deformity, or tenderness Peripheral pulses: Normal Mentally stable. ASSESSMENT/PLAN: 1. Uncomplicated asthma, unspecified asthma severity, unspecified whether persistent - ICD9: 493.90, ICD10: J45.909 (primary diagnosis) - stable. - CBC + DIFF 2. Special screening examination for viral disease - ICD9: V73.99, ICD10: Z11.59 - check hp c 3. Encounter for immunization - ICD9: V03.89, ICD10: Z23 - flu shot 4. Unspecified sleep apnea - ICD9: 780.57, ICD10: G47.30 - cannot treate 5. Hyperlipidemia LDL goal <100 - ICD9: 272.4, ICD10: E78.5 - to be determined upon return of lab results - Encouraged following a low carbohydrate, healthy oil intake diet. - COMP METABOLIC PANEL - LIPID PANEL BASIC 6. Statin intolerance - ICD9: 995.27, ICD10: Z78.9 - as above. 7. Situational depression - ICD9: 309.0, ICD10: F43.21 - continue meds. 8. Need for influenza vaccination - ICD9: V04.81, ICD10: Z23 - INFLUENZA SEASONAL QUADRIVALENT HIGH DOSE AGE 65+ 9. Overactive bladder - ICD9: 596.51, ICD10: N32.81 - continue as above. 10. Hypothyroidism, acquired - ICD9: 244.9, ICD10: E03.9 - TSH BLD 11. Need for hepatitis C screening test - ICD9: V73.89, ICD10: Z11.59 - HEP C AB IA W/CONF SCRN Dinah Melgar MD RTO in six months [facility] History of Present illness Narrative* Patience Sheridan RT(R) - 01/06/2022 10:20 AM EDT Radiology Service Progress Note PATIENT NAME: Georgina Segura DATE OF SERVICE: January 06, 2022 TIME: 10:33 AM PATIENT IDENTITY VERIFICATION COMPLETED USING TWO (2) IDENTIFIERS: Name and Date of confirmedby patient verbally. FALL SCREENING: Has the patient had 2 falls in the last year or 1 fall with injury or currently using an Ambulatory Assistive Device (Walker, Cane, Wheelchair, Crutches, etc.)? No PATIENT GENDER DATA: Female. status: : No status: NO. PATIENT RELEVANT IMPLANT DATA REVIEWED: Not Applicable RADIOLOGY DEPARTMENT: General X-ray: Exam(s) Completed: Lower Extremity X- Ray(s): Feet, Bilateral and Wt. Bearing PERIPHERAL IV DATA: Not applicable SIGNED BY: RT Klever(R) January 06, 2022 10:33 AM documented in [facility] encounterDet[facility] History of Present illness Narrative* Ryland Covarrubias 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 - 12/18/2021 7:11 PM EDT Images from the original note were not included. Subjective HPI HPI Georgina Segura is a 76 year old female who presents today for CC of left leg injury. This started few hours ago. Has tried nothing for relief. Symptoms are worsened by nothing. Last tetanus 2012. Able to walk without pain. .Patient presents with: Laceration: L lower leg cut on metal stripping on floor x today PAST MEDICAL HISTORY Diagnosis Date Asthma 03/11/2010 Diarrhea Elevated CK 04/26/2012 Hyperlipidemia 04/26/2012 Impingement syndrome of right shoulder 10/11/2016 Neurogenic bladder, NOS Other and unspecified hyperlipidemia Other forms of migraine Overactive bladder 02/12/2009 Primary localized osteoarthrosis, lower leg Rotator cuff syndrome 02/12/2009 Situational depression 05/31/2018 Unspecified sleep apnea Urinary incontinence 03/11/2010 PAST SURGICAL HISTORY Procedure Laterality Date ADENOIDECTOMY PRIMARY <AGE 10 Adenoidectomy APPENDECTOMY COLONOSCOPY W/BIOPSY SINGLE/MULTIPLE 06/21/11 DILATION & CURETTAGE DX&/THER NONOBSTETRIC Dilation & curettage LAPAROSCOPY SURG CHOLECYSTECTOMY 07-15-06 Cholecystectomy, lap PAST SURGICAL HISTORY OF N/A 2016 urinary implant device TONSILLECTOMY PRIMARY/SECONDARY <AGE 10 Tonsillectomy VAGINAL HYSTERECTOMY UTERUS 250 GM/< Hysterectomy, vaginal ALLERGIES Vioxx [Rofecoxib] and Zocor [Simvastatin] MEDICATIONS alendronate (FOSAMAX) 70 mg tablet Take 1 tablet by mouth one time a week. Take with a full glass of water, on an empty stomach; do NOT lie down for 30minutes. albuterol HFA (PROVENTIL HFA, VENTOLIN HFA) 90 mcg/actuation inhaler Inhale 2 Puffs as instructed every 4 hours as needed. FLUoxetine (PROZAC) 20 mg capsule Take 1 capsule by mouth once daily. omeprazole (PRILOSEC) 20 mg capsule Take 1 capsule by mouth once daily. atorvastatin (LIPITOR) 40 mg tablet Take as many doses as tolerated /week. (max 1/day; 7/wk)For cholesterol. fluticasone (FLONASE) 50 mcg/actuation nasal spray Use 2 Sprays in each nostril once daily. Rinse mouth after use. acetaminophen (TYLENOL 8 HOUR ORAL) Take 500 mg by mouth twice daily. OXYBUTYNIN CHLORIDE ORAL Take 10 mg by mouth. MAGNESIUM ORAL Take 2 tablets by mouth once daily. APPLE CIDER VINEGAR ORAL Take 2 capsules by mouth once daily. COMPOUNDED PRESCRIPTION bioflex 1 tab daily FOLIC ACID 400 MCG TAB Take one(1) tablet daily. CENTRUM SILVER TAB Take one(1) tablet daily. mupirocin (BACTROBAN) 2 % ointment Apply to affected area three times daily for 10 days. naproxen (NAPROSYN) 500 mg tablet Take 1 tablet by mouth twice daily as needed (arthritis pain). Take with food. FAMILY HISTORY Problem Relation Age of Onset other (dementia [Other]) Father Heart Father Heart Mother Heart Brother Social History Tobacco Use Smoking status: Never Smokeless tobacco: Never Substance Use Topics Alcohol use: No Drug use: No ROS Objective Blood pressure 162/90, pulse 82, temperature 36.3 C (97.4 F), resp. rate 20, weight 78.2 kg (172 lb6.4 oz), SpO2 97 %. Physical Exam Constitutional: General: She is not in acute distress. Appearance: She is not toxic-appearing or diaphoretic. HENT: Head: Normocephalic and atraumatic. Pulmonary: Effort: Pulmonary effort is normal. No accessory muscle usage or respiratory distress. Skin: Neurological: Mental Status: She is alert and oriented to person, place, and time. ASSESSMENT/PLAN: 1. Skin tear of left lower leg without complication, initial encounter - ICD9: 891.0, ICD10: S81.812A (primary diagnosis) Keep clean and covered Wash with soap and water at least daily Keep antibiotic ointment or petrolium jelly on wound Follow up if symptoms of infection occur. - MUPIROCIN 2 % TOPICAL OINTMENT 2. Need for tetanus booster - ICD9: V03.7, ICD10: Z23 Updated Agrees to plan Ryland Covarrubias APRN.CNP documented in this encounterDet[facility] Instructions* Patient Instructions* Ryland Covarrubias APRN.CNP - 12/18/2021 7:06 PM EDT ASSESSMENT/PLAN: 1. Skin tear of left lower leg without complication, initial encounter - ICD9: 891.0, ICD10: S81.812A (primary diagnosis) Keep clean and covered Wash with soap and water at least daily Keep antibiotic ointment or petrolium jelly on wound Follow up if symptoms of infection occur. - MUPIROCIN 2 % TOPICAL OINTMENT 2. Need for tetanus booster - ICD9: V03.7, ICD10: Z23 updated documented in this encounterDet[facility]10[facility] History of Present illness Narrative* Celine Araiza RT(R) - 02/16/2021 3:00 PM EDT Radiology Service Progress Note PATIENT NAME: Georgina Segura DATE OF SERVICE: February 16, 2021 TIME: 2:55 PM PATIENT IDENTITY VERIFICATION COMPLETED USING TWO (2) IDENTIFIERS: Name and Date of confirmedby patient verbally. FALL SCREENING: Has the patient had 2 falls in the last year or 1 fall with injury or currently using an Ambulatory Assistive Device (Walker, Cane, Wheelchair, Crutches, etc.)? No PATIENT GENDER DATA: Female. status: : No status: NO. PATIENT RELEVANT IMPLANT DATA REVIEWED: Yes RADIOLOGY DEPARTMENT: General X-ray: Exam(s) Completed: Rib X-Ray: Right PERIPHERAL IV DATA: Not applicable SIGNED BY: RT Yessi(R) February 16, 2021 2:55 PM documented in this encounterDet[facility]06-17-[facility]21 History of Present illness Narrative* Celine Araiza RT(R) - 10/23/2020 8:00 AM EDT Radiology Service Progress Note PATIENT NAME: Georgina Segura DATE OF SERVICE: October 23, 2020 TIME: 8:25 AM PATIENT IDENTITY VERIFICATION COMPLETED USING TWO (2) IDENTIFIERS: Name and Date of confirmedby patient verbally. FALL SCREENING: Has the patient had 2 falls in the last year or 1 fall with injury or currently using an Ambulatory Assistive Device (Walker, Cane, Wheelchair, Crutches, etc.)? No PATIENT GENDER DATA: Female. status: : No status: NO. PATIENT RELEVANT IMPLANT DATA REVIEWED: Yes RADIOLOGY DEPARTMENT: General X-ray: Exam(s) Completed: Lower Extremity X- Ray(s): Knee, AP / Lat / Tunne / Merchant Left and Wt. Bearing PERIPHERAL IV DATA: Not applicable SIGNED BY: RT Yessi(R) October 23, 2020 8:25 AM documented in this encounterDet[facility]06[facility] History of Past illness Narrative* Problem Noted Date Resolved Date Impingement syndrome of right shoulder 7 05/18/2017 Rotator cuff strain 04/23/2015 05/18/2017 Right rotator cuff tear 06/28/2013 04/10/20 14 Impingement syndrome of right shoulder 4 04/10/2014 Supraspinatus tendonitis 12/06/20122 014 Hyperlipidemia 04/26/2012 04/10/2014 Elevated CK 04/26/2012 04/10/2014 Diarrhea 06/21/2011 04/10/2014 Rotator cuff syndrome 02/12/2009 04/10/2014 documented as of this encounter (statuses as of 12/18/2021) [facility] History of Past illness Narrative* Problem Noted Date Resolved Date Impingement syndrome of right shoulder 7 05/18/2017 Rotator cuff strain 04/23/2015 05/18/2017 Right rotator cuff tear 06/28/2013 04/10/20 14 Impingement syndrome of right shoulder 4 04/10/2014 Supraspinatus tendonitis 12/06/201204/10/2 014 Hyperlipidemia 04/26/2012 04/10/2014 Elevated CK 04/26/2012 04/10/2014 Diarrhea 06/21/2011 04/10/2014 Rotator cuff syndrome 02/12/2009 04/10/2014 documented as of this encounter (statuses as of 01/07/2022) [facility] Hospital[facility]ult note Author Sonali Scott [facility] Note Date/Time August 15, 2024 1:48 pm [facility] Medical Records Department [address] [address] Counseling Note - Pharmacy 08/15/24 1348 MR#: [id number] Acct: [id number] Name: GEORGINA SEGURA Rep #:[id number] : 1945 79 From: Sonali Scott PCP: Dr. Dinah Melgar MD Status:ADM I N Y Location: [place] [address] [place] Med Reconciliation Pharmacy Service has performed discharge medication reconciliation for this patient. Medication education papers prepared, patient discharged when counseling was attempted. The patient's discharge medication list was reviewed for discrepancies and discrepancies were resolved. Medications at Discharge Home Medications famotidine 40 mg tablet 40 mg PO QHS GERD 06/11/22 mirabegron 50 mg tablet,extended release 24 hr (Myrbetriq) 50 mg PO DAILY OAB 06/11/22 pantoprazole 40 mg granules delayed-release for susp in packet 40 mg PO DAILY GERD 06/11/22 ezetimibe 10 mg tablet 10 mg PO DAILY cholestorol 03/28/23 albuterol sulfate 90 mcg/actuation aerosol inhaler 2 inh inhalation Q4H PRN SOB,Wheezing 08/23/23 acetaminophen 500 mg tablet 1,000 mg (2 x 500 mg) PO Q8 pain #180 tabs 09/07/23 carvedilol 6.25 mg tablet 6.25 mg PO BIDCM heart #60 tabs 09/07/23 fluoxetine 20 mg capsule (Prozac) 20 mg PO DAILY mood #30 caps 09/07/23 ipratropium bromide 42 mcg (0.06 %) nasal spray 2 spray NASAL TID #1 BOTTLE 09/07/23 levothyroxine 50 mcg tablet 50 mcg PO DAILY@0600 thyroid #30 tabs 09/07/23 solifenacin 10 mg tablet 10 mg PO DAILY bladder 08/12/24 polyethylene glycol 3350 17 gram/dose oral powder (Miralax) 17 g PO BID PRN constipation 08/13/24 cephalexin 500 mg capsule 500 mg PO BID #10 caps 08/15/24 08/15/24 1348 <Electronically signed by Sonali Scott> Date _ Sonali Niñoignlo Signature (if applicable): Date CC: ~ Signed [facility] Work Phone: Discharge summary Author Jesus Duenas [facility] June 11, 2022 7:43am Note Date/Time June 11, 2022 6 :54am [facility] Medical Records Department [address] [place] [address] Emergency Department Summary 06/11/22 MR#: [id number] Acct: [id number] Name: GEORGINA SEGURA Rep #:[id number] : 1945 76 From: Jesus Duenas DO PCP: Dr. Dinah Melgar MD Status:REG E R Location: ED HPI History of Present Illness Chief Complaint: Fall Narrative Narrative: Patient is a 76-year-old female with past medical history of hypothyroidism neurogenic bladder GERD and previous skull fracture. She states she was in bed last night when she accidentally rolled over and fell out of bed. She states she fell approximately 2 feet landing on a wooden floor. She states she did strike her head/face. She denies any loss of consciousness. She states she tried to get back up and lost her balance once again and fell from a kneeling position back to the ground and struck her head once again. Again she states there is no loss of consciousness with this injury. She states that she developed a knot on her forehead from the trauma and she iced it but despite this she had increased bruising and with her previous history of underlying skull fracture she was concerned for repeat injury with this fall and therefore comes in for evaluation [facility] Medical History GERD (gastroesophageal reflux disease) Hypothyroid Home Medications donepezil 10 mg tablet 10 mg PO DAILY 06/11/22 [History Last Taken Unknown] famotidine 40 mg tablet 40 mg PO DAILY 06/11/22 [History Last Taken Unknown] fluoxetine 40 mg capsule 40 mg PO DAILY 06/11/22 [History Last Taken Unknown] levothyroxine 25 mcg tablet (Synthroid) 25 mcg PO DAILY 06/11/22 [History Last Taken Unknown] meloxicam 7.5 mg tablet 7.5 mg PO DAILY 06/11/22 [History Last Taken Unknown] mirabegron 50 mg tablet,extended release 24 hr (Myrbetriq) 50 mg PO DAILY 06/11/22 [History Last Taken Unknown] pantoprazole 40 mg granules delayed-release for susp in packet 40 mg PO DAILY 06/11/22 [History Last Taken Unknown] Allergy/AdvReac Type Severity Reaction Status Date / Time rofecoxib [From Vioxx] Allergy Unknown Verified 06/11/22 06:14 Surgical History H/O lateral meniscus repair of right knee History of appendectomy History of cholecystectomy History of partial hysterectomy Social History Smoking Status: Never smoker substance use type: does not use ROS ROS ED Constitutional Constitutional ED: Denies chills or fever(s) Eyes Eyes: Denies change in vision ENT ENT ED: Denies sore throat Cardiovascular Cardiovascular: Denies chest pain Respiratory/Chest Respiratory/Chest: Denies cough or dyspnea Gastrointestinal Gastrointestinal: Denies abdominal pain, diarrhea, nausea or vomiting Genitourinary Genitourinary ED: Denies dysuria Musculoskeletal Musculoskeletal: Reports other Details: Positive right knee pain ; Denies back pain, myalgias or neck pain Integumentary Denies rash Neurologic Neurologic: Denies headache(s), paresthesias or weakness Hematologic/Lymphatic Hematologic/Lymphatic: Denies easy bleeding or easy bruising EXAM Physical Exam Const Vital Signs: 06/11/22 06:09 06/11/22 06:18 Temperature 98.2 F Temperature Source Temporal Pulse Rate 100 Respiratory Rate 16 Respiratory Effort Normal Blood Pressure 156/74 H Blood Pressure Mean 101 Pulse Ox 95 Oxygen Delivery Method Room Air Positive well nourished, well developed and obese General Appearance ED: well developed Nutritional Appearance: obese HEENT Reports moist mucous membranes HEENT Narrative: No signs of depressed or basilar skull fracture. Patient has a 2 x 2 centimeterhematoma with ecchymosis tracking down the right side of her frontal bone towards the orbit consistent with report of trauma. No septal hematoma noted. Patient does have a small 1 cm skin laceration to the right portion of the upperlip that does not involve the vermilion border without active bleeding or foreign body. The wound is dermal layer deep Eyes PERRL and EOMs intact bilaterally Eyes Narrative: No hyphema noted Neck supple Neck Narrative: No bony deformity or step-off of the cervical spine no midline pain on palpation Patient can move her neck in all directions without pain Chest Wall palpation of chest normal Chest Narrative: No bony deformity or crepitance Resp normal respiratory effort and clear to auscultation bilaterally Cardio regular rate and regular rhythm GI normal to inspection, nondistended, normoactive bowel sounds, non-tender, non-distended and no masses Auscultation: normoactive bowel sounds Palpation: soft Back/Spine Back/Spine Narrative: No bony deformity or step-off of the thoracic or lumbar spine no midline pain onpalpation Extremity Extremity Narrative: Pelvis is stable there is no shortening or external rotation of either lower extremity. Patient does have mild pain on palpation over top the superior and inferior pubic rami region on the right There is mild soft tissue swelling to the anterior aspect of the right knee withpain on palpation over top the patella. No obvious bony deformity or joint effusion. Patellar tendon is intact and knee ligaments are stable. Remainder ofthe exam is normal. Neuro oriented x3, CN's II-XII intact bilaterally and no sensory deficits noted Sensorium / Orientation: alert Psych mental status grossly normal Skin Skin Narrative: Hematoma to the forehead as documented above along with upper lip skin laceration MDM MDM MDM Narrative Medical decision making narrative: Patient presented to the ER with a mechanical fall and therefore there was no need for cardiac or syncope work-up. With the physical exam showing signs of head injury I did elect to perform CTs of the head neck and face. This revealedhematoma consistent with her history and exam but no underlying trauma. Imagingof the long bones also revealed no acute fracture or dislocation. The patient'slip laceration was sutured as documented below. Following this as work-up reveals no signs of acute trauma and patient reports has been able to ambulate since the fall there is no need for further work-up and she is otherwise safe for discharge Patient had the upper lip laceration cleaned with chlorhexidine. It was anesthetized with 4 mL of 1% lidocaine without epinephrine in local fashion. The wound was copiously irrigated with normal saline then three 5-0 Ethilon sutures were placed in simple interrupted fashion. This brought the wound together with good approximation. Patient tolerated procedure well without complication Radiography Diagnostic Testing: Clinical Impression(s) from Imaging Studies Brain CT 06/11/22 06:30 IMPRESSION: Scalp contusion. No evidence of acute intracranial injury. Chronic microvascular ischemic disease. Small hyperdense nodule in the third ventricle unchanged. Electronically Signed: Yessy Avendaño MD at 7:18 EST , Cervical Spine CT 06/11/22 06:30 IMPRESSION: No evidence of fracture or traumatic subluxation. Minimal anterolisthesis at C4-5 likely secondary to degenerative changes. Straightening of the normal curvature may be due to positioning or muscle spasm. No significant change compared to prior study. Electronically Signed: Yessy Avendaño MD at 7:23 EST , Facial/Sinus 06/11/22 06:30 IMPRESSION: No evidence of fracture. Electronically Signed: Yessy Avendaño MD at 7:27 EST , Knee X-Ray 06/11/22 06:45 IMPRESSION: Severe degenerative arthrosis. Electronically Signed: Araceli Fu MD at 7:16 EST , Pelvis X-Ray 06/11/22 06:45 IMPRESSION: No evidence of fracture on single view pelvis. Electronically Signed: Yessy Avendaño MD at 7:29 EST , X-ray of the right knee as interpreted by the emergency medicine physician reveals no acute fracture dislocation or joint effusion 1 view pelvis x-ray as interpreted by the emergency medicine physician reveals no acute fracture or dislocation Discharge Plan Triage Chief Complaint: Fall ED Provider: Jesus Duenas Dx/Rx/DC Orders Clinical Impression: Closed head injury, Hematoma of frontal scalp, Facial laceration, Contusion of right knee Instructions: ED Head Injury (Adult), ED Hematoma, ED Laceration: All Closures Prescriptions: No Action fluoxetine 40 mg Capsule 40 mg PO DAILY donepezil 10 mg Tablet 10 mg PO DAILY famotidine 40 mg Tablet 40 mg PO DAILY levothyroxine [Synthroid] 25 mcg Tablet 25 mcg PO DAILY meloxicam 7.5 mg Tablet 7.5 mg PO DAILY pantoprazole [address] For Susp In Packet 40 mg PO DAILY Myrbetriq 50 mg Tablet Extended Release 24 Hr 50 mg PO DAILY Primary Care Provider: Dinah Melgar Referrals: Dinah Melgar MD [Primary Care Provider] - Activity Restrictions/Additional Instructions: Please return to the ER or see your family doctor in 5 to 7 days for suture removal. Your work-up today revealed no signs of underlying head trauma such asskull fracture or brain bleed or broken bones Disposition Disposition: Home, Self Care What to do if you have Problems For any increased pain, shortness of breath, bleeding, nausea or vomiting, chestpain, or any unexpected problems, contact your Primary Care Provider. Call [facility] ([phone]) or report to the closest Emergency Room. Call 911 if necessary. 06/11/22 0743 <Electronically signed by Jesus Duenas DO> Cosigner Signature (if applicable): CC: Dr. Dinah Melgar MD ~ Signed [facility] Work Phone: Evaluation noteNo assessment information available [facility] Work Phone: Evaluation note* Diagnosis Onset Date Resolution Status Closed head injury acute [facility] Work Phone: Evaluation note* Diagnosis Skin tear of left lower leg without complication, initial encounter- Primary Need for tetanus booster Need for prophylactic vaccination with tetanus toxoid alone [facility] Bilateral foot pain Pain in limb [facility] Diagnosis Uncomplicated asthma, unspecified asthma severity, unspecified whether persistent- Primary Unspecified sleep apnea Hyperlipidemia LDL goal <100 Other and unspecified hyperlipidemia Statin intolerance Other drug allergy Situational depression Adjustment disorder with depressed mood Need for influenza vaccination Need for prophylactic vaccination and inoculation against influenza Overactive bladder Hypertonicity of bladder Hypothyroidism, acquired Unspecified hypothyroidism Need for hepatitis C screening test Special screening examination for other specified viral diseases [facility] Diagnosis Acute COVID-19- Primary [facility] Diagnosis Onset Date Resolution Status COVID acute [facility] Work Phone: Evaluation note* Diagnosis Numbness and tingling of both feet- Primary Familial tremor Essential and other specified forms of tremor Balance disorder Other symptoms involving nervous and musculoskeletal systems Ataxia Lack of coordination Falls frequently Personal history of fall Mild cognitive impairment Mild cognitive impairment, so stated NAYA (obstructive sleep apnea) Obstructive sleep apnea (adult) (pediatric) [facility] Diagnosis Acute cough- Primary Dementia without behavioral disturbance (HCC) Dementia, unspecified, without behavioral disturbance Imbalance Abnormality of gait [facility] Diagnosis Falls frequently- Primary Personal history of fall Balance disorder Other symptoms involving nervous and musculoskeletal systems Numbness and tingling of both feet [facility] Diagnosis Gastroesophageal reflux disease without esophagitis- Primary Esophageal reflux Chronic cough Cough Mild intermittent asthma, uncomplicated Unspecified asthma Imbalance Abnormality of gait Acute pain of left shoulder [facility] Diagnosis Balance disorder- Primary Other symptoms involving nervous and musculoskeletal systems Falls frequently Personal history of fall Numbness and tingling of both feet [facility] Diagnosis Balance disorder- Primary Other symptoms involving nervous and musculoskeletal systems Falls frequently Personal history of fall Numbness and tingling of both feet [facility] Acute pain of left shoulder- Primary Balance disorder Other symptoms involving nervous and musculoskeletal systems Falls frequently Personal history of fall Numbness and tingling of both feet [facility] Diagnosis Acute pain of left shoulder- Primary Balance disorder Other symptoms involving nervous and musculoskeletal systems Falls frequently Personal history of fall Numbness and tingling of both feet [facility] Acute pain of left shoulder- Primary Balance disorder Other symptoms involving nervous and musculoskeletal systems Falls frequently Personal history of fall Numbness and tingling of both feet [facility] Diagnosis Laceration of left index finger without foreign body without damage to nail, initial encounter- Primary [facility] Diagnosis Acute pain of left shoulder- Primary Balance disorder Other symptoms involving nervous and musculoskeletal systems Falls frequently Personal history of fall Numbness and tingling of both feet [facility] Diagnosis Balance disorder- Primary Other symptoms involving nervous and musculoskeletal systems Falls frequently Personal history of fall Numbness and tingling of both feet [facility] Diagnosis Balance disorder- Primary Other symptoms involving nervous and musculoskeletal systems Acute pain of left shoulder Falls frequently Personal history of fall Numbness and tingling of both feet [facility] Diagnosis Balance disorder- Primary Other symptoms involving nervous and musculoskeletal systems Falls frequently Personal history of fall Numbness and tingling of both feet Acute pain of left shoulder [facility] Diagnosis Acute cough- Primary Mild intermittent asthma, uncomplicated Unspecified asthma Uncomplicated asthma, unspecified asthma severity, unspecified whether persistent Unspecified sleep apnea Hyperlipidemia LDL goal <100 Other and unspecified hyperlipidemia Overactive bladder Hypertonicity of bladder Hypothyroidism, acquired Unspecified hypothyroidism Statin intolerance Other drug allergy History of skull fracture Personal history of traumatic fracture Depression, recurrent (HCC) Major depressive disorder, recurrent episode, unspecified Dementia without behavioral disturbance (HCC) Dementia, unspecified, without behavioral disturbance Bronchitis Bronchitis, not specified as acute or chronic Multiple falls Personal history of fall Contusion of other part of head, initial encounter [facility] Diagnosis Dizziness- Primary Dizziness and giddiness [facility] Diagnosis Balance disorder- Primary Other symptoms involving nervous and musculoskeletal systems Hypothyroidism, acquired Unspecified hypothyroidism Falls frequently Personal history of fall Numbness and tingling of both feet 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 behavioral disturbance (HCC) Seasonal allergic rhinitis due to pollen [facility] Diagnosis Onychomycosis- Primary Dermatophytosis of nail Pain in toe of left foot Pain in limb Pain in toe of right foot Pain in limb [facility] Diagnosis Urinary tract infection without hematuria, site unspecified- Primary [facility] Diagnosis Onset Date Resolution Status Closed head injury acute Debility acute Dementia acute Elevated TSH acute Glucose intolerance (impaired glucose tolerance) acute Heme positive stool acute Noncompliance with CPAP treatment acute Anxiety chronic Depression chronic Frequent falls chronic HTN (hypertension) chronic Hypothyroid chronic NAYA (obstructive sleep apnea) chronic Lightheadedness resolved Nausea and vomiting resolved [facility] Work Phone: Evaluation note* Diagnosis History of cervical fracture- Primary Personal history of traumatic fracture Obesity, Class I, BMI 30-34.9 Obesity, unspecified Falls frequently Personal history of fall Hypothyroidism, acquired Unspecified hypothyroidism 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 behavioral disturbance (HCC) Anxiety Anxiety state, unspecified Renal insufficiency Unspecified disorder of kidney and ureter Blood in stool Primary hypertension Unspecified essential hypertension documented in this encounter [facility] note* Diagnosis Closed odontoid fracture, sequela- Primary [facility] Diagnosis Onset Date Resolution Status Closed head injury acute Debility acute Elevated TSH acute Heme positive stool acute Anxiety chronic HTN (hypertension) chronic Closed type II fracture of odontoid process resolved Lightheadedness resolved Nausea and vomiting resolved [facility] Work Phone: Evaluation note* Diagnosis Onychomycosis- Primary Dermatophytosis of nail Pain in toe of left foot Pain in limb Pain in toe of right foot Pain in limb [facility] Diagnosis Closed odontoid fracture with routine healing, subsequent encounter- Primary [facility] Diagnosis Closed odontoid fracture with routine healing, subsequent encounter- Primary Hyperlipidemia LDL goal <100 Other and unspecified hyperlipidemia Unspecified sleep apnea Uncomplicated asthma, unspecified asthma severity, unspecified whether persistent Mild intermittent asthma, uncomplicated Unspecified asthma Hypothyroidism, acquired Unspecified hypothyroidism Depression, recurrent (HCC) Major depressive disorder, recurrent episode, unspecified Statin intolerance Other drug allergy Mixed incontinence Mixed incontinence urge and stress (male)(female) documented in this encounter [facility] note* Diagnosis Closed odontoid fracture, sequela- Primary [facility] Diagnosis Closed nondisplaced odontoid fracture with type II morphology and nonunion, subsequent encounter [facility] Diagnosis Acute pain of left shoulder [facility] Diagnosis Acute cough [facility] Diagnosis Hyperlipidemia LDL goal <100- Primary Other and unspecified hyperlipidemia Gastroesophageal reflux disease without esophagitis Esophageal reflux Hypothyroidism, acquired Unspecified hypothyroidism Statin intolerance Other drug allergy History of skull fracture Personal history of traumatic fracture Balance disorder Other symptoms involving nervous and musculoskeletal systems Depression, recurrent (HCC) Major depressive disorder, recurrent episode, unspecified Need for vaccination Need for prophylactic vaccination and inoculation against unspecified single disease Encounter for screening examination for other mental health and behavioral disorders Disorder of bone Disorder of bone and cartilage, unspecified Closed odontoid fracture with routine healing Other osteoporosis Fatigue, unspecified type Primary hypertension Unspecified essential hypertension Chronic kidney disease, stage 3a ([facility]) [facility] Diagnosis Closed odontoid fracture, sequela- Primary [facility]* Diagnosis Fall from slip, trip, or stumble, initial encounter Rib pain on right side Chest pain, unspecified [facility]* Diagnosis Knee injury, left, initial encounter [facility] Diagnosis History of skull fracture Personal history of traumatic fracture Disorder of bone Disorder of bone and cartilage, unspecified Closed odontoid fracture with routine healing Other osteoporosis [facility] Diagnosis Onychomycosis- Primary Dermatophytosis of nail Pain in toe of left foot Pain in limb Pain in toe of right foot Pain in limb [facility] Diagnosis Hyperlipidemia LDL goal <100- Primary Other and unspecified hyperlipidemia Closed odontoid fracture, sequela [facility] Diagnosis Closed odontoid fracture, sequela [facility] Diagnosis Acute pain of right shoulder [facility] Diagnosis Onychomycosis- Primary Dermatophytosis of nail Pain in toe of left foot Pain in limb Pain in toe of right foot Pain in limb Skin neoplasm Neoplasm of unspecified nature of bone, soft tissue, and skin documented [facility]* Diagnosis Closed odontoid fracture, sequela- Primary [facility]* Diagnosis Closed odontoid fracture, sequela documented in this encounter [facility] note* Diagnosis Balance disorder- Primary Other symptoms involving nervous and musculoskeletal systems Hyperlipidemia LDL goal <100 Other and unspecified hyperlipidemia Statin intolerance Other drug allergy Uncomplicated asthma, unspecified asthma severity, unspecified whether persistent Gastroesophageal reflux disease without esophagitis Esophageal reflux Overactive bladder Hypertonicity of bladder Hypothyroidism, acquired Unspecified hypothyroidism Closed odontoid fracture with routine healing Depression, recurrent (HCC) Major depressive disorder, recurrent episode, unspecified Obesity, Class I, BMI 30-34.9 Obesity, unspecified Falls frequently Personal history of fall Knee pain, unspecified chronicity, unspecified laterality Primary hypertension Unspecified essential hypertension Skin lesion Unspecified disorder of skin and subcutaneous tissue [facility]* Diagnosis Knee pain, unspecified chronicity, unspecified laterality [facility]* Diagnosis Dysuria- Primary Acute low back pain without sciatica, unspecified back pain laterality Acute low back pain without sciatica, unspecified back pain laterality [facility] Diagnosis Acute low back pain without sciatica, unspecified back pain laterality [facility]* Diagnosis Compression fracture of T12 vertebra, sequela- Primary Age-related osteoporosis with current pathological fracture, initial encounter Acute low back pain without sciatica, unspecified back pain laterality [facility]* Diagnosis Closed odontoid fracture, sequela [facility]* Diagnosis Closed odontoid fracture, sequela [facility]* Diagnosis Gastroesophageal reflux disease without esophagitis Esophageal reflux [facility] Problem Noted Date Diagnosed Date Resolved Date Fall 02/16/2023 02/16/2023 02/16/2023 Fracture of skull 02/16/2023 02/16/2023 02/16/2023 Acute pain of left shoulder 11/29/2022 02/16/2023 Cough 11/23/2022 02/16/2023 Dementia without behavioral disturbance 10/11/2022 02/16/2023 Imbalance 10/11/2022 02/16/2023 Special screening examinatio n for viral disease 02/03/2022 02/03/2022 Closed head injury 11/18/2021 02/16/2023 Contusion of forehead 11/18/2021 02/16/20232022 OPENED IN ERROR 10/13/2018 02/03/2022 Situational depression 05/31/201802/16 Tear of biceps tendon 05/18/20172022 Impingement syndrome of right shoulder 10/11/2016 05/18/2017 Rotator cuff strain 04/23/2015 05/18/19 18 Right rotator cuff tear 06/28/201307/2013 Impingement syndrome of right shoulder 06/06/2013 04/10/2014 Supraspinatus tendonitis 12/06/201207/2013 Hyperlipidemia 04/26/2012 04/10/2014 Elevated CK 04/26/2012 04/10/2014 Diarrhea 06/21/2011 04/10/2014 Rotator cuff syndrome 02/12/20092013 documented as of this encounter (statuses as of 02/16/2023) [facility] Additional Instructions Please use the incentive spirometer 10 times every hour while awake. Return for any signs or symptoms of pneumonia, fever or chills.[facility] Work Phone: Hospital Discharge instructions Additional Instructions Implant Used?: [facility] Work Phone: Hospital Discharge instructions Additional Instructions Your laboratory work was grossly unremarkable today. You do not have an elevated white count meaning infection and inflammation. The CT of your abdomen and pelvis did not show any bowel obstruction. You did have a moderate amount of stool in the right colon. It will take some time for it to travel through the transverse and left colon, to the rectosigmoid colon. Follow-up with your primary care provider in the next 1 to 2 days regarding your T12 compression fracture that was age-indeterminate as read on your outpatient x-ray. Continue Tylenol 650 mg every 4-6 hours as needed for pain. Opiates may cause decreased colonic activity. Return to the emergency department with fever, nausea and vomiting, new or worsening symptoms.[facility] Work Phone: Hospital Discharge instructions Additional Instructions Tylenol and Motrin as needed for pain. Follow-up with primary care physician. Return back to the ED if symptoms change or worsen.[facility] Work Phone: Reason for referral (narrative)* Diagnostic Procedure Only (Routine) - Closed Specialty Diagnoses / Procedures Referred By Contac t Referred To Contact XR IMAGING Diagnoses Bilateral foot pain Procedures XR FOOT GENERAL 3V AP/LAT/OBL BILATERAL RADEX FOOT COMPLETE MINIMUM 3 VIEWS Ton Looney [address] [place] [address] Xr Imaging Referral ID Status Reason Start Date Expiration Date V isits Requested Visits Authorized [id number] Closed Auto-Generate d Referral 01/04/2022 02/03/2023 1 1 [facility] for referral (narrative)* Diagnostic Procedure Only (Routine) - Pending Review Specialty Diagnoses / Procedures Referred By Contac t Referred To Contact XR IMAGING Diagnoses Closed odontoid fracture, sequela Procedures XR CERV GENERAL 2V AP/LAT RADEX SPINE CERVICAL 2 OR 3 VIEWS Guillaume Delgado MD, PhD [address] [place] [address] [place] [address] Referral ID Status Reason Start Date Expiration Date Visits Requested Visits Authorized [id number] Pending Review Auto-Generat ed Referral 09/16/2023 10/15/2024 1 1 [facility] for referral (narrative)* Diagnostic Procedure Only (Routine) - Closed Specialty Diagnoses / Procedures Referred By Contac t Referred To Contact XR IMAGING Diagnoses Closed nondisplaced odontoid fracture with type II morphology and nonunion, subsequent encounter Procedures XR CERV GENERAL 2V AP/LAT RADEX SPINE CERVICAL 2 OR 3 VIEWS Joanne Villegas PA-C [address] [place] [address] [place] [address] Referral ID Status Reason Start Date Expiration Date V isits Requested Visits Authorized [id number] Closed Auto-Generate d Referral 08/21/2023 09/19/2024 1 1 T [facility] for referral (narrative)* Diagnostic Procedure Only (Routine) - Closed Specialty Diagnoses / Procedures Referred By Contac t Referred To Contact XR IMAGING Diagnoses Acute pain of left shoulder Procedures XR SHOULDER GENERAL 3V OR MORE AP/TRUE AP/OTHER LEFT RADEX SHOULDER COMPLETE MINIMUM 2 VIEWS iDnah Melgar MD [address] [place] [address] [place] [address] Referral ID Status Reason Start Date Expiration Date V isits Requested Visits Authorized [id number] Closed Auto-Generate d Referral 11/23/2022 12/23/2023 1 1 T [facility] for referral (narrative)* Diagnostic Procedure Only (Routine) - Authorized Specialty Diagnoses / Procedures Referred By Contac t Referred To Contact XR IMAGING Diagnoses History of skull fracture Disorder of bone Closed odontoid fracture with routine healing Other osteoporosis Procedures DXA-AXIAL SKELETON DXA BONE DENSITY STUDY 1/> SITES AXIAL SKEL Dinah Melgar MD [address] [place] [address] [place] [address] Referral ID Status Reason Start Date Expiration Date Visits Requested Visits Authorized [id number] Authorized Auto-Generat ed Referral 01/30/2024 02/28/2025 1 1 [facility] for referral (narrative)* Diagnostic Procedure Only (Routine) - Closed Specialty Diagnoses / Procedures Referred By Contac t Referred To Contact XR IMAGING Diagnoses Fall from slip, trip, or stumble, initial encounter Rib pain on right side Procedures XR RIBS/CHEST 3V AP RIB/OBLS/CXR RT X-RAY RIBS, CHEST 3+ VW Marcelle Marcos, KNIFE OPERATOR.FILING AND POLISHING SUPERVISOR [address] [place] [address] [place] [address] Referral ID Status Reason Start Date Expiration Date V isits Requested Visits Authorized [id number] Closed Auto-Generate d Referral 02/15/2021 03/17/2022 1 1 [facility] for referral (narrative)* Diagnostic Procedure Only (Routine) - Closed Specialty Diagnoses / Procedures Referred By Contac t Referred To Contact XR IMAGING Diagnoses History of skull fracture Disorder of bone Closed odontoid fracture with routine healing Other osteoporosis Procedures DXA-AXIAL SKELETON DXA BONE DENSITY STUDY / SITES AXIAL Dinah Hardy MD [address] [place] [address] [place] [address] Referral ID Status Reason Start Date Expiration Date V isits Requested Visits Authorized [id number] Closed Auto-Generate d Referral 01/30/2024 02/28/2025 1 1 [facility] for referral (narrative)* Diagnostic Procedure Only (Routine) - Authorized Specialty Diagnoses / Procedures Referred By Contac t Referred To Contact XR IMAGING Diagnoses Closed odontoid fracture, sequela Procedures XR CERV OTHER 5V AP/LAT/FLX/EXT/ODON RADEX SPINE CERVICAL 4 OR 5 VIEWS Guillaume Delgado MD, PhD [address] [facility] [place] [address] [place] [address] Referral ID Status Reason Start Date Expiration Date Visits Requested Visits Authorized [id number] Authorized Auto-Generat ed Referral 05/30/2025 1 1 * Diagnostic Procedure Only (Routine) - Closed Specialty Diagnoses / Procedures Referred By Contac t Referred To Contact XR IMAGING Diagnoses Closed odontoid fracture, sequela Procedures XR CERV OTHER 5V AP/LAT/FLX/EXT/ODON RADEX SPINE CERVICAL 4 OR 5 VIEWS Guillaume Delgado MD, PhD [address] [facility] [place] [address] [place] [address] Referral ID Status Reason Start Date Expiration Date V isits Requested Visits Authorized [id number] Closed Auto-Generate d Referral 04/30/2024 05/30/2025 1 1 * Consult, Test, Treat (Routine) - Authorized Specialty Diagnoses / Procedures Referred By Contac t Referred To Contact Diagnoses Hyperlipidemia LDL goal <100 Procedures CONSULT TO PREVENTIVE CARD OFFICE/OUTPATIENT NEW HIGH MDM 60 MINUTES Guillaume Delgado MD, PhD [address] [facility] [place] [address] Referral ID Status Reason Start Date Expiration Date Visits Requested Visits Authorized [id number] Authorized PCP Requested Referral 04/29/2025 1 1 [facility] for referral (narrative)No reason for referral [facility] Phone: Reason for visit Narrative* Diagnostic Procedure Only (Routine) - Closed Specialty Diagnoses / Procedures Referred By Contac t Referred To Contact XR IMAGING Diagnoses Bilateral foot pain Procedures XR FOOT GENERAL 3V AP/LAT/OBL BILATERAL RADEX FOOT COMPLETE MINIMUM 3 VIEWS Ton Looney [address] [place] [address] Xr Imaging Referral ID Status Reason Start Date Expiration Date V isits Requested Visits Authorized [id number] Closed Auto-Generate d Referral 01/04/2022 02/03/2023 1 1 [facility] for visit Narrative* Diagnostic Procedure Only (Routine) - Closed Specialty Diagnoses / Procedures Referred By Contac t Referred To Contact XR IMAGING Diagnoses Closed nondisplaced odontoid fracture with type II morphology and nonunion, subsequent encounter Procedures XR CERV GENERAL 2V AP/LAT RADEX SPINE CERVICAL 2 OR 3 VIEWS Joanne Villegas PA-C [address] [place] [address] [place] [address] Referral ID Status Reason Start Date Expiration Date V isits Requested Visits Authorized [id number] Closed Auto-Generate d Referral 08/21/2023 09/19/2024 1 1 [facility] for visit Narrative* Diagnostic Procedure Only (Routine) - Closed Specialty Diagnoses / Procedures Referred By Contac t Referred To Contact XR IMAGING Diagnoses Acute pain of left shoulder Procedures XR SHOULDER GENERAL 3V OR MORE AP/TRUE AP/OTHER LEFT RADEX SHOULDER COMPLETE MINIMUM 2 VIEWS Dinah Melgar MD [address] [place] [address] [place] [address] Referral ID Status Reason Start Date Expiration Date V isits Requested Visits Authorized [id number] Closed Auto-Generate d Referral 11/23/2022 12/23/2023 1 1 [facility] for visit Narrative* Diagnostic Procedure Only (Routine) - Closed Specialty Diagnoses / Procedures Referred By Contac t Referred To Contact XR IMAGING Diagnoses Fall from slip, trip, or stumble, initial encounter Rib pain on right side Procedures XR RIBS/CHEST 3V AP RIB/OBLS/CXR RT X-RAY RIBS, CHEST 3+ VW Marcelle Marcos, KNIFE OPERATOR.FILING AND POLISHING SUPERVISOR [address] [place] [address] [place] [address] Referral ID Status Reason Start Date Expiration Date V isits Requested Visits Authorized [id number] Closed Auto-Generate d Referral 02/15/2021 03/17/2022 1 1 [facility] for visit Narrative* Diagnostic Procedure Only (Routine) - Closed Specialty Diagnoses / Procedures Referred By Contac t Referred To Contact XR IMAGING Diagnoses History of skull fracture Disorder of bone Closed odontoid fracture with routine healing Other osteoporosis Procedures DXA-AXIAL SKELETON DXA BONE DENSITY STUDY 1/ SITES AXIAL SKEL Dinah Melgar MD [address] [place] [address] [place] [address] Referral ID Status Reason Start Date Expiration Date V isits Requested Visits Authorized [id number] Closed Auto-Generate d Referral 01/30/2024 02/28/2025 1 1 [facility] for visit Narrative* Diagnostic Procedure Only (Routine) - Closed Specialty Diagnoses / Procedures Referred By Contac t Referred To Contact XR IMAGING Diagnoses Closed odontoid fracture, sequela Procedures XR CERV OTHER 5V AP/LAT/FLX/EXT/ODON RADEX SPINE CERVICAL 4 OR 5 VIEWS Guillaume Delgado MD, PhD [address] [place] [address] [place] [address] Referral ID Status Reason Start Date Expiration Date V isits Requested Visits Authorized [id number] Closed Auto-Generate d Referral 04/30/2024 05/30/2025 1 1 [facility] for visit Narrative* Diagnostic Procedure Only (Routine) - Closed Specialty Diagnoses / Procedures Referred By Contac t Referred To Contact XR IMAGING Diagnoses Acute pain of right shoulder Procedures XR SHOULDER GENERAL 3V OR MORE AP/TRUE AP/OTHER RIGHT RADEX SHOULDER COMPLETE MINIMUM 2 VIEWS Dinah Melgar MD [address] [place] [address] [place] [address] Referral ID Status Reason Start Date Expiration Date V isits Requested Visits Authorized [id number] Closed Auto-Generate d Referral 05/28/2024 06/27/2025 1 1 [facility] for visit Narrative* Diagnostic Procedure Only (Routine) - Closed Specialty Diagnoses / Procedures Referred By Contac t Referred To Contact XR IMAGING Diagnoses Closed odontoid fracture, sequela Procedures XR CERV OTHER 5V AP/LAT/FLX/EXT/ODON RADEX SPINE CERVICAL 4 OR 5 VIEWS Guillaume Delgado MD, PhD [address] [place] [address] Phone: tel: fax: [place] [address] Referral ID Status Reason Start Date Expiration Date V isits Requested Visits Authorized [id number] Closed Auto-Generate d Referral 04/30/2024 05/30/2025 1 1 [facility] for visit Narrative* Diagnostic Procedure Only (Routine) - Closed Specialty Diagnoses / Procedures Referred By Contac t Referred To Contact XR IMAGING Diagnoses Knee pain, unspecified chronicity, unspecified laterality Procedures XR KNEE GENERAL 4V AP BOTH/PA BOTH/LAT/MERC BILATERAL RADIOLOGIC EXAM KNEE COMPLETE 4/MORE VIEWS Dinah Melgar MD [address] [place] [address] Phone: tel: fax: [place] [address] Referral ID Status Reason Start Date Expiration Date V isits Requested Visits Authorized [id number] Closed Auto-Generate d Referral 07/30/2024 08/29/2025 1 1 [facility] for visit Narrative* Diagnostic Procedure Only (Urgent) - Closed Specialty Diagnoses / Procedures Referred By Contac t Referred To Contact XR IMAGING Diagnoses Acute low back pain without sciatica, unspecified back pain laterality Procedures XR ABDOMEN 1V SUPINE XR ABDOMEN 1V SUPINE RADIOLOGIC EXAM ABDOMEN 1 VIEW Sylvie Ariza 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 [address] [place] [address] Phone: tel: fax: [place] [address] Referral ID Status Reason Start Date Expiration Date V isits Requested Visits Authorized [id number] Closed Auto-Generate d Referral 08/20/2024 09/19/2025 1 1 [facility] for visit Narrative* Diagnostic Procedure Only (Routine) - Closed Specialty Diagnoses / Procedures Referred By Contac t Referred To Contact XR IMAGING Diagnoses Closed odontoid fracture, sequela Procedures XR CERV OTHER 5V AP/LAT/FLX/EXT/ODON RADEX SPINE CERVICAL 4 OR 5 VIEWS Guillaume Delgado MD, PhD [address] [facility] [place] [address] Phone: tel: fax: [place] [address] Referral ID Status Reason Start Date Expiration Date V isits Requested Visits Authorized [id number] Closed Auto-Generate d Referral 07/23/2024 08/22/2025 1 1 [facility] for visit Narrative* MRI/CT (Routine) - Closed Specialty Diagnoses / Procedures Referred By Contac t Referred To Contact CT IMAGING Diagnoses Closed odontoid fracture, sequela Procedures CT CERVICAL SPINE WO IVCON CT CERVICAL SPINE W/O CONTRAST MATERIAL Guillaume Delgado MD, PhD [address] [facility] [place] [address] Phone: tel: fax: [place] [address] Referral ID Status Reason Start Date Expiration Date V isits Requested Visits Authorized [id number] Closed Auto-Generate d Referral 07/23/2024 08/22/2025 1 1 [facility] Chief Complaint and Reason for Visit Chief Complaint Contusion of right k nee, initial encounter Chief Complaint FALL Chief Complaint FALL ED FU/[facility] Reason for Visit Closed head injury Chief Complaint fall, LT rib pain Chief Complaint fall, LT rib pain COUGHING, CONGESTED FALL Reason for Visit COVID Chief Complaint 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, BLADDER TUMOR LG Chief Complaint 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, BLADDER TUMOR LG FALL Chief Complaint Interstim Therapy 2 Chief Complaint fall Chief Complaint fall CERVICAL FRACTURE CERVICAL FRACTURE CERVICAL FRACTURE CERVICAL FRACTURE CERVICAL FRACTURE CERVICAL FRACTURE CERVICAL FRACTURE CERVICAL FRACTURE CERVICAL FRACTURE CERVICAL FRACTURE NAYA G47.33 Reason for Visit Closed head injury Debility Dementia Elevated TSH Glucose intolerance (impaired glucose tolerance) Heme positive stool Noncompliance with CPAP treatment Anxiety Depression Frequent falls HTN (hypertension) Hypothyroid NAYA (obstructive sleep apnea) Lightheadedness Nausea and vomiting Chief Complaint fall CERVICAL FRACTURE CERVICAL FRACTURE CERVICAL FRACTURE CERVICAL FRACTURE CERVICAL FRACTURE CERVICAL FRACTURE CERVICAL FRACTURE CERVICAL FRACTURE CERVICAL FRACTURE CERVICAL FRACTURE NAYA G47.33 Reason for Visit Closed head injury Debility Elevated TSH Heme positive stool Anxiety HTN (hypertension) Closed type II fracture of odontoid process Lightheadedness Nausea and vomiting Chief Complaint Admit Date 3 M FU May 07, 2024 1:09pm FALL August 12, 2024 11:2 9am Reason for Visit Admit Date Sleep apnea May 07, 2024 1:09pm Chief Complaint Admit Date 3 M FU May 07, 2024 1:09pm FALL August 12, 2024 11:2 9am HYPOXIA UTI August 14, 2024 2:02 am Reason for Visit Admit Date Sleep apnea May 07, 2024 1:09pm Acute cystitis without hematuria August 142024 2:02am Acute myofascial strain of lumbosacral r egion August 14, 2024 2:02am Hypoxia August 14, 2024 2:02 am Obesity (BMI 30-39.9) August 14, 2024 2: 02am Sleep apnea August 14, 2024 2:02 am Chief Complaint Admit Date 3 M FU May 07, 2024 1:09pm FALL August 12, 2024 11:2 9am UTI August 14, 2024 1:06 am Urinary tract infection August 15, 2024 12:52pm Reason for Visit Admit Date Sleep apnea May 07, 2024 1:09pm Acute cystitis without hematuria August 142024 1:06am Acute myofascial strain of lumbosacral r egion August 14, 2024 1:06am Hypoxia August 14, 2024 1:06 am Obesity (BMI 30-39.9) August 14, 2024 1: 06am Sleep apnea August 14, 2024 1:06 am Chief Complaint Admit Date 3 M FU May 07, 2024 1:09pm FALL August 12, 2024 11:2 9am UTI August 14, 2024 1:06 am Urinary tract infection August 15, 2024 12:52pm CONSTIPATION August 21, 2024 4:1 8pm Reason for Visit Admit Date Sleep apnea May 07, 2024 1:09pm Acute cystitis without hematuria August 142024 1:06am Hypoxia August 14, 2024 1:06 am Acute myofascial strain of lumbosacral r egion August 14, 2024 1:06am Obesity (BMI 30-39.9) August 14, 2024 1: 06am Sleep apnea August 14, 2024 1:06 am Chief Complaint Admit Date 3 M FU May 07, 2024 1:09pm FALL August 12, 2024 11:2 9am UTI August 14, 2024 1:06 am Urinary tract infection August 15, 2024 12:52pm CONSTIPATION August 21, 2024 4:1 8pm fall August 24, 2024 6:5 9pm Advance Directives Documents on File Type Date 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 Advance Directive(s) 08/26/2023 12:00 PM Date Activated Date Inactivated Comments 08/20/2023 10:40 PM 08/23/2023 5:50 PM Question Answer Comments DNR Order Discussed With: Patient Advance Directive Response Recorded Date/ Time Living Will Yes May 02 12:39pm Power of Healthcare Associate Yes May 02, 2021 12:39pm Advance Directive Response Recorded Date/ Time Living Will No October 23, 2021 10:28am Power of Healthcare Associate No October 23 10:28am Advance Directive Response Recorded Date/ Time Living Will No March 26, 2 022 6:29pm Power of Healthcare Associate No March 26, 2022 6:29pm Advance Directive Response Recorded Date/ Time Name of Medical Power of Healthcare Associate NETTA --DAUGHTER June 11, 2022 6:12am Living Will Yes June 11 6:12am Power of Healthcare Associate Yes June 11, 2022 6:12am Advance Directive Response Recorded Date/ Time Name of Medical Power of Healthcare Associate NETTA --DAUGHTER June 11, 2022 7:12am Living Will Yes June 11 7:12am Power of Healthcare Associate Yes June 11, 2022 7:12am Name of Medical Power of Healthcare Associate VILMA BAUM, RYAN POSADAS September 06, 2022 1:56pm Advance Directive Response Recorded Date/ Time Name of Medical Power of Healthcare Associate NETTA --DAUGHTER June 11, 2022 7:12am Name of Medical Power of Healthcare Associate BARBARAA NETTA BAUM, RYAN POSADAS September 06, 2022 1:56pm Name of Medical Power of Healthcare Associate RYAN IVORY AND NETTA SARIKA October 08, 2022 8:45pm Living Will Yes October 08, 2022 8 :45pm Power of Healthcare Associate Yes October 08, 2022 8:45pm Advance Directive Response Recorded Date/ Time Living Will Yes March 28 2 023 2:59pm Power of Healthcare Associate Yes March 28, 2023 2:59pm Name of Medical Power of Healthcare Associate NETTA SARIKA March 28, 2023 2:59pm Advance Directive Response Recorded Date/ Time Living Will Yes August 20, 2023 12:24pm Power of Healthcare Associate Yes August 19 12:24pm Name of Medical Power of Healthcare Associate Netta Yarmabel August 20, 2023 12:24pm Advance Directive Response Recorded Date/ Time Name of Medical Power of Healthcare Associate Ryan Ivory - s on August 25, 2023 4:15pm Living Will Yes August 25, 2023 4:15pm Power of Healthcare Associate Yes August 24 4:15pm Name of Medical Power of Healthcare Associate Netta Yarmabel August 20, 2023 12:24pm Documents on File Type Date Recorded 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 Yes August 25, 2023 4:15pm Living Will Yes August 12, 2024 11:41am Do you have a Healthcare Power of Healthcare Associate? Yes August 12, 2024 11:41am Name of Medical Power of Healthcare Associate Netta August 12, 2024 11:41am Advance Directive Response Recorded Date/ Time Living Will Yes August 25, 2023 4:15pm Do you have a Healthcare Power of Healthcare Associate? Yes August 25, 2023 4:15pm Living Will Yes August 12, 2024 11:41am Do you have a Healthcare Power of Healthcare Associate? Yes August 12, 2024 11:41am Name of Medical Power of Healthcare Associate Netta August 12, 2024 11:41am Living Will Yes August 13, 2024 8:07pm Do you have a Healthcare Power of Healthcare Associate? Yes August 13, 2024 8:07pm Name of Medical Power of Healthcare Associate Netta, daughter August 13, 2024 8:07pm Advance Directive Response Recorded Date/ Time Living Will Yes August 25, 2023 4:15pm Do you have a Healthcare Power of Healthcare Associate? Yes August 25, 2023 4:15pm Living Will Yes August 12, 2024 11:41am Do you have a Healthcare Power of Healthcare Associate? Yes August 12, 2024 11:41am Name of Medical Power of Healthcare Associate Netta August 12, 2024 11:41am Living Will Yes August 14, 2024 2:51am Do you have a Healthcare Power of Healthcare Associate? Yes August 14, 2024 2:51am Name of Medical Power of Healthcare Associate Netta, daughter August 14, 2024 2:51am Advance Directive Response Recorded Date/ Time Living Will Yes August 25, 2023 4:15pm Do you have a Healthcare Power of Healthcare Associate? Yes August 25, 2023 4:15pm Living Will Yes August 12, 2024 11:41am Do you have a Healthcare Power of Healthcare Associate? Yes August 12, 2024 11:41am Name of Medical Power of Healthcare Associate Netta August 12, 2024 11:41am Living Will Yes August 14, 2024 2:51am Do you have a Healthcare Power of Healthcare Associate? Yes August 14, 2024 2:51am Name of Medical Power of Healthcare Associate Netta, daughter August 14, 2024 2:51am Living Will Yes August 21, 2024 9:10pm Do you have a Healthcare Power of Healthcare Associate? Yes August 21, 2024 9:10pm Name of Medical Power of Healthcare Associate daughter August 21, 2024 9:10pm Advance Directive Response Recorded Date/ Time Living Will Yes August 25, 2023 4:15pm Do you have a Healthcare Power of Healthcare Associate? Yes August 25, 2023 4:15pm Living Will Yes August 12, 2024 11:41am Do you have a Healthcare Power of Healthcare Associate? Yes August 12, 2024 11:41am Name of Medical Power of Healthcare Associate Netta August 12, 2024 11:41am Living Will Yes August 14, 2024 2:51am Do you have a Healthcare Power of Healthcare Associate? Yes August 14, 2024 2:51am Name of Medical Power of Healthcare Associate Netta, daughter August 14, 2024 2:51am Living Will Yes August 21, 2024 9:10pm Do you have a Healthcare Power of Healthcare Associate? Yes August 21, 2024 9:10pm Name of Medical Power of Healthcare Associate daughter August 21, 2024 9:10pm Living Will Yes August 24, 2024 7:06pm Do you have a Healthcare Power of Healthcare Associate? Yes August 24, 2024 7:06pm Name of Medical Power of Healthcare Associate DAUGHTER August 24, 2024 7:06pm Reason for Referral Specialty Diagnoses / Procedures Referred By Ezra pearl Referred To Contact Neurology Diagnoses Familial tremor Balance disorder Ataxia Falls frequently Mild cognitive impairment Procedures CONSULT TO NEUROLOGY OFFICE/OUTPATIENT [facility] 60-74 MINUTES Dinah Melgar MD [address] [place] [address] Referral ID Status Reason Start Date Expiration Date Visits Requested Visits Authorized [id number] Authorized PCP Requested Referral 08/04/2022 08/04/2023 1 1 Specialty Diagnoses / Procedures Referred By Contac t Referred To Contact [facility] Diagnoses Balance disorder Falls frequently Numbness and tingling of both feet Procedures CONSULT TO PHYSICAL THERAPY PHYSICAL THERAPY EVALUATION [facility] COMPLEX 45 MINS Tanja Collins MD [address] [address] [facility] [address] [address] Referral ID Status Reason Start Date Expiration Date Visits Requested Visits Authorized [id number] Authorized PCP Requested Referral Auto-Generate d Referral 10/06/2022 10/06/2023 99 99 Specialty Diagnoses / Procedures Referred By Contac t Referred To Contact Diagnoses NAYA (obstructive sleep apnea) Procedures CONSULT TO SLEEP MEDICINE - ADULT OFFICE/OUTPATIENT [facility] 60-74 MINUTES Tanja Collins MD [address] [address] Referral ID Status Reason Start Date Expiration Date Visits Requested Visits Authorized [id number] Authorized PCP Requested Referral 10/06/2022 10/06/2023 1 1 Specialty Diagnoses / Procedures Referred By Contac t Referred To Contact [facility] Diagnoses Balance disorder Falls frequently Numbness and tingling of both feet Procedures EMG(NEURO/NI) NERVE CONDUCTION STUDIES 9-10 STUDIES Tanja Collins MD [address] [address] [facility] [place] [address] [place] [id number] Referral ID Status Reason Start Date Expiration Date Visits Requested Visits Authorized [id number] Pending Review Auto-Generat ed Referral 10/06/2022 10/07/2023 1 1 Specialty Diagnoses / Procedures Referred By Contac t Referred To Contact [facility] Diagnoses Balance disorder Falls frequently Numbness and tingling of both feet Procedures PT REHAB FOLLOW UP ORDER THERAPEUTIC EXERCISES RE, EA 15 MIN. Vera Matthews, PT [facility] [place] [address] [place] [id number] Referral ID Status Reason Start Date Expiration Date Visits Requested Visits Authorized [id number] Pending Review PCP Requested Referral Auto-Generate d Referral 11/15/2022 02/13/2023 1 1 Specialty Diagnoses / Procedures Referred By Contac t Referred To Contact [facility] Diagnoses Acute pain of left shoulder Procedures CONSULT TO PHYSICAL THERAPY PHYSICAL THERAPY EVALUATION [facility] 45 MINS Dinah Melgar MD [address] [place] [address] [facility] [place] [address] [place] [address] Referral ID Status Reason Start Date Expiration Date Visits Requested Visits Authorized [id number] Authorized PCP Requested Referral Auto-Generate d Referral 11/23/2022 11/23/2023 99 99 Specialty Diagnoses / Procedures Referred By Contac t Referred To Contact XR IMAGING Diagnoses Acute pain of left shoulder Procedures XR SHOULDER GENERAL 3V OR MORE AP/TRUE AP/OTHER LEFT RADEX SHOULDER COMPLETE MINIMUM 2 VIEWS Din[address] Mel[address] MD [facility] [place] [address] Xr Imaging Referral ID Status Reason Start Date Expiration Date V isits Requested Visits Authorized [id number] Closed Auto-Generate d Referral 11/23/2022 12/23/2023 1 1 Specialty Diagnoses / Procedures Referred By Contac t Referred To Contact Neurology Diagnoses Dementia without behavioral disturbance (HCC) Multiple falls Procedures CONSULT TO NEUROLOGY OFFICE/OUTPATIENT [facility] MDM 60-74 MINUTES Dinah Melgar MD [address] [place] [address] Referral ID Status Reason Start Date Expiration Date Visits Requested Visits Authorized [id number] Authorized PCP Requested Referral 02/16/2024 1 1 Specialty Diagnoses / Procedures Referred By Contac t Referred To Contact Diagnoses Acute [place] [address] [place] [id number] Referral ID Status Reason Start Date Expiration Date V isits Requested Visits Authorized [id number] Authorized 04/28/2024 05/28/2025 1 1 Specialty Diagnoses / Procedures Referred By Contac t Referred To Contact XR IMAGING Diagnoses Acute pain of right shoulder Procedures XR SHOULDER GENERAL 3V OR MORE AP/TRUE AP/OTHER RIGHT RADEX SHOULDER COMPLETE MINIMUM 2 VIEWS Dinah Melgar MD [address] [facility] [place] [address] [place] [address] Referral ID Status Reason Start Date Expiration Date V isits Requested Visits Authorized [id number] Closed Auto-Generate d Referral 05/28/2024 06/27/2025 1 1 Summary Purpose Family History No Family History Records FoundNo Family History Records FoundNo Family History Records FoundNo Family History Records Found Additional Source Comments Goals (unrecognized section and content) Goals may be documented in a n alternate sectionGoals may be documented in an alternate sectionGoals may be documented in an alternate sectionGoals may be documented in an alternate sectionGoals may be documented in an alternate sectionGoals may be documented in an alternate sectionGoals may be documented in an alternate sectionGoals may be documented in an alternate sectionGoals may be documented in an alternate sectionGoals may be documented in an alternate section Source Comments (unrecognize d section and content) In the event this informatio n is protected by the Federal Confidentiality of Alcohol and Drug Abuse Patient Records regulations: The Federal rules restrict any use of the information to criminally investigate or prosecute any alcohol or drug abuse patient.[facility] the event this information is protected by the Federal Confidentiality of Alcohol and Drug Abuse Patient Records regulations: The Federal rules restrict any use of the information to criminally investigate or prosecute any alcohol or drug abuse patient.[facility] HospitalIn the event this information is protected by the Federal Confidentiality of Alcohol and Drug Abuse Patient Records regulations: The Federal rules restrict any use of the information to criminally investigate or prosecute any alcohol or drug abuse patient.[facility] HospitalIn the event this information is protected by the Federal Confidentiality of Alcohol and Drug Abuse Patient Records regulations: The Federal rules restrict any use of the information to criminally investigate or prosecute any alcohol or drug abuse patient.[facility] HospitalIn the event this information is protected by the Federal Confidentiality of Alcohol and Drug Abuse Patient Records regulations: The Federal rules restrict any use of the information to criminally investigate or prosecute any alcohol or drug abuse patient.[facility] HospitalIn the event this information is protected by the Federal Confidentiality of Alcohol and Drug Abuse Patient Records regulations: The Federal rules restrict any use of the information to criminally investigate or prosecute any alcohol or drug abuse patient.[facility] HospitalIn the event this information is protected by the Federal Confidentiality of Alcohol and Drug Abuse Patient Records regulations: The Federal rules restrict any use of the information to criminally investigate or prosecute any alcohol or drug abuse patient.[facility] HospitalIn the event this information is protected by the Federal Confidentiality of Alcohol and Drug Abuse Patient Records regulations: The Federal rules restrict any use of the information to criminally investigate or prosecute any alcohol or drug abuse patient.[facility] HospitalIn the event this information is protected by the Federal Confidentiality of Alcohol and Drug Abuse Patient Records regulations: The Federal rules restrict any use of the information to criminally investigate or prosecute any alcohol or drug abuse patient.[facility] HospitalIn the event this information is protected by the Federal Confidentiality of Alcohol and Drug Abuse Patient Records regulations: The Federal rules restrict any use of the information to criminally investigate or prosecute any alcohol or drug abuse patient.[facility] HospitalIn the event this information is protected by the Federal Confidentiality of Alcohol and Drug Abuse Patient Records regulations: The Federal rules restrict any use of the information to criminally investigate or prosecute any alcohol or drug abuse patient.[facility] HospitalIn the event this information is protected by the Federal Confidentiality of Alcohol and Drug Abuse Patient Records regulations: The Federal rules restrict any use of the information to criminally investigate or prosecute any alcohol or drug abuse patient.[facility] HospitalIn the event this information is protected by the Federal Confidentiality of Alcohol and Drug Abuse Patient Records regulations: The Federal rules restrict any use of the information to criminally investigate or prosecute any alcohol or drug abuse patient.[facility] HospitalIn the event this information is protected by the Federal Confidentiality of Alcohol and Drug Abuse Patient Records regulations: The Federal rules restrict any use of the information to criminally investigate or prosecute any alcohol or drug abuse patient.[facility] HospitalIn the event this information is protected by the Federal Confidentiality of Alcohol and Drug Abuse Patient Records regulations: The Federal rules restrict any use of the information to criminally investigate or prosecute any alcohol or drug abuse patient.[facility] HospitalIn the event this information is protected by the Federal Confidentiality of Alcohol and Drug Abuse Patient Records regulations: The Federal rules restrict any use of the information to criminally investigate or prosecute any alcohol or drug abuse patient.[facility] HospitalIn the event this information is protected by the Federal Confidentiality of Alcohol and Drug Abuse Patient Records regulations: The Federal rules restrict any use of the information to criminally investigate or prosecute any alcohol or drug abuse patient.[facility] HospitalIn the event this information is protected by the Federal Confidentiality of Alcohol and Drug Abuse Patient Records regulations: The Federal rules restrict any use of the information to criminally investigate or prosecute any alcohol or drug abuse patient.[facility] HospitalIn the event this information is protected by the Federal Confidentiality of Alcohol and Drug Abuse Patient Records regulations: The Federal rules restrict any use of the information to criminally investigate or prosecute any alcohol or drug abuse patient.[facility] HospitalIn the event this information is protected by the Federal Confidentiality of Alcohol and Drug Abuse Patient Records regulations: The Federal rules restrict any use of the information to criminally investigate or prosecute any alcohol or drug abuse patient.[facility] HospitalIn the event this information is protected by the Federal Confidentiality of Alcohol and Drug Abuse Patient Records regulations: The Federal rules restrict any use of the information to criminally investigate or prosecute any alcohol or drug abuse patient.[facility] HospitalIn the event this information is protected by the Federal Confidentiality of Alcohol and Drug Abuse Patient Records regulations: The Federal rules restrict any use of the information to criminally investigate or prosecute any alcohol or drug abuse patient.[facility] HospitalIn the event this information is protected by the Federal Confidentiality of Alcohol and Drug Abuse Patient Records regulations: The Federal rules restrict any use of the information to criminally investigate or prosecute any alcohol or drug abuse patient.[facility] HospitalIn the event this information is protected by the Federal Confidentiality of Alcohol and Drug Abuse Patient Records regulations: The Federal rules restrict any use of the information to criminally investigate or prosecute any alcohol or drug abuse patient.[facility] HospitalIn the event this information is protected by the Federal Confidentiality of Alcohol and Drug Abuse Patient Records regulations: The Federal rules restrict any use of the information to criminally investigate or prosecute any alcohol or drug abuse patient.[facility] HospitalIn the event this information is protected by the Federal Confidentiality of Alcohol and Drug Abuse Patient Records regulations: The Federal rules restrict any use of the information to criminally investigate or prosecute any alcohol or drug abuse patient.[facility] HospitalIn the event this information is protected by the Federal Confidentiality of Alcohol and Drug Abuse Patient Records regulations: The Federal rules restrict any use of the information to criminally investigate or prosecute any alcohol or drug abuse patient.[facility] HospitalIn the event this information is protected by the Federal Confidentiality of Alcohol and Drug Abuse Patient Records regulations: The Federal rules restrict any use of the information to criminally investigate or prosecute any alcohol or drug abuse patient.[facility] HospitalIn the event this information is protected by the Federal Confidentiality of Alcohol and Drug Abuse Patient Records regulations: The Federal rules restrict any use of the information to criminally investigate or prosecute any alcohol or drug abuse patient.[facility] HospitalIn the event this information is protected by the Federal Confidentiality of Alcohol and Drug Abuse Patient Records regulations: The Federal rules restrict any use of the information to criminally investigate or prosecute any alcohol or drug abuse patient.[facility] HospitalIn the event this information is protected by the Federal Confidentiality of Alcohol and Drug Abuse Patient Records regulations: The Federal rules restrict any use of the information to criminally investigate or prosecute any alcohol or drug abuse patient.[facility] HospitalIn the event this information is protected by the Federal Confidentiality of Alcohol and Drug Abuse Patient Records regulations: The Federal rules restrict any use of the information to criminally investigate or prosecute any alcohol or drug abuse patient.[facility] HospitalIn the event this information is protected by the Federal Confidentiality of Alcohol and Drug Abuse Patient Records regulations: The Federal rules restrict any use of the information to criminally investigate or prosecute any alcohol or drug abuse patient.[facility] HospitalIn the event this information is protected by the Federal Confidentiality of Alcohol and Drug Abuse Patient Records regulations: The Federal rules restrict any use of the information to criminally investigate or prosecute any alcohol or drug abuse patient.[facility] HospitalIn the event this information is protected by the Federal Confidentiality of Alcohol and Drug Abuse Patient Records regulations: The Federal rules restrict any use of the information to criminally investigate or prosecute any alcohol or drug abuse patient.[facility] HospitalIn the event this information is protected by the Federal Confidentiality of Alcohol and Drug Abuse Patient Records regulations: The Federal rules restrict any use of the information to criminally investigate or prosecute any alcohol or drug abuse patient.[facility] HospitalIn the event this information is protected by the Federal Confidentiality of Alcohol and Drug Abuse Patient Records regulations: The Federal rules restrict any use of the information to criminally investigate or prosecute any alcohol or drug abuse patient.[facility] HospitalIn the event this information is protected by the Federal Confidentiality of Alcohol and Drug Abuse Patient Records regulations: The Federal rules restrict any use of the information to criminally investigate or prosecute any alcohol or drug abuse patient.[facility] HospitalIn the event this information is protected by the Federal Confidentiality of Alcohol and Drug Abuse Patient Records regulations: The Federal rules restrict any use of the information to criminally investigate or prosecute any alcohol or drug abuse patient.[facility] HospitalIn the event this information is protected by the Federal Confidentiality of Alcohol and Drug Abuse Patient Records regulations: The Federal rules restrict any use of the information to criminally investigate or prosecute any alcohol or drug abuse patient.[facility] HospitalIn the event this information is protected by the Federal Confidentiality of Alcohol and Drug Abuse Patient Records regulations: The Federal rules restrict any use of the information to criminally investigate or prosecute any alcohol or drug abuse patient.[facility] HospitalIn the event this information is protected by the Federal Confidentiality of Alcohol and Drug Abuse Patient Records regulations: The Federal rules restrict any use of the information to criminally investigate or prosecute any alcohol or drug abuse patient.[facility] HospitalIn the event this information is protected by the Federal Confidentiality of Alcohol and Drug Abuse Patient Records regulations: The Federal rules restrict any use of the information to criminally investigate or prosecute any alcohol or drug abuse patient.[facility] HospitalIn the event this information is protected by the Federal Confidentiality of Alcohol and Drug Abuse Patient Records regulations: The Federal rules restrict any use of the information to criminally investigate or prosecute any alcohol or drug abuse patient.[facility] HospitalIn the event this information is protected by the Federal Confidentiality of Alcohol and Drug Abuse Patient Records regulations: The Federal rules restrict any use of the information to criminally investigate or prosecute any alcohol or drug abuse patient.[facility] HospitalIn the event this information is protected by the Federal Confidentiality of Alcohol and Drug Abuse Patient Records regulations: The Federal rules restrict any use of the information to criminally investigate or prosecute any alcohol or drug abuse patient.[facility] HospitalIn the event this information is protected by the Federal Confidentiality of Alcohol and Drug Abuse Patient Records regulations: The Federal rules restrict any use of the information to criminally investigate or prosecute any alcohol or drug abuse patient.[facility] HospitalIn the event this information is protected by the Federal Confidentiality of Alcohol and Drug Abuse Patient Records regulations: The Federal rules restrict any use of the information to criminally investigate or prosecute any alcohol or drug abuse patient.[facility] HospitalIn the event this information is protected by the Federal Confidentiality of Alcohol and Drug Abuse Patient Records regulations: The Federal rules restrict any use of the information to criminally investigate or prosecute any alcohol or drug abuse patient.[facility] HospitalIn the event this information is protected by the Federal Confidentiality of Alcohol and Drug Abuse Patient Records regulations: The Federal rules restrict any use of the information to criminally investigate or prosecute any alcohol or drug abuse patient.[facility] HospitalIn the event this information is protected by the Federal Confidentiality of Alcohol and Drug Abuse Patient Records regulations: The Federal rules restrict any use of the information to criminally investigate or prosecute any alcohol or drug abuse patient.[facility] HospitalIn the event this information is protected by the Federal Confidentiality of Alcohol and Drug Abuse Patient Records regulations: The Federal rules restrict any use of the information to criminally investigate or prosecute any alcohol or drug abuse patient.[facility] HospitalIn the event this information is protected by the Federal Confidentiality of Alcohol and Drug Abuse Patient Records regulations: The Federal rules restrict any use of the information to criminally investigate or prosecute any alcohol or drug abuse patient.[facility] HospitalIn the event this information is protected by the Federal Confidentiality of Alcohol and Drug Abuse Patient Records regulations: The Federal rules restrict any use of the information to criminally investigate or prosecute any alcohol or drug abuse patient.[facility] HospitalIn the event this information is protected by the Federal Confidentiality of Alcohol and Drug Abuse Patient Records regulations: The Federal rules restrict any use of the information to criminally investigate or prosecute any alcohol or drug abuse patient.[facility] HospitalIn the event this information is protected by the Federal Confidentiality of Alcohol and Drug Abuse Patient Records regulations: The Federal rules restrict any use of the information to criminally investigate or prosecute any alcohol or drug abuse patient.[facility] HospitalIn the event this information is protected by the Federal Confidentiality of Alcohol and Drug Abuse Patient Records regulations: The Federal rules restrict any use of the information to criminally investigate or prosecute any alcohol or drug abuse patient.[facility] HospitalIn the event this information is protected by the Federal Confidentiality of Alcohol and Drug Abuse Patient Records regulations: The Federal rules restrict any use of the information to criminally investigate or prosecute any alcohol or drug abuse patient.[facility] HospitalIn the event this information is protected by the Federal Confidentiality of Alcohol and Drug Abuse Patient Records regulations: The Federal rules restrict any use of the information to criminally investigate or prosecute any alcohol or drug abuse patient.[facility] HospitalIn the event this information is protected by the Federal Confidentiality of Alcohol and Drug Abuse Patient Records regulations: The Federal rules restrict any use of the information to criminally investigate or prosecute any alcohol or drug abuse patient.[facility] HospitalIn the event this information is protected by the Federal Confidentiality of Alcohol and Drug Abuse Patient Records regulations: The Federal rules restrict any use of the information to criminally investigate or prosecute any alcohol or drug abuse patient.[facility] HospitalIn the event this information is protected by the Federal Confidentiality of Alcohol and Drug Abuse Patient Records regulations: The Federal rules restrict any use of the information to criminally investigate or prosecute any alcohol or drug abuse patient.[facility] HospitalIn the event this information is protected by the Federal Confidentiality of Alcohol and Drug Abuse Patient Records regulations: The Federal rules restrict any use of the information to criminally investigate or prosecute any alcohol or drug abuse patient.[facility] HospitalIn the event this information is protected by the Federal Confidentiality of Alcohol and Drug Abuse Patient Records regulations: The Federal rules restrict any use of the information to criminally investigate or prosecute any alcohol or drug abuse patient.[facility] HospitalIn the event this information is protected by the Federal Confidentiality of Alcohol and Drug Abuse Patient Records regulations: The Federal rules restrict any use of the information to criminally investigate or prosecute any alcohol or drug abuse patient.[facility] HospitalIn the event this information is protected by the Federal Confidentiality of Alcohol and Drug Abuse Patient Records regulations: The Federal rules restrict any use of the information to criminally investigate or prosecute any alcohol or drug abuse patient.[facility] HospitalIn the event this information is protected by the Federal Confidentiality of Alcohol and Drug Abuse Patient Records regulations: The Federal rules restrict any use of the information to criminally investigate or prosecute any alcohol or drug abuse patient.[facility] HospitalIn the event this information is protected by the Federal Confidentiality of Alcohol and Drug Abuse Patient Records regulations: The Federal rules restrict any use of the information to criminally investigate or prosecute any alcohol or drug abuse patient.[facility] HospitalIn the event this information is protected by the Federal Confidentiality of Alcohol and Drug Abuse Patient Records regulations: The Federal rules restrict any use of the information to criminally investigate or prosecute any alcohol or drug abuse patient.[facility] HospitalIn the event this information is protected by the Federal Confidentiality of Alcohol and Drug Abuse Patient Records regulations: The Federal rules restrict any use of the information to criminally investigate or prosecute any alcohol or drug abuse patient.[facility] HospitalIn the event this information is protected by the Federal Confidentiality of Alcohol and Drug Abuse Patient Records regulations: The Federal rules restrict any use of the information to criminally investigate or prosecute any alcohol or drug abuse patient.[facility] HospitalIn the event this information is protected by the Federal Confidentiality of Alcohol and Drug Abuse Patient Records regulations: The Federal rules restrict any use of the information to criminally investigate or prosecute any alcohol or drug abuse patient.[facility] HospitalIn the event this information is protected by the Federal Confidentiality of Alcohol and Drug Abuse Patient Records regulations: The Federal rules restrict any use of the information to criminally investigate or prosecute any alcohol or drug abuse patient.[facility] HospitalIn the event this information is protected by the Federal Confidentiality of Alcohol and Drug Abuse Patient Records regulations: The Federal rules restrict any use of the information to criminally investigate or prosecute any alcohol or drug abuse patient.[facility] HospitalIn the event this information is protected by the Federal Confidentiality of Alcohol and Drug Abuse Patient Records regulations: The Federal rules restrict any use of the information to criminally investigate or prosecute any alcohol or drug abuse patient.[facility] HospitalIn the event this information is protected by the Federal Confidentiality of Alcohol and Drug Abuse Patient Records regulations: The Federal rules restrict any use of the information to criminally investigate or prosecute any alcohol or drug abuse patient.[facility] HospitalIn the event this information is protected by the Federal Confidentiality of Alcohol and Drug Abuse Patient Records regulations: The Federal rules restrict any use of the information to criminally investigate or prosecute any alcohol or drug abuse patient.[facility] HospitalIn the event this information is protected by the Federal Confidentiality of Alcohol and Drug Abuse Patient Records regulations: The Federal rules restrict any use of the information to criminally investigate or prosecute any alcohol or drug abuse patient.[facility] HospitalIn the event this information is protected by the Federal Confidentiality of Alcohol and Drug Abuse Patient Records regulations: The Federal rules restrict any use of the information to criminally investigate or prosecute any alcohol or drug abuse patient.[facility] HospitalIn the event this information is protected by the Federal Confidentiality of Alcohol and Drug Abuse Patient Records regulations: The Federal rules restrict any use of the information to criminally investigate or prosecute any alcohol or drug abuse patient.[facility] HospitalIn the event this information is protected by the Federal Confidentiality of Alcohol and Drug Abuse Patient Records regulations: The Federal rules restrict any use of the information to criminally investigate or prosecute any alcohol or drug abuse patient.[facility] HospitalIn the event this information is protected by the Federal Confidentiality of Alcohol and Drug Abuse Patient Records regulations: The Federal rules restrict any use of the information to criminally investigate or prosecute any alcohol or drug abuse patient.[facility] HospitalIn the event this information is protected by the Federal Confidentiality of Alcohol and Drug Abuse Patient Records regulations: The Federal rules restrict any use of the information to criminally investigate or prosecute any alcohol or drug abuse patient.[facility] HospitalIn the event this information is protected by the Federal Confidentiality of Alcohol and Drug Abuse Patient Records regulations: The Federal rules restrict any use of the information to criminally investigate or prosecute any alcohol or drug abuse patient.[facility] HospitalIn the event this information is protected by the Federal Confidentiality of Alcohol and Drug Abuse Patient Records regulations: The Federal rules restrict any use of the information to criminally investigate or prosecute any alcohol or drug abuse patient.[facility] HospitalIn the event this information is protected by the Federal Confidentiality of Alcohol and Drug Abuse Patient Records regulations: The Federal rules restrict any use of the information to criminally investigate or prosecute any alcohol or drug abuse patient.[facility] Reason for Visit (unrecogniz ed section and content) Reason Comments PT Discharge Specialty Diagnoses / Procedures Referred By Contac t Referred To Contact [facility] Diagnoses Acute pain of left shoulder Procedures CONSULT TO PHYSICAL THERAPY PHYSICAL THERAPY EVALUATION HIGH COMPLEX 45 MINS Dinah Melgar MD [address] [place] [address] [facility] [address] [place] [address] Referral ID Status Reason Start Date Expiration Date Visits Requested Visits Authorized [id number] Authorized PCP Requested Referral Auto-Generate d Referral 11/23/2022 11/23/2023 99 99 Reason Comments Laceration L lower leg cut on m etal stripping on floor x today Reason Onset Date Comments Yearly Exam Dr. Nolasco Pt. 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 Mild cognitive impairment Procedures CONSULT TO NEUROLOGY OFFICE/OUTPATIENT NEW HIGH MDM 60-74 MINUTES Dinah Melgar MD [address] [place] [address] Referral ID Status Reason Start Date Expiration Date V isits Requested Visits Authorized [id number] Closed PCP Requested Referral 08/04/2022 08/04/2023 1 1 Reason Comments ED Follow-up Reason Comments PT Eval Specialty Diagnoses / Procedures Referred By Contac t Referred To Contact [facility] Diagnoses Balance disorder Falls frequently Numbness and tingling of both feet Procedures CONSULT TO PHYSICAL THERAPY PHYSICAL THERAPY EVALUATION HIGH COMPLEX 45 MINS Tanja Collins MD [address] [address] [facility] [address] [place] [address] Referral ID Status Reason Start Date Expiration Date Visits Requested Visits Authorized [id number] Authorized PCP Requested Referral Auto-Generate d Referral 10/06/2022 10/06/2023 99 99 Reason Comments Follow Up Reason Comments Physical Therapy Specialty Diagnoses / Procedures Referred By Contac t Referred To Contact [facility] Diagnoses Balance disorder Falls frequently Numbness and tingling of both feet Procedures CONSULT TO PHYSICAL THERAPY PHYSICAL THERAPY EVALUATION HIGH COMPLEX 45 MINS Tanja Collins MD [address] [facility] [address] [address] [facility] [place] [address] Reason Onset Date Comments Refill Request 12/02/2022 Reason Comments cut finger Ring finger left garner d-cut on a tin can lid just now Reason Comments Ear Problem left ear ? fluid Reason Comments Dizziness Express care follow up- 06/13/23 Reason Comments Medication Problem Reason Comments Established Patient nail care Reason Onset Date Comments Refill Request 06/14/2023 Reason Comments [facility]- verbal orders needed Reason Onset Date Comments Opened In Error 09/08/2023 Reason Comments Transition Of Care Reason Comments Established Patient ED follow up Reason Comments PT plan of care Reason Comments Follow Up Reason Comments Established Patient Reason Comments Follow Up Reason Comments Follow Up 78 year old female p t her for a follow up spinal stenosis. Ct and xray done on 01-04-24. Reason Onset Date Comments Refill Request 03/25/2024 Reason Comments Follow Up Nail Care Reason Comments Established Patient Reason Comments Pain (Shoulder Pain) Right shoulder pain Reason Comments Insurance Authorization Reason Comments Established Patient Reason Comments Established Patient Reason Onset Date Comments Results 08/03/2024 Reason Comments Hospital F/U UTI Constipation Reason Comments Follow Up Back pain/fracture ER F/U [facility] Fall 08/24/24 Reason Onset Date Comments Refill Request 09/17/2024 Reason Comments Fall Back Pain Care Teams (unrecognized sec tion and content) Rivet Catcher Relationship Specialty Start Date End Date Kayley Owens MD [address] [place] [address] PCP - General Internal Medicine 04/08/21 Rivet Catcher Relationship Specialty Start Date End Date Dinah Melgar MD [address] [place], [place] [id number] PCP - General Family Medicine 02/03/22 Rivet Catcher Relationship Specialty Start Date End Date Dinah Melgar MD [address] [place], [place] [id number] PCP - General Family Medicine 02/03/22 Rivet Catcher Relationship Specialty Start Date End Date Dinah Melgar MD [facility] [place] [address] PCP - General Family Medicine 02/03/22 Rivet Catcher Relationship Specialty Start Date End Date Dinah Melgar MD [address] [place] [address] PCP - General Family Medicine 02/03/22 Team Status: Active Member Role Status Dates Dr. Arnold Nolasco III, MD Family Provider Active Dr. Dinah Melgar MD Primary Care Provider Active Team Status: Inactive Member Role Status Dates Dr. Dinah Melgar MD Primary Care Provider, Referring Provider Active Pura BACON PA Attending Provider Active Team Status: Inactive Member Role Status Dates Dr. Dinah Melgar MD Primary Care Provider Active Dr. Marilee Munguia MD Attending Provider, Emergency Provider Active Team Status: Inactive Member Role Status Dates Dr. Dinah Melgar MD Primary Care Provider Active Dr. Jesus Duenas DO Emergency Provider Active Rivet Catcher Relationship Specialty Start Date End Date Dinah Melgar MD [address] [place] [address] PCP - General Family Medicine 02/03/22 Rivet Catcher Relationship Specialty Start Date End Date Dinah Melgar MD [address] [place] [address] PCP - General Family Medicine 02/03/22 Rivet Catcher Relationship Specialty Start Date End Date Dinah Melgar MD [address] [place] [address] PCP - General Family Medicine 02/03/22 Team Status: Active Member Role Status Dates Dr. Dinah Melgar MD Primary Care Provider Active Dr. Rosa Cruz MD Attending Provider Active Dr. Rory Gomez MD Referring Provider Active Team Status: Inactive Member Role Status Dates Dr. Dinah Melgar MD Primary Care Provider Active Dr. Jesus Duenas DO Attending Provider, Emergency Pr ovider Active Team Status: Inactive Member Role Status Dates Dr. Dinah Melgar MD Primary Care Provider Active Dr. Rory Gomez MD Attending Provider Active Team Status: Inactive Member Role Status Dates Dr. Dinah Melgar MD Primary Care Provider Active Dr. Rory Gomez MD Attending Provider, Referr ing Provider Active Dr. Jose Sotelo MD Other Provider Active Team Status: Inactive Member Role Status Dates Dr. Dinah Melgar MD Primary Care Provider Active Dr. Abe Pinedo DO Emergency Provider Active Rivet Catcher Relationship Specialty Start Date End Date Dinah Melgar MD [address] [facility] [place], [place] [address] PCP - General Family Medicine 02/03/22 Rivet Catcher Relationship Specialty Start Date End Date Dinah Melgar MD [address] [place], [place] [id number] PCP - General Family Medicine 02/03/22 Rivet Catcher Relationship Specialty Start Date End Date Dinah Melgar MD [address] [place] [address] PCP - General Family Medicine 02/03/22 Rivet Catcher Relationship Specialty Start Date End Date Dinah Melgar MD [address] [place], [place] [address] PCP - General Family Medicine 02/03/22 Rivet Catcher Relationship Specialty Start Date End Date Dinah Melgar MD [address] [place] [address] PCP - General Family Medicine 02/03/22 Rivet Catcher Relationship Specialty Start Date End Date Dinah Melgar MD [address] [place], [place] [address] PCP - General Family Medicine 02/03/22 Rivet Catcher Relationship Specialty Start Date End Date Dinah Melgar MD [address] [place], [place] [id number] PCP - General Family Medicine 02/03/22 Rivet Catcher Relationship Specialty Start Date End Date Dinah Melgar MD [address] [place] [address] PCP - General Family Medicine 02/03/22 Rivet Catcher Relationship Specialty Start Date End Date Dinah Melgar MD [address] [place] [address] PCP - General Family Medicine 02/03/22 Rivet Catcher Relationship Specialty Start Date End Date Dinah Melgar MD [address] [place] [address] PCP - General Family Medicine 02/03/22 Rivet Catcher Relationship Specialty Start Date End Date Dinah Melgar MD [address] [place] [address] PCP - General Family Medicine 02/03/22 Rivet Catcher Relationship Specialty Start Date End Date Dinah Melgar MD [address] [place] [address] PCP - General Family Medicine 02/03/22 Rivet Catcher Relationship Specialty Start Date End Date Dinah Melgar MD [address] [place] [address] PCP - General Family Medicine 02/03/22 Rivet Catcher Relationship Specialty Start Date End Date Dinah Melgar MD [address] [place], [place] [address] PCP - General Family Medicine 02/03/22 Team Status: Inactive Member Role Status Dates Dr. Dinah Melgar MD Primary Care Provider Active Dr. Rory Gomez MD Attending Provider, Referr ing Provider Active Rivet Catcher Relationship Specialty Start Date End Date Dinah Melgar MD [address] [place], [place] [address] PCP - General Family Medicine 02/03/22 Rivet Catcher Relationship Specialty Start Date End Date Dinah Melgar MD [address] [place], [place] [address] PCP - General Family Medicine 02/03/22 Rivet Catcher Relationship Specialty Start Date End Date Dinah Melgar MD [address] [place], [place] [address] PCP - General Family Medicine 02/03/22 Team Status: Inactive Member Role Status Dates Dr. Dinah Melgar MD Primary Care Provider Active Abelardo Reddy MD Emergency Provider Active Rivet Catcher Relationship Specialty Start Date End Date Dinah Melgar MD [address] [place], [place] [address] PCP - General Family Medicine 02/03/22 Team Status: Active Member Role Status Dates Dr. Dinah Melgar MD Primary Care Provider Active Dr. Marina Gotti DO Admit Pr ovider, Attending Provider, Other Provider Active Team Status: Inactive Member Role Status Dates Dr. Dinah Melgar MD Primary Care Provider Active Dr. Marina Gotti DO Admit Provider, Attend ing Provider Active Team Status: Inactive Member Role Status Dates Dr. Dinah Melgar MD Primary Care Provider Active Abelardo Reddy MD Attending Provider, Emergency Provid er Active Team Status: Active Member Role Status Dates Dr. Dinah Melgar MD Primary Care Provider Active Dr. Marina Gotti DO Attending Provider, Re ferring Provider Active Rivet Catcher Relationship Specialty Start Date End Date Dinah Melgar MD [address] [place], [place] [address] PCP - General Family Medicine 02/03/22 Rivet Catcher Relationship Specialty Start Date End Date Dinah Melgar MD [address] [place], [place] [address] PCP - General Family Medicine 02/03/22 Team Status: Inactive Member Role Status Dates Dr. Dinah Melgar MD Primary Care Provider Active Dr. Marina Gotti , DO Attending Provider, Re ferring Provider Active Rivet Catcher Relationship Specialty Start Date End Date Dinah Melgar MD [address] [place] [address] PCP - General Family Medicine 02/03/22 Rivet Catcher Relationship Specialty Start Date End Date Dinah Melgar MD [address] [place] [address] PCP - General Family Medicine 02/03/22 Rivet Catcher Relationship Specialty Start Date End Date Dinah Melgar MD [address] [place] [address] PCP - General Family Medicine 02/03/22 Rivet Catcher Relationship Specialty Start Date End Date Dinah Melgar MD [address] [place] [address] PCP - General Family Medicine 02/03/22 Rivet Catcher Relationship Specialty Start Date End Date Dinah Melgar MD [address] [place] [address] PCP - General Family Medicine 02/03/22 Rivet Catcher Relationship Specialty Start Date End Date Dinah Melgar MD [address] [place], [place] [address] PCP - General Family Medicine 02/03/22 Rivet Catcher Relationship Specialty Start Date End Date Arnold Nolasco III, MD PCP - General Family Medicine 02/06/21 04/07/21 Rivet Catcher Relationship Specialty Start Date End Date Arnold Nolasco III, MD NO FORWARDING ADDRESS PCP - General 03/01/02 02/05/21 Rivet Catcher Relationship Specialty Start Date End Date Dinah Melgar MD [address] [facility] [place] [address] PCP - General Family Medicine 02/03/22 Rivet Catcher Relationship Specialty Start Date End Date Dinah Melgar MD [address] [facility] [place] [address] PCP - General Family Medicine 02/03/22 Rivet Catcher Relationship Specialty Start Date End Date Dinah Melgar MD [address] [facility] [place] [address] PCP - General Family Medicine 02/03/22 Isadora Melton, KNIFE OPERATOR.FILING AND POLISHING SUPERVISOR [address] [place] [address] [facility] 04/16/24 Sylvie Ariza KNIFE OPERATOR.FILING AND POLISHING SUPERVISOR [address] [facility] [place] [address] [facility] 04/16/24 Rivet Catcher Relationship Specialty Start Date End Date Dinah Melgar MD [address] [facility] [place] [address] PCP - General Family Medicine 02/03/22 Isadora Melton KNIFE OPERATOR.FILING AND POLISHING SUPERVISOR [address] [place] [address] [facility] 04/16/24 Sylvie Ariza KNIFE OPERATOR.FILING AND POLISHING SUPERVISOR [address] [place] [address] [facility] 04/16/24 Rivet Catcher Relationship Specialty Start Date End Date Dinah Melgar MD [address] [place] [address] PCP - General Family Medicine 02/03/22 Isadora Melton 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 [address] [place] [address] [facility] 04/16/24 Sylvie Ariza 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 [address] [place] [address] [facility] 04/16/24 Rivet Catcher Relationship Specialty Start Date End Date Dinah Melgar MD [address] [place] [address] PCP - General Family Medicine 02/03/22 Isadora Melton KNIFE OPERATOR.FILING AND POLISHING SUPERVISOR [address] [place] [address] [facility] 04/16/24 Sylvie Ariza KNIFE OPERATOR.FILING AND POLISHING SUPERVISOR [address] [place] [address] [facility] 04/16/24 Rivet Catcher Relationship Specialty Start Date End Date Dinah Melgar MD [address] [place] [address] PCP - General Family Medicine 02/03/22 Isadora Melton KNIFE OPERATOR.FILING AND POLISHING SUPERVISOR [address] [place] [address] [facility] 04/16/24 Sylvie Ariza KNIFE OPERATOR.FILING AND POLISHING SUPERVISOR [address] [facility] [place] [address] [facility] 04/16/24 Rivet Catcher Relationship Specialty Start Date End Date Dinah Melgar MD [address] [facility] [address] PCP - General Family Medicine 02/03/22 Isadora Melton 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 [address] [place] [address] [facility] 04/16/24 Sylvie Ariza KNIFE OPERATOR.FILING AND POLISHING SUPERVISOR [address] [facility] [place] [address] [facility] 04/16/24 Rivet Catcher Relationship Specialty Start Date End Date Dinah Melgar MD [address] [facility] [place] [address] PCP - General Family Medicine 02/03/22 Isadora Melton KNIFE OPERATOR.FILING AND POLISHING SUPERVISOR [address] [facility] [place] [address] [facility] 04/16/24 Sylvie Ariza KNIFE OPERATOR.FILING AND POLISHING SUPERVISOR [address] [facility] [place] [address] [facility] 04/16/24 Rivet Catcher Relationship Specialty Start Date End Date Dinah Melgar MD [address] [facility] [place] [address] [phone] PCP - General Family Medicine 02/03/22 Isadora Melton KNIFE OPERATOR.FILING AND POLISHING SUPERVISOR [address] [place] [address] [facility] 04/16/24 Sylvie Ariza KNIFE OPERATOR.FILING AND POLISHING SUPERVISOR [address] [facility] [place] [address] [facility] 04/16/24 Rivet Catcher Relationship Specialty Start Date End Date Dinah Melgar MD [address] [facility] [place] [address] PCP - General Family Medicine 02/03/22 Isadora Melton 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 [address] [place] [address] [facility] 04/16/24 Sylvie Ariza KNIFE OPERATOR.FILING AND POLISHING SUPERVISOR [address] [facility] [place] [address] [facility] 04/16/24 Rivet Catcher Relationship Specialty Start Date End Date Dinah Melgar MD [address] [facility] [place] [address] PCP - General Family Medicine 02/03/22 Isadora Melton KNIFE OPERATOR.FILING AND POLISHING SUPERVISOR [address] [place] [address] [facility] 04/16/24 Sylvie Ariza KNIFE OPERATOR.FILING AND POLISHING SUPERVISOR [address] [facility] [place] [address] [facility] 04/16/24 Team Status: Active Member Role Status Dates Dr. Dinah Melgar MD Primary Care Provider Active Team Status: Inactive Member Role Status Dates Dr. Dinah Melgar MD Primary Care Provider Active Start: May 07, 2024 End: May 07, 2024 Dr. Dinah Melgar MD Referring Provider Active Start: May 07, 2024 End: May 07, 2024 Pam Milligan NP, MICROSCOPIST-C Attending Provider Active Start: May 07, 2024 End: May 07, 2024 Team Status: Inactive Member Role Status Dates Dr. Dinah Melgar MD Primary Care Provider Active Start: August 12, 2024 End: August 12, 2024 Dr. Nic Chicas DO Emergency Provider Active Start: August 12, 2024 End: August 12, 2024 Team Status: Active Member Role Status Dates Dr. Dinah Melgar MD Primary Care Provider Active Start: August 14, 2024 Dr. Haider Hinojosa DO Emergency Provider Active Start: August 14, 2024 Dr. Jose Aj DO Admit Provider Active Start: August 14, 2024 Dr. Jose Aj DO Attending Provider Active Start: August 14, 2024 Rivet Catcher Relationship Specialty Start Date End Date Dinah Melgar MD [address] [place], [place] [address] PCP - General Family Medicine 02/03/22 Isadora Melton, KNIFE OPERATOR.FILING AND POLISHING SUPERVISOR [address] [place], [place] [address] [facility] 04/16/24 Sylvie Ariza, KNIFE OPERATOR.FILING AND POLISHING SUPERVISOR [address] [place] [address] [facility] 04/16/24 Team Status: Inactive Member Role Status Dates Dr. Dinah Melgar MD Primary Care Provider Active Start: August 14, 2024 End: August 15, 2024 Dr. Haider Hinojosa DO Emergency Provider Active Start: August 14, 2024 End: August 15, 2024 Dr. Jose Aj DO Admit Provider Active Start: August 14, 2024 End: August 15, 2024 Dr. Jose Aj , Other Provider Active Start: August 14, 2024 End: August 15, 2024 Dr. Charlee Hernandez , Attending Provider Active S tart: August 14, 2024 End: August 15, 2024 Team Status: Active Member Role Status Dates Dr. Dinah Melgar MD Primary Care Provider Active Start: August 15, 2024 Dr. Haider Hinojosa , Emergency Provider Active Start: August 15, 2024 Dr. Jose Aj , Admit Provider Active Start: August 15, 2024 Dr. Jose Aj DO Other Provider Active Start: August 15, 2024 Dr. Charlee Hernandez , Attending Provider Active S tart: August 15, 2024 Dr. Charlee Hernandez , Other Provider Active Start : August 15, 2024 Rivet Catcher Relationship Specialty Start Date End Date Dinah Melgar MD [address] [facility] [place] [address] PCP - General Family Medicine 02/03/22 Isadora Melton, KNIFE OPERATOR.FILING AND POLISHING SUPERVISOR [address] [place] [address] [facility] 04/16/24 Sylvie Ariza KNIFE OPERATOR.FILING AND POLISHING SUPERVISOR [address] [facility] [place] [address] [facility] 04/16/24 Rivet Catcher Relationship Specialty Start Date End Date Dinah Melgar MD [address] [facility] [place] [address] PCP - General Family Medicine 02/03/22 Isadora Melton KNIFE OPERATOR.FILING AND POLISHING SUPERVISOR [address] [place] [address] [facility] Family Medicine 04/16/24 SuppSylvie grissom 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 [address] [facility] [place] [address] [facility] 04/16/24 Rivet Catcher Relationship Specialty Start Date End Date Dinah Melgar MD [address] [facility] [place] [address] PCP - General Family Medicine 02/03/22 Isadora Melton 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 [address] [facility], [place] [address] [facility] 04/16/24 Sylvie Ariza 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 [address] [facility] [place] [address] [facility] 04/16/24 Team Status: Inactive Member Role Status Dates Dr. Dinah Melgar MD Primary Care Provider Active Start: August 12, 2024 End: August 12, 2024 Dr. Nic Chicas DO Attending Provider Active Start: August 12, 2024 End: August 12, 2024 Dr. Nic Chicas DO Emergency Provider Active Start: August 12, 2024 End: August 12, 2024 Team Status: Inactive Member Role Status Dates Dr. Dinah Melgar MD Primary Care Provider Active Start: August 21, 2024 End: August 21, 2024 Abelardo Reddy MD Emergency Provider Active Star t: August 21, 2024 End: August 21, 2024 Rivet Catcher Relationship Specialty Start Date End Date Dinah Melgar MD [address] [facility] [place] [address] PCP - General Family Medicine 02/03/22 Isadora [place] 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 [address] [facility] [place] [id number] [facility] 04/16/24 Sylvie Ariza 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 [address] [facility] [place], [place] [address] [facility] 04/16/24 Team Status: Inactive Member Role Status Dates Dr. Dinah Melgar MD Primary Care Provider Active Start: August 24, 2024 End: August 24, 2024 Dr. Ezequiel Keller DO Emergency Provider Activ e Start: August 24, 2024 End: August 24, 2024 Rivet Catcher Relationship Specialty Start Date End Date Dinah Melgar MD [address] [facility] [place], [place] [id number] PCP - General Family Medicine 02/03/22 Isadora Melton 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 [address] [facility] [place], [place] [id number] [facility] 04/16/24 Sylvie Ariza KNIFE OPERATOR.FILING AND POLISHING SUPERVISOR [address] [facility] [place], [place] [address] [facility] 04/16/24 Rivet Catcher Relationship Specialty Start Date End Date Dinah Melgar MD [address] [facility] [place], [place] [id number] PCP - General Family Medicine 02/03/22 Isadora Melton KNIFE OPERATOR.FILING AND POLISHING SUPERVISOR [address] [facility] [place], [place] [address] [phone] [facility] 04/16/24 Sylvie Ariza 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 [address] [facility] [place], [place] [address] [facility] 04/16/24 INFORMATION SOURCE (unrecogn ized section and content) DATE CREATED AUTHOR 02/03/2024 [facility] DATE CREATED AUTHOR AUTHOR'S ORGANIZ ATION 09/01/2024 [facility] DATE CREATED AUTHOR AUTHOR'S ORGANIZ ATION 09/11/2024 [facility] DATE CREATED AUTHOR AUTHOR'S ORGANIZ ATION 09/12/2024 [facility] FOR RECORDS PERTAINING TO PATIENTS WHO ARE OR HAVE BEEN ENROLLED IN A CHEMICAL DEPENDENCY/SUBSTANCEABUSE PROGRAM, SOME INFORMATION MAY BE OMITTED. This clinical summary was aggregated from multiple sources. Caution should be exercised in using it in the provision of clinical care. This summary normalizes information from multiple sources, and as a consequence, information in this document may materially change the coding, format and clinical context of patient data. In addition, data may be omitted in some cases. CLINICAL DECISIONS SHOULD BE BASED ON THE PRIMARY CLINICAL RECORDS. [facility]. provides no warranty or guarantee of the accuracy or completeness of information in this document.
[2024-10-09 23:38] LABS: Troponin T High Sens 2 HR 17 ng/L (<=14)
[2024-10-10] VITALS (7 sets, daily range): BP systolic 130–151; BP diastolic 62–78; PULSE 85–88; RESP 17–29; TEMP 36.4–37.2; O2SAT 93–95; BMI 33.2; BMI 33.3
[2024-10-10] MEDS: 0.9% Normal Saline (1000mL) 1,000 ML 75 ML IV (00:58)
[2024-10-10] MEDS: Acetaminophen 325 MG Tablet 650 MG PO (01:04)
[2024-10-10] MEDS: traMADol 50 MG Tablet PO ×2 (01:05→14:26)
[2024-10-10 05:43] LABS: Absolute Neutrophil Count 5.9 X10^3/uL (2.0-7.7); Basophil# 0.05 X10^3/uL; Basophil% 0.6 % (0-1); Eosinophil# 0.12 X10^3/uL; Eosinophils% 1.3 % (0-5); Hematocrit 35.2 % (37-47); Hemoglobin 11.8 g/dL (12.0-15.0); Lymphocyte % 20.2 % (19-41); Mean Corp Hgb Conc 33.5 g/dL (32-36); Mean Corpuscular Hgb 30.3 pg (27.0-32.0); Mean Corpuscular Volume 90.3 fL (81-99); Mean Platelet Vol. 9.6 fl (6.2-12.0); Monocyte% 11.2 % (0-10); NRBC Flagged by Analyzer 0 % (0-5); Neutrophil # 5.88 X10^3/uL (2.7-7.7); Neutrophil % 66.3 % (47-70); Platelet Count 256 K/mm3 (150-450); RBC Distribution Width CV 12.9 % (11.6-14.6); RBC Distribution Width SD 42.3 fl (35.1-43.9); White Blood Count 8.9 K/mm3 (4.4-11.0)
[2024-10-10] MEDS: Levothyroxine 50 MCG Tablet PO (06:00)
[2024-10-10 06:19] LABS: ALB/GLOB Ratio 1.5 RATIO (0.9-2.4); AST(SGOT) 19 U/L (<=31); Alanine Aminotransfer ALT/SGPT 10 U/L (<=34); Albumin, Serum 3.7 g/dL (3.4-4.8); Alkaline Phosphatase 127 U/L (35-104); Anion Gap 12 (5-15); BUN 16 mg/dL (4-19); BUN/Creat Ratio 15.6 RATIO (10-20); Calcium,Total 8.5 mg/dL (7.6-11.0); Carbon Dioxide 21.6 mmol/L (21.0-32.0); Chloride 103 mmol/L (98-108); Creatinine, Serum 1.03 mg/dL (0.70-1.20); EST Glomerular Filtration Rate 55 (>60); Estimated Creatinine Clearance 44.66 ml/min (50-250); Globulin 2.4 g/dL (2.2-4.2); Glucose 98 mg/dL (70-99); Potassium 3.7 mmol/L (3.3-5.1); Sodium Level 137 mmol/L (133-145); Total Bilirubin 0.46 mg/dL (0.00-1.30)
[2024-10-10] MEDS: Tolterodine Tartrate 4 MG CAP.SA PO (09:08)
[2024-10-10] MEDS: Pantoprazole Sodium 40 MG Tablet PO (09:08)
[2024-10-10] MEDS: FLUoxetine 20 MG Capsule PO (09:08)
[2024-10-10] MEDS: Vibegron 75 MG TABLET PO (09:08)
[2024-10-10] MEDS: Ezetimibe 10 MG Tablet PO (09:08)
[2024-10-10] MEDS: Enoxaparin 40 MG/0.4 ML Syringe SC (09:09)
[2024-10-10] MEDS: Carvedilol 6.25 MG Tablet PO ×2 (09:09→16:46)
--- NOTE | 2024-10-10 13:14 | CASEMGMT ---
SERENITY HEMPHILL Assessment Face to Face with patient for initial transition planning/care coordination assessment. SERENITY HEMPHILL introduced self and role at [facility], pt voices understanding. Pt is A&Ox4 and is resting comfortably in the chair and is calm. Care providers, pharmacy, and demographics verified. Admitting dx: Encephalopathy, UTI, Hypoxia, Possible PNA LACE Strata: 3 PCP: Richard Cruz Specialists: [facility] (Pt unable to recall name). Patricia (Uro) Preferred Pharmacy: [facility] Insurance: [employer] A/B, C[employer] Prescription Benefit: Yes LNOK: Netta Carmona (Daughter who is an PAPER AND PRINTS RESTORER), Ryan Ivory (Son), Liliana (adopted daughter), Adriana (daughter) Living Arrangements: Pt lives alone in a single story home with a basement and 2 steps to enter ADLs/IADLs: Pt reports that she is mainly independent but her children help her clean at home. Pt states that her daughter, Liliana, does her laundry for her in the basement. Transportation: Pt children. Denies concerns DME: Home oxygen through [employer]. Verified pt's current order is for 2L @ HS only via CPAP. Pt has a concentrator but no portability or pulse ox. Pt states that her daughter (Netta) has a pulse ox she could use. Pt has a history of falls. Pt declines having a medical alert system. Resources provided and encouraged to get established. Pt also reports that she has a FWW, Cane, crutches, W/C, and grab bars. HHC/SNF: Hx @ [facility] and [facility] Palliative Care: Per the recent nurses note, pt may be active with Palliative Care. Pt states that she believes that she is through [facility]. E-Mail sent to [facility] to notify of admission. Pt?s goal: Home Plan: TBD. Anticipate SNF vs skilled HHC and the continuation of Palliative Care. Follow for increased oxygen needs. Current 6-Click score is 11. PT/OT pending. Pt reports that it is too early to tell what she will need or want at the time of Dc. Pt denies further questions or concerns at this time. Report given to HIDE SELECTOR CM. Lourdes Sheridan RN, CM
--- NOTE | 2024-10-10 15:37 | PCM.PROGNOTE ---
Subjective Subjective Patient seen and examined. She says she feels much better today. She was admitted with complaint of confusion and weakness and found to have a UTI. She was also hypoxic. Her confusion has largely resolved today and she is alert and oriented. She denies any frequency of urination denies any burning with urination. Review of systems otherwise negative. Objective Data Objective Data Vital Signs: Vital Signs Temp Pulse Resp BP Pulse Ox O2 Del Method O2 Flow Rate 97.6 F L 87 20 H 130/66 H 94 Nasal Cannula 3 10/10/24 11:53 10/10/24 11:53 10/10/24 11:53 10/10/24 11:53 10/10/24 11:53 10/10/24 14:00 10/10/24 14:40 Oxygen Flow Rate (L/min) 3 Oxygen Delivery Method Nasal Cannula Weight: 190 lb 11.198 oz Body Mass Index (BMI) 33.3 Intake & Output: Intake and Output for Last 24 Hours 10/08/24 10/09/24 10/10/24 23:59 23:59 23:59 Intake Total 1050 / 1050 1455 / 1455 Balance 1050 / 1050 1455 / 1455 Medical Nutrition Assessment Dietitian: Malnutrition Criteria Met Start: 10/10/24 12:00 Freq: Status: Active Protocol: Document 10/10/24 15:19 SB (Rec: 10/10/24 15:19 SB [id number]) Nutrition Malnutrition Evidence of Yes Malnutrition Exists Malnutrition (severe Acute Illness/Injury ): Evidenced By Suboptimal Energy Intake (Moderate),Weight Loss (Severe ) Clinical Problem Acute Disease or Injury Related Malnutrition Etiology severe related to inadequate oral intake Signs/Symptoms as evidenced by PO meeting <50% of estimated nutrition needs x 1-2 months and 5% unintentional weight loss x 2 .5 weeks. Status Active Problem Recommendation Dietitian Adjust to regular diet due to signs and symptoms of Recommendations/ malnutrition. Changes Will order 120ml EPHP 4x daily with medpass. Will monitor weight trends. Lab / Micro Data 10/10/24 05:21 10/10/24 05:21 Labs: Laboratory Results - last 24 hr 10/09/24 20:30: WBC 11.0, RBC 4.58, Hgb 13.8, Hct 41.3, MCV 90.2, MCH 30.1, MCHC 33.4, RDW Std Deviation 42.2, RDW Coeff of Dionne 13.0, Plt Count 317, MPV 9.9, Immature Gran % (Auto) 0.600, Neut % (Auto) 71.4 H, Lymph % (Auto) 16.3 L, [place] % (Auto) 10.1 H, Eos % (Auto) 1.1, Baso % (Auto) 0.5, Absolute Neuts (auto) 7.9 H, Absolute Lymphs (auto) 1.79, Nucleated RBC % 0, Sodium 133, Potassium 4.0, Chloride 97 L, Carbon Dioxide 20.2 L, Anion Gap 16 H, BUN 20 H, Creatinine 1.22 H, Estim Creat Clear Calc 37.53 L, Est GFR (MDRD) Non-Af 45 L, BUN/Creatinine Ratio 16.6, Glucose 110 H, Lactic Acid 1.0, Calcium 9.4, Total Bilirubin 0.55, AST 22, ALT 13, Alkaline Phosphatase 152 H, Troponin T High Sens 17 H D, NT pro BNP II 331, Total Protein 7.1, Albumin 4.2, Globulin 2.9, Albumin/Globulin Ratio 1.5 10/09/24 21:30: PT 13.7, INR 1.0, APTT 25.5 10/09/24 21:38: Urine Color Yellow, Urine Clarity Cloudy, Urine pH 6.0, Ur Specific [place] 1.020, Urine Protein 30 H, Urine Glucose (UA) Normal, Urine Ketones 15 H, Urine Occult Blood 10 H, Urine Nitrite Positive H, Urine Bilirubin Negative, Urine Urobilinogen 1 H, Ur Leukocyte Esterase 500 H, Urine RBC 0-5 SEEN, Urine WBC 50-100 SEEN, Ur Squamous Epith Cells 5-10 SEEN, Ur Transition Epith Cell 0-5 SEEN, Urine Bacteria 4+, Urine Mucus 0 SEEN 10/09/24 22:50: Troponin T Hi Sens 2 Hr 17 H 10/10/24 05:21: WBC 8.9, RBC 3.90 L, Hgb 11.8 L, Hct 35.2 L, MCV 90.3, MCH 30.3, MCHC 33.5, RDW Std Deviation 42.3, RDW Coeff of Dionne 12.9, Plt Count 256, MPV 9.6, Immature Gran % (Auto) 0.400, Neut % (Auto) 66.3, Lymph % (Auto) 20.2, [place] % (Auto) 11.2 H, Eos % (Auto) 1.3, Baso % (Auto) 0.6, Absolute Neuts (auto) 5.9, Absolute Lymphs (auto) 1.80, Nucleated RBC % 0, Sodium 137, Potassium 3.7, Chloride 103, Carbon Dioxide 21.6, Anion Gap 12, BUN 16, Creatinine 1.03, Estim Creat Clear Calc 44.66 L, Est GFR (MDRD) Non-Af 55 L, BUN/Creatinine Ratio 15.6, Glucose 98, Calcium 8.5, Total Bilirubin 0.46, AST 19, ALT 10, Alkaline Phosphatase 127 H, Total Protein 6.0, Albumin 3.7, Globulin 2.4, Albumin/Globulin Ratio 1.5 Micro: Microbiology 10/09/24 21:38 Urine, Catheterized Urine Culture - 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 10/10/24 06:15 Urine, Clean Catch Legionella Antigen - Final 10/10/24 06:15 Urine, Clean Catch Streptococcus pneumoniae Antigen (M - Final 10/09/24 23:40 Mucosa - Nasopharyngeal Respiratory Panel (PCR) - Final 10/09/24 20:37 Mucosa - Nose SARS-CoV-2, Influenza & RSV (PCR) - Final ABG Data ABG results: ABG 10/09/24 20:37 Specimen Type ASHLEY Sample Site Not entered O2 % 3.0 VBG pH 7.48 H VBG pO2 60 H VBG HCO3 23 VBG Total CO2 24 VBG O2 Sat (Calc) 93 H VBG Base Excess -1 POC Mix VBG pCO2 Pt Tmp 30.4 L O2 Delivery Device Cannula Radiography Diagnostic Testing: Radiology Impression Chest X-Ray 10/09/24 21:15 IMPRESSION: Left base opacity likely reflecting atelectasis however consolidation or aspiration not excluded. Mild pulmonary vascular congestion and interstitial edema. Stable mild cardiomegaly. Reading Location: [facility] Physical Exam Const alert, oriented x3 and no apparent distress General Appearance: cooperative HEENT normocephalic, head/scalp atraumatic, moist oral mucous membranes and oropharynx normal Eyes PERRL and EOMs intact bilaterally Neck no lymphadenopathy and supple Lymph Lymphatic: no lymphedema noted Resp Resp Narrative: Mildly diminished breath sounds bibasilarly. No wheezes or crackles. On 3 L of oxygen. Cardio regular rate, regular rhythm, S1 normal heart sound, S2 normal heart sound and no murmurs GI normal to inspection, nondistended, normoactive bowel sounds, soft to palpation, non-tender and non-distended Extremity normal capillary refill, no clubbing, cyanosis or edema and no calf tenderness General Extremity: no tenderness to palpation of joints or extremities Skin General Skin Exam: no breakdown Neuro CN's II-XII intact bilaterally and no focal motor deficits Motor Exam: strength 5/5 throughout and general weakness Psych thought process normal and cooperative Appearance: appropriate Assessment & Plan Assessment/Plan (1) Acute cystitis without hematuria: PLAN: Plan #Acute encephalopathy due to hypoxia in the setting of pneumonia Pneumonia thought to be likely committee acquired pneumonia On 3 L of oxygen. On IV ceftriaxone and azithromycin. Breathing treatments bronchodilators. Sputum cultures pending. Urine for Strep and Legionella negative. Breathing treatments with bronchodilators. Titrate oxygen to maintain saturation above 90% #UTI: has a history of neurogenic bladder. 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 Speciation is pending.. On IV rocephin. #Anxiety and derpession: on prozac #History of dementia: PT/OT On board. Fall precautions #Hypothyroidism: on synthroid #Class I obesity: BMi is 33.3. Complicates acute care, expected recovery and prognosis. # History of asthma: Not in exacerbation. Breathing treatments bronchodilators. #Hypertension: On Coreg. IV hydralazine. #Hyperlipidemia: On ezetimibe DVT prophylaxis: Lovenox Charges/Coding Visit Charges Inpatient E&M: 94220 Subs Hosp L2
[2024-10-10] MEDS: Ensure Plus High Protein 120 ML LIQUID PO ×2 (16:48→21:21)
[2024-10-10] MEDS: 0.9% Saline Lock 10 ML Syringe IV (21:22)
[2024-10-10] MEDS: Famotidine 20 MG Tablet 40 MG PO (21:22)
[2024-10-10] MEDS: Ceftriaxone 1 GM/50 ML BAG IV (21:25)
[2024-10-10] MEDS: Azithromycin 500 MG in 0.9% Normal Saline (250mL Bag) 250 ML 255 MG IV (22:43)
[2024-10-11] VITALS (8 sets, daily range): BP systolic 111–155; BP diastolic 59–78; PULSE 78–90; RESP 16–18; TEMP 36.6–37.2; O2SAT 88–98; BMI 33.5
[2024-10-11] MEDS: Levothyroxine 50 MCG Tablet PO (05:24)
[2024-10-11 05:44] LABS: Absolute Lymphocyte Count 1.73 X10^3/uL (0.83-4.51); Absolute Neutrophil Count 7.5 X10^3/uL (2.0-7.7); Basophil# 0.03 X10^3/uL; Basophil% 0.3 % (0-1); Eosinophil# 0.17 X10^3/uL; Eosinophils% 1.6 % (0-5); Hematocrit 34.9 % (37-47); Hemoglobin 11.8 g/dL (12.0-15.0); Lymphocyte # 1.73 X10^3/ul (0.83-4.51); Lymphocyte % 16.3 % (19-41); Mean Corp Hgb Conc 33.8 g/dL (32-36); Mean Corpuscular Hgb 30.8 pg (27.0-32.0); Mean Corpuscular Volume 91.1 fL (81-99); Mean Platelet Vol. 9.9 fl (6.2-12.0); Monocyte# 1.09 X10^3/uL; Monocyte% 10.3 % (0-10); NRBC Flagged by Analyzer 0 % (0-5); Neutrophil # 7.54 X10^3/uL (2.7-7.7); Neutrophil % 70.9 % (47-70); Platelet Count 264 K/mm3 (150-450); RBC Distribution Width CV 12.8 % (11.6-14.6); RBC Distribution Width SD 42.5 fl (35.1-43.9); Red Blood Count 3.83 M/mm3 (4.2-5.4); White Blood Count 10.6 K/mm3 (4.4-11.0)
[2024-10-11 06:19] LABS: Anion Gap 11 (5-15); BUN 12 mg/dL (4-19); BUN/Creat Ratio 12.6 RATIO (10-20); Calcium,Total 8.5 mg/dL (7.6-11.0); Carbon Dioxide 22.1 mmol/L (21.0-32.0); Chloride 101 mmol/L (98-108); Creatinine, Serum 0.98 mg/dL (0.70-1.20); EST Glomerular Filtration Rate 58 (>60); Estimated Creatinine Clearance 47.16 ml/min (50-250); Glucose 121 mg/dL (70-99); Sodium Level 134 mmol/L (133-145)
--- NOTE | 2024-10-11 07:46 | CPS ---
Pt was offered aerosol rx this am but refused. Pt stated she takes them once in the evening. Pt was asked if she would like one now or to wait and then take it after dinner this evening. Pt stated she wanted to wait and take it tonight.
[2024-10-11] MEDS: FLUoxetine 20 MG Capsule PO (10:23)
[2024-10-11] MEDS: Tolterodine Tartrate 4 MG CAP.SA PO (10:23)
[2024-10-11] MEDS: Pantoprazole Sodium 40 MG Tablet PO (10:23)
[2024-10-11] MEDS: Vibegron 75 MG TABLET PO (10:23)
[2024-10-11] MEDS: Carvedilol 6.25 MG Tablet PO ×2 (10:23→16:16)
[2024-10-11] MEDS: Ezetimibe 10 MG Tablet PO (10:23)
[2024-10-11] MEDS: Enoxaparin 40 MG/0.4 ML Syringe SC (10:26)
--- NOTE | 2024-10-11 14:00 | CASEMGMT ---
RN CM in to discuss needs at discharge. Therapy currently working with patient and recommending SNF at discharge. RN CM and therapy discussed benefits of SNF at discharge. Patient agreeable to review SNF list. Patient had no further questions or concerns. SERENITY HEMPHILL updated DC assistant business manager requesting SNF list. SERENITY HEMPHILL updated SW. CM will continue to follow this patient and plan for a safe discharge.
--- NOTE | 2024-10-11 14:06 | CASEMGMT ---
Discharge Planning A list of?SNF providers including quality and resource use data and consistent with the patient's preferred geographic region, medical needs, and insurance network was created in [facility] Guide.? This list was provided to the pt. Eladia Bullock, Discharge Planning Asst.
--- NOTE | 2024-10-11 15:43 | CASEMGMT ---
SW met with patient. Introduced self and role at [facility]. Patient told SW it was okay to call her daughter. SW called patient's daughter Netta. Introduced self and role at [facility]. SW explained therapy is recommending patient go somewhere for rehab. SW explained SW left a list of facilities in patient's room that take her insurance. Netta does not want TCU for patient. However, she was curious if patient could go to the Rehab Unit as she has been there before. SW told her SW will make a referral to the Rehab Unit and follow up with her tomorrow. Netta said she will talk with her brother and mom about what other facility if Rehab cannot take her. SW made a referral to [facility] Rehab Unit. Melissa ROCHA
--- NOTE | 2024-10-11 16:08 | PN_ITS ---
Subjective Subjective Patient seen and examined. She was on 2 L of oxygen and was requesting to go home today. However subsequently patient did seem a bit confused and weak. She did not do very well with physical therapy so decision made to hold off on discharge. She has otherwise remained hemodynamically stable and had no complaints today. Objective Data Objective Data Vital Signs: Vital Signs Temp Pulse Resp BP Pulse Ox O2 Del Method O2 Flow Rate 98.0 F 84 16 111/59 L 95 Nasal Cannula 2 10/11/24 15:00 10/11/24 15:00 10/11/24 15:00 10/11/24 15:00 10/11/24 15:10/11/24 15:00 10/11/24 15:00 Oxygen Flow Rate (L/min) 2 Oxygen Delivery Method Nasal Cannula Weight: 192 lb 7.417 oz Body Mass Index (BMI) 33.5 Intake & Output: Intake and Output for Last 24 Hours 10/09/24 10/10/24 10/11/24 23:59 23:59 23:59 Intake Total 1050 / 1050 1880 / 1880 600 / 600 Output Total 950 / 950 900 / 900 Balance 1050 / 1050 930 / 930 -300 / -300 Medical Nutrition Assessment Dietitian: Malnutrition Criteria Met Start: 10/10/24 12:00 Freq: Status: Active Protocol: Document 10/10/24 15:19 SB (Rec: 10/10/24 15:19 SB [id number]) Nutrition Malnutrition Evidence of Yes Malnutrition Exists Malnutrition (severe Acute Illness/Injury ): Evidenced By Suboptimal Energy Intake (Moderate),Weight Loss (Severe ) Clinical Problem Acute Disease or Injury Related Malnutrition Etiology severe related to inadequate oral intake Signs/Symptoms as evidenced by PO meeting <50% of estimated nutrition needs x 1-2 months and 5% unintentional weight loss x 2 .5 weeks. Status Active Problem Recommendation Dietitian Adjust to regular diet due to signs and symptoms of Recommendations/ malnutrition. Changes Will order 120ml EPHP 4x daily with medpass. Will monitor weight trends. Lab / Micro Data 10/11/24 05:15 10/11/24 05:15 Labs: Laboratory Results - last 24 hr 10/11/24 05:15: WBC 10.6, RBC 3.83 L, Hgb 11.8 L, Hct 34.9 L, MCV 91.1, MCH 30.8, MCHC 33.8, RDW Std Deviation 42.5, RDW Coeff of Dionne 12.8, Plt Count 264, MPV 9.9, Immature Gran % (Auto) 0.600, Neut % (Auto) 70.9 H, Lymph % (Auto) 16.3 L, [place] % (Auto) 10.3 H, Eos % (Auto) 1.6, Baso % (Auto) 0.3, Absolute Neuts (auto) 7.5, Absolute Lymphs (auto) 1.73, Nucleated RBC % 0, Sodium 134, Potassium 4.0, Chloride 101, Carbon Dioxide 22.1, Anion Gap 11, BUN 12, Creatinine 0.98, Estim Creat Clear Calc 47.16 L, Est GFR (MDRD) Non-Af 58 L, BUN/Creatinine Ratio 12.6, Glucose 121 H, Calcium 8.5 Micro: Microbiology 10/10/24 11:56 Sputum, Expectorated/Coughed Gram Stain - Final 10/09/24 20:28 Blood Culture (Wb) - Venous Blood Culture - Preliminary No growth in 48 hours. 10/09/24 20:56 Blood Culture (Wb) - Right Hand Blood Culture - Preliminary No growth in 48 hours. 10/09/24 21:38 Urine, Catheterized Urine Culture - Final Escherichia coli 10/10/24 06:15 Urine, Clean Catch Legionella Antigen - Final 10/10/24 06:15 Urine, Clean Catch Streptococcus pneumoniae Antigen (M - Final 10/09/24 23:40 Mucosa - Nasopharyngeal Respiratory Panel (PCR) - Final 10/09/24 20:37 Mucosa - Nose SARS-CoV-2, Influenza & RSV (PCR) - Final Physical Exam Const alert, oriented x3 and no apparent distress General Appearance: cooperative HEENT normocephalic, head/scalp atraumatic, moist oral mucous membranes and oropharynx normal Eyes PERRL and EOMs intact bilaterally Neck supple and no JVD Lymph Lymphatic: no lymphedema noted Resp Resp Narrative: Mildly diminished breath sounds bibasilarly. No wheezes or crackles. On 2 L of oxygen. Cardio regular rate, regular rhythm, S1 normal heart sound, S2 normal heart sound and no murmurs GI normal to inspection, nondistended, normoactive bowel sounds, soft to palpation, non-tender and non-distended Extremity normal capillary refill, no clubbing, cyanosis or edema and no calf tenderness General Extremity: no tenderness to palpation of joints or extremities Skin General Skin Exam: no breakdown Neuro CN's II-XII intact bilaterally and no focal motor deficits Motor Exam: strength 5/5 throughout and general weakness Psych thought process normal and cooperative Appearance: appropriate Assessment & Plan Assessment/Plan (1) Acute cystitis without hematuria: PLAN: Plan #Acute encephalopathy due to hypoxia in the setting of pneumonia * Pneumonia thought to be likely committee acquired pneumonia * On 3 L of oxygen. On IV ceftriaxone and azithromycin. * Breathing treatments bronchodilators. Sputum cultures pending. Urine for Strep and Legionella negative. * Breathing treatments with bronchodilators. Titrate oxygen to maintain saturation above 90% * switch to PO cefdinir 300mg bid at discharge * #UTI: * has a history of neurogenic bladder. * Urine cultures growing E. coli which is pansensitive. * on IV ceftriaxone * #Anxiety and depression: on prozac #History of dementia: PT/OT On board. Fall precautions #Hypothyroidism: on synthroid #Class I obesity: BMi is 33.3. Complicates acute care, expected recovery and prognosis. # History of asthma: Not in exacerbation. Breathing treatment with bronchodilators. #Hypertension: On Coreg. IV hydralazine. #Hyperlipidemia: On ezetimibe DVT prophylaxis: Lovenox Disposition: anticipate dc over the next 24-48 hours. Patient did not discharge today because she felt weak and tired. To work with physical therapy today. Charges/Coding Visit Charges Inpatient E&M: 87427 Subs Hosp L2
[2024-10-11] MEDS: Ensure Plus High Protein 120 ML LIQUID PO ×2 (16:16→22:21)
[2024-10-11] MEDS: Budesonide Respules 0.5 MG/2 ML AMPUL.NEB. INHALATION (20:15)
[2024-10-11] MEDS: Albuterol 2.5 MG/3 ML VIAL.NEB. INHALATION (20:15)
[2024-10-11] MEDS: Ceftriaxone 1 GM/50 ML BAG IV (22:21)
[2024-10-11] MEDS: Famotidine 20 MG Tablet 40 MG PO (22:21)
[2024-10-11] MEDS: Azithromycin 500 MG in 0.9% Normal Saline (250mL Bag) 250 ML 255 MG IV (23:47)
[2024-10-12 02:50] VITALS: BP 156/78; PULSE 88; RESP 18; TEMP 37.1; O2SAT 95
[2024-10-12 03:42] VITALS: BMI 33.1
[2024-10-12] MEDS: Levothyroxine 50 MCG Tablet PO (05:03)
[2024-10-12 07:22] LABS: Absolute Lymphocyte Count 1.47 X10^3/uL (0.83-4.51); Absolute Neutrophil Count 7.4 X10^3/uL (2.0-7.7); Basophil# 0.05 X10^3/uL; Basophil% 0.5 % (0-1); Eosinophil# 0.21 X10^3/uL; Hematocrit 35.6 % (37-47); Hemoglobin 11.8 g/dL (12.0-15.0); Lymphocyte # 1.47 X10^3/ul (0.83-4.51); Lymphocyte % 14.2 % (19-41); Mean Corp Hgb Conc 33.1 g/dL (32-36); Mean Corpuscular Hgb 29.9 pg (27.0-32.0); Mean Corpuscular Volume 90.4 fL (81-99); Mean Platelet Vol. 10.2 fl (6.2-12.0); Monocyte# 1.14 X10^3/uL; NRBC Flagged by Analyzer 0 % (0-5); Neutrophil # 7.41 X10^3/uL (2.7-7.7); Neutrophil % 71.8 % (47-70); Platelet Count 296 K/mm3 (150-450); RBC Distribution Width CV 12.7 % (11.6-14.6); RBC Distribution Width SD 41.8 fl (35.1-43.9); Red Blood Count 3.94 M/mm3 (4.2-5.4); White Blood Count 10.3 K/mm3 (4.4-11.0)
[2024-10-12 08:30] LABS: Anion Gap 11 (5-15); BUN 11 mg/dL (4-19); BUN/Creat Ratio 11.9 RATIO (10-20); Calcium,Total 8.9 mg/dL (7.6-11.0); Carbon Dioxide 23.4 mmol/L (21.0-32.0); Chloride 99 mmol/L (98-108); Creatinine, Serum 0.92 mg/dL (0.70-1.20); EST Glomerular Filtration Rate 63 (>60); Estimated Creatinine Clearance 49.94 ml/min (50-250); Glucose 112 mg/dL (70-99); Sodium Level 134 mmol/L (133-145)
--- NOTE | 2024-10-12 10:01 | CASEMGMT ---
Rehab is not able to take patient. MAX called patient's daughter Netta and let her know. Netta asked that a referral be made to [facility]. MAX asked Eladia gardner/baljit capacity planning analyst to please send a referral to [facility]. MAX will complete a 7000 in HENS. Melissa Morgan SUPERINTENDENT DISTRIBUTION JOSEFINA
--- NOTE | 2024-10-12 10:16 | CASEMGMT ---
Addendum entered by Eladia Bullock 10/12/24 11:10: [facility] has accepted. Eladia Bullock DC Planning Asst. Original Note: Discharge Planning Referral sent to [facility]. Eladia Bullock DC Planning Asst.
[2024-10-12] MEDS: Pantoprazole Sodium 40 MG Tablet PO (10:22)
[2024-10-12] MEDS: Tolterodine Tartrate 4 MG CAP.SA PO (10:22)
[2024-10-12] MEDS: Carvedilol 6.25 MG Tablet PO (10:22)
[2024-10-12] MEDS: Enoxaparin 40 MG/0.4 ML Syringe SC (10:22)
[2024-10-12] MEDS: Vibegron 75 MG TABLET PO (10:22)
[2024-10-12] MEDS: Ezetimibe 10 MG Tablet PO (10:22)
[2024-10-12] MEDS: FLUoxetine 20 MG Capsule PO (10:22)
--- NOTE | 2024-10-12 11:23 | CASEMGMT ---
SW spoke with patient. SW introduced self and role at [facility]. SW explained that SW spoke with her daughter and she would like her to go to [facility] for short term rehab. SW explained it would be only a week or two and then she would go back home. SW told patient she would go today. SW also let patient now that SW will notify her daughter as well. SW notified physician patient can go today. Plan: d/c to [facility] under skilled level of care on a convalescent stay. Physicians will transport patient via wheelchair van. Melissa Morgan BRONZE PLATER JOSEFINA
--- NOTE | 2024-10-12 11:27 | CASEMGMT ---
Discharge Planning Pts daughter (Netta) updated on [facility] acceptance. She would like for us to set up transport. SW updated. Eladia Bullock DC Planning Asst.
--- NOTE | 2024-10-12 11:47 | TREXTCAR_ITS ---
Diet Diet Order/Speech Therapy: INPATIENT Hospital Diet / Speech Therapy Order(s) 10/10/24 15:51 Diet: Regular - General Routine Orders/Code Status Routine Lab Work: CBC and BMP Code Status: DNRCC-A DC O2, CPAP, BIPAP needs Home O2 Discharge instructions: No Therapies Physical Therapy: Eval and Treat Occupational Therapy: Eval and Treat Problem/Diagnosis (1) Acute cystitis without hematuria: Status: Acute Code(s): N30.00 - Acute cystitis without hematuria Allergies/Procedures Done in Hospital Allergies rofecoxib (From Vioxx) Allergy (Verified 10/09/24 20:01) Unknown It's been too long ago to remember what happened Procedures: None Type of Care/Length of Stay Estimated LOS: Convalescent Care Less Than 30 days Type of Care Needed: Skilled Rehab Potential: Good Prognosis: Good Additional Orders/Day of Discharge Day of Discharge: 10/12/24 Dietary and Speech Recommendations Dietitian Recommendations/Changes: Adjust to regular diet due to signs and symptoms of malnutrition. Will order 120ml EPHP 4x daily with medpass. Will monitor weight trends. Discharge Plan Admission Admit Date/Time: 10/09/24 22:46 Attending Provider: Jet Gambino Primary Care Provider: Richard Cruz Consulting Providers: Ayde Powell; Reina Flores Discharge Orders/Prescriptions Prescriptions: New cefdinir 300 mg capsule 300 mg PO BID Qty: 7 0RF azithromycin 500 mg tablet 500 mg PO DAILY 2 Days Qty: 2 0RF Rx Instructions: start on day 2 of therapy Continued famotidine 40 mg Tablet 40 mg PO QHS pantoprazole [address] For Susp In Packet 40 mg PO DAILY mirabegron [Myrbetriq] 50 mg Tablet Extended Release 24 Hr 50 mg PO DAILY ezetimibe 10 mg tablet 10 mg PO DAILY albuterol sulfate 90 mcg/actuation HFA aerosol inhaler 2 inh inhalation Q4H PRN (Reason: SOB,Wheezing) fluoxetine [Prozac] 20 mg capsule 20 mg PO DAILY Qty: 30 0RF carvedilol 6.25 mg Tablet 6.25 mg PO BIDCM Qty: 60 0RF acetaminophen 500 mg Tablet 1,000 mg PO Q8 Qty: 180 0RF levothyroxine 50 mcg Tablet 50 mcg PO DAILY@0600 Qty: 30 0RF solifenacin 10 mg tablet 10 mg PO DAILY polyethylene glycol 3350 [Miralax] 17 gram/dose powder 17 g PO BID PRN (Reason: constipation) alendronate 70 mg tablet 70 mg PO QWEEK tramadol 50 mg tablet 50 mg PO Q8H PRN PRN (Reason: pain) calcium carbonate-vitamin D3 [Oyster Shell Calcium-Vit D3] 500 mg-5 mcg (200 unit) tablet 1 tab PO .QD cholecalciferol (vitamin D3) [Vitamin D3] 50 mcg (2,000 unit) capsule 50 mcg PO DAILY Referrals / Follow Up: Richard Cruz MD [Primary Care Provider] - 10/16/24 10:00 am Disposition Disposition (needs filled in before D/C Order can be placed): Senior Living Facility
--- NOTE | 2024-10-12 12:10 | CASEMGMT ---
Patient is ready for discharge to [facility]. SW completed a 7000 in HENS. Physicians transported patient. Plan: d/c to [facility] under skilled level of care on a convalescent stay. Physicians will transport patient via wheelchair van. Melissa ROCHA
--- NOTE | 2024-10-12 12:36 | CASEMGMT ---
Discharge Plannning Discharge orders, signed med list, and transport time sent to [facility]. Physicians will transport pt by wheelchair at 2:30p. Nursing, SW, pt, and her daughter/HC POA (Netta) updated. Eladia Bullock DC Planning Asst.
--- NOTE | 2024-10-12 17:46 | PCM.DC.SUM ---
Providers Date of Admission: 10/09/24 Primary Care Physician: Dr. Richard Cruz MD Reason For Visit: ENCEPHALOPATHY, UTI, HYPOXIA, ?PNA Diagnosis Discharge Diagnosis (1) Acute cystitis without hematuria: Status: Acute Code(s): N30.00 - Acute cystitis without hematuria Medications at Discharge Home Medications famotidine 40 mg tablet 40 mg PO QHS GERD 06/11/22 mirabegron 50 mg tablet,extended release 24 hr (Myrbetriq) 50 mg PO DAILY OAB 06/11/22 pantoprazole 40 mg granules delayed-release for susp in packet 40 mg PO DAILY GERD 06/11/22 ezetimibe 10 mg tablet 10 mg PO DAILY cholestorol 03/28/23 albuterol sulfate 90 mcg/actuation aerosol inhaler 2 inh inhalation Q4H PRN SOB,Wheezing 08/23/23 acetaminophen 500 mg tablet 1,000 mg (2 x 500 mg) PO Q8 pain #180 tabs 09/07/23 carvedilol 6.25 mg tablet 6.25 mg PO BIDCM heart #60 tabs 09/07/23 fluoxetine 20 mg capsule (Prozac) 20 mg PO DAILY mood #30 caps 09/07/23 levothyroxine 50 mcg tablet 50 mcg PO DAILY@0600 thyroid #30 tabs 09/07/23 solifenacin 10 mg tablet 10 mg PO DAILY bladder 08/12/24 polyethylene glycol 3350 17 gram/dose oral powder (Miralax) 17 g PO BID PRN constipation 08/13/24 alendronate 70 mg tablet 70 mg PO QWEEK bones 10/09/24 calcium 500 mg (as carbonate)-vitamin D3 5 mcg (200 unit) tablet (Oyster Shell Calcium-Vitamin D3) 1 tab PO .QD bones 10/10/24 cholecalciferol (vitamin D3) 50 mcg (2,000 unit) capsule (Vitamin D3) 50 mcg PO DAILY supple 10/10/24 azithromycin 500 mg tablet 500 mg PO DAILY 2 days #2 tabs 10/12/24 cefdinir 300 mg capsule 300 mg PO BID #7 caps 10/12/24 tramadol 50 mg tablet 50 mg PO Q8H PRN PRN pain 20 days #60 tabs 10/12/24 Hospital Course Operations None Procedures None Summary of Care Provided Minutes Spent on Discharge: 32 Hospital Course: Per HPI: The patient is an 79 y/o F w/ PMHx: CKD stage III unclear subtype per GFR trending, Obesity, NAYA noncompliant with PAP therapy, Frequent urinary tract infections with history of neurogenic bladder, Dementia unclear type with unclear behavioral disturbance history, Chart reported history of frequent falls, Asthma, GERD, HLD, Anxiety and Depression, Hypothyroidism, Former tobacco use who presents to the [facility] ED on 10/09/2024 with reported confusion and weakness with general malaise and fatigue not feeling well since Tuesday however she has progressively worsened with decreased oral intake with no recent URI type symptoms, cough, fever, chills, abdominal pain, nausea, emesis or any urinary symptoms but given concerns family brought her in for evaluation. Daughter notes that she has been slow to respond and has intermittently been more confused which is not normal for her. Patient's daughter reportedly also checked her vitals at home and noted that she was mildly hypoxic in the 80s. She also was concern for foul-smelling urine prompting ED evaluation additionally. Workup in the ED included T98.3, heart rate 101, BP 158/89, respiratory rate 18, 81% on room air upon initial presentation with most recent repeat evaluation with T98.3, heart rate 93, BP 154/85, respiratory rate 31, 92% on 3 L nasal cannula, CBC with WBC 11, hemoglobin 13.8, platelet 317 with left shift, VBG with pH 7.48, PO260, O2 saturation 93% on nasal cannula, CMP with chloride 97, carbon dioxide 20.2, anion gap 16, BUN/creatinine 20/1.22, GFR 45, glucose 110, alk phos 152, lactic acid 1.0, urinalysis concerning for urinary tract infection, blood culture x 2 pending per ED, urine culture pending per ED, rapid SARS COVID/influenza/RSV PCR negative, chest x-ray with left base opacity, mild pulmonary vascular congestion and interstitial edema, stable mild cardiomegaly in the ED patient ministered 1 L normal saline, DuoNeb therapy, azithromycin 500 mg IV x 1, Rocephin 1 g IV x 1. Hospital Course: 1. Acute metabolic encephalopathy secondary to community-acquired pneumonia and a pansensitive E. coli UTI?79-year-old female presented to the hospital with a history of frequent urinary tract infections and what appeared to be a left lower lobe infiltrate on chest x-ray. She did have altered mental status which is what prompted her evaluation in the ER. She was started on Rocephin and azithromycin, and her symptoms have greatly improved. Her urine culture did come back with a pansensitive E. coli so she can complete treatment with cefdinir for 3 more days and azithromycin for 2 more days to treat the pneumonia. I did then discuss with family for possible placement and they did accept SNF placement. I discussed with her the plan for discharge today and she expressed understanding and was amenable to going to the [facility] and would like to go today if possible. 2. Chronic kidney disease stage III, anxiety, depression, hypothyroidism, NAYA, GERD, hyperlipidemia, essential hypertension, osteoporosis are all chronic medical conditions which complicate her care. Her home medications were continued where appropriate Physical Exam Narrative General: Alert, Oriented x3, Cooperative, No apparent distress HEENT: Atraumatic, PERRLA, EOMI, Normocephalic Oral: Moist Mucosa Neck: Supple, No JVD Lungs: Diminished, Normal air movement, No rhonchi, No wheeze, No rales Cardiovascular: Regular rate, Regular Rhythm, Normal S1, Normal S2, No murmurs Abdomen: Soft, Non Tender, Non-Distended, No Hepato-splenomegaly Extremities: No edema, Capillary Refill Less than 3 Seconds Skin: No rashes, No breakdown Musculoskeletal: No Tenderness to Palpation of Joints or Extremities Neurological: No focal neurological deficits, moves all extremities Psych/Mental Status: Normal Affect, Appropriate Weight / BMI Weight Weight: 190 lb 4.143 oz Body Mass Index (BMI) 33.1 ABG / Lab / Microbiology Data 10/12/24 06:45 10/12/24 06:45 Laboratory: Laboratory Results - last 24 hr 10/12/24 06:45: WBC 10.3, RBC 3.94 L, Hgb 11.8 L, Hct 35.6 L, MCV 90.4, MCH 29.9, MCHC 33.1, RDW Std Deviation 41.8, RDW Coeff of Dionne 12.7, Plt Count 296, MPV 10.2, Immature Gran % (Auto) 0.500, Neut % (Auto) 71.8 H, Lymph % (Auto) 14.2 L, Peach % (Auto) 11.0 H, Eos % (Auto) 2.0, Baso % (Auto) 0.5, Absolute Neuts (auto) 7.4, Absolute Lymphs (auto) 1.47, Nucleated RBC % 0, Sodium 134, Potassium 4.0, Chloride 99, Carbon Dioxide 23.4, Anion Gap 11, BUN 11, Creatinine 0.92, Estim Creat Clear Calc 49.94 L, Est GFR (MDRD) Non-Af 63, BUN/Creatinine Ratio 11.9, Glucose 112 H, Calcium 8.9 Microbiology: Microbiology 10/10/24 11:56 Sputum, Expectorated/Coughed Gram Stain - Final 10/10/24 11:56 Sputum, Expectorated/Coughed Respiratory Culture - Final Presumptive C albicans 10/09/24 20:28 Blood Culture (Wb) - Venous Blood Culture - Preliminary No growth in 48 hours. 10/09/24 20:56 Blood Culture (Wb) - Right Hand Blood Culture - Preliminary No growth in 48 hours. 10/09/24 21:38 Urine, Catheterized Urine Culture - Final Escherichia coli 10/10/24 06:15 Urine, Clean Catch Legionella Antigen - Final 10/10/24 06:15 Urine, Clean Catch Streptococcus pneumoniae Antigen (M - Final 10/09/24 23:40 Mucosa - Nasopharyngeal Respiratory Panel (PCR) - Final 10/09/24 20:37 Mucosa - Nose SARS-CoV-2, Influenza & RSV (PCR) - Final D/C Instructions DC O2, CPAP, BIPAP Needs Home O2 Discharge instructions: No Meaningful Use Info Meaningful Use Meaningful Use Diagnoses (Choose all that apply): None applicable Ischemic Stroke Statin Dosing Therapy Reference: STATIN DOSE THERAPY REFERENCE: * Patients > 75 years receive moderate or high dose statin therapy. * Patients 75 years or YOUNGER should receive HIGH intensity statin dose unless contraindicated. You will be required to document reason for non-treatment if statin daily dose does not meet guidelines. HIGH DOSE STATIN THERAPY DAILY Atorvastatin > than or = to 40 mg Rosuvastatin > than or = to 20 mg Amlodipine + Atorvastatin > than or = to 2.5/40 mg Ezetimibe + Simvastatin 10/80 mg Simvastatin 80mg Discharge Plan Admission Admit Date/Time: 10/09/24 22:46 Attending Provider: Jet Gambion Primary Care Provider: Richard Cruz Consulting Providers: Ayde Powell; Reina Flores Discharge Orders/Prescriptions Prescriptions: New cefdinir 300 mg capsule 300 mg PO BID Qty: 7 0RF azithromycin 500 mg tablet 500 mg PO DAILY 2 Days Qty: 2 0RF Rx Instructions: start on day 2 of therapy Continued famotidine 40 mg Tablet 40 mg PO QHS pantoprazole [address] For Susp In Packet 40 mg PO DAILY mirabegron [Myrbetriq] 50 mg Tablet Extended Release 24 Hr 50 mg PO DAILY ezetimibe 10 mg tablet 10 mg PO DAILY albuterol sulfate 90 mcg/actuation HFA aerosol inhaler 2 inh inhalation Q4H PRN (Reason: SOB,Wheezing) fluoxetine [Prozac] 20 mg capsule 20 mg PO DAILY Qty: 30 0RF carvedilol 6.25 mg Tablet 6.25 mg PO BIDCM Qty: 60 0RF acetaminophen 500 mg Tablet 1,000 mg PO Q8 Qty: 180 0RF levothyroxine 50 mcg Tablet 50 mcg PO DAILY@0600 Qty: 30 0RF solifenacin 10 mg tablet 10 mg PO DAILY polyethylene glycol 3350 [Miralax] 17 gram/dose powder 17 g PO BID PRN (Reason: constipation) alendronate 70 mg tablet 70 mg PO QWEEK calcium carbonate-vitamin D3 [Oyster Shell Calcium-Vit D3] 500 mg-5 mcg (200 unit) tablet 1 tab PO .QD cholecalciferol (vitamin D3) [Vitamin D3] 50 mcg (2,000 unit) capsule 50 mcg PO DAILY No Action tramadol 50 mg tablet 50 mg PO Q8H PRN PRN (Reason: pain) 20 Days Qty: 60 0RF Referrals / Follow Up: Richard Cruz MD [Primary Care Provider] - 10/16/24 10:00 am Disposition Disposition (needs filled in before D/C Order can be placed): Long-Term Facility Charges/Coding Visit Charges Inpatient E&M: 68460 Disch Hosp >30min
== END 2024-10-12 15:28 | disposition skilled nursing facility (03) | DRG 177 ==
LOC: ED 22:13 → PCU 23:27
PROVIDERS: Student in an Organized Health Care Education/Training Program; Admitting Provider Family Medicine; Emergency Provider Surgery; PCP Family Medicine; Visit Provider Family Medicine
DX: J15.8 Pneumonia due to other specified bacteria (principal); G93.41 Metabolic encephalopathy; E43 Unspecified severe protein-calorie malnutrition; F03.918 Unspecified dementia, unspecified severity, with other behavioral disturbance; F03.94 Unspecified dementia, unspecified severity, with anxiety; N30.00 Acute cystitis without hematuria; N18.30 Chronic kidney disease, stage 3 unspecified; J45.909 Unspecified asthma, uncomplicated; I12.9 Hypertensive chronic kidney disease with stage 1 through stage 4 chronic kidney disease, or unspecified chronic kidney disease; E03.9 Hypothyroidism, unspecified; F32.A Depression, unspecified; Z68.33 Body mass index [BMI] 33.0-33.9, adult; J18.9 Pneumonia, unspecified organism; E78.2 Mixed hyperlipidemia; K21.9 Gastro-esophageal reflux disease without esophagitis; G47.33 Obstructive sleep apnea (adult) (pediatric); Z87.891 Personal history of nicotine dependence; R09.02 Hypoxemia; B96.20 Unspecified Escherichia coli [E. coli] as the cause of diseases classified elsewhere; E66.811 Obesity, class 1; Z79.899 Other long term (current) drug therapy; Z79.890 Hormone replacement therapy; Z79.51 Long term (current) use of inhaled steroids; Z90.49 Acquired absence of other specified parts of digestive tract; Z98.890 Other specified postprocedural states; M81.0 Age-related osteoporosis without current pathological fracture
CPT/HCPCS: 36415; 71046; 80048; 80053; 81001; 82803; 83605; 83880; 84484; 85025; 85610; 85730; 87040; 87070; 87077; 87086; 87088; 87186; 87205; 87449; 87631; 87633; 93005; 94640; 97163; 97166; 97530; 97802; 99285; A4216